=== PATIENT | male | born 1950 | race Caucasian/White ===

== ENCOUNTER → 2017-10-30 | Outpatient (CLI) | payer BC, MEDICARE, SELFPAY | PROVIDERS: Family Provider Family Medicine; Visit Provider Internal Medicine | DX: E83.119 Hemochromatosis, unspecified (principal) | CPT/HCPCS: 76705 ==

== ENCOUNTER → 2018-02-15 12:51 | Outpatient (CLI) | payer BC, MEDICARE, SELFPAY ==
--- NOTE | 2018-02-15 13:01 | CT_ITS ---
EXAM: CT LUNG LOW DOSE WO CONTRAST COMPARISON: None HISTORY: 67-year-old male with 60 pack-year smoking history asymptomatic ORDERING PHYSICIAN: Shirley Almanzar MD PATIENT AGE: 67 years TECHNIQUE: The exam was performed on a GE Light Speed [address] scanner using 2.90 mGy CTDI. A low dose helical CT CHEST was performed on a multi-detector scanner. All CT scans at the facility use one or more dose reduction, viz: automated exposure control; ma/kV adjustment per patient size (including targeted exams where dose is matched to indication; i.e. head); or iterative reconstruction technique. The LDCT was performed in a facility that meets the criteria for the screening program. Data regarding this exam was submitted to ACR which is an approved registry. The order for this exam indicates that it came as a result of a lung cancer screening counseling shard decision-making visit that included all the elements required of such a visit including smoking cessation. The radiologist interpreting this exam meets the [facility] criteria for the LDCT lung cancer screening program. The exam is reported using the Lung-RADS classification scale and reported to the ACR registry. NOTE: This study was performed for the specific purposes of lung cancer screening and is not an alternative to diagnostic chest CT. RADIATION DOSE: CTDI vol(CT dose Index-volume) = 2.90mG DLP (Dose Length Product) = 82.47 mGcm FINDINGS: Centrilobular emphysematous changes. There are scattered calcified and noncalcified pulmonary nodules. Noncalcified nodules include a well-circumscribed 8 mm nodule is present in the right upper lobe medially, 4 mm nodule right middle lobe, 3 mm nodule right middle lobe, 3 mm nodule right lower lobe, 4 mm nodule left upper lobe subpleural region, 5 mm subpleural nodule left upper lobe laterally. There are atelectatic or fibrotic changes in the left lung base with subpleural thickening in the left lower lobe laterally with some coarse calcification. Fibrotic changes are present in the lung bases. Scattered calcified nodes in the mediastinum and mamie. Coronary artery calcifications are noted. IMPRESSION: 1. Lung RADS Category: 3, probably benign right upper lobe nodule and other smaller nodules 2. Other findings: Emphysema, COPD, coronary artery calcifications and old granulomatous disease RECOMMENDATIONS: [address] follow-up
== END ==
PROVIDERS: Family Provider Family Medicine; PCP Physician Assistant; Visit Provider Family Medicine
DX: Z87.891 Personal history of nicotine dependence (principal); Z12.2 Encounter for screening for malignant neoplasm of respiratory organs

== ENCOUNTER → 2018-04-18 13:24 | Outpatient (CLI) | payer BC, MEDICARE, SELFPAY ==
[2018-04-18 14:30] LABS: Ferritin 61 ng/mL (8-388)
== END ==
PROVIDERS: Visit Provider Physician Assistant
DX: E83.110 Hereditary hemochromatosis (principal)
CPT/HCPCS: 36415; 82728

== ENCOUNTER → 2018-06-19 08:26 | Outpatient (CLI) | payer BC, SELFPAY ==
--- NOTE | 2018-06-19 08:30 | CT_ITS ---
CT abdomen w con CLINICAL INDICATION: Pancreatic mass evaluation, abnormal ultrasound ITS.REASON: PACREATIC LESION ORDERING PHYSICIAN: Pito Antonio PATIENT AGE: 68 years COMPARISON: 07/28/2016 TECHNIQUE: Axial images obtained with sagittal and coronal reformats. All CT scans at the facility use one or more dose reduction, viz: automated exposure control, ma/kV adjustment per patient size (including targeted exams where dose is matched to indication, i.e. head), or iterative reconstruction technique. PROCEDURE: Oral Contrast: None IV Contrast: 75 mL of [id number]. FINDINGS: Images are obtained at 30 seconds, 60 seconds, and 5 minute delayed There are mild atelectatic or fibrotic changes in the lung bases.. There is some mild pleural calcification in the left lower lateral hemithorax which was present on the previous exam and not significantly changed. There is slight increased pleural thickening in this area with some pleural calcification present somewhat more inferior and medial to this region. There are coronary artery calcifications There is a stable 5 mm isodensity in the hepatic dome anteriorly. The spleen and adrenal glands are unremarkable. There is a small hiatal hernia. There remains a mild fullness in the pancreatic tail. This however is felt to represent a normal variant not significant change from 07/28/2016. No pancreatic masses, ductal dilatation, or peripancreatic fluid collections evident. There are gallstones noted. No renal mass or hydronephrosis evident. There is a 1 cm cyst in the left kidney anteriorly. There is mild dilatation of the in the renal abdominal aorta and up to 2.5 cm. Previously measured 2.3 cm. IMPRESSION: 1. No change mild fullness in the pancreatic tail. No pancreatic mass or ductal dilatation evident. 2. Cholelithiasis. 3. Mild pleural thickening of the left lower hemithorax posterolaterally with some calcification. Thickening slightly greater when compared to the previous exam. This may be of inflammatory in nature. Short-term CT follow-up in 3 months suggested as neoplasm/mesothelioma be included in the differential diagnosis.. Standard chest CT is suggested without and with contrast in August 2018 which would conform to the LDCT CT exam of 02/15/2018 which recommended a 6 month follow-up
[2018-06-19 08:59] LABS: Blood Urea Nitrogen 15 mg/dL (7-18); Creatinine,Serum 1.09 mg/dL (0.70-1.30); Estimated Glomerular Filt Rate 67 ml/min (>60); GFR (African American) 82 ML/MIN (>60)
== END ==
PROVIDERS: Family Provider Family Medicine; PCP Physician Assistant; Visit Provider Internal Medicine Gastroenterology
DX: K86.9 Disease of pancreas, unspecified (principal)
CPT/HCPCS: 36415; 74160; 82565; 84520; Q9967

== ENCOUNTER → 2018-06-27 09:48 | Outpatient (CLI) | payer BC, SELFPAY ==
[2018-06-27 10:43] VITALS: PULSE 75
== END ==
PROVIDERS: Family Provider Family Medicine; PCP Family Medicine; Visit Provider Family Medicine
DX: R06.09 Other forms of dyspnea (principal)
CPT/HCPCS: 94060; 94640; 94726; 94729

== ENCOUNTER → 2018-12-11 13:51 | Outpatient (CLI) | payer BC, SELFPAY ==
[2018-12-11 15:07] LABS: Ferritin 42 ng/mL (8-388)
== END ==
PROVIDERS: Visit Provider Physician Assistant
DX: E83.119 Hemochromatosis, unspecified (principal)
CPT/HCPCS: 36415; 82728

== ENCOUNTER → 2018-12-31 15:04 | Outpatient (CLI) | payer BC, SELFPAY ==
--- NOTE | 2018-12-31 15:09 | CT_ITS ---
CT chest wo con HISTORY: Pulmonary nodule follow-up, Follow-up abnormal CT scan. Pulmonary nodule. Emphysema, previous smoker ITS.REASON: ABNORMAL CXR, CHEST PAIN ORDERING PHYSICIAN: Shirley Almanzar MD PATIENT AGE: 68 years COMPARISON: 02/15/2018 Technique: Axial images obtained with sagittal and coronal reformats. All CT scans at the facility use one or more dose reduction, viz: automated exposure control, ma/kV adjustment per patient size (including targeted exams where dose is matched to indication, i.e. head), or iterative reconstruction technique. FINDINGS: There are scattered small axillary and mediastinal lymph nodes many of which contain calcification. Calcified hilar nodes are present. There are coronary artery calcifications. Normal heart size. No evidence of pericardial effusion. Centrilobular emphysema/COPD. Diffuse small reticular nodular opacities noted.. There are numerous bilateral pulmonary nodules some of which are calcified. An 8 mm nodule present in the right upper lobe medially containing a small central focus of calcification. A flat like nodular opacity is present in the right upper lobe laterally at 7 x 3 mm. There is a pleural-based nodular density in the left lower lobe laterally at 2 x 1.1 cm. This is similar to the previous exam. There is a partially calcified area of pleural thickening in the left lower lobe posterior laterally which is not significantly changed. Pleural thickening involves the left lung base posteriorly unchanged. A 4 mm noncalcified nodule present left lung base posteriorly medially. There are mild atelectatic changes in the left lower lobe Upper abdominal images shows cholelithiasis and nonobstructing bilateral renal calculi. IMPRESSION: 1. There are multiple bilateral pulmonary nodular opacities noted. These are nonspecific. Some are calcified. Pleural thickening is noted in the left lower chest posteriorly and posterior laterally which appears similar when compared to the previous exam. Continued follow-up is recommended to confirm stability. Continued six-month follow-up suggested. 2. Cholelithiasis. 3. Nonobstructing bilateral renal calculi
== END ==
PROVIDERS: PCP Family Medicine; Visit Provider Family Medicine
DX: R07.9 Chest pain, unspecified (principal); R93.89 Abnormal findings on diagnostic imaging of other specified body structures
CPT/HCPCS: 71250

== ENCOUNTER 2019-01-01 15:19 | Inpatient (IN) ==
--- NOTE | 2019-01-01 15:45 | Emergency Department Note ---
ED Disposition Clinical Impression: Afib, Atrial fibrillation with rapid ventricular response Disposition: Admitted as Observation Condition on Discharge: Good Referrals: Shirley Almanzar MD [Primary Care Provider] - Time of Disposition: 18:22 - Critical Care Critical Care Time: No Attestation: On 01/01/19, the high probability of a clinically significant, sudden or life t hreatening deterioration of the following system(s) required my full and direct attention, intervention and personal management. The time I documented below is in addition to time spent performing reported procedures but includes the following listed in this critical care notation. Medical Decision Making - Medical Records Medical records reviewed: Yes: I reviewed the patient's medical records. - Woodrow Inquiry Pt receiving controlled substance: No Woodrow was queried for this patient: No Vital Signs: 01/01/19 15:21 01/01/19 16:10 01/01/19 16:36 Temperature 98.4 F Temperature Source Oral Pulse Rate [Right] 140 H 110 H 149 H Respiratory Rate 20 20 18 Blood Pressure [Left Arm] 121/73 118/70 95/65 L Blood Pressure Mean [Left Arm] 89 86 75 Blood Pressure Source [Left Arm] Automatic Cuff Automatic Cuff Automatic Cuff Blood Pressure Position [Left Arm] Supine Sitting Sitting 02 Sat by Pulse Oximetry 96 92 L Oxygen Delivery Method Room Air Room Air 01/01/19 17:34 Temperature Temperature Source Pulse Rate [Right] 149 H Respiratory Rate Blood Pressure [Left Arm] 105/67 L Blood Pressure Mean [Left Arm] 79 Blood Pressure Source [Left Arm] Automatic Cuff Blood Pressure Position [Left Arm] Sitting 02 Sat by Pulse Oximetry 93 L Oxygen Delivery Method Room Air - Lab Data Lab results reviewed: Yes: I reviewed the patient's lab results. Lab Results 01/01/19 15:30: WBC 2.5 L, RBC 5.09, Hgb 16.7, Hct 48.9, MCV 96.2 H, MCH 32.9 H, MCHC 34.2, RDW 13.8, Plt Count 285, MPV 6.9 L, Neut % (Auto) 60.5, Lymph % (Auto) 24.4, [place] % (Auto) 2.5, Eos % (Auto) 11.0, Baso % (Auto) 1.6, Neut # (Auto) 1.5 L, Lymph # (Auto) 0.6 L, [place] # (Auto) 0.1, Eos # (Auto) 0.3, Baso # (Auto) 0.0 01/01/19 15:30: Sodium 135 L, Potassium 3.7, Chloride 100, Carbon Dioxide 26, Anion Gap 12.7, BUN 18, Creatinine 1.19, Estimated Creat Clear 66, Estimated GFR 61, Est GFR ( Amer) 74, Glucose 299 H, Calcium 9.4, Magnesium 2.2, Total Bilirubin 1.0, AST 27, ALT 28, Alkaline Phosphatase 190 H, Troponin I < 0.02, Total Protein 8.5 H, Albumin 3.7, Globulin 4.8 H, Albumin/Globulin Ratio 0.8 L, TSH 3.06 Result diagrams: 01/01/19 15:30 01/01/19 15:30 Orders (Tests/Meds): ED MEDICATIONS Generic Name Dose Route Start Last Admin Trade Name Freq PRN Reason Stop Dose Admin Enoxaparin Sodium 80 mg 01/01/19 17:45 01/01/19 18:03 Lovenox 80mg/0.8ml Syringe SQ 01/31/19 17:44 80 mg Q12H MARLEN Administration Diltiazem HCl 125 mg/ Sodium 125 mls @ 5 mls/hr 01/01/19 15:30 01/01/19 15:36 Chloride IV 01/31/19 15:29 5 mls/hr .Q25H MARLEN Administration Protocol 5 MG/HR Sodium Chloride 500 mls @ 999 mls/hr 01/01/19 16:45 01/01/19 16:39 Sod Chlor 0.9% 1000ml Bag IV 01/01/19 17:15 999 mls/hr .Q31M MARLEN Administration Discontinued Medications Generic Name Dose Route Start Last Admin Trade Name Freq PRN Reason Stop Dose Admin Digoxin 250 mcg 01/01/19 16:09 01/01/19 18:03 Digoxin Injection 0.25mg/Ml IV 01/01/19 16:10 250 mcg ONCE ONE Administration Diltiazem HCl 10 mg 01/01/19 15:37 01/01/19 15:41 Cardizem 125mg/25ml Vial IV 01/01/19 15:38 10 mg ONCE ONE Administration ORDERS Category Date Time Status CA echo doppler complete Routine Y 01/02/19 08:00 Ordered EKG Request [ECG Request by /Nse] Stat Y 01/01/19 15:39 Ordered Chest Pain HPI - General Chief Complaint: Chest Pain Stated Complaint: "heart doesnt feel right" Time Seen by Provider: 01/01/19 15:42 Mode of Arrival: Ambulatory Limitations: No Limitations Description of Symptoms (Recalled from ER Triage Doc. by RN): patient presents to er with "heart feeling strange and not jsut right." pt denies that his chest is hurting but states that he is having a numb type of feeling. - Related Data Home Medications Medication Instructions Recorded Confirmed Atenolol [Atenolol 25mg Tab] 1 tab PO BID 01/01/19 01/01/19 Ezetimibe 1 tab PO DAILY 01/01/19 01/01/19 Insulin Lispro Protamin/Lispro 12 unit SQ BID 01/01/19 01/01/19 [HumaLOG Mix 75/25 3mL flexpen] Levothyroxine Sodium [Synthroid 25 mcg PO DAILY 01/01/19 01/01/19 25mcg (0.025mg) tablet] Metformin HCl 1 tab PO BID 01/01/19 01/01/19 Allergies Allergy/AdvReac Type Severity Reaction Status Date / Time cephalexin [From Keflex] Allergy Unknown Verified 01/01/19 15:39 allergy reaction [facility] History - Hepatitis A Screen Drug use history?: No High risk sexual behaviors?: No History of sexually transmitted infection?: No Currently employed?: No Childcare worker?: No Do you have indoor plumbing?: Yes Do you have electricity?: Yes Attestation statement:: This patient has been screened for Hepatitis A risk factors. I have reviewed the patient's past medical history: Yes Medical History: Reports:: Diabetes Mellitus Type 2 Denies:: Diabetes Mellitus Type 1, Internal Pacemaker Other Surgeries: No: Pacemaker Amputation: No Fractures: No - Social History Educational Level: Completed High School Smoking Status: Former smoker Tobacco Type: cigarettes # Packs/Day (cigarettes): 1 Smoking End Date: 2004 Alcohol Intake: never Occupational Status: other Household Members: spouse - Psychiatric History Expresses thoughts of harming self/others: None Suicide Plan Description: No Plan ROS Obtained: Yes All systems reviewed & no additional complaints - Constitutional Constitutional: Reports system reviewed and no additional complaints, except as docu, Denies chills, Denies fever(s) - Eyes Eyes: Reports system reviewed and no additional complaints, except as docu, Denies change in vision - ENT Ears, Nose, Mouth, and Throat: Denies sore throat, Denies throat swelling - Cardiovascular Cardiovascular: Reports system reviewed and no additional complaints, except as docu, Denies chest pain, Denies chest pain at rest, Reports irregular heart rhythm, Denies leg edema, Reports lightheadedness, Reports rapid heart rate - Gastrointestinal Gastrointestingal: Reports: system reviewed and no additional complaints, except as docu. Denies: abdominal pain, diarrhea, nausea - Genitourinary Male Genitourinary: Reports system reviewed and no additional complaints, except as docu, Denies difficulty urinating, Denies flank pain - Musculoskeletal Musculoskeletal: Denies joint pain, Denies joint stiffness, Denies joint swelling, Denies numbness, Denies stiffness, Denies tingling - Integumentary/Breasts Skin/Breast: Denies rash, Denies skin pain - Neurologic Neurologic: Denies unsteadiness, Denies dizziness, Denies focal weakness, Denies syncope, Denies tingling, Denies tremor(s), Denies vertigo, Denies weakness Physical Exam - General General appearance: alert, in no apparent distress - Head Head exam: atraumatic, normocephalic - Eye Eye exam: Present: normal appearance, PERRL, EOMI - ENT ENT exam: Present: normal exam, normal oropharynx, mucous membranes moist, TM's normal bilaterally, normal external ear exam - Neck Neck exam: Present: normal inspection, full ROM, trachea midline. Absent: meningismus, lymphadenopathy - Chest Chest inspection: Present: normal inspection, symmetric chest wall rise. Absent: tenderness - Respiratory Respiratory exam: Present: normal lung sounds bilaterally. Absent: respiratory distress - Cardiovascular Cardiovascular exam: Present: tachycardia. Absent: regular rate, normal rhythm, JVD - Abdominal Exam Abdominal exam: Present: soft, normal bowel sounds. Absent: distention, tenderness, guarding - exam: Present: normal inspection - Extremities Exam Extremities exam: Present: normal inspection, full ROM, normal capillary refill. Absent: calf tenderness - Back Exam Back exam: Present: normal inspection. Absent: tenderness - Neurological Exam Neurological exam: Present: alert, oriented X3 - Psychiatric Psychiatric exam: Present: normal affect, normal mood - Skin Skin exam: Present: warm, dry, intact, normal color - Lymphatic Lymphatic Findings: no adenopathy
[2019-01-01 15:51] LABS: Basophils % 1.6 % (0.1-2.0); Eosinophils # 0.3 K/mm3 (0.0-0.4); Hematocrit 48.9 % (42.0-52.0); Hemoglobin 16.7 g/dL (14.1-18.0); Lymphocytes # 0.6 K/mm3 (0.7-4.5); Lymphocytes % 24.4 % (10-50); Mean Corpuscular HGB Conc 34.2 g/dL (31.8-35.4); Mean Corpuscular Hemoglobin 32.9 pg (27.0-31.2); Mean Corpuscular Volume 96.2 fl (80-94); Mean Platelet Volume 6.9 fl (7.4-10.4); Monocytes # 0.1 K/mm3 (0.1-1.0); Monocytes % 2.5 % (1.7-9.3); Neutrophils # 1.5 K/mm3 (1.8-7.8); Neutrophils % 60.5 % (37.0-80.0); Platelet Count 285 K/mm3 (142-424); Red Blood Count 5.09 M/mm3 (4.60-6.20); Red Cell Distribution Width 13.8 % (11.5-17.5); White Blood Count 2.5 K/mm3 (4.8-10.8)
[2019-01-01 16:07] LABS: Alanine Aminotransferase 28 U/L (12-78); Albumin Level 3.7 gm/dL (3.4-5.0); Albumin/Globulin Ratio 0.8 (1.1-1.8); Alkaline Phosphatase 190 U/L (46-116); Anion Gap 12.7 mEq/L (5-15); Blood Urea Nitrogen 18 mg/dL (7-18); Calcium 9.4 mg/dL (8.5-10.1); Carbon Dioxide 26 mmol/L (21.0-32.0); Chloride 100 mmol/L (98-107); Globulin 4.8 gm/dl (1.3-3.2); Glucose 299 mg/dL (74-106); Sodium 135 mmol/L (136-145); Thyroid Stimulating Hormone 3.06 uIU/ml (0.358-3.740); Total Protein,Serum 8.5 gm/dL (6.4-8.2)
[2019-01-01 16:11] LABS: Potassium 3.7 mmoL/L (3.5-5.1)
[2019-01-01 16:12] LABS: Aspartate Amino Transferase 27 U/L (15-37)
--- NOTE | 2019-01-01 16:16 | Consult Report ---
History of Present Illness Consult date: 01/01/19 Requesting physician: Shirley Almanzar Consult reason: atrial fibrillation Chief complaint: Palpitations Additional Medical History:: 1. Hypertension, controlled on meds. 2. Diabetes mellitus, treated for 5 years, the last 2 with insulin 3. Hypothyroidism, on replacement. 4. History of atrial flutter and atrial fibrillation starting in 2011, controlled on atenolol therapy 5. History of abnormal stress test 2011 A. Cardiac cath reportedly without significant disease or need for intervention, 2011 6. Hemochromatosis, controlled with regular phlebotomy 7. History of nephrolithiasis 8. 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 Degenerative arthritis of the knees 10. History of tobacco use discontinued approximately 1999, approximately 07-26-mtnp-year history A. Presumed COPD History of present illness: 68-year-old white male with history of hypertension, diabetes and atrial fibrillation presented to the emergency department with 1-2-week history of intermittent palpitations. Patient describes the symptoms as a fluttering in the chest with some shortness of breath. He relates most of the episodes occur around significant stress in his life. Today while trying to get a bull into a trailer he developed the sensation in the chest with some lightheadedness but no dizziness. Patient came to the emergency department for further evaluation where heart rate was noted to be approximately 190 bpm. He has been started on IV Cardizem with improvement in heart rate into the 150s. EKG shows atrial fibrillation with a rapid ventricular response. Patient denies missing any dose of his medications. He does relate over the last week he has had one episode each day of the fast heart rate but it has not been sustained. Cardiology consulted for evaluation recommendations. Patient does relate occasional left arm discomfort with some left-sided jaw discomfort with the palpitations. Again he states this does not seem to be exertion related only related to the episodes of palpitations. [facility] History Medical History: Reports:: Diabetes Mellitus Type 2 Denies:: Diabetes Mellitus Type 1, Internal Pacemaker *Have you ever received a pneumonia vaccine?: Yes *Have you received a flu vaccine this season?: Yes Other Surgeries: No: Pacemaker Amputation: No Fractures: No - *Social History Educational Level: Completed High School Smoking Status: Former smoker Tobacco Type: cigarettes # Packs/Day (cigarettes): 1 Smoking End Date: 2004 Alcohol Intake: never *Occupational Status:: other Household Members: spouse *Travel in the last 8 weeks: None - Psychiatric History Expresses thoughts of harming self/others: None Suicide Plan Description: No Plan Family Hx:: Non-contributory Meds Home Medications Medication Instructions Recorded Confirmed Type Atenolol [Atenolol 25mg Tab] 1 tab PO BID 01/01/19 01/01/19 History Ezetimibe 1 tab PO DAILY 01/01/19 01/01/19 History Insulin Lispro Protamin/Lispro 12 unit SQ BID 01/01/19 01/01/19 History [HumaLOG Mix 75/25 3mL flexpen] Levothyroxine Sodium [Synthroid 25 mcg PO DAILY 01/01/19 01/01/19 History 25mcg (0.025mg) tablet] Metformin HCl 1 tab PO BID 01/01/19 01/01/19 History Allergies Allergy/AdvReac Type Severity Reaction Status Date / Time cephalexin [From Keflex] Allergy Unknown Verified 01/01/19 15:39 allergy reaction Review of Systems - *Cardiovascular Reports rapid, pounding, or irregular heartbeat, Reports fast heart rate - *Respiratory Reports shortness of breath with activity - *Gastrointestinal Denies abdominal pain, Denies loose stools - *Genitourinary Denies blood in urine - *Musculoskeletal Reports joint pain - *Neurologic Denies unsteadiness, Denies dizziness, Denies localized weakness, Denies numbness, Denies fainting, Denies tingling, Denies tremor(s), Denies dizziness, Denies weakness Exam Vital signs and Labs for Last 24 Hours: Temp Pulse Resp BP Pulse Ox 98.4 F 140 H 20 121/73 96 01/01/19 15:21 01/01/19 15:21 01/01/19 15:21 01/01/19 15:21 01/01/19 15:21 Laboratory Results - last 24 hr 01/01/19 15:30: WBC 2.5 L, RBC 5.09, Hgb 16.7, Hct 48.9, MCV 96.2 H, MCH 32.9 H, MCHC 34.2, RDW 13.8, Plt Count 285, MPV 6.9 L, Neut % (Auto) 60.5, Lymph % (Auto) 24.4, [place] % (Auto) 2.5, Eos % (Auto) 11.0, Baso % (Auto) 1.6, Neut # (Auto) 1.5 L, Lymph # (Auto) 0.6 L, [place] # (Auto) 0.1, Eos # (Auto) 0.3, Baso # (Auto) 0.0 I & O for Last 24 hours: Intake & Output 12/30/18 12/31/18 01/01/19 01/02/19 11:59 11:59 11:59 11:59 Weight 170 lb - *Routine HEENT Exam Head: Present: normocephalic Eye: Present: EOMI, PERRL ENT: Present: mucous membranes moist - *Routine Neck Exam Present: supple. Absent: JVD, carotid bruit - *Routine Respiratory Exam Present: decreased breath sounds, rhonchi. Absent: accessory muscle use, rales, wheezes - *Routine Cardiovascular Exam Present: tachycardia, irregularly irregular. Absent: murmur, gallop, rubs - *Routine Abdominal Exam Present: soft. Absent: tenderness, distended, guarding - *Routine Extremities Exam Absent: edema, calf tenderness - *Routine Neurological Exam Present: alert, oriented X3, moving all extremities Assessment and Plan (1) Atrial fibrillation with rapid ventricular response Current visit: Yes Status: Acute Category: Medical Code(s): I48.91 - Unspecified atrial fibrillation (2) Hypertension Current visit: Yes Status: Acute Category: Medical Code(s): I10 - Essential (primary) hypertension (3) Hyperlipidemia associated with type 2 diabetes mellitus Current visit: Yes Status: Acute Category: Medical Code(s): E11.69 - Type 2 diabetes mellitus with other specified complication; E78.5 - Hyperlipidemia, u nspecified (4) Ex-smoker for more than 1 year Current visit: Yes Status: Acute Category: Social Hx Code(s): Z87.891 - Personal history of nicotine dependence (5) Diabetes Current visit: Yes Status: Acute Category: Medical Code(s): E11.9 - Type 2 diabetes mellitus without complications - Assessment and plan all Dx Assessment and Plan for all problems:: 1. Continue IV Cardizem, titrated according to blood pressure and heart rate. 2. IV digoxin 0.25 mg 1 dose now 3. Subcu Lovenox 1 mg/kg every 12 hours starting now for thrombus prophylaxis until echo obtained and decision on further evaluaiton. CHADS-VASc score of 3 places him at increased risk of TIA/CVA so he will need fci anticoagulation. 4. Echocardiogram when heart rate improved to assess need for any further cardiac workup or consideration of ablation therapy. 5. Serial troponins to evaluate for ND/CAD/cardiac strain. 6. Thyroid panel to assess for hyperthyroidism since patient is on levothyroxine
--- NOTE | 2019-01-01 21:09 | Progress Note ---
Internal Medicine - PN: Subj *Date: 01/01/19 *Time: 21:05 Interval history: This 68-year-old white male with diabetes and an underlying autoimmune disorder is admitted with atrial fibrillation with rapid ventricular response. He felt odd starting about 2 PM. He was not having chest pain per se but he felt some chest discomfort and awareness of something inappropriate. He had some left arm discomfort. He has had similar episodes in the past off and on. He was scheduled for Cardiolite treadmill for in the morning. But he presented to the emergency room this evening. On presentation his heart rate was in the 150 range. He received diltiazem IV and a drip. He also received IV digoxin. He was seen in consultation by cardiology (Damion Jorge PA-C for Dr. Regalado). With treatment in the emergency room the patient's heart rate gradually slowed. He did register some low blood pressures. I believe he did receive 50 mg of additional atenolol p.o. He normally takes 50 mg daily. Just prior to transfer to the medical floor he converted to normal sinus rhythm. At this point he is in normal sinus rhythm with a rate of 64. He is comfortable at this time. His cardiac enzymes have been negative. Exam Vital signs and Labs for Last 24 Hours: Temp Pulse Resp BP Pulse Ox 98.6 F 62 16 106/62 L 98 01/01/19 20:16 01/01/19 20:16 01/01/19 20:16 01/01/19 20:16 01/01/19 20:16 Laboratory Results - last 24 hr 01/01/19 15:30: WBC 2.5 L, RBC 5.09, Hgb 16.7, Hct 48.9, MCV 96.2 H, MCH 32.9 H, MCHC 34.2, RDW 13.8, Plt Count 285, MPV 6.9 L, Neut % (Auto) 60.5, Lymph % (Auto) 24.4, Tillman % (Auto) 2.5, Eos % (Auto) 11.0, Baso % (Auto) 1.6, Neut # (Auto) 1.5 L, Lymph # (Auto) 0.6 L, Tillman # (Auto) 0.1, Eos # (Auto) 0.3, Baso # (Auto) 0.0 01/01/19 15:30: Sodium 135 L, Potassium 3.7, Chloride 100, Carbon Dioxide 26, Anion Gap 12.7, BUN 18, Creatinine 1.19, Estimated Creat Clear 66, Estimated GFR 61, Est GFR ( Amer) 74, Glucose 299 H, Calcium 9.4, Magnesium 2.2, Total Bilirubin 1.0, AST 27, ALT 28, Alkaline Phosphatase 190 H, Troponin I < 0.02, Total Protein 8.5 H, Albumin 3.7, Globulin 4.8 H, Albumin/Globulin Ratio 0.8 L, TSH 3.06 I & O for Last 24 hours: Intake & Output 12/30/18 12/31/18 01/01/19 01/02/19 11:59 11:59 11:59 11:59 Intake Total 1000 / 1000 Balance 1000 / 1000 Weight 171 lb 7 oz - Constitutional no acute distress - *Routine HEENT Exam Eye: Present: PERRL ENT: Present: mucous membranes moist Comments: He is normocephalic except for a cochlear implant device at the right mastoid area. - *Routine Neck Exam Present: supple, full ROM - Routine Chest/Breast/Axilla Exam Chest wall: Absent: tenderness - *Routine Respiratory Exam Present: CTA bilaterally - *Routine Cardiovascular Exam Present: RRR (Rate of 64. No murmurs. No ectopics.) - *Routine Abdominal Exam Present: soft. Absent: tenderness Comments: There are some nummular scars of the abdomen. - *Routine Extremities Exam Absent: edema, calf tenderness - *Routine Neurological Exam Present: alert, oriented X3 Assessment and Plan (1) Atrial fibrillation with rapid ventricular response Current visit: Yes Status: Acute Category: Medical Code(s): I48.91 - Unspecified atrial fibrillation (2) Hypertension Current visit: Yes Status: Acute Category: Medical Code(s): I10 - Essential (primary) hypertension (3) Hyperlipidemia associated with type 2 diabetes mellitus Current visit: Yes Status: Acute Category: Medical Code(s): E11.69 - Type 2 diabetes mellitus with other specified complication; E78.5 - Hyperlipidemia, unspecified (4) Ex-smoker for more than 1 year Current visit: Yes Status: Acute Category: Social Hx Code(s): Z87.891 - Personal history of nicotine dependence (5) Diabetes Current visit: Yes Status: Acute Category: Medical Code(s): E11.9 - Type 2 diabetes mellitus without complications (6) Hemochromatosis Current visit: Yes Status: Acute Category: Medical Code(s): E83.119 - Hemochromatosis, unspecified (7) Cochlear implant in place Current visit: Yes Status: Acute Category: Medical Code(s): Z96.21 - Cochlear implant status - Assessment and plan all Dx Assessment and Plan for all problems:: He remains on Cardizem drip at this point. Cardiology is aware of admission. They plan further evaluation in the morning. He is receiving Lovenox injections.
[2019-01-02 07:12] LABS: Basophils % 1.6 % (0.1-2.0); Eosinophils # 0.4 K/mm3 (0.0-0.4); Eosinophils % 16.6 % (0.1-12.0); Hematocrit 42.1 % (42.0-52.0); Lymphocytes # 0.8 K/mm3 (0.7-4.5); Lymphocytes % 33.7 % (10-50); Mean Corpuscular HGB Conc 32.7 g/dL (31.8-35.4); Mean Corpuscular Hemoglobin 32.4 pg (27.0-31.2); Mean Corpuscular Volume 99.3 fl (80-94); Mean Platelet Volume 7.7 fl (7.4-10.4); Monocytes # 0.1 K/mm3 (0.1-1.0); Monocytes % 3.2 % (1.7-9.3); Neutrophils % 44.9 % (37.0-80.0); Platelet Count 242 K/mm3 (142-424); Red Blood Count 4.24 M/mm3 (4.60-6.20); Red Cell Distribution Width 13.8 % (11.5-17.5); White Blood Count 2.2 K/mm3 (4.8-10.8)
[2019-01-02 07:22] LABS: Hemoglobin 13.8 g/dL (14.1-18.0)
[2019-01-02 07:34] LABS: Anion Gap 14.4 mEq/L (5-15); Potassium 4.4 mmoL/L (3.5-5.1)
--- NOTE | 2019-01-02 07:39 | Pharmacy Consult Notes ---
[facility] Pharmacy VTE Monitoring - Patient Demographics Admission date: 01/01/19 Report Date: 01/02/19 Time: 07:39 Allergies/Adverse Reactions: Patient Allergies cephalexin [From Keflex] Allergy (Verified 01/01/19 15:39) Unknown allergy reaction Height: 1.65 m Weight: 77.763 kg Patient Problems: Current Active Problems Atrial fibrillation with rapid ventricular response (Acute) Hypertension (Acute) Hyperlipidemia associated with type 2 diabetes mellitus (Acute) Ex-smoker for more than 1 year (Acute) Diabetes (Acute) Afib (Acute) Hemochromatosis (Acute) Cochlear implant in place (Acute) - VTE Risk Labs: VTE Related Lab Results Hgb 13.8 g/dL (14.1-18.0) L D 01/02/19 05:43 Hct 42.1 % (42.0-52.0) 01/02/19 05:43 Plt Count 242 K/mm3 (142-424) 01/02/19 05:43 BUN 18 mg/dL (7-18) 01/01/19 15:30 Creatinine 1.19 mg/dL (0.70-1.30) 01/01/19 15:30 Estimated Creat Clear 66 mL/min (50-200) 01/01/19 15:30 Was VTE Risk Assessment Performed: Yes VTE Risk Level: Moderate Risk - Prophylaxis VTE Prophylaxis Ordered?: Yes Types of VTE Prophylaxis: Pharmacological Pharmacologic Type: Enoxaparin - VTE Diagnosis Confirmed Treatment or plan recommended: Continue Current Treatment
[2019-01-02 07:40] LABS: Calcium 8.4 mg/dL (8.5-10.1)
--- NOTE | 2019-01-02 08:14 | Progress Note ---
Subjective Date: 01/02/19 Time: 08:09 Principal diagnosis: A. fib with RVR, chest pain Interval history: 68 yo WM in bed in NAD. Telemetry shows NSR with CVR. Troponins normal. No further chest pain overnight. Pt was scheduled for stress test as outpatient today so will continue as planned. Exam Vital signs and Labs for Last 24 Hours: Temp Pulse Resp BP Pulse Ox 97.8 F 71 16 102/58 L 95 01/02/19 07:20 01/02/19 06:36 01/02/19 06:36 01/02/19 06:36 01/02/19 06:36 Laboratory Results - last 24 hr 01/01/19 15:30: WBC 2.5 L, RBC 5.09, Hgb 16.7, Hct 48.9, MCV 96.2 H, MCH 32.9 H, MCHC 34.2, RDW 13.8, Plt Count 285, MPV 6.9 L, Neut % (Auto) 60.5, Lymph % (Auto) 24.4, Martin % (Auto) 2.5, Eos % (Auto) 11.0, Baso % (Auto) 1.6, Neut # (Auto) 1.5 L, Lymph # (Auto) 0.6 L, Martin # (Auto) 0.1, Eos # (Auto) 0.3, Baso # (Auto) 0.0 01/01/19 15:30: Sodium 135 L, Potassium 3.7, Chloride 100, Carbon Dioxide 26, Anion Gap 12.7, BUN 18, Creatinine 1.19, Estimated Creat Clear 66, Estimated GFR 61, Est GFR ( Amer) 74, Glucose 299 H, Calcium 9.4, Magnesium 2.2, Total Bilirubin 1.0, AST 27, ALT 28, Alkaline Phosphatase 190 H, Troponin I < 0.02, Total Protein 8.5 H, Albumin 3.7, Globulin 4.8 H, Albumin/Globulin Ratio 0.8 L, TSH 3.06 01/01/19 21:34: POC Glucose 199 H 01/01/19 21:43: Troponin I < 0.02 01/01/19 21:43: TSH 3.24 01/02/19 00:35: Troponin I < 0.02 01/02/19 05:42: POC Glucose 106 01/02/19 05:43: WBC 2.2 L, RBC 4.24 L, Hgb 13.8 L D, Hct 42.1, MCV 99.3 H, MCH 32.4 H, MCHC 32.7, RDW 13.8, Plt Count 242, MPV 7.7, Neut % (Auto) 44.9, Lymph % (Auto) 33.7, Martin % (Auto) 3.2, Eos % (Auto) 16.6 H, Baso % (Auto) 1.6, Neut # (Auto) 1.0 L, Lymph # (Auto) 0.8, Martin # (Auto) 0.1, Eos # (Auto) 0.4, Baso # (Auto) 0.0 01/02/19 05:43: Sodium 144, Potassium 4.4, Chloride 109 H, Carbon Dioxide 25, Anion Gap 14.4, BUN 11 D, Creatinine 0.87 D, Estimated Creat Clear 79, Estimated GFR 88, Est GFR ( Amer) 106 D, Glucose 107 H D, Calcium 8.4 L D I & O for Last 24 hours: Intake & Output 12/30/18 12/31/18 01/01/19 01/02/19 11:59 11:59 11:59 11:59 Intake Total 1000 / 1000 Output Total 850 / 850 Balance 150 / 150 Weight 171 lb 7.009 oz - *Routine HEENT Exam Head: Present: normocephalic Eye: Present: EOMI, PERRL ENT: Present: mucous membranes moist - *Routine Respiratory Exam Present: CTA bilaterally. Absent: accessory muscle use, rales, rhonchi, wheezes - *Routine Cardiovascular Exam Present: RRR. Absent: murmur, gallop, rubs - *Routine Abdominal Exam Present: soft. Absent: tenderness, distended, guarding - *Routine Extremities Exam Absent: edema, calf tenderness - *Routine Neurological Exam Present: alert, oriented X3, moving all extremities Progress Note: A&P (1) Atrial fibrillation with rapid ventricular response Status: Acute Current Visit: Yes (2) Hypertension Status: Acute Current Visit: Yes (3) Hyperlipidemia associated with type 2 diabetes mellitus Status: Acute Current Visit: Yes (4) Ex-smoker for more than 1 year Status: Acute Current Visit: Yes (5) Diabetes Status: Acute Current Visit: Yes (6) Hemochromatosis Status: Acute Current Visit: Yes (7) Cochlear implant in place Status: Acute Current Visit: Yes Assessment and Plan for All Diagnoses:: Exercise myoview today. Home if normal. Continue home beta andrew (atenolol) Add low dose cardizem CD 120 mg daily. Add Xarelto 20 mg daily with biggest meal of the day (start tonight if discharged home). Will refer for consultation with Cut To Length Operator as outpatient. Recommend 48 hr holter upon discharge to assess for tachy-ana luisa syndrome.
--- NOTE | 2019-01-02 08:17 | History & Physical Report ---
*Admission Date: 01/01/19 *Chief complaint: chest pressure, jaw pain, odd feeling *History of present illness: Mr. Trevino is a 68-year-old white male with diabetes and an underlying autoimmune disorder who was admitted with atrial fibrillation with rapid ventricular response. He felt odd starting about 2 PM yesterday. He was not having chest pain but he felt some chest discomfort and awareness of something inappropriate. He had some left arm discomfort and has had pain in his left jaw. He has had similar episodes in the past off and on. He was scheduled for Cardiolite treadmill today but he presented to the emergency room last night. On presentation, his heart rate was in the 150 range. He received diltiazem IV and a drip. He also received IV digoxin. He was seen in consultation by cardiology (Damion Jorge PA-C for Dr. Regalado). With treatment in the emergency room the patient's heart rate gradually slowed. He did register some low blood pressures. Just prior to transfer to the medical floor he converted to normal sinus rhythm and has remain in NSR throughout the night. He is comfortable at this time. His cardiac enzymes have been negative. Cardiology felt he could be discharged today but wanted to go ahead and do his cardiolite treadmill test today before discharge. [facility] History Medical History: Reports:: Arrhythmia, Atrial Fibrillation, Diabetes Mellitus Type 2, Kidney Stones Denies:: Cancer, Diabetes Mellitus Type 1, Internal Pacemaker, MRSA *Have you ever received a pneumonia vaccine?: Yes *Have you received a flu vaccine this season?: Yes Comment:: steatohepatitis, hemachromatosis, hearing loss with cochlear implants, questionable dx of lupus in 2016, Laterality Cases: Bilateral: Tonsillectomy Other Surgeries: Yes: Cardiac Catheterization, Colonoscopy, Other (left knee, cochlear implant). No: Pacemaker Amputation: No Fractures: No - *Social History Educational Level: Completed College Smoking Status: Former smoker Tobacco Type: cigarettes # Packs/Day (cigarettes): 1 Smoking End Date: 2004 Alcohol Intake: current Alcohol Intake Frequency:: other *Occupational Status:: other Housing: house Household Members: spouse *Travel in the last 8 weeks: None - Psychiatric History Expresses thoughts of harming self/others: None Suicide Plan Description: No Plan Family Hx:: Cancer, Coronary Artery Disease, Diabetes, Hypertension, Stroke Review of Systems - Constitutional Denies headache(s), Denies weakness - Eyes Denies blurry vision, Denies double vision - ENT Denies nasal congestion, Denies sore throat - *Cardiovascular Reports chest pain (more of a pressure - resolved now), Reports shortness of breath, Reports rapid, pounding, or irregular heartbeat, Reports radiating jaw, neck or arm pain, Denies leg swelling - *Respiratory Denies cough - *Gastrointestinal Denies abdominal pain, Denies loose stools, Denies nausea, Denies vomiting - *Genitourinary Denies difficulty urinating, Denies painful urination - *Musculoskeletal Denies joint pain, Denies body aches - *Neurologic Denies unsteadiness, Denies dizziness, Denies localized weakness, Denies numbness, Denies fainting, Denies tingling, Denies tremor(s) Meds Home Medications Medication Instructions Recorded Confirmed Type Atenolol [Atenolol 25mg Tab] 1 tab PO BID 01/01/19 01/01/19 History Ezetimibe 1 tab PO DAILY 01/01/19 01/01/19 History Insulin Lispro Protamin/Lispro 12 unit SQ BID 01/01/19 01/01/19 History [HumaLOG Mix 75/25 3mL flexpen] Levothyroxine Sodium [Synthroid 25 mcg PO DAILY 01/01/19 01/01/19 History 25mcg (0.025mg) tablet] Metformin HCl 500 mg PO BID 01/02/19 01/02/19 History Allergies Allergy/AdvReac Type Severity Reaction Status Date / Time cephalexin [From Keflex] Allergy Unknown Verified 01/01/19 15:39 allergy reaction Exam Vital signs and Labs for Last 24 Hours: Temp Pulse Resp BP Pulse Ox 97.8 F 71 16 102/58 L 95 01/02/19 07:20 01/02/19 06:36 01/02/19 06:36 01/02/19 06:36 01/02/19 06:36 Laboratory Results - last 24 hr 01/01/19 15:30: WBC 2.5 L, RBC 5.09, Hgb 16.7, Hct 48.9, MCV 96.2 H, MCH 32.9 H, MCHC 34.2, RDW 13.8, Plt Count 285, MPV 6.9 L, Neut % (Auto) 60.5, Lymph % (Auto) 24.4, Sierra % (Auto) 2.5, Eos % (Auto) 11.0, Baso % (Auto) 1.6, Neut # (Auto) 1.5 L, Lymph # (Auto) 0.6 L, Sierra # (Auto) 0.1, Eos # (Auto) 0.3, Baso # (Auto) 0.0 01/01/19 15:30: Sodium 135 L, Potassium 3.7, Chloride 100, Carbon Dioxide 26, Anion Gap 12.7, BUN 18, Creatinine 1.19, Estimated Creat Clear 66, Estimated GFR 61, Est GFR ( Amer) 74, Glucose 299 H, Calcium 9.4, Magnesium 2.2, Total Bilirubin 1.0, AST 27, ALT 28, Alkaline Phosphatase 190 H, Troponin I < 0.02, Total Protein 8.5 H, Albumin 3.7, Globulin 4.8 H, Albumin/Globulin Ratio 0.8 L, TSH 3.06 01/01/19 21:34: POC Glucose 199 H 01/01/19 21:43: Troponin I < 0.02 01/01/19 21:43: TSH 3.24 01/02/19 00:35: Troponin I < 0.02 01/02/19 05:42: POC Glucose 106 01/02/19 05:43: WBC 2.2 L, RBC 4.24 L, Hgb 13.8 L D, Hct 42.1, MCV 99.3 H, MCH 32.4 H, MCHC 32.7, RDW 13.8, Plt Count 242, MPV 7.7, Neut % (Auto) 44.9, Lymph % (Auto) 33.7, Sierra % (Auto) 3.2, Eos % (Auto) 16.6 H, Baso % (Auto) 1.6, Neut # (Auto) 1.0 L, Lymph # (Auto) 0.8, Sierra # (Auto) 0.1, Eos # (Auto) 0.4, Baso # (Auto) 0.0 01/02/19 05:43: Sodium 144, Potassium 4.4, Chloride 109 H, Carbon Dioxide 25, Anion Gap 14.4, BUN 11 D, Creatinine 0.87 D, Estimated Creat Clear 79, Estimated GFR 88, Est GFR ( Amer) 106 D, Glucose 107 H D, Calcium 8.4 L D I & O for Last 24 hours: Intake & Output 12/30/18 12/31/18 01/01/19 01/02/19 11:59 11:59 11:59 11:59 Intake Total 1000 / 1000 Output Total 850 / 850 Balance 150 / 150 Weight 171 lb 7.009 oz - Constitutional no acute distress - *Routine HEENT Exam Head: Present: normocephalic Eye: Present: EOMI, PERRL ENT: Present: mucous membranes moist - *Routine Neck Exam Present: supple. Absent: lymphadenopathy - *Routine Respiratory Exam Present: CTA bilaterally - *Routine Cardiovascular Exam Present: RRR - *Routine Abdominal Exam Present: soft, normoactive bowel sounds. Absent: tenderness - *Routine Extremities Exam Absent: cyanosis, clubbing, edema - *Routine Skin Exam Present: warm. Absent: rash - *Routine Neurological Exam Present: alert, oriented X3 H&P: Result - Impressions CXR - Small bilateral pleural effusions versus pleural thickening Assessment and Plan (1) Atrial fibrillation with rapid ventricular response Current visit: Yes Status: Acute Category: Medical Code(s): I48.91 - Unspecified atrial fibrillation (2) Hypertension Current visit: Yes Status: Acute Category: Medical Code(s): I10 - Essential (primary) hypertension (3) Hyperlipidemia associated with type 2 diabetes mellitus Current visit: Yes Status: Acute Category: Medical Code(s): E11.69 - Type 2 diabetes mellitus with other specified complication; E78.5 - Hyperlipidemia, unspecified (4) Ex-smoker for more than 1 year Current visit: Yes Status: Acute Category: Social Hx Code(s): Z87.891 - Personal history of nicotine dependence (5) Diabetes Current visit: Yes Status: Acute Category: Medical Code(s): E11.9 - Type 2 diabetes mellitus without complications (6) Hemochromatosis Current visit: Yes Status: Acute Category: Medical Code(s): E83.119 - Hemochromatosis, unspecified (7) Cochlear implant in place Current visit: Yes Status: Acute Category: Medical Code(s): Z96.21 - Cochlear implant status - Assessment and plan all Dx Assessment and Plan for all problems:: Patient will undergo a stress test today. If normal, cardiology feels he can be discharged. If abnormal, he will need a heart cath.
--- NOTE | 2019-01-02 10:20 | Cardiology Report ---
PROCEDURE: 2-D M-mode and color Doppler study INDICATIONS FOR THE TEST: Chest pain COPD Heart Murmur Tobacco SmokingEX PalpitationsX Fatigue Syncope Edema HypertensionXDiabetes MellitusX Rheumatic Fever SOBXDOE Obesity Hyperlipidemia Family History HD Additional History PAF PATIENT INFORMATION HEIGHT: 68 WEIGHT:170 GENDER: Male B/P:121/73 2-D/M-MODE INTERPRETATION: 2-D MEASUREMENTS OBSERVED VALUES IN CMS Right Ventricular Dimension (RVDd) 2.2 Interventricular Septum (Thickness)(IVsd) .9 Left Ventricular Internal Dimensions(LVIDd) 5.2 Left Ventricular Posterior Wall (Thickness)(LVPWd) 1.1 Aortic Root 3.6 Aortic Cusp Separation 2.1 Left Atrial Dimensions (LAD) 3.5 2D 1. Left atrium is qualitatively mildly enlarged, left ventricle is normal size, there is mild concentric left ventricular hypertrophy, visually estimated ejection fraction of 55% with no regional wall motion abnormality. 2. The right atrium and right ventricle are normal size and contractility. 3. The aortic valve is minimally thickened and fibrosed. 4. The mitral and tricuspid valvular grossly normal. 5. The pulmonic valve is poorly visualized. 6. No significant pericardial effusion noted. DOPPLER INTERROGATION: Doppler interrogation of the aortic, mitral and tricuspid valvular presence of mild mitral and tricuspid regurgitation, tricuspid regurgitation jet velocity is inadequate for calculation of the right ventricular systolic pressure, grade 1 diastolic dysfunction seen without tissue Doppler evidence of raised left atrial pressure. CONCLUSION: 1. Normal left ventricular size, preserved left ventricular systolic function, visually estimated ejection fraction 55% with no regional wall motion abnormality, grade 1 diastolic dysfunction seen without tissue Doppler evidence of raised left atrial pressure. 2. Mild mitral and tricuspid regurgitation 3. No significant pericardial effusion noted.
--- NOTE | 2019-01-03 16:22 | Discharge Summary ---
General - General Admission date:: 01/01/19 Discharge date: 01/30/19 HPI HPI: Mr. Trevino is a 68-year-old white male with diabetes and an underlying autoimmune disorder who was admitted with atrial fibrillation with rapid ventricular response. He felt odd starting about 2 PM yesterday. He was not having chest pain but he felt some chest discomfort and awareness of something inappropriate. He had some left arm discomfort and has had pain in his left jaw. He has had similar episodes in the past off and on. He was scheduled for Cardiolite treadmill today but he presented to the emergency room last night. On presentation, his heart rate was in the 150 range. He received diltiazem IV and a drip. He also received IV digoxin. He was seen in consultation by cardiology (Damion Jorge PA-C for Dr. Regalado). With treatment in the emergency room the patient's heart rate gradually slowed. He did register some low blood pressures. Just prior to transfer to the medical floor he converted to normal sinus rhythm and has remain in NSR throughout the night. He is comfortable at this time. His cardiac enzymes have been negative. Cardiology felt he could be discharged today but wanted to go ahead and do his cardiolite treadmill test today before discharge. Hospital Course Hospital Course: The patient's echo showed an EF of 55% with grade 1 diastolic dysfunction. The patient's stress test showed no evidence of ischemia. Cardiology felt the patient could be discharged home on his atenolol with the addition of a low-dose Cardizem at 120 mg daily and Xarelto 20 mg daily. He will follow-up with them on an outpatient basis and they will refer for consultation with an granulator operator for his A. fib. They did recommend a 48-hour Holter upon discharge to assess for tachybradycardia syndrome. Objective Vital signs: Temp Pulse Resp BP Pulse Ox 98.1 F 75 16 109/59 L 93 L 01/02/19 13:30 01/02/19 13:30 01/02/19 13:30 01/02/19 13:30 01/02/19 13:30 Narrative: - Constitutional no acute distress - *Routine HEENT Exam Head: Present: normocephalic Eye: Present: EOMI, PERRL ENT: Present: mucous membranes moist - *Routine Neck Exam Present: supple. Absent: lymphadenopathy - *Routine Respiratory Exam Present: CTA bilaterally - *Routine Cardiovascular Exam Present: RRR - *Routine Abdominal Exam Present: soft, normoactive bowel sounds. Absent: tenderness - *Routine Extremities Exam Absent: cyanosis, clubbing, edema - *Routine Skin Exam Present: warm. Absent: rash - *Routine Neurological Exam Present: alert, oriented X3 DS: Diagnosis - Discharge Diagnosis (1) Atrial fibrillation with rapid ventricular response Status: Acute (2) Hypertension Status: Acute (3) Hyperlipidemia associated with type 2 diabetes mellitus Status: Acute (4) Ex-smoker for more than 1 year Status: Acute (5) Diabetes Status: Acute (6) Hemochromatosis Status: Acute (7) Cochlear implant in place Status: Acute Discharge Plan - Patient Discharge Instructions ACTIVITY: Continue current activity DIET: low fat, low cholesterol Patient Instructions: High Triglycerides, Atrial Fibrillation, High Blood Pressure, Malignant Hypertension, DI for Atrial Fibrillation, DI for Malignant Hypertension - Follow up Plan Follow up with: Shirley Almanzar MD [Primary Care Provider] - 01/08/19 Unknown provider or service follow up:: 01/02/19 13:[address] Regalado 2 weeks Disposition: Home, Self-Long-Term Medications: Home Medications Medication Instructions Recorded Confirmed Type Ezetimibe 10 mg PO DAILY 01/01/19 01/02/19 History Insulin Lispro Protamin/Lispro 12 unit SQ BID 01/01/19 01/01/19 History [HumaLOG Mix 75/25 3mL flexpen] Levothyroxine Sodium [Synthroid 25 mcg PO DAILY 01/01/19 01/01/19 History 25mcg (0.025mg) tablet] Atenolol [Atenolol 25mg Tab] 25 mg PO BID #60 tablet 01/02/19 Rx Metformin HCl 500 mg PO BID 01/02/19 01/02/19 History Rivaroxaban [Xarelto 20mg Tablet] 20 mg PO DAILY #30 tab 01/02/19 Rx dilTIAZem HCl [Cardizem CD 120mg 120 mg PO DAILY #30 cap 01/02/19 Rx Cap] Prescriptions/Medication Reconciliation: New dilTIAZem HCl [Cardizem CD 120mg Cap] 120 mg PO DAILY #30 cap Rivaroxaban [Xarelto 20mg Tablet] 20 mg PO DAILY #30 tab Continue Levothyroxine Sodium [Synthroid 25mcg (0.025mg) tablet] 25 mcg PO DAILY Insulin Lispro Protamin/Lispro [HumaLOG Mix 75/25 3mL flexpen] 12 unit SQ BID Ezetimibe 10 mg PO DAILY Metformin HCl 500 mg PO BID Changed Atenolol [Atenolol 25mg Tab] 25 mg PO BID #60 tablet
== END 2019-01-02 14:41 | disposition home or self-care (01) | DRG 310 ==
LOC: ER 15:19 → 2ND 19:02
PROVIDERS: ADMIT Family Medicine; ATTEND Family Medicine
CPT/HCPCS: 36415; 71010; 71045; 78452; 80048; 80053; 82962; 83735; 84443; 84484; 85025; 93005; 93017; 93225; 93226; 93306; 96365; 96367; 96372; 96375; 96376; 99284; A9502

== ENCOUNTER → 2019-03-06 10:49 | Outpatient (CLI) | payer BC, SELFPAY ==
[2019-03-06 13:12] LABS: Ferritin 42 ng/mL (8-388)
== END ==
PROVIDERS: Visit Provider Physician Assistant
DX: E83.119 Hemochromatosis, unspecified (principal)
CPT/HCPCS: 36415; 82728

== ENCOUNTER → 2019-04-15 08:23 | Outpatient (CLI) | payer BC, SELFPAY ==
[2019-04-15 12:41] LABS: Ferritin 50 ng/mL (8-388)
== END ==
PROVIDERS: Visit Provider Physician Assistant
DX: E83.119 Hemochromatosis, unspecified (principal)
CPT/HCPCS: 36415; 82728

== ENCOUNTER 2019-06-05 22:09 | Inpatient (IN) ==
--- NOTE | 2019-06-05 22:21 | Emergency Department Note ---
ED Disposition Clinical Impression: Community acquired pneumonia Qualifiers: Laterality: right Lung location: unspecified part of lung Qualified Code(s): J18.9 - Pneumonia, unspecified organism Disposition: Admitted As Inpatient Condition on Discharge: Fair Referrals: Shirley Almanzar MD [Primary Care Provider] - - Critical Care Critical Care Time: No Attestation: On , the high probability of a clinically significant, sudden or life threatening deterioration of the following system(s) required my full and direct attention, intervention and personal management. The time I documented below is in addition to time spent performing reported procedures but includes the following listed in this critical care notation. Medical Decision Making - [place] Inquiry Pt receiving controlled substance: No Vital Signs: 06/05/19 22:18 06/05/19 23:04 06/05/19 23:09 Temperature 97.9 F Temperature Source Oral Pulse Rate 98 H Pulse Rate [Right Radial] 103 H 100 H Respiratory Rate 25 H 22 Blood Pressure [Right Arm] 127/75 119/65 Blood Pressure Mean [Right Arm] 92 83 Blood Pressure Source [Right Arm] Automatic Cuff Blood Pressure Position [Right Arm] Supine 02 Sat by Pulse Oximetry 87 L 91 L Oxygen Delivery Method Nasal Cannula Oxygen Flow Rate (LPM) 06/05/19 23:30 Temperature Temperature Source Pulse Rate Pulse Rate [Right Radial] 102 H Respiratory Rate 22 Blood Pressure [Right Arm] 121/66 Blood Pressure Mean [Right Arm] 84 Blood Pressure Source [Right Arm] Automatic Cuff Blood Pressure Position [Right Arm] Supine 02 Sat by Pulse Oximetry 92 L Oxygen Delivery Method Nasal Cannula Oxygen Flow Rate (LPM) 2 - Lab Data Lab Results 06/05/19 22:20: WBC 5.8, RBC 4.10 L, Hgb 13.2 L, Hct 41.8 L, MCV 101.9 H, MCH 32.1 H, MCHC 31.5 L, RDW 13.6, Plt Count 253, MPV 8.1, Neut % (Auto) 88.8 H, Lymph % (Auto) 6.5 L, [place] % (Auto) 3.9, Eos % (Auto) 0.5, Baso % (Auto) 0.3, Neut # (Auto) 5.2, Lymph # (Auto) 0.4 L, [place] # (Auto) 0.2, Eos # (Auto) 0.0, Baso # (Auto) 0.0, Total Counted 100, Neutrophils % (Manual) 89 H, Lymphocytes % (Manual) 8 L, Monocytes % (Manual) 3, Platelet Estimate Normal, RBC Morphology Not Reportable, Macrocytosis 1+ 06/05/19 22:20: Sodium 133 L, Potassium 3.6, Chloride 97 L, Carbon Dioxide 23, Anion Gap 16.6 H, BUN 20 H, Creatinine 1.30, Estimated Creat Clear 62, Estimated GFR 55 L, Est GFR ( Amer) 66, Glucose 303 H, Calcium 8.5, Total Bilirubin 2.1 H, AST 47 H, ALT 44, Alkaline Phosphatase 175 H, Troponin I 2.20 H, Total Protein 7.0, Albumin 2.2 L, Globulin 4.8 H, Albumin/Globulin Ratio 0.5 L 06/05/19 22:20: Lactate 2.4 H Result diagrams: 06/05/19 22:20 06/05/19 22:20 Orders (Tests/Meds): ED MEDICATIONS Generic Name Dose Route Start Last Admin Trade Name Freq PRN Reason Stop Dose Admin Acetaminophen 650 mg 06/05/19 23:46 Acetaminophen 325mg Tab PO 07/05/19 23:45 Q4HP PRN As Needed for Fever or Pain Albuterol/Ipratropium 3 ml 06/06/19 06:00 Duoneb 3ml Neb IH 07/06/19 05:59 QIDRT MARLEN Aspirin 81 mg 06/06/19 09:00 Aspirin 81mg Enteric Coated Tablet PO 07/06/19 08:59 DAILY [facility] Azithromycin 500 mg/ Sodium 250 mls @ 250 mls/hr 06/05/19 23:45 06/06/19 00:08 Chloride IV 06/19/19 23:44 250 mls/hr Q24H MARLEN Administration Protocol Piperacillin Sod/Tazobactam 50 mls @ 100 mls/hr 06/05/19 23:45 06/05/19 23:58 Sod 3.375 gm/ Sodium Chloride IV 06/19/19 23:44 100 mls/hr Q6H MARLEN Administration Protocol Sodium Chloride 1,000 mls @ 50 mls/hr 06/05/19 23:45 Sod Chlor 0.9% 1000ml Bag IV 07/05/19 23:44 .Q20H [facility] Insulin Human Lispro 0 unit 06/06/19 06:00 Humalog 100 Units/Ml 3ml Vial (Ssi) SQ 07/06/19 05:59 ACHS MARLEN Protocol Levothyroxine Sodium 25 mcg 06/06/19 09:00 Synthroid 25mcg (0.025mg) Tablet PO 07/06/19 08:59 DAILY [facility]LEN Non-Formulary Medication 20 mg 06/06/19 09:00 Rivaroxaban [Xarelto 20mg Tablet] PO 07/06/19 08:59 DAILY [facility] Non-Formulary Medication 120 mg 06/06/19 09:00 Verapamil Hcl [Verapamil Er] PO 07/06/19 08:59 DAILY [facility] Sucralfate 1 gm 06/06/19 06:00 Carafate 1gm Tablet PO 07/06/19 05:59 ACHS MARLEN Discontinued Medications Generic Name Dose Route Start Last Admin Trade Name Freq PRN Reason Stop Dose Admin Albuterol/Ipratropium 3 ml 06/05/19 22:35 06/05/19 23:03 Duoneb 3ml Neb IH 06/05/19 22:36 3 ml ONCE ONE Administration ORDERS Category Date Time Status XR chest 2V Stat Exams 06/05/19 22:27 Taken Blood Culture Stat Micro 06/05/19 22:20 Received - Radiology Data #1 Image(s): Chest Image Reviewed: Yes I reviewed the patient's radiology image Right upper lobe airspace disease, pneumonia plus/minus mass. Right lower lobe airspace disease with small pleural effusion. - ECG Data Tracing #1 EKG interpreted by Pito Bear MD: Rhythm: sinus Rate: 98 [place]: Left Ectopy: none Conduction: normal ST Segment Changes: none T Wave Changes: none Q Waves: none No evidence of acute ischemia or injury Baseline wander present, but I consider the EKG adequate for accurate interpretation. - Physician Consults Physician Consulted: Ab Almanzar Time: 23:30 Reason -: Admission Comment/Response: Agrees to admit the patient to the hospital. We discussed the patient's clinical information, including history, exam, laboratory and radiology results and ED course. Per hospital procedure, I will write temporary bridge inpatient orders on the patient. Specific orders requested by the admitting physician: Consult pharmacy regarding antibiotics, continue oxygen, nebulizer treatments Medical Decision Narrative: 11:40 PM: Consulted with pharmacist. Recommends Zosyn and Zithromax due to allergy to cephalexin, recent use of flecainide, which was just stopped on Sunday 4 days ago. Reviewed records on [facility]. CTA yesterday, CT with contrast today, CXR today. Inconsistent readings. CTA notes consolidation RUL and RLL, probable post-obstructive pneumonia, but does not mention R lung mass. CXR notes consolidation, but no mention on lung mass. CT with contrast does not describe a mass in narrative, but in impression notes a large R lung mass. CT at chest at [facility] in Dec showed no R lung mass. CXR at [facility] 01/24/19 showed not lung mass. Discussed with Dr. Berger. He says Dr. Almanzar will investigate further in the A.M. General Adult HPI - General Stated complaint: SOA Time Seen by Provider: 06/05/19 22:20 - History of Present Illness HPI narrative: Patient is hard of hearing. History mostly obtained from his , but patient gave history as well. Complains of shortness of breath and pneumonia. The patient started feeling sick over the weekend, Sunday and Sunday, 4 to 5 days ago. Got better by Sun was admitted to the hospital for a scheduled cardiac ablation at [facility] yesterday. He had a routine CT scan before the procedure to look at his pulmonary veins, but was discovered to have a pneumonia in the right lung and a possible mass. states also had a CT scan this morning. states that when his endotracheal tube was removed after his ablation the anesthesiologist said that "a lot of gunk came out". He started running a fever this morning. He was started on oral Augmentin and Zithromax. He was started on an inhaler. Also discharged on sucralfate and Protonix. This evening has increased shortness of breath, therefore came to the emergency room. He is a former smoker. He is not on any pulmonary medications normally. No rhinorrhea or sore throat. Poor appetite, but no vomiting or diarrhea. BS has been running high, 200s. No chest pain. Cough is shallow and usually not productive. - Related Data Home Medications Medication Instructions Recorded Confirmed Ezetimibe 10 mg PO DAILY 01/01/19 06/05/19 Insulin Lispro Protamin/Lispro 12 unit SQ BID 01/01/19 06/05/19 [HumaLOG Mix 75/25 3mL flexpen] Levothyroxine Sodium [Synthroid 25 mcg PO DAILY 01/01/19 06/05/19 25mcg (0.025mg) tablet] Metformin HCl 500 mg PO BID 01/02/19 06/05/19 Rivaroxaban [Xarelto 20mg Tablet] 20 mg PO DAILY 01/10/19 06/05/19 aspirin 81 mg tablet,delayed 81 mg PO DAILY 01/23/19 06/05/19 release cholecalciferol (vitamin D3) 1,000 1,000 unit PO DAILY 01/23/19 06/05/19 unit capsule alirocumab 75 mg/mL subcutaneous 75 mg SQ Q2W 03/06/19 06/05/19 pen injector Albuterol Sulfate [Proair 90 mcg IH DIRECTED 06/05/19 06/05/19 Respiclick] Amoxicillin/Potassium Clav 1 tab PO Q12H 06/05/19 06/05/19 [Augmentin 875-125 Tablet] Azithromycin [Zithromax 250mg 250 mg PO DAILY 06/05/19 06/05/19 tab] Pantoprazole Sodium [Protonix 40mg 40 mg PO DAILY 06/05/19 06/05/19 Vial] Sucralfate [Sucralfate 1gm 1 gm PO ACHS 06/05/19 06/05/19 Tab] Previous Rx's Medication Instructions Recorded verapamil ER 120 mg 24 hr 120 mg PO DAILY #30 cap 04/17/19 capsule,extended release Allergies Allergy/AdvReac Type Severity Reaction Status Date / Time cephalexin [From Keflex] Allergy Unknown Verified 06/05/19 22:29 allergy reaction [facility] History - Hepatitis A Screen Attestation statement:: This patient has been screened for Hepatitis A risk factors. I have reviewed the patient's past medical history: Yes Medical History: Reports:: Arrhythmia, Atrial Fibrillation, Diabetes Mellitus Type 2, Kidney Stones Denies:: Cancer, Diabetes Mellitus Type 1, Internal Pacemaker, MRSA Comment: steatohepatitis, hemachromatosis, hearing loss with cochlear implants, questionable dx of lupus in 2016, Laterality Cases: Bilateral: Tonsillectomy Other Surgeries: Yes: Appendectomy, Cardiac Catheterization, Colonoscopy, Other (left knee, cochlear implant). No: Pacemaker Amputation: No Fractures: No - Social History Smoking Status: Former smoker Tobacco Type: cigarettes # Packs/Day (cigarettes): 1 #Yrs smoked (if former smoker): 30 Alcohol Intake: never Alcohol Intake Frequency:: other Substance Use Type: denies use Occupational Status: employed, other Housing: house Household Members: spouse Family Hx:: Cancer, Coronary Artery Disease, Diabetes, Hypertension, Stroke Comment: Maternal Grandfather-HI ROS Obtained: Yes All systems reviewed & no additional complaints - Constitutional Constitutional: Reports chills, Reports fever(s), Reports poor appetite, Reports lethargy, Reports weakness - Cardiovascular Cardiovascular: Denies chest pain - Respiratory Respiratory: Yes cough, Yes dyspnea, No excessive phlegm production, No coughing up blood - Gastrointestinal Gastrointestingal: Denies: abdominal pain, diarrhea, vomiting Physical Exam - General General appearance: alert, in no apparent distress Comment: Oxygen saturation 88% on room air - Head Head exam: atraumatic, normocephalic - Eye Eye exam: Present: normal appearance, PERRL, EOMI - ENT ENT exam: Present: mucous membranes moist - Neck Neck exam: Present: normal inspection, trachea midline - Chest Chest inspection: Present: normal inspection, symmetric chest wall rise - Respiratory Respiratory exam: Present: normal lung sounds bilaterally. Absent: respiratory distress - Cardiovascular Cardiovascular exam: Present: regular rate, normal rhythm, normal heart sounds - Abdominal Exam Abdominal exam: Present: soft. Absent: distention - Extremities Exam Extremities exam: Present: normal inspection, full ROM. Absent: tenderness, calf tenderness - Neurological Exam Neurological exam: Present: alert, oriented X3, other (decreased hearing) - Psychiatric Psychiatric exam: Present: normal affect, normal mood - Skin Skin exam: Present: warm, dry
[2019-06-05 23:03] LABS: Albumin Level 2.2 gm/dL (3.4-5.0); Albumin/Globulin Ratio 0.5 (1.1-1.8); Anion Gap 16.6 mEq/L (5-15); Bilirubin,Total 2.1 mg/dL (0.2-1.0); Calcium 8.5 mg/dL (8.5-10.1); Globulin 4.8 gm/dl (1.3-3.2)
[2019-06-05 23:11] LABS: Basophils % 0.3 % (0.1-2.0); Eosinophils % 0.5 % (0.1-12.0); Hematocrit 41.8 % (42.0-52.0); Hemoglobin 13.2 g/dL (14.1-18.0); Lymphocytes # 0.4 K/mm3 (0.7-4.5); Lymphocytes % 6.5 % (10-50); Mean Corpuscular HGB Conc 31.5 g/dL (31.8-35.4); Mean Corpuscular Volume 101.9 fl (80-94); Mean Platelet Volume 8.1 fl (7.4-10.4); Monocytes # 0.2 K/mm3 (0.1-1.0); Monocytes % 3.9 % (1.7-9.3); Neutrophils # 5.2 K/mm3 (1.8-7.8); Neutrophils % 88.8 % (37.0-80.0); Platelet Count 253 K/mm3 (142-424); Red Cell Distribution Width 13.6 % (11.5-17.5); White Blood Count 5.8 K/mm3 (4.8-10.8)
[2019-06-05 23:46] LABS: Lymphocytes % 8 % (10-50); Macrocytosis 1+; Monocytes % 3 % (2-9); Neutrophils % 89 % (42-76); Total Cells Counted 100
--- NOTE | 2019-06-06 08:47 | Pharmacy Consult Notes ---
[facility] Pharmacy VTE Monitoring - Patient Demographics Admission date: 06/05/19 Report Date: 06/06/19 Time: 08:46 Allergies/Adverse Reactions: Patient Allergies cephalexin [From Keflex] Allergy (Verified 06/06/19 02:02) Unknown allergy reaction Height: 1.65 m Weight: 71.838 kg Patient Problems: Current Active Problems Community acquired pneumonia (Acute) - VTE Risk Labs: VTE Related Lab Results Hgb 13.2 g/dL (14.1-18.0) L 06/05/19 22:20 Hct 41.8 % (42.0-52.0) L 06/05/19 22:20 Plt Count 253 K/mm3 (142-424) 06/05/19 22:20 BUN 20 mg/dL (7-18) H 06/05/19 22:20 Creatinine 1.30 mg/dL (0.70-1.30) 06/05/19 22:20 Estimated Creat Clear 62 mL/min (50-200) 06/05/19 22:20 Was VTE Risk Assessment Performed: Yes VTE Score: 6 VTE Risk Level: Moderate Risk - Prophylaxis VTE Prophylaxis Ordered?: Yes Types of VTE Prophylaxis: Pharmacological Pharmacologic Type: Other (XARELTO) - VTE Diagnosis Confirmed Treatment or plan recommended: Continue Current Treatment
--- NOTE | 2019-06-06 08:48 | History & Physical Report ---
*Admission Date: 06/06/19 *Chief complaint: shortness of breath *History of present illness: Mr. Trevino is a 69-year-old male who started feeling sick over the weekend with pinkeye and a headache. He was scheduled for an ablation on Sunday at and therefore went to on Sunday to see if they would still do the ablation since he was sick. He states he was given an ointment for his eye, some Mucinex, and some ibuprofen. He rested all day on Sunday and felt better on Sunday. He therefore presented to for the ablation on Sun. Apparently he had a CT scan before the procedure to look at his pulmonary veins and it was discovered that he had a pneumonia in the right lung and a possible mass. He also had a repeat CT scan after the procedure yesterday morning. According to his , when his endotracheal tube was removed after his ablation, the anesthesiologist said that "a lot of gunk came out". He was kept overnight after the procedure. He began running a fever yesterday. He was started on oral Augmentin and Zithromax. He was also started on an inhaler and was discharged home from on sucralfate and Protonix. He continued to feel worse and became very short of breath, therefore he presented to the emergency room at [facility]. His blood pressure was running high and he was felt to have a pneumonia and was admitted for further evaluation and treatment. [facility] History I have reviewed the patient's past medical history: Yes Medical History: Reports:: Arrhythmia, Atrial Fibrillation, Diabetes Mellitus Type 2, Hyperlipidemia, Hypertension, Kidney Stones Denies:: Cancer, Diabetes Mellitus Type 1, Internal Pacemaker, MRSA *Have you ever received a pneumonia vaccine?: Yes *Have you received a flu vaccine this season?: Yes Laterality Cases: Bilateral: Tonsillectomy Other Surgeries: Yes: Appendectomy, Cardiac Catheterization, Colonoscopy, Other (left knee, cochlear implant). No: Pacemaker Amputation: No Fractures: No - *Social History Smoking Status: Former smoker Tobacco Type: cigarettes # Packs/Day (cigarettes): 1 #Yrs smoked (if former smoker): 30 Alcohol Intake: current Alcohol Intake Frequency:: holidays/special occasions only Substance Use Type: denies use *Occupational Status:: employed, other Housing: house Household Members: spouse *Travel in the last 8 weeks: None Family Hx:: Cancer, Coronary Artery Disease, Diabetes, Hypertension, Stroke Review of Systems - Constitutional Reports fever(s), Reports malaise, Reports weakness - Eyes Denies blurry vision, Denies double vision - ENT Reports nasal congestion, Reports sore throat - *Cardiovascular Denies chest pain, Denies rapid, pounding, or irregular heartbeat - *Respiratory Reports cough, Reports shortness of breath - *Gastrointestinal Denies abdominal pain, Denies loose stools, Denies nausea, Denies vomiting - *Genitourinary Denies difficulty urinating, Denies painful urination - *Musculoskeletal Denies joint pain - *Neurologic Reports weakness, Denies headache(s), Denies dizziness Meds Home Medications Medication Instructions Recorded Confirmed Type Ezetimibe 10 mg PO DAILY 01/01/19 06/06/19 History Insulin Lispro Protamin/Lispro 12 unit SQ BID 01/01/19 06/06/19 History [HumaLOG Mix 75/25 3mL flexpen] Levothyroxine Sodium [Synthroid 25 mcg PO DAILY 01/01/19 06/06/19 History 25mcg (0.025mg) tablet] Metformin HCl 500 mg PO BID 01/02/19 06/06/19 History Rivaroxaban [Xarelto 20mg Tablet] 20 mg PO DAILY 01/10/19 06/06/19 History aspirin 81 mg tablet,delayed 81 mg PO DAILY 01/23/19 06/06/19 History release cholecalciferol (vitamin D3) 1,000 1,000 unit PO DAILY 01/23/19 06/06/19 History unit capsule alirocumab 75 mg/mL subcutaneous 75 mg SQ Q2W 03/06/19 06/05/19 History pen injector Albuterol Sulfate [Proair 90 mcg IH DIRECTED 06/05/19 06/06/19 History Respiclick] Amoxicillin/Potassium Clav 1 tab PO Q12H 06/05/19 06/06/19 History [Augmentin 875-125 Tablet] Azithromycin [Zithromax 250mg 250 mg PO DAILY 06/05/19 06/06/19 History tab] Pantoprazole Sodium [Protonix 40mg 40 mg PO DAILY 06/05/19 06/06/19 History Vial] Sucralfate [Sucralfate 1gm 1 gm PO ACHS 06/05/19 06/05/19 History Tab] Amoxicillin/Potassium Clav 1 tab PO Q12H 06/06/19 06/06/19 History [Augmentin 875-125 Tablet] Allergies Allergy/AdvReac Type Severity Reaction Status Date / Time cephalexin [From Keflex] Allergy Unknown Verified 06/06/19 02:02 allergy reaction Exam Vital signs and Labs for Last 24 Hours: Temp Pulse Resp BP Pulse Ox 98.4 F 97 H 20 115/70 91 L 06/06/19 08:00 06/06/19 08:00 06/06/19 08:00 06/06/19 08:00 06/06/19 08:00 Laboratory Results - last 24 hr 06/05/19 22:20: WBC 5.8, RBC 4.10 L, Hgb 13.2 L, Hct 41.8 L, MCV 101.9 H, MCH 32.1 H, MCHC 31.5 L, RDW 13.6, Plt Count 253, MPV 8.1, Neut % (Auto) 88.8 H, Lymph % (Auto) 6.5 L, [place] % (Auto) 3.9, Eos % (Auto) 0.5, Baso % (Auto) 0.3, Neut # (Auto) 5.2, Lymph # (Auto) 0.4 L, [place] # (Auto) 0.2, Eos # (Auto) 0.0, Baso # (Auto) 0.0, Total Counted 100, Neutrophils % (Manual) 89 H, Lymphocytes % (Manual) 8 L, Monocytes % (Manual) 3, Platelet Estimate Normal, RBC Morphology Not Reportable, Macrocytosis 1+ 06/05/19 22:20: Sodium 133 L, Potassium 3.6, Chloride 97 L, Carbon Dioxide 23, Anion Gap 16.6 H, BUN 20 H, Creatinine 1.30, Estimated Creat Clear 62, Estimated GFR 55 L, Est GFR ( Amer) 66, Glucose 303 H, Calcium 8.5, Total Bilirubin 2.1 H, AST 47 H, ALT 44, Alkaline Phosphatase 175 H, Troponin I 2.20 H, Total Protein 7.0, Albumin 2.2 L, Globulin 4.8 H, Albumin/Globulin Ratio 0.5 L 06/05/19 22:20: Lactate 2.4 H 06/06/19 02:40: Lactate 2.4 H 06/06/19 05:38: Lactate 2.0 06/06/19 05:44: POC Glucose 240 H I & O for Last 24 hours: Intake & Output 06/03/19 06/04/19 06/05/19 06/06/19 11:59 11:59 11:59 11:59 Intake Total 300 / 300 Balance 300 / 300 Weight 158 lb 6 oz - Constitutional no acute distress - *Routine HEENT Exam Head: Present: normocephalic Eye: Present: EOMI, PERRL ENT: Present: mucous membranes dry - *Routine Neck Exam Present: supple. Absent: lymphadenopathy - *Routine Respiratory Exam Present: decreased breath sounds (right posterior chest), rales (right base) - *Routine Cardiovascular Exam Present: RRR - *Routine Abdominal Exam Present: soft, normoactive bowel sounds. Absent: tenderness - *Routine Extremities Exam Absent: cyanosis, clubbing, edema - *Routine Skin Exam Present: warm. Absent: rash - *Routine Neurological Exam Present: alert, oriented X3 H&P: Result - Impressions Call report from radiology -radiologist states that the right lung appears to have pneumonia rather than a mass, still awaiting official report Assessment and Plan (1) Community acquired pneumonia Current visit: Yes Status: Acute Qualifiers: Laterality: right Lung location: unspecified part of lung Qualified Code(s): J18.9 - Pneumonia, unspecified organism Category: Medical Code(s): J18.9 - Pneumonia, unspecified organism (2) Cochlear implant in place Current visit: No Status: Chronic Category: Medical Code(s): Z96.21 - Cochlear implant status (3) Ex-smoker for more than 1 year Current visit: No Status: Chronic Category: Social Hx Code(s): Z87.891 - Personal history of nicotine dependence (4) Hemochromatosis Current visit: No Status: Chronic Qualifiers: Hemochromatosis type: unspecified Qualified Code(s): E83.119 - Hemochromatosis, unspecified Category: Medical Code(s): E83.119 - Hemochromatosis, unspecified (5) History of atrial flutter Current visit: No Status: Chronic Category: Medical Code(s): Z86.79 - P ersonal history of other diseases of the circulatory system (6) History of autoimmune disorder Current visit: No Status: Chronic Category: Medical Code(s): Z86.2 - Personal history of diseases of the blood and blood-forming organs and certain disorders involving the immune mechanism (7) Hyperlipidemia associated with type 2 diabetes mellitus Current visit: No Status: Chronic Category: Medical Code(s): E11.69 - Type 2 diabetes mellitus with other specified complication; E78.5 - Hyperlipidemia, unspecified (8) Diabetes Current visit: No Status: Chronic Qualifiers: Diabetes mellitus type: type 2 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 We will try to obtain records from . Will await sputum culture results.
--- NOTE | 2019-06-07 14:29 | Progress Note ---
Internal Medicine - PN: Subj *Date: 06/07/19 *Time: 14:26 Interval history: He feels somewhat better. His saturations seem to have improved a bit. With the oxygen turned down to 2 L he is achieving 94 to 95% on auscultation the right lung still sounds very different from the left. He has basilar rales on the right and very bronchial breath sounds at the apex on the right. His weight has gone up significantly from 1 58-1 65 and he has 2+ leg edema. Lasix IV will be ordered. Exam Vital signs and Labs for Last 24 Hours: Temp Pulse Resp BP Pulse Ox 97.9 F 99 H 16 126/72 95 06/07/19 12:00 06/07/19 12:00 06/07/19 12:00 06/07/19 12:00 06/07/19 12:00 Laboratory Results - last 24 hr 06/06/19 17:40: POC Glucose 328 H* 06/06/19 21:02: POC Glucose 274 H 06/07/19 06:04: POC Glucose 201 H 06/07/19 11:31: POC Glucose 291 H I & O for Last 24 hours: Intake & Output 06/05/19 06/06/19 06/07/19 06/08/19 11:59 11:59 11:59 11:59 Intake Total 300 / 300 2706 / 2706 Output Total 300 / 300 Balance 300 / 300 2406 / 2406 Weight 158 lb 6 oz 165 lb 1 oz Microbiology Reports for the Last 24 Hours: Microbiology 06/07/19 02:00 Sputum - Expectorated Sputum Gram Stain - Final - Constitutional no acute distress (But short of air) - *Routine HEENT Exam Head: Present: normocephalic Eye: Present: PERRL ENT: Present: mucous membranes moist - *Routine Respiratory Exam Comments: The left lung is clear. The right has basilar rales and very hollow, bronchial breath sounds at the apex. - *Routine Cardiovascular Exam Present: RRR - *Routine Extremities Exam Present: edema (2+ bilaterally) - *Routine Neurological Exam Present: alert, oriented X3 Assessment and Plan (1) Community acquired pneumonia Current visit: Yes Status: Acute Qualifiers: Laterality: right Lung location: unspecified part of lung Qualified Code(s): J18.9 - Pneumonia, unspecified organism Category: Medical Code(s): J18.9 - Pneumonia, unspecified organism (2) History of autoimmune disorder Current visit: No Status: Chronic Category: Medical Code(s): Z86.2 - Personal history of diseases of the blood and blood-forming organs and certain disorders involving the immune mechanism (3) Diabetes Current visit: No Status: Chronic Qualifiers: Diabetes mellitus type: type 2 Diabetes mellitus material damage appraiser insulin use: with material damage appraiser use Diabetes mellitus complication status: without complication Qualified Code(s): E11.9 - Type 2 diabetes mellitus without complications Category: Medical Code(s): E11.9 - Type 2 diabetes mellitus without complications (4) Ex-smoker for more than 1 year Current visit: No Status: Chronic Category: Social Hx Code(s): Z87.891 - Personal history of nicotine dependence (5) Hyperlipidemia associated with type 2 diabetes mellitus Current visit: No Status: Chronic Category: Medical Code(s): E11.69 - Type 2 diabetes mellitus with other specified complication; E78.5 - Hyperlipidemia, unspecified (6) Cochlear implant in place Current visit: No Status: Chronic Category: Medical Code(s): Z96.21 - Cochlear implant status (7) Hemochromatosis Current visit: No Status: Chronic Qualifiers: Hemochromatosis type: unspecified Qualified Code(s): E83.119 - Hemochromatosis, unspecified Category: Medical Code(s): E83.119 - Hemochromatosis, unspecified (8) History of atrial flutter Current visit: No Status: Chronic Category: Medical Code(s): Z86.79 - Personal history of other diseases of the circulatory system
[2019-06-07 14:31] LABS: Anion Gap 12.6 mEq/L (5-15); Calcium 8.5 mg/dL (8.5-10.1)
[2019-06-07 14:44] LABS: Basophils % 0.3 % (0.1-2.0); Eosinophils # 0.1 K/mm3 (0.0-0.4); Eosinophils % 0.8 % (0.1-12.0); Hematocrit 36.6 % (42.0-52.0); Hemoglobin 12.2 g/dL (14.1-18.0); Lymphocytes # 0.4 K/mm3 (0.7-4.5); Lymphocytes % 5.5 % (10-50); Mean Corpuscular HGB Conc 33.2 g/dL (31.8-35.4); Mean Corpuscular Volume 96.5 fl (80-94); Mean Platelet Volume 7.5 fl (7.4-10.4); Monocytes # 0.4 K/mm3 (0.1-1.0); Monocytes % 5.7 % (1.7-9.3); Neutrophils # 6.4 K/mm3 (1.8-7.8); Neutrophils % 87.7 % (37.0-80.0); Platelet Count 322 K/mm3 (142-424); Red Blood Count 3.79 M/mm3 (4.60-6.20); Red Cell Distribution Width 13.6 % (11.5-17.5); White Blood Count 7.3 K/mm3 (4.8-10.8)
[2019-06-07 15:17] LABS: Eosinophils % 1 % (0-3); Lymphocytes % 3 % (10-50); Monocytes % 4 % (2-9); Neutrophils % 84 % (42-76); RBC Morphology Normal; Total Cells Counted 100
[2019-06-08 07:10] LABS: Basophils % 0.5 % (0.1-2.0); Eosinophils # 0.1 K/mm3 (0.0-0.4); Eosinophils % 1.8 % (0.1-12.0); Hematocrit 36.3 % (42.0-52.0); Hemoglobin 11.8 g/dL (14.1-18.0); Lymphocytes # 0.6 K/mm3 (0.7-4.5); Lymphocytes % 9.2 % (10-50); Mean Corpuscular HGB Conc 32.6 g/dL (31.8-35.4); Mean Corpuscular Volume 96.4 fl (80-94); Mean Platelet Volume 7.3 fl (7.4-10.4); Monocytes # 0.4 K/mm3 (0.1-1.0); Monocytes % 5.9 % (1.7-9.3); Neutrophils # 5.1 K/mm3 (1.8-7.8); Neutrophils % 82.7 % (37.0-80.0); Platelet Count 418 K/mm3 (142-424); Red Blood Count 3.76 M/mm3 (4.60-6.20); Red Cell Distribution Width 13.6 % (11.5-17.5); White Blood Count 6.2 K/mm3 (4.8-10.8)
[2019-06-08 07:16] LABS: Anion Gap 12.4 mEq/L (5-15); Calcium 8.4 mg/dL (8.5-10.1)
--- NOTE | 2019-06-08 12:01 | Pharmacy Consult Notes ---
- Pharmacy Consult Date: 06/08/19 Time: 12:00 Referring provider: DR. HERNANDEZ Reason for Consult:: VANCOMYCIN DOSING Allergies and ADEs:: Allergies Allergy/AdvReac Type Severity Reaction Status Date / Time cephalexin [From Keflex] Allergy Unknown Verified 06/06/19 02:02 allergy reaction Home Medications:: Home Medications Medication Instructions Recorded Confirmed Type Ezetimibe 10 mg PO DAILY 01/01/19 06/06/19 History Insulin Lispro Protamin/Lispro 8 unit SQ BID 01/01/19 06/06/19 History [HumaLOG Mix 75/25 3mL flexpen] Levothyroxine Sodium [Synthroid 25 mcg PO DAILY 01/01/19 06/06/19 History 25mcg (0.025mg) tablet] Metformin HCl 500 mg PO BID 01/02/19 06/06/19 History Rivaroxaban [Xarelto 20mg Tablet] 20 mg PO DAILY 01/10/19 06/06/19 History aspirin 81 mg tablet,delayed 81 mg PO DAILY 01/23/19 06/06/19 History release cholecalciferol (vitamin D3) 1,000 1,000 unit PO DAILY 01/23/19 06/06/19 History unit capsule alirocumab 75 mg/mL subcutaneous 75 mg SQ Q2W 03/06/19 06/05/19 History pen injector Azithromycin [Zithromax 250mg 250 mg PO DAILY 06/05/19 06/06/19 History tab] Sucralfate [Sucralfate 1gm 1 gm PO ACHS 06/05/19 06/05/19 History Tab] Amoxicillin/Potassium Clav 1 tab PO Q12H 06/06/19 06/06/19 History [Augmentin 875-125 Tablet] Flecainide Acetate 100 mg PO BID 06/06/19 06/06/19 History Pantoprazole Sodium [Protonix 40mg 40 mg PO HS 06/06/19 06/06/19 History tablet] Height: 1.65 m Weight: 74.871 kg Laboratory Results:: Laboratory Results - last 24 hr 06/07/19 14:15: WBC 7.3 D, RBC 3.79 L, Hgb 12.2 L, Hct 36.6 L, MCV 96.5 H, MCH 32.1 H, MCHC 33.2, RDW 13.6, Plt Count 322 D, MPV 7.5, Neut % (Auto) 87.7 H, Lymph % (Auto) 5.5 L, [place] % (Auto) 5.7, Eos % (Auto) 0.8, Baso % (Auto) 0.3, Neut # (Auto) 6.4, Lymph # (Auto) 0.4 L, [place] # (Auto) 0.4, Eos # (Auto) 0.1, Baso # (Auto) 0.0, Total Counted 100, Neutrophils % (Manual) 84 H, Band Neutrophils % 8.0, Lymphocytes % (Manual) 3 L, Monocytes % (Manual) 4, Eosinophils % (Manual) 1, Platelet Estimate Normal, RBC Morphology Normal 06/07/19 14:15: Sodium 134 L, Potassium 3.6, Chloride 102, Carbon Dioxide 23, Anion Gap 12.6, BUN 11 D, Creatinine 0.99 D, Estimated Creat Clear 75, Estimated GFR 75, Est GFR ( Amer) 91 D, Glucose 273 H, Calcium 8.5 06/07/19 16:55: POC Glucose 279 H 06/07/19 20:47: POC Glucose 297 H 06/08/19 04:24: Stl Aeromonas (PCR) Not detected, Stl C. cayetanensis PCR Not detected, Stool Rotavirus (PCR) Not detected, Stl Adenov F 40/41 PCR Not detected, Stool Astrovirus (PCR) Not detected, Stool Campylobacter PCR Not detected, Stl C.difficile Tox PCR Not detected, Stool Cryptosporidium PCR Not detected, Stl E.coli Shiga Tox PCR Not detected, Stool E coli O157 PCR Not detected, Stl Enterotoxigenic E PCR Not detected, Stool EPEC (PCR) Not detected, Stool EAEC (PCR) Not detected, Stl E. histolytica PCR Not detected, Stool Giardia Lamblia PCR Not detected, Stool Salmonella PCR Not detected, Stool Sapovirus (PCR) Not detected, Stl P. shigelloides PCR Not detected, Stl Shigella/EIEC PCR Not detected, St Y.enterocolitica PCR Not detected, Stool Vibrio (PCR) Not detected, Stl Vibrio cholerae PCR Not detected, Stl Norovirus GI/GII PCR Not detected 06/08/19 06:18: POC Glucose 238 H 06/08/19 06:38: WBC 6.2, RBC 3.76 L, Hgb 11.8 L, Hct 36.3 L, MCV 96.4 H, MCH 31.4 H, MCHC 32.6, RDW 13.6, Plt Count 418 D, MPV 7.3 L, Neut % (Auto) 82.7 H, Lymph % (Auto) 9.2 L, [place] % (Auto) 5.9, Eos % (Auto) 1.8, Baso % (Auto) 0.5, Neut # (Auto) 5.1, Lymph # (Auto) 0.6 L, [place] # (Auto) 0.4, Eos # (Auto) 0.1, Baso # (Auto) 0.0 06/08/19 06:38: Sodium 136, Potassium 3.4 L, Chloride 102, Carbon Dioxide 25, Anion Gap 12.4, BUN 12, Creatinine 0.90, Estimated Creat Clear 75, Estimated GFR 84, Est GFR ( Amer) 102, Glucose 232 H, Calcium 8.4 L 06/08/19 10:39: POC Glucose 340 H* Medical History: Reports:: Arrhythmia, Atrial Fibrillation, Diabetes Mellitus Type 2, Hyperlipidemia, Hypertension, Kidney Stones Denies:: Cancer, Diabetes Mellitus Type 1, Internal Pacemaker, MRSA Assessment and Plan (1) Community acquired pneumonia Current visit: Yes Status: Acute Qualifiers: Laterality: right Lung location: unspecified part of lung Qualified Code(s): J18.9 - Pneumonia, unspecified organism Category: Medical Code(s): J18.9 - Pneumonia, unspecified organism (2) History of autoimmune disorder Current visit: No Status: Chronic Category: Medical Code(s): Z86.2 - Personal history of diseases of the blood and blood-forming organs and certain disorders involving the immune mechanism (3) Diabetes Current visit: No Status: Chronic Qualifiers: Diabetes mellitus type: type 2 Diabetes mellitus 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 insulin use: with alf use Diabetes mellitus complication status: without complication Qualified Code(s): E11.9 - Type 2 diabetes mellitus without complications Category: Medical Code(s): E11.9 - Type 2 diabetes mellitus without complications (4) Ex-smoker for more than 1 year Current visit: No Status: Chronic Category: Social Hx Code(s): Z87.891 - Personal history of nicotine dependence (5) Hyperlipidemia associated with type 2 diabetes mellitus Current visit: No Status: Chronic Category: Medical Code(s): E11.69 - Type 2 diabetes mellitus with other specified complication; E78.5 - Hyperlipidemia, unspecified (6) Cochlear implant in place Current visit: No Status: Chronic Category: Medical Code(s): Z96.21 - Cochlear implant status (7) Hemochromatosis Current visit: No Status: Chronic Qualifiers: Hemochromatosis type: unspecified Qualified Code(s): E83.119 - Hemochromatosis, unspecified Category: Medical Code(s): E83.119 - Hemochromatosis, unspecified (8) History of atrial flutter Current visit: No Status: Chronic Category: Medical Code(s): Z86.79 - Personal history of other diseases of the circulatory system - Assessment and plan all Dx Assessment and Plan for all problems:: BASED ON PATIENT FACTORS, RECOMMEND VANCOMYCIN 1500 MG IV Q18H. WILL OBTAIN VANCOMYCIN TROUGH LEVEL PRIOR TO 4TH DOSE. PHARMACY WILL FOLLOW DAILY AND ADJUST APPROPRIATE.
--- NOTE | 2019-06-08 12:19 | Progress Note ---
Internal Medicine - PN: Subj *Date: 06/08/19 *Time: 12:16 Interval history: He states that he may feel little bit better today. He is still quite short of breath. The chest x-ray did not show improvement. He did not have much diuresis with 20 mg of Lasix IV yesterday. The sputum culture shows gram positive cocci some in clusters as well as some diplococci. Vancomycin will be added to the regimen. Exam Vital signs and Labs for Last 24 Hours: Temp Pulse Resp BP Pulse Ox 98.2 F 101 H 16 113/65 94 L 06/08/19 08:00 06/08/19 10:06 06/08/19 08:00 06/08/19 08:00 06/08/19 08:00 Laboratory Results - last 24 hr 06/07/19 14:15: WBC 7.3 D, RBC 3.79 L, Hgb 12.2 L, Hct 36.6 L, MCV 96.5 H, MCH 32.1 H, MCHC 33.2, RDW 13.6, Plt Count 322 D, MPV 7.5, Neut % (Auto) 87.7 H, Lymph % (Auto) 5.5 L, [place] % (Auto) 5.7, Eos % (Auto) 0.8, Baso % (Auto) 0.3, Neut # (Auto) 6.4, Lymph # (Auto) 0.4 L, [place] # (Auto) 0.4, Eos # (Auto) 0.1, Baso # (Auto) 0.0, Total Counted 100, Neutrophils % (Manual) 84 H, Band Neutrophils % 8.0, Lymphocytes % (Manual) 3 L, Monocytes % (Manual) 4, Eosinophils % (Manual) 1, Platelet Estimate Normal, RBC Morphology Normal 06/07/19 14:15: Sodium 134 L, Potassium 3.6, Chloride 102, Carbon Dioxide 23, Anion Gap 12.6, BUN 11 D, Creatinine 0.99 D, Estimated Creat Clear 75, Estimated GFR 75, Est GFR ( Amer) 91 D, Glucose 273 H, Calcium 8.5 06/07/19 16:55: POC Glucose 279 H 06/07/19 20:47: POC Glucose 297 H 06/08/19 04:24: Stl Aeromonas (PCR) Not detected, Stl C. cayetanensis PCR Not detected, Stool Rotavirus (PCR) Not detected, Stl Adenov F 40/41 PCR Not detected, Stool Astrovirus (PCR) Not detected, Stool Campylobacter PCR Not detected, Stl C.difficile Tox PCR Not detected, Stool Cryptosporidium PCR Not detected, Stl E.coli Shiga Tox PCR Not detected, Stool E coli O157 PCR Not detected, Stl Enterotoxigenic E PCR Not detected, Stool EPEC (PCR) Not detected, Stool EAEC (PCR) Not detected, Stl E. histolytica PCR Not detected, Stool Giard ia Lamblia PCR Not detected, Stool Salmonella PCR Not detected, Stool Sapovirus (PCR) Not detected, Stl P. shigelloides PCR Not detected, Stl Shigella/EIEC PCR Not detected, St Y.enterocolitica PCR Not detected, Stool Vibrio (PCR) Not detected, Stl Vibrio cholerae PCR Not detected, Stl Norovirus GI/GII PCR Not detected 06/08/19 06:18: POC Glucose 238 H 06/08/19 06:38: WBC 6.2, RBC 3.76 L, Hgb 11.8 L, Hct 36.3 L, MCV 96.4 H, MCH 31.4 H, MCHC 32.6, RDW 13.6, Plt Count 418 D, MPV 7.3 L, Neut % (Auto) 82.7 H, Lymph % (Auto) 9.2 L, [place] % (Auto) 5.9, Eos % (Auto) 1.8, Baso % (Auto) 0.5, Neut # (Auto) 5.1, Lymph # (Auto) 0.6 L, [place] # (Auto) 0.4, Eos # (Auto) 0.1, Baso # (Auto) 0.0 06/08/19 06:38: Sodium 136, Potassium 3.4 L, Chloride 102, Carbon Dioxide 25, Anion Gap 12.4, BUN 12, Creatinine 0.90, Estimated Creat Clear 75, Estimated GFR 84, Est GFR ( Amer) 102, Glucose 232 H, Calcium 8.4 L 06/08/19 10:39: POC Glucose 340 H* I & O for Last 24 hours: Intake & Output 06/06/19 06/07/19 06/08/19 06/09/19 11:59 11:59 11:59 11:59 Intake Total 300 / 300 2706 / 2706 2292 / 2292 Output Total 300 / 300 600 / 600 Balance 300 / 300 2406 / 2406 1692 / 1692 Weight 158 lb 6 oz 165 lb 1 oz 165 lb 1 oz Microbiology Reports for the Last 24 Hours: Microbiology 06/07/19 02:00 Sputum - Expectorated Sputum Gram Stain - Final 06/07/19 02:00 Sputum - Expectorated Sputum Sputum Culture - Preliminary Gram Positive Cocci 06/05/19 22:20 Blood Blood Culture - Preliminary NO GROWTH AFTER 48 HOURS 06/05/19 22:20 Blood Blood Culture - Preliminary NO GROWTH AFTER 48 HOURS - Constitutional no acute distress (Eating lunch) - *Routine HEENT Exam Head: Present: normocephalic (Cochlear implant on right) ENT: Present: mucous membranes moist - *Routine Respiratory Exam Present: decreased breath sounds (On right) - *Routine Cardiovascular Exam Present: RRR (106) - *Routine Extremities Exam Present: edema (At least 2+ perhaps more than yesterday. Weight unchanged) Assessment and Plan (1) Community acquired pneumonia Current visit: Yes Status: Acute Qualifiers: Laterality: right Lung location: unspecified part of lung Qualified Code(s): J18.9 - Pneumonia, unspecified organism Category: Medical Code(s): J18.9 - Pneumonia, unspecified organism (2) History of autoimmune disorder Current visit: No Status: Chronic Category: Medical Code(s): Z86.2 - Personal history of diseases of the blood and blood-forming organs and certain disorders involving the immune mechanism (3) Diabetes Current visit: No Status: Chronic Qualifiers: Diabetes mellitus type: type 2 Diabetes mellitus 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 control 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 insulin use: with assisted use Diabetes mellitus complication status: without complication Qualified Code(s): E11.9 - Type 2 diabetes mellitus without complications Category: Medical Code(s): E11.9 - Type 2 diabetes mellitus without complications (4) Ex-smoker for more than 1 year Current visit: No Status: Chronic Category: Social Hx Code(s): Z87.891 - Personal history of nicotine dependence (5) Hyperlipidemia associated with type 2 diabetes mellitus Current visit: No Status: Chronic Category: Medical Code(s): E11.69 - Type 2 diabetes mellitus with other specified complication; E78.5 - Hyperlipidemia, unspecified (6) Cochlear implant in place Current visit: No Status: Chronic Category: Medical Code(s): Z96.21 - Cochlear implant status (7) Hemochromatosis Current visit: No Status: Chronic Qualifiers: Hemochromatosis type: unspecified Qualified Code(s): E83.119 - Hemochromatosis, unspecified Category: Medical Code(s): E83.119 - Hemochromatosis, unspecified (8) History of atrial flutter Current visit: No Status: Chronic Category: Medical Code(s): Z86.79 - Personal history of other diseases of the circulatory system - Assessment and plan all Dx Assessment and Plan for all problems:: 40 mg of Lasix twice daily, first dose now. Add vancomycin.
--- NOTE | 2019-06-09 08:39 | Progress Note ---
Internal Medicine - PN: Subj *Date: 06/09/19 *Time: 08:36 Interval history: Patient states he did get some sleep last night. He did have an abnormal high blood sugar. He remains on sliding scale. He is eating less than usual. He continues to be short of breath with exertion but feels breathing is better. He denies chest pain. Bowels have moved. He is voiding QS. Exam Vital signs and Labs for Last 24 Hours: Temp Pulse Resp BP Pulse Ox 97.9 F 102 H 16 133/68 90 L 06/09/19 08:00 06/09/19 08:00 06/09/19 08:00 06/09/19 08:00 06/09/19 08:00 Laboratory Results - last 24 hr 06/08/19 10:39: POC Glucose 340 H* 06/08/19 16:17: POC Glucose 283 H 06/08/19 20:47: POC Glucose 416 H* 06/09/19 06:26: POC Glucose 214 H I & O for Last 24 hours: Intake & Output 06/06/19 06/07/19 06/08/19 06/09/19 11:59 11:59 11:59 11:59 Intake Total 300 / 300 2706 / 2706 2292 / 2292 2049 / 2049 Output Total 300 / 300 600 / 600 1325 / 1325 Balance 300 / 300 2406 / 2406 1692 / 1692 725 / 725 Weight 158 lb 6 oz 165 lb 1 oz 165 lb 1 oz 162 lb 0.997 oz Microbiology Reports for the Last 24 Hours: Microbiology 06/07/19 02:00 Sputum - Expectorated Sputum Gram Stain - Final 06/07/19 02:00 Sputum - Expectorated Sputum Sputum Culture - Preliminary Gram Positive Cocci - Constitutional no acute distress Comments: Sitting in comfort chair. Dyspneic with exertion. - *Routine Respiratory Exam Present: diminished air movement (Throughout.) - *Routine Cardiovascular Exam Present: RRR - *Routine Abdominal Exam Present: soft, normoactive bowel sounds. Absent: tenderness, distended - *Routine Extremities Exam Present: edema (Trace bilaterally) - *Routine Neurological Exam Present: alert, oriented X3 Assessment and Plan (1) Community acquired pneumonia Current visit: Yes Status: Acute Qualifiers: Laterality: right Lung location: unspecified part of lung Qualified Code(s): J18.9 - Pneumonia, unspecified organism Category: Medical Code(s): J18.9 - Pneumonia, unspecified organism (2) History of autoimmune disorder Current visit: No Status: Chronic Category: Medical Code(s): Z86.2 - Personal history of diseases of the blood and blood-forming organs and certain disorders involving the immune mechanism (3) Diabetes Current visit: No Status: Chronic Qualifiers: Diabetes mellitus type: type 2 Diabetes mellitus longterm insulin use: with longterm use Diabetes mellitus complication status: without complication Qualified Code(s): E11.9 - Type 2 diabetes mellitus without complications Category: Medical Code(s): E11.9 - Type 2 diabetes mellitus without complications (4) Ex-smoker for more than 1 year Current visit: No Status: Chronic Category: Social Hx Code(s): Z87.891 - Personal history of nicotine dependence (5) Hyperlipidemia associated with type 2 diabetes mellitus Current visit: No Status: Chronic Category: Medical Code(s): E11.69 - Type 2 diabetes mellitus with other specified complication; E78.5 - Hyperlipidemia, unspecified (6) Cochlear implant in place Current visit: No Status: Chronic Category: Medical Code(s): Z96.21 - Cochlear implant status (7) Hemochromatosis Current visit: No Status: Chronic Qualifiers: Hemochromatosis type: unspecified Qualified Code(s): E83.119 - Hemochromatosis, unspecified Category: Medical Code(s): E83.119 - Hemochromatosis, unspecified (8) History of atrial flutter Current visit: No Status: Chronic Category: Medical Code(s): Z86.79 - Personal history of other diseases of the circulatory system - Assessment and plan all Dx Assessment and Plan for all problems:: Continue with antibiotics and duo nebs. Cultures are pending. Will restart metformin and continue sliding scale.
--- NOTE | 2019-06-09 08:58 | Progress Note ---
Internal Medicine - PN: Subj *Date: 06/09/19 *Time: 08:58 Exam Vital signs and Labs for Last 24 Hours: Temp Pulse Resp BP Pulse Ox 97.9 F 102 H 16 133/68 90 L 06/09/19 08:00 06/09/19 08:00 06/09/19 08:00 06/09/19 08:00 06/09/19 08:00 Laboratory Results - last 24 hr 06/08/19 10:39: POC Glucose 340 H* 06/08/19 16:17: POC Glucose 283 H 06/08/19 20:47: POC Glucose 416 H* 06/09/19 06:26: POC Glucose 214 H I & O for Last 24 hours: Intake & Output 06/06/19 06/07/19 06/08/19 06/09/19 23:59 23:59 23:59 23:59 Intake Total 1946 / 1946 1884 / 1884 2819 / 2819 698 / 698 Output Total 900 / 900 1125 / 1125 200 / 200 Balance 1946 984 / 984 1694 / 1694 498 / 498 Weight 71.838 kg 74.871 kg 74.871 kg 73.51 kg Microbiology Reports for the Last 24 Hours: Microbiology 06/07/19 02:00 Sputum - Expectorated Sputum Gram Stain - Final 06/07/19 02:00 Sputum - Expectorated Sputum Sputum Culture - Preliminary Gram Positive Cocci Assessment and Plan (1) Community acquired pneumonia Current visit: Yes Status: Acute Qualifiers: Laterality: right Lung location: unspecified part of lung Qualified Code(s): J18.9 - Pneumonia, unspecified organism Category: Medical Code(s): J18.9 - Pneumonia, unspecified organism (2) History of autoimmune disorder Current visit: No Status: Chronic Category: Medical Code(s): Z86.2 - Personal history of diseases of the blood and blood-forming organs and certain disorders involving the immune mechanism (3) Diabetes Current visit: No Status: Chronic Qualifiers: Diabetes mellitus type: type 2 Diabetes mellitus 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 inspector insulin use: with senior care use Diabetes mellitus complication status: without complication Qualified Code(s): E11.9 - Type 2 diabetes mellitus without complications Category: Medical Code(s): E11.9 - Type 2 diabetes mellitus without complications (4) Ex-smoker for more than 1 year Current visit: No Status: Chronic Category: Social Hx Code(s): Z87.891 - Personal history of nicotine dependence (5) Hyperlipidemia associated with type 2 diabetes mellitus Current visit: No Status: Chronic Category: Medical Code(s): E11.69 - Type 2 diabetes mellitus with other specified complication; E78.5 - Hyperlipidemia, unspecified (6) Cochlear implant in place Current visit: No Status: Chronic Category: Medical Code(s): Z96.21 - Cochlear implant status (7) Hemochromatosis Current visit: No Status: Chronic Qualifiers: Hemochromatosis type: unspecified Qualified Code(s): E83.119 - Hemochromatosis, unspecified Category: Medical Code(s): E83.119 - Hemochromatosis, unspecified (8) History of atrial flutter Current visit: No Status: Chronic Category: Medical Code(s): Z86.79 - Personal history of other diseases of the circulatory system The patient's infection will respond to the chosen ABx?: Yes Is the patient receiving the right drug, dose, and route?: Yes Could a more targeted ABx be ordered?: No (CULTURES CURRENTLY PENDING)
--- NOTE | 2019-06-09 19:08 | Progress Note ---
Internal Medicine - PN: Subj *Date: 06/09/19 *Time: 19:05 Interval history: He seems to be a little better this evening. He is breathing easier and his voice seems stronger. On auscultation he does seem to be moving air better. He still has significant leg edema, but it also seems less and it was this morning. He will get another evening dose of Lasix. Exam Vital signs and Labs for Last 24 Hours: Temp Pulse Resp BP Pulse Ox 97.6 F 99 H 28 H 127/74 91 L 06/09/19 11:46 06/09/19 13:51 06/09/19 11:46 06/09/19 11:46 06/09/19 17:03 Laboratory Results - last 24 hr 06/08/19 20:47: POC Glucose 416 H* 06/09/19 06:26: POC Glucose 214 H 06/09/19 11:31: POC Glucose 341 H* 06/09/19 16:21: POC Glucose 258 H I & O for Last 24 hours: Intake & Output 06/07/19 06/08/19 06/09/19 06/10/19 11:59 11:59 11:59 11:59 Intake Total 2706 / 2706 2292 / 2292 2650 / 2650 844 / 844 Output Total 300 / 300 600 / 600 1325 / 1325 625 / 625 Balance 2406 / 2406 1692 / 1692 1325 / 1325 219 / 219 Weight 165 lb 1 oz 165 lb 1 oz 162 lb 0.997 oz Microbiology Reports for the Last 24 Hours: Microbiology 06/07/19 02:00 Sputum - Expectorated Sputum Gram Stain - Final 06/07/19 02:00 Sputum - Expectorated Sputum Sputum Culture - Final Staphylococcus aureus - Constitutional no acute distress - *Routine Respiratory Exam Present: decreased breath sounds (But air movement has improved) - *Routine Cardiovascular Exam Present: RRR (Remains regular) - *Routine Extremities Exam Present: edema (2+ but perhaps better than this morning.) Assessment and Plan (1) Community acquired pneumonia Current visit: Yes Status: Acute Qualifiers: Laterality: right Lung location: unspecified part of lung Qualified Code(s): J18.9 - Pneumonia, unspecified organism Category: Medical Code(s): J18.9 - Pneumonia, unspecified organism (2) History of autoimmune disorder Current visit: No Status: Chronic Category: Medical Code(s): Z86.2 - Personal history of diseases of the blood and blood-forming organs and certain disorders involving the immune mechanism (3) Diabetes Current visit: No Status: Chronic Qualifiers: Diabetes mellitus type: type 2 Diabetes mellitus longterm insulin use: with 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 Diabetes mellitus complication status: without complication Qualified Code(s): E11.9 - Type 2 diabetes mellitus without complications Category: Medical Code(s): E11.9 - Type 2 diabetes mellitus without complications (4) History of cardiac radiofrequency ablation Current visit: Yes Status: Acute Category: Surgical Code(s): Z98.890 - Other specified postprocedural states (5) Ex-smoker for more than 1 year Current visit: No Status: Chronic Category: Social Hx Code(s): Z87.891 - Personal history of nicotine dependence (6) Hyperlipidemia associated with type 2 diabetes mellitus Current visit: No Status: Chronic Category: Medical Code(s): E11.69 - Type 2 diabetes mellitus with other specified complication; E78.5 - Hyperlipidemia, unspecified (7) Cochlear implant in place Current visit: No Status: Chronic Category: Medical Code(s): Z96.21 - Cochlear implant status (8) Hemochromatosis Current visit: No Status: Chronic Qualifiers: Hemochromatosis type: unspecified Qualified Code(s): E83.119 - Hemochromatosis, unspecified Category: Medical Code(s): E83.119 - Hemochromatosis, unspecified (9) History of atrial flutter Current visit: No Status: Chronic Category: Medical Code(s): Z86.79 - Personal history of other diseases of the circulatory system
[2019-06-10 07:23] LABS: Hemoglobin 12.4 g/dL (14.1-18.0); Red Blood Count 3.88 M/mm3 (4.60-6.20); White Blood Count 5.4 K/mm3 (4.8-10.8)
[2019-06-10 07:24] LABS: Basophils % 0.8 % (0.1-2.0); Eosinophils # 0.2 K/mm3 (0.0-0.4); Hematocrit 37.7 % (42.0-52.0); Lymphocytes # 0.6 K/mm3 (0.7-4.5); Lymphocytes % 11.2 % (10-50); Mean Corpuscular HGB Conc 32.8 g/dL (31.8-35.4); Mean Corpuscular Volume 97.2 fl (80-94); Mean Platelet Volume 7.3 fl (7.4-10.4); Monocytes # 0.2 K/mm3 (0.1-1.0); Monocytes % 4.3 % (1.7-9.3); Neutrophils # 4.3 K/mm3 (1.8-7.8); Neutrophils % 79.7 % (37.0-80.0); Platelet Count 588 K/mm3 (142-424); Red Cell Distribution Width 13.4 % (11.5-17.5)
[2019-06-10 07:44] LABS: Anion Gap 10.5 mEq/L (5-15); Calcium 8.5 mg/dL (8.5-10.1)
--- NOTE | 2019-06-10 08:54 | Progress Note ---
Internal Medicine - PN: Subj *Date: 06/10/19 *Time: 07:45 Interval history: Pt is sitting up in his chair browsing Facebook on his phone, notes he had a good breakfast and is feeling well. He has been voiding normally and notes BM x 1. He denies any pain. He continues to experience SOBOE and BLE edema. He notes NPC. Exam Vital signs and Labs for Last 24 Hours: Temp Pulse Resp BP Pulse Ox 97.6 F 96 H 22 128/70 92 L 06/10/19 08:00 06/10/19 08:00 06/10/19 08:00 06/10/19 08:00 06/10/19 08:00 Laboratory Results - last 24 hr 06/09/19 11:31: POC Glucose 341 H* 06/09/19 16:21: POC Glucose 258 H 06/09/19 20:05: POC Glucose 284 H 06/10/19 06:06: POC Glucose 280 H 06/10/19 07:18: Sodium 136, Potassium 3.5, Chloride 100, Carbon Dioxide 29, Anion Gap 10.5, BUN 13, Creatinine 0.94, Estimated Creat Clear 74, Estimated GFR 80, Est GFR ( Amer) 97, Glucose 249 H, Calcium 8.5 I & O for Last 24 hours: Intake & Output 06/07/19 06/08/19 06/09/19 06/10/19 11:59 11:59 11:59 11:59 Intake Total 2706 / 2706 2292 / 2292 2650 / 2650 2155 / 2155 Output Total 300 / 300 600 / 600 1325 / 1325 1375 / 1375 Balance 2406 / 2406 1692 / 1692 1325 / 1325 780 / 780 Weight 165 lb 1 oz 165 lb 1 oz 162 lb 0.997 oz 163 lb 1 oz Microbiology Reports for the Last 24 Hours: Microbiology 06/07/19 02:00 Sputum - Expectorated Sputum Gram Stain - Final 06/07/19 02:00 Sputum - Expectorated Sputum Sputum Culture - Final Staphylococcus aureus - Constitutional no acute distress - *Routine Respiratory Exam Comments: diminished breath sounds throughout with bibasilar fine rales and few scattered wheezes - *Routine Cardiovascular Exam Present: RRR - *Routine Abdominal Exam Present: soft, normoactive bowel sounds. Absent: tenderness, distended, rebound, guarding, firm, rigid - *Routine Extremities Exam Present: full ROM, pulses intact. Absent: calf tenderness Comments: 2+ bilateral pedal/ankle edema - *Routine Neurological Exam Present: alert, oriented X3, moving all extremities Assessment and Plan (1) Community acquired pneumonia Current visit: Yes Status: Acute Qualifiers: Laterality: right Lung location: unspecified part of lung Qualified Code(s): J18.9 - Pneumonia, unspecified organism Category: Medical Code(s): J18.9 - Pneumonia, unspecified organism (2) History of autoimmune disorder Current visit: No Status: Chronic Category: Medical Code(s): Z86.2 - Personal history of diseases of the blood and blood-forming organs and certain disorders involving the immune mechanism (3) Diabetes Current visit: No Status: Chronic Qualifiers: Diabetes mellitus type: type 2 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 Diabetes mellitus complication status: without complication Qualified Code(s): E11.9 - Type 2 diabetes mellitus without complications Category: Medical Code(s): E11.9 - Type 2 diabetes mellitus without complications (4) History of cardiac radiofrequency ablation Current visit: Yes Status: Acute Category: Surgical Code(s): Z98.890 - Other specified postprocedural states (5) Ex-smoker for more than 1 year Current visit: No Status: Chronic Category: Social Hx Code(s): Z87.891 - Personal history of nicotine dependence (6) Hyperlipidemia associated with type 2 diabetes mellitus Current visit: No Status: Chronic Category: Medical Code(s): E11.69 - Type 2 diabetes mellitus with other specified complication; E78.5 - Hyperlipidemia, unspecified (7) Cochlear implant in place Current visit: No Status: Chronic Category: Medical Code(s): Z96.21 - Cochlear implant status (8) Hemochromatosis Current visit: No Status: Chronic Qualifiers: Hemochromatosis type: unspecified Qualified Code(s): E83.119 - Hemochromatosis, unspecified Category: Medical Code(s): E83.119 - Hemochromatosis, unspecified (9) History of atrial flutter Current visit: No Status: Chronic Category: Medical Code(s): Z86.79 - Personal history of other diseases of the circulatory system - Assessment and plan all Dx Assessment and Plan for all problems:: Further per Dr. Almanzar.
--- NOTE | 2019-06-10 09:03 | Progress Note ---
Internal Medicine - PN: Subj *Date: 06/10/19 *Time: 09:00 Interval history: He acts like he feels a little better this morning. His breath sounds are still markedly decreased bilaterally. He is using his incentive spirometer. He is only getting 1 L of nasal O2. I have suggested he remain at 2 at this point. His saturations are in the range of 92%. He is getting nebulizer treatments. His heart rate remains regular. His weight is up 1 pound Exam Vital signs and Labs for Last 24 Hours: Temp Pulse Resp BP Pulse Ox 97.6 F 96 H 22 128/70 92 L 06/10/19 08:00 06/10/19 08:00 06/10/19 08:00 06/10/19 08:00 06/10/19 08:00 Laboratory Results - last 24 hr 06/09/19 11:31: POC Glucose 341 H* 06/09/19 16:21: POC Glucose 258 H 06/09/19 20:05: POC Glucose 284 H 06/10/19 06:06: POC Glucose 280 H 06/10/19 07:18: Sodium 136, Potassium 3.5, Chloride 100, Carbon Dioxide 29, Anion Gap 10.5, BUN 13, Creatinine 0.94, Estimated Creat Clear 74, Estimated GFR 80, Est GFR ( Amer) 97, Glucose 249 H, Calcium 8.5 Laboratory Tests 06/10/19 07:18 Sodium 136 Potassium 3.5 Chloride 100 Carbon Dioxide 29 Anion Gap 10.5 BUN 13 Creatinine 0.94 Glucose 249 H I & O for Last 24 hours: Intake & Output 06/07/19 06/08/19 06/09/19 06/10/19 11:59 11:59 11:59 11:59 Intake Total 2706 / 2706 2292 / 2292 2650 / 2650 2155 / 2155 Output Total 300 / 300 600 / 600 1325 / 1325 1375 / 1375 Balance 2406 / 2406 1692 / 1692 1325 / 1325 780 / 780 Weight 165 lb 1 oz 165 lb 1 oz 162 lb 0.997 oz 163 lb 1 oz Microbiology Reports for the Last 24 Hours: Microbiology 06/07/19 02:00 Sputum - Expectorated Sputum Gram Stain - Final 06/07/19 02:00 Sputum - Expectorated Sputum Sputum Culture - Final Staphylococcus aureus - Constitutional no acute distress - *Routine Respiratory Exam Present: decreased breath sounds Comments: Hollow bronchial breath sounds in the right upper lobe. - *Routine Cardiovascular Exam Present: RRR - *Routine Extremities Exam Present: edema (He still has at least 2+ leg edema.) Assessment and Plan (1) Community acquired pneumonia Current visit: Yes Status: Acute Qualifiers: Laterality: right Lung location: unspecified part of lung Qualified Code(s): J18.9 - Pneumonia, unspecified organism Category: Medical Code(s): J18.9 - Pneumonia, unspecified organism (2) History of autoimmune disorder Current visit: No Status: Chronic Category: Medical Code(s): Z86.2 - Personal history of diseases of the blood and blood-forming organs and certain disorders involving the immune mechanism (3) Diabetes Current visit: No Status: Chronic Qualifiers: Diabetes mellitus type: type 2 Diabetes mellitus retirement insulin use: with intermediate project manager use Diabetes mellitus complication status: without complication Qualified Code(s): E11.9 - Type 2 diabetes mellitus without complications Category: Medical Code(s): E11.9 - Type 2 diabetes mellitus without compli cations (4) History of cardiac radiofrequency ablation Current visit: Yes Status: Acute Category: Surgical Code(s): Z98.890 - Other specified postprocedural states (5) Ex-smoker for more than 1 year Current visit: No Status: Chronic Category: Social Hx Code(s): Z87.891 - Personal history of nicotine dependence (6) Hyperlipidemia associated with type 2 diabetes mellitus Current visit: No Status: Chronic Category: Medical Code(s): E11.69 - Type 2 diabetes mellitus with other specified complication; E78.5 - Hyperlipidemia, unspecified (7) Cochlear implant in place Current visit: No Status: Chronic Category: Medical Code(s): Z96.21 - Cochlear implant status (8) Hemochromatosis Current visit: No Status: Chronic Qualifiers: Hemochromatosis type: unspecified Qualified Code(s): E83.119 - Hemochromatosis, unspecified Category: Medical Code(s): E83.119 - Hemochromatosis, unspecified (9) History of atrial flutter Current visit: No Status: Chronic Category: Medical Code(s): Z86.79 - Personal history of other diseases of the circulatory system - Assessment and plan all Dx Assessment and Plan for all problems:: Increase Lasix to [address] Howard will be seeing the patient today in consultation.
--- NOTE | 2019-06-10 18:52 | Consult Report ---
*Admission Date: 06/06/19 *Reason for consult:: Pneumonia *History of present illness: Mr. Trevino is a 69-year-old man who has been in relatively good health all of his life. About 7 years ago, when his father was dying, he had a single episode of atrial fibrillation with rapid ventricular response. This did not recur until a few months ago, perhaps in December of this year when he had 3 serious episodes one after another. He was tried on a variety of medications and, ultimately, was placed on flecainide which seemed to work. He was scheduled for an ablation on June 05 and was looking forward to it. A few days before that, however, he began to feel ill; he experienced malaise, chilling and a very persistent, unproductive cough. He also felt somewhat short of breath. He went to the Cardiology clinic at the [facility] a couple of days before he was due to have the ablation and told them he was ill and wondered whether or not it should be postponed. They did not give him any answer and proceeded a couple of days later. They had stopped the flecainide a day or 2 before and he immediately went back into atrial fibrillation. The procedure was successful and he went home but he was already feeling much worse. At , they did a chest x-ray which was very abnormal and then a CT scan of the chest which suggested a right hilar mass with lymphadenopathy and probably postobstructive pneumonia. They gave him oral antibiotics. He had a fever to 102 with one-point and he decided to come into the hospital here. Mr. Trevino is still coughing although not expectorating too much but he feels much better. He was still weak and still requiring oxygen. He has had no chest pain. Over the weeks and months and years before this illness, he has not had respiratory complaints. 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 In early May, he and his family went to [facility] and he walked everywhere without any difficulty. He normally does not have a cough and he has no significant GI complaints, even now. He began smoking when he was in his early 20s and worked up to about 2 packages of cigarettes daily by the time he quit in 2004. There is no family history of lung cancer although his mother did have ovarian cancer. [facility] History Medical History: Reports:: Arrhythmia, Atrial Fibrillation, Diabetes Mellitus Type 2, Hyperlipidemia, Hypertension, Kidney Stones Denies:: Cancer, Diabetes Mellitus Type 1, Internal Pacemaker, MRSA *Have you ever received a pneumonia vaccine?: Yes *Have you received a flu vaccine this season?: Yes Laterality Cases: Bilateral: Tonsillectomy Other Surgeries: Yes: Appendectomy, Cardiac Catheterization, Colonoscopy, Other (left knee, cochlear implant). No: Pacemaker Amputation: No Fractures: No - *Social History Smoking Status: Former smoker Tobacco Type: cigarettes # Packs/Day (cigarettes): 1 #Yrs smoked (if former smoker): 30 Alcohol Intake: current Alcohol Intake Frequency:: holidays/special occasions only Substance Use Type: denies use *Occupational Status:: employed, other Housing: house Household Members: spouse *Travel in the last 8 weeks: None Family Hx:: Cancer, Coronary Artery Disease, Diabetes, Hypertension, Stroke Review of Systems - Review of Systems Review of systems:: pertinent systems reviewed and negative unless documented below A 14 point ROS was reviewed and is negative except for what's in the present illness. - *Neurologic Reports weakness, Denies headache(s), Denies dizziness Meds Home Medications Medication Instructions Recorded Confirmed Type Ezetimibe 10 mg PO DAILY 01/01/19 06/06/19 History Insulin Lispro Protamin/Lispro 8 unit SQ BID 01/01/19 06/06/19 History [HumaLOG Mix 75/25 3mL flexpen] Levothyroxine Sodium [Synthroid 25 mcg PO DAILY 01/01/19 06/06/19 History 25mcg (0.025mg) tablet] Metformin HCl 500 mg PO BID 01/02/19 06/06/19 History Rivaroxaban [Xarelto 20mg Tablet] 20 mg PO DAILY 01/10/19 06/06/19 History aspirin 81 mg tablet,delayed 81 mg PO DAILY 01/23/19 06/06/19 History release cholecalciferol (vitamin D3) 1,000 1,000 unit PO DAILY 01/23/19 06/06/19 History unit capsule alirocumab 75 mg/mL subcutaneous 75 mg SQ Q2W 03/06/19 06/05/19 History pen injector Azithromycin [Zithromax 250mg 250 mg PO DAILY 06/05/19 06/06/19 History tab] Sucralfate [Sucralfate 1gm 1 gm PO ACHS 06/05/19 06/05/19 History Tab] Amoxicillin/Potassium Clav 1 tab PO Q12H 06/06/19 06/06/19 History [Augmentin 875-125 Tablet] Flecainide Acetate 100 mg PO BID 06/06/19 06/06/19 History Pantoprazole Sodium [Protonix 40mg 40 mg PO HS 06/06/19 06/06/19 History tablet] Allergies Allergy/AdvReac Type Severity Reaction Status Date / Time cephalexin [From Keflex] Allergy Unknown Verified 06/06/19 02:02 allergy reaction Exam Vital signs and Labs for Last 24 Hours: Temp Pulse Resp BP Pulse Ox 99.2 F 92 H 22 123/66 96 06/10/19 16:00 06/10/19 16:00 06/10/19 16:00 06/10/19 16:00 06/10/19 16:00 Laboratory Results - last 24 hr 06/09/19 20:05: POC Glucose 284 H 06/10/19 06:06: POC Glucose 280 H 06/10/19 07:18: WBC 5.4, RBC 3.88 L, Hgb 12.4 L, Hct 37.7 L, MCV 97.2 H, MCH 31. 9 H, MCHC 32.8, RDW 13.4, Plt Count 588 H D, MPV 7.3 L, Neut % (Auto) 79.7, Lymph % (Auto) 11.2, Villalba % (Auto) 4.3, Eos % (Auto) 4.0, Baso % (Auto) 0.8, Neut # (Auto) 4.3, Lymph # (Auto) 0.6 L, Villalba # (Auto) 0.2, Eos # (Auto) 0.2, Baso # (Auto) 0.0 06/10/19 07:18: Sodium 136, Potassium 3.5, Chloride 100, Carbon Dioxide 29, Anion Gap 10.5, BUN 13, Creatinine 0.94, Estimated Creat Clear 74, Estimated GFR 80, Est GFR ( Amer) 97, Glucose 249 H, Calcium 8.5 06/10/19 11:30: POC Glucose 376 H* 06/10/19 16:36: POC Glucose 226 H Mr. Trevino is a very pleasant and articulate man who is obviously acutely ill, sitting in a chair wearing oxygen at 2 L/min by nasal cannula. He got up on his own to greet me but clearly was fairly weak. Neck: No JVD or adenopathy Chest: Symmetrical expansion; normal percussion note on the left with good breath sounds. On the right, there is a dullness up and down the chest with bronchophony and egophony over the right upper posterior chest. No adventitious sounds were heard. Heart: Regular rhythm; no murmur. Abdomen: Bowel sounds diminished; soft, nontender, no masses or organomegaly. Extremities: No clubbing; 1+ edema of the ankles and legs I & O for Last 24 hours: Intake & Output 06/07/19 06/08/19 06/09/19 06/10/19 23:59 23:59 23:59 23:59 Intake Total 1884 / 1884 2819 / 2819 2142 / 2142 1311 / 1311 Output Total 900 / 900 1125 / 1125 825 / 825 5050 / 5050 Balance 984 / 984 1694 / 1694 1317 / 1317 -3739 / -3739 Weight 74.871 kg 74.871 kg 73.51 kg 73.964 kg Internal Medicine - CN: Reslt - Labs CBC & Chem 7: 06/10/19 07:18 06/10/19 07:18 Labs: Short CBC 06/10/19 Range/Units 07:18 WBC 5.4 (4.8-10.8) K/mm3 Hgb 12.4 L (14.1-18.0) g/dL Hct 37.7 L (42.0-52.0) % Plt Count 588 H D (142-424) K/mm3 BMP 06/10/19 07:18 Sodium 136 Potassium 3.5 Chloride 100 Carbon Dioxide 29 BUN 13 Creatinine 0.94 Glucose 249 H Calcium 8.5 - Impressions I reviewed the CT scan performed at the other day as best I could from here. It demonstrates a dense infiltrate in the right upper and lower lobe and evidence of adenopathy especially in the subcarinal area. The radiologist has pointed out a left upper lobe pleural-based nodule which is 18 x 20 mm. I reviewed all of his CTs and recent chest x-rays performed at [facility] personally. He has been followed for pulmonary nodules before, some of which are calcified and others not. He had an infrahilar nodule on the right earlier this year but I gather the radiologist did not feel there was much change from prior CTs. He has extensive calcification in the lung and mediastinum consistent with remote granulomatous disease. Assessment and Plan (1) Community acquired pneumonia Current visit: Yes Status: Acute Qualifiers: Laterality: right Lung location: unspecified part of lung Qualified Code( s): J18.9 - Pneumonia, unspecified organism Category: Medical Code(s): J18.9 - Pneumonia, unspecified organism (2) History of autoimmune disorder Current visit: No Status: Chronic Category: Medical Code(s): Z86.2 - Personal history of diseases of the blood and blood-forming organs and certain disorders involving the immune mechanism (3) Diabetes Current visit: No Status: Chronic Qualifiers: Diabetes mellitus type: type 2 Diabetes mellitus mcc insulin use: with mcc use Diabetes mellitus complication status: without complication Qualified Code(s): E11.9 - Type 2 diabetes mellitus without complications; 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 Category: Medical Code(s): E11.9 - Type 2 diabetes mellitus without complications (4) History of cardiac radiofrequency ablation Current visit: Yes Status: Acute Category: Surgical Code(s): Z98.890 - Other specified postprocedural states (5) Ex-smoker for more than 1 year Current visit: No Status: Chronic Category: Social Hx Code(s): Z87.891 - Personal history of nicotine dependence (6) Hyperlipidemia associated with type 2 diabetes mellitus Current visit: No Status: Chronic Category: Medical Code(s): E11.69 - Type 2 diabetes mellitus with other specified complication; E78.5 - Hyperlipidemia, unspecified (7) Cochlear implant in place Current visit: No Status: Chronic Category: Medical Code(s): Z96.21 - Cochlear implant status (8) Hemochromatosis Current visit: No Status: Chronic Qualifiers: Hemochromatosis type: unspecified Qualified Code(s): E83.119 - Hemochromatosis, unspecified Category: Medical Code(s): E83.119 - Hemochromatosis, unspecified (9) History of atrial flutter Current visit: No Status: Chronic Category: Medical Code(s): Z86.79 - Personal history of other diseases of the circulatory system - Assessment and plan all Dx Assessment and Plan for all problems:: Mr. Trevino was admitted with acute respiratory failure associated with extensive right-sided pulmonary infiltrates and the acute onset of respiratory and constitutional symptoms. The major concern is malignancy but, if this is the case, it has really moved very quickly. I cannot see anything endobronchially on the CT from but I do not have the ability to view it the way a radiologist can. I do see extensive lymph node calcification which must be abutting a major airway at least. He probably has postobstructive pneumonia but I hope that it is due to some benign process like a broncholith rather than a cancer. The enlarged nodule on the left side, which was not present on the prior CT, is worrisome, however. He has improved but is still weak. Since he is afebrile and his white count is normal, I believe he could be switched to oral antibiotics. I have spoken with him and his , who works at in the Dietary department, about bronchoscopy which I recommend. He would like to do this as an outpatient and, if he improves, I think that would be all right. For now, I suggest obtaining fungal serologies including a histoplasma urinary antigen in case he has a fungal pneumonia. 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 I will contact our person who schedules bronchoscopies. If he does not improve and you decide to transfer him to , that can be arranged at that time. Thank you for the opportunity to participate in Mr. Trevino's care.
[2019-06-11 07:44] LABS: Basophils % 0.6 % (0.1-2.0); Eosinophils # 0.2 K/mm3 (0.0-0.4); Eosinophils % 3.9 % (0.1-12.0); Hematocrit 36.7 % (42.0-52.0); Hemoglobin 11.8 g/dL (14.1-18.0); Lymphocytes # 0.6 K/mm3 (0.7-4.5); Lymphocytes % 10.8 % (10-50); Mean Corpuscular Volume 99.1 fl (80-94); Mean Platelet Volume 7.1 fl (7.4-10.4); Monocytes # 0.3 K/mm3 (0.1-1.0); Monocytes % 5.8 % (1.7-9.3); Neutrophils % 78.9 % (37.0-80.0); Platelet Count 585 K/mm3 (142-424); Red Cell Distribution Width 13.5 % (11.5-17.5); White Blood Count 5.1 K/mm3 (4.8-10.8)
[2019-06-11 07:53] LABS: Anion Gap 8.6 mEq/L (5-15); Calcium 8.4 mg/dL (8.5-10.1)
--- NOTE | 2019-06-11 08:25 | Progress Note ---
Internal Medicine - PN: Subj *Date: 06/11/19 *Time: 08:23 Interval history: Patient states he does feel better this morning. His shortness of breath has improved but he still requires oxygen. He has been up and moving about his room. He has been sitting up and eating breakfast this morning and did rest well last night. Exam Vital signs and Labs for Last 24 Hours: Temp Pulse Resp BP Pulse Ox 98.6 F 97 H 16 129/70 92 L 06/11/19 08:00 06/11/19 08:00 06/11/19 08:00 06/11/19 08:00 06/11/19 08:00 Laboratory Results - last 24 hr 06/10/19 07:18: WBC 5.4, RBC 3.88 L, Hgb 12.4 L, Hct 37.7 L, MCV 97.2 H, MCH 31.9 H, MCHC 32.8, RDW 13.4, Plt Count 588 H D, MPV 7.3 L, Neut % (Auto) 79.7, Lymph % (Auto) 11.2, [facility] % (Auto) 4.3, Eos % (Auto) 4.0, Baso % (Auto) 0.8, Neut # (Auto) 4.3, Lymph # (Auto) 0.6 L, [facility] # (Auto) 0.2, Eos # (Auto) 0.2, Baso # (Auto) 0.0 06/10/19 11:30: POC Glucose 376 H* 06/10/19 16:36: POC Glucose 226 H 06/10/19 18:33: Vancomycin Trough 7.5 L 06/10/19 20:29: POC Glucose 281 H 06/11/19 05:44: POC Glucose 287 H 06/11/19 07:26: WBC 5.1, RBC 3.70 L, Hgb 11.8 L, Hct 36.7 L, MCV 99.1 H, MCH 31.8 H, MCHC 32.0, RDW 13.5, Plt Count 585 H, MPV 7.1 L, Neut % (Auto) 78.9, Lymph % (Auto) 10.8, [facility] % (Auto) 5.8, Eos % (Auto) 3.9, Baso % (Auto) 0.6, Neut # (Auto) 4.0, Lymph # (Auto) 0.6 L, [facility] # (Auto) 0.3, Eos # (Auto) 0.2, Baso # (Auto) 0.0 06/11/19 07:26: Sodium 136, Potassium 3.6, Chloride 100, Carbon Dioxide 31, Anion Gap 8.6, BUN 12, Creatinine 1.00, Estimated Creat Clear 72, Estimated GFR 74, Est GFR ( Amer) 90, Glucose 310 H, Calcium 8.4 L I & O for Last 24 hours: Intake & Output 06/08/19 06/09/19 06/10/19 06/11/19 11:59 11:59 11:59 11:59 Intake Total 2292 / 2292 2650 / 2650 2155 / 2155 1809 / 1809 Output Total 600 / 600 1325 / 1325 2675 / 2675 3875 / 3875 Balance 1692 / 1692 1325 / 1325 -520 / -520 -2066 / -2066 Weight 165 lb 1 oz 162 lb 0.997 oz 163 lb 1 oz 158 lb 2 oz Microbiology Reports for the Last 24 Hours: Microbiology 06/05/19 22:20 Blood Blood Culture - Final NO GROWTH AFTER 5 DAYS 06/05/19 22:20 Blood Blood Culture - Final NO GROWTH AFTER 5 DAYS - Constitutional no acute distress - *Routine Respiratory Exam Present: decreased breath sounds. Absent: rales, wheezes - *Routine Cardiovascular Exam Present: RRR - *Routine Abdominal Exam Present: soft, normoactive bowel sounds. Absent: tenderness - *Routine Extremities Exam Absent: cyanosis, clubbing, edema - *Routine Skin Exam Present: warm. Absent: rash - *Routine Neurological Exam Present: alert, oriented X3 Assessment and Plan (1) Community acquired pneumonia Current visit: Yes Status: Acute Qualifiers: Laterality: right Lung location: unspecified part of lung Qualified Code(s): J18.9 - Pneumonia, unspecified organism Category: Medical Code(s): J18.9 - Pneumonia, unspecified organism (2) History of autoimmune disorder Current visit: No Status: Chronic Category: Medical Code(s): Z86.2 - Personal history of diseases of the blood and blood-forming organs and certain disorders involving the immune mechanism (3) Diabetes Current visit: No Status: Chronic Qualifiers: Diabetes mellitus type: type 2 Diabetes mellitus detention insulin use: with detention use Diabetes mellitus complication status: without complication Qualified Code(s): E11.9 - Type 2 diabetes mellitus without complications; Z79.4 - halfway (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 Category: Medical Code(s): E11.9 - Type 2 diabetes mellitus without complications (4) History of cardiac radiofrequency ablation Current visit: Yes Status: Acute Category: Surgical Code(s): Z98.890 - Other specified postprocedural states (5) Ex-smoker for more than 1 year Current visit: No Status: Chronic Category: Social Hx Code(s): Z87.891 - Personal history of nicotine dependence (6) Hyperlipidemia associated with type 2 diabetes mellitus Current visit: No Status: Chronic Category: Medical Code(s): E11.69 - Type 2 diabetes mellitus with other specified complication; E78.5 - Hyperlipidemia, unspecified (7) Cochlear implant in place Current visit: No Status: Chronic Category: Medical Code(s): Z96.21 - Cochlear implant status (8) Hemochromatosis Current visit: No Status: Chronic Qualifiers: Hemochromatosis type: unspecified Qualified Code(s): E83.119 - Hemochromatosis, unspecified Category: Medical Code(s): E83.119 - Hemochromatosis, unspecified (9) History of atrial flutter Current visit: No Status: Chronic Category: Medical Code(s): Z86.79 - Personal history of other diseases of the circulatory system - Assessment and plan all Dx Assessment and Plan for all problems:: Dr. Howard's note reviewed. Will discuss further care with Dr. Almanzar. Patient is improving.
--- NOTE | 2019-06-11 08:32 | Pharmacy Consult Notes ---
- Pharmacy Consult Date: 06/11/19 Time: 08:30 Referring provider: DR. HERNANDEZ Reason for Consult:: VANCOMYCIN TROUGH LEVEL AND DOSE CHANGE Allergies and ADEs:: Allergies Allergy/AdvReac Type Severity Reaction Status Date / Time cephalexin [From Keflex] Allergy Unknown Verified 06/06/19 02:02 allergy reaction Home Medications:: Home Medications Medication Instructions Recorded Confirmed Type Ezetimibe 10 mg PO DAILY 01/01/19 06/06/19 History Insulin Lispro Protamin/Lispro 8 unit SQ BID 01/01/19 06/06/19 History [HumaLOG Mix 75/25 3mL flexpen] Levothyroxine Sodium [Synthroid 25 mcg PO DAILY 01/01/19 06/06/19 History 25mcg (0.025mg) tablet] Metformin HCl 500 mg PO BID 01/02/19 06/06/19 History Rivaroxaban [Xarelto 20mg Tablet] 20 mg PO DAILY 01/10/19 06/06/19 History aspirin 81 mg tablet,delayed 81 mg PO DAILY 01/23/19 06/06/19 History release cholecalciferol (vitamin D3) 1,000 1,000 unit PO DAILY 01/23/19 06/06/19 History unit capsule alirocumab 75 mg/mL subcutaneous 75 mg SQ Q2W 03/06/19 06/05/19 History pen injector Azithromycin [Zithromax 250mg 250 mg PO DAILY 06/05/19 06/06/19 History tab] Sucralfate [Sucralfate 1gm 1 gm PO ACHS 06/05/19 06/05/19 History Tab] Amoxicillin/Potassium Clav 1 tab PO Q12H 06/06/19 06/06/19 History [Augmentin 875-125 Tablet] Flecainide Acetate 100 mg PO BID 06/06/19 06/06/19 History Pantoprazole Sodium [Protonix 40mg 40 mg PO HS 06/06/19 06/06/19 History tablet] Height: 1.65 m Weight: 71.724 kg Laboratory Results:: Laboratory Results - last 24 hr 06/10/19 07:18: WBC 5.4, RBC 3.88 L, Hgb 12.4 L, Hct 37.7 L, MCV 97.2 H, MCH 31.9 H, MCHC 32.8, RDW 13.4, Plt Count 588 H D, MPV 7.3 L, Neut % (Auto) 79.7, Lymph % (Auto) 11.2, [place] % (Auto) 4.3, Eos % (Auto) 4.0, Baso % (Auto) 0.8, Neut # (Auto) 4.3, Lymph # (Auto) 0.6 L, [place] # (Auto) 0.2, Eos # (Auto) 0.2, Baso # (Auto) 0.0 06/10/19 11:30: POC Glucose 376 H* 06/10/19 16:36: POC Glucose 226 H 06/10/19 18:33: Vancomycin Trough 7.5 L 06/10/19 20:29: POC Glucose 281 H 06/11/19 05:44: POC Glucose 287 H 06/11/19 07:26: WBC 5.1, RBC 3.70 L, Hgb 11.8 L, Hct 36.7 L, MCV 99.1 H, MCH 31.8 H, MCHC 32.0, RDW 13.5, Plt Count 585 H, MPV 7.1 L, Neut % (Auto) 78.9, Lymph % (Auto) 10.8, [place] % (Auto) 5.8, Eos % (Auto) 3.9, Baso % (Auto) 0.6, Neut # (Auto) 4.0, Lymph # (Auto) 0.6 L, [place] # (Auto) 0.3, Eos # (Auto) 0.2, Baso # (Auto) 0.0 06/11/19 07:26: Sodium 136, Potassium 3.6, Chloride 100, Carbon Dioxide 31, Anion Gap 8.6, BUN 12, Creatinine 1.00, Estimated Creat Clear 72, Estimated GFR 74, Est GFR ( Amer) 90, Glucose 310 H, Calcium 8.4 L Medical History: Reports:: Arrhythmia, Atrial Fibrillation, Diabetes Mellitus Type 2, Hyperlipidemia, Hypertension, Kidney Stones Denies:: Cancer, Diabetes Mellitus Type 1, Internal Pacemaker, MRSA Assessment and Plan (1) Community acquired pneumonia Current visit: Yes Status: Acute Qualifiers: Laterality: right Lung location: unspecified part of lung Qualified Code(s): J18.9 - Pneumonia, unspecified organism Category: Medical Code(s): J18.9 - Pneumonia, unspecified organism (2) History of autoimmune disorder Current visit: No Status: Chronic Category: Medical Code(s): Z86.2 - Personal history of diseases of the blood and blood-forming organs and certain disorders involving the immune mechanism (3) Diabetes Current visit: No Status: Chronic Qualifiers: Diabetes mellitus type: type 2 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 Diabetes mellitus complication status: without complication Qualified Code(s): E11.9 - Type 2 diabetes mellitus without complications; Z79.4 - alf (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 Category: Medical Code(s): E11.9 - Type 2 diabetes mellitus without complications (4) History of cardiac radiofrequency ablation Current visit: Yes Status: Acute Category: Surgical Code(s): Z98.890 - Other specified postprocedural states (5) Ex-smoker for more than 1 year Current visit: No Status: Chronic Category: Social Hx Code(s): Z87.891 - Personal history of nicotine dependence (6) Hyperlipidemia associated with type 2 diabetes mellitus Current visit: No Status: Chronic Category: Medical Code(s): E11.69 - Type 2 diabetes mellitus with other specified complication; E78.5 - Hyperlipidemia, unspecified (7) Cochlear implant in place Current visit: No Status: Chronic Category: Medical Code(s): Z96.21 - Cochlear implant status (8) Hemochromatosis Current visit: No Status: Chronic Qualifiers: Hemochromatosis type: unspecified Qualified Code(s): E83.119 - Hemochromatosis, unspecified Category: Medical Code(s): E83.119 - Hemochromatosis, unspecified (9) History of atrial flutter Current visit: No Status: Chronic Category: Medical Code(s): Z86.79 - Personal history of other diseases of the circulatory system - Assessment and plan all Dx Assessment and Plan for all problems:: BASED ON PATIENT FACTORS AND TROUGH LEVEL OF 7.5, RECOMMEND CHANGE DOSING INTERVAL OF VANCOMYCIN TO EVERY 12 HOURS. PHARMACY WILL CONTINUE TO MONITOR AND WILL ADJUST DOSE APPROPRIATE. -СВЕТЛАНА GILLIS PHARMD
--- NOTE | 2019-06-12 08:33 | Progress Note ---
Internal Medicine - PN: Subj *Date: 06/12/19 *Time: 08:31 Interval history: Patient states he feels a little weaker than he did yesterday. He is now able to cough up a small amount of sputum. He denies any pain. He states he slept well last night and did eat this morning. He denies any shortness of breath. He remains on oxygen. Exam Vital signs and Labs for Last 24 Hours: Temp Pulse Resp BP Pulse Ox 98.4 F 65 16 132/70 95 06/12/19 07:50 06/12/19 07:50 06/12/19 07:50 06/12/19 07:50 06/12/19 07:50 Laboratory Results - last 24 hr 06/11/19 11:30: POC Glucose 362 H* 06/11/19 16:31: POC Glucose 248 H 06/11/19 20:10: POC Glucose 308 H* 06/12/19 06:35: POC Glucose 212 H I & O for Last 24 hours: Intake & Output 06/09/19 06/10/19 06/11/19 06/12/19 11:59 11:59 11:59 11:59 Intake Total 2650 / 2650 2155 / 2155 1809 / 1809 2461 / 2461 Output Total 1325 / 1325 2675 / 2675 3875 / 3875 4480 / 4480 Balance 1325 / 1325 -520 / -520 -2065 / -2065 -2018 / Weight 162 lb 0.997 oz 163 lb 1 oz 158 lb 2 oz 154 lb 9 oz - Constitutional no acute distress - *Routine Respiratory Exam Present: decreased breath sounds. Absent: rales, wheezes - *Routine Cardiovascular Exam Present: RRR - *Routine Abdominal Exam Present: soft, normoactive bowel sounds. Absent: tenderness - *Routine Extremities Exam Absent: cyanosis, clubbing, edema - *Routine Skin Exam Present: warm. Absent: rash - *Routine Neurological Exam Present: alert, oriented X3 Assessment and Plan (1) Pneumonia due to Staphylococcus aureus Current visit: Yes Status: Acute Category: Medical Code(s): J15.211 - Pneumonia due to Methicillin susceptible Staphylococcus aureus (2) Community acquired pneumonia Current visit: Yes Status: Acute Qualifiers: Laterality: right Lung location: unspecified part of lung Qualified Code(s): J18.9 - Pneumonia, unspecified organism Category: Medical Code(s): J18.9 - Pneumonia, unspecified organism (3) History of autoimmune disorder Current visit: No Status: Chronic Category: Medical Code(s): Z86.2 - Personal history of diseases of the blood and blood-forming organs and certain disorders involving the immune mechanism (4) Diabetes Current visit: No Status: Chronic Qualifiers: Diabetes mellitus type: type 2 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 Diabetes mellitus complication status: without complication Qualified Code(s): E11.9 - Type 2 diabetes mellitus without complications; 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 Category: Medical Code(s): E11.9 - Type 2 diabetes mellitus without complications (5) History of cardiac radiofrequency ablation Current visit: Yes Status: Acute Category: Surgical Code(s): Z98.890 - Other specified postprocedural states (6) Ex-smoker for more than 1 year Current visit: No Status: Chronic Category: Social Hx Code(s): Z87.891 - P ersonal history of nicotine dependence (7) Hyperlipidemia associated with type 2 diabetes mellitus Current visit: No Status: Chronic Category: Medical Code(s): E11.69 - Type 2 diabetes mellitus with other specified complication; E78.5 - Hyperlipidemia, unspecified (8) Cochlear implant in place Current visit: No Status: Chronic Category: Medical Code(s): Z96.21 - Cochlear implant status (9) Hemochromatosis Current visit: No Status: Chronic Qualifiers: Hemochromatosis type: unspecified Qualified Code(s): E83.119 - Hemochromatosis, unspecified Category: Medical Code(s): E83.119 - Hemochromatosis, unspecified (10) History of atrial flutter Current visit: No Status: Chronic Category: Medical Code(s): Z86.79 - Personal history of other diseases of the circulatory system - Assessment and plan all Dx Assessment and Plan for all problems:: We will continue IV antibiotics. Dr. Almanzar did contact yesterday to try to transfer patient for bronchoscopy. Still awaiting a bed.
--- NOTE | 2019-06-13 08:27 | Progress Note ---
Internal Medicine - PN: Subj *Date: 06/13/19 *Time: 08:25 Interval history: Patient states he feels "pretty darn good" today. He denies any pain and states his shortness of breath is better as long as he remains on oxygen. He slept well last night and ate a good breakfast this morning. Exam Vital signs and Labs for Last 24 Hours: Temp Pulse Resp BP Pulse Ox 98.8 F 94 H 17 136/78 90 L 06/13/19 03:27 06/13/19 06:30 06/13/19 03:27 06/13/19 03:27 06/13/19 06:30 Laboratory Results - last 24 hr 06/12/19 11:16: POC Glucose 362 H* 06/12/19 16:38: POC Glucose 255 H 06/12/19 20:20: POC Glucose 281 H I & O for Last 24 hours: Intake & Output 06/10/19 06/11/19 06/12/19 06/13/19 11:59 11:59 11:59 11:59 Intake Total 2155 / 2155 1809 / 1809 2461 / 2461 2348 / 2348 Output Total 2675 / 2675 3875 / 3875 4480 / 4480 2125 / 2125 Balance -520 / - -2065 / -2065 -2018 / 223 / 223 Weight 163 lb 1 oz 158 lb 2 oz 154 lb 9 oz 153 lb 0.013 oz - Constitutional no acute distress - *Routine Respiratory Exam Present: decreased breath sounds. Absent: rales, wheezes - *Routine Cardiovascular Exam Present: RRR - *Routine Abdominal Exam Present: soft, normoactive bowel sounds. Absent: tenderness - *Routine Extremities Exam Absent: cyanosis, clubbing, edema - *Routine Skin Exam Present: warm. Absent: rash - *Routine Neurological Exam Present: alert, oriented X3 Assessment and Plan (1) Pneumonia due to Staphylococcus aureus Current visit: Yes Status: Acute Category: Medical Code(s): J15.211 - Pneumonia due to Methicillin susceptible Staphylococcus aureus (2) Community acquired pneumonia Current visit: Yes Status: Acute Qualifiers: Laterality: right Lung location: unspecified part of lung Qualified Code(s): J18.9 - Pneumonia, unspecified organism Category: Medical Code(s): J18.9 - Pneumonia, unspecified organism (3) History of autoimmune disorder Current visit: No Status: Chronic Category: Medical Code(s): Z86.2 - Personal history of diseases of the blood and blood-forming organs and certain disorders involving the immune mechanism (4) Diabetes Current visit: No Status: Chronic Qualifiers: Diabetes mellitus type: type 2 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 Diabetes mellitus complication status: without complication Qualified Code(s): E11.9 - Type 2 diabetes mellitus without complications; Z79.4 - assisted (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 Category: Medical Code(s): E11.9 - Type 2 diabetes mellitus without compli cations (5) History of cardiac radiofrequency ablation Current visit: Yes Status: Acute Category: Surgical Code(s): Z98.890 - Other specified postprocedural states (6) Ex-smoker for more than 1 year Current visit: No Status: Chronic Category: Social Hx Code(s): Z87.891 - Personal history of nicotine dependence (7) Hyperlipidemia associated with type 2 diabetes mellitus Current visit: No Status: Chronic Category: Medical Code(s): E11.69 - Type 2 diabetes mellitus with other specified complication; E78.5 - Hyperlipidemia, unspecified (8) Cochlear implant in place Current visit: No Status: Chronic Category: Medical Code(s): Z96.21 - Cochlear implant status (9) Hemochromatosis Current visit: No Status: Chronic Qualifiers: Hemochromatosis type: unspecified Qualified Code(s): E83.119 - Hemochromatosis, unspecified Category: Medical Code(s): E83.119 - Hemochromatosis, unspecified (10) History of atrial flutter Current visit: No Status: Chronic Category: Medical Code(s): Z86.79 - Personal history of other diseases of the circulatory system - Assessment and plan all Dx Assessment and Plan for all problems:: Still awaiting a bed at . Patient states if the bed does not become available this morning, he would prefer to be discharged home with oxygen for the weekend and go to on an outpatient basis.
[2019-06-13 08:34] LABS: Albumin Level 1.8 gm/dL (3.4-5.0); Albumin/Globulin Ratio 0.3 (1.1-1.8); Anion Gap 8.2 mEq/L (5-15); Bilirubin,Total 0.5 mg/dL (0.2-1.0); Calcium 8.7 mg/dL (8.5-10.1); Globulin 5.2 gm/dl (1.3-3.2)
--- NOTE | 2019-06-13 09:23 | Pharmacy Consult Notes ---
- Pharmacy Consult Date: 06/13/19 Time: 09:22 Referring provider: DR. HERNANDEZ Reason for Consult:: VANCOMYCIN TROUGH LEVEL Allergies and ADEs:: Allergies Allergy/AdvReac Type Severity Reaction Status Date / Time cephalexin [From Keflex] Allergy Unknown Verified 06/06/19 02:02 allergy reaction Home Medications:: Home Medications Medication Instructions Recorded Confirmed Type Ezetimibe 10 mg PO DAILY 01/01/19 06/06/19 History Insulin Lispro Protamin/Lispro 8 unit SQ BID 01/01/19 06/06/19 History [HumaLOG Mix 75/25 3mL flexpen] Levothyroxine Sodium [Synthroid 25 mcg PO DAILY 01/01/19 06/06/19 History 25mcg (0.025mg) tablet] Metformin HCl 500 mg PO BID 01/02/19 06/06/19 History Rivaroxaban [Xarelto 20mg Tablet] 20 mg PO DAILY 01/10/19 06/06/19 History aspirin 81 mg tablet,delayed 81 mg PO DAILY 01/23/19 06/06/19 History release cholecalciferol (vitamin D3) 1,000 1,000 unit PO DAILY 01/23/19 06/06/19 History unit capsule alirocumab 75 mg/mL subcutaneous 75 mg SQ Q2W 03/06/19 06/05/19 History pen injector Azithromycin [Zithromax 250mg 250 mg PO DAILY 06/05/19 06/06/19 History tab] Sucralfate [Sucralfate 1gm 1 gm PO ACHS 06/05/19 06/05/19 History Tab] Amoxicillin/Potassium Clav 1 tab PO Q12H 06/06/19 06/06/19 History [Augmentin 875-125 Tablet] Flecainide Acetate 100 mg PO BID 06/06/19 06/06/19 History Pantoprazole Sodium [Protonix 40mg 40 mg PO HS 06/06/19 06/06/19 History tablet] Height: 1.65 m Weight: 69.4 kg Laboratory Results:: Laboratory Results - last 24 hr 06/12/19 11:16: POC Glucose 362 H* 06/12/19 16:38: POC Glucose 255 H 06/12/19 20:20: POC Glucose 281 H 06/13/19 08:10: Vancomycin Trough 16.8 06/13/19 08:10: Sodium 136, Potassium 4.2, Chloride 101, Carbon Dioxide 31, Anion Gap 8.2, BUN 12, Creatinine 0.98, Estimated Creat Clear 69, Estimated GFR 76, Est GFR ( Amer) 92, Glucose 256 H, Calcium 8.7, Total Bilirubin 0.5, AST 19, ALT 35, Alkaline Phosphatase 150 H, Total Protein 7.0, Albumin 1.8 L, Globulin 5.2 H, Albumin/Globulin Ratio 0.3 L Medical History: Reports:: Arrhythmia, Atrial Fibrillation, Diabetes Mellitus Type 2, Hyperlipidemia, Hypertension, Kidney Stones Denies:: Cancer, Diabetes Mellitus Type 1, Internal Pacemaker, MRSA Assessment and Plan (1) Pneumonia due to Staphylococcus aureus Current visit: Yes Status: Acute Category: Medical Code(s): J15.211 - Pneumonia due to Methicillin susceptible Staphylococcus aureus (2) Community acquired pneumonia Current visit: Yes Status: Acute Qualifiers: Laterality: right Lung location: unspecified part of lung Qualified Code(s): J18.9 - Pneumonia, unspecified organism Category: Medical Code(s): J18.9 - Pneumonia, unspecified organism (3) History of autoimmune disorder Current visit: No Status: Chronic Category: Medical Code(s): Z86.2 - Personal history of diseases of the blood and blood-forming organs and certain disorders involving the immune mechanism (4) Diabetes Current visit: No Status: Chronic Qualifiers: Diabetes mellitus type: type 2 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 Diabetes mellitus complication status: without complication Qualified Code(s): E11.9 - Type 2 diabetes mellitus without complications; Z79.4 - [facility]DC (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 Category: Medical Code(s): E11.9 - Type 2 diabetes mellitus without complications (5) History of cardiac radiofrequency ablation Current visit: Yes Status: Acute Category: Surgical Code(s): Z98.890 - Other specified postprocedural states (6) Ex-smoker for more than 1 year Current visit: No Status: Chronic Category: Social Hx Code(s): Z87.891 - Personal history of nicotine dependence (7) Hyperlipidemia associated with type 2 diabetes mellitus Current visit: No Status: Chronic Category: Medical Code(s): E11.69 - Type 2 diabetes mellitus with other specified complication; E78.5 - Hyperlipidemia, unspecified (8) Cochlear implant in place Current visit: No Status: Chronic Category: Medical Code(s): Z96.21 - Cochlear implant status (9) Hemochromatosis Current visit: No Status: Chronic Qualifiers: Hemochromatosis type: unspecified Qualified Code(s): E83.119 - Hemochromatosis, unspecified Category: Medical Code(s): E83.119 - Hemochromatosis, unspecified (10) History of atrial flutter Current visit: No Status: Chronic Category: Medical Code(s): Z86.79 - Personal history of other diseases of the circulatory system - Assessment and plan all Dx Assessment and Plan for all problems:: BASED ON VANCOMYCIN TROUGH LEVEL AND PATIENT FACTORS, RECOMMEND CONTINUING VANCOMYCIN 1500 MG IV Q12H. PHARMACY WILL CONTINUE TO MONITOR DAILY AND ADJUST APPROPRIATE.
--- NOTE | 2019-06-13 10:42 | Progress Note ---
Internal Medicine - PN: Subj *Date: 06/13/19 *Time: 10:41 Exam Vital signs and Labs for Last 24 Hours: Temp Pulse Resp BP Pulse Ox 98.0 F 96 H 21 117/70 94 L 06/13/19 08:00 06/13/19 10:00 06/13/19 08:00 06/13/19 08:00 06/13/19 08:00 Laboratory Results - last 24 hr 06/12/19 11:16: POC Glucose 362 H* 06/12/19 16:38: POC Glucose 255 H 06/12/19 20:20: POC Glucose 281 H 06/13/19 08:10: Vancomycin Trough 16.8 06/13/19 08:10: Sodium 136, Potassium 4.2, Chloride 101, Carbon Dioxide 31, Anion Gap 8.2, BUN 12, Creatinine 0.98, Estimated Creat Clear 69, Estimated GFR 76, Est GFR ( Amer) 92, Glucose 256 H, Calcium 8.7, Total Bilirubin 0.5, AST 19, ALT 35, Alkaline Phosphatase 150 H, Total Protein 7.0, Albumin 1.8 L, Globulin 5.2 H, Albumin/Globulin Ratio 0.3 L I & O for Last 24 hours: Intake & Output 06/10/19 06/11/19 06/12/19 06/13/19 23:59 23:59 23:59 23:59 Intake Total 1956 / 1956 3053 / 3053 1396 / 1396 Output Total 5400 / 5400 3325 / 3675 3430 / 3430 1875 / 1875 Balance -3443 / -3443 -1322 / -1672 -377 / -377 -479 / -479 Weight 73.964 kg 71.724 kg 70.108 kg 69.4 kg Assessment and Plan (1) Pneumonia due to Staphylococcus aureus Current visit: Yes Status: Acute Category: Medical Code(s): J15.211 - Pneumonia due to Methicillin susceptible Staphylococcus aureus (2) Community acquired pneumonia Current visit: Yes Status: Acute Qualifiers: Laterality: right Lung location: unspecified part of lung Qualified Code(s): J18.9 - Pneumonia, unspecified organism Category: Medical Code(s): J18.9 - Pneumonia, unspecified organism (3) History of autoimmune disorder Current visit: No Status: Chronic Category: Medical Code(s): Z86.2 - Personal history of diseases of the blood and blood-forming organs and certain disorders involving the immune mechanism (4) Diabetes Current visit: No Status: Chronic Qualifiers: Diabetes mellitus type: type 2 Diabetes mellitus 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 filler cigar roller 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 insulin use: with fci use Diabetes mellitus complication status: without complication Qualified Code(s): E11.9 - Type 2 diabetes mellitus without complications; Z79.4 - group home (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 Category: Medical Code(s): E11.9 - Type 2 diabetes mellitus without complications (5) History of cardiac radiofrequency ablation Current visit: Yes Status: Acute Category: Surgical Code(s): Z98.890 - Other specified postprocedural states (6) Ex-smoker for more than 1 year Current visit: No Status: Chronic Category: Social Hx Code(s): Z87.891 - Personal history of nicotine dependence (7) Hyperlipidemia associated with type 2 diabetes mellitus Current visit: No Status: Chronic Category: Medical Code(s): E11.69 - Type 2 diabetes mellitus with other specified complication; E78.5 - Hyperlipidemia, unspecified (8) Cochlear implant in place Current visit: No Status: Chronic Category: Medical Code(s): Z96.21 - Cochlear implant status (9) Hemochromatosis Current visit: No Status: Chronic Qualifiers: Hemochromatosis type: unspecified Qualified Code(s): E83.119 - Hemochromatosis, unspecified Category: Medical Code(s): E83.119 - Hemochromatosis, unspecified (10) History of atrial flutter Current visit: No Status: Chronic Category: Medical Code(s): Z86.79 - Personal history of other diseases of the circulatory system The patient's infection will respond to the chosen ABx?: Yes Is the patient receiving the right drug, dose, and route?: Yes Could a more targeted ABx be ordered?: No (SPUTUM CULTURE WITH S. AUREUS SENS ITIVE TO VANC. AFEBRILE AND WBC WNL)
--- NOTE | 2019-06-14 10:04 | Progress Note ---
Internal Medicine - PN: Subj *Date: 06/14/19 *Time: 10:01 Interval history: Transfer to [facility] was arranged for 11 June but the [place] was not able to comply with a bed being available. The patient is stable at this point and ready for discharge to see how well he does at home. He is definitely improved but still quite short of breath. Interestingly his oxygen saturations remain above 90 for the most part. This raises the question of whether he can qualify with insurance for oxygen. He definitely needs to continue with nasal O2. He remains quite weak. He is moving air better bilaterally though he is still quite decreased bilaterally. He is not edematous at this point. He remains in normal sinus rhythm. His white count is not elevated and his blood chemistries are stable. Exam Vital signs and Labs for Last 24 Hours: Temp Pulse Resp BP Pulse Ox 98.5 F 64 16 121/65 95 06/14/19 09:03 06/14/19 09:03 06/14/19 09:03 06/14/19 09:03 06/14/19 09:03 Laboratory Results - last 24 hr 06/13/19 05:31: POC Glucose 245 H 06/13/19 10:57: POC Glucose 311 H* 06/13/19 16:18: POC Glucose 250 H 06/13/19 20:59: POC Glucose 324 H* 06/14/19 06:13: POC Glucose 254 H I & O for Last 24 hours: Intake & Output 06/11/19 06/12/19 06/13/19 06/14/19 11:59 11:59 11:59 11:59 Intake Total 1809 / 1809 2461 / 2461 2828 / 2828 1906 / 1906 Output Total 3875 / 3875 4480 / 4480 3625 / 4225 2640 / 2640 Balance -2066 / -2066 -2019 / -2019 -797 / -1397 -734 / -734 Weight 158 lb 2 oz 154 lb 9 oz 153 lb 0.013 oz 152 lb 8 oz - Constitutional no acute distress (He is weak) - *Routine HEENT Exam Head: Present: normocephalic (But with cochlear implant in place.) ENT: Present: mucous membranes moist - *Routine Respiratory Exam Present: decreased breath sounds Comments: Bronchophony in the right upper chest - *Routine Cardiovascular Exam Present: RRR - *Routine Abdominal Exam Present: soft. Absent: tenderness - *Routine Extremities Exam Present: edema (Only some pedal edema) - *Routine Neurological Exam Present: alert, oriented X3. Absent: motor deficit Assessment and Plan (1) Pneumonia due to Staphylococcus aureus Current visit: Yes Status: Acute Category: Medical Code(s): J15.211 - Pneumonia due to Methicillin susceptible Staphylococcus aureus (2) Community acquired pneumonia Current visit: Yes Status: Acute Qualifiers: Laterality: right Lung location: unspecified part of lung Qualified Code(s): J18.9 - Pneumonia, unspecified organism Category: Medical Code(s): J18.9 - Pneumonia, unspecified organism (3) History of autoimmune disorder Current visit: No Status: Chronic Category: Medical Code(s): Z86.2 - Personal history of diseases of the blood and blood-forming organs and certain disorders involving the immune mechanism (4) Diabetes Current visit: No Status: Chronic Qualifiers: Diabetes mellitus type: type 2 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 insulin use: with care home use Diabetes mellitus complication status: without complication Qualified Code(s): E11.9 - Type 2 diabetes mellitus without complications; Z79.4 - long-term (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 Category: Medical Code(s): E11.9 - Type 2 diabetes mellitus without complications (5) History of cardiac radiofrequency ablation Current visit: Yes Status: Acute Category: Surgical Code(s): Z98.890 - Other specified postprocedural states (6) Ex-smoker for more than 1 year Current visit: No Status: Chronic Category: Social Hx Code(s): Z87.891 - Personal history of nicotine dependence (7) Hyperlipidemia associated with type 2 diabetes mellitus Current visit: No Status: Chronic Category: Medical Code(s): E11.69 - Type 2 diabetes mellitus with other specified complication; E78.5 - Hyperlipidemia, unspecified (8) Cochlear implant in place Current visit: No Status: Chronic Category: Medical Code(s): Z96.21 - Cochlear implant status (9) Hemochromatosis Current visit: No Status: Chronic Qualifiers: Hemochromatosis type: unspecified Qualified Code(s): E83.119 - Hemochromatosis, unspecified Category: Medical Code(s): E83.119 - Hemochromatosis, unspecified (10) History of atrial flutter Current visit: No Status: Chronic Category: Medical Code(s): Z86.79 - Personal history of other diseases of the circulatory system - Assessment and plan all Dx Assessment and Plan for all problems:: I will discharge the patient today. He needs to be on nasal O2. We will continue him on clindamycin p.o. Dr. Almanzar we will see the patient June 16 Dr. Howard is to see the patient in clinic June 17. He will need bronchoscopy.
--- NOTE | 2019-06-16 16:29 | Discharge Summary ---
General - General Admission date:: 06/06/19 Discharge date: 06/14/19 HPI HPI: Mr. Trevino is a 69-year-old male who started feeling sick over the weekend with pinkeye and a headache. He was scheduled for an ablation on Sunday at and therefore went to on Sunday to see if they would still do the ablation since he was sick. He stated he was given an ointment for his eye, some Mucinex, and ibuprofen. He rested all day on Sunday and felt better on Sunday. He therefore presented to for the ablation on Sun. Apparently he had a CT scan before the procedure to look at his pulmonary veins and it was discovered that he had a pneumonia in the right lung and a possible mass. He also had a repeat CT scan after the procedure yesterday morning. According to his , when his endotracheal tube was removed after his ablation, the anesthesiologist said that "a lot of gunk came out". He was kept overnight after the procedure. He began running a fever yesterday. He was started on oral Augmentin and Zithromax. He was also started on an inhaler and was discharged home from on sucralfate and Protonix. He continued to feel worse and became very short of breath and therefore presented to the emergency room at [facility]. His blood pressure was running high and he was felt to have a pneumonia. He was admitted for further evaluation and treatment. Hospital Course Hospital Course: On admission pneumonia protocol was initiated. He did initially feel better. He had an increase in his weight with leg edema and Lasix was initiated. This was gradually increased to where he was receiving 60 mg twice daily. Chest x- ray did not improve and he continued to be short of breath. Vancomycin was added when cultures revealed staph aureus. He very slowly improved with continuing shortness of breath and did develop a nonproductive cough. Blood sugars were elevated and he was restarted back on his metformin and continued on the sliding scale. He was seen by Dr. Howard who recommended bronchoscopy at [facility]. On 06/11 Dr. Almanzar arrange for transfer to but bed was not available. He continued to feel weak but on 06/13 he actually stated he felt good. Shortness of breath had improved. Patient remained in sinus rhythm throughout his stay. On 06/14/2019 patient remained stable and he was ready for discharge. [facility] reported no available beds. Patient was discharged to home in stable and satisfactory condition. He was to be scheduled for bronchoscopy on an outpatient basis. Patient was discharged with home oxygen, clindamycin, and follow-up with Dr. Almanzar on 06/16/[address] Howard on 06/17/2019. See medication list. Objective Vital signs: Temp Pulse Resp BP Pulse Ox 98.5 F 106 H 16 121/65 87 L 06/14/19 09:03 06/14/19 13:25 06/14/19 09:03 06/14/19 09:03 06/14/19 10:51 Narrative: Exam Vital signs and Labs for Last 24 Hours: Temp Pulse Resp BP Pulse Ox 98.5 F 64 16 121/65 95 06/14/19 09:03 06/14/19 09:03 06/14/19 09:03 06/14/19 09:03 06/14/19 09:03 Laboratory Results - last 24 hr 06/13/19 05:31: POC Glucose 245 H 06/13/19 10:57: POC Glucose 311 H* 06/13/19 16:18: POC Glucose 250 H 06/13/19 20:59: POC Glucose 324 H* 06/14/19 06:13: POC Glucose 254 H I & O for Last 24 hours: Intake & Output 06/11/19 06/12/19 06/13/19 06/14/19 11:59 11:59 11:59 11:59 Intake Total 1809 / 1809 2461 / 2461 2828 / 2828 1906 / 1906 Output Total 3875 / 3875 4480 / 4480 3625 / 4225 2640 / 2640 Balance -2066 / -206 -2018 / -2019 -797 / -1397 -734 / -734 Weight 158 lb 2 oz 154 lb 9 oz 153 lb 0.013 oz 152 lb 8 oz - Constitutional no acute distress (He is weak) - *Routine HEENT Exam Head: Present: normocephalic (But with cochlear implant in place.) ENT: Present: mucous membranes moist - *Routine Respiratory Exam Present: decreased breath sounds Comments: Bronchophony in the right upper chest - *Routine Cardiovascular Exam Present: RRR - *Routine Abdominal Exam Present: soft. Absent: tenderness - *Routine Extremities Exam Present: edema (Only some pedal edema) - *Routine Neurological Exam Present: alert, oriented X3. Absent: motor deficit Results Completed studies during hospitalization [Text1]: Chest x-ray 06/05/2019 IMPRESSION: Right upper lobe pneumonia with elevated right hemidiaphragm and small bilateral pleural effusion Chest x-ray 06/08/2019 IMPRESSION: Worsening right upper and right lower lobe pneumonia with enlarging right effusion. Possible hilar mass. Consider chest CT with contrast for further evaluation to exclude a postobstructive lesion Mild left basilar atelectasis with small left effusion Chest x-ray 06/09/2019 IMPRESSION: 1. Overall no change in the right upper lobe pneumonia and left basilar atelectasis or infiltrate with small left effusion. 2. Slight increase in size of right pleural effusion. Chest x-ray 06/13/2019 IMPRESSION: Persistent but improving right upper lobe pneumonia with persistent moderate-sized right effusion, elevated right hemidiaphragm, small left effusion with mild left basilar atelectasis Laboratory Tests 06/11/19 06/13/19 07:26 08:10 WBC 5.1 RBC 3.70 L Hgb 11.8 L Hct 36.7 L MCV 99.1 H MCH 31.8 H Sodium 136 Potassium 4.2 Chloride 101 Carbon Dioxide 31 Anion Gap 8.2 BUN 12 Creatinine 0.98 Estimated Creat Clear 69 Estimated GFR 76 Est GFR ( Amer) 92 Glucose 256 H Calcium 8.7 Total Bilirubin 0.5 AST 19 ALT 35 Alkaline Phosphatase 150 H Total Protein 7.0 Albumin 1.8 L Globulin 5.2 H Albumin/Globulin Ratio 0.3 L Labs on day of discharge: Labs from last 24 hours 06/11/19 06/11/19 16:00 07:26 Blastomyces Antibody Negative Histoplasma Antibody Negative U Histopl Galactoman Ag <0.5 Aspergillus flavus Ab Negative Aspergill fumigatus Ab Negative Aspergillus niger Ab Negative Ref Test Comments Comment DS: Diagnosis - Discharge Diagnosis (1) Pneumonia due to Staphylococcus aureus Status: Acute (2) Community acquired pneumonia Status: Acute (3) History of autoimmune disorder Status: Chronic (4) Diabetes Status: Chronic (5) History of cardiac radiofrequency ablation Status: Acute (6) Ex-smoker for more than 1 year Status: Chronic (7) Hyperlipidemia associated with type 2 diabetes mellitus Status: Chronic (8) Cochlear implant in place Status: Chronic (9) Hemochromatosis Status: Chronic (10) History of atrial flutter Status: Chronic Discharge Plan - Patient Discharge Instructions ACTIVITY: Limited activity Patient Instructions: Pneumonia-Adult, Methicillin-Resistant Staph Infection, Pneumococcal Vaccine, DI for Pneumonia -- Adult, DI for Multiple Drug-resistant Organism (MDRO) Infection - Follow up Plan Follow up with: Shirley Almanzar MD [Primary Care Provider] - 06/16/19 Francesco Howard MD [Consulting Physician] - 06/17/19 2:40 pm Disposition: Home, Self-Group Home Medications: Home Medications Medication Instructions Recorded Confirmed Type Ezetimibe 10 mg PO DAILY 01/01/19 06/06/19 History Insulin Lispro Protamin/Lispro 8 unit SQ BID 01/01/19 06/06/19 History [HumaLOG Mix 75/25 3mL flexpen] Levothyroxine Sodium [Synthroid 25 mcg PO DAILY 01/01/19 06/06/19 History 25mcg (0.025mg) tablet] Metformin HCl 500 mg PO BID 01/02/19 06/06/19 History Rivaroxaban [Xarelto 20mg Tablet] 20 mg PO DAILY 01/10/19 06/06/19 History aspirin 81 mg tablet,delayed 81 mg PO DAILY 01/23/19 06/06/19 History release cholecalciferol (vitamin D3) 1,000 1,000 unit PO DAILY 01/23/19 06/06/19 History unit capsule alirocumab 75 mg/mL subcutaneous 75 mg SQ Q2W 03/06/19 06/05/19 History pen injector Sucralfate [Sucralfate 1gm 1 gm PO ACHS 06/05/19 06/05/19 History Tab] Flecainide Acetate 100 mg PO BID 06/06/19 06/06/19 History Pantoprazole Sodium [Protonix 40mg 40 mg PO HS 06/06/19 06/06/19 History tablet] Clindamycin HCl [Clindamycin HCl 300 mg PO TID #20 cap 06/14/19 Rx 300mg Cap] Furosemide [Furosemide 40MG tAB] 40 mg PO BID #60 tab 06/14/19 Rx Ipratropium/Albuterol Sulfate 3 ml IH QIDRT #90 ampul.neb 06/14/19 Rx [Duoneb 3mL neb] Potassium Chloride [Klor-con 20 20 meq PO DAILY #30 tab 06/14/19 Rx mEq tablet] Prescriptions/Medication Reconciliation: New Ipratropium/Albuterol Sulfate [Duoneb 3mL neb] 3 ml QIDRT #90 ampul.neb Potassium Chloride [Klor-con 20 mEq tablet] 20 meq PO DAILY #30 tab Furosemide [Furosemide 40MG tAB] 40 mg PO BID #60 tab Clindamycin HCl [Clindamycin HCl 300mg Cap] 300 mg PO TID #20 cap Continued alirocumab 75 mg/mL subcutaneous pen injector 75 mg SQ Q2W aspirin 81 mg tablet,delayed release 81 mg PO DAILY cholecalciferol (vitamin D3) 1,000 unit capsule 1,000 unit PO DAILY Levothyroxine Sodium [Synthroid 25mcg (0.025mg) tablet] 25 mcg PO DAILY Insulin Lispro Protamin/Lispro [HumaLOG Mix 75/25 3mL flexpen] 8 unit SQ BID Ezetimibe 10 mg PO DAILY Metformin HCl 500 mg PO BID Rivaroxaban [Xarelto 20mg Tablet] 20 mg PO DAILY Sucralfate [Sucralfate 1gm Tab] 1 gm PO ACHS Flecainide Acetate 100 mg PO BID Pantoprazole Sodium [Protonix 40mg tablet] 40 mg PO HS Discontinued Azithromycin [Zithromax 250mg tab] 250 mg PO DAILY Amoxicillin/Potassium Clav [Augmentin 875-125 Tablet] 1 tab PO Q12H - Problem Reconciliation Problems Reviewed?: Yes
== END 2019-06-14 13:53 | disposition home or self-care (01) | DRG 177 ==
LOC: 2ND 22:09 → ER 22:09 → OBSVTOIN 06-06 01:39 → 2ND 06-06 01:40
PROVIDERS: ADMIT Family Medicine; ATTEND Family Medicine
CPT/HCPCS: 36415; 71020; 71046; 80048; 80053; 80202; 82962; 83605; 84484; 85007; 85025; 86606; 86612; 86698; 87040; 87070; 87077; 87186; 87205; 87385; 87507; 93005; 94640; 94761; 96365; 96367; 97110; 97161; 97530; 99285; J0456; J2543; J3370

== ENCOUNTER → 2019-07-09 12:16 | Outpatient (CLI) | payer BC, SELFPAY ==
--- NOTE | 2019-07-09 12:27 | XR_ITS ---
PROCEDURE: XR CHEST 2V CLINICAL HISTORY: PNEUMONIA COMPARISON: CHESTWO CT chest wo con from 12/31/2018 Chest from 06/05/2019 Chest from 06/08/2019 Chest from 06/13/2019 FINDINGS: Normal heart size. Blunting of both CP angles right more so than left consistent with bilateral pleural effusions. This is slightly improved on the right. Right upper lobe pneumonia once again noted but has shown some improvement. Degenerative change thoracic spine IMPRESSION: Persistent but improving right upper lobe pneumonia and right-sided pleural effusion. No change small left pleural effusion Dictated by: Mahad Brown MD 07/09/2019 17:20 <Electronically signed by Mahad Brown MD in [place]> 07/09/2019 17:20
== END ==
PROVIDERS: PCP Family Medicine; Visit Provider Family Medicine
DX: J15.212 Pneumonia due to Methicillin resistant Staphylococcus aureus (principal)
CPT/HCPCS: 71046

== ENCOUNTER 2019-08-07 09:02 | Outpatient (RCR) | payer BC, MEDICARE, SELFPAY | END 2019-09-29 13:22 | disposition home or self-care (01) | LOC: PT 09:02 | PROVIDERS: Visit Provider Family Medicine | DX: J15.212 Pneumonia due to Methicillin resistant Staphylococcus aureus (principal) | CPT/HCPCS: G0237; G0238; G0239 ==

== ENCOUNTER → 2020-01-19 08:48 | Outpatient (CLI) | payer BC, MEDICARE, SELFPAY ==
--- NOTE | 2020-01-19 09:40 | US_ITS ---
PROCEDURE: US ABDOMEN COMPLETE CLINICAL INDICATION: FU HEP, IMFLAMMATION OF LIVER, FIBROSIS STAGE 2,HEMOCROMATOS Hemochromatosis COMPARISON: ABDW CT ABD W/ CONTRAST from 07/28/2016 RUQ US RUQ-(ABD LTD)1ORGAN/QUAD/FU from 10/30/[address] abdomen w con from 06/19/[address] chest wo con from 12/31/2018 FINDINGS: PANCREAS: Unremarkable. No obvious mass or abnormal fluid collection. No ductal dilatation LIVER: No focal liver lesion evident. There is appropriate direction of blood flow within non dilated portal vein measuring approximately 10 mm. No biliary dilatation. The liver somewhat hypoechoic RIGHT KIDNEY: Unremarkable. Normal size and echogenicity. No hydronephrosis LEFT KIDNEY: Unremarkable. Normal size and echogenicity. No hydronephrosis GALLBLADDER: There are multiple gallstones present. Common bile duct is normal at 4 mm. AORTA: Minimal dilatation of the mid abdominal aorta at 2.8 cm SPLEEN: Unremarkable. Normal size and echogenicity ASCITES: None demonstrated. IMPRESSION: 1. Cholelithiasis. 2. Nonspecific decreased echogenicity of the liver with appropriate direction of blood flow within non dilated portal vein Dictated by: Mahad Brown MD 01/19/2020 16:18 Electronically signed by Mahad Brown MD in [place] 01/19/2020 16:18
== END ==
PROVIDERS: PCP Family Medicine; Visit Provider Internal Medicine
DX: R93.5 Abnormal findings on diagnostic imaging of other abdominal regions, including retroperitoneum (principal)
CPT/HCPCS: 76700

== ENCOUNTER → 2020-12-28 12:43 | Outpatient (CLI) | payer BC, SELFPAY ==
[2020-12-28 13:05] LABS: Blood Urea Nitrogen 17 mg/dl (9-20); Estimated Glomerular Filt Rate 96 ml/min (>60); GFR (African American) 116 ML/MIN (>60)
--- NOTE | 2020-12-28 13:06 | CT_ITS ---
PROCEDURE: CT CHEST W CON CLINCAL INDICATION: ABN FINDING ON DX IMAGING OF LUNG Follow-up pulmonary nodules Multiple nodules Pneumonia x2yrs ago COMPARISON: CT CHESTWO CT chest wo con from 12/31/2018 TECHNIQUE: IV Contrast: 75ml Isovue 370 Axial images obtained with sagittal and coronal reformats. All CT scans at the facility use one or more dose reduction, viz: automated exposure control, ma/kV adjustment per patient size (including targeted exams where dose is matched to indication, i.e. head), or iterative reconstruction technique. FINDINGS: Coronary artery calcifications are present. No mediastinal or hilar mass or adenopathy. There are few scattered small mediastinal and hilar lymph nodes which are not significantly changed some which are calcified. There is a small hiatal hernia. Stable 8 mm nodule within the right upper lobe medially. There is mild nodularity in the right minor fissure. There is pleural thickening in the right middle lobe laterally. There is a stable 5 mm nodule in the right lower lobe laterally. Atelectatic changes are present in the right lung base posteriorly. There is trace right-sided effusion. Pleural thickening is also present in the left lower lobe posterior laterally with some calcification. This area does not appear significantly changed. Pleural thickening present in the left lung base posteriorly. Subpleural nodularity noted in the left lower lobe is not significantly changed. There is a stable 6 mm nodule in the subpleural region of the left upper lobe. There are degenerative changes in the thoracic spine. Upper abdominal images show cholelithiasis. IMPRESSION: 1. Stable right upper, right lower, and left lower lobe nodules 2. There is several nodular areas of thickening within the right minor fissure and major fissure nonspecific and may be due to small nodes within the fissures. These areas are slightly more prominent compared to the previous exam. 3. Increasing pleural thickening in the right lower lobe laterally with persistent pleural thickening with some nodularity in the left lower lobe 4. Cholelithiasis Dictated by: Mahad Brown MD 12/29/2020 15:26 Mahad Brown MD in [place] 12/29/2020 15:26
== END ==
PROVIDERS: PCP Family Medicine; Visit Provider Internal Medicine
DX: R91.8 Other nonspecific abnormal finding of lung field (principal)
CPT/HCPCS: 36415; 71260; 82565; 84520; Q9967

== ENCOUNTER → 2021-12-16 10:41 | Outpatient (CLI) | payer MEDICARE, SELFPAY ==
--- NOTE | 2021-12-16 | CA_ITS ---
APPROVED REPORT Exam: Exercise Treadmill Technologist: Caitlyn Plaza, Ht: 5 ft 5 in Wt: 171 lbs BSA: 1.85 m2 HR: 77 bpm BP: 133/77 mmHg Medical History Medications: Levothyroxine,,,,, Aspirin,,,,, Metformin,,,,, Vitamin D3,,,,, XaRELTO,,,,, INSULIN,,,,, Albuterol,,,,, Sucralfate,,,,, Protonix,,,,, Ezetimibe,,,,, ALIrocumab,,,,, Stress Test Details Test: Wayne HR Resting HR: 88 bpm Max Heart Rate (APMHR): 150 bpm Max HR Achieved: 126 bpm Target HR (85% APMHR): 128 bpm % of APMHR: 84 Recovery HR: 85 bpm BP Resting BP: 131/77 mmHg Max BP: 185/78 mmHg Recovery BP: 134.0/73.0 mmHg ECG Clinical Exercise duration: 05:52 min Highest Stage Achieved: Exercise capacity: 7.0 METs Stress ECG Conclusion Test stopped due to: SOA Symptoms: SOA with exercise. No Chest pain. Arrhythmias/Ectopy: ST-T Changes: Conclusion: The EKG portion of the [employer] My[employer] is nondiagnostic. Test Summary REST . . . . . . . Sitting REST 20:37 0.0 0.0 88 . 131/ 77 . . Stage 1 01:00 10.0 1.7 97 . . . . Stage 1 02:00 10.0 1.7 106 . . . . Stage 1 03:00 10.0 1.7 111 . 140/ 90 . . Stage 2 01:00 12.0 2.5 118 . . . . Stage 2 02:00 12.0 2.5 124 . . . . Stage 2 . . . . . . . Cardiolite injected Stage 2 02:52 12.0 2.5 126 . . . Stop exercise at 05:52 RECOVERY 01:00 0.0 0.0 112 . 168/ 89 . . RECOVERY 02:00 0.0 0.0 96 . 168/ 89 . . RECOVERY 03:00 0.0 0.0 90 . 185/ 78 . . RECOVERY 04:00 0.0 0.0 90 . 185/ 78 . . RECOVERY 05:00 0.0 0.0 86 . 146/ 80 . . RECOVERY 05:43 0.0 0.0 85 . 134/ 73 . . Electronically signed by : Danish Nash MD 12/16/2021 15:23:20
--- NOTE | 2021-12-16 12:54 | NM_ITS ---
APPROVED REPORT Exam: Nuclear Stress Test Indication: HTN, D.M., HYPERLIPIDEMIA, SOB, FATIGUE, H/O ABLATION Patient Location: Outpatient Stress Tech: Caitlyn Mak [place] Tech:HUGO Flores RT (R)(N)(M) Ht: 5 ft 5 in Wt: 171 lbs HR: 77 bpm BP: 133/77 mmHg BSA: 1.85 m2 BMI: 28.4 History: HTN, D.M., HYPERLIPIDEMIA, SOB, FATIGUE, H/O ABLATION Procedure: Patient exercised on Wayne protocol 5:52 minutes and sec, resting heart rate 77 bpm, resting blood pressure 133/77 mmHg, with exercise maximum heart rate achived was 126 bpm which is 84 % of the maximum predicted heart rate and blood pressure was 168/89 mmHg. Test was stopped due to sob, fatigue. Patient denied any complaint of chest pain. Patient has adequate exercise capacity, achieved 7.0 METs of workload on treadmill, the blood pressure response to exercise was Adequate. Electrocardiogram Resting electrocardiogram shows sinus rhythm, with exercise there is less than 1.[address] segment depression noted from the baseline EKG. The EKG portion of the exercise Myoview was nondiagnostic as patient did not achieve the target heart rate. Cardiac Stress and Resting SPECT Images: Cardiac Stress and Resting SPECT images were obtained using technetium 99m Myoview 31.7 mCi stress and 9.98 mCi at rest. Gated SPECT for analysis of segmental wall motion and calculation of the ejection fraction also done. Prone images were also obtained. Cardiac stress and resting SPECT may show uniform myocardial activity without segmental perfusion abnormality, computer derived ejection fraction is 58% with no regional wall motion abnormality, right ventricle is normal size and contractility. Conclusion: 1. The EKG portion of the exercise Myoview is nondiagnostic as patient did not achieve the target heart rate, patient has adequate exercise capacity achieved 7 METS of workload on treadmill, the blood pressure response to exercise was adequate, there was no exercise-induced chest discomfort. 2. No scintigraphic evidence of reversible ischemia seen, computer derived ejection fraction 58% with no regional wall motion abnormality, right ventricle is normal size and contractility. Electronically signed by : Danish Nash MD 12/16/2021 15:25:52
== END ==
PROVIDERS: PCP Family Medicine; Visit Provider Family Medicine
DX: R06.09 Other forms of dyspnea (principal)
CPT/HCPCS: 78452; 93017; A9502

== ENCOUNTER 2022-12-30 04:26 | Emergency (ER) | payer MEDICARE, SELFPAY ==
[2022-12-30 04:38] VITALS: BP 113/57; PULSE 133; RESP 25; TEMP 37.2; O2SAT 95; BMI 25.0
--- NOTE | 2022-12-30 04:40 | PC.NURSE ---
Dr. Puentes at BS to speak with pt
--- NOTE | 2022-12-30 04:45 | XR_ITS ---
PROCEDURE INFORMATION: Exam: XR Chest Exam date and time: 12/30/2022 5:05 AM Age: 72 years old Clinical indication: Shortness of breath; Additional info: SOA, tachycardia TECHNIQUE: Imaging protocol: Radiologic exam of the chest. Views: 1 view. COMPARISON: CT CHEST W CON 12/28/2020 1:30 PM FINDINGS: Lungs: Mild underinflation. Mild patchy peripheral opacities within lung bases, LEFT greater than RIGHT. Pleural spaces: Small bilateral pleural effusions. No pneumothorax. Heart/Mediastinum: No cardiomegaly. Atherosclerosis of thoracic aorta. Bones/joints: No displaced fracture. Degenerative changes of spine. Soft tissues: Unremarkable. IMPRESSION: 1. Small pleural effusions. 2. Bibasilar peripheral opacities, possibly representing pneumonia and/or fibrosis. Radiographic follow-up is recommended to exclude underlying pathology.
--- NOTE | 2022-12-30 04:49 | ECG_ITS ---
APPROVED REPORT Exam: Resting ECG HR:126 bpm ECG Measurements Heart Rate 126 AXES ME 154 P 51 QRSd 95 QRS -64 QT 342 T 38 QTc 417 Conclusion SINUS TACHYCARDIA LEFT AXIS DEVIATION [QRS AXIS < -30] PATTERN CONSISTENT WITH PULMONARY DISEASE MINIMAL ST DEPRESSION [0.025+ mV ST DEPRESSION] ABNORMAL ECG UNCONFIRMED REPORT Electronically signed by : Keo Amezquita MD 01/01/2023 19:27:25
--- NOTE | 2022-12-30 04:53 | HMH.EDGENADL ---
Discharge Plan Disposition Chief Complaint: Fever Prescriptions Prescriptions: New azithromycin [Zithromax Z-Archie] 250 mg tablet See Rx Instructions .ROUTE .COMPLEX Qty: 6 0RF Rx Instructions: For 250 mg dose pack: take 500 mg today (day 1), then 250 mg for 4 days (days 2-5) amoxicillin-pot clavulanate [Augmentin] 500-125 mg tablet 1 tab PO TID 5 Days Qty: 15 0RF No Action aspirin [Adult Low Dose Aspirin] 81 mg tablet,delayed release (DR/EC) 81 mg PO DAILY cholecalciferol (vitamin D3) 1,000 unit capsule 1,000 unit PO DAILY Praluent Pen 75 mg/mL pen injector 75 mg SQ Q2W rivaroxaban 20 MG tablet 20 mg PO DAILY levothyroxine 25 MCG tablet 25 mcg PO DAILY insulin lispro protamin-lispro 75-25/M insulin pen 8 unit SQ BID ezetimibe 10 MG tablet 10 mg PO DAILY metformin 500 MG tablet 500 mg PO BID sucralfate 1 GM tablet 1 gm PO ACHS flecainide 100 MG tablet 100 mg PO BID pantoprazole 40 MG tablet,delayed release (DR/EC) 40 mg PO HS ipratropium-albuterol 3 ML solution for nebulization 3 ml IH QIDRT Qty: 90 2RF potassium chloride 20 MEQ tablet 20 meq PO DAILY Qty: 30 2RF clindamycin HCl 300 MG capsule 300 mg PO TID Qty: 20 0RF furosemide 40 MG tablet 40 mg PO BID Qty: 60 2RF Referrals Follow up/Referrals: Shirley Almanzar MD [Primary Care Provider] - See instructions Discharge ED Provider: Bart Puentes Adult HPI General Chief complaint: Fever Stated complaint: Fever,Chills Time Seen by Provider: 12/30/22 04:57 Mode of Arrival: Ambulatory Source of Information: Patient Limitations: No Limitations Description of Symptoms (Recalled from ER Triage Doc. by RN): Pt states that he began having chills and fever last night at roughly 1900. Tmax of 103 per pt, successfully treated fever with ibuprofen. Pt denies any headache, nausea, vomiting or diarrhea. History of Present Illness HPI narrative: Patient presents for evaluation of fever, chills, tachycardia, shortness of breath. Patient has a past medical history significant for hemochromatosis, atrial fibrillation status post ablation procedure, diabetes. Patient states last night he began noticing the symptoms and took his temperature at home which was noticed to be 103. Since that time he is taken ibuprofen multiple times, but continued to feel feverish, have chills, and shortness of breath. He has not had nausea, vomiting, diarrhea. Patient does report having body aches since yesterday. Related Data Home Medications Medication Instructions Recorded Confirmed ezetimibe 10 mg tablet 10 mg PO DAILY Cholesterol 01/01/19 06/06/19 insulin lispro protamine-lispro 8 unit SQ BID Diabetes 01/01/19 06/06/19 100 unit/mL (75-25) subcutaneous pen levothyroxine 25 mcg tablet 25 mcg PO DAILY thyroid 01/01/19 06/06/19 metformin 500 mg tablet 500 mg PO BID Diabetes 01/02/19 06/06/19 rivaroxaban 20 mg tablet 20 mg PO DAILY Blood thinner 01/10/19 06/06/19 aspirin 81 mg tablet,delayed 81 mg PO DAILY HEART HEALTH 01/23/19 06/06/19 release (Adult Low Dose Aspirin) cholecalciferol (vitamin D3) 25 1,000 unit PO DAILY Supplement 01/23/19 06/06/19 mcg (1,000 unit) capsule alirocumab 75 mg/mL subcutaneous 75 mg SQ Q2W HYPERLIPIDEMIA 03/06/19 06/05/19 pen injector (Praluent Pen) sucralfate 1 gram tablet 1 gm PO ACHS GERD 06/05/19 06/05/19 flecainide 100 mg tablet 100 mg PO BID ARRHYTHMIA 06/06/19 06/06/19 pantoprazole 40 mg tablet,delayed 40 mg PO HS GERD 06/06/19 06/06/19 release Previous Rx's Medication Instructions Recorded clindamycin HCl 300 mg capsule 300 mg PO TID #20 caps 06/14/19 furosemide 40 mg tablet 40 mg PO BID #60 tabs 06/14/19 ipratropium 0.5 mg-albuterol 3 mg 3 ml IH QIDRT ##90 06/14/19 (2.5 mg base)/3 mL nebulization soln potassium chloride 20 mEq 20 meq PO DAILY #30 tabs 06/14/19 tablet,extended release(part/cryst) am
--- NOTE | 2022-12-30 04:55 | PC.NURSE ---
RAD at for CXR
[2022-12-30 05:00] VITALS: BP 100/51; PULSE 115; RESP 24; TEMP 37.7
[2022-12-30 05:01] LABS: Coronavirus 19, PCR Not Detected (NotDetected); Influenza A, PCR Not Detected (NotDetected); Influenza B, PCR Not Detected (NotDetected)
[2022-12-30 05:04] LABS: Basophils # 0.1 K/mm3 (0-0.2); Basophils % 1.3 % (0.1-2.0); Eosinophils # 0.1 K/mm3 (0.0-0.4); Eosinophils % 2.8 % (0.1-12.0); Hematocrit 46.8 % (42.0-52.0); Hemoglobin 16.1 g/dL (14.1-18.0); Lymphocytes # 0.4 K/mm3 (0.7-4.5); Lymphocytes % 8.8 % (10-50); Mean Corpuscular HGB Conc 34.4 g/dL (31.8-35.4); Mean Corpuscular Hemoglobin 31.5 pg (27.0-31.2); Mean Corpuscular Volume 91.5 fl (80-94); Mean Platelet Volume 7.6 fl (7.4-10.4); Monocytes # 0.1 K/mm3 (0.1-1.0); Monocytes % 2.1 % (1.7-9.3); Neutrophils # 3.4 K/mm3 (1.8-7.8); Neutrophils % 84.9 % (37.0-80.0); Platelet Count 209 K/mm3 (142-424); Red Blood Count 5.11 M/mm3 (4.60-6.20); Red Cell Distribution Width 14.3 % (11.5-17.5)
[2022-12-30 05:10] LABS: Chloride 109 mmol/L (98-107); Sodium 137 mmol/L (136-145)
[2022-12-30 05:11] LABS: Potassium 3.8 mmoL/L (3.5-5.1)
[2022-12-30 05:13] LABS: Anion Gap 8.8 mEq/L (5-15); Blood Urea Nitrogen 17 mg/dl (9-20); Carbon Dioxide 23 mmol/L (22.0-30.0); Creatinine Clearance Estimated 65 mL/min (50-200); Estimated Glomerular Filt Rate 74 ml/min (>60); GFR (African American) 89 ML/MIN (>60)
[2022-12-30 05:14] LABS: Calcium 8.4 mg/dl (8.4-10.2); Glucose 187 mg/dl (74-100)
[2022-12-30 05:30] VITALS: BP 92/46; PULSE 110
--- NOTE | 2022-12-30 05:41 | PC.NURSE ---
Rechecked pt condition. No needs voiced at this time.
--- NOTE | 2022-12-30 05:54 | PC.NURSE ---
Dr. Puentes at BS
--- NOTE | 2022-12-30 06:01 | PC.NURSE ---
Called radiology to inquire on time remaining for CXR reading, per energy trader, the [employer] banner states 60-80 min for reading. He will chat with vrad
[2022-12-30 06:30] VITALS: BP 105/62; PULSE 108; RESP 23; TEMP 37.3; O2SAT 94
== END 2022-12-30 06:49 | disposition home or self-care (01) ==
PROVIDERS: Emergency Provider Emergency Medicine; PCP Family Medicine
DX: R50.9 Fever, unspecified (principal); I50.9 Heart failure, unspecified; I48.0 Paroxysmal atrial fibrillation; Z20.822 Contact with and (suspected) exposure to COVID-19
CPT/HCPCS: 71045; 80048; 85025; 93005; 96361; 96365; 99285; C9803; J0696; U0003; U0005

== ENCOUNTER → 2023-01-01 14:33 | Outpatient (CLI) | payer MEDICARE, SELFPAY ==
--- NOTE | 2023-01-01 | CA_ITS ---
APPROVED REPORT EXAM: Comprehensive 2D, Doppler, and color-flow Echocardiogram Silica Spray Mixer: Shawna Matias CRT Ht: 5 ft 5 in Wt: 155lbs BSA: 1.77 BP: 113/57 mmHg Indications: Atrial Fibrillation, SOB, EX SMOKER, ABLATION 2D Dimensions LVOT 1.87 cm (M/F) 1.5-2.5 LA Volume 38.00 mL LA Volume Index 20.90 mL/m2 (M/F) 16-34 M-Mode Dimensions RVDd 3.19 cm (0.9-2.6) LA Diam 3.31 cm (1.9-4.0) LVDd 4.39 cm (3.5-5.7) Ao Diam 3.93 cm (2.0-3.7) LVDs 3.00 cm (3.5-5.7) IVSd 1.30 cm (0.6-1.1) PWd 0.80 cm (0.6-1.1) EF (Teich) 59.90% FS 31.70% EDV (Teich) 87.20 mL TAPSE 2.74 (<1.7) ESV (Teich) 35.00 mL LV Diastology E Decel Time 190.00 (160-240 msec) E/A Ratio 1.51 MED E' 4.80 (< 7 cm/sec) MED A' 8.90 cm/s E'/MED E' Ratio 16.19 (>14) LAT E' 8.50 (<10 cm/sec) LAT A' 7.60 cm/s E/LAT E' Ratio 9.14 (>14) Aortic Valve AO Peak GR. 5.00 mmHg Mitral Valve MV E Max Jerald. 78.00 (40-130 cm/s) MV A Velocity 51.00 (40-130 cm/s) E/A Ratio 1.51 MV Decel. Time 190.00 (160-240 ms) MV PHT 56.00 ms Pulmonary Valve PV Peak Velocity 159.00 (50-150 cm/s) Tricuspid Valve TR P. Velocity 336.00 cm/s RAP Estimate 10.00 mmHg RVSP 55.10 mmHg Left Ventricle Left atrium is mildly enlarged, left ventricle is normal size, estimated ejection fraction 55% with no regional wall motion abnormality, diastolic parameters are inconclusive. Right Ventricle Right atrium and right ventricle are mildly enlarged with normal contractility. Aortic Valve Aortic valve is minimally thickened and calcified without aortic stenosis or aortic insufficiency. Mitral Valve Mitral valve is grossly normal, there is trace mitral regurgitation. Tricuspid Valve Tricuspid valve grossly normal, there is trace tricuspid regurgitation, tricuspid regurgitation jet velocity is inadequate for calculation of the right ventricular systolic pressure. Pulmonic Valve Pulmonic valve is poorly visualized. Great Vessels Aortic root is normal size. Inferior vena cava is poorly visualized. Pericardium No significant pericardial effusion noted. Conclusion 1. Mild biatrial enlargement, normal left ventricular size, estimated ejection fraction 55% with no regional wall motion abnormality, diastolic parameters are inconclusive. 2. Trace mitral and tricuspid regurgitation. 3. No significant pericardial effusion noted. 4. Inferior vena cava is poorly visualized. Electronically signed by : Danish Nash MD 01/02/2023 06:24:33
--- NOTE | 2023-01-01 14:51 | CT_ITS ---
FINAL REPORT TECHNIQUE: Axial imaging of the chest is obtained after the administration of contrast. 3-D MIP reformatted images were also obtained and reviewed per PE protocol. This study was performed with techniques to keep radiation doses as low as reasonably achievable (ALARA). Individualized dose reduction techniques using automated exposure control or adjustment of mA and/or kV according to the patient's size were employed. CLINICAL HISTORY: SOA COMPARISON: 12/28/2020 FINDINGS: The pulmonary arteries are well filled. There is no evidence of pulmonary embolus. There is no aortic dissection or intimal flap. There is no axillary lymphadenopathy. There is a high right paratracheal lymph node measuring 18 mm, unchanged from prior exam. Additional, small mediastinal lymph nodes are stable. There is no hilar lymphadenopathy. A subcarinal lymph node measuring 2.6 cm has increased from prior exam. This previously measured 2.2 cm. Right upper lobe nodule on image number 26 is unchanged. There are stable, trace bilateral pleural effusions. There is increased right lower lobe airspace disease concerning for pneumonia. Otherwise, bilateral lower lobe atelectasis similar to prior exam. Subtle thickening is again seen along the right minor and major fissures, unchanged. Limited imaging of the upper abdomen demonstrates cholelithiasis and a stable left adrenal nodule. There is no acute osseous abnormality. IMPRESSION: No evidence of pulmonary embolism or aortic dissection. Right lower lobe pneumonia. Additional chronic findings as above. Reviewed, Interpreted and Dictated by Verna Conner MD Transcribed by Janet Brian Authenticated and [facility]
== END ==
PROVIDERS: PCP Family Medicine; Visit Provider Family Medicine
DX: R06.02 Shortness of breath (principal)
CPT/HCPCS: 71275; 93306; Q9967

== ENCOUNTER → 2023-01-12 10:51 | Outpatient (CLI) | payer MEDICARE, SELFPAY ==
--- NOTE | 2023-01-12 10:55 | XR_ITS ---
FINAL REPORT CLINICAL HISTORY: PNEUMONIA COMPARISON: 12/30/2022 FINDINGS: 2 views of the chest were obtained . The heart is normal in size. The mediastinum is within normal limits. There are mild left base opacities which have partially improved, favor atelectasis. There are small pleural effusions. There is no pneumothorax. Osseous structures are unremarkable. IMPRESSION: Partially improved left base opacities, favor atelectasis. Small pleural effusions. Reviewed, Interpreted and Dictated by Richard Emery III, MD Transcribed by Janet Brian Authenticated and [facility]
== END ==
PROVIDERS: PCP Family Medicine; Visit Provider Physician Assistant
DX: J18.9 Pneumonia, unspecified organism (principal)
CPT/HCPCS: 71046

== ENCOUNTER → 2023-07-16 07:25 | Outpatient (CLI) | payer MEDICARE, SELFPAY ==
--- NOTE | 2023-07-16 07:35 | US_ITS ---
FINAL REPORT CLINICAL HISTORY: DIALTION OF AORTA COMPARISON: None FINDINGS: Sonographic images were obtained of the abdominal aorta. The abdominal aorta measures up to 2.6 in greatest dimensions and aortic ectasia is present. The common iliac arteries are within normal limits. IMPRESSION: No evidence of aortic aneurysm. Reviewed, Interpreted and Dictated by Richard Emery III, MD Transcribed by Sujatha Cook Authenticated and [facility]
== END ==
PROVIDERS: PCP Family Medicine; Visit Provider Family Medicine
DX: E83.119 Hemochromatosis, unspecified (principal); Q25.44 Congenital dilation of aorta
CPT/HCPCS: 76705

== ENCOUNTER → 2023-09-20 14:37 | Outpatient (CLI) | payer MEDICARE, SELFPAY ==
[2023-09-20 14:58] VITALS: BMI 26.2
[2023-09-20 15:29] LABS: Basophils % 1.2 % (0.1-2.0); Eosinophils # 0.1 K/mm3 (0.0-0.4); Eosinophils % 6.8 % (0.1-12.0); Hematocrit 44.4 % (42.0-52.0); Hemoglobin 15.6 g/dL (14.1-18.0); Lymphocytes # 0.5 K/mm3 (0.7-4.5); Lymphocytes % 26.9 % (10-50); Mean Corpuscular HGB Conc 35.1 g/dL (31.8-35.4); Mean Corpuscular Hemoglobin 31.6 pg (27.0-31.2); Mean Corpuscular Volume 90.1 fl (80-94); Mean Platelet Volume 7.7 fl (7.4-10.4); Monocytes # 0.1 K/mm3 (0.1-1.0); Neutrophils # 1.1 K/mm3 (1.8-7.8); Neutrophils % 59.1 % (37.0-80.0); Platelet Count 207 K/mm3 (142-424); Red Blood Count 4.93 M/mm3 (4.60-6.20); Red Cell Distribution Width 15.3 % (11.5-17.5)
[2023-09-20 15:33] LABS: White Blood Count 1.8 K/mm3 (4.8-10.8)
[2023-09-20 16:37] LABS: Alanine Aminotransferase 34 U/L (12-78); Albumin Level 3.4 g/dl (3.5-5.0); Albumin/Globulin Ratio 0.9 (1.1-1.8); Alkaline Phosphatase 315 U/L (38-126); Anion Gap 14.2 mEq/L (5-15); Aspartate Amino Transferase 49 U/L (17-59); Bilirubin,Total 0.9 mg/dl (0.2-1.3); Blood Urea Nitrogen 19 mg/dl (9-20); Calcium 9.3 mg/dl (8.4-10.2); Carbon Dioxide 28 mmol/L (22.0-30.0); Chloride 99 mmol/L (98-107); Creatinine Clearance Estimated 61 mL/min (50-200); Estimated Glomerular Filt Rate 95 ml/min (>60); GFR (African American) 115 ML/MIN (>60); Globulin 3.6 g/dL (1.3-3.2); Glucose 230 mg/dl (74-100); Potassium 4.2 mmoL/L (3.5-5.1); Sodium 137 mmol/L (136-145)
[2023-09-20 17:41] LABS: Vitamin B12 881 pg/mL (239-931)
[2023-09-22 15:01] LABS: Peripheral Smear Review Scanned Result
== END ==
PROVIDERS: PCP Family Medicine; Visit Provider Internal Medicine Medical Oncology
DX: D50.9 Iron deficiency anemia, unspecified (principal); D72.819 Decreased white blood cell count, unspecified
CPT/HCPCS: 36415; 80053; 82607; 82728; 82746; 85025

== ENCOUNTER 2024-01-03 16:03 | Outpatient (CLI) | payer MEDICARE, SELFPAY ==
[2024-01-03 17:12] LABS: Uric Acid 5.1 mg/dl (3.5-8.5)
[2024-01-03 17:19] LABS: C-Reactive Protein 10.6 mg/L (0-4)
[2024-01-03 17:45] LABS: Erythrocyte Sedimentation Rate 42 mm/hr (0-20)
[2024-01-04 07:49] LABS: RA Latex Turbid. <10.0 IU/mL (<14.0)
[2024-01-04 15:30] LABS: Cytoplasmic (C-ANCA) <1:20 titer (Neg:<1:20); Perinuclear (P-ANCA) <1:20 titer (Neg:<1:20)
[2024-01-06 13:20] LABS: Antinuclear Antibodies, IFA Negative (.)
[2024-01-08 10:16] LABS: Antinuclear Antibodies (ANA) Negative
== END 2024-01-03 23:59 ==
LOC: LAB 16:05
PROVIDERS: PCP Family Medicine; Visit Provider Internal Medicine Pulmonary Disease
DX: R06.09 Other forms of dyspnea (principal); J84.9 Interstitial pulmonary disease, unspecified
CPT/HCPCS: 36415; 84550; 85651; 86038; 86140; 86225; 86235; 86256; 86431

== ENCOUNTER 2024-01-23 10:28 | Outpatient (CLI) | payer MEDICARE, SELFPAY ==
--- NOTE | 2024-01-23 | CA_ITS ---
APPROVED REPORT EXAM: Comprehensive 2D, Doppler, and color-flow Echocardiogram Editor Sound: Anel Romeo RT(R) Ht: 5 ft 2 in Wt: 134lbs BSA: 1.61 BP: 123/61 mmHg Indications: COPD, DD, PAF, hx ablation, ex smoker, fatigue, SOB, PALOMO. 2D Dimensions LVEF (Loaiza's) 54.20 % M: 52 - 72 LV Volume 95.70 mL M: 62 - 150 LV Volume Index 59.4 mL/m2 M: 34 - 74 LA Volume 44.90 mL LA Volume Index 27.89 mL/m2 (M/F) 16-34 EF AP4 64.10 % EF AP2 41.5 % EF BP 54.2 % GL Strain -17.8 % M-Mode Dimensions RVDd 2.46 cm (0.9-2.6) LA Diam 4.35 cm (1.9-4.0) LVDd 4.84 cm (3.5-5.7) LVDs 3.56 cm (3.5-5.7) IVSd 0.72 cm (0.6-1.1) PWd 0.72 cm (0.6-1.1) EF (Teich) 51.60% FS 26.40% EDV (Teich) 109.60 mL ESV (Teich) 53.00 mL LV Diastology E Decel Time 210 (160-240 msec) E/A Ratio 2.15 Mitral Valve MV A Velocity 41.0 (40-130 cm/s) E/A Ratio 2.15 Left Ventricle The left ventricle is normal size. The left ventricular systolic function is normal. The left ventricular ejection fraction is within the normal range. There is normal left ventricular wall thickness. There is normal LV segmental wall motion. The left ventricular diastolic function is normal. LVEF is 55%. Right Ventricle The right ventricle is normal size. The right ventricular systolic function is normal. Atria The left atrium is mildly dilated. The right atrium size is normal. There is no Doppler evidence of interatrial shunt. Aortic Valve The aortic valve opens well. There is no aortic valvular stenosis. No aortic regurgitation is present. Mitral Valve The mitral valve is normal in structure. No evidence of mitral valve stenosis. Mild mitral regurgitation. Tricuspid Valve The tricuspid valve leaflets are thin and pliable. Trace tricuspid regurgitation. There is insufficient TR jet to estimate RVSP. Pulmonic Valve The pulmonary valve is normal in structure. Mild pulmonic regurgitation. Great Vessels The aortic root is normal in size. The ascending aorta is normal in size. IVC is normal in size and collapses >50% with inspiration. Pericardium There is no pericardial effusion. Other Information Study Quality: Fair Conclusion Normal biventricular systolic function. Mild LA dilation. Mild MR, mild NE. Electronically signed by : Krystle Coates MD 01/27/2024 18:48:36
[2024-01-23 11:33] LABS: Basophils % 1.6 % (0.1-2.0); Eosinophils # 0.1 K/mm3 (0.0-0.4); Eosinophils % 5.3 % (0.1-12.0); Hematocrit 42.1 % (42.0-52.0); Hemoglobin 14.7 g/dL (14.1-18.0); Lymphocytes # 0.5 K/mm3 (0.7-4.5); Lymphocytes % 35.2 % (10-50); Mean Corpuscular HGB Conc 34.9 g/dL (31.8-35.4); Mean Corpuscular Hemoglobin 32.8 pg (27.0-31.2); Mean Platelet Volume 8.8 fl (7.4-10.4); Monocytes # 0.1 K/mm3 (0.1-1.0); Monocytes % 7.8 % (1.7-9.3); Neutrophils # 0.8 K/mm3 (1.8-7.8); Platelet Count 166 K/mm3 (142-424); Red Blood Count 4.48 M/mm3 (4.60-6.20); Red Cell Distribution Width 15.8 % (11.5-17.5); White Blood Count 1.5 K/mm3 (4.8-10.8)
== END 2024-01-23 23:59 ==
LOC: RT 10:30
PROVIDERS: Internal Medicine Medical Oncology; PCP Family Medicine; Visit Provider Family Medicine
DX: D64.89 Other specified anemias (principal); J44.9 Chronic obstructive pulmonary disease, unspecified; R53.82 Chronic fatigue, unspecified; R06.09 Other forms of dyspnea; E83.119 Hemochromatosis, unspecified
CPT/HCPCS: 36415; 85025; 93306

== ENCOUNTER 2024-02-25 12:27 | Outpatient (CLI) | payer MEDICARE, SELFPAY ==
--- NOTE | 2024-02-25 12:29 | NM_ITS ---
APPROVED REPORT Exam: Nuclear Stress Test Indication: soa..fatigue Patient Location: Outpatient Stress Tech: Emily Rojo [place] Tech:Araceli Shirley, FABIENNET, RT (R)(N) Ht: 5 ft 5 in Wt: 122 lbs HR: 89 bpm BP: 110/55 mmHg BSA: 1.60 m2 Rhythm: NSR TID: 0.94 BMI: 20.2 History: soa..fatigue Procedure: Patient received 0.4 mg of intravenous Lexiscan, resting heart rate 89 bpm, resting blood pressure 110/55 mmHg, with Lexiscan maximum heart rate achieved was 108 bpm which is 85 % of the maximum predicted heart rate and blood pressure was 112/48 mmHg. With Lexiscan, patient denied any complaint of chest pain. Cardiac Stress and Resting SPECT Images: Cardiac Stress and Resting SPECT images were obtained using technetium 99m Myoview 32.3 mCi stress and 10.24 mCi at rest. Resting and stress imaging in supine and prone positions demonstrate no evidence of fixed or reversible perfusion defects. Gated imaging demonstrates normal global and regional LV systolic function. LVEF is calculated at 70%. Conclusion: No evidence of fixed or reversible perfusion defects. Gated imaging demonstrates normal global and regional LV systolic function. LVEF is calculated at 70%. Electronically signed by : Krystle Coates MD 02/27/2024 13:05:33
--- NOTE | 2024-02-25 15:14 | CA_ITS ---
APPROVED REPORT Exam: Pharmacologic Technologist: Emily Rojo Ht: 5 ft 5 in Wt: 129 lbs BSA: 1.64 m2 HR: 89 bpm BP: 110/55 mmHg Indications: Shortness of Air Medical History Medications: Levothyroxine,,,,, Aspirin,,,,, Lispro,,,,, Pravastatin,,,,, Metformin,,,,, Vitamin D3,,,,, JaRDiance,,,,, Ezetimibe,,,,, Stress Test Details Test: LEXISCAN HR Resting HR: 93 bpm Max Heart Rate (APMHR): 148 bpm Max HR Achieved: 108 bpm Target HR (85% APMHR): 126 bpm % of APMHR: 73 Recovery HR: 105 bpm BP Resting BP: 110.0/55.0 mmHg Max BP: 112.0/48.0 mmHg Recovery BP: 109.0/51.0 mmHg ECG Resting ECG: Normal sinus rhythm, low voltage, PRWP Anteriorly Clinical Exercise duration: 04:13 min Highest Stage Achieved: Stress ECG Conclusion Symptoms: None Arrhythmias/Ectopy: None ST-T Changes: No significant ST changes Conclusion: Unremarkable Lexiscan ECG stress test. Myoview images are reported separately. Test Summary REST . . . . . . . Resting REST 11:13 . . 93 . 110/ 55 . . Stage 1 . . . . . . . Myoview Injected Stage 1 01:00 . . 105 . . . . Stage 2 01:00 . . 107 . 112/ 48 . . Stage 3 01:00 . . 107 . 111/ 48 . . Stage 4 01:00 . . 105 . . . . Stage 4 01:13 . . 104 . 108/ 47 . Stop exercise at 04:13 RECOVERY 01:00 . . 106 . . . . RECOVERY 02:00 . . 105 . 104/ 46 . . RECOVERY 03:00 . . 105 . 109/ 51 . . RECOVERY 03:38 . . 105 . 109/ 51 . . Electronically signed by : Krystle Coates MD 02/27/2024 13:03:55
[2024-02-25] MEDS: REGADENOSON 0.4MG/5ML SYRINGE 0.400000000000000022 MG IV (15:32)
[2024-02-25] MEDS: SODIUM CHLORIDE 0.9% 10ML SYR (RAD ONLY) 10 ML IV ×2 (15:32)
[2024-02-25] MEDS: ISOTOPE MYOVIEW (PER STUDY) 1 DOSE IV (15:32)
== END 2024-02-25 23:59 | disposition home or self-care (01) ==
LOC: RAD 12:29
PROVIDERS: PCP Family Medicine; Visit Provider Internal Medicine
DX: R06.00 Dyspnea, unspecified (principal); Z87.891 Personal history of nicotine dependence; R06.09 Other forms of dyspnea; E11.69 Type 2 diabetes mellitus with other specified complication; E78.5 Hyperlipidemia, unspecified; Z98.890 Other specified postprocedural states; Z79.4 Long term (current) use of insulin; Z79.01 Long term (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 of anticoagulants; I10 Essential (primary) hypertension; I48.0 Paroxysmal atrial fibrillation; I27.20 Pulmonary hypertension, unspecified
CPT/HCPCS: 78452; 93017; 93018; A9502; J2785

== ENCOUNTER 2024-02-28 07:50 | Day surgery (SDC) | payer MEDICARE, SELFPAY ==
[2024-02-28] VITALS (10 sets, daily range): BP systolic 94–145; BP diastolic 51–77; PULSE 78–97; RESP 16–18; TEMP 36.6; O2SAT 92–98; BMI 21.4
--- NOTE | 2024-02-28 07:03 | IR_ITS ---
APPROVED REPORT Patient Location: Outpatient [facility]ing [facility] Supervisor: HUGO Rob RT (R) PROCEDURES Right heart catheterization INDICATION Suspected pulmonary hypertension Informed consent was obtained prior to the procedure. COMPLICATIONS None Estimated Blood Loss: Less than 10 mls TECHNIQUE One percent lidocaine was used to anesthetize the right anterior aspect of the neck. A slater apprentice needle was used to identify the right internal jugular vein. Following this a larger cannulation needle was used to cannulate the right internal jugular vein and a wire was passed into the vein. Prior to the 7 Turkmen sheath being inserted the wire was confirmed under fluoroscopic guidance to be in the inferior vena cava. A 7 Turkmen sheath was introduced and a [place]-Justus catheter was floated using hemodynamic waveforms in the pulmonary artery, right ventricle , and right atrium. Saturations were obtained in the pulmonary artery and the right atrium. At the end of the procedure the patient was transferred to the postop holding area in stable condition for sheath removal. ANGIOGRAPHIC RESULTS Right atrial pressure 3 mmHg Pulmonary artery pressure 30/12 mmHg Pulmonary artery occlusion pressure 8 mmHg Pulmonary artery saturation 77% Right atrial saturation 79% IMPRESSION Borderline elevated pulmonary artery systolic pressure PLAN 1. Continue medical management Electronically signed by : César Regalado MD 02/28/2024 10:43:21
[2024-02-28 08:25] LABS: Basophils % 2.3 % (0.1-2.0); Eosinophils # 0.1 K/mm3 (0.0-0.4); Eosinophils % 4.6 % (0.1-12.0); Hematocrit 46.1 % (42.0-52.0); Hemoglobin 15.3 g/dL (14.1-18.0); Lymphocytes # 0.5 K/mm3 (0.7-4.5); Lymphocytes % 33.8 % (10-50); Mean Corpuscular HGB Conc 33.2 g/dL (31.8-35.4); Mean Corpuscular Hemoglobin 31.5 pg (27.0-31.2); Mean Corpuscular Volume 94.9 fl (80-94); Mean Platelet Volume 8.5 fl (7.4-10.4); Monocytes # 0.1 K/mm3 (0.1-1.0); Monocytes % 5.6 % (1.7-9.3); Neutrophils # 0.8 K/mm3 (1.8-7.8); Neutrophils % 53.6 % (37.0-80.0); Platelet Count 196 K/mm3 (142-424); Red Blood Count 4.86 M/mm3 (4.60-6.20); Red Cell Distribution Width 16.3 % (11.5-17.5); White Blood Count 1.5 K/mm3 (4.8-10.8)
[2024-02-28 08:31] LABS: Anion Gap 6.6 mEq/L (5-15); Blood Urea Nitrogen 18 mg/dl (9-20); Calcium 10.4 mg/dl (8.4-10.2); Carbon Dioxide 30 mmol/L (22.0-30.0); Chloride 104 mmol/L (98-107); Creatinine Clearance Estimated 55 mL/min (50-200); Estimated Glomerular Filt Rate 73 ml/min (>60); GFR (African American) 89 ML/MIN (>60); Glucose 209 mg/dl (74-100); Potassium 3.6 mmoL/L (3.5-5.1); Sodium 137 mmol/L (136-145)
[2024-02-28] MEDS: 0.9 % SODIUM CHLORIDE 500 ML 25 ML IV (09:55)
[2024-02-28] MEDS: LIDOCAINE 1% 10ML MDV 20 ML IJ (09:55)
[2024-02-28] MEDS: HEPARIN 1,000 UNITS/500ML NS (CATH LAB) 3000 UNIT IV (09:55)
[2024-02-28] MEDS: diphenhydrAMINE 50MG/ML VIAL 50 MG IV (09:55)
[2024-02-28] MEDS: MIDAZOLAM HCL 1MG/1ML 5ML VIAL 1 MG IV (10:43)
[2024-02-28] MEDS: FENTANYL 100MCG/2ML VIAL 50 MCG IV (10:44)
[2024-02-28 11:00] LABS: CATHL Arterial O2 SAT 77 % (90-100); CATHL Venous O2 SAT 79 % (75-80)
== END 2024-02-28 12:01 | disposition home or self-care (01) ==
PROVIDERS: PCP Family Medicine; Visit Provider Internal Medicine
DX: I27.20 Pulmonary hypertension, unspecified (principal); I48.0 Paroxysmal atrial fibrillation; R06.09 Other forms of dyspnea; E78.5 Hyperlipidemia, unspecified; I10 Essential (primary) hypertension; Z87.891 Personal history of nicotine dependence; Z98.890 Other specified postprocedural states; E11.9 Type 2 diabetes mellitus without complications; Z79.4 Long term (current) use of insulin; Z79.01 Long term (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 of anticoagulants
CPT/HCPCS: 80048; 82810; 85025; 93451; 99152; C1894; J1644

== ENCOUNTER 2024-02-29 07:21 | Outpatient (CLI) | payer MEDICARE, SELFPAY ==
--- NOTE | 2024-02-29 07:23 | CT_ITS ---
FINAL REPORT TECHNIQUE: Axial images through the abdomen and pelvis were performed without contrast. This study was performed with techniques to keep radiation doses as low as reasonably achievable, (ALARA). Individualized dose reduction techniques using automated exposure control or adjustment of mA and/or kV according to the patient's size were employed. CLINICAL HISTORY: HEREDITARY HEMOCHROMATOSIS,WEIGHT LOSS COMPARISON: None FINDINGS: Abdomen: Scarring and fibrosis is present in the lung bases bilaterally. Hepatomegaly is present, with the liver measuring 22 cm in craniocaudal dimension. Multiple gallstones are present in the gallbladder. Splenomegaly is also present, with the spleen measuring 18 cm in the craniocaudal dimension. Numerous varices are present in the upper abdomen consistent with portal hypertension. The pancreas and adrenals are unremarkable. There are bilateral nonobstructing renal stones, multiple, measuring up to 5 mm in size. There is mild ectasia of the abdominal aorta, measuring 3.4 cm in its greatest diameter. A moderate amount of stool is present in the colon. Pelvis: The urinary bladder is unremarkable. The appendix is not visualized. There is no pelvic mass or inflammation. IMPRESSION: Marked hepatosplenomegaly as described above, with numerous varices in the upper abdomen. The overall appearance is consistent with the patient's clinical diagnosis of hereditary hemochromatosis. Multiple gallstones are present in the gallbladder. Multiple bilateral nonobstructing renal stones are present, measuring up to 5 mm in largest size. Ectasia of the thoracic aorta is present with a greatest diameter of 3.4 cm. Diffuse vascular calcifications are noted. Reviewed, Interpreted and Dictated by Issac Hung MD Transcribed by Sujatha Cook Authenticated and [facility]
== END 2024-02-29 23:59 | disposition home or self-care (01) ==
LOC: RAD 07:21
PROVIDERS: PCP Family Medicine; Visit Provider Family Medicine
DX: E83.110 Hereditary hemochromatosis (principal); R63.4 Abnormal weight loss; Z68.20 Body mass index [BMI] 20.0-20.9, adult
CPT/HCPCS: 74176

== ENCOUNTER 2024-03-27 13:04 | Outpatient (CLI) | payer MEDICARE, SELFPAY ==
--- NOTE | 2024-03-27 14:27 | CT_ITS ---
FINAL REPORT TECHNIQUE: Axial imaging of the chest was obtained without contrast. High-resolution inspiration and expiration sequences were also obtained. Reformatted images were also obtained and reviewed.This study was performed with techniques to keep radiation doses as low as reasonably achievable, (ALARA). Individualized dose reduction technique using automated exposure control or adjustment of mA and/or kV according to the patient's size were employed. CLINICAL HISTORY: .HIGH RESOLUTION CHEST X 3 (SUPINE INSPIRATION, EXPIRATION AND PRONE INSPIRATION) LUNG NODULE COMPARISON: 01/01/2023 FINDINGS: There is moderate mediastinal adenopathy, unchanged from prior exam. On supine high-resolution imaging dense linear opacities are seen in the lung bases consistent with scarring or fibrosis. On prone inspiration images there is a linear pleural) couple scarring at the bases. No significant air trapping is seen. There is no pleural or pericardial effusion. Limited imaging of the upper abdomen demonstrates calcified gallstones. Liver and spleen appear to be enlarged. IMPRESSION: Pleural and parenchymal scarring at the lung bases. Calcified mediastinal adenopathy, stable from prior exam. Reviewed, Interpreted and Dictated by Issac Hung MD Transcribed by Janet Brian Authenticated and [facility]
== END 2024-03-27 23:59 | disposition home or self-care (01) ==
LOC: RT 13:04
PROVIDERS: PCP Family Medicine; Visit Provider Internal Medicine Pulmonary Disease
DX: J84.89 Other specified interstitial pulmonary diseases (principal); R06.09 Other forms of dyspnea
CPT/HCPCS: 71250; 94060; 94618; 94726; 94729

== ENCOUNTER 2024-04-14 14:54 | Outpatient (CLI) | payer MEDICARE, SELFPAY ==
[2024-04-14 16:12] LABS: Lactate Dehydrogenase 127 U/L (313-618)
[2024-04-16 12:37] LABS: Anti-Centromere B Antibodies <0.2 AI (0.0-0.9); Anti-DNA (DS) Ab Qn 1 IU/mL (0-9); Anti-Jo-1 <0.2 AI (0.0-0.9); Antiribosomal P Antibodies <0.2 AI (0.0-0.9); Antiscleroderma-70 Antibodies 0.4 AI (0.0-0.9); Sjogren's Anti-SS-A 0.2 AI (0.0-0.9); Sjogren's Anti-SS-B <0.2 AI (0.0-0.9); Smith/RNP Antibodies <0.2 AI (0.0-0.9)
[2024-04-21 17:11] LABS: Strongyloides IgG Antibody Negative (Negative)
[2024-04-25 11:06] LABS: Aspergillus fumigatus IgG Negative
[2024-04-25 11:07] LABS: Pigeon Serum Abs Negative
== END 2024-04-14 23:59 | disposition home or self-care (01) ==
LOC: LAB 14:56
PROVIDERS: PCP Family Medicine; Visit Provider Internal Medicine Pulmonary Disease
DX: J84.9 Interstitial pulmonary disease, unspecified (principal); J84.10 Pulmonary fibrosis, unspecified; J90 Pleural effusion, not elsewhere classified; D72.10 Eosinophilia, unspecified; Z87.891 Personal history of nicotine dependence
CPT/HCPCS: 36415; 83516; 83615; 86225; 86235; 86331; 86602; 86606; 86609; 86682

== ENCOUNTER 2024-04-21 09:07 | Outpatient (CLI) | payer MEDICARE, SELFPAY ==
[2024-04-21 09:23] LABS: Basophils % 0.4 % (0.1-2.0); Eosinophils % 1.6 % (0.1-12.0); Hematocrit 42.4 % (42.0-52.0); Lymphocytes # 0.4 K/mm3 (0.7-4.5); Mean Corpuscular HGB Conc 32.9 g/dL (31.8-35.4); Mean Corpuscular Volume 97.1 fl (80-94); Monocytes # 0.2 K/mm3 (0.1-1.0); Monocytes % 6.7 % (1.7-9.3); Neutrophils # 1.8 K/mm3 (1.8-7.8); Neutrophils % 75.3 % (37.0-80.0); Platelet Count 227 K/mm3 (142-424); Red Blood Count 4.37 M/mm3 (4.60-6.20); Red Cell Distribution Width 15.9 % (11.5-17.5); White Blood Count 2.4 K/mm3 (4.8-10.8)
== END 2024-04-21 23:59 | disposition home or self-care (01) ==
LOC: LAB 09:08
PROVIDERS: PCP Family Medicine; Visit Provider Internal Medicine Medical Oncology
DX: D70.8 Other neutropenia (principal)
CPT/HCPCS: 36415; 85025

== ENCOUNTER 2024-07-04 09:34 | Outpatient (CLI) | payer MEDICARE, SELFPAY ==
[2024-07-04 10:16] LABS: Basophils # 0.1 K/mm3 (0-0.2); Basophils % 2.5 % (0.1-2.0); Eosinophils # 0.1 K/mm3 (0.0-0.4); Eosinophils % 4.8 % (0.1-12.0); Hematocrit 44.2 % (42.0-52.0); Hemoglobin 14.6 g/dL (14.1-18.0); Lymphocytes # 0.7 K/mm3 (0.7-4.5); Lymphocytes % 33.8 % (10-50); Mean Corpuscular HGB Conc 32.9 g/dL (31.8-35.4); Mean Corpuscular Hemoglobin 32.4 pg (27.0-31.2); Mean Corpuscular Volume 98.6 fl (80-94); Mean Platelet Volume 8.1 fl (7.4-10.4); Monocytes # 0.1 K/mm3 (0.1-1.0); Platelet Count 228 K/mm3 (142-424); Red Blood Count 4.49 M/mm3 (4.60-6.20); Red Cell Distribution Width 16.4 % (11.5-17.5); White Blood Count 1.9 K/mm3 (4.8-10.8)
[2024-07-04 10:27] LABS: INR 0.94 (0.9-1.1); Prothrombin Time 10.6 seconds (10.1-12.5)
[2024-07-04 12:21] LABS: Albumin Level 3.3 g/dl (3.5-5.0); Chloride 104 mmol/L (98-107)
[2024-07-04 12:22] LABS: Potassium 3.9 mmoL/L (3.5-5.1); Sodium 135 mmol/L (136-145)
[2024-07-04 12:24] LABS: Alanine Aminotransferase 33 U/L (12-78); Alkaline Phosphatase 326 U/L (38-126); Anion Gap 8.9 mEq/L (5-15); Aspartate Amino Transferase 48 U/L (17-59); Bilirubin,Total 1.1 mg/dl (0.2-1.3); Blood Urea Nitrogen 31 mg/dl (9-20); Carbon Dioxide 26 mmol/L (22.0-30.0); Estimated Glomerular Filt Rate 54 ml/min (>60); GFR (African American) 65 ML/MIN (>60)
[2024-07-04 12:25] LABS: Albumin/Globulin Ratio 0.9 (1.1-1.8); Calcium 9.5 mg/dl (8.4-10.2); Globulin 3.5 g/dL (1.3-3.2); Glucose 167 mg/dl (74-100); Total Protein,Serum 6.8 g/dl (6.3-8.2)
[2024-07-04 12:42] LABS: 25-OH Vitamin D, Total 71.4 ng/mL (30-100)
[2024-07-04 12:57] LABS: Thyroid Stimulating Hormone 5.23 uIU/mL (0.465-4.68)
[2024-07-04 12:59] LABS: Ferritin 91.2 ng/ml (17.9-464)
[2024-07-05 08:18] LABS: AFP, Tumor Marker 1.9 ng/mL (0.0-8.4); HBsAg Screen Negative (Negative); HCV Ab Non Reactive (Non Reactive); Hep A Ab, IGM Negative (Negative); Hep B Core Ab, IgM Negative (Negative)
[2024-07-09 01:08] LABS: ALT (SGPT) P5P 30 IU/L (0-55); AST (SGOT) P5P 43 IU/L (0-40); Alpha 2-Macroglobulins, Qn 398 mg/dL (110-276); Apolipoprotein A-1 84 mg/dL (101-178); Bilirubin, Total 0.5 mg/dL (0.0-1.2); Cholesterol, Total 152 mg/dL (100-199); Fibrosis Score 0.94 (0.00-0.21); GGT 61 IU/L (0-65); Glucose 182 mg/dL (70-99); Haptoglobin 26 mg/dL (34-355); NASH Score 0.86 (0.00-0.25); Steatosis Score 0.81 (0.00-0.40); Triglycerides 330 mg/dL (0-149)
== END 2024-07-04 23:59 | disposition home or self-care (01) ==
LOC: LAB 09:35
PROVIDERS: Internal Medicine Pulmonary Disease; PCP Family Medicine; Visit Provider Nurse Practitioner
DX: R16.2 Hepatomegaly with splenomegaly, not elsewhere classified (principal); R63.4 Abnormal weight loss; E83.119 Hemochromatosis, unspecified; R53.83 Other fatigue; D72.819 Decreased white blood cell count, unspecified; F19.20 Other psychoactive substance dependence, uncomplicated; M85.80 Other specified disorders of bone density and structure, unspecified site
CPT/HCPCS: 80050; 80053; 80074; 82105; 82306; 82533; 82728; 84443; 85025; 85610

== ENCOUNTER 2024-07-14 16:41 | Outpatient (CLI) | payer MEDICARE, SELFPAY ==
[2024-07-14 17:54] LABS: C-Reactive Protein 10.1 mg/L (0-4)
[2024-07-14 18:14] LABS: Erythrocyte Sedimentation Rate 21 mm/hr (0-20)
== END 2024-07-14 23:59 | disposition home or self-care (01) ==
LOC: LAB 16:42
PROVIDERS: PCP Family Medicine; Visit Provider Internal Medicine Pulmonary Disease
DX: R06.09 Other forms of dyspnea (principal); J84.9 Interstitial pulmonary disease, unspecified
CPT/HCPCS: 36415; 85651; 86140

== ENCOUNTER 2024-07-31 11:39 | Outpatient (CLI) | payer MEDICARE, SELFPAY ==
[2024-07-31 11:54] LABS: Basophils % 0.8 % (0.1-2.0); Eosinophils # 0.1 K/mm3 (0.0-0.4); Eosinophils % 4.1 % (0.1-12.0); Hematocrit 47.2 % (42.0-52.0); Lymphocytes # 0.4 K/mm3 (0.7-4.5); Mean Corpuscular HGB Conc 31.9 g/dL (31.8-35.4); Mean Corpuscular Hemoglobin 32.4 pg (27.0-31.2); Mean Corpuscular Volume 101.7 fl (80-94); Mean Platelet Volume 8.7 fl (7.4-10.4); Monocytes # 0.1 K/mm3 (0.1-1.0); Monocytes % 4.8 % (1.7-9.3); Neutrophils # 1.1 K/mm3 (1.8-7.8); Neutrophils % 65.3 % (37.0-80.0); Platelet Count 219 K/mm3 (142-424); Red Blood Count 4.64 M/mm3 (4.60-6.20); Red Cell Distribution Width 15.4 % (11.5-17.5); White Blood Count 1.6 K/mm3 (4.8-10.8)
[2024-07-31 13:13] LABS: Alanine Aminotransferase 54 U/L (12-78); Albumin Level 3.7 g/dl (3.5-5.0); Albumin/Globulin Ratio 1.1 (1.1-1.8); Alkaline Phosphatase 255 U/L (38-126); Aspartate Amino Transferase 70 U/L (17-59); Bilirubin,Total 0.9 mg/dl (0.2-1.3); Blood Urea Nitrogen 35 mg/dl (9-20); Calcium 9.4 mg/dl (8.4-10.2); Carbon Dioxide 26 mmol/L (22.0-30.0); Chloride 106 mmol/L (98-107); Estimated Glomerular Filt Rate 59 ml/min (>60); GFR (African American) 72 ML/MIN (>60); Globulin 3.5 g/dL (1.3-3.2); Glucose 137 mg/dl (74-100); Sodium 137 mmol/L (136-145); Total Protein,Serum 7.2 g/dl (6.3-8.2)
[2024-07-31 13:26] LABS: Iron 93 ug/dL (49-181)
[2024-07-31 13:36] LABS: Total Iron Binding Capacity 305 ug/dL (261-462)
== END 2024-07-31 23:59 | disposition home or self-care (01) ==
LOC: LAB 11:40
PROVIDERS: PCP Family Medicine; Visit Provider Internal Medicine Medical Oncology
DX: D72.819 Decreased white blood cell count, unspecified (principal); D64.9 Anemia, unspecified
CPT/HCPCS: 36415; 80053; 83540; 83550; 85025

== ENCOUNTER 2024-08-05 09:58 | Outpatient (CLI) | payer MEDICARE, SELFPAY ==
[2024-08-06 11:15] LABS: Immunoglobulin G, Qn 2078 mg/dL (603-1613)
[2024-08-06 12:25] LABS: AFP, Tumor Marker 2.2 ng/mL (0.0-8.4)
[2024-08-06 15:26] LABS: Actin (Smooth Muscle) Antibody 28 Units (0-19); Angiotensin Converting Enzyme 115 U/L (14-82); Mitochondrial (M2) Antibody <20.0 Units (0.0-20.0)
[2024-08-06 17:11] LABS: Liver-Kidney Microsomal Ab 1.6 Units (0.0-20.0)
[2024-08-07 08:54] LABS: Immunoglobulin M, Qn 34 mg/dL (15-143)
== END 2024-08-05 23:59 | disposition home or self-care (01) ==
LOC: LAB 10:02
PROVIDERS: Internal Medicine Gastroenterology; PCP Psychiatry & Neurology Sleep Medicine; Visit Provider Internal Medicine Pulmonary Disease
DX: K76.6 Portal hypertension (principal); E83.110 Hereditary hemochromatosis; R74.8 Abnormal levels of other serum enzymes; K75.89 Other specified inflammatory liver diseases; K74.3 Primary biliary cirrhosis
CPT/HCPCS: 36415; 82105; 82164; 82784; 86255; 86256; 86376

== ENCOUNTER 2024-08-25 22:45 | Inpatient (IN) | payer MEDICARE, SELFPAY ==
[2024-08-25 22:50] VITALS: BMI 17.4
--- NOTE | 2024-08-25 22:50 | PC.NURSE ---
Dr Carreno at bedside. He was notified pt meets criteria for CODE SEPSIS. He is placing orders
[2024-08-25 22:56] VITALS: BP 94/51; PULSE 129; RESP 16; TEMP 37.8; O2SAT 95; BMI 17.4
--- NOTE | 2024-08-25 22:56 | XR_ITS ---
PROCEDURE INFORMATION: Exam: XR Chest Exam date and time: 08/25/2024 11:03 PM Age: 74 years old Clinical indication: Cough and fever; Additional info: Cough, hypotension, tachycarida TECHNIQUE: Imaging protocol: Radiologic exam of the chest. Views: 1 view. COMPARISON: CT HR CHEST X3 03/27/2024 2:36 PM FINDINGS: Lungs: No defined airspace disease. Pleural spaces: Pleural-parenchymal scarring bilaterally. No definite pleural effusions. Heart/Mediastinum: Unremarkable. No cardiomegaly. Bones/joints: Unremarkable. IMPRESSION: Pleural-parenchymal scarring. No definite acute airspace disease. Also refer to CT thorax from April 27
[2024-08-25] MEDS: CEFTRIAXONE SODIUM 2 GM in 0.9 % SODIUM CHLORIDE 100 ML IV (22:59)
[2024-08-25] MEDS: LACTATED RINGERS 1000ML 1,430 ML 715 ML IV (22:59)
[2024-08-25 23:00] VITALS: BP 97/55; PULSE 124; RESP 34; O2SAT 93
[2024-08-25 23:07] LABS: Basophils % 0.6 % (0.1-2.0); Eosinophils % 0.9 % (0.1-12.0); Hematocrit 40.2 % (42.0-52.0); Hemoglobin 13.7 g/dL (14.1-18.0); Lymphocytes # 0.5 K/mm3 (0.7-4.5); Lymphocytes % 10.2 % (10-50); Mean Corpuscular HGB Conc 34.1 g/dL (31.8-35.4); Mean Corpuscular Hemoglobin 30.9 pg (27.0-31.2); Mean Corpuscular Volume 90.5 fl (80-94); Mean Platelet Volume 7.6 fl (7.4-10.4); Monocytes # 0.2 K/mm3 (0.1-1.0); Monocytes % 3.9 % (1.7-9.3); Neutrophils # 3.7 K/mm3 (1.8-7.8); Neutrophils % 84.5 % (37.0-80.0); Platelet Count 329 K/mm3 (142-424); Red Blood Count 4.44 M/mm3 (4.60-6.20); Red Cell Distribution Width 14.6 % (11.5-17.5); White Blood Count 4.4 K/mm3 (4.8-10.8)
[2024-08-25 23:07] LABS: Coronavirus 19, PCR Not Detected (NotDetected); Influenza A, PCR Not Detected (NotDetected); Influenza B, PCR Not Detected (NotDetected)
[2024-08-25 23:08] LABS: VBG HCO3 19.4 mmol/L (23-30); VBG Oxygen Saturation 76.8 % (50-70); VBG PCO2 30.3 mmol/L (35-51); VBG PH 7.43 mmol/L (7.31-7.41); VBG PO2 37.8 mmol/L (28-40); VBG Total CO2 20.4 mmol/L (23-27)
--- NOTE | 2024-08-25 23:09 | CT_ITS ---
PROCEDURE INFORMATION: Exam: CT Abdomen And Pelvis With Contrast Exam date and time: 08/25/2024 11:50 PM Age: 74 years old Clinical indication: Fever; Additional info: Fever, llq pain TECHNIQUE: Imaging protocol: Computed tomography of the abdomen and pelvis with contrast. 3D rendering (Not supervised by radiologist): MIP and/or 3D reconstructed images were created by the technologist. Radiation optimization: All CT scans at this facility use at least one of these dose optimization techniques: automated exposure control; mA and/or kV adjustment per patient size (includes targeted exams where dose is matched to clinical indication); or iterative reconstruction. Contrast material: ISOVUE; Contrast volume: 70 ml; Contrast route: IV; COMPARISON: CT ABDOMEN PELVIS WO CON 02/29/2024 7:24 AM FINDINGS: Liver: Hepatomegaly, splenomegaly. Gallbladder and biliary ducts: Normal. No calcified stones. No ductal dilation. Pancreas: Normal. No ductal dilation. Spleen: See Liver finding. Adrenal glands: Numerous adrenal lesions are identified. In aggregate, the left adrenal measures 2.8 x 3 cm, and previously measured 1.9 x 1.8 cm Kidneys and ureters: Diffuse urothelial enhancement is demonstrated from the urinary bladder through the left ureter. There is no defined radiodense calculus. New finding since previous examination. Numerous calyceal calculi are present bilaterally. No right hydronephrosis. The distal left ureteral papilla appears very prominent. Stomach and bowel: Unremarkable. No obstruction. No mucosal thickening. Appendix: No evidence of appendicitis. Intraperitoneal space: Unremarkable. No free air. No significant fluid collection. Vasculature: Diffuse mild ectasia of the abdominal aorta maximum diameter 3 cm. Lymph nodes: Calcified gallstones periaortic lymph nodes are also increased since the previous examination. Urinary bladder: Unremarkable as visualized. Reproductive: Unremarkable as visualized. Bones/joints: No destructive bone lesions. Soft tissues: Unremarkable. Other findings: Most of these are intermediate density and are apparently new since the previous examination. IMPRESSION: 1. Acute urinary tract infection. Left pyelonephritis. Severe left hydronephrosis. No obstructing calculus identified. 2. Additionally, there is been interval development of adrenal metastasis not seen on the February examination from earlier this year. Increasing retroperitoneal adenopathy. Correlate with history of malignancy.
--- NOTE | 2024-08-25 23:09 | CT_ITS ---
PROCEDURE INFORMATION: Exam: CTA Chest With Contrast Exam date and time: 08/25/2024 11:50 PM Age: 74 years old Clinical indication: Fever; Additional info: Fever, tachy, SOA TECHNIQUE: Imaging protocol: Computed tomographic angiography of the chest with contrast. Exam focused on the arteries. 3D rendering (Not supervised by radiologist): MIP and/or 3D reconstructed images were created by the technologist. Radiation optimization: All CT scans at this facility use at least one of these dose optimization techniques: automated exposure control; mA and/or kV adjustment per patient size (includes targeted exams where dose is matched to clinical indication); or iterative reconstruction. Contrast material: ISOVUE; Contrast volume: 70 ml; Contrast route: INTRAVENOUS (IV); COMPARISON: CT ANGIO CHEST PE PROTOCOL 08/25/2024 11:50 PM FINDINGS: Pulmonary arteries: Right pulmonary artery measures 34 mm diameter. Main pulmonary artery [address] evidence of acute pulmonary embolus Aorta: Thoracic aorta is normal in caliber. Lungs: Scattered emphysema is demonstrated in the left anterior lung. Pleural spaces: Extensive pleural-parenchymal scarring with pleural calcification is again demonstrated largely unchanged compared to the 2022 examination. No pleural effusion is identified. Heart: Unremarkable. No cardiomegaly. No pericardial effusion. Lymph nodes: Multiple calcified lymph nodes seen throughout the bilateral hilar regions. Bones/joints: Unremarkable. No acute fracture. Soft tissues: Unremarkable. IMPRESSION: 1. No CT evidence of acute pulmonary Embolus. 2. No visible acute intrathoracic abnormality. 3. Chronic pleural-parenchymal scarring and/or infection. 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 The likely source of the patient's febrile illness is discussed in the CT abdomen and pelvis COMMENTS: The presence of pulmonary emphysema on CT is an independent risk factor for lung cancer. In the absence of a history or active diagnosis of lung cancer, it is recommended that this patient with emphysema be evaluated for enrollment in a low dose CT lung cancer screening program.
--- NOTE | 2024-08-25 23:11 | ED_ITS ---
Discharge Plan Disposition Patient Disposition: Admitted Clinical Impressions Clinical Impression: Septic shock, Acute pyelonephritis, Adrenal abnormality, Acute non-ST elevation myocardial infarction (NSTEMI), Respiratory failure Discharge ED Provider: Rip Gould Adult HPI General Chief complaint: Fever Stated complaint: pneumonia Time Seen by Provider: 08/25/24 22:59 Mode of Arrival: EMS Source of Information: Patient Limitations: No Limitations Description of Symptoms (Recalled from ER Triage Doc. by RN): Patient states he doesn't feel good. Has started running a fever today 100.1. Patient states he has had multiple bouts with pneumonia. History of Present Illness HPI narrative: 74-year-old male with history of hemochromatosis, cirrhosis, liver fibrosis, atrial fibrillation, insulin-dependent diabetes presents for feeling bad . His checked him and he was ill-appearing and had a fever over 102. On arrival to the ER patient is tachycardic and hypotensive. He reports he has been having intermittent burning with urination over the last few weeks and left-sided abdominal pain over the last couple of days. He reports that he has had bad pneumonia in the past. Related Data Home Medications ?Medication ?Instructions ?Recorded ?Confirmed ezetimibe 10 mg tablet 10 mg PO DAILY Cholesterol 01/01/19 07/31/24 metformin 500 mg tablet 500 mg PO BID Diabetes 01/02/19 07/31/24 aspirin 81 mg tablet,delayed 81 mg PO DAILY HEART HEALTH 01/23/19 07/31/24 release (Adult Low Dose Aspirin) cholecalciferol (vitamin D3) 25 1,000 unit PO DAILY Supplement 01/23/19 07/31/24 mcg (1,000 unit) capsule pravastatin 20 mg tablet 20 mg PO DAILY 01/03/24 07/31/24 insulin lispro protamine-lispro 26 unit SQ BID Diabetes 01/23/24 07/31/24 100 unit/mL (75-25) subcutaneous pen empagliflozin 10 mg tablet 10 mg PO DAILY 02/21/24 07/31/24 (Jardiance) levothyroxine 50 mcg tablet 50 mcg PO DAILY 07/02/24 07/31/24 Previous Rx's ?Medication ?Instructions ?Recorded ipratropium 0.5 mg-albuterol 3 mg 3 ml inhalation Q8H 3 months #540 04/15/24 (2.5 mg base)/3 mL nebulization mL soln mycophenolate mofetil 250 mg 250 mg PO BID #120 caps 07/28/24 capsule budesonide 3 mg 9 mg (3 x 3 mg) PO DAILY 90 days 08/14/24 capsule,delayed,extended release #270 ea Allergies Allergy/AdvReac Type Severity Reaction Status Date / Time cephalexin [From Keflex] Allergy Unknown Verified 08/05/24 08:58 allergy reaction [facility] Disclaimer: The information contained in this section may have been updated after the patient was seen, as this information can be updated by other users. Medical History Fibrosis of lung Fatigue Steroid dependence Hemochromatosis Hemochromatosis Chronic respiratory failure with hypoxia History of smoking 30 or more pack years ILD (interstitial lung disease) Dyspnea on exertion Cataract Granuloma annulare Diastolic dysfunction Encounter for monitoring flecainide therapy PAF (paroxysmal atrial fibrillation) Surgical History Uses cochlear implant Hx of tonsillectomy H/O left knee surgery Family History Other Cancer Heart disease Stroke Social History Smoking Status: Never smoker smoking status stop date: 2004 alcohol intake: current alcohol intake frequency: holidays/special occasions only substance use type: denies use current occupational status: employed and other Travel in the last 8 weeks: None household members: spouse housing: house 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 [employer] current occupational exposures/hazards: Yes ([employer]) caffeine: Yes Other Medical History Have you received the Flu Vaccine for this season: No Have you received the Pneumonia Vaccine: Yes ROS Obtained: Yes All systems reviewed & no additional complaints except as documented Physical Exam General General appearance: alert Head Head exam: atraumatic and normocephalic Eye Eye exam: Present normal appearance, PERRL and EOMI ENT ENT exam: Present normal oropharynx and normal external ear exam Neck Neck exam: Present normal inspection and full ROM Chest Chest inspection: Present normal inspection and symmetric chest wall rise; Absent tenderness Respiratory Respiratory exam: Present normal lung sounds bilaterally; Absent respiratory distress Cardiovascular Cardiovascular exam: Present tachycardia and irregular rhythm Abdominal Exam Abdominal exam: Present soft; Absent distention, tenderness or guarding Extremities Exam Extremities exam: Present normal inspection; Absent edema or joint swelling Back Exam Back exam: Present normal inspection; Absent tenderness Neurological Exam Neurological exam: Present alert and oriented X3; Absent motor sensory deficit Psychiatric Psychiatric exam: Present normal affect and normal mood Skin Skin exam: Present warm, dry and normal color Lymphatic Lymphatic Findings: no adenopathy Medical Decision Making Medical Records Medical records reviewed: Yes I reviewed the patient's medical records. Screening: Per USPSTF and CDC recommendations, given the prevalence of disease in our region, it is our hospital?s policy to screen for HIV and viral Hepatitis for all patients aged 18 and over and those with ongoing risk factors. Woodrow Inquiry Pt receiving controlled substance: No Woodrow was queried for this patient: No Vital Signs: 08/25/24 22:56 08/25/24 23:00 08/25/24 23:04 Temperature 100.1 F H Temperature Source Oral Oral Pulse Rate 124 H Pulse Rate [Left Radial] 129 H Respiratory Rate 16 34 H Blood Pressure 97/55 L Blood Pressure [Right Arm] 94/51 L Blood Pressure Mean Blood Pressure Mean [Right Arm] 65 Blood Pressure Source Blood Pressure Source [Right Arm] Automatic Cuff Blood Pressure Position Blood Pressure Position [Right Arm] Supine 02 Sat by Pulse Oximetry 95 93 L Oxygen Delivery Method Room Air Oxygen Flow Rate (LPM) 08/25/24 23:37 08/26/24 00:00 08/26/24 00:30 Temperature Temperature Source Pulse Rate 126 H 122 H Pulse Rate [Left Radial] Respiratory Rate 20 20 Blood Pressure 97/56 L 114/64 109/54 L Blood Pressure [Right Arm] Blood Pressure Mean 65 Blood Pressure Mean [Right Arm] Blood Pressure Source Blood Pressure Source [Right Arm] Blood Pressure Position Blood Pressure Position [Right Arm] 02 Sat by Pulse Oximetry 90 L 95 Oxygen Delivery Method Oxygen Flow Rate (LPM) 08/26/24 01:00 08/26/24 01:15 08/26/24 01:29 Temperature Temperature Source Pulse Rate 121 H 122 H 123 H Pulse Rate [Left Radial] Respiratory Rate 20 20 20 Blood Pressure 96/48 L 104/52 L 105/51 L Blood Pressure [Right Arm] Blood Pressure Mean Blood Pressure Mean [Right Arm] Blood Pressure Source Blood Pressure Source [Right Arm] Blood Pressure Position Blood Pressure Position [Right Arm] 02 Sat by Pulse Oximetry 96 96 96 Oxygen Delivery Method Oxygen Flow Rate (LPM) 4 4 08/26/24 01:56 08/26/24 02:09 08/26/24 02:55 Temperature 103.1 F H Temperature Source Rectal Pulse Rate 138 H 130 H 118 H Pulse Rate [Left Radial] Respiratory Rate 26 H 20 16 Blood Pressure 121/85 118/62 100/48 L Blood Pressure [Right Arm] Blood Pressure Mean Blood Pressure Mean [Right Arm] Blood Pressure Source Automatic Cuff Blood Pressure Source [Right Arm] Blood Pressure Position Supine Blood Pressure Position [Right Arm] 02 Sat by Pulse Oximetry 95 94 L Oxygen Delivery Method Room Air Oxygen Flow Rate (LPM) Lab Data Lab results reviewed: Yes I reviewed the patient's lab results. Lab Results 08/25/24 22:52: WBC 4.4 L, RBC 4.44 L, Hgb 13.7 L, Hct 40.2 L, MCV 90.5, MCH 30.9, MCHC 34.1, RDW 14.6, Plt Count 329, MPV 7.6, Neut % (Auto) 84.5 H, Lymph % (Auto) 10.2, Boyd % (Auto) 3.9, Eos % (Auto) 0.9, Baso % (Auto) 0.6, Neut # (Auto) 3.7, Lymph # (Auto) 0.5 L, Boyd # (Auto) 0.2, Eos # (Auto) 0.0, Baso # (Auto) 0.0, PT 11.3, INR 1.01, APTT 22.9, Sodium 138, Potassium 2.8 L*, Chloride 111 H, Carbon Dioxide 21 L, Anion Gap 8.8, BUN 31 H, Creatinine 1.40 H, Estimated Creat Clear 32, Estimated GFR 50 L, Est GFR ( Amer) 60, Glucose 121 H, Lactate < 0.5 L, Calcium 8.3 L, Magnesium 1.7, Total Bilirubin 1.0, AST 39, ALT 31, Alkaline Phosphatase 268 H, Total Protein 6.2 L, Albumin 2.8 L, G lobulin 3.4 H, Albumin/Globulin Ratio 0.8 L, HIV 1&2 Antibody Rapid Nonreactive 08/25/24 22:57: VBG pH 7.43 H, VBG pCO2 30.3 L, VBG pO2 37.8, VBG HCO3 19.4 L, V BG Total CO2 20.4 L, VBG O2 Saturation 76.8 H, VBG Base Excess -5.0 L, VBG Lactic Acid 2.0 08/25/24 23:00: SARS-CoV-2 (PCR) Not detected, Influenza A Untype (PCR) Not detected, Influenza Type B (PCR) Not detected 08/25/24 23:41: Urine Color Yellow, Urine Appearance Sl cloudy, Urine pH 6.0, Ur Specific [place] 1.015, Urine Protein 2+ A, Urine Glucose (UA) 3+, Urine Ketones Negative, Urine Blood 3+ A, Urine Nitrate Positive, Urine Bilirubin Negative, Urine Urobilinogen 0.2, Ur Leukocyte Esterase 2+ A, Urine RBC 5-10, Urine WBC Tntc, Ur Squamous Epith Cells 3-5, Urine Bacteria 2+, Fine Granular Casts Occasional 08/26/24 01:29: Troponin I 2.95 H 08/25/24 22:52 08/25/24 22:52 Orders (Tests/Meds): ED MEDICATIONS Generic Name Dose Route Start Last Admin Trade Name Freq PRN Reason Stop Dose Admin Acetaminophen 1,000 mg 08/26/24 02:04 Acetaminophen 500mg Tab PO 08/26/24 02:05 ONCE ONE Norepinephrine/Dextrose 8 mg in 250 mls @ 3.75 mls/hr 08/26/24 01:43 08/26/24 02:00 Norepinephrine 8mg/250ml-D5w Premix IV 09/25/24 01:42 Not Given .Q24H MARLEN Protocol 2 MCG/MIN Norepinephrine Bitartrate 8 mg 08/26/24 02:00 08/26/24 02:01 Norepinephrine Bit 4mg/4ml Vial IV 09/25/24 01:59 8 mg TITR MARLEN Administration Sodium Chloride 10 ml 08/25/24 23:49 08/25/24 23:50 Sodium Chloride 0.9% 10ml Syr (Rad Only) IV 09/24/24 23:48 10 ml NEEDED PRN Administration Maintain IV Site Discontinued Medications Generic Name Dose Route Start Last Admin Trade Name Freq PRN Reason Stop Dose Admin Lactated Ringer's 1,430 mls @ 715 mls/hr 08/25/24 22:54 08/25/24 22:59 Lactated Ringer's 1000 Ml Bag 30 ml/kg infuse over 2 hr (1430 ml) 08/26/24 00:53 715 mls/hr IV Administration .Q2H ONE Protocol Ceftriaxone Sodium 2 gm/ 100 mls @ 200 mls/hr 08/25/24 22:56 08/25/24 22:59 Sodium Chloride IV 08/25/24 23:25 200 mls/hr ONCE ONE Administration Potassium Chloride/Water 100 mls @ 100 mls/hr 08/25/24 23:45 08/26/24 02:20 Potassium Chloride 10meq/100ml Ivpb IV 08/26/24 02:44 100 mls/hr Q1H MARLEN Administration Iopamidol 70 ml 08/25/24 23:49 08/25/24 23:51 Iopamidol-370 (76%);100ml Bottle IV 08/25/24 23:50 70 ml ONCE ONE Administration Potassium Chloride 40 meq 08/25/24 23:38 08/26/24 00:07 Potassium Chloride 20meq Tab PO 08/25/24 23:39 40 meq ONCE ONE Administration Sodium Chloride 50 ml 08/25/24 23:49 08/25/24 23:51 0.9 % Sodium Chloride 50 Ml Vial IV 08/25/24 23:50 50 ml ONCE ONE Administration ORDERS Category Date Time Status CT abdomen pelvis w con Stat Cat Scan 08/25/24 23:[address] angio chest PE protocol Stat Cat Scan 08/25/24 23:09 Completed CXR --portable [XR chest portable] Stat Exams 08/25/24 22:56 Completed Activated Partial Thrombo Time Stat Lab 08/25/24 22:52 Completed Complete Blood Count Auto Diff Stat Lab 08/25/24 22:52 Completed Comprehensive Metabolic Panel Stat Lab 08/25/24 22:52 Completed HIV (1&2) Antibody Rapid Stat Lab 08/25/24 22:52 Completed Hep C Ab with Reflex to RNA Stat Lab 08/25/24 22:52 Received Lactic Acid Stat Lab 08/25/24 22:52 Completed Magnesium Stat Lab 08/25/24 22:52 Completed Prothrombin Time INR Stat Lab 08/25/24 22:52 Completed Rapid PCR Covid and Flu A/B Stat Lab 08/25/24 23:00 Completed Trop I [Troponin I] Stat Lab 08/26/24 01:29 Completed Troponin I Q3H Lab 08/26/24 04:00 Ordered Troponin I Q3H Lab 08/26/24 07:00 Ordered Urinalysis and Microscopic Stat Lab 08/25/24 23:41 Completed Blood Culture Stat Micro 08/25/24 22:52 Received Urine Culture Stat Micro 08/25/24 23:41 Received VBG [Venous Blood Gas] Stat RT 08/25/24 22:57 Completed ECG Data Tracing #1: I reviewed this ECG and interpreted as documented below: Sinus tachycardia with rate of 134, ST depressions in the precordial leads, interpretation of EKG is significant limited secondary to baseline artifact ECG initial impression date: 08/26/24 ECG initial impression time: 00:12 Tissue Perfus/Sepsis Re-Eval Sepsis Re-Evaluation Performed: Yes Date Performed: 08/26/24 Time Performed: 02:48 HEART Score History (anamnesis): Slightly suspicious ECG: Significant ST-deviation Age: >65 years Risk factors: 1-2 risk factors Troponin: > 3x normal limit HEART Score: 7 Medical Decision Narrative: 74-year-old male with history of hemochromatosis, cirrhosis, concern for pulmonary fibrosis presents with fever tachycardia and hypotension reports left flank pain and burning with urination.. History was obtained via interactive discussion with EMS, patient, family, chart review. On arrival, patient is febrile, tachycardic to the 130s, hypotensive with maps in the 50s, satting appropriately on room air. Patient is alert and oriented. Full physical exam performed and significant for no significant abnormalities. Differential includes but is not limited to sepsis, septic shock, UTI, pneumonia, septic stone, bacteremia. Patient was given 500 mL of fluid with EMS and total of 2 L fluid bolus in the ER. He is initiated on 2 g of ceftriaxone empirically for coverage of presumed sepsis related to urinary tract infection. after 2 L fluid patient became hypoxic but responded to nasal cannula oxygenation. His blood pressure initially improved after this 2.5 L, but he then again became hypotensive. Given this, he was initiated on Levophed for blood pressure support. We did not give additional fluid resuscitation given patient has received 2 and half liters and we are concerned for acute pulmonary edema. Workup initiated including CBC CMP mag troponin urinalysis blood cultures CT PE, CT abdomen and pelvis. On re-evaluation, patient continues to require Levophed for blood pressure support. Laboratory workup independently interpreted by me and significant for markedly elevated initial troponin of 2.9. His initial EKG showed some ST depressions in the precordial leads associated with marked tachycardia. His repeat EKG after the initial troponin shows resolution/improvement in the ST changes with some improvement of tachycardia as well. No acute ST elevation to activate [employer]. Laboratory results also show significant hypokalemia at 2.8, this was repleted orally and IV. Also significant for mild ONEIL with creatinine 1.4, up from baseline of around 1.0. Imaging independently interpreted by me and significant for findings consistent with left pyelonephritis. Patient does have hydronephrosis and ureteral enhancement on that side but there is no evidence of obstructing pathology given this, I do not think you need to be transferred for emergent urologic intervention. There is also evidence of a new/enlarged adrenal lesion. see radiology read for full review of final results. Given patient history, exam and workup, patient's presentation most likely represents septic shock related to left-sided pyelonephritis these findings were communicated with family. Patient's troponin elevation seems most likely rate related ischemia. I discussed the case with Dr. Berger who accepted the patient on behalf of Dr. Almanzar. Procedures Risk/Benefits of Procedure(s) Were Explained: Yes Critical Care Critical Care Time Critical Care Time: Yes Attestation: On 08/25/24, the high probability of a clinically significant, sudden or life threatening deterioration of the following system(s) cardiac, pulmonary required my full and direct attention, intervention and personal management. The time I documented below is in addition to time spent performing reported procedures but includes the following listed in this critical care notation. Total Time Total Critical Care Time: 70
[2024-08-25 23:15] LABS: Alanine Aminotransferase 31 U/L (12-78); Albumin Level 2.8 g/dl (3.5-5.0); Albumin/Globulin Ratio 0.8 (1.1-1.8); Alkaline Phosphatase 268 U/L (38-126); Anion Gap 8.8 mEq/L (5-15); Aspartate Amino Transferase 39 U/L (17-59); Blood Urea Nitrogen 31 mg/dl (9-20); Calcium 8.3 mg/dl (8.4-10.2); Carbon Dioxide 21 mmol/L (22.0-30.0); Chloride 111 mmol/L (98-107); Creatinine Clearance Estimated 32 mL/min (50-200); Estimated Glomerular Filt Rate 50 ml/min (>60); GFR (African American) 60 ML/MIN (>60); Globulin 3.4 g/dL (1.3-3.2); Glucose 121 mg/dl (74-100); Sodium 138 mmol/L (136-145); Total Protein,Serum 6.2 g/dl (6.3-8.2)
[2024-08-25 23:33] LABS: Activated Partial Thrombo Time 22.9 seconds (22.8-30.6); INR 1.01 (0.9-1.1); Prothrombin Time 11.3 seconds (10.1-12.5)
[2024-08-25 23:36] LABS: Lactic Acid < 0.5 mmol/L (0.7-2.1)
[2024-08-25 23:37] VITALS: BP 97/56
[2024-08-25 23:37] LABS: Potassium 2.8 mmoL/L (3.5-5.1)
--- NOTE | 2024-08-25 23:37 | PC.NURSE ---
critical reported from lab, potassium 2.8
[2024-08-25 23:47] LABS: Microscopic, Urine URINE MICROSCOPIC (MICROSCOPIC)
[2024-08-25 23:48] LABS: Appearance,Urine SL CLOUDY (Clear); Bilirubin,Urine Negative (Negative); Blood, Urine 3+ (Negative); Color,Urine YELLOW (Yellow); Glucose,Urine (UA) 3+ (Negative); Ketones,Urine Negative (Negative); Leukocyte Esterase,Urine 2+ (Negative); Nitrate,Urine POSITIVE (Negative); Protein,Urine 2+ (Negative); Specific Gravity, Urine 1.015 (1.005-1.030); Urobilinogen,Urine 0.2 EU/dl (0.2)
[2024-08-25] MEDS: SODIUM CHLORIDE 0.9% 10ML SYR (RAD ONLY) 10 ML IV (23:50)
[2024-08-25 23:51] LABS: Magnesium 1.7 mg/dl (1.6-2.3)
[2024-08-25] MEDS: IOPAMIDOL-370 (76%);100ML BOTTLE 70 ML IV (23:51)
[2024-08-25] MEDS: 0.9 % SODIUM CHLORIDE 50 ML VIAL IV (23:51)
[2024-08-25 23:52] LABS: HIV (1&2) Antibody Rapid NONREACTIVE (NONREACTIVE)
[2024-08-25 23:58] LABS: Bacteria,Urine 2+ /lpf; WBC,Urine TNTC #/hpf (0-3)
[2024-08-25 23:59] LABS: Fine Granular Casts,Urine Occasional #/lpf (0)
[2024-08-26] VITALS (43 sets, daily range): BP systolic 76–134; BP diastolic 39–85; PULSE 81–138; RESP 16–38; TEMP 36.9–39.5; O2SAT 87–98; BMI 18.1
[2024-08-26] MEDS: KCl 10mEq/100ml 100 ML 100 MEQ IV ×3 (00:07→02:20)
[2024-08-26] MEDS: POTASSIUM CHLORIDE 20MEQ TAB 40 MEQ PO (00:07)
--- NOTE | 2024-08-26 00:12 | ECG_ITS ---
APPROVED REPORT Exam: Resting ECG HR:134 bpm ECG Measurements Heart Rate 134 AXES AK 184 P 49 QRSd 84 QRS -44 QT 390 T 25 QTc 469 Conclusion SINUS TACHYCARDIA LEFT AXIS DEVIATION [QRS AXIS < -30] LOW QRS VOLTAGE IN EXTREMITY LEADS [QRS DEFLECTION < 0.5 mV IN LIMB LEADS] ST DEPRESSION, CONSIDER SUBENDOCARDIAL INJURY [0.1+ mV ST DEPRESSION] ABNORMAL ECG UNCONFIRMED REPORT Electronically signed by : SILVINO RYAN, 08/26/2024 06:26:19
[2024-08-26 01:56] LABS: Troponin I 2.95 ng/ml (0.00-0.034)
[2024-08-26] MEDS: NOREPINEPHRINE 8 MG IV (02:01)
--- NOTE | 2024-08-26 02:12 | ECG_ITS ---
APPROVED REPORT Exam: Resting ECG HR:126 bpm ECG Measurements Heart Rate 126 AXES NH 192 P 60 QRSd 82 QRS -56 QT 407 T 33 QTc 482 Conclusion SINUS TACHYCARDIA LOW QRS VOLTAGE IN EXTREMITY LEADS [QRS DEFLECTION < 0.5 mV IN LIMB LEADS] LEFT ANTERIOR FASCICULAR BLOCK [QRS AXIS <= -45, QR IN I, RS IN II] NONSPECIFIC ST & T-WAVE ABNORMALITY ABNORMAL ECG UNCONFIRMED REPORT Electronically signed by : SILVINO RYAN, 08/26/2024 06:25:57
--- NOTE | 2024-08-26 02:21 | PC.NURSE ---
Levophed started at 8 and has been weaned to 4.
--- NOTE | 2024-08-26 03:10 | PC.NURSE ---
Norepi gtt titrated up to 6mcg/min by Shama STRONG RN, verified by this RN at bedside.
--- NOTE | 2024-08-26 03:19 | PC.NURSE ---
Patient arrived to floor via stretcher from ED at 03:17.
--- NOTE | 2024-08-26 03:20 | PC.NURSE ---
Norepi drip entered and documented as Norepi 8mg with no IV fluids in ER. Correct order entered for drip but unable to document due to previous order. Unable to correctly document titration at this time.
--- NOTE | 2024-08-26 04:15 | PC.NURSE ---
Attempted to give pt tylenol for fever. Pt stated he cannot take tylenol due to hx of liver cirrhosis and gave him ibuprofen around 11pm last night. Room temperature decreased. Extra blankets removed.
--- NOTE | 2024-08-26 04:30 | PC.NURSE ---
Norepi gtt titrated down to 4mcg/min. BP 134/59.
[2024-08-26 04:34] LABS: POC Glucose,Bedside 149 (70-110)
[2024-08-26 04:57] LABS: Troponin I 4.08 ng/ml (0.00-0.034)
--- NOTE | 2024-08-26 05:34 | PC.NURSE ---
Norepi titrated from 4mcg to 5mcg per protocol for hypotension. See vitals record
--- NOTE | 2024-08-26 05:36 | PC.NURSE ---
Norepi titrated from 5mcg to 6mcg per protocol for hypotension. See vital record
--- NOTE | 2024-08-26 05:39 | PC.NURSE ---
Norepi titrared from 6mcg to 7mcg per protocol for hypotension. See vital record
--- NOTE | 2024-08-26 05:42 | PC.NURSE ---
Norepi titrated from 7mcg to 8mcg per protocol r/t hypotension. See vital record
--- NOTE | 2024-08-26 06:01 | PC.NURSE ---
Norepi gtt titrated up to 10mcg/min, BP 81/45
--- NOTE | 2024-08-26 06:08 | PC.NURSE ---
Norepi gtt titrated up to 12mcg/min at this time.
--- NOTE | 2024-08-26 07:41 | PC.NURSE ---
norepi gtt titrated to 10mcg/min at this time. bp 108/58 (72)
--- NOTE | 2024-08-26 08:12 | HMH.PHAINT1 ---
Pharmacy Intervention Comments: Home medications verified using list from pharmacy and interview with patient's at bedside.
[2024-08-26 08:23] LABS: POC Glucose,Bedside 184 (70-110)
[2024-08-26] MEDS: humaLOG 100 UNITS/ML 10ML VIAL (SSI) SUBCUT ×4 (08:37→19:58)
--- NOTE | 2024-08-26 08:54 | P.HP_ITS ---
History of Present Illness *Admission Date: 08/25/24 *Reason for visit:: Fever *History of present illness: Mr. Trevino is a 74-year-old male with a complicated history to include kidney stones, stable steatohepatitis, diagnosis of hematochromatosis, hearing loss with cochlear implants, atrial dysrhythmia, type 2 diabetes mellitus, lung with residual fibrosis, cholelithiasis He was brought to [facility] emergency room for evaluation after experiencing a fever of 103+ at home. 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 While she napped he developed a fever and she noted it to be greater than 103. She did give him some ibuprofen and it remained at 103+. Initially he refused to come to the hospital but then son called an ambulance and was brought to [facility] for ev aluation. On arrival to the emergency room he was found to be tachycardic and hypotensive. He reported having intermittent burning with urination over the past few weeks and left-sided abdominal pain over the last couple of days. With evaluation in the emergency room white count was found to be 4.4 with a hemoglobin of 13.7 hematocrit of 40.2. Potassium was low at 2.8. Liver function studies with elevated alkaline phosphatase at 268. Albumin was low at 2.8. COVID and flu test were negative. Urine was positive for UTI. He was started on norepinephrine drip and given 2000+ of IV fluids. He was also started on Rocephin IV. He was given several rounds of potassium chloride IV; troponin I was noted to be elevated at 2.9. Initial EKG shows some ST depression in the precordial leads with marked tachycardia. Repeat EKG showed resolution and improvement of the ST changes with decrease in heart rate as well. Chest CTA showed the following: IMPRESSION: 1. No CT evidence of acute pulmonary Embolus. 2. No visible acute intrathoracic abnormality. 3. Chronic pleural-parenchymal scarring and/or infection. 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 The likely source of the patient's febrile illness is discussed in the CT abdomen and pelvis Abdominal pelvic CT showed the following: FINDINGS: Liver: Hepatomegaly, splenomegaly. Gallbladder and biliary ducts: Normal. No calcified stones. No ductal dilation. Pancreas: Normal. No ductal dilation. Spleen: See Liver finding. Adrenal glands: Numerous adrenal lesions are identified. In aggregate, the left adrenal measures 2.8 x 3 cm, and previously measured 1.9 x 1.8 cm Kidneys and ureters: Diffuse urothelial enhancement is demonstrated from the urinary bladder through the left ureter. There is no defined radiodense calculus. New finding since previous examination. Numerous calyceal calculi are present bilaterally. No right hydronephrosis. The distal left ureteral papilla appears very prominent. Stomach and bowel: Unremarkable. No obstruction. No mucosal thickening. Appendix: No evidence of appendicitis. Intraperitoneal space: Unremarkable. No free air. No significant fluid collection. Vasculature: Diffuse mild ectasia of the abdominal aorta maximum diameter 3 cm. Lymph nodes: Calcified gallstones periaortic lymph nodes are also increased since the previous examination. Urinary bladder: Unremarkable as visualized. Reproductive: Unremarkable as visualized. Bones/joints: No destructive bone lesions. Soft tissues: Unremarkable. Other findings: Most of these are intermediate density and are apparently new since the previous examination. IMPRESSION: 1. Acute urinary tract infection. Left pyelonephritis. Severe left hydronephrosis. No obstructing calculus identified. 2. Additionally, there is been interval development of adrenal metastasis not seen on the February examination from earlier this year. Increasing retroperitoneal adenopathy. Correlate with history of malignancy. This a.m. patient remains on norepinephrine drip. He continues with a low-grade fever. He is voiding without difficulty. He denies any chest or abdominal pain. He denies shortness of breath although he remains on oxygen. [facility] Disclaimer: The information contained in this section may have been updated after the patient was seen, as this information can be updated by other users. Medical History Fibrosis of lung Fatigue Steroid dependence Hemochromatosis Hemochromatosis Chronic respiratory failure with hypoxia History of smoking 30 or more pack years ILD (interstitial lung disease) Dyspnea on exertion Cataract Granuloma annulare Diastolic dysfunction Encounter for monitoring flecainide therapy PAF (paroxysmal atrial fibrillation) Surgical History Uses cochlear implant Hx of tonsillectomy H/O left knee surgery Family History Other Cancer Heart disease Stroke Social History (Updated 08/26/24 @ 04:43 by Brie Alejo RN) Smoking Status: Former smoker tobacco type: cigarettes packs per day: 1 smoking status stop date: 2004 how long ago did patient quit smokin alcohol intake: never substance use type: denies use current occupational status: employed and other Travel in the last 8 weeks: None household members: spouse housing: house 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 [employer] current occupational exposures/hazards: Yes ([employer]) caffeine: Yes Other Medical History Have you received the Flu Vaccine for this season: No Have you received the Pneumonia Vaccine: Yes Review of Systems Constitutional Constitutional: Denies frequent falls, Denies headache(s), Reports lethargy and Reports weakness Eyes Eyes: Denies change in vision ENT Ears, Nose, Mouth, and Throat: Denies otalgia, Denies headache(s), Denies nasal congestion, Denies sore throat and Denies vertigo *Cardiovascular Cardiovascular: Denies chest pain, Reports dyspnea, Denies leg edema and Reports rapid heart rate *Respiratory Respiratory: Denies chest congestion, Denies cough and Reports dyspnea *Gastrointestinal Gastrointestinal: Denies loose stools, Denies nausea and Denies vomiting *Musculoskeletal Musculoskeletal: Denies abnormal gait and Reports muscle weakness *Neurologic Neurologic: Denies abnormal gait, Denies confusion, Denies frequent falls, Denies headache(s), Denies vertigo and Reports weakness Psychiatric Psychiatric: Denies confusion Meds Home Medications and Allergies Home Medications ?Medication ?Instructions ?Recorded ?Confirmed ?Type ezetimibe 10 mg tablet 10 mg PO DAILY 01/01/19 08/26/24 History metformin 500 mg tablet 500 mg PO BID 01/02/19 08/26/24 History cholecalciferol (vitamin D3) 25 1,000 unit PO DAILY 01/23/19 08/26/24 History mcg (1,000 unit) capsule pravastatin 20 mg tablet 20 mg PO DAILY 01/03/24 08/26/24 History insulin lispro protamine-lispro 0 unit SQ DIRECTED Diabetes 01/23/24 08/26/24 History 100 unit/mL (75-25) subcutaneous pen empagliflozin 10 mg tablet 10 mg PO DAILY 02/21/24 08/26/24 History (Jardiance) ipratropium 0.5 mg-albuterol 3 mg 3 ml inhalation Q8H 3 months #540 04/15/24 08/26/24 Rx (2.5 mg base)/3 mL nebulization mL soln levothyroxine 50 mcg tablet 50 mcg PO DAILY 07/02/24 08/26/24 History mycophenolate mofetil 250 mg 250 mg PO BID #120 caps 07/28/24 08/26/24 Rx capsule budesonide 3 mg 9 mg PO HS 08/26/24 08/26/24 History capsule,delayed,extended release New Prescriptions to Start Prescriptions: Allergies Allergy/AdvReac Type Severity Reaction Status Date / Time cephalexin [From Keflex] Allergy Unknown Verified 08/05/24 08:58 allergy reaction Exam Data for Last 24 hours Vital signs and Labs for Last 24 Hours: Temp Pulse Resp BP Pulse Ox O2 Del Method O2 Flow Rate 99.7 F H 104 H 26 H 97/55 L 95 Nasal Cannula 4 08/26/24 07:58 08/26/24 07:57 08/26/24 07:00 08/26/24 07:00 08/26/24 07:57 08/26/24 07:57 08/26/24 07:57 Laboratory Results - last 24 hr 08/25/24 22:52: WBC 4.4 L, RBC 4.44 L, Hgb 13.7 L, Hct 40.2 L, MCV 90.5, MCH 30.9, MCHC 34.1, RDW 14.6, Plt Count 329, MPV 7.6, Neut % (Auto) 84.5 H, Lymph % (Auto) 10.2, [place] % (Auto) 3.9, Eos % (Auto) 0.9, Baso % (Auto) 0.6, Neut # (Auto) 3.7, Lymph # (Auto) 0.5 L, [place] # (Auto) 0.2, Eos # (Auto) 0.0, Baso # (Auto) 0.0, PT 11.3, INR 1.01, APTT 22.9, Sodium 138, Potassium 2.8 L*, Chloride 111 H, Carbon Dioxide 21 L, Anion Gap 8.8, BUN 31 H, Creatinine 1.40 H, Estimated Creat Clear 32, Estimated GFR 50 L, Est GFR ( Amer) 60, Glucose 121 H, Lactate < 0.5 L, Calcium 8.3 L, Magnesium 1.7, Total Bilirubin 1.0, AST 39, ALT 31, Alkaline Phosphatase 268 H, Total Protein 6.2 L, Albumin 2.8 L, Globulin 3.4 H, Albumin/Globulin Ratio 0.8 L, HIV 1&2 Antibody Rapid Nonreactive 08/25/24 22:57: VBG pH 7.43 H, VBG pCO2 30.3 L, VBG pO2 37.8, VBG HCO3 19.4 L, VBG Total CO2 20.4 L, VBG O2 Saturation 76.8 H, VBG Base Excess -5.0 L, VBG Lactic Acid 2.0 08/25/24 23:00: SARS-CoV-2 (PCR) Not detected, Influenza A Untype (PCR) Not d etected, Influenza Type B (PCR) Not detected 08/25/24 23:41: Urine Color Yellow, Urine Appearance Sl cloudy, Urine pH 6.0, Ur Specific [place] 1.015, Urine Protein 2+ A, Urine Glucose (UA) 3+, Urine Ketones Negative, Urine Blood 3+ A, Urine Nitrate Positive, Urine Bilirubin Negative, Urine Urobilinogen 0.2, Ur Leukocyte Esterase 2+ A, Urine RBC 5-10, Urine WBC Tntc, Ur Squamous Epith Cells 3-5, Urine Bacteria 2+, Fine Granular Casts Occasional 08/26/24 01:29: Troponin I 2.95 H 08/26/24 04:20: Troponin I 4.08 H 08/26/24 04:26: POC Glucose 149 H 08/26/24 08:16: POC Glucose 184 H I & O for Last 24 hours: Intake & Output 08/23/24 08/24/24 08/25/24 08/26/24 11:59 11:59 11:59 11:59 Intake Total 1630 / 1630 Output Total 795 / 795 Balance 835 / 835 Weight 109 lb 2.061 oz Constitutional Constitutional: no acute distress and thin Comments: Pending cannotAwakens easily. Answers all questions although he is extremely get his hearing aids to work. is at bedside and helps with history. *Routine HEENT Exam Head: Present normocephalic and atraumatic Eye: Present PERRL; Absent conjunctival icterus, scleral injection or conjunctivae pink ENT: Present mucous membranes moist and oropharynx clear *Routine Neck Exam Neck: Present supple; Absent carotid bruit, lymphadenopathy or thyromegaly *Routine Respiratory Exam Respiratory: Present crackles; Absent wheezes Comments: Few fibrotic crackles in the bases *Routine Cardiovascular Exam Cardiovascular: Present RRR *Routine Abdominal Exam Abdominal: Present soft and normoactive bowel sounds; Absent tenderness, distended or guarding *Routine Rectal Exam Rectal:: deferred *Routine Genitalia Exam Genitalia:: deferred *Routine Extremities Exam Extremities: Present pulses intact; Absent edema or calf tenderness *Routine Neurological Exam Neurological: Present alert and moving all extremities; Absent sensory deficit Assessment and Plan *Assessment and plan (1) Acute pyelonephritis: Status: Acute Category: Medical Code(s): N10 - Acute pyelonephritis (2) Septic shock: Status: Acute Category: Medical Code(s): A41.9 - Sepsis, unspecified organism; R65.21 - Severe sepsis with septic shock (3) Sepsis: Status: Acute Qualifiers: Sepsis type: sepsis due to unspecified organism Sepsis acute organ dysfunction status: with acute organ dysfunction Severe sepsis acute organ dysfunction type: unspecified Severe sepsis shock status: with septic shock Qualified Code(s): A41.9 - Sepsis, unspecified organism; R65.21 - Severe sepsis with septic shock Category: Medical Code(s): A41.9 - Sepsis, unspecified organism (4) Respiratory failure: Status: Acute Qualifiers: Chronicity: unspecified Respiratory failure complication: hypoxia Qualified Code(s): J96.91 - Respiratory failure, unspecified with hypoxia Category: Medical Code(s): J96.90 - Respiratory failure, unspecified, unspecified whether with hypoxia or hypercapnia (5) Acute non-ST elevation myocardial infarction (NSTEMI): Status: Acute Category: Medical Code(s): I21.4 - Non-ST elevation (NSTEMI) myocardial infarction (6) Adrenal abnormality: Status: Acute Category: Medical Code(s): E27.9 - Disorder of adrenal gland, unspecified (7) Portal hypertension: Status: Acute Category: Medical Code(s): K76.6 - Portal hypertension (8) Autoimmune hepatitis: Status: Acute Category: Medical Code(s): K75.4 - Autoimmune hepatitis (9) Compound heterozygous hemochromatosis type 1: Status: Acute Category: Medical Code(s): E83.110 - Hereditary hemochromatosis (10) Elevated alkaline phosphatase level: Status: Acute Category: Medical Code(s): R74.8 - Abnormal levels of other serum enzymes (11) Cholestatic hepatitis: Status: Acute Category: Medical Code(s): K75.89 - Other specified inflammatory liver diseases (12) Cholestatic cirrhosis: Status: Acute Category: Medical Code(s): K74.3 - Primary biliary cirrhosis (13) Fibrosis of lung: Status: Acute Category: Medical Code(s): J84.10 - Pulmonary fibrosis, unspecified (14) Weight loss, abnormal: Status: Acute Category: Medical Code(s): R63.4 - Abnormal weight loss (15) Hepatosplenomegaly: Status: Acute Category: Medical Code(s): R16.2 - Hepatomegaly with splenomegaly, not elsewhere classified (16) Fatigue: Status: Acute Category: Medical Code(s): R53.83 - Other fatigue (17) Steroid dependence: Status: Acute Category: Medical Code(s): F19.20 - Other psychoactive substance dependence, uncomplicated (18) Chronic respiratory failure with hypoxia: Status: Acute Category: Medical Code(s): J96.11 - Chronic respiratory failure with hypoxia (19) History of smoking 30 or more pack years: Status: Acute Category: Social Hx Code(s): Z87.891 - Personal history of nicotine dependence (20) ILD (interstitial lung disease): Status: Acute Category: Medical Code(s): J84.9 - Interstitial pulmonary disease, unspecified (21) Leukopenia: Status: Acute Qualifiers: Leukopenia type: unspecified Qualified Code(s): D72.819 - Decreased white blood cell count, unspecified Category: Medical Code(s): D72.819 - Decreased white blood cell count, unspecified (22) Retroperitoneal lymphadenopathy: Status: Acute Category: Medical Code(s): R59.0 - Localized enlarged lymph nodes (23) 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 Currently being weaned from norepinephrine drip. Cardiology has been consulted. Will continue to monitor labs. Dr. Berger discussed the case with oncology, Dr. Kramer. Dr. Begrer entry - Saw patient, plan to give a 500 mL NS bolus now and wean off of pressors. Await cultures
[2024-08-26] MEDS: NOREPINEPHRINE BITARTRATE 8 MG in 0.9 % SODIUM CHLORIDE 250 ML 15.48 MG IV (09:04)
--- NOTE | 2024-08-26 09:06 | CA_ITS ---
APPROVED REPORT EXAM: Comprehensive 2D, Doppler, and color-flow Echocardiogram Concrete Floater: Shawna Matias CRT Ht: 5 ft 4 in Wt: 109lbs BSA: 1.51 BP: 100/48 mmHg Indications: COPD, Shortness of Breath, Non STEMI, Atrial Fibrillation, Diabetes, Fatigue, pulmonary fibrosis, UTI, Ablation, septic shock, UTI 2D Dimensions LA Volume 46.80 mL LA Volume Index 30.20 mL/m2 (M/F) 16-34 M-Mode Dimensions RVDd 3.81 cm (0.9-2.6) LA Diam 3.35 cm (1.9-4.0) LVDd 2.88 cm (3.5-5.7) LVDs 1.98 cm (3.5-5.7) IVSd 1.57 cm (0.6-1.1) PWd 1.08 cm (0.6-1.1) EF (Teich) 60.90% FS 31.30% EDV (Teich) 31.70 mL TAPSE 1.98 (<1.7) ESV (Teich) 12.40 mL LV Diastology E Decel Time 150 (160-240 msec) E/A Ratio 1.93 MED A' 14.50 cm/s LAT A' 10.10 cm/s Aortic Valve AO Peak GR. 5.90 mmHg Mitral Valve MV E Max Jerald. 84.0 (40-130 cm/s) MV A Velocity 44.0 (40-130 cm/s) E/A Ratio 1.93 MV PHT 44.0 ms Pulmonary Valve PV Peak Velocity 173.0 (50-150 cm/s) Tricuspid Valve TR P. Velocity 259.00 cm/s RAP Estimate 10.00 mmHg RVSP 36.80 mmHg Left Ventricle The left ventricle is normal size. The left ventricular systolic function is low normal. There is increased LV wall thickness. The septum is asynchronous. The left ventricular diastolic function is normal. LVEF is 50%. Right Ventricle The right ventricle is mildly dilated. The right ventricular systolic function is normal. Atria Left atrium is mildly dilated. The right atrium is mildly dilated. There is no Doppler evidence of interatrial shunt. Aortic Valve Aortic valve is mildly thickened. There is no aortic valvular stenosis. Trace aortic regurgitation. Mitral Valve The mitral valve leaflets are mildly thickened. No evidence of mitral valve stenosis. Trace mitral regurgitation. Tricuspid Valve The tricuspid valve leaflets are thin and pliable. Mild to moderate tricuspid regurgitation. RVSP is 30-35 mmHg. Pulmonic Valve The pulmonary valve is normal in structure. Mild pulmonic regurgitation. Great Vessels The aortic root is normal in size. The ascending aorta is normal in size. IVC is normal in size and collapses >50% with inspiration. Pericardium There is no pericardial effusion. Other Information Study Quality: Fair Conclusion Low normal LV systolic function (LVEF 50%). Asynchronous septum. Mild RV dilation with normal RV function. Mild biatrial dilation. Mild to moderate TR. Mild PI. RVSP 30-35 mmHg. Compared to prior study from 01/2024, there are overall no significant changes. Electronically signed by : Krystle Coates MD 08/27/2024 11:44:10
[2024-08-26] MEDS: 0.9 % SODIUM CHLORIDE 1000ML 1,000 ML 999 ML IV (09:10)
--- NOTE | 2024-08-26 10:04 | EXP.CARD.CON ---
History of Present Illness History of Present Illness Consult date: 08/26/24 Requesting physician: Shirley Almanzar Chief complaint: fever, chills, left flank pain and dysuria History of present illness: This is a 74-year-old white male with past medical history of hemochromatosis, cirrhosis, pulmonary fibrosis, paroxysmal atrial fibrillation not on anticoagulation, history of ablation 5 years ago and diabetes mellitus who presented to emergency department last night with complaints of left flank pain with dysuria as well as fever and chills. On arrival to emergency department patient was febrile and tachycardic with a heart rate in the 130s. He was also noted to be hypotensive with a MAP in the 50s. His oxygen saturation was normal on room air. Sepsis boluses were initiated however not completed due to patient becoming hypoxic and concern for volume overload. Patient was started on Levophed for pressure support. Initial EKG showed sinus tachycardia at a rate of [address] depression noted with improvement of both heart rate and ST depression on repeat EKG after fluids. Labs as follow: WBC 4.4, hemoglobin 13.7, sodium 138, potassium 2.8, BUN 31, creatinine 1.4, troponin 2.95 trending up to 4.08. A CT abdomen pelvis was obtained which shows an acute UTI and left pyelonephritis with severe left hydronephrosis. Also noted on ct is interval development of an adrenal metastasis which was not seen on a previous exam in February with increased retroperitoneal adenopathy present. CTA chest was obtained which is negative for PE. This morning patient is resting comfortably in bed, denies chest pain or shortness of breath. Levophed is being weaned down and primary service has resumed sepsis boluses for ONEIL and hypotension. Repeat echocardiogram is pending. [facility] Disclaimer: The information contained in this section may have been updated after the patient was seen, as this information can be updated by other users. Medical History Fibrosis of lung Fatigue Steroid dependence Hemochromatosis Hemochromatosis Chronic respiratory failure with hypoxia History of smoking 30 or more pack years ILD (interstitial lung disease) Dyspnea on exertion Cataract Granuloma annulare Diastolic dysfunction Encounter for monitoring flecainide therapy PAF (paroxysmal atrial fibrillation) Surgical History Uses cochlear implant Hx of tonsillectomy H/O left knee surgery Family History Other Cancer Heart disease Stroke Social History (Updated 08/26/24 @ 04:43 by Brie Alejo RN) Smoking Status: Former smoker tobacco type: cigarettes packs per day: 1 smoking status stop date: 2004 how long ago did patient quit smokin alcohol intake: never substance use type: denies use current occupational status: employed and other Travel in the last 8 weeks: None household members: spouse housing: house 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 [employer] current occupational exposures/hazards: Yes ([employer]) caffeine: Yes Review of Systems Constitutional Constitutional: Denies frequent falls, Denies headache(s) and Reports weakness ENT Ears, Nose, Mouth, and Throat: Denies headache(s) and Denies vertigo *Cardiovascular Cardiovascular: Denies chest pain and Reports dyspnea *Respiratory Respiratory: Reports dyspnea *Gastrointestinal Comments: left flank pain *Musculoskeletal Musculoskeletal: Denies abnormal gait *Neurologic Neurologic: Denies abnormal gait, Denies confusion, Denies frequent falls, Denies headache(s), Denies vertigo and Reports weakness Psychiatric Psychiatric: Denies confusion Exam Data for Last 24 hours Vital signs and Labs for Last 24 Hours: Temp Pulse Resp BP Pulse Ox O2 Del Method O2 Flow Rate 99.7 F H 105 H 24 85/56 L 96 Nasal Cannula 4 08/26/24 07:58 08/26/24 09:00 08/26/24 09:00 08/26/24 09:00 08/26/24 09:00 08/26/24 09:00 08/26/24 09:00 Laboratory Results - last 24 hr 08/25/24 22:52: WBC 4.4 L, RBC 4.44 L, Hgb 13.7 L, Hct 40.2 L, MCV 90.5, MCH 30.9, MCHC 34.1, RDW 14.6, Plt Count 329, MPV 7.6, Neut % (Auto) 84.5 H, Lymph % (Auto) 10.2, Powell % (Auto) 3.9, Eos % (Auto) 0.9, Baso % (Auto) 0.6, Neut # (Auto) 3.7, Lymph # (Auto) 0.5 L, Powell # (Auto) 0.2, Eos # (Auto) 0.0, Baso # (Auto) 0.0, PT 11.3, INR 1.01, APTT 22.9, Sodium 138, Potassium 2.8 L*, Chloride 111 H, Carbon Dioxide 21 L, Anion Gap 8.8, BUN 31 H, Creatinine 1.40 H, Estimated Creat Clear 32, Estimated GFR 50 L, Est GFR ( Amer) 60, Glucose 121 H, Lactate < 0.5 L, Calcium 8.3 L, Magnesium 1.7, Total Bilirubin 1.0, AST 39, ALT 31, Alkaline Phosphatase 268 H, Total Protein 6.2 L, Albumin 2.8 L, Globulin 3.4 H, Albumin/Globulin Ratio 0.8 L, HIV 1&2 Antibody Rapid Nonreactive 08/25/24 22:57: VBG pH 7.43 H, VBG pCO2 30.3 L, VBG pO2 37.8, VBG HCO3 19.4 L, VBG Total CO2 20.4 L, VBG O2 Saturation 76.8 H, VBG Base Excess -5.0 L, VBG Lactic Acid 2.0 08/25/24 23:00: SARS-CoV-2 (PCR) Not detected, Influenza A Untype (PCR) Not detected, Influenza Type B (PCR) Not detected 08/25/24 23:41: Urine Color Yellow, Urine Appearance Sl cloudy, Urine pH 6.0, Ur Specific Doole 1.015, Urine Protein 2+ A, Urine Glucose (UA) 3+, Urine Ketones Negative, Urine Blood 3+ A, Urine Nitrate Positive, Urine Bilirubin Negative, Urine Urobilinogen 0.2, Ur Leukocyte Esterase 2+ A, Urine RBC 5-10, Urine WBC Tntc, Ur Squamous Epith Cells 3-5, Urine Bacteria 2+, Fine Granular Casts Occasional 08/26/24 01:29: Troponin I 2.95 H 08/26/24 04:20: Troponin I 4.08 H 08/26/24 04:26: POC Glucose 149 H 08/26/24 08:16: POC Glucose 184 H I & O for Last 24 hours: Intake & Output 08/23/24 08/24/24 08/25/24 08/26/24 23:59 23:59 23:59 23:59 Intake Total 2540.32 / 2540.32 Output Total 795 / 795 Balance 1745.32 / 1745.32 Weight 105 lb 109 lb 2.061 oz Constitutional Constitutional: no acute distress *Routine Respiratory Exam Respiratory: Present CTA bilaterally and symmetric chest movement *Routine Cardiovascular Exam Cardiovascular: Present RRR, Normal S1 and Normal S2 *Routine Abdominal Exam Abdominal: Present soft and normoactive bowel sounds; Absent tenderness *Routine Extremities Exam Extremities: Present full ROM and normal capillary refill; Absent edema *Routine Skin Exam Skin: Present intact, dry and warm Detailed Neck Exam: Thyroids Thyroid: Absent bruit Meds Home Medications and Allergies Home Medications ?Medication ?Instructions ?Recorded ?Confirmed ?Type ezetimibe 10 mg tablet 10 mg PO DAILY 01/01/19 08/26/24 History metformin 500 mg tablet 500 mg PO BID 01/02/19 08/26/24 History cholecalciferol (vitamin D3) 25 1,000 unit PO DAILY 01/23/19 08/26/24 History mcg (1,000 unit) capsule pravastatin 20 mg tablet 20 mg PO DAILY 01/03/24 08/26/24 History insulin lispro protamine-lispro 0 unit SQ DIRECTED Diabetes 01/23/24 08/26/24 History 100 unit/mL (75-25) subcutaneous pen empagliflozin 10 mg tablet 10 mg PO DAILY 02/21/24 08/26/24 History (Jardiance) ipratropium 0.5 mg-albuterol 3 mg 3 ml inhalation Q8H 3 months #540 04/15/24 08/26/24 Rx (2.5 mg base)/3 mL nebulization mL soln levothyroxine 50 mcg tablet 50 mcg PO DAILY 07/02/24 08/26/24 History mycophenolate mofetil 250 mg 250 mg PO BID #120 caps 07/28/24 08/26/24 Rx capsule budesonide 3 mg 9 mg PO HS 08/26/24 08/26/24 History capsule,delayed,extended release New Prescriptions to Start Prescriptions: Allergies Allergy/AdvReac Type Severity Reaction Status Date / Time cephalexin [From Keflex] Allergy Unknown Verified 08/05/24 08:58 allergy reaction Assessment and Plan *Assessment and plan (1) Myocardial injury: Status: Acute Category: Medical Code(s): I5A - Non-ischemic myocardial injury (non-traumatic) (2) Elevated troponin: Status: Acute Category: Medical Code(s): R79.89 - Other specified abnormal findings of blood chemistry (3) Acute pyelonephritis: Status: Acute Category: Medical Code(s): N10 - Acute pyelonephritis (4) Adrenal abnormality: Status: Acute Category: Medical Code(s): E27.9 - Disorder of adrenal gland, unspecified (5) Septic shock: Status: Acute Category: Medical Code(s): A41.9 - Sepsis, unspecified organism; R65.21 - Severe sepsis with septic shock (6) Hypokalemia: Status: Acute Category: Medical Code(s): E87.6 - Hypokalemia Plan Acute myocardial injury Elevated troponin Troponin 2.95 trending up to 4.08 in the setting of acute septic shock, fever and tachycardia Initial EKG had diffuse ST depression noted which improved after fluids Patient denies chest pain or shortness of breath Patient had a normal stress Myoview February 2024 and a normal ejection fraction noted on echo January 2024 Elevated troponin likely secondary to demand ischemia from acute illness Will repeat echo No plan for intervention at this time Acute left pyelonephritis Urinary tract infection Sepsis Septic shock Currently on Levophed drip which is being weaned down Primary service has resumed fluid bolus for sepsis Will defer IV antibiotic management to primary service Hypokalemia Acute kidney injury Initial creatinine 1.4 Initial potassium 2.8-primary service is replacing History of hemochromatosis Adrenal mass Interval development of adrenal metastasis noted on CT abdomen pelvis with increased retroperitoneal adenopathy noted. Will defer to primary service and Dr. Villarreal Patient had a cardiac MRI with and without iron overload protocol for history of hemochromatosis scheduled July 2024 at will try to obtain medical records. CV summary 08/26/2024: Patient stable and being weaned from Levophed drip. Off of oxygen and maintaining oxygen saturation. Fluid bolus resumed. No plan for intervention at this time-elevated troponin likely secondary from demand ischemia. Will repeat echocardiogram. Cardiology will continue to follow along.
[2024-08-26 11:07] LABS: POC Glucose,Bedside 293 (70-110)
[2024-08-26 13:08] LABS: Basophils % 0.6 % (0.1-2.0); Eosinophils % 0.3 % (0.1-12.0); Hematocrit 37.1 % (42.0-52.0); Hemoglobin 12.7 g/dL (14.1-18.0); Lymphocytes # 0.6 K/mm3 (0.7-4.5); Lymphocytes % 10.3 % (10-50); Mean Corpuscular HGB Conc 34.3 g/dL (31.8-35.4); Mean Corpuscular Hemoglobin 31.2 pg (27.0-31.2); Mean Corpuscular Volume 91.1 fl (80-94); Mean Platelet Volume 7.9 fl (7.4-10.4); Monocytes # 0.2 K/mm3 (0.1-1.0); Monocytes % 2.7 % (1.7-9.3); Neutrophils # 5.1 K/mm3 (1.8-7.8); Neutrophils % 86.2 % (37.0-80.0); Platelet Count 332 K/mm3 (142-424); Red Blood Count 4.07 M/mm3 (4.60-6.20); Red Cell Distribution Width 14.8 % (11.5-17.5); White Blood Count 5.9 K/mm3 (4.8-10.8)
[2024-08-26 13:14] LABS: MANUAL DIFFERENTIAL MANUAL DIFFERENTIAL (MANUAL DIFF)
[2024-08-26 13:19] LABS: Anion Gap 9.7 mEq/L (5-15); Blood Urea Nitrogen 27 mg/dl (9-20); Calcium 8.3 mg/dl (8.4-10.2); Carbon Dioxide 20 mmol/L (22.0-30.0); Chloride 111 mmol/L (98-107); Creatinine Clearance Estimated 33 mL/min (50-200); Estimated Glomerular Filt Rate 50 ml/min (>60); GFR (African American) 60 ML/MIN (>60); Glucose 148 mg/dl (74-100); Potassium 3.7 mmoL/L (3.5-5.1); Sodium 137 mmol/L (136-145)
[2024-08-26] MEDS: D5W/0.45% NaCl w/40mEq KCl 1,000 ML 75 ML IV (13:41)
[2024-08-26 14:08] LABS: Lymphocytes % 13 % (10-50); Monocytes % 1 % (2-9); Neutrophils % 86 % (42-76); Platelet Estimate Normal; RBC Morphology Normal; Total Cells Counted 100
[2024-08-26 16:07] LABS: POC Glucose,Bedside 240 (70-110)
[2024-08-26] MEDS: IBUPROFEN 600 MG TABLET PO (16:40)
--- NOTE | 2024-08-26 16:55 | PC.NURSE ---
pt is currently resting supine in bed. pt was weaned to RA from 2L NC this shift and has tolerated well with sats >90%. lung sounds are clear with scattered expiratory wheezing. pt has not complained of SOA this shift. pt has ambulated to the bathroom numerous times to have bms that are liquid in consistency. pt tolerates ambulation well with standby assistance. pt received 1000ml bolus of NS per MD order due to hypotension. pt also has been placed on D5 1/2 NS W/ 40meq KCL @75 for maintenance. pt has gotten as low as 4mcg/min, but has since been increased. levophed currently running at 8mcg/min with maps remaining above 60 and systolic >90. current bp is 95/55 (68), but was previously 86/47 (60) on 6mcg/min levo. potassium level increased to 3.7 from 2.8 overnight with replacement. echo completed this morning pending results. consult placed to cardiology, as well as oncology regarding new found adrenal masses. fsbs was 293 @1100 and 240@1640. hyperglycemia treated w/ss per jan. pt had temperature of 100.4- MD notified and order of ibuprofen 600mg q6 prn placed. abx given per jan. pt has had adequate output using urinal- see i&o. tolerating cardiac diet well and eating majority of tray. no complaints or further needs at this time. bed in low and locked position, call light within reach and bed alarm on for safety.
[2024-08-26] MEDS: ERTAPENEM SODIUM 1 GM in 0.9 % SODIUM CHLORIDE 50 ML IV (17:24)
[2024-08-26] MEDS: NOREPINEPHRINE BITARTRATE 8 MG in 0.9 % SODIUM CHLORIDE 250 ML 19.35 MG IV (18:52)
[2024-08-26] MEDS: PRAVASTATIN 20MG TAB 20 MG PO (19:59)
[2024-08-26 20:00] LABS: POC Glucose,Bedside 200 (70-110)
[2024-08-27] VITALS (26 sets, daily range): BP systolic 88–133; BP diastolic 43–75; PULSE 74–99; RESP 18–30; TEMP 36.6–37.3; O2SAT 90–99; BMI 19.3
[2024-08-27] MEDS: D5W/0.45% NaCl w/40mEq KCl 1,000 ML 75 ML IV (01:37)
--- NOTE | 2024-08-27 04:18 | PC.NURSE ---
Patient remains stable in step down status. He still have D5 0.45% NS with K+ infusing and Norepi gtt per MAR. Patient remains a/o x3 and has appeared to have rested well throughout the shift. Adequate urinary output with 2 formed BM's noted. Attemping to wean off Norepi, but pressures remain soft. NAD, VSS otherwise. Step down care continued.
[2024-08-27 05:41] LABS: POC Glucose,Bedside 192 (70-110)
[2024-08-27] MEDS: humaLOG 100 UNITS/ML 10ML VIAL (SSI) SUBCUT ×4 (05:44→20:27)
[2024-08-27] MEDS: NOREPINEPHRINE BITARTRATE 8 MG in 0.9 % SODIUM CHLORIDE 250 ML 11.61 MG IV (06:25)
[2024-08-27] MEDS: LEVOTHYROXINE 50MCG (0.05MG) TAB 50 MCG PO (06:25)
--- NOTE | 2024-08-27 08:12 | PC.NURSE ---
Notified Doretha JORGENSEN that pt's home meds have not been ordered. No VTE at this time.
--- NOTE | 2024-08-27 08:38 | EXP.ACUTE.PN ---
Subjective *Date: 08/27/24 *Time: 09:09 Interval history: Patient is feeling a little better this am. He has some mild SOA but denies any pain. He still does not have an appetite. He slept off and on. Medical Exam Vital signs and Labs for Last 24 Hours: Vital Signs Temp Pulse Pulse Resp BP Pulse Ox O2 Del Method 08/27/24 08:00 99.1 F 08/27/24 08:00 88 26 H 97/52 L 92 L Nasal Cannula 08/27/24 07:34 Nasal Cannula 08/27/24 07:00 86 26 H 96/53 L 98 Nasal Cannula 08/27/24 06:55 81 21 92/55 L 96 Nasal Cannula 08/27/24 06:50 80 22 98/59 L 97 Nasal Cannula 08/27/24 06:45 80 23 104/56 L 97 Nasal Cannula 08/27/24 06:40 89 26 H 99/57 L 97 Nasal Cannula 08/27/24 06:35 82 25 H 112/69 99 Nasal Cannula 08/27/24 06:30 82 20 133/73 97 Nasal Cannula 08/27/24 06:00 81 30 H 102/62 L 97 Nasal Cannula 08/27/24 05:30 85 28 H 96/58 L 95 Nasal Cannula 08/27/24 05:00 98.9 F 82 26 H 111/68 92 L Room Air 08/27/24 04:00 79 08/27/24 04:00 98.8 F 78 24 91/57 L 96 Nasal Cannula 08/27/24 03:30 79 23 118/75 95 Nasal Cannula 08/27/24 03:00 74 21 92/55 L 94 L Nasal Cannula 08/27/24 02:00 80 23 108/66 L 92 L Nasal Cannula 08/27/24 01:33 81 30 H 112/71 93 L Nasal Cannula 08/27/24 01:30 82 30 H 112/72 94 L Nasal Cannula 08/27/24 01:00 83 21 112/66 92 L Nasal Cannula 08/27/24 00:00 82 08/27/24 00:00 98.9 F 80 26 H 101/66 L 93 L Nasal Cannula 08/26/24 22:00 82 26 H 101/62 L 96 Nasal Cannula 08/26/24 21:05 83 26 H 93 L Nasal Cannula 08/26/24 21:00 84 26 H 93/52 L 87 L Room Air 08/26/24 20:00 82 08/26/24 20:00 27 H 91 L Room Air 08/26/24 20:00 98.4 F 81 24 93/57 L 90 L Room Air 08/26/24 19:35 82 20 95/52 L 90 L Room Air 08/26/24 19:30 83 20 89/50 L 90 L Room Air 08/26/24 19:00 99 F 84 18 90/50 L 91 L Room Air 08/26/24 18:44 Room Air 08/26/24 17:11 99.2 F 92 H 20 87/51 L 93 L Room Air 08/26/24 17:00 Room Air 08/26/24 16:38 107 H 20 100/55 L 93 L Room Air 08/26/24 16:00 100 H 08/26/24 16:00 100 H 93 L Room Air 08/26/24 16:00 100.4 F H 102 H 22 92/51 L 92 L Room Air 08/26/24 15:00 Room Air 08/26/24 13:45 108 H 22 101/50 L 90 L Room Air 08/26/24 13:00 Room Air 08/26/24 12:00 100 H 08/26/24 12:00 95 H 22 95/55 L 90 L Room Air 08/26/24 11:00 92 H 20 95/52 L 93 L Room Air 08/26/24 11:00 Room Air 08/26/24 10:34 103 H 20 82/43 L 93 L Room Air 08/26/24 10:00 107 H 22 76/39 L 94 L Room Air 08/26/24 09:00 105 H 24 85/56 L 96 Nasal Cannula 08/26/24 09:00 Nasal Cannula O2 Flow Rate 08/27/24 08:00 08/27/24 08:00 2 08/27/24 07:34 2 08/27/24 07:00 2 08/27/24 06:55 2 08/27/24 06:50 2 08/27/24 06:45 3 08/27/24 06:40 3 08/27/24 06:35 3 08/27/24 06:30 3 08/27/24 06:00 3 08/27/24 05:30 3 08/27/24 05:00 08/27/24 04:00 08/27/24 04:00 2 08/27/24 03:30 2 08/27/24 03:00 2 08/27/24 02:00 2 08/27/24 01:33 2 08/27/24 01:30 2 08/27/24 01:00 2 08/27/24 00:00 08/27/24 00:00 2 08/26/24 22:00 2 08/26/24 21:05 2 08/26/24 21:00 08/26/24 20:00 08/26/24 20:00 08/26/24 20:00 08/26/24 19:35 08/26/24 19:30 08/26/24 19:00 08/26/24 18:44 08/26/24 17:11 08/26/24 17:00 08/26/24 16:38 08/26/24 16:00 08/26/24 16:00 08/26/24 16:00 08/26/24 15:00 08/26/24 13:45 08/26/24 13:00 08/26/24 12:00 08/26/24 12:00 08/26/24 11:00 08/26/24 11:00 08/26/24 10:34 08/26/24 10:00 08/26/24 09:00 4 08/26/24 09:00 4 Intake and Output 08/26/24 08/27/24 08/27/24 19:59 03:59 11:59 Intake Total 1783.265 / 3420.661 803.55 / 3420.661 833.846 / 3420.661 Output Total 275 / 1275 600 / 1275 400 / 1275 Balance 1508.265 / 2145.661 203.55 / 2145.661 433.846 / 2145.661 Intake: Intake, Oral Amount 960 / 1060 100 / 1060 0 / 1060 Intake, Total IV Amount 823.265 / 1460.661 103.55 / 1460.661 533.846 / 1460.661 0.9 % Sodium Chloride 1000ML 1, 500 / 500 000 ml @ 999 mls/hr IV .Q1H1M ONE Rx#:[id number] D5W/0.45% NaCl w/40mEq KCl 1, 222 / 686 464 / 686 000 ml @ 75 mls/hr IV .[id number] [facility] Rx#:[id number] Infusion Intake 600 / 900 300 / 900 D5W/0.45% NaCl w/40mEq KCl 1, 600 / 900 300 / 900 000 ml @ 75 mls/hr IV .[id number] [facility] Rx#:[id number] Output: Output, Urine Amount 275 / 1275 600 / 1275 400 / 1275 Other: Number of Voids 1 1 Number of Unmeasured Voids 1 1 Number of Bowel Movements 1 1 1 Weight 109 lb 2.061 oz 112 lb 9.6 oz Patient Weight 08/27/24 11:59 Weight 112 lb 9.6 oz Laboratory Results - last 24 hr 08/26/24 11:01: POC Glucose 293 H 08/26/24 12:55: WBC 5.9 D, RBC 4.07 L, Hgb 12.7 L, Hct 37.1 L, MCV 91.1, MCH 31.2, MCHC 34.3, RDW 14.8, Plt Count 332, MPV 7.9, Neut % (Auto) 86.2 H, Lymph % (Auto) 10.3, Victoria % (Auto) 2.7, Eos % (Auto) 0.3, Baso % (Auto) 0.6, Neut # (Auto) 5.1, Lymph # (Auto) 0.6 L, Victoria # (Auto) 0.2, Eos # (Auto) 0.0, Baso # (Auto) 0.0, Total Counted 100, Neutrophils % (Manual) 86 H, Lymphocytes % (Manual) 13, Monocytes % (Manual) 1 L, Platelet Estimate Normal, RBC Morphology Normal, Sodium 137, Potassium 3.7 D, Chloride 111 H, Carbon Dioxide 20 L, Anion Gap 9.7, BUN 27 H, Creatinine 1.40 H, Estimated Creat Clear 33, Estimated GFR 50 L, Est GFR ( Amer) 60, Glucose 148 H D, Calcium 8.3 L 08/26/24 15:59: POC Glucose 240 H 08/26/24 19:52: POC Glucose 200 H 08/27/24 05:34: POC Glucose 192 H I & O for Labs for Last 24 Hours: Intake & Output 08/24/24 08/25/24 08/26/24 08/27/24 11:59 11:59 11:59 11:59 Intake Total 2570.184 / 2870.184 3420.661 / 3420.661 Output Total 1045 / 1045 1275 / 1275 Balance 1525.184 / 9910.700 1584.661 / 2145.661 Weight 109 lb 2.061 oz 112 lb 9.6 oz Microbiology Reports for the Last 24 Hours: Microbiology 08/25/24 22:52 Blood Blood Culture - Preliminary NO GROWTH AFTER 24 HOURS 08/25/24 22:52 Blood Blood Culture - Preliminary NO GROWTH AFTER 24 HOURS Constitutional: Present no acute distress Respiratory: Present CTA bilaterally Cardiac: Present Reg Rate and Rhythm GI: Present soft; Absent distention, tenderness or guarding Extremities: Absent edema Skin: Present intact Neuro: Present alert, awake and oriented x 3 Assessment and Plan *Assessment and plan (1) Acute pyelonephritis: Status: Acute Category: Medical Code(s): N10 - Acute pyelonephritis (2) Septic shock: Status: Acute Category: Medical Code(s): A41.9 - Sepsis, unspecified organism; R65.21 - Severe sepsis with septic shock (3) Sepsis: Status: Acute Qualifiers: Sepsis acute organ dysfunction status: with acute organ dysfunction Sepsis type: sepsis due to unspecified organism Severe sepsis acute organ dysfunction type: unspecified Severe sepsis shock status: with septic shock Qualified Code(s): A41.9 - Sepsis, unspecified organism; R65.21 - Severe sepsis with septic shock Category: Medical Code(s): A41.9 - Sepsis, unspecified organism (4) Respiratory failure: Status: Acute Qualifiers: Chronicity: unspecified Respiratory failure complication: hypoxia Qualified Code(s): J96.91 - Respiratory failure, unspecified with hypoxia Category: Medical Code(s): J96.90 - Respiratory failure, unspecified, unspecified whether with hypoxia or hypercapnia (5) Acute non-ST elevation myocardial infarction (NSTEMI): Status: Acute Category: Medical Code(s): I21.4 - Non-ST elevation (NSTEMI) myocardial infarction (6) Adrenal abnormality: Status: Acute Category: Medical Code(s): E27.9 - Disorder of adrenal gland, unspecified (7) Portal hypertension: Status: Acute Category: Medical Code(s): K76.6 - Portal hypertension (8) Autoimmune hepatitis: Status: Acute Category: Medical Code(s): K75.4 - Autoimmune hepatitis (9) Compound heterozygous hemochromatosis type 1: Status: Acute Category: Medical Code(s): E83.110 - Hereditary hemochromatosis (10) Elevated alkaline phosphatase level: Status: Acute Category: Medical Code(s): R74.8 - Abnormal levels of other serum enzymes (11) Cholestatic hepatitis: Status: Acute Category: Medical Code(s): K75.89 - Other specified inflammatory liver diseases (12) Cholestatic cirrhosis: Status: Acute Category: Medical Code(s): K74.3 - Primary biliary cirrhosis (13) Fibrosis of lung: Status: Acute Category: Medical Code(s): J84.10 - Pulmonary fibrosis, unspecified (14) Weight loss, abnormal: Status: Acute Category: Medical Code(s): R63.4 - Abnormal weight loss (15) Hepatosplenomegaly: Status: Acute Category: Medical Code(s): R16.2 - Hepatomegaly with splenomegaly, not elsewhere classified (16) Fatigue: Status: Acute Category: Medical Code(s): R53.83 - Other fatigue (17) Steroid dependence: Status: Acute Category: Medical Code(s): F19.20 - Other psychoactive substance dependence, uncomplicated (18) Chronic respiratory failure with hypoxia: Status: Acute Category: Medical Code(s): J96.11 - Chronic respiratory failure with hypoxia (19) History of smoking 30 or more pack years: Status: Acute Category: Social Hx Code(s): Z87.891 - Personal history of nicotine dependence (20) ILD (interstitial lung disease): Status: Acute Category: Medical Code(s): J84.9 - Interstitial pulmonary disease, unspecified (21) Leukopenia: Status: Acute Qualifiers: Leukopenia type: unspecified Qualified Code(s): D72.819 - Decreased white blood cell count, unspecified Category: Medical Code(s): D72.819 - Decreased white blood cell count, unspecified (22) Retroperitoneal lymphadenopathy: Status: Acute Category: Medical Code(s): R59.0 - Localized enlarged lymph nodes (23) 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: Status: Acute Category: Medical Code(s): D44.10 - 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 (24) Elevated troponin: Status: Acute Category: Medical Code(s): R79.89 - Other specified abnormal findings of blood chemistry (25) Myocardial injury: Status: Acute Category: Medical Code(s): I5A - Non-ischemic myocardial injury (non-traumatic) (26) Severe protein-calorie malnutrition: Status: Acute Category: Medical Code(s): E43 - Unspecified severe protein-calorie malnutrition (27) Insomnia: Status: Acute Category: Medical Code(s): G47.00 - Insomnia, unspecified Plan Still on the norepinephrine drip, but it has been weaned down. Cardiology feels his troponin is elevated in the setting of acute septic shock and they plan no intervention, but did order an echo. Will continue to try to wean off of pressors. Still awaiting cultures. Dr. Villarreal will need to be involved on an outpatient basis due to possible adrenal cancer. Will discuss further care with Dr. Berger. Dr. Berger entry - Saw patient, agree with above note. Plan to continue Invanz and start Remeron, wean off of pressors.
--- NOTE | 2024-08-27 09:11 | XR_ITS ---
PROCEDURE INFORMATION: Exam: XR Chest Exam date and time: 08/27/2024 9:16 AM Age: 74 years old Clinical indication: Shortness of breath; Additional info: SOA TECHNIQUE: Imaging protocol: Radiologic exam of the chest. Views: 1 view. COMPARISON: CT ANGIO CHEST PE PROTOCOL 08/25/2024 11:50 PM FINDINGS: Lungs: Airspace opacity right lower lobe. Pleural spaces: Left pleural effusion. Heart/Mediastinum: Unremarkable. No cardiomegaly. Bones/joints: Unremarkable. Soft tissues: There is likely skin fold present. IMPRESSION: 1. Left lower lobe infiltrate/effusion. 2. Airspace opacity right lower lobe. This is likely a skin fold present.
[2024-08-27 09:20] LABS: HCV Ab Non Reactive (Non Reactive)
[2024-08-27] MEDS: 0.9 % SODIUM CHLORIDE 1000ML 500 ML 999 ML IV (10:52)
--- NOTE | 2024-08-27 11:08 | EXP.CARD.PN ---
Subjective Subjective Date: 08/27/24 Time: 08:30 Principal diagnosis: Sepsis, UTI, pyelonephritis Interval history: Patient reports he is doing well this morning. Denies chest pain. Reports mild shortness of breath. Levo drip turned off this morning blood pressure systolic above 97. Morning labs pending. Exam Data for Last 24 hours Vital signs and Labs for Last 24 Hours: Temp Pulse Resp BP Pulse Ox O2 Del Method O2 Flow Rate 99.1 F 88 26 H 97/52 L 92 L Nasal Cannula 2 08/27/24 08:00 08/27/24 08:00 08/27/24 08:00 08/27/24 08:00 08/27/24 08:00 08/27/24 08:00 08/27/24 08:00 Laboratory Results - last 24 hr 08/25/24 22:52: Hepatitis C Antibody Non reactive 08/25/24 23:41: Urine Color Yellow, Urine Appearance Sl cloudy, Urine pH 6.0, Ur Specific [place] 1.015, Urine Protein 2+ A, Urine Glucose (UA) 3+, Urine Ketones Negative, Urine Blood 3+ A, Urine Nitrate Positive, Urine Bilirubin Negative, Urine Urobilinogen 0.2, Ur Leukocyte Esterase 2+ A, Urine RBC 5-10, Urine WBC Tntc, Ur Squamous Epith Cells 3-5, Urine Bacteria 2+, Fine Granular Casts Occasional 08/26/24 12:55: WBC 5.9 D, RBC 4.07 L, Hgb 12.7 L, Hct 37.1 L, MCV 91.1, MCH 31.2, MCHC 34.3, RDW 14.8, Plt Count 332, MPV 7.9, Neut % (Auto) 86.2 H, Lymph % (Auto) 10.3, [place] % (Auto) 2.7, Eos % (Auto) 0.3, Baso % (Auto) 0.6, Neut # (Auto) 5.1, Lymph # (Auto) 0.6 L, [place] # (Auto) 0.2, Eos # (Auto) 0.0, Baso # (Auto) 0.0, Total Counted 100, Neutrophils % (Manual) 86 H, Lymphocytes % (Manual) 13, Monocytes % (Manual) 1 L, Platelet Estimate Normal, RBC Morphology Normal, Sodium 137, Potassium 3.7 D, Chloride 111 H, Carbon Dioxide 20 L, Anion Gap 9.7, BUN 27 H, Creatinine 1.40 H, Estimated Creat Clear 33, Estimated GFR 50 L, Est GFR ( Amer) 60, Glucose 148 H D, Calcium 8.3 L 08/26/24 15:59: POC Glucose 240 H 08/26/24 19:52: POC Glucose 200 H 08/27/24 05:34: POC Glucose 192 H I & O for Last 24 hours: Intake & Output 08/24/24 08/25/24 08/26/24 08/27/24 23:59 23:59 23:59 23:59 Intake Total 4653.449 / 4953.449 1817.396 / 1817.396 Output Total 1520 / 1720 950 / 950 Balance 3133.449 / 3233.449 867.396 / 867.396 Weight 105 lb 109 lb 2.061 oz 112 lb 9.6 oz Microbiology Reports for the Last 24 Hours: Microbiology 08/25/24 23:41 Urine,Clean Catch Urine Culture - Preliminary Gram Positive Cocci 08/25/24 22:52 Blood Blood Culture - Preliminary NO GROWTH AFTER 24 HOURS 08/25/24 22:52 Blood Blood Culture - Preliminary NO GROWTH AFTER 24 HOURS Constitutional Constitutional: no acute distress *Routine Respiratory Exam Respiratory: Present CTA bilaterally and symmetric chest movement *Routine Cardiovascular Exam Cardiovascular: Present RRR, Normal S1 and Normal S2 *Routine Abdominal Exam Abdominal: Present soft and normoactive bowel sounds; Absent tenderness *Routine Extremities Exam Extremities: Present full ROM and normal capillary refill; Absent edema *Routine Skin Exam Skin: Present intact, dry and warm Detailed Neck Exam: Thyroids Thyroid: Absent bruit Progress Note: A&P Assessment and plan (1) Acute pyelonephritis: Status: Acute (2) Septic shock: Status: Acute (3) Sepsis: Status: Acute (4) Respiratory failure: Status: Acute (5) Acute non-ST elevation myocardial infarction (NSTEMI): Status: Acute (6) Adrenal abnormality: Status: Acute (7) Portal hypertension: Status: Acute (8) Autoimmune hepatitis: Status: Acute (9) Compound heterozygous hemochromatosis type 1: Status: Acute (10) Elevated alkaline phosphatase level: Status: Acute (11) Cholestatic hepatitis: Status: Acute (12) Cholestatic cirrhosis: Status: Acute (13) Fibrosis of lung: Status: Acute (14) Weight loss, abnormal: Status: Acute (15) Hepatosplenomegaly: Status: Acute (16) Fatigue: Status: Acute (17) Steroid dependence: Status: Acute (18) Chronic respiratory failure with hypoxia: Status: Acute (19) History of smoking 30 or more pack years: Status: Acute (20) ILD (interstitial lung disease): Status: Acute (21) Leukopenia: Status: Acute (22) Retroperitoneal lymphadenopathy: Status: Acute (23) 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: Status: Acute (24) Elevated troponin: Status: Acute (25) Myocardial injury: Status: Acute (26) Severe protein-calorie malnutrition: Status: Acute (27) Insomnia: Status: Acute Assessment and Plan Assessment and Plan for All Diagnoses:: Acute myocardial injury Elevated troponin Troponin 2.95 trending up to 4.08 in the setting of acute septic shock, fever and tachycardia Initial EKG had diffuse ST depression noted which improved after fluids Patient denies chest pain Patient had a normal stress Myoview February 2024 and a normal ejection fraction noted on echo January 2024 Elevated troponin likely secondary to demand ischemia from acute illness Repeat Echo: EF 50%, asynchronous septum, mild RV dilation with normal RV function, mild biatrial dilation, mild to moderate TR, mild PI, RVSP 30-35. Compared to prior study from January 2024 there are overall no significant changes No plan for intervention at this time Acute left pyelonephritis Urinary tract infection Sepsis Septic shock Levophed drip currently off. Systolic blood pressure high 90s. Of note blood pressures reviewed and appear to always run low. Blood pressure was only 105 systolic at last office visit. Maintain blood pressure systolic greater than 95. Will defer IV antibiotic management to primary service Hypokalemia Acute kidney injury Initial creatinine 1.4-improving creatinine 1.2 Initial potassium 2.8-primary service is replacing, today 4.3 History of hemochromatosis Adrenal mass Interval development of adrenal metastasis noted on CT abdomen pelvis with increased retroperitoneal adenopathy noted. Will defer to primary service and Dr. Villarreal Patient had a cardiac MRI with and without iron overload protocol for history of hemochromatosis scheduled July 2024 at will try to obtain medical records. CV summary 08/27/2024: Echo reveals an EF of 50% with no significant change from previous echo January 2024. Patient is off of levo drip. Historically has low blood pressures ranging from 95-105 systolic. Recommend keeping systolic blood pressure greater than 95. Replace volume as needed with gentle hydration while watching for volume overload. Cardiology will sign off. Please contact service as needed for additional concerns.
[2024-08-27 11:42] LABS: Chloride 111 mmol/L (98-107); Potassium 4.3 mmoL/L (3.5-5.1); Sodium 135 mmol/L (136-145)
[2024-08-27 11:45] LABS: Anion Gap 9.3 mEq/L (5-15); Blood Urea Nitrogen 23 mg/dl (9-20); Calcium 8.3 mg/dl (8.4-10.2); Carbon Dioxide 19 mmol/L (22.0-30.0); Creatinine Clearance Estimated 40 mL/min (50-200); Estimated Glomerular Filt Rate 59 ml/min (>60); GFR (African American) 72 ML/MIN (>60); Glucose 244 mg/dl (74-100)
[2024-08-27] MEDS: ENOXAPARIN 40MG/0.4ML SYRINGE 40 MG SUBCUT (11:53)
[2024-08-27 11:54] LABS: POC Glucose,Bedside 216 (70-110)
[2024-08-27] MEDS: ERTAPENEM SODIUM 1 GM in 0.9 % SODIUM CHLORIDE 50 ML IV (16:58)
[2024-08-27 17:02] LABS: POC Glucose,Bedside 173 (70-110)
--- NOTE | 2024-08-27 18:11 | PC.NURSE ---
Pt is currently sitting up in his chair eating dinner. He has remained off levophed gtt since this AM. BP soft but stable. He has also remained on RA since this AM with O2 sats low 90s to upper 90s. He has ambulated to BR with standby assist. Voided per urinal and BR. Pt states he has had some loose stools this shift. Call light within reach.
[2024-08-27 20:14] LABS: POC Glucose,Bedside 198 (70-110)
[2024-08-27] MEDS: PRAVASTATIN 20MG TAB 20 MG PO (20:26)
[2024-08-27] MEDS: MIRTAZAPINE 15 MG TABLET PO (20:26)
[2024-08-28] VITALS (7 sets, daily range): BP systolic 94–114; BP diastolic 52–63; PULSE 85–101; RESP 18–24; TEMP 36.4–37.1; O2SAT 90–94; BMI 19.9
[2024-08-28 06:15] LABS: POC Glucose,Bedside 169 (70-110)
[2024-08-28] MEDS: humaLOG 100 UNITS/ML 10ML VIAL (SSI) SUBCUT ×2 (06:16→11:43)
[2024-08-28] MEDS: LEVOTHYROXINE 50MCG (0.05MG) TAB 50 MCG PO (06:16)
--- NOTE | 2024-08-28 08:24 | EXP.ACUTE.PN ---
Subjective *Date: 08/28/24 *Time: 08:49 Interval history: Patient is off the norepinephrine drip and blood pressure has been stable. He has been on and off oxygen over the last 24 hours. He usually has to have it placed if he exerts himself. He has been up in the chair. He has been able to eat. Medical Exam Vital signs and Labs for Last 24 Hours: Vital Signs Temp Pulse Pulse Resp BP Pulse Ox O2 Del Method 08/28/24 08:00 97.6 F 101 H 19 114/63 94 L Room Air 08/28/24 07:55 Room Air 08/28/24 06:40 Nasal Cannula 08/28/24 06:00 92 H 18 107/62 L 91 L Nasal Cannula 08/28/24 05:00 Nasal Cannula 08/28/24 04:00 90 08/28/24 04:00 98.3 F 08/28/24 04:00 Nasal Cannula 08/28/24 04:00 87 20 109/59 L 90 L Nasal Cannula 08/28/24 03:00 Nasal Cannula 08/28/24 02:00 88 21 105/61 L 92 L Nasal Cannula 08/28/24 01:00 Nasal Cannula 08/28/24 00:00 90 08/28/24 00:00 98.8 F 08/28/24 00:00 85 19 95/52 L 90 L Nasal Cannula 08/27/24 23:00 Nasal Cannula 08/27/24 22:00 90 20 96/48 L 94 L Nasal Cannula 08/27/24 21:18 Nasal Cannula 08/27/24 21:00 Nasal Cannula 08/27/24 20:00 90 08/27/24 20:00 97 H 18 88/54 L 92 L Nasal Cannula 08/27/24 20:00 Nasal Cannula 08/27/24 20:00 98.4 F 08/27/24 18:35 Room Air 08/27/24 18:00 97.8 F 87 24 99/55 L 93 L Room Air 08/27/24 17:00 Room Air 08/27/24 16:00 80 08/27/24 16:00 89 24 95/55 L 90 L Room Air 08/27/24 16:00 Room Air 08/27/24 15:00 Room Air 08/27/24 14:00 96 H 21 92/43 L 92 L Room Air 08/27/24 13:00 Room Air 08/27/24 12:00 90 08/27/24 12:00 99 H 21 114/71 91 L Room Air 08/27/24 12:00 98.7 F 08/27/24 11:00 Room Air 08/27/24 10:00 83 24 97/56 L 91 L Nasal Cannula 08/27/24 09:00 Nasal Cannula O2 Flow Rate 08/28/24 08:00 08/28/24 07:55 08/28/24 06:40 2 08/28/24 06:00 2 08/28/24 05:00 2 08/28/24 04:00 08/28/24 04:00 08/28/24 04:00 2 08/28/24 04:00 2 08/28/24 03:00 2 08/28/24 02:00 2 08/28/24 01:00 2 08/28/24 00:00 08/28/24 00:00 08/28/24 00:00 2 08/27/24 23:00 2 08/27/24 22:00 2 08/27/24 21:18 2 08/27/24 21:00 2 08/27/24 20:00 08/27/24 20:00 2 08/27/24 20:00 2 08/27/24 20:00 08/27/24 18:35 08/27/24 18:00 08/27/24 17:00 08/27/24 16:00 08/27/24 16:00 08/27/24 16:00 08/27/24 15:00 08/27/24 14:00 08/27/24 13:00 08/27/24 12:00 08/27/24 12:00 08/27/24 12:00 08/27/24 11:00 08/27/24 10:00 2 08/27/24 09:00 2 Intake and Output 08/27/24 08/28/24 08/28/24 19:59 03:59 11:59 Intake Total 500 / 1175 240 / 1175 435 / 1175 Output Total 150 / 1500 850 / 1500 500 / 1500 Balance 350 / -325 -610 / -325 -65 / -325 Intake: Intake, Oral Amount 500 / 1175 240 / 1175 435 / 1175 Output: Output, Urine Amount 150 / 1500 850 / 1500 500 / 1500 Other: Number of Unmeasured Voids 1 Number of Bowel Movements 3 1 Weight 116 lb 14.4 oz Patient Weight 08/28/24 11:59 Weight 116 lb 14.4 oz Laboratory Results - last 24 hr 08/25/24 22:52: Hepatitis C Antibody Non reactive 08/25/24 23:41: Urine Color Yellow, Urine Appearance Sl cloudy, Urine pH 6.0, Ur Specific [place] 1.015, Urine Protein 2+ A, Urine Glucose (UA) 3+, Urine Ketones Negative, Urine Blood 3+ A, Urine Nitrate Positive, Urine Bilirubin Negative, Urine Urobilinogen 0.2, Ur Leukocyte Esterase 2+ A, Urine RBC 5-10, Urine WBC Tntc, Ur Squamous Epith Cells 3-5, Urine Bacteria 2+, Fine Granular Casts Occasional 08/27/24 11:24: Sodium 135 L, Potassium 4.3, Chloride 111 H, Carbon Dioxide 19 L, Anion Gap 9.3, BUN 23 H, Creatinine 1.20, Estimated Creat Clear 40, Estimated GFR 59, Est GFR ( Amer) 72, Glucose 244 H D, Calcium 8.3 L 08/27/24 11:47: POC Glucose 216 H 08/27/24 16:45: POC Glucose 173 H 08/27/24 20:04: POC Glucose 198 H 08/28/24 06:08: POC Glucose 169 H I & O for Labs for Last 24 Hours: Intake & Output 08/25/24 08/26/24 08/27/24 08/28/24 11:59 11:59 11:59 11:59 Intake Total 2570.184 / 2870.184 3900.661 / 3900.661 1175 / 1175 Output Total 1045 / 1045 1425 / 1425 1500 / 1500 Balance 1525.184 / 3350.091 8449.661 / 2475.661 -325 / -325 Weight 109 lb 2.061 oz 112 lb 9.6 oz 116 lb 14.4 oz Microbiology Reports for the Last 24 Hours: Microbiology 08/25/24 22:52 Blood Blood Culture - Preliminary 08/25/24 22:52 Blood Blood Culture - Preliminary NO GROWTH AFTER 48 HOURS 08/25/24 23:41 Urine,Clean Catch Urine Culture - Preliminary Gram Positive Cocci Constitutional: Present no acute distress Respiratory: Present CTA bilaterally Cardiac: Present Reg Rate and Rhythm GI: Present soft; Absent distention, tenderness or guarding Extremities: Absent edema Skin: Present intact Neuro: Present alert, awake and oriented x 3 Assessment and Plan *Assessment and plan (1) Acute pyelonephritis: Status: Acute Category: Medical Code(s): N10 - Acute pyelonephritis (2) Septic shock: Status: Acute Category: Medical Code(s): A41.9 - Sepsis, unspecified organism; R65.21 - Severe sepsis with septic shock (3) Sepsis: Status: Acute Qualifiers: Sepsis acute organ dysfunction status: with acute organ dysfunction Sepsis type: sepsis due to unspecified organism Severe sepsis acute organ dysfunction type: unspecified Severe sepsis shock status: with septic shock Qualified Code(s): A41.9 - Sepsis, unspecified organism; R65.21 - Severe sepsis with septic shock Category: Medical Code(s): A41.9 - Sepsis, unspecified organism (4) Bacteremia: Status: Acute Category: Medical Code(s): R78.81 - Bacteremia (5) Respiratory failure: Status: Acute Qualifiers: Chronicity: unspecified Respiratory failure complication: hypoxia Qualified Code(s): J96.91 - Respiratory failure, unspecified with hypoxia Category: Medical Code(s): J96.90 - Respiratory failure, unspecified, unspecified whether with hypoxia or hypercapnia (6) Adrenal abnormality: Status: Acute Category: Medical Code(s): E27.9 - Disorder of adrenal gland, unspecified (7) Portal hypertension: Status: Acute Category: Medical Code(s): K76.6 - Portal hypertension (8) Autoimmune hepatitis: Status: Acute Category: Medical Code(s): K75.4 - Autoimmune hepatitis (9) Compound heterozygous hemochromatosis type 1: Status: Acute Category: Medical Code(s): E83.110 - Hereditary hemochromatosis (10) Elevated alkaline phosphatase level: Status: Acute Category: Medical Code(s): R74.8 - Abnormal levels of other serum enzymes (11) Cholestatic hepatitis: Status: Acute Category: Medical Code(s): K75.89 - Other specified inflammatory liver diseases (12) Cholestatic cirrhosis: Status: Acute Category: Medical Code(s): K74.3 - Primary biliary cirrhosis (13) Fibrosis of lung: Status: Acute Category: Medical Code(s): J84.10 - Pulmonary fibrosis, unspecified (14) Weight loss, abnormal: Status: Acute Category: Medical Code(s): R63.4 - Abnormal weight loss (15) Hepatosplenomegaly: Status: Acute Category: Medical Code(s): R16.2 - Hepatomegaly with splenomegaly, not elsewhere classified (16) Fatigue: Status: Acute Category: Medical Code(s): R53.83 - Other fatigue (17) Steroid dependence: Status: Acute Category: Medical Code(s): F19.20 - Other psychoactive substance dependence, uncomplicated (18) Chronic respiratory failure with hypoxia: Status: Acute Category: Medical Code(s): J96.11 - Chronic respiratory failure with hypoxia (19) History of smoking 30 or more pack years: Status: Acute Category: Social Hx Code(s): Z87.891 - Personal history of nicotine dependence (20) ILD (interstitial lung disease): Status: Acute Category: Medical Code(s): J84.9 - Interstitial pulmonary disease, unspecified (21) Leukopenia: Status: Acute Qualifiers: Leukopenia type: unspecified Qualified Code(s): D72.819 - Decreased white blood cell count, unspecified Category: Medical Code(s): D72.819 - Decreased white blood cell count, unspecified (22) Retroperitoneal lymphadenopathy: Status: Acute Category: Medical Code(s): R59.0 - Localized enlarged lymph nodes (23) 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: Status: Acute Category: Medical Code(s): D44.10 - 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 Still awaiting final urine culture. He will likely need a PICC and continued IV antibiotics. Will discuss with Dr. Berger. Dr. Berger entry - Saw patient, agree with above note.
--- NOTE | 2024-08-28 08:46 | XR_ITS ---
PROCEDURE INFORMATION: Exam: XR Chest Exam date and time: 08/28/2024 11:15 AM Age: 74 years old Clinical indication: Device placement; Picc; Additional info: Confirm picc line placement TECHNIQUE: Imaging protocol: Radiologic exam of the chest. Views: 1 view. COMPARISON: CR XR CHEST PORTABLE 08/27/2024 9:16 AM FINDINGS: Tubes, catheters and devices: A left peripherally inserted central venous catheter lies with its tip in the region of the cavoatrial junction. Lungs: There is nonspecific streaking in the left lung base, consistent with atelectasis or pneumonia. Pleural spaces: Small bilateral pleural effusions appear to be present. Heart/Mediastinum: Unremarkable. No cardiomegaly. Bones/joints: Moderate degenerative changes are seen in both shoulders. There is superior subluxation more obvious on the right with marked narrowing of the subacromial space. IMPRESSION: 1. Small bilateral pleural effusions appear to be present. 2. A left peripherally inserted central venous catheter lies with its tip in the region of the cavoatrial junction. 3. There is nonspecific streaking in the left lung base, consistent with atelectasis or pneumonia.
[2024-08-28] MEDS: ENOXAPARIN 40MG/0.4ML SYRINGE 40 MG SUBCUT (09:15)
--- NOTE | 2024-08-28 10:11 | SW/DCPLANNER ---
Addendum entered by Joan Moeller 08/28/24 12:59: Trish w/ [facility] stated that services will start Sunday for this patient. Addendum entered by Joan Moeller 08/28/24 11:13: Per Paulette a home nurse can be provided for teachings and cost for Ertapenem will be $200/week. I will wait for final antibiotic determination then speak w/ patient and family. Original Note: This patient will need home IV antibiotics at time of discharge. Final pending results are still pending at this time. Patient/ stated they have completed IV antibiotics at home in the past and are comfortable w/ doing this at discharge. I will fax patient information to [facility] for IV medication once determined by MD (current IV medication has been faxed pending cultures). I will follow up w/ Carli at [facility] once information is reviewed. At this time [facility] is the only agency able to accept patient's insurance but services can not start till Saturday 09/01. I have explained to patient/ that I will speak w/ Paulette about providing home teachings till home health services can start. Patient and are agreeable w/ this plan. I will continue to follow up w/ regarding final antibiotic determination at discharge, [facility] and [facility]. Patient could possibly discharge this afternoon.
[2024-08-28 12:03] LABS: POC Glucose,Bedside 255 (70-110)
[2024-08-28] MEDS: ERTAPENEM SODIUM 1 GM in 0.9 % SODIUM CHLORIDE 50 ML IV (12:54)
--- NOTE | 2024-08-28 23:04 | P.DS_ITS ---
General Admission date:: 08/26/24 Discharge date: 08/28/24 HPI HPI HPI: Mr. Trevino is a 74-year-old male with a complicated history to include kidney stones, stable steatohepatitis, diagnosis of hematochromatosis, hearing loss with cochlear implants, atrial dysrhythmia, type 2 diabetes mellitus, lung with residual fibrosis, cholelithiasis He was brought to [facility] emergency room for evaluation after experiencing a fever of 103+ at home. 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 While she napped he developed a fever and she noted it to be greater than 103. She did give him some ibuprofen and it remained at 103+. Initially he refused to come to the hospital but then son called an ambulance and was brought to [facility] for evaluation. On arrival to the emergency room he was found to be tachycardic and hypotensive. He reported having intermittent burning with urination over the p ast few weeks and left-sided abdominal pain over the last couple of days. With evaluation in the emergency room white count was found to be 4.4 with a hemoglobin of 13.7 hematocrit of 40.2. Potassium was low at 2.8. Liver function studies with elevated alkaline phosphatase at 268. Albumin was low at 2.8. COVID and flu test were negative. Urine was positive for UTI. He was started on norepinephrine drip and given 2000+ of IV fluids. He was also started on Rocephin IV. He was given several rounds of potassium chloride IV; troponin I was noted to be elevated at 2.9. Initial EKG shows some ST depression in the precordial leads with marked tachycardia. Repeat EKG showed resolution and improvement of the ST changes with decrease in heart rate as well. Chest CTA showed the following: IMPRESSION: 1. No CT evidence of acute pulmonary Embolus. 2. No visible acute intrathoracic abnormality. 3. Chronic pleural-parenchymal scarring and/or infection. 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 The likely source of the patient's febrile illness is discussed in the CT abdomen and pelvis Abdominal pelvic CT showed the following: FINDINGS: Liver: Hepatomegaly, splenomegaly. Gallbladder and biliary ducts: Normal. No calcified stones. No ductal dilation. Pancreas: Normal. No ductal dilation. Spleen: See Liver finding. Adrenal glands: Numerous adrenal lesions are identified. In aggregate, the left adrenal measures 2.8 x 3 cm, and previously measured 1.9 x 1.8 cm Kidneys and ureters: Diffuse urothelial enhancement is demonstrated from the urinary bladder through the left ureter. There is no defined radiodense calculus. New finding since previous examination. Numerous calyceal calculi are present bilaterally. No right hydronephrosis. The distal left ureteral papilla appears very prominent. Stomach and bowel: Unremarkable. No obstruction. No mucosal thickening. Appendix: No evidence of appendicitis. Intraperitoneal space: Unremarkable. No free air. No significant fluid collection. Vasculature: Diffuse mild ectasia of the abdominal aorta maximum diameter 3 cm. Lymph nodes: Calcified gallstones periaortic lymph nodes are also increased since the previous examination. Urinary bladder: Unremarkable as visualized. Reproductive: Unremarkable as visualized. Bones/joints: No destructive bone lesions. Soft tissues: Unremarkable. Other findings: Most of these are intermediate density and are apparently new since the previous examination. IMPRESSION: 1. Acute urinary tract infection. Left pyelonephritis. Severe left hydronephrosis. No obstructing calculus identified. 2. Additionally, there is been interval development of adrenal metastasis not seen on the February examination from earlier this year. Increasing retroperitoneal adenopathy. Correlate with history of malignancy. This a.m. patient remains on norepinephrine drip. He continues with a low-grade fever. He is voiding without difficulty. He denies any chest or abdominal pain. He denies shortness of breath although he remains on oxygen. Hospital Course Hospital Course Hospital Course: The patient was admitted and started on IV antibiotics and a norepinephrine drip. His blood pressure and heart rate did improve. Cardiology was consulted. Dr. Berger also discussed the patient's case with Dr. Kramer of oncology. He was given a 500 mL normal saline bolus. Cardiology did see the patient and felt his elevated troponin was likely secondary to demand ischemia. They did not plan any intervention but did repeat an echocardiogram. By 08/27/2024, he was feeling better, but was still weak and had no appetite. He also had some mild shortness of air. His norepinephrine drip was being weaned. He was started on Remeron for appetite stimulation. The patient's echo revealed an EF of 50% with no significant change from his previous 1 in January 2024. He was able to be weaned off of the norepinephrine drip and his blood pressure remained stable. He had to have oxygen placed placed occasionally due to exertion. He was able to sit in a chair and eat. His blood and urine culture showed growth. His urine culture showed pansensitive Staph aureus and his preliminary blood culture showed Staph aureus as well. A PICC line was placed and he was stable to be discharged home with daily IV Invanz. Dr. Kramer will see the patient in 1 week and he will also follow-up in the office [facility] Exam Data for Last 24 hours Vital signs and Labs for Last 24 Hours: Temp Pulse Resp BP Pulse Ox O2 Del Method O2 Flow Rate 98.1 F 95 H 24 94/53 L 90 L Nasal Cannula 2 08/28/24 12:00 08/28/24 10:00 08/28/24 10:00 08/28/24 10:00 08/28/24 10:00 08/28/24 13:00 08/28/24 13:00 Laboratory Results - last 24 hr 08/28/24 06:08: POC Glucose 169 H 08/28/24 11:33: POC Glucose 255 H I & O for Last 24 hours: Intake & Output 08/26/24 08/27/24 08/28/24 08/29/24 11:59 11:59 11:59 11:59 Intake Total 2570.184 / 2870.184 3900.661 / 3900.661 1175 / 1175 270 / 270 Output Total 1045 / 1045 1425 / 1425 1700 / 1700 Balance 1525.184 / 5339.199 5178.661 / 2475.661 -525 / -525 270 / 270 Weight 109 lb 2.061 oz 112 lb 9.6 oz 116 lb 14.4 oz Microbiology Reports for the Last 24 Hours: Microbiology 08/25/24 22:52 Blood Blood Culture - Preliminary 08/25/24 23:41 Urine,Clean Catch Urine Culture - Final Staphylococcus aureus 08/25/24 22:52 Blood Blood Culture - Preliminary NO GROWTH AFTER 48 HOURS Narrative: Constitutional Constitutional: no acute distress and thin Comments: Pending cannotAwakens easily. Answers all questions although he is extremely get his hearing aids to work. is at bedside and helps with history. *Routine HEENT Exam Head: Present normocephalic and atraumatic Eye: Present PERRL; Absent conjunctival icterus, scleral injection or conjunctivae pink ENT: Present mucous membranes moist and oropharynx clear *Routine Neck Exam Neck: Present supple; Absent carotid bruit, lymphadenopathy or thyromegaly *Routine Respiratory Exam Respiratory: Present crackles; Absent wheezes Comments: Few fibrotic crackles in the bases *Routine Cardiovascular Exam Cardiovascular: Present RRR *Routine Abdominal Exam Abdominal: Present soft and normoactive bowel sounds; Absent tenderness, distended or guarding *Routine Rectal Exam Rectal:: deferred *Routine Genitalia Exam Genitalia:: deferred *Routine Extremities Exam Extremities: Present pulses intact; Absent edema or calf tenderness *Routine Neurological Exam Neurological: Present alert and moving all extremities; Absent sensory deficit Results Data Completed and Pending Labs on day of discharge: Labs from last 24 hours 08/28/24 08/28/24 11:33 06:08 POC Glucose 255 H 169 H Preliminary micro results at discharge 08/25/24 22:52 Blood Culture - Preliminary Blood 08/25/24 22:52 Blood Culture - Preliminary Blood NO GROWTH AFTER 48 HOURS DS: Diagnosis Discharge Diagnosis (1) Acute pyelonephritis: Status: Acute Code(s): N10 - Acute pyelonephritis (2) Septic shock: Status: Acute Code(s): A41.9 - Sepsis, unspecified organism; R65.21 - Severe sepsis with septic shock (3) Sepsis: Status: Acute Code(s): A41.9 - Sepsis, unspecified organism Qualifiers: Sepsis acute organ dysfunction status: with acute organ dysfunction Sepsis type: sepsis due to unspecified organism Severe sepsis acute organ dysfunction type: unspecified Severe sepsis shock status: with septic shock Qualified Code(s): A41.9 - Sepsis, unspecified organism; R65.21 - Severe sepsis with septic shock (4) Bacteremia: Status: Acute Code(s): R78.81 - Bacteremia (5) Respiratory failure: Status: Acute Code(s): J96.90 - Respiratory failure, unspecified, unspecified whether with hypoxia or hypercapnia Qualifiers: Chronicity: unspecified Respiratory failure complication: hypoxia Qualified Code(s): J96.91 - Respiratory failure, unspecified with hypoxia (6) Adrenal abnormality: Status: Acute Code(s): E27.9 - Disorder of adrenal gland, unspecified (7) Portal hypertension: Status: Acute Code(s): K76.6 - Portal hypertension (8) Autoimmune hepatitis: Status: Acute Code(s): K75.4 - Autoimmune hepatitis (9) Compound heterozygous hemochromatosis type 1: Status: Acute Code(s): E83.110 - Hereditary hemochromatosis (10) Elevated alkaline phosphatase level: Status: Acute Code(s): R74.8 - Abnormal levels of other serum enzymes (11) Cholestatic hepatitis: Status: Acute Code(s): K75.89 - Other specified inflammatory liver diseases (12) Cholestatic cirrhosis: Status: Acute Code(s): K74.3 - Primary biliary cirrhosis (13) Fibrosis of lung: Status: Acute Code(s): J84.10 - Pulmonary fibrosis, unspecified (14) Weight loss, abnormal: Status: Acute Code(s): R63.4 - Abnormal weight loss (15) Hepatosplenomegaly: Status: Acute Code(s): R16.2 - Hepatomegaly with splenomegaly, not elsewhere classified (16) Fatigue: Status: Acute Code(s): R53.83 - Other fatigue (17) Steroid dependence: Status: Acute Code(s): F19.20 - Other psychoactive substance dependence, uncomplicated (18) Chronic respiratory failure with hypoxia: Status: Acute Code(s): J96.11 - Chronic respiratory failure with hypoxia (19) History of smoking 30 or more pack years: Status: Acute Code(s): Z87.891 - Personal history of nicotine dependence (20) ILD (interstitial lung disease): Status: Acute Code(s): J84.9 - Interstitial pulmonary disease, unspecified (21) Leukopenia: Status: Acute Code(s): D72.819 - Decreased white blood cell count, unspecified Qualifiers: Leukopenia type: unspecified Qualified Code(s): D72.819 - Decreased white blood cell count, unspecified (22) Retroperitoneal lymphadenopathy: Status: Acute Code(s): R59.0 - Localized enlarged lymph nodes (23) 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: Status: Acute Code(s): D44.10 - 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 (24) Elevated troponin: Status: Acute Code(s): R79.89 - Other specified abnormal findings of blood chemistry (25) Myocardial injury: Status: Acute Code(s): I5A - Non-ischemic myocardial injury (non-traumatic) (26) Severe protein-calorie malnutrition: Status: Acute Code(s): E43 - Unspecified severe protein-calorie malnutrition (27) Insomnia: Status: Acute Code(s): G47.00 - Insomnia, unspecified Meds Home Medications and Allergies Home Medications ?Medication ?Instructions ?Recorded ?Confirmed ?Type ezetimibe 10 mg tablet 10 mg PO DAILY 01/01/19 08/26/24 History metformin 500 mg tablet 500 mg PO BID 01/02/19 08/26/24 History cholecalciferol (vitamin D3) 25 1,000 unit PO DAILY 01/23/19 08/26/24 History mcg (1,000 unit) capsule pravastatin 20 mg tablet 20 mg PO DAILY 01/03/24 08/26/24 History insulin lispro protamine-lispro 0 unit SQ DIRECTED Diabetes 01/23/24 08/26/24 History 100 unit/mL (75-25) subcutaneous pen empagliflozin 10 mg tablet 10 mg PO DAILY 02/21/24 08/26/24 History (Jardiance) ipratropium 0.5 mg-albuterol 3 mg 3 ml inhalation Q8H 3 months #540 04/15/24 08/26/24 Rx (2.5 mg base)/3 mL nebulization mL soln levothyroxine 50 mcg tablet 50 mcg PO DAILY 07/02/24 08/26/24 History mycophenolate mofetil 250 mg 250 mg PO BID #120 caps 07/28/24 08/26/24 Rx capsule budesonide 3 mg 9 mg PO HS 08/26/24 08/26/24 History capsule,delayed,extended release Ertapenem Sodium [Invanz 1gm Vial] 100 mls/hr IV Q24H 08/28/24 Rx 1 gm New Prescriptions to Start Prescriptions: Ertapenem Sodium [Invanz 1gm Vial] 1 gm 0.9 % Sodium Chloride [Sod Chlor 0.9% 50mL bag] 50 ml 100 mls/hr IV Q24H Allergies Allergy/AdvReac Type Severity Reaction Status Date / Time cephalexin [From Keflex] Allergy Unknown Verified 08/05/24 08:58 allergy reaction Discharge Plan Disposition Patient Disposition: Home, Self-Care Condition: Fair Discharge Order Discharge Orders: Discharge Order (Routine); Ordered 08/28/24 Ordered By: Emir Berger Follow up Plan Follow up with: Shirley Almanzar MD [Primary Care Provider] - 09/05/24 9:15 am Pavan Villarreal MD [Staff Physician] - 09/03/24 11:00 am Prescriptions/Medication Reconciliation: New Ertapenem Sodium [Invanz 1gm Vial] 1 GM 0.9 % Sodium Chloride [Sod Chlor 0.9% 50mL bag] 50 ML 100 mls/hr IV Q24H Ordered By: Emir Berger MD Last Taken: 08/27/24 16:58 100 mls/hr Continued cholecalciferol (vitamin D3) 1,000 unit capsule 1,000 unit PO DAILY pravastatin 20 mg tablet 20 mg PO DAILY ipratropium-albuterol 0.5 mg-3 mg(2.5 mg base)/3 mL solution for nebulization 3 ml inhalation Q8H 90 Days Qty: 540 3RF Jardiance 10 mg tablet 10 mg PO DAILY levothyroxine 50 mcg tablet 50 mcg PO DAILY Patient Comments: TAKE ONE TABLET BY MOUTH EVERY MORNING ON an EMPTY stomach mycophenolate mofetil 250 mg capsule 250 mg PO BID Qty: 120 2RF ezetimibe 10 MG tablet 10 mg PO DAILY metformin 500 MG tablet 500 mg PO BID insulin lispro protamin-lispro 100 unit/mL (75-25) insulin pen 0 unit SQ DIRECTED Rx Instructions: Per sliding scale budesonide 3 mg capsule,delayed,extend.release 9 mg PO HS Problem Reconciliation Problems Reviewed?: Yes Patient Discharge Instructions ACTIVITY: Continue current activity DIET: continue same diet Additional Instructions: PICC line care Patient Instructions: Septic Shock, DI for Kidney Infection, Peripherally Inserted Central Catheter, DI for Bacteremia-Adult Print Language: [place] Citizen Providers Primary Care Provider: Shirley Almanzar Admit Provider: Emir Berger Attending Provider: Shirley Almanzar
--- NOTE | 2024-09-01 16:17 | SW/DCPLANNER ---
Hospital follow up phone call x 2 no answer VM left.
== END 2024-08-28 14:40 | disposition home health service (06) | DRG 871 ==
LOC: ER 22:57 → 2ND 08-26 03:03
PROVIDERS: Emergency Medicine; Nurse Practitioner; Admitting Provider Family Medicine; Emergency Provider Emergency Medicine; PCP Family Medicine; Visit Provider Family Medicine
DX: A41.9 Sepsis, unspecified organism (principal); E43 Unspecified severe protein-calorie malnutrition; J96.01 Acute respiratory failure with hypoxia; R65.21 Severe sepsis with septic shock; N10 Acute pyelonephritis; K76.6 Portal hypertension; I24.89 Other forms of acute ischemic heart disease; J84.9 Interstitial pulmonary disease, unspecified; N17.9 Acute kidney failure, unspecified; E27.9 Disorder of adrenal gland, unspecified; K75.4 Autoimmune hepatitis; E83.110 Hereditary hemochromatosis; Z79.4 Long term (current) use of insulin; Z79.899 Other long term (current) drug therapy; I48.0 Paroxysmal atrial fibrillation; E11.9 Type 2 diabetes mellitus without complications; Z68.20 Body mass index [BMI] 20.0-20.9, adult; E87.6 Hypokalemia; Z87.891 Personal history of nicotine dependence; K75.89 Other specified inflammatory liver diseases; B95.61 Methicillin susceptible Staphylococcus aureus infection as the cause of diseases classified elsewhere
CPT/HCPCS: 36410; 36415; 36569; 71045; 71275; 74177; 80048; 80053; 81001; 82803; 82962; 83605; 83735; 84484; 85007; 85025; 85610; 85730; 86803; 87040; 87086; 87088; 87186; 87389; 87636; 93005; 93306; 94761; 99291; C1751; J0696; J1335; J1650; J3480; J7030; J7120; Q9967

== ENCOUNTER 2024-09-02 10:05 | Outpatient (CLI) | payer MEDICARE, SELFPAY ==
[2024-09-02 10:45] VITALS: PULSE 89; PULSE 92
[2024-09-02] MEDS: ALBUTEROL 0.083% 2.5 MG/3 ML NEB IH (10:45)
== END 2024-09-02 23:59 | disposition home or self-care (01) ==
LOC: RT 10:06
PROVIDERS: PCP Family Medicine; Visit Provider Internal Medicine Pulmonary Disease
DX: R06.09 Other forms of dyspnea (principal)
CPT/HCPCS: 94060; 94618; 94640; J7613

== ENCOUNTER 2024-09-04 14:03 | Outpatient (CLI) | payer MEDICARE, SELFPAY ==
[2024-09-04 14:31] LABS: Chloride 109 mmol/L (98-107); Potassium 3.8 mmoL/L (3.5-5.1); Sodium 137 mmol/L (136-145)
[2024-09-04 14:34] LABS: Blood Urea Nitrogen 25 mg/dl (9-20); Estimated Glomerular Filt Rate 59 ml/min (>60); GFR (African American) 72 ML/MIN (>60)
[2024-09-04 14:35] LABS: Anion Gap 10.8 mEq/L (5-15); Carbon Dioxide 21 mmol/L (22.0-30.0); Glucose 380 mg/dl (74-100)
== END 2024-09-04 23:59 | disposition home or self-care (01) ==
LOC: LAB.DROPOF 12-08 09:33
PROVIDERS: Visit Provider Family Medicine
DX: N10 Acute pyelonephritis (principal); R78.81 Bacteremia
CPT/HCPCS: 80048

== ENCOUNTER 2024-09-11 11:52 | Outpatient (CLI) | payer MEDICARE, SELFPAY ==
[2024-09-11 12:40] LABS: Chloride 106 mmol/L (98-107); Potassium 4.3 mmoL/L (3.5-5.1); Sodium 138 mmol/L (136-145)
[2024-09-11 12:42] LABS: Blood Urea Nitrogen 25 mg/dl (9-20); Estimated Glomerular Filt Rate 54 ml/min (>60); GFR (African American) 65 ML/MIN (>60)
[2024-09-11 12:43] LABS: Anion Gap 10.3 mEq/L (5-15); Carbon Dioxide 26 mmol/L (22.0-30.0); Glucose 370 mg/dl (74-100)
== END 2024-09-11 23:59 | disposition home or self-care (01) ==
LOC: LAB 11:53
PROVIDERS: PCP Family Medicine; Visit Provider Family Medicine
DX: N10 Acute pyelonephritis (principal); R78.81 Bacteremia
CPT/HCPCS: 80048

== ENCOUNTER 2024-09-16 12:42 | Outpatient (CLI) | payer MEDICARE, SELFPAY ==
[2024-09-16 12:58] LABS: Basophils % 1.9 % (0.1-2.0); Eosinophils # 0.1 K/mm3 (0.0-0.4); Eosinophils % 5.6 % (0.1-12.0); Hematocrit 46.5 % (42.0-52.0); Hemoglobin 15.7 g/dL (14.1-18.0); Lymphocytes # 0.6 K/mm3 (0.7-4.5); Lymphocytes % 27.4 % (10-50); Mean Corpuscular HGB Conc 33.7 g/dL (31.8-35.4); Mean Corpuscular Hemoglobin 31.6 pg (27.0-31.2); Mean Corpuscular Volume 93.5 fl (80-94); Mean Platelet Volume 7.6 fl (7.4-10.4); Monocytes # 0.1 K/mm3 (0.1-1.0); Monocytes % 5.7 % (1.7-9.3); Neutrophils # 1.4 K/mm3 (1.8-7.8); Neutrophils % 59.4 % (37.0-80.0); Platelet Count 247 K/mm3 (142-424); Red Blood Count 4.97 M/mm3 (4.60-6.20); Red Cell Distribution Width 15.8 % (11.5-17.5); White Blood Count 2.3 K/mm3 (4.8-10.8)
[2024-09-18 19:09] LABS: QuantiFERON-TB Gold Plus Negative (Negative)
== END 2024-09-16 23:59 | disposition home or self-care (01) ==
LOC: LAB 12:42
PROVIDERS: PCP Family Medicine; Visit Provider Internal Medicine Pulmonary Disease
DX: D84.9 Immunodeficiency, unspecified (principal); J45.909 Unspecified asthma, uncomplicated
CPT/HCPCS: 36415; 85025; 86480

== ENCOUNTER 2024-09-18 10:15 | Outpatient (CLI) | payer MEDICARE, SELFPAY ==
--- OUTSIDE RECORDS SUMMARY | 2024-09-18 10:19 | XMS_ITS | Encounter Summary ---
Author Organization [facility] Address [address] [place] [address] Care Team Providers Care Termite Exterminator Name Role Phone Rocky Almanzar MD Primary Care Provider [phone] Encounter Details Date Type Department Care Team (Latest Contact Info) Description 07/01/2024 Travel Social History Tobacco Use Types Packs/Day Years Used Date Smoking Tobacco: Former Cigarettes 1.5 15 0 11/05/1989 - 11/05/2004 Smokeless Tobacco: Never Alcohol Use Standard Drinks/Week Comments Yes 1 (1 standard drink = 0.6 oz pure alcohol) Alcoholic Drinks/day: Consumes alcohol occasionally Sex and Gender Information Value Date Recorded Sex Assigned at Not on file Legal Sex Male 7:34 PM EDT Gender Identity Not on file Sexual Orientation Not on file documented as of this encounter Plan of Treatment Upcoming Encounters Date Type Department Care Team (Late st Contact Info) Description 12/16/2024 12:00 PM EST Office Visit [facility] Endocrinology [address], [address] [place] [address] Jason Romero MD [address] [place] [address] 12/30/2024 1:30 PM EST Office Visit [facility] [address], [address] [place] [phone] Vivian Macias S, OD [address] [place] [id number] documented as of this encounter Visit Diagnoses Not on filedocumented in this encounter Additional Health Concerns Infection Onset Date Last Indicated Resolved Time MRSA 03/30/2021 03/30/2021 Assessment Noted Time A fall risk assessment has been complete d for the patient 07/01/2024 9:34 AM EDT A Body Mass Index follow-up plan has been documented for the patient 07/02/2024 1:09 PM EDT documented as of this encounter Care Teams Termite Exterminator Relationship Specialty Start Date End Date Rocky Almanzar MD [address] [place] [address] PCP - General 03/18/21 documented as of this encounter
--- OUTSIDE RECORDS SUMMARY | 2024-09-18 10:19 | XMS_ITS | Encounter Summary ---
Author Organization [facility] Address [address] [place] [address] Care Team Providers Care Canal Tender Name Role Phone Rocky Almanzar MD Primary Care Provider [phone] Encounter Details Date Type Department Care Team (Late st Contact Info) Description 07/01/2024 10:30 AM EDT Ancillary Procedure [facility] [address], [address] [place] [phone] Social History Tobacco Use Types Packs/Day Years [...] Description 12/16/2024 12:00 PM EST Office Visit [facility] Endocrinology [address], [address] [place] [address] Jason Romero MD [address] [place] [phone] 12/30/2024 1:30 PM EST Office Visit [facility] [address], [address] [place] [address] Vivian Macias S, OD [address] [place] [address] documented as of this encounter Procedures Procedure Name Priority Date/Time Associated Diagnosis Comments OCT, RETINA - OU - BOTH EYES Routine 07/01/2024 10:28 AM EDT Epiretinal membrane (ERM) of both eyes documented in this encounter Results * OCT, Retina - OU - Both Eyes (07/01/2024 10:28 AM EDT) Anatomical Region Laterality Modality Head Optical Coherenc e Tomography Narrative 07/02/2024 1:05 PM EDT Right Eye Quality was good. Scan locations included subfoveal. Findings include abnormal foveal contour, epiretinal membrane. Left Eye Quality was good. Findings include abnormal foveal contour, epiretinal membrane. Notes right eye (OD): ??epiretinal membrane (ERM) with mild foveal contour change, loss of some outer retinal layers centrally left eye (OS): ??epiretinal membrane (ERM), foveal contour change, overall normal foveal depression Vivian Quinteros Colleen OD OPHTH TOMOGRAPHY Final Result documented in this encounter Visit Diagnoses Not on filedocumented [...] documented as of this encounter Care Teams Canal Tender Relationship Specialty Start Date End Date Rocky Almanzar MD [address] [place] [address] PCP - General 03/18/21 documented as of this encounter
--- OUTSIDE RECORDS SUMMARY | 2024-09-18 10:19 | XMS_ITS | Encounter Summary ---
Author Organization [facility] Address [address] [place] [address] Care Team Providers Care Corporate Administrator Name Role Phone Rocky Almanzar MD Primary Care Provider [phone] Reason for Visit * Reason Comments Hearing Loss Encounter Details Date Type Department Care Team (Late st Contact Info) Description 12/27/2023 12:30 PM EST Office Visit [facility] [address] [place] [phone] Lottie Lund, AuD [address] [place] [address] Sirisha Cooley, AuD [address] [place] [address] Sensorineural hearing loss (SNHL) of both ears (Primary Dx) Social History Tobacco Use Types Packs/Day Years [...] on file documented as of this encounter Miscellaneous Notes * Progress Notes - Lottie Lund, AuD - 12/27/2023 12:30 PM EST Referring Provider: César Griffin MD COCHLEAR IMPLANT MAPPING Patient Status: Mr. Trevino was seen for his annual cochlear implant activation mapping appointment.I was accompanied by my colleague Dr. Sirisha Cooley. Upon entering the clinic, I noticed Jose Luis has continued to lose weight. He said that he is working with multiple physicians to try to figure out the source of his weight loss and fatigue. He reports that he has recently noticed a significant lack of clarity. He is also experiencing significant intermittency. The right ear processor will kick off and he will lose sound in that ear. Sometimes it lasts 10 seconds sometimes it lasts for over 30 seconds in which case he has to take it off his head remove the battery put the battery back on and then it may or may not restart. He continues to try to participate in meetings but sometimes struggles depending on who is talking. Condition of Implant sight: Mr. Trevino's cochlear implant incisions and magnet sites are within normal limits with no redness or edema. Saddle Maker: Data Impact Ear: RE: Surgery Date: 06/14/2017-Revision 08/11/2015-Original Internal Device: [id number] Advantage/HiFocus 1J - [id number] Primary External Device: Lizabeth Q90 Fit Date: 07/11/2017 Magnet strength: 3 Cord length: 3.5 Battery: Rechargeable Tyesha Exp: 07/10/2022 LE: Surgery Date: 04/07/2020 Internal Device: HiRes [id number]/HiFocus SlimJ - [id number] Primary External Device: Lizabeth Q90 Fit Date: 04/28/2020 Magnet strength: 3 Cord length: 3.5 Battery: Rechargeable Tyesha Exp:04/27/2025 Equipment Check: Within normal limits Mapping Results: I connected his bilateral cochlear implant processor to the computer and ran impedances with good result. We measured his C levels across the frequency range using loudness scaling. Significant changes were made to his right side cochlear implant processor but his left ear CI remained fairly stable. We saved his new programs in to his processors. Program 1 is his all around program and program 2 is stereo zoom. ASSESSMENT/PLAN I will submit for an upgrade for his right side processor. Jose Luis will return when he receives his new upgraded processor or in 12 months or prn. documented in this encounter Plan of Treatment Upcoming Encounters Date Type Department Care Team (Late st Contact Info) Description 12/16/2024 12:00 PM EST Office Visit [facility] Endocrinology [address], [address] [place] [phone] Jason Romero MD [address] [place] [phone] 12/30/2024 1:30 PM EST Office Visit [facility] [address], [address] [place] [address] Vivian Macias S, OD [address] [place] [address] Scheduled Orders Name Type Priority Associated Diagnoses Orde r Schedule Cochlear Implant Mapping 60 Audiology Routine Sensorineural hearing loss (SNHL) of both ears Expected: 12/31/2024, Expires: 12/31/2024 documented as of this encounter Visit Diagnoses Diagnosis Sensorineural hearing loss (SNHL) of both ears- Primary documented in this encounter Additional Health Concerns Infection Onset Date Last Indicated Resolved Time MRSA 03/30/2021 03/30/2021 Assessment Noted Time A fall risk assessment has been complete d for the patient 01/24/2023 9:21 AM EDT A Body Mass Index follow-up plan has been documented for the patient 12/31/2023 9:51 AM EST documented as of this encounter Care Teams Corporate Administrator Relationship Specialty Start Date End Date Rocky Almanzar MD [address] [place] [address] PCP - General 03/18/21 documented as of this encounter
--- OUTSIDE RECORDS SUMMARY | 2024-09-18 10:19 | XMS_ITS | Encounter Summary ---
Author Organization [facility] Address [address] [place] [address] Care Team Providers Care Handstitching Machine Collar Feller Name Role Phone Rocky Almanzar MD Primary Care Provider [phone] Reason for Visit * Reason Comments Med Refill Encounter Details Date Type Department Care Team (Late st Contact Info) Description 12/25/2023 Refill [facility] Endocrinology [address] [place] [address] Jason Romero MD [address] [place] [address] Type 2 diabetes mellitus with other specified complication, with long-term current use of insulin ([facility]) Social History Tobacco Use Types Packs/Day Years [...] as of this encounter Miscellaneous Notes * Telephone Encounter - Jac Ch, PharmD - 12/25/2023 10:46 AM EST Per protocol, 1 medication(s), metformin, has been approved for 60 day supply with 5 refill(s) to Clinic pharmacy. documented in this encounter Plan of Treatment Upcoming Encounters Date Type Department Care Team (Late st Contact Info) Description 12/16/2024 12:00 PM EST Office Visit [facility] Endocrinology [address], [address] [place] [address] Jason Romero MD [address] [place] [address] 12/30/2024 1:30 PM EST Office Visit [facility] [address], [address] [place] [address] Vivian Macias S, OD [address] [place] [address] documented as of this encounter Visit Diagnoses Diagnosis Type 2 diabetes mellitus with other specified complication, with long-term current use of insulin (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
--- OUTSIDE RECORDS SUMMARY | 2024-09-18 10:19 | XMS_ITS | Encounter Summary ---
Author Organization [facility] Address [address] [place] [address] Care Team Providers Care Pet Technologist Name Role Phone Rocky Almanzar MD Primary Care Provider [phone] Encounter Details Date Type Department Care Team (Latest Contact Info) Description 07/07/2024 Travel Social History Tobacco Use Types Packs/Day [...] Description 12/16/2024 12:00 PM EST Office Visit [facility] Endocrinology [address], [address] [place] [address] Jason Romero MD [address] [place] [address] 12/30/2024 1:30 PM EST Office Visit [facility] [address], [address] [place] [address] Vivian Macias S, OD [address] [place] [address] documented as of this encounter Visit Diagnoses [...] documented as of this encounter Care Teams Pet Technologist Relationship Specialty Start Date End Date Rocky Almanzar MD [address] [place] [address] PCP - General 03/18/21 documented as of this encounter
--- OUTSIDE RECORDS SUMMARY | 2024-09-18 10:19 | XMS_ITS | Encounter Summary ---
Author Organization [facility] Address [address] [place] [address] Care Team Providers Care Ultrasound Manager Name Role Phone Rocky Almanzar MD Primary Care Provider [phone] Encounter Details Date Type Department Care Team (Latest Contact Info) Description 07/14/2024 Travel Social History Tobacco Use Types Packs/Day [...] Description 12/16/2024 12:00 PM EST Office Visit [facility] Endocrinology [address], [address] [place] [address] Jason Romero MD [address] [place] [address] 12/30/2024 1:30 PM EST Office Visit [facility] [address], [address] [place] [address] Vivian Macias S, OD [address] [place] [phone] documented as of this encounter Visit Diagnoses [...] documented as of this encounter Care Teams Ultrasound Manager Relationship Specialty Start Date End Date Rocky Almanzar MD [address] [place] [address] PCP - General 03/18/21 documented as of this encounter
--- OUTSIDE RECORDS SUMMARY | 2024-09-18 10:19 | XMS_ITS | Encounter Summary ---
Author Organization [facility] Address [address] [place] [address] Care Team Providers Care Collection Technician Name Role Phone Rocky Almanzar MD Primary Care Provider [phone] Encounter Details Date Type Department Care Team (Latest Contact Info) Description 05/23/2024 Travel Social History Tobacco Use Types Packs/Day [...] 12/16/2024 12:00 PM EST Office Visit [facility] Endocrinology [address], [address] [place] [address] Jason Romero MD [address] [place] [address] 12/30/2024 1:30 PM EST Office Visit [facility] [address], [address] [place] [address] Vivian Macias S, OD [address] [place] [address] documented as of this encounter Visit Diagnoses Not on filedocumented in this encounter Additional Health Concerns Infection Onset Date Last Indicated Resolved Time 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
--- OUTSIDE RECORDS SUMMARY | 2024-09-18 10:19 | XMS_ITS | Clinical Summary ---
Author Organization [facility] Address [address] [place] [address] Care Team Providers Care Planting Machine Operator Name Role Phone Rocky Almanzar MD Primary Care Provider [phone] Allergies Active Allergy Reactions Criticality Noted Date Comments Cephalexin Itching Medium 10/17/2016 Possible allergy, patient unsure Mixed Ragweed Unknown - Patient st ates they do not know rxn details Low 07/01/2024 Medications Aspirin Buf,CaCarb-MgCa rb-MgO, 81 MG tablet 1 tab(s) orally once a day Active cholecalciferol (Vitamin D-3) 25 MCG (1000 UT) tablet 1 tab(s) orally once a day Active ezetimibe (Zetia) 10 MG tablet Active pravastatin (Pravachol) 20 MG tablet Take 1 tablet (20 mg) by mouth 1 (one) time each day. 2 Active insulin lispro protamine-insul in lispro (HumaLOG MIX 75/25 KWIKPEN) (75-25) 100 UNIT/ML injection pen INJECT 26 UNITS THREE TIMES A DAY. TITRATE DIRECTED TO MAXIMUM DAILY DOSE OF 100 UNITS. 90 mL 3 3 Active ipratropium-alb uterol (Duo-Neb) 0.5-2.5 mg/3 mL nebulizer solution Take 3 mL by nebulization 3 (three) times a day. Active Jardiance 10 MGIndications:T ype 2 diabetes mellitus with hyperglycemia, with long-term current use of insulin ([facility]) Take 1 tablet (10 mg) by mouth 1 (one) time each day. 90 tablet 3 4 05/23/20 25 Active levothyroxine (Synthroid, Levoxyl) 50 MCG tablet Take 1 tablet (50 mcg) by mouth 1 (one) time each day before breakfast. 4 Active metFORMIN (Glucophage) 500 MG tabletIndicatio ns:Type 2 diabetes mellitus with other specified complication, with long-term current use of insulin (CMS/HCC) TAKE ONE TABLET BY MOUTH TWICE DAILY --TAKE WITH FOOD-- 60 tablet 5 4 Active Active Problems Problem Noted Date Diagnosed Date Atrial flutter 07/01/[address] 07/01/2024 Diastolic dysfunction 07/01/2024 Dyspnea on exertion 07/01/2024 Hemochromatosis 07/01/2024 Hypertension 07/01/2024 ILD (interstitial lung disease) 07/01/2024 Hypertriglyceridemia 08/23/2021 Exercise hypoxemia 11/12/2019 Restrictive pattern present on pulmonary functio n testing 11/12/2019 Pleural thickening 08/28/2019 Bacterial pneumonia 06/17/2019 Conjunctivitis, acute 06/02/2019 Astigmatism of both eyes 04/30/2019 Bilateral myopia 04/30/2019 Bilateral presbyopia 04/30/2019 Diabetes mellitus type 2 without retinopathy Epiretinal membrane (ERM) of both eyes 9 Nuclear sclerosis of both eyes 04/30/2019 Afib 03/06/2019 Palpitations 03/06/2019 Liver lesion 12/05/2018 Abnormal US (ultrasound) of abdomen 06/06/2018 Pancreatic lesion 06/05/2018 Adenomatous colon polyp 09/12/2017 Iron deficiency 01/30/2017 Leukopenia 10/17/2016 DYESI positive 09/12/2016 Chronic fatigue 09/12/2016 Hypothyroidism 09/12/2016 Infection or inflammatory re action due to other internal prosthetic device, implant, or graft 08/15/2016 Wound infection after surgery 02/22/2016 Bilateral sensorineural hearing loss 02/05/2015 Encounters Date Type Department Care Team Description 07/14/2024 7:52 AM EDT - 07/14/2024 11:59 PM EDT Hospital Encounter [facility] [address] [place] [address] Hemochromatosis, unspecified Discharge Disposition: Home or Self Care 07/14/2024 Travel 07/07/2024 Travel 07/02/2024 Refill [facility] Endocrinology [address], [address] [place] [address] Jason Romero MD Type 2 diabetes mellitus with other specified complication, with long-term current use of insulin (CMS/HCC) 07/01/2024 10:30 AM EDT Ancillary Procedure [facility] [address], [address] [place] [address] 07/01/2024 9:00 AM EDT Office Visit [facility] [address], [address] [place] [address] Vivian Macias, OD Diabetes mellitus type 2 without retinopathy (CMS/HCC) (Primary Dx); Epiretinal membrane (ERM) of both eyes; Pseudophakia, both eyes; Presbyopia of both eyes 07/01/2024 Travel 06/24/2024 1:00 PM EDT Education [facility] [address], [address] [place] [address] Vivian Nielsen, RD Type 2 diabetes mellitus with hyperglycemia, with long-term current use of insulin (CMS/HCC) 06/24/2024 Travel from Last 3 Months Immunizations Name Administration Dates Next Due Hep A, Adult 03/03/2013,07/31/2012 Influenza Vaccine, Quadrivalent, Adjuvanted 10/05,09/22/2021 Influenza, Unspecified 09/22/2021 Influenza, high-dose, quadrivalent 08/16/2020 Pneumococcal Polysaccharide PPV23 08/13/2018 Rsvpref, Recombinant, Protein Subunit, Adjuvent 11/02/2023 Family History Medical History Relation Name Comments COPD Father Diabetes Father Cancer Mother Aretha Ovarian cancer Mother Aretha Relation Name Status Comments Father Mother Aretha Social History Tobacco Use Types Packs/Day Years Used Date Smoking Tobacco: Former Cigarettes 1.5 15 0 11/05/1989 - 11/05/2004 Smokeless Tobacco: Never Tobacco Cessation:Counseling Given: Not Answered Alcohol Use Standard Drinks/Week Comments Yes 1 (1 standard drink = 0.6 oz pure alcohol) Alcoholic Drinks/day: Consumes alcohol occasionally Sex and Gender Information Value Date Recorded Sex Assigned at Not on file Legal Sex Male 7:34 PM EDT Gender Identity Not on file Sexual Orientation Not on file Last Filed Vital Signs Vital Sign Reading Time Taken Comments Blood Pressure 97/62 05/23/2024 10:39 AM EDT Pulse 105 05/23/2024 10:39 AM EDT Temperature 36.9 ??C (98.4 ??F) 01/13/2021 1:35 PM ES T Respiratory Rate 16 06/17/2019 3:53 PM EDT Oxygen Saturation 94% 11/22/2023 11:20 AM EST Inhaled Oxygen Concentration - - Weight 52.3 kg (115 lb 4.8 oz) 05/23/2024 10:39 AM EDT Height 165.1 cm (5' 5 ) 05/23/2024 10:39 AM EDT Body Mass Index 19.19 05/23/2024 10:39 AM EDT Plan of Treatment Upcoming Encounters Date Type Department Care Team (Late st Contact Info) Description 12/16/2024 12:00 PM EST Office Visit [facility] Endocrinology [address], [address] [place] [address] Jason Romero MD [address] [place] [address] 12/30/2024 1:30 PM EST Office Visit [facility] [address], [address] [place] [address] Vivian Macias S, OD [address] [place] [address] Health Maintenance Due Date Last Done Comments [facility]-Depression Screening 1950 [facility]-Medicare Annual Wellness (AWV) 1950 [facility]-/Child/Adol SDOH Screenings 1950 Diabetes: Dental Exam 1961 [facility]- SDOH Screenings 1969 [facility]-Adult SDOH Screenings 1969 [facility]-DTaP,Tdap,and Td Vaccines (1 - Tdap) 1970 [facility]-Zoster Vaccines (1 of 2) 1970 CT Colonography 1996 FIT-DNA 1996 FIT 1996 FOBT 1996 Sigmoidoscopy 1996 [facility]-Abdominal Aortic Aneurysm (AAA) Screening 2016 [facility]-Pneumococcal Vaccine: 65+ Years (2 of 2 - PCV) 08/13/2019 08/13/2018 [id number] Vaccine ( season) 2024 10/01/2023, 09/20/2022, 09/28/2021, Additional history exists [facility]-Influenza Vaccine (#1) 07/06/202410/16, 09/22/2021, 09/22/2021, Additional history exists [facility]-Diabetes: Hemoglobin A1C 11/20/2024, 11/22/2023, 05/18/2023, Additional history exists Colonoscopy 08/03/2027 08/03/2017 [facility]-Colorectal Cancer Screening 08/03/2027 [facility]-Hepatitis A Vaccines Completed 03/03/2013, 07/07 [facility]-Hepatitis C Screening Completed 08/15/2016 [facility]-RSV Vaccine: 60+ Years or Completed 11/02/2023 [facility]-HIB Vaccines Aged Out No longer e ligible based on patient's age to complete this topic [facility]-HPV Vaccines Aged Out No longer e ligible based on patient's age to complete this topic [facility]-IPV Vaccines Aged Out No longer e ligible based on patient's age to complete this topic [facility]-Rotavirus Vaccines Aged Out No lo nger eligible based on patient's age to complete this topic Medical Devices Implanted Type Area Household Chores Device Identifier Shelf Expiration Date Model / Serial / Lot Roseline 90k Advantage Ci Hifocus 1j Electrode--06/05 Implanted:06/05 by Ky Del Rio MD (Quantity not on file) Cochlear Left: Ear BlockAvenue [id number] / [id number] / Description:Roseline 90K Advant age CI HiFocus 1J electrode--cochlear implant by Dr. Del Rio at [facility] on 06/21/2017, operative note in Epic. LEFT EAR. Roseline ULTRA 3D Cochlear implant REF: [id number] Serial number: [id number] Procedures Procedure Name Priority Date/Time Associated Diagnosis Comments IMAGING MRI PROCEDURE NOT PERFORMED Routine 07/14/2024 9:34 AM EDT Hemochromatosis, unspecified OCT, RETINA - OU - BOTH EYES Routine 07/01/2024 10:28 AM EDT Epiretinal membrane (ERM) of both eyes POCT GLYCOSYLATED HEMOGLOBIN (HGB A1C) Routine 05/23/2024 10:49 AM EDT Type 2 diabetes mellitus with hyperglycemia, with long-term current use of insulin (CMS/HCC) COLONOSCOPY 08/03/2017 HEPATITIS C ANTIBODY W/REFLEX TO HCV QUANT PCR Routine 08/15/2016 10:05 AM EDT from Last 3 Months or Most Recently Relevant to Health Maintenance Results * Imaging MRI Procedure Not Performed (07/14/2024 9:34 AM EDT) Narrative IMAGING - 07/14/2024 9:34 AM EDT This procedure was not performed. Procedure: MR CardiacMorphology Reason: Non-Compatible Device Eusebio Coates MD IM MRI PROCEDURES Final Result IMAGING * OCT, Retina - OU - Both [...] contour change, overall normal foveal depression Vivian Macias OD OPHTH TOMOGRAPHY Final Result * POCT glycosylated hemoglobin (Hb A1C) (05/23/2024 10:49 AM EDT) POCT Hemoglobin A1C 9.5 <5.7% Non-Diabe tic [facility] Kit Lot Number [id number] [facility] Kit Expiration Date 03/04/2026 HEALTH[facility] Blood Venous blood specimen / Unknown 05/23/2024 10:49 AM EDT Jason Romero MD POINT OF CARE TEST ENTER/ED IT ORDERABLES Final Result [facility] [address] [place] [address] * COLONOSCOPY (08/03/2017) Anatomical Region Laterality Modality Endoscopy Narrative 08/03/2017 Ordered by an unspecified provider. Elvis Groves MD GI PROCEDURE ORDERABLES F inal Result * Hepatitis C Antibody (08/15/2016 10:05 AM EDT) Hepatitis C Antibody NEGATIVE Reference Range: Negative [facility] 08/15/2016 10:0 5 AM EDT 08/15/2016 11:43 AM EDT Pavan Joseph MD LAB BLOOD ORDERABLES Final Re sult [facility] from Last 3 Months or Most Recently Relevant to Health Maintenance Additional Health Concerns Infection Onset Date Last Indicated MRSA 03/30/2021 03/30/2021 Insurance [facility] [place] [address] EYEMED Care Teams Planting Machine Operator Relationship Specialty Start Date End Date Rocky Almanzar MD [address] [place] [address] PCP - General 03/18/21
--- OUTSIDE RECORDS SUMMARY | 2024-09-18 10:19 | XMS_ITS | Encounter Summary ---
Author Organization [facility] Address [address] [place] [address] Care Team Providers Care Pipe Fitter Name Role Phone Rocky Almanzar MD Primary Care Provider [phone] Encounter Details Date Type Department Care Team (Latest Contact Info) Description 11/22/2023 Travel Social History Tobacco Use Types Packs/Day [...] Description 12/16/2024 12:00 PM EST Office Visit [facility] Endocrinology [address], [address] [place] [address] Jason Romero MD [address] [place] [address] 12/30/2024 1:30 PM EST Office Visit [facility] Center [address], [address] [place] [address] Vivian Macias S, OD [address] [place] [address] documented as of this encounter Visit Diagnoses [...] documented as of this encounter Care Teams Pipe Fitter Relationship Specialty Start Date End Date Rocky Almanzar MD [address] [place] [address] PCP - General 03/18/21 documented as of this encounter
--- OUTSIDE RECORDS SUMMARY | 2024-09-18 10:19 | XMS_ITS | Encounter Summary ---
Author Organization [facility] Address [address] [place] [address] Care Team Providers Care Medical Bill Processor Name Role Phone Rocky Almanzar MD Primary Care Provider Encounter Details Date Type Department Care Team (Late st Contact Info) Description 06/02/2024 Telephone [facility] Endocrinology [address] [place] [address] Jason Romero MD [address] [place] [address] Social History Tobacco Use Types Packs/Day Years [...] encounter Miscellaneous Notes * Telephone Encounter - MARYLIN DALAL - 06/02/2024 3:50 PM EDT Pt would like to get scheduled for [facility] training [phone] documented in this encounter Plan of Treatment Upcoming Encounters Date Type Department Care Team (Late st Contact Info) Description 12/16/2024 12:00 PM EST Office Visit [facility] Endocrinology [address], [address] [place] [address] Jason Romero MD [address] [place] [address] 12/30/2024 1:30 PM EST Office Visit [facility] [address], [address] [place] [address] Vivian Macias S, OD [address] [place] [address] documented as of this encounter [...] documented as of this encounter Care Teams Medical Bill Processor Relationship Specialty Start Date End Date Rocky Almanzar MD [address] [place] [address] PCP - General 03/18/21 documented as of this encounter
--- OUTSIDE RECORDS SUMMARY | 2024-09-18 10:19 | XMS_ITS | Encounter Summary ---
Author Organization [facility] Address [address] [place] [address] Care Team Providers Care Bean Picker Machine Operator Name Role Phone Rocky Almanzar MD Primary Care Provider [phone] Encounter Details Date Type Department Care Team (Latest Contact Info) Description 05/23/2024 12:20 PM EDT Clinical Support [address] [phone] Type 2 diabetes mellitus with hyperglycemia, with long-term current use of insulin ([facility]); Weight loss Social History Tobacco Use Types Packs/Day Years [...] as of this encounter Miscellaneous Notes * Result Encounter Note - Jason Romero MD - 05/23/2024 12:20 PM EDT I sent him a letter to discuss elevated alkaline phosphatase with GI. I called him but could not reach to him. Thanks * Result Encounter Note - Jason Romero MD - 05/23/2024 12:20 PM EDT I signed and sent a letter on 05/30/2024. Thanks documented in this encounter Plan of Treatment Upcoming Encounters Date Type Department Care Team (Late st Contact Info) Description 12/16/2024 12:00 PM EST Office Visit [facility] [address], [address] [place] [phone] Jason Romero MD [address] [facility] [address] [place] [address] 12/30/2024 1:30 PM EST Office Visit [facility] [address], [address] [place] [phone] Vivian Macias S, OD [address] [place] [address] documented as of this encounter Procedures Procedure Name Priority Date/Time Associated Diagnosis Comments ALBUMIN, SERUM Routine 05/23/2024 12:16 PM EDT Type 2 diabetes mellitus with hyperglycemia, with long-term current use of insulin ([facility]) Weight loss TESTOSTERONE, FREE AND TOTAL (ORDERABLE) Routine 05/23/2024 12:16 PM EDT Type 2 diabetes mellitus with hyperglycemia, with long-term current use of insulin ([facility]) Weight loss INSULIN-LIKE GROWTH FACTOR 1 (IGF-1) WITH CALCULATED Z-SCORE (SO) Routine 05/23/2024 12:16 PM EDT Type 2 diabetes mellitus with hyperglycemia, with long-term current use of insulin ([facility]) Weight loss FOLLICLE-STIMULATING HORMONE (FSH), PEDIATRIC (ENDOCRINE SCIENCES) Routine 05/23/2024 12:16 PM EDT Type 2 diabetes mellitus with hyperglycemia, with long-term current use of insulin ([facility]) Weight loss TESTOSTERONE, FREE AND TOTAL Routine 05/23/2024 12:16 PM EDT Type 2 diabetes mellitus with hyperglycemia, with long-term current use of insulin ([facility]) Weight loss PROLACTIN, SERUM Routine 05/23/2024 12:1 6 PM EDT Type 2 diabetes mellitus with hyperglycemia, with long-term current use of insulin ([facility]) Weight loss HUMAN GROWTH HORMONE 0 MINUTES Routine 05/23/2024 12:16 PM EDT Type 2 diabetes mellitus with hyperglycemia, with long-term current use of insulin ([facility]) Weight loss ADRENOCORTICOTROPIC HORMONE (ACTH) Routine 05/23/2024 12:16 PM EDT Type 2 diabetes mellitus with hyperglycemia, with long-term current use of insulin ([facility]) Weight loss TSH Routine 05/23/2024 12:16 PM EDT Type 2 diabetes mellitus with hyperglycemia, with long-term current use of insulin ([facility]) Weight loss LUTEINIZING HORMONE, SERUM Routine 05/23 12:16 PM EDT Type 2 diabetes mellitus with hyperglycemia, with long-term current use of insulin ([facility]) Weight loss CORTISOL Routine 05/23/2024 12:16 PM EDT Type 2 diabetes mellitus with hyperglycemia, with long-term current use of insulin ([facility]) Weight loss COMPREHENSIVE METABOLIC PANEL, PLASMA Routine 05/23/2024 12:16 PM EDT Type 2 diabetes mellitus with hyperglycemia, with long-term current use of insulin ([facility]) Weight loss documented in this encounter Results * Albumin, Serum (05/23/2024 12:16 PM EDT) Blood Venous blood specimen / Unknown Venipuncture / Unknown 05/23/2024 12:16 PM EDT 05/23/2024 12:17 PM EDT Jason Romero MD LAB BLOOD ORDERABLES Final Result Performing Organization Address City/[facility]/ZIP Co de Phone Number [facility] [address] [place] [address] * (ABNORMAL) Testosterone, Free and Total (05/23/2024 12:16 PM EDT) Testosterone Total 264.6 264.0 - 916.0 ng/dL 05/27/2024 1:40 PM EDT [facility] Sex Hormone Binding Globulin 66.0 11.2 - 78.1 nmol/L 05/27/2024 1:40 PM EDT [facility] Free Testosterone - Calculated (pg/mL) 33.3(L) 52.0 - 280.0 pg/mL 05/27/2024 1:40 PM EDT [facility] Free Testosterone (%) 1.3 % 05/27/2024 1:40 PM EDT [facility] Albumin 3.7 3.5 - 5.0 g/dL 05/27/2024 1:40 PM EDT [facility] Blood Venous blood specimen / Unknown Venipuncture / Unknown 05/23/2024 12:16 PM EDT 05/23/2024 12:17 PM EDT Narrative [facility] - 05/27/2024 1:40 PM EDT Method: o SHBG: Electrochemiluminescence immunoassay o Total Testosterone: LC-MS/MS o Free T: Calculation Free testosterone concentration is calculated using total testosterone (measured by mass spectrometry) and the binding constants between testosterone, sex hormone-binding globulin (SHBG) and albumin. This test was developed and its performance characteristics determined by [facility]. It has not been cleared or approved by the FDA. The laboratory is regulated under CLIA as qualified to perform high-complexity testing. This test is used for clinical purposes. Jason Romero MD LAB BLOOD ORDERABLES Final Result Performing Organization Address City/[facility]/ZIP Co de Phone Number [facility] [address] [place] [address] * (ABNORMAL) Comprehensive metabolic panel (05/23/2024 12:16 PM EDT) Glucose, Plasma 206(H) 74 - 99 mg/dL 05/23/2024 2:31 PM EDT [facility] BUN, Plasma 27(H) 8 - 23 mg/dL 05/23/2024 2:31 PM EDT [facility] Creatinine, Plasma 1.16 0.80 - 1.30 mg/dL 05/23/2024 2:31 PM EDT [facility] BUN/Creatinine Ratio 23 05/23/2024 2:31 PM EDT [facility] Sodium, Plasma 138 136 - 145 mmol/L 05/23/2024 2:31 PM EDT [facility] Potassium, Plasma 4.5 3.7 - 4.8 mmol/L 05/23/2024 2:31 PM EDT [facility] Chloride, Plasma 102 97 - 107 mmol/L 05/23/2024 2:31 PM EDT [facility] CO2, Plasma 23 22 - 29 mmol/L 05/23/2024 2:31 PM EDT [facility] Anion Gap 13 6 - 16 mmol/L 05/23/2024 2:31 PM EDT [facility] Total Calcium, Plasma 9.5 8.9 - 10.2 mg/dL 05/23/2024 2:31 PM EDT [facility] Total Protein 7.2 6.3 - 7.9 g/dL 05/23/2024 2:31 PM EDT [facility] Albumin, Plasma 3.6 3.5 - 5.2 g/dL 05/23/2024 2:31 PM EDT [facility] AST, Plasma 30 10 - 50 U/L 05/23/2024 2:31 PM EDT [facility] Comment:Hemolyzed, result ma y be falsely increased. ALT, Plasma 37 10 - 50 U/L 05/23/2024 2:31 PM EDT [facility] Alkaline Phosphatase, Plasma 196(H) 40 - 115 U/L 05/23/2024 2:31 PM EDT [facility] Total Bilirubin, Plasma 0.8 0.2 - 1.1 mg/dL 05/23/2024 2:31 PM EDT [facility] eGFRcr 66.5 mL/min/1.7 3m*2 05/23/2024 2:31 PM EDT [facility] Comment:Reported eGFRcr in m L/min/1.73m2 is based the CKD-EPI 2020 equation that does not use a race coefficient. Blood Venous blood specimen / Unknown Venipuncture / Unknown 05/23/2024 12:16 PM EDT 05/23/2024 12:17 PM EDT Jason Romero MD LAB BLOOD ORDERABLES Final Result Performing Organization Address City/[facility]/ZIP Co de Phone Number [facility] [address] [place] [address] * TSH (05/23/2024 12:16 PM EDT) Thyroid Stimulating Hormone, Plasma 3.34 0.40 - 4.20 uIU/mL 05/23/2024 2:31 PM EDT [facility] Blood Venous blood specimen / Unknown Venipuncture / Unknown 05/23/2024 12:16 PM EDT 05/23/2024 12:17 PM EDT Jason Romero MD LAB BLOOD ORDERABLES Final Result Performing Organization Address [facility] Co de Phone Number [facility] [address] [place] [address] * (ABNORMAL) Prolactin (05/23/2024 12:16 PM EDT) Prolactin, Serum 19.0(H) 3.4 - 15.2 ng/mL 05/23/2024 2:55 PM EDT [facility] Blood Venous blood specimen / Unknown Venipuncture / Unknown 05/23/2024 12:16 PM EDT 05/23/2024 12:17 PM EDT Narrative [facility] - 05/23/2024 2:55 PM EDT Performed by [employer]ona electrochemiluminescent immunoassay which is traceable to the Prolactin 3rd IRP (WHO 84/500). Results obtained with different test methods or kits cannot be used interchangeably. Jason Romero MD LAB BLOOD ORDERABLES Final Result Performing Organization Address [facility] Co de Phone Number [facility] [address] [place] [address] * Insulin-Like Growth Factor 1 W (05/23/2024 12:16 PM EDT) IGF 1 (Insulin-Like Growth Factor 1) 90 24 - 236 ng/mL 05/27/2024 4:48 PM EDT [facility] IGF 1 Z Score Calculation -0.3 05/27/2024 4:48 PM EDT [facility] ([facility]) Blood Venous blood specimen / Unknown Venipuncture / Unknown 05/23/2024 12:16 PM EDT 05/23/2024 12:17 PM EDT Narrative [facility] ([facility]) - 05/27/2024 4:48 PM EDT INTERPRETIVE INFORMATION: IGF 1 Z-SCORE CALCULATION A Z score is the number of standard deviations a given result is above (positive score) or below (negative score) the age- and sex-adjusted population mean. ??Results that are within the IGF-1 reference interval will have a Z score between -2.0 and +2.0. Performed By: [facility] [address] [place] [address] Occupational Health Technician: Murray Johns MD, PhD CLIA Number: [id number] Jason Romero MD LAB BLOOD ORDERABLES Final Result [facility] [address] [place] [address] * (ABNORMAL) Growth hormone (05/23/2024 12:16 PM EDT) Pathologist [facility] Human Growth Hormone 2.95(H) 0.03 - 2.5 ng/mL 05/23/2024 2:31 PM EDT [facility] Blood Venous blood specimen / Unknown Venipuncture / Unknown 05/23/2024 12:16 PM EDT 05/23/2024 12:17 PM EDT Narrative [facility] - 05/23/2024 2:31 PM EDT Performed by Jona electrochemiluminescent immunoassay which is traceable to the [facility] IRP ([facility] 98/574). Results obtained with different test methods or kits cannot be used interchangeably. Because of the pulsatility of growth hormone (GH) secretion, measurement of random GH concentration are unreliable in diagnosing GH deficiency. For pediatric patients, very low peak growth hormone (GH) concentrations after stimulation are consistent with severe GH deficiency (GHD). No threshold is established to differentiate normal from partial GHD. Inadequate response to two different provocative tests is required for diagnosis of GHD. Reference: Piter et al. Horm Res Paediatr 2016,86:361- 397). The typical response to provocative GH stimulation testing in healthy patients at any time point in the sequence: Adults > or = 20 years: ?? Insulin Tolerance Test > or = 5.1 ng/mL ?? Arginine/GHRH ?> or = 4.1 ng/mL ?? Glucagon ? > or = 3.0 ng/mL (BMI up to 30) and >or= 1.0 ng/mL (BMI>30) ?? Macrelin ? > ?2.8 ng/mL (only for 30, 45, 60, and 90 min) Reference: ??Cuong CHANDRA et al. Endocr Pract. 2019;25(11):3260-1485 Children < 20 years: All Stimulation Tests > or = 10 ng/mL Concentrations above these thresholds usually exclude the diagnosis of growth hormone deficiency. The typical response to GH Suppression (Glucose Tolerance) Testing in healthy patients within two hours after a 75g oral glucose load: GH < 1.0 ng/mL usually excludes the diagnosis of acromegaly. Reference: ??Deb De La Paz, et al. ??JCEM 2014, ?? 99: ??7333 - [phone] us Jason Romero MD LAB BLOOD ORDERABLES Final Result [facility] [address] [place] [address] * Cortisol (05/23/2024 12:16 PM EDT) [facility] Signature Cortisol 8.80 Before 10am: 3.7 - 19.4. After 5pm: 2.9 - 17.3 ug/dL 05/23/2024 2:43 PM EDT [facility] Comment:Testing performed on Robert Certified Financial Planner, standardized against MCFP Reference Standard concentration values assigned by LC-MS/MS and verified by BCR 192 and BCR 193 certified reference materials. Blood Venous blood specimen / Unknown Venipuncture / Unknown 05/23/2024 12:16 PM EDT 05/23/2024 12:17 PM EDT Jason Romero MD LAB REF LAB BLOOD AND FLUID ORD Final Result Performing Organization Address City/[facility] Co de Phone Number [facility] [address] [place] [address] * (ABNORMAL) ACTH (05/23/2024 12:16 PM EDT) ACTH 4.07(L) 7.2 - 63 pg/mL 05/23/2024 2:17 PM EDT [facility] Blood Venous blood specimen / Unknown Venipuncture / Unknown 05/23/2024 12:16 PM EDT 05/23/2024 12:17 PM EDT Jason Romero MD LAB BLOOD ORDERABLES Final Result Performing Organization Address City/[facility] de Phone Number [facility] [address] [place] [address] * (ABNORMAL) FSH, Sensitive (05/23/2024 12:16 PM EDT) FSH, PEDIATRIC 9.5(H) mIU/mL 06/01/2024 7:07 PM EDT [facility] ([facility]) Comment: This test was developed and its performance characteristics determined by [facility]. It has not been cleared or approved by the Food and Drug Administration. Reference Range: Adult Males (20 - 50y): 2.0 - 9.2 Blood Venous blood specimen / Unknown Venipuncture / Unknown 05/23/2024 12:16 PM EDT 05/23/2024 12:17 PM EDT Narrative [facility] ([facility]) - 06/01/2024 7:07 PM EDT Performed at: ??01 - [employer] [address] [place] [address] ??[id number] Retail Presentation Specialist: Emir Bran MD, Phone: ??[phone] Jason Romero MD LAB BLOOD ORDERABLES Final Result [facility]) * (ABNORMAL) Luteinizing hormone (05/23/2024 12:16 PM EDT) Luteinizing Hormone 12(H) 1.7 - 8.6 mIU/mL 05/23/2024 2:20 PM EDT [facility] Blood Venous blood specimen / Unknown Venipuncture / Unknown 05/23/2024 12:16 PM EDT 05/23/2024 12:17 PM EDT Narrative [facility] - 05/23/2024 2:20 PM EDT ??LH Male Reference Ranges: ? Dar Stage 1: ?< 1.1 mIU/mL ? Dar Stage 2: ?< 3.7 mIU/mL ? Dar Stage 3: ?< 6.5 mIU/mL ? Dar Stage 4-5: ?0.9 - 8.3 mIU/mL ?? 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
--- OUTSIDE RECORDS SUMMARY | 2024-09-18 10:19 | XMS_ITS | Encounter Summary ---
Author Organization [facility] Address [address] [place] [address] Care Team Providers Care Forestry Patrolman Name Role Phone Rocky Almanzar MD Primary Care Provider [phone] Encounter Details Date Type Department Care Team (Latest Contact Info) Description 06/24/2024 Travel Social History Tobacco Use Types Packs/Day [...] Description 12/16/2024 12:00 PM EST Office Visit [facility] [address], [address] [place] [address] Jason Romero MD [address] [place] [address] 12/30/2024 1:30 PM EST Office Visit [facility] [address], [address] [place] [address] Vivian Macias S, OD [address] [place] [phone] documented as of this encounter Visit Diagnoses [...] documented as of this encounter Care Teams Forestry Patrolman Relationship Specialty Start Date End Date Rocky Almanzar MD [address] [place] [address] PCP - General 03/18/21 documented as of this encounter
--- OUTSIDE RECORDS SUMMARY | 2024-09-18 10:19 | XMS_ITS | Encounter Summary ---
Author Organization [facility] Address [address] [place] [address] Care Team Providers Care Integration Specialist Name Role Phone Rocky Almanzar MD Primary Care Provider [phone] Reason for Visit * Reason Comments Med Refill Encounter Details Date Type Department Care Team (Late st Contact Info) Description 07/02/[address] [facility] [address] [place] [address] Jason Romero MD [address] [place] [address] Type 2 diabetes mellitus with other specified complication, with long-term current use of insulin ([facility]) Social History Tobacco Use Types Packs/Day Years [...] encounter Miscellaneous Notes * Telephone Encounter - Amrita Andersen, PharmD - 07/02/2024 12:43 PM EDT 1 medication(s) has been approved per protocol. documented in this encounter Plan of Treatment Upcoming Encounters Date Type Department Care Team (Late st Contact Info) Description 12/16/2024 12:00 PM EST Office Visit [facility] [address], [address] [place] [address] Jason Romero MD [address] [facility] [address] [place] [address] 12/30/2024 1:30 PM EST Office Visit [facility] [address], [address] [place] [address] Vivian Macias, OD [address] [place] [address] documented as of this encounter Visit Diagnoses Diagnosis Type 2 diabetes mellitus with other specified complication, with long-term current use of insulin ([facility]) documented in this encounter Additional Health Concerns Infection Onset Date Last Indicated Resolved Time 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
--- OUTSIDE RECORDS SUMMARY | 2024-09-18 10:19 | XMS_ITS | Encounter Summary ---
Author Organization [facility] Address [address] [place] [address] Care Team Providers Care Maintenance Painter Name Role Phone Rocky Almanzar MD Primary Care Provider [phone] Reason for Visit * Imaging (Routine) - Closed Specialty Diagnoses / Procedures Referred By Contac t Referred To Contact Radiology Diagnoses Hemochromatosis, unspecified Procedures Imaging MRI Procedure Not Performed MR Cardiac Morphology and Function W Velocity Flow Mapping W and WO Contrast Eusebio Coates MD [address] [facility] [address] [place] [address] Phone: tel: fax: Referral ID Status Reason Start Date Expiration Date Visits Re quested Visits Authorized [id number] Closed 04/22/2024 10/22/2025 1 1 Encounter Details Date Type Department Care Team (Latest Contact Info) Description 07/14/2024 7:52 AM EDT - 07/14/2024 11:59 PM EDT Hospital Encounter [facility] [address] [place] [address] Hemochromatosis, unspecified Discharge Disposition: Home or Self Care Social History Tobacco Use Types Packs/Day Years [...] on file documented as of this encounter Medications at Time of Discharge Aspirin Buf,CaCarb-MgCar b-MgO, 81 MG tablet 1 tab(s) orally once a day cholecalciferol (Vitamin D-3) 25 MCG (1000 UT) tablet 1 tab(s) orally once a day ezetimibe (Zetia) 10 MG tablet insulin lispro protamine-insuli n lispro (HumaLOG MIX 75/25 KWIKPEN) (75-25) 100 UNIT/ML injection pen INJECT 26 UNITS THREE TIMES A DAY. TITRATE DIRECTED TO MAXIMUM DAILY DOSE OF 100 UNITS. 90 mL 3 03/26/2023 ipratropium-albu terol (Duo-Neb) 0.5-2.5 mg/3 mL nebulizer solution Take 3 mL by nebulization 3 (three) times a day. Jardiance 10 MGIndications:Ty pe 2 diabetes mellitus with hyperglycemia, with long-term current use of insulin (CMS/HCC) Take 1 tablet (10 mg) by mouth 1 (one) time each day. 90 tablet 3 05/23/2024 levothyroxine (Synthroid, Levoxyl) 50 MCG tablet Take 1 tablet (50 mcg) by mouth 1 (one) time each day before breakfast. 06/23/2024 metFORMIN (Glucophage) 500 MG tabletIndication s:Type 2 diabetes mellitus with other specified complication, with long-term current use of insulin (CMS/HCC) TAKE ONE TABLET BY MOUTH TWICE DAILY --TAKE WITH FOOD-- 60 tablet 5 07/02/2024 pravastatin (Pravachol) 20 MG tablet Take 1 tablet (20 mg) by mouth 1 (one) time each day. 01/05/2022 documented as of this encounter Plan of Treatment Upcoming Encounters Date Type Department Care Team (Late st Contact Info) Description 12/16/2024 12:00 PM EST Office Visit [facility] [address], [address] [place] [address] Jason Romero MD [address] [place] [address] 12/30/2024 1:30 PM EST Office Visit [facility] [address], [address] [place] [address] Vivian Macias S, OD [address] [place] [address] documented as of this encounter Procedures Procedure Name Priority Date/Time Associated Diagnosis Comments IMAGING MRI PROCEDURE NOT PERFORMED Routine 07/14/2024 9:34 AM EDT Hemochromatosis, unspecified documented in this encounter Results * Imaging MRI Procedure Not Performed (07/14/2024 9:34 AM EDT) Narrative IMAGING - 07/14/2024 9:34 AM EDT This procedure was not performed. Procedure: MR CardiacMorphology Reason: Non-Compatible Device Eusebio Coates MD IMG MRI PROCEDURES Final Result IMAGING documented in this encounter Visit Diagnoses Diagnosis Hemochromatosis, unspecified documented in this encounter Additional Health Concerns Infection Onset Date Last Indicated Resolved Time MRSA 03/30/2021 03/30/2021 Assessment Noted Time A fall risk assessment has been complete d for the patient 07/01/2024 9:34 AM EDT A Body Mass Index follow-up plan has been documented for the patient 07/02/2024 1:09 PM EDT documented as of this encounter Care Teams Maintenance Painter Relationship Specialty Start Date End Date Rocky Almanzar MD [address] [place] [address] PCP - General 03/18/21 documented as of this encounter
--- OUTSIDE RECORDS SUMMARY | 2024-09-18 10:19 | XMS_ITS | Encounter Summary ---
Author Organization [facility] Address [address] [place] [address] Care Team Providers Care Funeral Attendant Name Role Phone Rocky Almanzar MD Primary Care Provider [phone] Encounter Details Date Type Department Care Team (Latest Contact Info) Description 12/27/2023 Travel Social History Tobacco Use Types Packs/Day [...] Description 12/16/2024 12:00 PM EST Office Visit [facility] End[facility]ology [address], [address] [place] [address] Jason Romero MD [address] [place] [address] 12/30/2024 1:30 PM EST Office Visit [facility] [address], [address] [place] [address] Vivian Macias S, OD [address] [place] [phone] documented as of this encounter Visit Diagnoses [...] documented as of this encounter Care Teams Funeral Attendant Relationship Specialty Start Date End Date Rocky Almanzar MD [address] [place] [address] PCP - General 03/18/21 documented as of this encounter
--- OUTSIDE RECORDS SUMMARY | 2024-09-18 10:19 | XMS_ITS | Encounter Summary ---
Author Organization [facility] Address [address] [place] [address] Care Team Providers Care Porter Sample Case Name Role Phone Rocky Almanzar MD Primary Care Provider [phone] Reason for Visit * Reason Comments Diabetes Mellitus * Consultation (Routine) - Closed Specialty Diagnoses / Procedures Referred By Contac t Referred To Contact Endocrinology Diagnoses Type 2 diabetes mellitus with hyperglycemia, with long-term current use of insulin ([facility]) Jsaon Romero MD [address] [address] Phone: tel: fax: [facility] [address], [address] [place] [address] Phone: tel: fax: Referral ID Status Reason Start Date Expiration Date Visits Re quested Visits Authorized [id number] Closed 05/23/2024 11/22/2025 1 1 Encounter Details Date Type Department Care Team (Late st Contact Info) Description 06/24/2024 1:00 PM EDT Education [facility] [address], [address] [place] [phone] [address] Type 2 diabetes mellitus with hyperglycemia, with long-term current use of insulin ([facility]) Social History Tobacco Use Types [...] encounter Miscellaneous Notes * Progress Notes - Vivian Nielsen RD - 06/24/2024 1:00 PM EDT Pt seen along with his for CGM start. Patient to start using a personal continuous glucose monitor based on prescription. Reviewed [facility] 3 monitor and appropriate use with the current diabetes therapy plan. Patient was provided education for the CGM, including: mobile ahmet and reader options prefers to usehis phone ahmet, infection prevention/proper hygiene, inserting a sensor, appropriate sensor placement and site rotation, how often a sensor and transmitter must be changed, starting/ending a sensor session, and hazardous waste disposal. Assisted pt with setting low and high alert (pt wants low alert set at 90mg/dL and high alert set at 300mg/dL as he reports has been on prednisone, pt reports has scale provided by provider for treating high blood glucose). Discussed differences between CGM and fingerstick readings. Advised patient when symptoms do not match CGM reading, or no CGM readings available, a fingerstick blood glucose test should be performed. Discussed impact of diet and nutrition on readings. Pt was encouraged to call [employer] customer support for any technical concerns. Patient will follow up with Adult [facility] for any other questions or concerns related to their diabetes therapy plan. The patient expressed understanding of the CGM, and all questions were answered. documented in this encounter Plan of Treatment Upcoming Encounters Date Type Department Care Team (Late st Contact Info) Description 12/16/2024 12:00 PM EST Office Visit [facility] Endocrinology [address], [address] [place] [phone] Jason Romero MD [address] [place] [address] 12/30/2024 1:30 PM EST Office Visit [facility] [place] [address], [address] [place] [address] Vivian Macias S, OD [address] [place] [address] documented as of this encounter Visit Diagnoses Diagnosis Type 2 diabetes mellitus with hyperglycemia, with long-term current use of insulin ([facility]) documented in this encounter Additional Health Concerns Infection Onset Date Last Indicated Resolved Time MRSA 03/30/2021 03/30/2021 Assessment Noted Time A fall risk assessment has been complete d for the patient 01/24/2023 9:21 AM EDT A Body Mass Index follow-up plan has been documented for the patient 05/31/2024 1:06 AM EDT documented as of this encounter Care Teams Porter Sample Case Relationship Specialty Start Date End Date Rocky Almanzar MD [address] [place] [address] PCP - General 03/18/21 documented as of this encounter
--- OUTSIDE RECORDS SUMMARY | 2024-09-18 10:19 | XMS_ITS | Encounter Summary ---
Author Organization [facility] Address [address] [place] [address] Care Team Providers Care Welfare Service Aide Name Role Phone Rocky Almanzar MD Primary Care Provider [phone] Encounter Details Date Type Department Care Team (Latest Contact Info) Description 05/22/2024 Travel Social History Tobacco Use Types Packs/Day [...] Description 12/16/2024 12:00 PM EST Office Visit [facility] Endocrinology [address], [address] [place] [address] Jason Romero MD [address] [place] [address] 12/30/2024 1:30 PM EST Office Visit [facility] [address], [address] [place] [phone] Vivian Macias S, OD [address] [place] [phone] documented as of this encounter Visit Diagnoses [...] documented as of this encounter Care Teams Welfare Service Aide Relationship Specialty Start Date End Date Rocky Almanzar MD [address] [place] [address] PCP - General 03/18/21 documented as of this encounter
--- OUTSIDE RECORDS SUMMARY | 2024-09-18 10:19 | XMS_ITS | Encounter Summary ---
Author Organization [facility] Address [address] [place] [address] Care Team Providers Care Business Services Officer Name Role Phone Rocky Almanzar MD Primary Care Provider [phone] Reason for Visit * Reason Onset Date Comments [employer] 3 Sensors and [place] Device to DME 05/23/2024 Encounter Details Date Type Department Care Team (Late st Contact Info) Description 05/23/2024 Telephone [facility] Endocrinology [address] [facility], [address] [place] [phone] Dana Ferguson RN [facility]PER[facility] [employer] 3 Sensors and [place] Device to [facility] Social History Tobacco Use Types Packs/Day Years [...] encounter Miscellaneous Notes * Telephone Encounter - Dana Ferguson RN - 05/23/2024 12:06 PM EDT Alexandra can you please send [employer] 3 Sensors and [place] Device to DME please. Can you please have them call the 's number at Thank You. documented in this encounter Plan of Treatment Upcoming Encounters Date Type Department Care Team (Late st Contact Info) Description 12/16/2024 12:00 PM EST Office Visit [facility] Endocrinology [address] [place] [address] Jason Romero MD [address] [facility] [address] [place] [address] 12/30/2024 1:30 PM EST Office Visit [facility] [address] [place] [address] Vivian Macias, OD [address] [place] [address] documented as of this encounter [...] documented as of this encounter Care Teams Business Services Officer Relationship Specialty Start Date End Date Rocky Almanzar MD [address] [place] [address] PCP - General 03/18/21 documented as of this encounter
--- OUTSIDE RECORDS SUMMARY | 2024-09-18 10:19 | XMS_ITS | Encounter Summary ---
Author Organization [facility] Address [address] [place] [address] Care Team Providers Care Industrial Education Teacher Name Role Phone Rocky Almanzar MD Primary Care Provider [phone] Reason for Visit * Reason Comments Diabetic Eye Exam Encounter Details Date Type Department Care Team (Latest Contact Info) Description 07/01/2024 9:00 AM EDT Office Visit [facility] [place] [address], [address] [place] [address] Vivian Macias S, OD [address] [place] [address] Diabetes mellitus type 2 without retinopathy (CMS/HCC) (Primary Dx); Epiretinal membrane (ERM) of both eyes; Pseudophakia, both eyes; Presbyopia of both eyes Social History Tobacco Use Types Packs/Day Years [...] Miscellaneous Notes * Progress Notes - Vivian Macias, OD - 07/01/2024 9:00 AM EDT General Clinic Note 07/02/24 CHIEF COMPLAINT Patient presents for Diabetic Eye Exam HISTORY OF PRESENT ILLNESS: Jose Luis Trevino is a 74 y.o. male who presents to the clinic today for: HPI Diabetic Eye Exam Associated symptoms include blurred vision. Diabetes characteristics include Type 2. Duration of 10years. Blood sugar level fluctuates. Comments 74 year old male presents today for yearly diabetic eye exam. History of PanOptix IOLs both eyes, epiretinal membrane both eyes. Last eye exam 01/[address] Null. Patient reports vision is blurry up close when reading or using his phone. Patient has tried using eye drops made for using the computer and states they don't work. Does not wear glasses. Last A1C was 9.5 05/2024; patient had 2 separate rounds of prednisone for recent lung problems, which has increased A1C Fasting BSL was around 150 Last edited by Cara Caballero on 07/01/2024 9:46 AM. Lab Results Component Value Date HGBA1C 9.5 05/23/2024 HGBA1C 8.0 (A) 08/22/2021 REVIEW OF SYSTEMS: ROS Negative for: Constitutional, Gastrointestinal, Neurological, Skin, Genitourinary, Musculoskeletal,HENT, Endocrine, Cardiovascular, Eyes, Respiratory, Psychiatric, Allergic/Imm, Heme/Lymph Last edited by Cara Caballero on 07/01/2024 9:28 AM. Negative except for ROS Negative for: Constitutional, Gastrointestinal, Neurological, Skin, Genitourinary, Musculoskeletal,HENT, Endocrine, Cardiovascular, Eyes, Respiratory, Psychiatric, Allergic/Imm, Heme/Lymph Last edited by Cara Caballero on 07/01/2024 9:28 AM. Referring physician: No ref. provider found HISTORICAL INFORMATION: Selected notes from the medical record: CURRENT MEDICATIONS: No current outpatient medications on file. (Ophthalmic Drugs) No current facility-administered medications for this visit. (Ophthalmic Drugs) Current Outpatient Medications (Other) Medication Sig Aspirin Buf,JgQmcg-AvQayb-QxN, 81 MG tablet 1 tab(s) orally once a day cholecalciferol (Vitamin D-3) 25 MCG (1000 UT) tablet 1 tab(s) orally once a day ezetimibe (Zetia) 10 MG tablet insulin lispro protamine-insulin lispro (HumaLOG MIX 75/25 KWIKPEN) (75-25) 100 UNIT/ML injection pen INJECT 26 UNITS THREE TIMES A DAY. TITRATE DIRECTED TO MAXIMUM DAILY DOSE OF 100 UNITS. ipratropium-albuterol (Duo-Neb) 0.5-2.5 mg/3 mL nebulizer solution Take 3 mL by nebulization 3 (three) times a day. Jardiance 10 MG Take 1 tablet (10 mg) by mouth 1 (one) time each day. levothyroxine (Synthroid, Levoxyl) 50 MCG tablet Take 1 tablet (50 mcg) by mouth 1 (one) time each day before breakfast. pravastatin (Pravachol) 20 MG tablet Take 1 tablet (20 mg) by mouth 1 (one) time each day. metFORMIN (Glucophage) 500 MG tablet TAKE ONE TABLET BY MOUTH TWICE DAILY --TAKE WITH FOOD-- No current facility-administered medications for this visit. (Other) ALLERGIES Allergies Allergen Reactions Cephalexin Itching Possible allergy, patient unsure Mixed Ragweed Unknown - Patient states they do not know rxn details PAST MEDICAL HISTORY Past Medical History: Diagnosis Date Allergy status to unspecified drugs, medicaments and biological substances History of seasonal allergies Cataract Diabetes mellitus (CMS/HCC) 2013 Fatty (change of) liver, not elsewhere classified Hepatic steatosis Hypothyroidism Methicillin resistant Staphylococcus aureus infection, unspecified site MRSA (methicillin resistant Staphylococcus aureus) Other specified cardiac arrhythmias Atrial dysrhythmia Personal history of other diseases of the nervous system and sense organs History of hearing loss Personal history of other endocrine, nutritional and metabolic disease History of hyperlipidemia Personal history of urinary calculi History of renal calculi Pneumonia Type 2 diabetes mellitus (CMS/HCC) Past Surgical History: Procedure Laterality Date APPENDECTOMY N/A Appendectomy from [facility] CATARACT EXTRACTION Left 09/05/2021 Dr. Null, [id number] CATARACT EXTRACTION Right 10/03/2021 [place] [employer] CATH ABLATION N/A Catheter ablation from [facility] ENDOMETRIAL ABLATION N/A Endometrial ablation from [facility] KNEE SURGERY N/A Knee Surgery from [facility] LITHOTRIPSY N/A Lithotripsy from [facility] OTHER SURGICAL HISTORY N/A Skull Excision from [facility] OTHER SURGICAL HISTORY N/A Prostate ablation cryosurgery from [facility] TONSILLECTOMY N/A Tonsillectomy from [facility] FAMILY HISTORY Family History Problem Relation Name Age of Onset COPD Father Diabetes Father Ovarian cancer Mother Aretha Cancer Mother Aretha SOCIAL HISTORY Social History Tobacco Use Smoking status: Former Current packs/day: 0.00 Average packs/day: 1.5 packs/day for 15.0 years (22.5 ttl pk-yrs) Types: Cigarettes Start date: 11/05/1989 Quit date: 11/05/2004 Years since quittin.6 Smokeless tobacco: Never Vaping Use Vaping status: Never Used Substance Use Topics Alcohol use: Yes Alcohol/week: 1.0 - 2.0 standard drink of alcohol Types: 1 - 2 Cans of beer per week Comment: Alcoholic Drinks/day: Consumes alcohol occasionally Drug use: Never Comment: Drug use: No drug use GENERAL EXAM: General Exam: Neuro: Alert and Oriented x 3, normal mood and affect OPHTHALMIC EXAM: Base Eye Exam Visual Acuity (Snellen-Linear) Right Left Dist sc 20/25 -2 20/30 -2 +1 Dist ph sc NI Near sc J1+ J3 Tonometry (Tonopen, 9:45 AM) Right Left Pressure 12 12 Pupils Pupils Dark Light Shape React APD Right PERRL 4 3 Round Minimal None Left PERRL 4 3 Round Minimal None Visual Moore Right Left Full Full Extraocular Movement Right Left Full, Ortho Full, Ortho Neuro/Psych Oriented x3: Yes Mood/Affect: Normal Dilation Both eyes: 1% Tropicamide @ 9:54 AM Slit Lamp and Fundus Exam External Exam Right Left External Normal Normal Slit Lamp Exam Right Left Lids/Lashes Normal for age Normal for age Conjunctiva/Sclera Normal Normal Cornea Clear and compact Clear and compact Anterior Chamber Deep and quiet Deep and quiet Iris Normal pupil size and shape;no nvi Normal pupil size and shape;no nvi Lens panoptix stable, trace PCO panoptix stable;1+ pco Anterior Vitreous PVD floaters Fundus Exam Right Left Disc No edema; no vascularization; good color (Otto 78 d Lens) No edema; no vascularization; good color (Otto 78 d Lens) C/D Ratio 0.2 0.2 Macula ERM with RPE changes trace ERM Vessels Perfused; no tortuosity or abnormality Perfused; no tortuosity or abnormality Periphery Attached; no retinal or choroidal lesions Attached; no retinal or choroidal lesions Refraction Cycloplegic Refraction Sphere Cylinder [place] Dist VA Add Right -0.25 20/40+ +2.00 Left +0.25 +0.50 006 20/25-2 +2.00 Final Rx Sphere Cylinder [place] Right +1.75 Left +2.25 +0.50 006 Type: SV readers Expiration Date: 07/01/2025 A complete eye exam including examination of periorbital structures, anterior segment, and posterior segment was ordered, reviewed, and interpreted by Vivian Macias, TRU. All results reviewed as within normal limits except those discussed below: Assessment/Plan Diagnoses and all orders for this visit: Diabetes mellitus type 2 without retinopathy (CMS/HCC) Epiretinal membrane (ERM) of both eyes - OCT, Retina - OU - Both Eyes Pseudophakia, both eyes Presbyopia of both eyes Diabetes mellitus type 2 without retinopathy (CMS/HCC) No retinopathy noted at this time with poor control of blood glucose. Recent use of steroids to help with respiratory issues impacting ability to control A1c. Complications associated with diabetes including Retinopathy, cataracts, and blindness were discussed. -follow up n 6 months - Report of today's findings sent to PCP. Epiretinal membrane (ERM) of both eyes -OCT of macula performed today showing some changes in epiretinal membrane (ERM) since last OCT. -Follow up in 6 months with dilation and repeat OCT. Pseudophakia, both eyes -stable and well centered posterior chamber intraocular lens (PCIOL) right eye (OD) and left eye (OS), mild PCO in both eyes -follow up annually with dilation to monitor for continued centration/stability Presbyopia of both eyes -Refraction performed. single vision reading prescription released to patient. Follow up in about 6 months (around 01/01/2025) for Dilated Exam, OCT. A review of both external and internal historical documentation was completed by provider. Patient history, provider findings, and provider assessment and plan discussed with patient. Monitoring of conditions discussed above is necessary to prevent lifelong disability Explained the diagnoses, plan, and follow up with the patient and they expressed understanding. Patient expressed understanding of the importance of proper follow up care. Tobacco Use: Medium Risk (07/01/2024) Patient History Smoking Tobacco Use: Former Smokeless Tobacco Use: Never Passive Exposure: Not on file The patient has been counseled on tobacco cessation: Not Applicable Electronically signed by: Vivian Macias OD 07/02/2024 1:08 PM documented in this encounter Plan of Treatment Upcoming Encounters Date Type Department Care Team (Late st Contact Info) Description 12/16/2024 12:00 PM EST [facility] [address] [place] [phone] Jason Romero MD [address] [place] [address] 12/30/2024 1:30 PM EST Office Visit [facility] [place] [address], [address] [place] [address] Vivian Macias, OD [address] [place] [address] documented as of this encounter [...] foveal contour change, overall normal foveal depression us Vivian Macias OD OPHTH TOMOGRAPHY Final Result documented in this encounter Visit Diagnoses Diagnosis Diabetes mellitus type 2 without retinopathy (CMS/HCC)- Primary Epiretinal membrane (ERM) of both eyes Pseudophakia, both eyes Lens replaced by other means Presbyopia of both eyes documented in this encounter Additional Health Concerns Infection Onset Date Last Indicated Resolved Time 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
--- OUTSIDE RECORDS SUMMARY | 2024-09-18 10:19 | XMS_ITS | Encounter Summary ---
Author Organization [facility] Address [address] [place] [address] Care Team Providers Care Circular Knife Cutter Machine Name Role Phone Rocky Almanzar MD Primary Care Provider [phone] Reason for Visit * Reason Comments Type 2 DM w hyperglycemia Encounter Details Date Type Department Care Team (Late st Contact Info) Description 11/22/2023 11:20 AM EST Office Visit [facility] Endocrinology [address] , [address] [place] [address] Jason Romero MD [address] [place] [address] Type 2 diabetes mellitus with hyperglycemia, with long-term current use of insulin ([facility]) (Primary Dx) Social History Tobacco Use Types [...] on file documented as of this encounter Last Filed Vital Signs Vital Sign Reading Time Taken Comments Blood Pressure 114/63 11/22/2023 11:20 AM EST Pulse 83 11/22/2023 11:20 AM EST Temperature - - Respiratory Rate - - Oxygen Saturation 94% 11/22/2023 11: 20 AM EST Inhaled Oxygen Concentration - - Weight 61.6 kg (135 lb 12.9 oz) 024 11:20 AM EST Height 165.1 cm (5' 5 ) 11/22/2023 11:2 0 AM EST Body Mass Index 22.6 11/22/2023 11:20 AM EST documented in this encounter Miscellaneous Notes * Progress Notes - Lázaro Tiwari, DO - 11/22/2023 11:20 AM EST Chief Complaint Uncontrolled T2DM History of Present Illness Mr. Trevino is a 73 yo male with Hemochromatosis, T2DM, HLD History of MSSA infection of his right ear cochlear implant (2014 - 2015), having leukopenia Ferritin 121 (08/21), 80 (04/22), 42 (03/23), 62 (02/23) phlebotomy every 2 - 3 months if ferritin levels >100 History of A fib, was taking verapamil, flecainide and Xarelto, had ablation in 05/23. DM regimen Humalog 75/25: 26 - 30 (usually 28) units BID with each meal + adjustment Metformin 500 mg BID Jardiance 10 mg daily since 02/15/2022 A1C 8.2 FS 2 times a day, 111-227, No Hypoglycemia Diet the same, occasionally juice; alcohol occasionally Eats 3 meals a day 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, 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 Weight - lost 18lbs since May 2024 He is now a non-smoker (smoked from age 22 - 61, up to 1.5ppd) EYE - 01/2023, no retinopathy (cataract removal in 09/2021) HTN - acceptable BP, taking Atenolol HDL - LDL 62 TG 572 (08/2021), takes Zetia, pravastatin since 12/2021 He had been taking Praluent 75 mg/ml every 2 weeks 02/21 - 2020, but insurance didn't approve, had elevated TG and normal LFT, then added pravastatin 20 mg daily 12/2021 Kidney - Cr normal (GFR > 60) Neuropathy - + tingling, on the soles of his feet only, minimal Subclinical Hypothyroidism Levothyroxine 25 mcg daily, taking everyday, TSH 3.5 (09/20), 2.56 (04/22), 3.4 (07/24), 2.97 (08/22/2021) 3.42 (05/18/23) He denies symptoms of hyper/hypothyroidism Takes zetia, statin, vitamin D and levothyroxine History of fatigue, recommended ruling out sleep apnea Review of System History of SOB, 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 PCP, ETT was unremarkable 12/2021 His liver is stable and can use statin, should watch LFT (history of hemochromatosis) History of COVID-19 in 09/2020 History of mild local reaction to Prulent (redness and itching) was told that can use anti histamine Denies nausea, vomiting, chest pain, abdominal pain, headache, vision problem, hearing problem, dizziness, diarrhea or constipation Hemochromatosis: 2010 liver biopsy from [facility] in [place] showed active chronic hepatitis withmoderate stainable iron (2+), steatosis grade 1, inflammation grade 3 and stage 2 fibrosis (consistent with hemochromatosis) DNA mutation analysis the same year 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 No evidence of cirrhosis per GI note Blood tests 10/31/2017, CMP (AST 50 ALT 67), CBC (Hb 15.1 WBC 1900 Plt [id number]) PAF/atrial flutter, HTN, DM, and HLP. He had been tried on Flecainide but had atrial fibrillation refractory to this. He underwent atrial fibrillation ablation 06/04/19 and Pneumonia in 10/23 T2DM (no response to BYDUREON - (exenatide extended-release) and Janumet Soliqua 100/33 (insulin glargine & Lixisenatide injection: 100 Units/mL & 33 mcg/mL) - not accepted by insurance Visit Vitals BP 114/63 (BP Location: Right arm, Patient Position: Sitting, BP Cuff Size: Large adult) Pulse 83 Ht 1.651 m (5' 5 ) Wt 61.6 kg (135 lb 12.9 oz) SpO2 94% BMI 22.60 kg/m?? Smoking Status Former BSA 1.68 m?? Physical exam General appearance well developed well-nourished with no respiratory distress, cyanosis HEENT EOMI, PERRLA normal appearance of nose, ears, mouth and face Neck no Thyromegaly, mass or lymphadenopathy Heart RRR, normal S1S2, no M/R/G Abdomen soft, no distension, tenderness or mass Extremities no edema Musculoskeletal No deformity Psychiatric Mood and Affect normal, Behavior normal. Neurologic exam orient to TPP, no sensory or motor deficit Component Latest Ref Rng & Units 05/18/2023 Testosterone Total 264.0 - 916.0 ng/dL 420.2 Sex Hormone Binding Globulin 11.2 - 78.1 nmol/L 72.7 Free Testosterone (pg/mL) 52.0 - 280.0 pg/mL 50.5 (L) Free Testosterone (%) 1.2 Free T4 0.8 - 1.7 ng/dL 1.2 TSH 0.40 - 4.20 uIU/mL 3.42 LH 1.7 - 8.6 mIU/mL 7.82 FSH Prolactin 3.4 - 15.2 ng/mL 10.2 Albumin 3.5 - 5.0 g/dL 3.9 Component Latest Ref Rng & Units 05/18/2023 05/18/2023 11:18 AM 11:18 AM Glucose 74 - 99 mg/dL 227 (H) BUN 8 - 23 mg/dL 22 Creatinine 0.80 - 1.30 mg/dL 0.97 BUN/Creatinine Ratio 23 Sodium 136 - 145 mmol/L 138 Potassium 3.7 - 4.8 mmol/L 4.4 Chloride 97 - 107 mmol/L 103 CO2 22 - 29 mmol/L 24 Anion Gap 6 - 16 mmol/L 11 Calcium 8.9 - 10.2 mg/dL 9.3 Total Protein 6.3 - 7.9 g/dL 7.2 Albumin 3.5 - 5.0 g/dL 3.9 3.9 AST, Plasma 19 - 48 U/L 45 ALT, Plasma 11 - 41 U/L 38 Alkaline Phosphatase 40 - 115 U/L 245 (H) Total Bilirubin, Plasma 0.2 - 1.1 mg/dL 0.8 EGFR mL/min/1.73m*2 82.9 WBC 3.70 - 10.30 10*3/uL 1.58 (L) RBC 4.60 - 6.10 10*6/uL 5.32 Hemoglobin 13.7 - 17.5 g/dL 16.7 Hematocrit 40.0 - 51.0 % 48.6 Platelet Count 155 - 369 10*3/uL 178 MCV 79 - 98 fL 91 MCH 26.0 - 32.0 pg 31.4 MCHC 30.7 - 35.5 g/dL 34.4 RDW 11.5 - 14.5 % 13.6 MPV 8.8 - 12.5 fL 9.9 Cholesterol <200 mg/dL 167 HDL >=40 mg/dL 29 (L) Triglycerides <150 mg/dL 345 (H) Cholesterol/HDL Ratio 6 LDL Calculated <100 mg/dL 82 Discussion/Summary 1) T2DM - high A1C/FS, no hypoglycemia, continue metformin 500 mg BID and Jardiance 10 mg daily Encourage more activity, diabetic diet, lose weight Patient is considering reducing Jardiance in setting of weight loss. If patient starts to take Jardiance every other day, patient will increase Humalog 75/25 to 30u BID. Humalog 75/25 26 units with breakfast and 26 units with supper If you don't eat then should not take insulin If you eat half meal then take half dose insulin If you eat less meal, then should take less insulin Check finger stick (FS) three times a day (before each meal) If Finger Stick < 100 then reduce insulin by 4 units If Finger Stick 160 - 230 then increase insulin by 2 units If Finger Stick 231 - 300 then increase insulin by 4 units If Finger Stick > 300 then increase insulin by 6 units Finger stick per meal should be 100 - 160 Finger stick 2 hours after meal should be 120 - 180 If finger stick 2 hours after meal > 180, then increase insulin on each scale by 2 units If finger stick 2 hours after meal < 120, then decrease insulin on each scale by 2 units 2) EYE - follow wrapper selector 3) HTN - continue current regimen 4) Kidney - no CKD 5) HDL - he was taking Zetia and Praluent, insurance did not approve Praluent, had normal LFT but elevated TG, then added pravastatin 20 mg daily 12/2021 SGLT2 inhibitors can increase LDL cholesterol because of reduced clearance of LDL from the circulation and greater lipolysis of triglyceride-rich lipoproteins. 6) Subclinical Hypothyroidism - continue levothyroxine 25 mcg daily 7) Hemochromatosis - GI discharged him 8) Vitamin D deficiency - takes vitamin D 9) Fatigue - encourage having sleep studies, ruling out sleep apnea. Follow up with PCP. Plan Continue metformin, Jardiance and insulin regimen as documented above RTC 6 months Lázaro Tiwari DO PGY-3, Internal Medicine Ferritin 42 (11/03/2023) documented in this encounter Plan of Treatment Upcoming Encounters Date Type Department Care Team (Late st Contact Info) Description 12/16/2024 12:00 PM EST Office Visit [facility] Endocrinology [address], [address] [place] [address] Jason Romero MD [address] [facility] [address] [place] [address] 12/30/2024 1:30 PM EST Office Visit [facility] [address], [address] [place] [address] Vivian Macias S, OD [address] [place] [address] documented as of this encounter Procedures Procedure Name Priority Date/Time Associated Diagnosis Comments POCT GLYCOSYLATED HEMOGLOBIN (HGB A1C) Routine 11/22/2023 11:28 AM EST Type 2 diabetes mellitus with hyperglycemia, with long-term current use of insulin ([facility]) documented in this encounter Results * (ABNORMAL) POCT glycosylated hemoglobin (Hb A1C) docked device (11/22/2023 11:28 AM EST) POCT Hemoglobin A1C 8.2 <5.7% Non-Diabe tic [place] [employer] [facility] Kit Lot Number [id number] [facility] Kit Expiration Date 11/04/2025 [employer] Blood Venous blood specimen / Unknown 11/22/2023 11:28 AM EST Jason Romero MD POINT OF CARE TEST ENTER/ED IT ORDERABLES Final Result Performing Organization Address City/State/[facility] Co de Phone Number [facility]ALTHCARE [facility] [address] [place] [address] documented in this encounter Visit Diagnoses Diagnosis Type 2 diabetes mellitus with hyperglycemia, with long-term current use of insulin ([facility])- Primary documented in this encounter Additional Health Concerns Infection Onset Date Last Indicated Resolved Time MRSA 03/30/2021 03/30/2021 Assessment Noted Time A fall risk assessment has been complete d for the patient 01/24/2023 9:21 AM EDT A Body Mass Index follow-up plan has been documented for the patient 11/22/2023 12:22 PM EST documented as of this encounter Care Teams Circular Knife Cutter Machine Relationship Specialty Start Date End Date Rocky Almanzar MD [address] [place] [address] PCP - General 03/18/21 documented as of this encounter
--- OUTSIDE RECORDS SUMMARY | 2024-09-18 10:19 | XMS_ITS | Encounter Summary ---
Author Organization Healthcare Address [address] [place] [address] Care Team Providers Care Train Control Electronic Technician Name Role Phone Rocky Almanzar MD Primary Care Provider [phone] Encounter Details Date Type Department Care Team (Late st Contact Info) Description 12/07/2023 Telephone [facility]UDIOLOG[facility] [address], [address] [place] [address] Lottie Lund, AuD [address] [place] [address] Social History Tobacco Use Types Packs/Day Years [...] encounter Miscellaneous Notes * Telephone Encounter - Madelnie Ann Melvi - 12/07/2023 1:25 PM EST Talked with Jose Luis on 02/02/24 and let him know I was working on finding him an appointment with Dr. Lund. I was able to talk to him on Sunday12/07/23 and he is scheduled for 12/27/23 2 12:30. Patient is aware of the appointment. documented in this encounter Plan of Treatment Upcoming Encounters Date Type Department Care Team (Late st Contact Info) Description 12/16/2024 12:00 PM EST Office Visit [facility] Endocrinology [address] [facility], [address] [place] [id number] Jason Romero MD [address] [place] [id number] 12/30/2024 1:30 PM EST Office Visit [facility] [address], [address] [place] [address] Vivian Macias S, OD [address] [place] [address] documented as of this encounter [...] documented as of this encounter Care Teams Train Control Electronic Technician Relationship Specialty Start Date End Date Rocky Almanzar MD [address] [place] [address] PCP - General 03/18/21 documented as of this encounter
--- OUTSIDE RECORDS SUMMARY | 2024-09-18 10:19 | XMS_ITS | Encounter Summary ---
Author Organization [facility] Address [address] [place] [address] Care Team Providers Care Tool Design Engineer Name Role Phone Rocky Almanzar MD Primary Care Provider [phone] Reason for Referral * Consultation (Routine) - Closed Specialty Diagnoses / Procedures Referred By Contac t Referred To Contact Endocrinology Diagnoses Type 2 diabetes mellitus with hyperglycemia, with long-term current use of insulin ([facility]) Jason Romero MD [address] [place] [address] Phone: tel: fax: [facility] [address] [place] [address] Phone: tel: fax: Referral ID Status Reason Start Date Expiration Date Visits Re quested Visits Authorized [id number] Closed 05/23/2024 11/22/2025 1 1 Scheduling Instructions The pt's will call us after they receive their Leroy 3 from DME. Encounter Details Date Type Department Care Team (Late st Contact Info) Description 05/23/2024 11:00 AM EDT Office Visit [facility] Endocrinology [address], [address] [place] [address] Jason Romero MD [address] [facility] [address] [place] [id number] Type 2 diabetes mellitus with hyperglycemia, with long-term current use of insulin ([facility]) (Primary Dx); Weight loss Social History Tobacco Use Types [...] Pulse 105 05/23/2024 10:39 AM EDT Temperature - - Respiratory Rate - - Oxygen Saturation - - Inhaled Oxygen Concentration - - Weight 52.3 kg (115 lb 4.8 oz) 05/23/2024 10:39 AM EDT Height 165.1 cm (5' 5 ) 05/23/2024 10:39 AM EDT Body Mass Index 19.19 05/23/2024 10:39 AM EDT documented in this encounter Miscellaneous Notes * Clinician Note - Dana Ferguson RN - 05/23/2024 11:00 AM EDT Jose Luis Trevino, 74 year old male Type 2 diabetic here for a appointment. Patient's HBA1C is 9.5%. Current treatment includes Humalog 75/25 Insulin 26-30 units BID, Metformin 500 mg BID, and Jardiance 10 mg daily. Referred to Cloud Administrator for the following; Patient to start using a personal continuous glucose monitor. Reviewed Free Style Leroy 3 monitor and appropriate use with the current diabetes therapy plan. Patient was provided education for the CGM, including: mobile ahmet and reader options, infection prevention/proper hygiene, inserting a sensor, appropriate sensor placement and site rotation, how often a sensor/transmitter must be changed, starting/ending a sensor session, and hazardous waste disposal. Advised patient when symptoms do not match CGM reading, or no CGM readings available, a fingerstick blood glucose test should be performed. Discussed differences between CGM and fingerstick readings. Discussed impact of diet and nutritionon readings. Pt was encouraged to call [employer] customer support for any technical concerns. Patient and expressed interest in coming in to [facility] for Sensor Education. Referral placed. Contact information for [facility] Adult Diabetes Educators given to pt for any questions or concerns regarding their diabetes management therapy plan. All questions were answered and pt verbalized understanding. * Progress Notes - Jason Romero MD - 05/23/2024 11:00 AM EDT Chief Complaint Uncontrolled T2DM History of Present Illness Mr. 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 Weight - lost > 50 lbs since 2022 He is now a non-smoker (smoked from age 22 - 61, up to 1.5ppd) EYE - 01/2024, no retinopathy (cataract removal in 09/2021) HTN - acceptable BP HDL - LDL 82 TG 345 (05/2023), takes Zetia, pravastatin since 12/2021 He had been taking Praluent 75 mg/ml every 2 weeks 02/21 - 2020, but insurance didn't approve, had elevated TG and normal LFT, then added pravastatin 20 mg daily 12/2021 Kidney - Cr normal (GFR > 60) Neuropathy - + tingling, on the soles of his feet only, minimal Subclinical Hypothyroidism Levothyroxine 25 mcg daily, taking everyday, 3.42 (05/18/23) He denies symptoms of hyper/hypothyroidism Takes zetia, statin, vitamin D and levothyroxine History of fatigue and weight loss, had unremarkable investigation with hospital aide, oncologist, manager semiconductor Review of System History of SOB, sees hospital aide and PCP, ETT was unremarkable 12/2021 His liver is stable and can use statin, should watch LFT (history of hemochromatosis) History of COVID-19 in 09/2020 History of mild local reaction to Prulent (redness and itching) was told that can use anti histamine Denies nausea, vomiting, chest pain, abdominal pain, headache, vision problem, hearing problem, dizziness, diarrhea or constipation Hemochromatosis: 2010 liver biopsy from [facility] in [place] showed active chronic hepatitis withmoderate stainable iron [...] 67), CBC (Hb 15.1 WBC 1900 Plt [id number]) PAF/atrial flutter, HTN, DM, and HLP. He had been tried on Flecainide but had atrial fibrillation refractory to this. He underwent atrial fibrillation ablation 06/04/19 and Pneumonia in 10/23 T2DM (no response to BYDUREON - (exenatide extended-release) and Janumet Soliqua 100/33 (insulin glargine & Lixisenatide injection: 100 Units/mL & 33 mcg/mL) - not accepted by insurance Visit Vitals BP 97/62 Pulse 105 Ht 1.651 m (5' 5 ) Wt 52.3 kg (115 lb 4.8 oz) BMI 19.19 kg/m?? Smoking Status Former BSA 1.55 m?? Physical exam General appearance well developed [...] or motor deficit Component Latest Ref Rng 05/18/2023 05/23/2024 Testosterone Total 264.0 - 916.0 ng/dL 420.2 264.6 SHBG 11.2 - 78.1 nmol/L 72.7 66.0 Free Testosterone (pg/mL) 52.0 - 280.0 pg/mL 50.5 (L) 33.3 (L) Free Testosterone (%) 1.2 1.3 Albumin 3.5 - 5.0 g/dL 3.9 3.7 IGF 1 24 - 236 ng/mL 90 IGF 1 Z Score Calculation -0.3 Free T4 0.8 - 1.7 ng/dL 1.2 1.5 TSH 0.40 - 4.20 uIU/mL 3.42 3.34 FSH, PEDIATRIC mIU/mL 9.9 (H) LH 1.7 - 8.6 mIU/mL 7.82 12 (H) Prolactin 3.4 - 15.2 ng/mL 10.2 19.0 (H) ACTH 7.2 - 63 pg/mL 4.07 (L) Cortisol 8.80 Human GH 0.03 - 2.5 ng/mL 2.95 (H) Component Latest Ref Rng 05/18/2023 05/23/2024 Glucose 74 - 99 mg/dL 227 (H) 206 (H) BUN 8 - 23 mg/dL 22 27 (H) Creatinine 0.80 - 1.30 mg/dL 0.97 1.16 BUN/Creatinine Ratio 23 23 Sodium 136 - 145 mmol/L 138 138 Potassium 3.7 - 4.8 mmol/L 4.4 4.5 Chloride 97 - 107 mmol/L 103 102 CO2 22 - 29 mmol/L 24 23 Anion Gap 6 - 16 mmol/L 11 13 Calcium 8.9 - 10.2 mg/dL 9.3 9.5 Total Protein 6.3 - 7.9 g/dL 7.2 7.2 Albumin 3.5 - 5.2 g/dL 3.9 3.6 AST, Plasma 10 - 50 U/L 45 30 ALT, Plasma 10 - 50 U/L 38 37 Alkaline Phosphatase 40 - 115 U/L 245 (H) 196 (H) Total Bilirubin, 0.2 - 1.1 mg/dL 0.8 0.8 EGFR mL/min/1.73m*2 82.9 66.5 WBC 3.70 - 10.30 10*3/uL 1.58 (L) [...] Ratio 6 LDL Calculated <100 mg/dL 82 Hemoglobin A1C <5.7% Non-Diabetic 7.4 9.5 Discussion/Summary 1) T2DM - high A1C/FS, no hypoglycemia, continue Jardiance 10 mg daily Encourage more activity Encouraged stopping metformin for 4 weeks to see if it helps with the weight gain or not History of stopping Jardiance for few weeks with no help with weight gain in 02/2024 Humalog 75/25 26 units with breakfast and 26 units with supper If you don't eat then should not take insulin If you eat half meal then take half dose insulin If you eat less meal, then should take less insulin Check finger stick (FS) three times a day (before each meal) and 2-3 hours after meal If Finger Stick < 100 then reduce insulin by 5 units If Finger Stick 150 - 200 then increase insulin by 2 units If Finger Stick 201 - 250 then increase insulin by 4 units If Finger Stick 251 - 300 then increase insulin by 6 units If Finger Stick 301 - 350 then increase insulin by 8 units If Finger Stick > 350 then increase insulin by 10 units Finger stick per meal should be 100 - 160 Finger stick 2 - 3 hours after meal should be 120 - 180 If finger stick 2 hours after meal < 120, then you must snack (peanut butter and cracker or protein bar) If finger stick 2 hours after meal 180 - 250, then you can take insulin by 2 units If finger stick 2 hours after meal 251 - 300, then you can take insulin by 4 units If finger stick 2 hours after meal 301 - 350, then you can take insulin by 6 units If finger stick 2 hours after meal > 350, then you can take insulin by 8-10 units 2) 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 Follow up with PCP. Plan Continue metformin, Jardiance and insulin regimen as documented above Should stop metformin for 4 weeks to see if it helps for the weight gain or not Lab for weight loss and diabetes RTC 6 months I called him, but could not reach to him. He must discuss elevated alk phos with GI. 05/30/2024 documented in this encounter Plan of Treatment Upcoming Encounters Date Type Department Care Team (Late st Contact Info) Description 12/16/2024 12:00 PM EST Office Visit [facility] Endocrinology [address], [address] [place] [address] Jason Romero MD [address] [place] [address] 12/30/2024 1:30 PM EST Office Visit [facility] [address], [address] [place] [address] Vivian Macias S, OD [address] [facility] [address] [place] [address] Scheduled Referrals Name Type Priority Associated Diagnoses Order Schedule Ambulatory Referral to [facility] Sensor Education Outpatient Referral Routine Type 2 diabetes mellitus with hyperglycemia, with long-term current use of insulin ([facility]) Expected: 06/06/2024, Expires: 11/23/2025 documented as of this encounter Procedures Procedure Name Priority Date/Time Associated Diagnosis Comments FREE T4, PLASMA Routine 05/23/2024 12:16 PM EDT Type 2 diabetes mellitus with hyperglycemia, with long-term current use of insulin ([facility]) Weight loss POCT GLYCOSYLATED HEMOGLOBIN (HGB A1C) Routine 05/23/2024 10:49 AM EDT Type 2 diabetes mellitus with hyperglycemia, with long-term current use of insulin ([facility]) documented in this encounter Results * (ABNORMAL) Luteinizing hormone (05/23/2024 12:16 PM EDT) Luteinizing Hormone 12(H) 1.7 - 8.6 mIU/mL 05/23/2024 2:20 PM EDT [facility] Blood Venous blood specimen / Unknown [...] BLOOD ORDERABLES Final Result Performing Organization Address City/[facility]/ZIP Co de Phone Number [facility] [address] [place] [address] * (ABNORMAL) FSH, Sensitive (05/23/2024 12:16 PM EDT) FSH, PEDIATRIC 9.5(H) mIU/mL 06/01/2024 7:07 PM EDT [facility]) Comment: This test was developed and its performance characteristics determined by [facility]. It has not been cleared or approved by the Food and Drug Administration. Reference Range: Adult Males (20 - 50y): 2.0 - 9.2 Blood Venous blood specimen / Unknown Venipuncture / Unknown 05/23/2024 12:16 PM EDT 05/23/2024 12:17 PM EDT Narrative [facility]) - 06/01/2024 7:07 PM EDT Performed at: ??01 - [employer] [address] [place] [address] ??[id number] Dairy Associate: Emir Bran MD, Phone: ??[phone] Jason Romero MD LAB BLOOD ORDERABLES Final Result Performing Organization Address City/[facility]/ZIP Co de Phone Number [facility] ([facility]) * (ABNORMAL) ACTH (05/23/2024 12:16 PM EDT) ACTH 4.07(L) 7.2 - 63 pg/mL 05/23/2024 2:17 PM EDT [facility] Blood Venous blood specimen / Unknown Venipuncture / Unknown 05/23/2024 12:16 PM EDT 05/23/2024 12:17 PM EDT Jason Romero MD LAB BLOOD ORDERABLES Final Result Performing Organization Address [facility] Co de Phone Number [facility] [address] [place] [address] * Cortisol (05/23/2024 12:16 PM EDT) Cortisol 8.80 Before 10am: 3.7 - 19.4. After 5pm: 2.9 - 17.3 ug/dL 05/23/2024 2:43 PM EDT [facility] Comment:Testing performed on Robert Contact Lens Blocker, standardized against FPC Reference Standard concentration values assigned by LC-MS/MS and verified by BCR 192 and BCR 193 certified reference materials. Blood Venous blood specimen / Unknown Venipuncture / Unknown 05/23/2024 12:16 PM EDT 05/23/2024 12:17 PM EDT Jason Romero MD LAB REF LAB BLOOD AND FLUID ORD Final Result Performing Organization Address [facility] de Phone Number [facility] [address] [place] [address] * (ABNORMAL) Growth hormone (05/23/2024 12:16 PM EDT) Human Growth Hormone 2.95(H) 0.03 - 2.5 ng/mL 05/23/2024 2:31 PM EDT [facility] Blood Venous blood specimen / Unknown Venipuncture / Unknown 05/23/2024 12:16 PM EDT 05/23/2024 12:17 PM EDT Narrative [facility] - 05/23/2024 2:31 PM EDT Performed by [employer]ona electrochemiluminescent immunoassay which is traceable to the [facility] IRP ([facility] 98/574). Results obtained with different test [...] Reference: ??Cuong CHANDRA et al. Endocr Pract. 2019;25(11):0810-6479 Children < 20 years: All Stimulation Tests > or = 10 ng/mL Concentrations above these thresholds usually exclude the diagnosis of growth hormone deficiency. The typical response to GH Suppression (Glucose Tolerance) Testing in healthy patients within two hours after a 75g oral glucose load: GH < 1.0 ng/mL usually excludes the diagnosis of acromegaly. Reference: ??Deb De La Paz, et al. ??JCEM 2013, ?? 99: ??7312 - [phone] Jason Romero MD LAB BLOOD ORDERABLES Final Result Performing Organization Address City/State/[facility] Co de Phone Number [facility] [address] [place] [address] * Insulin-Like Growth Factor 1 W (05/23/2024 12:16 PM EDT) IGF 1 (Insulin-Like Growth Factor 1) 90 24 - 236 ng/mL 05/27/2024 4:48 PM EDT [facility] ([place]) IGF 1 Z Score Calculation -0.3 05/27/2024 4:48 PM EDT [facility] ([facility]) Blood Venous blood specimen / Unknown Venipuncture / Unknown 05/23/2024 12:16 PM EDT 05/23/2024 12:17 PM EDT Narrative [facility] ([place]) - 05/27/2024 4:48 PM EDT INTERPRETIVE INFORMATION: IGF 1 Z-SCORE CALCULATION A Z score is the number of standard deviations a given result is above (positive score) or below (negative score) the age- and sex-adjusted population mean. ??Results that are within the IGF-1 reference interval will have a Z score between -2.0 and +2.0. Performed By: [facility] [address] [place] [id number] [employer] Research Engineer: Murray Johns MD, PhD CLIA Number: [id number] Jason Romero MD LAB BLOOD ORDERABLES Final Result Performing Organization Address City/[facility] Co de Phone Number [facility] ([place]) [address] [place] [address] * (ABNORMAL) Prolactin (05/23/2024 12:16 PM EDT) Pathologist [facility] Prolactin, Serum 19.0(H) 3.4 - 15.2 ng/mL 05/23/2024 2:55 PM EDT [facility] Blood Venous blood specimen / Unknown Venipuncture / Unknown 05/23/2024 12:16 PM EDT 05/23/2024 12:17 PM EDT Narrative [facility] - 05/23/2024 2:55 PM EDT Performed by [employer] electrochemiluminescent immunoassay which is traceable to the Prolactin 3rd IRP (WHO 84/500). Results obtained with different test methods or kits cannot be used interchangeably. Jason Romero MD LAB BLOOD ORDERABLES Final Result [facility] [address] [place] [address] * Free T4, Plasma (05/23/2024 12:16 PM EDT) Free T4, Plasma 1.5 0.8 - 1.7 ng/dL 05/23/2024 2:31 PM EDT [facility] Blood Venous blood specimen / Unknown Venipuncture / Unknown 05/23/2024 12:16 PM EDT 05/23/2024 12:17 PM EDT us Jason Romero MD LAB BLOOD ORDERABLES Final Result Performing Organization Address City/[facility]/ZIP Co de Phone Number [facility] [address] [place] [address] * TSH (05/23/2024 12:16 PM EDT) Thyroid Stimulating Hormone, Plasma 3.34 0.40 - 4.20 uIU/mL 05/23/2024 2:31 PM EDT [facility] Blood Venous blood specimen / Unknown Venipuncture / Unknown 05/23/2024 12:16 PM EDT 05/23/2024 12:17 PM EDT Jason Romero MD LAB BLOOD ORDERABLES Final Result Performing Organization Address [facility] Co de Phone Number [facility] [address] [place] [address] * (ABNORMAL) Comprehensive metabolic panel (05/23/2024 12:16 PM EDT) Glucose, Plasma 206(H) 74 - 99 mg/dL 05/23/2024 2:31 PM EDT [facility] BUN, Plasma 27(H) 8 - 23 mg/dL 05/23/2024 2:31 PM EDT [facility] Creatinine, Plasma 1.16 0.80 - 1.30 mg/dL 05/23/2024 2:31 PM EDT [facility] BUN/Creatinine Ratio 23 05/23/2024 2:31 PM EDT [facility] Sodium, Plasma 138 136 - 145 mmol/L 05/23/2024 2:31 PM EDT [facility] Potassium, Plasma 4.5 3.7 - 4.8 mmol/L 05/23/2024 2:31 PM EDT [facility] Chloride, Plasma 102 97 - 107 mmol/L 05/23/2024 2:31 PM EDT [facility] CO2, Plasma 23 22 - 29 mmol/L 05/23/2024 2:31 PM EDT [facility] Anion Gap 13 6 - 16 mmol/L 05/23/2024 2:31 PM EDT [facility] Total Calcium, Plasma 9.5 8.9 - 10.2 mg/dL 05/23/2024 2:31 PM EDT [facility] Total Protein 7.2 6.3 - 7.9 g/dL 05/23/2024 2:31 PM EDT [facility] Albumin, Plasma 3.6 3.5 - 5.2 g/dL 05/23/2024 2:31 PM EDT [facility] AST, Plasma 30 10 - 50 U/L 05/23/2024 2:31 PM EDT [facility] Comment:Hemolyzed, result ma y be falsely increased. ALT, Plasma 37 10 - 50 U/L 05/23/2024 2:31 PM EDT [facility] Alkaline Phosphatase, Plasma 196(H) 40 - 115 U/L 05/23/2024 2:31 PM EDT [facility] Total Bilirubin, Plasma 0.8 0.2 - 1.1 mg/dL 05/23/2024 2:31 PM EDT [facility] eGFRcr 66.5 mL/min/1.7 3m*2 05/23/2024 2:31 PM EDT [facility] Comment:Reported eGFRcr in m L/min/1.73m2 is based the CKD-EPI 2020 equation that does not use a race coefficient. Blood Venous blood specimen / Unknown Venipuncture / Unknown 05/23/2024 12:16 PM EDT 05/23/2024 12:17 PM EDT Jason Romero MD LAB BLOOD ORDERABLES Final Result [facility] [address] [place] [address] * POCT glycosylated hemoglobin (Hb A1C) (05/23/2024 10:49 AM EDT) POCT Hemoglobin A1C 9.5 <5.7% Non-Diabe tic [facility] Kit Lot Number [id number] [facility] Kit Expiration Date 03/04/2026 [facility] Blood Venous blood specimen / Unknown 05/23/2024 10:49 AM EDT Jason Romero MD POINT OF CARE TEST ENTER/ED IT ORDERABLES Final Result [facility] [address] [place] [address] documented in this encounter Visit Diagnoses Diagnosis Type 2 diabetes mellitus with hyperglycemia, with long-term current use of insulin ([facility])- Primary Weight loss Loss of weight documented in this encounter Additional Health Concerns Infection Onset Date Last Indicated Resolved Time 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
--- OUTSIDE RECORDS SUMMARY | 2024-09-18 10:20 | XMS_ITS | Encounter Summary ---
Author Organization [facility] Address [address] [place] [address] Care Team Providers Care Field Cane Scale Clerk Name Role Phone Rocky Almanzar MD Primary Care Provider [phone] Encounter Details Date Type Department Care Team (Latest Contact Info) Description 02/20/2022 Travel Social History Tobacco Use Types Packs/Day Years Used Date Smoking Tobacco: Former Cigarettes Q uit: 2004 Smokeless Tobacco: Never Alcohol Use Standard Drinks/Week Comments Yes 1 (1 standard drink = 0.6 oz pure alcohol) Alcoholic Drinks/day: Consumes alcohol occasionally Sex and Gender Information Value Date Recorded Sex Assigned at Not on file Legal Sex Male 7:34 PM EDT Gender Identity Not on file Sexual Orientation Not on file COVID-19 Exposure Response Date Recorded In the last 10 days, have yo u been in contact with someone who was confirmed or suspected to have Coronavirus/COVID-19? No / Unsure 02/20/2022 10:01 AM EDT documented as of this encounter Plan of Treatment Upcoming Encounters Date Type Department Care Team (Late st Contact Info) Description 12/16/2024 12:00 PM EST Office Visit [facility] Endocrinology [address], [address] [place] [address] Jason Romero MD [address] [place] [address] 12/30/2024 1:30 PM EST Office Visit [facility] [address], [address] [place] [address] Vivian Macias S, OD [address] [place] [address] documented as of this encounter Visit Diagnoses Not on filedocumented in this encounter Additional Health Concerns Infection Onset Date Last Indicated Resolved Time MRSA 03/30/2021 03/30/2021 Assessment Noted Time A fall risk assessment has been complete d for the patient 02/20/2022 10:17 AM EDT documented as of this encounter Care Teams Field Cane Scale Clerk Relationship Specialty Start Date End Date Rocky Almanzar MD [address] [place] [address] PCP - General 03/18/21 documented as of this encounter
--- OUTSIDE RECORDS SUMMARY | 2024-09-18 10:20 | XMS_ITS | Encounter Summary ---
Author Organization [facility] Address [address] [place] [address] Care Team Providers Care Corporate Learning Consultant Name Role Phone Rocky Almanzar MD Primary Care Provider [phone] Reason for Visit * Reason Onset Date Comments HCN - Rx Refill Request 11/10/2021 Encounter Details Date Type Department Care Team (Late st Contact Info) Description 11/10/2021 Telephone [facility] Endocrinology [address], [address] [place] [address] Jason Romero MD [address] [facility] [address] [place] [address] HCN - Rx Refill Request Social History Tobacco Use Types Packs/Day Years Used Date Smoking Tobacco: Former Smokeless Tobacco: Never Alcohol Use Standard Drinks/Week Comments Yes 1 (1 standard drink = 0.6 oz pure alcohol) Alcoholic Drinks/day: Consumes alcohol occasionally Sex and Gender Information Value Date Recorded Sex Assigned at Not on file Legal Sex Male 7:34 PM EDT Gender Identity Not on file Sexual Orientation Not on file COVID-19 Exposure Response Date Recorded In the last month, have you been in contact with someone who was confirmed or suspected to have Coronavirus / COVID-19? No / Unsure 10/11/2021 3:05 PM EST documented as of this encounter Miscellaneous Notes * Telephone Encounter - Karoline Levine - 11/10/2021 11:15 AM EST Medication Refill Request Medication Name & Dosage: Metformin 500 mg Preferred Pharmacy & Location: Clinic Pharmacy Days of medication remaining (if under 3 days please chichi as urgent): Best contact number and optimal time of day to reach caller: Additional comments/information from caller: Note: Please do not reply to this message. Follow-up communication and further actions as a result of this message need to be communicated with the patient directly, if the patient is not active onMyChart. If the patient is active on MyChart, they will receive notification of the communication/outcome via MyChart. documented in this encounter Plan of Treatment Upcoming Encounters Date Type Department Care Team (Late st Contact Info) Description 12/16/2024 12:00 PM EST Office Visit [facility] Endocrinology [address] [facility], [address] [place] [phone] Jason Romero MD [address] [facility] [address] [place] [address] 12/30/2024 1:30 PM EST Office Visit [facility] [address] , [address] [place] [address] Vivian Macias S, OD [address] [place] [address] documented as of this encounter Visit Diagnoses Diagnosis Type 2 diabetes mellitus with other specified complication, with long-term current use of insulin ([facility]) documented in this encounter Additional Health Concerns Infection Onset Date Last Indicated Resolved Time MRSA 03/30/2021 03/30/2021 Assessment Noted Time A fall risk assessment has been complete d for the patient 10/11/2021 3:35 PM EST documented as of this encounter Care Teams Corporate Learning Consultant Relationship Specialty Start Date End Date Rocky Almanzar MD [address] [place] [address] PCP - General 03/18/21 documented as of this encounter
--- OUTSIDE RECORDS SUMMARY | 2024-09-18 10:20 | XMS_ITS | Encounter Summary ---
Author Organization [facility] Address [address] [place] [address] Care Team Providers Care Oil Furnace Installer Name Role Phone Rocky Almanzar MD Primary Care Provider [phone] Reason for Visit * Reason Comments Follow-up Type 2 DM Encounter Details Date Type Department Care Team (Late st Contact Info) Description 11/16/2022 1:20 PM EST Office Visit [facility] Endocrinology [address] [place] [address] Jason Romero MD [address] [place] [address] Type 2 diabetes mellitus without complication, with long-term current use of insulin ([facility]) (Primary Dx) Social History Tobacco Use Types Packs/Day Years Used Date Smoking Tobacco: Former Cigarettes Q uit: 2005 Smokeless Tobacco: Never Alcohol Use Standard Drinks/Week [...] suspected to have Coronavirus/COVID-19? No / Unsure 11/16/2022 1:05 PM EST documented as of this encounter Last Filed Vital Signs Vital Sign Reading Time Taken Comments Blood Pressure 124/76 11/16/2022 1:10 PM EST Pulse 85 11/16/2022 1:10 PM EST Temperature - - Respiratory Rate - - Oxygen Saturation - - Inhaled Oxygen Concentration - - Weight 73.4 kg (161 lb 13.1 oz) 11/16/2022 1:10 PM EST Height 165.1 cm (5' 5 ) 11/16/2022 1:10 PM EST Body Mass Index 26.93 11/16/2022 1:10 PM EST documented in this encounter Miscellaneous Notes * Progress Notes - Amrita Miles MD - 11/16/2022 1:20 PM EST Chief complaint: T2DM HPI Jose Luis Trevino is a 72 y.o. male who presents for follow up. No illness or hospitalizations since previous visit. PMHx significant for Hemochromatosis, T2DM, HLD and AF #Diabetes Mellitus 2: - Last visit 02/2022 - Complications include: none - HA1C today is 7.4 (from 8.4 on 02/2022) FS 2-3 times a day 110 - 190 - Current treatment includes Humalog 75/25 26 units BID, Metformin 500 mg BID and Jardiance 10 mg daily - Failed/Discontinued meds: bydoreon and janumet - does check blood glucose at home, ranging from 110-190 - Hypoglycemia awareness: intact - denies recent hypoglycemic events - Compliance at present is estimated to be good. - Retinopathy Evaluation: UTD with eye exam, no reported retinopathy - Neuropathy Evaluation: Denies Neuropathy - Nephropathy: no evidence of microalbuminuria on previous labs - ASCVD: no stroke or heart attack. Review of Systems Constitutional: Negative. HENT: Negative. Respiratory: Negative. Cardiovascular: Negative. Genitourinary: Negative. Musculoskeletal: Negative. Neurological: Negative. Hematological: Negative. Psychiatric/Behavioral: Negative. The following portions of the chart were reviewed this encounter and updated as appropriate: Past Medical History: Diagnosis Date Allergy status to unspecified drugs, medicaments and biological substances History of seasonal allergies Cataract Diabetes mellitus (CMS/HCC) Fatty (change of) liver, not elsewhere classified [...] of urinary calculi History of renal calculi Type 2 diabetes mellitus (CMS/HCC) Past Surgical History: Procedure Laterality Date APPENDECTOMY N/A Appendectomy from [facility] CATARACT EXTRACTION Left 09/05/2021 Dr. Null, [id number] CATARACT EXTRACTION Right 10/03/2021 [facility] [employer] CATARACT EXTRACTION, BILATERAL CATH ABLATION N/A Catheter ablation from [facility] ENDOMETRIAL ABLATION N/A Endometrial ablation from [facility] KNEE SURGERY N/A Knee Surgery from [facility] LITHOTRIPSY N/A Lithotripsy from [facility] OTHER SURGICAL HISTORY N/A Skull Excision from [facility] OTHER SURGICAL HISTORY N/A Prostate ablation cryosurgery from [facility] TONSILLECTOMY N/A Tonsillectomy from [facility] Social History Tobacco Use Smoking status: Former Types: Cigarettes Quit date: 2004 Years since quittin.0 Smokeless tobacco: Never Vaping Use Vaping Use: Never used Substance Use Topics Alcohol use: Yes Alcohol/week: 1.0 - 2.0 standard drink Types: 1 - 2 Cans of beer per week Comment: Alcoholic Drinks/day: Consumes alcohol occasionally Drug use: Never Comment: Drug use: No drug use Family History Problem Relation Name Age of Onset COPD Father Diabetes Father Ovarian cancer Mother Allergies Allergen Reactions Cephalexin Itching and Unknown Immunization History Administered Date(s) Administered Hep A, Adult 07/31/2012, 03/03/2013 Influenza, Unspecified 09/22/2021 Influenza, high-dose, quadrivalent 08/16/2020 Moderna COVID-19 Vaccine (Line Director) 12+ years 11/15/2020, 12/14/2020, 09/28/2021 Moderna COVID-19 Vaccine Bivalent Booster 6+ years 09/20/2022 Pneumococcal Polysaccharide PPV23 08/13/2018 Current Outpatient Medications Medication Instructions Aspirin Buf,MqUasf-PzHrtn-ToV, 81 MG tablet 1 tab(s) orally once a day atenolol (Tenormin) 25 MG tablet Take 1 tablet daily cholecalciferol (Vitamin D-3) 25 MCG (1000 UT) tablet 1 tab(s) orally once a day ezetimibe (Zetia) 10 MG tablet fluticasone (Flonase) 50 MCG/ACT nasal spray As needed insulin lispro protamine-insulin lispro (HumaLOG MIX 75/25 KWIKPEN) (75-25) 100 UNIT/ML inj pen Inject 26 units tid, titrate as directed to MDD of 100 units Jardiance 10 mg, Oral, Every morning levothyroxine (Synthroid, Levoxyl) 25 MCG tablet 1 tab(s) orally once a day metFORMIN (Glucophage) 500 MG tablet TAKE ONE TABLET BY MOUTH TWICE DAILY --TAKE WITH FOOD-- ofloxacin (Ocuflox) 0.3 % ophthalmic solution 1 drop, Left Eye, 3 times daily (0600, 1200 & 1800) pen needle, diabetic (B-D UF III MINI PEN NEEDLES) 31G X 5 MM misc use two per day to inject insulin pravastatin (PRAVACHOL) 20 mg, Oral, Daily prednisoLONE acetate (Pred-Forte) 1 % ophthalmic suspension instill 1 drop into surgery eye THREE TIMES DAILY AFTER surgery. USE DIRECTED AFTER visit. --SHAKE WELL BEFORE USE-- sildenafil (VIAGRA) 100 mg, Oral, Daily, as directed Visit Vitals BP 124/76 (BP Location: Right arm, Patient Position: Sitting, BP Cuff Size: Large adult) Pulse 85 Ht 1.651 m (5' 5 ) Wt 73.4 kg (161 lb 13.1 oz) BMI 26.93 kg/m?? Smoking Status Former BSA 1.83 m?? Physical Exam Constitutional: Appearance: Normal appearance. Eyes: Pupils: Pupils are equal, round, and reactive to light. Cardiovascular: Rate and Rhythm: Normal rate and regular rhythm. Pulses: Normal pulses. Heart sounds: Normal heart sounds. Pulmonary: Effort: Pulmonary effort is normal. Breath sounds: Normal breath sounds. Abdominal: General: Abdomen is flat. Bowel sounds are normal. Palpations: Abdomen is soft. Musculoskeletal: General: Normal range of motion. Cervical back: Normal range of motion. Skin: General: Skin is warm and dry. Capillary Refill: Capillary refill takes less than 2 seconds. Neurological: General: No focal deficit present. Mental Status: He is alert and oriented to person, place, and time. Psychiatric: Mood and Affect: Mood normal. Assessment and Plan: Diabetes Mellitis Type 2, is uncontrolled (improved) - A1C today is 7.4 (from 8.4 on 02/2022). - Current treatment includes Humalog 75/25 26 units BID, Metformin 500 mg BID and Jardiance 10 mg daily - Failed/Discontinued meds: kris - Patient isn't interested in CGM at this time PLAN: A1c is acceptable for his age. No Rx changes. Humalog 75/25 26 units with breakfast and [...] Finger stick per meal should be 100 * 160 Finger stick 2 hours after meal should be 120 * 180 If finger stick 2 hours after meal > 180, then increase insulin on each scale by 2 units If finger stick 2 hours after meal < 120, then decrease insulin on each scale by 2 units If you want to get exercise (gym) or having more than usual activities, then reduce insulin by 20 -30 % (14 units) or snack (peanut butter + cracker, protein bar) before exercise Other co-morbidities Hemochromatosis- Dx 2010 by liver biopsy. He used to get phlebotomy every 2 - 3 months if ferritin levels >100. Ferritin 02/2022 is 62. Discharged from GI clinic AF- was taking verapamil, flecainide and Xarelto, had ablation in 05/23 RTC in 6 months. Amrita Miles MD PGY4 Endocrinology Fellow A total time of 30 minutes was spent by addressing the current illness, reviewing records (prior imaging, lab work, etc), and formulating a plan. The patient is agreeable to the plan and all pertinent questions were answered. documented in this encounter Plan of Treatment Upcoming Encounters Date Type Department Care Team (Late st Contact Info) Description 12/16/2024 12:00 PM EST Office Visit [facility] Endocrinology [address], [address] [place] [address] Jason Romero MD [address] [place] [address] 12/30/2024 1:30 PM EST Office Visit [facility] [address], [address] [place] [address] Vivian Macias S, OD [address] [place] [address] documented as of this encounter Procedures Procedure Name Priority Date/Time Associated Diagnosis Comments POCT GLYCOSYLATED HEMOGLOBIN (HGB A1C) Routine 11/16/2022 1:17 PM EST Type 2 diabetes mellitus without complication, with long-term current use of insulin ([facility]) documented in this encounter Results * (ABNORMAL) Lipid panel (05/18/2023 11:18 AM EDT) Cholesterol, Plasma 167 <200 mg/dL 05/18/2023 2:30 PM EDT [facility] Comment: Cholesterol Reference Range (age >17 years): Desirable? <200 mg/dL Borderline? 200 to 239 mg/dL Undesirable? >239 mg/dL HDL 29(L) >=40 mg/dL 05/18/2023 2:30 PM EDT [facility] Comment: HDL Cholesterol Reference Ranges (age >17 years): Female, acceptable? > or = 50 mg/dL Male, acceptable? > or = 40 mg/dL Triglycerides, Plasma 345(H) <150 mg/dL 05/18/2023 2:30 PM [facility] Comment: Triglyceride Reference Range (age >17 years): Desirable:?? <150 mg/dL Borderline high:?? 150 to 199 mg/dL High:?? 200 to 499 mg/dL Very high:?? >499 mg/dL Increased risk of pancreatitis:?? >1000 mg/dL Cholesterol/HDL Ratio 6 05/18/2023 2:30 PM EDT [facility] LDL, Calculated 82 <100 mg/dL 2:30 PM EDT [facility] Comment: LDL Cholesterol Reference Range (age >17 years): Optimal: ??<100 mg/dL Near or above optimal: 100 - 129 mg/dL Borderline high: 130 - 159 mg/dL High: 160 - 189 mg/dL Very high: >189 mg/dL LDL Cholesterol Reference Range (age <18 years): Desirable: ? <110 mg/dL Borderline: ?110 - 129 mg/dL Undesirable: ?? >130 mg/dL LDL Cholesterol is calculated using the Benítez/NIH equation. Fasting greater than or equal to 12 hours? No 05/18/2023 2:30 PM EDT [facility] Blood Venous blood specimen / Unknown Venipuncture / Unknown 05/18/2023 11:18 AM EDT 05/18/2023 11:19 AM EDT us Jason Romero MD LAB BLOOD ORDERABLES Final Result [facility] [address] [place] [address] * (ABNORMAL) Comprehensive metabolic panel (05/18/2023 11:18 AM EDT) [facility] Glucose, Plasma 227(H) 74 - 99 mg/dL 05/18/2023 2:30 PM EDT [facility] BUN, Plasma 22 8 - 23 mg/dL 05/18/2023 2:30 PM EDT [facility] Creatinine, Plasma 0.97 0.80 - 1.30 mg/dL 05/18/2023 2:30 PM EDT [facility] BUN/Creatinine Ratio 23 05/18/2023 2:30 PM EDT [facility] Sodium, Plasma 138 136 - 145 mmol/L 05/18/2023 2:30 PM EDT [facility] Potassium, Plasma 4.4 3.7 - 4.8 mmol/L 05/18/2023 2:30 PM EDT [facility] Chloride, Plasma 103 97 - 107 mmol/L 05/18/2023 2:30 PM EDT [facility] CO2, Plasma 24 22 - 29 mmol/L 05/18/2023 2:30 PM EDT [facility] Anion Gap 11 6 - 16 mmol/L 05/18/2023 2:30 PM EDT [facility] Total Calcium, Plasma 9.3 8.9 - 10.2 mg/dL 05/18/2023 2:30 PM EDT [facility] Total Protein 7.2 6.3 - 7.9 g/dL 05/18/2023 2:30 PM EDT [facility] Albumin, Plasma 3.9 3.5 - 5.2 g/dL 05/18/2023 2:30 PM EDT [facility] AST, Plasma 45 19 - 48 U/L 05/18/2023 2:30 PM EDT [facility] ALT, Plasma 38 11 - 41 U/L 05/18/2023 2:30 PM EDT [facility] Alkaline Phosphatase, Plasma 245(H) 40 - 115 U/L 05/18/2023 2:30 PM EDT [facility] Total Bilirubin, Plasma 0.8 0.2 - 1.1 mg/dL 05/18/2023 2:30 PM EDT [facility] eGFRcr 82.9 mL/min/1.7 3m*2 05/18/2023 2:30 PM EDT [facility] Comment: Reported eGFRcr in mL/min/1.73m2 is based the CKD-EPI 2021 equation that does not use a race coefficient. Effective 05/31/22 our laboratory changed the eGFR calculation to the CKD-EPI 2021 equation from the previously reported eGFR, based on the MDRD equation. ??For comparisons between the two equations, please see laboratory website: ??[email or web address].itembase/[facility] Blood Venous blood specimen / Unknown Venipuncture / Unknown 05/18/2023 11:18 AM EDT 05/18/2023 11:19 AM EDT Jason Romero MD LAB BLOOD ORDERABLES Final Result Performing Organization Address [facility] Co de Phone Number [facility] [address] [place] [address] * POCT glycosylated hemoglobin (Hb A1C) docked device (11/16/2022 1:17 PM EST) POCT Hemoglobin A1C 7.4 4.4-6.6 % % [facility] Kit Lot Number n/a [facility] Kit Expiration Date n/a [facility] Blood Venous blood specimen / Unknown 11/16/2022 1:17 PM EST Jason Romero MD POINT OF CARE TEST ENTER/ED IT ORDERABLES Final Result Performing Organization Address 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
--- OUTSIDE RECORDS SUMMARY | 2024-09-18 10:20 | XMS_ITS | Encounter Summary ---
Author Organization [facility] Address [address] [place] [address] Care Team Providers Care Magistrate Assistant Name Role Phone Rocky Almanzar MD Primary Care Provider [phone] Reason for Visit * Reason Comments Med Refill Encounter Details Date Type Department Care Team (Late st Contact Info) Description 07/16/2023 Refill [facility] Endocrinology [address] [place] [address] Jason Romero MD [address] [place] [address] Type 2 diabetes mellitus with other specified complication, with long-term current use of insulin ([facility]) Social History Tobacco Use Types Packs/Day Years [...] Telephone Encounter - Jac Ch, PharmD - 07/16/2023 12:17 PM EDT Per protocol, 1 medication(s), ,metformin, has been approved for 30 day supply with 4 refill(s) to Clinic pharmacy. documented in this encounter Plan of Treatment Upcoming Encounters Date Type Department Care Team (Late st Contact Info) Description 12/16/2024 12:00 PM EST Office Visit [facility] Endocrinology [address], [address] [place] [address] Jason Romero MD [address] [place] [address] 12/30/2024 1:30 PM EST Office Visit [facility] [address], [address] [place] [address] Vivian Macias S, OD [address] [place] [address] documented as of this encounter Visit Diagnoses Diagnosis Type 2 diabetes mellitus with other specified complication, with long-term current use of insulin ([facility]) documented in this encounter Additional Health Concerns Infection Onset Date Last Indicated Resolved Time 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
--- OUTSIDE RECORDS SUMMARY | 2024-09-18 10:20 | XMS_ITS | Encounter Summary ---
Author Organization [facility] Address [address] [place] [address] Care Team Providers Care Crop And Soil Technician Name Role Phone Rocky Almanzar MD Primary Care Provider [phone] Encounter Details Date Type Department Care Team (Latest Contact Info) Description 05/18/2023 Travel Social History Tobacco Use Types Packs/Day [...] Description 12/16/2024 12:00 PM EST Office Visit [facility] Endocrinology [address], [address] [place] [phone] Jason Romero MD [address] [place] [address] 12/30/2024 1:30 PM EST Office Visit [facility] [place] [address], [address] [place] [phone] Vivian Macias S, OD [address] [place] [address] documented as of this encounter [...] documented as of this encounter Care Teams Crop And Soil Technician Relationship Specialty Start Date End Date Rocky Almanzar MD [address] [place] [address] PCP - General 03/18/21 documented as of this encounter
--- OUTSIDE RECORDS SUMMARY | 2024-09-18 10:20 | XMS_ITS | Encounter Summary ---
Author Organization [facility] Address [address] [place] [address] Care Team Providers Care Cash Control Specialist Name Role Phone Rocky Almanzar MD Primary Care Provider [phone] Reason for Visit * Reason Comments Med Refill Encounter Details Date Type Department Care Team (Late st Contact Info) Description 03/24/2023 Refill [facility] [address] [place] [address] Jason Romero MD [address] [place] [address] Social History Tobacco Use Types [...] encounter Miscellaneous Notes * Telephone Encounter - Yamini Tabor - 03/26/2023 9:13 AM EDT Refill request does not meet protocol. Sending to clinic for review. Additional info: No BMP/CMP in last 12 months. Protocol not met- triaging to clinic. documented in this encounter Plan of Treatment Upcoming Encounters Date Type Department Care Team (Late st Contact Info) Description 12/16/2024 12:00 PM EST Office Visit [facility] Endocrinology [address], [address] [place] [address] Jason Romero MD [address] [place] [address] 12/30/2024 1:30 PM EST Office Visit [facility] [place] [address], [address] [place] [address] Vivian Macias S, OD [address] [place] [address] documented as of this encounter Visit Diagnoses Not on filedocumented in this encounter Additional Health Concerns Infection Onset Date Last Indicated Resolved Time MRSA 03/30/2021 03/30/2021 Assessment Noted Time A fall risk assessment has been complete d for the patient 01/24/2023 9:21 AM EDT A Body Mass Index follow-up plan has been documented for the patient 01/24/2023 10:31 AM EDT documented as of this encounter Care Teams Cash Control Specialist Relationship Specialty Start Date End Date Rocky Almanzar MD [address] [place] [address] PCP - General 03/18/21 documented as of this encounter
--- OUTSIDE RECORDS SUMMARY | 2024-09-18 10:20 | XMS_ITS | Encounter Summary ---
Author Organization [facility] Address [address] [place] [address] Care Team Providers Care Certified Alcohol Counselor Name Role Phone Rocky Almanzar MD Primary Care Provider [phone] Reason for Visit * Reason Onset Date Comments Med Refill 08/22/2021 Encounter Details Date Type Department Care Team (Late Contact Info) Description 08/22/2021 Refill [facility] [address] [place] [phone] Vivian Donaldson, GREGGE, RD [address] [facility] [address] [place] [address] Social History Tobacco Use Types [...] have Coronavirus / COVID-19? No / Unsure 08/22/2021 2:53 PM EDT documented as of this encounter Plan of Treatment Upcoming Encounters Date Type Department Care Team (Late st Contact Info) Description 12/16/2024 12:00 PM EST Office Visit [facility] [address], [address] [place] [phone] Jason Romero MD [address] [place] [address] 12/30/2024 1:30 PM EST Office Visit [facility] [address], [address] [place] [address] Vivian Macias S, OD [address] [place] [address] documented as of this encounter Visit Diagnoses Not on filedocumented in this encounter Additional Health Concerns Infection Onset Date Last Indicated Resolved Time MRSA 03/30/2021 03/30/2021 Assessment Noted Time A fall risk assessment has been complete d for the patient 08/22/2021 3:05 PM EDT documented as of this encounter Care Teams Certified Alcohol Counselor Relationship Specialty Start Date End Date Rocky Almanzar MD [address] [place] [address] PCP - General 03/18/21 documented as of this encounter
--- OUTSIDE RECORDS SUMMARY | 2024-09-18 10:20 | XMS_ITS | Encounter Summary ---
Author Organization [facility] Address [address] [place] [address] Care Team Providers Care Pet Resort Concierge Name Role Phone Rocky Almanzar MD Primary Care Provider Encounter Details Date Type Department Care Team (Latest Contact Info) Description 10/04/2021 Travel Social History Tobacco Use Types Packs/Day [...] have Coronavirus / COVID-19? No / Unsure 10/04/2021 9:41 AM EST documented as of this encounter Plan of Treatment Upcoming Encounters Date Type Department Care Team (Late st Contact Info) Description 12/16/2024 12:00 PM EST Office Visit [facility] [address], [address] [place] [address] Jason Romero MD [address] [place] [address] 12/30/2024 1:30 PM EST Office Visit [facility] [address], [address] [place] [address] Vivian Macias S, OD [address] [place] [address] documented as of this encounter Visit Diagnoses Not on filedocumented in this encounter Additional Health Concerns Infection Onset Date Last Indicated Resolved Time MRSA 03/30/2021 03/30/2021 Assessment Noted Time A fall risk assessment has been complete d for the patient 10/04/2021 10:40 AM EST documented as of this encounter Care Teams Pet Resort Concierge Relationship Specialty Start Date End Date Rocky Almanzar MD [address] [place] [address] PCP - General 03/18/21 documented as of this encounter
--- OUTSIDE RECORDS SUMMARY | 2024-09-18 10:20 | XMS_ITS | Encounter Summary ---
Author Organization Healthcare Address [address] [place] [address] Care Team Providers Care Legal Project Manager Name Role Phone Rocky Almanzar MD Primary Care Provider [phone] Reason for Visit * Reason Comments Post-op Encounter Details Date Type Department Care Team (Late st Contact Info) Description 09/06/2021 9:30 AM EDT Office Visit [facility] [address] [place] [phone] Rocky Null MD [address] [address] Pseudophakia, left eye (Primary Dx); Cataract, nuclear sclerotic senile, right Social History Tobacco Use Types Packs/Day Years [...] have Coronavirus / COVID-19? No / Unsure 09/06/2021 9:14 AM EDT documented as of this encounter Miscellaneous Notes * Progress Notes - Rocky Null MD - 09/06/2021 9:30 AM EDT Dz/Pf qid; Ofx tid os rtc next wk preop od documented in this encounter Plan of Treatment Upcoming Encounters Date Type Department Care Team (Late st Contact Info) Description 12/16/2024 12:00 PM EST Office Visit [facility] [address], [address] [place] [phone] Jason Romero MD [address] [place] [address] 12/30/2024 1:30 PM EST Office Visit [facility] [address], [address] [place] [address] Vivian Macias S, OD [address] [place] [address] documented as of this encounter Visit Diagnoses Diagnosis Pseudophakia, left eye- Primary Lens replaced by other means Cataract, nuclear sclerotic senile, right documented in this encounter Additional Health Concerns Infection Onset Date Last Indicated Resolved Time MRSA 03/30/2021 03/30/2021 Assessment Noted Time A fall risk assessment has been complete d for the patient 09/06/2021 9:28 AM EDT documented as of this encounter Care Teams Legal Project Manager Relationship Specialty Start Date End Date Rocky Almanzar MD [address] [place] [address] PCP - General 03/18/21 documented as of this encounter
--- OUTSIDE RECORDS SUMMARY | 2024-09-18 10:20 | XMS_ITS | Encounter Summary ---
Author Organization Healthcare Address [address] [place] [address] Care Team Providers Care Computator Name Role Phone Rocky Almanzar MD Primary Care Provider [phone] Reason for Visit * Reason Comments Diabetes Hypothyroidism Encounter Details Date Type Department Care Team (Late st Contact Info) Description 02/20/2022 10:20 AM EDT [facility] [address] [place] [address] Jason Romero MD [address] [place] [address] Hyperglycemia (Primary Dx); Type 2 diabetes mellitus without complication, with long-term current use of insulin ([facility]); Hyperlipidemia, unspecified hyperlipidemia type Social History Tobacco Use Types Packs/Day Years [...] AM EDT documented as of this encounter Last Filed Vital Signs Vital Sign Reading Time Taken Comments Blood Pressure 116/83 02/20/2022 10:09 AM EDT Pulse 76 02/20/2022 10:09 AM EDT Temperature - - Respiratory Rate - - Oxygen Saturation - - Inhaled Oxygen Concentration - - Weight 76.7 kg (169 lb 1.5 oz) 02/20/2022 10:09 AM EDT Height 165.1 cm (5' 5 ) 02/20/2022 10:09 AM EDT Body Mass Index 28.14 02/20/2022 10:09 AM EDT documented in this encounter Miscellaneous Notes * Progress Notes - Jason Romero MD - 02/20/2022 10:20 AM EDT Chief Complaint Patient presents today for Uncontrolled T2DM ?? History of Present Illness Mr. Trevino is a 71 yo male with Hemochromatosis, T2DM, HLD History of MSSA infection of his right ear cochlear implant (2014 - 2015), having leukopenia Ferritin 121 (08/21), 80 (04/22), 42 (03/23), phlebotomy every 2 - 3 months if ferritin levels >100 History of A fib, was taking verapamil, flecainide and Xarelto, had ablation in 05/23. ?? T2DM (no response to BYDUREON - (exenatide extended-release) and Janumet Soliqua 100/33 (insulin glargine & Lixisenatide injection: 100 Units/mL & 33 mcg/mL) - not accepted by insurance He is maradiaga and hasn't changed his activity level ?? DM regimen Humalog 75/25: 26 - 32 (usually 28) units BID or TID with each meal + adjustment Metformin 500 mg BID Jardiance 10 mg daily since 02/15/2022 ?? A1C 8.4 FS 3 times a day, 108 - 344 (average 190), No Hypoglycemia ?? Diet the same, occasionally juice; alcohol occasionally, 3-4 beers/week Eats 3 meals a day 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, 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 Weight -stable since 2018 (165 - 175) He is now a non-smoker ?? EYE - 02/2022, no retinopathy (cataract removal in 09/2021) HTN - acceptable BP, taking Atenolol HDL - LDL 62 TG 572 (08/2021), takes Zetia, pravastatin since 12/2021 He had been taking Praluent 75 mg/ml every 2 weeks 02/21 - 2020, but insurance didn't approve, had elevated TG and normal LFT, then added pravastatin 20 mg daily 12/2021 Kidney - Cr normal (GFR >??60) Neuropathy - + tingling, on the soles of his feet only, minimal ?? Subclinical Hypothyroidism Levothyroxine 25 mcg daily, taking everyday, TSH 3.5 (09/20), 2.56 (04/22), 3.4 (07/24), 2.97 (08/22/2021) He denies symptoms of hyper/hypothyroidism ?? Takes zetia, vitamin D and levothyroxine ?? Review of System History of SOB, sees director of regulatory affairs and PCP, ETT was unremarkable 12/2021 His liver is stable and can use statin, should watch LFT (history of hemochromatosis) History of COVID-19 in 09/2020 History of mild local reaction to Prulent (redness and itching) was told that can use anti histamine Denies nausea, vomiting, chest pain, abdominal pain, headache, vision problem, hearing problem, dizziness, diarrhea or constipation ?? Hemochromatosis: 2010 liver biopsy from [facility] [place] showed active chronic hepatitis withmoderate stainable iron [...] 67), CBC (Hb 15.1 WBC 1900 Plt [id number]) BMP normal; A1C 8.4% He has hemochromatosis, LDL 120, and goal LDL <??70, We added Praluent 140 mg every 2 weeks, because of hemochromatosis we can not start statin, but GI says no contraindication ?? PAF/atrial flutter, HTN, DM, and HLP. He had been tried on Flecainide but had atrial fibrillation refractory to this. He underwent atrial fibrillation ablation 06/04/19 and Pneumonia in 10/23 Visit Vitals BP 116/83 Pulse 76 Ht 1.651 m (5' 5 ) Wt 76.7 kg (169 lb 1.5 oz) BMI 28.14 kg/m?? Smoking Status Former Smoker BSA 1.88 m?? Physical exam General appearance well developed [...] deficit Component Latest Ref Rng & Units 08/22/2021 Cholesterol <200 mg/dL 177 HDL >=40 mg/dL 33 (L) Triglycerides <150 mg/dL 572 (H) Cholesterol/HDL Ratio 5 TSH 0.40 - 4.20 uIU/mL 2.97 Free T4 0.8 - 1.7 ng/dL 1.0 Vit D, 25-Hydroxy 20.0 - 80.0 ng/mL 47.3 Direct LDL Cholesterol <100 mg/dL 62 Discussion/Summary 71 yo man with Hemochromatosis, T2DM and subclinical hypothyroidism. ?? 1) T2DM - high A1C/FS, no hypoglycemia, should increase the insulin based on sliding scale, continue metformin 500 mg BID He has started Jardiance 10 mg daily in 02/2022, which helps reducing BGs Encourage more activity, diabetic diet, lose weight ?? Humalog 75/25 26 units with breakfast and 26 units with lunch and 26 units with supper If you don't eat then should not take insulin If you eat half meal then take half dose insulin If you eat less meal, then should take less insulin ?? Check finger stick (FS) three times a day (before each meal) If Finger Stick <??100 then reduce insulin by 4 units If Finger Stick 160 - 230 then increase insulin by 2 units If Finger Stick 231 - 300 then increase insulin by 4 units If Finger Stick > 300 then increase insulin by 6 units ?? Finger stick per meal should be 100 ??* 160 Finger stick 2 hours after meal should be 120 ??* 180 If finger stick 2 hours after meal >??180, then increase insulin on each scale by 2 units If finger stick 2 hours after meal <??120, then decrease insulin on each scale by 2 units ?? If you want to get exercise (gym) or having more than usual activities, then reduce insulin by 20 -30 % (14 units) or snack (peanut butter + cracker, protein bar) before exercise Jardiance (SGLT2 inhibition) leads to greater urinary excretion of sugar Jardiance 10 mg daily Benefits: - Decreases in body weight - Decrease in systolic blood pressure (SBP) - Reduces cardiovascular risk - Reduces risk of kidney damage due to diabetes Disadvantages: - Signs of hypotension should be monitored - Monitoring of volume status (renal impairment, with low SBP, on diuretics, or elderly) - Mycotic infections (>= 6.4% in women, ~3% to 4% in men) - Nasopharyngitis Stop and Call us with Urinary tract infection (UTI) symptoms (dysuria, frequency and fever), orthostatic dizziness or foot ulcer You can call PCP to get treatment for UTI Check Blood pressure (BP) at home daily If BP < 110 or had orthostatic dizziness, then stop Jardiance ?? 2) Eye - follow ticketer ?? 3) HTN - continue atenolol ?? 4) Kidney - no CKD ?? 5) HDL - he was taking Zetia and Praluent, insurance did not approve Praluent, had normal LFT but elevated TG, then added pravastatin 20 mg daily 12/2021, will check CMP to rule out statin induced hepatitis with underlying hemochromatosis SGLT2 inhibitors can increase LDL cholesterol because of reduced clearance of LDL from the circulation and greater lipolysis of triglyceride-rich lipoproteins. ?? 6) Subclinical Hypothyroidism - continue levothyroxine 25 mcg daily ?? 7) Hemochromatosis: GI discharged him ?? 8) Vitamin D deficiency - takes vitamin D Plan Jardiance 10 mg daily Check CMP ?? RTC 6 months A total time of 32 minutes was spent by addressing the current illness, reviewing records (prior imaging, lab work, etc), and formulating a plan. The patient is agreeable to the plan and all pertinent questions were answered. I called him but could not reach to him. I sent a letter telling that he LFT is unremarkable 02/21/2022. Component Latest Ref Rng & Units 02/20/2022 Glucose 74 - 99 mg/dL 146 (H) BUN 8 - 23 mg/dL 14 Creatinine 0.80 - 1.30 mg/dL 1.04 BUN/Creatinine Ratio 13 Sodium 136 - 145 mmol/L 142 Potassium 3.7 - 4.8 mmol/L 5.0 (H) Chloride 97 - 107 mmol/L 105 CO2 22 - 29 mmol/L 26 Anion Gap 6 - 16 mmol/L 11 Calcium 8.9 - 10.2 mg/dL 10.0 Total Protein 6.3 - 7.9 g/dL 7.8 Albumin 3.5 - 5.2 g/dL 4.3 AST, Plasma 19 - 48 U/L 37 ALT, Plasma 11 - 41 U/L 35 Alkaline Phosphatase 40 - 115 U/L 203 (H) Total Bilirubin, Plasma 0.2 - 1.1 mg/dL 0.8 EGFR >60 mL/min/1.73m*2 >60 eGFR, if AFR/AM >60 mL/min/1.73m*2 >60 POCT Hemoglobin A1C 4.4-6.6 % % 8.4 documented in this encounter Plan of Treatment Upcoming Encounters Date Type Department Care Team (Late st Contact Info) Description 12/16/2024 12:00 PM EST [facility] [address], [address] [place] [address] Jason Romero MD [address] [facility] [address] [place] [phone] 12/30/2024 1:30 PM EST Office Visit [facility] [address], [address] [place] [address] Vivian Macias S, OD [address] [place] [address] documented as of this encounter Procedures Procedure Name Priority Date/Time Associated Diagnosis Comments POCT GLYCOSYLATED HEMOGLOBIN (HGB A1C) Routine 02/20/2022 10:21 AM EDT Hyperglycemia documented in this encounter Results * (ABNORMAL) Comprehensive metabolic panel (02/20/2022 10:54 AM EDT) Glucose, Plasma 146(H) 74 - 99 mg/dL 02/20/2022 3:02 PM EDT [facility] BUN, Plasma 14 8 - 23 mg/dL 02/20/2022 3:02 PM EDT [facility] Creatinine, Plasma 1.04 0.80 - 1.30 mg/dL 02/20/2022 3:02 PM EDT [facility] BUN/Creatinine Ratio 13 02/20/2022 3:02 PM EDT [facility] Sodium, Plasma 142 136 - 145 mmol/L 02/20/2022 3:02 PM EDT [facility] Potassium, Plasma 5.0(H) 3.7 - 4.8 mmol/L 02/20/2022 3:02 PM EDT [facility] Comment:Reference range for Serum potassium is 0.2 to 0.5 mmol/L higher than Plasma range. Chloride, Plasma 105 97 - 107 mmol/L 02/20/2022 3:02 PM EDT [facility] CO2, Plasma 26 22 - 29 mmol/L 02/20/2022 3:02 PM EDT [facility] Anion Gap 11 6 - 16 mmol/L 02/20/2022 3:02 PM EDT [facility] Total Calcium, Plasma 10.0 8.9 - 10.2 mg/dL 02/20/2022 3:02 PM EDT [facility] Total Protein 7.8 6.3 - 7.9 g/dL 02/20/2022 3:02 PM EDT [facility] Albumin, Plasma 4.3 3.5 - 5.2 g/dL 02/20/2022 3:02 PM EDT [facility] AST, Plasma 37 19 - 48 U/L 02/20/2022 3:02 PM EDT [facility] ALT, Plasma 35 11 - 41 U/L 02/20/2022 3:02 PM EDT [facility] Alkaline Phosphatase, Plasma 203(H) 40 - 115 U/L 02/20/2022 3:02 PM EDT [facility] Total Bilirubin, Plasma 0.8 0.2 - 1.1 mg/dL 02/20/2022 3:02 PM EDT [facility] eGFR >60 >60 mL/min/1.7 3m*2 02/20/2022 3:02 PM EDT [facility] Comment:eGFR = estimated GFR ; eGFR units = mL/min/1.73 sq meters Chronic Kidney Disease is considered if eGFR <60 mL/min/1.73 sq meters Kidney failure is considered if eGFR is <15 mL/min/1.73 sq meters. eGFR assumes steady state plasma creatinine concentration; not applicable if renal function is rapidly changing or patient is on dialysis. eGFR, if AFR/AM >60 >60 mL/min/1.7 3m*2 02/20/2022 3:02 PM EDT [facility] Comment:eGFR = estimated GFR ; eGFR units = mL/min/1.73 sq meters Chronic Kidney Disease is considered if eGFR <60 mL/min/1.73 sq meters Kidney failure is considered if eGFR is <15 mL/min/1.73 sq meters. eGFR assumes steady state plasma creatinine concentration; not applicable if renal function is rapidly changing or patient is on dialysis. Blood Venous blood specimen / Unknown Venipuncture / Unknown 02/20/2022 10:54 AM EDT 02/20/2022 11:31 AM EDT Jason Romero MD LAB BLOOD ORDERABLES Final Result Performing Organization Address City/[facility] Co de Phone Number [facility] [address] [place] [address] * POCT glycosylated hemoglobin (Hb A1C) docked device (02/20/2022 10:21 AM EDT) POCT Hemoglobin A1C 8.4 4.4-6.6 % % [facility] Kit Lot Number n/a [facility] Kit Expiration Date n/a [facility] Blood Venous blood specimen / Unknown 02/20/2022 10:21 AM EDT Jason Romero MD POINT OF CARE TEST ENTER/ED IT ORDERABLES Final Result [facility] [address] [place] [address] documented in this encounter Visit Diagnoses Diagnosis Hyperglycemia- Primary Other abnormal glucose Type 2 diabetes mellitus without complication, with long-term current use of insulin ([facility]) Hyperlipidemia, unspecified hyperlipidemia type documented in this encounter Additional Health Concerns Infection Onset Date Last Indicated Resolved Time 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
--- OUTSIDE RECORDS SUMMARY | 2024-09-18 10:20 | XMS_ITS | Encounter Summary ---
Author Organization Healthcare Address [address] [place] [address] Care Team Providers Care Senior Qa Engineer Name Role Phone Rocky Almanzar MD Primary Care Provider [phone] Reason for Visit * Reason Onset Date Comments Med Refill 03/15/2022 Encounter Details Date Type Department Care Team (Late st Contact Info) Description 03/15[facility]2022 [facility] [address] [facility], [address] [place] [phone] Vivian Donaldson, GREGGE, RD [address] [facility] [address] [place] [address] Social History Tobacco Use Types [...] Visit [facility] [address], [address] [place] [address] Jason Romero MD [address] [place] [phone] 12/30/2024 1:30 PM EST Office Visit [facility] [address], [address] [place] [address] Vivian Macias, OD [address] [place] [address] documented as of this encounter Visit Diagnoses Not on filedocumented in this encounter Additional Health Concerns Infection Onset Date Last Indicated Resolved Time 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
--- OUTSIDE RECORDS SUMMARY | 2024-09-18 10:20 | XMS_ITS | Encounter Summary ---
Author Organization [facility] Address [address] [place] [address] Care Team Providers Care Ballpoint Pen Cartridge Tester Name Role Phone Rocky Almanzar MD Primary Care Provider [phone] Encounter Details Date Type Department Care Team (Latest Contact Info) Description 11/16/2022 Travel Social History Tobacco Use Types Packs/Day [...] PM EST documented as of this encounter Plan of Treatment Upcoming Encounters Date Type Department Care Team (Late st Contact Info) Description 12/16/2024 12:00 PM EST [facility] [address], [address] [place] [address] Jason Romero MD [address] [place] [address] 12/30/2024 1:30 PM EST Office Visit [facility] [address], [address] [place] [address] Vivian Macias S, OD [address] [place] [address] documented as of this encounter Visit Diagnoses Not on filedocumented in this encounter Additional Health Concerns Infection Onset Date Last Indicated Resolved Time 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
--- OUTSIDE RECORDS SUMMARY | 2024-09-18 10:20 | XMS_ITS | Encounter Summary ---
Author Organization [facility] Address [address] [place] [address] Care Team Providers Care Sheet Combining Operator Name Role Phone Rocky Almanzar MD Primary Care Provider [phone] Reason for Visit * Reason Comments Med Refill Encounter Details Date Type Department Care Team (Late Contact Info) Description 03/13/2022 Refill [facility] Endocr[facility]ology [address], [address] [place] [address] Jason Romero MD [address] [place] [address] Type 2 diabetes mellitus with other specified complication, with long-term current use of insulin ([facility]) Social History Tobacco Use Types Packs/Day Years [...] 12:00 PM EST Office Visit [facility] Endocrinology [address], [address] [place] [phone] Jason Romero MD [address] [place] [phone] 12/30/2024 1:30 PM EST Office Visit [facility] [place] [address], [address] [place] [phone] Vivian Macias S, OD [address] [place] [address] documented as of this encounter Visit Diagnoses Diagnosis Type 2 diabetes mellitus with other specified complication, with long-term current use of insulin ([facility]) documented in this encounter Additional Health Concerns Infection Onset Date Last Indicated Resolved Time MRSA 03/30/2021 03/30/2021 Assessment Noted Time A fall risk assessment has been complete d for the patient 02/20/2022 10:17 AM EDT documented as of this encounter Care Teams Sheet Combining Operator Relationship Specialty Start Date End Date Rocky Almanzar MD [address] [place] [address] PCP - General 03/18/21 documented as of this encounter
--- OUTSIDE RECORDS SUMMARY | 2024-09-18 10:20 | XMS_ITS | Encounter Summary ---
Author Organization [facility] Address [address] [place] [address] Care Team Providers Care Garage Door Installer Name Role Phone Rocky Almanzar MD Primary Care Provider Reason for Visit * Reason Comments Diabetes Encounter Details Date Type Department Care Team (Late st Contact Info) Description 05/18/2023 10:20 AM EDT [facility] [address] [place] [address] Jason Romero MD [address] [place] [address] Type 2 diabetes mellitus without complication, with long-term current use of insulin (CMS/HCC) (Primary Dx); Subclinical hypothyroidism; Hereditary hemochromatosis (CMS/HCC) Social History Tobacco Use Types Packs/Day Years [...] Sign Reading Time Taken Comments Blood Pressure 103/66 05/18/2023 10:06 AM EDT Pulse 76 05/18/2023 10:06 AM EDT Temperature - - Respiratory Rate - - Oxygen Saturation - - Inhaled Oxygen Concentration - - Weight 69.8 kg (153 lb 14.1 oz) 023 10:06 AM EDT Height 165.1 cm (5' 5 ) 05/18/2023 10:0 6 AM EDT Body Mass Index 25.61 05/18/2023 10:06 AM EDT documented in this encounter Miscellaneous Notes * Progress Notes - Jason Romero MD - 05/18/2023 10:20 AM EDT Chief Complaint Uncontrolled T2DM History [...] Jardiance 10 mg daily since 02/15/2022 A1C 7.4 FS 2 times a day, 130 - 268 (average 170), No Hypoglycemia Diet the same, occasionally juice; alcohol occasionally, 3-4 beers/week Eats 3 meals a day 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, 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[employer] Weight - lost 177 to 153 He is now a non-smoker EYE - 02/2023, no retinopathy (cataract removal in 09/2021) HTN [...] 2.97 (08/22/2021) He denies symptoms of hyper/hypothyroidism Takes zetia, statin, vitamin D and levothyroxine History of fatigue, recommended ruling out sleep apnea Review of System History of SOB, sees application security engineer and PCP, ETT was unremarkable 12/2021 His liver is stable and can use statin, should watch LFT (history of hemochromatosis) History of COVID-19 in 09/2020 History of mild local reaction to Prulent (redness and itching) was told that can use anti histamine Denies nausea, vomiting, chest pain, abdominal pain, headache, vision problem, hearing problem, dizziness, diarrhea or constipation Hemochromatosis: 2010 liver biopsy from [facility] in [place] showed active chronic hepatitis withmoderate stainable iron [...] 67), CBC (Hb 15.1 WBC 1900 Plt 164152) BMP normal; A1C 8.4% He has hemochromatosis, LDL 120, and goal LDL < 70, We added Praluent 140 mg every 2 weeks, because of hemochromatosis we can not start statin, but GI says no contraindication PAF/atrial flutter, HTN, DM, and HLP. He had been tried on Flecainide but had atrial fibrillation refractory to this. He underwent atrial fibrillation ablation 06/04/19 and Pneumonia in 10/23 T2DM (no response to BYDUREON - (exenatide extended-release) and Janumet Soliqua 100/33 (insulin glargine & Lixisenatide injection: 100 Units/mL & 33 mcg/mL) - not accepted by insurance Visit Vitals BP 103/66 Pulse 76 Ht 1.651 m (5' 5 ) Wt 69.8 kg (153 lb 14.1 oz) BMI 25.61 kg/m?? Smoking Status Former BSA 1.79 m?? Physical exam General appearance well developed [...] Component Latest Ref Rng & Units 08/22/2021 02/20/2022 Glucose 74 - 99 mg/dL 146 [...] >60 eGFR, if AFR/AM >60 mL/min/1.73m*2 >60 Cholesterol <200 mg/dL 177 HDL >=40 mg/dL 33 (L) Triglycerides <150 mg/dL 572 (H) Cholesterol/HDL Ratio 5 POCT Hemoglobin A1C 4.4-6.6 % % 8.0 (A) 8.4 TSH 0.40 - 4.20 uIU/mL 2.97 Free T4 0.8 - 1.7 ng/dL 1.0 Vit D, 25-Hydroxy 20.0 - 80.0 ng/mL 47.3 Direct LDL Cholesterol <100 mg/dL 62 Discussion/Summary 1) T2DM - high A1C/FS, no hypoglycemia, continue metformin 500 mg BID and Jardiance 10 mg daily Encourage more activity, diabetic diet, lose weight Humalog 75/25 26 units with breakfast and [...] by 2 units 2) EYE - follow tram inspector 3) HTN - continue atenolol 4) Kidney - no CKD 5) HDL [...] encourage having sleep studies, ruling out sleep apnea Will rule out hypogonadism with history of DM and hemochromatosis Plan Continue metformin, Jardiance and insulin adjustment Lab today for thyroid, DM and fatigue (ruling out hypogonadism with fatigue and hemochromatosis) RTC 6 months A total time of 40 minutes was spent by addressing the current illness, reviewing records (prior imaging, lab work, etc), and formulating a plan. The patient is agreeable to the plan and all pertinent questions were answered. I called him 05/18/2023, should contact monorail car operator or GI for abnormal LFT/WBC (has local doctor) Component Latest Ref Rng & Units 05/18/2023 [...] Ratio 6 LDL Calculated <100 mg/dL 82 documented in this encounter Plan of Treatment Upcoming Encounters Date Type Department Care Team (Late st Contact Info) Description 12/16/2024 12:00 PM EST Office Visit [facility]ie [facility] Endocrinology [address], [address] [place] [address] Jason Romero MD [address] [place] [address] 12/30/2024 1:30 PM EST Office Visit [facility] [place] [address], [address] [place] [address] Vivian Macias S, OD [address] [place] [address] documented as of this encounter Procedures Procedure Name Priority Date/Time Associated Diagnosis Comments FREE T4, PLASMA Routine 05/18/2023 11:18 AM EDT Subclinical hypothyroidism POCT GLYCOSYLATED HEMOGLOBIN (HGB A1C) Routine 05/18/2023 10:20 AM EDT Type 2 diabetes mellitus without complication, with long-term current use of insulin ([facility]) documented in this encounter Results * Prolactin (05/18/2023 11:18 AM EDT) Prolactin, Serum 10.2 3.4 - 15.2 ng/mL 05/18/2023 2:30 PM EDT [facility] Blood Venous blood specimen / Unknown Venipuncture / Unknown 05/18/2023 11:18 AM EDT 05/18/2023 11:19 AM EDT Narrative [facility] - 05/18/2023 2:30 PM EDT Performed by Jona electrochemiluminescent immunoassay which is traceable to the Prolactin 3rd IRP (WHO 84/500). Results obtained with different test methods or kits cannot be used interchangeably. Jason Romero MD LAB BLOOD ORDERABLES Final Result [facility] [address] [place] [address] * Luteinizing hormone (05/18/2023 11:18 AM EDT) Luteinizing Hormone 7.82 1.7 - 8.6 mIU/mL 05/18/2023 2:20 PM EDT [facility] Blood Venous blood specimen / Unknown Venipuncture / Unknown 05/18/2023 11:18 AM EDT 05/18/2023 11:19 AM EDT Narrative [facility] - 05/18/2023 2:20 PM EDT ??LH Male Reference Ranges: ? Dar Stage 1: ?< 1.1 mIU/mL ? Dar Stage 2: ?< 3.7 mIU/mL ? Dar Stage 3: ?< 6.5 mIU/mL ? Dar Stage 4-5: ?0.9 - 8.3 mIU/mL ?? Jason Romero MD LAB BLOOD ORDERABLES Final Result [facility] [address] [place] [address] * (ABNORMAL) FSH, Sensitive (05/18/2023 11:18 AM EDT) FSH, PEDIATRIC 9.9(H) mIU/mL 05/24/2023 6:08 PM EDT [facility] ([facility]) Comment: This test was developed and its performance characteristics determined by [facility]. It has not been cleared or approved by the Food and Drug Administration. Reference Range: Adult Males (20 - 50y): 2.0 - 9.2 Blood Venous blood specimen / Unknown Venipuncture / Unknown 05/18/2023 11:18 AM EDT 05/18/2023 11:19 AM EDT Narrative [facility]) - 05/24/2023 6:08 PM EDT Performed at: ??01 - [facility] [address] [place] [address] ??[id number] Otolaryngology Nurse: Emir Bran MD, Phone: ??[phone] Jason Romero MD LAB BLOOD ORDERABLES Final Result [facility]) * (ABNORMAL) CBC W/O Differential (05/18/2023 11:18 AM EDT) WBC Count 1.58(L) 3.70 - 10.30 10*3/uL LAB HEMATOLOGY METHOD 05/18/2023 2:14 PM EDT [facility] RBC Count 5.32 4.60 - 6.10 10*6/uL LAB HEMATOLOGY METHOD 05/18/2023 2:14 PM EDT [facility] HGB 16.7 13.7 - 17.5 g/dL LAB HEMATOLOGY METHOD 05/18/2023 2:14 PM EDT [facility] HCT 48.6 40.0 - 51.0 % LAB HEMATOLOGY METHOD 05/18/2023 2:14 PM EDT [facility] Platelet Count 178 155 - 369 10*3/uL LAB HEMATOLOGY METHOD 05/18/2023 2:14 PM EDT [facility] MCV 91 79 - 98 fL LAB HEMATOLOGY METHOD 05/18/2023 2:14 PM EDT [facility] MCH 31.4 26.0 - 32.0 pg LAB HEMATOLOGY METHOD 05/18/2023 2:14 PM EDT [facility] MCHC 34.4 30.7 - 35.5 g/dL LAB HEMATOLOGY METHOD 05/18/2023 2:14 PM EDT [facility] RDW 13.6 11.5 - 14.5 % LAB HEMATOLOGY METHOD 05/18/2023 2:14 PM EDT [facility] MPV 9.9 8.8 - 12.5 fL LAB HEMATOLOGY METHOD 05/18/2023 2:14 PM EDT [facility] nRBC 0.0 <=0.0 per 100 WBCs LAB HEMATOLOGY METHOD 05/18/2023 2:14 PM EDT [facility] Blood Venous blood specimen / Unknown Venipuncture / Unknown 05/18/2023 11:18 AM EDT 05/18/2023 11:19 AM EDT us Jason Romero MD LAB BLOOD ORDERABLES Final Result Performing Organization Address City/[facility]/ZIP Co de Phone Number [facility] [address] [place] [address] * Free T4, Plasma (05/18/2023 11:18 AM EDT) Free T4, Plasma 1.2 0.8 - 1.7 ng/dL 05/18/2023 2:30 PM EDT [facility] Blood Venous blood specimen / Unknown Venipuncture / Unknown 05/18/2023 11:18 AM EDT 05/18/2023 11:19 AM EDT us Jason Romero MD LAB BLOOD ORDERABLES Final Result Performing Organization Address City/[facility] Co de Phone Number [facility] [address] [place] [address] * TSH (05/18/2023 11:18 AM EDT) Thyroid Stimulating Hormone, Plasma 3.42 0.40 - 4.20 uIU/mL 05/18/2023 2:30 PM EDT [facility] Blood Venous blood specimen / Unknown Venipuncture / Unknown 05/18/2023 11:18 AM EDT 05/18/2023 11:19 AM EDT us Jason Romero MD LAB BLOOD ORDERABLES Final Result Performing Organization Address City/[facility]/ZIP Co de Phone Number [facility] [address] [place] [address] * POCT glycosylated hemoglobin (Hb A1C) docked device (05/18/2023 10:20 AM EDT) POCT Hemoglobin A1C 7.4 4.4-6.6 % % [facility] Kit Lot Number [id number] [facility] Kit Expiration Date 03/2025 [facility] Blood Venous blood specimen / Unknown 05/18/2023 10:20 AM EDT Jason Romero MD POINT OF CARE TEST ENTER/ED IT ORDERABLES Final Result [facility] [address] [place] [address] documented in this encounter Visit Diagnoses Diagnosis Type 2 diabetes mellitus without complication, with long-term current use of insulin (CMS/HCC)- Primary Subclinical hypothyroidism Other specified acquired hypothyroidism Hereditary hemochromatosis (CMS/HCC) Hereditary hemochromatosis documented in this encounter Additional Health Concerns Infection Onset Date Last Indicated Resolved Time MRSA 03/30/2021 03/30/2021 Assessment Noted Time A fall risk assessment has been complete d for the patient 01/24/2023 9:21 AM EDT A Body Mass Index follow-up plan has been documented for the patient 05/18/2023 10:43 AM EDT documented as of this encounter Care Teams Garage Door Installer Relationship Specialty Start Date End Date Rocky Almanzar MD [address] [place] [address] PCP - General 03/18/21 documented as of this encounter
--- OUTSIDE RECORDS SUMMARY | 2024-09-18 10:20 | XMS_ITS | Encounter Summary ---
Author Organization [facility] Address [address] [place] [address] Care Team Providers Care Cereal Popper Name Role Phone Rocky Almanzar MD Primary Care Provider [phone] Encounter Details Date Type Department Care Team (Latest Contact Info) Description 11/29/2022 Travel Social History Tobacco Use Types Packs/Day [...] suspected to have Coronavirus/COVID-19? No / Unsure 11/29/2022 9:55 AM EST documented as of this encounter Plan of Treatment Upcoming Encounters Date Type Department Care Team (Late st Contact Info) Description 12/16/2024 12:00 PM EST Office Visit [facility] Endocrinology [address], [address] [place] [address] Jason Romero MD [address] [place] [address] 12/30/2024 1:30 PM EST Office Visit [facility] [place] [address], [address] [place] [address] Vivian Macias S, OD [address] [place] [address] documented as of this encounter Visit Diagnoses Not on filedocumented in this encounter Additional Health Concerns Infection Onset Date Last Indicated Resolved Time MRSA 03/30/2021 03/30/2021 Assessment Noted Time A fall risk assessment has been complete d for the patient 11/16/2022 1:15 PM EST A Body Mass Index follow-up plan has been documented for the patient 12/05/2022 4:27 AM EST documented as of this encounter Care Teams Cereal Popper Relationship Specialty Start Date End Date Rocky Almanzar MD [address] [place] [address] PCP - General 03/18/21 documented as of this encounter
--- OUTSIDE RECORDS SUMMARY | 2024-09-18 10:20 | XMS_ITS | Encounter Summary ---
Author Organization [facility] Address [address] [place] [address] Care Team Providers Care Bench Press Operator Name Role Phone Rocky Almanzar MD Primary Care Provider [phone] Encounter Details Date Type Department Care Team (Latest Contact Info) Description 05/17/2023 Travel Social History Tobacco Use Types Packs/Day [...] Visit [facility] Endocrinology [address], [address] [place] [phone] Jason Romero MD [address] [place] [address] 12/30/2024 1:30 PM EST Office Visit [facility] [place] [address], [address] [place] [address] Vivian Macias S, OD [address] [place] [address] documented as of this encounter [...] documented as of this encounter Care Teams Bench Press Operator Relationship Specialty Start Date End Date Rocky Almanzar MD [address] [place] [address] PCP - General 03/18/21 documented as of this encounter
--- OUTSIDE RECORDS SUMMARY | 2024-09-18 10:20 | XMS_ITS | Encounter Summary ---
Author Organization [facility] Address [address] [place] [address] Care Team Providers Care Float Builder Name Role Phone Rocky Almanzar MD Primary Care Provider [phone] Encounter Details Date Type Department Care Team (Latest Contact Info) Description 01/24/2023 Travel Social History Tobacco Use Types Packs/Day [...] suspected to have Coronavirus/COVID-19? No / Unsure 01/24/2023 9:12 AM EDT documented as of this encounter Plan of Treatment Upcoming Encounters Date Type Department Care Team (Late st Contact Info) Description 12/16/2024 12:00 PM EST Office Visit [facility] Endocrinology [address], [address] [place] [address] Jason Romero MD [address] [place] [address] 12/30/2024 1:30 PM EST Office Visit [facility] [address], [address] [place] [address] Vivian Macias S, OD [address] [place] [address] documented as of this encounter [...] documented as of this encounter Care Teams Float Builder Relationship Specialty Start Date End Date Rocky Almanzar MD [address] [place] [address] PCP - General 03/18/21 documented as of this encounter
--- OUTSIDE RECORDS SUMMARY | 2024-09-18 10:20 | XMS_ITS | Encounter Summary ---
Author Organization [facility] Address [address] [place] [address] Care Team Providers Care Medical Coding Auditor Name Role Phone Rocky Almanzar MD Primary Care Provider Encounter Details Date Type Department Care Team (Latest Contact Info) Description 02/13/2022 Travel Social History Tobacco Use Types Packs/Day [...] suspected to have Coronavirus/COVID-19? No / Unsure 02/13/2022 9:39 AM EDT documented as of this encounter Plan of Treatment Upcoming Encounters Date Type Department Care Team (Late st Contact Info) Description 12/16/2024 12:00 PM EST Office Visit [facility]ie Cho [facility] Endocrinology [address], [address] [place] [address] Jason Romero MD [address] [place] [address] 12/30/2024 1:30 PM EST Office Visit [facility] [place] [address], [address] [place] [address] Vivian Macias S, OD [address] [place] [address] documented as of this encounter Visit Diagnoses Not on filedocumented in this encounter Additional Health Concerns Infection Onset Date Last Indicated Resolved Time MRSA 03/30/2021 03/30/2021 Assessment Noted Time A fall risk assessment has been complete d for the patient 02/13/2022 10:02 AM EDT documented as of this encounter Care Teams Medical Coding Auditor Relationship Specialty Start Date End Date Rocky Almanzar MD [address] [place] [address] PCP - General 03/18/21 documented as of this encounter
--- OUTSIDE RECORDS SUMMARY | 2024-09-18 10:20 | XMS_ITS | Encounter Summary ---
Author Organization [facility] Address [address] [place] [address] Care Team Providers Care Lead Software Qa Engineer Name Role Phone Rocky Almanzar MD Primary Care Provider [phone] Reason for Visit * Reason Onset Date Comments HCN - Patient Message 08/22/2021 Encounter Details Date Type Department Care Team (Late st Contact Info) Description 08/22/2021 Telephone PFE SCHEDULING [address] [place] [address] Rocky Null MD [address] [address] HCN - Patient Message Social History Tobacco Use Types Packs/Day Years [...] encounter Miscellaneous Notes * Telephone Encounter - Luis Jacksontejinder Burris - 08/22/2021 9:25 AM EDT Patient Phone Message Reason for Call: [facility] calling in Doucette. Durosol eye drop. Generic brand called in with directions do not substitute. Needs clarification Best contact number and optimal time of day to reach caller: DEVIKA [phone] Note: Please do not reply to this [...] 12/16/2024 12:00 PM EST [facility] [address] [facility], [address] [place] [address] Jason Romero MD [address] [facility] [address] [place] [address] 12/30/2024 1:30 PM EST Office Visit [facility] [address] [place] [address] Vivian Macias S, OD [address] [place] [address] documented as of this encounter Visit Diagnoses Not on filedocumented in this encounter Additional Health Concerns Infection Onset Date Last Indicated Resolved Time MRSA 03/30/2021 03/30/2021 Assessment Noted Time A fall risk assessment has been complete d for the patient 08/22/2021 3:05 PM EDT documented as of this encounter Care Teams Lead Software Qa Engineer Relationship Specialty Start Date End Date Rocky Almanzar MD [address] [place] [address] PCP - General 03/18/21 documented as of this encounter
--- OUTSIDE RECORDS SUMMARY | 2024-09-18 10:20 | XMS_ITS | Encounter Summary ---
Author Organization [facility] Address [address] [place] [address] Care Team Providers Care Manager Reliability Name Role Phone Rocky Almanzar MD Primary Care Provider [phone] Reason for Visit * Reason Comments Diabetic Eye Exam Encounter Details Date Type Department Care Team (Late st Contact Info) Description 01/24/2023 9:15 AM EDT Office Visit [facility] [address] [place] [address] Rocky Null MD [address] [address] Diabetes mellitus type 2 without retinopathy (CMS/HCC) (Primary Dx); Pseudophakia, both eyes Social History Tobacco Use Types Packs/Day Years Used Date Smoking Tobacco: Former Cigarettes Q uit: 2004 Smokeless Tobacco: Never Tobacco Cessation:Counseling Given: Not [...] Progress Notes - Rocky Null MD - 01/24/2023 9:15 AM EDT Subjective Chief Complaint Diabetic Eye Exam HPI Diabetic Eye Exam Vision: is blurred for near Diabetes Type: Type 2 and on insulin Comments 72 y o m presents to the clinic today for a yearly Diabetes Mellitus eye exam with a history of epiretinal membrane (ERM) both eyes , pseudophakia both eyes and myopia /astigmatism /presbyopia . A1c>8 and FBS: 180 . Patient states that his vision gets blurry sometimes for near. Denies any flashes/floaters. Defers mrx/glasses. A1c >8; happy w/ vision Last edited by Rocky Null MD on 01/24/2023 10:26 AM. ROS Positive for: Eyes (see hpi) Negative for: Constitutional (fatigue), Gastrointestinal, Neurological, Skin, Genitourinary, Musculoskeletal, HENT, Endocrine, Cardiovascular, Respiratory, Psychiatric, Allergic/Imm, Heme/Lymph Last edited by Tereza Toth on 01/24/2023 9:26 AM. Objective Base Eye Exam Visual Acuity (Snellen - Linear) Right Left Dist sc 20/25-2+2 20/30-2 Dist ph sc NI Near sc J1+ -3 J1+ -3 Tonometry (Tonopen, 9:33 AM) Right Left Pressure 12 11 Pupils Pupils Right PERRL Left PERRL Visual Moore Right Left Full Full Neuro/Psych Oriented x3: Yes Dilation Both eyes: 1% Tropicamide, 2.5% Phenylephrine @ 9:33 AM Slit Lamp and Fundus Exam External Exam Right Left External Normal Normal Slit Lamp Exam Right Left Lids/Lashes Normal for age Normal for age Conjunctiva/Sclera Normal Normal Cornea Clear and compact Clear and compact Anterior Chamber Deep and quiet Deep and quiet Iris Normal pupil size and shape;no nvi Normal pupil size and shape;no nvi Lens panoptix stable panoptix stable Vitreous floaters floaters Fundus Exam Right Left Disc No edema; no vascularization; good color (Otto 78 d Lens) No edema; no vascularization; good color (Otto 78 d Lens) C/D Ratio 0.2 0.2 Macula Normal reflex; without edema Normal reflex; without edema Vessels Perfused; no tortuosity or abnormality Perfused; no tortuosity or abnormality Periphery Attached; no retinal or choroidal lesions Attached; no retinal or choroidal lesions Refraction Manifest Refraction (Auto) Sphere Cylinder [place] Dist VA Right +0.25 +0.75 017 20/20 Left +0.75 +0.75 20/20-2 Assessment/Plan Diagnoses and all orders for this visit: Diabetes mellitus type 2 without retinopathy (CMS/HCC) Pseudophakia, both eyes DM info given; discussed value of regulating blood glucose levels and lifestyle influences Rtc 1 yr ar/mr/dfe ou documented in this encounter Plan of Treatment Upcoming Encounters Date Type Department Care Team (Late st Contact Info) Description 12/16/2024 12:00 PM EST Office Visit [facility] Endocrinology [address], [address] [place] [address] Jason Romero MD [address] [place] [address] 12/30/2024 1:30 PM EST Office Visit [facility] [address], [address] [place] [address] Vivian Macias S, OD [address] [place] [address] documented as of this encounter Visit Diagnoses Diagnosis Diabetes mellitus type 2 without retinopathy (CMS/HCC)- Primary Pseudophakia, both eyes Lens replaced by other means documented in this encounter Additional Health Concerns Infection Onset Date Last Indicated Resolved Time MRSA 03/30/2021 03/30/2021 Assessment Noted Time A fall risk assessment has been complete d for the patient 01/24/2023 9:21 AM EDT A Body Mass Index follow-up plan has been documented for the patient 01/24/2023 10:31 AM EDT documented as of this encounter Care Teams Manager Reliability Relationship Specialty Start Date End Date Rocky Almanzar MD [address] [place] [address] PCP - General 03/18/21 documented as of this encounter
--- OUTSIDE RECORDS SUMMARY | 2024-09-18 10:20 | XMS_ITS | Encounter Summary ---
Author Organization Healthcare Address [address] [place] [address] Care Team Providers Care Geological Engineer Name Role Phone Rocky Almanzar MD Primary Care Provider [phone] Encounter Details Date Type Department Care Team (Late st Contact Info) Description 08/22/2021 Telephone [facility] Diabetes Education [address] [facility], [address] [place] [address] Vivian Donaldson, GREGGE, RD [address] [facility] [address] [place] [address] Social History Tobacco Use Types [...] PM EDT documented as of this encounter Miscellaneous Notes * Telephone Encounter - Vivian Donaldson RD - 08/23/2021 3:33 PM EDT PA has been submitted, awaiting response * Telephone Encounter - Vivian Donaldson RD - 08/23/2021 2:14 PM EDT Alexandra, note this would be a continuation of therapy * Telephone Encounter - Vviian Donaldsno RD - 08/23/2021 2:00 PM EDT [facility] office indicates that Praluent prescription needs ot be sent to [facility] and PA will need to go through [facility], not through [facility]. I have sent the prescription and will await the response before proceeding. Not as I was working through this I see that Repatha is the pre ferred agent in this class for [facility]. * Telephone Encounter - Vivian Donaldson RD - 08/22/2021 4:[address] Romero requested our help in getting Praluent PA renewed for Mr. Trevino. He had abn LFTs, but his hemochromatosis was treated and LFT returned to normal, now pt is concerned that the Praluentwill no longer be covered. I have talked with Kelin at [facility] and she is reviewing the non-coverage letters and will assist. Please direct calls to Vivian for coordination. documented in this encounter Plan of Treatment Upcoming Encounters Date Type Department Care Team (Late st Contact Info) Description 12/16/2024 12:00 PM EST Office Visit [facility] [address], [address] [place] [address] Jason Romero MD [address] [place] [address] 12/30/2024 1:30 PM EST Office Visit [facility] [place] [address], [address] [place] [address] Vivian Macias S, OD [address] [place] [address] documented as of this encounter Visit Diagnoses Not on filedocumented in this encounter Additional Health Concerns Infection Onset Date Last Indicated Resolved Time 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
--- OUTSIDE RECORDS SUMMARY | 2024-09-18 10:20 | XMS_ITS | Encounter Summary ---
Author Organization Healthcare Address [address] [place] [address] Care Team Providers Care Customer Counter Associate Name Role Phone Rocky Almanzar MD Primary Care Provider [phone] Encounter Details Date Type Department Care Team (Hamzah Contact Info) Description 09/01/2021 Abstract [facility] [address] [place] [address] Rocky Null MD [address] [address] Social History Tobacco Use Types Packs/Day Years [...] PM EDT documented as of this encounter Last Filed Vital Signs Vital Sign Reading Time Taken Comments Blood Pressure 117/72 01/13/2021 1:35 PM EST Pulse - - Temperature - - Respiratory Rate - - Oxygen Saturation - - Inhaled Oxygen Concentration - - Weight - - Height - - Body Mass Index - - documented in this encounter Plan of Treatment Upcoming Encounters Date Type Department Care Team (Hamzah Contact Info) Description 12/16/2024 12:00 PM EST [facility] [address], [address] [place] [address] Jason Romero MD [address] [place] [address] 12/30/2024 1:30 PM EST [facility] [place] [address], [address] [place] [address] Vivian Macias S, OD [address] [place] [address] documented as of this encounter Visit Diagnoses Not on filedocumented in this encounter Additional Health Concerns Infection Onset Date Last Indicated Resolved Time MRSA 03/30/2021 03/30/2021 Assessment Noted Time A fall risk assessment has been complete d for the patient 08/22/2021 3:05 PM EDT documented as of this encounter Care Teams Customer Counter Associate Relationship Specialty Start Date End Date Rocky Almanzar MD [address] [place] [address] PCP - General 03/18/21 documented as of this encounter
--- OUTSIDE RECORDS SUMMARY | 2024-09-18 10:20 | XMS_ITS | Encounter Summary ---
Author Organization [facility] Address [address] [place] [address] Care Team Providers Care Deckhand Oyster Dredge Name Role Phone Rocky Almanzar MD Primary Care Provider [phone] Reason for Visit * Reason Comments Med Refill Encounter Details Date Type Department Care Team (Late Contact Info) Description 06/12/2022 Refill [facility] Endocrinology [address] , [address] [place] [address] Jason Romero MD [address] [place] [address] Type 2 diabetes mellitus with other specified complication, with long-term current use of insulin ([facility]) Social History Tobacco Use Types Packs/Day [...] Encounters Date Type Department Care Team (Late Contact Info) Description 12/16/2024 12:00 PM EST Office Visit [facility] Endocrinology [address] , [address] [place] [address] Jason Romero MD [address] [place] [address] 12/30/2024 1:30 PM EST Office Visit [facility] [place] [address], [address] [place] [address] Vivian Macias S, OD [address] [place] [address] documented as of this encounter Visit Diagnoses Diagnosis Type 2 diabetes mellitus with other specified complication, with long-term current use of insulin ([facility]) documented in this encounter Additional Health Concerns Infection Onset Date Last Indicated Resolved Time MRSA 03/30/2021 03/30/2021 Assessment Noted Time A fall risk assessment has been complete d for the patient 02/20/2022 10:17 AM EDT documented as of this encounter Care Teams Deckhand Oyster Dredge Relationship Specialty Start Date End Date Rocky Almanzar MD [address] [place] [address] PCP - General 03/18/21 documented as of this encounter
--- OUTSIDE RECORDS SUMMARY | 2024-09-18 10:20 | XMS_ITS | Encounter Summary ---
Author Organization Healthcare Address [address] [place] [address] Care Team Providers Care Senior Project Coordinator Name Role Phone Rocky Almanzar MD Primary Care Provider [phone] Encounter Details Date Type Department Care Team (Late st Contact Info) Description 09/14/2021 9:30 AM EST Office Visit [facility] [address] [place] [address] Rocky Null MD [address] [address] Cataract, nuclear sclerotic senile, right (Primary Dx); Pseudophakia, left eye Social History Tobacco Use Types Packs/Day Years [...] have Coronavirus / COVID-19? No / Unsure 09/14/2021 9:19 AM EST documented as of this encounter Miscellaneous Notes * Progress Notes - Rocky Null MD - 09/14/2021 9:30 AM EST Patient desires cataract surgery right eye due to painless/progressive loss of vision at distance/near with correction and intolerable glare. Severity: sufficient to interfere with activities of daily living, and/or preventing night driving. Assessment/Plan Pt cleared for cataract surgery right eye. Risks/benefits/alternatives discussed. Other contributory eye diseases ruled out. Visual gain anticipated. Select 18.0/18.5 D TFAT00 ORA: [phone] Taper Dz; stop Bv os documented in this encounter Plan of Treatment Upcoming Encounters Date Type Department Care Team (Late st Contact Info) Description 12/16/2024 12:00 PM EST Office Visit [facility] Endocrinology [address], [address] [place] [address] Jason Romero MD [address] [facility] [address] [place] [address] 12/30/2024 1:30 PM EST Office Visit [facility] [address], [address] [place] [address] Vivian Macias, OD [address] [place] [address] documented as of this encounter Procedures Procedure Name Priority Date/Time Associated Diagnosis Comments OCT, RETINA - OU - BOTH EYES Routine 09/14/2021 10:38 AM EST Cataract, nuclear sclerotic senile, right Pseudophakia, left eye documented in this encounter Results * OCT, Retina - OU - Both Eyes (09/14/2021 10:38 AM EST) Anatomical Region Laterality Modality Head Optical Coherenc e Tomography Narrative 09/14/2021 10:38 AM EST Right Eye Findings include normal observations, normal foveal contour. Left Eye Quality was good. Findings include abnormal foveal contour. Notes right eye (OD): ??Normal left eye (OS): ??Early erm Rocky Null MD OPHTH TOMOGRAPHY Final Result documented in this encounter Visit Diagnoses Diagnosis Cataract, nuclear sclerotic senile, right- Primary Pseudophakia, left eye Lens replaced by other means documented in this encounter Additional Health Concerns Infection Onset Date Last Indicated Resolved Time MRSA 03/30/2021 03/30/2021 Assessment Noted Time A fall risk assessment has been complete d for the patient 09/14/2021 9:41 AM EST documented as of this encounter Care Teams Senior Project Coordinator Relationship Specialty Start Date End Date Rocky Almanzar MD [address] [place] [address] PCP - General 03/18/21 documented as of this encounter
--- OUTSIDE RECORDS SUMMARY | 2024-09-18 10:20 | XMS_ITS | Encounter Summary ---
Author Organization [facility] Address [address] [place] [address] Care Team Providers Care Tie In Machine Operator Name Role Phone Rocky Almanzar MD Primary Care Provider Encounter Details Date Type Department Care Team (Latest Contact Info) Description 09/14/2021 Travel Social History Tobacco Use Types Packs/Day [...] Description 12/16/2024 12:00 PM EST Office Visit [facility] End[facility]ology [address], [address] [place] [address] Jason Romero MD [address] [place] [address] 12/30/2024 1:30 PM EST Office Visit [facility] [place] [address], [address] [place] [address] Vivian Macias S, OD [address] [place] [address] documented as of this encounter Visit Diagnoses Not on filedocumented in this encounter Additional Health Concerns Infection Onset Date Last Indicated Resolved Time MRSA 03/30/2021 03/30/2021 Assessment Noted Time A fall risk assessment has been complete d for the patient 09/14/2021 9:41 AM EST documented as of this encounter Care Teams Tie In Machine Operator Relationship Specialty Start Date End Date Rocky Almanzar MD [address] [place] [address] PCP - General 03/18/21 documented as of this encounter
--- OUTSIDE RECORDS SUMMARY | 2024-09-18 10:20 | XMS_ITS | Encounter Summary ---
Author Organization [facility] Address [address] [place] [address] Care Team Providers Care Cistern Room Working Supervisor Name Role Phone Rocky Almanzar MD Primary Care Provider [phone] Encounter Details Date Type Department Care Team (Latest Contact Info) Description 08/22/2021 Travel Social History Tobacco Use Types Packs/Day [...] Description 12/16/2024 12:00 PM EST Office Visit [facility] Endocrinology [address], [address] [place] [address] Jason Romero MD [address] [place] [address] 12/30/2024 1:30 PM EST Office Visit [facility] [place] [address], [address] [place] [address] Vivian Macias S, OD [address] [place] [address] documented as of this encounter Visit Diagnoses Not on filedocumented in this encounter Additional Health Concerns Infection Onset Date Last Indicated Resolved Time MRSA 03/30/2021 03/30/2021 Assessment Noted Time A fall risk assessment has been complete d for the patient 08/22/2021 3:05 PM EDT documented as of this encounter Care Teams Cistern Room Working Supervisor Relationship Specialty Start Date End Date Rocky Almanzar MD [address] [place] [address] PCP - General 03/18/21 documented as of this encounter
--- OUTSIDE RECORDS SUMMARY | 2024-09-18 10:20 | XMS_ITS | Encounter Summary ---
Author Organization [facility] Address [address] [place] [address] Care Team Providers Care Plywood Scarfer Tender Name Role Phone Rocky Almanzar MD Primary Care Provider [phone] Reason for Visit * Reason Comments Med Refill Encounter Details Date Type Department Care Team (Late Contact Info) Description 01/16/2023 Refill [facility] Endocrinology [address] [place] [address] Jason Romero MD [address] [place] [address] Type 2 diabetes mellitus with other specified complication, with long-term current use of insulin ([facility]) (Primary Dx) Social History Tobacco [...] 12/16/2024 12:00 PM EST Office Visit [facility] End[facility]inology [address] [place] [address] Jason Romero MD [address] [place] [address] 12/30/2024 1:30 PM EST Office Visit [facility] [place] [address], [address] [place] [address] Vivian Macias S, OD [address] [place] [address] documented as of this encounter Visit Diagnoses Diagnosis Type 2 diabetes mellitus with other specified complication, with long-term current use of insulin ([facility])- Primary documented in this encounter Additional Health Concerns Infection Onset Date Last Indicated Resolved Time MRSA 03/30/2021 03/30/2021 Assessment Noted Time A fall risk assessment has been complete d for the patient 11/16/2022 1:15 PM EST A Body Mass Index follow-up plan has been documented for the patient 12/05/2022 4:27 AM EST documented as of this encounter Care Teams Plywood Scarfer Tender Relationship Specialty Start Date End Date Rocky Almanzar MD [address] [place] [address] PCP - General 03/18/21 documented as of this encounter
--- OUTSIDE RECORDS SUMMARY | 2024-09-18 10:20 | XMS_ITS | Encounter Summary ---
Author Organization [facility] Address [address] [place] [address] Care Team Providers Care Farm Reporter Name Role Phone Rocky Almanzar MD Primary Care Provider [phone] Encounter Details Date Type Department Care Team (Late Contact Info) Description 09/14/2021 10:30 AM EST Ancillary Procedure [facility] [address] [place] [phone] Social History Tobacco Use Types Packs/Day Years [...] Description 12/16/2024 12:00 PM EST Office Visit [facility] Endocrinology [address], [address] [place] [address] Jason Romero MD [address] [place] [address] 12/30/2024 1:30 PM EST Office Visit [facility] [address], [address] [place] [address] Vivian Macias S, OD [address] [place] [address] documented as of this encounter [...] documented as of this encounter Care Teams Farm Reporter Relationship Specialty Start Date End Date Rocky Almanzar MD [address] [place] [address] PCP - General 03/18/21 documented as of this encounter
--- OUTSIDE RECORDS SUMMARY | 2024-09-18 10:20 | XMS_ITS | Encounter Summary ---
Author Organization [facility] Address [address] [place] [address] Care Team Providers Care Orientor Name Role Phone Rocky Almanzar MD Primary Care Provider [phone] Reason for Visit * Reason Comments Med Refill Encounter Details Date Type Department Care Team (Late Contact Info) Description 11/10/2021 Refill [facility] [address], [address] [place] [address] Jason Romero MD [address] [place] [address] Type 2 diabetes mellitus with other specified complication, with long-term current use of insulin ([facility]) Social History Tobacco Use Types [...] Description 12/16/2024 12:00 PM EST Office Visit [facility] [address], [address] [place] [address] Jason Romero MD [address] [place] [phone] 12/30/2024 1:30 PM EST Office Visit [facility] [place] [address], [address] [place] [address] Vivian Macias S, OD [address] [place] [address] documented as of this encounter Visit Diagnoses Diagnosis Type 2 diabetes mellitus with other specified complication, with long-term current use of insulin ([facility]) documented in this encounter Additional Health Concerns Infection Onset Date Last Indicated Resolved Time MRSA 03/30/2021 03/30/2021 Assessment Noted Time A fall risk assessment has been complete d for the patient 10/11/2021 3:35 PM EST documented as of this encounter Care Teams Orientor Relationship Specialty Start Date End Date Rocky Almanzar MD [address] [facility] [address] [place] [address] PCP - General 03/18/21 documented as of this encounter
--- OUTSIDE RECORDS SUMMARY | 2024-09-18 10:20 | XMS_ITS | Encounter Summary ---
Author Organization Healthcare Address [address] [place] [address] Care Team Providers Care Refrigeration Engine Operator Name Role Phone Rocky Almanzar MD Primary Care Provider [phone] Reason for Visit * Reason Comments Post-op Encounter Details Date Type Department Care Team (Late st Contact Info) Description 10/04/2021 10:15 AM EST Office Visit [facility] [address] [place] [phone] Rocky Null MD [address] [address] Pseudophakia, both eyes (Primary Dx) Social History Tobacco Use Types [...] Progress Notes - Rocky Null MD - 10/04/2021 10:15 AM EST Pf/Ofx tid od rtc next wk documented in this encounter Plan of Treatment Upcoming Encounters Date Type Department Care Team (Late st Contact Info) Description 12/16/2024 12:00 PM EST Office Visit [facility] Endocrinology [address] [place] [address] Jason Romero MD [address] [place] [address] 12/30/2024 1:30 PM EST Office Visit [facility] [address], [address] [place] [address] Vivian Macias S, OD [address] [place] [address] documented as of this encounter Visit Diagnoses Diagnosis Pseudophakia, both eyes- Primary Lens replaced by other means documented in this encounter Additional Health Concerns Infection Onset Date Last Indicated Resolved Time MRSA 03/30/2021 03/30/2021 Assessment Noted Time A fall risk assessment has been complete d for the patient 10/04/2021 10:40 AM EST documented as of this encounter Care Teams Refrigeration Engine Operator Relationship Specialty Start Date End Date Rocky Almanzar MD [address] [place] [address] PCP - General 03/18/21 documented as of this encounter
--- OUTSIDE RECORDS SUMMARY | 2024-09-18 10:20 | XMS_ITS | Encounter Summary ---
Author Organization Healthcare Address [address] [place] [address] Care Team Providers Care Feed Elevator Worker Name Role Phone Rocky Almanzar MD Primary Care Provider [phone] Reason for Visit * Reason Comments Hearing Loss Encounter Details Date Type Department Care Team (Late st Contact Info) Description 11/29/2022 10:00 AM EST Office Visit [facility] [address] [place] [address] Lottie Lund, AuD [address] [place] [address] Sensorineural hearing loss (SNHL) of both ears [...] Notes * Progress Notes - Lottie Lund, Julius - 11/29/2022 10:00 AM EST Referring Provider: César Griffin MD COCHLEAR IMPLANT MAPPING Patient Status: Mr. Trevino was seen for his annual cochlear implant activation mapping appointment.He reports that he is doing well in general. He reports that he still hears best when he can see someone's face as they are talking. He reports having really struggled during COVID when everyone was wearing masks but knows he did better even in that situation then he would have without is implants.His right side cochlear implant has not seemed to be working as well for him recently. Indeed when we assessed his aided hearing ability approximately a year and half ago, his best hearing in his bilateral aided condition equal old that of his left ear performance. His right ear cochlear implant performance did not seem to significantly add to his binaural score. Condition of Implant sight: Mr. Harris cochlear implant incisions and magnet sites are within normal limits with no redness or edema. Aged Or Disabled Care Worker: PPI Ear: RE: Surgery Date: 07/11/2017 Internal Device: [id number] Advantage/HiFocus 1J Primary External Device: Lizabeth Q90 Magnet strength: 3 Cord length: 3.5 Battery: Rechargeable LE: Internal Device: HiRes [id number]/HiFocus SlimJ Primary External Device: Lizabeth Q90 Magnet strength: 3 Cord length: 3.5 Battery: Rechargeable Equipment Check: Within normal limits Mapping Results: I connected Mr. Harris bilateral cochlear implants to the computer and ran impedances with good result. We measured his C levels across the frequency range bilaterally and established new primary maps for him to use. His right side cochlear implant settings changed significantly which makes me somewhat suspect of his processor is performance. He is eligible for upgrade on his right ear as his cochlear implant processor is over 5 years of age and seems to not be working as well as his left earprocessor. I will submit for a cochlear implant processor upgrade for his right ear. ASSESSMENT/PLAN Return when he receives his new upgraded processor or in 12 months or prn. documented in this encounter Plan of Treatment Upcoming Encounters Date Type Department Care Team (Late st Contact Info) Description 12/16/2024 12:00 PM EST Office Visit [facility] Endocrinology [address], [address] [place] [address] Jason Romero MD [address] [place] [address] 12/30/2024 1:30 PM EST Office Visit [facility] [place] [address], [address] [place] [address] Vivian Macias, OD [address] [place] [address] documented as of this encounter [...] documented as of this encounter Care Teams Feed Elevator Worker Relationship Specialty Start Date End Date Rocky Almanzar MD [address] [place] [address] PCP - General 03/18/21 documented as of this encounter
--- OUTSIDE RECORDS SUMMARY | 2024-09-18 10:20 | XMS_ITS | Encounter Summary ---
Author Organization [facility] Address [address] [place] [address] Care Team Providers Care Case Monitor Name Role Phone Rocky Almanzar MD Primary Care Provider [phone] Encounter Details Date Type Department Care Team (Latest Contact Info) Description 09/06/2021 Travel Social History Tobacco Use Types Packs/Day [...] Description 12/16/2024 12:00 PM EST Office Visit [facility] Endocrinology [address], [address] [place] [address] Jason Romero MD [address] [place] [address] 12/30/2024 1:30 PM EST Office Visit [facility] [place] [address], [address] [place] [address] Vivian Macias S, OD [address] [place] [address] documented as of this encounter Visit Diagnoses Not on filedocumented in this encounter Additional Health Concerns Infection Onset Date Last Indicated Resolved Time MRSA 03/30/2021 03/30/2021 Assessment Noted Time A fall risk assessment has been complete d for the patient 09/06/2021 9:28 AM EDT documented as of this encounter Care Teams Case Monitor Relationship Specialty Start Date End Date Rocky Almanzar MD [address] [place] [address] PCP - General 03/18/21 documented as of this encounter
--- OUTSIDE RECORDS SUMMARY | 2024-09-18 10:20 | XMS_ITS | Encounter Summary ---
Author Organization [facility] Address [address] [place] [address] Care Team Providers Care Fuel Oil Clerk Name Role Phone Rocky Almanzar MD Primary Care Provider [phone] Encounter Details Date Type Department Care Team (Latest Contact Info) Description 11/22/2022 Travel Social History Tobacco Use Types Packs/Day [...] suspected to have Coronavirus/COVID-19? No / Unsure 11/22/2022 12:54 PM EST documented as of this encounter Plan of Treatment Upcoming Encounters Date Type Department Care Team (Late st Contact Info) Description 12/16/2024 12:00 PM EST Office Visit [facility] Endocrinology [address], [address] [place] [address] Jason Romero MD [address] [place] [address] 12/30/2024 1:30 PM EST Office Visit [facility] [address], [address] [place] [address] Vivian Macias S, OD [address] [place] [address] documented as of this encounter Visit Diagnoses Not on filedocumented in this encounter Additional Health Concerns Infection Onset Date Last Indicated Resolved Time MRSA 03/30/2021 03/30/2021 Assessment Noted Time A fall risk assessment has been complete d for the patient 11/16/2022 1:15 PM EST documented as of this encounter Care Teams Fuel Oil Clerk Relationship Specialty Start Date End Date Rocky Almanzar MD [address] [place] [address] PCP - General 03/18/21 documented as of this encounter
--- OUTSIDE RECORDS SUMMARY | 2024-09-18 10:20 | XMS_ITS | Encounter Summary ---
Author Organization [facility] Address [address] [place] [address] Care Team Providers Care Beam Builder Name Role Phone Rocky Almanzar MD Primary Care Provider [phone] Encounter Details Date Type Department Care Team (Late st Contact Info) Description 02/13/2022 9:45 AM EDT Office Visit [facility] [address] [place] [address] Rocky Null MD [address] [address] Diabetes mellitus type 2 without [...] Progress Notes - Rocky Null MD - 02/13/2022 9:45 AM EDT Subjective HPI 71 year old male presents 4 month follow up post op intraocular lens implant both eyes. Patient reports he has dry eyes and sometimes effects vision. Patient says that vision has improved since surgery. Patient is a diabetic and HgA1c is unknown. Avg BG 145 mg%; happy w/ vision ou Last edited by Rocky Null MD on 02/13/2022 10:30 AM. (History) ROS Negative for: Constitutional, Gastrointestinal, Neurological, Skin, Genitourinary, Musculoskeletal,HENT, Endocrine, Cardiovascular, Eyes, Respiratory, Psychiatric, Allergic/Imm, Heme/Lymph Last edited by Saud Joseph on 02/13/2022 10:01 AM. (History) Objective Base Eye Exam Visual Acuity (Snellen - Linear) Right Left Dist sc 20/20 20/20 -2 Tonometry (Tonopen, 10:21 AM) Right Left Pressure 15 14 Pupils Pupils APD Right PERRL None Left PERRL None Visual Moore Right Left Full Full Extraocular Movement Right Left Full, Ortho Full, Ortho Neuro/Psych Oriented x3: Yes Mood/Affect: Normal Dilation Both eyes: 1% Tropicamide, 2.5% Phenylephrine @ 10:22 AM Slit Lamp and Fundus Exam External Exam Right Left External Normal Normal Slit Lamp Exam Right Left Lids/Lashes Normal for age Normal for age Conjunctiva/Sclera Normal Normal Cornea Clear and compact Clear and compact Anterior Chamber Deep and quiet Deep and quiet Iris normal;no nvi normal; no nvi Lens panoptix stable panoptix stable Vitreous Normal Normal Fundus Exam Right Left Disc No edema, no vascularization, good color (Otto 78 d Lens) No edema, no vascularization, good color (Otto 78 d Lens) C/D Ratio 0.3 0.3 Macula Normal reflex, without edema Normal reflex, without edema Vessels Perfused, no tortuosity or abnormality Perfused, no tortuosity or abnormality Periphery Attached, no retinal or choroidal lesions Attached, no retinal or choroidal lesions Refraction Manifest Refraction (Auto) Sphere Cylinder Lucas Dist VA Right -0.25 +0.50 023 20/30 Left +0.25 +0.50 102 20/30 Assessment/Plan Diagnoses and all orders for this visit: Diabetes mellitus type 2 without retinopathy (CMS/HCC) Pseudophakia, both eyes DM info given; discussed value of regulating blood glucose levels and lifestyle influences Happy w/ intraocular lens (IOL) selection rtc 1 yr ar/mr/dfe ou documented in this encounter Plan of Treatment Upcoming Encounters Date Type Department Care Team (Late st Contact Info) Description 12/16/2024 12:00 PM EST Office Visit [facility] Endocrinology [address], [address] [place] [address] Jason Romero MD [address] [place] [address] 12/30/2024 1:30 PM EST Office Visit [facility] [address] [place] [address] Vivian Macias S, OD [address] [place] [address] documented as of this encounter [...] documented as of this encounter Care Teams Beam Builder Relationship Specialty Start Date End Date Rocky Almanzar MD [address] [place] [address] PCP - General 03/18/21 documented as of this encounter
--- OUTSIDE RECORDS SUMMARY | 2024-09-18 10:20 | XMS_ITS | Encounter Summary ---
Author Organization [facility] Address [address] [place] [address] Care Team Providers Care Extended Insurance Clerk Name Role Phone Rocky Almanzar MD Primary Care Provider [phone] Encounter Details Date Type Department Care Team (Latest Contact Info) Description 11/19/2023 Travel Social History Tobacco Use Types Packs/Day [...] Description 12/16/2024 12:00 PM EST Office Visit [facility] Endocrinology [address], [address] [place] [address] Jason Romero MD [address] [place] [address] 12/30/2024 1:30 PM EST Office Visit [facility] [place] [address], [address] [place] [address] Vivian Macias S, OD [address] [place] [address] documented as of this encounter [...] documented as of this encounter Care Teams Extended Insurance Clerk Relationship Specialty Start Date End Date Rocky Almanzar MD [address] [place] [address] PCP - General 03/18/21 documented as of this encounter
--- OUTSIDE RECORDS SUMMARY | 2024-09-18 10:20 | XMS_ITS | Encounter Summary ---
Author Organization [facility] Address [address] [place] [address] Care Team Providers Care Windows Server Engineer Name Role Phone Rocky Almanzar MD Primary Care Provider Encounter Details Date Type Department Care Team (Late st Contact Info) Description 10/11/2021 3:15 PM EST Office Visit [facility] [address] [place] [address] Rocky Null MD [address] [address] Pseudophakia, both eyes (Primary Dx) [...] Progress Notes - Rocky Null MD - 10/11/2021 3:15 PM EST Stop Ofx; taper Pf od rtc 4 mos ar/mr/dfe ou documented in this encounter Plan of Treatment Upcoming Encounters Date Type Department Care Team (Late st Contact Info) Description 12/16/2024 12:00 PM EST Office Visit [facility] Endocrinology [address], [address] [place] [address] Jason Romero MD [address] [place] [address] 12/30/2024 1:30 PM EST Office Visit [facility] [address], [address] [place] [address] Vivian Macias S, OD [address] [place] [address] documented as of this encounter Visit Diagnoses Diagnosis Pseudophakia, both eyes- Primary Lens replaced by other means documented in this encounter Additional Health Concerns Infection Onset Date Last Indicated Resolved Time 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
--- OUTSIDE RECORDS SUMMARY | 2024-09-18 10:20 | XMS_ITS | Encounter Summary ---
Author Organization [facility] Address [address] [place] [address] Care Team Providers Care Slitter Creaser Slotter Operator Name Role Phone Rocky Almanzar MD Primary Care Provider [phone] Encounter Details Date Type Department Care Team (Latest Contact Info) Description 10/11/2021 Travel Social History Tobacco Use Types Packs/Day [...] Description 12/16/2024 12:00 PM EST Office Visit [facility] Endocrinology [address], [address] [place] [address] Jason Romero MD [address] [place] [address] 12/30/2024 1:30 PM EST Office Visit [facility] [place] [address], [address] [place] [address] Vivian Macias S, OD [address] [place] [address] documented as of this encounter Visit Diagnoses Not on filedocumented in this encounter Additional Health Concerns Infection Onset Date Last Indicated Resolved Time 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
--- OUTSIDE RECORDS SUMMARY | 2024-09-18 10:21 | XMS_ITS | Encounter Summary ---
Author Organization [facility] Address [address] [place] [address] Care Team Providers Care Nut Packer Name Role Phone Unavailable Primary Care Provider Unavailabl e Encounter Details Date Type Department Care Team (Late st Contact Info) Description 04/30/2019 [facility] [employer] Encounter HISTORICAL OPHTHALMOLOGY [address] [place] [address] Rocky Null MD [address] [place] [address] Social History Tobacco Use Types Packs/Day Years Used Date Smoking Tobacco: Never Assessed Sex and Gender Information Value Date Recorded Sex Assigned at Not on file Legal Sex Male 7:34 PM EDT Gender Identity Not on file Sexual Orientation Not on file documented as of this encounter Plan of Treatment Upcoming Encounters Date Type Department Care Team (Late st Contact Info) Description 12/16/2024 12:00 PM EST Office Visit [facility] Endocrinology [address] [place] [address] Jason Romero MD [address] [place] [address] 12/30/2024 1:30 PM EST Office Visit [facility] [address], [address] [place] [address] Vivian Macias, OD [address] [place] [address] documented as of this encounter Visit Diagnoses Not on filedocumented in this encounter
--- OUTSIDE RECORDS SUMMARY | 2024-09-18 10:21 | XMS_ITS | Encounter Summary ---
Author Organization [facility] Address [address] [place] [address] Care Team Providers Care Honey Producer Name Role Phone Unavailable Primary Care Provider Unavailabl e Encounter Details Date Type Department Care Team (Late st Contact Info) Description 03/14/2016 [facility] En[facility] [address] [place] [address] ProviderElvis MD [address] [place] [address] Social History Tobacco Use Types Packs/Day Years Used Date Smoking Tobacco: Never Assessed Sex and Gender Information Value Date Recorded Sex Assigned at Not on file Legal Sex Male 7:34 PM EDT Gender Identity Not on file Sexual Orientation Not on file documented as of this encounter Last Filed Vital Signs Vital Sign Reading Time Taken Comments Blood Pressure - - Pulse - - Temperature - - Respiratory Rate - - Oxygen Saturation - - Inhaled Oxygen Concentration - - Weight 77.1 kg (170 lb) 03/14/2016 3:14 PM EDT Height 165.1 cm (5' 5 ) 03/14/2016 3:14 PM EDT Body Mass Index 28.29 03/14/2016 3:14 PM EDT documented in this encounter Plan of Treatment Upcoming Encounters Date Type Department Care Team (Late Contact Info) Description 12/16/2024 12:00 PM EST Office Visit [facility] [address] [place] [address] Jason Romero MD [address] [place] [address] 12/30/2024 1:30 PM EST Office Visit [facility] Eye [place] [address] [place] [address] Vivian Macias, OD [address] [place] [address] documented as of this encounter Visit Diagnoses Not on filedocumented in this encounter
--- OUTSIDE RECORDS SUMMARY | 2024-09-18 10:21 | XMS_ITS | Encounter Summary ---
Author Organization [facility] Address [address] [place] [address] Care Team Providers Care Qualitative Researcher Name Role Phone Unavailable Primary Care Provider Unavailabl e Encounter Details Date Type Department Care Team (Late Contact Info) Description 11/07/2016 [facility] Vit[facility] Encounter [facility] OUTPATIENT CONVERSIONS [address] [place] [address] ProviderElvis MD [address] [place] [address] Social History Tobacco Use Types Packs/Day [...] - Inhaled Oxygen Concentration - - Weight 70.3 kg (155 lb 0.1 oz) 11/07/2016 10:00 AM EST Height 165.1 cm (5' 5 ) 11/07/2016 10:00 AM EST Body Mass Index 25.79 11/07/2016 10:00 AM EST documented in this encounter Plan of Treatment Upcoming Encounters Date Type Department Care Team (Late Contact Info) Description 12/16/2024 12:00 PM EST Office Visit [facility] [address] [place] [address] Jason Romero MD [address] [place] [address] 12/30/2024 1:30 PM EST Office Visit [facility] [place] [address] [place] [address] Vivian Macias, OD [address] [place] [address] documented as of this encounter Visit Diagnoses Not on filedocumented in this encounter
--- OUTSIDE RECORDS SUMMARY | 2024-09-18 10:21 | XMS_ITS | Encounter Summary ---
Author Organization [facility] Address [address] [place] [address] Care Team Providers Care Insurance Risk Surveyor Name Role Phone Unavailable Primary Care Provider Unavailabl e Encounter Details Date Type Department Care Team (Late st Contact Info) Description 09/21/2017 [facility] Vit[facility] Encounter [facility] OUTPATIENT CONVERSIONS [address] [place] [address] ProviderElvis MD [address] [place] [address] Social History Tobacco Use Types Packs/Day [...] - Inhaled Oxygen Concentration - - Weight 76.1 kg (167 lb 12 oz) 09/21/2017 12:58 P M EST Height 165.1 cm (5' 5 ) 09/21/2017 12:58 PM EST Body Mass Index 27.91 09/21/2017 12:58 PM EST documented in this encounter Plan of Treatment Upcoming Encounters Date Type Department Care Team (Late Contact Info) Description 12/16/2024 12:00 PM EST Office Visit [facility] [address] [place] [address] Jason Romero MD [address] [place] [address] 12/30/2024 1:30 PM EST Office Visit [facility] [place] [address] [place] [address] Vivian Macias, OD [address] [place] [address] documented as of this encounter Visit Diagnoses Not on filedocumented in this encounter
--- OUTSIDE RECORDS SUMMARY | 2024-09-18 10:21 | XMS_ITS | Encounter Summary ---
Author Organization [facility] Address [address] [place] [address] Care Team Providers Care Secondary Connector Armature Name Role Phone Unavailable Primary Care Provider Unavailabl e Encounter Details Date Type Department Care Team (Late Contact Info) Description 10/17/2016 [facility] Vit[facility] En[facility] [address] [place] [address] ProviderElvis MD [address] [place] [address] Social History Tobacco Use Types Packs/Day [...] - Inhaled Oxygen Concentration - - Weight 72.1 kg (158 lb 15.9 oz) 10/17/2016 9:14 AM EST Height 165.1 cm (5' 5 ) 10/17/2016 9:14 AM EST Body Mass Index 26.46 10/17/2016 9:14 AM EST documented in this encounter Plan of Treatment Upcoming Encounters Date Type Department Care Team (Late Contact Info) Description 12/16/2024 12:00 PM EST Office Visit [facility] [address] [place] [address] Jason Romero MD [address] [place] [address] 12/30/2024 1:30 PM EST Office Visit [facility] [place] [address], [address] [place] [address] Vivian Macias, OD [address] [place] [address] documented as of this encounter Visit Diagnoses Not on filedocumented in this encounter
--- OUTSIDE RECORDS SUMMARY | 2024-09-18 10:21 | XMS_ITS | Encounter Summary ---
Author Organization [facility] Address [address] [place] [address] Care Team Providers Care Lithostripper Name Role Phone Unavailable Primary Care Provider Unavailabl e Encounter Details Date Type Department Care Team (Late st Contact Info) Description 11/15/2016 [facility] Vit[facility] Encounter [facility] OUTPATIENT CONVERSIONS [address] [place] [address] ProviderElvis MD [address] [place] [address] Social History Tobacco Use Types Packs/Day [...] Weight 70.3 kg (155 lb 0.1 oz) 11/15/2016 8:47 A M EST Height 165.1 cm (5' 5 ) 11/15/2016 8:47 AM EST Body Mass Index 25.79 11/15/2016 8:47 AM EST documented in this encounter Plan of Treatment Upcoming Encounters Date Type Department Care Team (Late Contact Info) Description 12/16/2024 12:00 PM EST Office Visit [facility] Endocrinology [address] [place] [address] Jason Romero MD [address] [place] [address] 12/30/2024 1:30 PM EST Office Visit [facility] [place] [address], [address] [place] [address] Vivian Macias, OD [address] [place] [address] documented as of this encounter Visit Diagnoses Not on filedocumented in this encounter
--- OUTSIDE RECORDS SUMMARY | 2024-09-18 10:21 | XMS_ITS | Encounter Summary ---
Author Organization [facility] Address [address] [place] [address] Care Team Providers Care Visitor Use Assistant Name Role Phone Rocky Almanzar MD Primary Care Provider [phone] Reason for Visit * Reason Comments Hearing Loss Encounter Details Date Type Department Care Team (Late st Contact Info) Description 05/10/2021 10:00 AM EDT Office Visit [facility]UD[facility] [address] [place] [address] Lottie Lund, AuD [address] [place] [address] Sensorineural hearing loss (SNHL) of both ears (Primary Dx) Social History Tobacco Use Types Packs/Day Years Used Date Smoking Tobacco: Former Alcohol Use Standard Drinks/Week Comments Yes 0 (1 standard drink = 0.6 oz pure [...] have Coronavirus / COVID-19? No / Unsure 05/10/2021 10:11 AM EDT documented as of this encounter Miscellaneous Notes * Progress Notes - Lottie Lund, [facility] - 05/10/2021 10:00 AM EDT Referring Provider: Rocky Almanzar MD COCHLEAR IMPLANT MAPPING Patient Status: Mr. Trevino was seen for his 1 year post initial left ear cochlear implant activation mapping appointment. He reports that he is doing quite well in general. He said he understands that it is not perfect and never will be the compared to his situation as recently as a year ago, he isgrateful for this current progress. He reports that he hears best when he can see someone space. Heused his Abdoul Select quite successfully for some Zoom meetings. The only sounds that really botherhim are when his and leads a high school coach but he said it is brief and therefore isn't too bothered by it. Condition of Implant sight: Mr. Harris cochlear implant incisions and magnet sites are within normal limits with no redness or edema. Gig Tender: Heap Ear: RE: Internal Device: [id number] Advantage/HiFocus 1J Primary External Device: Lizabeth Q90 Magnet strength: 3 Cord length: 3.5 Battery: Rechargeable LE: Internal Device: HiRes [id number]/HiFocus SlimJ Primary External Device: Lizabeth Q90 Magnet strength: 3 Cord length: 3.5 Battery: Rechargeable Preferred Program: 1 Equipment Check: Within normal limits Mapping Results: We began today's appointment in the sound moise for progress assessment. Approximately 45 minutes was spent in the sound moise obtaining the following results: Right ear cochlear implant sound field thresholds indicate borderline normal hearing to mild hearing loss across the frequency range. Right ear cochlear implant CNC word score = 44% Right ear cochlear implant CNC phonemic score = 64% Right ear cochlear implant [place] bio sentence score at +10 signal to noise ratio = 25% Left ear cochlear implant sound field thresholds indicate a mild hearing loss across the frequency range. Left ear cochlear implant CNC word score = 56% Left ear cochlear implant CNC phonemic score = 79% Left ear cochlear implant [place] bio sentence score at +10 signal to noise ratio = 54% Binauarl cochlear implant CNC word score = 80% Binauarl cochlear implant CNC phonemic score = 93% Binauarl cochlear implant [place] bio sentence score at +10 signal to noise ratio = 54% I connected Mr. Harris bilateral cochlear implants to the computer and ran impedances with good result. We measured his C levels across the frequency range bilaterally and established new primary maps for him to use. We made the most significant change to his left ear cochlear implant processor to bring it closer to near-normal hearing levels. Mr. Trevino was happy with the overall sound quality prior to leaving the clinic. He will return to this clinic in approximately 1 year or p.r.n.. ASSESSMENT/PLAN Return in: 12 months or prn. documented in this encounter Plan of Treatment Upcoming Encounters Date Type Department Care Team (Late st Contact Info) Description 12/16/2024 12:00 PM EST Office Visit [facility] Endocrinology [address] [facility] [facility], [address] [place] [address] Jason Romero MD [address] 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
--- OUTSIDE RECORDS SUMMARY | 2024-09-18 10:21 | XMS_ITS | Encounter Summary ---
Author Organization Healthcare Address [address] [place] [address] Care Team Providers Care Outdoor Adventure Instructor Name Role Phone Unavailable Primary Care Provider Unavailabl e Encounter Details Date Type Department Care Team (Late st Contact Info) Description 03/07/2016 [facility] Vitals Encounter [facility] [address] [place] [address] ProviderElvis MD [address] [place] [address] Social History Tobacco Use Types Packs/Day [...] - - Weight 77.1 kg (170 lb) 03/07/2016 2:14 PM EDT Height 165.1 cm (5' 5 ) 03/07/2016 2:14 PM EDT Body Mass Index 28.29 03/07/2016 2:14 PM EDT documented in this encounter Plan of Treatment Upcoming Encounters Date Type Department Care Team (Late Contact Info) Description 12/16/2024 12:00 PM EST Office Visit [facility] [address] [place] [address] Jason Romero MD [address] [place] [address] 12/30/2024 1:30 PM EST Office Visit [facility] [place] [address], [address] [place] [address] Vivian Macias, OD [address] [place] [address] documented as of this encounter Visit Diagnoses Not on filedocumented in this encounter
--- OUTSIDE RECORDS SUMMARY | 2024-09-18 10:21 | XMS_ITS | Encounter Summary ---
Author Organization Healthcare Address [address] [place] [address] Care Team Providers Care Slitting Machine Operator Helper Name Role Phone Unavailable Primary Care Provider Unavailabl e Encounter Details Date Type Department Care Team (Late st Contact Info) Description 07/10/2017 [facility] AEHR Vitals Encounter [facility] [address] [place] [address] ProviderElvis MD [address] [place] [address] Social History Tobacco Use Types Packs/Day [...] - Inhaled Oxygen Concentration - - Weight 76.4 kg (168 lb 6.9 oz) 07/10/2017 8:53 A M EDT Height 165.1 cm (5' 5 ) 07/10/2017 8:53 AM EDT Body Mass Index 28.03 07/10/2017 8:53 AM EDT documented in this encounter Plan of Treatment Upcoming Encounters Date Type Department Care Team (Late Contact Info) Description 12/16/2024 12:00 PM EST [facility] [address] , [address] [place] [address] Jason Romero MD [address] [place] [address] 12/30/2024 1:30 PM EST Office Visit [facility] [place] [address], [address] [place] [address] Vivian Macias, OD [address] [place] [address] documented as of this encounter Visit Diagnoses Not on filedocumented in this encounter
--- OUTSIDE RECORDS SUMMARY | 2024-09-18 10:21 | XMS_ITS | Encounter Summary ---
Author Organization Healthcare Address [address] [place] [address] Care Team Providers Care Proof Carrier Name Role Phone Unavailable Primary Care Provider Unavailabl e Encounter Details Date Type Department Care Team (Late st Contact Info) Description 07/21/2016 [facility] AEHR Vitals Encounter [facility] [address] [place] [address] ProviderElvis MD [address] [place] [address] Social History Tobacco Use Types Packs/Day [...] - - Weight 77.1 kg (170 lb) 07/21/2016 11:10 AM EDT Height 165.1 cm (5' 5 ) 07/21/2016 11:10 AM EDT Body Mass Index 28.29 07/21/2016 11:10 AM EDT documented in this encounter Plan of Treatment Upcoming Encounters Date Type Department Care Team (Late Contact Info) Description 12/16/2024 12:00 PM EST Office Visit [facility] [address] , [address] [place] [address] Jason Romero MD [address] [place] [address] 12/30/2024 1:30 PM EST Office Visit [facility] [place] [address], [address] [place] [address] Vivian Macias, OD [address] [place] [address] documented as of this encounter Visit Diagnoses Not on filedocumented in this encounter
--- OUTSIDE RECORDS SUMMARY | 2024-09-18 10:21 | XMS_ITS | Encounter Summary ---
Author Organization Healthcare Address [address] [place] [address] Care Team Providers Care Face Burler Name Role Phone Rocky Almanzar MD Primary Care Provider Encounter Details Date Type Department Care Team (Late st Contact Info) Description 07/14/2021 [facility] [address], [address] [place] [address] Vivian Donaldson, CDE, RD [address] [facility] [address] [place] [address] Social History Tobacco Use Types [...] have Coronavirus / COVID-19? No / Unsure 06/29/2021 9:26 AM EDT documented as of this encounter Miscellaneous Notes * Telephone Encounter - Vivian Donaldson RD - 07/14/2021 2:19 PM EDT [facility] requesting PA on Praluent. Pt is already on Zetia, This is a continuation of Therapy,, Labs: HDL 41, LDL 70, TG 257 documented in this encounter Plan of Treatment Upcoming Encounters Date Type Department Care Team (Late st Contact Info) Description 12/16/2024 12:00 PM EST Office Visit [facility] [address], [address] [place] [address] Jason Romero MD [address] [place] [address] 12/30/2024 1:30 PM EST [facility] [place] [address], [address] [place] [address] Vivian Macisa S, OD [address] [place] [address] documented as of this encounter Visit Diagnoses Not on filedocumented in this encounter Additional Health Concerns Infection Onset Date Last Indicated Resolved Time 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
--- OUTSIDE RECORDS SUMMARY | 2024-09-18 10:21 | XMS_ITS | Encounter Summary ---
Author Organization Healthcare Address [address] [place] [address] Care Team Providers Care Computer Security Manager Name Role Phone Unavailable Primary Care Provider Unavailabl e Encounter Details Date Type Department Care Team (Late st Contact Info) Description 01/24/2017 [facility] AEHR Vitals Encounter [facility] [address] [place] [address] ProviderElvis MD [address] [place] [address] Social History Tobacco Use Types Packs/Day [...] - Inhaled Oxygen Concentration - - Weight 75.8 kg (167 lb 3.2 oz) 01/24/2017 8:22 A M EDT Height 165.1 cm (5' 5 ) 01/24/2017 8:22 AM EDT Body Mass Index 27.82 01/24/2017 8:22 AM EDT documented in this encounter Plan of Treatment Upcoming Encounters Date Type Department Care Team (Late st Contact Info) Description 12/16/2024 12:00 PM EST [facility] [address] [place] [address] Jason Romero MD [address] [place] [address] 12/30/2024 1:30 PM EST Office Visit [facility] [place] [address], [address] [place] [address] Vivian Macias, OD [address] [place] [address] documented as of this encounter Visit Diagnoses Not on filedocumented in this encounter
--- OUTSIDE RECORDS SUMMARY | 2024-09-18 10:21 | XMS_ITS | Encounter Summary ---
Author Organization [facility] Address [address] [place] [id number] Care Team Providers Care Etcher Machine Name Role Phone Rocky Almanzar MD Primary Care Provider [phone] Reason for Visit * Reason Comments Med Refill Encounter Details Date Type Department Care Team (Late Contact Info) Description 07/08/2021 Refill [facility] [address] [place] [address] Jason Romero MD [address] [place] [address] Social History Tobacco Use Types [...] Description 12/16/2024 12:00 PM EST [facility] [address] [place] [address] Jason Romero MD [address] [place] [address] 12/30/2024 1:30 PM EST Office Visit [facility] [place] [address], [address] [place] [address] Vivian Macias S, OD [address] [place] [address] documented as of this encounter Visit Diagnoses Not on filedocumented in this encounter Additional Health Concerns Infection Onset Date Last Indicated Resolved Time MRSA 03/30/2021 03/30/2021 Assessment Noted Time A fall risk assessment has been complete d for the patient 06/07/2021 9:54 AM EDT documented as of this encounter Care Teams Etcher Machine Relationship Specialty Start Date End Date Rocky Almanzar MD [address] [place] [id number] PCP - General 03/18/21 documented as of this encounter
--- OUTSIDE RECORDS SUMMARY | 2024-09-18 10:21 | XMS_ITS | Encounter Summary ---
Author Organization Healthcare Address [address] [place] [address] Care Team Providers Care Dye House Supervisor Name Role Phone Unavailable Primary Care Provider Unavailabl e Encounter Details Date Type Department Care Team (Late st Contact Info) Description 12/20/2016 Legacy AEHR Vitals Encounter [facility] CONVERSION[facility] [address] [place] [address] ProviderElvis MD [address] [place] [address] Social History Tobacco Use Types Packs/Day [...] - Inhaled Oxygen Concentration - - Weight 74.8 kg (164 lb 15.9 oz) 017 11:25 AM EST Height 165.1 cm (5' 5 ) 12/20/2016 11:2 5 AM EST Body Mass Index 27.46 12/20/2016 11:25 AM EST documented in this encounter Plan of Treatment Upcoming Encounters Date Type Department Care Team (Late Contact Info) Description 12/16/2024 12:00 PM EST Office Visit [facility] [address] , [address] [place] [address] Jason Romero MD [address] [place] [address] 12/30/2024 1:30 PM EST Office Visit [facility] [place] [address] [place] [address] Vivian Macias, OD [address] [place] [address] documented as of this encounter Visit Diagnoses Not on filedocumented in this encounter
--- OUTSIDE RECORDS SUMMARY | 2024-09-18 10:21 | XMS_ITS | Encounter Summary ---
Author Organization Healthcare Address [address] [place] [address] Care Team Providers Care Associate Professor Of Engineering Name Role Phone Rocky Almanzar MD Primary Care Provider [phone] Encounter Details Date Type Department Care Team (Late st Contact Info) Description 03/30/2021 Abstract [facility] [address], [address] [place] [address] Lottie Lund, AuD [address] [place] [address] Social History Tobacco Use Types [...] Index - - documented in this encounter Miscellaneous Notes * Addendum Note - Marcia Cruz - 03/30/2021 2:49 PM EDTAddended by: MARCIA CRUZ on: 05/02/2021 02:44 PM Modules accepted: Orders documented in this encounter Plan of Treatment Upcoming Encounters Date Type Department Care Team (Late st Contact Info) Description 12/16/2024 12:00 PM EST Office Visit [facility] [address] [place] [address] Jason Romero MD [address] [place] [address] 12/30/2024 1:30 PM EST Office Visit [facility] [address] [place] [address] Vivian Macias S, OD [address] [place] [address] documented as of this encounter Visit Diagnoses Not on filedocumented in this encounter Additional Health Concerns Infection Onset Date Last Indicated Resolved Time MRSA 03/30/2021 03/30/2021 documented as of this encounter Care Teams Associate Professor Of Engineering Relationship Specialty Start Date End Date Rocky Almanzar MD [address] [place] [id number] PCP - General 03/18/21 documented as of this encounter
--- OUTSIDE RECORDS SUMMARY | 2024-09-18 10:21 | XMS_ITS | Encounter Summary ---
Author Organization Healthcare Address [address] [place] [address] Care Team Providers Care Engraver Signature Name Role Phone Unavailable Primary Care Provider Unavailabl e Encounter Details Date Type Department Care Team (Late st Contact Info) Description 06/26/2017 [facility] AEHR Vitals Encounter [facility] [address] [place] [address] ProviderElvis MD [address] [place] [address] Social History Tobacco Use Types Packs/Day [...] - - Weight 77.1 kg (170 lb) 06/26/2017 10:25 AM EDT Height 165.1 cm (5' 5 ) 06/26/2017 10:25 AM EDT Body Mass Index 28.29 06/26/2017 10:25 AM EDT documented in this encounter Plan of Treatment Upcoming Encounters Date Type Department Care Team (Late Contact Info) Description 12/16/2024 12:00 PM EST Office Visit [facility] [address] [place] [address] Jason Romero MD [address] [place] [address] 12/30/2024 1:30 PM EST Office Visit [facility] [place] [address] [place] [address] Vivian Macias, OD [address] [place] [address] documented as of this encounter Visit Diagnoses Not on filedocumented in this encounter
--- OUTSIDE RECORDS SUMMARY | 2024-09-18 10:21 | XMS_ITS | Encounter Summary ---
Author Organization [facility] Address [address] [place] [address] Care Team Providers Care Educational Administration Teacher Name Role Phone Rocky Almanzar MD Primary Care Provider [phone] Encounter Details Date Type Department Care Team (Late st Contact Info) Description 01/13/2021 [facility] [address] [place] [address] ProviderElvis MD [address] [place], [place] [id number] Social History Tobacco Use Types Packs/Day Years [...] Description 12/16/2024 12:00 PM EST [facility] [address] , [address] [place] [address] Jason Romero MD [address] [place] [address] 12/30/2024 1:30 PM EST Office Visit [facility] [place] [address] [place] [address] Vivian Macias, OD [address] [place] [address] documented as of this encounter Procedures Procedure Name Priority Date/Time Associated Diagnosis Comments POCT GLYCOSYLATED HEMOGLOBIN (HGB A1C) Routine 01/13/2021 1:42 PM EST POCT GLYCOSYLATED HEMOGLOBIN (HGB A1C) Routine 10/15/2020 12:00 PM EST POCT GLYCOSYLATED HEMOGLOBIN (HGB A1C) Routine 04/22/2020 8:17 AM EDT documented in this encounter Results * CLAIRE Hemoglobin A1C (01/13/2021 1:42 PM EST) POCT Hemoglobin A1C 8.4 [facility] 01/13/2021 1:42 PM EST Narrative [facility] - 01/13/2021 1:42 PM EST Resulting Agency - AEHR POC [[facility] [place]] us Historical Provider MD POINT OF CARE TEST ENTER/ EDIT ORDERABLES Final Result [address] [place] [address], [place] * CLAIRE Hemoglobin A1C (10/15/2020 12:00 PM EST) POCT Hemoglobin A1C 7.8 [facility] 10/15/2020 12:0 0 PM EST Narrative [facility] - 10/15/2020 12:00 PM EST Resulting Agency - AEHR POC [[facility]] us Historical Provider MD POINT OF CARE TEST ENTER/ EDIT ORDERABLES Final Result [address] [place] [address], [place] * CLAIRE Hemoglobin A1C (04/22/2020 8:17 AM EDT) POCT Hemoglobin A1C 10.0 [facility] 04/22/2020 8:17 AM EDT Narrative [facility] - 04/22/2020 8:17 AM EDT Resulting Agency - AEHR POC [[facility]] us Historical Provider POINT OF CARE TEST ENTER/ EDIT ORDERABLES Final Result [facility] [address] [facility] [address] [place] [address], documented in this encounter Visit Diagnoses Not on filedocumented in this encounter Additional Health Concerns Infection Onset Date Last Indicated Resolved Time MRSA 03/30/2021 03/30/2021 documented as of this encounter Care Teams Educational Administration Teacher Relationship Specialty Start Date End Date Rocky Almanzar MD [address] [place] [id number] PCP - General 03/18/21 documented as of this encounter
--- OUTSIDE RECORDS SUMMARY | 2024-09-18 10:21 | XMS_ITS | Encounter Summary ---
Author Organization [facility] Address [address] [place] [address] Care Team Providers Care Router Machine Operator Name Role Phone Rocky Almanzar MD Primary Care Provider [phone] Reason for Visit * Reason Comments Diabetes type2 Encounter Details Date Type Department Care Team (Late st Contact Info) Description 08/22/2021 3:00 PM EDT [facility] [address] [place] [address] Jason Romero MD [address] [place] [address] Type 2 diabetes mellitus without complication, with long-term current use of insulin (CMS/HCC) (Primary Dx); 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; Vitamin D deficiency Social History Tobacco Use Types Packs/Day Years [...] Sign Reading Time Taken Comments Blood Pressure 114/70 08/22/2021 2:57 PM EDT Pulse 83 08/22/2021 2:57 PM EDT Temperature - - Respiratory Rate - - Oxygen Saturation - - Inhaled Oxygen Concentration - - Weight 77.8 kg (171 lb 8.3 oz) 08/22/2021 2:57 P M EDT Height 165.1 cm (5' 5 ) 08/22/2021 2:57 PM EDT Body Mass Index 28.54 08/22/2021 2:57 PM EDT documented in this encounter Miscellaneous Notes * Progress Notes - Jason Romero MD - 08/22/2021 3:00 PM EDT Chief Complaint Patient presents today for Uncontrolled T2DM History of Present Illness Mr. 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 DM regimen Humalog 75/25: 24 - 30 units BID or TID with each meal + adjustment Metformin 500 mg BID ?? A1C 8 FS 3 times a day, 122- 343 (average 170), No Hypoglycemia ?? Diet the same, occasionally juice; alcohol occasionally, 3-4 beers/week Eats 3 meals a day 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, 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 Weight -stable since 2018 (165 - 175) He is now a non-smoker ?? EYE - 05/2021, no retinopathy HTN - acceptable BP, taking Atenolol LDL - LDL 70 TG 257 (04/2020), takes Zetia He has been taking Praluent 75 mg/ml every 2 weeks since 02/21 but insurance wont approve it anymore, and with normal LFT we can add pravastatin 20 mg daily Kidney - Cr normal (GFR > 60) Neuropathy - on the soles of his feet only, minimal Subclinical Hypothyroidism Levothyroxine 25 mcg daily, taking everyday, TSH 3.5 (09/20), 2.56 (04/22), 3.4 (07/24) He denies symptoms of hyper/hypothyroidism Takes zetia, vitamin D and levothyroxine ?? Review of System Denies recent illness or hospitalization His liver is stable and can use statin, should watch LFT (history of hemochromatosis) History of COVID-19 in 09/2020 History of mild local reaction to Prulent (redness and itching) was told that can use anti histamine Denies nausea, vomiting, chest pain, SOB, abdominal pain, headache, vision problem, hearing problem, dizziness, diarrhea or constipation ?? Hemochromatosis: 2010 liver biopsy from [facility] in [place] showed active chronic hepatitis withmoderate stainable iron [...] 67), CBC (Hb 15.1 WBC 1900 Plt [id number]) BMP normal; A1C 8.4% He has hemochromatosis, [...] and Pneumonia in 10/23 Visit Vitals BP 114/70 Pulse 83 Ht 1.651 m (5' 5 ) Wt 77.8 kg (171 lb 8.3 oz) BMI 28.54 kg/m?? Smoking Status Former Smoker BSA 1.89 m?? Physical exam General appearance well developed well-nourished with no respiratory distress, cyanosis HEENT EOMI, PERRLA normal appearance of nose, ears, mouth and face Neck no Thyromegaly, mass or lymphadenopathy Chest BSE and NBS Heart RRR, normal S1S2, no M/R/G Abdomen soft, no distension, tenderness or mass Extremities no edema Musculoskeletal No deformity Psychiatric Mood and Affect normal, Behavior normal. 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 Discussion/Summary 71 yo man with Hemochromatosis, T2DM and subclinical hypothyroidism. ?? 1) T2DM - high A1C/FS, no hypoglycemia, increase the dose to 26 units TID today and continue metformin 500 mg BID ?? Humalog 75/25 26 units with breakfast [...] butter + cracker, protein bar) before exercise ?? Encourage more activity, diabetic diet, lose weight ?? 2) Eye - follow blade aligner ?? 3) HTN - continue atenolol ?? 4) Kidney - no CKD ?? 5) HDL - continue Zetia and Praluent, if insurance wont approve it, had normal LFT, then we can addpravastatin 20 mg daily 6) Subclinical Hypothyroidism - continue levothyroxine 25 mcg daily ?? 7) Hemochromatosis: GI discharged him 8) Vitamin D deficiency - takes vitamin D ?? RTC 6 months A total time of 25 minutes was spent by addressing the current illness, reviewing records (prior imaging, lab work, etc), and formulating a plan. The patient is agreeable to the plan and all pertinent questions were answered. documented in this encounter Plan of Treatment Upcoming Encounters Date Type Department Care Team (Late st Contact Info) Description 12/16/2024 12:00 PM EST [facility] [address], [address] [place] [address] Jason Romero MD [address] [place] [address] 12/30/2024 1:30 PM EST Office Visit [facility] [place] [address], [address] [place] [address] Vivian Macias S, OD [address] [place] [address] documented as of this encounter Procedures Procedure Name Priority Date/Time Associated Diagnosis Comments POCT GLYCOSYLATED HEMOGLOBIN (HGB A1C) Routine 08/22/2021 3:06 PM EDT Type 2 diabetes mellitus without complication, with long-term current use of insulin ([facility]) documented in this encounter Results * Vitamin D 25 hydroxy (08/22/2021 3:53 PM EDT) Vitamin D 25 Hydroxy 47.3 20.0 - 80.0 ng/mL 08/22/2021 8:43 PM EDT [facility] Comment: Vitamin D, 25-Hydroxy reference range, age 18 years and up: Deficiency: ? <12 ng/mL Insufficiency: ?12 to 19 ng/mL Sufficiency: ?20 to 80 ng/mL Possible toxicity: ??>100 ng/mL Blood Venous blood specimen / Unknown Venipuncture / Unknown 08/22/2021 3:53 PM EDT 08/22/2021 3:53 PM EDT us Jason Romero MD LAB BLOOD ORDERABLES Final Result Performing Organization Address City/[facility]/ZIP Co de Phone Number [facility]ALTH[facility] [address] [place] [address] * (ABNORMAL) Lipid panel (08/22/2021 3:53 PM EDT) Cholesterol, Plasma 177 <200 mg/dL 08/22/2021 6:43 PM EDT [facility] Comment: Cholesterol Reference Range (age >17 years): Desirable? <200 mg/dL Borderline? 200 to 239 mg/dL Undesirable? >239 mg/dL HDL 33(L) >=40 mg/dL 08/22/2021 6:43 PM EDT [facility] Comment: HDL Cholesterol Reference Ranges (age >17 years): Female, acceptable? > or = 50 mg/dL Male, acceptable? > or = 40 mg/dL Triglycerides, Plasma 572(H) <150 mg/dL 08/22/2021 6:43 PM EDT [facility] Comment: Triglyceride Reference Range (age >17 years): Desirable:?? <150 mg/dL Borderline high:?? 150 to 199 mg/dL High:?? 200 to 499 mg/dL Very high:?? >499 mg/dL Increased risk of pancreatitis:?? >1000 mg/dL Cholesterol/HDL Ratio 5 08/22/2021 6:43 PM EDT [facility] Blood Venous blood specimen / Unknown Venipuncture / Unknown 08/22/2021 3:53 PM EDT 08/22/2021 3:53 PM EDT Jason Romero MD LAB BLOOD ORDERABLES Final Result [facility] [address] [place] [address] * T4, free (08/22/2021 3:53 PM EDT) Pathologist [facility] Free T4, Plasma 1.0 0.8 - 1.7 ng/dL 08/22/2021 6:43 PM EDT [facility] Blood Venous blood specimen / Unknown Venipuncture / Unknown 08/22/2021 3:53 PM EDT 08/22/2021 3:53 PM EDT Jason Romero MD LAB BLOOD ORDERABLES Final Result [facility] [address] [place] [address] * TSH (08/22/2021 3:53 PM EDT) Pathologist [facility] Thyroid Stimulating Hormone, Plasma 2.97 0.40 - 4.20 uIU/mL 08/22/2021 6:43 PM EDT [facility] Blood Venous blood specimen / Unknown Venipuncture / Unknown 08/22/2021 3:53 PM EDT 08/22/2021 3:53 PM EDT Jason Romero MD LAB BLOOD ORDERABLES Final Result Performing Organization Address City/[facility]/ZIP Co de Phone Number [facility] [address] [place] [address] * (ABNORMAL) POCT glycosylated hemoglobin (Hb A1C) docked device (08/22/2021 3:06 PM EDT) [facility] POCT Hemoglobin A1C 8.0(A) 4.4 - 6.6 % [facility] Kit Lot Number n/a [facility] Kit Expiration Date n/a [facility] Blood Venous blood specimen / Unknown 08/22/2021 3:06 PM EDT us Jason Romero MD POINT OF CARE TEST ENTER/ED IT ORDERABLES Final Result Performing Organization Address City/[facility]/ZIP Co de Phone Number [facility] [address] [place] [address] documented in this encounter Visit Diagnoses Diagnosis Type 2 diabetes mellitus without complication, with long-term current use of insulin ([facility])- Primary 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
--- OUTSIDE RECORDS SUMMARY | 2024-09-18 10:21 | XMS_ITS | Encounter Summary ---
Author Organization Healthcare Address [address] [place] [address] Care Team Providers Care Metal Riveting Machine Operator Name Role Phone Rocky Almanzar MD Primary Care Provider [phone] Encounter Details Date Type Department Care Team (Late st Contact Info) Description 08/13/2021 Abstract [facility] [address] [place] [address] Rocky Null MD [address] [address] Social History Tobacco Use Types [...] Description 12/16/2024 12:00 PM EST Office Visit [facility] Endocrinology [address] , [address] [place] [address] Jason Romero MD [address] [place] [address] 12/30/2024 1:30 PM EST Office Visit [facility] [place] [address], [address] [place] [address] Vivian Macias S, OD [address] [place] [address] documented as of this encounter Visit Diagnoses Not on filedocumented in this encounter Additional Health Concerns Infection Onset Date Last Indicated Resolved Time MRSA 03/30/2021 03/30/2021 Assessment Noted Time A fall risk assessment has been complete d for the patient 06/07/2021 9:54 AM EDT documented as of this encounter Care Teams Metal Riveting Machine Operator Relationship Specialty Start Date End Date Rocky Almanzar MD [address] [place] [address] PCP - General 03/18/21 documented as of this encounter
--- OUTSIDE RECORDS SUMMARY | 2024-09-18 10:21 | XMS_ITS | Encounter Summary ---
Author Organization Healthcare Address [address] [place] [address] Care Team Providers Care Healthcare Corporate Account Director Name Role Phone Unavailable Primary Care Provider Unavailabl e Encounter Details Date Type Department Care Team (Late st Contact Info) Description 08/29/2016 [facility] Vitals Encounter [facility] [address] [place] [address] ProviderElvis MD [address] [place] [address] Social History Tobacco Use Types Packs/Day [...] Weight 74.8 kg (164 lb 15.9 oz) 016 10:22 AM EDT Height 165.1 cm (5' 5 ) 08/29/2016 10:2 2 AM EDT Body Mass Index 27.46 08/29/2016 10:22 AM EDT documented in this encounter Plan of Treatment Upcoming Encounters Date Type Department Care Team (Late Contact Info) Description 12/16/2024 12:00 PM EST [facility] [address] , [address] [place] [address] Jason Romero MD [address] [place] [address] 12/30/2024 1:30 PM EST Office Visit [facility] [place] [address], [address] [place] [address] Vivian Macias S, OD [address] [place] [address] documented as of this encounter Visit Diagnoses Not on filedocumented in this encounter
--- OUTSIDE RECORDS SUMMARY | 2024-09-18 10:21 | XMS_ITS | Encounter Summary ---
Author Organization Healthcare Address [address] [place] [address] Care Team Providers Care Groundskeeper Supervisor Name Role Phone Rocky Almanzar MD Primary Care Provider [phone] Reason for Visit * Reason Comments Follow-up 1 year, Afib Encounter Details Date Type Department Care Team (Late st Contact Info) Description 06/07/2021 9:45 AM EDT Office Visit [facility] [place] [address] [place] [address] Jeremiah Porras MD [address] [place] [address] Atrial fibrillation, unspecified type (CMS/HCC) (Primary Dx) Social History Tobacco Use Types [...] have Coronavirus / COVID-19? No / Unsure 06/07/2021 9:37 AM EDT documented as of this encounter Last Filed Vital Signs Vital Sign Reading Time Taken Comments Blood Pressure 110/72 06/07/2021 9:50 AM EDT Pulse 72 06/07/2021 9:50 AM EDT Temperature - - Respiratory Rate - - Oxygen Saturation 96% 06/07/2021 9:50 AM EDT Inhaled Oxygen Concentration - - Weight 79.5 kg (175 lb 4.3 oz) 06/07/2021 9:50 A M EDT Height 165.1 cm (5' 5 ) 06/07/2021 9:50 AM EDT Body Mass Index 29.17 06/07/2021 9:50 AM EDT documented in this encounter Miscellaneous Notes * Progress Notes - Fabi Lawton NP - 06/07/2021 9:45 AM EDT Images from the original note were not included. Electrophysiology Follow Up Note Date of Visit 06/07/21 Patient Jose Luis Trevino [address] [address] PCP Rocky Almanzar MD Chief Complaint Chief Complaint Patient presents with ??? Follow-up 1 year, Afib SUBJECTIVE History of Present Illness Jose Luis Trevino is a 71 y.o. male who presents today in the electrophysiology clinic for follow up ofatrial fibrillation. His history is significant for PAF/atrial flutter, HTN, DM, and HLP. He had been tried on Flecainide but had atrial fibrillation refractory to this. He underwent atrial fibrillation ablation 06/04/19. He denies recurrence of atrial fibrillation since ablation. ?? Patient Active Problem List Diagnosis ??? Abnormal US (ultrasound) of abdomen ??? Adenomatous colon polyp ??? Afib (CMS/HCC) ??? DEYSI positive ??? Astigmatism of both eyes ??? Bacterial pneumonia ??? Bilateral myopia ??? Bilateral presbyopia ??? Bilateral sensorineural hearing loss ??? Chronic fatigue ??? Conjunctivitis, acute ??? Pancreatic lesion ??? Diabetes mellitus type 2 without retinopathy (CMS/HCC) ??? Epiretinal membrane (ERM) of both eyes ??? Exercise hypoxemia ??? Hypothyroidism ??? Infection or inflammatory reaction due to other internal prosthetic device, implant, or graft ??? Iron deficiency ??? Leukopenia ??? Liver lesion ??? Nuclear sclerosis of both eyes ??? Palpitations ??? Pleural thickening ??? Restrictive pattern present on pulmonary function testing ??? Wound infection after surgery Current Medications Current Outpatient Medications: ??? Alirocumab (Praluent) 75 MG/ML solution auto-injector, Praluent 75 mg every 2 weeks, Disp: , Rfl: ??? Aspirin Buf,TzLprm-UdDows-ViW, 81 MG tablet, 1 tab(s) orally once a day, Disp: , Rfl: ??? atenolol (Tenormin) 25 MG tablet, Take 1 tablet daily, Disp: , Rfl: ??? cholecalciferol (Vitamin D-3) 25 MCG (1000 UT) tablet, 1 tab(s) orally once a day, Disp: , Rfl: ??? ezetimibe (Zetia) 10 MG tablet, 1 tab(s) orally once a day, Disp: , Rfl: ??? fluticasone (Flonase) 50 MCG/ACT nasal spray, instill 1 SPRAY IN EACH NOSTRIL EVERY DAY, Disp: , Rfl: ??? insulin lispro protamine-insulin lispro (HumaLOG MIX 75/25 KWIKPEN) (75-25) 100 UNIT/ML inj pen, inject 18 units before each meal tid, adjust as directed, Disp: , Rfl: ??? levothyroxine (Synthroid, Levoxyl) 25 MCG tablet, 1 tab(s) orally once a day, Disp: , Rfl: ??? metFORMIN (Glucophage) 500 MG tablet, Take 1 tablet (500 mg total) by mouth 2 (two) times a daywith meals., Disp: 60 tablet, Rfl: 2 ??? methylPREDNISolone (Medrol Dospak) 4 MG tablets, TAKE ACCORDING TO PACKAGE INSTRUCTIONS --TAKE WITH FOOD-- -- FINISH ALL MEDICINE --, Disp: , Rfl: ??? NON FORMULARY, Please draw CBC w/ diff and Ferritin every month. Fax results to: [phone] Attn: Mai., Disp: , Rfl: ??? NON FORMULARY, Patient can donate 500 ml of blood every month, if ferritin is greater than 50. Please call [phone] with any concerns., Disp: , Rfl: ??? pen needle, diabetic (B-D UF III MINI PEN NEEDLES) 31G X 5 MM misc, use two per day to inject insulin, Disp: , Rfl: Allergies Allergies Allergen Reactions ??? Cephalexin Itching and Unknown Review of Systems 14 Point ROS reviewed and is otherwise negative except as per HPI. OBJECTIVE Vitals Visit Vitals BP 110/72 Pulse 72 Ht 1.651 m (5' 5 ) Wt 79.5 kg (175 lb 4.3 oz) SpO2 96% BMI 29.17 kg/m?? Physical Exam Physical Exam Constitutional: Appearance: Normal appearance. He is normal weight. HENT: Head: Normocephalic and atraumatic. Mouth/Throat: Mouth: Mucous membranes are moist. Eyes: Extraocular Movements: Extraocular movements intact. Conjunctiva/sclera: Conjunctivae normal. Cardiovascular: Rate and Rhythm: Normal rate and regular rhythm. Pulses: Normal pulses. Heart sounds: Normal heart sounds. No murmur heard. Pulmonary: Effort: Pulmonary effort is normal. No respiratory distress. Breath sounds: Normal breath sounds. No stridor. No wheezing, rhonchi or rales. Abdominal: General: Abdomen is flat. Bowel sounds are normal. There is no distension. Palpations: There is no mass. Tenderness: There is no abdominal tenderness. There is no rebound. Musculoskeletal: General: No swelling or tenderness. Normal range of motion. Right lower leg: No edema. Left lower leg: No edema. Skin: General: Skin is warm and dry. Neurological: General: No focal deficit present. Mental Status: He is alert and oriented to person, place, and time. Psychiatric: Mood and Affect: Mood normal. Behavior: Behavior normal. Diagnostics Procedures No echocardiogram results found for the past 12 months Lab Review Lab Results Component Value Date/Time WBC 2.30 (L) 02/23/2021 1333 WBC 3.25 (L) 02/23/2020 1427 WBC 4.16 06/05/2019 0331 RBC 4.44 (L) 02/23/2021 1333 RBC 4.77 02/23/2020 1427 RBC 3.86 (L) 06/05/2019 0331 HGB 14.5 02/23/2021 1333 HGB 14.6 02/23/2020 1427 HGB 12.8 (L) 06/05/2019 0331 HCT 40.6 02/23/2021 1333 HCT 42.1 02/23/2020 1427 HCT 37.9 (L) 06/05/2019 0331 Lab Results Component Value Date/Time BUN 14 02/23/2021 1333 BUN 15 02/23/2020 1427 BUN 11 08/01/2019 0903 NA 137 02/23/2021 1333 NA 136 02/23/2020 1427 NA 136 08/01/2019 0903 K 4.2 02/23/2021 1333 K 4.3 02/23/2020 1427 K 4.3 08/01/2019 0903 CL 102 02/23/2021 1333 CL 100 02/23/2020 1427 CL 99 08/01/2019 0903 Lab Results Component Value Date/Time AST 36 02/23/2021 1333 AST 27 02/23/2020 1427 AST 22 08/01/2019 0903 ALT 27 02/23/2021 1333 ALT 22 02/23/2020 1427 ALT 19 08/01/2019 0903 ALKPHOS 199 (H) 02/23/2021 1333 ALKPHOS 178 (H) 02/23/2020 1427 ALKPHOS 169 (H) 08/01/2019 0903 Lab Results Component Value Date/Time CHOL 162 04/22/2020 0924 CHOL 126 08/01/2019 0903 HDL 41 04/22/2020 0924 HDL 41 08/01/2019 0903 Lab Results Component Value Date/Time HGBA1C 8.4 01/13/2021 1342 HGBA1C 7.8 10/15/2020 1200 HGBA1C 10.0 04/22/2020 0817 Lab Results Component Value Date/Time TSH 3.40 08/01/2019 0903 ASSESSMENT AND PLAN Visit Diagnoses and Orders 1. Atrial fibrillation, unspecified type (CMS/HCC) ECG Adult Discussion Summary Mr Trevino is well without recurrence of atrial fibrillation. Follow up in EP clinic as needed. A total time of 25 minutes was spent by addressing the current illness, reviewing records (prior imaging, lab work, etc), and formulating a plan. The patient is agreeable to the plan and all pertinent questions were answered. Echo Lawton APRN documented in this encounter Plan of Treatment Upcoming Encounters Date Type Department Care Team (Late st Contact Info) Description 12/16/2024 12:00 PM EST Office Visit [facility] Endocrinology [address] [place] [address] Jason Romero MD [address] [place] [address] 12/30/2024 1:30 PM EST Office Visit [facility] [address], [address] [place] [address] Vivian Macias S, OD [address] [place] [address] documented as of this encounter Procedures Procedure Name Priority Date/Time Associated Diagnosis Comments ECG ADULT Routine 06/07/2021 9:46 AM EDT Atrial fibrillation, unspecified type (CMS/HCC) documented in this encounter Results * ECG Adult (06/07/2021 9:46 AM EDT) EKG DIAGNOSIS CLASS Abnormal MUSE ECG Ventricular Rate 71 BPM MUSE ECG Atrial Rate 71 BPM MUSE ECG HI Interval 148 ms MUSE ECG QRSD Interval 86 ms MUSE ECG QT Interval 418 ms MUSE ECG QTC Interval 454 ms MUSE ECG P [place] 11 degrees MUSE ECG R [place] -31 degrees MUSE ECG T Wave [place] -7 degrees MUSE ECG Diagnosis Normal sinus rhythm MUSE ECG Diagnosis Left axis deviation MUSE ECG Diagnosis Nonspecific T wave abnormality MUSE ECG Diagnosis Abnormal ECG MUSE ECG Diagnosis Confirmed by Grzegorz Rod ([id number]) on 06/08/2021 12:06:09 PM MUSE ECG 06/07/2021 9:46 AM EDT 06/08/2021 12:06 PM EDT us Jeremiah Porras MD ECG ORDERABLES Final Resul t MUSE ECG documented in this encounter Visit Diagnoses Diagnosis Atrial fibrillation, unspecified type (CMS/HCC)- Primary documented in this encounter Additional Health Concerns Infection Onset Date Last Indicated Resolved Time MRSA 03/30/2021 03/30/2021 Assessment Noted Time A fall risk assessment has been complete d for the patient 06/07/2021 9:54 AM EDT documented as of this encounter Care Teams Groundskeeper Supervisor Relationship Specialty Start Date End Date Rocky Almanzar MD [address] [place] [address] PCP - General 03/18/21 documented as of this encounter
--- OUTSIDE RECORDS SUMMARY | 2024-09-18 10:21 | XMS_ITS | Encounter Summary ---
Author Organization Healthcare Address [address] [place] [address] Care Team Providers Care Child Psychology Teacher Name Role Phone Unavailable Primary Care Provider Unavailabl e Encounter Details Date Type Department Care Team (Late st Contact Info) Description 03/14/2017 [facility] Vitals Encounter [facility] [address] [place] [address] ProviderElvis MD [address] [place] [address] Social History Tobacco Use Types Packs/Day [...] - Inhaled Oxygen Concentration - - Weight 76.2 kg (167 lb 15.9 oz) 03/14/2017 2:45 PM EDT Height 165.1 cm (5' 5 ) 03/14/2017 2:45 PM EDT Body Mass Index 27.96 03/14/2017 2:45 PM EDT documented in this encounter Plan of Treatment Upcoming Encounters Date Type Department Care Team (Late Contact Info) Description 12/16/2024 12:00 PM EST [facility] [address], [address] [place] [address] Jason Romero MD [address] [place] [address] 12/30/2024 1:30 PM EST Office Visit [facility] [place] [address], [address] [place] [address] Vivian Macias, OD [address] [place] [address] documented as of this encounter Visit Diagnoses Not on filedocumented in this encounter
--- OUTSIDE RECORDS SUMMARY | 2024-09-18 10:21 | XMS_ITS | Encounter Summary ---
Author Organization Healthcare Address [address] [place] [address] Care Team Providers Care Type Casting Machine Operator Name Role Phone Unavailable Primary Care Provider Unavailabl e Encounter Details Date Type Department Care Team (Late st Contact Info) Description 08/03/2016 [facility] Vitals Encounter [facility] [address] [place] [address] ProviderElvis MD [address] [place] [address] Social History Tobacco Use Types Packs/Day [...] - - Weight 77.1 kg (170 lb) 08/03/2016 11:17 AM EDT Height 165.1 cm (5' 5 ) 08/03/2016 11:17 AM EDT Body Mass Index 28.29 08/03/2016 11:17 AM EDT documented in this encounter Plan of Treatment Upcoming Encounters Date Type Department Care Team (Late Contact Info) Description 12/16/2024 12:00 PM EST Office Visit [facility] [address] , [address] [place] [address] Jason Romero MD [address] [place] [address] 12/30/2024 1:30 PM EST Office Visit [facility] [place] [address], [address] [place] [address] Vivian Macias, OD [address] [place] [address] documented as of this encounter Visit Diagnoses Not on filedocumented in this encounter
--- OUTSIDE RECORDS SUMMARY | 2024-09-18 10:21 | XMS_ITS | Encounter Summary ---
Author Organization [facility] Address [address] [place] [address] Care Team Providers Care Solar Electric Installer Name Role Phone Rocky Almanzar MD Primary Care Provider [phone] Encounter Details Date Type Department Care Team (Late Contact Info) Description 08/03/2021 Orders Only [facility] Endocrinology [address] , [address] [place] [address] Azucena Borges RN [address] [address] Social History Tobacco Use Types Packs/Day [...] Description 12/16/2024 12:00 PM EST Office Visit [facility] Endocrinology [address] , [address] [place] [address] Jason Romero MD [address] [address] 12/30/2024 1:30 PM EST Office Visit [facility] [place] [address], [address] [place] [address] Vivian Macias S, OD [address] [place] [address] documented as of this encounter Visit Diagnoses Not on filedocumented in this encounter Additional Health Concerns Infection Onset Date Last Indicated Resolved Time MRSA 03/30/2021 03/30/2021 Assessment Noted Time A fall risk assessment has been complete d for the patient 06/07/2021 9:54 AM EDT documented as of this encounter Care Teams Solar Electric Installer Relationship Specialty Start Date End Date Rocky Almanzar MD [address] [place] [address] PCP - General 03/18/21 documented as of this encounter
--- OUTSIDE RECORDS SUMMARY | 2024-09-18 10:21 | XMS_ITS | Encounter Summary ---
Author Organization [facility] Address [address] [place] [address] Care Team Providers Care Oil Separator Name Role Phone Unavailable Primary Care Provider Unavailabl e Encounter Details Date Type Department Care Team (Late st Contact Info) Description 05/05/2020 [facility]ante[facility]et Encounter HISTORICAL OPHTHALMOLOGY [address] [place] [address] Rocky Null MD [address] [place] [address] Social History Tobacco Use Types [...] Description 12/16/2024 12:00 PM EST Office Visit [facility] Endocrinology [address] [place] [address] Jason Romero MD [address] [place] [address] 12/30/2024 1:30 PM EST Office Visit [facility] [address], [address] [place] [address] Vivian Macias, OD [address] [place] [address] documented as of this encounter Visit Diagnoses Not on filedocumented in this encounter
--- OUTSIDE RECORDS SUMMARY | 2024-09-18 10:21 | XMS_ITS | Encounter Summary ---
Author Organization Healthcare Address [address] [place] [address] Care Team Providers Care Producer Director Name Role Phone Unavailable Primary Care Provider Unavailabl e Encounter Details Date Type Department Care Team (Late st Contact Info) Description 05/18/2016 [facility] Vitals En[facility] [address] [place] [address] ProviderElvis MD [address] [place] [address] Social History Tobacco Use Types Packs/Day [...] - - Weight 77.1 kg (170 lb) 05/18/2016 4:39 PM EDT Height 165.1 cm (5' 5 ) 05/18/2016 4:39 PM EDT Body Mass Index 28.29 05/18/2016 4:39 PM EDT documented in this encounter Plan of Treatment Upcoming Encounters Date Type Department Care Team (Late Contact Info) Description 12/16/2024 12:00 PM EST Office Visit [facility] [address] , [address] [place] [address] Jason Romero MD [address] [place] [address] 12/30/2024 1:30 PM EST Office Visit [facility] [place] [address], [address] [place] [address] Vivian Macias, OD [address] [place] [address] documented as of this encounter Visit Diagnoses Not on filedocumented in this encounter
--- OUTSIDE RECORDS SUMMARY | 2024-09-18 10:21 | XMS_ITS | Encounter Summary ---
Author Organization Healthcare Address [address] [place] [address] Care Team Providers Care Spool Tender Name Role Phone Unavailable Primary Care Provider Unavailabl e Encounter Details Date Type Department Care Team (Late st Contact Info) Description 08/15/2016 [facility] Vitals Encounter [facility] [address] [place] [address] ProviderElvis MD [address] [place] [address] Social History Tobacco Use Types Packs/Day [...] Weight 74.8 kg (164 lb 15.9 oz) 08/15/2016 8:34 AM EDT Height 165.1 cm (5' 5 ) 08/15/2016 8:34 AM EDT Body Mass Index 27.46 08/15/2016 8:34 AM EDT documented in this encounter Plan of Treatment Upcoming Encounters Date Type Department Care Team (Late Contact Info) Description 12/16/2024 12:00 PM EST [facility] [address] [place] [address] Jason Romero MD [address] [place] [address] 12/30/2024 1:30 PM EST Office Visit [facility] [place] [address] [place] [address] Vivian Macias, OD [address] [place] [address] documented as of this encounter Visit Diagnoses Not on filedocumented in this encounter
--- OUTSIDE RECORDS SUMMARY | 2024-09-18 10:21 | XMS_ITS | Encounter Summary ---
Author Organization Healthcare Address [address] [place] [address] Care Team Providers Care Nursing Scheduler Name Role Phone Unavailable Primary Care Provider Unavailabl e Encounter Details Date Type Department Care Team (Late Contact Info) Description 09/12/2016 [facility] Vitals Encounter [facility] [address] [place] [address] ProviderElvis MD [address] [place] [address] Social History Tobacco Use Types Packs/Day [...] - Inhaled Oxygen Concentration - - Weight 71.7 kg (158 lb 0.1 oz) 09/12/2016 12:14 PM EST Height 165.1 cm (5' 5 ) 09/12/2016 12:14 PM EST Body Mass Index 26.29 09/12/2016 12:14 PM EST documented in this encounter Plan of Treatment Upcoming Encounters Date Type Department Care Team (Late Contact Info) Description 12/16/2024 12:00 PM EST Office Visit [facility] [address] [place] [address] Jason Romero MD [address] [place] [address] 12/30/2024 1:30 PM EST Office Visit [facility] [place] [address] [place] [address] Vivian Macias, OD [address] [place] [address] documented as of this encounter Visit Diagnoses Not on filedocumented in this encounter
--- OUTSIDE RECORDS SUMMARY | 2024-09-18 10:21 | XMS_ITS | Encounter Summary ---
Author Organization [facility] Address [address] [place] [address] Care Team Providers Care Programming Instructor Name Role Phone Rocky Almanzar MD Primary Care Provider [phone] Reason for Visit * Reason Comments Med Refill Encounter Details Date Type Department Care Team (Late Contact Info) Description 05/20/2021 Refill [facility] [address], [address] [place] [address] Jason Romero MD [address] [place] [address] Social History Tobacco Use Types [...] Description 12/16/2024 12:00 PM EST Office Visit [facility] [address], [address] [place] [address] Jason Romero MD [address] [place] [address] 12/30/2024 1:30 PM EST Office Visit [facility] [address], [address] [place] [address] Vivian Macias S, OD [address] [place] [address] documented as of this encounter Visit Diagnoses Not on filedocumented in this encounter Additional Health Concerns Infection Onset Date Last Indicated Resolved Time MRSA 03/30/2021 03/30/2021 documented as of this encounter Care Teams Programming Instructor Relationship Specialty Start Date End Date Rocky Almanzar MD [address] [place] [id number] PCP - General 03/18/21 documented as of this encounter
--- OUTSIDE RECORDS SUMMARY | 2024-09-18 10:21 | XMS_ITS | Encounter Summary ---
Author Organization [facility] Address [address] [place] [address] Care Team Providers Care General Farmworker Name Role Phone Rocky Almanzar MD Primary Care Provider Encounter Details Date Type Department Care Team (Latest Contact Info) Description 06/29/2021 Travel Social History Tobacco Use Types Packs/Day [...] Description 12/16/2024 12:00 PM EST Office Visit [facility] End[facility] [address], [address] [place] [address] Jason Romero MD [address] [place] [address] 12/30/2024 1:30 PM EST Office Visit [facility] [place] [address], [address] [place] [address] Vivian Macias S, OD [address] [place] [address] documented as of this encounter Visit Diagnoses Not on filedocumented in this encounter Additional Health Concerns Infection Onset Date Last Indicated Resolved Time MRSA 03/30/2021 03/30/2021 Assessment Noted Time A fall risk assessment has been complete d for the patient 06/07/2021 9:54 AM EDT documented as of this encounter Care Teams General Farmworker Relationship Specialty Start Date End Date Rocky Almanzar MD [address] [place] [address] PCP - General 03/18/21 documented as of this encounter
--- OUTSIDE RECORDS SUMMARY | 2024-09-18 10:21 | XMS_ITS | Encounter Summary ---
Author Organization [facility] Address [address] [place] [address] Care Team Providers Care Wrapper Stripper Name Role Phone Rocky Almanzar MD Primary Care Provider [phone] Reason for Visit * Reason Comments Med Refill Encounter Details Date Type Department Care Team (Late Contact Info) Description 08/13/2021 [facility] [address], [address] [place] [address] Jason Romero MD [address] [place] [address] Type 2 diabetes mellitus with other specified complication, with long-term current use of insulin ([facility]) (Primary Dx) Social History [...] Description 12/16/2024 12:00 PM EST [facility] [address], [address] [place] [address] Jason Romero MD [address] [place] [address] 12/30/2024 1:30 PM EST Office Visit [facility] [place] [address], [address] [place] [address] Vivian Macias S, OD [address] [place] [address] documented as of this encounter Visit Diagnoses Diagnosis Type 2 diabetes mellitus with other specified complication, with long-term current use of insulin ([facility])- Primary documented in this encounter Additional Health Concerns Infection Onset Date Last Indicated Resolved Time MRSA 03/30/2021 03/30/2021 Assessment Noted Time A fall risk assessment has been complete d for the patient 06/07/2021 9:54 AM EDT documented as of this encounter Care Teams Wrapper Stripper Relationship Specialty Start Date End Date Rocky Almanzar MD [address] [place] [address] PCP - General 03/18/21 documented as of this encounter
--- OUTSIDE RECORDS SUMMARY | 2024-09-18 10:21 | XMS_ITS | Encounter Summary ---
Author Organization Healthcare Address [address] [place] [address] Care Team Providers Care Agile Business Analyst Name Role Phone Unavailable Primary Care Provider Unavailabl e Encounter Details Date Type Department Care Team (Late Contact Info) Description 09/25/2017 [facility] AEHR Vitals Encounter [facility] OUTPATIENT CONVERSIONS [address] [place] [address] ProviderElvis MD [address] [place] [address] Social History Tobacco Use Types Packs/Day [...] Weight 74.8 kg (164 lb 15.9 oz) 09/25/2017 6:44 PM EST Height 165.1 cm (5' 5 ) 09/25/2017 6:44 PM EST Body Mass Index 27.46 09/25/2017 6:44 PM EST documented in this encounter Plan of Treatment Upcoming Encounters Date Type Department Care Team (Late Contact Info) Description 12/16/2024 12:00 PM EST Office Visit [facility] [address] , [address] [place] [address] Jason Romero MD [address] [place] [address] 12/30/2024 1:30 PM EST Office Visit [facility] [place] [address], [address] [place] [address] Vivian Macias, OD [address] [place] [address] documented as of this encounter Visit Diagnoses Not on filedocumented in this encounter
--- OUTSIDE RECORDS SUMMARY | 2024-09-18 10:21 | XMS_ITS | Encounter Summary ---
Author Organization Healthcare Address [address] [place] [address] Care Team Providers Care Bedspread Inspector Name Role Phone Rocky Almanzar MD Primary Care Provider [phone] Encounter Details Date Type Department Care Team (Late st Contact Info) Description 08/15/2021 Abstract [facility] [address] [place] [address] Rocky Null MD [address] [address] Social History Tobacco Use Types [...] Description 12/16/2024 12:00 PM EST Office Visit [facility] Endocrinology [address] , [address] [place] [address] Jason Romero MD [address] [place] [address] 12/30/2024 1:30 PM EST Office Visit [facility] [place] [address], [address] [place] [address] Vivian Macias S, OD [address] [place] [address] documented as of this encounter Visit Diagnoses Not on filedocumented in this encounter Additional Health Concerns Infection Onset Date Last Indicated Resolved Time MRSA 03/30/2021 03/30/2021 Assessment Noted Time A fall risk assessment has been complete d for the patient 06/07/2021 9:54 AM EDT documented as of this encounter Care Teams Bedspread Inspector Relationship Specialty Start Date End Date Rocky Almanzar MD [address] [place] [address] PCP - General 03/18/21 documented as of this encounter
--- OUTSIDE RECORDS SUMMARY | 2024-09-18 10:21 | XMS_ITS | Encounter Summary ---
Author Organization [facility] Address [address] [place] [address] Care Team Providers Care Child Neurologist Name Role Phone Rocky Almanzar MD Primary Care Provider [phone] Encounter Details Date Type Department Care Team (Late Contact Info) Description 08/03/2021 Telephone [facility] Endocrinology [address], [address] [place] [address] Jason Romero MD [address] [place] [address] Social History Tobacco Use Types [...] Office Visit [facility] Endocrinology [address], [address] [place] [address] Jason Romero MD [address] [place] [address] 12/30/2024 1:30 PM EST Office Visit [facility] [place] [address] [place] [address] Vivian Macias S, OD [address] [place] [address] documented as of this encounter Visit Diagnoses Not on filedocumented in this encounter Additional Health Concerns Infection Onset Date Last Indicated Resolved Time 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
--- OUTSIDE RECORDS SUMMARY | 2024-09-18 10:21 | XMS_ITS | Encounter Summary ---
Author Organization Healthcare Address [address] [place] [address] Care Team Providers Care Costume Shop Manager Name Role Phone Unavailable Primary Care Provider Unavailabl e Encounter Details Date Type Department Care Team (Late st Contact Info) Description 02/20/2017 [facility]HR Vitals En[facility] [address] [place] [address] ProviderElvis MD [address] [place] [address] Social History Tobacco Use Types Packs/Day [...] - Inhaled Oxygen Concentration - - Weight 75.1 kg (165 lb 8 oz) 02/20/2017 8:45 AM EDT Height 165.1 cm (5' 5 ) 02/20/2017 8:45 AM EDT Body Mass Index 27.54 02/20/2017 8:45 AM EDT documented in this encounter Plan of Treatment Upcoming Encounters Date Type Department Care Team (Late Contact Info) Description 12/16/2024 12:00 PM EST Office Visit [facility] [address] [place] [address] Jason Romero MD [address] [place] [address] 12/30/2024 1:30 PM EST Office Visit [facility] [place] [address], [address] [place] [address] Vivian Macias, OD [address] [place] [address] documented as of this encounter Visit Diagnoses Not on filedocumented in this encounter
--- OUTSIDE RECORDS SUMMARY | 2024-09-18 10:21 | XMS_ITS | Encounter Summary ---
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); Cataract, nuclear sclerotic senile, left; Cataract, nuclear sclerotic senile, right; Vitreous floaters of both eyes; Insufficiency of tear film of both eyes Social History Tobacco Use [...] Progress Notes - Rocky Null MD - 06/29/2021 9:30 AM EDT DM info given; discussed value of regulating blood glucose levels and lifestyle influences Signs/symptoms of retinal detachment discussed--need to contact us BRANNON if these arise ATs qid/prn ou Discussed cataracts; schedule right eye (OD) 09/05 & 09/19 OS; preop 08/19 @ 10a documented in this encounter Plan of Treatment Upcoming Encounters Date Type Department Care Team (Late st Contact Info) Description 12/16/2024 12:00 PM EST Office Visit [facility] [address] [facility], [address] [place] [address] Jason Romero MD [address] [place] [address] 12/30/2024 1:30 PM EST Office Visit [facility] [address], [address] [place] [address] Vivian Macias S, OD [address] [place] [address] documented as of this encounter Visit Diagnoses Diagnosis Diabetes mellitus type 2 without retinopathy (CMS/HCC)- Primary Cataract, nuclear sclerotic senile, left Cataract, nuclear sclerotic senile, right Vitreous floaters of both eyes Insufficiency of tear film of both eyes documented in this encounter Additional Health Concerns Infection Onset Date Last Indicated Resolved Time 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
--- OUTSIDE RECORDS SUMMARY | 2024-09-18 10:21 | XMS_ITS | Encounter Summary ---
Author Organization Healthcare Address [address] [place] [address] Care Team Providers Care Company Pilot Name Role Phone Unavailable Primary Care Provider Unavailabl e Encounter Details Date Type Department Care Team (Late st Contact Info) Description 01/30/2017 [facility] Vitals Encounter [facility] [address] [place] [address] ProviderElvis MD [address] [place] [address] Social History Tobacco Use Types Packs/Day [...] - Inhaled Oxygen Concentration - - Weight 74.4 kg (164 lb) 01/30/2017 2:55 PM EDT Height 165.1 cm (5' 5 ) 01/30/2017 2:55 PM EDT Body Mass Index 27.29 01/30/2017 2:55 PM EDT documented in this encounter Plan of Treatment Upcoming Encounters Date Type Department Care Team (Late Contact Info) Description 12/16/2024 12:00 PM EST Office Visit [facility] [address] [place] [address] Jason Romero MD [address] [place] [address] 12/30/2024 1:30 PM EST Office Visit [facility] [place] [address] [place] [address] Vivian Macias, OD [address] [place] [address] documented as of this encounter Visit Diagnoses Not on filedocumented in this encounter
--- OUTSIDE RECORDS SUMMARY | 2024-09-18 10:21 | XMS_ITS | Encounter Summary ---
Author Organization Healthcare Address [address] [place] [address] Care Team Providers Care Behavioral Geneticist Name Role Phone Unavailable Primary Care Provider Unavailabl e Encounter Details Date Type Department Care Team (Late st Contact Info) Description 06/13/2016 [facility] AEHR Vitals Encounter [facility] [address] [place] [address] ProviderElvis MD [address] [place] [address] Social History Tobacco Use Types Packs/Day [...] - - Weight 77.1 kg (170 lb) 06/13/2016 1:36 PM EDT Height 165.1 cm (5' 5 ) 06/13/2016 1:36 PM EDT Body Mass Index 28.29 06/13/2016 1:36 PM EDT documented in this encounter Plan of Treatment Upcoming Encounters Date Type Department Care Team (Late Contact Info) Description 12/16/2024 12:00 PM EST Office Visit [facility] [address] [place] [address] Jason Romero MD [address] [place] [address] 12/30/2024 1:30 PM EST Office Visit [facility] [place] [address] [place] [address] Vivian Macias, OD [address] [place] [address] documented as of this encounter Visit Diagnoses Not on filedocumented in this encounter
--- OUTSIDE RECORDS SUMMARY | 2024-09-18 10:21 | XMS_ITS | Encounter Summary ---
Author Organization Healthcare Address [address] [place] [address] Care Team Providers Care Make Up Arranger Name Role Phone Rocky Almanzar MD Primary Care Provider [phone] Reason for Visit * Reason Comments Cataract Encounter Details Date Type Department Care Team (Late st Contact Info) Description 08/19/2021 10:00 AM EDT Consult [facility] [address] [place] [address] Rocky Null MD [address] [address] Cataract, nuclear sclerotic senile, right (Primary Dx); Cataract, nuclear sclerotic senile, left Social History Tobacco Use Types Packs/Day Years [...] have Coronavirus / COVID-19? No / Unsure 08/19/2021 9:22 AM EDT documented as of this encounter Miscellaneous Notes * Progress Notes - Rocky Null MD - 08/19/2021 10:00 AM EDT Patient desires cataract surgery left eye due to painless/progressive loss of vision at distance/near with correction and intolerable glare. Severity: sufficient to interfere with activities of daily living, and/or preventing night driving. Assessment/Plan Pt cleared for cataract surgery left eye. Risks/benefits/alternatives discussed. Other contributoryeye diseases ruled out. Visual gain anticipated. Select 19.5/19.0 D TFAT00 10a-noon; [phone] ORA documented in this encounter Plan of Treatment Upcoming Encounters Date Type Department Care Team (Late st Contact Info) Description 12/16/2024 12:00 PM EST Office Visit [facility] Endocr[facility]ology [address], [address] [place] [address] Jason Romero MD [address] [place] [address] 12/30/2024 1:30 PM EST Office Visit [facility] [address], [address] [place] [address] Vivian Macias S, OD [address] [place] [address] documented as of this encounter Visit Diagnoses Diagnosis Cataract, nuclear sclerotic senile, right- Primary Cataract, nuclear sclerotic senile, left documented in this encounter Additional Health Concerns Infection Onset Date Last Indicated Resolved Time 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
--- OUTSIDE RECORDS SUMMARY | 2024-09-18 10:21 | XMS_ITS | Encounter Summary ---
Author Organization Healthcare Address [address] [place] [address] Care Team Providers Care Counter Server Name Role Phone Unavailable Primary Care Provider Unavailabl e Encounter Details Date Type Department Care Team (Late st Contact Info) Description 12/19/2016 Legacy AEHR Vitals Encounter [facility] OUTPATIENT CONVERSIONS [address] [place] [address] ProviderElvis MD [address] [place] [address] Social History Tobacco Use Types Packs/Day [...] - Inhaled Oxygen Concentration - - Weight 75 kg (165 lb 4.8 oz) 12/19/2016 9:17 AM EST Height 165.1 cm (5' 5 ) 12/19/2016 9:17 AM EST Body Mass Index 27.51 12/19/2016 9:17 AM EST documented in this encounter Plan of Treatment Upcoming Encounters Date Type Department Care Team (Late st Contact Info) Description 12/16/2024 12:00 PM EST Office Visit [facility] [address], [address] [place] [address] Jason Romero MD [address] [place] [address] 12/30/2024 1:30 PM EST Office Visit [facility] [place] [address], [address] [place] [address] Vivian Macias, OD [address] [place] [address] documented as of this encounter Visit Diagnoses Not on filedocumented in this encounter
--- OUTSIDE RECORDS SUMMARY | 2024-09-18 10:21 | XMS_ITS | Encounter Summary ---
Author Organization [facility] Address [address] [place] [address] Care Team Providers Care Websphere Commerce Developer Name Role Phone Rocky lAmanzar MD Primary Care Provider [phone] Encounter Details Date Type Department Care Team (Latest Contact Info) Description 05/10/2021 Travel Social History Tobacco Use Types Packs/Day [...] Description 12/16/2024 12:00 PM EST Office Visit [facility] Endocrinology [address], [address] [place] [address] Jason Romero MD [address] [place] [address] 12/30/2024 1:30 PM EST Office Visit [facility] [place] [address], [address] [place] [address] Vivian Macias S, OD [address] [place] [address] documented as of this encounter Visit Diagnoses Not on filedocumented in this encounter Additional Health Concerns Infection Onset Date Last Indicated Resolved Time 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
--- OUTSIDE RECORDS SUMMARY | 2024-09-18 10:21 | XMS_ITS | Encounter Summary ---
Author Organization Healthcare Address [address] [place] [address] Care Team Providers Care Bottom Brusher Name Role Phone Rocky Almanzar MD Primary Care Provider [phone] Encounter Details Date Type Department Care Team (Hamzah Contact Info) Description 06/15/2021 Abstract [facility] [address] [place] [address] Rocky Null MD [address] [address] Social History Tobacco Use Types [...] Description 12/16/2024 12:00 PM EST [facility] [address], [address] [place] [address] Jason Romero MD [address] [place] [address] 12/30/2024 1:30 PM EST Office Visit [facility] [place] [address], [address] [place] [address] Vivian Macias S, OD [address] [place] [address] documented as of this encounter Visit Diagnoses Not on filedocumented in this encounter Additional Health Concerns Infection Onset Date Last Indicated Resolved Time 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
--- OUTSIDE RECORDS SUMMARY | 2024-09-18 10:21 | XMS_ITS | Encounter Summary ---
Author Organization Healthcare Address [address] [place] [address] Care Team Providers Care Dipper And Baker Name Role Phone Unavailable Primary Care Provider Unavailabl e Encounter Details Date Type Department Care Team (Late st Contact Info) Description 05/29/2017 Legacy AEHR Vitals Encounter [facility] CONVERSION[facility] [address] [place] [address] ProviderElvis MD [address] [place] [address] Social History Tobacco Use Types Packs/Day [...] - - Weight 76.7 kg (169 lb 0.1 oz) 05/29/2017 10:38 AM EDT Height 165.1 cm (5' 5 ) 05/29/2017 10:38 AM EDT Body Mass Index 28.12 05/29/2017 10:38 AM EDT documented in this encounter Plan of Treatment Upcoming Encounters Date Type Department Care Team (Late Contact Info) Description 12/16/2024 12:00 PM EST Office Visit [facility] [address], [address] [place] [address] Jason Romero MD [address] [place] [address] 12/30/2024 1:30 PM EST Office Visit [facility] [place] [address], [address] [place] [address] Vivian Macias, OD [address] [place] [address] documented as of this encounter Visit Diagnoses Not on filedocumented in this encounter
--- OUTSIDE RECORDS SUMMARY | 2024-09-18 10:21 | XMS_ITS | Encounter Summary ---
Author Organization [facility] Address [address] [place] [address] Care Team Providers Care Four Corner Former Machine Operator Name Role Phone Rocky Almanzar MD Primary Care Provider [phone] Encounter Details Date Type Department Care Team (Latest Contact Info) Description 08/19/2021 Travel Social History Tobacco Use Types Packs/Day [...] Description 12/16/2024 12:00 PM EST Office Visit [facility] Endocrinology [address], [address] [place] [address] Jason Romero MD [address] [place] [address] 12/30/2024 1:30 PM EST Office Visit [facility] [place] [address], [address] [place] [address] Vivian Macias S, OD [address] [place] [address] documented as of this encounter Visit Diagnoses Not on filedocumented in this encounter Additional Health Concerns Infection Onset Date Last Indicated Resolved Time MRSA 03/30/2021 03/30/2021 Assessment Noted Time A fall risk assessment has been complete d for the patient 08/19/2021 9:44 AM EDT documented as of this encounter Care Teams Four Corner Former Machine Operator Relationship Specialty Start Date End Date Rocky Almanzar MD [address] [place] [address] PCP - General 03/18/21 documented as of this encounter
--- OUTSIDE RECORDS SUMMARY | 2024-09-18 10:21 | XMS_ITS | Encounter Summary ---
Author Organization Healthcare Address [address] [place] [address] Care Team Providers Care Immunologist Name Role Phone Unavailable Primary Care Provider Unavailabl e Encounter Details Date Type Department Care Team (Late st Contact Info) Description 05/04/2016 Legacy AEHR Vitals Encounter [facility] CONVERSIONS [address] [place] [address] ProviderElvis MD [address] [place] [address] Social History Tobacco Use Types Packs/Day [...] - - Weight 77.1 kg (170 lb) 05/04/2016 9:23 AM EDT Height 165.1 cm (5' 5 ) 05/04/2016 9:23 AM EDT Body Mass Index 28.29 05/04/2016 9:23 AM EDT documented in this encounter Plan of Treatment Upcoming Encounters Date Type Department Care Team (Late Contact Info) Description 12/16/2024 12:00 PM EST Office Visit [facility] [address] [place] [address] Jason Romero MD [address] [place] [address] 12/30/2024 1:30 PM EST Office Visit [facility] [place] [address], [address] [place] [address] Vivian Macias, OD [address] [place] [address] documented as of this encounter Visit Diagnoses Not on filedocumented in this encounter
--- OUTSIDE RECORDS SUMMARY | 2024-09-18 10:21 | XMS_ITS | Encounter Summary ---
Author Organization Healthcare Address [address] [place] [address] Care Team Providers Care Fur Sewer Name Role Phone Unavailable Primary Care Provider Unavailabl e Encounter Details Date Type Department Care Team (Late st Contact Info) Description 08/29/2017 Legacy AEHR Vitals Encounter [facility] OUTPATIENT CONVERSIONS [address] [place] [address] ProviderElvis MD [address] [place] [address] Social History Tobacco Use Types Packs/Day [...] - - Weight 76.1 kg (167 lb 12.3 oz) 017 10:08 AM EDT Height - - Body Mass Index 27.92 07/10/2017 8:53 AM EDT documented in this encounter Plan of Treatment Upcoming Encounters Date Type Department Care Team (Late st Contact Info) Description 12/16/2024 12:00 PM EST Office Visit [facility] Endocrinology [address], [address] [place] [address] Jason Romero MD [address] [place] [address] 12/30/2024 1:30 PM EST Office Visit [facility] [place] [address], [address] [place] [address] Vivian Macias S, OD [address] [place] [address] documented as of this encounter Visit Diagnoses Not on filedocumented in this encounter
--- OUTSIDE RECORDS SUMMARY | 2024-09-18 10:21 | XMS_ITS | Encounter Summary ---
Author Organization [facility] Address [address] [place] [address] Care Team Providers Care Project Scheduler Name Role Phone Rocky Almanzar MD Primary Care Provider [phone] Encounter Details Date Type Department Care Team (Latest Contact Info) Description 06/07/2021 Travel Social History Tobacco Use Types Packs/Day [...] Description 12/16/2024 12:00 PM EST Office Visit [facility] Endocrinology [address], [address] [place] [address] Jason Romero MD [address] [place] [address] 12/30/2024 1:30 PM EST Office Visit [facility] [place] [address], [address] [place] [address] Vivian Macias S, OD [address] [place] [address] documented as of this encounter Visit Diagnoses Not on filedocumented in this encounter Additional Health Concerns Infection Onset Date Last Indicated Resolved Time MRSA 03/30/2021 03/30/2021 Assessment Noted Time A fall risk assessment has been complete d for the patient 06/07/2021 9:54 AM EDT documented as of this encounter Care Teams Project Scheduler Relationship Specialty Start Date End Date Rocky Almanzar MD [address] [place] [address] PCP - General 03/18/21 documented as of this encounter
--- OUTSIDE RECORDS SUMMARY | 2024-09-18 10:22 | XMS_ITS | Encounter Summary ---
Author Organization Healthcare Address [address] [place] [address] Care Team Providers Care Auto Service Writer Name Role Phone Unavailable Primary Care Provider Unavailabl e Encounter Details Date Type Department Care Team (Late st Contact Info) Description 02/29/2016 Legacy AEHR Vitals Encounter [facility] CON[facility] [address] [place] [address] ProviderElvis MD [address] [place] [address] Social History Tobacco Use Types Packs/Day [...] - - Weight 77.1 kg (170 lb) 02/29/2016 8:20 AM EDT Height 165.1 cm (5' 5 ) 02/29/2016 8:20 AM EDT Body Mass Index 28.29 02/29/2016 8:20 AM EDT documented in this encounter Plan of Treatment Upcoming Encounters Date Type Department Care Team (Late Contact Info) Description 12/16/2024 12:00 PM EST Office Visit [facility] [address] [place] [address] Jason Romero MD [address] [place] [address] 12/30/2024 1:30 PM EST Office Visit [facility] Eye [place] [address], [address] [place] [address] Vivian Macias, OD [address] [place] [address] documented as of this encounter Visit Diagnoses Not on filedocumented in this encounter
--- OUTSIDE RECORDS SUMMARY | 2024-09-18 10:22 | XMS_ITS | Encounter Summary ---
Author Organization Healthcare Address [address] [place] [address] Care Team Providers Care Photogrammetrist Name Role Phone Unavailable Primary Care Provider Unavailabl e Encounter Details Date Type Department Care Team (Late st Contact Info) Description 02/21/2016 Legacy AEHR Vitals Encounter [facility] CON[facility] [address] [place] [address] ProviderElvis MD [address] [place] [address] Social History Tobacco Use Types Packs/Day [...] - - Weight 77.1 kg (170 lb) 02/21/2016 1:17 PM EDT Height 165.1 cm (5' 5 ) 02/21/2016 1:17 PM EDT Body Mass Index 28.29 02/21/2016 1:17 PM EDT documented in this encounter Plan of Treatment Upcoming Encounters Date Type Department Care Team (Late Contact Info) Description 12/16/2024 12:00 PM EST Office Visit [facility] [address] [place] [address] Jason Romero MD [address] [place] [address] 12/30/2024 1:30 PM EST Office Visit [facility] [place] [address] [place] [address] Vivian Macias, OD [address] [place] [address] documented as of this encounter Visit Diagnoses Not on filedocumented in this encounter
--- OUTSIDE RECORDS SUMMARY | 2024-09-18 10:22 | XMS_ITS | Encounter Summary ---
Author Organization Healthcare Address [address] [place] [address] Care Team Providers Care Menhaden Fishing Crew Member Name Role Phone Unavailable Primary Care Provider Unavailabl e Encounter Details Date Type Department Care Team (Late st Contact Info) Description 06/30/2015 Legacy AEHR Vitals Encounter [facility] CONVERSIONS [address] [place] [address] ProviderElvis MD [address] [place] [address] Social History Tobacco Use Types Packs/Day [...] - - Weight 77.1 kg (170 lb) 06/30/2015 11:04 AM EDT Height 165.1 cm (5' 5 ) 06/30/2015 11:04 AM EDT Body Mass Index 28.29 06/30/2015 11:04 AM EDT documented in this encounter Plan of Treatment Upcoming Encounters Date Type Department Care Team (Late Contact Info) Description 12/16/2024 12:00 PM EST Office Visit [facility] [address] [place] [address] Jason Romero MD [address] [place] [address] 12/30/2024 1:30 PM EST Office Visit [facility] [place] [address], [address] [place] [address] Vivian Macias, OD [address] [place] [address] documented as of this encounter Visit Diagnoses Not on filedocumented in this encounter
--- OUTSIDE RECORDS SUMMARY | 2024-09-18 10:22 | XMS_ITS | Encounter Summary ---
Author Organization Healthcare Address [address] [place] [address] Care Team Providers Care Body Mechanic Apprentice Name Role Phone Unavailable Primary Care Provider Unavailabl e Encounter Details Date Type Department Care Team (Late st Contact Info) Description 05/28/2015 Legacy AEHR Vitals Encounter [facility]IENT CONVERSIONS [address] [place] [address] ProviderElvis MD [address] [place] [address] Social History Tobacco Use Types Packs/Day [...] - Inhaled Oxygen Concentration - - Weight 79.4 kg (175 lb) 05/28/2015 10:39 AM EDT Height 165.1 cm (5' 5 ) 05/28/2015 10:39 AM EDT Body Mass Index 29.12 05/28/2015 10:39 AM EDT documented in this encounter Plan of Treatment Upcoming Encounters Date Type Department Care Team (Late Contact Info) Description 12/16/2024 12:00 PM EST Office Visit [facility] [address] [place] [address] Jason Romero MD [address] [place] [address] 12/30/2024 1:30 PM EST Office Visit [facility] Eye [place] [address] [place] [address] Vivian Macias, OD [address] [place] [address] documented as of this encounter Visit Diagnoses Not on filedocumented in this encounter
--- OUTSIDE RECORDS SUMMARY | 2024-09-18 10:22 | XMS_ITS | Encounter Summary ---
Author Organization Healthcare Address [address] [place] [address] Care Team Providers Care Gem Stone Cutter Name Role Phone Unavailable Primary Care Provider Unavailabl e Encounter Details Date Type Department Care Team (Late st Contact Info) Description 06/04/2015 Legacy AEHR Vitals Encounter [facility] CON[facility] [address] [place] [address] ProviderElvis MD [address] [place] [address] Social History Tobacco Use Types Packs/Day [...] - - Weight 79.4 kg (175 lb) 06/04/2015 1:08 PM EDT Height 165.1 cm (5' 5 ) 06/04/2015 1:08 PM EDT Body Mass Index 29.12 06/04/2015 1:08 PM EDT documented in this encounter Plan of Treatment Upcoming Encounters Date Type Department Care Team (Late Contact Info) Description 12/16/2024 12:00 PM EST Office Visit [facility] [address] [place] [address] Jason Romero MD [address] [place] [address] 12/30/2024 1:30 PM EST Office Visit [facility] Eye [place] [address], [address] [place] [address] Vivian Macias, OD [address] [place] [address] documented as of this encounter Visit Diagnoses Not on filedocumented in this encounter
--- OUTSIDE RECORDS SUMMARY | 2024-09-18 10:22 | XMS_ITS | Encounter Summary ---
Author Organization Healthcare Address [address] [place] [address] Care Team Providers Care Statistical Programmer Analyst Name Role Phone Unavailable Primary Care Provider Unavailabl e Encounter Details Date Type Department Care Team (Late st Contact Info) Description 03/03/2016 Legacy AEHR Vitals Encounter [facility] CONVERSIONS [address] [place] [address] ProviderElvis MD [address] [place] [address] Social History Tobacco Use Types Packs/Day [...] - - Weight 77.1 kg (170 lb) 03/03/2016 11:06 AM EDT Height 165.1 cm (5' 5 ) 03/03/2016 11:06 AM EDT Body Mass Index 28.29 03/03/2016 11:06 AM EDT documented in this encounter Plan of Treatment Upcoming Encounters Date Type Department Care Team (Late Contact Info) Description 12/16/2024 12:00 PM EST Office Visit [facility] [address] [place] [address] Jason Romero MD [address] [place] [address] 12/30/2024 1:30 PM EST Office Visit [facility] [place] [address] [place] [address] Vivian Macias, OD [address] [place] [address] documented as of this encounter Visit Diagnoses Not on filedocumented in this encounter
--- OUTSIDE RECORDS SUMMARY | 2024-09-18 10:22 | XMS_ITS | Encounter Summary ---
Author Organization Healthcare Address [address] [place] [address] Care Team Providers Care Angle Shear Operator Name Role Phone Unavailable Primary Care Provider Unavailabl e Encounter Details Date Type Department Care Team (Late st Contact Info) Description 07/22/2015 Legacy AEHR Vitals Encounter [facility] CONVERSION[facility] [address] [place] [address] ProviderElvis MD [address] [place] [address] Social History Tobacco Use Types Packs/Day [...] - - Weight 77.1 kg (170 lb) 07/22/2015 8:34 AM EDT Height 165.1 cm (5' 5 ) 07/22/2015 8:34 AM EDT Body Mass Index 28.29 07/22/2015 8:34 AM EDT documented in this encounter Plan of Treatment Upcoming Encounters Date Type Department Care Team (Late Contact Info) Description 12/16/2024 12:00 PM EST Office Visit [facility] [address] [place] [address] Jason Romero MD [address] [place] [address] 12/30/2024 1:30 PM EST Office Visit [facility] [place] [address] [place] [address] Vivian Macias, OD [address] [place] [address] documented as of this encounter Visit Diagnoses Not on filedocumented in this encounter
[2024-09-18 10:51] LABS: Anion Gap 11.8 mEq/L (5-15); Blood Urea Nitrogen 22 mg/dl (9-20); Calcium 8.4 mg/dl (8.4-10.2); Carbon Dioxide 21 mmol/L (22.0-30.0); Chloride 112 mmol/L (98-107); Estimated Glomerular Filt Rate 59 ml/min (>60); GFR (African American) 72 ML/MIN (>60); Glucose 242 mg/dl (74-100); Potassium 3.8 mmoL/L (3.5-5.1); Sodium 141 mmol/L (136-145)
== END 2024-09-18 23:59 | disposition home or self-care (01) ==
LOC: LAB 10:18
PROVIDERS: PCP Family Medicine; Visit Provider Family Medicine
DX: R78.81 Bacteremia (principal); N10 Acute pyelonephritis
CPT/HCPCS: 80048

== ENCOUNTER 2024-11-03 11:38 | Outpatient (CLI) | payer MEDICARE, SELFPAY ==
--- NOTE | 2024-11-03 11:44 | XR_ITS ---
FINAL REPORT CLINICAL HISTORY: Acute cough, smoker COMPARISON: 01/12/2023 FINDINGS: PA and lateral views of the chest are obtained. The heart size is normal. The mediastinal silhouette is within normal limits. The lung volumes are low. There are bilateral lower lung linear opacities with small bilateral pleural effusions or pleural scar that is unchanged since the prior exam. No new infiltrate is noted. There is no pneumothorax or acute osseous abnormality. IMPRESSION: Chronic findings. No new abnormality. Reviewed, Interpreted and Dictated by Verna Conner MD Transcribed by Jesenia Nesbitt Authenticated and [facility]
[2024-11-03 12:05] LABS: Basophils % 1.4 % (0.1-2.0); Eosinophils # 0.1 K/mm3 (0.0-0.4); Eosinophils % 2.9 % (0.1-12.0); Hematocrit 42.9 % (42.0-52.0); Hemoglobin 14.4 g/dL (14.1-18.0); Lymphocytes # 0.6 K/mm3 (0.7-4.5); Lymphocytes % 29.7 % (10-50); Mean Corpuscular HGB Conc 33.6 g/dL (31.8-35.4); Mean Corpuscular Hemoglobin 31.1 pg (27.0-31.2); Mean Corpuscular Volume 92.7 fl (80-94); Mean Platelet Volume 9.1 fl (7.4-10.4); Monocytes # 0.2 K/mm3 (0.1-1.0); Neutrophils # 1.1 K/mm3 (1.8-7.8); Neutrophils % 54.5 % (37.0-80.0); Platelet Count 227 K/mm3 (142-424); Red Blood Count 4.63 M/mm3 (4.60-6.20); Red Cell Distribution Width 15.4 % (11.5-17.5); White Blood Count 2.1 K/mm3 (4.8-10.8)
== END 2024-11-03 23:59 | disposition home or self-care (01) ==
LOC: LAB 11:40
PROVIDERS: PCP Family Medicine; Visit Provider Family Medicine
DX: R05.1 Acute cough (principal)
CPT/HCPCS: 36415; 71046; 85025

== ENCOUNTER 2024-11-06 15:00 | Outpatient (CLI) | payer MEDICARE, SELFPAY ==
[2024-11-06 15:21] LABS: Basophils % 1.3 % (0.1-2.0); Eosinophils # 0.1 K/mm3 (0.0-0.4); Eosinophils % 3.6 % (0.1-12.0); Hematocrit 46.3 % (42.0-52.0); Hemoglobin 15.3 g/dL (14.1-18.0); Lymphocytes # 0.7 K/mm3 (0.7-4.5); Lymphocytes % 30.2 % (10-50); Mean Corpuscular Hemoglobin 30.5 pg (27.0-31.2); Mean Corpuscular Volume 92.2 fl (80-94); Mean Platelet Volume 9.1 fl (7.4-10.4); Monocytes # 0.2 K/mm3 (0.1-1.0); Monocytes % 7.1 % (1.7-9.3); Neutrophils # 1.3 K/mm3 (1.8-7.8); Neutrophils % 56.9 % (37.0-80.0); Platelet Count 269 K/mm3 (142-424); Red Blood Count 5.02 M/mm3 (4.60-6.20); Red Cell Distribution Width 15.4 % (11.5-17.5); White Blood Count 2.3 K/mm3 (4.8-10.8)
[2024-11-06 15:46] LABS: INR 0.89 (0.9-1.1); Prothrombin Time 10.1 seconds (10.1-12.5)
[2024-11-06 15:52] LABS: Albumin Level 3.8 g/dl (3.5-5.0); Chloride 103 mmol/L (98-107); Sodium 139 mmol/L (136-145)
[2024-11-06 15:53] LABS: Potassium 3.9 mmoL/L (3.5-5.1)
[2024-11-06 15:55] LABS: Alanine Aminotransferase 43 U/L (12-78); Alkaline Phosphatase 368 U/L (38-126); Anion Gap 12.9 mEq/L (5-15); Aspartate Amino Transferase 50 U/L (17-59); Bilirubin,Total 0.9 mg/dl (0.2-1.3); Blood Urea Nitrogen 41 mg/dl (9-20); Carbon Dioxide 27 mmol/L (22.0-30.0); Estimated Glomerular Filt Rate 46 ml/min (>60); GFR (African American) 56 ML/MIN (>60); Globulin 3.7 g/dL (1.3-3.2); Total Protein,Serum 7.5 g/dl (6.3-8.2)
[2024-11-06 15:56] LABS: Calcium 9.8 mg/dl (8.4-10.2); Glucose 95 mg/dl (74-100)
[2024-11-07 05:53] LABS: Hep A Ab, Total Positive (Negative); Hep B Core Ab, Total Negative (Negative); Hep B Surface Ab, Qual Non Reactive (.)
[2024-11-07 14:38] LABS: Thyroid Stimulating Hormone 3.05 uIU/mL (0.465-4.68)
== END 2024-11-06 23:59 | disposition home or self-care (01) ==
LOC: LAB 15:02
PROVIDERS: Internal Medicine Gastroenterology; PCP Family Medicine; Visit Provider Internal Medicine Medical Oncology
DX: K76.6 Portal hypertension (principal); E83.110 Hereditary hemochromatosis; R74.8 Abnormal levels of other serum enzymes; K75.89 Other specified inflammatory liver diseases; B19.20 Unspecified viral hepatitis C without hepatic coma; R06.09 Other forms of dyspnea; Z87.891 Personal history of nicotine dependence; R53.83 Other fatigue
CPT/HCPCS: 80053; 84443; 85025; 85610; 86704; 86706; 86708

== ENCOUNTER 2024-11-11 09:57 | Outpatient (CLI) | payer MEDICARE, SELFPAY ==
--- NOTE | 2024-11-11 09:58 | CT_ITS ---
FINAL REPORT TECHNIQUE: After the administration of oral and intravenous contrast, axial images were obtained through the abdomen and pelvis by computed tomography. The study was performed with techniques to keep radiation dose as low as reasonably achievable, (ALARA). Individual dose reduction techniques using automated exposure control or adjustment of mA and/or kV according to the patient's size were employed. CLINICAL HISTORY: Decreased white blood cell count COMPARISON: 02/29/2024 FINDINGS: Abdomen: The liver parenchyma is homogeneous. There is significant hepatomegaly with the liver measuring up to 22 cm in craniocaudal dimension. The spleen measures 16 cm. The gallbladder is present. Multiple calcified gallstones are noted. The pancreas is unremarkable. There are large low-attenuation lesions in the adrenal glands bilaterally measuring up to 3 cm with mean attenuation value of 42 Hounsfield units. These may be more evident than on the previous study. There are multiple bilateral nonobstructing kidney stones. The left renal collecting system is distended with mild left hydronephrosis and hydroureter to the level of the left UVJ. No definite obstructing stone identified. Reason for obstruction is unclear. There is ectasia of the abdominal aorta measuring 3.0 cm. Pelvis: The appendix is not identified. The urinary bladder is normal in size and configuration. There is no free fluid or adenopathy. There is moderate bilateral neuroforaminal narrowing at L5-S1. IMPRESSION: Hepatosplenomegaly, similar to the prior study. Calcified gallstones. Mild left hydronephrosis and hydroureter to the level of the UVJ with no definite obstructing stone identified. Reason for obstruction is unclear. Ectasia of the abdominal aorta. Enlarged lobular masses of the adrenal glands, larger than prior of uncertain significance. Dedicated adrenal mass protocol CT scan recommended. Reviewed, Interpreted and Dictated by Issac Hung MD Transcribed by Bev Fortune Authenticated and [facility]
--- NOTE | 2024-11-11 09:58 | CT_ITS ---
FINAL REPORT TECHNIQUE: Routine axial images were obtained from the lung apices to below the diaphragm following IV contrast administration. Individualized dose reduction techniques using automated exposure control or adjustment of the mA and/or kV according to the patient size were employed. CLINICAL HISTORY: Decreased White blood cell count COMPARISON: 03/27/2024 FINDINGS: There are calcified right paratracheal and subcarinal lymph nodes consistent with old granulomatous disease, stable. No evidence of dissection. There is moderate mural thrombus throughout the aortic arch and descending thoracic aorta. No pleural or pericardial effusion is seen. Pleural and parenchymal scarring is noted at the lung bases, left greater than right. IMPRESSION: Pleural and parenchymal scarring at the lung bases. Moderate mural thrombus as above. Reviewed, Interpreted and Dictated by Issac Hung MD Transcribed by Bev Fortune Authenticated and [facility]
[2024-11-11] MEDS: SODIUM CHLORIDE 0.9% 10ML SYR (RAD ONLY) 10 ML IV (10:27)
[2024-11-11] MEDS: IOPAMIDOL-370 (76%);100ML BOTTLE 75 ML IV (10:28)
== END 2024-11-11 23:59 | disposition home or self-care (01) ==
LOC: RAD 09:58
PROVIDERS: PCP Family Medicine; Visit Provider Internal Medicine Medical Oncology
DX: D72.819 Decreased white blood cell count, unspecified (principal)
CPT/HCPCS: 71260; 74177; Q9967

== ENCOUNTER 2024-11-20 10:18 | Outpatient (CLI) | payer MEDICARE, SELFPAY ==
--- NOTE | 2024-11-20 10:19 | CT_ITS ---
FINAL REPORT TECHNIQUE: Axial CT images of the abdomen were obtained with IV contrast only. Coronal reformatted images were also obtained. This study was performed with techniques to keep radiation doses as low as reasonably achievable (ALARA). Individualized dose reduction techniques using automated exposure control or adjustment of mA and/or kV according to the patient's size were employed. CLINICAL HISTORY: Bilateral adrenal lesions COMPARISON: CT abdomen/pelvis 02/29/[address] chest 01/01/2023 FINDINGS: Bilateral adrenal masses are noted. The left adrenal measures 35 x 32 mm. The right adrenal measures 50 x 19 mm. The left adrenal density measurements are 23 mm precontrast, 28 mm early postcontrast, and 27 mm delayed postcontrast. The right adrenal density measurements are 23 mm precontrast, 26 mm early postcontrast, and 26 mm delayed postcontrast. The adrenal masses are new since the prior chest CT from 01/01/2023. Mild splenomegaly is noted. There are nonobstructing bilateral renal stones. There is mild right and moderate left hydronephrosis. The remaining solid organs are unremarkable. Cholelithiasis is noted. There is no adenopathy. IMPRESSION: Bilateral adrenal masses not fulfilling imaging criteria of adenomas. Given the fact that the masses are new since 2022, these are suspicious for metastatic lesions. Interval development of bilateral hydronephrosis, greater on the left side, with etiology for obstruction not readily apparent, particularly since images did not include the pelvis. Bilateral nephrolithiasis and cholelithiasis. Reviewed, Interpreted and Dictated by Shirley Rodriguez MD Transcribed by Jesenia Nesbitt Authenticated and [facility]
[2024-11-20] MEDS: SODIUM CHLORIDE 0.9% 10ML SYR (RAD ONLY) 10 ML IV (10:42)
[2024-11-20] MEDS: IOPAMIDOL-370 (76%);100ML BOTTLE 75 ML IV (10:42)
== END 2024-11-20 23:59 | disposition home or self-care (01) ==
LOC: RAD 10:19
PROVIDERS: PCP Family Medicine; Visit Provider Internal Medicine Medical Oncology
DX: E27.9 Disorder of adrenal gland, unspecified (principal); E83.110 Hereditary hemochromatosis
CPT/HCPCS: 74170; Q9967

== ENCOUNTER 2024-12-18 10:12 | Outpatient (CLI) | payer MEDICARE, SELFPAY ==
--- NOTE | 2024-12-18 10:50 | ECG_ITS ---
APPROVED REPORT Exam: Resting ECG HR:84 bpm ECG Measurements Heart Rate 84 AXES LA 141 P 17 QRSd 95 QRS -44 QT 365 T 6 QTc 406 Conclusion SINUS RHYTHM LEFT AXIS DEVIATION [QRS AXIS < -30] LOW QRS VOLTAGE IN PRECORDIAL LEADS [QRS DEFLECTION < 1.0 mV IN CHEST LEADS] PATTERN CONSISTENT WITH PULMONARY DISEASE INCOMPLETE RIGHT BUNDLE BRANCH BLOCK [90+ ms QRS DURATION, TERMINAL R IN V1/V2, 40+ ms S IN I/aVL/V4/V5/V6] ABNORMAL ECG UNCONFIRMED REPORT Electronically signed by : Keo Amezquita MD 12/19/2024 15:50:27
[2024-12-18 10:59] LABS: Basophils % 1.6 % (0.1-2.0); Eosinophils # 0.1 K/mm3 (0.0-0.4); Eosinophils % 6.3 % (0.1-12.0); Hematocrit 41.9 % (42.0-52.0); Hemoglobin 14.3 g/dL (14.1-18.0); Lymphocytes # 0.4 K/mm3 (0.7-4.5); Lymphocytes % 34.6 % (10-50); Mean Corpuscular HGB Conc 34.1 g/dL (31.8-35.4); Mean Corpuscular Volume 90.7 fl (80-94); Mean Platelet Volume 9.3 fl (7.4-10.4); Monocytes # 0.1 K/mm3 (0.1-1.0); Monocytes % 5.5 % (1.7-9.3); Neutrophils # 0.7 K/mm3 (1.8-7.8); Neutrophils % 51.2 % (37.0-80.0); Platelet Count 266 K/mm3 (142-424); Red Blood Count 4.62 M/mm3 (4.60-6.20); Red Cell Distribution Width 14.3 % (11.5-17.5); White Blood Count 1.3 K/mm3 (4.8-10.8)
[2024-12-18 11:41] LABS: Chloride 103 mmol/L (98-107); Potassium 4.3 mmoL/L (3.5-5.1); Sodium 138 mmol/L (136-145)
[2024-12-18 11:44] LABS: Alanine Aminotransferase 21 U/L (12-78); Albumin/Globulin Ratio 1.3 (1.1-1.8); Alkaline Phosphatase 153 U/L (38-126); Anion Gap 12.3 mEq/L (5-15); Aspartate Amino Transferase 31 U/L (17-59); Bilirubin,Total 0.7 mg/dl (0.2-1.3); Blood Urea Nitrogen 32 mg/dl (9-20); Carbon Dioxide 27 mmol/L (22.0-30.0); Estimated Glomerular Filt Rate 54 ml/min (>60); GFR (African American) 65 ML/MIN (>60); Globulin 3.1 g/dL (1.3-3.2); Iron 126 ug/dL (49-181); Total Protein,Serum 7.1 g/dl (6.3-8.2)
[2024-12-18 11:45] LABS: Calcium 9.6 mg/dl (8.4-10.2); Glucose 281 mg/dl (74-100)
[2024-12-18 11:55] LABS: Total Iron Binding Capacity 368 ug/dL (261-462)
[2024-12-18 12:18] LABS: Ferritin 35.2 ng/ml (17.9-464)
[2024-12-23 18:10] LABS: Histoplasma Antibody Quant Negative (Neg:<1:1)
== END 2024-12-18 23:59 | disposition home or self-care (01) ==
LOC: PREOP 10:13
PROVIDERS: Internal Medicine Gastroenterology; PCP Family Medicine; Visit Provider Internal Medicine Pulmonary Disease
DX: E83.110 Hereditary hemochromatosis (principal); B19.20 Unspecified viral hepatitis C without hepatic coma; K75.4 Autoimmune hepatitis; K75.89 Other specified inflammatory liver diseases; R74.8 Abnormal levels of other serum enzymes
CPT/HCPCS: 80053; 82728; 83540; 83550; 85025; 86698; 93005

== ENCOUNTER 2024-12-22 08:18 | Day surgery (SDC) | payer MEDICARE, SELFPAY ==
--- NOTE | 2024-12-18 10:34 | SUR.PREOP ---
Per MD Cantrell, PT NEEDS TO CONTINUE ASA 81MG
[2024-12-18 10:35] VITALS: BMI 18.6
[2024-12-22 08:40] VITALS: BP 132/77; PULSE 54; RESP 18; TEMP 36.2; O2SAT 97
[2024-12-22] MEDS: LACTATED RINGERS 1000ML 1,000 ML 25 ML IV (08:53)
[2024-12-22 08:54] LABS: POC Glucose,Bedside 212 (70-110)
--- NOTE | 2024-12-22 13:19 | SUR.PREOP ---
0945-Leo VILLAR @ bedside talking in depth about risks of the procedure. Pt voiced understanding. 0975-Dr. Cantrell @ bedside speaking to patient. 1005- iv dc'd. catheter intact. Covered with 2x2s and coban. 1015- pt dressed and discharged home. Pt instructed to continue blood thinners.
== END 2024-12-22 10:15 | disposition home or self-care (01) ==
LOC: OR 08:19
PROVIDERS: PCP Family Medicine; Visit Provider Internal Medicine Pulmonary Disease
PROC: BB4BZZZ Ultrasonography of Pleura (ICD-10-PCS; principal; 2024-12-22 10:15)
DX: I48.0 Paroxysmal atrial fibrillation (principal); Z53.09 Procedure and treatment not carried out because of other contraindication; Z79.899 Other long term (current) drug therapy
CPT/HCPCS: 82962; J7120

== ENCOUNTER 2024-12-25 13:41 | Outpatient (CLI) | payer MEDICARE, SELFPAY ==
[2024-12-25 14:27] LABS: Basophils % 1.6 % (0.1-2.0); Eosinophils # 0.1 K/mm3 (0.0-0.4); Eosinophils % 4.4 % (0.1-12.0); Hematocrit 47.1 % (42.0-52.0); Hemoglobin 15.9 g/dL (14.1-18.0); Lymphocytes # 0.5 K/mm3 (0.7-4.5); Lymphocytes % 24.7 % (10-50); Mean Corpuscular HGB Conc 33.8 g/dL (31.8-35.4); Mean Corpuscular Hemoglobin 31.2 pg (27.0-31.2); Mean Corpuscular Volume 92.5 fl (80-94); Mean Platelet Volume 9.4 fl (7.4-10.4); Monocytes # 0.1 K/mm3 (0.1-1.0); Monocytes % 4.9 % (1.7-9.3); Neutrophils # 1.2 K/mm3 (1.8-7.8); Neutrophils % 63.9 % (37.0-80.0); Platelet Count 272 K/mm3 (142-424); Red Blood Count 5.09 M/mm3 (4.60-6.20); Red Cell Distribution Width 14.3 % (11.5-17.5); White Blood Count 1.8 K/mm3 (4.8-10.8)
[2024-12-25 14:40] LABS: INR 0.83 (0.9-1.1); Prothrombin Time 9.3 seconds (9.2-12.1)
[2024-12-25 14:48] LABS: Blood Urea Nitrogen 29 mg/dl (9-20); Estimated Glomerular Filt Rate 50 ml/min (>60); GFR (African American) 60 ML/MIN (>60)
[2024-12-25 14:49] LABS: Activated Partial Thrombo Time 19.9 seconds (22.5-28.5)
== END 2024-12-25 23:59 | disposition home or self-care (01) ==
LOC: LAB 13:43
PROVIDERS: PCP Family Medicine; Visit Provider Internal Medicine Medical Oncology
DX: E83.119 Hemochromatosis, unspecified (principal)
CPT/HCPCS: 36415; 82565; 84520; 85025; 85610; 85730

== ENCOUNTER 2024-12-26 07:46 | Outpatient (CLI) | payer MEDICARE, SELFPAY ==
[2024-12-26] VITALS (18 sets, daily range): BP systolic 101–122; BP diastolic 44–66; PULSE 74–83; RESP 18–20; TEMP 36.3; O2SAT 96–100; BMI 19.1
--- NOTE | 2024-12-26 07:47 | CT_ITS ---
FINAL REPORT CLINICAL HISTORY: ATTN: ADRENAL GLAND LEFT ADRENAL GLAND BIOPSY FINDINGS: CT GUIDED LEFT ADRENAL GLAND CORE BIOPSY. HISTORY: Left adrenal mass. ATTENDING PHYSICIAN: Dr. Conner PHYSICIAN DIRECTOR OF PRODUCT MARKETING: Jem Gabriel PA-C PROCEDURE: After informed consent was obtained and a timeout was performed, the patient was prepped and draped in usual sterile fashion over the left flank. Utilizing local anesthesia and sterile technique with a coaxial system, access to lesion was obtained under direct CT guidance. A total of 5 separate 18-gauge core biopsies were obtained in 2 separate locations of the left adrenal mass. Post biopsy films demonstrate no evidence of acute complication. The patient received no procedural sedation. The patient tolerated the procedure well and left the department in good condition. PROCEDURAL SEDATION: 2 mg of IV Versed and 50 mcg of Fentanyl were administered. Continuous vital sign monitoring was used. An RN was present during the sedation process. Overall sedation time was 30 minutes. IMPRESSION: Status post CT guided core biopsy of a left adrenal mass without immediate complication. Films reviewed , interpreted and dictated by Dr. Verna Conner. Transcribed by Jem Gabriel PA-C. Reviewed, Interpreted and Dictated by Verna Conner MD Transcribed by LUCIA Lawson Authenticated and [facility]
[2024-12-26 08:21] LABS: POC Glucose,Bedside 248 (70-110)
== END 2024-12-26 12:20 | disposition home or self-care (01) ==
PROVIDERS: PCP Family Medicine; Visit Provider Internal Medicine Medical Oncology
DX: E83.119 Hemochromatosis, unspecified (principal); D72.819 Decreased white blood cell count, unspecified
CPT/HCPCS: 77012; 82962; J2250; J3010

== ENCOUNTER 2025-01-26 10:03 | Outpatient (CLI) | payer MEDICARE, SELFPAY ==
[2025-01-26 10:32] LABS: PHA INR Fingerstick 1.2 (0.9-1.1)
== END 2025-01-26 10:34 ==
LOC: ACC 10:03
PROVIDERS: PCP Family Medicine; Visit Provider Nurse Practitioner
DX: Z79.01 Long term (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 of anticoagulants (principal); I48.91 Unspecified atrial fibrillation
CPT/HCPCS: 85610; G0463

== ENCOUNTER 2025-01-28 14:16 | Outpatient (CLI) | payer MEDICARE, SELFPAY ==
[2025-01-28 15:07] LABS: PHA INR Fingerstick 1.1 (0.9-1.1)
== END 2025-01-28 15:08 ==
LOC: ACC 14:17
PROVIDERS: PCP Family Medicine; Visit Provider Nurse Practitioner
DX: I48.0 Paroxysmal atrial fibrillation (principal); Z79.01 Long term (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 of anticoagulants
CPT/HCPCS: 85610; 99211; G0463

== ENCOUNTER 2025-01-30 11:21 | Outpatient (CLI) | payer MEDICARE, SELFPAY ==
[2025-01-30 11:39] LABS: PHA INR Fingerstick 1.4 (0.9-1.1)
[2025-01-30 11:56] LABS: Basophils % 0.5 % (0.1-2.0); Hemoglobin 11.9 g/dL (14.1-18.0); Lymphocytes # 0.3 K/mm3 (0.7-4.5); Lymphocytes % 17.7 % (10-50); Mean Corpuscular HGB Conc 33.1 g/dL (31.8-35.4); Mean Corpuscular Hemoglobin 30.1 pg (27.0-31.2); Mean Corpuscular Volume 91.1 fl (80-94); Mean Platelet Volume 9.4 fl (7.4-10.4); Monocytes # 0.1 K/mm3 (0.1-1.0); Monocytes % 2.6 % (1.7-9.3); Neutrophils # 1.5 K/mm3 (1.8-7.8); Neutrophils % 77.7 % (37.0-80.0); Platelet Count 235 K/mm3 (142-424); Red Blood Count 3.95 M/mm3 (4.60-6.20); Red Cell Distribution Width 13.8 % (11.5-17.5); White Blood Count 1.9 K/mm3 (4.8-10.8)
[2025-01-30 12:11] LABS: Alanine Aminotransferase 22 U/L (12-78); Albumin Level 3.8 g/dl (3.5-5.0); Albumin/Globulin Ratio 1.3 (1.1-1.8); Alkaline Phosphatase 187 U/L (38-126); Anion Gap 17.3 mEq/L (5-15); Aspartate Amino Transferase 29 U/L (17-59); Bilirubin,Total 0.6 mg/dl (0.2-1.3); Blood Urea Nitrogen 31 mg/dl (9-20); Calcium 9.6 mg/dl (8.4-10.2); Carbon Dioxide 21 mmol/L (22.0-30.0); Chloride 101 mmol/L (98-107); Estimated Glomerular Filt Rate 50 ml/min (>60); GFR (African American) 60 ML/MIN (>60); Globulin 2.9 g/dL (1.3-3.2); Glucose 390 mg/dl (74-100); Potassium 4.3 mmoL/L (3.5-5.1); Sodium 135 mmol/L (136-145); Total Protein,Serum 6.7 g/dl (6.3-8.2)
== END 2025-01-30 23:59 | disposition home or self-care (01) ==
LOC: ACC 11:22
PROVIDERS: Nurse Practitioner; PCP Family Medicine; Visit Provider Internal Medicine Gastroenterology
DX: K74.69 Other cirrhosis of liver (principal); B19.20 Unspecified viral hepatitis C without hepatic coma; K75.4 Autoimmune hepatitis; E83.110 Hereditary hemochromatosis; R74.8 Abnormal levels of other serum enzymes; K75.89 Other specified inflammatory liver diseases; K74.3 Primary biliary cirrhosis
CPT/HCPCS: 36415; 80053; 85025; 85610; 99211; G0463

== ENCOUNTER 2025-02-03 11:07 | Outpatient (CLI) | payer MEDICARE, SELFPAY ==
[2025-02-03 13:04] LABS: PHA INR Fingerstick 1.3 (0.9-1.1)
== END 2025-02-03 13:05 ==
LOC: ACC 11:08
PROVIDERS: PCP Family Medicine; Visit Provider Nurse Practitioner
DX: Z79.01 Long term (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 of anticoagulants (principal); I48.91 Unspecified atrial fibrillation
CPT/HCPCS: 85610; 99211; G0463

== ENCOUNTER 2025-02-09 10:54 | Outpatient (CLI) | payer MEDICARE, SELFPAY ==
[2025-02-09 13:15] LABS: PHA INR Fingerstick 1.2 (0.9-1.1)
== END 2025-02-09 13:19 ==
PROVIDERS: PCP Family Medicine; Visit Provider Nurse Practitioner
DX: Z79.01 Long term (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 of anticoagulants (principal); I48.91 Unspecified atrial fibrillation
CPT/HCPCS: 85610; 99211; G0463

== ENCOUNTER 2025-02-11 09:32 | Outpatient (CLI) | payer MEDICARE, SELFPAY ==
[2025-02-11 10:25] VITALS: PULSE 84; PULSE 87
[2025-02-11] MEDS: ALBUTEROL 0.083% 2.5 MG/3 ML NEB IH (10:25)
[2025-02-11 13:38] LABS: PHA INR Fingerstick 1.5 (0.9-1.1)
== END 2025-02-11 13:40 ==
LOC: ACC 09:33
PROVIDERS: Nurse Practitioner; PCP Family Medicine; Visit Provider Internal Medicine Pulmonary Disease
DX: R06.02 Shortness of breath (principal); Z79.01 Long term (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 of anticoagulants; I48.0 Paroxysmal atrial fibrillation
CPT/HCPCS: 85610; 94060; 94618; 94640; 94726; 94729; 99211; G0463; J7613

== ENCOUNTER 2025-02-13 14:35 | Outpatient (CLI) | payer MEDICARE, SELFPAY ==
[2025-02-13 15:30] LABS: PHA INR Fingerstick 2.1 (0.9-1.1)
[2025-02-13 15:48] LABS: Basophils % 0.7 % (0.1-2.0); Eosinophils # 0.1 K/mm3 (0.0-0.4); Eosinophils % 2.3 % (0.1-12.0); Hematocrit 41.2 % (42.0-52.0); Hemoglobin 13.4 g/dL (14.1-18.0); Lymphocytes # 0.6 K/mm3 (0.7-4.5); Lymphocytes % 18.7 % (10-50); Mean Corpuscular HGB Conc 32.5 g/dL (31.8-35.4); Mean Corpuscular Hemoglobin 28.9 pg (27.0-31.2); Mean Platelet Volume 9.5 fl (7.4-10.4); Monocytes # 0.2 K/mm3 (0.1-1.0); Monocytes % 5.2 % (1.7-9.3); Neutrophils # 2.2 K/mm3 (1.8-7.8); Neutrophils % 72.8 % (37.0-80.0); Nucleated Red Blood Cells # 0 10^3/uL; Nucleated Red Blood Cells % 0 %; Platelet Count 292 K/mm3 (142-424); Red Blood Count 4.63 M/mm3 (4.60-6.20); Red Cell Distribution Width 13.5 % (11.5-17.5); White Blood Count 3.1 K/mm3 (4.8-10.8)
[2025-02-13 16:24] LABS: Albumin Level 4.1 g/dl (3.5-5.0); Chloride 103 mmol/L (98-107); Potassium 4.2 mmoL/L (3.5-5.1); Sodium 140 mmol/L (136-145)
[2025-02-13 16:27] LABS: Alanine Aminotransferase 23 U/L (12-78); Albumin/Globulin Ratio 1.1 (1.1-1.8); Alkaline Phosphatase 156 U/L (38-126); Anion Gap 17.2 mEq/L (5-15); Aspartate Amino Transferase 28 U/L (17-59); Bilirubin,Total 0.7 mg/dl (0.2-1.3); Blood Urea Nitrogen 36 mg/dl (9-20); Calcium 9.5 mg/dl (8.4-10.2); Carbon Dioxide 24 mmol/L (22.0-30.0); Estimated Glomerular Filt Rate 54 ml/min (>60); GFR (African American) 65 ML/MIN (>60); Globulin 3.8 g/dL (1.3-3.2); Glucose 111 mg/dl (74-100); Iron 58 ug/dL (49-181); Total Protein,Serum 7.9 g/dl (6.3-8.2)
[2025-02-13 16:39] LABS: Total Iron Binding Capacity 418 ug/dL (261-462)
[2025-02-13 17:04] LABS: Ferritin 39.6 ng/ml (17.9-464)
== END 2025-02-13 15:38 ==
LOC: LAB 14:38
PROVIDERS: Nurse Practitioner; PCP Family Medicine; Visit Provider Internal Medicine Medical Oncology
DX: D72.819 Decreased white blood cell count, unspecified (principal); E83.119 Hemochromatosis, unspecified
CPT/HCPCS: 36415; 80053; 82728; 83540; 83550; 85025; 85610; 99211; G0463

== ENCOUNTER 2025-02-17 11:30 | Outpatient (CLI) | payer MEDICARE, SELFPAY ==
[2025-02-17 12:56] LABS: PHA INR Fingerstick 2.2 (0.9-1.1)
== END 2025-02-17 13:02 ==
LOC: ACC 11:30
PROVIDERS: PCP Family Medicine; Visit Provider Nurse Practitioner
DX: Z79.01 Long term (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 of anticoagulants (principal); I48.91 Unspecified atrial fibrillation
CPT/HCPCS: 85610; 99211; G0463

== ENCOUNTER 2025-02-24 11:57 | Outpatient (CLI) | payer MEDICARE, SELFPAY ==
[2025-02-24 13:49] LABS: PHA INR Fingerstick 1.9 (0.9-1.1)
== END 2025-02-24 13:51 ==
LOC: ACC 11:58
PROVIDERS: PCP Family Medicine; Visit Provider Nurse Practitioner
DX: Z79.01 Long term (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 of anticoagulants (principal); I48.91 Unspecified atrial fibrillation
CPT/HCPCS: 85610; 99211; G0463

== ENCOUNTER 2025-03-13 10:25 | Outpatient (CLI) | payer MEDICARE, SELFPAY ==
[2025-03-13 13:15] LABS: PHA INR Fingerstick 3.3 (0.9-1.1)
== END 2025-03-13 13:11 ==
LOC: ACC 10:26
PROVIDERS: PCP Family Medicine; Visit Provider Nurse Practitioner
DX: Z79.01 Long term (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 of anticoagulants (principal); I48.91 Unspecified atrial fibrillation
CPT/HCPCS: 85610; 99211; G0463

== ENCOUNTER 2025-03-24 11:06 | Outpatient (CLI) | payer MEDICARE, SELFPAY ==
[2025-03-24 12:09] LABS: PHA INR Fingerstick 1.6 (0.9-1.1)
== END 2025-03-24 12:15 ==
LOC: ACC 11:06
PROVIDERS: PCP Family Medicine; Visit Provider Nurse Practitioner
DX: Z79.01 Long term (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 of anticoagulants (principal); I48.91 Unspecified atrial fibrillation
CPT/HCPCS: 85610; 99211; G0463

== ENCOUNTER 2025-03-31 13:14 | Outpatient (CLI) | payer MEDICARE, SELFPAY ==
[2025-03-31 13:54] LABS: INR 2.04 (0.9-1.1); Prothrombin Time 21.5 seconds (10.1-12.5)
[2025-03-31 14:19] LABS: Alanine Aminotransferase 32 U/L (12-78); Albumin Level 3.4 g/dl (3.5-5.0); Albumin/Globulin Ratio 1.5 (1.1-1.8); Alkaline Phosphatase 73 U/L (38-126); Anion Gap 11.1 mEq/L (5-15); Aspartate Amino Transferase 21 U/L (17-59); Bilirubin,Total 0.8 mg/dl (0.2-1.3); Blood Urea Nitrogen 28 mg/dl (9-20); Calcium 8.7 mg/dl (8.4-10.2); Carbon Dioxide 26 mmol/L (22.0-30.0); Chloride 101 mmol/L (98-107); Estimated Glomerular Filt Rate 94 ml/min (>60); GFR (African American) 114 ML/MIN (>60); Globulin 2.2 g/dL (1.3-3.2); Potassium 4.1 mmoL/L (3.5-5.1); Sodium 134 mmol/L (136-145); Total Protein,Serum 5.6 g/dl (6.3-8.2)
[2025-03-31 14:28] LABS: Glucose 474 mg/dl (74-100)
== END 2025-03-31 23:59 | disposition home or self-care (01) ==
PROVIDERS: Nurse Practitioner; PCP Family Medicine; Visit Provider Internal Medicine Gastroenterology
DX: K75.3 Granulomatous hepatitis, not elsewhere classified (principal)
CPT/HCPCS: 36415; 80053; 85610

== ENCOUNTER 2025-04-08 09:33 | Outpatient (CLI) | payer MEDICARE, SELFPAY ==
[2025-04-08 13:59] LABS: PHA INR Fingerstick 1.3 (0.9-1.1)
== END 2025-04-08 14:02 ==
LOC: ACC 09:34
PROVIDERS: PCP Family Medicine; Visit Provider Nurse Practitioner
DX: I48.0 Paroxysmal atrial fibrillation (principal)
CPT/HCPCS: 85610; 99211; G0463

== ENCOUNTER 2025-04-13 12:31 | Outpatient (CLI) | payer MEDICARE, SELFPAY ==
--- OUTSIDE RECORDS SUMMARY | 2025-02-13 10:59 | XMS_ITS ---
Author Organization [facility] Address [address] [place] [address] [place] [address] Phone Care Team Providers Care Distribution Engineering Technologist Name Role Phone Sukumar CUEVAS, Rocky Griggs [ ] Conditions or Problems No information available. Medications No information available. Medications Administered No information available. Allergies, Adverse Reactions, Alerts No information available. Results Date Name Value Unit Range Flag Description Office Visit: Office Visit:r maida 3 MEDS REVIEW Done Documenta tion of current medications (procedure) SMOK STATUS Former smoker Tob acco smoking status Plan of Care Type Date Detail Appointment 10:30 AM Rocky Patino MD, [facility], [address], [place], [address], Pending order Continue oral an tibiotics Pending order CMP Pending order CBC with Differe ntial Pending order Itraconazole Lev el Pending order BNP Procedures Code Procedure Name Date Entry Date G2211 Complex E&M visit add-on (G2211) CPT-Cooral Continue oral antibiotics 20 27/02/11 CPT-29546 CMP [id number] CBC with Differential 2024 CPT-85290 Itraconazole Level 1 CPT-01517 BNP Vital Signs Date Name Value Unit Description BMI (Body Mass Index) 19.37 kg/m2 Bod y Mass Index (Ratio) Body Temperature 97.4 [degF] temperat ure E&M BP Diastolic 60 mm[Hg] blood pressu re, diastolic BP Systolic 100 mm[Hg] blood pressur e, systolic Heart Rate 79 /min pulse rate Height 65 [in_us] height E&M Respiratory Rate 16 /min respirat ory rate E&M Weight Measured 116.4 [lb_av] weight E& M Weight Measured 116.4 [lb_av] weight E& M Immunizations No information available. Advance Directives No information available.
--- OUTSIDE RECORDS SUMMARY | 2025-04-13 12:33 | XMS_ITS | Clinical Summary ---
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 CT) 01/09 Active 01/09 Echo Mccurdy 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/09 Active 01/09 Echo Mccurdy Acute pulmonary histoplasmosis capsulati Medications Medication Instructions Start Date Stop Date Generic Name [facility] Provider IPRATROPIUM-ALBU TEROL 0.5-2.5 (3) MG/3ML SOLN ipratropium-albut [place] 55100281719 Amrita Hope JARDIANCE 10 MG TABS 1 tablet by mouth once a day empagliflozin 26990818634 Amrita Hope ITRACONAZOLE 100 MG CAPS Take 2 capsule by mouth twice a day itraconazole 07120121567 Rocky Patino MD XARELTO 20 MG TABS rivaroxaban 31840533090 Christina Sampson aspirin 81 mg capsule 1 capsule by mouth once a day aspirin Laiba Sonu budesonide 9 mg by mouth as needed as directed budesonide Laiba Sonu VITAMIN D 25 MCG (1000 UT) TABS 1 tablet by mouth once a day cholecalciferol (vitamin d3) 48241492327 Laiba Sonu JARDIANCE 10 MG TABS 1 tablet by mouth once a day empagliflozin 62069398479 Laiba Sonu EZETIMIBE 10 MG TABS 1 tablet by mouth once a day ezetimibe 62893947484 Laiba Sonu insulin lispro protamine-lispro 100 unit/mL (75-25) subcutaneous susp insulin lispro protamin-lispro Laiba Sonu IPRATROPIUM-ALBU TEROL 0.5-2.5 (3) MG/3ML SOLN ipratropium-albut ph[place]enix 29996190108 Laiba Sonu LEVOTHYROXINE SODIUM 50 MCG TABS 1 tablet by mouth once a day levothyroxine 33198423040 Laiba Sonu METFORMIN HCL 500 MG TABS 1 tablet by mouth once a day metformin 67843788847 Laiba Sonu MIRTAZAPINE 15 MG TABS 1 tablet by mouth once a day mirtazapine 97643799869 Laiba Sonu MYCOPHENOLATE MOFETIL 500 MG TABS 1 tablet by mouth twice a day mycophenolate mofetil 89624303390 Laiba Sonu PRAVASTATIN SODIUM 20 MG TABS 1 tablet by mouth once a day pravastatin 33089303462 Laiba Sonu URSODIOL 500 MG TABS 1 tablet by mouth twice a day ursodiol 30851216266 Laiba Sonu Medications Administered No information available. 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, LOADERS FALLRSKASSES yes Fall ris k assessment Lab Report: URINALYSIS, MICR OSCOPIC ONLY HYAL CAST UR 0-6 /[LPF] 0-6 Hyaline casts [#/area] in Urine sediment by Microscopy low power field Lab Report: URINALYSIS WITHO UT MICROSCOPIC (NO CULTURE) UROBILINOGEN 0.2 E.U./dL 0.2 - 1.0 Ur obilinogen [Presence] in Urine by Test strip NITRITE URN Negative Negative Nitrite [Presence] in Urine by Test strip WBC DIPSTK U Small (1+) Negative A Leuk ocyte esterase [Presence] in Urine by Test strip PROTEIN, URN 100 mg/dL (2+) Negative A protein, urine, semiquantitative (dipstick) BILIRUBIN UR Negative Negative Biliru bin.total [Presence] in Urine by Test strip KETONES URN Negative Negative Ketones [Mass/volume] in Urine by Test strip GLUCOSE, URN >=1000 mg/dL (3+) Negative A Glucose [Mass/volume] in Urine by Test strip SPEC GR URIN 1.022 1.001-1.03 Speci fic gravity of Urine by Test strip PH URINE 5.5 5.0-8.0 pH of Urine by Test strip APPEARANCE U Cloudy Clear A Appearan ce of Urine UA COLOR Red Yellow, St A Color of Urine Lab Report: T-HELPER CELLS ( CD4) COUNT LYMPHOCY BF 35 % Not Estab. lympho cytes as percent of body fluid leukocytes RDW_ 13.0 11.6-15.4 RDW, no uni ts CD4 % 52.6 % 30.8-58.5 T-helper ce lls (CD4) as percent of blood lymphocytes T-HELPER CD4 316 /UL 10*3 359-1519 L T-helpe r cell (CD4) count Office Visit: Office Visit:r m 3 MEDS REVIEW Done Documenta tion of current medications (procedure) SMOK STATUS Former smoker Tobacco smoking status Lab Report: CBC WITH AUTO DI FFERENTIAL ZZ-GE-unk 0.0 /100 WBC 0.0-0.2 GE use only - for [employer] import when terms are not otherwise specified IMMATUREGRAN 0.02 10*3/MM3 0.00-0.05 Immature granulocytes [#/volume] in Blood BASO# 0.01 10*3/mm3 0.00-0.20 Basophils [#/volume] in Blood EOS ABSLT 0.00 10*3/uL 0.00-0.40 Eosinophi ls [#/volume] in Blood MONOSCT AUTO 0.18 10*3/uL 0.10-0.90 Monocy lesley [#/volume] in Blood by Automated count LYMPHCT AUTO 0.23 10*3/mm3 0.70-3.10 L Lymph ocytes [#/volume] in Blood by Automated count ABS NEUTROPH 2.12 10*3/uL 1.70-7.00 Neutro phils [#/volume] in Blood IMM GRANU % 0.8 % 0.0-0.5 H Immature granulocytes/100 leukocytes in Blood % EOS AUTO 0.0 % 0.3-6.2 L Eosinophil s/100 leukocytes in Blood by Automated count MONOCYTE BF 7.0 % 5.0-12.0 monocyte s as percent of body fluid leukocytes LYMPHS % 9.0 % 19.6-45.3 L Lymphocyte s/100 leukocytes in Blood by Automated count NEUTROP BF 82.8 % 42.7-76.0 H Neutroph ils/100 leukocytes in Body fluid PLATELETS 172 10*3/mm3 140-450 Platelets [#/volume] in Blood by Automated count RDW 15.5 % 12.3-15.4 H Erythrocyte distribution width [Ratio] by Automated count MCHC 32.8 G/DL 31.5-35.7 MCHC [Mass/ volume] by Automated count MCH 28.6 pg 26.6-33.0 MCH [Entiti c mass] by Automated count MCV 87.2 fL 79.0-97.0 MCV [Entiti c volume] by Automated count HCT 32.6 % 37.5-51.0 L Hematocrit [Volume Fraction] of Blood by Automated count HGB 10.7 g/dL 13.0-17.7 L Hemoglobin [Mass/volume] in Blood RBC 3.74 10*6/mm3 4.14-5.80 L Erythrocyt es [#/volume] in Blood by Automated count WBC 2.56 10*3/mm3 3.40-10.80 L Leukocyte s [#/volume] in Blood by Automated count Lab Report: COMPREHENSIVE ME TABOLIC PANEL ANIONGAP 15.0 mmol/L 5.0-15.0 anion gap, serum BUN/CREAT 33.7 7.0-25.0 H Urea nitrogen/Creatinine [Mass Ratio] in Serum or Plasma BILI TOTAL 0.6 mg/dL 0.0-1.2 Bilirubin. total [Mass/volume] in Serum or Plasma ALK PHOS 73 U/L 39-117 Alkaline phosphatase [Enzymatic activity/volume] in Blood SGOT (AST) 11 U/L 1-40 Aspartate aminotransferase [Enzymatic activity/volume] in Serum or Plasma SGPT (ALT) 25 U/L 1-41 Alanine aminotransferase [Enzymatic activity/volume] in Serum or Plasma ALBUMIN 3.4 g/dL 3.5-5.2 L Albumin [Mass/volume] in Serum or Plasma PROTEIN, TOT 5.5 g/dL 6.0-8.5 L Protein [Mass/volume] in Serum or Plasma CALCIUM 8.7 mg/dL 8.6-10.5 Calcium [Moles/volume] in Serum or Plasma CO2 24.0 mmol/L 22.0-29.0 Carbon diox kalyan, total [Moles/volume] in Venous blood CHLORIDE 101 mmol/L 98-107 Chloride [Moles/volume] in Serum or Plasma POTASSIUM 3.9 mmol/L 3.5-5.2 Potassium [Moles/volume] in Serum or Plasma SODIUM 140 mmol/L 136-145 Sodium [Moles/volume] in Serum or Plasma CREATININE 0.95 mg/dL 0.76-1.27 Creatini ne [Mass/volume] in Serum or Plasma BUN 32 mg/dL 8-23 H Urea nitrogen [Mass/volume] in Serum or Plasma GLUCOSE SER 368 mg/dL 65-99 H Glucose [Mass/volume] in Serum or Plasma Plan of Care Type Date Detail Appointment 10:30 AM Rocky Patino MD, [facility], [address], [place], [address], Pending order Continue oral an tibiotics Pending order CMP Pending order CBC with Differe ntial Pending order Itraconazole Lev el Pending order BNP Pending order New Oral Antibio tic Pending order CMP Pending order CBC with Differe ntial Pending order CD4 Pending order Fungitell, serum (1-3) D-Glucan Assay Pending order Urine Culture & Sensitivity Pending order Urinalysis Pending order Fungal Culture & Sensitivity Pending order BNP Procedures Code Procedure Name Date Entry Date G2211 Complex E&M visit add-on (G2211) CPT-Cooral Continue oral antibiotics 20 27/02/11 CPT-53685 CMP [id number] CBC with Differential 2024 CPT-71494 Itraconazole Level 1 CPT-09000 BNP CPT-elizabeth New Oral Antibiotic CPT-52420 CMP G1811m,[id number] CBC with Differential 2024 CPT-20063 CD4 28023 Fungitell, serum (1-3) D-Glucan Assay 03/07/12 CPT-07305 Urine Culture & Sensitivity [id number], [id number] Urinalysis CPT-cf Fungal Culture & Sensitivity CPT-34384 BNP Vital Signs Date Name Value Unit [...] M Immunizations No information available. Advance Directives Directive Description Start Date NO ADVANCED DIRECTIVES AT THIS TIME 2024
--- OUTSIDE RECORDS SUMMARY | 2025-04-13 12:33 | XMS_ITS | Encounter Summary ---
Author Organization [facility] Address [address] [place] [address] Care Team Providers Care Manager Cardiovascular Name Role Phone Rocky Almanzar MD Primary Care Provider [phone] Reason for Visit * Reason Comments Med Refill Encounter Details Date Type Department Care Team (Late Contact Info) Description 11/10/2021 Refill [facility] [address] [place] [address] Jason Romero MD [address] [address] Type 2 diabetes mellitus with other specified complication, with long-term current use of insulin ([facility]) Social History Tobacco Use Types Packs/Day Years [...] Department Care Team (Late Contact Info) Description 07/07/2025 11:40 AM EDT Office Visit [facility] [address] [place] [phone] Melany Rosales DO [address] [place] [address] 01/05/2026 11:00 AM EST Office Visit [facility] [place] [address], [address] [place] [address] Vivian Macias S, OD [address] [facility] [address] [place] [address] documented as of this encounter Visit Diagnoses Diagnosis Type 2 diabetes mellitus with other specified complication, with long-term current use of insulin ([facility]) documented in this encounter Additional Health Concerns Infection Onset Date Last Indicated Resolved Time MRSA 03/30/2021 03/30/2021 Assessment Noted Time A fall risk assessment has been complete d for the patient 10/11/2021 3:35 PM EST documented as of this encounter Care Teams Manager Cardiovascular Relationship Specialty Start Date End Date Rocky Almanzar MD [address] [place] [address] PCP - General 03/18/21 documented as of this encounter
--- OUTSIDE RECORDS SUMMARY | 2025-04-13 12:33 | XMS_ITS | Encounter Summary ---
Author Organization Healthcare Address [address] [place] [address] Care Team Providers Care Molded Candles Wicker Name Role Phone Rocky Almanzar MD Primary Care Provider [phone] Reason for Visit * Reason Comments Med Refill Encounter Details Date Type Department Care Team (Late Contact Info) Description 05/20/2021 Refill [facility] Endocrinology [address] [place] [address] Jason Romero MD [address] [address] Social History Tobacco Use Types [...] Description 07/07/2025 11:40 AM EDT Office Visit [facility] End[facility] [address] [place] [address] Melany Rosales, DO [address] [place] [address] 01/05/2026 11:00 AM EST Office Visit [facility] [place] [address], [address] [place] [address] Vivian Macias S, OD [address] [place] [address] documented as of this encounter Visit Diagnoses Not on filedocumented in this encounter Additional Health Concerns Infection Onset Date Last Indicated Resolved Time MRSA 03/30/2021 03/30/2021 documented as of this encounter Care Teams Molded Candles Wicker Relationship Specialty Start Date End Date Rocky Almanzar MD [address] [place] [address] PCP - General 03/18/21 documented as of this encounter
--- OUTSIDE RECORDS SUMMARY | 2025-04-13 12:33 | XMS_ITS | Clinical Summary ---
Author Organization [facility] Address [address] [place] [address] Care Team Providers Care Biblical Studies Professor Name Role Phone Rocky Almanzar MD Primary Care Provider [phone] Allergies Active Allergy Reactions Criticality Noted Date [...] Take 1 tablet (20 mg) by mouth daily. 2 Active ipratropium-alb uterol (Duo-Neb) 0.5-2.5 mg/3 mL [...] Take 1 tablet (50 mcg) by mouth daily before breakfast. 4 Active mirtazapine (Remeron) 15 MG tablet Take 1 tablet (15 mg) by mouth nightly. Active budesonide EC (Entocort EC) 3 MG 24 hr capsule Take 3 capsules (9 mg) by mouth every morning. Active ursodiol (Actigall) 500 MG tablet Take 1 tablet (500 mg) by mouth 2 (two) times a day. Active mycophenolate (Cellcept) 500 MG tablet Take by mouth 2 (two) times a day. Active metFORMIN (Glucophage) 500 MG tabletIndicatio ns:Type 2 diabetes mellitus with other specified complication, with long-term current use of insulin (CMS/HCC) TAKE ONE TABLET BY MOUTH TWICE DAILY --TAKE WITH FOOD-- 180 tablet 2 5 Active insulin lispro protamine-insul in lispro (HumaLOG MIX 75/25 KWIKPEN) (75-25) 100 UNIT/ML injection pen INJECT 26 UNITS THREE TIMES A DAY. TITRATE DIRECTED TO MAXIMUM DAILY DOSE OF 100 UNITS. 90 mL 1 5 Active Active Problems Problem Noted Date Diagnosed [...] polyp 09/12/2017 Iron deficiency 01/30/2017 Leukopenia 10/17/2016 DEYSI positive 09/12/2016 Chronic fatigue 09/12/2016 Hypothyroidism 09/12/2016 Infection or inflammatory re action due to other internal prosthetic device, implant, or graft 08/15/2016 Wound infection after surgery 02/22/2016 Bilateral sensorineural hearing loss 02/05/2015 Encounters Date Type Department Care Team Description 02/09/2025 Telephone [facility] Endocrinology [address] [place] [address] Jason Romero MD 01/16/2025 Refill [facility] Endocrinology [address] [place] [address] Jason Romero MD from Last 3 Months Immunizations Immunization Administration Dates Next Due Hep A, Adult [...] Cigarettes 1.5 15 0 11/05/1989 - 11/05/2004 Passive Smoke Exposure: Past Smokeless Tobacco: Never Tobacco Cessation:Counseling Given: Not [...] Sign Reading Time Taken Comments Blood Pressure 114/57 12/16/2024 12:01 PM EST Pulse 99 12/16/2024 12:01 PM EST Temperature 36.9 C (98.4 F) 01/13/2021 1:35 PM EST Respiratory Rate 16 06/17/2019 3:53 PM EDT Oxygen Saturation 94% 11/22/2023 11:20 AM EST Inhaled Oxygen Concentration - - Weight 54.7 kg (120 lb 9.5 oz) 12/16/2024 12:01 PM EST Height 165.1 cm (5' 5 ) 12/16/2024 12:01 PM EST Body Mass Index 20.07 12/16/2024 12:01 PM EST Plan of Treatment Upcoming Encounters Date Type Department Care Team (Late st Contact Info) Description 07/07/2025 11:40 AM EDT Office Visit [facility] [address] [place] [id number] Melany Rosales, DO [address] [place] [address] 01/05/2026 11:00 AM EST Office Visit [facility] [place] [address] [place] [address] Vivian Macias, OD [address] [place] [address] Health Maintenance Due Date Last Done Comments [facility]-Depression Screening 1950 [facility]-Medicare Annual Wellness (AWV) 1950 [facility]-Infant/Child/Adol SDOH Screenings 1950 Diabetes: Dental Exam 1961 [facility]- SDOH Screenings 1969 [facility]-Adult SDOH Screenings 1969 [facility]-DTaP,Tdap,and Td Vaccines (1 - Tdap) 1970 [facility]-Zoster Vaccines (1 of 2) 1970 CT Colonography 1996 FIT-DNA 1996 FIT 1996 FOBT 1996 Sigmoidoscopy 1996 [facility]-Abdominal Aortic Aneurysm (AAA) Screening 2016 [facility]-Pneumococcal Vaccine: 50+ Years (2 of 2 - PCV) 08/13/2019 08/13/2018 [facility]-Diabetes: Hemoglobin A1C 03/17/202509/2025, 05/23/2024, 11/22/2023, Additional history exists DGT-AWVCF-90 Vaccine (7 - Moderna risk 2023- season) 2025 10/13/2024, 10/01/2023, 09/20/2022, Additional history exists [facility]-Influenza Vaccine (Season Ended) 2025 10/16/2023, 09/22/2021, 09/22/2021, Additional history exists Colonoscopy 08/03/2027 08/03/2017 [facility]-Colorectal Cancer Screening 08/03/2027 [facility]-Hepatitis A Vaccines Completed 03/03/2013, 07/07 [facility]-Hepatitis C Screening Completed 08/15/2016 [facility]-RSV Vaccine: 60+ Years or Completed 11/02/2023 HPV Vaccines Aged Out No longer eligi ble based on patient's age to complete this topic [facility]-HIB Vaccines Aged Out No longer e ligible based on patient's age to complete this topic [facility]-IPV Vaccines Aged Out No longer e ligible based on patient's age to complete this topic [facility]-Rotavirus Vaccines Aged Out No lo nger eligible based on patient's age to complete this topic Medical Devices Implanted Type Area Dairy Helper Device Identifier Shelf Expiration Date Model / Serial / Lot Roseline Stanleyk Advantage Ci Hifocus 1j Electrode--06/05 Implanted:06/05 by Ky Del Rio MD (Quantity not on file) Cochlear Left: Ear Advanced Accupass [id number] / [id number] / Description:Roseline 90K Advant age CI HiFocus 1J electrode--cochlear implant by Dr. Del Rio at [facility] on 06/21/2017, operative note in Epic. LEFT EAR. Roseline ULTRA 3D Cochlear implant REF: [id number] Serial number: [id number] Procedures Procedure Name Priority Date/Time Associated Diagnosis Comments POCT GLYCOSYLATED HEMOGLOBIN (HGB A1C) Routine 12/16/2024 12:27 PM EST Type 2 diabetes mellitus with hyperglycemia, with long-term current use of insulin (CMS/HCC) COLONOSCOPY 08/03/2017 HEPATITIS C ANTIBODY W/REFLEX TO HCV QUANT PCR Routine 08/15/2016 10:05 AM EDT from Last 3 Months or Most Recently Relevant to Health Maintenance Results * POCT glycosylated hemoglobin (Hb A1C) (12/16/2024 12:27 PM EST) POCT Hemoglobin A1C 7.6 <5.7% Non-Diabet ic % [facility] Kit Lot Number [id number] [facility] Kit Expiration Date 10/04/26 HEALTHCARE [facility] Blood Venous blood specimen / Unknown 12/16/2024 12:27 PM EST Jason Romero MD POINT OF CARE TEST ENTER/ED IT ORDERABLES Final Result [facility] [address] [place] [address] * COLONOSCOPY (08/03/2017) Anatomical Region Laterality Modality Endoscopy Narrative 08/03/2017 Ordered by an unspecified provider. 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
[2025-04-13 13:27] LABS: Albumin Level 3.3 g/dl (3.5-5.0); Chloride 106 mmol/L (98-107); Sodium 136 mmol/L (136-145)
[2025-04-13 13:28] LABS: Potassium 4.1 mmoL/L (3.5-5.1)
[2025-04-13 13:30] LABS: Alanine Aminotransferase 41 U/L (12-78); Alkaline Phosphatase 91 U/L (38-126); Anion Gap 7.1 mEq/L (5-15); Aspartate Amino Transferase 29 U/L (17-59); Bilirubin,Total 0.7 mg/dl (0.2-1.3); Blood Urea Nitrogen 28 mg/dl (9-20); Carbon Dioxide 27 mmol/L (22.0-30.0); Estimated Glomerular Filt Rate 94 ml/min (>60); GFR (African American) 114 ML/MIN (>60)
[2025-04-13 13:31] LABS: Albumin/Globulin Ratio 1.4 (1.1-1.8); Calcium 8.6 mg/dl (8.4-10.2); Globulin 2.4 g/dL (1.3-3.2); Glucose 173 mg/dl (74-100); Total Protein,Serum 5.7 g/dl (6.3-8.2)
== END 2025-04-13 23:59 | disposition home or self-care (01) ==
LOC: LAB 12:31
PROVIDERS: PCP Family Medicine; Visit Provider Nurse Practitioner Family
DX: K75.3 Granulomatous hepatitis, not elsewhere classified (principal)
CPT/HCPCS: 36415; 80053

== ENCOUNTER 2025-04-21 10:49 | Outpatient (CLI) | payer MEDICARE, SELFPAY ==
--- OUTSIDE RECORDS SUMMARY | 2025-02-11 10:00 | XMS_ITS ---
Author Organization [facility] Address [address] [id number] Care Team Providers Care Base Engineer Name Role Phone Shauna Almanzar Primary Care Provider [phone] Emir Berger Unavailable [phone] Allergies Allergen (clinical drug ingredient) Drug/Non Drug [...] mg 1 tablet Orally ever y other day for 90 days Active Mirtazapine 15 mg TAKE ONE TABLET BY MOUTH EVERY DAY AT BEDTIME for 30 Active Pravastatin Sodium 20 mg TAKE ONE TABLET BY MOUTH EVERY DAY for 30 Active Ezetimibe 10 mg TAKE ONE TABLET BY MOUTH EVERY DAY for 30 Active Levothyroxine Sodium 50 mcg TAKE ONE TABLET BY MOUTH EVERY MORNING ON AN EMPTY STOMACH for 90 Active Mycophenolate Mofetil 500 MG 1 tablet Orally Twice a day for 30 day(s) Active Ursodiol 500 MG 1 tablet Orally twic e a day Active metFORMIN HCl 500 MG 1 tablet with a igor l Orally Twice a day Active Cholecalciferol 25 MCG (1000 UT) 1 capsule Orally Once a day for 30 day(s) Active Budesonide 3 MG 3 capsules Orally at bedtime Active Itraconazole 100 MG 1 capsule after a me al Orally Once a day for 10 day(s) Not-Taking Ipratropium-Albuterol 0.5-2.5 (3) MG/3ML 3 mL as needed Inhalation every 6 hrs Active Warfarin Sodium 6 MG 1 tablet Orally Onc e a day for 30 day(s) Active Problems Problem Type SNOMED Code ICD Code Onset Dates Problem Status W/U Status Risk Notes Problem 684678344105992 Type 2 diabetes mellitus with hyperglycemia (E11.65) Active confirmed Problem 940377599 alf (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 (Z79.4) Active confirmed Vital Signs Blood pressure systolic 110 mm Hg 02/12/20 25 Blood pressure diastolic 62 mm Hg 025 Heart Rate 100 /min 02/11/2025 Height 65 in 02/11/2025 Weight 117.4 lbs 02/11/2025 BMI 19.53 kg/m2 02/11/2025 Encounters Encounter Location Date Provider Diagnosis [facility] [address] [facility] [address] [place] [id number] 02/11/2025 Emir Berger Type 2 diabetes aquilino itus with hyperglycemia E11.65 ; terminal superintendent (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.4 ; Gross hematuria R31.0 and Body mass index (BMI) of 19.0 to 19.9 in adult Z68.1 Assessments Encounter Date Diagnosis (ICD Code) Assessment Notes Treatment Notes Treatment Clinical Notes Section Notes 02/11/2025 Type 2 diabetes mellitus with hyperglycemia (ICD-10 - E11.65) Patient needs to resume use of his CGM 02/11/2025 alf (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 (ICD-10 - Z79.4) [...] Up: as scheduled,and prn, Reason: Provider Name:Shauna Beatty [place] , 04/30/2025 02:00:00 PM, [address], [address], [place], [place], [id number], Provider Name:Shauna Beatty [place] er, 07/06/2025 03:34:00 PM, [address], [address], [place], [place], [id number], Progress Notes * HERMILA GOLDENOB: [birth year] (75 yo M)Acc No.[id number]:02/11/2025 Progress Notes Patient: HERMILA BUCIO Provider: Jaden Berger M.D. 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 * [...] Three times a day , Discontinued Nystatin 487197 UNIT/ML Suspension 5 ml Mouth/Throat Twice a day , Discontinued Aspirin Adult Low Dose 81 MG Tablet Delayed Release 1 tab(s) orally once a day , Medication List reviewed and reconciled with the patient * Allergies: C ephalexin. Objective: * Vitals: W t:117.4, Temp:98.1, BP:110/62, HR:100, O2 Sat:99% on RA, Nurse:nasra, Ht: 65, BMI:19.53. * Examination: G eneral Examination: General Appearance: N AD. Heart: R SR. Lungs: c lear to auscultation, diminished in both bases.? Assessment: * Assessment: 1. T ype 2 diabetes mellitus with hyperglycemia - E11.65 (Primary) 2 . L tonia term (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 - Z79.4 3 . G ross hematuria - R31.0 ?4. B dl mass [...] Follow Up: a s scheduled,and prn * Billing Information: * Visit Code: 36158 Office Visit, Est Pt., Level 4. * Procedure Codes: G2211 Complex e/m visit add on. G8752 MOST RECENT SYSTOLIC BP < 140MM HG. G8754 MOST RECENT DIASTOLIC BP < 90MM HG. * Electronic signature of Elidia Berger MD on 04/21/2025 at 10:56 AM EDT Sign off status: Pending * Provider: Jaden Berger M.D. Date: 0 02/11/2025 Generated for Marissa mendoza/Rei/Khurramitting on: 0 04/21/2025 10:56 AM EDT History and Physical Notes * [...]
--- OUTSIDE RECORDS SUMMARY | 2025-03-13 10:15 | XMS_ITS ---
Author Organization [facility] Address 1210 [facility] [address] [phone] Care Team Providers Care Certified Rehabilitation Counselor Name Role Phone Shauna Almanzar Primary Care Provider [phone] Doretha Bunrs Unavailable [phone] Allergies Allergen (clinical drug ingredient) Drug/Non Drug Allergy documented on EMR Reaction Allergy Type Onset Date Status cephalexin Cephalexin Unknown Drug Allergy Activ e REASON FOR VISIT face is swollen per Alyssa at [facility], possible interaction with budesonide and itraconazole [...] 03/13/2025 Encounters Encounter Location Date Provider Diagnosis [facility] [address] [place], [place] [phone] 03/13/2025 Doretha Burns Drug interaction Z78 .9 [...] 04/30/2025 02:00:00 PM, [address] [facility], [address], [place], [id number], Provider Name:Shauna fofana, 07/06/2025 03:34:00 PM, [address] [facility], [address], [place], [place], [phone], Progress Notes * HERMILA GOLDENOB: [birth year] (75 yo M)Acc No.[id number]:03/13/2025 Progress Notes Patient: HERMILA BUCIO BENJIE Provider: LUCIA Davis:1950 A ge:74 Y S ex:Male Date:03/13/2025 Address:[address] [facility] [address], [place] , [id number] Pcp:Shauna Almanzar Subjective: * Chief Complaints: * 1 . face is swollen per Alyssa at [facility], possible interaction with budesonide and itraconazole. 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 * Procedure Codes: G2211 Complex e/m visit add on. * Electronic signature of LUCIA Dean on 04/21/2025 at 10:55 AM EDT Sign off status: Pending * Provider: LUCIA Davis Date: 0 03/13/2025 Generated for Marissa mendoza/Rei/eTransmitting on: 0 04/21/2025 10:55 AM EDT History and Physical Notes * [...]
--- OUTSIDE RECORDS SUMMARY | 2025-04-02 10:15 | XMS_ITS ---
Author Organization [facility] Address [address] [facility] [address] [id number] Care Team Providers Care Laborer Brush Clearing Name Role Phone Shauna Almanzar Primary Care Provider Allergies Allergen (clinical drug ingredient) Drug/Non Drug Allergy documented on EMR Reaction Allergy Type Onset Date Status cephalexin Cephalexin Unknown Drug Allergy Activ e Results Component Value Reference Range Notes P-Comprehensive Metabolic Pa tarah (CMP) (Not yet reviewed by provider) Interpretation:gluc 347, bun 29, Ca 8.5, prot 5.5 Performing Lab: Notes/Report: Test performed by [employer] [facility]0 [facility] , [address], [place] [address] Kristian Trevino MD, Electric Motor Assembler CLIA: [id number] Sodium 139 135-145 mmol/L Potassium 3.7 3.5-5.3 [...] 695 Performing Lab: Notes/Report: Test performed by [employer] [address] [place] [address] , [address], [place] [address] Kristian Trevino MD, Electric Motor Assembler CLIA: [id number] Albumin/Creatinine Ratio, Urine 695 0-30 ug/m g Microalbumin, Urine, Random 16.4 Creatinine, Urine 23.6 Glycohemoglobin A1c (in hous e) Reviewed date:04/03/2025 09:15:19 AM Interpretation:11 Performing Lab: Notes/Report: 11 glycohemoglobin 11.1% 5 - 6.5 % Reason For Referral Reason weakness, lung disea se, adrenal disease Diagnosis 1 Generalized weakness (R53.1) Referral Organization [facility] Referring Provider First Name Shauna Beatty Referring [...] e a day for 30 day(s) Active Ipratropium-Albuterol 0.5-2.5 (3) MG/3ML 3 mL as needed Inhalation every 6 hrs Active Ursodiol 500 MG 1 tablet Orally twic e a day Active Mycophenolate Mofetil 500 MG 1 tablet Orally Twice a day for 30 day(s) Active metFORMIN HCl 500 MG 1 tablet with a igor l Orally Twice a day Active Lantus SoloStar 100 UNIT/ML 5 units Subcutaneous once daily for 30 days 04/02/2025 Active HumaLOG Mix 75/25 (75-25) 100 UNIT/ML 36 units subcutaneously three times a day ac Active Itraconazole 100 MG 2 capsule after a me al Orally twice a day Active Itraconazole 100 MG 1 capsule after a me al Orally Once a day for 10 day(s) Not-Taking Mirtazapine 15 mg TAKE ONE TABLET BY MOUTH EVERY DAY AT BEDTIME for 30 Active Jardiance 10 mg 1 tablet Orally ever y other day for 90 days Active Levothyroxine Sodium 50 mcg TAKE ONE TABLET BY MOUTH EVERY MORNING ON AN EMPTY STOMACH for 90 Active Budesonide 3 MG 1 Orally at bedtime Active Cholecalciferol 25 MCG (1000 UT) 1 capsule Orally Once a day for 30 day(s) Active Vital Signs Blood pressure systolic 110 mm Hg 04/02/20 25 Blood pressure diastolic 60 mm Hg 025 Heart Rate 92 /min 04/02/2025 Height 65 in 04/02/2025 Weight 123.0 lbs 04/02/2025 BMI 20.47 kg/m2 04/02/2025 Encounters Encounter Location Date Provider Diagnosis [facility] [address] [place], [place] [phone] 04/02/2025 Shauna Almanzar Type 2 diabetes aquilino [...] 100 UNIT/ML 5 units Subc utaneous once daily for 30 days 04/02/2025 Ezetimibe 10 mg TAKE ONE TABLET BY M OUTH EVERY DAY Pending Test Test Name Order Date P-Comprehensive Metabolic Panel (CMP) P-Microalbumin/Creatinine, Random Urine Sample 04/02/2025 Referrals Referral Date Details 04/02/2025 04/02/2025, weakness , lung disease, adrenal disease Next Appt Details Follow Up: 4 Weeks, Reason: Provider Name:Shauna Merida er, 04/30/2025 02:00:00 PM, [address] [facility] 36 [facility], [address], [place], [phone], Provider Name:Shauna Merida er, 07/06/2025 03:34:00 PM, [address] [facility] 36 [facility], [address], [place], [id number], Progress Notes * HERMILA GOLDENOB: [birth year] (75 yo M)Acc No.[id number]:04/02/2025 Progress Notes Patient: HERMILA BUCIO Provider: Shauna Almanzar M.D. 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 He looks much better.. HEENT: u nremarkable. Oral cavity: n o lesions, mucosa moist and WNL, no erythema. Neck: s upple, no lymphadenopathy. Chest: n ormal shape and expansion. Heart: R SR. Lungs: d ecreased breath sounds. Abdomen: soft and nontender, no organomegaly or masses.? Neurologic Exam: I ntact, gait normal. Skin: n ormal, no rash. Peripheral pulses: n ormal. Back: mild dorsal kyphosis. Extremities: n o leg edema. Assessment: * Assessment: [...] G 2211 Complex e/[place], [address] GLYCATED HEMOGLOBIN TEST, Modifiers: QW , G8752 [...] negative. * Follow Up: 4 Weeks * Billing Information: * Visit Code: 58820 Office Visit, Est Pt., Level 4. * Procedure Codes: G2211 Complex e/[place]. [address] GLYCATED HEMOGLOBIN TEST. Modifiers: QW G8752 MOST RECENT SYSTOLIC BP < 140MM HG. G8754 MOST RECENT DIASTOLIC BP < 90MM HG. 3046F HEMOGLOBIN A1C LEVEL > 9.0%. G8420 BMI<30 AND >=22 CALC & DOCU. 1036F TOBACCO NON-USER. 3017F COLORECTAL CA SCREEN DOC REV. * Electronic signature of Shauna Almanzar MD on 04/21/2025 at 10:56 AM EDT Sign off status: Pending * Provider: Shauna Almanzar M.D. Date: 0 04/02/2025 Generated for Marissa mendoza/Rei/Khurramitting on: 0 04/21/2025 [...]
--- OUTSIDE RECORDS SUMMARY | 2025-04-17 10:26 | XMS_ITS ---
Author Organization [facility] Address [address] [place] [address] [place] [address] Phone Care Team Providers Care Airport Maintenance Laborer Name Role Phone Sukumar CUEVAS, Rocky Griggs [ ] Conditions or Problems No information available. Medications Medication Instructions Start Date Stop Date Generic Name [facility] Provider budesonide 3 mg by mouth as needed as directed budesonide [facility] EZETIMIBE 10 MG TABS 1 tablet by mouth once a day ezetimibe [id number] [facility] XARELTO 20 MG TABS rivaroxaban 60628123606 [facility] PRAVASTATIN SODIUM 20 MG TABS 1 tablet by mouth once a day pravastatin [id number] [facility] aspirin 81 mg capsule 1 capsule by mouth once a day aspirin [facility] Medications Administered No information available. Allergies, Adverse Reactions, Alerts No information available. Results Date Name Value Unit Range Flag Description Office Visit: Office Visit: 11 SMOK STATUS Former smoker Tob acco smoking status MEDS REVIEW Done Documenta tion of current medications (procedure) Plan of Care Type Date Detail Appointment 11:00 AM Rocky Patino MD, [address] [facility], [address], [place], [address], Pending order CMP Pending order CBC with [...]
--- OUTSIDE RECORDS SUMMARY | 2025-04-21 10:55 | XMS_ITS | Clinical Summary ---
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 01/09 Echo Mccurdy 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/09 Active 01/09 Echo Mccurdy Acute pulmonary histoplasmosis capsulati Medications Medication Instructions Start Date Stop Date Generic Name [facility] Provider budesonide 3 mg by mouth as needed as directed budesonide [facility] EZETIMIBE 10 MG TABS 1 tablet by mouth once a day ezetimibe 55157330723 [facility] XARELTO 20 MG TABS rivaroxaban 15622396692 [facility] PRAVASTATIN SODIUM 20 MG TABS 1 tablet by mouth once a day pravastatin 41035698483 [facility] aspirin 81 mg capsule 1 capsule by mouth once a day aspirin [facility] ITRACONAZOLE 100 MG CAPS Take 2 capsule by mouth twice a day itraconazole 60168713755 [facility] ITRACONAZOLE 100 MG CAPS TAKE TWO CAPSULES BY MOUTH TWICE DAILY itraconazole 82820001635 Rocky Patino MD IPRATROPIUM-ALBU TEROL 0.5-2.5 (3) MG/3ML SOLN ipratropium-albut ph[place] 76294583212 [facility] JARDIANCE 10 MG TABS 1 tablet by mouth once a day empagliflozin 04553879045 [facility] ITRACONAZOLE 100 MG CAPS Take 2 capsule by mouth twice a day itraconazole 31050010704 Rocky Patino MD XARELTO 20 MG TABS rivaroxaban 36976231044 [facility] aspirin 81 mg capsule 1 capsule by mouth once a day aspirin [facility] budesonide 9 mg by mouth as needed as directed budesonide [facility] VITAMIN D 25 MCG (1000 UT) TABS 1 tablet by mouth once a day cholecalciferol (vitamin d3) 61145293032 [facility] JARDIANCE 10 MG TABS 1 tablet by mouth once a day empagliflozin 81004200271 [facility] EZETIMIBE 10 MG TABS 1 tablet by mouth once a day ezetimibe 67701598495 [facility] insulin lispro protamine-lispro 100 unit/mL (75-25) subcutaneous susp insulin lispro protamin-lispro [facility] IPRATROPIUM-ALBU TEROL 0.5-2.5 (3) MG/3ML SOLN ipratropium-albut phoenix 75491005230 [facility] LEVOTHYROXINE SODIUM 50 MCG TABS 1 tablet by mouth once a day levothyroxine 10596162437 [facility] METFORMIN HCL 500 MG TABS 1 tablet by mouth once a day metformin 96552782614 [facility] MIRTAZAPINE 15 MG TABS 1 tablet by mouth once a day mirtazapine 82060079939 [facility] MYCOPHENOLATE MOFETIL 500 MG TABS 1 tablet by mouth twice a day mycophenolate mofetil 17794275997 [facility] PRAVASTATIN SODIUM 20 MG TABS 1 tablet by mouth once a day pravastatin 56550950961 [facility] URSODIOL 500 MG TABS 1 tablet by mouth twice a day ursodiol 96444396866 [facility] Medications Administered No information available. 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, BLEND TECHNICIAN FALLRSKASSES yes Fall ris k assessment Lab [...] [phone] L T-helpe r cell (CD4) count Lab Report: CBC WITH AUTO DI FFERENTIAL [...] H Glucose [Mass/volume] in Serum or Plasma Office Visit: Office Visit: 11 SMOK STATUS Former smoker Tobacco smoking status MEDS REVIEW Done Documenta tion of current medications (procedure) Plan of Care Type Date Detail Appointment 11:00 AM Rocky Patino MD, [facility], [address], [place], [address], Pending order CMP Pending order CBC with Differe ntial Pending order BNP Pending order Itraconazole Lev el Pending order Continue oral an tibiotics Pending order Continue oral an tibiotics Pending [...] Date G2211 Complex E&M visit add-on (G2211) G221 Complex E&M visit add-on (G221) CPT-Cooral Continue oral antibiotics 20 27/02/11 CPT-12605 CMP [id number] CBC with Differential 2024 CPT-32921 Itraconazole Level 1 CPT-02141 BNP CPT-elizabeth New Oral Antibiotic CPT-23514 CMP [id number] CBC with Differential 2024 CPT-63541 CD4 19317 Fungitell, serum (1-3) D-Glucan Assay 03/07/12 CPT-90191 Urine Culture & Sensitivity [id number], [id number] Urinalysis CPT-cf Fungal Culture & Sensitivity CPT-40208 BNP Vital Signs Date Name Value Unit [...]
--- OUTSIDE RECORDS SUMMARY | 2025-04-21 10:55 | XMS_ITS | Encounter Summary ---
Author Organization [facility] Address [address] [place] [address] Care Team Providers Care Kindergarten Instructional Assistant Name Role Phone Rocky Almanzar MD Primary Care Provider [phone] Reason for Visit * Reason Comments Med Refill Encounter Details Date Type Department Care Team (Late Contact Info) Description 11/10/2021 Refill [facility] [address] [place] [address] Jason Romero MD [address] [address] Type 2 diabetes mellitus with other specified complication, with long-term current use of insulin ([facility]) Social History Tobacco Use Types Packs/Day Years [...] Visit [facility] [address] [place] [phone] Melany Rosales DO [address] [place] [address] 01/05/2026 11:00 AM EST Office Visit [facility] [address], [address] [place] [address] Vivian Macias S, OD [address] [facility] [address] [place] [address] documented as of this encounter Visit Diagnoses Diagnosis Type 2 diabetes mellitus with other specified complication, with long-term current use of insulin ([facility]) documented in this encounter Additional Health Concerns Infection Onset Date Last Indicated Resolved Time MRSA 03/30/2021 03/30/2021 Assessment Noted Time A fall risk assessment has been complete d for the patient 10/11/2021 3:35 PM EST documented as of this encounter Care Teams Kindergarten Instructional Assistant Relationship Specialty Start Date End Date Rocky Almanzar MD [address] [place] [address] PCP - General 03/18/21 documented as of this encounter
--- OUTSIDE RECORDS SUMMARY | 2025-04-21 10:56 | XMS_ITS | Clinical Summary ---
Author Organization [facility] Address [address] 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 Name Role Phone Rocky Almanzar MD Primary Care Provider [phone] Allergies Active Allergy Reactions Criticality Noted Date [...] Type Department Care Team Description 02/09/2025 Telephone [facility] [place] [address] Jason Romero MD from Last [...] 07/07/2025 11:40 AM EDT Office Visit [facility] [address] [place] [address] Melany Rosales DO [address] [place] [address] 01/05/2026 11:00 AM EST Office Visit [facility] [address], [address] [place] [address] Vivian Macias, OD [address] [place] [address] Health Maintenance Due Date Last [...] A1C 03/17/202509/2025, 05/23/2024, 11/22/2023, Additional history exists [id number] Vaccine (7 - Moderna risk season) 2025 10/13/2024, 10/01/2023, 09/20/2022, Additional history [...] this topic Medical Devices Implanted Type Area Wheel Aligner Device Identifier Shelf Expiration Date Model / Serial / Lot Roseline 90k Advantage Ci Hifocus 1j Electrode--06/05 Implanted:06/05 by Ky Del Rio MD (Quantity not on file) Cochlear Left: Ear [employer] [id number] / [id number] / Description:Roseline StanleyK Advant age CI HiFocus 1J electrode--cochlear implant by Dr. Del Rio at [facility] on 06/21/2017, operative note in Epic. LEFT EAR. RAMP HoldingsMICAELA ULTRA 3D Cochlear implant REF: [id number] Serial number: [id number] Procedures Procedure Name Priority Date/Time Associated Diagnosis [...] A1C 7.6 <5.7% Non-Diabet ic % [facility] Kit Lot Number [id number] [facility] Kit Expiration Date 10/04/26 [facility] Blood Venous blood specimen / Unknown 12/16/2024 12:27 PM EST Jason Romero MD POINT OF CARE TEST ENTER/ED IT ORDERABLES Final Result [facility] [address] [place] [address] * COLONOSCOPY (08/03/2017) Anatomical Region Laterality Modality Endoscopy Narrative 08/03/2017 Ordered by an unspecified provider. 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
--- OUTSIDE RECORDS SUMMARY | 2025-04-21 10:56 | XMS_ITS | Encounter Summary ---
Author Organization [facility] Address [address] [place] [address] Care Team Providers Care Fur Cleaner Name Role Phone Rocky Almanzar MD Primary Care Provider [phone] Reason for Visit * Reason Comments Med Refill Encounter Details Date Type Department Care Team (Late Contact Info) Description 05/20/2021 Refill [facility] [address] [place] [address] Jason Romero MD [address] [address] Social History Tobacco Use Types [...] Description 07/07/2025 11:40 AM EDT Office [facility] [address] [place] [address] Melany Rosales, DO [address] [place] [address] 01/05/2026 11:00 AM EST Office Visit [facility] [place] [address] [place] [address] Vivian Macias S, OD [address] [place] [address] documented as of this encounter Visit Diagnoses Not on filedocumented in this encounter Additional Health Concerns Infection Onset Date Last Indicated Resolved Time MRSA 03/30/2021 03/30/2021 documented as of this encounter Care Teams Fur Cleaner Relationship Specialty Start Date End Date Rocky Almanzar MD [address] [place] [address] PCP - General 03/18/21 documented as of this encounter
--- OUTSIDE RECORDS SUMMARY | 2025-04-21 10:57 | XMS_ITS | Patient Health Record ---
Author Organization [facility] Address [address] [facility] [address] [id number] Care Team Providers Care Ict Support Technicians Name Role Phone Shauna Almanzar Primary Care Provider [phone] Emir Berger Unavailable [phone] Trinity Medeiros Unavailable [phone] Doretha Burns Unavailable [phone] Allergies Allergen (clinical drug ingredient) Drug/Non Drug Allergy documented on EMR Reaction Allergy Type Onset Date Status cephalexin Cephalexin Unknown Drug Allergy Activ e Results Component Value Reference Range Notes H-CBC Reviewed date:11/04/2024 10:00:59 AM Interpretation: Performing Lab: Notes/Report: WBC 2.1 4.8-10.8 K/mm3 RBC 4.63 4.60-6.20 M/mm3 HGB 14.4 14.1-18.0 g/dL HCT 42.9 42.0-52.0 % MCV 92.7 80-94 fl MCH 31.1 27.0-31.2 pg MCHC 33.6 31.8-35.4 g/dL RDW 15.4 11.5-17.5 % PLT 227 142-424 K/mm3 MPV 9.1 7.4-10.4 fl NE% 54.5 37.0-80.0 % LY% 29.7 10-50 % MO% 11.0 1.7-9.3 % EO% 2.9 0.1-12.0 % BA% 1.4 0.1-2.0 % NE# 1.1 1.8-7.8 K/mm3 LY# 0.6 0.7-4.5 K/mm3 MO# 0.2 0.1-1.0 K/mm3 EO# 0.1 0.0-0.4 K/mm3 BA# 0.0 0-0.2 K/mm3 CXR Reviewed date:11/04/2024 09:39:36 AM Interpretation:chronic findings, nothing new Performing Lab: Notes/Report: chronic findings, nothing new P-Comprehensive Metabolic Pa tarah (CMP) (Not yet reviewed by provider) Interpretation:gluc 347, bun 29, Ca 8.5, prot 5.5 Performing Lab: Notes/Report: Test performed by [facility] [address] [place] [address] , [address], [place] [address] Kristian Trevino MD, Lockstitch Machine Operator CLIA: [id number] Sodium 139 135-145 mmol/L Potassium 3.7 3.5-5.3 [...] 695 Performing Lab: Notes/Report: Test performed by [facility] [address] [place] [address] , [address], [place] [address] Kristian Trevino MD, Lockstitch Machine Operator CLIA: [id number] Albumin/Creatinine Ratio, Urine 695 0-30 ug/mg Microalbumin, Urine, Random 16.4 Creatinine, Urine 23.6 Glycohemoglobin A1c (in hous e) Reviewed date:04/03/2025 09:15:19 AM Interpretation:11 Performing Lab: Notes/Report: 11 glycohemoglobin 11.1% 5 - 6.5 % Urinalysis - Inhouse Reviewed date:01/18/2025 02:07:53 PM Interpretation: Performing Lab: Notes/Report: Color/Clarity red/cloudy Leuk Neg Nitrite Neg Urobili 3.2 Protein 2+ pH 5.5 Blood 3+ Sp. Gr. 1.015 Ketone Neg Bili 1+ Gluc 2+ Ultrasound : Bladder scan Reviewed date:04/20/2025 10:25:30 AM Interpretation:does not want Performing Lab: Notes/Report: does not want P-Comprehensive Metabolic Pa tarah (CMP) Reviewed date:01/12/2025 11:34:53 AM Interpretation:gluc 144, bun 30, Cr 1.35, gfr 55, alk phos 229 Performing Lab: Notes/Report: Test performed by [facility] [employer] [facility] , [address], [place] [address] Kristian Trevino MD, Lockstitch Machine Operator CLIA: [id number] Sodium 138 135-145 mmol/L Potassium 4.3 3.5-5.3 [...] 0.7 <0.2-1.2 mg/dL A/G Ratio 1.2 1.1-2.5 CBC Venipuncture (in house) Reviewed date:01/09/2025 01:37:42 [...] - 38 platlet 276 100 - 400 Urinalysis - Inhouse Reviewed date:01/09/2025 01:37:28 PM Interpretation: Performing Lab: Notes/Report: Color/Clarity red/cloudy Leuk Neg Nitrite Neg Urobili 3.2 Protein 2+ pH 6.0 Blood 3+ Sp. Gr. 1.015 Ketone Neg Bili Neg Gluc 2+ H-TSH Reviewed date:11/13/2024 01:33:09 PM Interpretation:Normal Performing Lab: Notes/Report: TSH 3.05 0.465-4.68 uIU/mL Rapid Strep- Inhouse Reviewed date:09/16/2024 01:23:25 PM Interpretation:Positive Performing Lab: Notes/Report: Positive strep test Pos H-BMP Reviewed date:09/15/2024 10:12:19 AM Interpretation:bun 25, Cr 1.3, gfr 54, gluc 370 Performing Lab: Notes/Report: NA 138 136-145 mmol/L K 4.3 3.5-5.1 mmoL/L CL 106 98-107 mmol/L CO2 26 22.0-30.0 mmol/L GAP 10.3 5-15 mEq/L BUN 25 9-20 mg/dl CREATT 1.30 0.66-1.25 mg/dl GFRAA 65 >60 ML/MIN EGFR 54 >60 ml/min GLU 370 74-100 mg/dl CA 9.0 8.4-10.2 mg/dl H-BMP Reviewed date:09/19/2024 01:07:51 PM Interpretation:ordered by specialist Performing Lab: Notes/Report: NA 141 136-145 mmol/L K 3.8 3.5-5.1 mmoL/L CL 112 98-107 mmol/L CO2 21 22.0-30.0 mmol/L GAP 11.8 5-15 mEq/L BUN 22 9-20 mg/dl CREATT 1.20 0.66-1.25 mg/dl GFRAA 72 >60 ML/MIN EGFR 59 >60 ml/min GLU 242 74-100 mg/dl CA 8.4 8.4-10.2 mg/dl Glycohemoglobin A1c (in hous e) Reviewed date:10/10/2024 10:20:31 AM Interpretation: Performing Lab: Notes/Report: glycohemoglobin 7.7% 5 - 6.5 % H-CBC Reviewed date:08/26/2024 02:54:53 PM Interpretation: Performing Lab: Notes/Report: WBC 5.9 4.8-10.8 K/mm3 Delta: 4.4 on 08/25/24 RBC 4.07 4.60-6.20 M/mm3 HGB 12.7 14.1-18.0 g/dL HCT 37.1 42.0-52.0 % MCV 91.1 80-94 fl MCH 31.2 27.0-31.2 pg MCHC 34.3 31.8-35.4 g/dL RDW 14.8 11.5-17.5 % PLT 332 142-424 K/mm3 MPV 7.9 7.4-10.4 fl NE% 86.2 37.0-80.0 % LY% 10.3 10-50 % MO% 2.7 1.7-9.3 % EO% 0.3 0.1-12.0 % BA% 0.6 0.1-2.0 % NE# 5.1 1.8-7.8 K/mm3 LY# 0.6 0.7-4.5 K/mm3 MO# 0.2 0.1-1.0 K/mm3 EO# 0.0 0.0-0.4 K/mm3 BA# 0.0 0-0.2 K/mm3 H-DIFF Reviewed date:08/26/2024 02:54:53 PM Interpretation: Performing Lab: Notes/Report: RUSLAN MANUAL DIFFERENTIAL MANUAL DIFF TCC 100 NEUT%M 86 42-76 % LYMPH%M 13 10-50 % MONO%M 1 2-9 % PLTE Normal RM Normal H-BMP Reviewed date:08/26/2024 02:54:53 PM Interpretation: Performing Lab: Notes/Report: NA 137 136-145 mmol/L K 3.7 3.5-5.1 mmoL/L Delta: 2.8 on 08/25/24 CL 111 98-107 mmol/L CO2 20 22.0-30.0 mmol/L GAP 9.7 5-15 mEq/L BUN 27 9-20 mg/dl CREATT 1.40 0.66-1.25 mg/dl CRCLE 33 50-200 mL/min GFRAA 60 >60 ML/MIN EGFR 50 >60 ml/min GLU 148 74-100 mg/dl Delta: 121 on 08/25/24-2251 CA 8.3 8.4-10.2 mg/dl H-BMP Reviewed date:09/08/2024 11:20:09 AM Interpretation:cl 109, co2 21, bun 25, tid944 Performing Lab: Notes/Report: NA 137 136-145 mmol/L K 3.8 3.5-5.1 mmoL/L CL 109 98-107 mmol/L CO2 21 22.0-30.0 mmol/L GAP 10.8 5-15 mEq/L BUN 25 9-20 mg/dl CREATT 1.20 0.66-1.25 mg/dl GFRAA 72 >60 ML/MIN EGFR 59 >60 ml/min GLU 380 74-100 mg/dl CA 9.0 8.4-10.2 mg/dl Medications Medication SIG (Take, Route, Frequency, Duration) Notes Start Date End Date Status Warfarin Sodium 6 MG 1 tablet Orally Onc e a day for 30 day(s) Active Itraconazole 100 MG 1 capsule after a me al Orally Once a day for 10 day(s) Not-Taking Ipratropium-Albuterol 0.5-2.5 (3) MG/3ML 3 mL as needed Inhalation every 6 hrs Active Mirtazapine 15 mg TAKE ONE TABLET BY MOUTH EVERY DAY AT BEDTIME for 30 Active Ursodiol 500 MG 1 tablet Orally twic e a day Active Lantus SoloStar 100 UNIT/ML 5 units Subcutaneous once daily for 30 days 04/02/2025 Active Mycophenolate Mofetil 500 MG 1 tablet Orally Twice a day for 30 day(s) Active Jardiance 10 mg 1 tablet Orally ever y other day for 90 days Active HumaLOG Mix 75/25 (75-25) 100 UNIT/ML 36 units subcutaneously three times a day ac Active Itraconazole 100 MG 2 capsule after a me al Orally twice a day Active Levothyroxine Sodium 50 mcg TAKE ONE TABLET BY MOUTH EVERY MORNING ON AN EMPTY STOMACH for 90 Active metFORMIN HCl 500 MG 1 tablet with a igor l Orally Twice a day Active Budesonide 3 MG 1 Orally at bedtime Active Cholecalciferol 25 MCG (1000 UT) 1 capsule Orally Once a day for 30 day(s) Active Immunizations Vaccine Route Administration Date Status Comme nts Prevnar (PCV13) IM Intramuscular 08/03/2015 Administered PNEUMOVAX 23 VACCINE IM Intramuscular 08/13/2018 Administe red Hepatitis A (adult) Unknown 07/31/2012 Administered Hepatitis A (adult) Unknown 03/03/2013 Administered Fluzone Quad-Medicare (6months&older) Unknown 09/22/2021 Administered Fluzone High Dose (65yr and older) IM Intramuscular 11/17/2016 Administered Fluzone High Dose (65yr and older) IM Intramuscular 08/16/2020 Administered Fluzone High Dose (65yr and older) IM Intramuscular 10/09/2024 Administered COVID 19 Moderna IM Intramuscular 11/15/2020 Administered COVID 19 Moderna IM Intramuscular 12/14/2020 Administered COVID 19 Moderna Unknown 09/28/2021 Administered Problems Problem Type SNOMED Code ICD Code Onset Dates Problem Status W/U Status Risk Notes Problem Essential hypertension (27352009) Essential (primary) hypertension (I10) Active confirmed Problem 51704669 Vitamin D deficiency (E55.9) Active confirmed Problem 51143683 Essential hypertension (I10) Active confirmed Problem 194594905 Prostate cancer screening (Z12.5) Active confirmed Problem 886717076 Paroxysmal atria l fibrillation (I48.0) Active confirmed Problem 484435046919470 Type 2 diabetes mellitus with hyperglycemia (E11.65) Active confirmed Problem 366060472 Mixed hyperlipidemia (E78.2) Active confirmed Problem Hyperlipidemia, unspecified (E78.5) Active confirmed Problem 49247094 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) Active confirmed Problem 325537772 Chronic respiratory failure with hypoxia (J96.11) Active confirmed Problem 663096056 Autoimmune hepatitis (K75.4) Active confirmed Problem 007911120 Calculus of gallbladder without cholecystitis without obstruction (K80.20) Active confirmed Problem 242295553 Cochlear implant status (Z96.21) Active confirmed Problem 353548274 Male erectile disorder (N52.9) Active confirmed Problem 451308166 senior living (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 (Z79.4) Active confirmed Problem 17990745 Type 2 diabetes mellitus without complication (E11.9) Active confirmed Problem 762597719 Acquired hypothyroidism (E03.9) Active confirmed Problem 60983448 Pulmonary fibros is (J84.10) Active confirmed Problem 07101952 Chronic fatigue (R53.82) Active confirmed Problem 29418736 Chronic obstructive pulmonary disease, unspecified COPD type (J44.9) Active confirmed Problem 326410567 Pneumonia of rig ht lower lobe due to infectious organism (J18.9) Active confirmed Problem 83393445 Hearing loss, bilateral (H91.93) Active confirmed Problem 10622866 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) Active confirmed Problem 167929887 Neutropenia, unspecified type (D70.9) Active confirmed Problem 965381556 Interstitial oby g disease (J84.9) Active confirmed Problem 737845475 Seasonal allergi c rhinitis, unspecified allergic rhinitis trigger (J30.2) Active confirmed Problem 749616107 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 confirmed Problem 22914165 Lupus (systemic lupus erythematosus) (M32.9) Active confirmed Problem 841307656 Caloric malnutrition (E46) Active confirmed Problem 705865458 BPH without urinary obstruction (N40.0) Active confirmed Problem 46286358 Acute seasonal allergic rhinitis due to pollen (J30.1) Active confirmed Problem 602665058 Sensorineural hearing loss (SNHL) of both ears (H90.3) Active confirmed Problem 62165168 Cholestatic hepatitis (K75.89) Active confirmed Problem 27916529 Sensitive skin (R20.3) Active confirmed Problem 29364453 Dilatation of aorta (I77.819) Active confirmed Problem 29507516502679185 Abnormal CT sc an, chest (R93.89) Active confirmed Problem Left atrial dilatation (445093775) Left atrial dilatation (I51.7) Active confirmed Problem 480854838 Protein malnutrition (E46) Active confirmed Vital Signs Heart Rate 92 /min 04/02/2025 Blood pressure diastolic 60 mm Hg 04/02/2025 Height 65 in 04/02/2025 Blood pressure systolic 110 mm Hg 04/02/2025 Weight 123.0 lbs 04/02/2025 BMI 20.47 kg/m2 04/02/2025 Encounters Encounter Location Date Provider Diagnosis [facility] [address] [facility] [address] [place], [place] [address], [place] [id number] 05/26/2024 Shauna Almanzar Interstitial lung disease J84.9 ; Chronic fatigue R53.82 ; Chronic respiratory failure with hypoxia J96.11 and Acquired hypothyroidism E03.9 [facility] [address] [facility] [address] [place], [place] [id number] 09/05/2024 Shauna Almanzar Pneumonia of left lo wer lobe due to infectious organism J18.9 ; Interstitial lung disease J84.9 ; Chronic respiratory failure with hypoxia J96.11 ; 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 ; Autoimmune hepatitis K75.4 ; Protein malnutrition E46 and Caloric malnutrition E46 [facility] [address] [facility] [address] [place], [place] [id number] 09/16/2024 Trinity Medeiros Strep pharyngitis J0 2.0 and Oral candidiasis B37.0 [facility] [address], [place] [id number] 10/09/2024 Shauna Almanzar Lesion of adrenal gl and E27.9 ; Essential hypertension I10 ; Type 2 diabetes mellitus without complication E11.9 ; Acquired hypothyroidism E03.9 ; Hearing loss, bilateral H91.93 ; Cochlear implant status Z96.21 ; Protein malnutrition E46 ; Chronic obstructive pulmonary disease, unspecified COPD type J44.9 and [facility]counter for immunization Z23 [facility] [address], [place] [id number] 11/03/2024 Emir [place] Acute cough R05.1 [facility] [address] [id number] 11/07/2024 Shauna Almanzar Type 2 diabetes aquilino itus without complication E11.9 ; Acquired hypothyroidism E03.9 and Hereditary hemochromatosis E83.110 [facility] [address] [facility] [address] [place], [place] [id number] 01/09/2025 Shauna Almanzar Type 2 diabetes aquilino itus without complication E11.9 ; Hereditary hemochromatosis E83.110 ; Cochlear implant status Z96.21 ; Chronic obstructive pulmonary disease, unspecified COPD type J44.9 ; Essential (primary) hypertension I10 ; Protein malnutrition E46 and Gross hematuria R31.0 [facility] [address] [facility] [address] [place], [place] [id number] 01/15/2025 Shauna Almanzar Interstitial lung disease J84.9 ; 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 ; Autoimmune hepatitis K75.4 ; Protein malnutrition E46 ; Cochlear implant status Z96.21 ; Type 2 diabetes mellitus without complication E11.9 and Hematuria R31.9 [facility] [address] [facility] [address] [place], [place] [id number] 02/11/2025 Emir Berger Type 2 diabetes aquilino itus with hyperglycemia E11.65 ; intermission coordinator (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.4 ; Gross hematuria R31.0 and Body mass index (BMI) of 19.0 to 19.9 in adult Z68.1 [facility] [address] [facility] [address] [place], [place] [id number] 03/13/2025 Doretha Katy Drug interaction Z78 .9 [facility] [address] [facility] [address] [place] [id number] 04/02/2025 Shauna Almanzar Type 2 diabetes aquilino itus without complication E11.9 ; 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 ; Cholestatic hepatitis K75.89 ; senior living (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.4 ; 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 ; Generalized weakness R53.1 and BMI 20.0-20.9, adult Z68.20 [facility] [address] [facility] [address] [place], [place] [id number] 05/01/2024 Shauna Almanzar Type 2 diabetes aquilino itus without complication E11.9 [facility] [address] [facility] [address] [place], [place] [id number] 06/04/2024 Shauna Almanzar [facility] [address] [facility] [address] [place] [id number] 09/01/2024 Shauna Almanzar [facility] [address] [place] [id number] 09/04/2024 Shauna Almanzar [facility] [address] [place] [id number] 09/08/2024 Shauna Almanzar [facility] [address] [facility] [address] [place] [id number] 09/10/2024 Shauna Almanzar [facility] [address] [facility] [address] [place] [id number] 09/15/2024 Shauna Almanzar [facility] [address] [place] [id number] 09/16/2024 Shauna Almanzar [facility] [address] [place], [place] [id number] 09/25/2024 Shauna Almanzar [facility] [address] [place], [place] [id number] 11/03/2024 Emir Berger [facility] [address] [place] [id number] 01/12/2025 Shauna Almanzar Assessments Encounter Date Diagnosis (ICD Code) Assessment Notes Treatment Notes Treatment Clinical Notes Section Notes 05/01/2024 Type 2 diabetes mellitus without complication (ICD-10 - E11.9) 05/26/2024 Chronic fatigue (ICD-10 - R53.82) 05/26/2024 Interstitial lung disease (ICD-10 - J84.9) 09/05/2024 Pneumonia of left lower lobe due to infectious organism (ICD-10 - J18.9) 09/05/2024 Interstitial lung disease (ICD-10 - J84.9) 09/16/2024 Strep pharyngitis (ICD-10 - J02.0) finish abx; gargle q2h prn; infectious precautions; change toothbrush in 3-4 days; good water intake with tylenol/motrin prn; brush teeth with water swish and spit x3 tid 09/16/2024 Oral candidiasis (ICD-10 - B37.0) 10/09/2024 Essential hypertension (ICD-10 - I10) 10/09/2024 Lesion of adrenal gland (ICD-10 - E27.9) 10/10/24: Dr. Almanzar spoke with Dr. Villarreal regarding the adrenal lesions. Phil Bae had discussed with Radiology and a follow-up study will be ordered in 3 months from the August study. Dr. Villarreal is sceptical of the reading, and the radiologist also expressed reservations. 11/03/2024 Acute cough (ICD-10 - R05.1) 11/07/2024 Type 2 diabetes mellitus without complication (ICD-10 - E11.9) 11/07/2024 Acquired hypothyroidism (ICD-10 - E03.9) 01/09/2025 Type 2 diabetes mellitus without complication (ICD-10 - E11.9) 01/09/2025 Hereditary hemochromatosis (ICD-10 - E83.110) 01/15/2025 Adrenal abnormality (ICD-10 - E27.9) 01/15/2025 Interstitial lung disease (ICD-10 - J84.9) 02/11/2025 Type 2 diabetes mellitus with hyperglycemia (ICD-10 - E11.65) Patient needs to resume use of his CGM 02/11/2025 senior living (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 (ICD-10 - Z79.4) 03/13/2025 Drug interaction (ICD-10 - Z78.9) Discussed with Dr. Almanzar. Swelling is likely due from the interaction of itraconazole and budesonide. Will decrease budesonide dose to 2 tab daily until he sees GI on Sunday and will discuss dosing with them, as they are the ones managing this medication. 04/02/2025 Type 2 diabetes mellitus without complication (ICD-10 - E11.9) 04/02/2025 Adrenal abnormality (ICD-10 - E27.9) 01/09/2025 Cochlear implant status (ICD-10 - Z96.21) 02/11/2025 Gross hematuria (ICD-10 - R31.0) Plan follow up with Dr. Lund soon, after he sees ID and GI in the next week 01/15/2025 Autoimmune hepatitis (ICD-10 - K75.4) 11/07/2024 Hereditary hemochromatosis (ICD-10 - E83.110) 10/09/2024 Type 2 diabetes mellitus without complication (ICD-10 - E11.9) 09/05/2024 Chronic respiratory failure with hypoxia (ICD-10 - J96.11) 05/26/2024 Chronic respiratory failure with hypoxia (ICD-10 - J96.11) 05/26/2024 Acquired hypothyroidism (ICD-10 - E03.9) 09/05/2024 Adrenal abnormality (ICD-10 - E27.9) 10/09/2024 Acquired hypothyroidism (ICD-10 - E03.9) 01/09/2025 Chronic obstructive pulmonary disease, unspecified COPD type (ICD-10 - J44.9) 01/15/2025 Protein malnutrition (ICD-10 - E46) 02/11/2025 Body mass index (BMI) of 19.0 to 19.9 in adult (ICD-10 - Z68.1) 04/02/2025 Cholestatic hepatitis (ICD-10 - K75.89) 04/02/2025 intermission coordinator (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 (ICD-10 - Z79.4) 01/15/2025 Cochlear implant status (ICD-10 - Z96.21) 01/09/2025 Essential (primary) hypertension (ICD-10 - I10) 10/09/2024 Hearing loss, bilateral (ICD-10 - H91.93) 09/05/2024 Autoimmune hepatitis (ICD-10 - K75.4) 09/05/2024 Protein malnutrition (ICD-10 - E46) 10/09/2024 Cochlear implant status (ICD-10 - Z96.21) 01/15/2025 Type 2 diabetes mellitus without complication (ICD-10 - E11.9) 01/09/2025 Protein malnutrition (ICD-10 - E46) 04/02/2025 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 Villarreal in Heme/Onc today about patient. Patient is seeing ID later this week with the plan to resume Itraconazole Plan Of Treatment Pending Test Test Name Order Date H-TSH 11/07/2024 P-Comprehensive Metabolic Panel (CMP) P-Microalbumin/Creatinine, Random Urine Sample 04/02/2025 Next Appt Details Provider Name:Shauna Merida er, 04/30/2025 02:00:00 PM, [address], [place], [id number], Provider Name:Shauna Merida er, 07/06/2025 03:34:00 PM, [address], [address], [place], [id number], Insurance Providers Payer Name Payer Address Payer Phone Subscriber Number Group Number Insured Name Patient Relationship to Insured Coverage Start Date Coverage End Date [facility] [address] [address] [place] [id number] HERMILA GOLDEN Self - patient is the insured Medical (General) History Medical History History ICD Code Seasonal Allergies Kidney Stones Steatohepatitis hemachromatosis,(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 Smalls and Dr. 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 user name and password for portal: [email or web address]...[email or web address] type 2 diabetes, followed at [facility] 06/05/2019 CT: healing of R shahbaz ng infection w some residual fibrosis, scaring.Sm R pleural eff, L pleural thickening known cholelithiasis, see 01/2020 [place] Covid vaccine x2 Moderna, Nov and Dec 25 My Chart, user name: shazia Passw: #[email or web address] bilateral iridectomies Sep 2021 histoplasmosis Surgical History Surgery Date(Month/Year) LT Knee Surgery 1999 Tonsillectomy Heart Cath 02/2012 Granuloma Annulare 2011,2013 cochlear implant on the right 08/11/2015 Colonoscopy 2007 cochlear implant, reimplant 06/14/2017 ablasion, cardiac 05/2019 cochlear implant, left side 04/07/2020 Cataracts 09/2021 Hospitalization History Reason Date(Month/Year) pneumonia 06/05-06/2010 implant removal 01/17/2017 Scalp Infection 02/23/2016 tachycardia 02/2012 chest pains fall 1984
[2025-04-21 11:42] LABS: PHA INR Fingerstick 1.2 (0.9-1.1)
== END 2025-04-21 11:46 ==
LOC: ACC 10:50
PROVIDERS: PCP Family Medicine; Visit Provider Nurse Practitioner
DX: I48.0 Paroxysmal atrial fibrillation (principal)
CPT/HCPCS: 85610; 99211; G0463

== ENCOUNTER 2025-04-27 11:26 | Outpatient (CLI) | payer MEDICARE, SELFPAY ==
--- OUTSIDE RECORDS SUMMARY | 2025-02-11 10:00 | XMS_ITS ---
Author Organization [facility] Address [address] [id number] Care Team Providers Care Batterboard Setter Name Role Phone Shauna Almanzar Primary Care Provider Emir Berger Unavailable [phone] Allergies Allergen (clinical drug ingredient) Drug/Non Drug [...] Problem Status W/U Status Risk Notes Problem [id number] Type 2 diabetes mellitus with hyperglycemia (E11.65) Active confirmed Problem 012712019 prison (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 (Z79.4) Active confirmed Vital Signs Blood pressure systolic 110 mm Hg 02/12/20 25 Blood pressure diastolic 62 mm Hg 025 Heart Rate 100 /min 02/11/2025 Height 65 in 02/11/2025 Weight 117.4 lbs 02/11/2025 BMI 19.53 kg/m2 02/11/2025 Encounters Encounter Location Date Provider Diagnosis [facility] [address] [facility] [address] [place] [id number] 02/11/2025 Emir Berger Type 2 diabetes aquilino itus with hyperglycemia E11.65 ; roasterman (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.4 ; Gross hematuria R31.0 and Body mass index (BMI) of 19.0 to 19.9 in adult Z68.1 Assessments Encounter Date Diagnosis (ICD Code) Assessment Notes Treatment Notes Treatment Clinical Notes Section Notes 02/11/2025 Type 2 diabetes mellitus with hyperglycemia (ICD-10 - E11.65) Patient needs to resume use of his CGM 02/11/2025 prison (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 (ICD-10 - Z79.4) [...] [address], [address], [place], [place], [phone], Provider Name:Shauna Beatty [place] er, 07/06/2025 03:34:00 PM, [address], [address], [place], [place], [phone], Progress Notes * HERMILA GOLDENOB: [birth year] (75 yo M)Acc No.[id number]:02/11/2025 Progress Notes Patient: HERMILA BUCIO Provider: Jaden Berger M.D. :1950 A ge:74 Y S ex:Male Date:02/11/2025 Address:[address] [place] [address], [facility] Pcp:Shauna Almanzar Subjective: * Chief [...] fasting glucose, Gets yearly eye exams, [facility], Questionable Dx Lupus erythematosus 2015, Granuloma [...] Three times a day , Discontinued Nystatin 642440 UNIT/ML Suspension 5 ml Mouth/Throat Twice a [...] prn * Billing Information: * Visit Code: 72455 Office Visit, Est Pt., Level 4. * Procedure Codes: G2211 Complex e/m visit add on. G8752 MOST RECENT SYSTOLIC BP < 140MM HG. G8754 MOST RECENT DIASTOLIC BP < 90MM HG. * Electronic signature of Elidia Berger MD on 04/27/2025 at 11:36 AM EDT Sign off status: Pending * Provider: Jaden Berger M.D. Date: 0 02/11/2025 Generated for Marissa mendoaz/Rei/Khurramitting on: 0 04/27/2025 11:36 AM EDT History and Physical Notes * [...]
--- OUTSIDE RECORDS SUMMARY | 2025-03-13 10:15 | XMS_ITS ---
Author Organization [facility] Address 1210 [facility] [address] [id number] Care Team Providers Care Hat And Cap Parts Cutter Hand Name Role Phone Shauna Almanzar Primary Care Provider [phone] Doretha Burns Unavailable [phone] Allergies Allergen (clinical drug ingredient) Drug/Non Drug Allergy documented on EMR Reaction Allergy Type Onset Date Status cephalexin Cephalexin Unknown Drug Allergy Activ e REASON FOR VISIT face is swollen per Alyssa at [facility], possible interaction with budesonide and itraconazole Medications Medication SIG (Take, Route, Frequency, Duration) Notes Start Date End Date Status Budesonide 3 MG 3 capsules Orally at bedtime Active metFORMIN HCl 500 MG 1 tablet with a igor l Orally Twice a day Active Cholecalciferol 25 MCG (1000 UT) 1 capsule Orally Once a day for 30 day(s) Active Ursodiol 500 MG 1 tablet Orally twic e a day Active Mycophenolate Mofetil 500 MG 1 tablet Orally Twice a day for 30 day(s) Active HumaLOG Mix 75/25 (75-25) 100 UNIT/ML 26 units subcutaneously three times a day ac Active Ipratropium-Albuterol 0.5-2.5 (3) MG/3ML 3 mL as needed Inhalation every 6 hrs Active Ezetimibe 10 mg TAKE ONE TABLET BY MOUTH EVERY DAY for 30 Active Warfarin Sodium 6 MG 1 tablet Orally Onc e a day for 30 day(s) Active Itraconazole 100 MG 1 capsule after a me al Orally Once a day for 10 day(s) Not-Taking Levothyroxine Sodium 50 mcg TAKE ONE TABLET BY MOUTH EVERY MORNING ON AN EMPTY STOMACH for 90 Active Mirtazapine 15 mg TAKE ONE TABLET BY MOUTH EVERY DAY AT BEDTIME for 30 Active Pravastatin Sodium 20 mg TAKE ONE TABLET BY MOUTH EVERY DAY for 30 Active Jardiance 10 mg 1 tablet Orally ever y other day for 90 days Active Vital Signs Blood pressure systolic 128 mm Hg 03/13/20 25 Blood pressure diastolic 60 mm Hg 025 Heart Rate 87 /min 03/13/2025 Height 65 in 03/13/2025 Weight 127.4 lbs 03/13/2025 BMI 21.2 kg/m2 03/13/2025 Encounters Encounter Location Date Provider Diagnosis [facility] [address] [place], [place] [id number] 03/13/2025 Doretha Burns Drug interaction Z78 .9 [...] with GI, Reason: Provider Name:Shauna Merida er, 04/30/2025 02:00:00 PM, [address] [facility], [address], [place], [phone], Provider Name:Shauna fofana, 07/06/2025 03:34:00 PM, [address] [facility], [address], [place], [place], [phone], Progress Notes * HERMILA GOLDENOB: [birth year] (75 yo M)Acc No.[id number]:03/13/2025 Progress Notes Patient: HERMILA BUCIO BENJIE Provider: LUCIA Davis:1950 A ge:74 Y S ex:Male Date:03/13/2025 Address:[address] [facility] [address], [place] , [id number] Pcp:Shauna Almanzar Subjective: * Chief Complaints: * 1 . face is swollen per Alyssa at [facility], possible interaction with budesonide and [...] fasting glucose, Gets yearly eye exams, 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 Chest: n ormal shape and expansion. Heart: R SR. Lungs: c lear to auscultation. Skin: c heeks are both swollen, no erythema, no tenderness.? Assessment: * Assessment: 1. D rug interaction - Z78.9 (Primary) Plan: * Treatment: * Procedure Codes: G 2211 Complex e/m visit add on * Follow Up: w ith GI * Billing Information: * Visit Code: 39830 Office Visit, Est Pt., Level 3. * Procedure Codes: G2211 Complex e/m visit add on. * Electronic signature of LUCIA Dean on 04/27/2025 at 11:35 AM EDT Sign off status: Pending * Provider: LUCIA Davis Date: 0 03/13/2025 Generated for Marissa mendoza/Rei/eTransmitting on: 0 04/27/2025 11:35 AM EDT History and Physical Notes * [...]
--- OUTSIDE RECORDS SUMMARY | 2025-04-02 10:15 | XMS_ITS ---
Author Organization [facility] Address 1210 [facility] [address] [id number] Care Team Providers Care Onyx Chip Terrazzo Worker Name Role Phone Shauna Almanzar Primary Care Provider Allergies Allergen (clinical drug ingredient) Drug/Non Drug Allergy documented on EMR Reaction Allergy Type Onset Date Status cephalexin Cephalexin Unknown Drug Allergy Activ e Results Component Value Reference Range Notes P-Comprehensive Metabolic Pa tarah (CMP) (Not yet reviewed by provider) Interpretation:gluc 347, bun 29, Ca 8.5, prot 5.5 Performing Lab: Notes/Report: CLIA: [id number] Kristian Trevino MD, Field Kiln Burner [facility]0 [facility] , [address], [place] [address] Test performed by [employer], [facility] Sodium 139 135-145 mmol/L Potassium 3.7 3.5-5.3 [...] 695 Performing Lab: Notes/Report: Test performed by [employer] [address] [place] [address] , [address], [place] [address] Kristian Trevino MD, Field Kiln Burner CLIA: [id number] Albumin/Creatinine Ratio, Urine 695 0-30 ug/m g [...] 04/02/2025 Encounters Encounter Location Date Provider Diagnosis [facility] [address] [place], [place] [id number] 04/02/2025 Shauna Almanzar Type 2 diabetes aquilino itus without complication E11.9 ; 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 ; Cholestatic hepatitis K75.89 ; care home (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.4 ; 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 ; Generalized weakness R53.1 and BMI 20.0-20.9, adult Z68.20 Assessments Encounter Date Diagnosis (ICD Code) Assessment Notes Treatment Notes Treatment Clinical Notes Section Notes 04/02/2025 Type 2 diabetes mellitus without complication (ICD-10 - E11.9) 04/02/2025 Adrenal abnormality (ICD-10 - E27.9) 04/02/2025 Cholestatic hepatitis (ICD-10 - K75.89) 04/02/2025 care home (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 (ICD-10 - [...] Name:Shauna Merida er, 04/30/2025 02:00:00 PM, 12[address] [facility] 36 [address], [address], [place], [id number], Provider Name:Shauna Merida er, 07/06/2025 03:34:00 PM, 12[address] [facility] 36 [address], [address], [place], [id number], Progress Notes * HERMILA GOLDENOB: [birth year] (75 yo M)Acc No.[id number]:04/02/2025 Progress Notes Patient: HERMILA BUCIO Provider: Shauna Almanzar M.D. :1950 A ge:75 Y S ex:Male Date:04/02/2025 Address:[address] [place] [address], [facility] Subjective: * Chief Complaints: * 1 . 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 B SD 20.0-20.9, adult - Z68.20? Plan: * Treatment: [...] G 2211 Complex e/[place], [address] GLYCATED HEMOGLOBIN TEST, Modifiers: QW , G8752 [...] Weeks * Billing Information: * Visit Code: 23290 Office Visit, Est Pt., Level 4. * Procedure Codes: G2211 Complex e/[place]. [address] GLYCATED HEMOGLOBIN TEST. Modifiers: QW G8752 MOST RECENT SYSTOLIC BP < 140MM HG. G8754 MOST RECENT DIASTOLIC BP < 90MM HG. 3046F HEMOGLOBIN A1C LEVEL > 9.0%. G8420 BMI<30 AND >=22 CALC & DOCU. 1036F TOBACCO NON-USER. 3017F COLORECTAL CA SCREEN DOC REV. * Electronic signature of Shauna Almanzar MD on 04/27/2025 at 11:36 AM EDT Sign off status: Pending * Provider: Shauna Almanzar M.D. Date: 0 04/02/2025 Generated for Mairssa mendoza/Rei/Khurramitting on: 0 04/27/2025 11:36 AM EDT History [...]
--- OUTSIDE RECORDS SUMMARY | 2025-04-17 10:26 | XMS_ITS ---
Author Organization [facility] Address [address] [place] [address] [place] [address] Phone Care Team Providers Care Bridge Crane Operator Name Role Phone Sukumar CUEVAS, Rocky Griggs [ ] Conditions or Problems No information available. Medications Medication Instructions Start Date Stop Date Generic Name [facility] Provider budesonide 3 mg by mouth as needed as directed budesonide [facility] EZETIMIBE 10 MG TABS 1 tablet by mouth once a day ezetimibe [id number] [facility] XARELTO 20 MG TABS rivaroxaban 63800631739 [facility] PRAVASTATIN SODIUM 20 MG TABS 1 tablet by mouth once a day pravastatin 30193574967 [facility] aspirin 81 mg capsule 1 capsule by mouth once a day aspirin [facility] Medications Administered No information available. Allergies, Adverse Reactions, Alerts No information available. Results Date Name Value Unit Range Flag Description Office Visit: Office Visit: 11 SMOK STATUS Former smoker Tob acco smoking status MEDS REVIEW Done Documenta tion of current medications (procedure) Plan of Care Type Date Detail Appointment 11:00 AM Rocky Patino MD, [address] [facility], [address], [place], [address], Pending order CMP Pending order CBC with [...]
--- OUTSIDE RECORDS SUMMARY | 2025-04-27 11:35 | XMS_ITS | Clinical Summary ---
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 Active 01/09 Echo Mccurdy 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/09 Active 01/09 Echo Mccurdy Acute pulmonary histoplasmosis capsulati Medications Medication Instructions Start Date Stop Date Generic Name [facility] Provider budesonide 3 mg by mouth as needed as directed budesonide [facility] EZETIMIBE 10 MG TABS 1 tablet by mouth once a day ezetimibe 55395790906 [facility] XARELTO 20 MG TABS rivaroxaban 45080246280 [facility] PRAVASTATIN SODIUM 20 MG TABS 1 tablet by mouth once a day pravastatin 07074844158 [facility] aspirin 81 mg capsule 1 capsule by mouth once a day aspirin [facility] ITRACONAZOLE 100 MG CAPS Take 2 capsule by mouth twice a day itraconazole 18758918533 [facility] ITRACONAZOLE 100 MG CAPS TAKE TWO CAPSULES BY MOUTH TWICE DAILY itraconazole 98382056762 Rocky Patino MD IPRATROPIUM-ALBU TEROL 0.5-2.5 (3) MG/3ML SOLN ipratropium-albut [place] 01516447943 [facility] JARDIANCE 10 MG TABS 1 tablet by mouth once a day empagliflozin 04444828671 [facility] ITRACONAZOLE 100 MG CAPS Take 2 capsule by mouth twice a day itraconazole 90112579834 Rocky Patino MD XARELTO 20 MG TABS rivaroxaban 03435712269 [facility] aspirin 81 mg capsule 1 capsule by mouth once a day aspirin [facility] budesonide 9 mg by mouth as needed as directed budesonide [facility] VITAMIN D 25 MCG (1000 UT) TABS 1 tablet by mouth once a day cholecalciferol (vitamin d3) 35051171874 [facility] JARDIANCE 10 MG TABS 1 tablet by mouth once a day empagliflozin 93636332734 [facility] EZETIMIBE 10 MG TABS 1 tablet by mouth once a day ezetimibe 34559574528 [facility] insulin lispro protamine-lispro 100 unit/mL (75-25) subcutaneous susp insulin lispro protamin-lispro [facility] IPRATROPIUM-ALBU TEROL 0.5-2.5 (3) MG/3ML SOLN ipratropium-albut [place] 63584112602 [facility] LEVOTHYROXINE SODIUM 50 MCG TABS 1 tablet by mouth once a day levothyroxine 57332151645 [facility] METFORMIN HCL 500 MG TABS 1 tablet by mouth once a day metformin 06487647958 [facility] MIRTAZAPINE 15 MG TABS 1 tablet by mouth once a day mirtazapine 92035348083 [facility] MYCOPHENOLATE MOFETIL 500 MG TABS 1 tablet by mouth twice a day mycophenolate mofetil 94296194886 [facility] PRAVASTATIN SODIUM 20 MG TABS 1 tablet by mouth once a day pravastatin 38883620331 [facility] URSODIOL 500 MG TABS 1 tablet by mouth twice a day ursodiol 72721403208 [facility] Medications Administered No information available. 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 yes Fall ris k assessment Lab [...] Detail Appointment 11:00 AM Rocky Patino MD, [facility], [address], [place], [address], Pending order CMP Pending order CBC with [...] (G221) CPT-Cooral Continue oral antibiotics 20 27/02/11 CPT-47465 CMP [id number] CBC with Differential 2024 CPT-67738 Itraconazole Level 1 CPT-74299 BNP CPT-elizabeth New Oral Antibiotic CPT-58370 CMP [id number] CBC with Differential 2024 CPT-10242 CD4 91409 Fungitell, serum (1-3) D-Glucan Assay 03/07/12 CPT-91933 Urine Culture & Sensitivity [id number], [id number] Urinalysis CPT-cf Fungal Culture & Sensitivity CPT-61230 BNP Vital Signs Date Name Value Unit [...]
--- OUTSIDE RECORDS SUMMARY | 2025-04-27 11:37 | XMS_ITS | Clinical Summary ---
Author Organization [facility] Address [address] [place] [address] Care Team Providers Care Manager Transmission Name Role Phone Rocky Almanzar MD Primary Care Provider [phone] Allergies Active Allergy Reactions Criticality Noted Date [...] Encounters Date Type Department Care Team Description 04/24/2025 Telephone [facility] Diabetes Education [address] [place] [address] Rocky Almanzar MD HCN - Patient Message 02/09/2025 Telephone [facility] Endocrinology [address] [place] [address] Jason Romero MD from Last [...] Visit [facility] [address] [place] [address] Melany Rosales, DO [address] [place] [address] 01/05/2026 11:00 AM EST Office Visit [facility] [place] [address], [address] [place] [address] Vivian Macias, OD [address] [place] [address] Health Maintenance Due Date Last [...] A1C 03/17/202509/2025, 05/23/2024, 11/22/2023, Additional history exists [id number] Vaccine (7 - Moderna risk 2023- season) [...] this topic Medical Devices Implanted Type Area Fabrication Inspector Device Identifier Shelf Expiration Date Model / Serial / Lot Roseline Stanleyk Advantage Ci Hifocus 1j Electrode--06/05 Implanted:06/05 by Ky Del Rio MD (Quantity not on file) Cochlear Left: Ear Advanced Natural Convergence [id number] / [id number] / Description:Roseline 90K Advant age CI HiFocus 1J electrode--cochlear implant by Dr. Del Rio at [facility] on 06/21/2017, operative note in Epic. LEFT EAR. Roseline ULTRA 3D Cochlear implant REF: [id number] Serial number: [id number] Procedures Procedure Name Priority Date/Time Associated Diagnosis [...] % [facility] Kit Lot Number [id number] [facility] Kit Expiration Date 10/04/26 HEALTHCARE [facility] Blood Venous blood specimen / Unknown 12/16/2024 12:27 PM EST Jason Romero MD POINT OF CARE TEST ENTER/ED IT ORDERABLES Final Result [facility] [address] [place] [address] * COLONOSCOPY (08/03/2017) Anatomical Region Laterality Modality Endoscopy Narrative 08/03/2017 Ordered by an unspecified provider. Elvis Groves MD GI PROCEDURE ORDERABLES F inal Result * Hepatitis C Antibody (08/15/2016 10:05 AM EDT) Pathologist [facility] Hepatitis C Antibody NEGATIVE Reference Range: Negative SUNQUEST 08/15/2016 10:0 5 AM EDT 08/15/2016 11:43 AM EDT Pavan Joseph MD LAB BLOOD ORDERABLES Final Re sult Performing Organization Address City/State/[facility] Co de Phone Number SUNQUEST from Last 3 Months or Most Recently Relevant to Health Maintenance Additional Health Concerns Infection Onset Date Last Indicated MRSA 03/30/2021 03/30/2021 Insurance [facility] MEDICARE EYEMED Care Teams Manager Transmission Relationship Specialty Start Date End Date Rocky Almanzar MD [address] [place] [address] PCP - General 03/18/21
--- OUTSIDE RECORDS SUMMARY | 2025-04-27 11:37 | XMS_ITS | Encounter Summary ---
Author Organization [facility] Address [address] [place] [address] Care Team Providers Care Tai Chi Instructor Name Role Phone Rocky Almanzar MD Primary Care Provider [phone] Reason for Visit * Reason Comments Med Refill Encounter Details Date Type Department Care Team (Late Contact Info) Description 11/10/2021 Refill [facility] [address] [place] [address] Jason Romero MD [address] [address] Type 2 diabetes mellitus with other specified complication, with long-term current use of insulin ([facility]) Social History Tobacco Use [...] Visit [facility] [address] [place] [phone] Melany Rosales DO [address] [place] [address] 01/05/2026 11:00 AM EST Office Visit [facility] [place] [address], [address] [place] [address] Vivian Macias S, OD [address] [facility] [address] [place] [address] documented as of this encounter Visit Diagnoses Diagnosis Type 2 diabetes mellitus with other specified complication, with long-term current use of insulin ([facility]) documented in this encounter Additional Health Concerns Infection Onset Date Last Indicated Resolved Time MRSA 03/30/2021 03/30/2021 Assessment Noted Time A fall risk assessment has been complete d for the patient 10/11/2021 3:35 PM EST documented as of this encounter Care Teams Tai Chi Instructor Relationship Specialty Start Date End Date Rocky Almanzar MD [address] [place] [address] PCP - General 03/18/21 documented as of this encounter
--- OUTSIDE RECORDS SUMMARY | 2025-04-27 11:37 | XMS_ITS | Encounter Summary ---
Author Organization [facility] Address [address] [place] [address] Care Team Providers Care Administrative Assistant Receptionist Name Role Phone Rocky Almanzar MD Primary Care Provider [phone] Reason for Visit * Reason Comments Med Refill Encounter Details Date Type Department Care Team (Late Contact Info) Description 05/20/2021 Refill [facility] Endocrinology [address] [place] [address] Jason Romero MD [address] [address] Social History Tobacco Use Types [...] Description 07/07/2025 11:40 AM EDT [facility] [address] [place] [address] Melany Rosales, DO [address] [place] [address] 01/05/2026 11:00 AM EST Office Visit [facility] [place] [address] [place] [address] Vivian Macias S, OD [address] [place] [address] documented as of this encounter Visit Diagnoses Not on filedocumented in this encounter Additional Health Concerns Infection Onset Date Last Indicated Resolved Time MRSA 03/30/2021 03/30/2021 documented as of this encounter Care Teams Administrative Assistant Receptionist Relationship Specialty Start Date End Date Rocky Almanzar MD [address] [place] [address] PCP - General 03/18/21 documented as of this encounter
--- OUTSIDE RECORDS SUMMARY | 2025-04-27 11:37 | XMS_ITS | Encounter Summary ---
Author Organization [facility] Address [address] [place] [address] Care Team Providers Care Pot Fluxer Name Role Phone Rocky Almanzar MD Primary Care Provider [phone] Reason for Visit * Reason Onset Date Comments HCN - Patient Message 04/24/2025 Encounter Details Date Type Department Care Team (Late st Contact Info) Description 04/24/2025 Telephone [facility] Diabetes Education [address] [place] [phone] Rocky Almanzar MD [address] [facility] [address] [place] [address] HCN - Patient Message Social History Tobacco Use Types Packs/Day Years Used Date Smoking Tobacco: Former Cigarettes 1.5 15 0 11/05/1989 - 11/05/2004 Passive Smoke Exposure: Past Smokeless Tobacco: Never Alcohol Use Standard Drinks/Week Comments Yes 1 (1 standard drink = 0.6 oz pure alcohol) Alcoholic Drinks/day: Consumes alcohol occasionally Sex and Gender Information Value Date Recorded Sex Assigned at Not on file Legal Sex Male 7:34 PM EDT Gender Identity Not on file Sexual Orientation Not on file documented as of this encounter Miscellaneous Notes * Telephone Encounter - China Seaman - 04/24/2025 9:51 AM EDT Tried to call pt back. VM is full and can no longer accept messages * Telephone Encounter - Prince February - 04/24/2025 8:23 AM EDT Clinical Concern/Question Reason for Call: Patient left message that he is almost out of his sensors/patches and needs refill. Please contact patient Best contact number: [phone] (home) Optimal time of day to reach caller: Anytime Additional comments/information from caller: n/a Note: Please do not reply to this message. Follow-up communication and further actions as a result of this message need to be communicated with the patient directly, if the patient is not active onMyChart. If the patient is active on MyChart, they will receive notification of the communication/outcome via [employer]. documented in this encounter Plan of Treatment Upcoming Encounters Date Type Department Care Team (Late st Contact Info) Description 07/07/2025 11:40 AM EDT Office Visit [facility] Endocrinology [address] [place] [address] Melany Rosales, DO [address] [facility] [address] [place] [address] 01/05/2026 11:00 AM EST Office Visit [facility] [address], [address] [place] [address] Vivian Macias S, OD [address] [place] [address] documented as of this encounter Visit Diagnoses Not on filedocumented in this encounter Additional Health Concerns Infection Onset Date Last Indicated Resolved Time MRSA 03/30/2021 03/30/2021 Assessment Noted Time A fall risk assessment has been complete d for the patient 12/16/2024 12:16 PM EST A Body Mass Index follow-up plan has been documented for the patient 01/13/2025 8:11 PM EDT documented as of this encounter Care Teams Pot Fluxer Relationship Specialty Start Date End Date Rocky Almanzar MD [address] [place] [address] PCP - General 03/18/21 documented as of this encounter
--- OUTSIDE RECORDS SUMMARY | 2025-04-27 11:37 | XMS_ITS | Patient Health Record ---
Author Organization [facility] Address [address] [facility] [address] [id number] Care Team Providers Care Carton Catcher Name Role Phone Shauna Almanzar Primary Care Provider Emir Berger Unavailable [phone] Trinity Medeiros Unavailable [phone] Doretha Burns Unavailable [phone] Allergies Allergen (clinical drug ingredient) Drug/Non Drug Allergy documented on EMR Reaction Allergy Type Onset Date Status cephalexin Cephalexin Unknown Drug Allergy Activ e Results Component Value Reference Range Notes P-Comprehensive Metabolic Pa tarah (CMP) (Not yet reviewed by provider) Interpretation:gluc 347, bun 29, Ca 8.5, prot 5.5 Performing Lab: Notes/Report: Test performed by [facility] [address] [place] [address] , [address], [place] [address] Kristian Trevino MD, Source [employer] Protection Specialist CLIA: [id number] Sodium 139 135-145 mmol/L Potassium 3.7 3.5-5.3 [...] 695 Performing Lab: Notes/Report: Test performed by [facility], [facility] , [address], [place] [address] Kristian Trevino MD, Source Water Protection Specialist CLIA: [id number] Albumin/Creatinine Ratio, Urine 695 0-30 ug/mg Microalbumin, Urine, Random 16.4 Creatinine, Urine 23.6 Glycohemoglobin A1c (in hous e) Reviewed date:04/03/2025 09:15:19 AM Interpretation:11 Performing Lab: Notes/Report: 11 glycohemoglobin 11.1% 5 - 6.5 % CXR Reviewed date:11/04/2024 09:39:36 AM Interpretation:chronic findings, nothing new Performing Lab: Notes/Report: chronic findings, nothing new H-CBC Reviewed date:11/04/2024 10:00:59 AM Interpretation: Performing [...] 0.1 0.0-0.4 K/mm3 BA# 0.0 0-0.2 K/mm3 Ultrasound : Bladder scan Reviewed date:04/20/2025 10:25:30 AM Interpretation:does not want Performing Lab: Notes/Report: does not want Urinalysis - Inhouse Reviewed date:01/18/2025 02:07:53 PM Interpretation: Performing Lab: Notes/Report: Color/Clarity red/cloudy Leuk Neg Nitrite Neg Urobili 3.2 Protein 2+ pH 5.5 Blood 3+ Sp. Gr. 1.015 Ketone Neg Bili 1+ Gluc 2+ P-Comprehensive Metabolic Pa tarah (CMP) Reviewed date:01/12/2025 11:34:53 AM Interpretation:gluc 144, bun 30, Cr 1.35, gfr 55, alk phos 229 Performing Lab: Notes/Report: CLIA: [id number] Kristian Trevino MD, Source Water Protection Specialist [address] [place] [address] , [address], [place] [address] Test performed by [facility], [facility] Sodium 138 135-145 mmol/L Potassium 4.3 3.5-5.3 [...] 1.015 Ketone Neg Bili Neg Gluc 2+ Glycohemoglobin A1c (in hous e) Reviewed date:10/10/2024 10:20:31 AM Interpretation: Performing Lab: Notes/Report: glycohemoglobin 7.7% 5 - 6.5 % H-CBC Reviewed date:08/26/2024 02:54:53 PM Interpretation: Performing Lab: Notes/Report: WBC 5.9 4.8-10.8 K/mm3 Delta: 4.4 on 08/25/24-2251 RBC 4.07 4.60-6.20 M/mm3 HGB 12.7 14.1-18.0 [...] GLU 148 74-100 mg/dl Delta: 121 on 08/25/24 CA 8.3 8.4-10.2 mg/dl H-BMP Reviewed date:09/15/2024 10:12:19 AM Interpretation:bun 25, [...] 242 74-100 mg/dl CA 8.4 8.4-10.2 mg/dl H-BMP Reviewed date:09/08/2024 11:20:09 AM Interpretation:cl 109, co2 21, bun 25, knh907 Performing Lab: Notes/Report: NA 137 136-145 mmol/L K 3.8 3.5-5.1 mmoL/L CL 109 98-107 mmol/L CO2 21 22.0-30.0 mmol/L GAP 10.8 5-15 mEq/L BUN 25 9-20 mg/dl CREATT 1.20 0.66-1.25 mg/dl GFRAA 72 >60 ML/MIN EGFR 59 >60 ml/min GLU 380 74-100 mg/dl CA 9.0 8.4-10.2 mg/dl Rapid Strep- Inhouse Reviewed date:09/16/2024 01:23:25 PM Interpretation:Positive Performing Lab: Notes/Report: Positive strep test Pos H-TSH Reviewed date:11/13/2024 01:33:09 PM Interpretation:Normal Performing Lab: Notes/Report: TSH 3.05 0.465-4.68 uIU/mL Medications Medication SIG (Take, Route, Frequency, Duration) [...] Status W/U Status Risk Notes Problem Essential (primary) hypertension (I10) Active confirmed Problem 57471905 Vitamin D deficiency (E55.9) Active confirmed Problem 36524939 Essential hypertension (I10) Active confirmed Problem 170083404 Prostate cancer screening (Z12.5) Active confirmed Problem 212687109 Paroxysmal atria l fibrillation (I48.0) Active confirmed Problem 489229480308753 Type 2 diabetes mellitus with hyperglycemia (E11.65) Active confirmed Problem 152000909 Mixed hyperlipidemia (E78.2) Active confirmed Problem Hyperlipidemia (45723985) Hyperlipidemia, unspecified (E78.5) Active confirmed Problem 30976343 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) Active confirmed Problem 873552548 Chronic respiratory failure with hypoxia (J96.11) Active confirmed Problem 819979266 Autoimmune hepatitis (K75.4) Active confirmed Problem 613969740 Calculus of gallbladder without cholecystitis without obstruction (K80.20) Active confirmed Problem 881709615 Cochlear implant status (Z96.21) Active confirmed Problem 051950265 Male erectile disorder (N52.9) Active confirmed Problem 728018387 penitentiary (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 (Z79.4) Active confirmed Problem 69821096 Type 2 diabetes mellitus without complication (E11.9) Active confirmed Problem 790742210 Acquired hypothyroidism (E03.9) Active confirmed Problem 99187672 Pulmonary fibros is (J84.10) Active confirmed Problem 88768461 Chronic fatigue (R53.82) Active confirmed Problem 34052168 Chronic obstructive pulmonary disease, unspecified COPD type (J44.9) Active confirmed Problem 854473231 Pneumonia of rig ht lower lobe due to infectious organism (J18.9) Active confirmed Problem 73037598 Hearing loss, bilateral (H91.93) Active confirmed Problem 91235228 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) Active confirmed Problem 809720707 Neutropenia, unspecified type (D70.9) Active confirmed Problem 921411179 Interstitial boy g disease (J84.9) Active confirmed Problem 931328063 Seasonal allergi c rhinitis, unspecified allergic rhinitis trigger (J30.2) Active confirmed Problem 056140199 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 confirmed Problem 82203449 Lupus (systemic lupus erythematosus) (M32.9) Active confirmed Problem 289942485 Caloric malnutrition (E46) Active confirmed Problem 514572735 BPH without urinary obstruction (N40.0) Active confirmed Problem 33472260 Acute seasonal allergic rhinitis due to pollen (J30.1) Active confirmed Problem 966486593 Sensorineural hearing loss (SNHL) of both ears (H90.3) Active confirmed Problem 05520282 Cholestatic hepatitis (K75.89) Active confirmed Problem 17111463 Sensitive skin (R20.3) Active confirmed Problem 85040050 Dilatation of aorta (I77.819) Active confirmed Problem 36734946617971414 Abnormal CT sc an, chest (R93.89) Active confirmed Problem Left atrial dilatation (661037920) Left atrial dilatation (I51.7) Active confirmed Problem 196558320 Protein malnutrition (E46) Active confirmed Vital Signs Heart Rate 92 /min 04/02/2025 Blood pressure diastolic 60 mm Hg 04/02/2025 Height 65 in 04/02/2025 Blood pressure systolic 110 mm Hg 04/02/2025 Weight 123.0 lbs 04/02/2025 BMI 20.47 kg/m2 04/02/2025 Encounters Encounter Location Date Provider Diagnosis [facility] [address] [facility] [address] [place], [place] [address], [place] [id number] 05/26/2024 Shauna Almanzar Interstitial lung disease J84.9 ; Chronic fatigue R53.82 ; Chronic respiratory failure with hypoxia J96.11 and Acquired hypothyroidism E03.9 [facility] [address] [facility] [address] [place], [place] [id number] 09/05/2024 Shauna Almanzar Pneumonia of left lo wer lobe due to infectious organism J18.9 ; Interstitial lung disease J84.9 ; Chronic respiratory failure with hypoxia J96.11 ; 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 ; Autoimmune hepatitis K75.4 ; Protein malnutrition E46 and Caloric malnutrition E46 [facility] [address] [facility] [address] [place], [place] [id number] 09/16/2024 Trinity Medeiros Strep pharyngitis J0 2.0 and Oral candidiasis B37.0 [facility] [address] [facility] [address] [id number] 10/09/2024 Shauna Almanzar Lesion of adrenal gl and E27.9 ; Essential hypertension I10 ; Type 2 diabetes mellitus without complication E11.9 ; Acquired hypothyroidism E03.9 ; Hearing loss, bilateral H91.93 ; Cochlear implant status Z96.21 ; Protein malnutrition E46 ; Chronic obstructive pulmonary disease, unspecified COPD type J44.9 and Encounter for immunization Z23 [facility] [address] [facility] [address] [id number] 11/03/2024 Emir [place] Acute cough R05.1 [facility] [address] [facility] [address], [place] [id number] 11/07/2024 Shauna Almanzar Type 2 diabetes aquilino itus without complication E11.9 ; Acquired hypothyroidism E03.9 and Hereditary hemochromatosis E83.110 [facility] [address] [facility] [address] [place], [place] [id number] 01/09/2025 Shauna Almanzar Type 2 diabetes aquilino itus without complication E11.9 ; Hereditary hemochromatosis E83.110 ; Cochlear implant status Z96.21 ; Chronic obstructive pulmonary disease, unspecified COPD type J44.9 ; Essential (primary) hypertension I10 ; Protein malnutrition E46 and Gross hematuria R31.0 [facility] [address] [facility] [address] [place], [place] [id number] 01/15/2025 Shauna Almanzar Interstitial lung disease J84.9 ; 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 ; Autoimmune hepatitis K75.4 ; Protein malnutrition E46 ; Cochlear implant status Z96.21 ; Type 2 diabetes mellitus without complication E11.9 and Hematuria R31.9 [facility] [address] [facility] [address] [place], [place] [id number] 02/11/2025 Emir Berger Type 2 diabetes aquilino itus with hyperglycemia E11.65 ; penitentiary (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.4 ; Gross hematuria R31.0 and Body mass index (BMI) of 19.0 to 19.9 in adult Z68.1 [facility] [address] [facility] [address] [place] [id number] 03/13/2025 Doretha Katy Drug interaction Z78 .9 [facility] [address] [facility] [address] [place], [place] [id number] 04/02/2025 Shauna Almanzar Type 2 diabetes aquilino itus without complication E11.9 ; 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 ; Cholestatic hepatitis K75.89 ; penitentiary (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.4 ; 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 ; Generalized weakness R53.1 and BMI 20.0-20.9, adult Z68.20 [facility] [address] [facility] [address] [place], [place] [id number] 05/01/2024 Shauna Almanzar Type 2 diabetes aquilino itus without complication E11.9 [facility] [address] [facility] [address] [place] [id number] 06/04/2024 Shauna Almanzar [facility] [address] [facility] [address] [place] [id number] 09/01/2024 Shauna Almanzar [facility] [address] [place], [place] [id number] 09/04/2024 Shauna Almanzar [facility] [address] [place] [id number] 09/08/2024 Shauna Almanzar [facility] [address] [facility] [address] [place] [id number] 09/10/2024 Shauna Almanzar [facility] [address] [facility] [address] [place] [id number] 09/15/2024 Shauna Almanzar [facility] [address] [place], [place] [id number] 09/16/2024 Shauna Almanzar [facility] [address] [place], [place] [id number] 09/25/2024 Shauna Almanzar [facility] [address] [place], [place] [id number] 11/03/2024 Emir Berger [facility] [address] [place], [place] [id number] 01/12/2025 Shauna Almanzar Assessments Encounter Date Diagnosis [...] 11/07/2024 Acquired hypothyroidism (ICD-10 - E03.9) 01/09/2025 Hereditary hemochromatosis (ICD-10 - E83.110) 01/09/2025 Type 2 diabetes mellitus without complication (ICD-10 - E11.9) 01/15/2025 Adrenal abnormality (ICD-10 - E27.9) 01/15/2025 Interstitial lung disease (ICD-10 - J84.9) 02/11/2025 Type 2 diabetes mellitus with hyperglycemia (ICD-10 - E11.65) Patient needs to resume use of his CGM 02/11/2025 [employer] customer service (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 (ICD-10 - Z79.4) [...] E11.9) 04/02/2025 Adrenal abnormality (ICD-10 - E27.9) 02/11/2025 Gross hematuria (ICD-10 - R31.0) Plan follow up with Dr. Lund soon, after he sees ID and GI in the next week 01/09/2025 Cochlear implant status (ICD-10 - Z96.21) 01/15/2025 Autoimmune hepatitis (ICD-10 - K75.4) 11/07/2024 [...] 04/02/2025 Cholestatic hepatitis (ICD-10 - K75.89) 04/02/2025 penitentiary (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 (ICD-10 - Z79.4) 01/15/2025 Cochlear implant status (ICD-10 - Z96.21) 01/09/2025 Essential (primary) hypertension (ICD-10 - I10) 10/09/2024 Hearing loss, bilateral (ICD-10 - H91.93) 09/05/2024 Autoimmune hepatitis (ICD-10 - K75.4) 09/05/2024 Protein malnutrition (ICD-10 - E46) 01/09/2025 Protein malnutrition (ICD-10 - E46) 01/15/2025 Type 2 diabetes mellitus without complication (ICD-10 - E11.9) 10/09/2024 Cochlear implant status (ICD-10 - Z96.21) 04/02/2025 Histoplasmosis (ICD-10 - B39.9) 04/02/2025 Generalized [...] [address], [place], [id number], Provider Name:Shauna Merida er, 07/06/2025 03:34:00 PM, [address], [place], [id number], Insurance Providers Payer Name Payer Address Payer Phone Subscriber Number Group Number Insured Name Patient Relationship to Insured Coverage Start Date Coverage End Date [facility] [address] [address] [place] [address] [phone] [id number] HERMILA GOLDEN Self - patient is the insured Medical (General) History Medical History History ICD Code Seasonal Allergies Kidney Stones Steatohepatitis hemachromatosis,(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 Smalls and Dr. Thakur Atrial dysrrhythmia, see notes 2011 hearing loss 2013, hearing aids Impaired fasting glucose Gets yearly eye exams, [facility] Questionable Dx Lupus erythematosus 2016 Granuloma annulare [...]
[2025-04-27 11:49] LABS: PHA INR Fingerstick 1.7 (0.9-1.1)
[2025-04-27] MEDS: SODIUM CHLORIDE 0.9% 10ML SYR (RAD ONLY) 10 ML IV (12:36)
[2025-04-27] MEDS: 0.9 % SODIUM CHLORIDE 50 ML VIAL IV (12:36)
[2025-04-27] MEDS: IOPAMIDOL-370 (76%);100ML BOTTLE 80 ML IV (12:37)
--- NOTE | 2025-04-27 13:30 | CT_ITS ---
FINAL REPORT TECHNIQUE: Thin section axial images were obtained through the abdomen and pelvis after contrast injection per CT angiogram protocol. Multiplanar reconstruction images were obtained from the axial data. This exam was performed with techniques to keep radiation dose as low as reasonably achievable. This includes automated exposure control, adjustment of the MA and KVP, and iterative reconstruction technique. CLINICAL HISTORY: adrenal mass COMPARISON: 11/11/2019 FINDINGS: CTA: There is moderate plaque in the supraceliac portion of the aorta. There is a mild focal aneurysm in the infrarenal abdominal aorta, which measures up to 34 mm in size, without evidence of a dissection. The iliac vessels are tortuous and ectatic without evidence of significant stenosis. The renal arteries are widely patent. 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 The BARBI is patent. NONVASCULAR: The liver and spleen are unremarkable in appearance. Bilateral adrenal masses are again noted, the larger on the left measuring 32 x 31 mm in size, stable when compared to the prior exam. Moderate left hydronephrosis is identified. There are new proximal left ureteral stones measuring up to 3 mm in size. Cholelithiasis is present. There is no evidence of bowel obstruction. The appendix is not visualized. The bowel is unremarkable in the pelvis. The bladder and prostate are normal in appearance. IMPRESSION: 1. Focal infrarenal abdominal aortic aneurysm measuring up to 34 mm in diameter. 2. 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 3. There is moderate left hydronephrosis with new proximal left ureteral stones measuring up to 3 mm. 4. Cholelithiasis. 5. Bilateral adrenal masses are once again noted, stable when compared to the prior exam of 11/11/2024. Reviewed, Interpreted and Dictated by Shirley Rodriguez MD Transcribed by Sujatha Cook Authenticated and [facility]
--- NOTE | 2025-04-27 13:30 | CT_ITS ---
FINAL REPORT CLINICAL HISTORY: mural thrombus COMPARISON: 11/11/2024 FINDINGS: CTA CHEST WITH CONTRAST TECHNIQUE: Thin section axial CT with IV contrast supplemented with 3D reconstructed MIP images. This study was performed with techniques to keep radiation doses as low as reasonably achievable, (ALARA). Individualized dose reduction techniques using automated exposure control or adjustment of mA and/or kV according to the patient's size were employed. FINDINGS: Pulmonary vessels enhance in a normal fashion without evidence of embolic disease. Thoracic aorta is normal in caliber without evidence of aneurysm or dissection. There is diffuse moderate plaque in the aortic arch and descending aorta, with a scalloped appearance, which is stable since the prior CT of 11/11/2024. The most severe plaque is seen at the thoracoabdominal junction. The ascending aorta is relatively spared. No acute lung disease is present . Left lower lobe scar is present, with associated pleural thickening. There is evidence of old calcified granulomatous disease. No pleural or pericardial effusion is seen . No adenopathy or mass lesion is present . IMPRESSION: 1. Stable appearing plaque disease in the aortic arch and descending aorta, without evidence of aortic dissection. The ascending aorta is relatively spared. Reviewed, Interpreted and Dictated by Shirley Rodriguez MD Transcribed by Sujatha Cook Authenticated and [facility]
== END 2025-04-27 23:59 | disposition home or self-care (01) ==
LOC: ACC 11:26
PROVIDERS: PCP Family Medicine; Visit Provider Nurse Practitioner
DX: I70.0 Atherosclerosis of aorta (principal); I71.43 Infrarenal abdominal aortic aneurysm, without rupture; K55.1 Chronic vascular disorders of intestine; N13.2 Hydronephrosis with renal and ureteral calculous obstruction; K80.20 Calculus of gallbladder without cholecystitis without obstruction; E27.8 Other specified disorders of adrenal gland; I51.3 Intracardiac thrombosis, not elsewhere classified; I48.0 Paroxysmal atrial fibrillation
CPT/HCPCS: 71275; 74174; 85610; 99211; G0463; Q9967

== ENCOUNTER 2025-05-12 14:32 | Outpatient (CLI) | payer MEDICARE, SELFPAY ==
--- OUTSIDE RECORDS SUMMARY | 2025-03-13 10:15 | XMS_ITS ---
Author Organization [facility] Address 1210 [facility] [address] [id number] Care Team Providers Care Billing Control Clerk Name Role Phone Shauna Almanzar Primary Care Provider [phone] Doretha Burns Unavailable [phone] Allergies Allergen (clinical drug ingredient) Drug/Non Drug Allergy documented on EMR Reaction Allergy Type Onset Date Status cephalexin Cephalexin Unknown Drug Allergy Activ e REASON FOR VISIT face is swollen per Alyssa at [facility], possible interaction with budesonide and itraconazole [...] 03/13/2025 Encounters Encounter Location Date Provider Diagnosis [facility] [address] [place], [place] [phone] 03/13/2025 Doretha [place] Drug interaction Z78 .9 [...] Follow Up: with GI, Reason: Provider Name:Shauna fofana, 05/12/2025 02:24:00 PM, [address], [address], [place], [place], [phone], Provider Name:Shauna offana, 07/03/2025 11:45:00 AM, [address], [address], [place], [place], [phone], Provider Name:Shauna fofana, 07/06/2025 03:34:00 PM, [address], [address], [place], [place], [phone], Progress Notes * HERMILA GOLDENOB: [birth year] (75 yo M)Acc No.[id number]:03/13/2025 Progress Notes Patient: HERMILA BUCIO Provider: LUCIA [place] :1950 A ge:74 Y S ex:Male Date:03/13/2025 Address:[address] [place], [place] [address] [address], [facility] , [id number] Pcp:Shauna Almanzar Subjective: * Chief Complaints: * 1 . face is swollen per Alyssa at [facility], possible interaction with budesonide and itraconazole. 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 * Procedure Codes: G2211 Complex e/m visit add on. * Electronic signature of LUCIA Dean on 05/12/2025 at 02:34 PM EDT Sign off status: Pending * Provider: LUCIA [place] Date: 0 03/13/2025 Generated for Marissa mendoza/Rei/Khurramitting on: 0 05/12/2025 02:34 PM EDT History and Physical Notes * HPI [...]
--- OUTSIDE RECORDS SUMMARY | 2025-04-02 10:15 | XMS_ITS ---
Author Organization [facility] Address 1210 [facility] [address] [id number] Care Team Providers Care Market Developer Name Role Phone Shauna Almanzar Primary Care Provider [phone] Allergies Allergen (clinical drug ingredient) Drug/Non Drug Allergy documented on EMR Reaction Allergy Type Onset Date Status cephalexin Cephalexin Unknown Drug Allergy Activ e Results Component Value Reference Range Notes P-Comprehensive Metabolic Pa tarah (CMP) (Not yet reviewed by provider) Interpretation:gluc 347, bun 29, Ca 8.5, prot 5.5 Performing Lab: Notes/Report: Test performed by [employer] [facility]0 [facility] , [address], [place] [address] Kristian Trevino MD, Bowling Ball Marker CLIA: [id number] Sodium 139 135-145 mmol/L Potassium 3.7 3.5-5.3 [...] 1.8 1.1-2.5 P-Microalbumin/Creatinine, R andom Urine Sample (Not yet reviewed by provider) Interpretation:a/c 695 Performing Lab: Notes/Report: Test performed by [employer] [address] [place] [address] , [address], [place] [address] Kristian Trevino MD, Bowling Ball Marker CLIA: [id number] Albumin/Creatinine Ratio, Urine 695 0-30 ug/m g Microalbumin, Urine, Random 16.4 Creatinine, Urine 23.6 Glycohemoglobin A1c (in hous e) Reviewed date:04/03/2025 09:15:19 AM Interpretation:11 Performing Lab: Notes/Report: 11 glycohemoglobin 11.1% 5 - 6.5 % Reason For Referral Reason weakness, lung disea se, adrenal disease Diagnosis 1 Generalized weakness (R53.1) [facility] Referring Provider First Name Shauna Beatty Referring Provider Last Name Yohan Referring Provider Speciality Family Pra ctice Referred Provider Specialty Physical The rapist Referral Priority Routine REASON FOR VISIT 2 [...] 04/02/2025 Encounters Encounter Location Date Provider Diagnosis [facility] [address] [facility] [address] [place], [place] [id number] 04/02/2025 Shauna Almanzar Type 2 diabetes aquilino itus without complication E11.9 ; 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 ; Cholestatic hepatitis K75.89 ; FDC (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.4 ; 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 ; Generalized weakness R53.1 and BMI 20.0-20.9, adult Z68.20 Assessments Encounter Date Diagnosis (ICD Code) Assessment Notes Treatment Notes Treatment Clinical Notes Section Notes 04/02/2025 Type 2 diabetes mellitus without complication (ICD-10 - E11.9) 04/02/2025 Adrenal abnormality (ICD-10 - E27.9) 04/02/2025 Cholestatic hepatitis (ICD-10 - K75.89) 04/02/2025 FDC (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 (ICD-10 - Z79.4) [...] ONE TABLET BY M OUTH EVERY DAY Pending Test Test Name Order Date P-Comprehensive Metabolic Panel (CMP) P-Microalbumin/Creatinine, Random Urine Sample 04/02/2025 Referrals Referral Date Details 04/02/2025 04/02/2025, weakness , lung disease, adrenal disease Next Appt Details Follow Up: 4 Weeks, Reason: Provider Name:Shauna Mitchelljerri , 05/12/2025 02:24:00 PM, [address] [place] [address] 36 [facility], [address], [place], [place], [id number], Provider Name:Shauna Mitchelljerri , 07/03/2025 11:45:00 AM, [address] [place] [address] 36 [facility], [address], [place], [place], [id number], Provider Name:Shauna Mitchelljerri , 07/06/2025 03:34:00 PM, [address] [place] [address] 36 [facility], [address], [place], [place], [id number], Progress Notes * HERMILA GOLDEN GINOOB: [birth year] (75 yo M)Acc No.[id number]:04/02/2025 Progress Notes Patient: HERMILA BUCIO Provider: Shauna Almanzar M.D. :1950 A ge:75 Y S ex:Male Date:04/02/2025 Address:[address] [place] [address], [facility] Subjective: * Chief Complaints: * 1 . 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 B [place] 20.0-20.9, adult - Z68.20? Plan: * Treatment: [...] GFR by Creatinine 88 >59 - mL/min/1.73m2 ?LAB: P-Microalbumin/Creatinine, Random Urine Sample (Collection Date & Time - 04/02/2025 02:38 PM)?a/c 695* Value Reference Range A lbumin/Creatinine Ratio, Urine 695 H 0-30 - ug /mg * C reatinine, Urine 23.6 - mg/dL * M icroalbumin, Urine, Random 16.4 - mg/dL ?LAB: Glycohemoglobin A1c (in house) (Collection Date & Time - 04/02/2025)? 11* Value Reference Range g lycohemoglobin 11.1% 5 - 6.5 % * Fatimah Sotelo Ana Cristina 04/02/2025 03 :20:47 PM > Provider reviewed results while patient in office. 2.?Cholestatic hepatitis? Stop Pravastatin Sodium Tablet, 20 mg, TAKE ONE TABLET BY MOUTH EVERY DAY;?Stop Ezetimibe Tablet, 10 mg, TAKE ONE TABLET BY MOUTH EVERY DAY.??3.?Generalized weakness? Referral To:Physical Therapist ?Reason:weakness, lung disease, adrenal disease * Procedure Codes: G 2211 Complex e/[place], [address] GLYCATED HEMOGLOBIN TEST, Modifiers: QW , G8752 [...] * Images: Billing Information: * Visit Code: 62948 Office Visit, Est Pt., Level 4. * Procedure Codes: G2211 Complex e/[place]. [address] GLYCATED HEMOGLOBIN TEST. Modifiers: QW G8752 MOST RECENT SYSTOLIC BP < 140MM HG. G8754 MOST RECENT DIASTOLIC BP < 90MM HG. 3046F HEMOGLOBIN A1C LEVEL > 9.0%. G8420 BMI<30 AND >=22 CALC & DOCU. 1036F TOBACCO NON-USER. 3017F COLORECTAL CA SCREEN DOC REV. * Electronic signature of Shauna Almanzar MD on 05/12/2025 at 02:34 PM EDT Sign off status: Pending * Provider: Shauna Almanzar M.D. Date: 0 04/02/2025 Generated for Marissa mendoza/Rei/Khurramitting on: 0 05/12/2025 [...]
--- OUTSIDE RECORDS SUMMARY | 2025-04-17 10:26 | XMS_ITS ---
Author Organization [facility] Address [address] [place] [address] [place] [address] Phone Care Team Providers Care Machine Cloth Measurer Name Role Phone Sukumar CUEVAS, Rocky Griggs [ ] Conditions or Problems No information available. Medications Medication Instructions Start Date Stop Date Generic Name [facility] Provider budesonide 3 mg by mouth as needed as directed budesonide [facility] EZETIMIBE 10 MG TABS 1 tablet by mouth once a day ezetimibe [id number] [facility] XARELTO 20 MG TABS rivaroxaban 57490045048 [facility] PRAVASTATIN SODIUM 20 MG TABS 1 tablet by mouth once a day pravastatin [id number] [facility] aspirin 81 mg capsule 1 capsule by mouth once a day aspirin [facility] Medications Administered No information available. Allergies, Adverse Reactions, Alerts No information available. Results Date Name Value Unit Range Flag Description Office Visit: Office Visit: 11 SMOK STATUS Former smoker Tob acco smoking status MEDS REVIEW Done Documenta tion of current medications (procedure) Plan of Care Type Date Detail Appointment 11:00 AM Rocky Patino MD, [address] [facility], [address], [place], [address], Pending order CMP Pending order CBC with [...]
--- OUTSIDE RECORDS SUMMARY | 2025-04-30 10:00 | XMS_ITS ---
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) Ref[facility] Referring Provider First Name Shauna eBatty Referring Provider Last Name Yohan Referring Provider [...] W/U Status Risk Notes Problem Cardiac arrhythmia (032515054) Cardiac arrhythmia, unspecified cardiac arrhythmia type (I49.9) Active confirmed Problem Chronic vascular insufficiency of intestine (397091592) 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.] Up: 2 Months, Reason: Provider Name:Shauna fofana, 05/12/2025 02:24:00 PM, [address], [address], [place], [place], [id number], Provider Name:Shauna fofana, 07/03/2025 11:45:00 AM, [address], [address], [place], [place], [id number], Provider Name:Shauna Merida , 07/06/2025 03:34:00 PM, [address], [address], [place], [place], [address], Progress Notes * HERMILA GOLDENOB: [birth year] (75 yo M)Acc No.[id number]:04/30/2025 Progress Notes Patient: HERMILA BUCIO Provider: Shauna Almanzar M.D. :1950 A ge:75 Y S ex:Male Date:04/30/2025 Address:[address] [facility] [address] [place] [address] , [id number] Subjective: * Chief Complaints: * 1 . 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 22.0-22.9, adult - Z68.22 1 3. C [...] * Images: Billing Information: * Visit Code: 71921 Office Visit, Est Pt., Level 4. * [...] Almanzar M.D. Date: 0 04/30/2025 Generated for Collinsi ng/Fadavidg/eTransmitting on: 0 05/12/2025 02:34 PM EDT History [...]
--- OUTSIDE RECORDS SUMMARY | 2025-05-12 14:34 | XMS_ITS | Encounter Summary ---
Author Organization Healthcare Address [address] [place] [address] Care Team Providers Care Deputy Sheriff Name Role Phone Rocky Almanzar MD Primary Care Provider [phone] Reason for Visit * Reason Comments Med Refill Encounter Details Date Type Department Care Team (Late Contact Info) Description 05/20/2021 Refill [facility] Endocrinology [address] [place] [address] Jason Romero MD [address] [address] Social History Tobacco Use Types [...] Description 07/07/2025 11:40 AM EDT [facility] [address] [place] [address] Melany Rosales, DO [address] [place] [address] 07/17/2025 2:00 PM EDT Office Visit [facility] Audiology [address], [address] [place] [address] Lottie Lund, AuD [address] [place] [address] 01/05/2026 11:00 AM EST Office Visit [facility] Eye [place] [address], [address] [place] [address] Vivian Macias, OD [address] [place] [address] documented as of this encounter Visit Diagnoses Not on filedocumented in this encounter Additional Health Concerns Infection Onset Date Last Indicated Resolved Time MRSA 03/30/2021 03/30/2021 documented as of this encounter Care Teams Deputy Sheriff Relationship Specialty Start Date End Date Rocky Almaznar MD [address] [place] [address] PCP - General 03/18/21 documented as of this encounter
--- OUTSIDE RECORDS SUMMARY | 2025-05-12 14:34 | XMS_ITS | Encounter Summary ---
Author Organization [facility] Address [address] [place] [address] Care Team Providers Care Gas Engine Operator Compressors Name Role Phone Rocky Almanzar MD Primary Care Provider [phone] Reason for Visit * Reason Comments Med Refill Encounter Details Date Type Department Care Team (Late Contact Info) Description 11/10/2021 Refill [facility] [address] [place] [address] Jason Romero MD [address] [address] Type 2 diabetes mellitus with other specified complication, with long-term current use of insulin ([facility]) Social History Tobacco Use Types [...] EDT Office Visit [facility] [address] [place] [address] Melany Rosales, DO [address] [place] [address] 07/17/2025 2:00 PM EDT Office Visit [facility] Audiology [address] [place] [address] Lottie Lund, AuD [address] [place] [address] 01/05/2026 11:00 AM EST Office Visit [facility] Eye [place] [address], [address] [place] [address] Vivian Macias S, OD [address] [place] [address] documented as of this encounter Visit Diagnoses Diagnosis Type 2 diabetes mellitus with other specified complication, with long-term current use of insulin ([facility]) documented in this encounter Additional Health Concerns Infection Onset Date Last Indicated Resolved Time MRSA 03/30/2021 03/30/2021 Assessment Noted Time A fall risk assessment has been complete d for the patient 10/11/2021 3:35 PM EST documented as of this encounter Care Teams Gas Engine Operator Compressors Relationship Specialty Start Date End Date Rocky Almanzar MD [address] [place] [address] PCP - General 03/18/21 documented as of this encounter
--- OUTSIDE RECORDS SUMMARY | 2025-05-12 14:34 | XMS_ITS | Clinical Summary ---
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 376863645 (SNOMED CT) 01/14 Active 01/14 Rocky Patino MD Drug-induced immunodeficiency Leukopenia 99358036 (SNOMED CT) 01/14 Active 01/14 Rocky Patino MD Leukopenia 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 01/09 Echo Mccurdy 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/09 Active 01/09 Echo Mccurdy Acute pulmonary histoplasmosis capsulati Medications Medication Instructions Start Date Stop Date Generic Name [facility] Provider budesonide 3 mg by mouth as needed as directed budesonide [facility] EZETIMIBE 10 MG TABS 1 tablet by mouth once a day ezetimibe 79323418217 [facility] XARELTO 20 MG TABS rivaroxaban 11059384132 [facility] PRAVASTATIN SODIUM 20 MG TABS 1 tablet by mouth once a day pravastatin 54182381360 [facility] aspirin 81 mg capsule 1 capsule by mouth once a day aspirin [facility] ITRACONAZOLE 100 MG CAPS Take 2 capsule by mouth twice a day itraconazole 99814569116 [facility] ITRACONAZOLE 100 MG CAPS TAKE TWO CAPSULES BY MOUTH TWICE DAILY itraconazole 70909761597 Rocky Patino MD IPRATROPIUM-ALBU TEROL 0.5-2.5 (3) MG/3ML SOLN ipratropium-albut [place] 80062454509 [facility]rit[facility] JARDIANCE 10 MG TABS 1 tablet by mouth once a day empagliflozin 50600524031 [facility] ITRACONAZOLE 100 MG CAPS Take 2 capsule by mouth twice a day itraconazole 31288947238 Rocky Patino MD XARELTO 20 MG TABS rivaroxaban 50714147320 Christina Braden aspirin 81 mg capsule 1 capsule by mouth once a day aspirin [facility] budesonide 9 mg by mouth as needed as directed budesonide [facility] VITAMIN D 25 MCG (1000 UT) TABS 1 tablet by mouth once a day cholecalciferol (vitamin d3) 56160020414 [facility]u JARDIANCE 10 MG TABS 1 tablet by mouth once a day empagliflozin 69912012880 [facility] EZETIMIBE 10 MG TABS 1 tablet by mouth once a day ezetimibe 58001506308 [facility] insulin lispro protamine-lispro 100 unit/mL (75-25) subcutaneous susp insulin lispro protamin-lispro [facility] IPRATROPIUM-ALBU TEROL 0.5-2.5 (3) MG/3ML SOLN ipratropium-albut phoenix 49797720500 [facility] LEVOTHYROXINE SODIUM 50 MCG TABS 1 tablet by mouth once a day levothyroxine 60995727726 [facility] METFORMIN HCL 500 MG TABS 1 tablet by mouth once a day metformin 94502355448 [facility] MIRTAZAPINE 15 MG TABS 1 tablet by mouth once a day mirtazapine 17750917700 [facility] MYCOPHENOLATE MOFETIL 500 MG TABS 1 tablet by mouth twice a day mycophenolate mofetil 57560467121 [facility] PRAVASTATIN SODIUM 20 MG TABS 1 tablet by mouth once a day pravastatin 40713509126 [facility] URSODIOL 500 MG TABS 1 tablet by mouth twice a day ursodiol 59367783992 [facility] Medications Administered No information available. 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, GLASS SCIENCE ENGINEER FALLRSKASSES yes Fall ris k assessment Lab [...] Detail Appointment 11:00 AM Rocky Patino MD, [facility], [facility] [address], [place], [address], Pending order CMP Pending order CBC with [...] Procedures Code Procedure Name Date Entry Date G2 Complex E&M visit add-on (G2211) G221 Complex E&M visit add-on (G221) CPT-Cooral Continue oral antibiotics 20 27/02/11 CPT-29043 CMP C8271g,[id number] CBC with Differential 2024 CPT-45715 Itraconazole Level 1 CPT-28781 BNP CPT-elizabeth New Oral Antibiotic CPT-95558 CMP R9414m,Q562206 CBC with Differential 2024 CPT-49872 CD4 03563 Fungitell, serum (1-3) D-Glucan Assay 03/07/12 CPT-90250 Urine Culture & Sensitivity [id number], V11925M Urinalysis CPT-cf Fungal Culture & Sensitivity CPT-23602 BNP Vital Signs Date Name Value Unit [...]
--- OUTSIDE RECORDS SUMMARY | 2025-05-12 14:34 | XMS_ITS | Encounter Summary ---
Author Organization [facility] Address [address] [place] [address] Care Team Providers Care Content Curator Name Role Phone Rocky Almanzar MD Primary Care Provider Reason for Visit * Reason Onset Date Comments HCN - Patient Message 04/24/2025 Encounter Details Date Type Department Care Team (Late st Contact Info) Description 04/24/2025 Telephone [facility] Diabetes Education [address] [place] [address] Rocky Almanzar MD [address] [place] [address] HCN - Patient Message Social History Tobacco [...] * Telephone Encounter - China Seaman - 04/27/2025 3:29 PM EDT Third attempt to call pt. Unable to lvm * Telephone Encounter - Bev Barclay - 04/27/2025 1:43 PM EDT Second attempt to reach pt. No answer, no way to LV, mailbox is full. * Telephone Encounter - China Seaman - 04/24/2025 9:51 AM EDT Tried to call pt back. VM is full and can no longer accept messages * Telephone Encounter - Licha Lofton - 04/24/2025 8:23 AM EDT Clinical Concern/Question Reason for Call: Patient left message that he is almost out of his sensors/patches and needs refill. Please contact patient Best contact number: [phone] (home) Optimal time of day to reach caller: Anytime Additional comments/information from caller: n/a Note: Please do not reply to this message. Follow-up communication and further actions as a result of this message need to be communicated with the patient directly, if the patient is not active onMyChart. If the patient is active on MyChart, they will receive notification of the communication/outcome via Aceablehart. documented in this encounter Plan of Treatment Upcoming Encounters Date Type Department Care Team (Late st Contact Info) Description 07/07/2025 11:40 AM EDT [facility] [address] [place] [phone] Melany Rosales, DO [address] [place] [address] 07/17/2025 2:00 PM EDT Office Visit [facility] Audiology [address], [address] [place] [address] Lottie Lund, AuD [address] [place] [address] 01/05/2026 11:00 AM EST Office Visit [facility] Eye [place] [address], [address] [place] [address] Vivian Macias S, OD [address] [place] [address] documented as of this encounter [...] documented as of this encounter Care Teams Content Curator Relationship Specialty Start Date End Date Rocky Almanzar MD [address] [place] [address] PCP - General 03/18/21 documented as of this encounter
--- OUTSIDE RECORDS SUMMARY | 2025-05-12 14:34 | XMS_ITS | Encounter Summary ---
Author Organization Healthcare Address [address] [place] [address] Care Team Providers Care World Travel Counselor Name Role Phone Rocky Almanzar MD Primary Care Provider [phone] Reason for Visit * Reason Comments Med Refill Encounter Details Date Type Department Care Team (Late st Contact Info) Description 05/04/2025 Refill [facility] Endocrinology [address] [place] [address] Jason Romero MD [address] [address] Type 2 diabetes mellitus with hyperglycemia, with long-term current use of insulin ([facility]) Social History Tobacco Use Types [...] encounter Miscellaneous Notes * Telephone Encounter - Anastasiya Hancock - 05/04/2025 3:57 PM EDT Refill request does not meet protocol. Sending to clinic for review. Additional info: Clarification required: no upcoming appointments scheduled. documented in this encounter Plan of Treatment Upcoming Encounters Date Type Department Care Team (Late st Contact Info) Description 07/07/2025 11:40 AM EDT Office Visit [facility] Endocrinology [address] [place] [address] Melany Rosales, DO [address] [place] [address] 07/17/2025 2:00 PM EDT Office Visit [facility] Audiology [address], [address] [place] [address] Lottie Lund, AuD [address] [place] [address] 01/05/2026 11:00 AM EST Office Visit [facility] [address], [address] [place] [address] Vivian Macias S, OD [address] [place] [address] documented as of this encounter Visit Diagnoses Diagnosis Type 2 diabetes mellitus with hyperglycemia, with long-term current use of insulin ([facility]) documented in this encounter Additional Health Concerns Infection Onset Date Last Indicated Resolved Time MRSA 03/30/2021 03/30/2021 Assessment Noted Time A fall risk assessment has been complete d for the patient 12/16/2024 12:16 PM EST A Body Mass Index follow-up plan has been documented for the patient 01/13/2025 8:11 PM EDT documented as of this encounter Care Teams World Travel Counselor Relationship Specialty Start Date End Date Rocky Almanzar MD [address] [place] [address] PCP - General 03/18/21 documented as of this encounter
--- OUTSIDE RECORDS SUMMARY | 2025-05-12 14:35 | XMS_ITS | Patient Health Record ---
Author Organization [facility] Address [address] [facility] [address] [id number] Care Team Providers Care Color Shop Helper Name Role Phone Shauna Almanzar Primary Care Provider Emir Berger Unavailable [phone] Trinity Medeiros Unavailable [phone] Doretha Burns Unavailable [phone] Allergies Allergen (clinical drug ingredient) Drug/Non Drug Allergy documented on EMR Reaction Allergy Type Onset Date Status cephalexin Cephalexin Unknown Drug Allergy Activ e Results Component Value Reference Range Notes P-Comprehensive Metabolic Pa tarah (CMP) (Not yet reviewed by provider) Interpretation:gluc 347, bun 29, Ca 8.5, prot 5.5 Performing Lab: Notes/Report: Test performed by [facility] [address] [place] [address] , [address], [place] [address] Kristian Trevino MD, Particle Board Supervisor CLIA: [id number] Sodium 139 135-145 mmol/L Potassium 3.7 3.5-5.3 [...] 695 Performing Lab: Notes/Report: Test performed by [facility] [address] [place] [address] , [address], [place] [address] Kristian Trevino MD, Particle Board Supervisor CLIA: [id number] Albumin/Creatinine Ratio, Urine 695 0-30 ug/mg Microalbumin, Urine, Random 16.4 Creatinine, Urine 23.6 Glycohemoglobin A1c (in hous e) Reviewed date:04/03/2025 09:15:19 AM Interpretation:11 Performing Lab: Notes/Report: 11 glycohemoglobin 11.1% 5 - 6.5 % H-CBC Reviewed date:11/04/2024 10:00:59 AM Interpretation: Performing [...] Performing Lab: Notes/Report: chronic findings, nothing new Urinalysis - Inhouse Reviewed date:01/09/2025 01:37:28 PM [...] 229 Performing Lab: Notes/Report: Test performed by [facility] [address] [place] [address] , [address], [place] [address] Kristian Trevino MD, Particle Board Supervisor CLIA: [id number] Sodium 138 135-145 mmol/L Potassium 4.3 3.5-5.3 [...] 1.015 Ketone Neg Bili 1+ Gluc 2+ H-BMP Reviewed date:09/19/2024 01:07:51 PM Interpretation:ordered by specialist Performing Lab: Notes/Report: NA 141 136-145 mmol/L K 3.8 3.5-5.1 mmoL/L CL 112 98-107 mmol/L CO2 21 22.0-30.0 mmol/L GAP 11.8 5-15 mEq/L BUN 22 9-20 mg/dl CREATT 1.20 0.66-1.25 mg/dl GFRAA 72 >60 ML/MIN EGFR 59 >60 ml/min GLU 242 74-100 mg/dl CA 8.4 8.4-10.2 mg/dl H-BMP Reviewed date:09/15/2024 10:12:19 AM Interpretation:bun 25, Cr 1.3, gfr 54, gluc 370 Performing Lab: Notes/Report: NA 138 136-145 mmol/L K 4.3 3.5-5.1 mmoL/L CL 106 98-107 mmol/L CO2 26 22.0-30.0 mmol/L GAP 10.3 5-15 mEq/L BUN 25 9-20 mg/dl CREATT 1.30 0.66-1.25 mg/dl GFRAA 65 >60 ML/MIN EGFR 54 >60 ml/min GLU 370 74-100 mg/dl CA 9.0 8.4-10.2 mg/dl Rapid Strep- Inhouse Reviewed date:09/16/2024 01:23:25 PM Interpretation:Positive Performing Lab: Notes/Report: Positive strep test Pos Glycohemoglobin A1c (in hous e) Reviewed date:10/10/2024 10:20:31 AM Interpretation: Performing Lab: Notes/Report: glycohemoglobin 7.7% 5 - 6.5 % H-TSH Reviewed date:11/13/2024 01:33:09 PM Interpretation:Normal Performing Lab: Notes/Report: TSH 3.05 0.465-4.68 uIU/mL H-CBC Reviewed date:08/26/2024 02:54:53 PM Interpretation: Performing [...] AM Interpretation:cl 109, co2 21, bun 25, wft135 Performing Lab: Notes/Report: NA 137 136-145 mmol/L K 3.8 3.5-5.1 mmoL/L CL 109 98-107 mmol/L CO2 21 22.0-30.0 mmol/L GAP 10.8 5-15 mEq/L BUN 25 9-20 mg/dl CREATT 1.20 0.66-1.25 mg/dl GFRAA 72 >60 ML/MIN EGFR 59 >60 ml/min GLU 380 74-100 mg/dl CA 9.0 8.4-10.2 mg/dl Medications Medication SIG (Take, Route, Frequency, Duration) Notes Start Date End Date Status Levothyroxine Sodium 50 mcg 1 tablet by mouth daily; Duration: 90 days Active FreeStyle Leroy 3 [place] - as directed 05/12/2025 Active FreeStyle Leroy 3 Plus Sensor - replace sensor every 14 days; Duration: 28 days 05/12/2025 Active Ursodiol 500 MG 1 tablet Orally twic e a day Active Cholecalciferol 25 MCG (1000 UT) 1 capsule Orally Once a day; Duration: 30 day(s) Active metFORMIN HCl 500 MG 1 tablet with a igor l Orally Twice a day Active Jardiance 10 mg 1 tablet Orally ever y other day; Duration: 90 days Active Budesonide 3 MG 1 Orally at bedtime Active Itraconazole 100 MG 2 capsule after a me al Orally twice a day Active Mirtazapine 15 mg TAKE ONE TABLET BY MOUTH EVERY DAY AT BEDTIME; Duration: 30 Active Ipratropium-Albuterol 0.5-2.5 (3) MG/3ML 3 mL as needed Inhalation every 6 hrs Active Itraconazole 100 MG 1 capsule after a me al Orally Once a day; Duration: 10 day(s) Not-Taking HumaLOG Mix 75/25 (75-25) 100 UNIT/ML 36 units subcutaneously three times a day ac Active Lantus SoloStar 100 UNIT/ML 5 units Subcutaneous once daily; Duration: 30 days 04/02/2025 Active Mycophenolate Mofetil 500 MG 1 tablet Orally Twice a day; Duration: 30 day(s) Active Warfarin Sodium 6 MG 1 tablet Orally Onc e a day; Duration: 30 day(s) Active Immunizations Vaccine Route Administration Date Status Comme nts COVID 19 Moderna IM Intramuscular 11/15/2020 Administered COVID 19 Moderna IM Intramuscular 12/14/2020 Administered COVID 19 Moderna Unknown 09/28/2021 Administered Fluzone High Dose (65yr and older) IM Intramuscular 11/17/2016 Administered Fluzone High Dose (65yr and older) IM Intramuscular 08/16/2020 Administered Fluzone High Dose (65yr and older) IM Intramuscular 10/09/2024 Administered Fluzone Quad-Medicare (6months&older) Unknown 09/22/2021 Administered Hepatitis A (adult) Unknown 07/31/2012 Administered Hepatitis A (adult) Unknown 03/03/2013 Administered PNEUMOVAX 23 VACCINE IM Intramuscular 08/13/2018 Administe red Prevnar (PCV13) IM Intramuscular 08/03/2015 Administered Problems Problem Type SNOMED Code ICD Code Onset Dates Problem Status W/U Status Risk Notes Problem Essential hypertension (84736526) Essential (primary) hypertension (I10) Active confirmed Problem Vitamin D deficiency (77819911) Vitamin D deficiency (E55.9) Active confirmed Problem Essential hypertension (31707428) Essential hypertension (I10) Active confirmed Problem Screening for malignant neoplasm of prostate (166642445) Prostate cancer screening (Z12.5) Active confirmed Problem Paroxysmal atrial fibrillation (313816649) Paroxysmal atrial fibrillation (I48.0) Active confirmed Problem Hyperglycemia due to type 2 diabetes mellitus (952867730453148) Type 2 diabetes mellitus with hyperglycemia (E11.65) Active confirmed Problem Mixed hyperlipidemia (099389813) Mixed hyperlipidemia (E78.2) Active confirmed Problem Hyperlipidemia (77965959) Hyperlipidemia, unspecified (E78.5) Active confirmed Problem Hereditary hemochromatosis (31312504) 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) Active confirmed Problem Chronic respiratory failure (95473377) Chronic respiratory failure with hypoxia (J96.11) Active confirmed Problem Autoimmune hepatitis (021378940) Autoimmune hepatitis (K75.4) Active confirmed Problem Cholelithiasis without obstruction (33570718) Calculus of gallbladder without cholecystitis without obstruction (K80.20) Active confirmed Problem Cochlear implant status (Z96.21) Active confirmed Problem Male erectile disorder (483051226) Male erectile disorder (N52.9) Active confirmed Problem Long-term current use of insulin (803176208) terminal operations manager (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 (Z79.4) Active confirmed Problem Type II diabetes mellitus without complication (184340062) Type 2 diabetes mellitus without complication (E11.9) Active confirmed Problem Acquired hypothyroidism (207053985) Acquired hypothyroidism (E03.9) Active confirmed Problem Pulmonary fibrosis (34457650) Pulmonary fibrosis (J84.10) Active confirmed Problem Chronic fatigue syndrome (01384019) Chronic fatigue (R53.82) Active confirmed Problem COPD - Chronic obstructive pulmonary disease (69540696) Chronic obstructive pulmonary disease, unspecified COPD type (J44.9) Active confirmed Problem Pneumonia (292511370) Pneumonia of right lower lobe due to infectious organism (J18.9) Active confirmed Problem Hearing loss (60775084) Hearing loss, bilateral (H91.93) Active confirmed Problem Disorder of adrenal gland (90069058) 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) Active confirmed Problem Neutropenia (715955017) Neutropenia, unspecified type (D70.9) Active confirmed Problem Interstitial lung disease (679468922) Interstitial lung disease (J84.9) Active confirmed Problem Seasonal allergic rhinitis (530173906) Seasonal allergic rhinitis, unspecified allergic rhinitis trigger (J30.2) Active confirmed Problem Granulocytopenia (799440427) 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 confirmed Problem Systemic lupus erythematosus (15342769) Lupus (systemic lupus erythematosus) (M32.9) Active confirmed Problem Cardiac arrhythmia (221257775) Cardiac arrhythmia, unspecified cardiac arrhythmia type (I49.9) Active confirmed Problem Malnutrition, calorie (861044429) Caloric malnutrition (E46) Active confirmed Problem Benign prostatic hypertrophy without outflow obstruction (194312875) BPH without urinary obstruction (N40.0) Active confirmed Problem Allergic rhinitis caused by pollen (25460480) Acute seasonal allergic rhinitis due to pollen (J30.1) Active confirmed Problem Sensorineural hearing loss, bilateral (971835224) Sensorineural hearing loss (SNHL) of both ears (H90.3) Active confirmed Problem Cholestatic hepatitis (08379687) Cholestatic hepatitis (K75.89) Active confirmed Problem Skin sensation disturbance (08651294) Sensitive skin (R20.3) Active confirmed Problem Dilatation of aorta (57486060) Dilatation of aorta (I77.819) Active confirmed Problem Tomography - chest abnormal (439232050) Abnormal CT scan, chest (R93.89) Active confirmed Problem Left atrial dilatation (791644299) Left atrial dilatation (I51.7) Active confirmed Problem Chronic vascular insufficiency of intestine (301568188) 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 Problem Protein malnutrition (18929498) Protein malnutrition (E46) Active confirmed Vital Signs Heart Rate 85 /min 04/30/2025 Blood pressure diastolic 62 mm Hg 04/30/2025 Height 65 in 04/30/2025 Blood pressure systolic 130 mm Hg 04/30/2025 Weight 133.8 lbs 04/30/2025 BMI 22.26 kg/m2 04/30/2025 Encounters Encounter Location Date Provider Diagnosis [facility] [address] [id number] 05/26/2024 Shauna Almanzar Interstitial lung disease J84.9 ; Chronic fatigue R53.82 ; Chronic respiratory failure with hypoxia J96.11 and Acquired hypothyroidism E03.9 [place] [address] [id number] 09/05/2024 Shauna Almanzar Pneumonia of left lo wer lobe due to infectious organism J18.9 ; Interstitial lung disease J84.9 ; Chronic respiratory failure with hypoxia J96.11 ; 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 ; Autoimmune hepatitis K75.4 ; Protein malnutrition E46 and Caloric malnutrition E46 [facility] [address] [place] [id number] 09/16/2024 Trinity Medeiros Strep pharyngitis J0 2.0 and Oral candidiasis B37.[address] [id number] 10/09/2024 Shauna Almanzar Lesion of adrenal gl and E27.9 ; Essential hypertension I10 ; Type 2 diabetes mellitus without complication E11.9 ; Acquired hypothyroidism E03.9 ; Hearing loss, bilateral H91.93 ; Cochlear implant status Z96.21 ; Protein malnutrition E46 ; Chronic obstructive pulmonary disease, unspecified COPD type J44.9 and Encounter for immunization Z23 [facility] [address] [facility] [address] [place] [id number] 11/03/2024 Emir [place] [facility]05.1 [facility] [address] [place] [id number] 11/07/2024 Shauna Almanzar Type 2 diabetes aquilino itus without complication E11.9 ; Acquired hypothyroidism E03.9 and Hereditary hemochromatosis E83.110 [facility] [address] [place] [id number] 01/09/2025 Shauna Almanzar Type 2 diabetes aquilino itus without complication E11.9 ; Hereditary hemochromatosis E83.110 ; Cochlear implant status Z96.21 ; Chronic obstructive pulmonary disease, unspecified COPD type J44.9 ; Essential (primary) hypertension I10 ; Protein malnutrition E46 and Gross hematuria R31.0 [facility] [address] [place] [id number] 01/15/2025 Shauna Almanzar Interstitial lung disease J84.9 ; 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 ; Autoimmune hepatitis K75.4 ; Protein malnutrition E46 ; Cochlear implant status Z96.21 ; Type 2 diabetes mellitus without complication E11.9 and Hematuria R31.9 [facility] [address] [place] [id number] 02/11/2025 Emir [place] Type 2 diabetes aquilino itus with hyperglycemia E11.65 ; USP (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.4 ; Gross hematuria R31.0 and Body mass index (BMI) of 19.0 to 19.9 in adult Z68.1 [facility] 1210 [facility] [address] [place] [id number] 03/13/2025 Doretha Burns Drug interaction Z78 .9 [facility] [address] [place] [id number] 04/02/2025 Shauna Almanzar Type 2 diabetes aquilino itus without complication E11.9 ; 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 ; Cholestatic hepatitis K75.89 ; terminal operations manager (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.4 ; 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 ; Generalized weakness R53.1 and BMI 20.0-20.9, adult Z68.20 [facility] [address] [place], [place] [id number] 04/30/2025 Shauna Almanzar Type 2 diabetes aquilino [...] adult Z68.22 and Cochlear implant status Z96.21 [facility] [address] [place], [place] [id number] 06/04/2024 Shauna Almanzar [facility] [address] [place], [place] [id number] 09/01/2024 Shauna Almanzar [facility] [address] [place], [place] [id number] 09/04/2024 Shauna Almanzar [facility] [address] [place], [place] [id number] 09/08/2024 Shauna Almanzar [facility] [address] [place], [place] [id number] 09/10/2024 Shauna Almanzar [facility] [address] [place], [place] [id number] 09/15/2024 Shauna Almanzar [facility] [address] [place], [place] [id number] 09/16/2024 Shauna Almanzar [facility] [address] [place], [place] [id number] 09/25/2024 hSauna Almanzar [facility] [address] [place], [place] [id number] 11/03/2024 Emir Berger [facility] [address] [place], [place] [id number] 01/12/2025 Shauna Almanzar [facility] [address] [place], [place] [id number] 05/12/2025 Shauna Almanzar Assessments Encounter Date Diagnosis (ICD Code) Assessment Notes Treatment Notes Treatment Clinical Notes Section Notes 05/26/2024 Chronic fatigue (ICD-10 - R53.82) 05/26/2024 [...] to resume use of his CGM 02/11/2025 terminal operations manager (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 (ICD-10 - Z79.4) [...] diabetes mellitus without complication (ICD-10 - E11.9) 04/30/2025 Type 2 diabetes mellitus with hyperglycemia (ICD-10 - E11.65) 04/30/2025 terminal operations manager (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 (ICD-10 - Z79.4) 04/30/2025 Adrenal abnormality (ICD-10 - E27.9) 04/02/2025 Adrenal abnormality (ICD-10 - E27.9) 02/11/2025 [...] to 19.9 in adult (ICD-10 - Z68.1) 04/30/2025 Interstitial lung disease (ICD-10 - J84.9) 04/02/2025 Cholestatic hepatitis (ICD-10 - K75.89) 04/30/2025 Essential (primary) hypertension (ICD-10 - I10) 04/02/2025 USP (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 (ICD-10 [...] - Z96.21) 04/02/2025 Histoplasmosis (ICD-10 - B39.9) 04/30/[address] scan, chest (ICD-10 - R93.89) 04/30/2025 Calculus of gallbladder without cholecystitis without obstruction (ICD-10 - K80.20) 04/02/2025 Generalized weakness (ICD-10 - R53.1) 01/15/2025 Hematuria (ICD-10 - R31.9) 01/09/2025 Gross hematuria (ICD-10 - R31.0) 10/09/2024 Protein malnutrition (ICD-10 - E46) 09/05/2024 Caloric malnutrition (ICD-10 - E46) 10/09/2024 Chronic obstructive pulmonary disease, unspecified COPD type (ICD-10 - J44.9) 04/02/2025 BMI 20.0-20.9, adult (ICD-10 - Z68.20) 04/30/2025 Hereditary hemochromatosis (ICD-10 - E83.110) 04/30/2025 Paroxysmal atrial fibrillation (ICD-10 - I48.0) 10/09/2024 Encounter for immunization (ICD-10 - Z23) 04/30/2025 Cardiac arrhythmia, unspecified cardiac arrhythmia type (ICD-10 - I49.9) 04/30/2025 Superior mesenteric artery stenosis (ICD-10 - K55.1) 04/30/2025 BMI 22.0-22.9, adult (ICD-10 - Z68.22) 04/30/2025 Cochlear implant status (ICD-10 - Z96.21) 02/11/[address] Villarreal in Heme/Onc today about patient. Patient is seeing ID later this week with the plan to resume Itraconazole Plan Of Treatment Pending Test Test Name Order Date H-TSH 11/07/2024 P-Comprehensive Metabolic Panel (CMP) P-Microalbumin/Creatinine, Random Urine Sample 04/02/2025 Next Appt Details [facility] 02:24:00 PM, [address] [place] [address], [place], [id number], [facility] 07/03/2025 11:45:00 AM, [address], [place], [id number], [facility] 07/06/2025 03:34:00 PM, [address], [place], [id number], Insurance Providers Payer Name Payer Address Payer Phone Subscriber Number Group Number Insured Name Patient Relationship to Insured Coverage Start Date Coverage End Date [facility] [address] [address] [place] [address] [phone] [id number] HERMILA GOLDEN Self - patient is the insured Medical (General) History Medical History History ICD Code Seasonal Allergies Kidney Stones Steatohepatitis hemachromatosis,(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 Smalls and Dr. Thakur Atrial dysrrhythmia, see notes 2012 hearing loss 2013, hearing aids Impaired fasting glucose Gets yearly eye exams, 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
--- OUTSIDE RECORDS SUMMARY | 2025-05-12 14:35 | XMS_ITS | Clinical Summary ---
Author Organization [facility] Address [address] [place] [address] Care Team Providers Care Assistant Associate Professor Name Role Phone Rocky Almanzar MD Primary Care Provider [phone] Allergies Active Allergy Reactions Criticality Noted Date Comments Cephalexin Itching Medium 10/17/2016 Possible allergy, patient unsure Mixed Ragweed Unknown - Patient st ates they do not know rxn details Low 07/01/2024 Medications Aspirin Buf,CaCarb-MgC arb-MgO, 81 MG tablet 1 tab(s) orally once a day Active cholecalcifero l (Vitamin D-3) 25 MCG (1000 UT) tablet 1 tab(s) orally once a day Active ezetimibe (Zetia) 10 MG tablet Active pravastatin (Pravachol) 20 MG tablet Take 1 tablet (20 mg) by mouth daily. 01/06/20 22 Active ipratropium-al buterol (Duo-Neb) 0.5-2.5 mg/3 mL nebulizer solution Take 3 mL by nebulization 3 (three) times a day. Active levothyroxine (Synthroid, Levoxyl) 50 MCG tablet Take 1 tablet (50 mcg) by mouth daily before breakfast. 06/23/20 24 Active mirtazapine (Remeron) 15 MG tablet Take [...] a day. Active metFORMIN (Glucophage) 500 MG tabletIndicati ons:Type 2 diabetes mellitus with other specified complication, with long-term current use of insulin (CMS/HCC) TAKE ONE TABLET BY MOUTH TWICE DAILY --TAKE WITH FOOD-- 180 tablet 2 12/17/19 25 Active insulin lispro protamine-insu shari lispro (HumaLOG MIX 75/25 KWIKPEN) (75-25) 100 UNIT/ML injection pen INJECT 26 UNITS THREE TIMES A DAY. TITRATE DIRECTED TO MAXIMUM DAILY DOSE OF 100 UNITS. 90 mL 1 01/17/20 25 Active Jardiance 10 MGIndications: Type 2 diabetes mellitus with hyperglycemia, with long-term current use of insulin (CMS/HCC) TAKE 1 TABLET DAILY 90 tablet 3 05/04/20 25 Active Jardiance 10 MGIndications: Type 2 diabetes mellitus with hyperglycemia, with long-term current use of insulin (CMS/HCC) Take 1 tablet (10 mg) by mouth 1 (one) time each day. 90 tablet 3 05/23/20 24 025 Discontinued Active Problems Problem Noted Date Diagnosed Date [...] Encounters Date Type Department Care Team Description 05/04/2025 [facility]ill [facility] [address] [place] [id number] Jason Romero MD Type 2 diabetes mellitus with hyperglycemia, with long-term current use of insulin ([facility]) 04/28/2025 Telephone [facility] Endocrinology [address] [place] [address] Jason Romero MD 04/24/2025 Telephone [facility] Diabetes Education [address] [place] [address] Rocky Almanzar MD [facility] - Patient Message from Last 3 Months Immunizations Immunization Administration [...] 07/07/2025 11:40 AM EDT Office Visit [facility] Endocrinology [address] [place] [address] Melany Rosales, DO [address] [place] [address] 07/17/2025 2:00 PM EDT Office Visit [facility] Audiology [address] [place] [address] Lottie Lund, AuD [address] [place] [address] 01/05/2026 11:00 AM EST Office Visit [facility] [address], [address] [place] [address] Vivian Macias S, OD [address] [place] [address] Health Maintenance Due Date Last [...] A1C 03/17/202509/2025, 05/23/2024, 11/22/2023, Additional history exists [id number] Vaccine (7 - Moderna risk 2023- season) 2025 10/13/2024, 10/01/2023, 09/20/2022, Additional history exists UKY-Influenza Vaccine (#1) 07/06/202510/16, 09/22/2021, 09/22/2021, Additional history exists Colonoscopy 08/03/2027 [...] this topic Medical Devices Implanted Type Area Director Learning And Development Device Identifier Shelf Expiration Date Model / Serial / Lot Roseline Stanleyk Advantage Ci Hifocus 1j Electrode--06/05 Implanted:06/05 by Ky Del Rio MD (Quantity not on file) Cochlear Left: Ear ChirpVision [id number] / [id number] / Description:Roseline 90K Advant age CI HiFocus 1J electrode--cochlear implant by Dr. Del Rio at [facility] on 06/21/2017, operative note in Epic. LEFT EAR. Roseline ULTRA 3D Cochlear implant REF: [id number] Serial number: [id number] Procedures Procedure Name Priority Date/Time Associated Diagnosis [...] A1C 7.6 <5.7% Non-Diabet ic % [place] [facility] Kit Lot Number [id number] [facility] Kit Expiration Date 10/04/26 [facility] Blood Venous blood specimen / Unknown 12/16/2024 12:27 PM EST Jason Romero MD POINT OF CARE TEST ENTER/ED IT ORDERABLES Final Result Performing Organization Address [facility]/State/[facility] Co de Phone Number HEALTHCARE [facility] [address] [place] [id number] * COLONOSCOPY (08/03/2017) Anatomical Region Laterality Modality [...] Date Last Indicated MRSA 03/30/2021 03/30/2021 Insurance [facility] MEDICARE EYEMED Care Teams Assistant Associate Professor Relationship Specialty Start Date End Date Rocky Almanzar MD [address] [facility] [address] [place] [address] PCP - General 03/18/21
--- OUTSIDE RECORDS SUMMARY | 2025-05-12 14:35 | XMS_ITS | Encounter Summary ---
Author Organization Healthcare Address [address] [place] [address] Care Team Providers Care Pen Maker Name Role Phone Rocky Almanzar MD Primary Care Provider [phone] Encounter Details Date Type Department Care Team (Late st Contact Info) Description 04/28/2025 Telephone [facility] Endocrinology [address] [place] [address] Jason Romero MD [address] [place] [address] Social History Tobacco Use Types [...] encounter Miscellaneous Notes * Telephone Encounter - Bev Barclay Mary - 04/28/2025 4:37 PM EDT Returned pt's phone call. Pt was just wondering how he can receive new refills for his FSL3+ sensors. Provided pt with Derek's phone number for refills from [facility]. Pt's was on the phone and was able to take appropriate notes. 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 No other questions at this time. * Telephone Encounter - MARYLIN DALAL - 04/28/2025 12:05 PM EDT Pt requesting a call back regarding his Leroy system not seeming to be working. documented in this encounter Plan of Treatment Upcoming Encounters Date Type Department Care Team (Late st Contact Info) Description 07/07/2025 11:40 AM EDT Office Visit [facility] Endocrinology [address] [place] [phone] Melany Rosales, DO [address] [place] [address] 07/17/2025 2:00 PM EDT Office Visit [facility] Audiology [address] [place] [address] Lottie Lund, AuD [address] [place] [address] 01/05/2026 11:00 AM EST Office Visit [facility] [address], [address] [place] [address] Vivian Macias S, OD [address] [place] [address] documented as of this encounter [...] documented as of this encounter Care Teams Pen Maker Relationship Specialty Start Date End Date Rocky Almanzar MD [address] [place] [address] PCP - General 03/18/21 documented as of this encounter
[2025-05-12 14:48] LABS: Hematocrit 33.3 % (42.0-52.0); Hemoglobin 10.6 g/dL (14.1-18.0); Immature Granulocytes % 2.6 %; Mean Corpuscular HGB Conc 31.8 g/dL (31.8-35.4); Mean Corpuscular Hemoglobin 27.0 pg (27.0-31.2); Mean Corpuscular Volume 84.9 fl (80-94); Nucleated Red Blood Cells % 0.5 %; Platelet Count 276 K/mm3 (142-424); Red Blood Count 3.92 M/mm3 (4.60-6.20); Red Cell Distribution Width-SD 56.3 fL; White Blood Count 4.2 K/mm3 (4.8-10.8)
[2025-05-12 15:11] LABS: Total Cells Counted 100
[2025-05-12 15:12] LABS: Schistocytes 1+; Tear Drop Cells 1+
[2025-05-12 15:54] LABS: Alanine Aminotransferase 29 U/L (12-78); Albumin Level 3.5 g/dl (3.5-5.0); Albumin/Globulin Ratio 1.4 (1.1-1.8); Alkaline Phosphatase 101 U/L (38-126); Anion Gap 15.2 mEq/L (5-15); Aspartate Amino Transferase 26 U/L (17-59); Bilirubin,Total 0.6 mg/dl (0.2-1.3); Blood Urea Nitrogen 29 mg/dl (9-20); Calcium 8.7 mg/dl (8.4-10.2); Carbon Dioxide 23 mmol/L (22.0-30.0); Chloride 101 mmol/L (98-107); Creatinine,Serum 0.90 mg/dl (0.66-1.25); Estimated Glomerular Filt Rate 82 ml/min (>60); GFR (African American) 100 ML/MIN (>60); Globulin 2.5 g/dL (1.3-3.2); Glucose 245 mg/dl (74-100); Potassium 4.2 mmoL/L (3.5-5.1); Sodium 135 mmol/L (136-145); Total Protein,Serum 6.0 g/dl (6.3-8.2)
== END 2025-05-12 23:59 | disposition home or self-care (01) ==
LOC: LAB 14:32
PROVIDERS: Internal Medicine Medical Oncology; PCP Family Medicine; Visit Provider Nurse Practitioner Family
DX: K75.3 Granulomatous hepatitis, not elsewhere classified (principal); D72.819 Decreased white blood cell count, unspecified
CPT/HCPCS: 36415; 80053; 85007; 85025; 85027

== ENCOUNTER 2025-05-13 10:12 | Outpatient (CLI) | payer MEDICARE, SELFPAY ==
--- OUTSIDE RECORDS SUMMARY | 2025-03-13 10:15 | XMS_ITS ---
Author Organization [facility] Address 1210 [facility] [address] [phone] Care Team Providers Care Programming Coordinator Name Role Phone Shauna Almanzar Primary Care Provider Doretha Burns Unavailable [phone] Allergies Allergen (clinical drug ingredient) Drug/Non Drug Allergy documented on EMR Reaction Allergy Type Onset Date Status cephalexin Cephalexin Unknown Drug Allergy Activ e REASON FOR VISIT face is swollen per Alyssa at [facility], possible interaction with budesonide and itraconazole [...] 03/13/2025 Encounters Encounter Location Date Provider Diagnosis [facility] [address] [place] [id number] 03/13/2025 Doretha Burns Drug interaction Z78 .9 [...] Assessment Notes Drug interaction Discussed with Dr. Neyr king. Swelling is likely due from the interaction of itraconazole and budesonide. Will decrease budesonide dose to 2 tab daily until he sees GI on Sunday and will discuss dosing with them, as they are the ones managing this medication. Next Appt Details Follow Up: with GI, Reason: Provider Name:Shauna fofana, 07/03/2025 11:45:00 AM, [address] [facility], [address], [place], [place], [phone], Provider Name:Shauna fofana, 07/06/2025 03:34:00 PM, [address], [address], [place], [place], [id number], Progress Notes * HERMILA GOLDEN: [birth year] (75 yo M)Acc No.[id number]:03/13/2025 Progress Notes Patient: HERMILA BUCIO Provider: LUCIA Davis :1950 A ge:74 Y S ex:Male Date:03/13/2025 Address:[address] [facility] [address], [facility] [place] , [id number] Pcp:Shauna Almanzar Subjective: * Chief Complaints: * 1 . face is swollen per Alyssa at [facility], possible interaction with budesonide and itraconazole. 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 * Procedure Codes: G2211 Complex e/m visit add on. * Electronic signature of LUCIA Dean on 05/13/2025 at 10:21 AM EDT Sign off status: Pending * Provider: LUCIA Davis Date: 0 03/13/2025 Generated for Marissa mendoza/Rei/eTransmitting on: 0 05/13/2025 10:21 AM EDT History and Physical Notes * [...]
--- OUTSIDE RECORDS SUMMARY | 2025-04-02 10:15 | XMS_ITS ---
Author Organization [facility] Address 1210 [facility] [address] [phone] Care Team Providers Care Education Professional Name Role Phone Shauna Almanzar Primary Care Provider [phone] Allergies Allergen (clinical drug ingredient) Drug/Non Drug Allergy documented on EMR Reaction Allergy Type Onset Date Status cephalexin Cephalexin Unknown Drug Allergy Activ e Results Component Value Reference Range Notes P-Comprehensive Metabolic Pa tarah (CMP) (Not yet reviewed by provider) Interpretation:gluc 347, bun 29, Ca 8.5, prot 5.5 Performing Lab: Notes/Report: Test performed by [employer] [facility]0 [facility] , [address], [place] [address] Kristian Trevino MD, Manager Digital Ad Operations CLIA: [id number] Sodium 139 135-145 mmol/L Potassium 3.7 3.5-5.3 [...] 695 Performing Lab: Notes/Report: Test performed by [employer] [address] [place] [address] , [address], [place] [address] Kristian Trevino MD, Manager Digital Ad Operations CLIA: [id number] Albumin/Creatinine Ratio, Urine 695 0-30 ug/m g Microalbumin, Urine, Random 16.4 Creatinine, Urine 23.6 Glycohemoglobin A1c (in hous e) Reviewed date:04/03/2025 09:15:19 AM Interpretation:11 Performing Lab: Notes/Report: 11 glycohemoglobin 11.1% 5 - 6.5 % Reason For Referral Reason weakness, lung disea se, adrenal disease Diagnosis 1 Generalized weakness (R53.1) [facility] Referring Provider First Name Shauna [...] [facility] [address] [place], [place] [id number] 04/02/2025 Shauna Almanzar Type 2 diabetes aquilino itus without complication E11.9 ; 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 ; Cholestatic hepatitis K75.89 ; FPC (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.4 ; Histoplasmosis [...] Name:Shauna Merida er, 07/03/2025 11:45:00 AM, 1210 [facility] 36 [facility], [address], [place], [id number], Provider Name:Shauna Merida , 07/06/2025 03:34:00 PM, 1210 [facility] 36 [facility], [address], [place], [id number], Progress Notes * HERMILA GOLDENJORGEOB: [birth year] (75 yo M)Acc No.[id number]:04/02/2025 Progress Notes Patient: HERMILA BUCIO Provider: Shauna Almanzar M.D. :1950 A ge:75 Y S ex:Male Date:04/02/2025 Address:[address] [place] [address] , [facility] Subjective: * Chief Complaints: * 1 [...] glucose, Gets yearly eye exams, [facility], Questionable Dx Lupus erythematosus 2015, Granuloma annulare [...] G 2211 Complex e/[place], [address] GLYCATED HEMOGLOBIN TEST, Modifiers: QW , G8752 [...] * Images: Billing Information: * Visit Code: 27458 Office Visit, Est Pt., Level 4. * Procedure Codes: G2211 Complex e/[place]. [address] GLYCATED HEMOGLOBIN TEST. Modifiers: QW G8752 MOST RECENT SYSTOLIC BP < 140MM HG. G8754 MOST RECENT DIASTOLIC BP < 90MM HG. 3046F HEMOGLOBIN A1C LEVEL > 9.0%. G8420 BMI<30 AND >=22 CALC & DOCU. 1036F TOBACCO NON-USER. 3017F COLORECTAL CA SCREEN DOC REV. * Electronic signature of Shauna Almanzar MD on 05/13/2025 at 10:21 AM EDT Sign off status: Pending * Provider: Shauna Almanzar M.D. Date: 0 04/02/2025 Generated for Marissa mendoza/Rei/Khurramitting on: 0 05/13/2025 10:21 AM EDT History [...]
--- OUTSIDE RECORDS SUMMARY | 2025-04-17 10:26 | XMS_ITS ---
Author Organization [facility] Address [address] [place] [address] [place] [address] Phone Care Team Providers Care Chief Revenue Officer Name Role Phone Sukumar CUEVAS, Rocky Griggs [ ] Conditions or Problems No information available. Medications Medication Instructions Start Date Stop Date Generic Name [facility] Provider budesonide 3 mg by mouth as needed as directed budesonide Formerly Named [facility] EZETIMIBE 10 MG TABS 1 tablet by mouth once a day ezetimibe [id number] Former[facility] Named [facility] XARELTO 20 MG TABS rivaroxaban 47117128527 Former[facility] Named [facility] PRAVASTATIN SODIUM 20 MG TABS 1 tablet by mouth once a day pravastatin 49452521530 Formerly Named [facility] aspirin 81 mg capsule 1 capsule by mouth once a day aspirin Former[facility] Named [facility] Medications Administered No information available. Allergies, Adverse Reactions, Alerts No information available. Results Date Name Value Unit Range Flag Description Office Visit: Office Visit: 11 SMOK STATUS Former smoker Tob acco smoking status MEDS REVIEW Done Documenta tion of current medications (procedure) Plan of Care Type Date Detail Appointment 11:00 AM Rocky Patino MD, [address] [facility], [address], [place], [address], Pending order CMP Pending order CBC with [...]
--- OUTSIDE RECORDS SUMMARY | 2025-04-30 10:00 | XMS_ITS ---
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) Referral Organization [facility] Referring Provider First Name Shauna Beatty [...] W/U Status Risk Notes Problem Cardiac arrhythmia (075118394) Cardiac arrhythmia, unspecified cardiac arrhythmia type (I49.9) Active confirmed Problem 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 Vital Signs Blood pressure systolic 130 mm Hg 04/30/20 25 Blood pressure diastolic 62 mm Hg 025 Heart Rate 85 /min 04/30/2025 Height 65 in 04/30/2025 Weight 133.8 lbs 04/30/2025 BMI 22.26 kg/m2 04/30/2025 Encounters Encounter Location Date Provider Diagnosis [place] [address] [facility] [address] [phone] 04/30/2025 Shauna Almanzar Type 2 diabetes aquilino itus with hyperglycemia E11.65 ; 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 :1950 A ge:75 Y S ex:Male Date:04/30/2025 Address:[address] [place] [address], [facility] Subjective: * Chief Complaints: * 1 [...] portal: [email or web address], type 2 diabetes, [facility] [...] artery stenosis - K55.1 1 2. B [place] 22.0-22.9, adult - Z68.22 1 3. C [...] * Images: Billing Information: * Visit Code: 94809 Office Visit, Est Pt., Level 4. * [...] 04/30/2025 Generated for Printi ng/Faxing/eTransmitting on: 0 05/13/2025 10:21 AM EDT History [...]
--- OUTSIDE RECORDS SUMMARY | 2025-05-13 10:21 | XMS_ITS | Encounter Summary ---
Author Organization [facility] Address [address] [place] [address] Care Team Providers Care Net Sorter Name Role Phone Rocky Almanzar MD Primary Care Provider [phone] Reason for Visit * Reason Comments Med Refill Encounter Details Date Type Department Care Team (Late Contact Info) Description 11/10/2021 Refill [facility] Endocr[facility]ology [address] [place] [address] Jason Romero MD [address] [address] Type 2 diabetes mellitus with other specified complication, with long-term current use of insulin ([facility]) Social History Tobacco Use Types [...] EDT Office Visit [facility] [address] [place] [phone] Melany Rosales, DO [address] [place] [address] 07/17/2025 2:00 PM EDT Office Visit [facility] Audiology [address] [place] [address] Lottie Lund, AuD [address] [place] [address] 01/05/2026 11:00 AM EST Office Visit [facility] [place] [address] [place] [address] Vivian Macias S, OD [address] [place] [address] documented as of this encounter Visit Diagnoses Diagnosis Type 2 diabetes mellitus with other specified complication, with long-term current use of insulin ([facility]) documented in this encounter Additional Health Concerns Infection Onset Date Last Indicated Resolved Time MRSA 03/30/2021 03/30/2021 Assessment Noted Time A fall risk assessment has been complete d for the patient 10/11/2021 3:35 PM EST documented as of this encounter Care Teams Net Sorter Relationship Specialty Start Date End Date Rocky Almanzar MD [address] [place] [address] PCP - General 03/18/21 documented as of this encounter
--- OUTSIDE RECORDS SUMMARY | 2025-05-13 10:21 | XMS_ITS | Clinical Summary ---
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 manager therapeutic use of drug 791004878 (SNOMED CT) 01/14 Active 01/14 Rocky Patino MD Drug-induced immunodeficiency Leukopenia 89054286 (SNOMED CT) 01/14 Active 01/14 Rocky Patino MD Leukopenia 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 (SNOMED CT) 01/09 Active 01/09 Echo Mccurdy 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/09 Active 01/09 Echo Mccurdy Acute pulmonary histoplasmosis capsulati Medications Medication Instructions Start Date Stop Date Generic Name [facility] Provider budesonide 3 mg by mouth as needed as directed budesonide [facility] EZETIMIBE 10 MG TABS 1 tablet by mouth once a day ezetimibe 04115328059 [facility] XARELTO 20 MG TABS rivaroxaban 29016664477 [facility] PRAVASTATIN SODIUM 20 MG TABS 1 tablet by mouth once a day pravastatin 44842195472 [facility] aspirin 81 mg capsule 1 capsule by mouth once a day aspirin [facility] ITRACONAZOLE 100 MG CAPS Take 2 capsule by mouth twice a day itraconazole 45816810963 [facility] ITRACONAZOLE 100 MG CAPS TAKE TWO CAPSULES BY MOUTH TWICE DAILY itraconazole 52529340123 Rocky Patino MD IPRATROPIUM-ALBU TEROL 0.5-2.5 (3) MG/3ML SOLN ipratropium-albut [place] 30862975844 Amrita Hope JARDIANCE 10 MG TABS 1 tablet by mouth once a day empagliflozin 32996934421 [facility] ITRACONAZOLE 100 MG CAPS Take 2 capsule by mouth twice a day itraconazole 70682513793 Rocky Patino MD XARELTO 20 MG TABS rivaroxaban 68745680361 Christina Braden aspirin 81 mg capsule 1 capsule by mouth once a day aspirin [facility] Sonu budesonide 9 mg by mouth as needed as directed budesonide [facility] VITAMIN D 25 MCG (1000 UT) TABS 1 tablet by mouth once a day cholecalciferol (vitamin d3) 73658434295 [facility]u JARDIANCE 10 MG TABS 1 tablet by mouth once a day empagliflozin 90429469065 [facility] EZETIMIBE 10 MG TABS 1 tablet by mouth once a day ezetimibe 11116229561 [facility] insulin lispro protamine-lispro 100 unit/mL (75-25) subcutaneous susp insulin lispro protamin-lispro [facility] Son[facility] IPRATROPIUM-ALBU TEROL 0.5-2.5 (3) MG/3ML SOLN ipratropium-albut ph[place]enix 32802916198 [facility] LEVOTHYROXINE SODIUM 50 MCG TABS 1 tablet by mouth once a day levothyroxine 04105226151 [facility] METFORMIN HCL 500 MG TABS 1 tablet by mouth once a day metformin 40391131295 [facility] MIRTAZAPINE 15 MG TABS 1 tablet by mouth once a day mirtazapine 55100107790 [facility] MYCOPHENOLATE MOFETIL 500 MG TABS 1 tablet by mouth twice a day mycophenolate mofetil 16325467129 [facility] PRAVASTATIN SODIUM 20 MG TABS 1 tablet by mouth once a day pravastatin 35871005852 [facility] URSODIOL 500 MG TABS 1 tablet by mouth twice a day ursodiol 77699149415 [facility] Medications Administered No information available. 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, SNOUT PULLER FALLRSKASSES yes Fall ris k assessment Lab [...] Detail Appointment 11:00 AM Rocky Patino MD, [facility], [facility] [address], [place], [address], Pending order CMP Pending order CBC with [...] (G221) CPT-Cooral Continue oral antibiotics 20 27/02/11 CPT-36494 CMP [id number] CBC with Differential 2024 CPT-28597 Itraconazole Level 1 CPT-53990 BNP CPT-elizabeth New Oral Antibiotic CPT-41268 CMP [id number] CBC with Differential 2024 CPT-02651 CD4 53816 Fungitell, serum (1-3) D-Glucan Assay 03/07/12 CPT-77916 Urine Culture & Sensitivity [id number], [id number] Urinalysis CPT-cf Fungal Culture & Sensitivity CPT-82250 BNP Vital Signs Date Name Value Unit [...]
--- OUTSIDE RECORDS SUMMARY | 2025-05-13 10:22 | XMS_ITS | Patient Health Record ---
Author Organization [facility] Address [address] [facility] [address] [id number] Care Team Providers Care Weatherization Crew Leader Name Role Phone Shauna Almanzar Primary Care Provider Emir Berger Unavailable [phone] Trinity Medeiros Unavailable [phone] Doretha Burns Unavailable [phone] Allergies Allergen (clinical drug ingredient) Drug/Non Drug Allergy documented on EMR Reaction Allergy Type Onset Date Status cephalexin Cephalexin Unknown Drug Allergy Activ e Results Component Value Reference Range Notes Rapid Strep- Inhouse Reviewed date:09/16/2024 01:23:25 PM Interpretation:Positive Performing Lab: Notes/Report: Positive strep test Pos P-Comprehensive Metabolic Pa tarah (CMP) (Not yet reviewed by provider) Interpretation:gluc 347, bun 29, Ca 8.5, prot 5.5 Performing Lab: Notes/Report: Test performed by [facility] [address] , [address], [place] [address] Kristian Trevino MD, Respiratory Clinician CLIA: [id number] Sodium 139 135-145 mmol/L Potassium 3.7 3.5-5.3 [...] 695 Performing Lab: Notes/Report: Test performed by [facility] [address] [place] [address] , [address], [place] [address] Kristian Trevino MD, Respiratory Clinician CLIA: [id number] Albumin/Creatinine Ratio, Urine 695 0-30 ug/mg Microalbumin, Urine, Random 16.4 Creatinine, Urine 23.6 Glycohemoglobin A1c (in hous e) Reviewed date:04/03/2025 09:15:19 AM Interpretation:11 Performing Lab: Notes/Report: 11 glycohemoglobin 11.1% 5 - 6.5 % H-BMP Reviewed date:09/19/2024 01:07:51 PM Interpretation:ordered by specialist Performing Lab: Notes/Report: NA 141 136-145 mmol/L K 3.8 3.5-5.1 mmoL/L CL 112 98-107 mmol/L CO2 21 22.0-30.0 mmol/L GAP 11.8 5-15 mEq/L BUN 22 9-20 mg/dl CREATT 1.20 0.66-1.25 mg/dl GFRAA 72 >60 ML/MIN EGFR 59 >60 ml/min GLU 242 74-100 mg/dl CA 8.4 8.4-10.2 mg/dl Urinalysis - Inhouse Reviewed date:01/18/2025 02:07:53 PM Interpretation: Performing Lab: Notes/Report: Color/Clarity red/cloudy Leuk Neg Nitrite Neg Urobili 3.2 Protein 2+ pH 5.5 Blood 3+ Sp. Gr. 1.015 Ketone Neg Bili 1+ Gluc 2+ H-BMP Reviewed date:09/15/2024 10:12:19 AM Interpretation:bun 25, Cr 1.3, gfr 54, gluc 370 Performing Lab: Notes/Report: NA 138 136-145 mmol/L K 4.3 3.5-5.1 mmoL/L CL 106 98-107 mmol/L CO2 26 22.0-30.0 mmol/L GAP 10.3 5-15 mEq/L BUN 25 9-20 mg/dl CREATT 1.30 0.66-1.25 mg/dl GFRAA 65 >60 ML/MIN EGFR 54 >60 ml/min GLU 370 74-100 mg/dl CA 9.0 8.4-10.2 mg/dl H-CBC Reviewed date:11/04/2024 10:00:59 AM Interpretation: Performing [...] 229 Performing Lab: Notes/Report: Test performed by [facility], [address] , [address], [place] [address] Kristian Trevino MD, Respiratory Clinician CLIA: [id number] Sodium 138 135-145 mmol/L Potassium 4.3 3.5-5.3 [...] want Performing Lab: Notes/Report: does not want Glycohemoglobin A1c (in hous e) Reviewed date:10/10/2024 [...] date:08/26/2024 02:54:53 PM Interpretation: Performing Lab: Notes/Report: URSLAN MANUAL DIFFERENTIAL MANUAL DIFF TCC 100 NEUT%M 86 42-76 % LYMPH%M 13 10-50 % MONO%M 1 2-9 % PLTE Normal RM Normal H-BMP Reviewed date:08/26/2024 02:54:53 PM Interpretation: Performing Lab: Notes/Report: NA 137 136-145 mmol/L K 3.7 3.5-5.1 mmoL/L Delta: 2.8 on 08/25/24-2251 CL 111 98-107 mmol/L CO2 20 22.0-30.0 mmol/L GAP 9.7 5-15 mEq/L BUN 27 9-20 mg/dl CREATT 1.40 0.66-1.25 mg/dl CRCLE 33 50-200 mL/min GFRAA 60 >60 ML/MIN EGFR 50 >60 ml/min GLU 148 74-100 mg/dl Delta: 121 on 08/25/24-2251 CA 8.3 8.4-10.2 mg/dl H-BMP Reviewed date:09/08/2024 11:20:09 AM Interpretation:cl 109, co2 21, bun 25, tip383 Performing Lab: Notes/Report: NA 137 136-145 mmol/L K 3.8 3.5-5.1 mmoL/L CL 109 98-107 mmol/L CO2 21 22.0-30.0 mmol/L GAP 10.8 5-15 mEq/L BUN 25 9-20 mg/dl CREATT 1.20 0.66-1.25 mg/dl GFRAA 72 >60 ML/MIN EGFR 59 >60 ml/min GLU 380 74-100 mg/dl CA 9.0 8.4-10.2 mg/dl H-TSH Reviewed date:11/13/2024 01:33:09 PM Interpretation:Normal Performing Lab: Notes/Report: TSH 3.05 0.465-4.68 uIU/mL Medications Medication SIG (Take, Route, Frequency, Duration) Notes Start Date End Date Status Levothyroxine Sodium 50 mcg 1 tablet by mouth daily; Duration: 90 days Active FreeStyle Leroy 3 [place] - as directed 05/12/2025 Active FreeStyle Leroy [...] W/U Status Risk Notes Problem Essential hypertension (69480703) Essential (primary) hypertension (I10) Active confirmed Problem Vitamin D deficiency (22637201) Vitamin D deficiency (E55.9) Active confirmed Problem Essential hypertension (06461921) Essential hypertension (I10) Active confirmed Problem Screening for malignant neoplasm of prostate (585624359) Prostate cancer screening (Z12.5) Active confirmed Problem Paroxysmal atrial fibrillation (799362198) Paroxysmal atrial fibrillation (I48.0) Active confirmed Problem Hyperglycemia due to type 2 diabetes mellitus (650246949049349) Type 2 diabetes mellitus with hyperglycemia (E11.65) Active confirmed Problem Mixed hyperlipidemia (805165283) Mixed hyperlipidemia (E78.2) Active confirmed Problem Hyperlipidemia (88050101) Hyperlipidemia, unspecified (E78.5) Active confirmed Problem Hereditary hemochromatosis (98148455) 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) Active confirmed Problem Chronic respiratory failure (23284563) Chronic respiratory failure with hypoxia (J96.11) Active confirmed Problem Autoimmune hepatitis (134756289) Autoimmune hepatitis (K75.4) Active confirmed Problem Cholelithiasis without obstruction (55184266) Calculus of gallbladder without cholecystitis without obstruction (K80.20) Active confirmed Problem Cochlear implant status (Z96.21) Active confirmed Problem Male erectile disorder (405480521) Male erectile disorder (N52.9) Active confirmed Problem Long-term current use of insulin (947297611) supervisor intermediates (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 (Z79.4) Active confirmed Problem Type II diabetes mellitus without complication (067759904) Type 2 diabetes mellitus without complication (E11.9) Active confirmed Problem Acquired hypothyroidism (152081461) Acquired hypothyroidism (E03.9) Active confirmed Problem Pulmonary fibrosis (43195713) Pulmonary fibrosis (J84.10) Active confirmed Problem Chronic fatigue syndrome (06872479) Chronic fatigue (R53.82) Active confirmed Problem COPD - Chronic obstructive pulmonary disease (93634266) Chronic obstructive pulmonary disease, unspecified COPD type (J44.9) Active confirmed Problem Pneumonia (955667778) Pneumonia of right lower lobe due to infectious organism (J18.9) Active confirmed Problem Hearing loss (51681406) Hearing loss, bilateral (H91.93) Active confirmed Problem Disorder of adrenal gland (18107773) 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) Active confirmed Problem Neutropenia (361260361) Neutropenia, unspecified type (D70.9) Active confirmed Problem Interstitial lung disease (817031824) Interstitial lung disease (J84.9) Active confirmed Problem Seasonal allergic rhinitis (456248832) Seasonal allergic rhinitis, unspecified allergic rhinitis trigger (J30.2) Active confirmed Problem Granulocytopenia (244600059) 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 confirmed Problem Systemic lupus erythematosus (05790596) Lupus (systemic lupus erythematosus) (M32.9) Active confirmed Problem Cardiac arrhythmia (436807013) Cardiac arrhythmia, unspecified cardiac arrhythmia type (I49.9) Active confirmed Problem Malnutrition, calorie (721885854) Caloric malnutrition (E46) Active confirmed Problem Benign prostatic hypertrophy without outflow obstruction (543248155) BPH without urinary obstruction (N40.0) Active confirmed Problem Allergic rhinitis caused by pollen (50962364) Acute seasonal allergic rhinitis due to pollen (J30.1) Active confirmed Problem Sensorineural hearing loss, bilateral (044833416) Sensorineural hearing loss (SNHL) of both ears (H90.3) Active confirmed Problem Cholestatic hepatitis (97064369) Cholestatic hepatitis (K75.89) Active confirmed Problem Skin sensation disturbance (73607346) Sensitive skin (R20.3) Active confirmed Problem Dilatation of aorta (93146956) Dilatation of aorta (I77.819) Active confirmed Problem Tomography - chest abnormal (547507613) Abnormal CT scan, chest (R93.89) Active confirmed Problem Left atrial dilatation (695814460) Left atrial dilatation (I51.7) Active confirmed Problem Chronic vascular insufficiency of intestine (959491124) 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 Problem Protein malnutrition (33807721) Protein malnutrition (E46) Active confirmed Vital Signs Heart Rate 85 /min 04/30/2025 Blood pressure diastolic 62 mm Hg 04/30/2025 Height 65 in 04/30/2025 Blood pressure systolic 130 mm Hg 04/30/2025 Weight 133.8 lbs 04/30/2025 BMI 22.26 kg/m2 04/30/2025 Encounters Encounter Location Date Provider Diagnosis [facility] [address] [id number] 05/26/2024 Shauna Almanzar Interstitial lung disease J84.9 ; Chronic fatigue R53.82 ; Chronic respiratory failure with hypoxia J96.11 and Acquired hypothyroidism E03.9 [place] [address] [id number] 09/05/2024 Shauna Almanzar Pneumonia of left lo wer lobe due to infectious organism J18.9 ; Interstitial lung disease J84.9 ; Chronic respiratory failure with hypoxia J96.11 ; 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 ; Autoimmune hepatitis K75.4 ; Protein malnutrition E46 and Caloric malnutrition E46 [facility] [address] [place] [id number] 09/16/2024 Trinity Medeiros Strep pharyngitis J0 2.0 and Oral candidiasis B37.[address] [id number] 10/09/2024 Shauna Almanzar Lesion of adrenal gl and E27.9 ; Essential hypertension I10 ; Type 2 diabetes mellitus without complication E11.9 ; Acquired hypothyroidism E03.9 ; Hearing loss, bilateral H91.93 ; Cochlear implant status Z96.21 ; Protein malnutrition E46 ; Chronic obstructive pulmonary disease, unspecified COPD type J44.9 and Encounter for immunization Z23 [facility] 12[address] [facility] [address] [place] [id number] 11/03/2024 Emir [place] Acute cough R05.1 [facility] [address] [place] [id number] 11/07/2024 Shauna Almanzar Type 2 diabetes aquilino itus without complication E11.9 ; Acquired hypothyroidism E03.9 and Hereditary hemochromatosis E83.110 [facility] [address] [place] [id number] 01/09/2025 Shauna Almanzar Type 2 diabetes aquilino itus without complication E11.9 ; Hereditary hemochromatosis E83.110 ; Cochlear implant status Z96.21 ; Chronic obstructive pulmonary disease, unspecified COPD type J44.9 ; Essential (primary) hypertension I10 ; Protein malnutrition E46 and Gross hematuria R31.0 [facility] [address] [place] [id number] 01/15/2025 Shauna Almanzar Interstitial lung disease J84.9 ; 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 ; Autoimmune hepatitis K75.4 ; Protein malnutrition E46 ; Cochlear implant status Z96.21 ; Type 2 diabetes mellitus without complication E11.9 and Hematuria R31.9 [facility] [address] [place] [id number] 02/11/2025 Emir [place] Type 2 diabetes aquilino itus with hyperglycemia E11.65 ; residential (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.4 ; Gross hematuria R31.0 and Body mass index (BMI) of 19.0 to 19.9 in adult Z68.1 [facility] 12[address] [facility] [address] [place] [id number] 03/13/2025 Doretha Burns Drug interaction Z78 .9 [facility] [address] [place] [id number] 04/02/2025 Shauna Almanzar Type 2 diabetes aquilino itus without complication E11.9 ; 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 ; Cholestatic hepatitis K75.89 ; supervisor intermediates (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.4 ; 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 ; Generalized weakness R53.1 and BMI 20.0-20.9, adult Z68.20 [facility] [address] [place], [place] [id number] 04/30/2025 Shauna Almanzar Type 2 diabetes aquilino itus with hyperglycemia E11.65 ; residential (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.4 ; Adrenal [...] adult Z68.22 and Cochlear implant status Z96.21 [facility] [address] [place], [place] [id number] 05/12/2025 Shauna Almanzar [facility] [address] [place], [place] [id number] 06/04/2024 Shauna Almanzar [facility] [address] [place], [place] [id number] 09/01/2024 Shauna Almanzar [facility] [address] [place] [id number] 09/04/2024 Shauna Almanzar [facility] [address] [place], [place] [id number] 09/08/2024 Shauna Almanzar [facility] [address] [place] [id number] 09/10/2024 Shauna Almanzar [facility] [address] [place] [id number] 09/15/2024 Shauna Almanzar [facility] [address] [place] [id number] 09/16/2024 Shauna Almanzar [facility] [address] [place] [id number] 09/25/2024 Shauna Almanzar [facility] [address] [place] [id number] 11/03/2024 Emir Berger [facility] [address] [place] [id number] 01/12/2025 Shauna Almanzar [facility] [address] [place], [place] [id number] 05/12/2025 Shauna Almanzar Assessments Encounter Date Diagnosis [...] to resume use of his CGM 02/11/2025 supervisor intermediates (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 (ICD-10 - Z79.4) 04/02/2025 Type 2 diabetes mellitus without complication (ICD-10 - E11.9) 03/13/2025 Drug interaction (ICD-10 - Z78.9) Discussed with Dr. Almanzar. Swelling is likely due from the interaction of itraconazole and budesonide. Will decrease budesonide dose to 2 tab daily until he sees GI on Sunday and will discuss dosing with them, as they are the ones managing this medication. 04/30/2025 Type 2 diabetes mellitus with hyperglycemia (ICD-10 - E11.65) 04/30/2025 residential (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 (ICD-10 - Z79.4) 04/30/2025 Adrenal abnormality (ICD-10 - E27.9) 04/02/2025 Adrenal abnormality (ICD-10 - E27.9) 02/11/2025 Gross hematuria (ICD-10 - R31.0) Plan follow up with Dr. Lund soon, after he sees ID and GI in the next week 01/15/2025 Autoimmune hepatitis (ICD-10 - K75.4) 01/09/2025 Cochlear implant status (ICD-10 - Z96.21) 11/07/2024 Hereditary hemochromatosis (ICD-10 - E83.110) 10/09/2024 [...] Z68.1) 04/02/2025 Cholestatic hepatitis (ICD-10 - K75.89) 04/30/2025 Interstitial lung disease (ICD-10 - J84.9) 04/30/2025 Essential (primary) hypertension (ICD-10 - I10) 04/02/2025 supervisor intermediates (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 (ICD-10 - Z79.4) 01/15/2025 Cochlear implant status (ICD-10 - Z96.21) 10/09/2024 Hearing loss, bilateral (ICD-10 - H91.93) 01/09/2025 Essential (primary) hypertension (ICD-10 - I10) 09/05/2024 Autoimmune hepatitis (ICD-10 - K75.4) 09/05/2024 Protein malnutrition (ICD-10 - E46) 01/09/2025 Protein malnutrition (ICD-10 - E46) 10/09/2024 Cochlear implant status (ICD-10 - Z96.21) 01/15/2025 Type 2 diabetes mellitus without complication (ICD-10 - E11.9) 04/02/2025 Histoplasmosis (ICD-10 - B39.9) 04/30/[address] scan, chest (ICD-10 - R93.89) 04/30/2025 Calculus of gallbladder without cholecystitis without obstruction (ICD-10 - K80.20) 04/02/2025 Generalized weakness (ICD-10 - R53.1) 01/09/2025 Gross hematuria (ICD-10 - R31.0) 01/15/2025 Hematuria (ICD-10 - R31.9) 10/09/2024 Protein malnutrition (ICD-10 - E46) 09/05/2024 [...] Sample 04/02/2025 Next Appt Details [facility]/03/[facility]25 11:45:00 AM, [address] [facility] 36 [facility], [address], [place], [id number], Provider Name:Shauna Merida , 07/06/2025 03:34:00 PM, [address] [facility], [address], [place], [id number], Insurance Providers Payer Name Payer Address Payer Phone Subscriber Number Group Number Insured Name Patient Relationship to Insured Coverage Start Date Coverage End Date [facility] [address] [address] [place] [address] [phone] [id number] HERMILA GOLDEN Self - patient is the insured Medical (General) History Medical History History ICD Code Seasonal Allergies Kidney Stones Steatohepatitis hemachromatosis,(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 Smalls and Dr. Thakur Atrial dysrrhythmia, see notes 2012 hearing loss 2013, hearing aids Impaired fasting glucose Gets yearly eye exams, 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 user name and password for portal: [email or web address]...[email or web address] type 2 diabetes, followed at [facility] 06/05/2019 CT: healing of R shahbaz ng infection w some residual fibrosis, scaring.Sm R pleural eff, L pleural thickening known cholelithiasis, see 01/2020 [place] Covid vaccine x2 Moderna, Nov and Dec 25 My Chart, user name: [email or web address] Passw: #[email or web address] bilateral iridectomies Sep 2021 histoplasmosis Surgical History Surgery Date(Month/Year) LT Knee Surgery 1999 Tonsillectomy Heart Cath 02/2012 Granuloma Annulare 2011,2013 cochlear implant on the right 08/11/2015 Colonoscopy 2008 cochlear implant, reimplant 06/14/2017 ablasion, cardiac 05/2019 cochlear implant, left side 04/07/2020 Cataracts 09/2021 Hospitalization History Reason Date(Month/Year) pneumonia 06/05-06/2010 implant removal 01/17/2017 Scalp Infection 02/23/2016 tachycardia 02/2012 chest pains fall 1984
--- OUTSIDE RECORDS SUMMARY | 2025-05-13 10:22 | XMS_ITS | Encounter Summary ---
Author Organization Healthcare Address [address] [place] [address] Care Team Providers Care Licensed Occupational Therapist Name Role Phone Rocky Almanzar MD Primary Care Provider [phone] Reason for Visit * Reason Comments Med Refill Encounter Details Date Type Department Care Team (Late st Contact Info) Description 05/04/2025 Refill [facility] Endocrinology [address] [place] [address] Jason Romero MD [address] [address] Type 2 diabetes mellitus with hyperglycemia, with long-term current use of insulin ([facility]) Social History Tobacco Use Types Packs/Day [...] Description 07/07/2025 11:40 AM EDT Office Visit [facility] Endocrinology [address] [place] [phone] Melany Rosales, DO [address] [place] [phone] 07/17/2025 2:00 PM EDT Office Visit [facility] Audiology [address] [place] [address] Lottie Lund, AuD [address] [place] [address] 01/05/2026 11:00 AM EST Office Visit [facility] [address], [address] [place] [address] Vivian Macias S, OD [address] [place] [address] documented as of this encounter Visit Diagnoses Diagnosis Type 2 diabetes mellitus with hyperglycemia, with long-term current use of insulin ([facility]) documented in this encounter Additional Health Concerns Infection Onset Date Last Indicated Resolved Time MRSA 03/30/2021 03/30/2021 Assessment Noted Time A fall risk assessment has been complete d for the patient 12/16/2024 12:16 PM EST A Body Mass Index follow-up plan has been documented for the patient 01/13/2025 8:11 PM EDT documented as of this encounter Care Teams Licensed Occupational Therapist Relationship Specialty Start Date End Date Rocky Almanzar MD [address] [place] [address] PCP - General 03/18/21 documented as of this encounter
--- OUTSIDE RECORDS SUMMARY | 2025-05-13 10:22 | XMS_ITS | Encounter Summary ---
Author Organization [facility] Address [address] [place] [address] Care Team Providers Care Emergency Room Technician Name Role Phone Rocky Almanzar MD Primary Care Provider [phone] Reason for Visit * Reason Onset Date Comments HCN - Patient Message 04/24/2025 Encounter Details Date Type Department Care Team (Late st Contact Info) Description 04/24/2025 Telephone [facility] Diabetes Education [address] [place] [phone] Rocky Almanzar MD [address] [place] [address] HCN - Patient Message Social History Tobacco [...] refill. Please contact patient Best contact number: [phone] (home) Optimal time of day to reach caller: Anytime Additional comments/information from caller: n/a Note: Please do not reply to this message. Follow-up communication and further actions as a result of this message need to be communicated with the patient directly, if the patient is not active onMyChart. If the patient is active on MyChart, they will receive notification of the communication/outcome via [email or web address]. documented in this encounter Plan of Treatment Upcoming Encounters Date Type Department Care Team (Late st Contact Info) Description 07/07/2025 11:40 AM EDT [facility] End[facility]ology [address] [place] [phone] Melany Rosales, DO [address] [place] [address] 07/17/2025 2:00 PM EDT Office Visit [facility] Audiology [address] [place] [address] Lottie Lund, AuD [address] [place] [address] 01/05/2026 11:00 AM EST Office Visit [facility] [place] [address], [address] [place] [address] Vivian Macias S, OD [address] [place] [address] documented as of this encounter [...] documented as of this encounter Care Teams Emergency Room Technician Relationship Specialty Start Date End Date Rocky Almanzar MD [address] [place] [address] PCP - General 03/18/21 documented as of this encounter
--- OUTSIDE RECORDS SUMMARY | 2025-05-13 10:22 | XMS_ITS | Clinical Summary ---
Author Organization [facility] Address [address] [place] [address] Care Team Providers Care Clinical Services Consultant Name Role Phone Rocky Almanzar MD Primary Care Provider [phone] Allergies Active Allergy Reactions Criticality Noted Date [...] Type Department Care Team Description 05/04/[address] [facility] [address] [place] [address] Jason Romero MD Type 2 diabetes mellitus with hyperglycemia, with long-term current use of insulin ([facility]) 04/28/2025 Telephone [facility] Endocrinology [address] [place] [address] Jason Romero MD 04/24/[address] [facility] Diabetes Education [address] [place] [address] Rocky Almanzar MD HCN - [...] 11:40 AM EDT Office Visit [facility] Endocrinology [address] [place] [address] Melany Rosales, DO [address] [place] [address] 07/17/2025 2:00 PM EDT Office Visit [facility] Audiology [address] 3rd [place] [address] Lottie Lund, AuD [address] [place] [address] 01/05/2026 11:00 AM EST Office Visit [facility] Center [address], [address] [place] [address] Vivian Macias S, OD [address] [place] [address] Health Maintenance Due Date Last [...] A1C 03/17/202509/2025, 05/23/2024, 11/22/2023, Additional history exists [id number] Vaccine (7 - Moderna risk 2023- season) [...] this topic Medical Devices Implanted Type Area General Administrator Device Identifier Shelf Expiration Date Model / Serial / Lot Roseline Stanleyk Advantage Ci Hifocus 1j Electrode--06/05 Implanted:06/05 by Ky Del Rio MD (Quantity not on file) Cochlear Left: Ear Remoov [id number] / [id number] / Description:Roseline 90K Advant age CI HiFocus 1J electrode--cochlear implant by Dr. Del Rio at [facility] on 06/21/2017, operative note in Epic. LEFT EAR. Roseline ULTRA 3D Cochlear implant REF: [id number] Serial number: [id number] Procedures Procedure Name Priority Date/Time Associated Diagnosis [...] A1C 7.6 <5.7% Non-Diabet ic % [place] [facility] Kit Lot Number [id number] [facility] [employer] Kit Expiration Date 10/04/26 [facility] Blood Venous blood specimen / Unknown 12/16/2024 12:27 PM EST Jason Romero MD POINT OF CARE TEST ENTER/ED IT ORDERABLES Final Result Performing Organization Address [facility]/State/[facility] Co de Phone Number HEALTHCARE LAB [address] [place] [phone] * COLONOSCOPY (08/03/2017) Anatomical Region Laterality Modality [...] Date Last Indicated MRSA 03/30/2021 03/30/2021 Insurance [facility] MEDICARE EYEMED Care Teams Clinical Services Consultant Relationship Specialty Start Date End Date Rocky Almanzar MD [address] [facility] [address] [place] [address] PCP - General 03/18/21
--- OUTSIDE RECORDS SUMMARY | 2025-05-13 10:22 | XMS_ITS | Encounter Summary ---
Author Organization Healthcare Address [address] [place] [address] Care Team Providers Care Brazing Furnace Feeder Name Role Phone Rocky Almanzar MD Primary Care Provider [phone] Encounter Details Date Type Department Care Team (Late st Contact Info) Description 04/28/[address] [facility] Endocrinology [address] [place] [address] Jason Romero MD [address] [place] [address] Social History Tobacco Use Types [...] with Derek's phone number for refills from [facility]. Pt's was on the phone and was able to take appropriate notes. 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 No other questions at this time. * Telephone Encounter - MARYLIN DALAL - 04/28/2025 12:05 PM EDT Pt requesting a call back regarding his Leroy system not seeming to be working. documented in this encounter Plan of Treatment Upcoming Encounters Date Type Department Care Team (Late st Contact Info) Description 07/07/2025 11:40 AM EDT Office Visit [facility] Endocrinology [address] [place] [address] Melany Rosales, DO [address] [place] [address] 07/17/2025 2:00 PM EDT Office [facility] Audiology [address], 3rd [place] [address] Lottie Lund, AuD [address] [place] [address] 01/05/2026 11:00 AM EST Office Visit [facility] Center [address], [address] [place] [address] Vivian Macias S, OD [address] [place] [address] documented as of this encounter [...] documented as of this encounter Care Teams Brazing Furnace Feeder Relationship Specialty Start Date End Date Rocky Almanzar MD [address] [place] [address] PCP - General 03/18/21 documented as of this encounter
--- OUTSIDE RECORDS SUMMARY | 2025-05-13 10:22 | XMS_ITS | Encounter Summary ---
Author Organization Healthcare Address [address] [place] [address] Care Team Providers Care Assistant Director Of Security Name Role Phone Rocky Almanzar MD Primary Care Provider [phone] Reason for Visit * Reason Comments Med Refill Encounter Details Date Type Department Care Team (Late Contact Info) Description 05/20/2021 Refill [facility] Endocrinology [address] [place] [address] Jason Romero MD [address] [address] Social History Tobacco Use Types [...] Description 07/07/2025 11:40 AM EDT [facility] [address] [place] [address] Melany Rosales, DO [address] [place] [address] 07/17/2025 2:00 PM EDT Office Visit [facility] Audiology [address], 3rd [place] [address] Lottie Lund, AuD [address] [place] [address] 01/05/2026 11:00 AM EST Office Visit [facility] Eye [place] [address], [address] [place] [address] Vivian Macias, OD [address] [place] [address] documented as of this encounter Visit Diagnoses Not on filedocumented in this encounter Additional Health Concerns Infection Onset Date Last Indicated Resolved Time MRSA 03/30/2021 03/30/2021 documented as of this encounter Care Teams Assistant Director Of Security Relationship Specialty Start Date End Date Rocky Almanzar MD [address] [place] [address] PCP - General 03/18/21 documented as of this encounter
[2025-05-13 13:03] LABS: Iron 80 ug/dL (49-181)
[2025-05-13 13:19] LABS: Total Iron Binding Capacity 363 ug/dL (261-462)
[2025-05-13 13:44] LABS: Ferritin 31.2 ng/ml (17.9-464)
[2025-05-13 14:03] LABS: PHA INR Fingerstick 2.5 (0.9-1.1)
== END 2025-05-13 15:16 ==
PROVIDERS: Internal Medicine Medical Oncology; PCP Family Medicine; Visit Provider Nurse Practitioner
DX: I48.0 Paroxysmal atrial fibrillation (principal); D72.819 Decreased white blood cell count, unspecified
CPT/HCPCS: 36415; 82728; 83540; 83550; 85610; 99211; G0463

== ENCOUNTER 2025-05-14 09:54 | Outpatient (CLI) | payer MEDICARE, SELFPAY ==
--- OUTSIDE RECORDS SUMMARY | 2025-03-13 10:15 | XMS_ITS ---
Author Organization [facility] Address 1210 [facility] [address] [id number] Care Team Providers Care Scuba Diving Instructor Name Role Phone Sahuna Almanzar Primary Care Provider Doretha Burns Unavailable [phone] Allergies Allergen (clinical drug ingredient) Drug/Non Drug Allergy documented on EMR Reaction Allergy Type Onset Date Status cephalexin Cephalexin Unknown Drug Allergy Activ e REASON FOR VISIT face is swollen per Alyssa at [facility], possible interaction with budesonide and itraconazole Medications [...] 03/13/2025 Encounters Encounter Location Date Provider Diagnosis [facility] [address] [place] [id number] 03/13/2025 Doretha Burns Drug interaction Z78 .9 [...] Up: with GI, Reason: Provider Name:Shauna fofana, 07/03/2025 11:45:00 AM, [address] [facility], [address], [place], [place], [id number], Provider Name:Shauna fofana, 07/06/2025 03:34:00 PM, [address], [address], [place], [place], [id number], Progress Notes * HERMILA GOLDENOB: [birth year] (75 yo M)Acc No.[id number]:03/13/2025 Progress Notes Patient: HERMILA BUCIO Provider: LUCIA Davis :1950 A ge:74 Y S ex:Male Date:03/13/2025 Address:[address] [facility] [address], [facility] , [id number] Pcp:Shauna Almanzar Subjective: * Chief Complaints: * 1 . face is swollen per Alyssa at [facility], possible interaction with budesonide and itraconazole. 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 * Procedure Codes: G2211 Complex e/m visit add on. * Electronic signature of LUCIA Dean on 05/14/2025 at 09:55 AM EDT Sign off status: Pending * Provider: LUCIA Davis Date: 0 03/13/2025 Generated for Marissa mendoza/Rei/eTransmitting on: 0 05/14/2025 09:55 AM EDT History and Physical Notes * [...]
--- OUTSIDE RECORDS SUMMARY | 2025-04-02 10:15 | XMS_ITS ---
Author Organization [facility] Address 1210 [facility] [address] [phone] Care Team Providers Care Chuck Wagon Driver Name Role Phone Shauna Almanzar Primary Care Provider Allergies Allergen (clinical drug ingredient) Drug/Non Drug Allergy documented on EMR Reaction Allergy Type Onset Date Status cephalexin Cephalexin Unknown Drug Allergy Activ e Results Component Value Reference Range Notes P-Comprehensive Metabolic Pa tarah (CMP) (Not yet reviewed by provider) Interpretation:gluc 347, bun 29, Ca 8.5, prot 5.5 Performing Lab: Notes/Report: Test performed by [employer] [facility]0 [facility] , [address], [place] [address] Kristian Trevino MD, Commercial Loan Manager CLIA: [id number] Sodium 139 135-145 mmol/L Potassium 3.7 3.5-5.3 [...] 695 Performing Lab: Notes/Report: Test performed by [employer] [address] [place] [address] , [address], [place] [address] Kristian Trevino MD, Commercial Loan Manager CLIA: [id number] Albumin/Creatinine Ratio, Urine 695 0-30 ug/m g Microalbumin, Urine, Random 16.4 Creatinine, Urine 23.6 Glycohemoglobin A1c (in hous e) Reviewed date:04/03/2025 09:15:19 AM Interpretation:11 Performing Lab: Notes/Report: 11 glycohemoglobin 11.1% 5 - 6.5 % Reason For Referral Reason weakness, lung disea se, adrenal disease Diagnosis 1 Generalized weakness (R53.1) [facility] Referring Provider First Name Shauna Beatty [...] Provider Diagnosis [facility] [address] [facility] [address] [place], [place] [phone] 04/02/2025 Shauna Almanzar Type 2 diabetes aquilino itus without complication E11.9 ; 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 ; Cholestatic hepatitis K75.89 ; MCC (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.4 ; 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 ; Generalized weakness R53.1 and BMI 20.0-20.9, adult Z68.20 Assessments Encounter Date Diagnosis (ICD Code) Assessment Notes Treatment Notes Treatment Clinical Notes Section Notes 04/02/2025 Type 2 diabetes mellitus without complication (ICD-10 - E11.9) 04/02/2025 Adrenal abnormality (ICD-10 - E27.9) 04/02/2025 Cholestatic hepatitis (ICD-10 - K75.89) 04/02/2025 MCC (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 (ICD-10 - Z79.4) [...] 4 Weeks, Reason: Provider Name:Shauna Merida er, 07/03/2025 11:45:00 AM, 1210 [facility] 36 [facility], [address], [place], [id number], Provider Name:Shauna Merida , 07/06/2025 03:34:00 PM, 1210 [facility] 36 [facility], [address], [place], [id number], Progress Notes * HERMILA GOLDENJORGEOB: [birth year] (75 yo M)Acc No.[id number]:04/02/2025 Progress Notes Patient: HERMILA BUCIO Provider: Shauna Almanzar M.D. :1950 A ge:75 Y S ex:Male Date:04/02/2025 Address:[address] [place] [address] 32 , [facility] Subjective: * Chief Complaints: * 1 . [...] 06/2014, user name and password for portal: [email or web address]...[email or web address], type 2 diabetes, followed at [facility], 06/05/2019 [...] eneralized weakness - R53.1 7 . B [place] 20.0-20.9, adult - Z68.20? Plan: * Treatment: [...] G 2211 Complex e/[place], [address] GLYCATED HEMOGLOBIN TEST, Modifiers: QW , G8752 [...] * Images: Billing Information: * Visit Code: 84295 Office Visit, Est Pt., Level 4. * Procedure Codes: G2211 Complex e/[place]. [address] GLYCATED HEMOGLOBIN TEST. Modifiers: QW G8752 MOST RECENT SYSTOLIC BP < 140MM HG. G8754 MOST RECENT DIASTOLIC BP < 90MM HG. 3046F HEMOGLOBIN A1C LEVEL > 9.0%. G8420 BMI<30 AND >=22 CALC & DOCU. 1036F TOBACCO NON-USER. 3017F COLORECTAL CA SCREEN DOC REV. * Electronic signature of Shauna Almanzar MD on 05/14/2025 at 09:56 AM EDT Sign off status: Pending * Provider: Shauna Almanzar M.D. Date: 0 04/02/2025 Generated for Marissa mendoza/Rei/Khurramitting on: 0 05/14/2025 09:56 AM EDT History and Physical Notes * [...]
--- OUTSIDE RECORDS SUMMARY | 2025-04-17 10:26 | XMS_ITS ---
Author Organization [facility] Address [address] [place] [address] [place] [address] Phone Care Team Providers Care Chief Scientific Officer Name Role Phone Sukumar CUEVAS, Rocky Griggs [ ] Conditions or Problems No information available. Medications Medication Instructions Start Date Stop Date Generic Name [facility] Provider budesonide 3 mg by mouth as needed as directed budesonide [facility] EZETIMIBE 10 MG TABS 1 tablet by mouth once a day ezetimibe [id number] [facility] XARELTO 20 MG TABS rivaroxaban 37298145986 [facility] PRAVASTATIN SODIUM 20 MG TABS 1 tablet by mouth once a day pravastatin 41639238983 [facility] aspirin 81 mg capsule 1 capsule by mouth once a day aspirin [facility] Medications Administered No information available. Allergies, Adverse Reactions, Alerts No information available. Results Date Name Value Unit Range Flag Description Office Visit: Office Visit: 11 SMOK STATUS Former smoker Tob acco smoking status MEDS REVIEW Done Documenta tion of current medications (procedure) Plan of Care Type Date Detail Appointment 11:00 AM Rocky Patino MD, [address] [facility], [address], [place], [address], Pending order CMP Pending order CBC with [...]
--- OUTSIDE RECORDS SUMMARY | 2025-04-30 10:00 | XMS_ITS ---
Author Organization [facility] Address [address]10 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) Referral [facility] Referring Provider First Name Shauna Beatty Referring [...] W/U Status Risk Notes Problem Cardiac arrhythmia (468405217) Cardiac arrhythmia, unspecified cardiac arrhythmia type (I49.9) Active confirmed Problem Chronic vascular insufficiency of intestine (058295387) 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 Vital Signs Weight 133.8 lbs 04/30/2025 Blood pressure systolic 130 mm Hg 04/30/20 25 Blood pressure diastolic 62 mm Hg 025 Heart Rate 85 /min 04/30/2025 Height 65 in 04/30/2025 BMI 22.26 kg/m2 04/30/2025 Encounters Encounter Location Date Provider Diagnosis [place] [facility] [address] [phone] 04/30/2025 Shauna Almanzar Type 2 diabetes aquilino itus with hyperglycemia E11.65 ; terminal supervisor (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.4 ; Adrenal [...] mellitus with hyperglycemia (ICD-10 - E11.65) 04/30/2025 terminal supervisor (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 (ICD-10 - Z79.4) [...] Up: 2 Months, Reason: Provider Name:Shauna Merida , 07/03/2025 11:45:00 AM, [address], [address], [place], [place], [id number], Provider Name:Shauna Merida , 07/06/2025 03:34:00 PM, [address], [address], [place], [place], [id number], Progress Notes * HERMILA GOLDENOB: [birth year] (75 yo M)Acc No.[id number]:04/30/2025 Progress Notes Patient: HERMILA BUCION Provider: Shauna Almanzar M.D. :1950 A ge:75 Y S ex:Male Date:04/30/2025 Address:[address] [place] [address] [address] [place] [address] , [id number] Subjective: * Chief Complaints: * 1 . 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 B HI 22.0-22.9, adult - Z68.22 1 3. C [...] * Images: Billing Information: * Visit Code: 48905 Office Visit, Est Pt., Level 4. * [...] Almanzar M.D. Date: 0 04/30/2025 Generated for Printi ng/Faxing/eTransmitting on: 0 05/14/2025 09:56 AM EDT History [...]
--- OUTSIDE RECORDS SUMMARY | 2025-05-14 09:55 | XMS_ITS | Clinical Summary ---
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) 01/09 Active 01/09 Echo Mccurdy 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/09 Active 01/09 Echo Mccurdy Acute pulmonary histoplasmosis capsulati Medications Medication Instructions Start Date Stop Date Generic Name [facility] Provider budesonide 3 mg by mouth as needed as directed budesonide [facility] EZETIMIBE 10 MG TABS 1 tablet by mouth once a day ezetimibe 29472122812 [facility] XARELTO 20 MG TABS rivaroxaban 19503720214 [facility] PRAVASTATIN SODIUM 20 MG TABS 1 tablet by mouth once a day pravastatin 88954756693 [facility] aspirin 81 mg capsule 1 capsule by mouth once a day aspirin [facility] ITRACONAZOLE 100 MG CAPS Take 2 capsule by mouth twice a day itraconazole 91135903585 [facility] ITRACONAZOLE 100 MG CAPS TAKE TWO CAPSULES BY MOUTH TWICE DAILY itraconazole 05892068826 Rocky Patino MD IPRATROPIUM-ALBU TEROL 0.5-2.5 (3) MG/3ML SOLN ipratropium-albut phoenix 19426125509 Amrita Hope JARDIANCE 10 MG TABS 1 tablet by mouth once a day empagliflozin 45978986743 Amrita Hope ITRACONAZOLE 100 MG CAPS Take 2 capsule by mouth twice a day itraconazole 80537343098 Rocky Patino MD XARELTO 20 MG TABS rivaroxaban 26687482110 Christina Braden aspirin 81 mg capsule 1 capsule by mouth once a day aspirin Laiba Sonu budesonide 9 mg by mouth as needed as directed budesonide Laiba Sonu VITAMIN D 25 MCG (1000 UT) TABS 1 tablet by mouth once a day cholecalciferol (vitamin d3) 92091090829 Laiba Sonu JARDIANCE 10 MG TABS 1 tablet by mouth once a day empagliflozin 33902683189 Laiba Sonu EZETIMIBE 10 MG TABS 1 tablet by mouth once a day ezetimibe 86496261473 Laiba Sonu insulin lispro protamine-lispro 100 unit/mL (75-25) subcutaneous susp insulin lispro protamin-lispro Laiba Sonu IPRATROPIUM-ALBU TEROL 0.5-2.5 (3) MG/3ML SOLN ipratropium-albut phoenix 19154623292 Laiba Sonu LEVOTHYROXINE SODIUM 50 MCG TABS 1 tablet by mouth once a day levothyroxine 13546203627 La[facility] Sonu METFORMIN HCL 500 MG TABS 1 tablet by mouth once a day metformin 10437553459 [facility] Sonu MIRTAZAPINE 15 MG TABS 1 tablet by mouth once a day mirtazapine 24261967088 [facility] Sonu MYCOPHENOLATE MOFETIL 500 MG TABS 1 tablet by mouth twice a day mycophenolate mofetil 05762948172 Laiba Sonu PRAVASTATIN SODIUM 20 MG TABS 1 tablet by mouth once a day pravastatin 73005292514 Laiba Sonu URSODIOL 500 MG TABS 1 tablet by mouth twice a day ursodiol 99514010693 Laiba Sonu Medications Administered No information available. 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, SHELTER DIRECTOR FALLRSKASSES yes Fall ris k assessment Lab [...] Detail Appointment 11:00 AM Rocky Patino MD, [facility], [facility] [address], [place], [address], Pending order CMP Pending order CBC with [...] (G221) CPT-Cooral Continue oral antibiotics 20 27/02/11 CPT-05954 CMP [id number] CBC with Differential 2024 CPT-20215 Itraconazole Level 1 CPT-91059 BNP CPT-elizabeth New Oral Antibiotic CPT-44511 CMP [id number] CBC with Differential 2024 CPT-72203 CD4 39892 Fungitell, serum (1-3) D-Glucan Assay 03/07/12 CPT-15420 Urine Culture & Sensitivity [id number], [id number] Urinalysis CPT-cf Fungal Culture & Sensitivity CPT-05980 BNP Vital Signs Date Name Value Unit [...]
--- OUTSIDE RECORDS SUMMARY | 2025-05-14 09:56 | XMS_ITS | Encounter Summary ---
Author Organization [facility] Address [address] [place] [address] Care Team Providers Care Pasteurizing Machine Operator Name Role Phone Rocky Almanzar MD Primary Care Provider [phone] Reason for Visit * Reason Onset Date Comments HCN - Patient Message 04/24/2025 Encounter Details Date Type Department Care Team (Late st Contact Info) Description 04/24/2025 Telephone [facility] Diabetes Education [address] [place] [address] Rocky Almanzar MD [address] [place] [address] HCN - Patient Message Social History Tobacco [...] refill. Please contact patient Best contact number: [phone] (home) Optimal time of day to reach caller: Anytime Additional comments/information from caller: n/a Note: Please do not reply to this message. Follow-up communication and further actions as a result of this message need to be communicated with the patient directly, if the patient is not active onMyChart. If the patient is active on MyChart, they will receive notification of the communication/outcome via [employer]. documented in this encounter Plan of Treatment Upcoming Encounters Date Type Department Care Team (Late st Contact Info) Description 07/07/2025 11:40 AM EDT [facility] End[facility] [address] [place] [address] Melany Rosales, DO [address] [place] [address] 07/17/2025 2:00 PM EDT Office Visit [facility] Audiology [address], 3rd [place] [address] Lottie Lund, AuD [address] [place] [address] 01/05/2026 11:00 AM EST Office Visit [facility] Eye [place] [address], [address] [place] [address] Vivian Macias S, OD [address] [place] [address] documented as of this encounter [...] documented as of this encounter Care Teams Pasteurizing Machine Operator Relationship Specialty Start Date End Date Rocky Almanzar MD [address] [place] [address] PCP - General 03/18/21 documented as of this encounter
--- OUTSIDE RECORDS SUMMARY | 2025-05-14 09:56 | XMS_ITS | Encounter Summary ---
Author Organization [facility] Address [address] [place] [address] Care Team Providers Care Adjunct Physical Education Instructor Name Role Phone Rocky Almanzar MD Primary Care Provider [phone] Reason for Visit * Reason Comments Med Refill Encounter Details Date Type Department Care Team (Late Contact Info) Description 05/20/2021 Refill [facility] Endocrinology [address] [place] [address] Jason Romero MD [address] [address] Social History Tobacco Use Types [...] Description 07/07/2025 11:40 AM EDT [facility] [address] [place] [address] Melany Rosales, DO [address] [place] [address] 07/17/2025 2:00 PM EDT Office Visit [facility] Audiology [address], 3rd [place] [address] Lottie Lund, AuD [address] [place] [address] 01/05/2026 11:00 AM EST Office Visit [facility] Eye [place] [address], [address] [place] [address] Vivian Macias, OD [address] [place] [address] documented as of this encounter Visit Diagnoses Not on filedocumented in this encounter Additional Health Concerns Infection Onset Date Last Indicated Resolved Time MRSA 03/30/2021 03/30/2021 documented as of this encounter Care Teams Adjunct Physical Education Instructor Relationship Specialty Start Date End Date Rocky Almanzar MD [address] [place] [address] PCP - General 03/18/21 documented as of this encounter
--- OUTSIDE RECORDS SUMMARY | 2025-05-14 09:56 | XMS_ITS | Encounter Summary ---
Author Organization Healthcare Address [address] [place] [address] Care Team Providers Care Desulphuring Operator Name Role Phone Rocky Almanzar MD Primary Care Provider [phone] Reason for Visit * Reason Comments Med Refill Encounter Details Date Type Department Care Team (Late st Contact Info) Description 05/04/2025 Refill [facility] Endocrinology [address] [place] [address] Jason Romero MD [address] [address] Type 2 diabetes mellitus with hyperglycemia, with long-term current use of insulin ([facility]) Social History Tobacco Use Types [...] Description 07/07/2025 11:40 AM EDT Office Visit [facility] Endocrinology [address] [place] [address] Melany Rosales, DO [address] [place] [address] 07/17/2025 2:00 PM EDT Office Visit [facility] Audiology [address], 3[address] [place] [address] Lottie Lund, AuD [address] [place] [address] 01/05/2026 11:00 AM EST Office Visit [facility] Eye Center [address], [address] [place] [address] Vivian Macias S, OD [address] [place] [address] documented as of this encounter Visit Diagnoses Diagnosis Type 2 diabetes mellitus with hyperglycemia, with long-term current use of insulin ([facility]) documented in this encounter Additional Health Concerns Infection Onset Date Last Indicated Resolved Time MRSA 03/30/2021 03/30/2021 Assessment Noted Time A fall risk assessment has been complete d for the patient 12/16/2024 12:16 PM EST A Body Mass Index follow-up plan has been documented for the patient 01/13/2025 8:11 PM EDT documented as of this encounter Care Teams Desulphuring Operator Relationship Specialty Start Date End Date Rocky Almanzar MD [address] [place] [address] PCP - General 03/18/21 documented as of this encounter
--- OUTSIDE RECORDS SUMMARY | 2025-05-14 09:56 | XMS_ITS | Encounter Summary ---
Author Organization [facility] Address [address] [place] [address] Care Team Providers Care Cotton Opener Name Role Phone Rocky Almanzar MD Primary Care Provider [phone] Reason for Visit * Reason Comments Med Refill Encounter Details Date Type Department Care Team (Late Contact Info) Description 11/10/2021 Refill [facility] Endocrinology [address] [place] [address] Jason Romero MD [address] [address] Type 2 diabetes mellitus with other specified complication, with long-term current use of insulin ([facility]) Social History Tobacco Use Types [...] EDT Office Visit [facility] Endocrinology [address] [place] [address] Melany Rosales, DO [address] [place] [address] 07/17/2025 2:00 PM EDT Office Visit [facility] Audiology [address], [address] [place] [address] Lottie Lund, AuD [address] [place] [address] 01/05/2026 11:00 AM EST Office Visit [facility] Eye [place] [address] [place] [address] Vivian Macias S, OD [address] [place] [address] documented as of this encounter Visit Diagnoses Diagnosis Type 2 diabetes mellitus with other specified complication, with long-term current use of insulin ([facility]) documented in this encounter Additional Health Concerns Infection Onset Date Last Indicated Resolved Time MRSA 03/30/2021 03/30/2021 Assessment Noted Time A fall risk assessment has been complete d for the patient 10/11/2021 3:35 PM EST documented as of this encounter Care Teams Cotton Opener Relationship Specialty Start Date End Date Rocky Almanzar MD [address] [place] [address] PCP - General 03/18/21 documented as of this encounter
--- OUTSIDE RECORDS SUMMARY | 2025-05-14 09:57 | XMS_ITS | Clinical Summary ---
Author Organization [facility] Address [address] [place] [address] Care Team Providers Care Financial Project Manager Name Role Phone Rocky Almanzar MD Primary Care Provider Allergies Active Allergy Reactions Criticality Noted Date [...] Type Department Care Team Description 05/04/2025 [facility] [address] [place] [address] Jason Romero MD Type 2 diabetes mellitus with hyperglycemia, with long-term current use of insulin ([facility]) 04/28/2025 Telephone [facility] Endocrinology [address] [place] [address] Jason Romero MD 04/24/2025 Telephone [facility] [place] [facility] Diabetes Education [address] [place] [address] Rocky Almanzar MD HCN - [...] 11:40 AM EDT Office Visit [facility] Endocrinology [address] [place] [address] Melany Rosales, DO [address] [place] [address] 07/17/2025 2:00 PM EDT Office Visit [facility] Audiology [address], 3[address] [place] [address] Lottie Lund, AuD [address] [place] [address] 01/05/2026 11:00 AM EST Office Visit [facility] Eye Center [address] [place] [address] Vivian Macias S, OD [address] [place] [address] Health Maintenance Due Date Last [...] A1C 03/17/202509/2025, 05/23/2024, 11/22/2023, Additional history exists [id number] Vaccine (7 - Moderna risk 2023- season) [...] this topic Medical Devices Implanted Type Area Repairer Welding Systems And Equipment Device Identifier Shelf Expiration Date Model / Serial / Lot Roseline Stanleyk Advantage Ci Hifocus 1j Electrode--06/05 Implanted:06/05 by Ky Del Rio MD (Quantity not on file) Cochlear Left: Ear Wylio [id number] / [id number] / Description:Roseline 90K Advant age CI HiFocus 1J electrode--cochlear implant by Dr. Del Rio at [facility] on 06/21/2017, operative note in Epic. LEFT EAR. Roseline ULTRA 3D Cochlear implant REF: [id number] Serial number: [id number] Procedures Procedure Name Priority Date/Time Associated Diagnosis [...] A1C 7.6 <5.7% Non-Diabet ic % [place] [employer] [facility] Kit Lot Number [id number] [facility] [employer] [facility] Kit Expiration Date 10/04/26 [employer] [facility] Blood Venous blood specimen / Unknown 12/16/2024 12:27 PM EST Jason Romero MD POINT OF CARE TEST ENTER/ED IT ORDERABLES Final Result Performing Organization Address [facility]/State/[facility] Co de Phone Number HEALTHCARE LAB [address] [place] [phone] * COLONOSCOPY (08/03/2017) Anatomical Region Laterality Modality [...] Date Last Indicated MRSA 03/30/2021 03/30/2021 Insurance [facility] [place] [address] EYEMED Care Teams Financial Project Manager Relationship Specialty Start Date End Date Rocky Almanzar MD [address] [facility] [address] [place] [address] PCP - General 03/18/21
--- OUTSIDE RECORDS SUMMARY | 2025-05-14 09:57 | XMS_ITS | Encounter Summary ---
Author Organization Healthcare Address [address] [place] [address] Care Team Providers Care Fire Extinguisher Repairer Inspector Name Role Phone Rocky Almanzar MD Primary Care Provider [phone] Encounter Details Date Type Department Care Team (Late st Contact Info) Description 04/28/2025 Telephone [facility] Endocrinology [address] [place] [address] Jason Romero MD [address] [place] [address] Social History Tobacco Use Types [...] with Derek's phone number for refills from [employer]. Pt's was on the phone and was able to take appropriate notes. 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 on [...] 07/07/2025 11:40 AM EDT Office Visit [facility] Endocrinology [address] [place] [address] Melany Rosales, DO [address] [place] [address] 07/17/2025 2:00 PM EDT Office Visit [facility] Audiology [address], [address] [place] [address] Lottie Lund, AuD [address] [place] [address] 01/05/2026 11:00 AM EST Office Visit [facility] [address], [address] [place] [address] Vivian Macias S, OD [address] [place] [address] documented as of this [...] documented as of this encounter Care Teams Fire Extinguisher Repairer Inspector Relationship Specialty Start Date End Date Rocky Almanzar MD [address] [place] [address] PCP - General 03/18/21 documented as of this encounter
--- OUTSIDE RECORDS SUMMARY | 2025-05-14 09:57 | XMS_ITS | Patient Health Record ---
Author Organization [facility] Address [address] [facility] [address] [id number] Care Team Providers Care Agriculture Teacher Name Role Phone Shauna Almanzar Primary Care Provider Emir Berger Unavailable [phone] Trinity Medeiros Unavailable [phone] Doretha Burns Unavailable [phone] Allergies Allergen (clinical drug ingredient) Drug/Non Drug Allergy documented on EMR Reaction Allergy Type Onset Date Status cephalexin Cephalexin Unknown Drug Allergy Activ e Results Component Value Reference Range Notes P-Comprehensive Metabolic Pa tarah (CMP) (Not yet reviewed by provider) Interpretation:gluc 347, bun 29, Ca 8.5, prot 5.5 Performing Lab: Notes/Report: Test performed by [facility] [address] [place] [address] , [address], [place] [address] Kristian Trevino MD, Acid Filler CLIA: [id number] Sodium 139 135-145 mmol/L Potassium 3.7 3.5-5.3 [...] 695 Performing Lab: Notes/Report: Test performed by [facility] , [address], [place] [address] Kristian Trevino MD, Acid Filler CLIA: [id number] Albumin/Creatinine Ratio, Urine 695 0-30 ug/mg Microalbumin, [...] 0.1 0.0-0.4 K/mm3 BA# 0.0 0-0.2 K/mm3 Rapid Strep- Inhouse Reviewed date:09/16/2024 01:23:25 PM Interpretation:Positive Performing Lab: Notes/Report: Positive strep test Pos H-TSH Reviewed date:11/13/2024 01:33:09 PM Interpretation:Normal Performing Lab: Notes/Report: TSH 3.05 0.465-4.68 uIU/mL H-BMP Reviewed date:09/19/2024 01:07:51 PM Interpretation:ordered by [...] mg/dl CA 9.0 8.4-10.2 mg/dl H-BMP Reviewed date:09/08/2024 11:20:09 AM Interpretation:cl 109, co2 21, bun 25, hrz554 Performing Lab: Notes/Report: NA 137 136-145 mmol/L K 3.8 3.5-5.1 mmoL/L CL 109 98-107 mmol/L CO2 21 22.0-30.0 mmol/L GAP 10.8 5-15 mEq/L BUN 25 9-20 mg/dl CREATT 1.20 0.66-1.25 mg/dl GFRAA 72 >60 ML/MIN EGFR 59 >60 ml/min GLU 380 74-100 mg/dl CA 9.0 8.4-10.2 mg/dl CXR Reviewed date:11/04/2024 09:39:36 AM Interpretation:chronic findings, nothing new Performing Lab: Notes/Report: chronic findings, nothing new Urinalysis - Inhouse Reviewed date:01/18/2025 02:07:53 PM Interpretation: Performing Lab: Notes/Report: Color/Clarity red/cloudy Leuk Neg Nitrite Neg Urobili 3.2 Protein 2+ pH 5.5 Blood 3+ Sp. Gr. 1.015 Ketone Neg Bili 1+ Gluc 2+ Glycohemoglobin A1c (in hous e) Reviewed date:10/10/2024 10:20:31 AM Interpretation: Performing Lab: Notes/Report: glycohemoglobin 7.7% 5 - 6.5 % H-BMP Reviewed date:08/26/2024 02:54:53 PM Interpretation: Performing [...] 121 on 08/25/24 CA 8.3 8.4-10.2 mg/dl H-DIFF Reviewed date:08/26/2024 02:54:53 PM Interpretation: Performing Lab: Notes/Report: RUSLAN MANUAL DIFFERENTIAL MANUAL DIFF TCC 100 NEUT%M 86 42-76 % LYMPH%M 13 10-50 % MONO%M 1 2-9 % PLTE Normal RM Normal H-CBC Reviewed date:08/26/2024 02:54:53 PM Interpretation: Performing [...] 0.0 0.0-0.4 K/mm3 BA# 0.0 0-0.2 K/mm3 Ultrasound : Bladder scan Reviewed date:04/20/2025 10:25:30 AM Interpretation:does not want Performing Lab: Notes/Report: does not want P-Comprehensive Metabolic Pa tarah (CMP) Reviewed date:01/12/2025 11:34:53 AM Interpretation:gluc 144, bun 30, Cr 1.35, gfr 55, alk phos 229 Performing Lab: Notes/Report: Test performed by [facility] [address] [place] [address] , [address], [place] [address] Kristian Trevino MD, Acid Filler CLIA: [id number] Sodium 138 135-145 mmol/L Potassium 4.3 3.5-5.3 [...] 1.015 Ketone Neg Bili Neg Gluc 2+ Medications Medication SIG (Take, Route, Frequency, Duration) Notes Start Date End Date Status Levothyroxine Sodium 50 mcg 1 tablet by mouth daily; Duration: 90 days Active FreeStyle Leroy 3 [place] - as directed 05/12/2025 Active FreeStyle Leroy [...] W/U Status Risk Notes Problem Essential hypertension (71704422) Essential (primary) hypertension (I10) Active confirmed Problem Vitamin D deficiency (61892607) Vitamin D deficiency (E55.9) Active confirmed Problem Essential hypertension (42718740) Essential hypertension (I10) Active confirmed Problem Screening for malignant neoplasm of prostate (439464699) Prostate cancer screening (Z12.5) Active confirmed Problem Paroxysmal atrial fibrillation (381623494) Paroxysmal atrial fibrillation (I48.0) Active confirmed Problem Hyperglycemia due to type 2 diabetes mellitus (683236921565952) Type 2 diabetes mellitus with hyperglycemia (E11.65) Active confirmed Problem Mixed hyperlipidemia (635210050) Mixed hyperlipidemia (E78.2) Active confirmed Problem Hyperlipidemia (94452419) Hyperlipidemia, unspecified (E78.5) Active confirmed Problem Hereditary hemochromatosis (31079176) 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) Active confirmed Problem Chronic respiratory failure (99694263) Chronic respiratory failure with hypoxia (J96.11) Active confirmed Problem Autoimmune hepatitis (902334309) Autoimmune hepatitis (K75.4) Active confirmed Problem Cholelithiasis without obstruction (52655705) Calculus of gallbladder without cholecystitis without obstruction (K80.20) Active confirmed Problem Cochlear implant status (Z96.21) Active confirmed Problem Male erectile disorder (162725842) Male erectile disorder (N52.9) Active confirmed Problem Long-term current use of insulin (031279877) half-way (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 (Z79.4) Active confirmed Problem Type II diabetes mellitus without complication (473965630) Type 2 diabetes mellitus without complication (E11.9) Active confirmed Problem Acquired hypothyroidism (563974483) Acquired hypothyroidism (E03.9) Active confirmed Problem Pulmonary fibrosis (61274312) Pulmonary fibrosis (J84.10) Active confirmed Problem Chronic fatigue syndrome (02233801) Chronic fatigue (R53.82) Active confirmed Problem COPD - Chronic obstructive pulmonary disease (36491384) Chronic obstructive pulmonary disease, unspecified COPD type (J44.9) Active confirmed Problem Pneumonia (411280111) Pneumonia of right lower lobe due to infectious organism (J18.9) Active confirmed Problem Hearing loss (33168085) Hearing loss, bilateral (H91.93) Active confirmed Problem Disorder of adrenal gland (26741521) 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) Active confirmed Problem Neutropenia (856694291) Neutropenia, unspecified type (D70.9) Active confirmed Problem Interstitial lung disease (227118002) Interstitial lung disease (J84.9) Active confirmed Problem Seasonal allergic rhinitis (266681809) Seasonal allergic rhinitis, unspecified allergic rhinitis trigger (J30.2) Active confirmed Problem Granulocytopenia (613459170) 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 confirmed Problem Systemic lupus erythematosus (51592927) Lupus (systemic lupus erythematosus) (M32.9) Active confirmed Problem Cardiac arrhythmia (601716245) Cardiac arrhythmia, unspecified cardiac arrhythmia type (I49.9) Active confirmed Problem Malnutrition, calorie (264452272) Caloric malnutrition (E46) Active confirmed Problem Benign prostatic hypertrophy without outflow obstruction (914253285) BPH without urinary obstruction (N40.0) Active confirmed Problem Allergic rhinitis caused by pollen (10317624) Acute seasonal allergic rhinitis due to pollen (J30.1) Active confirmed Problem Sensorineural hearing loss, bilateral (898404038) Sensorineural hearing loss (SNHL) of both ears (H90.3) Active confirmed Problem Cholestatic hepatitis (79103879) Cholestatic hepatitis (K75.89) Active confirmed Problem Skin sensation disturbance (13954995) Sensitive skin (R20.3) Active confirmed Problem Dilatation of aorta (43659778) Dilatation of aorta (I77.819) Active confirmed Problem Tomography - chest abnormal (116765053) Abnormal CT scan, chest (R93.89) Active confirmed Problem Left atrial dilatation (360612566) Left atrial dilatation (I51.7) Active confirmed Problem Chronic vascular insufficiency of intestine (311115820) 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 Problem Protein malnutrition (23543034) Protein malnutrition (E46) Active confirmed Vital Signs Heart Rate 85 /min 04/30/2025 Blood pressure diastolic 62 mm Hg 04/30/2025 Height 65 in 04/30/2025 Blood pressure systolic 130 mm Hg 04/30/2025 Weight 133.8 lbs 04/30/2025 BMI 22.26 kg/m2 04/30/2025 Encounters Encounter Location Date Provider Diagnosis [facility] [address] [id number] 05/26/2024 Shauna Almanzar Interstitial lung disease J84.9 ; Chronic fatigue R53.82 ; Chronic respiratory failure with hypoxia J96.11 and Acquired hypothyroidism E03.9 [place] [address] [id number] 09/05/2024 Shauna Almanzar Pneumonia of left lo wer lobe due to infectious organism J18.9 ; Interstitial lung disease J84.9 ; Chronic respiratory failure with hypoxia J96.11 ; 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 ; Autoimmune hepatitis K75.4 ; Protein malnutrition E46 and Caloric malnutrition E46 [facility] [address] [place] [id number] 09/16/2024 Trinity Medeiros Strep pharyngitis J0 2.0 and Oral candidiasis B37.[address] [id number] 10/09/2024 Shauna Almanzar Lesion of adrenal gl and E27.9 ; Essential hypertension I10 ; Type 2 diabetes mellitus without complication E11.9 ; Acquired hypothyroidism E03.9 ; Hearing loss, bilateral H91.93 ; Cochlear implant status Z96.21 ; Protein malnutrition E46 ; Chronic obstructive pulmonary disease, unspecified COPD type J44.9 and Encounter for immunization Z23 [facility] [address] [facility] [address] [place] [id number] 11/03/2024 Emir Newport Acute cough R05.1 [facility] [address] [place] [id number] 11/07/2024 Shauna Almanzar Type 2 diabetes aquilino itus without complication E11.9 ; Acquired hypothyroidism E03.9 and Hereditary hemochromatosis E83.110 [facility] [address] [place] [id number] 01/09/2025 Shauna Almanzar Type 2 diabetes aquilino itus without complication E11.9 ; Hereditary hemochromatosis E83.110 ; Cochlear implant status Z96.21 ; Chronic obstructive pulmonary disease, unspecified COPD type J44.9 ; Essential (primary) hypertension I10 ; Protein malnutrition E46 and Gross hematuria R31.0 [facility] [address] [place] [id number] 01/15/2025 Shauna Almanzar Interstitial lung disease J84.9 ; 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 ; Autoimmune hepatitis K75.4 ; Protein malnutrition E46 ; Cochlear implant status Z96.21 ; Type 2 diabetes mellitus without complication E11.9 and Hematuria R31.9 [facility] [address] [place] [id number] 02/11/2025 Emir Newport Type 2 diabetes aquilino itus with hyperglycemia E11.65 ; 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 ; Gross hematuria R31.0 and Body mass index (BMI) of 19.0 to 19.9 in adult Z68.1 [facility] [address] [facility] [address] [place] [id number] 03/13/2025 Doretha Burns Drug interaction Z78 .9 [facility] [address] [place] [id number] 04/02/2025 Shauna Almanzar Type 2 diabetes aquilino itus without complication E11.9 ; 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 ; Cholestatic hepatitis K75.89 ; 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 ; 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 ; Generalized weakness R53.1 and BMI 20.0-20.9, adult Z68.20 [facility] [address] [place], [place] [id number] 04/30/2025 Shauna Almanzar Type 2 diabetes aquilino itus with hyperglycemia E11.65 ; half-way (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.4 ; Adrenal [...] adult Z68.22 and Cochlear implant status Z96.21 [facility] [address] [place], [place] [id number] 05/12/2025 Shauna Almanzar [facility] [address] [place], [place] [id number] 06/04/2024 Shauna Almanzar [facility] [address] [place] [id number] 09/01/2024 Shauna Almanzar [facility] [address] [place] [id number] 09/04/2024 Shauna Almanzar [facility] [address] [place] [id number] 09/08/2024 Shauna Almanzar [facility] [address] [place] [id number] 09/10/2024 Shauna Almanzar [facility] [address] [place] [id number] 09/15/2024 Shauna Almanzar [facility] [address] [place] [id number] 09/16/2024 Shauna Almanzar [facility] [address] [place] [id number] 09/25/2024 Shauna Almanzar [facility] [address] [place] [id number] 11/03/2024 Emir Berger [facility] [address] [place] [id number] 01/12/2025 Shauna Almanzar [facility] [address] [place] [id number] 05/12/2025 Shauna Almanzar Assessments Encounter Date Diagnosis [...] to resume use of his CGM 02/11/2025 half-way (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 (ICD-10 - [...] mellitus with hyperglycemia (ICD-10 - E11.65) 04/30/2025 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, [address], [place], [id number], Provider Name:Shauna Merida , 07/06/2025 03:34:00 PM, [address] 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 Smalls and Dr. Thakur Atrial dysrrhythmia, see notes 2012 hearing loss 2013, hearing aids Impaired fasting glucose Gets yearly eye exams, [facility] Questionable Dx Lupus erythematosus [...]
[2025-05-14] MEDS: ALBUTEROL 0.083% 2.5 MG/3 ML NEB IH (15:20)
== END 2025-05-14 23:59 | disposition home or self-care (01) ==
LOC: RT 09:54
PROVIDERS: PCP Family Medicine; Visit Provider Internal Medicine Pulmonary Disease
DX: J44.9 Chronic obstructive pulmonary disease, unspecified (principal); R94.2 Abnormal results of pulmonary function studies
CPT/HCPCS: 94060; 94618; 94726; 94729

== ENCOUNTER 2025-06-04 14:18 | Outpatient (CLI) | payer MEDICARE, SELFPAY ==
--- OUTSIDE RECORDS SUMMARY | 2025-03-13 10:15 | XMS_ITS ---
Author Organization [facility] Address 1210 [facility] [address] [phone] Care Team Providers Care Piece Dyeing Machine Tender Name Role Phone Shauna Almanzar Primary Care Provider Doretha Burns Unavailable [phone] Allergies Allergen (clinical drug ingredient) Drug/Non Drug Allergy documented on EMR Reaction Allergy Type Onset Date Status cephalexin Cephalexin Unknown Drug Allergy Activ e REASON FOR VISIT face is swollen per Alyssa at [facility], possible interaction with budesonide and itraconazole [...] 03/13/2025 Encounters Encounter Location Date Provider Diagnosis [facility] [address] [place] [id number] 03/13/2025 Doretha Burns Drug interaction Z78 .9 [...] 07/03/2025 11:45:00 AM, [address] [facility], [address], [place], [place], [id number], Provider Name:Shauna fofana, 07/06/2025 03:34:00 PM, [address], [address], [place], [place], [phone], Progress Notes * HERMILA GOLDEN: [birth year] (75 yo M)Acc No.[id number]:03/13/2025 Progress Notes Patient: HERMILA BUCIO Provider: LUCIA Davis :1950 A ge:74 Y S ex:Male Date:03/13/2025 Address:[address] [facility] [address], [facility] , [id number] Pcp:Shauna Almanzar Subjective: * Chief Complaints: * 1 . face is swollen per Alyssa at [facility], possible interaction with budesonide and itraconazole. [...] glucose, Gets yearly eye exams, 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 * Procedure Codes: G2211 Complex e/m visit add on. * Electronic signature of LUCIA Dean on 06/04/2025 at 02:24 PM EDT Sign off status: Pending * Provider: LUCIA Davis Date: 0 03/13/2025 Generated for Marissa mendoza/Rei/eTransmitting on: 0 06/04/2025 02:24 PM EDT History and Physical Notes * [...]
--- OUTSIDE RECORDS SUMMARY | 2025-04-02 10:15 | XMS_ITS ---
Author Organization [facility] Address 1210 [facility] [address] [phone] Care Team Providers Care Customer Relations Consultant Name Role Phone Shauna Almanzar Primary Care Provider [phone] Allergies Allergen (clinical drug ingredient) Drug/Non Drug [...] 5.5 Performing Lab: Notes/Report: Test performed by [employer] [facility]0 [facility] , [address], [place] [address] Kristian Trevino MD, System Integration Engineer CLIA: [id number] Sodium 139 135-145 mmol/L Potassium 3.7 3.5-5.3 [...] 695 Performing Lab: Notes/Report: Test performed by [facility] [address] [place] [address] , [address], [place] [address] Kristian Trevino MD, System Integration Engineer CLIA: [id number] Albumin/Creatinine Ratio, Urine 695 0-30 ug/m g [...] Grigsby 05/18/2025 02:47:51 PM > faxed to [facility] PT Referral Priority Routine REASON [...] 04/02/2025 Encounters Encounter Location Date Provider Diagnosis [facility] 1210 [facility] [address] [id number] 04/02/2025 Shauna Almanzar Type 2 diabetes aquilino itus without complication E11.9 ; 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 ; Cholestatic hepatitis K75.89 ; nursing home (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.4 ; 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 ; Generalized weakness R53.1 and BMI 20.0-20.9, adult Z68.20 Assessments Encounter Date Diagnosis (ICD Code) Assessment Notes Treatment Notes Treatment Clinical Notes Section Notes 04/02/2025 Type 2 diabetes mellitus without complication (ICD-10 - E11.9) 04/02/2025 Adrenal abnormality (ICD-10 - E27.9) 04/02/2025 Cholestatic hepatitis (ICD-10 - K75.89) 04/02/2025 nursing home (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 (ICD-10 - [...] Name:Shauna Rogeriohema Merida er, 07/03/2025 11:45:00 AM, [address] [place] [address], [address], [place], [place], [id number], Provider Name:Shauna Mitchelljerri er, 07/06/2025 03:34:00 PM, [address] [place] [address], [address], [place], [id number], Progress Notes * HERMILA GOLDEN GINOOB: [birth year] (75 yo M)Acc No.[id number]:04/02/2025 Progress Notes Patient: HERMILA BUCIO Provider: Shauna Almanzar M.D. :1950 A ge:75 Y S ex:Male Date:04/02/2025 Address:[address] [place] [address], [id number] Subjective: * Chief Complaints: * [...] Impaired fasting glucose, Gets yearly eye exams, 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 * Procedure Codes: G2211 Complex e/[place]. [address] GLYCATED HEMOGLOBIN TEST. Modifiers: QW G8752 MOST RECENT SYSTOLIC BP < 140MM HG. G8754 MOST RECENT DIASTOLIC BP < 90MM HG. 3046F HEMOGLOBIN A1C LEVEL > 9.0%. G8420 BMI<30 AND >=22 CALC & DOCU. 1036F TOBACCO NON-USER. 3017F COLORECTAL CA SCREEN DOC REV. * Electronic signature of Shauna Almanzar MD on 06/04/2025 at 02:25 PM EDT Sign off status: Pending * Provider: Shauna Almanzar M.D. Date: 0 04/02/2025 Generated for Printi ng/Faxing/eTransmitting on: 0 06/04/2025 02:25 PM EDT History and Physical Notes * [...]
--- OUTSIDE RECORDS SUMMARY | 2025-04-17 10:26 | XMS_ITS ---
Author Organization [facility] Address [address] [place] [address] [place] [phone] Phone Care Team Providers Care Traveling Nurse Name Role Phone Sukumar CUEVAS, Rocky Griggs [ ] Conditions or Problems No information available. Medications Medication Instructions Start Date Stop Date Generic Name [facility] Provider budesonide 3 mg by mouth as needed as directed budesonide [facility] EZETIMIBE 10 MG TABS 1 tablet by mouth once a day ezetimibe [id number] [facility] XARELTO 20 MG TABS rivaroxaban [id number] [facility] PRAVASTATIN SODIUM 20 MG TABS 1 tablet by mouth once a day pravastatin [id number] [facility] aspirin 81 mg capsule 1 capsule by mouth once a day aspirin [facility] Medications Administered No information available. Allergies, Adverse Reactions, Alerts No information available. Results Date Name Value Unit Range Flag Description Office Visit: Office Visit: 11 SMOK STATUS Former smoker Tob acco smoking status MEDS REVIEW Done Documenta tion of current medications (procedure) Plan of Care Type Date Detail Appointment 11:00 AM Rocky Patino MD, [address] [facility], [address], [place], [address], Pending order CMP Pending order CBC with Differe ntial Pending order BNP Pending order Itraconazole Lev el Pending order Continue oral an tibiotics Procedures Code Procedure Name Date Entry Date G2211 Complex E&M visit add-on (G2211) Vital Signs Date Name Value Unit Description BMI (Body Mass Index) 21.43 kg/m2 Bod y Mass Index (Ratio) Body Temperature 97.8 [degF] temperat ure E&M BP Diastolic 66 mm[Hg] blood pressu re, diastolic BP Systolic 136 mm[Hg] blood pressur e, systolic Heart Rate 81 /min pulse rate Height 65 [in_us] height E&M Respiratory Rate 16 /min respirat ory rate E&M Weight Measured 128.8 [lb_av] weight E& M Weight Measured 128.8 [lb_av] weight E& M Immunizations No information available. Advance Directives No information available.
--- OUTSIDE RECORDS SUMMARY | 2025-04-30 10:00 | XMS_ITS ---
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) Referral [facility] Referring Provider First Name Shauna Beatty [...] W/U Status Risk Notes Problem Cardiac arrhythmia (787167109) Cardiac arrhythmia, unspecified cardiac arrhythmia type (I49.9) Active confirmed Problem Chronic vascular insufficiency of intestine (507714268) 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 Vital Signs Blood pressure systolic 130 mm Hg 04/30/20 25 Blood pressure diastolic 62 mm Hg 025 Heart Rate 85 /min 04/30/2025 Height 65 in 04/30/2025 Weight 133.8 lbs 04/30/2025 BMI 22.26 kg/m2 04/30/2025 Encounters Encounter Location Date Provider Diagnosis [place] [facility] [address] [id number] 04/30/2025 Shauna Almanzar Type 2 diabetes aquilino itus with hyperglycemia E11.65 ; 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 :1950 A ge:75 Y S ex:Male Date:04/30/2025 Address:[address] [place] [address] [address] [place] , [id number] Subjective: * Chief Complaints: * 1 . 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 B CO 22.0-22.9, adult - Z68.22 1 3. C [...] * Images: Billing Information: * Visit Code: 05982 Office Visit, Est Pt., Level 4. * Procedure Codes: G2211 Complex e/m visit add on. 1036F TOBACCO NON-USER. G8420 BMI<30 AND >=22 CALC & DOCU. G8950 PREHTN/HTN BP DOC INDCD F/U DOC. G8752 MOST RECENT SYSTOLIC BP < 140MM HG. G8754 MOST RECENT DIASTOLIC BP < 90MM HG. * Electronic signature of Shauna Almanzar MD on 06/04/2025 at 02:24 PM EDT Sign off status: Pending * Provider: Shauna Almanzar M.D. Date: 0 04/30/2025 Generated for Printi ng/Faxing/eTransmitting on: 0 06/04/2025 02:24 PM EDT History [...]
--- OUTSIDE RECORDS SUMMARY | 2025-06-04 14:23 | XMS_ITS | Clinical Summary ---
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 524089107 (SNOMED CT) 01/14 Active 01/14 Rocky Patino MD Drug-induced immunodeficiency Leukopenia 79949454 (SNOMED CT) 01/14 Active 01/14 Rocky Patino MD Leukopenia 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 01/09 Echo Mccurdy 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/09 Active 01/09 Echo Mccurdy Acute pulmonary histoplasmosis capsulati Medications Medication Instructions Start Date Stop Date Generic Name [facility] Provider budesonide 3 mg by mouth as needed as directed budesonide [facility] EZETIMIBE 10 MG TABS 1 tablet by mouth once a day ezetimibe 75579034044 [facility] XARELTO 20 MG TABS rivaroxaban 44476717279 [facility] PRAVASTATIN SODIUM 20 MG TABS 1 tablet by mouth once a day pravastatin 68638413753 [facility] aspirin 81 mg capsule 1 capsule by mouth once a day aspirin [facility] ITRACONAZOLE 100 MG CAPS Take 2 capsule by mouth twice a day itraconazole 48370423502 [facility] ITRACONAZOLE 100 MG CAPS TAKE TWO CAPSULES BY MOUTH TWICE DAILY itraconazole 45795482589 Rocky Patino MD IPRATROPIUM-ALBU TEROL 0.5-2.5 (3) MG/3ML SOLN ipratropium-albut [place] 22364585226 Amrita Hope JARDIANCE 10 MG TABS 1 tablet by mouth once a day empagliflozin 00182267777 Amrit[facility] ITRACONAZOLE 100 MG CAPS Take 2 capsule by mouth twice a day itraconazole 83575696467 Rocky Patino MD XARELTO 20 MG TABS rivaroxaban 80524779143 Christina Braden aspirin 81 mg capsule 1 capsule by mouth once a day aspirin [facility] budesonide 9 mg by mouth as needed as directed budesonide [facility] VITAMIN D 25 MCG (1000 UT) TABS 1 tablet by mouth once a day cholecalciferol (vitamin d3) 32760224859 [facility] JARDIANCE 10 MG TABS 1 tablet by mouth once a day empagliflozin 22429244785 [facility] EZETIMIBE 10 MG TABS 1 tablet by mouth once a day ezetimibe 62824430418 [facility] insulin lispro protamine-lispro 100 unit/mL (75-25) subcutaneous susp insulin lispro protamin-lispro [facility] IPRATROPIUM-ALBU TEROL 0.5-2.5 (3) MG/3ML SOLN ipratropium-albut [place] 12579329034 [facility] LEVOTHYROXINE SODIUM 50 MCG TABS 1 tablet by mouth once a day levothyroxine 59487129971 [facility] METFORMIN HCL 500 MG TABS 1 tablet by mouth once a day metformin 88422558855 [facility] MIRTAZAPINE 15 MG TABS 1 tablet by mouth once a day mirtazapine 40089119304 [facility] MYCOPHENOLATE MOFETIL 500 MG TABS 1 tablet by mouth twice a day mycophenolate mofetil 41442294484 [facility] PRAVASTATIN SODIUM 20 MG TABS 1 tablet by mouth once a day pravastatin 14591687311 [facility] URSODIOL 500 MG TABS 1 tablet by mouth twice a day ursodiol 16189615390 [facility] Medications Administered No information available. 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 yes Fall ris k assessment [...] Detail Appointment 11:00 AM Rocky Patino MD, [facility], [facility] [address], [place], [address], Pending order CMP Pending order CBC with [...] (G221) CPT-Cooral Continue oral antibiotics 20 27/02/11 CPT-30023 CMP [id number] CBC with Differential 2024 CPT-50161 Itraconazole Level 1 CPT-23311 BNP CPT-elizabeth New Oral Antibiotic CPT-01059 CMP [id number] CBC with Differential 2024 CPT-21564 CD4 50302 Fungitell, serum (1-3) D-Glucan Assay 03/07/12 CPT-78853 Urine Culture & Sensitivity [id number], [id number] Urinalysis CPT-cf Fungal Culture & Sensitivity CPT-97079 BNP Vital Signs Date Name Value Unit [...]
--- OUTSIDE RECORDS SUMMARY | 2025-06-04 14:24 | XMS_ITS | Encounter Summary ---
Author Organization [facility] Address [address] [place] [address] Care Team Providers Care Nurse First Aid Name Role Phone Rocky Almanzar MD Primary Care Provider [phone] Reason for Visit * Reason Comments Med Refill Encounter Details Date Type Department Care Team (Late Contact Info) Description 11/10/2021 Refill [facility] [address] [place] [address] Jason Romero MD [address] [address] Type 2 diabetes mellitus with other specified complication, with long-term current use of insulin ([facility]) Social History Tobacco Use Types [...] EDT Office Visit [facility] [address] [place] [address] Melany Rosales, DO [address] [place] [address] 07/17/2025 2:00 PM EDT Office Visit [facility] Audiology [address] [place] [address] Lottie Lund, AuD [address] [place] [address] 01/05/2026 11:00 AM EST Office Visit [facility] [address], [address] [place] [address] Vivian Macias S, OD [address] [place] [address] documented as of this encounter Visit Diagnoses Diagnosis Type 2 diabetes mellitus with other specified complication, with long-term current use of insulin ([facility]) documented in this encounter Additional Health Concerns Infection Onset Date Last Indicated Resolved Time MRSA 03/30/2021 03/30/2021 Assessment Noted Time A fall risk assessment has been complete d for the patient 10/11/2021 3:35 PM EST documented as of this encounter Care Teams Nurse First Aid Relationship Specialty Start Date End Date Rocky Almanzar MD [address] [place] [address] PCP - General 03/18/21 documented as of this encounter
--- OUTSIDE RECORDS SUMMARY | 2025-06-04 14:24 | XMS_ITS | Clinical Summary ---
[facility] Organization [facility] Address [address] [place] [address] Care Team Providers Care Occupational Psychologist Name Role Phone Provider, No Known Primary Care Provider Unavail able Encounters Date Type Department Care Team Description 03/16/2025 4:40 PM EDT Lab [facility] [address] [place] [phone] Immunodeficiency due to drug therapy; Leukopenia, unspecified type; Acute pulmonary histoplasmosis capsulati; Disseminated histoplasmosis capsulati 03/16/2025 Travel from Last 3 Months Social History Tobacco Use Types Packs/Day Years Used Date Smoking Tobacco: Never Assessed Sex and Gender Information Value Date Recorded Sex Assigned at Not on file Legal Sex Male 10:24 PM EDT Gender Identity Not on file Sexual Orientation Not on file Plan of Treatment Health Maintenance Due Date Last Done Comments ANNUAL WELLNESS VISIT 1950 TDAP/TD VACCINES (1 - Tdap) 1970 ZOSTER VACCINE (1 of 2) 1970 COLOGUARD 1996 COLON CANCER SCREENING 5 YEA R SIGMOIDOSCOPY 1996 [address] COLONOGRAPHY 1996 FECAL OCCULT BLOOD TEST 1996 FIT Testing (1 year) 1996 Pneumococcal Vaccine 50+ (2 of 2 - PCV) 08/13/2019 08/13/2018 COVID-19 Vaccine (6 - Modern a risk season) 2025 10/13/2024, 10/01/2023, 09/20/2022, Additional history exists INFLUENZA VACCINE 08/05/2025 10/16/2023, , 08/16/2020 COLONOSCOPY 08/03/2027 08/03/2017, 08/03/2017 COLORECTAL CANCER SCREENING 08/03/2027 HEPATITIS C SCREENING Completed 08/15/2016 AAA SCREEN ONCE Completed 12/07/2016 Procedures Procedure Name Priority Date/Time Associated Diagnosis Comments CBC AND DIFFERENTIAL STAT 03/16/2025 4:33 PM EDT Immunodeficiency due to drug therapy Leukopenia, unspecified type 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 CBC WITH AUTO DIFFERENTIAL STAT 03/16/2025 4:33 PM EDT Immunodeficiency due to drug therapy Leukopenia, unspecified type 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 B-TYPE NATRIURETIC PEPTIDE STAT 03/16/2025 4:33 PM EDT Immunodeficiency due to drug therapy Leukopenia, unspecified type 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 ITRACONAZOLE, SERUM/PLASMA STAT 03/16/2025 4:33 PM EDT Immunodeficiency due to drug therapy Leukopenia, unspecified type 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 Hydroxyitraconazole is an active metabolite of itraconazole; the activity and serum concentrations are similar to parent drug. Blood Venipuncture / Unknown 03/16/2025 4:33 PM EDT 03/16/2025 4:33 PM EDT N[facility]ative [facility] - 03/23/2025 5:09 PM EDT Test(s) [id number] was developed and its performance characteristics determined by [facility]. It has not been cleared or approved by the Food and Drug Administration. Performed at: 01 - [address] [id number] Insole And Outsole Preparer: Jacqui Cervantes MD, Phone: [phone] us Rocky Patino MD LAB BLOOD ORDERABLES Final Resul t [facility] [address] [place] [address], * (ABNORMAL) CBC Auto Differential (03/16/2025 4:33 PM EDT) WBC 2.56(L) 3.40 - 10.80 10*3/mm3 03/16/2025 5:17 PM EDT [facility] RBC 3.74(L) 4.14 - 5.80 10*6/mm3 03/16/2025 5:17 PM EDT [facility] Hemoglobin 10.7(L) 13.0 - 17.7 g/dL 03/16/2025 5:17 PM EDT [facility] Hematocrit 32.6(L) 37.5 - 51.0 % 03/16/2025 5:17 PM EDT [facility] MCV 87.2 79.0 - 97.0 fL 03/16/2025 5:17 PM EDT [facility] MCH 28.6 26.6 - 33.0 pg 03/16/2025 5:17 PM EDT [facility] MCHC 32.8 31.5 - 35.7 g/dL 03/16/2025 5:17 PM EDT [facility] RDW 15.5(H) 12.3 - 15.4 % 03/16/2025 5:17 PM EDT [facility] RDW-SD 48.6 37.0 - 54.0 fl 03/16/2025 5:17 PM EDT [facility] MPV 10.3 6.0 - 12.0 fL 03/16/2025 5:17 PM EDT [facility] Platelets 172 140 - 450 10*3/mm3 03/16[facility]25 [facility] Neutrophil % 82.8(H) 42.7 - 76.0 % 03/16/2025 5:[facility] Lymphocyte % 9.0(L) 19.6 - 45.3 % 03/16/2025 5:17 PM EDT [facility] Monocyte % 7.0 5.0 - 12.0 % 03/16/2025 5:17 PM [facility] Eosinophil % 0.0(L) 0.3 - 6.2 % 03/16/2025 5:17 PM [facility] Basophil % 0.4 0.0 - 1.5 % 03/16/2025 5:17 PM [facility] Immature Grans % 0.8(H) 0.0 - 0.5 % 03/16/2025 5:17 PM [facility] Neutrophils, Absolute 2.12 1.70 - 7.00 10*3/mm3 03/16/2025 5:17 PM [facility] Lymphocytes, Absolute 0.23(L) 0.70 - 3.10 10*3/mm3 03/16/2025 5:17 PM [facility] Monocytes, Absolute 0.18 0.10 - 0.90 10*3/mm3 03/16/2025 5:[facility] Eosinophils, Absolute 0.00 0.00 - 0.40 10*3/mm3 03/16/2025 5:17 PM [facility] Basophils, Absolute 0.01 0.00 - 0.20 10*3/mm3 03/16/2025 5:17 [facility] Immature Grans, Absolute 0.02 0.00 - 0.05 10*3/mm3 03/16/2025 5:17 PM EDT [facility] nRBC 0.0 0.0 - 0.2 /100 WBC 03/16/2025 5:17 PM EDT [facility] Blood Venipuncture / Unknown 03/16/2025 4:33 PM EDT 03/16/2025 4:33 PM EDT us Rocky Patino MD LAB BLOOD ORDERABLES Final Resul t Performing Organization Address [facility] de Phone Number [facility]
[address] [place] [address], * (ABNORMAL) BNP (03/16/2025 4:33 PM EDT) proBNP 1,207.0(H) 0.0 - 900.0 pg/mL 03/16/2025 5:38 PM EDT [facility] Blood Venipuncture / Unknown 03/16/2025 4:33 PM EDT 03/16/2025 4:33 PM EDT Narrative [facility] - 03/16/2025 5:38 PM EDT This assay is used as an aid in the diagnosis of individuals suspected of having heart failure. It can be used as an aid in the diagnosis of acute decompensated heart failure (ADHF) in patients presenting with signs and symptoms of ADHF to the emergency department (ED). In addition, NT-proBNP of <300 pg/mL indicates ADHF is not likely. Age Range Result Interpretation NT-proBNP Concentration (pg/mL: <50 Positive >450 Petit 300-450 Negative <300 50-75 Positive >900 Petit 300-900 Negative <300 >75 Positive >1800 Petit 300-1800 Negative <300 us Rocky Patino MD LAB BLOOD ORDERABLES Final Resul t Performing Organization Address [facility] Co de Phone Number [facility]
[address] [place] [address], [place] [phone] * (ABNORMAL) Comprehensive Metabolic Panel (03/16/2025 4:33 PM EDT) Glucose 368(H) 65 - 99 mg/dL 03/16/2025 5:38 PM T [facility] BUN 32(H) 8 - 23 mg/dL 03/16/2025 5:38 PM [facility] Creatinine 0.95 0.76 - 1.27 mg/dL 03/16/2025 5:38 PM T [facility] Sodium 140 136 - 145 mmol/L 03/16/2025 5:38 PM T [facility] Potassium 3.9 3.5 - 5.2 mmol/L 03/16/2025 5:38 PM [facility] Comment:Slight hemolysis det ected by analyzer. Result may be falsely elevated. Chloride 101 98 - 107 mmol/L 03/16/2025 5:38 PM [facility] CO2 24.0 22.0 - 29.0 mmol/L 03/16/2025 5:38 PM T [facility] Calcium 8.7 8.6 - 10.5 mg/dL 03/16/2025 5:38 PM [facility] Total Protein 5.5(L) 6.0 - 8.5 g/dL 03/16/2025 5:38 PM [facility] Albumin 3.4(L) 3.5 - 5.2 g/dL 03/16/2025 5:38 PM [facility] ALT (SGPT) 25 1 - 41 U/L 03/16/2025 5:38 PM T [facility] AST (SGOT) 11 1 - 40 U/L 03/16/2025 5:38 PM T [facility] Alkaline Phosphatase 73 39 - 117 U/L 03/16/2025 5:38 PM T [facility] Total Bilirubin 0.6 0.0 - 1.2 mg/dL 03/16/2025 5:38 PM [facility] Globulin 2.1 gm/dL 03/16/2025 5:38 PM T [facility] Comment:Calculated Result A/G Ratio 1.6 g/dL 03/16/2025 5:38 PM EDT [facility] BUN/Creatinine Ratio 33.7(H) 7.0 - 25.0 03/16/2025 5:38 PM EDT [facility] Anion Gap 15.0 5.0 - 15.0 mmol/L 03/16/2025 5:38 PM EDT [facility] eGFR 84.5 >60.0 mL/min/1.7 3 03/16/2025 5:38 PM EDT [facility] Blood Venipuncture / Unknown 03/16/2025 4:33 PM EDT 03/16/2025 4:33 PM EDT Narrative [facility] - 03/16/2025 5:38 PM EDT GFR Categories in Chronic Kidney Disease (CKD) GFR Category GFR (mL/min/1.73) Interpretation G1 90 or greater Normal or high (1) G2 60-89 Mild decrease (1) G3a 45-59 Mild to moderate decrease G3b 30-44 Moderate to severe decrease G4 15-29 Severe decrease G5 14 or less Kidney failure (1)In the absence of evidence of kidney disease, neither GFR category G1 or G2 fulfill the criteria for CKD. eGFR calculation 2020 CKD-EPI creatinine equation, which does not include race as a factor us Rocky Patino MD LAB BLOOD ORDERABLES Final Resul t [facility]
[address] [place] [address], from Last 3 Months Insurance Care Teams Occupational Psychologist Relationship Specialty Start Date End Date Provider, [place] [address] PCP - General 01/14/25
--- OUTSIDE RECORDS SUMMARY | 2025-06-04 14:25 | XMS_ITS | Encounter Summary ---
Author Organization Healthcare Address [address] [place] [address] Care Team Providers Care Hydrometeorological Technician Name Role Phone Rocky Almanzar MD Primary Care Provider [phone] Reason for Visit * Reason Comments Med Refill Encounter Details Date Type Department Care Team (Late Contact Info) Description 05/20/2021 Refill [facility] Endocrinology [address] [place] [address] Jason Romero MD [address] [address] Social History Tobacco Use Types [...] Description 07/07/2025 11:40 AM EDT [facility] [address] [place] [address] Melany Rosales, DO [address] [place] [address] 07/17/2025 2:00 PM EDT Office Visit [facility] Audiology [address] [place] [address] Lottie Lund, AuD [address] [place] [address] 01/05/2026 11:00 AM EST Office Visit [facility] [place] [address], [address] [place] [address] Vivian Macias, OD [address] [place] [address] documented as of this encounter Visit Diagnoses Not on filedocumented in this encounter Additional Health Concerns Infection Onset Date Last Indicated Resolved Time MRSA 03/30/2021 03/30/2021 documented as of this encounter Care Teams Hydrometeorological Technician Relationship Specialty Start Date End Date Rocky Almanzar MD [address] [place] [address] PCP - General 03/18/21 documented as of this encounter
--- OUTSIDE RECORDS SUMMARY | 2025-06-04 14:25 | XMS_ITS | Encounter Summary ---
Author Organization Healthcare Address [address] [place] [address] Care Team Providers Care Hinging Machine Operator Name Role Phone Rocky Almanzar MD Primary Care Provider [phone] Reason for Visit * Reason Comments Med Refill Encounter Details Date Type Department Care Team (Late st Contact Info) Description 05/04/2025 Refill [facility] Endocrinology [address] [place] [address] Jason Romero MD [address] [address] Type 2 diabetes mellitus with hyperglycemia, with long-term current use of insulin ([facility]) Social History Tobacco Use Types [...] Description 07/07/2025 11:40 AM EDT Office Visit [facility] Endocrinology [address] [place] [phone] Melany Rosales, DO [address] [place] [phone] 07/17/2025 2:00 PM EDT Office Visit [facility] Audiology [address] [place] [address] Lottie Lund, AuD [address] [place] [address] 01/05/2026 11:00 AM EST Office Visit [facility] [address], [address] [place] [address] Vivian Macias S, OD [address] [place] [address] documented as of this encounter Visit Diagnoses Diagnosis Type 2 diabetes mellitus with hyperglycemia, with long-term current use of insulin ([facility]) documented in this encounter Additional Health Concerns Infection Onset Date Last Indicated Resolved Time MRSA 03/30/2021 03/30/2021 Assessment Noted Time A fall risk assessment has been complete d for the patient 12/16/2024 12:16 PM EST A Body Mass Index follow-up plan has been documented for the patient 01/13/2025 8:11 PM EDT documented as of this encounter Care Teams Hinging Machine Operator Relationship Specialty Start Date End Date Rocky Almanzar MD [address] [place] [address] PCP - General 03/18/21 documented as of this encounter
--- OUTSIDE RECORDS SUMMARY | 2025-06-04 14:25 | XMS_ITS | Encounter Summary ---
Author Organization Healthcare Address [address] [place] [address] Care Team Providers Care Hair Spring Winder Name Role Phone Rocky Almanzar MD Primary Care Provider [phone] Encounter Details Date Type Department Care Team (Late st Contact Info) Description 04/28/2025 Telephone [facility] Endocrinology [address] [place] [address] Jason Romero MD [address] [place] [address] Social History Tobacco Use Types [...] with Derek's phone number for refills from [facility]. Pt's was on the phone and was able to take appropriate notes. Pt to come by [facility] to spanish moss picker smaple FSL3+ sensor on Sunday. No other questions at this time. * Telephone Encounter - MARYLIN DALAL - 04/28/2025 12:05 PM EDT Pt requesting a call back regarding his Leroy system not seeming to be working. documented in this encounter Plan of Treatment Upcoming Encounters Date Type Department Care Team (Late st Contact Info) Description 07/07/2025 11:40 AM EDT Office Visit [facility] Endocrinology [address] [place] [address] Melany Rosales, DO [address] [place] [address] 07/17/2025 2:00 PM EDT Office Visit [facility] Audiology [address] [place] [address] Lottie Lund, AuD [address] [place] [address] 01/05/2026 11:00 AM EST Office Visit [facility] [address] [place] [address] Vivian Macias S, OD [address] [place] [address] documented as of this encounter [...] documented as of this encounter Care Teams Hair Spring Winder Relationship Specialty Start Date End Date Rocky Almanzar MD [address] [place] [address] PCP - General 03/18/21 documented as of this encounter
--- OUTSIDE RECORDS SUMMARY | 2025-06-04 14:25 | XMS_ITS | Encounter Summary ---
Author Organization [facility] Address [address] [place] [address] Care Team Providers Care Computer Technology Trainer Name Role Phone Rocky Almanzar MD Primary Care Provider [phone] Reason for Visit * Reason Onset Date Comments HCN - Patient Message 04/24/2025 Encounter Details Date Type Department Care Team (Late st Contact Info) Description 04/24/2025 Telephone [facility] Diabetes Education [address] [place] [phone] Rocky Almanzar MD [address] [place] [address] HCN - Patient Message Social History Tobacco [...] refill. Please contact patient Best contact number: [phone] (home) Optimal time of day to reach caller: Anytime Additional comments/information from caller: n/a Note: Please do not reply to this message. Follow-up communication and further actions as a result of this message need to be communicated with the patient directly, if the patient is not active onMyChart. If the patient is active on MyChart, they will receive notification of the communication/outcome via [facility] [facility] [facility] [employer] [facility]. documented in this encounter Plan of Treatment Upcoming Encounters Date Type Department Care Team (Late st Contact Info) Description 07/07/2025 11:40 AM EDT [facility] Endocrinology [address] [place] [phone] Melany Rosales, DO [address] [place] [address] 07/17/2025 2:00 PM EDT Office Visit [facility] Audiology [address] [place] [address] Lottie Lund, AuD [address] [place] [address] 01/05/2026 11:00 AM EST Office Visit [facility] Eye [place] [address] [place] [address] Vivian Macias S, OD [address] [place] [address] documented as of this encounter [...] documented as of this encounter Care Teams Computer Technology Trainer Relationship Specialty Start Date End Date Rocky Almanzar MD [address] [place] [address] PCP - General 03/18/21 documented as of this encounter
--- OUTSIDE RECORDS SUMMARY | 2025-06-04 14:25 | XMS_ITS | Clinical Summary ---
Author Organization [facility] Address [address] [place] [address] Care Team Providers Care Candy Decorator Name Role Phone Rocky Almanzar MD Primary Care Provider [phone] Allergies Active Allergy Reactions Criticality Noted Date [...] 100 UNITS. 90 mL 1 5 Active Jardiance 10 MGIndications:T ype 2 diabetes mellitus with hyperglycemia, with long-term current use of insulin (CMS/HCC) TAKE 1 TABLET DAILY 90 tablet 3 5 Active Active Problems Problem Noted Date [...] Type Department Care Team Description 05/04/2025 Refill [facility] Endocrinology [address] [place] [address] Jason Romero MD Type 2 diabetes mellitus with hyperglycemia, with long-term current use of insulin ([facility]) 04/28/2025 Telephone [facility] Endocrinology [address] [place] [address] Jason Romero MD 04/24/2025 Telephone [facility] Diabetes Education [address] [place] [address] Rocky Almanzar MD HCN - [...] Description 07/07/2025 11:40 AM EDT Office Visit [facility] Endocrinology [address] [place] [phone] Melany Rosales, DO [address] [place] [address] 07/17/2025 2:00 PM EDT Office Visit [facility] Audiology [address] [place] [address] Lottie Lund, AuD [address] [place] [address] 01/05/2026 11:00 AM EST Office Visit [facility] Center [address] [place] [address] Vivian Macias S, OD [address] [place] [address] Health Maintenance Due Date Last [...] A1C 03/17/202509/2025, 05/23/2024, 11/22/2023, Additional history exists [id number] Vaccine (7 - Moderna risk season) 2025 [...] this topic Medical Devices Implanted Type Area Water Pumper Device Identifier Shelf Expiration Date Model / Serial / Lot Roseline Stanleyk Advantage Ci Hifocus 1j Electrode--06/05 Implanted:06/05 by Ky Del Rio MD (Quantity not on file) Cochlear Left: Ear [employer] [id number] / [id number] / Description:Roseline 90K Advant age CI HiFocus 1J electrode--cochlear implant by Dr. Del Rio at [facility] on 06/21/2017, operative note in Epic. LEFT EAR. Roseline ULTRA 3D Cochlear implant REF: [id number] Serial number: [id number] Procedures Procedure Name Priority Date/Time Associated Diagnosis [...] % [facility] Kit Lot Number [id number] [facility] Kit Expiration Date 10/04/26 HEALTHCARE LAB Blood Venous blood specimen / Unknown 12/16/2024 12:27 PM EST Jason Romero MD POINT OF CARE TEST ENTER/ED IT ORDERABLES Final Result [facility] [address] [place] [address] * COLONOSCOPY (08/03/2017) Anatomical Region Laterality Modality [...] Date Last Indicated MRSA 03/30/2021 03/30/2021 Insurance [facility] E[facility] Care Teams Candy Decorator Relationship Specialty Start Date End Date Rocky Almanzar MD [facility] [address] [place] [address] PCP - General 03/18/21
--- OUTSIDE RECORDS SUMMARY | 2025-06-04 14:26 | XMS_ITS | Patient Health Record ---
Author Organization [facility] Address [address] [facility] [address] [id number] Care Team Providers Care Computer Tape Librarian Name Role Phone Shauna Almanzar Primary Care Provider Emir Berger Unavailable [phone] Trinity Medeiros Unavailable [phone] Doretha Burns Unavailable [phone] Allergies Allergen (clinical drug ingredient) Drug/Non Drug [...] 5.5 Performing Lab: Notes/Report: Test performed by [employer] [facility] , [address], [place] [address] Krisitan Trevino MD, Head Of Conservation CLIA: [id number] Sodium 139 135-145 mmol/L Potassium 3.7 3.5-5.3 [...] 695 Performing Lab: Notes/Report: Test performed by [employer], [place] [address] [facility] , [address], [place] [address] Kristian Trevino MD, Head Of Conservation CLIA: [id number] Albumin/Creatinine Ratio, Urine 695 0-30 ug/mg Microalbumin, Urine, Random 16.4 Creatinine, Urine 23.6 H-BMP Reviewed date:09/08/2024 11:20:09 AM Interpretation:cl 109, co2 21, bun 25, zum426 Performing Lab: Notes/Report: NA 137 136-145 mmol/L K 3.8 3.5-5.1 mmoL/L CL 109 98-107 mmol/L CO2 21 22.0-30.0 mmol/L GAP 10.8 5-15 mEq/L BUN 25 9-20 mg/dl CREATT 1.20 0.66-1.25 mg/dl GFRAA 72 >60 ML/MIN EGFR 59 >60 ml/min GLU 380 74-100 mg/dl CA 9.0 8.4-10.2 mg/dl H-TSH Reviewed date:11/13/2024 01:33:09 PM Interpretation:Normal Performing Lab: Notes/Report: TSH 3.05 0.465-4.68 uIU/mL H-BMP Reviewed date:08/26/2024 02:54:53 PM Interpretation: Performing [...] 121 on 08/25/24-2251 CA 8.3 8.4-10.2 mg/dl H-DIFF Reviewed date:08/26/2024 [...] 0.0 0.0-0.4 K/mm3 BA# 0.0 0-0.2 K/mm3 Rapid Strep- Inhouse Reviewed date:09/16/2024 01:23:25 PM Interpretation:Positive Performing Lab: Notes/Report: Positive strep test Pos H-BMP Reviewed date:09/19/2024 01:07:51 PM Interpretation:ordered by [...] 370 74-100 mg/dl CA 9.0 8.4-10.2 mg/dl CXR [...] 0.1 0.0-0.4 K/mm3 BA# 0.0 0-0.2 K/mm3 Urinalysis - Inhouse Reviewed date:01/09/2025 01:37:28 PM [...] 100 - 400 P-Comprehensive Metabolic Pa tarah ([facility]) Reviewed date:01/12/2025 11:34:53 AM Interpretation:gluc 144, bun 30, Cr 1.35, gfr 55, alk phos 229 Performing Lab: Notes/Report: Test performed by [employer] [address] [place] [address] , [address], [place] [address] Kristian Trevino MD, Head Of Conservation CLIA: [id number] Sodium 138 135-145 mmol/L Potassium 4.3 3.5-5.3 [...] Notes/Report: glycohemoglobin 7.7% 5 - 6.5 % Urinalysis - Inhouse Reviewed date:01/18/2025 02:07:53 PM Interpretation: Performing Lab: Notes/Report: Color/Clarity red/cloudy Leuk Neg Nitrite Neg Urobili 3.2 Protein 2+ pH 5.5 Blood 3+ Sp. Gr. 1.015 Ketone Neg Bili 1+ Gluc 2+ Medications Medication SIG (Take, Route, Frequency, Duration) Notes Start Date End Date Status Levothyroxine Sodium 50 mcg 1 tablet by mouth daily; Duration: 90 days Active FreeStyle Leroy 3 [place] - as directed 05/12/2025 Active FreeStyle Leroy [...] W/U Status Risk Notes Problem Essential hypertension (52795174) Essential (primary) hypertension (I10) Active confirmed Problem Vitamin D deficiency (25972145) Vitamin D deficiency (E55.9) Active confirmed Problem Essential hypertension (90664127) Essential hypertension (I10) Active confirmed Problem Screening for malignant neoplasm of prostate (860699439) Prostate cancer screening (Z12.5) Active confirmed Problem Paroxysmal atrial fibrillation (905538947) Paroxysmal atrial fibrillation (I48.0) Active confirmed Problem Hyperglycemia due to type 2 diabetes mellitus (047561122205252) Type 2 diabetes mellitus with hyperglycemia (E11.65) Active confirmed Problem Mixed hyperlipidemia (574591819) Mixed hyperlipidemia (E78.2) Active confirmed Problem Hyperlipidemia (88029285) Hyperlipidemia, unspecified (E78.5) Active confirmed Problem Hereditary hemochromatosis (72669459) 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) Active confirmed Problem Chronic respiratory failure (76087046) Chronic respiratory failure with hypoxia (J96.11) Active confirmed Problem Autoimmune hepatitis (432307592) Autoimmune hepatitis (K75.4) Active confirmed Problem Cholelithiasis without obstruction (42240301) Calculus of gallbladder without cholecystitis without obstruction (K80.20) Active confirmed Problem Cochlear implant status (Z96.21) Active confirmed Problem Male erectile disorder (091595804) Male erectile disorder (N52.9) Active confirmed Problem Long-term current use of insulin (609377411) FCI (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 (Z79.4) Active confirmed Problem Type II diabetes mellitus without complication (100595589) Type 2 diabetes mellitus without complication (E11.9) Active confirmed Problem Acquired hypothyroidism (832231442) Acquired hypothyroidism (E03.9) Active confirmed Problem Pulmonary fibrosis (25527647) Pulmonary fibrosis (J84.10) Active confirmed Problem Chronic fatigue syndrome (95199105) Chronic fatigue (R53.82) Active confirmed Problem COPD - Chronic obstructive pulmonary disease (55092431) Chronic obstructive pulmonary disease, unspecified COPD type (J44.9) Active confirmed Problem Pneumonia (136010138) Pneumonia of right lower lobe due to infectious organism (J18.9) Active confirmed Problem Hearing loss (67052636) Hearing loss, bilateral (H91.93) Active confirmed Problem Disorder of adrenal gland (06726622) 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) Active confirmed Problem Neutropenia (649845792) Neutropenia, unspecified type (D70.9) Active confirmed Problem Interstitial lung disease (948950671) Interstitial lung disease (J84.9) Active confirmed Problem Seasonal allergic rhinitis (045385712) Seasonal allergic rhinitis, unspecified allergic rhinitis trigger (J30.2) Active confirmed Problem Granulocytopenia (851349488) 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 confirmed Problem Systemic lupus erythematosus (36209634) Lupus (systemic lupus erythematosus) (M32.9) Active confirmed Problem Cardiac arrhythmia (905562072) Cardiac arrhythmia, unspecified cardiac arrhythmia type (I49.9) Active confirmed Problem Malnutrition, calorie (793710745) Caloric malnutrition (E46) Active confirmed Problem Benign prostatic hypertrophy without outflow obstruction (278548468) BPH without urinary obstruction (N40.0) Active confirmed Problem Allergic rhinitis caused by pollen (66799378) Acute seasonal allergic rhinitis due to pollen (J30.1) Active confirmed Problem Sensorineural hearing loss, bilateral (968420239) Sensorineural hearing loss (SNHL) of both ears (H90.3) Active confirmed Problem Cholestatic hepatitis (48891811) Cholestatic hepatitis (K75.89) Active confirmed Problem Skin sensation disturbance (31722875) Sensitive skin (R20.3) Active confirmed Problem Dilatation of aorta (39976712) Dilatation of aorta (I77.819) Active confirmed Problem Tomography - chest abnormal (777083279) Abnormal CT scan, chest (R93.89) Active confirmed Problem Left atrial dilatation (481594903) Left atrial dilatation (I51.7) Active confirmed Problem Chronic vascular insufficiency of intestine (781868443) 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 Problem Protein malnutrition (89119340) Protein malnutrition (E46) Active confirmed Vital Signs Heart Rate 85 /min 04/30/2025 Blood pressure diastolic 62 mm Hg 04/30/2025 Height 65 in 04/30/2025 Blood pressure systolic 130 mm Hg 04/30/2025 Weight 133.8 lbs 04/30/2025 BMI 22.26 kg/m2 04/30/2025 Encounters Encounter Location Date Provider [facility] [address] [place] [id number] 09/05/2024 Shauna Almanzar Pneumonia of left lo wer lobe due to infectious organism J18.9 ; Interstitial lung disease J84.9 ; Chronic respiratory failure with hypoxia J96.11 ; 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 ; Autoimmune hepatitis K75.4 ; Protein malnutrition E46 and Caloric malnutrition E46 [facility] [address] [facility] [address] [place], [place] [id number] 09/16/2024 Trinity Medeiros Strep pharyngitis J0 2.0 and Oral candidiasis B37.0 [facility] [address] [place], [place] [id number] 10/09/2024 Shauna Almanzar Lesion of adrenal gl and E27.9 ; Essential hypertension I10 ; Type 2 diabetes mellitus without complication E11.9 ; Acquired hypothyroidism E03.9 ; Hearing loss, bilateral H91.93 ; Cochlear implant status Z96.21 ; Protein malnutrition E46 ; Chronic obstructive pulmonary disease, unspecified COPD type J44.9 and Encounter for immunization Z23 [facility] [address] [facility] [address] [place] [id number] 11/03/2024 Emir [place] Acute cough R05.1 [facility] [address] [place] [id number] 11/07/2024 Shauna Almanzar Type 2 diabetes aquilino itus without complication E11.9 ; Acquired hypothyroidism E03.9 and Hereditary hemochromatosis E83.110 [facility] [address] [place] [id number] 01/09/2025 Shauna Almanzar Type 2 diabetes aquilino itus without complication E11.9 ; Hereditary hemochromatosis E83.110 ; Cochlear implant status Z96.21 ; Chronic obstructive pulmonary disease, unspecified COPD type J44.9 ; Essential (primary) hypertension I10 ; Protein malnutrition E46 and Gross hematuria R31.0 [facility] [address] [place] [id number] 01/15/2025 Shauna lAmanzar Interstitial lung disease J84.9 ; 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 ; Autoimmune hepatitis K75.4 ; Protein malnutrition E46 ; Cochlear implant status Z96.21 ; Type 2 diabetes mellitus without complication E11.9 and Hematuria R31.9 [facility] [address] [place] [id number] 02/11/2025 Emir [place] Type 2 diabetes aquilino itus with hyperglycemia E11.65 ; FCI (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.4 ; Gross hematuria R31.0 and Body mass index (BMI) of 19.0 to 19.9 in adult Z68.1 [facility] [address] [facility] [address] [place] [id number] 03/13/2025 Doretha Burns Drug interaction Z78 .9 [facility] [address] [facility] [address] [place], [place] [id number] 04/02/2025 Shauna Almanzar Type 2 diabetes aquilino itus without complication E11.9 ; 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 ; Cholestatic hepatitis K75.89 ; FCI (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.4 ; 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 ; Generalized weakness R53.1 and BMI 20.0-20.9, adult Z68.20 [facility] [address] [place], [place] [id number] 04/30/2025 Shauna Almanzar Type 2 diabetes aquilino [...] adult Z68.22 and Cochlear implant status Z96.21 [facility] [address] [place], [place] [id number] 05/12/2025 Shauna Almanzar [facility] [address] [place], [place] [id number] 06/04/2025 Shauna Almanzar [facility] [address] [place] [id number] 06/04/2024 J Rogerio Almanzar [facility] [address] [place], [place] [id number] 09/01/2024 Shauna Almanzar [facility] [address] [place], [place] [id number] 09/04/2024 Shauna Almanzar [facility] [address] [place] [id number] 09/08/2024 Shauna Almanzar [facility] [address] [place] [id number] 09/10/2024 Shauna Almanzar [facility] [address] [place] [id number] 09/15/2024 Shauna Almanzar [facility] [address] [place], [place] [id number] 09/16/2024 Shauna Almanzar [facility] [address] [place] [id number] 09/25/2024 Shauna Almanzar [facility] [address] [place] [id number] 11/03/2024 Emir Berger [facility] [address] [place], [place] [id number] 01/12/2025 Shauna Almanzar [facility] [address] [place], [place] [id number] 05/12/2025 Shauna Almanzar Assessments Encounter Date Diagnosis (ICD Code) Assessment Notes Treatment Notes Treatment Clinical Notes Section Notes 09/05/2024 Pneumonia of left lower lobe due [...] be ordered in 3 months from the August. Dr. 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 (ICD-10 - [...] mellitus with hyperglycemia (ICD-10 - E11.65) 04/30/2025 FCI (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 (ICD-10 - Z79.4) 01/09/2025 Cochlear implant status (ICD-10 - Z96.21) 04/30/2025 Adrenal abnormality (ICD-10 - E27.9) 04/02/2025 [...] respiratory failure with hypoxia (ICD-10 - J96.11) 09/05/2024 Adrenal abnormality (ICD-10 - E27.9) 10/09/2024 [...] Essential (primary) hypertension (ICD-10 - I10) 04/02/2025 FCI (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 (ICD-10 - Z79.4) 01/15/2025 Cochlear implant status (ICD-10 - Z96.21) 01/09/2025 Essential (primary) hypertension (ICD-10 - I10) 10/09/2024 Hearing loss, bilateral (ICD-10 - H91.93) 09/05/2024 Autoimmune hepatitis (ICD-10 - K75.4) 09/05/2024 Protein malnutrition (ICD-10 - E46) 10/09/2024 Cochlear implant status (ICD-10 - Z96.21) 01/09/2025 Protein malnutrition (ICD-10 - E46) 01/15/2025 [...] Test Test Name Order Date H-TSH 11/07/2024 Next Appt Details Provider Name:Shauna Rogerio Co er, 07/03/2025 11:45:00 AM, [address], [place], [id number], Provider Name:Shauna Rogerio Mitchell er, 07/06/2025 03:34:00 PM, [address], [place], [id number], Insurance Providers Payer Name Payer Address Payer Phone Subscriber Number Group Number Insured Name Patient Relationship to Insured Coverage Start Date Coverage End Date [facility] [address] [address] [place] [address] [phone] [id number] HERMILA GOLDEN Self - patient is the insured Medical (General) History Medical History History ICD Code Seasonal Allergies Kidney Stones Steatohepatitis hemachromatosis,(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 Smalls and Dr. 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
== END 2025-06-04 23:59 | disposition home or self-care (01) ==
LOC: LAB 14:19
PROVIDERS: PCP Family Medicine; Visit Provider Internal Medicine Gastroenterology
DX: B39.0 Acute pulmonary histoplasmosis capsulati (principal); B39.3 Disseminated histoplasmosis capsulati

== ENCOUNTER 2025-06-05 09:44 | Outpatient (CLI) | payer MEDICARE, SELFPAY ==
--- OUTSIDE RECORDS SUMMARY | 2025-03-13 10:15 | XMS_ITS ---
Author Organization [facility] Address 1210 [facility] [address] [phone] Care Team Providers Care Plasterer Helper Name Role Phone Shauna Almanzar Primary Care Provider Doretha Burns Unavailable [phone] Allergies Allergen (clinical drug ingredient) Drug/Non Drug Allergy documented on EMR Reaction Allergy Type Onset Date Status cephalexin Cephalexin Unknown Drug Allergy Activ e REASON FOR VISIT face is swollen per Alyssa at [facility], possible interaction with budesonide and itraconazole [...] 03/13/2025 Encounters Encounter Location Date Provider Diagnosis [facility] [address] [place] [id number] 03/13/2025 Doretha Burns Drug interaction Z78 .9 [...] 07/03/2025 11:45:00 AM, [address] [facility], [address], [place], [place], [id number], Provider Name:Shauna fofana, 07/06/2025 03:34:00 PM, [address], [address], [place], [place], [phone], Progress Notes * HERMILA GOLDEN: [birth year] (75 yo M)Acc No.[id number]:03/13/2025 Progress Notes Patient: HERMILA BUCIO Provider: LUCIA Davis :1950 A ge:74 Y S ex:Male Date:03/13/2025 Address:[address] [facility] [address], [facility] , [id number] Pcp:Shauna Almanzar Subjective: * Chief Complaints: * 1 . face is swollen per Alyssa at [facility], possible interaction with budesonide and itraconazole. 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 * Procedure Codes: G2211 Complex e/m visit add on. * Electronic signature of LUCIA Dean on 06/05/2025 at 09:46 AM EDT Sign off status: Pending * Provider: LUCIA Davis Date: 0 03/13/2025 Generated for Marisas mendoza/Rei/eTransmitting on: 0 06/05/2025 09:46 AM EDT History and Physical Notes * [...]
--- OUTSIDE RECORDS SUMMARY | 2025-04-02 10:15 | XMS_ITS ---
Author Organization [facility] Address [address]10 [facility] [address] [phone] Care Team Providers Care Pot Runner Name Role Phone Shauna Almanzar Primary Care [...] 5.5 Performing Lab: Notes/Report: Test performed by [employer] [facility] , [address], [place] [address] Kristian Trevino MD, Log Deck Tender CLIA: [id number] Sodium 139 135-145 mmol/L Potassium 3.7 3.5-5.3 [...] 695 Performing Lab: Notes/Report: Test performed by [facility] [address] [place] [address] , [address], [place] [address] Kristian Trevino MD, Log Deck Tender CLIA: [id number] Albumin/Creatinine Ratio, Urine 695 0-30 ug/m g [...] Grigsby 05/18/2025 02:47:51 PM > faxed to [facility] PT Referral Priority Routine REASON FOR [...] 04/02/2025 Encounters Encounter Location Date Provider Diagnosis 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 ; Generalized weakness R53.1 and BMI 20.0-20.9, adult Z68.20 Assessments Encounter Date Diagnosis (ICD Code) Assessment Notes Treatment Notes Treatment Clinical Notes Section Notes 04/02/2025 Type 2 diabetes mellitus without complication (ICD-10 - E11.9) 04/02/2025 Adrenal abnormality (ICD-10 - E27.9) 04/02/2025 Cholestatic hepatitis (ICD-10 - K75.89) 04/02/2025 half-way (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 (ICD-10 - Z79.4) [...] Name:Shauna Rogeriohema Merida er, 07/03/2025 11:45:00 AM, [address] [place] [address], [address], [place], [place], [id number], Provider Name:Shauna Mitchelljerri er, 07/06/2025 03:34:00 PM, [address] [place] [address], [address], [place], [place], [id number], Progress Notes * HERMILA GOLDEN GINOOB: [birth year] (75 yo M)Acc No.[id number]:04/02/2025 Progress Notes Patient: HERMILA BUCIO Provider: Shauna Almanzar M.D. :1950 A ge:75 Y S ex:Male Date:04/02/2025 Address:[address] [place] [address], [id number] Subjective: * Chief Complaints: * [...] yearly eye exams, [facility], Questionable Dx Lupus erythematosus 2015, Granuloma annulare [...] eneralized weakness - R53.1 7 . B [place] 20.0-20.9, adult - Z68.20? Plan: * Treatment: [...] G 2211 Complex e/[place], [address] GLYCATED HEMOGLOBIN TEST, Modifiers: QW , G8752 [...] * Images: Billing Information: * Visit Code: 18605 Office Visit, Est Pt., Level 4. * Procedure Codes: G2211 Complex e/[place]. [address] GLYCATED HEMOGLOBIN TEST. Modifiers: QW G8752 MOST RECENT SYSTOLIC BP < 140MM HG. G8754 MOST RECENT DIASTOLIC BP < 90MM HG. 3046F HEMOGLOBIN A1C LEVEL > 9.0%. G8420 BMI<30 AND >=22 CALC & DOCU. 1036F TOBACCO NON-USER. 3017F COLORECTAL CA SCREEN DOC REV. * Electronic signature of Shauna Almanzar MD on 06/05/2025 at 09:46 AM EDT Sign off status: Pending * Provider: Shauna Almanzar M.D. Date: 0 04/02/2025 Generated for Printi ng/Faxing/eTransmitting on: 0 06/05/2025 09:46 AM EDT History [...]
--- OUTSIDE RECORDS SUMMARY | 2025-04-17 10:26 | XMS_ITS ---
Author Organization [facility] Address [address] [place] [address] [place] [address] Phone Care Team Providers Care Grass Farm Laborer Name Role Phone Sukumar CUEVAS, Rocky Griggs [ ] Conditions or Problems No information available. Medications Medication Instructions Start Date Stop Date Generic Name [facility] Provider budesonide 3 mg by mouth as needed as directed budesonide [facility] EZETIMIBE 10 MG TABS 1 tablet by mouth once a day ezetimibe [id number] [facility] XARELTO 20 MG TABS rivaroxaban 30823231385 [facility] PRAVASTATIN SODIUM 20 MG TABS 1 tablet by mouth once a day pravastatin 54097888107 [facility] aspirin 81 mg capsule 1 capsule by mouth once a day aspirin [facility] Medications Administered No information available. Allergies, Adverse Reactions, Alerts No information available. Results Date Name Value Unit Range Flag Description Office Visit: Office Visit: 11 SMOK STATUS Former smoker Tob acco smoking status MEDS REVIEW Done Documenta tion of current medications (procedure) Plan of Care Type Date Detail Appointment 11:00 AM Rocky Patino MD, [address] [facility], [address], [place], [address], Pending order CMP Pending order CBC with [...]
--- OUTSIDE RECORDS SUMMARY | 2025-04-30 10:00 | XMS_ITS ---
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) Referral Organization [facility] Referring Provider First Name Shauna [...] W/U Status Risk Notes Problem Cardiac arrhythmia (820922285) Cardiac arrhythmia, unspecified cardiac arrhythmia type (I49.9) Active confirmed Problem 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 Vital Signs Blood pressure systolic 130 mm Hg 04/30/20 25 Blood pressure diastolic 62 mm Hg 025 Heart Rate 85 /min 04/30/2025 Height 65 in 04/30/2025 Weight 133.8 lbs 04/30/2025 BMI 22.26 kg/m2 04/30/2025 Encounters Encounter Location Date Provider Diagnosis [place] [id number] [facility] [address] [phone] 04/30/2025 Shauan Almanzar Type 2 diabetes aquilino itus with hyperglycemia E11.65 ; 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 :1950 A ge:75 Y S ex:Male Date:04/30/2025 Address:[address] [place] [address], [facility] Subjective: * Chief Complaints: * 1 [...] portal: [email or web address], type 2 diabetes, followed at [facility], 06/05/2019 CT: healing of R lung [...] artery stenosis - K55.1 1 2. B [place] 22.0-22.9, adult - Z68.22 1 3. C [...] * Images: Billing Information: * Visit Code: 73490 Office Visit, Est Pt., Level 4. * [...] 04/30/2025 Generated for Printi ng/Faxing/eTransmitting on: 0 06/05/2025 [...]
--- OUTSIDE RECORDS SUMMARY | 2025-06-05 09:46 | XMS_ITS | Clinical Summary ---
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 01/09 Echo Mccurdy 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/09 Active 01/09 Echo Mccurdy Acute pulmonary histoplasmosis capsulati Medications Medication Instructions Start Date Stop Date Generic Name [facility] Provider budesonide 3 mg by mouth as needed as directed budesonide [facility] [place] EZETIMIBE 10 MG TABS 1 tablet by mouth once a day ezetimibe 11824112807 [facility] [place] XARELTO 20 MG TABS rivaroxaban 98434503360 [facility] [place] PRAVASTATIN SODIUM 20 MG TABS 1 tablet by mouth once a day pravastatin 39928684602 [facility] [place] aspirin 81 mg capsule 1 capsule by mouth once a day aspirin [facility] [place] ITRACONAZOLE 100 MG CAPS Take 2 capsule by mouth twice a day itraconazole 54184622157 [facility] ITRACONAZOLE 100 MG CAPS TAKE TWO CAPSULES BY MOUTH TWICE DAILY itraconazole 24673273575 Rocky Patino MD IPRATROPIUM-ALBU TEROL 0.5-2.5 (3) MG/3ML SOLN ipratropium-albut [place] 56428392589 Amrita Hope JARDIANCE 10 MG TABS 1 tablet by mouth once a day empagliflozin 86132022178 Amrita Hope ITRACONAZOLE 100 MG CAPS Take 2 capsule by mouth twice a day itraconazole 13111633038 Rocky Patino MD XARELTO 20 MG TABS rivaroxaban 68153034611 Christina Braden aspirin 81 mg capsule 1 capsule by mouth once a day aspirin Laiba Sonu budesonide 9 mg by mouth as needed as directed budesonide [facility] VITAMIN D 25 MCG (1000 UT) TABS 1 tablet by mouth once a day cholecalciferol (vitamin d3) 43343379710 [facility]u JARDIANCE 10 MG TABS 1 tablet by mouth once a day empagliflozin 79951689844 [facility] EZETIMIBE 10 MG TABS 1 tablet by mouth once a day ezetimibe 80340359579 [facility] Sonu insulin lispro protamine-lispro 100 unit/mL (75-25) subcutaneous susp insulin lispro protamin-lispro [facility] Sonu IPRATROPIUM-ALBU TEROL 0.5-2.5 (3) MG/3ML SOLN ipratropium-albut [place] 90711099942 [facility] LEVOTHYROXINE SODIUM 50 MCG TABS 1 tablet by mouth once a day levothyroxine 10883054951 [facility] METFORMIN HCL 500 MG TABS 1 tablet by mouth once a day metformin 14045716363 [facility] MIRTAZAPINE 15 MG TABS 1 tablet by mouth once a day mirtazapine 89600821916 [facility] MYCOPHENOLATE MOFETIL 500 MG TABS 1 tablet by mouth twice a day mycophenolate mofetil 00089622710 [facility] PRAVASTATIN SODIUM 20 MG TABS 1 tablet by mouth once a day pravastatin 64426022557 [facility] URSODIOL 500 MG TABS 1 tablet by mouth twice a day ursodiol 56930637993 [facility] Medications Administered No information available. 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, [employer] yes Fall ris k assessment Lab [...] Detail Appointment 11:00 AM Rocky Patino MD, [facility], [facility] [address], [place], [address], Pending order CMP Pending order CBC with [...] (G221) CPT-Cooral Continue oral antibiotics 20 27/02/11 CPT-01438 CMP [id number] CBC with Differential 2024 CPT-10799 Itraconazole Level 1 CPT-36421 BNP CPT-elizabeth New Oral Antibiotic CPT-74256 CMP [id number] CBC with Differential 2024 CPT-51682 CD4 52143 Fungitell, serum (1-3) D-Glucan Assay 03/07/12 CPT-12562 Urine Culture & Sensitivity [id number], [id number] Urinalysis CPT-cf Fungal Culture & Sensitivity CPT-61471 BNP Vital Signs Date Name Value Unit [...]
--- OUTSIDE RECORDS SUMMARY | 2025-06-05 09:46 | XMS_ITS | Clinical Summary ---
[facility] Organization [facility] Address [address] [place] [address] Care Team Providers Care Transfer Controller Name Role Phone Provider, No Known Primary Care Provider Unavail able Encounters Date Type Department Care Team Description 03/16/2025 4:40 PM EDT Lab [facility] [address] [place] [phone] Immunodeficiency due to drug therapy; Leukopenia, unspecified [...] Serum / Plasma (03/16/2025 4:33 PM EDT) [facility] Itraconazole 1.1 ug/mL 03/23/2025 5:09 PM [...] PM EDT 03/16/2025 4:33 PM EDT [facility]ative [facility] 03/23/2025 5:09 PM EDT Test(s) 342011-[id number] was developed and its performance characteristics determined by [facility]. It has not been cleared or approved by the Food and Drug Administration. Performed at: 01 - Lab[address] [id number] Manager Of Drilling: Jacqui Cervantes MD, Phone: [phone] us Rocky Patino MD LAB BLOOD ORDERABLES Final Resul t [facility] [address] [place] [address], * (ABNORMAL) CBC Auto Differential (03/16/2025 4:33 PM EDT) WBC 2.56(L) 3.40 - 10.80 10*3/mm3 03/16/2025 5:17 PM EDT [facility] RBC 3.74(L) 4.14 - 5.80 10*6/mm3 03/16/2025 5:17 PM EDT [facility] Hemoglobin 10.7(L) 13.0 - 17.7 g/dL 03/16/2025 5:17 PM EDT [facility] Hematocrit 32.6(L) 37.5 - 51.0 % 03/16/2025 5:17 PM EDT [facility] MCV 87.2 79.0 - 97.0 fL 03/16/2025 5:17 PM EDT [facility] MCH 28.6 26.6 - 33.0 pg 03/16/2025 5:17 PM EDT [facility] MCHC 32.8 31.5 - 35.7 g/dL 03/16/2025 5:17 PM EDT [facility] RDW 15.5(H) 12.3 - 15.4 % 03/16/2025 5:17 PM EDT [facility] RDW-SD 48.6 37.0 - 54.0 fl 03/16/2025 5:17 PM EDT [facility] MPV 10.3 6.0 - 12.0 fL 03/16/2025 5:17 PM EDT [facility] Platelets 172 140 - 450 10*3/mm3 03/[facility]25 5:[facility] Neutrophil % 82.8(H) 42.7 - 76.0 % 03/16/2025 5:17 [facility] Lymphocyte % 9.0(L) 19.6 - 45.3 % 03/16/2025 5:17 PM EDT [facility] Monocyte % 7.0 5.0 - 12.0 % 03/16/2025 5:17 PM [facility] Eosinophil % 0.0(L) 0.3 - 6.2 % 03/16/2025 5:17 PM [facility] Basophil % 0.4 0.0 - 1.5 % 03/16/2025 5:17 PM [facility] Immature Grans % 0.8(H) 0.0 - 0.5 % 03/16/2025 5:17 PM [facility] Neutrophils, Absolute 2.12 1.70 - 7.00 10*3/mm3 03/16/2025 5:17 PM [facility] Lymphocytes, Absolute 0.23(L) 0.70 - 3.10 10*3/mm3 03/16/2025 5:17 PM [facility] Monocytes, Absolute 0.18 0.10 - 0.90 10*3/mm3 03/16/2025 5:17 [facility] Eosinophils, Absolute 0.00 0.00 - 0.40 10*3/mm3 03/16/2025 5:17 PM [facility] Basophils, Absolute 0.01 0.00 - 0.20 10*3/mm3 03/16/2025 5:17 [facility] Immature Grans, Absolute 0.02 0.00 - 0.05 10*3/mm3 03/16/2025 5:17 PM EDT [facility] nRBC 0.0 0.0 - 0.2 /100 WBC 03/16/2025 5:17 PM EDT [facility] Blood Venipuncture / Unknown 03/16/2025 4:33 PM EDT 03/16/2025 4:33 PM EDT us Rocky Patino MD LAB BLOOD ORDERABLES Final Resul t Performing Organization Address [facility] de Phone Number [facility]
[address] [place] [address], * (ABNORMAL) BNP (03/16/2025 4:33 PM EDT) proBNP 1,207.0(H) 0.0 - 900.0 pg/mL 03/16/2025 5:38 PM EDT [facility] Blood Venipuncture / Unknown 03/16/2025 4:33 PM EDT 03/16/2025 4:33 PM EDT Narrative [facility] - 03/16/2025 5:38 PM EDT This [...] ORDERABLES Final Resul t Performing Organization Address [facility] Co de Phone Number [facility]
[address] [place] [address], [place] [phone] * (ABNORMAL) Comprehensive Metabolic Panel (03/16/2025 4:33 PM EDT) Glucose 368(H) 65 - 99 mg/dL 03/16/2025 5:38 PM T [facility] BUN 32(H) 8 - 23 mg/dL 03/16/2025 5:38 PM [facility] Creatinine 0.95 0.76 - 1.27 mg/dL 03/16/2025 5:38 PM T [facility] Sodium 140 136 - 145 mmol/L 03/16/2025 5:38 PM T [facility] Potassium 3.9 3.5 - 5.2 mmol/L 03/16/2025 5:38 PM [facility] Comment:Slight hemolysis det ected by analyzer. Result may be falsely elevated. Chloride 101 98 - 107 mmol/L 03/16/2025 5:38 PM [facility] CO2 24.0 22.0 - 29.0 mmol/L 03/16/2025 5:38 PM T [facility] Calcium 8.7 8.6 - 10.5 mg/dL 03/16/2025 5:38 PM [facility] Total Protein 5.5(L) 6.0 - 8.5 g/dL 03/16/2025 5:38 PM [facility] Albumin 3.4(L) 3.5 - 5.2 g/dL 03/16/2025 5:38 PM [facility] ALT (SGPT) 25 1 - 41 U/L 03/16/2025 5:38 PM T [facility] AST (SGOT) 11 1 - 40 U/L 03/16/2025 5:38 PM T [facility] Alkaline Phosphatase 73 39 - 117 U/L 03/16/2025 5:38 PM T [facility] Total Bilirubin 0.6 0.0 - 1.2 mg/dL 03/16/2025 5:38 PM [facility] Globulin 2.1 gm/dL 03/16/2025 5:38 PM T [facility] Comment:Calculated Result A/G Ratio 1.6 g/dL 03/16/2025 5:38 PM EDT [facility] BUN/Creatinine Ratio 33.7(H) 7.0 - 25.0 03/16/2025 5:38 PM EDT [facility] Anion Gap 15.0 5.0 - 15.0 mmol/L 03/16/2025 5:38 PM EDT [facility] eGFR 84.5 >60.0 mL/min/1.7 3 03/16/2025 5:38 PM EDT [facility] Blood Venipuncture / Unknown 03/16/2025 4:33 PM EDT 03/16/2025 4:33 PM EDT Narrative [facility] - 03/16/2025 5:38 PM EDT GFR [...] MD LAB BLOOD ORDERABLES Final Resul t [facility]
[address] [place] [address], from Last 3 Months Insurance * Guarantor: Jose Luis Trevino Account Type Relation to Patient Date of Phone Billing Address Personal/Family Self 1950 [address] [place] [id number] [facility] Medicare [employer] PPO Care Teams Transfer Controller Relationship Specialty Start Date End Date Provider, [place] [address] PCP - General 01/14/25
--- OUTSIDE RECORDS SUMMARY | 2025-06-05 09:46 | XMS_ITS | Encounter Summary ---
Author Organization [facility] Address [address] [place] [address] Care Team Providers Care Oim Consultant Name Role Phone Rocky Almanzar MD Primary Care Provider [phone] Reason for Visit * Reason Comments Med Refill Encounter Details Date Type Department Care Team (Late Contact Info) Description 11/10/2021 Refill [facility] [address] [place] [address] Jason Romero MD [address] [address] Type 2 diabetes mellitus with other specified complication, with long-term current use of insulin ([facility]) Social History Tobacco Use Types Packs/Day [...] EDT Office Visit [facility] [address] [place] [phone] Melany Rosales, DO [address] [place] [address] 07/17/2025 2:00 PM EDT Office Visit [facility] Audiology [address], [address] [place] [address] Lottie Lund, AuD [address] [place] [address] 01/05/2026 11:00 AM EST Office Visit [facility] [place] [address] [place] [address] Vivian Macias S, OD [address] [place] [address] documented as of this encounter Visit Diagnoses Diagnosis Type 2 diabetes mellitus with other specified complication, with long-term current use of insulin (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
--- OUTSIDE RECORDS SUMMARY | 2025-06-05 09:47 | XMS_ITS | Encounter Summary ---
Author Organization [facility] Address [address] [place] [address] Care Team Providers Care Dragger Name Role Phone Rocky Almanzar MD Primary Care Provider [phone] Reason for Visit * Reason Onset Date Comments HCN - Patient Message 04/24/2025 Encounter Details Date Type Department Care Team (Late st Contact Info) Description 04/24/2025 Telephone [facility] Diabetes Education [address] [place] [phone] Rocky Almanzar MD [address] [place] [address] HCN - Patient Message Social History Tobacco [...] refill. Please contact patient Best contact number: [phone] (home) Optimal time of day to reach caller: Anytime Additional comments/information from caller: n/a Note: Please do not reply to this message. Follow-up communication and further actions as a result of this message need to be communicated with the patient directly, if the patient is not active onMyChart. If the patient is active on MyChart, they will receive notification of the communication/outcome via [employer]. documented in this encounter Plan of Treatment Upcoming Encounters Date Type Department Care Team (Late st Contact Info) Description 07/07/2025 11:40 AM EDT [facility] End[facility]ology [address] [place] [phone] Melany Rosales, DO [address] [place] [address] [place] [address] 07/17/2025 2:00 PM EDT Office Visit [facility] Audiology [address] [place] [address] Lottie Lund, AuD [address] [place] [address] 01/05/2026 11:00 AM EST [facility] [place] [address] [place] [address] Vivian Macias S, OD [address] [place] [address] documented as of this encounter [...] documented as of this encounter Care Teams Dragger Relationship Specialty Start Date End Date Rocky Almanzar MD [address] [place] [address] PCP - General 03/18/21 documented as of this encounter
--- OUTSIDE RECORDS SUMMARY | 2025-06-05 09:47 | XMS_ITS | Encounter Summary ---
Author Organization [facility] Address [address] [place] [address] Care Team Providers Care Legal Assistant Name Role Phone Rocky Almanzar MD Primary Care Provider [phone] Reason for Visit * Reason Comments Med Refill Encounter Details Date Type Department Care Team (Late st Contact Info) Description 05/04/2025 Refill [facility] Endocrinology [address] [place] [address] Jason Romero MD [address] [address] Type 2 diabetes mellitus with hyperglycemia, with long-term current use of insulin ([facility]) Social History Tobacco Use Types Packs/Day [...] Description 07/07/2025 11:40 AM EDT Office Visit [facility] Endocrinology [address] [place] [phone] Melany Rosales, DO [address] [place] [phone] 07/17/2025 2:00 PM EDT Office Visit [facility] Audiology [address] [place] [address] Lottie Lund, AuD [address] [place] [address] 01/05/2026 11:00 AM EST Office Visit [facility] [address] [place] [address] Vivian Macias S, OD [address] [place] [address] documented as of this encounter Visit Diagnoses Diagnosis Type 2 diabetes mellitus with hyperglycemia, with long-term current use of insulin ([facility]) documented in this encounter Additional Health Concerns Infection Onset Date Last Indicated Resolved Time 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
--- OUTSIDE RECORDS SUMMARY | 2025-06-05 09:47 | XMS_ITS | Encounter Summary ---
Author Organization [facility] Address [address] [place] [address] Care Team Providers Care Material Control Associate Name Role Phone Rocky Almanzar MD Primary Care Provider [phone] Encounter Details Date Type Department Care Team (Late st Contact Info) Description 04/28/2025 Telephone [facility] Endocrinology [address] [place] [address] Jason Romero MD [address] [place] [address] Social History Tobacco Use Types [...] with Derek's phone number for refills from [facility]. Pt's was on the phone and was able to take appropriate notes. 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 No other questions at this time. * Telephone Encounter - [facility] [place] - 04/28/2025 12:05 PM EDT Pt requesting a call back regarding his Leroy system not seeming to be working. documented in this encounter Plan of Treatment Upcoming Encounters Date Type Department Care Team (Late st Contact Info) Description 07/07/2025 11:40 AM EDT Office Visit [facility] Endocrinology [address] [place] [phone] Melany Rosales, DO [address] [place] [address] 07/17/2025 2:00 PM EDT Office Visit [facility] Audiology [address] [place] [address] Lottie Lund, AuD [address] [place] [address] 01/05/2026 11:00 AM EST Office Visit [facility] [address] [place] [address] Vivian Macias S, OD [address] [place] [address] documented as of this encounter [...] documented as of this encounter Care Teams Material Control Associate Relationship Specialty Start Date End Date Rocky Almanzar MD [address] [place] [address] PCP - General 03/18/21 documented as of this encounter
--- OUTSIDE RECORDS SUMMARY | 2025-06-05 09:47 | XMS_ITS | Encounter Summary ---
Author Organization Healthcare Address [address] [place] [address] Care Team Providers Care 411 Directory Assistance Operator Name Role Phone Rocky Almanzar MD Primary Care Provider [phone] Reason for Visit * Reason Comments Med Refill Encounter Details Date Type Department Care Team (Late Contact Info) Description 05/20/2021 Refill [facility] Endocrinology [address] [place] [address] Jason Romero MD [address] [address] Social History Tobacco Use Types [...] Description 07/07/2025 11:40 AM EDT [facility] [address] [place] [address] Melany Rosales, DO [address] [place] [address] 07/17/2025 2:00 PM EDT Office Visit [facility] Audiology [address] [place] [address] Lottie Lund, AuD [address] [place] [address] 01/05/2026 11:00 AM EST Office Visit [facility] [place] [address] [place] [address] Vivian Macias, OD [address] [place] [address] documented as of this encounter Visit Diagnoses Not on filedocumented in this encounter Additional Health Concerns Infection Onset Date Last Indicated Resolved Time 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
--- OUTSIDE RECORDS SUMMARY | 2025-06-05 09:47 | XMS_ITS | Clinical Summary ---
Author Organization [facility] Address [address] [place] [address] Care Team Providers Care Systems Operator Name Role Phone Rocky Almanzar MD Primary Care Provider [phone] Allergies Active Allergy Reactions Criticality Noted Date [...] Type Department Care Team Description 05/04/2025 Refill [facility] Endocrinology [address] [place] [phone] Jason Romero MD Type 2 diabetes mellitus with hyperglycemia, with long-term current use of insulin ([facility]) 04/28/2025 Telephone [facility] Endocrinology [address] [place] [address] Jason Romero MD 04/24/2025 Telephone [facility] Diabetes Education [address] [place] [address] Rocky Almanzar MD HCN - [...] Description 07/07/2025 11:40 AM EDT [facility] Endocr[facility]ology [address] [place] [phone] Melany Rosales, DO [address] [place] [address] 07/17/2025 2:00 PM EDT Office Visit [facility] Audiology [address] [place] [address] Lottie Lund, AuD [address] [place] [address] 01/05/2026 11:00 AM EST [facility] Visit [facility] [address] [place] [address] Vivian Macias S, OD [address] [place] [address] Health Maintenance Due Date Last [...] A1C 03/17/202509/2025, 05/23/2024, 11/22/2023, Additional history exists [id number] Vaccine (7 - Moderna risk season) 2025 [...] this topic Medical Devices Implanted Type Area Design Engineering Manager Device Identifier Shelf Expiration Date Model / Serial / Lot Roseline Stanleyk Advantage Ci Hifocus 1j Electrode--06/05 Implanted:06/05 by Ky Del Rio MD (Quantity not on file) Cochlear Left: Ear [facility] [id number] / [id number] / Description:Roseline 90K Advant age CI HiFocus 1J electrode--cochlear implant by Dr. Del Rio at [facility] on 06/21/2017, operative note in Epic. LEFT EAR. Roseline ULTRA 3D Cochlear implant REF: [id number] Serial number: [id number] Procedures Procedure Name Priority Date/Time Associated Diagnosis [...] % [facility] Kit Lot Number [id number] [facility] Kit Expiration Date 10/04/26 HEALTHCARE [facility] Blood Venous blood specimen / Unknown 12/16/2024 12:27 PM EST Jason Romero MD POINT OF CARE TEST ENTER/ED IT ORDERABLES Final Result [email or web address] [address] [place] [address] * COLONOSCOPY (08/03/2017) Anatomical Region Laterality Modality [...] Date Last Indicated MRSA 03/30/2021 03/30/2021 Insurance [facility] MEDICARE EYEMED Care Teams Systems Operator Relationship Specialty Start Date End Date Rocky Almanzar MD Replaced by [facility] [address] [place] [address] PCP - General 03/18/21
--- OUTSIDE RECORDS SUMMARY | 2025-06-05 09:48 | XMS_ITS | Patient Health Record ---
Author Organization [facility] Address [address] [facility] [address] [id number] Care Team Providers Care Copy Holder Name Role Phone Shauna Almanzar Primary Care Provider Emir Berger Unavailable [phone] Trinity Medeiros Unavailable [phone] Doretha Burns Unavailable [phone] Allergies Allergen (clinical drug ingredient) Drug/Non Drug [...] 5.5 Performing Lab: Notes/Report: Test performed by [employer] [facility] , [address], [place] [address] Kristian Trevino MD, Manager [employer] CLIA: [id number] Sodium 139 135-145 mmol/L Potassium 3.7 3.5-5.3 [...] 695 Performing Lab: Notes/Report: Test performed by [facility], [place] [address] [facility] , [address], [place] [address] Kristian Trevino MD, Manager [employer] CLIA: [id number] Albumin/Creatinine Ratio, Urine 695 0-30 ug/mg Microalbumin, Urine, Random 16.4 Creatinine, Urine 23.6 Urinalysis - Inhouse Reviewed date:01/09/2025 01:37:28 PM Interpretation: Performing Lab: Notes/Report: Color/Clarity red/cloudy Leuk Neg Nitrite Neg Urobili 3.2 Protein 2+ pH 6.0 Blood 3+ Sp. Gr. 1.015 Ketone Neg Bili Neg Gluc 2+ Rapid Strep- Inhouse Reviewed date:09/16/2024 01:23:25 PM Interpretation:Positive Performing Lab: Notes/Report: Positive strep test Pos Glycohemoglobin A1c (in hous e) Reviewed date:10/10/2024 10:20:31 AM Interpretation: Performing Lab: Notes/Report: glycohemoglobin 7.7% 5 - 6.5 % CBC Venipuncture (in house) Reviewed date:01/09/2025 01:37:42 [...] 229 Performing Lab: Notes/Report: Test performed by [facility], [address] , [address], [place] [address] Kristian Trevino MD, Manager [employer] CLIA: [id number] Sodium 138 135-145 mmol/L Potassium 4.3 3.5-5.3 [...] want Performing Lab: Notes/Report: does not want H-BMP Reviewed date:09/08/2024 11:20:09 AM Interpretation:cl 109, co2 21, bun 25, [id number] Performing Lab: Notes/Report: NA 137 136-145 mmol/L K 3.8 3.5-5.1 mmoL/L CL 109 98-107 mmol/L CO2 21 22.0-30.0 mmol/L GAP 10.8 5-15 mEq/L BUN 25 9-20 mg/dl CREATT 1.20 0.66-1.25 mg/dl GFRAA 72 >60 ML/MIN EGFR 59 >60 ml/min GLU 380 74-100 mg/dl CA 9.0 8.4-10.2 mg/dl H-CBC [...] 1.015 Ketone Neg Bili 1+ Gluc 2+ H-CBC Reviewed date:08/26/2024 02:54:53 PM Interpretation: Performing [...] 242 74-100 mg/dl CA 8.4 8.4-10.2 mg/dl H-TSH Reviewed date:11/13/2024 01:33:09 PM Interpretation:Normal Performing Lab: Notes/Report: TSH 3.05 0.465-4.68 uIU/mL Medications Medication SIG (Take, Route, Frequency, Duration) Notes Start Date End Date Status Levothyroxine Sodium 50 mcg 1 tablet by mouth daily; Duration: 90 days Active FreeStyle Leroy 3 [place] - as directed 05/12/2025 Active FreeStyle Leroy [...] W/U Status Risk Notes Problem Essential hypertension (48063950) Essential (primary) hypertension (I10) Active confirmed Problem Vitamin D deficiency (27869741) Vitamin D deficiency (E55.9) Active confirmed Problem Essential hypertension (01439278) Essential hypertension (I10) Active confirmed Problem Screening for malignant neoplasm of prostate (565777816) Prostate cancer screening (Z12.5) Active confirmed Problem Paroxysmal atrial fibrillation (973366898) Paroxysmal atrial fibrillation (I48.0) Active confirmed Problem Hyperglycemia due to type 2 diabetes mellitus (331786538407531) Type 2 diabetes mellitus with hyperglycemia (E11.65) Active confirmed Problem Mixed hyperlipidemia (777734863) Mixed hyperlipidemia (E78.2) Active confirmed Problem Hyperlipidemia (70673974) Hyperlipidemia, unspecified (E78.5) Active confirmed Problem Hereditary hemochromatosis (32243881) 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) Active confirmed Problem Chronic respiratory failure (56478431) Chronic respiratory failure with hypoxia (J96.11) Active confirmed Problem Autoimmune hepatitis (135664207) Autoimmune hepatitis (K75.4) Active confirmed Problem Cholelithiasis without obstruction (64313562) Calculus of gallbladder without cholecystitis without obstruction (K80.20) Active confirmed Problem Cochlear implant status (Z96.21) Active confirmed Problem Male erectile disorder (109481395) Male erectile disorder (N52.9) Active confirmed Problem Long-term current use of insulin (307252707) retirement (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 (Z79.4) Active confirmed Problem Type II diabetes mellitus without complication (649580062) Type 2 diabetes mellitus without complication (E11.9) Active confirmed Problem Acquired hypothyroidism (466825427) Acquired hypothyroidism (E03.9) Active confirmed Problem Pulmonary fibrosis (02862346) Pulmonary fibrosis (J84.10) Active confirmed Problem Chronic fatigue syndrome (82325778) Chronic fatigue (R53.82) Active confirmed Problem COPD - Chronic obstructive pulmonary disease (26366117) Chronic obstructive pulmonary disease, unspecified COPD type (J44.9) Active confirmed Problem Pneumonia (541182035) Pneumonia of right lower lobe due to infectious organism (J18.9) Active confirmed Problem Hearing loss (68870412) Hearing loss, bilateral (H91.93) Active confirmed Problem Disorder of adrenal gland (32895553) 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) Active confirmed Problem Neutropenia (361382943) Neutropenia, unspecified type (D70.9) Active confirmed Problem Interstitial lung disease (960800200) Interstitial lung disease (J84.9) Active confirmed Problem Seasonal allergic rhinitis (531163466) Seasonal allergic rhinitis, unspecified allergic rhinitis trigger (J30.2) Active confirmed Problem Granulocytopenia (511570981) 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 confirmed Problem Systemic lupus erythematosus (27624211) Lupus (systemic lupus erythematosus) (M32.9) Active confirmed Problem Cardiac arrhythmia (371561609) Cardiac arrhythmia, unspecified cardiac arrhythmia type (I49.9) Active confirmed Problem Malnutrition, calorie (188919609) Caloric malnutrition (E46) Active confirmed Problem Benign prostatic hypertrophy without outflow obstruction (478794661) BPH without urinary obstruction (N40.0) Active confirmed Problem Allergic rhinitis caused by pollen (92823571) Acute seasonal allergic rhinitis due to pollen (J30.1) Active confirmed Problem Sensorineural hearing loss, bilateral (527516222) Sensorineural hearing loss (SNHL) of both ears (H90.3) Active confirmed Problem Cholestatic hepatitis (28680182) Cholestatic hepatitis (K75.89) Active confirmed Problem Skin sensation disturbance (55216393) Sensitive skin (R20.3) Active confirmed Problem Dilatation of aorta (22459738) Dilatation of aorta (I77.819) Active confirmed Problem Tomography - chest abnormal (171934331) Abnormal CT scan, chest (R93.89) Active confirmed Problem Left atrial dilatation (407698510) Left atrial dilatation (I51.7) Active confirmed Problem Chronic vascular insufficiency of intestine (087155502) 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 Problem Protein malnutrition (59892595) Protein malnutrition (E46) Active confirmed Vital Signs Heart Rate 85 /min 04/30/2025 Blood pressure diastolic 62 mm Hg 04/30/2025 Height 65 in 04/30/2025 Blood pressure systolic 130 mm Hg 04/30/2025 Weight 133.8 lbs 04/30/2025 BMI 22.26 kg/m2 04/30/2025 Encounters Encounter [facility] Date [facility] [address] [place] [id number] 09/05/2024 Shauna Almanzar Pneumonia of left lo wer lobe due to infectious organism J18.9 ; Interstitial lung disease J84.9 ; Chronic respiratory failure with hypoxia J96.11 ; 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 ; Autoimmune hepatitis K75.4 ; Protein malnutrition E46 and Caloric malnutrition E46 [facility] [address] [facility] [address] [place], [place] [id number] 09/16/2024 Trinity Medeiros Strep pharyngitis J0 2.0 and Oral candidiasis B37.0 [facility] [address] [place], [place] [id number] 10/09/2024 Shauna Almanzar Lesion of adrenal gl and E27.9 ; Essential hypertension I10 ; Type 2 diabetes mellitus without complication E11.9 ; Acquired hypothyroidism E03.9 ; Hearing loss, bilateral H91.93 ; Cochlear implant status Z96.21 ; Protein malnutrition E46 ; Chronic obstructive pulmonary disease, unspecified COPD type J44.9 and Encounter for immunization Z23 [facility] [address] [facility] [address] [place] [id number] 11/03/2024 Emir Cora Acute cough R05.1 [facility] [address] [place] [id number] 11/07/2024 Shauna Almanzar Type 2 diabetes aquilino itus without complication E11.9 ; Acquired hypothyroidism E03.9 and Hereditary hemochromatosis E83.110 [facility] [address] [place] [id number] 01/09/2025 Shauna Almanzar Type 2 diabetes aquilino itus without complication E11.9 ; Hereditary hemochromatosis E83.110 ; Cochlear implant status Z96.21 ; Chronic obstructive pulmonary disease, unspecified COPD type J44.9 ; Essential (primary) hypertension I10 ; Protein malnutrition E46 and Gross hematuria R31.0 [facility] [address] [place] [id number] 01/15/2025 Shauna Almanzar Interstitial lung disease J84.9 ; 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 ; Autoimmune hepatitis K75.4 ; Protein malnutrition E46 ; Cochlear implant status Z96.21 ; Type 2 diabetes mellitus without complication E11.9 and Hematuria R31.9 [facility] [address] [place] [id number] 02/11/2025 Emir Cora Type 2 diabetes aquilino itus with hyperglycemia E11.65 ; retirement (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.4 ; Gross hematuria R31.0 and Body mass index (BMI) of 19.0 to 19.9 in adult Z68.1 [facility] [address] [facility] [address] [place] [id number] 03/13/2025 Doretha Burns Drug interaction Z78 .9 [facility] [address] [facility] [address] [place], [place] [id number] 04/02/2025 Shauna Almanzar Type 2 diabetes aquilino itus without complication E11.9 ; 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 ; Cholestatic hepatitis K75.89 ; terminal makeup operator (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.4 ; 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 ; Generalized weakness R53.1 and BMI 20.0-20.9, adult Z68.20 [facility] [address] [place], [place] [id number] 04/30/2025 Shauna Almanzar Type 2 diabetes aquilino itus with hyperglycemia E11.65 ; retirement (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.4 ; Adrenal [...] adult Z68.22 and Cochlear implant status Z96.21 [facility] [address] [place], [place] [id number] 05/12/2025 Shauna Almanzar [facility] [address] [place], [place] [id number] 06/04/2025 Shauna Almanzar [facility] [address] [place], [place] [id number] 09/01/2024 J Rogerio Almanzar [facility] [address] [place], [place] [id number] 09/04/2024 Shauna Almanzar [facility] [address] [place], [place] [id number] 09/08/2024 Shauna Almanzar [facility] [address] [place], [place] [id number] 09/10/2024 Shauna Almanzar [facility] [address] [place], [place] [id number] 09/15/2024 Shauna Almanzar [facility] [address] [place], [place] [id number] 09/16/2024 Shauna Almanzar [facility] [address] [place], [place] [id number] 09/25/2024 Shauna Almanzar [facility] [address] [place], [place] [id number] 11/03/2024 Emir Berger [facility] [address] [facility] [address] [place] [id number] 01/12/2025 Shauna Almanzar [facility] [address] [facility] [address] [place] [id number] 05/12/2025 Shauna Almanzar Assessments Encounter Date Diagnosis (ICD Code) Assessment Notes Treatment Notes Treatment Clinical Notes Section Notes 09/05/2024 Pneumonia of left lower lobe due to infectious organism (ICD-10 - J18.9) 09/16/2024 Strep pharyngitis (ICD-10 - J02.0) finish abx; gargle q2h prn; infectious precautions; change toothbrush in 3-4 days; good water intake with tylenol/motrin prn; brush teeth with water swish and spit x3 tid 09/16/2024 Oral candidiasis (ICD-10 - B37.0) 10/09/2024 Essential hypertension (ICD-10 - I10) 09/05/2024 Interstitial lung disease (ICD-10 - J84.9) 10/09/2024 Lesion of adrenal gland (ICD-10 - [...] 01/15/2025 Interstitial lung disease (ICD-10 - J84.9) 03/13/2025 Drug interaction (ICD-10 - Z78.9) Discussed [...] mellitus with hyperglycemia (ICD-10 - E11.65) 04/30/2025 retirement (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 (ICD-10 - Z79.4) 02/11/2025 Type 2 diabetes mellitus with hyperglycemia (ICD-10 - E11.65) Patient needs to resume use of his CGM 02/11/2025 retirement (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 (ICD-10 - Z79.4) 02/11/2025 Gross hematuria (ICD-10 - R31.0) Plan follow up with Dr. Lund soon, after he sees ID and GI in the next week 01/09/2025 Cochlear implant status (ICD-10 - Z96.21) 04/30/2025 Adrenal abnormality (ICD-10 - E27.9) 04/02/2025 Adrenal abnormality (ICD-10 - E27.9) 01/15/2025 Autoimmune hepatitis (ICD-10 - K75.4) 11/07/2024 Hereditary hemochromatosis (ICD-10 - E83.110) 10/09/2024 Type 2 diabetes mellitus without complication (ICD-10 - E11.9) 09/05/2024 Chronic respiratory failure with hypoxia (ICD-10 - J96.11) 09/05/2024 Adrenal abnormality (ICD-10 - E27.9) 10/09/2024 Acquired hypothyroidism (ICD-10 - E03.9) 01/09/2025 Chronic obstructive pulmonary disease, unspecified COPD type (ICD-10 - J44.9) 01/15/2025 Protein malnutrition (ICD-10 - E46) 04/30/2025 Interstitial lung disease (ICD-10 - J84.9) 04/02/2025 Cholestatic hepatitis (ICD-10 - K75.89) 02/11/2025 Body mass index (BMI) of 19.0 to 19.9 in adult (ICD-10 - Z68.1) 04/30/2025 Essential (primary) hypertension (ICD-10 - I10) 04/02/2025 terminal makeup operator (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 (ICD-10 - [...] - E46) 04/02/2025 Histoplasmosis (ICD-10 - B39.9) 04/30/[address] scan, chest (ICD-10 - R93.89) 04/30/2025 Calculus of gallbladder without cholecystitis without obstruction (ICD-10 - K80.20) 01/15/2025 Hematuria (ICD-10 - R31.9) 01/09/2025 Gross hematuria (ICD-10 - R31.0) 04/02/2025 Generalized weakness (ICD-10 - R53.1) 09/05/2024 Caloric malnutrition (ICD-10 - E46) 10/09/2024 Protein malnutrition (ICD-10 - E46) 10/09/2024 Chronic obstructive [...] H-TSH 11/07/2024 Next Appt Details Provider Name:Shauna Mitchell er, 07/03/2025 11:45:00 AM, [address], [place], [id number], Provider Name:Shauna Beatty 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 Smalls and Dr. Thakur Atrial dysrrhythmia, see notes 2011 hearing loss 2013, hearing aids Impaired fasting glucose Gets yearly eye exams, [facility] Questionable Dx Lupus erythematosus 2016 Granuloma [...]
[2025-06-05 10:12] LABS: Hematocrit 35.2 % (42.0-52.0); Hemoglobin 11.0 g/dL (14.1-18.0); Immature Granulocytes % 1.5 %; Mean Corpuscular HGB Conc 31.3 g/dL (31.8-35.4); Mean Corpuscular Hemoglobin 26.3 pg (27.0-31.2); Mean Corpuscular Volume 84.2 fl (80-94); Nucleated Red Blood Cells % 0 %; Platelet Count 471 K/mm3 (142-424); Red Blood Count 4.18 M/mm3 (4.60-6.20); Red Cell Distribution Width-SD 56.2 fL; White Blood Count 2.7 K/mm3 (4.8-10.8)
[2025-06-05 10:59] LABS: NT Pro Brain Natriuretic Pep. 463 pg/mL (0-125)
[2025-06-05 11:01] LABS: Alanine Aminotransferase 20 U/L (12-78); Albumin Level 3.1 g/dl (3.5-5.0); Albumin/Globulin Ratio 1.2 (1.1-1.8); Alkaline Phosphatase 254 U/L (38-126); Anion Gap 11.2 mEq/L (5-15); Aspartate Amino Transferase 33 U/L (17-59); Bilirubin,Total 0.5 mg/dl (0.2-1.3); Blood Urea Nitrogen 9 mg/dl (9-20); Calcium 9.0 mg/dl (8.4-10.2); Carbon Dioxide 25 mmol/L (22.0-30.0); Chloride 106 mmol/L (98-107); Creatinine,Serum 1.00 mg/dl (0.66-1.25); Estimated Glomerular Filt Rate 73 ml/min (>60); GFR (African American) 88 ML/MIN (>60); Globulin 2.5 g/dL (1.3-3.2); Glucose 272 mg/dl (74-100); Potassium 3.2 mmoL/L (3.5-5.1); Sodium 139 mmol/L (136-145); Total Protein,Serum 5.6 g/dl (6.3-8.2)
[2025-06-07 14:14] LABS: Cortisol,AM 10.4 ug/dL (6.2-19.4)
== END 2025-06-05 23:59 | disposition home or self-care (01) ==
LOC: LAB 09:44
PROVIDERS: Internal Medicine Gastroenterology; PCP Family Medicine; Visit Provider Internal Medicine Infectious Disease
DX: E27.8 Other specified disorders of adrenal gland (principal); B39.3 Disseminated histoplasmosis capsulati; B39.0 Acute pulmonary histoplasmosis capsulati
CPT/HCPCS: 36415; 80053; 80299; 82533; 83880; 85025

== ENCOUNTER 2025-06-10 10:18 | Outpatient (CLI) | payer MEDICARE, SELFPAY ==
--- OUTSIDE RECORDS SUMMARY | 2025-04-02 10:15 | XMS_ITS ---
Author Organization [facility] Address 1210 [facility] [address] [id number] Care Team Providers Care Code Inspector Name Role Phone Shauna Almanzar Primary Care [...] 5.5 Performing Lab: Notes/Report: Test performed by [email or web address] [facility] , [address], [place] [address] Kristian Trevino MD, Direct Sales Representative CLIA: [id number] Sodium 139 135-145 mmol/L Potassium 3.7 3.5-5.3 [...] 695 Performing Lab: Notes/Report: Test performed by [facility] [address] [place] [address] , [address], [place] [address] Kristian Trevino MD, Direct Sales Representative CLIA: [id number] Albumin/Creatinine Ratio, Urine 695 0-30 ug/m g [...] Grigsby 05/18/2025 02:47:51 PM > faxed to [facility] PT Referral Priority Routine REASON FOR [...] 04/02/2025 Encounters Encounter Location Date [facility] [address] [id number] 04/02/2025 Shauna Almanzar Type 2 diabetes aquilino itus without complication E11.9 ; 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 ; Cholestatic hepatitis K75.89 ; director long term care (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.4 ; 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 ; Generalized weakness R53.1 and BMI 20.0-20.9, adult Z68.20 Assessments Encounter Date Diagnosis (ICD Code) Assessment Notes Treatment Notes Treatment Clinical Notes Section Notes 04/02/2025 Type 2 diabetes mellitus without complication (ICD-10 - E11.9) 04/02/2025 Adrenal abnormality (ICD-10 - E27.9) 04/02/2025 Cholestatic hepatitis (ICD-10 - K75.89) 04/02/2025 halfway (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 (ICD-10 - Z79.4) [...] Name:Shauna Rogeriohema Merida er, 07/03/2025 11:45:00 AM, [address] [place] [address], [address], [place], [place], [id number], Provider Name:Shauna Mitchelljerri er, 07/06/2025 03:34:00 PM, [address] [place] [address], [address], [place], [place], [id number], Progress Notes * HERMILA GOLDEN GINOOB: [birth year] (75 yo M)Acc No.[id number]:04/02/2025 Progress Notes Patient: HERMILA BUCIO Provider: Shauna Almanzar M.D. 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 B [place] 20.0-20.9, adult - Z68.20? Plan: * Treatment: [...] G 2211 Complex e/[place], [address] GLYCATED HEMOGLOBIN TEST, Modifiers: QW , G8752 [...] * Images: Billing Information: * Visit Code: 65512 Office Visit, Est Pt., Level 4. * Procedure Codes: G2211 Complex e/[place]. [address] GLYCATED HEMOGLOBIN TEST. Modifiers: QW G8752 MOST RECENT SYSTOLIC BP < 140MM HG. G8754 MOST RECENT DIASTOLIC BP < 90MM HG. 3046F HEMOGLOBIN A1C LEVEL > 9.0%. G8420 BMI<30 AND >=22 CALC & DOCU. 1036F TOBACCO NON-USER. 3017F COLORECTAL CA SCREEN DOC REV. * Electronic signature of Shauna Almanzar MD on 06/10/2025 at 10:22 AM EDT Sign off status: Pending * Provider: Shauna Almanzar M.D. Date: 0 04/02/2025 Generated for Printi ng/Faxing/eTransmitting on: 0 06/10/2025 10:22 AM EDT History and Physical Notes * [...]
--- OUTSIDE RECORDS SUMMARY | 2025-04-17 10:26 | XMS_ITS ---
Author Organization [facility] Address [address] [place] [address] [place] [address] Phone Care Team Providers Care Smelting Engineer Name Role Phone Sukumar CUEVAS, Rocky Griggs [ ] Conditions or Problems No information available. Medications Medication Instructions Start Date Stop Date Generic Name [facility] Provider budesonide 3 mg by mouth as needed as directed budesonide [facility] EZETIMIBE 10 MG TABS 1 tablet by mouth once a day ezetimibe [id number] [facility] XARELTO 20 MG TABS rivaroxaban [id number] [facility] PRAVASTATIN SODIUM 20 MG TABS 1 tablet by mouth once a day pravastatin 95956023864 [facility] aspirin 81 mg capsule 1 capsule by mouth once a day aspirin [facility] Medications Administered No information available. Allergies, Adverse Reactions, Alerts No information available. Results Date Name Value Unit Range Flag Description Office Visit: Office Visit: 11 SMOK STATUS Former smoker Tob acco smoking status MEDS REVIEW Done Documenta tion of current medications (procedure) Plan of Care Type Date Detail Appointment 11:00 AM Rocky Patino MD, [address] [facility], [address], [place], [address], Pending order CMP Pending order CBC with [...]
--- OUTSIDE RECORDS SUMMARY | 2025-04-30 10:00 | XMS_ITS ---
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) Ref[facility] Referring Provider First Name Shauna Beatty [...] W/U Status Risk Notes Problem Cardiac arrhythmia (311165131) Cardiac arrhythmia, unspecified cardiac arrhythmia type (I49.9) Active confirmed Problem Chronic vascular insufficiency of intestine (426136175) 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 Vital Signs Weight 133.8 lbs 04/30/2025 Blood pressure systolic 130 mm Hg 04/30/20 25 Blood pressure diastolic 62 mm Hg 025 Heart Rate 85 /min 04/30/2025 Height 65 in 04/30/2025 BMI 22.26 kg/m2 04/30/2025 Encounters Encounter Location Date Provider Diagnosis [facility] [address] [id number] 04/30/2025 Shauna Almanzar Type 2 diabetes aquilino itus with hyperglycemia E11.65 ; oil heaterman (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.4 ; Adrenal [...] Name:Shauna Merida , 07/03/2025 11:45:00 AM, 1210 [facility] 36 [facility], [address], [place], [place], [id number], Provider Name:Shauna Merida , 07/06/2025 03:34:00 PM, 1210 [facility] 36 [facility], [address], [place], [place], [address], Progress Notes * HERMILA GOLDENOB: [birth year] (75 yo M)Acc No.[id number]:04/30/2025 Progress Notes Patient: HERMILA BUCION Provider: Shauna Almanzar M.D. :1950 A ge:75 Y S ex:Male Date:04/30/2025 Address:[address] [place] [address] [address] [place], [id number] Subjective: * Chief Complaints: * 1 . 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 B IN 22.0-22.9, adult - Z68.22 1 3. C [...] * Images: Billing Information: * Visit Code: 87385 Office Visit, Est Pt., Level 4. * Procedure Codes: G2211 Complex e/m [place] add on. 1036F TOBACCO NON-USER. G8420 BMI<30 AND >=22 CALC & DOCU. G8950 PREHTN/HTN BP DOC INDCD F/U DOC. G8752 MOST RECENT SYSTOLIC BP < 140MM HG. G8754 MOST RECENT DIASTOLIC BP < 90MM HG. * Electronic signature of Shauna Almnazar MD on 06/10/2025 at 10:22 AM EDT Sign off status: Pending * Provider: Shauna Almanzar M.D. Date: 0 04/30/2025 Generated for Printi ng/Faxing/eTransmitting on: 0 06/10/2025 [...]
--- OUTSIDE RECORDS SUMMARY | 2025-06-09 06:00 | XMS_ITS ---
Author Organization [facility] Address 1210 [facility] [address] [id number] Care Team Providers Care Float Operator Name Role Phone Shauna Almanzar Primary Care Provider Emir Berger Unavailable [phone] Allergies Allergen (clinical drug ingredient) Drug/Non Drug [...] 232 Performing Lab: Notes/Report: Test performed by [employer] [facility] , [address], [place] [address] Kristian Trevino MD, Global Marketing Manager CLIA: [id number] Sodium 141 135-145 mmol/L Potassium 3.0 3.5-5.3 [...] Interpretation:23 Performing Lab: Notes/Report: Test performed by [employer] [address] , [facility], [place] [address] Kristian Trevino MD, Global Marketing Manager CLIA: [id number] Creatine Kinase 23 20-200 U/L T-B-Nljkbxtb Protein (CRP) Reviewed date:06/10/2025 08:30:05 AM Interpretation:4.00 Performing Lab: Notes/Report: Test performed by [employer] [address] , [address], [place] [address] Kristian Trevino MD, Global Marketing Manager CLIA: [id number] C-Reactive Protein (CRP) 4.00 <0.50 mg/dL P-Sed Rate (ESR) Reviewed date:06/10/2025 08:30:05 AM Interpretation:31 Performing Lab: Notes/Report: Test performed by [employer] [address] [place] [address] , [address], [place] [address] Kristian Trevino MD, Global Marketing Manager CLIA: [id number] Erythrocyte Sedimentation Ra te (ESR), Automated 31 <21 mm/hr P-TSH reflex to FT4 Reviewed date:06/10/2025 08:30:05 AM Interpretation:Normal Performing Lab: Notes/Report: Test performed by [employer] [address] [place] [address] , [address], [place] [address] Kristian Trevino MD, Global Marketing Manager CLIA: [id number] TSH reflex to FT4 3.44 0.43-5.25 mU/L P-Vitamin D 25-Hydroxy Reviewed date:06/10/2025 08:30:05 AM Interpretation:Normal Performing Lab: Notes/Report: Test performed by [employer] [address] [place] [address] , [address], [place] [address] Kristian Trevino MD, Global Marketing Manager CLIA: [id number] Vitamin D 25-Hydroxy 57.8 30.0-100.0 ng/mL Interpretation [...] Duration: 90 days Active FreeStyle Leroy 3 [place] - as directed 05/12/2025 Not-Taking Levothyroxine Sodium [...] Status W/U Status Risk Notes Problem Anorexia (R63.0) Active confirmed Vital Signs Weight 130 lbs 06/09/2025 Blood pressure systolic 112 mm Hg 06/09/20 25 Blood pressure diastolic 68 mm Hg 025 Heart Rate 64 /min 06/09/2025 Height 65 in 06/09/2025 BMI 21.63 kg/m2 06/09/2025 Encounters Encounter Location Date Provider Diagnosis [facility] [address] [place] [address] 36 [facility] [address] [place] [id number] 06/09/2025 Emir Berger Generalized weakness R53.1 ; [...] rt test results, Reason: Provider Name:Shauna Merida , 07/03/2025 11:45:00 AM, [address] [place] [address], [facility] [address], [place], [id number], Provider Name:Shauna Merida , 07/06/2025 03:34:00 PM, [address] [place] [address], [facility] [address], [place], [id number], Progress Notes * HERMILA GOLDENOB: [birth year] (75 yo M)Acc No.[id number]:06/09/2025 Progress Notes Patient: HERMILA BUCIO BENJIE Provider: Jaden Berger M.D. :1950 A ge:75 Y S ex:Male Date:06/09/2025 Address:[address] [place] [address], [facility] Pcp:Shauna Almanzar Subjective: * Chief [...] portal: alexa...#[email or web address], type 2 diabetes, followed at [facility], 06/05/2019 CT: healing of R [...] Scalp Infection 02/23/2016, implant removal 01/17/2017, pneumonia 06/05. * Family History: F ather: 91 yrs. [...] mouth daily , Not-Taking FreeStyle Leroy 3 [place] - Device as directed , Not-Taking FreeStyle [...] AM EDT > See phone encounter ?LAB: C-G-Eewbiibo Protein (CRP) (Collection Date & Time - [...] G 2211 Complex e/[place], [address] CBC WITH AUTO DIFF * Follow Up: v ia phone to report test results * Images: Billing Information: * Visit Code: 20593 Office Visit, Est Pt., Level 4. * Procedure Codes: G2211 Complex e/[place]. [address] CBC WITH AUTO DIFF. * Electronic signature of Elidia Berger MD on 06/10/2025 at 10:23 AM EDT Sign off status: Pending * Provider: Jaden Berger M.D. Date: 06/09/2025 Generated for Marissa mendoza/Rei/eTransmitting on: 06/10/2025 10:23 AM EDT History and Physical Notes * [...]
--- OUTSIDE RECORDS SUMMARY | 2025-06-10 10:22 | XMS_ITS | Encounter Summary ---
Author Organization [facility] Address [address] [place] [address] Care Team Providers Care Straightener And Aligner Name Role Phone Rocky Almanzar MD Primary Care Provider [phone] Reason for Visit * Reason Comments Med Refill Encounter Details Date Type Department Care Team (Late Contact Info) Description 11/10/2021 Refill [facility] [address] [place] [address] Jason Romero MD [address] [address] Type 2 diabetes mellitus with other specified complication, with long-term current use of insulin ([facility] Social History Tobacco Use Types Packs/Day Years [...] EDT Office Visit [facility] [address] [place] [address] Melany Rosales, DO [address] [place] [address] 07/17/2025 2:00 PM EDT Office Visit [facility] Audiology [address], [address] [place] [address] Lottie Lund, AuD [address] [place] [address] 01/05/2026 11:00 AM EST Office Visit [facility] [place] [address], [address] [place] [address] Vivian Macias S, OD [address] [place] [address] documented as of this encounter Visit Diagnoses Diagnosis Type 2 diabetes mellitus with other specified complication, with long-term current use of insulin (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
--- OUTSIDE RECORDS SUMMARY | 2025-06-10 10:22 | XMS_ITS | Encounter Summary ---
Author Organization [facility] Address [address] [place] [address] Care Team Providers Care Histologic Aide Name Role Phone Rocky Almanzar MD Primary Care Provider [phone] Reason for Visit * Reason Onset Date Comments HCN - Patient Message 04/24/2025 Encounter Details Date Type Department Care Team (Late st Contact Info) Description 04/24/2025 Telephone [facility] Diabetes Education [address] [place] [phone] Rocky Almanzar MD [address] [place] [address] HCN - Patient Message Social History Tobacco [...] refill. Please contact patient Best contact number: [phone] (home) Optimal time of day to reach caller: Anytime Additional comments/information from caller: n/a Note: Please do not reply to this message. Follow-up communication and further actions as a result of this message need to be communicated with the patient directly, if the patient is not active onMyChart. If the patient is active on MyChart, they will receive notification of the communication/outcome via TIMPIKhart. documented in this encounter Plan of Treatment Upcoming Encounters Date Type Department Care Team (Late st Contact Info) Description 07/07/2025 11:40 AM EDT [facility] Endocrinology [address] [place] [address] Melany Rosales, DO [address] [place] [address] 07/17/2025 2:00 PM EDT Office Visit [facility] Audiology [address], 3rd [place] [address] Lottie Lund, AuD [address] [place] [address] 01/05/2026 11:00 AM EST Office Visit [facility] [place] [address] [place] [address] Vivian Macias S, OD [address] [place] [address] documented as of this encounter [...] documented as of this encounter Care Teams Histologic Aide Relationship Specialty Start Date End Date Rocky Almanzar MD [address] [place] [address] PCP - General 03/18/21 documented as of this encounter
--- OUTSIDE RECORDS SUMMARY | 2025-06-10 10:22 | XMS_ITS | Encounter Summary ---
Author Organization Healthcare Address [address] [place] [address] Care Team Providers Care Circular Distributor Name Role Phone Rocky Almanzar MD Primary Care Provider [phone] Reason for Visit * Reason Comments Med Refill Encounter Details Date Type Department Care Team (Late st Contact Info) Description 05/04/2025 Refill [facility] Endocrinology [address] [place] [address] Jason Romero MD [address] [address] Type 2 diabetes mellitus with hyperglycemia, with long-term current use of insulin ([facility]) Social History Tobacco Use Types Packs/Day Years [...] Description 07/07/2025 11:40 AM EDT Office Visit [facility] Endocrinology [address] [place] [address] Melany Rosales, DO [address] [place] [address] 07/17/2025 2:00 PM EDT Office Visit [facility] Audiology [address], 3[address] [place] [address] Lottie Lund, AuD [address] [place] [address] 01/05/2026 11:00 AM EST Office Visit [facility] [address], [address] [place] [address] Vivian Macias S, OD [address] [place] [address] documented as of this encounter Visit Diagnoses Diagnosis Type 2 diabetes mellitus with hyperglycemia, with long-term current use of insulin ([facility]) documented in this encounter Additional Health Concerns Infection Onset Date Last Indicated Resolved Time 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
--- OUTSIDE RECORDS SUMMARY | 2025-06-10 10:22 | XMS_ITS | Clinical Summary ---
Author Organization [facility] Address [address] [place] [address] Care Team Providers Care Link And Link Knitting Machine Operator Name Role Phone Provider, No Known Primary Care Provider Unavail able Encounters Date Type Department Care Team Description 03/16/2025 4:40 PM EDT Lab [facility] [address] [place] [address] Immunodeficiency due to drug therapy; Leukopenia, unspecified [...] Serum / Plasma (03/16/2025 4:33 PM EDT) [facility] Itraconazole 1.1 ug/mL 03/23/2025 5:09 PM [...] PM EDT 03/16/2025 4:33 PM EDT [facility]ative [facility] - 03/23/2025 5:09 PM EDT Test(s) 736929-Hrzrtvtvujpinwlmioj was developed and its performance characteristics determined by [facility]. It has not been cleared or approved by the Food and Drug Administration. Performed at: 01 - [address] [id number] Flooring Mechanic: Jacqui Cervantes MD, Phone: [phone] us Rocky Patino MD LAB BLOOD ORDERABLES Final Resul t [facility] [address] [place] [address], * (ABNORMAL) CBC Auto Differential (03/16/2025 4:33 PM EDT) WBC 2.56(L) 3.40 - 10.80 10*3/mm3 03/16/2025 5:17 PM EDT [facility] RBC 3.74(L) 4.14 - 5.80 10*6/mm3 03/16/2025 5:17 PM EDT [facility] Hemoglobin 10.7(L) 13.0 - 17.7 g/dL 03/16/2025 5:17 PM EDT [facility] Hematocrit 32.6(L) 37.5 - 51.0 % 03/16/2025 5:17 PM EDT [facility] MCV 87.2 79.0 - 97.0 fL 03/16/2025 5:17 PM EDT [facility] MCH 28.6 26.6 - 33.0 pg 03/16/2025 5:17 PM EDT [facility] MCHC 32.8 31.5 - 35.7 g/dL 03/16/2025 5:17 PM EDT [facility] RDW 15.5(H) 12.3 - 15.4 % 03/16/2025 5:17 PM EDT [facility] RDW-SD 48.6 37.0 - 54.0 fl 03/16/2025 5:17 PM EDT [facility] MPV 10.3 6.0 - 12.0 fL 03/16/2025 5:17 PM EDT [facility] Platelets 172 140 - 450 10*3/mm3 03/16/2025 5:17 PM [facility] Neutrophil % 82.8(H) 42.7 - 76.0 % 03/16/2025 5:17 [facility] Lymphocyte % 9.0(L) 19.6 - 45.3 % 03/16/2025 5:17 PM EDT [facility] Monocyte % 7.0 5.0 - 12.0 % 03/16/2025 5:17 PM [facility] Eosinophil % 0.0(L) 0.3 - 6.2 % 03/16/2025 5:17 PM [facility] Basophil % 0.4 0.0 - 1.5 % 03/16/2025 5:17 PM [facility] Immature Grans % 0.8(H) 0.0 - 0.5 % 03/16/2025 5:17 PM [facility] Neutrophils, Absolute 2.12 1.70 - 7.00 10*3/mm3 03/16/2025 5:17 PM [facility] Lymphocytes, Absolute 0.23(L) 0.70 - 3.10 10*3/mm3 03/16/2025 5:17 PM [facility] Monocytes, Absolute 0.18 0.10 - 0.90 10*3/mm3 03/16/2025 5:17 PM [facility] Eosinophils, Absolute 0.00 0.00 - 0.40 10*3/mm3 03/16/2025 5:17 PM [facility] Basophils, Absolute 0.01 0.00 - 0.20 10*3/mm3 03/16/2025 5:17 PM [facility] Immature Grans, Absolute 0.02 0.00 - 0.05 10*3/mm3 03/16/2025 5:17 PM EDT [facility] nRBC 0.0 0.0 - 0.2 /100 WBC 03/16/2025 5:17 PM EDT [facility] Blood Venipuncture / Unknown 03/16/2025 4:33 PM EDT 03/16/2025 4:33 PM EDT us Rocky Patino MD LAB BLOOD ORDERABLES Final Resul t Performing Organization Address [facility] de Phone Number [facility]
[address] [place] [address], * (ABNORMAL) BNP (03/16/2025 4:33 PM EDT) proBNP 1,207.0(H) 0.0 - 900.0 pg/mL 03/16/2025 5:38 PM EDT [facility] Blood Venipuncture / Unknown 03/16/2025 4:33 PM EDT 03/16/2025 4:33 PM EDT Narrative [facility] - 03/16/2025 5:38 PM EDT This [...] ORDERABLES Final Resul t Performing Organization Address [facility] Co de Phone Number [facility]
[address] [place] [address], [place] [phone] * (ABNORMAL) Comprehensive Metabolic Panel (03/16/2025 4:33 PM EDT) Glucose 368(H) 65 - 99 mg/dL 03/16/2025 5:38 PM T [facility] BUN 32(H) 8 - 23 mg/dL 03/16/2025 5:38 PM [facility] Creatinine 0.95 0.76 - 1.27 mg/dL 03/16/2025 5:38 PM T [facility] Sodium 140 136 - 145 mmol/L 03/16/2025 5:38 PM T [facility] Potassium 3.9 3.5 - 5.2 mmol/L 03/16/2025 5:38 PM [facility] Comment:Slight hemolysis det ected by analyzer. Result may be falsely elevated. Chloride 101 98 - 107 mmol/L 03/16/2025 5:38 PM [facility] CO2 24.0 22.0 - 29.0 mmol/L 03/16/2025 5:38 PM T [facility] Calcium 8.7 8.6 - 10.5 mg/dL 03/16/2025 5:38 PM [facility] Total Protein 5.5(L) 6.0 - 8.5 g/dL 03/16/2025 5:38 PM [facility] Albumin 3.4(L) 3.5 - 5.2 g/dL 03/16/2025 5:38 PM [facility] ALT (SGPT) 25 1 - 41 U/L 03/16/2025 5:38 PM T [facility] AST (SGOT) 11 1 - 40 U/L 03/16/2025 5:38 PM T [facility] Alkaline Phosphatase 73 39 - 117 U/L 03/16/2025 5:38 PM T [facility] Total Bilirubin 0.6 0.0 - 1.2 mg/dL 03/16/2025 5:38 PM [facility] Globulin 2.1 gm/dL 03/16/2025 5:38 PM T [facility] Comment:Calculated Result A/G Ratio 1.6 g/dL 03/16/2025 5:38 PM EDT [facility] BUN/Creatinine Ratio 33.7(H) 7.0 - 25.0 03/16/2025 5:38 PM EDT [facility] Anion Gap 15.0 5.0 - 15.0 mmol/L 03/16/2025 5:38 PM EDT [facility] eGFR 84.5 >60.0 mL/min/1.7 3 03/16/2025 5:38 PM EDT [facility] Blood Venipuncture / Unknown 03/16/2025 4:33 PM EDT 03/16/2025 4:33 PM EDT Narrative [facility] - 03/16/2025 5:38 PM EDT GFR [...] MD LAB BLOOD ORDERABLES Final Resul t [facility]
[address] [place] [address], from Last 3 Months Insurance Care Teams Link And Link Knitting Machine Operator Relationship Specialty Start Date End Date Provider, [place] [address] PCP - General 01/14/25
--- OUTSIDE RECORDS SUMMARY | 2025-06-10 10:22 | XMS_ITS | Encounter Summary ---
Author Organization [facility] Address [address] [place] [address] Care Team Providers Care Shredded Filler Hopper Feeder Name Role Phone Rocky Almanzar MD Primary Care Provider [phone] Reason for Visit * Reason Comments Med Refill Encounter Details Date Type Department Care Team (Late Contact Info) Description 05/20/2021 Refill [facility] Endocrinology [address] [place] [address] Jason Romero MD [address] [address] Social History Tobacco Use Types [...] Description 07/07/2025 11:40 AM EDT [facility] [address] [place] [address] Melany Rosales, DO [address] [place] [address] 07/17/2025 2:00 PM EDT Office Visit [facility] Audiology [address], 3rd [place] [address] Lottie Lund, AuD [address] [place] [address] 01/05/2026 11:00 AM EST Office Visit [facility] [place] [address], [address] [place] [address] Vivian Macias, OD [address] [place] [address] documented as of this encounter Visit Diagnoses Not on filedocumented in this encounter Additional Health Concerns Infection Onset Date Last Indicated Resolved Time MRSA 03/30/2021 03/30/2021 documented as of this encounter Care Teams Shredded Filler Hopper Feeder Relationship Specialty Start Date End Date Rocky Almanzar MD [address] [place] [address] PCP - General 03/18/21 documented as of this encounter
--- OUTSIDE RECORDS SUMMARY | 2025-06-10 10:22 | XMS_ITS | Clinical Summary ---
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/09 Active 01/09 Echo Mccurdy 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/09 Active 01/09 Echo Mccurdy Acute pulmonary histoplasmosis capsulati Medications Medication Instructions Start Date Stop Date Generic Name [facility] Provider budesonide 3 mg by mouth as needed as directed budesonide [facility] EZETIMIBE 10 MG TABS 1 tablet by mouth once a day ezetimibe 77726646726 [facility] [place] XARELTO 20 MG TABS rivaroxaban 72832801039 [facility] [place] PRAVASTATIN SODIUM 20 MG TABS 1 tablet by mouth once a day pravastatin 45714411814 [facility] aspirin 81 mg capsule 1 capsule by mouth once a day aspirin [facility] [place] [place] ITRACONAZOLE 100 MG CAPS Take 2 capsule by mouth twice a day itraconazole 90754215138 [facility] ITRACONAZOLE 100 MG CAPS TAKE TWO CAPSULES BY MOUTH TWICE DAILY itraconazole 38454179766 Rocky Patino MD IPRATROPIUM-ALBU TEROL 0.5-2.5 (3) MG/3ML SOLN ipratropium-albut [place] 16839992622 Amrita Hope JARDIANCE 10 MG TABS 1 tablet by mouth once a day empagliflozin 83904171579 [facility] ITRACONAZOLE 100 MG CAPS Take 2 capsule by mouth twice a day itraconazole 63225317236 Rocky Patino MD XARELTO 20 MG TABS rivaroxaban 30135115720 Christina Braden aspirin 81 mg capsule 1 capsule by mouth once a day aspirin Laiba Sonu budesonide 9 mg by mouth as needed as directed budesonide Laiba Sonu VITAMIN D 25 MCG (1000 UT) TABS 1 tablet by mouth once a day cholecalciferol (vitamin d3) 29575417815 Laiba Sonu JARDIANCE 10 MG TABS 1 tablet by mouth once a day empagliflozin 81044702371 Laiba Sonu EZETIMIBE 10 MG TABS 1 tablet by mouth once a day ezetimibe 83303716509 Laiba Sonu insulin lispro protamine-lispro 100 unit/mL (75-25) subcutaneous susp insulin lispro protamin-lispro Laiba Sonu IPRATROPIUM-ALBU TEROL 0.5-2.5 (3) MG/3ML SOLN ipratropium-albut [place] 21448163837 Laiba Sonu LEVOTHYROXINE SODIUM 50 MCG TABS 1 tablet by mouth once a day levothyroxine 91123371107 [facility] Son[facility] METFORMIN HCL 500 MG TABS 1 tablet by mouth once a day metformin 98059702152 La[facility] Sonu MIRTAZAPINE 15 MG TABS 1 tablet by mouth once a day mirtazapine 69921875152 Laiba Sonu MYCOPHENOLATE MOFETIL 500 MG TABS 1 tablet by mouth twice a day mycophenolate mofetil 81066058985 Laiba Sonu PRAVASTATIN SODIUM 20 MG TABS 1 tablet by mouth once a day pravastatin 56463029286 Laiba Sonu URSODIOL 500 MG TABS 1 tablet by mouth twice a day ursodiol 15217484761 La[facility] Sonu Medications Administered No information available. 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, SETTER OFF FALLRSKASSES yes Fall ris k assessment Lab [...] Appointment 11:00 AM Rocky Patino MD, [facility], [facility] [address], [place], [address], Pending order CMP Pending order CBC with [...] (G221) CPT-Cooral Continue oral antibiotics 20 27/02/11 CPT-19868 CMP [id number] CBC with Differential 2024 CPT-62066 Itraconazole Level 1 CPT-28604 BNP CPT-elizabeth New Oral Antibiotic CPT-19349 CMP [id number] CBC with Differential 2024 CPT-89873 CD4 15818 Fungitell, serum (1-3) D-Glucan Assay 03/07/12 CPT-63680 Urine Culture & Sensitivity [id number], [id number] Urinalysis CPT-cf Fungal Culture & Sensitivity CPT-53992 BNP Vital Signs Date Name Value Unit [...]
--- OUTSIDE RECORDS SUMMARY | 2025-06-10 10:23 | XMS_ITS | Clinical Summary ---
Author Organization [facility] Address [address] [place] [address] Care Team Providers Care Metal Trimmer Name Role Phone Rocky Almanzar MD Primary Care Provider [phone] Allergies Active Allergy Reactions Criticality Noted Date [...] Type Department Care Team Description 05/04/2025 Refill [facility] Endocrinology [address] [place] [address] Jason Romero MD Type 2 diabetes mellitus with hyperglycemia, with long-term current use of insulin ([facility]) 04/28/2025 Telephone [facility] Endocrinology [address] [place] [address] Jason Romero MD 04/24/2025 Telephone [facility] Diabetes Education [address] [place] [address] Rocky Almanzar MD HCN - [...] Description 07/07/2025 11:40 AM EDT Office Visit [facility] Endocrinology [address] [place] [address] Melany Rosales, DO [address] [place] [address] 07/17/2025 2:00 PM EDT Office Visit [facility] Audiology [address] [place] [address] Lottie Lund, AuD [address] [place] [address] 01/05/2026 11:00 AM EST Office Visit [facility] [address] [place] [address] Vivian Macias S, OD [address] [place] [address] Health Maintenance Due Date Last [...] A1C 03/17/202509/2025, 05/23/2024, 11/22/2023, Additional history exists [id number] Vaccine (7 - Moderna risk season) 2025 [...] this topic Medical Devices Implanted Type Area Customer Service Clerk Device Identifier Shelf Expiration Date Model / Serial / Lot Roseline Stanleyk Advantage Ci Hifocus 1j Electrode--06/05 Implanted:06/05 by Ky Del Rio MD (Quantity not on file) Cochlear Left: Ear [employer] [id number] / [id number] / Description:Roseline 90K Advant age CI HiFocus 1J electrode--cochlear implant by Dr. Del Rio at [facility] on 06/21/2017, operative note in Epic. LEFT EAR. Roseline ULTRA 3D Cochlear implant REF: [id number] Serial number: [id number] Procedures Procedure Name Priority Date/Time Associated Diagnosis [...] % [facility] Kit Lot Number [id number] [facility] Kit Expiration Date 10/04/26 HEALTHCARE [facility] Blood Venous blood specimen / Unknown 12/16/2024 12:27 PM EST Jason Romero MD POINT OF CARE TEST ENTER/ED IT ORDERABLES Final Result [facility] [address] [place] [address] * COLONOSCOPY (08/03/2017) Anatomical Region Laterality Modality [...] Date Last Indicated MRSA 03/30/2021 03/30/2021 Insurance [facility] MEDICARE EYEMED Care Teams Metal Trimmer Relationship Specialty Start Date End Date Rocky Almanzar MD [facility] [address] [place] [address] PCP - General 03/18/21
--- OUTSIDE RECORDS SUMMARY | 2025-06-10 10:23 | XMS_ITS | Encounter Summary ---
Author Organization [facility] Address [address] [place] [address] Care Team Providers Care Vp Home Health Name Role Phone Rocky Almanzar MD Primary Care Provider [phone] Encounter Details Date Type Department Care Team (Late st Contact Info) Description 04/28/2025 Telephone [facility] Endocrinology [address] [place] [address] Jason Romero MD [address] [place] [address] Social History Tobacco Use Types [...] with Derek's phone number for refills from [employer]. Pt's was on the phone and was able to take appropriate notes. Pt to come by [facility] to picker packer smaple FSL3+ sensor on Sunday. No other questions at this time. * Telephone Encounter - MARYLIN DALAL - 04/28/2025 12:05 PM EDT Pt requesting a call back regarding his Leroy system not seeming to be working. documented in this encounter Plan of Treatment Upcoming Encounters Date Type Department Care Team (Late st Contact Info) Description 07/07/2025 11:40 AM EDT Office Visit [facility] Endocrinology [address] [place] [address] Melany Rosales, DO [address] [place] [address] 07/17/2025 2:00 PM EDT Office Visit [facility] Audiology [address], [address] [place] [address] Lottie Lund, AuD [address] [place] [address] 01/05/2026 11:00 AM EST Office Visit [facility] [address] [place] [address] Vivian Macias S, OD [address] [place] [address] documented as of this encounter [...] documented as of this encounter Care Teams Vp Home Health Relationship Specialty Start Date End Date Rocky Almanzar MD [address] [place] [address] PCP - General 03/18/21 documented as of this encounter
--- OUTSIDE RECORDS SUMMARY | 2025-06-10 10:23 | XMS_ITS | Patient Health Record ---
Author Organization [facility] Address [address] [facility] [address] [facility] [address] [place] [id number] Care Team Providers Care Saddle And Side Wire Stitcher Name Role Phone Shauna Almanzar Primary Care Provider Emir Berger Unavailable [phone] Trinity Medeiros Unavailable [phone] Doretha Burns Unavailable [phone] Allergies Allergen (clinical drug ingredient) Drug/Non Drug [...] 5.5 Performing Lab: Notes/Report: Test performed by [facility][note 3][address] [facility] , [address], [place] [address] Kristian Trevino MD, Senior Physical Therapist CLIA: [id number] Sodium 139 135-145 mmol/L Potassium 3.7 3.5-5.3 [...] 695 Performing Lab: Notes/Report: Test performed by [facility] [address] [place] [address] , [address], [place] [address] Kristian Trevino MD, Senior Physical Therapist CLIA: [id number] Albumin/Creatinine Ratio, Urine 695 0-30 ug/mg Microalbumin, Urine, Random 16.4 Creatinine, Urine 23.6 CBC Venipuncture (in house) Reviewed date:06/10/2025 08:30:05 [...] 232 Performing Lab: Notes/Report: Test performed by [facility] [address] [place] [address] , [address], [place] [address] Kristian Trevino MD, Senior Physical Therapist CLIA: [id number] Sodium 141 135-145 mmol/L Potassium 3.0 3.5-5.3 [...] Interpretation:23 Performing Lab: Notes/Report: Test performed by [facility] [address] [place] [address] , [place] [address] Kristian Trevino MD, Senior Physical Therapist CLIA: [id number] Creatine Kinase 23 20-200 U/L Y-G-Xvoxusem Protein (CRP) Reviewed date:06/10/2025 08:30:05 AM Interpretation:4.00 Performing Lab: Notes/Report: Test performed by [facility] [address] , [address], [place] [address] Kristian Trevino MD, Senior Physical Therapist CLIA: [id number] C-Reactive Protein (CRP) 4.00 <0.50 mg/dL P-Sed Rate (ESR) Reviewed date:06/10/2025 08:30:05 AM Interpretation:31 Performing Lab: Notes/Report: Test performed by [facility] [address] [place] [address] [address], [place] [address] Kristian Trevino MD, Senior Physical Therapist CLIA: [id number] Erythrocyte Sedimentation Rate (ESR), Automated 31 <21 mm/hr P-TSH reflex to FT4 Reviewed date:06/10/2025 08:30:05 AM Interpretation:Normal Performing Lab: Notes/Report: Test performed by [facility] [address] [place] [address] [address], [place] [id number] Kristian Trevino MD, Senior Physical Therapist CLIA: [id number] TSH reflex to FT4 3.44 0.43-5.25 mU/L P-Vitamin D 25-Hydroxy Reviewed date:06/10/2025 08:30:05 AM Interpretation:Normal Performing Lab: Notes/Report: Test performed by [facility] [address] [place] [address] , [place] [address] Kristian Trevino MD, Senior Physical Therapist CLIA: [id number] Vitamin D 25-Hydroxy 57.8 30.0-100.0 ng/mL Interpretation of Vitamin D 25 OH: < 20 ng/mL - Deficiency 20 - 29 ng/mL - Insufficiency 30 - 100 ng/mL - Sufficiency > 100 ng/mL - Super-therapeutic- toxicity may occur above this level. Clinical correlation required. Urinalysis - Inhouse Reviewed date:01/09/2025 01:37:28 PM [...] 229 Performing Lab: Notes/Report: Test performed by [facility] [address] [place] [address] , [place] [address] Kristian Trevino MD, Senior Physical Therapist CLIA: [id number] Sodium 138 135-145 mmol/L Potassium 4.3 3.5-5.3 [...] 08/25/24 CA 8.3 8.4-10.2 mg/dl H-BMP Reviewed date:09/08/2024 11:20:09 AM Interpretation:cl 109, co2 21, bun 25, [id number] Performing Lab: Notes/Report: NA 137 136-145 mmol/L K 3.8 3.5-5.1 mmoL/L CL 109 98-107 mmol/L CO2 21 22.0-30.0 mmol/L GAP 10.8 5-15 mEq/L BUN 25 9-20 mg/dl CREATT 1.20 0.66-1.25 mg/dl GFRAA 72 >60 ML/MIN EGFR 59 >60 ml/min GLU 380 74-100 mg/dl CA 9.0 8.4-10.2 mg/dl H-BMP Reviewed date:09/15/2024 10:12:19 AM Interpretation:bun 25, Cr 1.3, gfr 54, gluc 370 Performing Lab: Notes/Report: NA 138 136-145 mmol/L K 4.3 3.5-5.1 mmoL/L CL 106 98-107 mmol/L CO2 26 22.0-30.0 mmol/L GAP 10.3 5-15 mEq/L BUN 25 9-20 mg/dl CREATT 1.30 0.66-1.25 mg/dl GFRAA 65 >60 ML/MIN EGFR 54 >60 ml/min GLU 370 74-100 mg/dl CA 9.0 8.4-10.2 mg/dl H-TSH [...] 7.7% 5 - 6.5 % H-CBC Reviewed date:11/04/2024 [...] Performing Lab: Notes/Report: chronic findings, nothing new Medications Medication SIG (Take, Route, Frequency, Duration) Notes Start Date End Date Status Cholecalciferol 25 MCG (1000 UT) 1 capsule [...] e a day; Duration: 30 day(s) Active FreeStyle Leroy 3 Plus Sensor - replace sensor every 14 days; Duration: 28 days 05/12/2025 Not-Taking Potassium Chloride ER 20 MEQ 1 tablet with food Orally Once a day; Duration: 15 days 06/10/2025 Active Ipratropium-Albuterol 0.5-2.5 (3) MG/3ML 3 mL as needed Inhalation every 6 hrs Active FreeStyle Leroy 3 Thayer - as directed 05/12/2025 Not-Taking Levothyroxine Sodium 50 mcg 1 tablet by mouth daily; Duration: 90 days Active Itraconazole 100 MG 2 capsule after a meal Orally twice a day Active Mirtazapine 15 mg TAKE ONE TABLET BY MOUTH EVERY DAY AT BEDTIME; Duration: 30 Active Jardiance 10 mg 1 tablet Orally ever y other day; Duration: 90 days Active Budesonide 3 MG 1 Orally at bedtime Active Immunizations Vaccine Route Administration Date Status [...] W/U Status Risk Notes Problem Essential hypertension (90242000) Essential (primary) hypertension (I10) Active confirmed Problem Vitamin D deficiency (74059102) Vitamin D deficiency (E55.9) Active confirmed Problem Essential hypertension (43258502) Essential hypertension (I10) Active confirmed Problem Screening for malignant neoplasm of prostate (716848924) Prostate cancer screening (Z12.5) Active confirmed Problem Anorexia (36593295) Anorexia (R63.0) Active con firmed Problem Paroxysmal atrial fibrillation (192535088) Paroxysmal atrial fibrillation (I48.0) Active confirmed Problem Hyperglycemia due to type 2 diabetes mellitus (459484981160247) Type 2 diabetes mellitus with hyperglycemia (E11.65) Active confirmed Problem Mixed hyperlipidemia (259551042) Mixed hyperlipidemia (E78.2) Active confirmed Problem Hyperlipidemia (43401511) Hyperlipidemia, unspecified (E78.5) Active confirmed Problem Hereditary hemochromatosis (20626777) 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) Active confirmed Problem Chronic respiratory failure (77578790) Chronic respiratory failure with hypoxia (J96.11) Active confirmed Problem Autoimmune hepatitis (412084516) Autoimmune hepatitis (K75.4) Active confirmed Problem Cholelithiasis without obstruction (15948875) Calculus of gallbladder without cholecystitis without obstruction (K80.20) Active confirmed Problem Cochlear implant status (Z96.21) Active confirmed Problem Male erectile disorder (524858396) Male erectile disorder (N52.9) Active confirmed Problem Long-term current use of insulin (506250185) skilled nursing (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 (Z79.4) Active confirmed Problem Type II diabetes mellitus without complication (871847685) Type 2 diabetes mellitus without complication (E11.9) Active confirmed Problem Acquired hypothyroidism (580434794) Acquired hypothyroidism (E03.9) Active confirmed Problem Pulmonary fibrosis (80646562) Pulmonary fibrosis (J84.10) Active confirmed Problem Chronic fatigue syndrome (51102618) Chronic fatigue (R53.82) Active confirmed Problem COPD - Chronic obstructive pulmonary disease (95780039) Chronic obstructive pulmonary disease, unspecified COPD type (J44.9) Active confirmed Problem Pneumonia (020397267) Pneumonia of right lower lobe due to infectious organism (J18.9) Active confirmed Problem Hearing loss (78568882) Hearing loss, bilateral (H91.93) Active confirmed Problem Disorder of adrenal gland (64033760) 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) Active confirmed Problem Neutropenia (853619818) Neutropenia, unspecified type (D70.9) Active confirmed Problem Interstitial lung disease (870018258) Interstitial lung disease (J84.9) Active confirmed Problem Seasonal allergic rhinitis (409212100) Seasonal allergic rhinitis, unspecified allergic rhinitis trigger (J30.2) Active confirmed Problem Granulocytopenia (758652777) 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 confirmed Problem Systemic lupus erythematosus (42632885) Lupus (systemic lupus erythematosus) (M32.9) Active confirmed Problem Cardiac arrhythmia (844409536) Cardiac arrhythmia, unspecified cardiac arrhythmia type (I49.9) Active confirmed Problem Malnutrition, calorie (590626298) Caloric malnutrition (E46) Active confirmed Problem Benign prostatic hypertrophy without outflow obstruction (851488067) BPH without urinary obstruction (N40.0) Active confirmed Problem Allergic rhinitis caused by pollen (30968436) Acute seasonal allergic rhinitis due to pollen (J30.1) Active confirmed Problem Sensorineural hearing loss, bilateral (377392151) Sensorineural hearing loss (SNHL) of both ears (H90.3) Active confirmed Problem Cholestatic hepatitis (19974196) Cholestatic hepatitis (K75.89) Active confirmed Problem Skin sensation disturbance (66112961) Sensitive skin (R20.3) Active confirmed Problem Dilatation of aorta (17622937) Dilatation of aorta (I77.819) Active confirmed Problem Tomography - chest abnormal (736409460) Abnormal CT scan, chest (R93.89) Active confirmed Problem Left atrial dilatation (579189139) Left atrial dilatation (I51.7) Active confirmed Problem Chronic vascular insufficiency of intestine (941160749) 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 Problem Protein malnutrition (95917472) Protein malnutrition (E46) Active confirmed Vital Signs Heart Rate 64 /min 06/09/2025 Blood pressure diastolic 68 mm Hg 06/09/2025 Height 65 in 06/09/2025 Blood pressure systolic 112 mm Hg 06/09/2025 Weight 130 lbs 06/09/2025 BMI 21.63 kg/m2 06/09/2025 Encounters Encounter Location Date [facility] [address] [id number] 09/05/2024 Shauna Almanzar Pneumonia of left lo wer lobe due to infectious organism J18.9 ; Interstitial lung disease J84.9 ; Chronic respiratory failure with hypoxia J96.11 ; 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 ; Autoimmune hepatitis K75.4 ; Protein malnutrition E46 and Caloric malnutrition E46 [facility] [address] [id number] 09/16/2024 Trinity Medeiros Strep pharyngitis J0 2.0 and Oral candidiasis B37.0 [facility] [address] [id number] 10/09/2024 Shauna Almanzar Lesion of adrenal gl and E27.9 ; Essential hypertension I10 ; Type 2 diabetes mellitus without complication E11.9 ; Acquired hypothyroidism E03.9 ; Hearing loss, bilateral H91.93 ; Cochlear implant status Z96.21 ; Protein malnutrition E46 ; Chronic obstructive pulmonary disease, unspecified COPD type J44.9 and Encounter for immunization Z23 [facility] [address] [place], [place] [id number] 11/03/2024 Emir [place] Acute cough R05.1 [facility] [address] [id number] 11/07/2024 Shauna Almanzar Type 2 diabetes aquilino itus without complication E11.9 ; Acquired hypothyroidism E03.9 and Hereditary hemochromatosis E83.110 [facility] [address] [place], [place] [id number] 01/09/2025 Shauna Almanzar Type 2 diabetes aquilino itus without complication E11.9 ; Hereditary hemochromatosis E83.110 ; Cochlear implant status Z96.21 ; Chronic obstructive pulmonary disease, unspecified COPD type J44.9 ; Essential (primary) hypertension I10 ; Protein malnutrition E46 and Gross hematuria R31.0 [facility] [address] [place], [place] [id number] 01/15/2025 Shauna Almanzar Interstitial lung disease J84.9 ; 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 ; Autoimmune hepatitis K75.4 ; Protein malnutrition E46 ; Cochlear implant status Z96.21 ; Type 2 diabetes mellitus without complication E11.9 and Hematuria R31.9 [facility] [address] [id number] 02/11/2025 Emir Berger Type 2 diabetes aquilino itus with hyperglycemia E11.65 ; skilled nursing (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.4 ; Gross hematuria R31.0 and Body mass index (BMI) of 19.0 to 19.9 in adult Z68.1 [facility] [address] [id number] 03/13/2025 Doretha Burns Drug interaction Z78 .9 [facility] [address] [id number] 04/02/2025 Shauna Almanzar Type 2 diabetes aquilino itus without complication E11.9 ; 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 ; Cholestatic hepatitis K75.89 ; exterminator helper termite (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.4 ; 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 ; Generalized weakness R53.1 and BMI 20.0-20.9, adult Z68.20 [facility] [address] [place] [id number] 04/30/2025 Shauna Almanzar Type 2 diabetes aquilino itus with hyperglycemia E11.65 ; exterminator helper termite (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.4 ; Adrenal [...] adult Z68.22 and Cochlear implant status Z96.21 [facility] [address] [place], [place] [id number] 06/09/2025 Emir [place] Generalized weakness R53.1 ; Anorexia R63.0 and Vitamin D deficiency E55.9 [facility] [address] [place], [place] [id number] 05/12/2025 J Rogerio Almanzar [facility] [address] [place], [place] [id number] 06/10/2025 Emir [place] [facility] [address] [place], [place] [id number] 09/01/2024 J Rogerio Almanzar [facility] [address] [place], [place] [id number] 09/04/2024 J Rogerio Almanzar [facility] [address] [place], [place] [id number] 09/08/2024 J Rogerio Almanzar [facility] [address] [place], [place] [id number] 09/10/2024 J Rogerio Almanzar [facility] [address] [place], [place] [id number] 09/15/2024 J Rogerio Almanzar [facility] [address] [place], [place] [id number] 09/16/2024 J Rogerio Almanzar [facility] [address] [place], [place] [id number] 09/25/2024 J Rogerio Almanzar [facility] [address] [place], [place] [id number] 11/03/2024 Emir [place] [facility] [address] [place] [id number] 01/12/2025 Shauna Almanzar [facility] [address] [place] [id number] 05/12/2025 Shauna Almanzar [facility] [address] [facility] [address] [place] [id number] 06/04/2025 Shauna Almanzar Assessments Encounter Date Diagnosis (ICD [...] mellitus with hyperglycemia (ICD-10 - E11.65) 04/30/2025 exterminator helper termite (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 (ICD-10 - Z79.4) 06/09/2025 Anorexia (ICD-10 - R63.0) Boost or Ensure 1 can bid 06/09/2025 Generalized weakness (ICD-10 - R53.1) 04/30/2025 Adrenal abnormality (ICD-10 - E27.9) 06/09/2025 Vitamin D deficiency (ICD-10 - E55.9) 04/02/2025 Adrenal abnormality (ICD-10 - E27.9) 02/11/2025 [...] Essential (primary) hypertension (ICD-10 - I10) 04/02/2025 exterminator helper termite (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 [...] H-TSH 11/07/2024 Next Appt Details Provider Name:Shauna Beatty [facility] er, 07/03/2025 11:45:00 AM, [address] [employer] [address] [facility], [address], [place], [id number], Provider Name:Shauna Beatty [facility] [place] [facility], 07/06/2025 03:34:00 PM, [address] [facility] [address] [facility], [address], [place], [id number], Insurance Providers Payer Name Payer Address Payer Phone Subscriber Number Group Number Insured Name Patient Relationship to Insured Coverage Start Date Coverage End Date [facility] [address] [place] [address] [id number] HERMILA GOLDEN Self - patient is the insured Medical (General) History Medical History History ICD Code Seasonal Allergies Kidney Stones Steatohepatitis hemachromatosis,(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 Smalls and Dr. 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
[2025-06-10] MEDS: 0.9% NaCl w/20mEq KCL 1,000 ML 500 ML IV (10:42)
[2025-06-10 11:00] VITALS: BP 99/50; PULSE 81; RESP 18; TEMP 36.6; O2SAT 97
[2025-06-10 12:00] VITALS: BP 128/59; PULSE 79
[2025-06-10 12:15] VITALS: BP 124/60; PULSE 75
[2025-06-10] MEDS: 0.9 % SODIUM CHLORIDE 1000ML 1,000 ML 999 ML IV (12:15)
[2025-06-10 13:15] VITALS: BP 118/65; PULSE 80
== END 2025-06-10 13:20 | disposition home or self-care (01) ==
LOC: INF 10:19
PROVIDERS: PCP Family Medicine; Visit Provider Family Medicine
DX: E83.119 Hemochromatosis, unspecified (principal)
CPT/HCPCS: 96360; J3480; J7030

== ENCOUNTER 2025-06-23 11:09 | Outpatient (CLI) | payer MEDICARE, SELFPAY ==
--- OUTSIDE RECORDS SUMMARY | 2025-04-02 10:15 | XMS_ITS ---
Author Organization [facility] Address 1210 [facility] [address] [phone] Care Team Providers Care Director Toxicology Name Role Phone Shauna Almanzar Primary Care [...] 5.5 Performing Lab: Notes/Report: Test performed by [employer] [facility]0 [facility] , [address], [place] [address] Kristian Trevino MD, Record Maker CLIA: [id number] Sodium 139 135-145 mmol/L Potassium 3.7 3.5-5.3 [...] 695 Performing Lab: Notes/Report: Test performed by [employer] [address] [place] [address] , [address], [place] [address] Kristian Trevino MD, Record Maker CLIA: [id number] Albumin/Creatinine Ratio, Urine 695 0-30 ug/m g [...] Grigsby 05/18/2025 02:47:51 PM > faxed to [facility] PT Referral Priority Routine REASON FOR VISIT [...] 04/02/2025 Encounters Encounter Location Date Provider Diagnosis [facility] 12[facility] [address] [id number] 04/02/2025 Shauna Almanzar Type 2 diabetes aquilino itus without complication E11.9 ; 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 ; Cholestatic hepatitis K75.89 ; 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 ; 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 ; Generalized weakness R53.1 and BMI 20.0-20.9, adult Z68.20 Assessments Encounter Date Diagnosis (ICD Code) Assessment Notes Treatment Notes Treatment Clinical Notes Section Notes 04/02/2025 Type 2 diabetes mellitus without complication (ICD-10 - E11.9) 04/02/2025 Adrenal abnormality (ICD-10 - E27.9) 04/02/2025 Cholestatic hepatitis (ICD-10 - K75.89) 04/02/2025 FPC (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 (ICD-10 - Z79.4) [...] Follow Up: 4 Weeks, Reason: Provider Name:Shauna Rogeriohema Merida er, 07/03/2025 11:45:00 AM, [address] [place] [address], [address], [place], [place], [id number], Provider Name:Shauna Mitchelljerri er, 07/06/2025 03:34:00 PM, [address] [place] [address], [address], [place], [place], [phone], Progress Notes * HERMILA GOLDEN GINOOB: [birth year] (75 yo M)Acc No.[id number]:04/02/2025 Progress Notes Patient: HERMILA BUCIO Provider: Shauna Almanzar M.D. :1950 A ge:75 Y S ex:Male Date:04/02/2025 Address:[address] [place] [address], [facility] Subjective: * Chief Complaints: * 1 [...] eneralized weakness - R53.1 7 . B [place] 20.0-20.9, adult - Z68.20? Plan: * Treatment: [...] icroalbumin, Urine, Random 16.4 - mg/dL * Chula Gibson 06/04/20 01:01:59 PM EDT > See phone [...] G 2211 Complex e/[place], [address] GLYCATED HEMOGLOBIN TEST, Modifiers: QW , G8752 [...] * Images: Billing Information: * Visit Code: 65457 Office Visit, Est Pt., Level 4. * Procedure Codes: G2211 Complex e/[place]. [address] GLYCATED HEMOGLOBIN TEST. Modifiers: QW G8752 MOST RECENT SYSTOLIC BP < 140MM HG. G8754 MOST RECENT DIASTOLIC BP < 90MM HG. 3046F HEMOGLOBIN A1C LEVEL > 9.0%. G8420 BMI<30 AND >=22 CALC & DOCU. 1036F TOBACCO NON-USER. 3017F COLORECTAL CA SCREEN DOC REV. * Electronic signature of Shauna Almanzar MD on 06/23/2025 at 11:12 AM EDT Sign off status: Pending * Provider: Shauna Almanzar M.D. Date: 0 04/02/2025 Generated for Printi ng/Faxing/eTransmitting on: 0 06/23/2025 11:12 AM EDT History and Physical Notes * [...]
--- OUTSIDE RECORDS SUMMARY | 2025-04-30 10:00 | XMS_ITS ---
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) Referral [facility] Referring Provider First Name Shauna Beatty [...] W/U Status Risk Notes Problem Cardiac arrhythmia (001082053) Cardiac arrhythmia, unspecified cardiac arrhythmia type (I49.9) Active confirmed Problem 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 Vital Signs Blood pressure systolic 130 mm Hg 04/30/20 25 Blood pressure diastolic 62 mm Hg 025 Heart Rate 85 /min 04/30/2025 Height 65 in 04/30/2025 Weight 133.8 lbs 04/30/2025 BMI 22.26 kg/m2 04/30/2025 Encounters Encounter Location Date Provider Diagnosis [address] [phone] 04/30/2025 Shauna Almanzar Type 2 diabetes aquilino itus with hyperglycemia E11.65 ; nursing home (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.4 ; Adrenal [...] mellitus with hyperglycemia (ICD-10 - E11.65) 04/30/2025 nursing home (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 (ICD-10 [...] Treatment Referrals Referral Date Details 04/30/2025 04/30/2025, SMA channing lynne, Dr Quintana Next Appt Details Follow Up: 2 Months, Reason: Provider Name:Shauna Merida , 07/03/2025 11:45:00 AM, [address] [place] [address], [facility] [address], [place], [place], [id number], Provider Name:Shauna Merida , 07/06/2025 03:34:00 PM, [address] [place] [address], [address], [place], [place], [address], Progress Notes * HERMILA GOLDENOB: [birth year] (75 yo M)Acc No.[id number]:04/30/2025 Progress Notes Patient: Daniele SALAS HERMILA WALDROP Provider: Shauna Almanzar M.D. 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 B [place] 22.0-22.9, adult - Z68.22 1 3. C [...] * Images: Billing Information: * Visit Code: 61325 Office Visit, Est Pt., Level 4. * [...] 04/30/2025 Generated for Printi ng/Faxing/eTransmitting on: 0 06/23/2025 [...]
--- OUTSIDE RECORDS SUMMARY | 2025-06-09 06:00 | XMS_ITS ---
Author Organization [facility] Address 1210 [facility] [address] [id number] Care Team Providers Care Windows Admin Name Role Phone Shauna Almanzar Primary Care Provider [phone] Emir Berger Unavailable [phone] Allergies Allergen (clinical drug ingredient) Drug/Non Drug [...] 232 Performing Lab: Notes/Report: Test performed by [employer] [facility] [facility] , [address], [place] [address] Kristian Trevino MD, Salesforce Administrator CLIA: [id number] Sodium 141 135-145 mmol/L Potassium 3.0 3.5-5.3 [...] Interpretation:23 Performing Lab: Notes/Report: Test performed by [employer] [address] , [facility], [place] [address] Kristian Trevino MD, Salesforce Administrator CLIA: [id number] Creatine Kinase 23 20-200 U/L L-M-Bduswdwi Protein (CRP) Reviewed date:06/10/2025 08:30:05 AM Interpretation:4.00 Performing Lab: Notes/Report: Test performed by [employer] [address] , [address], [place] [address] Kristian Trevino MD, Salesforce Administrator CLIA: [id number] C-Reactive Protein (CRP) 4.00 <0.50 mg/dL P-Sed Rate (ESR) Reviewed date:06/10/2025 08:30:05 AM Interpretation:31 Performing Lab: Notes/Report: Test performed by [employer] [address] [place] [address] , [address], [place] [address] Kristian Trevino MD, Salesforce Administrator CLIA: [id number] Erythrocyte Sedimentation Ra te (ESR), Automated 31 <21 mm/hr P-TSH reflex to FT4 Reviewed date:06/10/2025 08:30:05 AM Interpretation:Normal Performing Lab: Notes/Report: Test performed by [employer] [address] [place] [address] , [address], [place] [address] Kristian Trevino MD, Salesforce Administrator CLIA: [id number] TSH reflex to FT4 3.44 0.43-5.25 mU/L P-Vitamin D 25-Hydroxy Reviewed date:06/10/2025 08:30:05 AM Interpretation:Normal Performing Lab: Notes/Report: Test performed by [employer] [address] [place] [address] , [address], [place] [address] Kristian Trevino MD, Salesforce Administrator CLIA: [id number] Vitamin D 25-Hydroxy 57.8 30.0-100.0 ng/mL Interpretation [...] Duration: 90 days Active FreeStyle Leroy 3 [place] - as directed 05/12/2025 Not-Taking Levothyroxine Sodium [...] Status W/U Status Risk Notes Problem Anorexia (48996610) Anorexia (R63.0) Active confirmed Vital Signs Blood pressure systolic 112 mm Hg 06/09/20 25 Blood pressure diastolic 68 mm Hg 025 Heart Rate 64 /min 06/09/2025 Height 65 in 06/09/2025 Weight 130 lbs 06/09/2025 BMI 21.63 kg/m2 06/09/2025 Encounters Encounter Location Date Provider Diagnosis [facility] [address] [place] [address] [address] [place]ae[place] [id number] 06/09/2025 Emir Berger Generalized weakness R53.1 ; [...] Provider Name:Shauna Merida , 07/03/2025 11:45:00 AM, [address] [place] [address], [address], [place] Baez, [id number], Provider Name:Shauna Merida , 07/06/2025 03:34:00 PM, [address] [place] [address], [place] Baez, [id number], Progress Notes * HERMILA GOLDENOB: [birth year] (75 yo M)Acc No.[id number]:06/09/2025 Progress Notes Patient: Daniele SALAS HERMILA WALDROP Provider: Jaden Berger M.D. :1950 A ge:75 Y S ex:Male Date:06/09/2025 Address:[address] [place] [address] [address], [facility] Pcp:Shauna Almanzar Subjective: * Chief Complaints: [...] glucose, Gets yearly eye exams, 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, user name and password for portal: [email or web address]...[email or web address], type 2 diabetes, followed [facility] [...] mouth daily , Not-Taking FreeStyle Leroy 3 [place] - Device as directed , Not-Taking FreeStyle [...] AM EDT > See phone encounter ?LAB: K-E-Ejsgopog Protein (CRP) (Collection Date & Time - [...] G 2211 Complex e/[place], [address] CBC WITH AUTO DIFF, 1036F TOBACCO NON-USER, G8783 BP SCR PRFRM RCMDD DEFIND SCR INTVL, G8752 MOST RECENT SYSTOLIC BP < 140MM HG, G8754 MOST RECENT DIASTOLIC BP < 90MM HG * Follow Up: v ia phone to report test results * Images: Billing Information: * Visit Code: 48204 Office Visit, Est Pt., Level 4. * Procedure Codes: G2211 Complex e/[place]. [address] CBC WITH AUTO DIFF. 1036F TOBACCO NON-USER. G8783 BP SCR PRFRM RCMDD DEFIND SCR INTVL. G8752 MOST RECENT SYSTOLIC BP < 140MM HG. G8754 MOST RECENT DIASTOLIC BP < 90MM HG. * Electronic signature of Elidia Berger MD on 06/23/2025 at 11:13 AM EDT Sign off status: Pending * Provider: Jaden Berger M.D. Date: 0 06/09/2025 Generated for Marissa mendoza/Rei/Fernyransmitting on: 0 06/23/2025 11:13 AM EDT History and Physical Notes * [...]
--- OUTSIDE RECORDS SUMMARY | 2025-06-15 11:23 | XMS_ITS ---
Author Organization [facility] Address [address] [place] [address] [place] [address] Phone Care Team Providers Care Corporate Bond Trader Name Role Phone Sukumar CUEVAS, Rocky Griggs [ ] Conditions or Problems No information available. Medications Medication Instructions Start Date Stop Date Generic Name [facility] Provider MINOCYCLINE HCL 100 MG CAPS 1 capsule by mouth twice a day Take one twice a day for three days then only take 1 once a day 1 minocycline [id number] Rocky Patino MD budesonide 3 mg by [...] Detail Appointment 11:00 AM Rocky Patino MD, [facility], [address], [place], [address], Pending order New Oral Antibio tic Pending [...]
--- OUTSIDE RECORDS SUMMARY | 2025-06-23 11:11 | XMS_ITS | Clinical Summary ---
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 889164074 (SNOMED CT) 01/14 Active 01/14 Rocky Patino MD Drug-induced immunodeficiency Leukopenia 58756405 (SNOMED CT) 01/14 Active 01/14 Rocky Patino MD Leukopenia 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 01/09 Echo Mccurdy 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/09 Active 01/09 Echo Mccurdy Acute pulmonary histoplasmosis capsulati Medications Medication Instructions Start Date Stop Date Generic Name [facility] Provider VORICONAZOLE 200 MG TABS Take 1 tablet by mouth once a day voriconazole 94035406045 Rocky Patino MD MINOCYCLINE HCL 100 MG CAPS 1 capsule by mouth twice a day Take one twice a day for three days then only take 1 once a day minocycline 29823866724 Rocky Patino MD budesonide 3 mg by mouth as needed as directed budesonide Flavio Mack budesonide 3 mg by mouth as needed as directed budesonide Hugh Angel EZETIMIBE 10 MG TABS 1 tablet by mouth once a day ezetimibe 89975513310 Hugh Angel XARELTO 20 MG TABS rivaroxaban 36359970425 [facility] PRAVASTATIN SODIUM 20 MG TABS 1 tablet by mouth once a day pravastatin 92500257894 [facility] aspirin 81 mg capsule 1 capsule by mouth once a day aspirin [facility] ITRACONAZOLE 100 MG CAPS Take 2 capsule by mouth twice a day itraconazole 58552569207 Anne Merlos ITRACONAZOLE 100 MG CAPS TAKE TWO CAPSULES BY MOUTH TWICE DAILY itraconazole 10243021657 Rocky Patino MD IPRATROPIUM-ALBU TEROL 0.5-2.5 (3) MG/3ML SOLN ipratropium-albut [place] 90739475618 Amrita Herminia JARDIANCE 10 MG TABS 1 tablet by mouth once a day empagliflozin 88967105322 Amrita Hope ITRACONAZOLE 100 MG CAPS Take 2 capsule by mouth twice a day itraconazole 24546116079 Rocky Patino MD XARELTO 20 MG TABS rivaroxaban 38125329532 [facility] aspirin 81 mg capsule 1 capsule by mouth once a day aspirin Laiba Sonu budesonide 9 mg by mouth as needed as directed budesonide Laiba Sonu VITAMIN D 25 MCG (1000 UT) TABS 1 tablet by mouth once a day cholecalciferol (vitamin d3) 88724555818 Laiba Sonu JARDIANCE 10 MG TABS 1 tablet by mouth once a day empagliflozin 63314829636 Laiba Sonu EZETIMIBE 10 MG TABS 1 tablet by mouth once a day ezetimibe 01841567806 Laiba Sonu insulin lispro protamine-lispro 100 unit/mL (75-25) subcutaneous susp insulin lispro protamin-lispro Laiba Sonu IPRATROPIUM-ALBU TEROL 0.5-2.5 (3) MG/3ML SOLN ipratropium-albut [place] 15186687729 Laiba Sonu LEVOTHYROXINE SODIUM 50 MCG TABS 1 tablet by mouth once a day levothyroxine 97892165079 Laiba Sonu METFORMIN HCL 500 MG TABS 1 tablet by mouth once a day metformin 94088347495 Laiba Sonu MIRTAZAPINE 15 MG TABS 1 tablet by mouth once a day mirtazapine 44638403405 Laiba Sonu MYCOPHENOLATE MOFETIL 500 MG TABS 1 tablet by mouth twice a day mycophenolate mofetil 70318506904 Laiba Sonu PRAVASTATIN SODIUM 20 MG TABS 1 tablet by mouth once a day pravastatin 50063532250 Laiba Sonu URSODIOL 500 MG TABS 1 tablet by mouth twice a day ursodiol 79705507695 Laiba Sonu Medications Administered No information available. 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, PONY RIDE OPERATOR FALLRSKASSES yes Fall ris k assessment Lab [...] in Serum or Plasma Office Visit: Office Visit:r m 2 MEDS REVIEW Done Documenta tion of current medications (procedure) SMOK STATUS Former smoker Tobacco smoking status Plan of Care Type Date Detail Appointment 11:00 AM Rocky Patino MD, [facility], [address], [place], [address], Pending order New Oral Antibio tic Pending order Change oral anti biotics Pending order CMP Pending order CBC with [...] Date G2211 Complex E&M visit add-on (G2211) G2211 Complex E&M visit add-on (G2211) CPT-91492 CMP [id number] CBC with Differential 2024 CPT-19019 BNP CPT-53167 Itraconazole Level 3 CPT-Cooral Continue oral antibiotics 29/04/13 G2211 Complex E&M visit add-on (G2211) CPT-Cooral Continue oral antibiotics 27/02/11 CPT-01597 CMP [id number] CBC with Differential 2024 CPT-06214 Itraconazole Level 1 CPT-55438 BNP CPT-elizabeth New Oral Antibiotic CPT-44721 CMP [id number] CBC with Differential 2024 CPT-69216 CD4 54802 Fungitell, serum (1-3) D-Glucan Assay 03/07/12 CPT-02182 Urine Culture & Sensitivity [id number], [id number] Urinalysis CPT-cf Fungal Culture & Sensitivity CPT-96968 BNP Vital Signs Date Name Value Unit [...]
--- OUTSIDE RECORDS SUMMARY | 2025-06-23 11:12 | XMS_ITS | Encounter Summary ---
Author Organization [facility] Address [address] [place] [address] Care Team Providers Care Raisin Separator Operator Name Role Phone Rocky Almanzar MD Primary Care Provider [phone] Reason for Visit * Reason Onset Date Comments HCN - Patient Message 04/24/2025 Encounter Details Date Type Department Care Team (Late st Contact Info) Description 04/24/2025 Telephone [facility] Diabetes Education [address] [place] [phone] Rocky Almanzar MD [address] [place] [address] HCN - Patient Message Social History Tobacco [...] refill. Please contact patient Best contact number: [phone] (home) Optimal time of day to reach caller: Anytime Additional comments/information from caller: n/a Note: Please do not reply to this message. Follow-up communication and further actions as a result of this message need to be communicated with the patient directly, if the patient is not active onMyChart. If the patient is active on MyChart, they will receive notification of the communication/outcome via [facility]. documented in this encounter Plan of Treatment Upcoming Encounters Date Type Department Care Team (Late st Contact Info) Description 07/07/2025 11:40 AM EDT [facility] End[facility]ology [address] [place] [address] Melany Rosales, DO [address] [place] [address] 07/17/2025 2:00 PM EDT Office Visit [facility] Audiology [address] [place] [address] Lottie Lund, AuD [address] [place] [address] 01/05/2026 11:00 AM EST Office Visit [facility] [place] [address], [address] [place] [address] Vivian Macias S, OD [address] [place] [address] documented as of this encounter [...] documented as of this encounter Care Teams Raisin Separator Operator Relationship Specialty Start Date End Date Rocky Almanzar MD [address] [place] [address] PCP - General 03/18/21 documented as of this encounter
--- OUTSIDE RECORDS SUMMARY | 2025-06-23 11:12 | XMS_ITS | Encounter Summary ---
Author Organization [facility] Address [address] [place] [address] Care Team Providers Care Rubber Tire Curer Name Role Phone Rocky Almanzar MD Primary Care Provider [phone] Reason for Visit * Reason Comments Med Refill Encounter Details Date Type Department Care Team (Late Contact Info) Description 11/10/2021 Refill [facility] [address] [place] [address] Jason Romero MD [address] [address] Type 2 diabetes mellitus with other specified complication, with long-term current use of insulin ([facility]) Social History Tobacco Use Types Packs/Day Years [...] EDT Office Visit [facility] [address] [place] [address] Melany Rosales, DO [address] [place] [address] 07/17/2025 2:00 PM EDT Office Visit [facility] Audiology [address] [place] [address] Lottie Lund, AuD [address] [place] [address] 01/05/2026 11:00 AM EST Office Visit [facility] [place] [address], [address] [place] [address] Vivian Macias S, OD [address] [place] [address] documented as of this encounter Visit Diagnoses Diagnosis Type 2 diabetes mellitus with other specified complication, with long-term current use of insulin ([facility]) documented in this encounter Additional Health Concerns Infection Onset Date Last Indicated Resolved Time 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
--- OUTSIDE RECORDS SUMMARY | 2025-06-23 11:12 | XMS_ITS | Encounter Summary ---
Author Organization [facility] Address [address] [place] [address] Care Team Providers Care Photocopying Equipment Mechanic Name Role Phone Rocky Almanzar MD Primary Care Provider [phone] Encounter Details Date Type Department Care Team (Late st Contact Info) Description 04/28/2025 Telephone [facility] Endocrinology [address] [place] [address] Jason Romero MD [address] [place] [address] Social History Tobacco Use Types [...] with Derek's phone number for refills from [facility]. Pt's was on the phone and was able to take appropriate notes. Pt to come by [facility] to cone picker smaple FSL3+ sensor on Sunday. No other questions at this time. * Telephone Encounter - MARYLIN DALAL - 04/28/2025 12:05 PM EDT Pt requesting a call back regarding his Leroy system not seeming to be working. documented in this encounter Plan of Treatment Upcoming Encounters Date Type Department Care Team (Late st Contact Info) Description 07/07/2025 11:40 AM EDT Office Visit [facility] Endocrinology [address] [place] [phone] Melany Rosales, DO [address] [place] [address] 07/17/2025 2:00 PM EDT Office Visit [facility] Audiology [address] [place] [address] Lottie Lund, AuD [address] [place] [address] 01/05/2026 11:00 AM EST Office Visit [facility] [address], [address] [place] [address] Vivian Macias S, OD [address] [place] [address] documented as of this encounter [...] documented as of this encounter Care Teams Photocopying Equipment Mechanic Relationship Specialty Start Date End Date Rocky Almanzar MD [address] [place] [address] PCP - General 03/18/21 documented as of this encounter
--- OUTSIDE RECORDS SUMMARY | 2025-06-23 11:12 | XMS_ITS | Encounter Summary ---
Author Organization [facility] Address [address] [place] [address] Care Team Providers Care Assurance Sourcing Manager Name Role Phone Rocky Almanzar MD Primary Care Provider [phone] Reason for Visit * Reason Comments Med Refill Encounter Details Date Type Department Care Team (Late Contact Info) Description 05/20/2021 Refill [facility] Endocrinology [address] [place] [address] Jason Romero MD [address] [address] Social History Tobacco Use Types [...] 11:40 AM EDT [facility] [address] [place] [address] Melany Rosales, DO [address] [place] [address] 07/17/2025 2:00 PM EDT Office Visit [facility] Audiology [address] [place] [address] Lottie Lund, AuD [address] [place] [address] 01/05/2026 11:00 AM EST Office Visit [facility] [address], [address] [place] [address] Vivian Macias, OD [address] [place] [address] documented as of this encounter Visit Diagnoses Not on filedocumented in this encounter Additional Health Concerns Infection Onset Date Last Indicated Resolved Time MRSA 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
--- OUTSIDE RECORDS SUMMARY | 2025-06-23 11:12 | XMS_ITS | Clinical Summary ---
[facility] Organization [facility] Address [address] [place] [address] Care Team Providers Care Recruiting Manager Name Role Phone Provider, No Known Primary Care Provider Unavail able Social History Tobacco Use Types Packs/Day Years [...] Completed 08/15/2016 AAA SCREEN ONCE Completed 12/07/2016 Insurance [facility] Medicare [place] [address] Care Teams Recruiting Manager Relationship Specialty Start Date End Date Provider, No Known [facility] [place] [address] PCP - General 01/14/25
--- OUTSIDE RECORDS SUMMARY | 2025-06-23 11:12 | XMS_ITS | Clinical Summary ---
Author Organization [facility] Address [address] [place] [address] Care Team Providers Care Roving Winder Name Role Phone Rocky Almanzar MD Primary Care Provider [phone] Allergies Active Allergy Reactions Criticality Noted Date [...] Type Department Care Team Description 05/04/2025 Refill [facility] Endocrinology [address] [place] [phone] Jason Romero MD Type 2 diabetes mellitus with hyperglycemia, with long-term current use of insulin ([facility]) 04/28/2025 Telephone [facility] Endocrinology [address] [place] [address] Jason Romero MD 04/24/2025 Telephone [facility] Diabetes Education [address] [place] [address] Rocky Almanzar MD HCN - [...] Description 07/07/2025 11:40 AM EDT Office Visit [facility] Endocrinology [address] [place] [phone] Melany Rosales, DO [address] [place] [address] 07/17/2025 2:00 PM EDT Office Visit [facility] Audiology [address], [address] [place] [address] Lottie Lund, AuD [address] [place] [address] 01/05/2026 11:00 AM EST Office Visit [facility] [address], [address] [place] [address] Vivian Macias S, OD [address] [place] [address] Health Maintenance Due Date Last [...] A1C 03/17/202509/2025, 05/23/2024, 11/22/2023, Additional history exists [id number] Vaccine (7 - Moderna risk season) 2025 [...] this topic Medical Devices Implanted Type Area Research Test Engine Evaluator Device Identifier Shelf Expiration Date Model / Serial / Lot Roseline Stanleyk Advantage Ci Hifocus 1j Electrode--06/05 Implanted:06/05 by Ky Del Rio MD (Quantity not on file) Cochlear Left: Ear Cempra [id number] / [id number] / Description:Roseline 90K Advant age CI HiFocus 1J electrode--cochlear implant by Dr. Del Rio at [facility] on 06/21/2017, operative note in Epic. LEFT EAR. Roseline ULTRA 3D Cochlear implant REF: [id number] Serial number: [id number] Procedures Procedure Name Priority Date/Time Associated Diagnosis [...] % [facility] Kit Lot Number [id number] [facility] Kit Expiration Date 10/04/26 HEALTHCARE [facility] Blood Venous blood specimen / Unknown 12/16/2024 12:27 PM EST Jason Romero MD POINT OF CARE TEST ENTER/ED IT ORDERABLES Final Result [facility] [address] [place] [address] * COLONOSCOPY (08/03/2017) Anatomical Region Laterality Modality Endoscopy Narrative 08/03/2017 Ordered by an unspecified provider. 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
--- OUTSIDE RECORDS SUMMARY | 2025-06-23 11:12 | XMS_ITS | Encounter Summary ---
Author Organization [facility] Address [address] [place] [address] Care Team Providers Care Coal Hiker Name Role Phone Rocky Almanzar MD Primary Care Provider [phone] Reason for Visit * Reason Comments Med Refill Encounter Details Date Type Department Care Team (Late st Contact Info) Description 05/04/2025 Refill [facility] Endocrinology [address] [place] [address] Jason Romero MD [address] [address] Type 2 diabetes mellitus with hyperglycemia, with long-term current use of insulin ([facility]) Social History Tobacco Use Types Packs/Day [...] Description 07/07/2025 11:40 AM EDT Office Visit [facility] Endocrinology [address] [place] [phone] Melany Rosales, DO [address] [place] [phone] 07/17/2025 2:00 PM EDT Office Visit [facility] Audiology [address], 3[address] [place] [address] Lottie Lund, AuD [address] [place] [address] 01/05/2026 11:00 AM EST Office Visit [facility] [address], [address] [place] [address] Vivian Macias S, OD [address] [place] [address] documented as of this encounter Visit Diagnoses Diagnosis Type 2 diabetes mellitus with hyperglycemia, with long-term current use of insulin ([facility]) documented in this encounter Additional Health Concerns Infection Onset Date Last Indicated Resolved Time 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
--- OUTSIDE RECORDS SUMMARY | 2025-06-23 11:13 | XMS_ITS | Patient Health Record ---
Author Organization [facility] Address [address] [facility] [address] [facility] [address] [place] [phone] Care Team Providers Care Running Specialist Name Role Phone Shauna Almanzar Primary Care Provider [phone] Emir Berger Unavailable [phone] Trinity Medeiros Unavailable [phone] Doretha Bunrs Unavailable [phone] Allergies Allergen (clinical drug ingredient) Drug/Non Drug [...] 5.5 Performing Lab: Notes/Report: Test performed by [facility] , [address], [place] [address] Kristian Trevino MD, Semaphore Operator CLIA: [id number] Sodium 139 135-145 mmol/L Potassium 3.7 3.5-5.3 [...] 695 Performing Lab: Notes/Report: Test performed by [facility] [address] [place] [address] , [address], [place] [address] Kristian Trevino MD, Semaphore Operator CLIA: [id number] Albumin/Creatinine Ratio, Urine 695 0-30 ug/mg Microalbumin, [...] 229 Performing Lab: Notes/Report: Test performed by [facility] [address] [place], [place] [address] [place] , [address], [place] [address] Kristian Trevino MD, Semaphore Operator CLIA: [id number] Sodium 138 135-145 mmol/L Potassium 4.3 3.5-5.3 [...] 08/25/24 CA 8.3 8.4-10.2 mg/dl H-BMP Reviewed date:09/19/2024 01:07:51 PM [...] AM Interpretation:cl 109, co2 21, bun 25, vvo197 Performing Lab: Notes/Report: NA 137 136-145 mmol/L K 3.8 3.5-5.1 mmoL/L CL 109 98-107 mmol/L CO2 21 22.0-30.0 mmol/L GAP 10.8 5-15 mEq/L BUN 25 9-20 mg/dl CREATT 1.20 0.66-1.25 mg/dl GFRAA 72 >60 ML/MIN EGFR 59 >60 ml/min GLU 380 74-100 mg/dl CA 9.0 8.4-10.2 mg/dl H-TSH Reviewed date:11/13/2024 01:33:09 PM Interpretation:Normal Performing Lab: Notes/Report: TSH 3.05 0.465-4.68 uIU/mL Glycohemoglobin A1c (in hous e) Reviewed date:10/10/2024 10:20:31 AM Interpretation: Performing Lab: Notes/Report: glycohemoglobin 7.7% 5 - 6.5 % H-BMP Reviewed date:09/15/2024 10:12:19 AM Interpretation:bun 25, [...] Performing Lab: Notes/Report: Positive strep test Pos P-Vitamin D 25-Hydroxy Reviewed date:06/10/2025 08:30:05 AM Interpretation:Normal Performing Lab: Notes/Report: Test performed by [facility] [employer] [address] [place] [address] , [address], [place] [address] Kristian Trevino MD, Semaphore Operator CLIA: [id number] Vitamin D 25-Hydroxy 57.8 30.0-100.0 ng/mL Interpretation of Vitamin D 25 OH: < 20 ng/mL - Deficiency 20 - 29 ng/mL - Insufficiency 30 - 100 ng/mL - Sufficiency > 100 ng/mL - Super-therapeutic- toxicity may occur above this level. Clinical correlation required. P-TSH reflex to FT4 Reviewed date:06/10/2025 08:30:05 AM Interpretation:Normal Performing Lab: Notes/Report: Test performed by [facility] [address] , [place] [address] Kristian Trevino MD, Semaphore Operator CLIA: [id number] TSH reflex to FT4 3.44 0.43-5.25 mU/L P-Sed Rate (ESR) Reviewed date:06/10/2025 08:30:05 AM Interpretation:31 Performing Lab: Notes/Report: Test performed by [facility] [address] , [place] [address] Kristian Trevino MD, Semaphore Operator CLIA: [id number] Erythrocyte Sedimentation Rate (ESR), Automated 31 <21 mm/hr R-T-Oiytgerw Protein (CRP) Reviewed date:06/10/2025 08:30:05 AM Interpretation:4.00 Performing Lab: Notes/Report: Test performed by [facility] [address] , [place] [address] Kristian Trevino MD, Semaphore Operator CLIA: [id number] C-Reactive Protein (CRP) 4.00 <0.50 mg/dL P-CPK Reviewed date:06/10/2025 08:30:05 AM Interpretation:23 Performing Lab: Notes/Report: Test performed by [facility] [address] , [place] [address] Kristian Trevino MD, Semaphore Operator CLIA: [id number] Creatine Kinase 23 20-200 U/L P-Comprehensive Metabolic Pa tarah (CMP) Reviewed date:06/10/2025 08:30:05 AM Interpretation:K 3.0, Glu 245, Creat 1.52, eGFR 48, Pro 5.8, Alb 3.2, Alk Phos 232 Performing Lab: Notes/Report: Test performed by [facility] [address] , [address], [place] [address] Kristian Trevino MD, Semaphore Operator CLIA: [id number] Sodium 141 135-145 mmol/L Potassium 3.0 3.5-5.3 [...] 0.5 <0.2-1.2 mg/dL A/G Ratio 1.2 1.1-2.5 CBC Venipuncture (in house) Reviewed date:06/10/2025 08:30:05 [...] - 38 platlet 538 100 - 400 H-CBC Reviewed date:11/04/2024 10:00:59 AM Interpretation: Performing [...] every 6 hrs Active FreeStyle Leroy 3 Bronte - as directed 05/12/2025 Not-Taking Levothyroxine Sodium [...] W/U Status Risk Notes Problem Essential hypertension (63555200) Essential (primary) hypertension (I10) Active confirmed Problem Vitamin D deficiency (94740506) Vitamin D deficiency (E55.9) Active confirmed Problem Essential hypertension (50299094) Essential hypertension (I10) Active confirmed Problem Screening for malignant neoplasm of prostate (574057558) Prostate cancer screening (Z12.5) Active confirmed Problem Anorexia (94763087) Anorexia (R63.0) Active con firmed Problem Paroxysmal atrial fibrillation (872544764) Paroxysmal atrial fibrillation (I48.0) Active confirmed Problem Hyperglycemia due to type 2 diabetes mellitus (882622770274373) Type 2 diabetes mellitus with hyperglycemia (E11.65) Active confirmed Problem Mixed hyperlipidemia (989664896) Mixed hyperlipidemia (E78.2) Active confirmed Problem Hyperlipidemia (79274898) Hyperlipidemia, unspecified (E78.5) Active confirmed Problem Hereditary hemochromatosis (81087028) 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) Active confirmed Problem Chronic respiratory failure (63845839) Chronic respiratory failure with hypoxia (J96.11) Active confirmed Problem Autoimmune hepatitis (099856093) Autoimmune hepatitis (K75.4) Active confirmed Problem Cholelithiasis without obstruction (45152152) Calculus of gallbladder without cholecystitis without obstruction (K80.20) Active confirmed Problem Cochlear implant status (Z96.21) Active confirmed Problem Male erectile disorder (352551908) Male erectile disorder (N52.9) Active confirmed Problem Long-term current use of insulin (205391645) terminologist (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 (Z79.4) Active confirmed Problem Type II diabetes mellitus without complication (847806525) Type 2 diabetes mellitus without complication (E11.9) Active confirmed Problem Acquired hypothyroidism (855017073) Acquired hypothyroidism (E03.9) Active confirmed Problem Pulmonary fibrosis (84734352) Pulmonary fibrosis (J84.10) Active confirmed Problem Chronic fatigue syndrome (45807160) Chronic fatigue (R53.82) Active confirmed Problem COPD - Chronic obstructive pulmonary disease (15702198) Chronic obstructive pulmonary disease, unspecified COPD type (J44.9) Active confirmed Problem Pneumonia (048385182) Pneumonia of right lower lobe due to infectious organism (J18.9) Active confirmed Problem Hearing loss (83056647) Hearing loss, bilateral (H91.93) Active confirmed Problem Disorder of adrenal gland (25305884) 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) Active confirmed Problem Neutropenia (172436067) Neutropenia, unspecified type (D70.9) Active confirmed Problem Interstitial lung disease (298604693) Interstitial lung disease (J84.9) Active confirmed Problem Seasonal allergic rhinitis (554429114) Seasonal allergic rhinitis, unspecified allergic rhinitis trigger (J30.2) Active confirmed Problem Granulocytopenia (733279107) 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 confirmed Problem Systemic lupus erythematosus (91928273) Lupus (systemic lupus erythematosus) (M32.9) Active confirmed Problem Cardiac arrhythmia (161761409) Cardiac arrhythmia, unspecified cardiac arrhythmia type (I49.9) Active confirmed Problem Malnutrition, calorie (242698678) Caloric malnutrition (E46) Active confirmed Problem Benign prostatic hypertrophy without outflow obstruction (763021950) BPH without urinary obstruction (N40.0) Active confirmed Problem Allergic rhinitis caused by pollen (32832617) Acute seasonal allergic rhinitis due to pollen (J30.1) Active confirmed Problem Sensorineural hearing loss, bilateral (303756575) Sensorineural hearing loss (SNHL) of both ears (H90.3) Active confirmed Problem Cholestatic hepatitis (46561829) Cholestatic hepatitis (K75.89) Active confirmed Problem Skin sensation disturbance (09816150) Sensitive skin (R20.3) Active confirmed Problem Dilatation of aorta (98749442) Dilatation of aorta (I77.819) Active confirmed Problem Tomography - chest abnormal (460326884) Abnormal CT scan, chest (R93.89) Active confirmed Problem Left atrial dilatation (176002347) Left atrial dilatation (I51.7) Active confirmed Problem Chronic vascular insufficiency of intestine (881926964) 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 Problem Protein malnutrition (02583380) Protein malnutrition (E46) Active confirmed Vital Signs Heart Rate 64 /min 06/09/2025 Blood pressure diastolic 68 mm Hg 06/09/2025 Height 65 in 06/09/2025 Blood pressure systolic 112 mm Hg 06/09/2025 Weight 130 lbs 06/09/2025 BMI 21.63 kg/m2 06/09/2025 Encounters Encounter Location Date Provider Diagnosis [facility] [place] [address] [id number] 09/05/2024 Shauna Almanzar Pneumonia of left lo wer lobe due to infectious organism J18.9 ; Interstitial lung disease J84.9 ; Chronic respiratory failure with hypoxia J96.11 ; 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 ; Autoimmune hepatitis K75.4 ; Protein malnutrition E46 and Caloric malnutrition E46 [facility] [place] [address] [id number] 09/16/2024 Trinity Medeiros Strep pharyngitis J0 2.0 and Oral candidiasis B37.0 [facility] [place] [address] [id number] 10/09/2024 Shauna Almanzar Lesion of adrenal gl and E27.9 ; Essential hypertension I10 ; Type 2 diabetes mellitus without complication E11.9 ; Acquired hypothyroidism E03.9 ; Hearing loss, bilateral H91.93 ; Cochlear implant status Z96.21 ; Protein malnutrition E46 ; Chronic obstructive pulmonary disease, unspecified COPD type J44.9 and Encounter for immunization Z23 [facility] [place] [address] [place] [id number] 11/03/2024 Emir Haynes Acute cough R05.1 [facility] [address] [id number] 11/07/2024 Shauna Almanzar Type 2 diabetes aquilino itus without complication E11.9 ; Acquired hypothyroidism E03.9 and Hereditary hemochromatosis E83.110 [facility] [place] [address] [place] [id number] 01/09/2025 Shauna Almanzar Type 2 diabetes aquilino itus without complication E11.9 ; Hereditary hemochromatosis E83.110 ; Cochlear implant status Z96.21 ; Chronic obstructive pulmonary disease, unspecified COPD type J44.9 ; Essential (primary) hypertension I10 ; Protein malnutrition E46 and Gross hematuria R31.0 [facility] [place] [address] [place] [id number] 01/15/2025 Shauna Almanzar Interstitial lung disease J84.9 ; 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 ; Autoimmune hepatitis K75.4 ; Protein malnutrition E46 ; Cochlear implant status Z96.21 ; Type 2 diabetes mellitus without complication E11.9 and Hematuria R31.9 [facility] [address] [id number] 02/11/2025 Emir Berger Type 2 diabetes aquilino itus with hyperglycemia E11.65 ; terminologist (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.4 ; Gross hematuria R31.0 and Body mass index (BMI) of 19.0 to 19.9 in adult Z68.1 [facility] [place] [address] [id number] 03/13/2025 Doretha Burns Drug interaction Z78 .9 [facility] [address] [id number] 04/02/2025 Shauna Almanzar Type 2 diabetes aquilino itus without complication E11.9 ; 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 ; Cholestatic hepatitis K75.89 ; retirement (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.4 ; 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 ; Generalized weakness R53.1 and BMI 20.0-20.9, adult Z68.20 [facility] [place] [address] [place] [id number] 04/30/2025 Shauna Almanzar Type 2 diabetes aquilino [...] adult Z68.22 and Cochlear implant status Z96.21 [facility] [address] [place] [id number] 06/09/2025 Emir Haynes Generalized weakness R53.1 ; Anorexia R63.0 and Vitamin D deficiency E55.9 [facility] [address] [place] [id number] 05/12/2025 J Rogerio Almanzar [facility] [address] [place] [id number] 06/10/2025 J Rogerio Almanzar [facility] [address] [place] [id number] 09/01/2024 J Rogerio Yohan [facility] [address] [place] [id number] 09/04/2024 J Rogerio Almanzar [facility] [address] [place] [id number] 09/08/2024 J Rogerio Almanzar [facility] [address] [place] [id number] 09/10/2024 J Rogerio Almanzar [facility] [address] [place] [id number] 09/15/2024 J Rogerio Yohan [facility] [address] [place] [id number] 09/16/2024 J Rogerio Almanzar [facility] [address] [place] [id number] 09/25/2024 J Rogerio Yohan [facility] [address] [place] [id number] 11/03/2024 Emir Haynes [facility] [address] [place] [id number] 01/12/2025 Shauna Rogerio Almanzar [facility] [address] [place] [id number] 05/12/2025 Shauna Rogerio Almanzar [facility] [address] [place] [id number] 06/04/2025 Shauna Rogerio Almanzar [facility] [address] [place] [id number] 06/10/2025 Emir Berger Assessments Encounter Date Diagnosis (ICD Code) Assessment [...] to resume use of his CGM 02/11/2025 terminologist (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 (ICD-10 - Z79.4) [...] bid 06/09/2025 Generalized weakness (ICD-10 - R53.1) 06/09/2025 Vitamin D deficiency (ICD-10 - E55.9) 04/30/2025 Adrenal abnormality (ICD-10 - E27.9) 04/02/2025 [...] E27.9) 10/09/2024 Acquired hypothyroidism (ICD-10 - E03.9) 01/15/2025 Protein malnutrition (ICD-10 - E46) 01/09/2025 Chronic obstructive pulmonary disease, unspecified COPD type (ICD-10 - J44.9) 02/11/2025 Body mass index (BMI) of 19.0 to 19.9 in adult (ICD-10 - Z68.1) 04/02/2025 Cholestatic hepatitis (ICD-10 - K75.89) 04/30/2025 Interstitial lung disease (ICD-10 - J84.9) 04/02/2025 terminologist (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 (ICD-10 - Z79.4) 04/30/2025 Essential (primary) hypertension (ICD-10 - I10) 01/15/2025 Cochlear implant status (ICD-10 - Z96.21) [...] R31.9) 01/09/2025 Gross hematuria (ICD-10 - R31.0) 09/05/2024 Caloric malnutrition (ICD-10 - E46) 10/09/2024 [...] H-TSH 11/07/2024 Next Appt Details Provider Name:Shauna Merida , 07/03/2025 11:45:00 AM, [address], [place], [id number], Provider Name:Shauna Beatty Idjerri , 07/06/2025 03:34:00 PM, [address], [place], [id number], Insurance Providers Payer Name Payer Address Payer Phone Subscriber Number Group Number Insured Name Patient Relationship to Insured Coverage Start Date Coverage End Date [facility] [id number] [place] [address] [id number] HERMILA GOLDEN Self - patient is the insured Medical (General) History Medical History History ICD Code Seasonal Allergies Kidney Stones Steatohepatitis hemachromatosis,(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 Smalls and Dr. Thakur Atrial dysrrhythmia, see notes 2011 hearing loss 2013, hearing aids Impaired fasting glucose Gets yearly eye exams, [place] [facility] Questionable Dx Lupus erythematosus 2016 Granuloma [...]
[2025-06-23 12:46] LABS: INR 8.00 (0.9-1.1); Prothrombin Time 90.0 seconds (10.1-12.5)
[2025-06-23 13:38] LABS: PHA INR Fingerstick 8.0 (0.9-1.1)
== END 2025-06-23 13:40 ==
PROVIDERS: PCP Family Medicine; Visit Provider Nurse Practitioner
DX: I48.0 Paroxysmal atrial fibrillation (principal); Z79.01 Long term (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 of anticoagulants
CPT/HCPCS: 36415; 85610; 99211; G0463

== ENCOUNTER 2025-06-26 11:02 | Outpatient (CLI) | payer MEDICARE, SELFPAY ==
--- OUTSIDE RECORDS SUMMARY | 2025-04-30 10:00 | XMS_ITS ---
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 Vital Signs Weight 133.8 lbs 04/30/2025 Blood pressure systolic 130 mm Hg 04/30/20 25 Blood pressure diastolic 62 mm Hg 025 Heart Rate 85 /min 04/30/2025 Height 65 in 04/30/2025 BMI 22.26 kg/m2 04/30/2025 Encounters Encounter Location Date Provider Diagnosis [facility] [facility]10 [facility] [address] [id number] 04/30/2025 Shauna Almanzar Type 2 diabetes aquilino itus with hyperglycemia E11.65 ; terminologist (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.4 ; Adrenal [...] mellitus with hyperglycemia (ICD-10 - E11.65) 04/30/2025 long-term (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 (ICD-10 - Z79.4) [...] Name:Shauna Merida , 07/03/2025 11:45:00 AM, 1210 [facility] 36 [facility], [address], [place], [place], [id number], Provider Name:Shauna Merida , 07/06/2025 03:34:00 PM, 1210 [facility] 36 [facility], [address], [place], [place], [address], Progress Notes * HERMILA GOLDENOB: [birth year] (75 yo M)Acc No.[id number]:04/30/2025 Progress Notes Patient: HERMILA BUCION Provider: Shauna Almanzar M.D. :1950 A ge:75 Y S ex:Male Date:04/30/2025 Address:[address] [place] [address] [address], [place], [id number] Subjective: * Chief Complaints: * 1 . 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 B [place] 22.0-22.9, adult - Z68.22 1 3. C [...] * Images: Billing Information: * Visit Code: 93273 Office Visit, Est Pt., Level 4. * Procedure Codes: G2211 Complex e/[place] add on. 1036F TOBACCO NON-USER. G8420 BMI<30 AND >=22 CALC & DOCU. G8950 PREHTN/HTN BP DOC INDCD F/U DOC. G8752 MOST RECENT SYSTOLIC BP < 140MM HG. G8754 MOST RECENT DIASTOLIC BP < 90MM HG. * Electronic signature of Shauna Almanzar MD on 06/26/2025 at 11:04 AM EDT Sign off status: Pending * Provider: Shauna Almanzar M.D. Date: 0 04/30/2025 Generated for Printi ng/Faxing/eTransmitting on: 0 06/26/2025 11:04 AM EDT History and Physical Notes * [...]
--- OUTSIDE RECORDS SUMMARY | 2025-06-09 06:00 | XMS_ITS ---
Author Organization [facility] Address 1210 [facility] [address] [phone] Care Team Providers Care [place] K[place] Maori Name Role Phone Shauna Almanzar Primary Care Provider Emir Berger Unavailable [phone] Allergies Allergen (clinical drug ingredient) Drug/Non Drug [...] 232 Performing Lab: Notes/Report: Test performed by [employer] [facility]0 [facility] , [address], [place] [address] Kristian Trevino MD, Box Truck Washer CLIA: [id number] Sodium 141 135-145 mmol/L Potassium 3.0 3.5-5.3 [...] Interpretation:23 Performing Lab: Notes/Report: Test performed by [employer] [address] , [facility], [place] [address] Kristian Trevino MD, Box Truck Washer CLIA: [id number] Creatine Kinase 23 20-200 U/L I-L-Woleiddq Protein (CRP) Reviewed date:06/10/2025 08:30:05 AM Interpretation:4.00 Performing Lab: Notes/Report: Test performed by [employer] [address] , [address], [place] [address] Kristian Trevino MD, Box Truck Washer CLIA: [id number] C-Reactive Protein (CRP) 4.00 <0.50 mg/dL P-Sed Rate (ESR) Reviewed date:06/10/2025 08:30:05 AM Interpretation:31 Performing Lab: Notes/Report: Test performed by [facility] [address] [place] [address] , [address], [place] [address] Kristian Trevino MD, Box Truck Washer CLIA: [id number] Erythrocyte Sedimentation Ra te (ESR), Automated 31 <21 mm/hr P-TSH reflex to FT4 Reviewed date:06/10/2025 08:30:05 AM Interpretation:Normal Performing Lab: Notes/Report: Test performed by [employer] [address] [place] [address] , [address], [place] [address] Kristian Trevino MD, Box Truck Washer CLIA: [id number] TSH reflex to FT4 3.44 0.43-5.25 mU/L P-Vitamin D 25-Hydroxy Reviewed date:06/10/2025 08:30:05 AM Interpretation:Normal Performing Lab: Notes/Report: Test performed by [employer] [address] [place] [address] , [address], [place] [address] Kristian Trevino MD, Box Truck Washer CLIA: [id number] Vitamin D 25-Hydroxy 57.8 30.0-100.0 ng/mL Interpretation [...] Duration: 90 days Active FreeStyle Leroy 3 [place] - as directed 05/12/2025 Not-Taking Levothyroxine Sodium [...] Status W/U Status Risk Notes Problem Anorexia (96416495) Anorexia (R63.0) Active confirmed Vital Signs Weight 130 lbs 06/09/2025 Blood pressure systolic 112 mm Hg 06/09/20 25 Blood pressure diastolic 68 mm Hg 025 Heart Rate 64 /min 06/09/2025 Height 65 in 06/09/2025 BMI 21.63 kg/m2 06/09/2025 Encounters Encounter Location Date Provider Diagnosis [facility] [address] [place] [address] 36 [facility] [address] [place]ae[place] [id number] 06/09/2025 Emir Berger Generalized weakness R53.1 ; [...] Provider Name:Shauna Merida , 07/03/2025 11:45:00 AM, [address] [place] [address], [address], [place] Baez, [id number], Provider Name:Shauna Merida , 07/06/2025 03:34:00 PM, [address] [place] [address], [place] Baez, [id number], Progress Notes * HERMILA GOLDENOB: [birth year] (75 yo M)Acc No.[id number]:06/09/2025 Progress Notes Patient: Dnaiele SAALS HERMILA WALDROP Provider: Jaden Berger M.D. 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, user name and password for portal: [email or web address]...[email or web address], type 2 diabetes, followed at [facility], 06/05/2019 CT: healing of R lung [...] mouth daily , Not-Taking FreeStyle Leroy 3 [place] - Device as directed , Not-Taking FreeStyle [...] AM EDT > See phone encounter ?LAB: O-P-Ergsfwuv Protein (CRP) (Collection Date & Time - [...] G 2211 Complex e/[place], [address] CBC WITH AUTO DIFF, 1036F TOBACCO NON-USER, G8783 BP SCR PRFRM RCMDD DEFIND SCR INTVL, G8752 MOST RECENT SYSTOLIC BP < 140MM HG, G8754 MOST RECENT DIASTOLIC BP < 90MM HG * Follow Up: v ia phone to report test results * Images: Billing Information: * Visit Code: 27560 Office Visit, Est Pt., Level 4. * Procedure Codes: G2211 Complex e/[place]. [address] CBC WITH AUTO DIFF. 1036F TOBACCO NON-USER. G8783 BP SCR PRFRM RCMDD DEFIND SCR INTVL. G8752 MOST RECENT SYSTOLIC BP < 140MM HG. G8754 MOST RECENT DIASTOLIC BP < 90MM HG. * Electronic signature of Elidia Berger MD on 06/26/2025 at 11:05 AM EDT Sign off status: Pending * Provider: Jaden Berger M.D. Date: 06/09/2025 Generated for Marissa mendoza/Rei/Fernyransmitting on: 0 06/26/2025 11:05 AM EDT History and Physical Notes [...]
--- OUTSIDE RECORDS SUMMARY | 2025-06-15 11:23 | XMS_ITS ---
Author Organization [facility] Address [address] [place] [address] [place] [address] Phone Care Team Providers Care Carry In Worker Name Role Phone Sukumar CUEVAS, Rocky Griggs [ ] Conditions or Problems No information available. Medications Medication Instructions Start Date Stop Date Generic Name [facility] Provider MINOCYCLINE HCL 100 MG CAPS 1 capsule by mouth twice a day Take one twice a day for three days then only take 1 once a day 1 minocycline [id number] Rocky Patino MD budesonide 3 mg by [...] Detail Appointment 11:00 AM Rocky Patino MD, [facility], [address], [place], [address], Pending order New Oral Antibio tic Pending [...]
--- OUTSIDE RECORDS SUMMARY | 2025-06-23 07:29 | XMS_ITS ---
Author Organization [facility] Address [address] [place] [phone] Care Team Providers Care Chief Lock Operator Name Role Phone Shauna Almanzar Primary Care Provider REASON FOR VISIT due col Encounters Encounter Location Date Provider Diagnosis [facility] [address] [place] [id number] 06/23/2025 Shauna Almanzar Colon cancer screening Z12.11 Assessments Encounter Date Diagnosis (ICD Code) Assessment Notes Treatment Notes Treatment Clinical Notes Section Notes 06/23/2025 Colon cancer screening (ICD-10 - Z12.11) Plan Of Treatment Pending Test Test Name Order Date Cologuard 06/23/2025 Next Appt Details Provider Name:Shauna Merida er, 07/03/2025 11:45:00 AM, [address], [place], [id number], Provider Name:Shauna Merida er, 07/06/2025 03:34:00 PM, [address], [address], [place], [phone], Progress Notes * HERMILA GOLDENOB: [birth year] (75 yo M)Acc No.[id number]:06/23/2025 Patient: Daniele SALASHERMILA :1950 A ge:75 Y S ex:Male Address:[address] [place] [address], [place] [address] Subjective: * Chief Complaints: * D ue col * Medical History: * Surgical History: * Hospitalization/Major Diagno stic Procedure: * Medications: Objective: * Vitals: * Physical Examination: Assessment: * Assessment: 1. C endy cancer screening - Z12.11 (Primary) Plan: * Treatment: * Procedure Codes: * true * Date: Generated for Marissa mendoza/Rei/Jeremiah on: 0 06/26/2025 11:04 AM EDT
--- OUTSIDE RECORDS SUMMARY | 2025-06-26 11:04 | XMS_ITS | Encounter Summary ---
Author Organization [facility] Address [address] [place] [address] Care Team Providers Care Dip Tanker Name Role Phone Rocky Almanzar MD Primary Care Provider [phone] Reason for Visit * Reason Comments Med Refill Encounter Details Date Type Department Care Team (Late Contact Info) Description 11/10/2021 Refill [facility] [address] [place] [address] Jason Romero MD [address] [address] Type 2 diabetes mellitus with other specified complication, with long-term current use of insulin ([facility]) Social History Tobacco Use [...] EDT Office Visit [facility] [address] [place] [phone] Melany Rosales, DO [address] [place] [address] 07/17/2025 2:00 PM EDT Office Visit [facility] Audiology [address] [place] [address] Lottie Lund, AuD [address] [place] [address] 01/05/2026 11:00 AM EST Office Visit [facility] [address] [place] [address] Vivian Macias S, OD [address] [place] [address] documented as of this encounter Visit Diagnoses Diagnosis Type 2 diabetes mellitus with other specified complication, with long-term current use of insulin ([facility]) documented in this encounter Additional Health Concerns Infection Onset Date Last Indicated Resolved Time MRSA 03/30/2021 03/30/2021 Assessment Noted Time A fall risk assessment has been complete d for the patient 10/11/2021 3:35 PM EST documented as of this encounter Care Teams Dip Tanker Relationship Specialty Start Date End Date Rocky Almanzar MD [address] [place] [address] PCP - General 03/18/21 documented as of this encounter
--- OUTSIDE RECORDS SUMMARY | 2025-06-26 11:04 | XMS_ITS | Clinical Summary ---
Author Organization [facility] Address [address] [facility] [address] [place] [address] Phone Care Team Providers Care Production Trainer Name Role Phone Anne Merlos Unavailable Unavailable Conditions or Problems Problem Name Problem Code Onset Date Status Entry Date Provider Comment Standard Description Annotate Immunodeficie ncy due to terminal supervisor therapeutic use of drug 508946911 (SNOMED CT) 01/14 Active 01/14 Rocky Patino MD Drug-induced immunodeficiency Leukopenia 27093073 (SNOMED CT) 01/14 Active 01/14 Rocky Patino MD Leukopenia 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/09 Active 01/09 Echo Mccurdy 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/09 Active 01/09 Echo Mccurdy Acute pulmonary histoplasmosis capsulati Medications Medication Instructions Start Date Stop Date Generic Name [facility] Provider VORICONAZOLE 200 MG TABS Take 1 tablet by mouth once a day voriconazole [id number] Rocky Patino MD MINOCYCLINE HCL 100 MG CAPS 1 capsule by mouth twice a day Take one twice a day for three days then only take 1 once a day minocycline 54423661107 Rocky Patino MD budesonide 3 mg by mouth as needed as directed budesonide Flavio Mack budesonide 3 mg by mouth as needed as directed budesonide Hugh Angel EZETIMIBE 10 MG TABS 1 tablet by mouth once a day ezetimibe 98523381764 Hugh Angel XARELTO 20 MG TABS rivaroxaban 35658783823 [facility] Stanley PRAVASTATIN SODIUM 20 MG TABS 1 tablet by mouth once a day pravastatin 02944590154 [facility] aspirin 81 mg capsule 1 capsule by mouth once a day aspirin [facility] Stanley ITRACONAZOLE 100 MG CAPS Take 2 capsule by mouth twice a day itraconazole 24499892275 Anne Merlos ITRACONAZOLE 100 MG CAPS TAKE TWO CAPSULES BY MOUTH TWICE DAILY itraconazole 69858885655 Rocky Patino MD IPRATROPIUM-ALBU TEROL 0.5-2.5 (3) MG/3ML SOLN ipratropium-albut ph[place]enix 65926435285 Amrita Herminia JARDIANCE 10 MG TABS 1 tablet by mouth once a day empagliflozin 65518205836 Amrita Hope ITRACONAZOLE 100 MG CAPS Take 2 capsule by mouth twice a day itraconazole 56749620664 Rocky Patino MD XARELTO 20 MG TABS rivaroxaban 82780850783 [facility] aspirin 81 mg capsule 1 capsule by mouth once a day aspirin Laiba Sonu budesonide 9 mg by mouth as needed as directed budesonide Laiba Sonu VITAMIN D 25 MCG (1000 UT) TABS 1 tablet by mouth once a day cholecalciferol (vitamin d3) 90388187434 Laiba Sonu JARDIANCE 10 MG TABS 1 tablet by mouth once a day empagliflozin 78826730583 Laiba Sonu EZETIMIBE 10 MG TABS 1 tablet by mouth once a day ezetimibe 58778123914 Laiba Sonu insulin lispro protamine-lispro 100 unit/mL (75-25) subcutaneous susp insulin lispro protamin-lispro Laiba Sonu IPRATROPIUM-ALBU TEROL 0.5-2.5 (3) MG/3ML SOLN ipratropium-albut phoenix 75051351261 Laiba Sonu LEVOTHYROXINE SODIUM 50 MCG TABS 1 tablet by mouth once a day levothyroxine 86205524036 Laiba Sonu METFORMIN HCL 500 MG TABS 1 tablet by mouth once a day metformin 49814610737 Laiba Sonu MIRTAZAPINE 15 MG TABS 1 tablet by mouth once a day mirtazapine 06875020258 Laiba Sonu MYCOPHENOLATE MOFETIL 500 MG TABS 1 tablet by mouth twice a day mycophenolate mofetil 04553101450 Laiba Sonu PRAVASTATIN SODIUM 20 MG TABS 1 tablet by mouth once a day pravastatin 93389833890 Laiba Sonu URSODIOL 500 MG TABS 1 tablet by mouth twice a day ursodiol 45254232280 Laiba Sonu Medications Administered No information available. 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, HEEL EDGE INKER MACHINE FALLRSKASSES yes Fall ris k assessment Lab [...] Rocky Patino MD, [facility] [facility], [address], [place], [address], Pending order New Oral Antibio tic Pending [...] (G2211) G2211 Complex E&M visit add-on (G2211) CPT-70637 CMP [id number] CBC with Differential 2024 CPT-13791 BNP CPT-71999 Itraconazole Level 3 CPT-Cooral Continue oral antibiotics 29/04/13 G2211 Complex E&M visit add-on (G2211) CPT-Cooral Continue oral antibiotics 27/02/11 CPT-37620 CMP [id number] CBC with Differential 2024 CPT-26878 Itraconazole Level 1 CPT-35679 BNP CPT-elizabeth New Oral Antibiotic CPT-63637 CMP [id number] CBC with Differential 2024 CPT-47877 CD4 36735 Fungitell, serum (1-3) D-Glucan Assay 03/07/12 CPT-22001 Urine Culture & Sensitivity [id number], [id number] Urinalysis CPT-cf Fungal Culture & Sensitivity CPT-63695 BNP Vital Signs Date Name Value Unit [...]
--- OUTSIDE RECORDS SUMMARY | 2025-06-26 11:04 | XMS_ITS | Clinical Summary ---
Author Organization [facility] Address [address] [place] [address] Care Team Providers Care Depot Manager Name Role Phone Provider, No Known [...] 08/15/2016 AAA SCREEN ONCE Completed 12/07/2016 Insurance [facility] [place] [address] Care Teams Depot Manager Relationship Specialty Start Date End Date Provider, No Known [facility] [place] [address] PCP - General 01/14/25
--- OUTSIDE RECORDS SUMMARY | 2025-06-26 11:05 | XMS_ITS | Clinical Summary ---
Author Organization [facility] Address [address] [place] [address] Care Team Providers Care Learning Technologies Specialist Name Role Phone Rocky Almanzar MD Primary Care Provider [phone] Allergies Active Allergy Reactions Criticality Noted Date [...] Type Department Care Team Description 05/04/2025 Refill [facility] Endocrinology [address] [place] [phone] Jason Romero MD Type 2 diabetes mellitus with hyperglycemia, with long-term current use of insulin ([facility]) 04/28/2025 Telephone [facility] Endocrinology [address] [place] [address] Jason Romero MD 04/24/2025 Telephone [facility] Diabetes Education [address] [place] [address] Rocky Almanzar MD HCN - [...] Description 07/07/2025 11:40 AM EDT Office Visit [facility] Endocrinology [address] [place] [phone] Melany Rosales, DO [address] [place] [address] 07/17/2025 2:00 PM EDT Office Visit [facility] Audiology [address] [place] [address] Lottie Lund, AuD [address] [place] [address] 01/05/2026 11:00 AM EST Office Visit [facility] [address], [address] [place] [address] Vivian Macias S, OD [address] [place] [address] Health Maintenance Due Date Last [...] A1C 03/17/202509/2025, 05/23/2024, 11/22/2023, Additional history exists [id number] Vaccine (7 - Moderna risk season) 2025 [...] this topic Medical Devices Implanted Type Area Resource Forester Device Identifier Shelf Expiration Date Model / Serial / Lot Roseline Stanleyk Advantage Ci Hifocus 1j Electrode--06/05 Implanted:06/05 by Ky Del Rio MD (Quantity not on file) Cochlear Left: Ear [employer] [id number] / [id number] / Description:Roseline 90K Advant age CI HiFocus 1J electrode--cochlear implant by Dr. Del Rio at [facility] on 06/21/2017, operative note in Epic. LEFT EAR. Roseline ULTRA 3D Cochlear implant REF: [id number] Serial number: [id number] Procedures Procedure Name Priority Date/Time Associated Diagnosis [...] % [facility] Kit Lot Number [id number] [facility] Kit Expiration Date 10/04/26 HEALTHCARE [facility] Blood Venous blood specimen / Unknown 12/16/2024 12:27 PM EST Jason Romero MD POINT OF CARE TEST ENTER/ED IT ORDERABLES Final Result [facility] [address] [place] [address] * COLONOSCOPY (08/03/2017) Anatomical Region Laterality Modality Endoscopy Narrative 08/03/2017 Ordered by an unspecified provider. 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
--- OUTSIDE RECORDS SUMMARY | 2025-06-26 11:05 | XMS_ITS | Encounter Summary ---
Author Organization [facility] Address [address] [place] [address] Care Team Providers Care Chip Machine Operator Name Role Phone Rocky Almanzar MD Primary Care Provider [phone] Encounter Details Date Type Department Care Team (Late st Contact Info) Description 04/28/2025 Telephone [facility] Endocrinology [address] [place] [address] Jason Romero MD [address] [place] [address] Social History Tobacco Use Types [...] with Derek's phone number for refills from [employer]. Pt's was on the phone and was able to take appropriate notes. 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 No other questions at this time. * Telephone Encounter - MARYLIN DALAL - 04/28/2025 12:05 PM EDT Pt requesting a call back regarding his Leroy system not seeming to be working. documented in this encounter Plan of Treatment Upcoming Encounters Date Type Department Care Team (Late st Contact Info) Description 07/07/2025 11:40 AM EDT Office Visit [facility] Endocrinology [address] [place] [address] Melany Rosales, DO [address] [place] [address] 07/17/2025 2:00 PM EDT Office Visit [facility] Audiology [address] [place] [address] Lottie Lund, AuD [address] [place] [address] 01/05/2026 11:00 AM EST Office Visit [facility] Center [address], [address] [place] [address] Vivian Macias S, OD [address] [place] [address] documented as of this encounter [...] documented as of this encounter Care Teams Chip Machine Operator Relationship Specialty Start Date End Date Rocky Almanzar MD [address] [place] [address] PCP - General 03/18/21 documented as of this encounter
--- OUTSIDE RECORDS SUMMARY | 2025-06-26 11:05 | XMS_ITS | Encounter Summary ---
Author Organization [facility] Address [address] [place] [address] Care Team Providers Care Handkerchief Sample Clerk Name Role Phone Rocky Almanzar MD Primary Care Provider [phone] Reason for Visit * Reason Onset Date Comments HCN - Patient Message 04/24/2025 Encounter Details Date Type Department Care Team (Late st Contact Info) Description 04/24/2025 [facility] [address] [place] [address] Rocky Almanzar MD [address] [place] [address] HCN - Patient Message Social History Tobacco [...] refill. Please contact patient Best contact number: [phone] (home) Optimal time of day to reach caller: Anytime Additional comments/information from caller: n/a Note: Please do not reply to this message. Follow-up communication and further actions as a result of this message need to be communicated with the patient directly, if the patient is not active onMyChart. If the patient is active on MyChart, they will receive notification of the communication/outcome via [employer]. documented in this encounter Plan of Treatment Upcoming Encounters Date Type Department Care Team (Late st Contact Info) Description 07/07/2025 11:40 AM EDT [facility] End[facility]ology [address] [place] [address] Melany Rosales, DO [address] [place] [address] 07/17/2025 2:00 PM EDT Office Visit [facility] Audiology [address] [place] [address] Lottie Lund, AuD [address] [place] [address] 01/05/2026 11:00 AM EST Office Visit [facility] [place] [address], [address] [place] [address] Vivian Macias S, OD [address] [place] [address] documented as of this encounter [...] documented as of this encounter Care Teams Handkerchief Sample Clerk Relationship Specialty Start Date End Date Rocky Almanzar MD [address] [place] [address] PCP - General 03/18/21 documented as of this encounter
--- OUTSIDE RECORDS SUMMARY | 2025-06-26 11:05 | XMS_ITS | Patient Health Record ---
Author Organization [facility] Address [address] [facility] 36 [facility] [address] [place] [id number] Care Team Providers Care Environmental Services Tech Name Role Phone Shauna Almanzar Primary Care Provider Emir Berger Unavailable [phone] Trinity Medeiros Unavailable [phone] Doretha Burns Unavailable [phone] Allergies Allergen (clinical drug ingredient) Drug/Non Drug Allergy documented on EMR Reaction Allergy Type Onset Date Status cephalexin Cephalexin Unknown Drug Allergy Activ e Results Component Value Reference Range Notes P-TSH reflex to FT4 Reviewed date:06/10/2025 08:30:05 AM Interpretation:Normal Performing Lab: Notes/Report: Test performed by [email or web address] [place] [address] , [address], [place] [address] Kristian Trevino MD, [employer] Maker [employer] CLIA: [id number] TSH reflex to FT4 3.44 0.43-5.25 mU/L P-Vitamin D 25-Hydroxy Reviewed date:06/10/2025 08:30:05 AM Interpretation:Normal Performing Lab: Notes/Report: Test performed by [email or web address] [place] [address] [address], [place] [address] Kristian Trevino MD, [employer] Maker [employer] CLIA: [id number] Vitamin D 25-Hydroxy 57.8 30.0-100.0 ng/mL Interpretation [...] 229 Performing Lab: Notes/Report: Test performed by [email or web address] [employer] [address] [place] [address] , [address], [place] [address] Kristian Trevino MD, Die Maker [employer] CLIA: [id number] Sodium 138 135-145 mmol/L Potassium 4.3 3.5-5.3 [...] 370 74-100 mg/dl CA 9.0 8.4-10.2 mg/dl Glycohemoglobin A1c (in hous e) Reviewed date:04/03/2025 09:15:19 AM Interpretation:11 Performing Lab: Notes/Report: 11 glycohemoglobin 11.1% 5 - 6.5 % P-Comprehensive Metabolic Pa tarah (CMP) Reviewed date:06/04/2025 01:02:08 PM Interpretation:gluc 347, bun 29, Ca 8.5, prot 5.5 Performing Lab: Notes/Report: Test performed by [email or web address] [employer] [address] [place] [address] , [address], [place] [address] Kristian Trevino MD, [employer] Maker [employer] CLIA: [id number] Sodium 139 135-145 mmol/L Potassium 3.7 3.5-5.3 [...] 695 Performing Lab: Notes/Report: Test performed by [email or web address] [place] [address] , [address], [place] [address] Kristian Trevino MD, [employer] Maker [employer] CLIA: [id number] Albumin/Creatinine Ratio, Urine 695 0-30 ug/mg Microalbumin, Urine, Random 16.4 Creatinine, Urine 23.6 H-BMP Reviewed date:09/19/2024 01:07:51 PM Interpretation:ordered by [...] 6.5 % CBC Venipuncture (in house) Reviewed date:06/10/2025 08:30:05 [...] 232 Performing Lab: Notes/Report: Test performed by [email or web address] [place] [address] , [address], [place] [address] Kristian Trevino MD, [employer] Maker [employer] CLIA: [id number] Sodium 141 135-145 mmol/L Potassium 3.0 3.5-5.3 [...] Interpretation:23 Performing Lab: Notes/Report: Test performed by [email or web address] [place] [address] , [address], [place] [id number] Kristian Trevino MD, [employer] Maker [employer] CLIA: [id number] Creatine Kinase 23 20-200 U/L E-Z-Ziiorqxb Protein (CRP) Reviewed date:06/10/2025 08:30:05 AM Interpretation:4.00 Performing Lab: Notes/Report: Test performed by [email or web address] [place] [address] , [address], [place] [address] Kristian Trevino MD, Die Maker [employer] CLIA: [id number] C-Reactive Protein (CRP) 4.00 <0.50 mg/dL P-Sed Rate (ESR) Reviewed date:06/10/2025 08:30:05 AM Interpretation:31 Performing Lab: Notes/Report: Test performed by [email or web address] [place] [address] [place] [address] , [address], [place] [address] Kristian Trevino MD, Die Maker [employer] CLIA: [id number] Erythrocyte Sedimentation Rate (ESR), Automated 31 <21 mm/hr Rapid Strep- Inhouse Reviewed date:09/16/2024 01:23:25 PM Interpretation:Positive Performing Lab: Notes/Report: Positive strep test Pos H-CBC Reviewed date:11/04/2024 10:00:59 AM Interpretation: Performing [...] Notes/Report: chronic findings, nothing new H-CBC Reviewed date:08/26/2024 02:54:53 PM Interpretation: Performing [...] AM Interpretation:cl 109, co2 21, bun 25, [id number] Performing Lab: Notes/Report: NA 137 136-145 mmol/L [...] every 6 hrs Active FreeStyle Leroy 3 [place] - as directed 05/12/2025 Not-Taking Levothyroxine Sodium [...] W/U Status Risk Notes Problem Essential hypertension (60413155) Essential (primary) hypertension (I10) Active confirmed Problem Vitamin D deficiency (48340401) Vitamin D deficiency (E55.9) Active confirmed Problem Essential hypertension (53679966) Essential hypertension (I10) Active confirmed Problem Screening for malignant neoplasm of prostate (356323135) Prostate cancer screening (Z12.5) Active confirmed Problem Anorexia (73598852) Anorexia (R63.0) Active con firmed Problem Paroxysmal atrial fibrillation (875660838) Paroxysmal atrial fibrillation (I48.0) Active confirmed Problem Hyperglycemia due to type 2 diabetes mellitus (646909440825549) Type 2 diabetes mellitus with hyperglycemia (E11.65) Active confirmed Problem Mixed hyperlipidemia (685296154) Mixed hyperlipidemia (E78.2) Active confirmed Problem Hyperlipidemia (55297252) Hyperlipidemia, unspecified (E78.5) Active confirmed Problem Hereditary hemochromatosis (09351684) 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) Active confirmed Problem Chronic respiratory failure (92276964) Chronic respiratory failure with hypoxia (J96.11) Active confirmed Problem Autoimmune hepatitis (982581555) Autoimmune hepatitis (K75.4) Active confirmed Problem Cholelithiasis without obstruction (54065070) Calculus of gallbladder without cholecystitis without obstruction (K80.20) Active confirmed Problem Cochlear implant status (Z96.21) Active confirmed Problem Male erectile disorder (507195983) Male erectile disorder (N52.9) Active confirmed Problem Long-term current use of insulin (071311355) watermaster (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 (Z79.4) Active confirmed Problem Type II diabetes mellitus without complication (273167861) Type 2 diabetes mellitus without complication (E11.9) Active confirmed Problem Acquired hypothyroidism (523314441) Acquired hypothyroidism (E03.9) Active confirmed Problem Pulmonary fibrosis (04390261) Pulmonary fibrosis (J84.10) Active confirmed Problem Chronic fatigue syndrome (00384191) Chronic fatigue (R53.82) Active confirmed Problem COPD - Chronic obstructive pulmonary disease (17739261) Chronic obstructive pulmonary disease, unspecified COPD type (J44.9) Active confirmed Problem Pneumonia (841698476) Pneumonia of right lower lobe due to infectious organism (J18.9) Active confirmed Problem Hearing loss (91186564) Hearing loss, bilateral (H91.93) Active confirmed Problem Disorder of adrenal gland (45776085) 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) Active confirmed Problem Neutropenia (485200609) Neutropenia, unspecified type (D70.9) Active confirmed Problem Interstitial lung disease (803593920) Interstitial lung disease (J84.9) Active confirmed Problem Seasonal allergic rhinitis (809480652) Seasonal allergic rhinitis, unspecified allergic rhinitis trigger (J30.2) Active confirmed Problem Granulocytopenia (968008516) 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 confirmed Problem Systemic lupus erythematosus (46500849) Lupus (systemic lupus erythematosus) (M32.9) Active confirmed Problem Cardiac arrhythmia (851193511) Cardiac arrhythmia, unspecified cardiac arrhythmia type (I49.9) Active confirmed Problem Malnutrition, calorie (861492162) Caloric malnutrition (E46) Active confirmed Problem Benign prostatic hypertrophy without outflow obstruction (137974503) BPH without urinary obstruction (N40.0) Active confirmed Problem Allergic rhinitis caused by pollen (74360164) Acute seasonal allergic rhinitis due to pollen (J30.1) Active confirmed Problem Sensorineural hearing loss, bilateral (408358170) Sensorineural hearing loss (SNHL) of both ears (H90.3) Active confirmed Problem Cholestatic hepatitis (36097517) Cholestatic hepatitis (K75.89) Active confirmed Problem Skin sensation disturbance (26628674) Sensitive skin (R20.3) Active confirmed Problem Dilatation of aorta (81577068) Dilatation of aorta (I77.819) Active confirmed Problem Tomography - chest abnormal (588585007) Abnormal CT scan, chest (R93.89) Active confirmed Problem Left atrial dilatation (658883007) Left atrial dilatation (I51.7) Active confirmed Problem Chronic vascular insufficiency of intestine (809090840) 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 Problem Protein malnutrition (24271016) Protein malnutrition (E46) Active confirmed Vital Signs Heart Rate 64 /min 06/09/2025 Blood pressure diastolic 68 mm Hg 06/09/2025 Height 65 in 06/09/2025 Blood pressure systolic 112 mm Hg 06/09/2025 Weight 130 lbs 06/09/2025 BMI 21.63 kg/m2 06/09/2025 Encounters Encounter Location Date Provider Diagnosis [facility] [address] [id number] 09/05/2024 Shauna Almanzar Pneumonia of left lo wer lobe due to infectious organism J18.9 ; Interstitial lung disease J84.9 ; Chronic respiratory failure with hypoxia J96.11 ; 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 ; Autoimmune hepatitis K75.4 ; Protein malnutrition E46 and Caloric malnutrition E46 [facility] [address] [id number] 09/16/2024 Trinity Medeiros Strep pharyngitis J0 2.0 and Oral candidiasis B37.0 [facility] [address] [id number] 10/09/2024 Shauna Almanzar Lesion of adrenal gl and E27.9 ; Essential hypertension I10 ; Type 2 diabetes mellitus without complication E11.9 ; Acquired hypothyroidism E03.9 ; Hearing loss, bilateral H91.93 ; Cochlear implant status Z96.21 ; Protein malnutrition E46 ; Chronic obstructive pulmonary disease, unspecified COPD type J44.9 and Encounter for immunization Z23 [facility] [address] [place], [place] [id number] 11/03/2024 Emir [place] Acute cough R05.1 [facility] [address] [id number] 11/07/2024 Shauna Almanzar Type 2 diabetes aquilino itus without complication E11.9 ; Acquired hypothyroidism E03.9 and Hereditary hemochromatosis E83.110 [facility] [address] [place], [place] [id number] 01/09/2025 Shauna Almanzar Type 2 diabetes aquilino itus without complication E11.9 ; Hereditary hemochromatosis E83.110 ; Cochlear implant status Z96.21 ; Chronic obstructive pulmonary disease, unspecified COPD type J44.9 ; Essential (primary) hypertension I10 ; Protein malnutrition E46 and Gross hematuria R31.0 [facility] [address] [place], [place] [id number] 01/15/2025 Shauna Almanzar Interstitial lung disease J84.9 ; 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 ; Autoimmune hepatitis K75.4 ; Protein malnutrition E46 ; Cochlear implant status Z96.21 ; Type 2 diabetes mellitus without complication E11.9 and Hematuria R31.9 [facility] [address] [id number] 02/11/2025 Emir Berger Type 2 diabetes aquilino itus with hyperglycemia E11.65 ; watermaster (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.4 ; Gross hematuria R31.0 and Body mass index (BMI) of 19.0 to 19.9 in adult Z68.1 [facility] [address] [id number] 03/13/2025 Doretha Burns Drug interaction Z78 .9 [facility] [address] [id number] 04/02/2025 Shauna Almanzar Type 2 diabetes aquilino itus without complication E11.9 ; 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 ; Cholestatic hepatitis K75.89 ; senior living (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.4 ; 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 ; Generalized weakness R53.1 and BMI 20.0-20.9, adult Z68.20 [facility] [address] [place] [id number] 04/30/2025 Shauna Almanzar Type 2 diabetes aquilino itus with hyperglycemia E11.65 ; watermaster (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.4 ; Adrenal [...] adult Z68.22 and Cochlear implant status Z96.21 [facility] [address] [place], [place] [id number] 06/09/2025 Emir [place] Generalized weakness R53.1 ; Anorexia R63.0 and Vitamin D deficiency E55.9 [facility] [address] [place], [place] [id number] 05/12/2025 J Rogerio Almanzar [facility] [address] [place], [place] [id number] 06/10/2025 J Rogerio Almanzar [facility] [address] [place], [place] [id number] 09/01/2024 J Rogerio Yohan [facility] [address] [place], [place] [id number] 09/04/2024 J Rogerio Almanzar [facility] [address] [place] [id number] 09/08/2024 J Rogerio Almanzar [facility] [address] [place] [id number] 09/10/2024 J Rogerio Almanzar [facility] [address] [place] [id number] 09/15/2024 J Rogerio Yohan [facility] [address] [place] [id number] 09/16/2024 J Rogerio Almanzar [facility] [address] [place] [id number] 09/25/2024 J Rogerio Yohan [facility] [address] [place] [id number] 11/03/2024 Emir [place] [facility] [address] [place] [id number] 01/12/2025 Shauna Almanzar [facility] [address] [place] [id number] 05/12/2025 Shauna Almanzar [facility] [address] [place] [id number] 06/04/2025 Shauna Almanzar [facility] [address] [place] [id number] 06/10/2025 Emir Berger [facility] [address] [place], [place] [id number] 06/23/2025 Shauna Almanzar Colon cancer screeni Z12.11 Assessments Encounter Date Diagnosis (ICD Code) [...] mellitus with hyperglycemia (ICD-10 - E11.65) 04/30/2025 watermaster (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 (ICD-10 - Z79.4) 06/09/2025 Anorexia (ICD-10 - R63.0) Boost or Ensure 1 can bid 06/09/2025 Generalized weakness (ICD-10 - R53.1) 06/23/2025 Colon cancer screening (ICD-10 - Z12.11) 01/09/2025 Cochlear implant status (ICD-10 - Z96.21) 06/09/2025 Vitamin D deficiency (ICD-10 - E55.9) [...] Essential (primary) hypertension (ICD-10 - I10) 04/02/2025 watermaster (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 (ICD-10 - Z79.4) [...] Test Test Name Order Date Cologuard 06/23/2025 H-TSH 11/07/2024 Next Appt Details Provider Name:Shauna Beatty [facility], 07/03/2025 11:45:00 AM, [address] [facility] 36 [facility], [facility], [place], [id number], Provider Name:Shauna Beatty [facility], 07/06/2025 03:34:00 PM, [facility], [address], [place], [id number], Insurance Providers Payer Name Payer Address Payer Phone Subscriber Number Group Number Insured Name Patient Relationship to Insured Coverage Start Date Coverage End Date [facility] [address] [address] [place] [address] [phone] [id number] HERMILA GOLDEN Self - patient is the insured Medical (General) History Medical History History ICD Code Seasonal Allergies Kidney Stones Steatohepatitis hemachromatosis,(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 Smalls and Dr. Thakur Atrial dysrrhythmia, see [facility] notes 2012 hearing loss 2013, hearing aids Impaired fasting glucose Gets yearly eye exams, [facility] Questionable Dx Lupus erythematosus 2016 Granuloma annulare [...] Scalp Infection 02/23/2016 tachycardia 02/2012 chest pains s fall 1984
--- OUTSIDE RECORDS SUMMARY | 2025-06-26 11:05 | XMS_ITS | Encounter Summary ---
Author Organization Healthcare Address [address] [place] [address] Care Team Providers Care Clerk Analyst Name Role Phone Rocky Almanzar MD Primary Care Provider [phone] Reason for Visit * Reason Comments Med Refill Encounter Details Date Type Department Care Team (Late st Contact Info) Description 05/04/2025 Refill [facility] Endocr[facility]ology [address] [place] [address] Jason Romero MD [address] [address] Type 2 diabetes mellitus with hyperglycemia, with long-term current use of insulin ([facility]) Social History Tobacco Use Types [...] Description 07/07/2025 11:40 AM EDT Office Visit [facility] [address] [place] [phone] Melany Rosales, DO [address] [place] [phone] 07/17/2025 2:00 PM EDT Office Visit [facility] Audiology [address] [place] [address] Lottie Lund, AuD [address] [place] [address] 01/05/2026 11:00 AM EST Office Visit [facility] [address], [address] [place] [address] Vivian Macias S, OD [address] [place] [address] documented as of this encounter Visit Diagnoses Diagnosis Type 2 diabetes mellitus with hyperglycemia, with long-term current use of insulin ([facility]) documented in this encounter Additional Health Concerns Infection Onset Date Last Indicated Resolved Time MRSA 03/30/2021 03/30/2021 Assessment Noted Time A fall risk assessment has been complete d for the patient 12/16/2024 12:16 PM EST A Body Mass Index follow-up plan has been documented for the patient 01/13/2025 8:11 PM EDT documented as of this encounter Care Teams Clerk Analyst Relationship Specialty Start Date End Date Rocky Almanzar MD [address] [place] [address] PCP - General 03/18/21 documented as of this encounter
--- OUTSIDE RECORDS SUMMARY | 2025-06-26 11:05 | XMS_ITS | Encounter Summary ---
Author Organization Healthcare Address [address] [place] [address] Care Team Providers Care Turner Machine Name Role Phone Rocky Almanzar MD Primary Care Provider [phone] Reason for Visit * Reason Comments Med Refill Encounter Details Date Type Department Care Team (Late Contact Info) Description 05/20/2021 Refill [facility] Endocrinology [address] [place] [address] Jason Romero MD [address] [address] Social History Tobacco Use Types [...] Description 07/07/2025 11:40 AM EDT [facility] [address] [place] [address] Melany Rosales, DO [address] [place] [address] 07/17/2025 2:00 PM EDT Office Visit [facility] Audiology [address] [place] [address] Lottie Lund, AuD [address] [place] [address] 01/05/2026 11:00 AM EST Office Visit [facility] [address], [address] [place] [address] Vivian Macias, OD [address] [place] [address] documented as of this encounter Visit Diagnoses Not on filedocumented in this encounter Additional Health Concerns Infection Onset Date Last Indicated Resolved Time MRSA 03/30/2021 03/30/2021 documented as of this encounter Care Teams Turner Machine Relationship Specialty Start Date End Date Rocky Almanzar MD [address] [place] [address] PCP - General 03/18/21 documented as of this encounter
[2025-06-26 11:19] LABS: PHA INR Fingerstick 6.8 (0.9-1.1)
== END 2025-06-26 11:21 ==
LOC: ACC 11:02
PROVIDERS: PCP Family Medicine; Visit Provider Nurse Practitioner
DX: I48.0 Paroxysmal atrial fibrillation (principal)
CPT/HCPCS: 85610; 99211; G0463

== ENCOUNTER 2025-07-01 11:08 | Outpatient (CLI) | payer MEDICARE, SELFPAY ==
--- OUTSIDE RECORDS SUMMARY | 2025-04-30 10:00 | XMS_ITS ---
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) Referral [facility] Referring Provider First Name Shauna Beatty Referring [...] W/U Status Risk Notes Problem Cardiac arrhythmia (825563828) Cardiac arrhythmia, unspecified cardiac arrhythmia type (I49.9) Active confirmed Problem Chronic vascular insufficiency of intestine (516494058) 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 [address] [phone] 04/30/2025 Shauna Almanzar Type 2 diabetes aquilino itus with hyperglycemia E11.65 ; terminal carman (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.4 ; Adrenal [...] mellitus with hyperglycemia (ICD-10 - E11.65) 04/30/2025 assisted (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 (ICD-10 - [...] Name:Shauna Merida , 07/03/2025 11:45:00 AM, 1210 [facility] 36 [facility], [address], [place], [place], [id number], Provider Name:Shauna Merida , 07/06/2025 03:34:00 PM, 1210 [facility] 36 [facility], [address], [place], [place], [address], Progress Notes * HERMILA GOLDENOB: [birth year] (75 yo M)Acc No.[id number]:04/30/2025 Progress Notes Patient: HERMILA BUCION Provider: Shauna Almanzar M.D. :1950 A ge:75 Y S ex:Male Date:04/30/2025 Address:[address] [place] [address] [address], [place], [id number] Subjective: * Chief Complaints: * 1 . [...] portal: [email or web address], type 2 diabetes, followed [facility] [...] artery stenosis - K55.1 1 2. B [place] 22.0-22.9, adult - Z68.22 1 3. C [...] * Images: Billing Information: * Visit Code: 72401 Office Visit, Est Pt., Level 4. * Procedure Codes: G2211 Complex e/m visit add on. 1036F TOBACCO NON-USER. G8420 BMI<30 AND >=22 CALC & DOCU. G8950 PREHTN/HTN BP DOC INDCD F/U DOC. G8752 MOST RECENT SYSTOLIC BP < 140MM HG. G8754 MOST RECENT DIASTOLIC BP < 90MM HG. * Electronic signature of Shauna Almanzar MD on 07/01/2025 at 11:15 AM EDT Sign off status: Pending * Provider: Shauna Almanzar M.D. Date: 0 04/30/2025 Generated for Printi ng/Faxing/eTransmitting on: 0 07/01/2025 11:15 AM EDT History and Physical Notes * [...]
--- OUTSIDE RECORDS SUMMARY | 2025-06-09 06:00 | XMS_ITS ---
Author Organization [facility] Address 1210 [facility] [address] [id number] Care Team Providers Care Airport Ramp Attendant Name Role Phone Shauna Almanzar Primary Care Provider [phone] Emir Berger Unavailable [phone] Allergies Allergen (clinical drug ingredient) Drug/Non Drug [...] 232 Performing Lab: Notes/Report: Test performed by [employer] [facility]0 [facility] , [address], [place] [address] Kristian Trevino MD, Solar Energy Advisor CLIA: [id number] Sodium 141 135-145 mmol/L Potassium 3.0 3.5-5.3 [...] Interpretation:23 Performing Lab: Notes/Report: Test performed by [employer] [address] , [facility], [place] [address] Kristian Trevino MD, Solar Energy Advisor CLIA: [id number] Creatine Kinase 23 20-200 U/L O-G-Idegzplg Protein (CRP) Reviewed date:06/10/2025 08:30:05 AM Interpretation:4.00 Performing Lab: Notes/Report: Test performed by [employer] [address] , [address], [place] [address] Kristian Trevino MD, Solar Energy Advisor CLIA: [id number] C-Reactive Protein (CRP) 4.00 <0.50 mg/dL P-Sed Rate (ESR) Reviewed date:06/10/2025 08:30:05 AM Interpretation:31 Performing Lab: Notes/Report: Test performed by [employer] [address] [place] [address] , [address], [place] [address] Kristian Trevino MD, Solar Energy Advisor CLIA: [id number] Erythrocyte Sedimentation Ra te (ESR), Automated 31 <21 mm/hr P-TSH reflex to FT4 Reviewed date:06/10/2025 08:30:05 AM Interpretation:Normal Performing Lab: Notes/Report: Test performed by [employer] [address] [place] [address] , [address], [place] [address] Kristian Trevino MD, Solar Energy Advisor CLIA: [id number] TSH reflex to FT4 3.44 0.43-5.25 mU/L P-Vitamin D 25-Hydroxy Reviewed date:06/10/2025 08:30:05 AM Interpretation:Normal Performing Lab: Notes/Report: Test performed by [employer] [address] [place] [address] , [address], [place] [address] Kristian Trevino MD, Solar Energy Advisor CLIA: [id number] Vitamin D 25-Hydroxy 57.8 30.0-100.0 ng/mL Interpretation [...] Duration: 90 days Active FreeStyle Leroy 3 [place] - as directed 05/12/2025 Not-Taking Levothyroxine Sodium [...] 06/09/2025 Encounters Encounter Location Date Provider Diagnosis [facility] [address] [place] [address] 36 [facility] [address] [place]aez [id number] 06/09/2025 Emir Berger Generalized weakness R53.1 ; [...] Provider Name:Shauna Merida , 07/03/2025 11:45:00 AM, [address] [place] [address], [facility] [address], [place]ae[place], [id number], Provider Name:Shauna Merida , 07/06/2025 03:34:00 PM, [address] [place] [address], [facility] [address], [place] Baez, [id number], Progress Notes * HERMILA GOLDENOB: [birth year] (75 yo M)Acc No.[id number]:06/09/2025 Progress Notes Patient: HERMILA BUCIO BENJIE Provider: Jaden Berger M.D. :1950 A ge:75 Y S ex:Male Date:06/09/2025 Address:[address] [place] [address], [facility] Pcp:Shauna Almanzar Subjective: * Chief Complaints: [...] mouth daily , Not-Taking FreeStyle Leroy 3 [place] - Device as directed , Not-Taking FreeStyle [...] AM EDT > See phone encounter ?LAB: F-W-Xziypoex Protein (CRP) (Collection Date & Time - [...] G 2211 Complex e/[place], [address] CBC WITH AUTO DIFF, 1036F TOBACCO NON-USER, G8783 BP SCR PRFRM RCMDD DEFIND SCR INTVL, G8752 MOST RECENT SYSTOLIC BP < 140MM HG, G8754 MOST RECENT DIASTOLIC BP < 90MM HG * Follow Up: v ia phone to report test results * Images: Billing Information: * Visit Code: 24257 Office Visit, Est Pt., Level 4. * Procedure Codes: G2211 Complex e/[place]. [address] CBC WITH AUTO DIFF. 1036F TOBACCO NON-USER. G8783 BP SCR PRFRM RCMDD DEFIND SCR INTVL. G8752 MOST RECENT SYSTOLIC BP < 140MM HG. G8754 MOST RECENT DIASTOLIC BP < 90MM HG. * Electronic signature of Elidia Berger MD on 07/01/2025 at 11:16 AM EDT Sign off status: Pending * Provider: Jaden Berger M.D. Date: 0 06/09/2025 Generated for Marissa mendoza/Rei/Johnsmitting on: 0 07/01/2025 11:16 AM EDT History and Physical Notes * [...]
--- OUTSIDE RECORDS SUMMARY | 2025-06-15 11:23 | XMS_ITS ---
Author Organization [facility] Address [address] [place] [address] [place] [address] Phone Care Team Providers Care Fitness Sales Consultant Name Role Phone Sukumar CUEVAS, Rocky Griggs [ ] Conditions or Problems No information available. Medications Medication Instructions Start Date Stop Date Generic Name [facility] Provider MINOCYCLINE HCL 100 MG CAPS 1 capsule by mouth twice a day Take one twice a day for three days then only take 1 once a day 1 minocycline [id number] Rocky Patino MD budesonide 3 mg by [...] Patino MD, [facility]0 [facility], [address], [place], [address], Pending order New Oral Antibio tic Pending [...]
--- OUTSIDE RECORDS SUMMARY | 2025-06-23 07:29 | XMS_ITS ---
Author Organization [facility] Address [address] [place] [phone] Care Team Providers Care Glass Setter Name Role Phone Shauna Almanzar Primary Care Provider REASON FOR VISIT due col Encounters Encounter Location Date Provider Diagnosis [facility] [address] [place] [id number] 06/23/2025 Shauna Almanzar Colon cancer screening Z12.11 Assessments Encounter Date Diagnosis (ICD Code) Assessment Notes Treatment Notes Treatment Clinical Notes Section Notes 06/23/2025 Colon cancer screening (ICD-10 - Z12.11) Plan Of Treatment Pending Test Test Name Order Date Cologuard 06/23/2025 Next Appt Details Provider Name:Shauna Merida er, 07/03/2025 11:45:00 AM, [address], [place], [phone], Provider Name:Shauna Merida er, 07/06/2025 03:34:00 PM, [address], [address], [place], [phone], Progress Notes * HERMILA GOLDENOB: [birth year] (75 yo M)Acc No.[id number]:06/23/2025 Patient: Daniele SALASHERMILA :1950 A ge:75 Y S ex:Male Address:[address] [place] [address], [place] [address] Subjective: * Chief Complaints: * D ue col * Medical History: * Surgical History: * Hospitalization/Major Diagno stic Procedure: * Medications: Objective: * Vitals: * Physical Examination: Assessment: * Assessment: 1. C endy cancer screening - Z12.11 (Primary) Plan: * Treatment: * Procedure Codes: * true * Date: Generated for Marissa mendoza/Rei/Jeremiah on: 0 07/01/2025 11:15 AM EDT
--- OUTSIDE RECORDS SUMMARY | 2025-07-01 11:15 | XMS_ITS | Encounter Summary ---
Author Organization Healthcare Address [address] [place] [address] Care Team Providers Care Bioinformatics Specialist Name Role Phone Rocky Almanzar MD Primary Care Provider [phone] Reason for Visit * Reason Comments Med Refill Encounter Details Date Type Department Care Team (Late st Contact Info) Description 06/30/2025 Refill [facility] Endocrinology [address] [place] [address] Jason Romero MD [address] [address] Social History Tobacco Use Types [...] encounter Miscellaneous Notes * Telephone Encounter - Melany Rosales DO - 07/01/2025 9:37 AM EDT We can hold off until he sees me next week. Thanks! * Telephone Encounter - Destini Estrada - 06/30/2025 11:52 AM EDT Refill request does not meet protocol. Sending to clinic for review. Additional info: Clarification required: last clinic note shows 28 units. documented in this encounter Plan of Treatment Upcoming Encounters Date Type Department Care Team (Late st Contact Info) Description 07/07/2025 11:40 AM EDT Office Visit [facility] Endocrinology [address] [place] [phone] Melany Rosales, DO [address] [place] [address] 07/17/2025 2:00 PM EDT Office Visit [facility] Audiology [address], [address] [place] [address] Lottie Lund, AuD [address] [place] [address] 01/05/2026 11:00 AM EST Office Visit [facility] [address] [place] [address] Vivian Macias S, OD [address] [place] [address] documented as of this encounter [...] documented as of this encounter Care Teams Bioinformatics Specialist Relationship Specialty Start Date End Date Rocky Almanzar MD [address] [place] [address] PCP - General 03/18/21 documented as of this encounter
--- OUTSIDE RECORDS SUMMARY | 2025-07-01 11:15 | XMS_ITS | Clinical Summary ---
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 922645499 (SNOMED CT) 01/14 Active 01/14 Rocky Patino MD Drug-induced immunodeficiency Leukopenia 19578776 (SNOMED CT) 01/14 Active 01/14 Rocky Patino MD Leukopenia 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 01/09 Echo Mccurdy 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/09 Active 01/09 Echo Mccurdy Acute pulmonary histoplasmosis capsulati Medications Medication Instructions Start Date Stop Date Generic Name [facility] Provider VORICONAZOLE 200 MG TABS Take 1 tablet by mouth once a day voriconazole 27258456632 Rocky Patino MD MINOCYCLINE HCL 100 MG CAPS 1 capsule by mouth twice a day Take one twice a day for three days then only take 1 once a day minocycline 61443941107 Rocky Patino MD budesonide 3 mg by mouth as needed as directed budesonide Flavio Mack budesonide 3 mg by mouth as needed as directed budesonide Hugh Angel EZETIMIBE 10 MG TABS 1 tablet by mouth once a day ezetimibe 89063104301 Hugh Angel XARELTO 20 MG TABS rivaroxaban 85744517608 [facility] PRAVASTATIN SODIUM 20 MG TABS 1 tablet by mouth once a day pravastatin 54227967636 [facility] aspirin 81 mg capsule 1 capsule by mouth once a day aspirin [facility] ITRACONAZOLE 100 MG CAPS Take 2 capsule by mouth twice a day itraconazole 83176870258 Anne Merlos ITRACONAZOLE 100 MG CAPS TAKE TWO CAPSULES BY MOUTH TWICE DAILY itraconazole 96113550485 Rocky Patino MD IPRATROPIUM-ALBU TEROL 0.5-2.5 (3) MG/3ML SOLN ipratropium-albut [place] 95308654388 Amrita Herminia JARDIANCE 10 MG TABS 1 tablet by mouth once a day empagliflozin 14991334361 Amrita Hope ITRACONAZOLE 100 MG CAPS Take 2 capsule by mouth twice a day itraconazole 89958761189 Rocky Patino MD XARELTO 20 MG TABS rivaroxaban 87449981211 [facility] aspirin 81 mg capsule 1 capsule by mouth once a day aspirin Laiba Sonu budesonide 9 mg by mouth as needed as directed budesonide Laiba Sonu VITAMIN D 25 MCG (1000 UT) TABS 1 tablet by mouth once a day cholecalciferol (vitamin d3) 65248406648 Laiba Sonu JARDIANCE 10 MG TABS 1 tablet by mouth once a day empagliflozin 68743363522 Laiba Sonu EZETIMIBE 10 MG TABS 1 tablet by mouth once a day ezetimibe 34081257373 Laiba Sonu insulin lispro protamine-lispro 100 unit/mL (75-25) subcutaneous susp insulin lispro protamin-lispro Laiba Sonu IPRATROPIUM-ALBU TEROL 0.5-2.5 (3) MG/3ML SOLN ipratropium-albut [place] 78405894669 Laiba Sonu LEVOTHYROXINE SODIUM 50 MCG TABS 1 tablet by mouth once a day levothyroxine 88900004436 Laiba Sonu METFORMIN HCL 500 MG TABS 1 tablet by mouth once a day metformin 05673362911 Laiba Sonu MIRTAZAPINE 15 MG TABS 1 tablet by mouth once a day mirtazapine 69113423814 Laiba Sonu MYCOPHENOLATE MOFETIL 500 MG TABS 1 tablet by mouth twice a day mycophenolate mofetil 28132159631 Laiba Sonu PRAVASTATIN SODIUM 20 MG TABS 1 tablet by mouth once a day pravastatin 42868410064 Laiba Sonu URSODIOL 500 MG TABS 1 tablet by mouth twice a day ursodiol 48745171755 Laiba Sonu Medications Administered No information available. 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, MANAGEMENT AIDE FALLRSKASSES yes Fall ris k assessment Lab [...] Detail Appointment 11:00 AM Rocky Patino MD, [facility], [address], [place], [address], Pending order New Oral Antibio tic Pending [...] (G2211) G2211 Complex E&M visit add-on (G2211) CPT-00400 CMP [id number] CBC with Differential 2024 CPT-84499 BNP CPT-89097 Itraconazole Level 3 CPT-Cooral Continue oral antibiotics 29/04/13 G2211 Complex E&M visit add-on (G2211) CPT-Cooral Continue oral antibiotics 27/02/11 CPT-73575 CMP [id number] CBC with Differential 2024 CPT-53074 Itraconazole Level 1 CPT-40984 BNP CPT-elizabeth New Oral Antibiotic CPT-17038 CMP [id number] CBC with Differential 2024 CPT-20591 CD4 60584 Fungitell, serum (1-3) D-Glucan Assay 03/07/12 CPT-51780 Urine Culture & Sensitivity [id number], [id number] Urinalysis CPT-cf Fungal Culture & Sensitivity CPT-41808 BNP Vital Signs Date Name Value Unit [...]
--- OUTSIDE RECORDS SUMMARY | 2025-07-01 11:15 | XMS_ITS | Clinical Summary ---
Author Organization [facility] Address [address] [place] [address] Care Team Providers Care Copy Operator Name Role Phone Provider, No Known [...] 08/15/2016 AAA SCREEN ONCE Completed 12/07/2016 Insurance [facility] [employer] PPO Care Teams Copy Operator Relationship Specialty Start Date End Date Provider, No Known [facility] [place] [place] [address] PCP - General 01/14/25
--- OUTSIDE RECORDS SUMMARY | 2025-07-01 11:15 | XMS_ITS | Encounter Summary ---
Author Organization Healthcare Address [address] [place] [address] Care Team Providers Care Regulatory Compliance Specialist Name Role Phone Rocky Almanzar MD Primary Care Provider [phone] Reason for Visit * Reason Comments Med Refill Encounter Details Date Type Department Care Team (Late Contact Info) Description 05/20/2021 Refill [facility] Endocrinology [address] [place] [address] Jason Romero MD [address] [address] Social History Tobacco Use Types [...] Description 07/07/2025 11:40 AM EDT Office [facility] Endocrinology [address] [place] [address] Melany Rosales, DO [address] [place] [address] 07/17/2025 2:00 PM EDT Office Visit [facility] Audiology [address], [address] [place] [address] Lottie Lund, AuD [address] [place] [address] 01/05/2026 11:00 AM EST Office Visit [facility] Eye [place] [address], [address] [place] [address] Vivian Macias, OD [address] [place] [address] documented as of this encounter Visit Diagnoses Not on filedocumented in this encounter Additional Health Concerns Infection Onset Date Last Indicated Resolved Time MRSA 03/30/2021 03/30/2021 documented as of this encounter Care Teams Regulatory Compliance Specialist Relationship Specialty Start Date End Date Rocky Almanzar MD [address] [place] [address] PCP - General 03/18/21 documented as of this encounter
--- OUTSIDE RECORDS SUMMARY | 2025-07-01 11:15 | XMS_ITS | Encounter Summary ---
Author Organization [facility] Address [address] [place] [address] Care Team Providers Care Napper Grinder Name Role Phone Rocky Almanzar MD Primary Care Provider [phone] Reason for Visit * Reason Comments Med Refill Encounter Details Date Type Department Care Team (Late Contact Info) Description 11/10/2021 Refill [facility] End[facility] [address] [place] [address] Jason Romero MD [address] [address] Type 2 diabetes mellitus with other specified complication, with long-term current use of insulin ([facility]) Social History Tobacco Use Types Packs/Day [...] EDT Office Visit [facility] [address] [place] [address] Melany Rosales, DO [address] [place] [address] 07/17/2025 2:00 PM EDT Office Visit [facility] Audiology [address] [place] [address] Lottie Lund, AuD [address] [place] [address] 01/05/2026 11:00 AM EST Office Visit [facility] Eye [place] [address], [address] [place] [address] Vivian Macias S, OD [address] [place] [address] documented as of this encounter Visit Diagnoses Diagnosis Type 2 diabetes mellitus with other specified complication, with long-term current use of insulin ([facility]) documented in this encounter Additional Health Concerns Infection Onset Date Last Indicated Resolved Time MRSA 03/30/2021 03/30/2021 Assessment Noted Time A fall risk assessment has been complete d for the patient 10/11/2021 3:35 PM EST documented as of this encounter Care Teams Napper Grinder Relationship Specialty Start Date End Date Rocky Almanzar MD [address] [place] [address] PCP - General 03/18/21 documented as of this encounter
--- OUTSIDE RECORDS SUMMARY | 2025-07-01 11:16 | XMS_ITS | Encounter Summary ---
Author Organization Healthcare Address [address] [place] [address] Care Team Providers Care Business Liaison Manager Name Role Phone Rocky Almanzar MD Primary Care Provider [phone] Encounter Details Date Type Department Care Team (Late st Contact Info) Description 04/28/2025 Telephone [facility] Endocrinology [address] [place] [address] Jason Romero MD [address] [place] [address] Social History Tobacco Use Types [...] with Derek's phone number for refills from [facility]. Pt's was on the phone and was able to take appropriate notes. Pt to come by [facility] to warp picker smaple FSL3+ sensor on Sunday. No other questions at this time. * Telephone Encounter - MARYLIN DALAL - 04/28/2025 12:05 PM EDT Pt requesting a call back regarding his [facility] system not seeming to be working. documented in this encounter Plan of Treatment Upcoming Encounters Date Type Department Care Team (Late st Contact Info) Description 07/07/2025 11:40 AM EDT Office Visit [facility] Endocrinology [address] [place] [address] Melany Rosales, DO [address] [place] [address] 07/17/2025 2:00 PM EDT Office Visit [facility] Audiology [address], [address] [place] [address] Lottie Lund, AuD [address] [place] [address] 01/05/2026 11:00 AM EST Office Visit [facility] Eye Center [address], [address] [place] [address] Vivian Macias S, OD [address] [place] [address] documented as of this encounter [...] as of this encounter Care Teams Business Liaison Manager Relationship Specialty Start Date End Date Rocky Almanzar MD [address] [place] [address] PCP - General 03/18/21 documented as of this encounter
--- OUTSIDE RECORDS SUMMARY | 2025-07-01 11:16 | XMS_ITS | Encounter Summary ---
Author Organization Healthcare Address [address] [place] [address] Care Team Providers Care Continuity Coordinator Name Role Phone Rocky Almanzar MD Primary Care Provider [phone] Reason for Visit * Reason Comments Med Refill Encounter Details Date Type Department Care Team (Late st Contact Info) Description 05/04/2025 Refill [facility] Endocrinology [address] [place] [address] Jason Romero MD [address] [address] Type 2 diabetes mellitus with hyperglycemia, with long-term current use of insulin ([facility]) Social History [...] Description 07/07/2025 11:40 AM EDT Office Visit [facility] Endocrinology [address] [place] [address] Melany Rosales, DO [address] [place] [address] 07/17/2025 2:00 PM EDT Office Visit [facility] Audiology [address] [place] [address] Lottie Lund, AuD [address] [place] [address] 01/05/2026 11:00 AM EST Office Visit [facility] Eye Center [address], [address] [place] [address] Vivain Macias S, OD [address] [place] [address] documented as of this encounter Visit Diagnoses Diagnosis Type 2 diabetes mellitus with hyperglycemia, with long-term current use of insulin ([facility]) documented in this encounter Additional Health Concerns Infection Onset Date Last Indicated Resolved Time MRSA 03/30/2021 03/30/2021 Assessment Noted Time A fall risk assessment has been complete d for the patient 12/16/2024 12:16 PM EST A Body Mass Index follow-up plan has been documented for the patient 01/13/2025 8:11 PM EDT documented as of this encounter Care Teams Continuity Coordinator Relationship Specialty Start Date End Date Rocky Almanzar MD [address] [place] [address] PCP - General 03/18/21 documented as of this encounter
--- OUTSIDE RECORDS SUMMARY | 2025-07-01 11:16 | XMS_ITS | Clinical Summary ---
Author Organization [facility] Address [address] [place] [address] Care Team Providers Care Certified Retinal Angiographer Name Role Phone Rocky Almanzar MD Primary Care Provider [phone] Allergies Active Allergy Reactions Criticality Noted Date [...] Encounters Date Type Department Care Team Description 06/30/2025 Refill [facility] Endocrinology [address] [place] [address] Jason Romero MD 05/04/2025 Refill [facility] Endocrinology [address] [place] [address] Jason Romero MD Type 2 diabetes mellitus with hyperglycemia, with long-term current use of insulin ([facility]) 04/28/2025 Telephone [facility] Endocrinology [address] [place] [address] Jason Romero MD 04/24/2025 Telephone [facility] Diabetes Education [address] [place] [address] Rocky Almanzar MD HCN - [...] EDT Office Visit [facility] Endocrinology [address] [place] [address] Melany Rosales, DO [address] [place] [address] 07/17/2025 2:00 PM EDT Office Visit [facility] Audiology [address] [place] [address] Lottie Lund, AuD [address] [place] [address] 01/05/2026 11:00 AM EST Office Visit [facility] Eye Center [address], [address] [place] [address] Vivian Macias S, OD [address] [place] [address] Health Maintenance Due Date Last Done Comments [facility]-Depression Screening 1950 [facility] Annual Wellness (AWV) 1950 [facility]-Infant/Child/Adol SDOH Screenings [...] A1C 03/17/202509/2025, 05/23/2024, 11/22/2023, Additional history exists LVZ-FRARD-65 Vaccine (7 - Moderna risk 2023- season) [...] this topic Medical Devices Implanted Type Area Rigging Loft Repairer Device Identifier Shelf Expiration Date Model / Serial / Lot Roseline king Advantage Ci Hifocus 1j Electrode--06/05 Implanted:06/05 by Ky Del Rio MD (Quantity not on file) Cochlear Left: Ear imeem [facility] [id number] / [id number] / Description:Roseline StanleyK Advant age CI HiFocus 1J electrode--cochlear implant by Dr. Del Rio at [facility] on 06/21/2017, operative note in Epic. LEFT EAR. Roseline ULTRA 3D Cochlear implant REF: [id number] Serial number: [id number] Procedures Procedure Name Priority Date/Time Associated Diagnosis [...] hemoglobin (Hb A1C) (12/16/2024 12:27 PM EST) Pathologist [facility] POCT Hemoglobin A1C 7.6 <5.7% Non-Diabet ic % [facility] Kit Lot Number [id number] [facility] Kit Expiration Date 10/04/26 [facility] Blood Venous blood specimen / Unknown 12/16/2024 12:27 PM EST Jason Romero MD POINT OF CARE TEST ENTER/ED IT ORDERABLES Final Result [facility] [address] [place] [address] * COLONOSCOPY (08/03/2017) Anatomical Region Laterality Modality Endoscopy Narrative 08/03/2017 Ordered by an unspecified provider. Historical Provider GI PROCEDURE ORDERABLES Vero l Result * Hepatitis C Antibody (08/15/2016 10:05 AM EDT) Pathologist [facility] Hepatitis C Antibody NEGATIVE Reference Range: Negative [facility] 08/15/2016 10:0 5 AM EDT 08/15/2016 11:43 AM EDT Pavan Joseph MD LAB BLOOD ORDERABLES Final Re sult [facility] from Last 3 Months or Most Recently Relevant to Health Maintenance Additional Health Concerns Infection Onset Date Last Indicated MRSA 03/30/2021 03/30/[address] [facility] MEDICARE EYEMED Care Teams Certified Retinal Angiographer Relationship Specialty Start Date End Date Rocky Almanzar MD [address] [place] [address] PCP - General 03/18/21
--- OUTSIDE RECORDS SUMMARY | 2025-07-01 11:17 | XMS_ITS | Patient Health Record ---
Author Organization [facility] Address [address] [facility] [address] [id number] Care Team Providers Care Industrial Therapist Name Role Phone Shauna Almanzar Primary Care Provider Emir Berger Unavailable [phone] Trinity Medeiros Unavailable [phone] Doretha Burns Unavailable [phone] Allergies Allergen (clinical drug ingredient) Drug/Non Drug Allergy documented on EMR Reaction Allergy Type Onset Date Status cephalexin Cephalexin Unknown Drug Allergy Activ e Results Component Value Reference Range Notes Glycohemoglobin A1c (in hous e) Reviewed date:10/10/2024 [...] AM Interpretation:cl 109, co2 21, bun 25, [id number] Performing Lab: Notes/Report: NA 137 136-145 mmol/L [...] Performing Lab: Notes/Report: Positive strep test Pos Urinalysis - Inhouse Reviewed date:01/09/2025 01:37:28 PM [...] 229 Performing Lab: Notes/Report: Test performed by [facility] [place][note 2]0 [facility] , [address], [place] [address] Kristian Trevino MD, Fleet Technician CLIA: [id number] Sodium 138 135-145 mmol/L Potassium 4.3 3.5-5.3 [...] Lab: Notes/Report: does not want H-BMP Reviewed date:09/19/2024 01:07:51 PM Interpretation:ordered by [...] 5.5 Performing Lab: Notes/Report: Test performed by [facility] [place][note 2]0 [facility] , [address], [place] [address] Kristian Trevino MD, Fleet Technician CLIA: [id number] Sodium 139 135-145 mmol/L Potassium 3.7 3.5-5.3 [...] 695 Performing Lab: Notes/Report: Test performed by [facility] [address] [place] [address] , [address], [place] [address] Kristian Trevino MD, Fleet Technician CLIA: [id number] Albumin/Creatinine Ratio, Urine 695 0-30 ug/mg Microalbumin, Urine, Random 16.4 Creatinine, Urine 23.6 Urinalysis - Inhouse Reviewed date:01/18/2025 02:07:53 PM Interpretation: Performing Lab: Notes/Report: Color/Clarity red/cloudy Leuk Neg Nitrite Neg Urobili 3.2 Protein 2+ pH 5.5 Blood 3+ Sp. Gr. 1.015 Ketone Neg Bili 1+ Gluc 2+ P-Vitamin D 25-Hydroxy Reviewed date:06/10/2025 08:30:05 AM Interpretation:Normal Performing Lab: Notes/Report: Test performed by [facility] [address] [place], [place] [address] , [address], [place] [address] Kristian Trevino MD, Fleet Technician CLIA: [id number] Vitamin D 25-Hydroxy 57.8 30.0-100.0 ng/mL Interpretation of Vitamin D 25 OH: < 20 ng/mL - Deficiency 20 - 29 ng/mL - Insufficiency 30 - 100 ng/mL - Sufficiency > 100 ng/mL - Super-therapeutic- toxicity may occur above this level. Clinical correlation required. P-TSH reflex to FT4 Reviewed date:06/10/2025 08:30:05 AM Interpretation:Normal Performing Lab: Notes/Report: Test performed by [facility] [address] , [address], [place] [address] Kristian Trevino MD, Fleet Technician CLIA: [id number] TSH reflex to FT4 3.44 0.43-5.25 mU/L P-Sed Rate (ESR) Reviewed date:06/10/2025 08:30:05 AM Interpretation:31 Performing Lab: Notes/Report: Test performed by [facility] , [place] [address] Kristian Trevino MD, Fleet Technician CLIA: [id number] Erythrocyte Sedimentation Rate (ESR), Automated 31 <21 mm/hr C-W-Slznweot Protein (CRP) Reviewed date:06/10/2025 08:30:05 AM Interpretation:4.00 Performing Lab: Notes/Report: Test performed by [facility] [address] , [address], [place] [address] Kristian Trevino MD, Fleet Technician CLIA: [id number] C-Reactive Protein (CRP) 4.00 <0.50 mg/dL P-CPK Reviewed date:06/10/2025 08:30:05 AM Interpretation:23 Performing Lab: Notes/Report: Test performed by [facility] [address] , [address], [place] [address] Kristian Trevino MD, Fleet Technician CLIA: [id number] Creatine Kinase 23 20-200 U/L P-Comprehensive Metabolic Pa tarah (CMP) Reviewed date:06/10/2025 08:30:05 AM Interpretation:K 3.0, Glu 245, Creat 1.52, eGFR 48, Pro 5.8, Alb 3.2, Alk Phos 232 Performing Lab: Notes/Report: Test performed by [facility] [address] [place] [address] , [address], [place] [address] Kristian Trevino MD, Fleet Technician CLIA: [id number] Sodium 141 135-145 mmol/L Potassium 3.0 3.5-5.3 [...] Performing Lab: Notes/Report: chronic findings, nothing new H-TSH Reviewed date:11/13/2024 01:33:09 PM Interpretation:Normal Performing [...] every 6 hrs Active [employer] Leroy 3 [place] - as directed 05/12/2025 Not-Taking Levothyroxine Sodium [...] W/U Status Risk Notes Problem Essential hypertension (94349048) Essential (primary) hypertension (I10) Active confirmed Problem Vitamin D deficiency (50905382) Vitamin D deficiency (E55.9) Active confirmed Problem Essential hypertension (46609937) Essential hypertension (I10) Active confirmed Problem Screening for malignant neoplasm of prostate (741202235) Prostate cancer screening (Z12.5) Active confirmed Problem Anorexia (76714519) Anorexia (R63.0) Active con firmed Problem Paroxysmal atrial fibrillation (223025773) Paroxysmal atrial fibrillation (I48.0) Active confirmed Problem Hyperglycemia due to type 2 diabetes mellitus (347708821117145) Type 2 diabetes mellitus with hyperglycemia (E11.65) Active confirmed Problem Mixed hyperlipidemia (716031037) Mixed hyperlipidemia (E78.2) Active confirmed Problem Hyperlipidemia (11362996) Hyperlipidemia, unspecified (E78.5) Active confirmed Problem Hereditary hemochromatosis (95585498) 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) Active confirmed Problem Chronic respiratory failure (46454527) Chronic respiratory failure with hypoxia (J96.11) Active confirmed Problem Autoimmune hepatitis (545552914) Autoimmune hepatitis (K75.4) Active confirmed Problem Cholelithiasis without obstruction (43429192) Calculus of gallbladder without cholecystitis without obstruction (K80.20) Active confirmed Problem Cochlear implant status (Z96.21) Active confirmed Problem Male erectile disorder (120317051) Male erectile disorder (N52.9) Active confirmed Problem Long-term current use of insulin (167373794) ad terminal makeup operator (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 (Z79.4) Active confirmed Problem Type II diabetes mellitus without complication (493594993) Type 2 diabetes mellitus without complication (E11.9) Active confirmed Problem Acquired hypothyroidism (922900463) Acquired hypothyroidism (E03.9) Active confirmed Problem Pulmonary fibrosis (98348254) Pulmonary fibrosis (J84.10) Active confirmed Problem Chronic fatigue syndrome (21781887) Chronic fatigue (R53.82) Active confirmed Problem COPD - Chronic obstructive pulmonary disease (06399239) Chronic obstructive pulmonary disease, unspecified COPD type (J44.9) Active confirmed Problem Pneumonia (711259546) Pneumonia of right lower lobe due to infectious organism (J18.9) Active confirmed Problem Hearing loss (00821673) Hearing loss, bilateral (H91.93) Active confirmed Problem Disorder of adrenal gland (24686893) 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) Active confirmed Problem Neutropenia (623234221) Neutropenia, unspecified type (D70.9) Active confirmed Problem Interstitial lung disease (288131554) Interstitial lung disease (J84.9) Active confirmed Problem Seasonal allergic rhinitis (590016233) Seasonal allergic rhinitis, unspecified allergic rhinitis trigger (J30.2) Active confirmed Problem Granulocytopenia (901181560) 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 confirmed Problem Systemic lupus erythematosus (53700521) Lupus (systemic lupus erythematosus) (M32.9) Active confirmed Problem Cardiac arrhythmia (411134253) Cardiac arrhythmia, unspecified cardiac arrhythmia type (I49.9) Active confirmed Problem Malnutrition, calorie (556568321) Caloric malnutrition (E46) Active confirmed Problem Benign prostatic hypertrophy without outflow obstruction (478242641) BPH without urinary obstruction (N40.0) Active confirmed Problem Allergic rhinitis caused by pollen (13859270) Acute seasonal allergic rhinitis due to pollen (J30.1) Active confirmed Problem Sensorineural hearing loss, bilateral (669765378) Sensorineural hearing loss (SNHL) of both ears (H90.3) Active confirmed Problem Cholestatic hepatitis (74356313) Cholestatic hepatitis (K75.89) Active confirmed Problem Skin sensation disturbance (10896297) Sensitive skin (R20.3) Active confirmed Problem Dilatation of aorta (57741491) Dilatation of aorta (I77.819) Active confirmed Problem Tomography - chest abnormal (719317203) Abnormal CT scan, chest (R93.89) Active confirmed Problem Left atrial dilatation (341186789) Left atrial dilatation (I51.7) Active confirmed Problem Chronic vascular insufficiency of intestine (190937955) 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 [address] [id number] 09/05/2024 Shauna Almanzar Pneumonia of left lo wer lobe due to infectious organism J18.9 ; Interstitial lung disease J84.9 ; Chronic respiratory failure with hypoxia J96.11 ; 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 ; Autoimmune hepatitis K75.4 ; Protein malnutrition E46 and Caloric malnutrition E46 [facility] [address] [id number] 09/16/2024 Trinity Medeiros Strep pharyngitis J0 2.0 and Oral candidiasis B37.0 [facility] [address] [id number] 10/09/2024 Shauna Almanzar Lesion of adrenal gl and E27.9 ; Essential hypertension I10 ; Type 2 diabetes mellitus without complication E11.9 ; Acquired hypothyroidism E03.9 ; Hearing loss, bilateral H91.93 ; Cochlear implant status Z96.21 ; Protein malnutrition E46 ; Chronic obstructive pulmonary disease, unspecified COPD type J44.9 and Encounter for immunization Z23 [facility] [address] [place], [place] [id number] 11/03/2024 Emir [place] Acute cough R05.1 [facility] [address] [id number] 11/07/2024 Shauna Almanzar Type 2 diabetes aquilino itus without complication E11.9 ; Acquired hypothyroidism E03.9 and Hereditary hemochromatosis E83.110 [facility] [address] [place], [place] [id number] 01/09/2025 Shauna Almanzar Type 2 diabetes aquilino itus without complication E11.9 ; Hereditary hemochromatosis E83.110 ; Cochlear implant status Z96.21 ; Chronic obstructive pulmonary disease, unspecified COPD type J44.9 ; Essential (primary) hypertension I10 ; Protein malnutrition E46 and Gross hematuria R31.0 [facility] [address] [place], [place] [id number] 01/15/2025 Shauna Almanzar Interstitial lung disease J84.9 ; 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 ; Autoimmune hepatitis K75.4 ; Protein malnutrition E46 ; Cochlear implant status Z96.21 ; Type 2 diabetes mellitus without complication E11.9 and Hematuria R31.9 [facility] [address] [id number] 02/11/2025 Emir Berger Type 2 diabetes aquilino itus with hyperglycemia E11.65 ; ad terminal makeup operator (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.4 ; Gross hematuria R31.0 and Body mass index (BMI) of 19.0 to 19.9 in adult Z68.1 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 [address] [place] [id number] 04/30/2025 Shauna Almanzar Type 2 diabetes aquilino itus with hyperglycemia E11.65 ; ad terminal makeup operator (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.4 ; Adrenal [...] adult Z68.22 and Cochlear implant status Z96.21 [facility] [address] [place], [place] [id number] 06/09/2025 Emir [place] Generalized weakness R53.1 ; Anorexia R63.0 and Vitamin D deficiency E55.9 [facility] [address] [place], [place] [id number] 06/10/2025 J Rogerio Almanzar [facility] [address] [place], [place] [id number] 09/01/2024 J Rogerio Almanzar [facility] [address] [place], [place] [id number] 09/04/2024 J Rogerio Almanzar [facility] [address] [place], [place] [id number] 09/08/2024 J Rogerio Almanzar [facility] [address] [place], [place] [id number] 09/10/2024 J Rogerio Almanzar [facility] [address] [place], [place] [id number] 09/15/2024 J Rogerio Almanzar [facility] [address] [place], [place] [id number] 09/16/2024 J Rogerio Almanzar [facility] [address] [place], [place] [id number] 09/25/2024 J Rogerio Almanzar [facility] [address] [place], [place] [id number] 11/03/2024 Emir [place] [facility] [address] [place], [place] [id number] 01/12/2025 J Rogerio Almanzar [facility] [address] [place], [place] [id number] 05/12/2025 Shauna Almanzar [facility] [address] [place], [place] [id number] 05/12/2025 Shauna Rogerio Almanzar [facility] [address] [place], [place] [id number] 06/04/2025 Shauna Almanzar [facility] [address] [place], [place] [id number] 06/10/2025 Emir Berger [facility] [address] [place], [place] [id number] 06/23/2025 Shauna Almanzar Colon cancer screeni Z12.11 [...] to resume use of his CGM 02/11/2025 assisted (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 (ICD-10 - [...] mellitus with hyperglycemia (ICD-10 - E11.65) 04/30/2025 ad terminal makeup operator (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 [...] Essential (primary) hypertension (ICD-10 - I10) 04/02/2025 ad terminal makeup operator (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 [...] 11/07/2024 Next Appt Details Provider Name:Shauna Beatty [facility], 07/03/2025 11:45:00 AM, [address] [facility] [address] [facility], [facility] [address], [place], [id number], Provider Name:Shauna Beatty [facility], 07/06/2025 03:34:00 PM, [facility], [address], [place], [id number], Insurance Providers Payer Name Payer Address Payer Phone Subscriber Number Group Number Insured Name Patient Relationship to Insured Coverage Start Date Coverage End Date [facility] [address] [address] [place] [id number] HERMILA GOLDEN Self - patient is the insured Medical (General) History Medical History History ICD Code Seasonal Allergies Kidney Stones Steatohepatitis hemachromatosis,(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 Smalls and Dr. Thakur Atrial dysrrhythmia, see [place] notes 2012 hearing loss 2013, hearing aids Impaired fasting glucose Gets yearly eye exams, [facility] Questionable Dx Lupus erythematosus 2016 Granuloma annulare [...]
[2025-07-01 13:05] LABS: PHA INR Fingerstick 1.3 (0.9-1.1)
== END 2025-07-01 14:12 ==
LOC: ACC 11:08
PROVIDERS: PCP Family Medicine; Visit Provider Nurse Practitioner
DX: I48.0 Paroxysmal atrial fibrillation (principal)
CPT/HCPCS: 85610; 99211; G0463

== ENCOUNTER 2025-07-03 13:10 | Outpatient (CLI) | payer MEDICARE, SELFPAY ==
--- OUTSIDE RECORDS SUMMARY | 2025-04-02 10:15 | XMS_ITS ---
Author Organization [facility] [facility] Address 1210 [facility] [address] [phone] Care Team Providers Care Neurocritical Care Physician Name Role Phone Shauna Almanzar Primary Care [...] 5.5 Performing Lab: Notes/Report: Test performed by [employer] [facility]0 [facility] , [address], [place] [address] Kristian Trevino MD, Air Carrier Inspector CLIA: [id number] Sodium 139 135-145 mmol/L Potassium 3.7 3.5-5.3 [...] 695 Performing Lab: Notes/Report: Test performed by [email or web address] [address] [place] [address] , [address], [place] [address] Kristian Trevino MD, Air Carrier Inspector CLIA: [id number] Albumin/Creatinine Ratio, Urine 695 0-30 ug/m g [...] 02:47:51 PM > faxed to [facility] PT Referral Priority Routine REASON [...] 04/02/2025 Encounters Encounter Location Date Provider [facility] 1210 [facility] [address] [id number] 04/02/2025 Shauna Almanzar Type 2 diabetes aquilino itus without complication E11.9 ; 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 ; Cholestatic hepatitis K75.89 ; 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 operator (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.4 ; 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 ; Generalized weakness R53.1 and BMI 20.0-20.9, adult Z68.20 Assessments Encounter Date Diagnosis (ICD Code) Assessment Notes Treatment Notes Treatment Clinical Notes Section Notes 04/02/2025 Type 2 diabetes mellitus without complication (ICD-10 - E11.9) 04/02/2025 Adrenal abnormality (ICD-10 - E27.9) 04/02/2025 Cholestatic hepatitis (ICD-10 - K75.89) 04/02/2025 custodial (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 (ICD-10 - [...] 4 Weeks, Reason: Provider Name:Shauna Merida er, 07/06/2025 03:34:00 PM, [address] [place] [address], [address], [place], [place], [id number], Provider Name:Shauna WoodallRogeriohema Merida er, 08/07/2025 11:00:00 AM, [address] [place] [address], [address], [place], [place], [id number], Progress Notes * HERMILA GOLDEN GINOOB: [birth year] (75 yo M)Acc No.[id number]:04/02/2025 Progress Notes Patient: HERMILA BUCIO Provider: Shauna Almanzar M.D. 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 B [place] 20.0-20.9, adult - Z68.20? Plan: * Treatment: [...] G 2211 Complex e/[place], [address] GLYCATED HEMOGLOBIN TEST, Modifiers: QW , G8752 [...] * Images: Billing Information: * Visit Code: 41921 Office Visit, Est Pt., Level 4. * Procedure Codes: G2211 Complex e/[place]. [address] GLYCATED HEMOGLOBIN TEST. Modifiers: QW G8752 MOST RECENT SYSTOLIC BP < 140MM HG. G8754 MOST RECENT DIASTOLIC BP < 90MM HG. 3046F HEMOGLOBIN A1C LEVEL > 9.0%. G8420 BMI<30 AND >=22 CALC & DOCU. 1036F TOBACCO NON-USER. 3017F COLORECTAL CA SCREEN DOC REV. * Electronic signature of Shauna Almanzar MD on 07/03/2025 at 01:13 PM EDT Sign off status: Pending * Provider: Shauna Almanzar M.D. Date: 0 04/02/2025 Generated for Printi ng/Faxing/eTransmitting on: 0 07/03/2025 01:13 PM EDT History and Physical Notes * [...]
--- OUTSIDE RECORDS SUMMARY | 2025-04-30 10:00 | XMS_ITS ---
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) Referral [facility] Referring Provider First Name Shauna [...] W/U Status Risk Notes Problem Cardiac arrhythmia (241435839) Cardiac arrhythmia, unspecified cardiac arrhythmia type (I49.9) Active confirmed Problem 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 Vital Signs Weight 133.8 lbs 04/30/2025 Blood pressure systolic 130 mm Hg 04/30/20 25 Blood pressure diastolic 62 mm Hg 025 Heart Rate 85 /min 04/30/2025 Height 65 in 04/30/2025 BMI 22.26 kg/m2 04/30/2025 Encounters Encounter Location Date Provider Diagnosis [address] [phone] 04/30/2025 Shauna Almanzar Type 2 diabetes aquilino itus with hyperglycemia E11.65 ; [facility] (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.4 ; Adrenal [...] 2 Months, Reason: Provider Name:Shauna Merida , 07/06/2025 03:34:00 PM, [address] [place] [address], [facility] [address], [place], [place], [id number], Provider Name:Shauna Merida , 08/07/2025 11:00:00 AM, [address] [place] [address], [address], [place], [place], [id number], Progress Notes * HERMILA GOLDENOB: [birth year] (75 yo M)Acc No.[id number]:04/30/2025 Progress Notes Patient: Daniele SALAS HERMILA WALDROP Provider: Shauna Almanzar M.D. :1950 A ge:75 Y S ex:Male Date:04/30/2025 Address:[address] [place] [address] 32 , [facility] Subjective: * Chief Complaints: * 1 . [...] glucose, Gets yearly eye exams, 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 B [place] 22.0-22.9, adult - Z68.22 1 3. C [...] * Images: Billing Information: * Visit Code: 40781 Office Visit, Est Pt., Level 4. * [...] 04/30/2025 Generated for Printi ng/Faxing/eTransmitting on: 0 07/03/2025 [...]
--- OUTSIDE RECORDS SUMMARY | 2025-06-09 06:00 | XMS_ITS ---
Author Organization [facility] Address 1210 [facility] [address] [id number] Care Team Providers Care Train Planner Name Role Phone Shauna Almanzar Primary Care Provider Emir Berger Unavailable [phone] Allergies Allergen (clinical drug ingredient) Drug/Non Drug [...] 232 Performing Lab: Notes/Report: Test performed by [employer] [facility] , [address], [place] [address] Kristian Trevino MD, Guard Driver CLIA: [id number] Sodium 141 135-145 mmol/L Potassium 3.0 3.5-5.3 [...] Interpretation:23 Performing Lab: Notes/Report: Test performed by [employer] [address] , [facility], [place] [address] Kristian Trevino MD, Guard Driver CLIA: [id number] Creatine Kinase 23 20-200 U/L C-J-Umnbyklj Protein (CRP) Reviewed date:06/10/2025 08:30:05 AM Interpretation:4.00 Performing Lab: Notes/Report: Test performed by [employer] [address] , [address], [place] [address] Kristian Trevino MD, Guard Driver CLIA: [id number] C-Reactive Protein (CRP) 4.00 <0.50 mg/dL P-Sed Rate (ESR) Reviewed date:06/10/2025 08:30:05 AM Interpretation:31 Performing Lab: Notes/Report: Test performed by [facility] [address] [place] [address] , [address], [place] [address] Kristian Trevino MD, Guard Driver CLIA: [id number] Erythrocyte Sedimentation Ra te (ESR), Automated 31 <21 mm/hr P-TSH reflex to FT4 Reviewed date:06/10/2025 08:30:05 AM Interpretation:Normal Performing Lab: Notes/Report: Test performed by [facility] [address] [place] [address] , [address], [place] [address] Kristian Trevino MD, Guard Driver CLIA: [id number] TSH reflex to FT4 3.44 0.43-5.25 mU/L P-Vitamin D 25-Hydroxy Reviewed date:06/10/2025 08:30:05 AM Interpretation:Normal Performing Lab: Notes/Report: Test performed by [facility] [address] [place] [address] , [address], [place] [address] Kristian Trevino MD, Guard Driver CLIA: [id number] Vitamin D 25-Hydroxy 57.8 30.0-100.0 ng/mL Interpretation [...] Duration: 90 days Active FreeStyle Leroy 3 [place] - as directed 05/12/2025 Not-Taking Levothyroxine Sodium [...] 06/09/2025 Encounters Encounter Location Date Provider Diagnosis [facility] [address] [place] [address] 36 [facility] [address] [place] [id number] 06/09/2025 Emir Berger Generalized weakness R53.1 ; [...] test results, Reason: Provider Name:Shauna Merida , 07/06/2025 03:34:00 PM, [address] [place] [address], [facility] [address], [place], [id number], Provider Name:Shauna Merida , 08/07/2025 11:00:00 AM, [address] [place] [address], [facility] [address], [place], [id number], Progress Notes * HERMILA GOLDENOB: [birth year] (75 yo M)Acc No.[id number]:06/09/2025 Progress Notes Patient: HERMILA BUCIO BENJIE Provider: Jaden Berger M.D. :1950 A ge:75 Y S ex:Male Date:06/09/2025 Address:[address] [place] [address], [facility] Pcp:Shauna Almanzar Subjective: * Chief Complaints: * [...] mouth daily , Not-Taking FreeStyle Leroy 3 [place] - Device as directed , Not-Taking FreeStyle [...] AM EDT > See phone encounter ?LAB: S-R-Omotqujn Protein (CRP) (Collection Date & Time - 06/09/2025 09:55 AM)?4.00* Value Reference Range C -Reactive Protein (CRP) 4.00 H <0.50 - mg/dL * Nemo Rooney 06/10/2025 08:2 9:56 AM EDT > See phone encounter ?LAB: P-Sed Rate (ESR) (Collection Date & Time - 06/09/2025 09:55 AM)?31* Value Reference Range E rythrocyte Sedimentation Rate (ESR), Automated 31 H <21 - mm/hr * Nmeo Rooney 06/10/2025 08:2 9:56 AM EDT > [...] G 2211 Complex e/[place], [address] CBC WITH AUTO DIFF, 1036F TOBACCO NON-USER, G8783 BP SCR PRFRM RCMDD DEFIND SCR INTVL, G8752 MOST RECENT SYSTOLIC BP < 140MM HG, G8754 MOST RECENT DIASTOLIC BP < 90MM HG * Follow Up: v ia phone to report test results * Images: Billing Information: * Visit Code: 10042 Office Visit, Est Pt., Level 4. * Procedure Codes: G2211 Complex e/[place]. [address] CBC WITH AUTO DIFF. 1036F TOBACCO NON-USER. G8783 BP SCR PRFRM RCMDD DEFIND SCR INTVL. G8752 MOST RECENT SYSTOLIC BP < 140MM HG. G8754 MOST RECENT DIASTOLIC BP < 90MM HG. * Electronic signature of Elidia Berger MD on 07/03/2025 at 01:14 PM EDT Sign off status: Pending * Provider: Jaden Berger M.D. Date: 0 06/09/2025 Generated for Marissa mendoza/Rei/Johnsmitting on: 0 07/03/2025 01:14 PM EDT History and Physical Notes * [...]
--- OUTSIDE RECORDS SUMMARY | 2025-06-15 11:23 | XMS_ITS ---
Author Organization [facility] Address [address] [place] [address] [place] [address] Phone Care Team Providers Care Hydrator Operator Name Role Phone Sukumar CUEVAS, Rocky Griggs [ ] Conditions or Problems No information available. Medications Medication Instructions Start Date Stop Date Generic Name [facility] Provider MINOCYCLINE HCL 100 MG CAPS 1 capsule by mouth twice a day Take one twice a day for three days then only take 1 once a day 1 minocycline [id number] Rocky Patino MD budesonide 3 mg by mouth as needed as directed budesonide Flavio Hauret Medications Administered No information available. Allergies, Adverse Reactions, Alerts No information available. Results Date Name Value Unit Range Flag Description Office Visit: Office Visit:r maida 2 MEDS REVIEW Done Documenta tion of current medications (procedure) SMOK STATUS Former smoker Tob acco smoking status Plan of Care Type Date Detail Appointment 11:00 AM Rocky Patino MD, [facility], [address], [place], [address], Pending order New Oral Antibio tic Pending order Change oral anti biotics Procedures Code Procedure Name Date Entry Date G2211 Complex E&M visit add-on (G221) Vital Signs Date Name Value Unit Description BMI (Body Mass Index) 21.63 kg/m2 Bod y Mass Index (Ratio) Body Temperature 97.2 [degF] temperat ure E&M BP Diastolic 56 mm[Hg] blood pressu re, diastolic BP Systolic 98 mm[Hg] blood pressur e, systolic Heart Rate 86 /min pulse rate Height 65 [in_us] height E&M Respiratory Rate 16 /min respirat ory rate E&M Weight Measured 130 [lb_av] weight E& M Weight Measured 130 [lb_av] weight E& M Immunizations No information available. Advance Directives No information available.
--- OUTSIDE RECORDS SUMMARY | 2025-06-23 07:29 | XMS_ITS ---
Author Organization [facility] Address [address] [place] [phone] Care Team Providers Care Cut Roll Machine Operator Name Role Phone Shauna Almanzar Primary Care Provider REASON FOR VISIT due col Encounters Encounter Location Date Provider Diagnosis [facility] 1210 [facility] [address] [facility] [address] [place] [id number] 06/23/2025 Shauna Almanzar Colon cancer screening Z12.11 Assessments Encounter Date Diagnosis (ICD Code) Assessment Notes Treatment Notes Treatment Clinical Notes Section Notes 06/23/2025 Colon cancer screening (ICD-10 - Z12.11) Plan Of Treatment Pending Test Test Name Order Date Cologuard 06/23/2025 Next Appt Details Provider Name:Shauna Merida er, 07/06/2025 03:34:00 PM, [address], [place], [phone], Provider Name:Shauna Merida er, 08/07/2025 11:00:00 AM, [address], [address], [place], [phone], Progress Notes * HERMILA GOLDENOB: [birth year] (75 yo M)Acc No.[id number]:06/23/2025 Patient: Daniele SALASHERMILA :1950 A ge:75 Y S ex:Male Address:[address] [place] [address], [place] [address] Subjective: * Chief Complaints: * D ue col * Medical History: * Surgical History: * Hospitalization/Major Diagno stic Procedure: * Medications: Objective: * Vitals: * Physical Examination: Assessment: * Assessment: 1. C endy cancer screening - Z12.11 (Primary) Plan: * Treatment: * Procedure Codes: * true * Date: Generated for Marissa mendoza/Rei/Jeremiah on: 07/03/2025 01:13 PM EDT
--- OUTSIDE RECORDS SUMMARY | 2025-07-03 13:13 | XMS_ITS | Encounter Summary ---
Author Organization [facility] Address [address] [place] [address] Care Team Providers Care Library Services Assistant Name Role Phone Rocky Almanzar MD Primary Care Provider [phone] Reason for Visit * Reason Comments Med Refill Encounter Details Date Type Department Care Team (Late Contact Info) Description 11/10/2021 Refill [facility] [address] [place] [address] Jason Romero MD [address] [address] Type 2 diabetes mellitus with other specified complication, with long-term current use of insulin ([facility]) Social History Tobacco Use Types [...] EDT Office Visit [facility] [address] [place] [id number] Melany Rosales, DO [address] [place] [address] 07/17/2025 2:00 PM EDT Office Visit [facility] Audiology [address] [place] [address] Lottie Lund, AuD [address] [place] [address] 01/05/2026 11:00 AM EST Office Visit [facility] [address], [address] [place] [address] Vivian Macias S, OD [address] [place] [address] documented as of this encounter Visit Diagnoses Diagnosis Type 2 diabetes mellitus with other specified complication, with long-term current use of insulin ([facility]) documented in this encounter Additional Health Concerns Infection Onset Date Last Indicated Resolved Time MRSA 03/30/2021 03/30/2021 Assessment Noted Time A fall risk assessment has been complete d for the patient 10/11/2021 3:35 PM EST documented as of this encounter Care Teams Library Services Assistant Relationship Specialty Start Date End Date Rocky Almanzar MD [address] [place] [address] PCP - General 03/18/21 documented as of this encounter
--- OUTSIDE RECORDS SUMMARY | 2025-07-03 13:13 | XMS_ITS | Encounter Summary ---
Author Organization Healthcare Address [address] [place] [address] Care Team Providers Care Fiberglass Boat Builder Name Role Phone Rocky Almanzar MD Primary Care Provider [phone] Reason for Visit * Reason Comments Med Refill Encounter Details Date Type Department Care Team (Late st Contact Info) Description 05/04/2025 Refill [facility] Endocrinology [address] [place] [address] Jason Romero MD [address] [address] Type 2 diabetes mellitus with hyperglycemia, with long-term current use of insulin ([facility]) Social History Tobacco Use [...] Description 07/07/2025 11:40 AM EDT Office Visit [facility] Endocrinology [address] [place] [address] Melany Rosales, DO [address] [place] [address] 07/17/2025 2:00 PM EDT Office Visit [facility] Audiology [address], [address] [place] [address] Lottie Lund, AuD [address] [place] [address] 01/05/2026 11:00 AM EST Office Visit [facility] [address], [address] [place] [address] Vivian Macias S, OD [address] [place] [address] documented as of this encounter Visit Diagnoses Diagnosis Type 2 diabetes mellitus with hyperglycemia, with long-term current use of insulin ([facility]) documented in this encounter Additional Health Concerns Infection Onset Date Last Indicated Resolved Time MRSA 03/30/2021 03/30/2021 Assessment Noted Time A fall risk assessment has been complete d for the patient 12/16/2024 12:16 PM EST A Body Mass Index follow-up plan has been documented for the patient 01/13/2025 8:11 PM EDT documented as of this encounter Care Teams Fiberglass Boat Builder Relationship Specialty Start Date End Date Rocky Almanzar MD [address] [place] [address] PCP - General 03/18/21 documented as of this encounter
--- OUTSIDE RECORDS SUMMARY | 2025-07-03 13:13 | XMS_ITS | Clinical Summary ---
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 247312939 (SNOMED CT) 01/14 Active 01/14 Rocky Patino MD Drug-induced immunodeficiency Leukopenia 40482974 (SNOMED CT) 01/14 Active 01/14 Rocky Patino MD Leukopenia 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/09 Active 01/09 Echo Mccurdy 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/09 Active 01/09 Echo Mccurdy Acute pulmonary histoplasmosis capsulati Medications Medication Instructions Start Date Stop Date Generic Name [facility] Provider VORICONAZOLE 200 MG TABS Take 1 tablet by mouth once a day voriconazole 34286434082 Rocky Patino MD MINOCYCLINE HCL 100 MG CAPS 1 capsule by mouth twice a day Take one twice a day for three days then only take 1 once a day minocycline 20553662404 Rocky Patino MD budesonide 3 mg by mouth as needed as directed budesonide Flavio Mack budesonide 3 mg by mouth as needed as directed budesonide Hugh Angel EZETIMIBE 10 MG TABS 1 tablet by mouth once a day ezetimibe 80152874051 Hugh Angel XARELTO 20 MG TABS rivaroxaban 16806071205 [facility] Stanley PRAVASTATIN SODIUM 20 MG TABS 1 tablet by mouth once a day pravastatin 87381994489 [facility] aspirin 81 mg capsule 1 capsule by mouth once a day aspirin [facility] ITRACONAZOLE 100 MG CAPS Take 2 capsule by mouth twice a day itraconazole 28422531999 Anne Merlos ITRACONAZOLE 100 MG CAPS TAKE TWO CAPSULES BY MOUTH TWICE DAILY itraconazole 42010072497 Rocky Patino MD IPRATROPIUM-ALBU TEROL 0.5-2.5 (3) MG/3ML SOLN ipratropium-albut phoenix 85495707666 Amrita Herminia JARDIANCE 10 MG TABS 1 tablet by mouth once a day empagliflozin 27940694629 Amrita Hope ITRACONAZOLE 100 MG CAPS Take 2 capsule by mouth twice a day itraconazole 60892615379 Rocky Patino MD XARELTO 20 MG TABS rivaroxaban 77056187392 [facility] aspirin 81 mg capsule 1 capsule by mouth once a day aspirin Laiba Sonu budesonide 9 mg by mouth as needed as directed budesonide Laiba Sonu VITAMIN D 25 MCG (1000 UT) TABS 1 tablet by mouth once a day cholecalciferol (vitamin d3) 77774350692 Laiba Sonu JARDIANCE 10 MG TABS 1 tablet by mouth once a day empagliflozin 14104779411 Laiba Sonu EZETIMIBE 10 MG TABS 1 tablet by mouth once a day ezetimibe 37155052824 Laiba Sonu insulin lispro protamine-lispro 100 unit/mL (75-25) subcutaneous susp insulin lispro protamin-lispro Laiba Sonu IPRATROPIUM-ALBU TEROL 0.5-2.5 (3) MG/3ML SOLN ipratropium-albut phoenix 73946921028 Laiba Sonu LEVOTHYROXINE SODIUM 50 MCG TABS 1 tablet by mouth once a day levothyroxine 95611968907 Laiba Sonu METFORMIN HCL 500 MG TABS 1 tablet by mouth once a day metformin 69183124896 Laiba Sonu MIRTAZAPINE 15 MG TABS 1 tablet by mouth once a day mirtazapine 44656082161 Laiba Sonu MYCOPHENOLATE MOFETIL 500 MG TABS 1 tablet by mouth twice a day mycophenolate mofetil 09386384045 Laiba Sonu PRAVASTATIN SODIUM 20 MG TABS 1 tablet by mouth once a day pravastatin 76848232056 Laiba Sonu URSODIOL 500 MG TABS 1 tablet by mouth twice a day ursodiol 72243360264 Laiba Sonu Medications Administered No information available. 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, RENEWABLE ENERGY DIVISION MANAGER FALLRSKASSES yes Fall ris k assessment Lab [...] Detail Appointment 11:00 AM Rocky Patino MD, [facility], [address], [place], [address], Pending order New Oral Antibio tic Pending [...] (G2211) G2211 Complex E&M visit add-on (G2211) CPT-82681 CMP [id number] CBC with Differential 2024 CPT-45022 BNP CPT-84071 Itraconazole Level 3 CPT-Cooral Continue oral antibiotics 29/04/13 G2211 Complex E&M visit add-on (G2211) CPT-Cooral Continue oral antibiotics 27/02/11 CPT-75336 CMP [id number] CBC with Differential 2024 CPT-65141 Itraconazole Level 1 CPT-62824 BNP CPT-elizabeth New Oral Antibiotic CPT-90065 CMP [id number] CBC with Differential 2024 CPT-63444 CD4 16649 Fungitell, serum (1-3) D-Glucan Assay 03/07/12 CPT-15506 Urine Culture & Sensitivity [id number], [id number] Urinalysis CPT-cf Fungal Culture & Sensitivity CPT-10574 BNP Vital Signs Date Name Value Unit [...]
--- OUTSIDE RECORDS SUMMARY | 2025-07-03 13:13 | XMS_ITS | Encounter Summary ---
Author Organization Healthcare Address [address] [place] [address] Care Team Providers Care Order Entry Clerk Name Role Phone Rocky Almanzar MD Primary Care Provider [phone] Reason for Visit * Reason Comments Med Refill Encounter Details Date Type Department Care Team (Late st Contact Info) Description 06/30/2025 Refill [facility] Endocrinology [address] [place] [address] Jason Romero MD [address] [address] Social History Tobacco Use Types [...] Description 07/07/2025 11:40 AM EDT Office Visit [facility] Endocrinology [address] [place] [address] Melany Rosales, DO [address] [place] [address] 07/17/2025 2:00 PM EDT Office Visit [facility] Audiology [address], 3[address] [place] [address] Lottie Lund, AuD [address] [place] [address] 01/05/2026 11:00 AM EST Office Visit [facility] [address], [address] [place] [address] Vivian Macias S, OD [address] [place] [address] documented as of this encounter [...] documented as of this encounter Care Teams Order Entry Clerk Relationship Specialty Start Date End Date Rocky Almanzar MD [address] [place] [address] PCP - General 03/18/21 documented as of this encounter
--- OUTSIDE RECORDS SUMMARY | 2025-07-03 13:13 | XMS_ITS | Clinical Summary ---
Author Organization [facility] Address [address] [place] [address] Care Team Providers Care Kinesiologist Name Role Phone Provider, No Known Primary [...] 08/15/2016 AAA SCREEN ONCE Completed 12/07/2016 Insurance [facility] [employer] PPO Care Teams Kinesiologist Relationship Specialty Start Date End Date Provider, No Known [facility] [place] [address] PCP - General 01/14/25
--- OUTSIDE RECORDS SUMMARY | 2025-07-03 13:13 | XMS_ITS | Encounter Summary ---
Author Organization Healthcare Address [address] [place] [address] Care Team Providers Care Showroom Salesperson Name Role Phone Rocky Almanzar MD Primary Care Provider [phone] Reason for Visit * Reason Comments Med Refill Encounter Details Date Type Department Care Team (Late Contact Info) Description 05/20/2021 Refill [facility] Endocrinology [address] [place] [address] Jason Romero MD [address] [address] Social History Tobacco Use Types [...] Description 07/07/2025 11:40 AM EDT [facility] End[facility]ology [address] [place] [address] Melany Rosales, DO [address] [place] [address] 07/17/2025 2:00 PM EDT Office Visit [facility] Audiology [address], 3[address] [place] [address] Lottie Lund, AuD [address] [place] [address] 01/05/2026 11:00 AM EST Office Visit [facility] [address], [address] [place] [address] Vivian Macias, OD [address] [place] [address] documented as of this encounter Visit Diagnoses Not on filedocumented in this encounter Additional Health Concerns Infection Onset Date Last Indicated Resolved Time MRSA 03/30/2021 03/30/2021 documented as of this encounter Care Teams Showroom Salesperson Relationship Specialty Start Date End Date Rocky Almanzar MD [address] [place] [address] PCP - General 03/18/21 documented as of this encounter
--- OUTSIDE RECORDS SUMMARY | 2025-07-03 13:14 | XMS_ITS | Clinical Summary ---
Author Organization [facility] Address [address] [place] [address] Care Team Providers Care Bridge Inspector Name Role Phone Rocky Almanzar MD Primary Care Provider [phone] Allergies Active Allergy Reactions Criticality Noted Date [...] Type Department Care Team Description 06/30/2025 Refill [facility] Endocrinology [address] [place] [address] Jason Romero MD 05/04/2025 Refill [facility] Endocrinology [address] [place] [address] Jason Romero MD Type 2 diabetes mellitus with hyperglycemia, with long-term current use of insulin ([facility]) 04/28/2025 Telephone [facility] Endocrinology [address] [place] [address] Jason Romero MD 04/24/2025 Telephone [facility] Diabetes Education [address] [place] [address] Rocky Almanzar MD HCN - [...] EDT Office Visit [facility] Endocr[facility] [address] [place] [address] Melany Rosales, DO [address] [place] [address] 07/17/2025 2:00 PM EDT Office Visit [facility] Audiology [address] [place] [address] Lottie Lund, AuD [address] [place] [address] 01/05/2026 11:00 AM EST Office Visit [facility] [address], [address] [place] [address] Vivian Macias S, OD [address] [place] [address] Health Maintenance Due Date Last [...] A1C 03/17/202509/2025, 05/23/2024, 11/22/2023, Additional history exists [id number] Vaccine (7 - Moderna risk 2023- season) [...] this topic Medical Devices Implanted Type Area Historical Interpreter Device Identifier Shelf Expiration Date Model / Serial / Lot Roseline king Advantage Ci Hifocus 1j Electrode--06/05 Implanted:06/05 by Ky Del Rio MD (Quantity not on file) Cochlear Left: Ear [employer] [facility] [id number] / [id number] / Description:Roseline StanleyK Advant age CI HiFocus 1J electrode--cochlear implant by Dr. Del Rio at [facility] on 06/21/2017, operative note in Epic. LEFT EAR. Roseline ULTRA 3D Cochlear implant REF: [id number] Serial number: [id number] Procedures Procedure Name Priority Date/Time Associated Diagnosis [...] (Hb A1C) (12/16/2024 12:27 PM EST) Pathologist [facility] POCT Hemoglobin A1C 7.6 <5.7% Non-Diabet ic % [facility] Kit Lot Number [id number] [facility] Kit Expiration Date 10/04/26 [facility] Blood Venous blood specimen / Unknown 12/16/2024 12:27 PM EST Jason Romero MD POINT OF CARE TEST ENTER/ED IT ORDERABLES Final Result [facility] [address] [place] [address] * COLONOSCOPY (08/03/2017) Anatomical Region Laterality Modality [...] Last Indicated MRSA 03/30/2021 03/30/[address] [facility] MEDICARE EYEMED Care Teams Bridge Inspector Relationship Specialty Start Date End Date Rocky Almanzar MD [address] [place] [address] PCP - General 03/18/21
--- OUTSIDE RECORDS SUMMARY | 2025-07-03 13:14 | XMS_ITS | Encounter Summary ---
Author Organization Healthcare Address [address] [place] [address] Care Team Providers Care Mineralogy Professor Name Role Phone Rocky Almanzar MD Primary Care Provider [phone] Encounter Details Date Type Department Care Team (Late st Contact Info) Description 04/28/2025 Telephone [facility] Endocrinology [address] [place] [address] Jason Romero MD [address] [place] [address] Social History Tobacco Use [...] with Derek's phone number for refills from [employer]. Pt's was on the phone and was able to take appropriate notes. 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 No other questions at this time. * Telephone Encounter - MARYLIN DALAL - 04/28/2025 12:05 PM EDT Pt requesting a call back regarding his Leroy system not seeming to be working. documented in this encounter Plan of Treatment Upcoming Encounters Date Type Department Care Team (Late st Contact Info) Description 07/07/2025 11:40 AM EDT Office Visit [facility] Endocrinology [address] [place] [address] Melany Rosales, DO [address] [place] [address] 07/17/2025 2:00 PM EDT Office Visit [facility] Audiology [address] [place] [address] Lottie Lund, AuD [address] [place] [address] 01/05/2026 11:00 AM EST Office Visit [facility] [address], [address] [place] [address] Vivian Macias S, OD [address] [place] [address] documented as of this [...] documented as of this encounter Care Teams Mineralogy Professor Relationship Specialty Start Date End Date Rocky Almanzar MD [address] [place] [address] PCP - General 03/18/21 documented as of this encounter
--- OUTSIDE RECORDS SUMMARY | 2025-07-03 13:15 | XMS_ITS | Patient Health Record ---
Author Organization [facility] Address [address] [facility] 36 [facility] [address] [place] [id number] Care Team Providers Care Group Leader Wafer Polishing Name Role Phone Shauna Almanzar Primary Care Provider [phone] Emir Berger Unavailable [phone] Trinity Medeiros Unavailable [phone] Doretha Burns Unavailable [phone] Allergies Allergen (clinical drug ingredient) Drug/Non Drug [...] 5.5 Performing Lab: Notes/Report: Test performed by [facility] , [address], [place] [address] Kristian Trevino MD, Interventional Cardiologist CLIA: [id number] Sodium 139 135-145 mmol/L Potassium 3.7 3.5-5.3 [...] 695 Performing Lab: Notes/Report: Test performed by [facility] [address] [place] [address] , [address], [place] [address] Kristian Trevino MD, Interventional Cardiologist CLIA: [id number] Albumin/Creatinine Ratio, Urine 695 0-30 ug/mg Microalbumin, [...] 229 Performing Lab: Notes/Report: Test performed by [facility] [address] [place], [place] [email or web address] [place] , [address], [place] [address] Kristian Trevino MD, Interventional Cardiologist CLIA: [id number] Sodium 138 135-145 mmol/L Potassium 4.3 3.5-5.3 [...] 1.015 Ketone Neg Bili 1+ Gluc 2+ CBC Venipuncture (in house) Reviewed date:07/03/2025 12:46:28 [...] - 400 Glycohemoglobin A1c (in hous e) (Not yet reviewed by provider) Interpretation:6.9 Performing Lab: Notes/Report: 6.9 glycohemoglobin 6.9% 5 - 6.5 % H-BMP Reviewed date:09/15/2024 [...] 242 74-100 mg/dl CA 8.4 8.4-10.2 mg/dl Rapid Strep- Inhouse Reviewed date:09/16/2024 [...] Performing Lab: Notes/Report: chronic findings, nothing new CBC Venipuncture (in house) Reviewed date:06/10/2025 08:30:05 [...] 232 Performing Lab: Notes/Report: Test performed by [facility] [address] , [address], [place] [address] Kristian Trevino MD, Interventional Cardiologist CLIA: [id number] Sodium 141 135-145 mmol/L Potassium 3.0 3.5-5.3 [...] Interpretation:23 Performing Lab: Notes/Report: Test performed by [facility] [address] [place] [address] , [facility] [place] [address] Kristian Trevino MD, Interventional Cardiologist CLIA: [id number] Creatine Kinase 23 20-200 U/L A-E-Xhgptvie Protein (CRP) Reviewed date:06/10/2025 08:30:05 AM Interpretation:4.00 Performing Lab: Notes/Report: Test performed by [facility] [address] [place] [address] , [facility] [place] [address] Kristian Trevino MD, Interventional Cardiologist CLIA: [id number] C-Reactive Protein (CRP) 4.00 <0.50 mg/dL P-Sed Rate (ESR) Reviewed date:06/10/2025 08:30:05 AM Interpretation:31 Performing Lab: Notes/Report: Test performed by [facility] [address] [place] [address] [place] [address] Kristian Trevino MD, Interventional Cardiologist CLIA: [id number] Erythrocyte Sedimentation Rate (ESR), Automated 31 <21 mm/hr P-TSH reflex to FT4 Reviewed date:06/10/2025 08:30:05 AM Interpretation:Normal Performing Lab: Notes/Report: Test performed by [facility] [address] [place] [address] , [address], [place] [address] Kristian Trevino MD, Interventional Cardiologist CLIA: [id number] TSH reflex to FT4 3.44 0.43-5.25 mU/L P-Vitamin D 25-Hydroxy Reviewed date:06/10/2025 08:30:05 AM Interpretation:Normal Performing Lab: Notes/Report: Test performed by [facility] , [address], [place] [address] Kristian Trevino MD, Interventional Cardiologist CLIA: [id number] Vitamin D 25-Hydroxy 57.8 30.0-100.0 ng/mL Interpretation of Vitamin D 25 OH: < 20 ng/mL - Deficiency 20 - 29 ng/mL - Insufficiency 30 - 100 ng/mL - Sufficiency > 100 ng/mL - Super-therapeutic- toxicity may occur above this level. Clinical correlation required. H-CBC Reviewed date:08/26/2024 02:54:53 PM Interpretation: Performing [...] AM Interpretation:cl 109, co2 21, bun 25, [id number] Performing Lab: Notes/Report: NA 137 136-145 mmol/L [...] igor l Orally Twice a day Active Warfarin Sodium 6 MG 1 tablet Orally Onc e a day; Duration: 30 day(s) Active FreeStyle Leroy 3 Plus Sensor - replace sensor every 14 days; Duration: 28 days 05/12/2025 Not-Taking Mycophenolate Mofetil 500 MG 1 tablet Orally Twice a day; Duration: 30 day(s) Active Cholecalciferol 25 MCG (1000 UT) 1 capsule Orally Once a day; Duration: 30 day(s) Active Budesonide 3 MG 1 Orally at bedtime Not-Taking Jardiance 10 mg 1 tablet Orally ever y other day; Duration: 90 days Active Voriconazole 200 MG 1 tablet 1 hour before or 1 hour after meals Orally every 12 hrs Active Ipratropium-Albuterol 0.5-2.5 (3) MG/3ML 3 mL as needed Inhalation every 6 hrs Active FreeStyle Leroy 3 Marion - as directed 05/12/2025 Not-Taking Mirtazapine 15 mg TAKE ONE TABLET BY MOUTH EVERY DAY AT BEDTIME; Duration: 30 Active Potassium Chloride ER 20 MEQ 1 tablet with food Orally Once a day; Duration: 30 days 06/10/2025 Active Levothyroxine Sodium 50 mcg 1 tablet by mouth daily; Duration: 90 days Active Immunizations Vaccine Route Administration Date Status [...] W/U Status Risk Notes Problem Essential hypertension (87610759) Essential (primary) hypertension (I10) Active confirmed Problem Vitamin D deficiency (40525354) Vitamin D deficiency (E55.9) Active confirmed Problem Essential hypertension (63892229) Essential hypertension (I10) Active confirmed Problem Screening for malignant neoplasm of prostate (785954912) Prostate cancer screening (Z12.5) Active confirmed Problem Anorexia (99862012) Anorexia (R63.0) Active con firmed Problem Paroxysmal atrial fibrillation (685718752) Paroxysmal atrial fibrillation (I48.0) Active confirmed Problem Hyperglycemia due to type 2 diabetes mellitus (016057861602905) Type 2 diabetes mellitus with hyperglycemia (E11.65) Active confirmed Problem Mixed hyperlipidemia (216223766) Mixed hyperlipidemia (E78.2) Active confirmed Problem Hyperlipidemia (07527315) Hyperlipidemia, unspecified (E78.5) Active confirmed Problem Hereditary hemochromatosis (31643333) 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) Active confirmed Problem Chronic respiratory failure (59988655) Chronic respiratory failure with hypoxia (J96.11) Active confirmed Problem Autoimmune hepatitis (319605363) Autoimmune hepatitis (K75.4) Active confirmed Problem Cholelithiasis without obstruction (48551178) Calculus of gallbladder without cholecystitis without obstruction (K80.20) Active confirmed Problem Cochlear implant status (Z96.21) Active confirmed Problem Male erectile disorder (730811242) Male erectile disorder (N52.9) Active confirmed Problem Long-term current use of insulin (065415924) nursing home (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 (Z79.4) Active confirmed Problem Type II diabetes mellitus without complication (287332004) Type 2 diabetes mellitus without complication (E11.9) Active confirmed Problem Acquired hypothyroidism (679626541) Acquired hypothyroidism (E03.9) Active confirmed Problem Pulmonary fibrosis (20167266) Pulmonary fibrosis (J84.10) Active confirmed Problem Chronic fatigue syndrome (69699186) Chronic fatigue (R53.82) Active confirmed Problem COPD - Chronic obstructive pulmonary disease (95537424) Chronic obstructive pulmonary disease, unspecified COPD type (J44.9) Active confirmed Problem Pneumonia (730718668) Pneumonia of right lower lobe due to infectious organism (J18.9) Active confirmed Problem Hearing loss (47760420) Hearing loss, bilateral (H91.93) Active confirmed Problem Disorder of adrenal gland (93467121) 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) Active confirmed Problem Neutropenia (275830078) Neutropenia, unspecified type (D70.9) Active confirmed Problem Interstitial lung disease (755958816) Interstitial lung disease (J84.9) Active confirmed Problem Seasonal allergic rhinitis (260900208) Seasonal allergic rhinitis, unspecified allergic rhinitis trigger (J30.2) Active confirmed Problem Granulocytopenia (208892844) 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 confirmed Problem Systemic lupus erythematosus (50856392) Lupus (systemic lupus erythematosus) (M32.9) Active confirmed Problem Cardiac arrhythmia (688810466) Cardiac arrhythmia, unspecified cardiac arrhythmia type (I49.9) Active confirmed Problem Malnutrition, calorie (792265108) Caloric malnutrition (E46) Active confirmed Problem Benign prostatic hypertrophy without outflow obstruction (806486174) BPH without urinary obstruction (N40.0) Active confirmed Problem Allergic rhinitis caused by pollen (01883769) Acute seasonal allergic rhinitis due to pollen (J30.1) Active confirmed Problem Sensorineural hearing loss, bilateral (929968487) Sensorineural hearing loss (SNHL) of both ears (H90.3) Active confirmed Problem Cholestatic hepatitis (05136603) Cholestatic hepatitis (K75.89) Active confirmed Problem Skin sensation disturbance (29096113) Sensitive skin (R20.3) Active confirmed Problem Dilatation of aorta (38566582) Dilatation of aorta (I77.819) Active confirmed Problem Tomography - chest abnormal (617963795) Abnormal CT scan, chest (R93.89) Active confirmed Problem Left atrial dilatation (761250087) Left atrial dilatation (I51.7) Active confirmed Problem Chronic vascular insufficiency of intestine (585948692) 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 Problem Protein malnutrition (50701537) Protein malnutrition (E46) Active confirmed Vital Signs Heart Rate 101 /min 07/03/2025 Blood pressure diastolic 70 mm Hg 07/03/2025 Height 65 in 07/03/2025 Blood pressure systolic 124 mm Hg 07/03/2025 Weight 128.0 lbs 07/03/2025 BMI 21.3 kg/m2 07/03/2025 Encounters Encounter Location Date Provider [facility] [address] [id number] 09/05/2024 Shauna Almanzar Pneumonia of left lo wer lobe due to infectious organism J18.9 ; Interstitial lung disease J84.9 ; Chronic respiratory failure with hypoxia J96.11 ; 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 ; Autoimmune hepatitis K75.4 ; Protein malnutrition E46 and Caloric malnutrition E46 [facility] [address] [place] [id number] 09/16/2024 Trinity Medeiros Strep pharyngitis J0 2.0 and Oral candidiasis B37.0 [facility] [address] [place] [address] [place], [place] [id number] 10/09/2024 Shauna Almanzar Lesion of adrenal gl and E27.9 ; Essential hypertension I10 ; Type 2 diabetes mellitus without complication E11.9 ; Acquired hypothyroidism E03.9 ; Hearing loss, bilateral H91.93 ; Cochlear implant status Z96.21 ; Protein malnutrition E46 ; Chronic obstructive pulmonary disease, unspecified COPD type J44.9 and Encounter for immunization Z23 [facility] [address] [place], [place] [id number] 11/03/2024 Emir Currie Acute cough R05.1 [facility] [address] [place], [place] [id number] 11/07/2024 Shauna Almanzar Type 2 diabetes aquilino itus without complication E11.9 ; Acquired hypothyroidism E03.9 and Hereditary hemochromatosis E83.110 [facility] [address] [place] [id number] 01/09/2025 Shauna Almanzar Type 2 diabetes aquilino itus without complication E11.9 ; Hereditary hemochromatosis E83.110 ; Cochlear implant status Z96.21 ; Chronic obstructive pulmonary disease, unspecified COPD type J44.9 ; Essential (primary) hypertension I10 ; Protein malnutrition E46 and Gross hematuria R31.0 [facility] [address] [place], [place] [id number] 01/15/2025 Shauna Almanzar Interstitial lung disease J84.9 ; 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 ; Autoimmune hepatitis K75.4 ; Protein malnutrition E46 ; Cochlear implant status Z96.21 ; Type 2 diabetes mellitus without complication E11.9 and Hematuria R31.9 [facility] [address] [place], [place] [id number] 02/11/2025 Emir Currie Type 2 diabetes aquilino itus with hyperglycemia E11.65 ; exterminator (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.4 ; Gross hematuria R31.0 and Body mass index (BMI) of 19.0 to 19.9 in adult Z68.1 [facility] [address] [place], [place] [id number] 03/13/2025 Doretha Burns Drug interaction Z78 .9 [facility] [address] [place] [facility] [address] [place] [id number] 04/02/2025 Shauna Almanzar Type 2 diabetes aquilino itus without complication E11.9 ; 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 ; Cholestatic hepatitis K75.89 ; nursing home (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.4 ; 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 ; Generalized weakness R53.1 and BMI 20.0-20.9, adult Z68.20 [facility] [address] [place] [facility] [address] [place], [place] [id number] 04/30/2025 Shauna Almanzar Type 2 diabetes aquilino [...] adult Z68.22 and Cochlear implant status Z96.21 [facility] [address] [facility] 36 [address] [place] [id number] 06/09/2025 Emir Berger Generalized weakness R53.1 ; Anorexia R63.0 and Vitamin D deficiency E55.9 [facility] [address] [place] [facility] [address] [place] [id number] 07/03/2025 Shauna Almanzar Hypokalemia E87.6 ; Essential hypertension I10 ; Chronic fatigue R53.82 ; Protein malnutrition E46 ; Type 2 diabetes mellitus with hyperglycemia E11.65 ; nursing home (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.4 ; 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 and 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 [facility] [place] [facility] [address] [place] [id number] 06/10/2025 Shauna Almanzar [facility] [address] [place] [id number] 09/01/2024 Shauna Almanzar [facility] [address] [place], [place] [id number] 09/04/2024 J Rogerio Almanzar [facility] [address] [place], [place] [id number] 09/08/2024 J Rogerio Almanzar [facility] [address] [place], [place] [id number] 09/10/2024 J Rogerio Almanzar [facility] [address] [place], [place] [id number] 09/15/2024 J Rogerio Almanzar [facility] [address] [place], [place] [id number] 09/16/2024 J Rogerio Almanzar [facility] [address] [place], [place] [id number] 09/25/2024 J Rogerio Almanzar [facility] [address] [place], [place] [id number] 11/03/2024 Emir Currie [facility] [address] [place], [place] [id number] 01/12/2025 J Rogerio Almanzar [facility] [address] [place], [place] [id number] 05/12/2025 J Rogerio Almanzar [facility] [address] [place], [place] [id number] 05/12/2025 J Rogerio Almanzar [facility] [address] [place], [place] [id number] 06/04/2025 J Rogerio Almanzar [facility] [address] [place], [place] [id number] 06/10/2025 Emir Currie [facility] [address] [place], [place] [id number] 06/23/2025 Shauna Almanzar Colon cancer screeni Z12.11 [...] to resume use of his CGM 02/11/2025 nursing home (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 (ICD-10 [...] 06/23/2025 Colon cancer screening (ICD-10 - Z12.11) 07/03/2025 Hypokalemia (ICD-10 - E87.6) 07/03/2025 Essential hypertension (ICD-10 - I10) 04/30/2025 Adrenal abnormality (ICD-10 - E27.9) 07/03/2025 Chronic fatigue (ICD-10 - R53.82) 06/09/2025 Vitamin D deficiency (ICD-10 - E55.9) 04/02/2025 Adrenal abnormality (ICD-10 - E27.9) 02/11/2025 Gross hematuria (ICD-10 - R31.0) Plan follow up with Dr. 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 (ICD-10 - [...] 10/09/2024 Cochlear implant status (ICD-10 - Z96.21) 07/03/2025 nursing home (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 (ICD-10 - Z79.4) 04/02/2025 Histoplasmosis (ICD-10 - B39.9) 04/30/[address] scan, chest (ICD-10 - R93.89) 07/03/2025 Histoplasmosis (ICD-10 - B39.9) 04/30/2025 Calculus of gallbladder without cholecystitis without [...] Z68.20) 04/30/2025 Hereditary hemochromatosis (ICD-10 - E83.110) 07/03/2025 Adrenal abnormality (ICD-10 - E27.9) 04/30/2025 Paroxysmal atrial fibrillation (ICD-10 - I48.0) [...] Treatment Pending Test Test Name Order Date Glycohemoglobin A1c (in house) Cologuard 06/23/2025 H-TSH 11/07/2024 P-Basic Metabolic Panel (BMP) 07/03/2025 P-Cortisol, Random 07/03/2025 P-Iron 07/03/2025 P-TSH 07/03/2025 Next Appt Details [facility]/06/[facility] 03:34:00 PM, [address] [facility] 36 [facility], [address], [place], [id number], Provider Name:Shauna Merida , 08/07/2025 11:00:00 AM, [address] [facility] [address] [facility], [address], [place], [id number], Insurance Providers Payer Name Payer Address Payer Phone Subscriber Number Group Number Insured Name Patient Relationship to Insured Coverage Start Date Coverage End Date [facility] [address] [address] [place] [id number] HERMILA GOLDEN Self - patient is the insured Medical (General) History Medical History History ICD Code Seasonal Allergies Kidney Stones Steatohepatitis hemachromatosis,(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 Smalls and Dr. Thakur Atrial dysrrhythmia, see [facility] notes 2012 hearing loss 2013, hearing aids Impaired fasting glucose Gets yearly eye exams, 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
[2025-07-03 13:55] LABS: PHA INR Fingerstick 2.1 (0.9-1.1)
== END 2025-07-03 13:56 ==
LOC: ACC 13:12
PROVIDERS: PCP Family Medicine; Visit Provider Nurse Practitioner
DX: I48.0 Paroxysmal atrial fibrillation (principal)
CPT/HCPCS: 85610; 99211; G0463

== ENCOUNTER 2025-07-08 09:08 | Outpatient (CLI) | payer MEDICARE, SELFPAY ==
--- OUTSIDE RECORDS SUMMARY | 2025-04-02 10:15 | XMS_ITS ---
Author Organization [facility] Address 1210 [facility] [address] [phone] Care Team Providers Care Pot Room Tapper Name Role Phone Shauna Almanzar Primary Care Provider [phone] Allergies Allergen (clinical drug ingredient) Drug/Non Drug [...] 5.5 Performing Lab: Notes/Report: Test performed by [employer] [facility] , [address], [place] [address] Kristian Trevino MD, Conference Services Coordinator CLIA: [id number] Sodium 139 135-145 mmol/L Potassium 3.7 3.5-5.3 [...] 695 Performing Lab: Notes/Report: Test performed by [facility] [address] [place] [address] , [address], [place] [address] Kristian Trevino MD, Conference Services Coordinator CLIA: [id number] Albumin/Creatinine Ratio, Urine 695 0-30 ug/m g [...] Grigsby 05/18/2025 02:47:51 PM > faxed to [facility] PT Referral Priority Routine REASON FOR [...] 04/02/2025 Encounters Encounter Location Date [facility] 12[facility] [address] [id number] 04/02/2025 Shauna Almanzar Type 2 diabetes aquilino itus without complication E11.9 ; 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 ; Cholestatic hepatitis K75.89 ; 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.4 ; 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[id number]:04/02/2025 Progress Notes Patient: HERMILA BUCIO Provider: Shauna Almanzar M.D. :1950 A ge:75 Y S ex:Male Date:04/02/2025 Address:[address] [place] [address] 32 , [id number] Subjective: * Chief Complaints: * 1 . 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 * Procedure Codes: G2211 Complex e/[place]. [address] GLYCATED HEMOGLOBIN TEST. Modifiers: QW G8752 MOST RECENT SYSTOLIC BP < 140MM HG. G8754 MOST RECENT DIASTOLIC BP < 90MM HG. 3046F HEMOGLOBIN A1C LEVEL > 9.0%. G8420 BMI<30 AND >=22 CALC & DOCU. 1036F TOBACCO NON-USER. 3017F COLORECTAL CA SCREEN DOC REV. * Electronic signature of Shauna Almanzar MD on 07/08/2025 at 09:24 AM EDT Sign off status: Pending * Provider: Shauna Almanzar M.D. Date: 0 04/02/2025 Generated for Collinsi kelly/Rei/eTransmitting on: 0 07/08/2025 09:24 AM EDT History and Physical Notes * [...]
--- OUTSIDE RECORDS SUMMARY | 2025-04-30 10:00 | XMS_ITS ---
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) Referral Organization [facility] Referring Provider First Name Shauna Beatty Referring [...] W/U Status Risk Notes Problem Cardiac arrhythmia (432558078) Cardiac arrhythmia, unspecified cardiac arrhythmia type (I49.9) Active confirmed Problem Chronic vascular insufficiency of intestine (339419216) 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 Vital Signs Weight 133.8 lbs 04/30/2025 Blood pressure systolic 130 mm Hg 04/30/20 25 Blood pressure diastolic 62 mm Hg 025 Heart Rate 85 /min 04/30/2025 Height 65 in 04/30/2025 BMI 22.26 kg/m2 04/30/2025 Encounters Encounter Location Date Provider Diagnosis [facility] [facility] [address] [id number] 04/30/2025 Shauna Almanzar Type 2 diabetes aquilino itus with hyperglycemia E11.65 ; 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 :1950 A ge:75 Y S ex:Male Date:04/30/2025 Address:[address] [facility] 32 , [facility] Subjective: * Chief Complaints: * 1 [...] artery stenosis - K55.1 1 2. B [place] 22.0-22.9, adult - Z68.22 1 3. C [...] * Images: Billing Information: * Visit Code: 81089 Office Visit, Est Pt., Level 4. * [...] 04/30/2025 Generated for Printi ng/Faxing/eTransmitting on: 0 07/08/2025 09:24 AM EDT History [...]
--- OUTSIDE RECORDS SUMMARY | 2025-06-09 06:00 | XMS_ITS ---
Author Organization [facility] Address 1210 [facility] [address] [id number] Care Team Providers Care Undertaker Helper Name Role Phone Shauna Almanzar Primary Care Provider Emir Berger Unavailable [phone] Allergies Allergen (clinical drug ingredient) Drug/Non Drug [...] 232 Performing Lab: Notes/Report: Test performed by [employer] [facility]0 [facility] , [address], [place] [address] Kristian Trevino MD, Staff Combat Information Center Officer CLIA: [id number] Sodium 141 135-145 mmol/L Potassium 3.0 3.5-5.3 [...] Interpretation:23 Performing Lab: Notes/Report: Test performed by [employer] [address] , [facility], [place] [address] Kristian Trevino MD, Staff Combat Information Center Officer CLIA: [id number] Creatine Kinase 23 20-200 U/L G-Z-Whgdnmds Protein (CRP) Reviewed date:06/10/2025 08:30:05 AM Interpretation:4.00 Performing Lab: Notes/Report: Test performed by [employer] [address] , [address], [place] [address] Kristian Trevino MD, Staff Combat Information Center Officer CLIA: [id number] C-Reactive Protein (CRP) 4.00 <0.50 mg/dL P-Sed Rate (ESR) Reviewed date:06/10/2025 08:30:05 AM Interpretation:31 Performing Lab: Notes/Report: Test performed by [employer] [address] [place] [address] , [address], [place] [address] Kristian Trevino MD, Staff Combat Information Center Officer CLIA: [id number] Erythrocyte Sedimentation Ra te (ESR), Automated 31 <21 mm/hr P-TSH reflex to FT4 Reviewed date:06/10/2025 08:30:05 AM Interpretation:Normal Performing Lab: Notes/Report: Test performed by [employer] [address] [place] [address] , [address], [place] [address] Kristian Trevino MD, Staff Combat Information Center Officer CLIA: [id number] TSH reflex to FT4 3.44 0.43-5.25 mU/L P-Vitamin D 25-Hydroxy Reviewed date:06/10/2025 08:30:05 AM Interpretation:Normal Performing Lab: Notes/Report: Test performed by [employer] [address] [place] [address] , [address], [place] [address] Kristian Trevino MD, Staff Combat Information Center Officer CLIA: [id number] Vitamin D 25-Hydroxy 57.8 30.0-100.0 ng/mL Interpretation [...] Duration: 90 days Active FreeStyle Leroy 3 [place] - as directed 05/12/2025 Not-Taking Levothyroxine Sodium [...] Encounter Location Date Provider Diagnosis [facility] 1210 [facility] 36 [facility] [address] [place] [id number] 06/09/2025 Emir Berger Generalized weakness R53.1 ; [...] Name:Shauna Merida er, 08/07/2025 11:00:00 AM, 1210 [facility] 36 Psychiatric, [address], [place], [id number], Progress Notes * HERMILA GOLDENOB: [birth year] (75 yo M)Acc No.[id number]:06/09/2025 Progress Notes Patient: HERMILA BUCION Provider: Jaden Berger M.D. :1950 A ge:75 Y S ex:Male Date:06/09/2025 Address:[address] [place] [address], [facility] [...] mouth daily , Not-Taking FreeStyle Leroy 3 [place] - Device as directed , Not-Taking FreeStyle [...] AM EDT > See phone encounter ?LAB: R-W-Ptpaszlj Protein (CRP) (Collection Date & Time - [...] G 2211 Complex e/[place], [address] CBC WITH AUTO DIFF, 1036F TOBACCO NON-USER, G8783 BP SCR PRFRM RCMDD DEFIND SCR INTVL, G8752 MOST RECENT SYSTOLIC BP < 140MM HG, G8754 MOST RECENT DIASTOLIC BP < 90MM HG * Follow Up: v ia phone to report test results * Images: Billing Information: * Visit Code: 62188 Office Visit, Est Pt., Level 4. * Procedure Codes: G2211 Complex e/[place]. [address] CBC WITH AUTO DIFF. 1036F TOBACCO NON-USER. G8783 BP SCR PRFRM RCMDD DEFIND SCR INTVL. G8752 MOST RECENT SYSTOLIC BP < 140MM HG. G8754 MOST RECENT DIASTOLIC BP < 90MM HG. * Electronic signature of Elidia Berger MD on 07/08/2025 at 09:25 AM EDT Sign off status: Pending * Provider: Jaden Berger M.D. Date: 06/09/2025 Generated for Marissa mendoza/Rei/Johnsmitting on: 0 07/08/2025 09:25 AM EDT History and Physical Notes * [...]
--- OUTSIDE RECORDS SUMMARY | 2025-06-15 11:23 | XMS_ITS ---
Author Organization [facility] Address [address] [place] [address] [place] [address] Phone Care Team Providers Care Dancing Master Name Role Phone Sukumar CUEVAS, Rocky Griggs [ ] Conditions or Problems No information available. Medications Medication Instructions Start Date Stop Date Generic Name [facility] Provider MINOCYCLINE HCL 100 MG CAPS 1 capsule by mouth twice a day Take one twice a day for three days then only take 1 once a day 1 minocycline [id number] Rocky Patino MD budesonide 3 mg by [...] Detail Appointment 11:00 AM Rocky Patino MD, [facility], [address], [place], [address], Pending order New Oral Antibio tic Pending [...]
--- OUTSIDE RECORDS SUMMARY | 2025-06-23 07:29 | XMS_ITS ---
Author Organization [facility] Address [address] [place] [phone] Care Team Providers Care Farm Hand Name Role Phone Shauna Almanzar Primary Care Provider REASON FOR VISIT due col Encounters Encounter Location Date Provider Diagnosis [facility] [facility] [address] [place], [place] [phone] 06/23/2025 Shauna Almanzar Colon cancer screening Z12.11 Assessments Encounter Date Diagnosis (ICD Code) Assessment Notes Treatment Notes Treatment Clinical Notes Section Notes 06/23/2025 Colon cancer screening (ICD-10 - Z12.11) Plan Of Treatment Pending Test Test Name Order Date Cologuard 06/23/2025 Next Appt Details Provider Name:Shauna Merida er, 08/07/2025 11:00:00 AM, [address], [address], [place], [place], [phone], Progress Notes * HERMILA GOLDENOB: [birth year] (75 yo M)Acc No.[id number]:06/23/2025 Patient: Daniele HERMILA SALAS :1950 A ge:75 Y S ex:Male Address:[address], [place] [address] Subjective: * Chief Complaints: * D ue col * Medical History: * Surgical History: * Hospitalization/Major Diagno stic Procedure: * Medications: Objective: * Vitals: * Physical Examination: Assessment: * Assessment: 1. C [facility] cancer screening - Z12.11 (Primary) Plan: * Treatment: * Procedure Codes: * true * Date: Generated for Marissa mendoza/Rei/Jeremiah on: 0 07/08/2025 09:24 AM EDT
--- OUTSIDE RECORDS SUMMARY | 2025-07-03 07:45 | XMS_ITS ---
Author Organization [facility] Address 1210 [facility] [address] [phone] Care Team Providers Care Short Story Writer Name Role Phone Shauna Almanzar Primary Care Provider [phone] Allergies Allergen (clinical drug ingredient) Drug/Non Drug [...] 175 Performing Lab: Notes/Report: Test performed by [email or web address]0 [facility] , [address], [place] [address] Kristian Trevino MD, Manufacturing Test Technician CLIA: [id number] Sodium 140 135-145 mmol/L Potassium 4.1 3.5-5.3 mmol/L Chloride 105 97-108 mmol/L CO2 22 20-32 mmol/L Glucose 175 65-99 mg/dL BUN 12 8-23 mg/dL Creatinine 1.26 0.70-1.30 mg/dL Calcium 9.4 8.6-10.4 mg/dL eGFR by Creatinine 60 >59 mL/min/1.73m2 P-Cortisol, Random Reviewed date:07/07/2025 10:18:42 AM Interpretation: Normal Performing Lab: Notes/Report: Test performed by [employer] [address] [place] [address] , [place] [address] Kristian Trevino MD, Manufacturing Test Technician CLIA: [id number] Cortisol, Random 7.7 CORTISOL REFERENCE RANGE AM Serum: 6.0-18.4 ug/dL PM Serum: 2.7-10.5 ug/dL P-Iron Reviewed date:07/07/2025 10:18:42 AM Interpretation:28 Performing Lab: Notes/Report: Test performed by [employer] [address] [place] [address] , [address], [place] [address] Kristian Trevino MD, Manufacturing Test Technician CLIA: [id number] Iron 28 59-158 ug/dL P-TSH Reviewed date:07/07/2025 10:18:42 AM Interpretation:6.42 Performing Lab: Notes/Report: Test performed by [employer] [address] [place] [address] , [address], [place] [address] Kristian Trevino MD, Manufacturing Test Technician CLIA: [id number] TSH 6.42 0.43-5.25 mU/L REASON FOR VISIT [...] Duration: 90 days Active FreeStyle Leroy 3 [place] - as directed 05/12/2025 Not-Taking Mirtazapine 15 [...] Encounter Location Date Provider [facility] 1210 [facility] [address] [id number] 07/03/2025 Shauna Almanzar Hypokalemia E87.6 ; Essential hypertension I10 ; Chronic fatigue R53.82 ; Protein malnutrition E46 ; Type 2 diabetes mellitus with hyperglycemia E11.65 ; watermelon inspector (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.4 ; 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 and 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 Assessments Encounter Date Diagnosis (ICD Code) Assessment Notes Treatment Notes Treatment Clinical Notes Section Notes 07/03/2025 Hypokalemia (ICD-10 - E87.6) 07/03/2025 Essential hypertension (ICD-10 - I10) 07/03/2025 Chronic fatigue (ICD-10 - R53.82) 07/03/2025 Protein malnutrition (ICD-10 - E46) 07/03/2025 Type 2 diabetes mellitus with hyperglycemia (ICD-10 - E11.65) 07/03/2025 watermelon inspector (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 (ICD-10 - Z79.4) [...] Name:Shauna Merida er, 08/07/2025 11:00:00 AM, 1210 [facility] [address], [address], [place], [place], [id number], Progress Notes * HERMILA GOLDENJORGEOB: [birth year] (75 yo M)Acc No.[id number]:07/03/2025 Progress Notes Patient: HERMILA BUCIO Provider: Shauna Almanzar M.D. :1950 A ge:75 Y S ex:Male Date:07/03/2025 Address:[address] [place] [address] 32 , [facility] Subjective: * Chief Complaints: * 1 . [...] at bedtime , Not-Taking FreeStyle Leroy 3 [place] - Device as directed , Not-Taking FreeStyle [...] * Images: Billing Information: * Visit Code: 27161 Office Visit, Est Pt., Level 4. * Procedure Codes: * Electronic signature of Shauna Almanzar MD on 07/08/2025 at 09:24 AM EDT Sign off status: Pending * Provider: Shauna Almanzar M.D. Date: 0 07/03/2025 Generated for Marissa mendoza/Fadavidg/eTransmitting on: 0 07/08/2025 09:24 AM EDT History [...]
--- OUTSIDE RECORDS SUMMARY | 2025-07-07 11:40 | XMS_ITS | Encounter Summary ---
Author Organization [facility] Address [address] [place] [address] Care Team Providers Care Aquaculture And Fisheries Professor Name Role Phone Rocky Almanzar MD Primary Care Provider [phone] Reason for Referral * Consultation (Routine) - Authorized Specialty Diagnoses / Procedures Referred By Contac t Referred To Contact Diagnoses Type 2 diabetes mellitus with hyperglycemia, with long-term current use of insulin (CMS/HCC) Hemochromatosis, unspecified hemochromatosis type Acquired hypothyroidism Histoplasmosis Melany Rosales DO [address] [address] Phone: tel: fax: Referral ID Status Reason Start Date Expiration Date V isits Requested Visits Authorized [id number] Authorized 07/07/2025 01/06/2027 1 1 Encounter Details Date Type Department Care Team (Late st Contact Info) Description 07/07/2025 11:40 AM EDT Office Visit [facility] Endocrinology [address] [place] [phone] Melany Rosales DO [address] [address] Type 2 diabetes mellitus with hyperglycemia, with long-term current use of insulin (CMS/HCC) (Primary Dx); Hemochromatosis, unspecified hemochromatosis type; Acquired hypothyroidism; Histoplasmosis Social History Tobacco Use Types Packs/Day Years [...] AM EDT Spoke with pt about connecting [facility] to [facility]. Pt does have ahmet on phone, but has not created profile or used a login to be able to share with [facility]. Provided pt with instructions on how to share once he gets home and sets up profile with password. Provided pt with Adult educators phone number should he have additional questions. Bev Barclay, MS, RD, LD, CDCES, MLDE * Progress Notes - Melany Rosales DO - 07/07/2025 11:40 AM EDT Subjective [...] and decreased strength. He sees GI at [place]. He had been having glucoses >350. He [...] hyperglycemia, with long-term current use of insulin ([facility]) (Primary) - POCT glycosylated hemoglobin (Hb A1C) [...] and/or coordination of care. Electronically signed by: Melany Rosales DO [facility] ENDOCRINOLOGY [address] [facility] [address] [address] [place]. [address] PHONE [phone] FAX: [phone] documented in this encounter Plan of Treatment Upcoming Encounters Date Type Department Care Team (Late st Contact Info) Description 07/17/2025 2:00 PM EDT Office Visit [facility] Audiology [address] [place] [address] Lottie Lund, AuD [address] [place] [address] 01/05/2026 9:40 AM EST Office Visit [facility] Endocrinology [address] [place] [address] Melany Rosales DO [address] [facility] [address] [place] [address] 01/05/2026 11:00 AM EST Office Visit [facility] Eye [place] [address] [place] [address] Vivian Macias, OD [address] [place] [address] Scheduled Orders Name Type Priority Associated Diagnoses Orde r Schedule Cortisol Lab Routine Histoplasmosis Expected: 07/07/2025 (Approximate), Expires: 07/07/2026 ACTH Lab Routine Histoplasmosis Expected: 07/07/2025 (Approximate), Expires: 07/07/2026 Albumin-creatinine ratio, urine, random Lab Routine Type 2 diabetes mellitus with hyperglycemia, with long-term current use of insulin ([facility]) Expected: 07/07/2025 (Approximate), Expires: 07/07/2026 Lipid panel Lab Routine Type 2 diabetes mellitus with hyperglycemia, with long-term current use of insulin ([facility]) Expected: 07/07/2025 (Approximate), Expires: 07/07/2026 TSH Lab Routine Acquired hypothyroidism Expected: 07/07/2025 (Approximate), Expires: 07/07/2026 T4, free Lab Routine Acquired hypothyroidism Expected: 07/07/2025 (Approximate), Expires: 07/07/2026 Scheduled Referrals Name Type Priority Associated Diagnoses Orde r Schedule Follow Up [facility] Outpatient Referral Routine Type 2 diabetes mellitus with hyperglycemia, with long-term current use of insulin ([facility]) Hemochromatosis, unspecified hemochromatosis type Acquired hypothyroidism Histoplasmosis Expected: 01/04/2026, Expires: 01/08/2027 documented as of this encounter Procedures Procedure Name Priority Date/Time Associated Diagnosis Comments POCT GLYCOSYLATED HEMOGLOBIN (HGB A1C) Routine 07/07/2025 12:03 PM EDT Type 2 diabetes mellitus with hyperglycemia, with long-term current use of insulin ([facility]) documented in this encounter Results * POCT glycosylated hemoglobin (Hb A1C) (07/07/2025 12:03 PM EDT) POCT Hemoglobin A1C 6.7 <5.7% Non-Diabet ic % [facility] Kit Lot Number [id number] [facility] Kit Expiration Date 04/2027 [facility] Blood Venous blood specimen / Unknown 07/07/2025 12:03 PM EDT us Melany Rosales DO POINT OF CARE TEST ENTER/ED IT ORDERABLES Edited Result - Final [facility] [address] [place] [address] documented in this encounter Visit Diagnoses Diagnosis Type 2 diabetes mellitus with hyperglycemia, with long-term current use of insulin ([facility])- Primary Hemochromatosis, unspecified hemochromatosis type Acquired hypothyroidism Unspecified hypothyroidism Histoplasmosis documented in this encounter Additional Health Concerns Infection Onset Date Last Indicated Resolved Time MRSA 03/30/2021 03/30/2021 Assessment Noted Time A fall risk assessment has been complete d for the patient 07/07/2025 12:00 PM EDT A Body Mass Index follow-up plan has been documented for the patient 07/07/2025 12:40 PM EDT documented as of this encounter Care Teams Aquaculture And Fisheries Professor Relationship Specialty Start Date End Date Rocky Almanzar MD [address] [place] [address] PCP - General 03/18/21 documented as of this encounter
--- OUTSIDE RECORDS SUMMARY | 2025-07-08 09:24 | XMS_ITS | Encounter Summary ---
Author Organization Healthcare Address [address] [place] [address] Care Team Providers Care Lead Programmer Name Role Phone Rocky Almanzar MD Primary Care Provider [phone] Reason for Visit * Reason Comments Med Refill Encounter Details Date Type Department Care Team (Late Contact Info) Description 05/20/2021 Refill [facility] Endocrinology [address] [place] [address] Jason Romero MD [address] [facility] [address] [place] [address] Social History Tobacco Use Types [...] Description 07/17/2025 2:00 PM EDT Office Visit [facility] Audiology [address] [place] [address] Lottie Lund, AuD [address] [place] [address] 01/05/2026 9:40 AM EST Office Visit [facility] Endocrinology [address] [place] [address] Melany Rosales, DO [address] [facility] [address] [place] [address] 01/05/2026 11:00 AM EST Office Visit [facility] [address], [address] [place] [address] Vivian Macias, OD [address] [place] [address] documented as of this encounter Visit Diagnoses Not on filedocumented in this encounter Additional Health Concerns Infection Onset Date Last Indicated Resolved Time 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
--- OUTSIDE RECORDS SUMMARY | 2025-07-08 09:24 | XMS_ITS | Clinical Summary ---
[facility] Address [address] [place] [address] Care Team Providers Care Sound Assistant Name Role Phone Provider, No Known Primary [...] 08/15/2016 AAA SCREEN ONCE Completed 12/07/2016 Insurance [facility] [employer] PPO Care Teams Sound Assistant Relationship Specialty Start Date End Date Provider, No Known [facility] [address] PCP - General 01/14/25
--- OUTSIDE RECORDS SUMMARY | 2025-07-08 09:24 | XMS_ITS | Encounter Summary ---
Author Organization Healthcare Address [address] [place] [address] Care Team Providers Care Coater Brake Linings Name Role Phone Rocky Almanzar MD Primary Care Provider [phone] Reason for Visit * Reason Comments Med Refill Encounter Details Date Type Department Care Team (Late Contact Info) Description 11/10/2021 Refill [facility] Endocrinology [address] [place] [address] Jason Romero MD [address] [address] Type 2 diabetes mellitus with other specified complication, with long-term current use of insulin ([facility]) Social History Tobacco Use Types [...] Department Care Team (Late Contact Info) Description 07/17/2025 2:00 PM EDT Office Visit [facility] Audiology [address] [place] [address] Lottie Lund, AuD [address] [place] [address] 01/05/2026 9:40 AM EST Office Visit [facility] Endocrinology [address] [place] [address] Melany Rosales, DO [address] [place] [address] 01/05/2026 11:00 AM EST Office Visit [facility] Eye [place] [address], [address] [place] [address] Vivian Macias S, OD [address] [place] [address] documented as of this encounter Visit Diagnoses Diagnosis Type 2 diabetes mellitus with other specified complication, with long-term current use of insulin (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
--- OUTSIDE RECORDS SUMMARY | 2025-07-08 09:24 | XMS_ITS | Encounter Summary ---
Author Organization [facility] Address [address] [place] [address] Care Team Providers Care Fruit Canner Name Role Phone Rocky Almanzar MD Primary Care Provider [phone] Encounter Details Date Type Department Care Team (Latest Contact Info) Description 07/07/2025 Travel Social History Tobacco Use Types Packs/Day [...] Description 07/17/2025 2:00 PM EDT Office Visit [facility] Audiology [address], [address] [place] [address] Lottie Lund, AuD [address] [place] [address] 01/05/2026 9:40 AM EST Office Visit [facility] Endocrinology [address] [place] [address] Melany Rosales, DO [address] [place] [address] 01/05/2026 11:00 AM EST Office Visit [facility] Eye [place] [address], [address] [place] [address] Vivian Macias S, OD [address] [place] [address] documented as of this encounter [...] documented as of this encounter Care Teams Fruit Canner Relationship Specialty Start Date End Date Rocky Almanzar MD [address] [place] [address] PCP - General 03/18/21 documented as of this encounter
--- OUTSIDE RECORDS SUMMARY | 2025-07-08 09:24 | XMS_ITS | Encounter Summary ---
Author Organization Healthcare Address [address] [place] [address] Care Team Providers Care Finger Cobbler Name Role Phone Rocky Almanzar MD Primary Care Provider [phone] Encounter Details Date Type Department Care Team (Late st Contact Info) Description 04/28/2025 Telephone [facility] Endocrinology [address] [place] [address] Jason Romero MD [address] [place] [address] Social History Tobacco Use Types [...] with Derek's phone number for refills from [facility]a. Pt's was on the phone and was able to take appropriate notes. Pt to come by [facility] to peanut picker smaple FSL3+ sensor on Sunday. No other questions at this time. * Telephone Encounter - MARYLIN DALAL - 04/28/2025 12:05 PM EDT Pt requesting a call back regarding his Leroy system not seeming to be working. documented in this encounter Plan of Treatment Upcoming Encounters Date Type Department Care Team (Late st Contact Info) Description 07/17/2025 2:00 PM EDT Office Visit [facility] Audiology [address] [place] [address] Lottie Lund, AuD [address] [place] [address] 01/05/2026 9:40 AM EST Office Visit [facility] Endocrinology [address] [place] [address] Melany Rosales, DO [address] [facility] [address] [place] [address] 01/05/2026 11:00 AM EST Office Visit [facility] [address], [address] [place] [address] Vivian Macias S, OD [address] [place] [address] documented as of this encounter [...] documented as of this encounter Care Teams Finger Cobbler Relationship Specialty Start Date End Date Rocky Almanzar MD [address] [place] [address] PCP - General 03/18/21 documented as of this encounter
--- OUTSIDE RECORDS SUMMARY | 2025-07-08 09:24 | XMS_ITS | Clinical Summary ---
Author Organization [facility] Address [address] [facility] [address] [place] [address] Phone Care Team Providers Care Multi Care Technician Name Role Phone Anne Merlos Unavailable Unavailable Conditions or Problems Problem Name Problem Code Onset Date Status Entry Date Provider Comment Standard Description Annotate Immunodeficie ncy due to printing supplies sales 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 therapeutic use of drug 299623291 (SNOMED CT) 01/14 Active 01/14 Rocky Patino MD Drug-induced immunodeficiency Leukopenia 22067090 (SNOMED CT) 01/14 Active 01/14 Rocky Patino MD Leukopenia 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 (SNOMED CT) 01/09 Active 01/09 Echo Mccurdy 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/09 Active 01/09 Echo Mccurdy Acute pulmonary histoplasmosis capsulati Medications Medication Instructions Start Date Stop Date Generic Name [facility] Provider VORICONAZOLE 200 MG TABS Take 1 tablet by mouth once a day voriconazole [id number] Rocky Patino MD MINOCYCLINE HCL 100 MG CAPS 1 capsule by mouth twice a day Take one twice a day for three days then only take 1 once a day minocycline 59404738264 Rocky Patino MD budesonide 3 mg by mouth as needed as directed budesonide Flavio Mack budesonide 3 mg by mouth as needed as directed budesonide Hugh Angel EZETIMIBE 10 MG TABS 1 tablet by mouth once a day ezetimibe [id number] Hugh Angel XARELTO 20 MG TABS rivaroxaban 39008736135 [facility] Stanley PRAVASTATIN SODIUM 20 MG TABS 1 tablet by mouth once a day pravastatin 74888436156 [facility] Stanley aspirin 81 mg capsule 1 capsule by mouth once a day aspirin [facility] Stanley ITRACONAZOLE 100 MG CAPS Take 2 capsule by mouth twice a day itraconazole 97217946542 Anne Merlos ITRACONAZOLE 100 MG CAPS TAKE TWO CAPSULES BY MOUTH TWICE DAILY itraconazole 22087176526 Rocky Patino MD IPRATROPIUM-ALBU TEROL 0.5-2.5 (3) MG/3ML SOLN ipratropium-albut phoenix 35788581533 Amrita Herminia JARDIANCE 10 MG TABS 1 tablet by mouth once a day empagliflozin 00558580152 Amrita Hope ITRACONAZOLE 100 MG CAPS Take 2 capsule by mouth twice a day itraconazole 48034550346 Rocky Patino MD XARELTO 20 MG TABS rivaroxaban 58893422986 [facility] aspirin 81 mg capsule 1 capsule by mouth once a day aspirin Laiba Sonu budesonide 9 mg by mouth as needed as directed budesonide Laiba Sonu VITAMIN D 25 MCG (1000 UT) TABS 1 tablet by mouth once a day cholecalciferol (vitamin d3) 03969349398 Laiba Sonu JARDIANCE 10 MG TABS 1 tablet by mouth once a day empagliflozin 20414335311 Laiba Sonu EZETIMIBE 10 MG TABS 1 tablet by mouth once a day ezetimibe 54681345411 Laiba Sonu insulin lispro protamine-lispro 100 unit/mL (75-25) subcutaneous susp insulin lispro protamin-lispro Laiba Sonu IPRATROPIUM-ALBU TEROL 0.5-2.5 (3) MG/3ML SOLN ipratropium-albut phoenix 50227544888 Laiba Sonu LEVOTHYROXINE SODIUM 50 MCG TABS 1 tablet by mouth once a day levothyroxine 01179345589 Laiba Sonu METFORMIN HCL 500 MG TABS 1 tablet by mouth once a day metformin 01773513399 Laiba Sonu MIRTAZAPINE 15 MG TABS 1 tablet by mouth once a day mirtazapine 88676393947 Laiba Sonu MYCOPHENOLATE MOFETIL 500 MG TABS 1 tablet by mouth twice a day mycophenolate mofetil 74089554912 Laiba Sonu PRAVASTATIN SODIUM 20 MG TABS 1 tablet by mouth once a day pravastatin 63963352230 Laiba Sonu URSODIOL 500 MG TABS 1 tablet by mouth twice a day ursodiol 28863971887 Laiba Sonu Medications Administered No information available. 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, MARINE BIOLOGIST FALLRSKASSES yes Fall ris k assessment Lab [...] Detail Appointment 11:00 AM Rocky Patino MD, [facility], [address], [place], [address], Pending order New Oral Antibio tic Pending [...] (G2211) G2211 Complex E&M visit add-on (G2211) CPT-60315 CMP [id number] CBC with Differential 2024 CPT-88188 BNP CPT-56457 Itraconazole Level 3 CPT-Cooral Continue oral antibiotics 29/04/13 G2211 Complex E&M visit add-on (G2211) CPT-Cooral Continue oral antibiotics 27/02/11 CPT-54001 CMP [id number] CBC with Differential 2024 CPT-55227 Itraconazole Level 1 CPT-89844 BNP CPT-elizabeth New Oral Antibiotic CPT-90658 CMP [id number] CBC with Differential 2024 CPT-01628 CD4 39249 Fungitell, serum (1-3) D-Glucan Assay 03/07/12 CPT-47395 Urine Culture & Sensitivity [id number], [id number] Urinalysis CPT-cf Fungal Culture & Sensitivity CPT-78429 BNP Vital Signs Date Name Value Unit [...]
--- OUTSIDE RECORDS SUMMARY | 2025-07-08 09:24 | XMS_ITS | Encounter Summary ---
Author Organization Healthcare Address [address] [place] [address] Care Team Providers Care School Transportation Director Name Role Phone Rocky Almanzar MD Primary Care Provider [phone] Reason for Visit * Reason Comments Med Refill Encounter Details Date Type Department Care Team (Late st Contact Info) Description 06/30/2025 Refill [facility] Endocrinology [address] [place] [address] Jason Romero MD [address] [address] Social History Tobacco Use Types [...] Description 07/17/2025 2:00 PM EDT Office Visit [facility] Audiology [address], [address] [place] [address] Lottie Lund, AuD [address] [place] [address] 01/05/2026 9:40 AM EST Office Visit [facility] Endocrinology [address] [place] [address] Melany Rosales, DO [address] [place] [address] 01/05/2026 11:00 AM EST Office Visit [facility] [address], [address] [place] [address] Vivian Macias S, OD [address] [place] [address] documented as of this encounter [...] documented as of this encounter Care Teams School Transportation Director Relationship Specialty Start Date End Date Rocky Almanzar MD [address] [place] [address] PCP - General 03/18/21 documented as of this encounter
--- OUTSIDE RECORDS SUMMARY | 2025-07-08 09:25 | XMS_ITS | Clinical Summary ---
Author Organization [facility] Address [address] 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 01/06/20 22 Active ipratropium-a lbuterol (Duo-Neb) 0.5-2.5 mg/3 mL nebulizer solution Take [...] mouth 2 (two) times a day. Active insulin lispro protamine-ins ulin lispro (HumaLOG MIX 75/25 KWIKPEN) (75-25) 100 UNIT/ML injection pen INJECT 26 UNITS THREE TIMES A DAY. TITRATE DIRECTED TO MAXIMUM DAILY DOSE OF 100 UNITS. 90 mL 1 01/17/20 25 Active Additional Information Patient not taking.Reported on 07/07/2025 Jardiance 10 MGIndications :Type 2 diabetes mellitus with hyperglycemia , with long-term current use of insulin (CMS/HCC) TAKE 1 TABLET DAILY 90 tablet 3 05/04/20 25 Active minocycline 100 MG capsule TAKE ONE CAPSULE BY MOUTH TWICE DAILY FOR 3 DAYS THEN take 1 capsule ONCE daily 06/15/20 25 Active potassium chloride CR (Klor-Con M20) 20 MEQ ER tablet 07/03/20 25 Active voriconazole (Vfend) 200 MG tablet every 12 hours. Acti ve warfarin (Coumadin) 6 MG tablet 1 (one) time each day at the same time. Active metFORMIN (Glucophage) 500 MG tabletIndicat ions:Type 2 diabetes mellitus with hyperglycemia , with long-term current use of insulin (CMS/HCC) TAKE ONE TABLET BY MOUTH TWICE DAILY --TAKE WITH FOOD-- 180 tablet 3 07/07/20 25 Active metFORMIN (Glucophage) 500 MG tabletIndicat ions:Type 2 diabetes mellitus with other specified complication, with long-term current use of insulin (CMS/HCC) TAKE ONE TABLET BY MOUTH TWICE DAILY --TAKE WITH FOOD-- 180 tablet 2 12/17/19 25 025 Discontinued(R eorder) Lantus SoloStar 100 UNIT/ML injection pen 1 (one) time each day at the same time. 04/02/20 25 025 Discontinued Active Problems Problem Noted Date [...] Encounters Date Type Department Care Team Description 07/07/2025 11:40 AM EDT Office Visit [facility] Endocrinology [address] [place] [address] Melany Rosales DO Type 2 diabetes mellitus with hyperglycemia, with long-term current use of insulin ([facility]) (Primary Dx); Hemochromatosis, unspecified hemochromatosis type; Acquired hypothyroidism; Histoplasmosis 07/07/2025 Travel 06/30/2025 Refill [facility] Endocrinology [address] [place] [address] Jason Romero MD 05/04/2025 Refill [facility] Endocrinology [address] [place] [address] Jason Romero MD Type 2 diabetes mellitus with hyperglycemia, with long-term current use of insulin ([facility]/HCC) 04/28/2025 Telephone [facility] Endocrinology [address] [place] [address] Jason Romero MD 04/24/[address] [facility] Diabetes Education [address] [place] [phone] Rocky Almanzar MD HCN - Patient Message [...] Pulse 103 07/07/2025 11:45 AM EDT Temperature 36.9 C (98.4 F) 01/13/2021 1:35 PM EST Respiratory Rate 16 06/17/2019 3:53 PM EDT Oxygen Saturation 94% 11/22/2023 11:20 AM EST Inhaled Oxygen Concentration - - Weight 57.4 kg (126 lb 8.7 oz) 07/07/2025 11:45 AM EDT Height 165.1 cm (5' 5 ) 07/07/2025 11:45 AM EDT Body Mass Index 21.06 07/07/2025 11:45 AM EDT Plan of Treatment Upcoming Encounters Date Type Department Care Team (Late st Contact Info) Description 07/17/2025 2:00 PM EDT Office Visit [facility] Audiology [address] [place] [address] Lottie Lund, AuD [address] [place] [address] 01/05/2026 9:40 AM EST Office Visit [facility] Endocrinology [address] [place] [address] Melany Rosales, DO [address] [place] [address] 01/05/2026 11:00 AM EST Office Visit [facility] [address], [address] [place] [address] Vivian Macias, OD [address] [place] [address] Health Maintenance Due Date Last Done Comments [facility]-Depression Screening 1950 [facility]-Medicare Annual Wellness (AWV) 1950 [facility]-/Child/Adol SDOH Screenings 1950 Diabetes: Dental Exam 1961 [facility]- SDOH Screenings 1969 [facility]-Adult SDOH Screenings 1969 [facility]-DTaP,Tdap,and Td Vaccines (1 - Tdap) 1970 [facility]-Zoster Vaccines (1 of 2) 1970 CT Colonography 1996 FIT-DNA 1996 FIT 1996 FOBT 1996 Sigmoidoscopy 1996 [facility]-Abdominal Aortic Aneurysm (AAA) Screening 2016 TKS-CXADA-90 Vaccine (7 - Moderna risk season) 2025 10/13/2024, 10/01/2023, 09/20/2022, Additional history exists [facility]-Influenza Vaccine (#1) 07/06/202510/16, 09/22/2021, 09/22/2021, Additional history exists [facility]-Diabetes: Hemoglobin A1C 01/04/202612/2024, 12/16/2024, 05/23/2024, Additional history exists Colonoscopy 08/03/2027 08/03/2017 [facility]-Colorectal Cancer Screening 08/03/2027 [facility]-Hepatitis A Vaccines Completed 03/03/2013, 07/07 [facility]-Hepatitis C Screening Completed 08/15/2016 [facility]-Pneumococcal Vaccine: 50+ Years Completed 08/13/2018, 08/03/2015 [facility]-RSV Vaccine: 60+ Years or Completed 11/02/2023 [...] this topic Medical Devices Implanted Type Area Physical Medicine Specialist Device Identifier Shelf Expiration Date Model / Serial / Lot Roseline Stanleyk Advantage Ci Hifocus 1j Electrode--06/05 Implanted:06/05 by Ky Del Rio MD (Quantity not on file) Cochlear Left: Ear [employer] [id number] / [id number] / Description:Roseline StanleyK Advant age CI HiFocus 1J electrode--cochlear implant by Dr. Del Rio at [facility] on 06/21/2017, operative note in Epic. LEFT EAR. Roseline ULTRA 3D Cochlear implant REF: [id number] Serial number: [id number] Procedures Procedure Name Priority Date/Time Associated Diagnosis [...] [facility] Kit Lot Number [id number] [facility] Kit Expiration Date 04/2027 [facility] Blood Venous blood specimen / Unknown 07/07/2025 12:03 PM EDT Melany Rosales DO POINT OF CARE TEST ENTER/ED IT ORDERABLES Edited Result - Final [facility] [address] [place] [address] * COLONOSCOPY (08/03/2017) Anatomical Region Laterality Modality Endoscopy Narrative 08/03/2017 Ordered by an unspecified provider. 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
--- OUTSIDE RECORDS SUMMARY | 2025-07-08 09:26 | XMS_ITS | Patient Health Record ---
Author Organization Formerly [facility] Address [address] [facility] [address] [id number] Care Team Providers Care Syrup Maker Cook Name Role Phone Shauna Almanzar Primary Care Provider [phone] Emir Berger Unavailable [phone] Trinity Medeiros Unavailable [phone] Doretha Burns Unavailable [phone] Allergies Allergen (clinical drug ingredient) Drug/Non Drug [...] Performing Lab: Notes/Report: chronic findings, nothing new Glycohemoglobin A1c (in hous e) Reviewed date:04/03/2025 09:15:19 AM Interpretation:11 Performing Lab: Notes/Report: 11 glycohemoglobin 11.1% 5 - 6.5 % P-Comprehensive Metabolic Pa tarah (CMP) Reviewed date:06/04/2025 01:02:08 PM Interpretation:gluc 347, bun 29, Ca 8.5, prot 5.5 Performing Lab: Notes/Report: Test performed by [facility] [address] [place] [address] , [address], [place] [address] Kristian Trevino MD, Hides Inspector CLIA: [id number] Sodium 139 135-145 mmol/L Potassium 3.7 3.5-5.3 [...] 695 Performing Lab: Notes/Report: Test performed by [facility] [address] [place] [address] , [address], [place] [address] Kristian Trevino MD, Hides Inspector CLIA: [id number] Albumin/Creatinine Ratio, Urine 695 0-30 ug/mg Microalbumin, Urine, Random 16.4 Creatinine, Urine 23.6 CBC Venipuncture (in house) Reviewed date:07/03/2025 12:46:28 [...] 175 Performing Lab: Notes/Report: Test performed by [facility] [address] [place] [address] , [address], [place] [address] Kristian Trevino MD, Hides Inspector CLIA: [id number] Sodium 140 135-145 mmol/L Potassium 4.1 3.5-5.3 mmol/L Chloride 105 97-108 mmol/L CO2 22 20-32 mmol/L Glucose 175 65-99 mg/dL BUN 12 8-23 mg/dL Creatinine 1.26 0.70-1.30 mg/dL Calcium 9.4 8.6-10.4 mg/dL eGFR by Creatinine 60 >59 mL/min/1.73m2 P-Cortisol, Random Reviewed date:07/07/2025 10:18:42 AM Interpretation: Normal Performing Lab: Notes/Report: Test performed by [facility] [address] [place], [place] [address] [place] , [address], [place] [address] Kristian Trevino MD, Hides Inspector CLIA: [id number] Cortisol, Random 7.7 CORTISOL REFERENCE RANGE AM Serum: 6.0-18.4 ug/dL PM Serum: 2.7-10.5 ug/dL P-Iron Reviewed date:07/07/2025 10:18:42 AM Interpretation:28 Performing Lab: Notes/Report: Test performed by [facility] [address] , [address], [place] [address] Kristian Trevino MD, Hides Inspector CLIA: [id number] Iron 28 59-158 ug/dL P-TSH Reviewed date:07/07/2025 10:18:42 AM Interpretation:6.42 Performing Lab: Notes/Report: Test performed by [facility] [address] , [place] [address] Kristian Trevino MD, Hides Inspector CLIA: [id number] TSH 6.42 0.43-5.25 mU/L H-BMP Reviewed date:09/15/2024 10:12:19 AM Interpretation:bun 25, [...] - 6.5 % Urinalysis - Inhouse Reviewed date:01/09/2025 01:37:28 PM [...] 229 Performing Lab: Notes/Report: Test performed by [facility] [address] [place] [address] , [address], [place] [address] Kristian Trevino MD, Hides Inspector CLIA: [id number] Sodium 138 135-145 mmol/L Potassium 4.3 3.5-5.3 [...] Gluc 2+ CBC Venipuncture (in house) Reviewed date:06/10/2025 08:30:05 [...] 232 Performing Lab: Notes/Report: Test performed by [facility] [address] [place] [address] , [address], [place] [address] Kristian Trevino MD, Hides Inspector CLIA: [id number] Sodium 141 135-145 mmol/L Potassium 3.0 3.5-5.3 [...] Interpretation:23 Performing Lab: Notes/Report: Test performed by [facility] , [address], [place] [address] Kristian Trevino MD, Hides Inspector CLIA: [id number] Creatine Kinase 23 20-200 U/L K-J-Ojougggk Protein (CRP) Reviewed date:06/10/2025 08:30:05 AM Interpretation:4.00 Performing Lab: Notes/Report: [facility] , [place] [address] Kristian Trevino MD, Hides Inspector CLIA: [id number] C-Reactive Protein (CRP) 4.00 <0.50 mg/dL P-Sed Rate (ESR) Reviewed date:06/10/2025 08:30:05 AM Interpretation:31 Performing Lab: Notes/Report: Test performed by [facility] , [place] [address] Kristian Trevino MD, Hides Inspector CLIA: [id number] Erythrocyte Sedimentation Rate (ESR), Automated 31 <21 mm/hr P-TSH reflex to FT4 Reviewed date:06/10/2025 08:30:05 AM Interpretation:Normal Performing Lab: Notes/Report: Test performed by [facility] , [address], [place] [address] Kristian Trevino MD, Hides Inspector CLIA: [id number] TSH reflex to FT4 3.44 0.43-5.25 mU/L P-Vitamin D 25-Hydroxy Reviewed date:06/10/2025 08:30:05 AM Interpretation:Normal Performing Lab: Notes/Report: [facility] , [place] [address] Kristian Trevino MD, Hides Inspector CLIA: [id number] Vitamin D 25-Hydroxy 57.8 30.0-100.0 ng/mL Interpretation [...] date:08/26/2024 02:54:53 PM Interpretation: Performing Lab: Notes/Report: IFF MANUAL DIFFERENTIAL MANUAL DIFF TCC 100 NEUT%M [...] AM Interpretation:cl 109, co2 21, bun 25, qom973 Performing Lab: Notes/Report: NA 137 136-145 mmol/L [...] every 6 hrs Active FreeStyle Ler[place] 3 [place] - as directed 05/12/2025 Not-Taking Mirtazapine 15 [...] W/U Status Risk Notes Problem Essential hypertension (42434774) Essential (primary) hypertension (I10) Active confirmed Problem Vitamin D deficiency (04264658) Vitamin D deficiency (E55.9) Active confirmed Problem Essential hypertension (42012779) Essential hypertension (I10) Active confirmed Problem Screening for malignant neoplasm of prostate (132761288) Prostate cancer screening (Z12.5) Active confirmed Problem Anorexia (11877050) Anorexia (R63.0) Active con firmed Problem Paroxysmal atrial fibrillation (130133387) Paroxysmal atrial fibrillation (I48.0) Active confirmed Problem Hyperglycemia due to type 2 diabetes mellitus (973852203243339) Type 2 diabetes mellitus with hyperglycemia (E11.65) Active confirmed Problem Mixed hyperlipidemia (492335208) Mixed hyperlipidemia (E78.2) Active confirmed Problem Hyperlipidemia (05768553) Hyperlipidemia, unspecified (E78.5) Active confirmed Problem Hereditary hemochromatosis (52853546) 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) Active confirmed Problem Chronic respiratory failure (02343830) Chronic respiratory failure with hypoxia (J96.11) Active confirmed Problem Autoimmune hepatitis (114418727) Autoimmune hepatitis (K75.4) Active confirmed Problem Cholelithiasis without obstruction (32051802) Calculus of gallbladder without cholecystitis without obstruction (K80.20) Active confirmed Problem Cochlear implant status (Z96.21) Active confirmed Problem Male erectile disorder (003346416) Male erectile disorder (N52.9) Active confirmed Problem Long-term current use of insulin (670865321) MCC (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 (Z79.4) Active confirmed Problem Type II diabetes mellitus without complication (588957834) Type 2 diabetes mellitus without complication (E11.9) Active confirmed Problem Acquired hypothyroidism (125858223) Acquired hypothyroidism (E03.9) Active confirmed Problem Pulmonary fibrosis (20606171) Pulmonary fibrosis (J84.10) Active confirmed Problem Chronic fatigue syndrome (91320184) Chronic fatigue (R53.82) Active confirmed Problem COPD - Chronic obstructive pulmonary disease (32863176) Chronic obstructive pulmonary disease, unspecified COPD type (J44.9) Active confirmed Problem Pneumonia (869055315) Pneumonia of right lower lobe due to infectious organism (J18.9) Active confirmed Problem Hearing loss (43266913) Hearing loss, bilateral (H91.93) Active confirmed Problem Disorder of adrenal gland (91302297) 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) Active confirmed Problem Neutropenia (380972651) Neutropenia, unspecified type (D70.9) Active confirmed Problem Interstitial lung disease (935859757) Interstitial lung disease (J84.9) Active confirmed Problem Seasonal allergic rhinitis (549889066) Seasonal allergic rhinitis, unspecified allergic rhinitis trigger (J30.2) Active confirmed Problem Granulocytopenia (261443623) 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 confirmed Problem Systemic lupus erythematosus (52391084) Lupus (systemic lupus erythematosus) (M32.9) Active confirmed Problem Cardiac arrhythmia (553295623) Cardiac arrhythmia, unspecified cardiac arrhythmia type (I49.9) Active confirmed Problem Malnutrition, calorie (836972869) Caloric malnutrition (E46) Active confirmed Problem Benign prostatic hypertrophy without outflow obstruction (408636611) BPH without urinary obstruction (N40.0) Active confirmed Problem Allergic rhinitis caused by pollen (41030844) Acute seasonal allergic rhinitis due to pollen (J30.1) Active confirmed Problem Sensorineural hearing loss, bilateral (689084682) Sensorineural hearing loss (SNHL) of both ears (H90.3) Active confirmed Problem Cholestatic hepatitis (47671124) Cholestatic hepatitis (K75.89) Active confirmed Problem Skin sensation disturbance (89401792) Sensitive skin (R20.3) Active confirmed Problem Dilatation of aorta (99976811) Dilatation of aorta (I77.819) Active confirmed Problem Tomography - chest abnormal (503319813) Abnormal CT scan, chest (R93.89) Active confirmed Problem Left atrial dilatation (403905875) Left atrial dilatation (I51.7) Active confirmed Problem Chronic vascular insufficiency of intestine (212267663) 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 Problem Protein malnutrition (19721643) Protein malnutrition (E46) Active confirmed Vital Signs Heart Rate 101 /min 07/03/2025 Blood pressure diastolic 70 mm Hg 07/03/2025 Height 65 in 07/03/2025 Blood pressure systolic 124 mm Hg 07/03/2025 Weight 128.0 lbs 07/03/2025 BMI 21.3 kg/m2 07/03/2025 Encounters Encounter Location Date Provider Diagnosis [facility] [address] [id number] 09/05/2024 Shauna Almanzar Pneumonia of left lo wer lobe due to infectious organism J18.9 ; Interstitial lung disease J84.9 ; Chronic respiratory failure with hypoxia J96.11 ; 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 ; Autoimmune hepatitis K75.4 ; Protein malnutrition E46 and Caloric malnutrition E46 [facility] [address] [place], [place] [id number] 09/16/2024 Trinity Medeiros Strep pharyngitis J0 2.0 and Oral candidiasis B37.0 [facility] [address] [place] [id number] 10/09/2024 Shauna Almanzar Lesion of adrenal gl and E27.9 ; Essential hypertension I10 ; Type 2 diabetes mellitus without complication E11.9 ; Acquired hypothyroidism E03.9 ; Hearing loss, bilateral H91.93 ; Cochlear implant status Z96.21 ; Protein malnutrition E46 ; Chronic obstructive pulmonary disease, unspecified COPD type J44.9 and Encounter for immunization Z23 [facility] [address] [place], [place] [id number] 11/03/2024 Emir Bradgate Acute cough R05.1 [facility] [address] [place], [place] [id number] 11/07/2024 Shauna Almanzar Type 2 diabetes aquilino itus without complication E11.9 ; Acquired hypothyroidism E03.9 and Hereditary hemochromatosis E83.110 [facility] [address] [place], [place] [id number] 01/09/2025 Shauna Almanzar Type 2 diabetes aquilino itus without complication E11.9 ; Hereditary hemochromatosis E83.110 ; Cochlear implant status Z96.21 ; Chronic obstructive pulmonary disease, unspecified COPD type J44.9 ; Essential (primary) hypertension I10 ; Protein malnutrition E46 and Gross hematuria R31.0 [facility] [address] [place], [place] [id number] 01/15/2025 Shauna Almanzar Interstitial lung disease J84.9 ; 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 ; Autoimmune hepatitis K75.4 ; Protein malnutrition E46 ; Cochlear implant status Z96.21 ; Type 2 diabetes mellitus without complication E11.9 and Hematuria R31.9 [facility] [address] [place] [id number] 02/11/2025 Emir Bradgate Type 2 diabetes aquilino itus with hyperglycemia E11.65 ; MCC (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.4 ; Gross hematuria R31.0 and Body mass index (BMI) of 19.0 to 19.9 in adult Z68.1 [facility] [address] [place], [place] [id number] 03/13/2025 Doretha Burns Drug interaction Z78 .9 [facility] [address] [place], [place] [id number] 04/02/2025 J Rogerio Yohan Type 2 diabetes aquilino itus without complication E11.9 ; 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 ; Cholestatic hepatitis K75.89 ; 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.4 ; 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 ; Generalized weakness R53.1 and BMI 20.0-20.9, adult Z68.20 [facility] [address] [place] [address] [id number] 04/30/2025 Shauna Almanzar Type 2 diabetes aquilino [...] adult Z68.22 and Cochlear implant status Z96.21 [facility] [address], [place] [id number] 06/09/2025 Emir Mahoneyberry Generalized weakness R53.1 ; Anorexia R63.0 and Vitamin D deficiency E55.9 [facility] [address], [place] [id number] 07/03/2025 Shauna Almanzar Hypokalemia E87.6 ; Essential hypertension I10 ; Chronic fatigue R53.82 ; Protein malnutrition E46 ; Type 2 diabetes mellitus with hyperglycemia E11.65 ; MCC (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.4 ; 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 and 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 [facility] [address] [place], [place] [id number] 07/07/2025 Shauna Almanzar [facility] [address] [id number] 09/01/2024 Shauna Almanzar [facility] [address] [facility] [address] [id number] 09/04/2024 Shauna Almanzar [facility] [address] [place], [place] [id number] 09/08/2024 J Rogerio Almanzar [facility] [address] [place], [place] [id number] 09/10/2024 J Rogerio Almanzar [facility] [address] [place], [place] [id number] 09/15/2024 J Rogerio Almanzar [facility] [address] [place], [place] [id number] 09/16/2024 J Rogerio Almanzar [facility] [address] [place] [id number] 09/25/2024 J Rogerio Almanzar [facility] [address] [place], [place] [id number] 11/03/2024 Emir Bradgate [facility] [address] [place] [id number] 01/12/2025 J Rogerio Almanzar [facility] [address] [place], [place] [id number] 05/12/2025 J Rogerio Almanzar [facility] [address] [place] [id number] 05/12/2025 J Rogerio Almanzar [facility] [address] [place], [place] [id number] 06/04/2025 J Rogerio Almanzar [facility] [address] [place] [id number] 06/10/2025 Emir Bradgate [facility] [address] [place], [place] [id number] 06/10/2025 J Rogerio Almanzar [facility] [address] [place], [place] [id number] 06/23/2025 Shauna Almanzar Colon cancer screeni Z12.11 [facility] [address] [place], [place] [id number] 07/06/2025 Shauna Almanzar Assessments Encounter Date Diagnosis (ICD [...] to resume use of his CGM 02/11/2025 MCC (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 (ICD-10 - [...] mellitus with hyperglycemia (ICD-10 - E11.65) 04/02/2025 MCC (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 (ICD-10 [...] Cochlear implant status (ICD-10 - Z96.21) 07/03/2025 MCC (current) use of insulin (ICD-10 - [...] 11/07/2024 Next Appt Details Provider Name:Shauna Merida er, 08/07/2025 11:00:00 AM, [address], [place], [place], [id number], Insurance Providers Payer Name Payer Address Payer Phone Subscriber Number Group Number Insured Name Patient Relationship to Insured Coverage Start Date Coverage End Date [facility] [address] [address] [place] [address] [phone] [id number] HERMILA GOLDEN Self - patient is the insured Medical (General) History Medical History History ICD Code Seasonal Allergies Kidney Stones Steatohepatitis hemachromatosis,(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 Smalls and Dr. 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
[2025-07-08 10:21] LABS: PHA INR Fingerstick 3.8 (0.9-1.1)
[2025-07-08 12:52] LABS: Free T4 (Free Thyroxine) 1.64 ng/dl (0.78-2.19)
[2025-07-08 12:56] LABS: Cholesterol 251 mg/dl (140-200); HDL Cholesterol 41 mg/dl (40-60)
[2025-07-08 13:03] LABS: Triglycerides 489 mg/dl (30-150)
[2025-07-08 13:30] LABS: Thyroid Stimulating Hormone 4.06 uIU/mL (0.465-4.68)
== END 2025-07-08 10:32 ==
PROVIDERS: Nurse Practitioner; PCP Family Medicine; Visit Provider Student in an Organized Health Care Education/Training Program
DX: I48.0 Paroxysmal atrial fibrillation (principal); E11.65 Type 2 diabetes mellitus with hyperglycemia; Z79.4 Long term (current) use of insulin; E03.9 Hypothyroidism, unspecified; B39.9 Histoplasmosis, unspecified
CPT/HCPCS: 36415; 80061; 82024; 82043; 82533; 82570; 84439; 84443; 85610; 99211; G0463

== ENCOUNTER 2025-07-17 10:50 | Outpatient (CLI) | payer MEDICARE, SELFPAY ==
--- OUTSIDE RECORDS SUMMARY | 2025-04-02 10:15 | XMS_ITS ---
Author Organization [facility] Address 1210 [facility] [address] [phone] Care Team Providers Care Supervisor Telephone Clerks Name Role Phone Shauna Almanzar Primary Care [...] 5.5 Performing Lab: Notes/Report: Test performed by [employer] [facility]0 [facility] , [address], [place] [address] Kristian Trevino MD, Craft Manager CLIA: [id number] Sodium 139 135-145 mmol/L Potassium 3.7 3.5-5.3 [...] 695 Performing Lab: Notes/Report: Test performed by [facility] [address] [place] [address] , [address], [place] [address] Kristian Tervino MD, Craft Manager CLIA: [id number] Albumin/Creatinine Ratio, Urine 695 0-30 ug/m g [...] Grigsby 05/18/2025 02:47:51 PM > faxed to [facility] PT Referral Priority Routine REASON [...] 04/02/2025 Encounters Encounter Location Date Provider [facility] [address] [id number] 04/02/2025 Shauna Almanzar Type 2 diabetes aquilino itus without complication E11.9 ; 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 ; Cholestatic hepatitis K75.89 ; 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 ; 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 ; Generalized weakness R53.1 and BMI 20.0-20.9, adult Z68.20 Assessments Encounter Date Diagnosis (ICD Code) Assessment Notes Treatment Notes Treatment Clinical Notes Section Notes 04/02/2025 Type 2 diabetes mellitus without complication (ICD-10 - E11.9) 04/02/2025 Adrenal abnormality (ICD-10 - E27.9) 04/02/2025 Cholestatic hepatitis (ICD-10 - K75.89) 04/02/2025 [facility] (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 (ICD-10 - Z79.4) [...] Name:Shauna Merida er, 08/07/2025 11:00:00 AM, [address] [facility] [address], [address], [place], [place], [id number], Progress Notes * HERMILA GOLDENOB: [birth year] (75 yo M)Acc No.[id number]:04/02/2025 Progress Notes Patient: HERMILA BUCIO Provider: Shauna Almanzar M.D. :1950 A ge:75 Y S ex:Male Date:04/02/2025 Address:[address] [place] [address] 32 , [id number] Subjective: * Chief Complaints: * 1 [...] glucose, Gets yearly eye exams, 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 B [place] 20.0-20.9, adult - Z68.20? Plan: * Treatment: [...] 16.4 - mg/dL * Chula Gibson 06/04/20 25 01:01:59 PM [...] G 2211 Complex e/[place], [address] GLYCATED HEMOGLOBIN TEST, Modifiers: QW , G8752 [...] * Images: Billing Information: * Visit Code: 54620 Office Visit, Est Pt., Level 4. * Procedure Codes: G2211 Complex e/[place]. [address] GLYCATED HEMOGLOBIN TEST. Modifiers: QW G8752 MOST RECENT SYSTOLIC BP < 140MM HG. G8754 MOST RECENT DIASTOLIC BP < 90MM HG. 3046F HEMOGLOBIN A1C LEVEL > 9.0%. G8420 BMI<30 AND >=22 CALC & DOCU. 1036F TOBACCO NON-USER. 3017F COLORECTAL CA SCREEN DOC REV. * Electronic signature of Shauna Almanzar MD on 07/17/2025 at 10:52 AM EDT Sign off status: Pending * Provider: Shauna Almanzar M.D. Date: 0 04/02/2025 Generated for Collinsi kelly/Rei/eTransmitting on: 0 07/17/2025 10:52 AM EDT History and Physical Notes * [...]
--- OUTSIDE RECORDS SUMMARY | 2025-04-30 10:00 | XMS_ITS ---
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) Referral [facility] Referring Provider First Name Shauna Beatty [...] W/U Status Risk Notes Problem Cardiac arrhythmia (093185718) Cardiac arrhythmia, unspecified cardiac arrhythmia type (I49.9) Active confirmed Problem Chronic vascular insufficiency of intestine (389996099) 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 Vital Signs Weight 133.8 lbs 04/30/2025 Blood pressure systolic 130 mm Hg 04/30/20 25 Blood pressure diastolic 62 mm Hg 025 Heart Rate 85 /min 04/30/2025 Height 65 in 04/30/2025 BMI 22.26 kg/m2 04/30/2025 Encounters Encounter Location Date Provider Diagnosis [facility] [facility] [address] [id number] 04/30/2025 Shauna Almanzar Type 2 diabetes aquilino itus with hyperglycemia E11.65 ; intermediate (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.4 ; Adrenal [...] mellitus with hyperglycemia (ICD-10 - E11.65) 04/30/2025 intermediate (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 (ICD-10 - Z79.4) [...] 2 Months, Reason: Provider Name:Shauna Merida , 08/07/2025 11:00:00 AM, 1210 [facility] 36 [facility], [address] , [place], [place], [id number], Progress Notes * HERMILA GOLDENOB: [birth year] (75 yo M)Acc No.[id number]:04/30/2025 Progress Notes Patient: HERMILA BUCIO BENJIE Provider: Shauna Almanzar M.D. :1950 A ge:75 Y S ex:Male Date:04/30/2025 Address:[address] [facility] 32 , [facility] Subjective: * Chief Complaints: * 1 [...] fasting glucose, Gets yearly eye exams, [facility], Questionable Dx Lupus erythematosus 2015, [...] artery stenosis - K55.1 1 2. B [place] 22.0-22.9, adult - Z68.22 1 3. C [...] * Images: Billing Information: * Visit Code: 55135 Office Visit, Est Pt., Level 4. * [...] 04/30/2025 Generated for Printi ng/Faxing/eTransmitting on: 0 07/17/2025 10:52 AM EDT History [...]
--- OUTSIDE RECORDS SUMMARY | 2025-06-09 06:00 | XMS_ITS ---
Author Organization [facility] Address 1210 [facility] [address] [id number] Care Team Providers Care Workgroup Leader Name Role Phone Shauna Almanzar Primary Care Provider Emir Berger Unavailable [phone] Allergies Allergen (clinical drug ingredient) Drug/Non Drug [...] 232 Performing Lab: Notes/Report: Test performed by [employer] [facility]0 [facility] , [address], [place] [address] Kristian Trevino MD, Mental Health Program Director CLIA: [id number] Sodium 141 135-145 mmol/L Potassium 3.0 3.5-5.3 [...] Interpretation:23 Performing Lab: Notes/Report: Test performed by [employer] [address] , [facility], [place] [address] Kristian Trevino MD, Mental Health Program Director CLIA: [id number] Creatine Kinase 23 20-200 U/L A-V-Mvrwzuld Protein (CRP) Reviewed date:06/10/2025 08:30:05 AM Interpretation:4.00 Performing Lab: Notes/Report: Test performed by [employer] [address] , [address], [place] [address] Kristian Trevino MD, Mental Health Program Director CLIA: [id number] C-Reactive Protein (CRP) 4.00 <0.50 mg/dL P-Sed Rate (ESR) Reviewed date:06/10/2025 08:30:05 AM Interpretation:31 Performing Lab: Notes/Report: Test performed by [employer] [address] [place] [address] , [address], [place] [address] Kristian Trevino MD, Mental Health Program Director CLIA: [id number] Erythrocyte Sedimentation Ra te (ESR), Automated 31 <21 mm/hr P-TSH reflex to FT4 Reviewed date:06/10/2025 08:30:05 AM Interpretation:Normal Performing Lab: Notes/Report: Test performed by [employer] [address] [place] [address] , [address], [place] [address] Kristian Trevino MD, Mental Health Program Director CLIA: [id number] TSH reflex to FT4 3.44 0.43-5.25 mU/L P-Vitamin D 25-Hydroxy Reviewed date:06/10/2025 08:30:05 AM Interpretation:Normal Performing Lab: Notes/Report: Test performed by [employer] [address] [place] [address] , [address], [place] [address] Kristian Trevino MD, Mental Health Program Director CLIA: [id number] Vitamin D 25-Hydroxy 57.8 30.0-100.0 ng/mL Interpretation [...] Duration: 90 days Active FreeStyle Leroy 3 [place] - as directed 05/12/2025 Not-Taking Levothyroxine Sodium [...] Status W/U Status Risk Notes Problem Anorexia (48747133) Anorexia (R63.0) Active confirmed Vital Signs Weight 130 lbs 06/09/2025 Blood pressure systolic 112 mm Hg 06/09/20 25 Blood pressure diastolic 68 mm Hg 025 Heart Rate 64 /min 06/09/2025 Height 65 in 06/09/2025 BMI 21.63 kg/m2 06/09/2025 Encounters Encounter Location Date Provider Diagnosis [facility] [address] [place] [address] 36 [facility] [address] [place] [id number] 06/09/2025 Emir Berger Generalized weakness R53.1 ; [...] test results, Reason: Provider Name:Shauna Merida er, 08/07/2025 11:00:00 AM, [facility] [address], [address], [place], [id number], Progress Notes * HERMILA GOLDENOB: [birth year] (75 yo M)Acc No.[id number]:06/09/2025 Progress Notes Patient: HERMILA BUCION Provider: Jaden Berger M.D. :1950 A ge:75 Y S ex:Male Date:06/09/2025 Address:[address] [place] [address], [facility] Pcp:Shauna Almanzar Subjective: * Chief Complaints: * [...] portal: alexa...#[email or web address], [place] 2 diabetes, [place] [facility] [...] mouth daily , Not-Taking FreeStyle Leroy 3 [place] - Device as directed , Not-Taking FreeStyle [...] AM EDT > See phone encounter ?LAB: E-N-Zjwhgpad Protein (CRP) (Collection Date & Time - [...] to FT4 3.44 0.43-5.25 - mU/L * Nemo Rooney 06/10/2025 08:2 9:56 AM [...] Bui 06/09/2025 11:56:3 0 AM EDT > Nemo Rooney 06/10/2025 08:29:56 AM EDT > See phone encounter 2.?Anorexia? Notes: Boost or Ensure 1 can bid??3.?Vitamin D deficiency?LAB: P-Vitamin D 25-Hydroxy (Collection Date & Time - 06/09/2025 09:55 AM)? Normal* Value Reference Range V itamin D 25-Hydroxy 57.8 30.0-100.0 - ng/mL * Nemo Rooney 06/10/2025 08:2 9:56 AM EDT > See phone encounter * Procedure Codes: G 2211 Complex e/[place], [address] CBC WITH AUTO DIFF, 1036F TOBACCO NON-USER, G8783 BP SCR PRFRM RCMDD DEFIND SCR INTVL, G8752 MOST RECENT SYSTOLIC BP < 140MM HG, G8754 MOST RECENT DIASTOLIC BP < 90MM HG * Follow Up: v ia phone to report test results * Images: Billing Information: * Visit Code: 93501 Office Visit, Est Pt., Level 4. * Procedure Codes: G2211 Complex e/[place]. [address] CBC WITH AUTO DIFF. 1036F TOBACCO NON-USER. G8783 BP SCR PRFRM RCMDD DEFIND SCR INTVL. G8752 MOST RECENT SYSTOLIC BP < 140MM HG. G8754 MOST RECENT DIASTOLIC BP < 90MM HG. * Electronic signature of Elidia Berger MD on 07/17/2025 at 10:53 AM EDT Sign off status: Pending * Provider: Jaden Berger M.D. Date: 0 06/09/2025 Generated for Marissa mendoza/Rei/eTransmitting on: 0 07/17/2025 10:53 AM EDT History and Physical Notes * [...]
--- OUTSIDE RECORDS SUMMARY | 2025-06-15 11:23 | XMS_ITS ---
Author Organization [facility] Address [address] [place] [address] [place] [address] Phone Care Team Providers Care Obgyn Hospitalist Physician Name Role Phone Sukumar CUEVAS, Rocky Griggs [ ] Conditions or Problems No information available. Medications Medication Instructions Start Date Stop Date Generic Name [facility] Provider MINOCYCLINE HCL 100 MG CAPS 1 capsule by mouth twice a day Take one twice a day for three days then only take 1 once a day 1 minocycline [id number] Rocky Patino MD budesonide 3 mg by [...] Detail Appointment 11:00 AM Rocky Patino MD, [facility]0 [facility], [address], [place], [address], Pending order New Oral Antibio tic Pending [...]
--- OUTSIDE RECORDS SUMMARY | 2025-06-23 07:29 | XMS_ITS ---
Author Organization [facility] Address [address] [place] [id number] Care Team Providers Care Dray Truck Driver Name Role Phone Shauna Almanzar Primary Care Provider REASON FOR VISIT due col Encounters Encounter Location Date Provider Diagnosis [facility] [address] [place], [place] [phone] 06/23/2025 Shauna Almanzar Colon cancer screening Z12.11 Assessments Encounter Date Diagnosis (ICD Code) Assessment Notes Treatment Notes Treatment Clinical Notes Section Notes 06/23/2025 Colon cancer screening (ICD-10 - Z12.11) Plan Of Treatment Pending Test Test Name Order Date Cologuard 06/23/2025 Next Appt Details Provider Name:Shauna Merida er, 08/07/2025 11:00:00 AM, [address], [address], [place], [place], [phone], Progress Notes * HERMILA GOLDENOB: [birth year] (75 yo M)Acc No.[id number]:06/23/2025 Patient: Daniele HERMILA SALAS :1950 A ge:75 Y S ex:Male Address:[address], [place] [address] Subjective: * Chief Complaints: * D ue col * Medical History: * Surgical History: * Hospitalization/Major Diagno stic Procedure: * Medications: Objective: * Vitals: * Physical Examination: Assessment: * Assessment: 1. C olon cancer screening - Z12.11 (Primary) Plan: * Treatment: * Procedure Codes: * true * Date: Generated for Marissa mendoza/Rei/Jeremiah on: 0 07/17/2025 10:52 AM EDT
--- OUTSIDE RECORDS SUMMARY | 2025-07-03 07:45 | XMS_ITS ---
Author Organization [facility] Address 1210 [facility] [address] [phone] Care Team Providers Care Right Of Way Appraiser Name Role Phone Shauna Almanzar Primary Care Provider [phone] Allergies Allergen (clinical drug ingredient) Drug/Non Drug [...] 175 Performing Lab: Notes/Report: Test performed by [facility] , [address], [place] [address] Kristian Trevino MD, Waiter/Waitress Cafeteria CLIA: [id number] Sodium 140 135-145 mmol/L Potassium 4.1 3.5-5.3 mmol/L Chloride 105 97-108 mmol/L CO2 22 20-32 mmol/L Glucose 175 65-99 mg/dL BUN 12 8-23 mg/dL Creatinine 1.26 0.70-1.30 mg/dL Calcium 9.4 8.6-10.4 mg/dL eGFR by Creatinine 60 >59 mL/min/1.73m2 P-Cortisol, Random Reviewed date:07/07/2025 10:18:42 AM Interpretation: Normal Performing Lab: Notes/Report: Test performed by [facility] [address] [place] [address] , [place] [address] Kristian Trevino MD, Waiter/Waitress Cafeteria CLIA: [id number] Cortisol, Random 7.7 CORTISOL REFERENCE RANGE AM Serum: 6.0-18.4 ug/dL PM Serum: 2.7-10.5 ug/dL P-Iron Reviewed date:07/07/2025 10:18:42 AM Interpretation:28 Performing Lab: Notes/Report: Test performed by [facility] [address] [place] [address] , [address], [place] [address] Kristian Trevino MD, Waiter/Waitress Cafeteria CLIA: [id number] Iron 28 59-158 ug/dL P-TSH Reviewed date:07/07/2025 10:18:42 AM Interpretation:6.42 Performing Lab: Notes/Report: Test performed by [facility] [address] [place] [address] , [address], [place] [address] Kristian Trevino MD, Waiter/Waitress Cafeteria CLIA: [id number] TSH 6.42 0.43-5.25 mU/L REASON FOR VISIT [...] Duration: 90 days Active FreeStyle Leroy 3 [place] - as directed 05/12/2025 Not-Taking Mirtazapine 15 [...] 07/03/2025 Encounters Encounter Location Date [facility] [address] [id number] 07/03/2025 Shauna Almanzar Hypokalemia E87.6 ; Essential hypertension I10 ; Chronic fatigue R53.82 ; Protein malnutrition E46 ; Type 2 diabetes mellitus with hyperglycemia E11.65 ; correction (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.4 ; 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 and 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 Assessments Encounter Date Diagnosis (ICD Code) Assessment Notes Treatment Notes Treatment Clinical Notes Section Notes 07/03/2025 Hypokalemia (ICD-10 - E87.6) 07/03/2025 Essential hypertension (ICD-10 - I10) 07/03/2025 Chronic fatigue (ICD-10 - R53.82) 07/03/2025 Protein malnutrition (ICD-10 - E46) 07/03/2025 Type 2 diabetes mellitus with hyperglycemia (ICD-10 - E11.65) 07/03/2025 correction (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 (ICD-10 - Z79.4) 07/03/2025 Histoplasmosis (ICD-10 - B39.9) 07/03/2025 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 :1950 A ge:75 Y S ex:Male Date:07/03/2025 Address:[address] [place] [address] 32 , [facility] Subjective: * Chief Complaints: * 1 . 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 A drenal abnormality - E27.9 Plan: * Treatment: Value Reference Range B [...] 447 100 - 400 * Fatimah Sotelo 07/03/2025 12 :10:58 PM EDT > Provider [...] AM EDT > See phone encounter * Follow Up: 4 Weeks * Images: Billing Information: * Visit Code: 38520 Office Visit, Est Pt., Level 4. * Procedure Codes: * Electronic signature of Shauna Almanzar MD on 07/17/2025 at 10:53 AM EDT Sign off status: Pending * Provider: Shauna Almanzar M.D. Date: 0 07/03/2025 Generated for Marissa mendoza/Fadavidg/eTransmitting on: 0 07/17/2025 10:53 AM EDT History [...]
--- OUTSIDE RECORDS SUMMARY | 2025-07-07 11:40 | XMS_ITS | Encounter Summary ---
Author Organization [facility] Address [address] [place] [address] Care Team Providers Care Bag Machine Set Up Operator Name Role Phone Rocky Almanzar MD Primary Care Provider [phone] Reason for Referral * Consultation (Routine) - Authorized Specialty Diagnoses / Procedures Referred By Contac t Referred To Contact Diagnoses Type 2 diabetes mellitus with hyperglycemia, with long-term current use of insulin (CMS/HCC) Hemochromatosis, unspecified hemochromatosis type Acquired hypothyroidism Histoplasmosis Angelica Allan DO [address] [address] Phone: tel: fax: Referral ID Status Reason Start Date Expiration Date V isits Requested Visits Authorized [id number] Authorized 07/07/2025 01/06/2027 1 1 Encounter Details Date Type Department Care Team (Late st Contact Info) Description 07/07/2025 11:40 AM EDT Office Visit [facility] Endocrinology [address] [place] [phone] Angelica Allan DO [address] [address] Type 2 diabetes mellitus with [...] AM EDT Spoke with pt about connecting [facility] CGM to [facility] Clinic. Pt does have ahmet on phone, but has not created profile or used a login to be able to share with [facility]. Provided pt with instructions on how to [...] and decreased strength. He sees GI at [place]. He had been having glucoses >350. He [...] use of insulin ([facility]) (Primary) - POCT glycosylated hemoglobin (Hb A1C) [...] care. Electronically signed by: Angleica Allan DO [facility] ENDOCRINOLOGY [address] [place] [address]. [address] [place]. [address] PHONE [phone] FAX: [phone] Post Visit Addendum: Labs reviewed. FLP noted [...] and discussed with patient and his . documented in this encounter Plan of Treatment Upcoming Encounters Date Type Department Care Team (Late st Contact Info) Description 07/17/2025 2:00 PM EDT Office Visit [facility] Audiology [address] [place] [address] Lottie Lund, AuD [address] [place] [address] 07/20/2025 1:00 PM EDT Clinical Support [facility] Endocrinology [address] [place] [address] 07/20/2025 1:30 PM EDT Clinical Support [facility] Endocrinology [address] [place] [address] 01/05/2026 9:40 AM EST Office Visit [facility] Endocrinology [address] [place] [address] Angelica Allan, DO [address] [facility] [address] [place] [address] 01/05/2026 11:00 AM EST Office Visit [facility] [address], [address] [place] [address] Vivian Macias, OD [address] [place] [address] Scheduled Orders Name Type Priority Associated Diagnoses Orde r Schedule Cortisol Lab Routine Histoplasmosis Expected: 07/07/2025 (Approximate), Expires: 07/07/2026 ACTH Lab Routine Histoplasmosis Expected: 07/07/2025 (Approximate), Expires: 07/07/2026 Albumin-creatinine ratio, urine, random Lab Routine Type 2 diabetes mellitus with hyperglycemia, with long-term current use of insulin ([facility]) Expected: 07/07/2025 (Approximate), Expires: 07/07/2026 Lipid panel Lab Routine Type 2 diabetes mellitus with hyperglycemia, with long-term current use of insulin ([facility]) Expected: 07/07/2025 (Approximate), Expires: 07/07/2026 TSH Lab Routine Acquired hypothyroidism Expected: 07/07/2025 (Approximate), Expires: 07/07/2026 T4, free Lab Routine Acquired hypothyroidism Expected: 07/07/2025 (Approximate), Expires: 07/07/2026 Cortisol, Time=0 Lab Routine Elevation of adrenocorticotropic hormone (ACTH) Expected: 07/10/2025 (Approximate), Expires: 01/11/2027 ACTH Lab Routine Elevation of adrenocorticotropic hormone (ACTH) Expected: 07/10/2025 (Approximate), Expires: 01/11/2027 Cortisol, 30 Lab Routine Elevation of adrenocorticotropic hormone (ACTH) Expected: 07/10/2025 (Approximate), Expires: 01/11/2027 CORTISOL, 60 Lab Routine Elevation of adrenocorticotropic hormone (ACTH) Expected: 07/10/2025 (Approximate), Expires: 01/11/2027 Scheduled Referrals Name Type Priority Associated Diagnoses Orde r Schedule Follow Up [facility] Outpatient Referral Routine Type 2 diabetes mellitus with hyperglycemia, with long-term current use of insulin (CMS/HCC) Hemochromatosis, unspecified hemochromatosis type Acquired hypothyroidism Histoplasmosis Expected: 01/04/2026, Expires: 01/08/2027 documented as of this encounter Procedures Procedure Name Priority Date/Time Associated Diagnosis Comments POCT GLYCOSYLATED HEMOGLOBIN (HGB A1C) Routine 07/07/2025 12:03 PM EDT Type 2 diabetes mellitus with hyperglycemia, with long-term current use of insulin (CMS/HCC) documented in this encounter Results * POCT glycosylated hemoglobin (Hb A1C) (07/07/2025 12:03 PM EDT) POCT Hemoglobin A1C 6.7 <5.7% Non-Diabet ic % [employer] [facility] Kit Lot Number [id number] [facility] Kit Expiration Date 04/2027 [employer] [facility] Blood Venous blood specimen / Unknown 07/07/2025 12:03 PM EDT us Angelica Allan DO POINT OF CARE TEST ENTER/ED IT ORDERABLES Edited Result - Final [facility] [employer] [facility] [address] [place] [address] documented in this encounter Visit Diagnoses Diagnosis Type 2 diabetes mellitus with hyperglycemia, with long-term current use of insulin (CMS/HCC)- Primary Hemochromatosis, unspecified hemochromatosis type Acquired hypothyroidism [...] documented as of this encounter Care Teams Bag Machine Set Up Operator Relationship Specialty Start Date End Date Rocky Almanzar MD [address] [place] [address] PCP - General 03/18/21 documented as of this encounter
--- OUTSIDE RECORDS SUMMARY | 2025-07-17 10:52 | XMS_ITS | Encounter Summary ---
Author Organization [facility] Address [address] [place] [address] Care Team Providers Care Liaison Inspection Laboratory Assistant Name Role Phone Rocky Almanzar MD Primary Care Provider [phone] Encounter Details Date Type Department Care Team (Late st Contact Info) Description 07/09/2025 Results Follow-Up [facility] Endocr[facility]ology [address] [place] [address] Melany Rosales, [address] [facility] [address] [place] [address] Social History Tobacco Use Types [...] encounter Miscellaneous Notes * Telephone Encounter - Guadalupe Chirinos - 07/13/2025 8:00 AM EDT Tried Calling patient to schedule Cortisol Stim test . No Answer , Left VM and Cb # if patient wishes to schedule. * Result Encounter Note - Melany Rosales DO - 07/10/2025 12:13 PM EDT Please schedule for ACTH stimulation testing. Orders have been placed * Result Encounter Note - Melany Rosales DO - 07/09/2025 9:23 AM EDT Has the ACTH and cortisol resulted? documented in this encounter Plan of Treatment Upcoming Encounters Date Type Department Care Team (Late st Contact Info) Description 07/17/2025 2:00 PM EDT Office Visit [facility] Audiology [address] [place] [address] Lottie Lund, AuD [address] [place] [address] 07/20/2025 1:00 PM EDT Clinical Support [facility] Endocrinology [address] [place] [address] 07/20/2025 1:30 PM EDT Clinical Support [facility] Endocrinology [address] [place] [phone] 01/05/2026 9:40 AM EST Office Visit [facility] Endocrinology [address] [place] [phone] Melany Rosales DO [address] [facility] [address] [place] [address] 01/05/2026 11:00 AM EST Office Visit [facility] Eye [place] [address], [address] [place] [address] Vivian Macias S, OD [address] [place] [address] documented as of this encounter [...] documented as of this encounter Care Teams Liaison Inspection Laboratory Assistant Relationship Specialty Start Date End Date Rocky Almanzar MD [address] [place] [address] PCP - General 03/18/21 documented as of this encounter
--- OUTSIDE RECORDS SUMMARY | 2025-07-17 10:52 | XMS_ITS | Clinical Summary ---
[facility] Organization [facility] Address [address] [place] [address] Care Team Providers Care Sports Development Officer Name Role Phone Provider, No Known Primary [...] 08/15/2016 AAA SCREEN ONCE Completed 12/07/2016 Insurance [facility] [employer] PPO Care Teams Sports Development Officer Relationship Specialty Start Date End Date Provider, No Known [facility] [place] [address] PCP - General 01/14/25
--- OUTSIDE RECORDS SUMMARY | 2025-07-17 10:52 | XMS_ITS | Encounter Summary ---
Author Organization Healthcare Address [address] [place] [address] Care Team Providers Care Superintendent Overhead Distribution Name Role Phone Rocky Almanzar MD Primary Care Provider [phone] Reason for Visit * Reason Comments Med Refill Encounter Details Date Type Department Care Team (Late st Contact Info) Description 06/30/2025 Refill [facility] Endocrinology [address] [place] [address] Jason Romero MD [address] [address] Social History Tobacco Use Types [...] EDT Office Visit [facility] Audiology [address] [place] [address] Lottie Lund, AuD [address] [place] [address] 07/20/2025 1:00 PM EDT Clinical Support [facility] Endocrinology [address] [place] [address] 07/20/2025 1:30 PM EDT Clinical Support [facility] Endocrinology [address] [place] [address] 01/05/2026 9:40 AM EST Office Visit [facility] Endocrinology [address] [place] [address] Melany Rosales, [address] [facility] [address] [place] [address] 01/05/2026 11:00 AM EST Office Visit [facility] [address] [place] [address] Vivian Macias, OD [address] [place] [address] documented as of this encounter Visit Diagnoses [...] documented as of this encounter Care Teams Superintendent Overhead Distribution Relationship Specialty Start Date End Date Rocky Almanzar MD [address] [place] [address] PCP - General 03/18/21 documented as of this encounter
--- OUTSIDE RECORDS SUMMARY | 2025-07-17 10:52 | XMS_ITS | Clinical Summary ---
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 206704555 (SNOMED CT) 01/14 Active 01/14 Rocky Patino MD Drug-induced immunodeficiency Leukopenia 72315564 (SNOMED CT) 01/14 Active 01/14 Rocky Patino MD Leukopenia 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 01/09 Echo Mccurdy 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/09 Active 01/09 Echo Mccurdy Acute pulmonary histoplasmosis capsulati Medications Medication Instructions Start Date Stop Date Generic Name [facility] Provider VORICONAZOLE 200 MG TABS Take 1 tablet by mouth once a day voriconazole 25542032485 Rocky Patino MD MINOCYCLINE HCL 100 MG CAPS 1 capsule by mouth twice a day Take one twice a day for three days then only take 1 once a day minocycline 04439344916 Rocky Patino MD budesonide 3 mg by mouth as needed as directed budesonide Flavio Mack budesonide 3 mg by mouth as needed as directed budesonide Hugh Angel EZETIMIBE 10 MG TABS 1 tablet by mouth once a day ezetimibe 29748811804 Hugh Angel XARELTO 20 MG TABS rivaroxaban 13045049963 [facility] Stanley PRAVASTATIN SODIUM 20 MG TABS 1 tablet by mouth once a day pravastatin 71694235513 [facility] Stanley aspirin 81 mg capsule 1 capsule by mouth once a day aspirin [facility] Stanley ITRACONAZOLE 100 MG CAPS Take 2 capsule by mouth twice a day itraconazole 54558488016 Anne Merlos ITRACONAZOLE 100 MG CAPS TAKE TWO CAPSULES BY MOUTH TWICE DAILY itraconazole 49581168651 Rocky Patino MD IPRATROPIUM-ALBU TEROL 0.5-2.5 (3) MG/3ML SOLN ipratropium-albut [place] 95948095178 Amrita Herminia JARDIANCE 10 MG TABS 1 tablet by mouth once a day empagliflozin 97201617072 Amrita Hope ITRACONAZOLE 100 MG CAPS Take 2 capsule by mouth twice a day itraconazole 47445528592 Rocky Patino MD XARELTO 20 MG TABS rivaroxaban 76208393140 [facility] aspirin 81 mg capsule 1 capsule by mouth once a day aspirin Laiba Sonu budesonide 9 mg by mouth as needed as directed budesonide Laiba Sonu VITAMIN D 25 MCG (1000 UT) TABS 1 tablet by mouth once a day cholecalciferol (vitamin d3) 79283381296 Laiba Sonu JARDIANCE 10 MG TABS 1 tablet by mouth once a day empagliflozin 27297438113 Laiba Sonu EZETIMIBE 10 MG TABS 1 tablet by mouth once a day ezetimibe 02146087753 Laiba Sonu insulin lispro protamine-lispro 100 unit/mL (75-25) subcutaneous susp insulin lispro protamin-lispro Laiba Sonu IPRATROPIUM-ALBU TEROL 0.5-2.5 (3) MG/3ML SOLN ipratropium-albut phoenix 92824763652 Laiba Sonu LEVOTHYROXINE SODIUM 50 MCG TABS 1 tablet by mouth once a day levothyroxine 44997371477 Laiba Sonu METFORMIN HCL 500 MG TABS 1 tablet by mouth once a day metformin 49915530891 Laiba Sonu MIRTAZAPINE 15 MG TABS 1 tablet by mouth once a day mirtazapine 76767353570 Laiba Sonu MYCOPHENOLATE MOFETIL 500 MG TABS 1 tablet by mouth twice a day mycophenolate mofetil 51772394051 Laiba Sonu PRAVASTATIN SODIUM 20 MG TABS 1 tablet by mouth once a day pravastatin 60331300658 Laiba Sonu URSODIOL 500 MG TABS 1 tablet by mouth twice a day ursodiol 37511548458 Laiba Sonu Medications Administered No information available. 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, CODING CLERK FALLRSKASSES yes Fall ris k assessment Lab [...] Detail Appointment 11:00 AM Rocky Patino MD, [facility], [address], [place], [address], Pending order New Oral Antibio tic Pending [...] (G2211) G2211 Complex E&M visit add-on (G2211) CPT-97619 CMP [id number] CBC with Differential 2024 CPT-89926 BNP CPT-57355 Itraconazole Level 3 CPT-Cooral Continue oral antibiotics 29/04/13 G2211 Complex E&M visit add-on (G2211) CPT-Cooral Continue oral antibiotics 27/02/11 CPT-58002 CMP [id number] CBC with Differential 2024 CPT-42740 Itraconazole Level 1 CPT-54978 BNP CPT-elizabeth New Oral Antibiotic CPT-42623 CMP [id number] CBC with Differential 2024 CPT-78142 CD4 56329 Fungitell, serum (1-3) D-Glucan Assay 03/07/12 CPT-70410 Urine Culture & Sensitivity [id number], [id number] Urinalysis CPT-cf Fungal Culture & Sensitivity CPT-92201 BNP Vital Signs Date Name Value Unit [...]
--- OUTSIDE RECORDS SUMMARY | 2025-07-17 10:52 | XMS_ITS | Encounter Summary ---
Author Organization Healthcare Address [address] [place] [address] Care Team Providers Care Wire Mesh Knitter Name Role Phone Rocky Almanzar MD Primary Care Provider [phone] Reason for Visit * Reason Comments Med Refill Encounter Details Date Type Department Care Team (Late Contact Info) Description 11/10/2021 Refill [facility] Endocrinology [address] [place] [address] Jason Romero MD [address] [address] Type 2 diabetes mellitus with other specified complication, with long-term current use of insulin ([facility] Social History Tobacco Use [...] Description 07/17/2025 2:00 PM EDT Office Visit [facility] Audiology [address], [address] [place] [address] Lottie Lund, AuD [address] [place] [address] 07/20/2025 1:00 PM EDT Clinical Support [facility] Endocrinology [address] [place] [address] 07/20/2025 1:30 PM EDT Clinical Support [facility] Endocrinology [address] [place] [address] 01/05/2026 9:40 AM EST Office Visit [facility] Endocrinology [address] [place] [address] Melany Rosales, [address] 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
--- OUTSIDE RECORDS SUMMARY | 2025-07-17 10:52 | XMS_ITS | Encounter Summary ---
Author Organization [facility] Address [address] [place] [address] Care Team Providers Care Pants Closer Name Role Phone Rocky Almanzar MD Primary Care Provider [phone] Encounter Details Date Type Department Care Team [...] PM EDT Office Visit [facility] Audiology [address] [place] [address] Lottie Lund, AuD [address] [place] [address] 07/20/2025 1:00 PM EDT Clinical Support [facility] [address] [place] [address] 07/20/2025 1:30 PM EDT Clinical Support [facility] End[facility] [address] [place] [address] 01/05/2026 9:40 AM EST [facility] [address] [place] [address] Melany Rosales, DO [address] [place] [address] 01/05/2026 11:00 AM EST Office Visit [facility] [place] [address], [address] [place] [address] Vivian Macias, OD [address] [place] [address] documented as of this encounter [...] documented as of this encounter Care Teams Pants Closer Relationship Specialty Start Date End Date Rocky Almanzar MD [address] [place] [address] PCP - General 03/18/21 documented as of this encounter
--- OUTSIDE RECORDS SUMMARY | 2025-07-17 10:52 | XMS_ITS | Encounter Summary ---
Author Organization Healthcare Address [address] [place] [address] Care Team Providers Care Director Professional Services Name Role Phone Rocky Almanzar MD Primary Care Provider [phone] Encounter Details Date Type Department Care Team (Late st Contact Info) Description 07/09/2025 Orders Only [facility] Endocrinology [address] [place] [phone] Melany Rosales, DO [address] [facility] [address] [place] [address] Social History Tobacco Use Types [...] 2:00 PM EDT Office Visit [facility] Audiology [address] [place] [address] Lottie Lund, AuD [address] [place] [address] 07/20/2025 1:00 PM EDT Clinical Support [facility] Endocrinology [address] [place] [address] 07/20/2025 1:30 PM EDT Clinical Support [facility] Endocrinology [address] [place] [address] 01/05/2026 9:40 AM EST Office Visit [facility] Endocrinology [address] [place] [address] Melany Rosales, [address] [facility] [address] [place] [address] 01/05/2026 11:00 AM EST Office Visit [facility] [address] [place] [address] Vivina Macias S, OD [address] [place] [address] documented as of this encounter Procedures Procedure Name Priority Date/Time Associated Diagnosis Comments CORTISOL Routine 07/08/2025 2:53 PM EDT documented in this encounter Results * Cortisol (07/08/2025 2:53 PM EDT) Blood Venous blood specimen / Unknown Melany Rosales DO LAB REF LAB BLOOD AND FLUID ORD Final Result documented in this encounter Visit [...] documented as of this encounter Care Teams Director Professional Services Relationship Specialty Start Date End Date Rocky Almanzar MD [address] [place] [address] PCP - General 03/18/21 documented as of this encounter
--- OUTSIDE RECORDS SUMMARY | 2025-07-17 10:52 | XMS_ITS | Encounter Summary ---
Author Organization Healthcare Address [address] [place] [address] Care Team Providers Care Lip Reading Teacher Name Role Phone Rocky Almanzar MD Primary Care Provider [phone] Reason for Visit * Reason Comments Med Refill Encounter Details Date Type Department Care Team (Late Contact Info) Description 05/20/2021 Refill [facility] Endocrinology [address] [place] [address] Jason Romero MD [address] [facility] [address] [place] [address] Social History Tobacco Use Types [...] Description 07/17/2025 2:00 PM EDT Office Visit [facility] Audiology [address], [address] [place] [address] Lottie Lund, AuD [address] [place] [address] 07/20/2025 1:00 PM EDT Clinical Support [facility] Endocrinology [address] [place] [address] 07/20/2025 1:30 PM EDT Clinical Support [facility] Endocrinology [address] [place] [address] 01/05/2026 9:40 AM EST Office Visit [facility] Endocrinology [address] [place] [address] Melany Rosales, [address] [facility] [address] [place] [address] 01/05/2026 11:00 AM EST Office Visit [facility] [place] [address], [address] [place] [address] Vivian Macias S, OD [address] [place] [address] documented as of this encounter Visit Diagnoses Not on filedocumented in this encounter Additional Health Concerns Infection Onset Date Last Indicated Resolved Time 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
--- OUTSIDE RECORDS SUMMARY | 2025-07-17 10:52 | XMS_ITS | Encounter Summary ---
Author Organization Healthcare Address [address] [place] [address] Care Team Providers Care Tractor Technician Name Role Phone Rocky Almanzar MD Primary Care Provider [phone] Encounter Details Date Type Department Care Team (Late st Contact Info) Description 07/10/2025 Orders Only [facility] Endocrinology [address] [place] [address] Melany Rosales, DO [address] [facility] [address] [place] [address] Social History Tobacco Use Types [...] Description 07/17/2025 2:00 PM EDT Office Visit [facility] Audiology [address], [address] [place] [address] Lottie Lund, AuD [address] [place] [address] 07/20/2025 1:00 PM EDT Clinical Support [facility] Endocrinology [address] [place] [address] 07/20/2025 1:30 PM EDT Clinical Support [facility] Endocrinology [address] [place] [address] 01/05/2026 9:40 AM EST Office Visit [facility] Endocrinology [address] [place] [address] Melany Rosales DO [address] [facility] [address] [place] [address] 01/05/2026 11:00 AM EST Office Visit [facility] [address] [place] [address] Vivian Macias S, OD [address] [place] [address] documented as of this encounter Procedures Procedure Name Priority Date/Time Associated Diagnosis Comments ADRENOCORTICOTROPIC HORMONE (ACTH) Routine 07/08/2025 7:54 AM EDT documented in this encounter Results * ACTH (07/08/2025 7:54 AM EDT) Blood Venous blood specimen / Unknown Melany Rosales DO LAB BLOOD ORDERABLES Final Result documented in this encounter Visit [...] documented as of this encounter Care Teams Tractor Technician Relationship Specialty Start Date End Date Rocky Almanzar MD [address] [place] [address] PCP - General 03/18/21 documented as of this encounter
--- OUTSIDE RECORDS SUMMARY | 2025-07-17 10:52 | XMS_ITS | Encounter Summary ---
Author Organization Healthcare Address [address] [place] [address] Care Team Providers Care Lumber Sticker Name Role Phone Rocky Almanzar MD Primary Care Provider [phone] Encounter Details Date Type Department Care Team (Late st Contact Info) Description 07/08/2025 Orders Only [facility] [address] [place] [address] Melany Rosales, DO [address] [facility] [address] [place] [address] Social History Tobacco Use Types [...] Description 07/17/2025 2:00 PM EDT Office Visit [facility] Audiology [address] [place] [address] Lottie Lund, AuD [address] [place] [address] 07/20/2025 1:00 PM EDT Clinical Support [facility] Endocrinology [address] [place] [address] 07/20/2025 1:30 PM EDT Clinical Support [facility] Endocrinology [address] [place] [address] 01/05/2026 9:40 AM EST Office Visit [facility] Endocrinology [address] [place] [address] Melany Rosales DO [address] [place] [address] 01/05/2026 11:00 AM EST Office Visit [facility] [address], [address] [place] [address] Vivian Macias S, OD [address] [place] [address] documented as of this encounter Procedures Procedure Name Priority Date/Time Associated Diagnosis Comments HP LINK LIPID PANEL Routine 07/08/2025 3 :03 PM EDT FREE T4, PLASMA Routine 07/08/2025 3:00 PM EDT documented in this encounter Results * HM Lipid Panel (07/08/2025 3:03 PM EDT) us Melany Rosales DO HEALTH MAINTENANCE Final Re sult * Free T4, Plasma (07/08/2025 3:00 PM EDT) Blood Venous blood specimen / Unknown us Melany Rosales DO LAB BLOOD ORDERABLES Final [...] documented as of this encounter Care Teams Lumber Sticker Relationship Specialty Start Date End Date Rocky Almanzar MD [address] [place] [address] PCP - General 03/18/21 documented as of this encounter
--- OUTSIDE RECORDS SUMMARY | 2025-07-17 10:53 | XMS_ITS | Encounter Summary ---
Author Organization Healthcare Address [address] [place] [address] Care Team Providers Care Freelance Director Name Role Phone Rocky Almanzar MD Primary Care Provider [phone] Encounter Details Date Type Department Care Team (Late st Contact Info) Description 04/28/2025 Telephone [facility] Endocrinology [address] [place] [address] Jason Romero MD [address] [place] [address] Social History Tobacco Use Types [...] with Derek's phone number for refills from [facility]. Pt's was on the phone and was [...] Description 07/17/2025 2:00 PM EDT Office Visit [facility] Audiology [address], [address] [place] [address] Lottie Lund, AuD [address] [place] [address] 07/20/2025 1:00 PM EDT Clinical Support [facility] Endocrinology [address] [place] [address] 07/20/2025 1:30 PM EDT Clinical Support [facility] Endocrinology [address] [place] [address] 01/05/2026 9:40 AM EST Office Visit [facility] Endocrinology [address] [place] [address] Melany Rosales, DO [address] [facility] [address] [place] [address] 01/05/2026 11:00 AM EST Office Visit [facility] [place] [address] , [address] [place] [address] Vivian Macias S, OD [address] [place] [address] documented as of this encounter [...] documented as of this encounter Care Teams Freelance Director Relationship Specialty Start Date End Date Rocky Almanzar MD [address] [place] [address] PCP - General 03/18/21 documented as of this encounter
--- OUTSIDE RECORDS SUMMARY | 2025-07-17 10:53 | XMS_ITS | Patient Health Record ---
Author Organization [facility] Address [address] [facility] 36 [facility] [address] [place] [id number] Care Team Providers Care Supervisor Salvage Name Role Phone Shauna Almanzar Primary Care Provider Emir Berger Unavailable [phone] Trinity Medeiros Unavailable [phone] Doretha Burns Unavailable [phone] Allergies Allergen (clinical drug ingredient) Drug/Non Drug [...] 5.5 Performing Lab: Notes/Report: Test performed by [facility]0 [facility] , [address], [place] [address] Kristian Trevino MD, Legal Project Manager CLIA: [id number] Sodium 139 135-145 mmol/L Potassium 3.7 3.5-5.3 [...] 695 Performing Lab: Notes/Report: Test performed by [facility] [address] [place] [address] , [address], [place] [address] Kristian Trevino MD, Legal Project Manager CLIA: [id number] Albumin/Creatinine Ratio, Urine 695 0-30 ug/mg Microalbumin, [...] 175 Performing Lab: Notes/Report: Test performed by [facility] [address] [place] [address] , [address], [place] [address] Kristian Trevino MD, Legal Project Manager CLIA: [id number] Sodium 140 135-145 mmol/L Potassium 4.1 3.5-5.3 mmol/L Chloride 105 97-108 mmol/L CO2 22 20-32 mmol/L Glucose 175 65-99 mg/dL BUN 12 8-23 mg/dL Creatinine 1.26 0.70-1.30 mg/dL Calcium 9.4 8.6-10.4 mg/dL eGFR by Creatinine 60 >59 mL/min/1.73m2 P-Cortisol, Random Reviewed date:07/07/2025 10:18:42 AM Interpretation: Normal Performing Lab: Notes/Report: Test performed by [facility] [address] , [address], [place] [address] Kristian Trevino MD, Legal Project Manager CLIA: [id number] Cortisol, Random 7.7 CORTISOL REFERENCE RANGE AM Serum: 6.0-18.4 ug/dL PM Serum: 2.7-10.5 ug/dL P-Iron Reviewed date:07/07/2025 10:18:42 AM Interpretation:28 Performing Lab: Notes/Report: Test performed by [facility] [address] [place] [address] , [address], [place] [address] Kristian Trevino MD, Legal Project Manager CLIA: [id number] Iron 28 59-158 ug/dL P-TSH Reviewed date:07/07/2025 10:18:42 AM Interpretation:6.42 Performing Lab: Notes/Report: Test performed by [facility] [address] [place] [address] , [address], [place] [address] Kristian Trevino MD, Legal Project Manager CLIA: [id number] TSH 6.42 0.43-5.25 mU/L Ultrasound : Bladder scan Reviewed date:04/20/2025 10:25:30 AM Interpretation:does not want Performing Lab: Notes/Report: does not want P-Comprehensive Metabolic Pa tarah (CMP) Reviewed date:01/12/2025 11:34:53 AM Interpretation:gluc 144, bun 30, Cr 1.35, gfr 55, alk phos 229 Performing Lab: Notes/Report: Test performed by [facility] [address] [place] [address] , [address], [place] [address] Kristian Trevino MD, Legal Project Manager CLIA: [id number] Sodium 138 135-145 mmol/L Potassium 4.3 3.5-5.3 [...] 1.015 Ketone Neg Bili Neg Gluc 2+ Urinalysis - Inhouse Reviewed date:01/18/2025 02:07:53 PM [...] 232 Performing Lab: Notes/Report: Test performed by [facility] [address] [place], [place] [address] [address] , [address], [place] [address] Kristian Trevino MD, Legal Project Manager CLIA: [id number] Sodium 141 135-145 mmol/L Potassium 3.0 3.5-5.3 [...] Interpretation:23 Performing Lab: Notes/Report: Test performed by [facility] [address] [place] [address] , [address], [place] [address] Kristian Trevino MD, Legal Project Manager CLIA: [id number] Creatine Kinase 23 20-200 U/L V-I-Borjcwep Protein (CRP) Reviewed date:06/10/2025 08:30:05 AM Interpretation:4.00 Performing Lab: Notes/Report: Test performed by [facility], [address] , [place] [address] Kristian Trevino MD, Legal Project Manager CLIA: [id number] C-Reactive Protein (CRP) 4.00 <0.50 mg/dL P-Sed Rate (ESR) Reviewed date:06/10/2025 08:30:05 AM Interpretation:31 Performing Lab: Notes/Report: [facility] , [facility] [place] [address] Kristian Trevino MD, Legal Project Manager CLIA: [id number] Erythrocyte Sedimentation Rate (ESR), Automated 31 <21 mm/hr P-TSH reflex to FT4 Reviewed date:06/10/2025 08:30:05 AM Interpretation:Normal Performing Lab: Notes/Report: [facility] , [place] [address] Kristian Trevino MD, Legal Project Manager CLIA: [id number] TSH reflex to FT4 3.44 0.43-5.25 mU/L P-Vitamin D 25-Hydroxy Reviewed date:06/10/2025 08:30:05 AM Interpretation:Normal Performing Lab: Notes/Report: [facility] [address] , [place] [address] Kristian Trevino MD, Legal Project Manager CLIA: [id number] Vitamin D 25-Hydroxy 57.8 30.0-100.0 ng/mL Interpretation [...] AM Interpretation:cl 109, co2 21, bun 25, [id number] Performing Lab: Notes/Report: NA 137 136-145 mmol/L [...] Performing Lab: Notes/Report: chronic findings, nothing new H-BMP Reviewed date:09/19/2024 01:07:51 PM Interpretation:ordered by specialist Performing Lab: Notes/Report: NA 141 136-145 mmol/L K 3.8 3.5-5.1 mmoL/L CL 112 98-107 mmol/L CO2 21 22.0-30.0 mmol/L GAP 11.8 5-15 mEq/L BUN 22 9-20 mg/dl CREATT 1.20 0.66-1.25 mg/dl GFRAA 72 >60 ML/MIN EGFR 59 >60 ml/min GLU 242 74-100 mg/dl CA 8.4 8.4-10.2 mg/dl Medications Medication SIG (Take, Route, [...] every 6 hrs Active FreeStyle Leroy 3 [place] - as directed 05/12/2025 Not-Taking Mirtazapine 15 mg TAKE ONE TABLET BY MOUTH EVERY DAY AT BEDTIME; Duration: 30 Active Potassium Chloride ER 20 MEQ 1 tablet with food Orally Once a day; Duration: 30 days 06/10/2025 Active Levothyroxine Sodium 75 MCG 1 tablet in the morning on an empty stomach Orally Once a day; Duration: 90 days 07/17/2025 Active Immunizations Vaccine Route Administration Date Status [...] W/U Status Risk Notes Problem Essential hypertension (05175497) Essential (primary) hypertension (I10) Active confirmed Problem Vitamin D deficiency (82359650) Vitamin D deficiency (E55.9) Active confirmed Problem Essential hypertension (36808504) Essential hypertension (I10) Active confirmed Problem Screening for malignant neoplasm of prostate (945547051) Prostate cancer screening (Z12.5) Active confirmed Problem Anorexia (32708441) Anorexia (R63.0) Active con firmed Problem Paroxysmal atrial fibrillation (464171101) Paroxysmal atrial fibrillation (I48.0) Active confirmed Problem Hyperglycemia due to type 2 diabetes mellitus (564250329914543) Type 2 diabetes mellitus with hyperglycemia (E11.65) Active confirmed Problem Mixed hyperlipidemia (081734227) Mixed hyperlipidemia (E78.2) Active confirmed Problem Hyperlipidemia (20944694) Hyperlipidemia, unspecified (E78.5) Active confirmed Problem Hereditary hemochromatosis (38073225) 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) Active confirmed Problem Chronic respiratory failure (87505309) Chronic respiratory failure with hypoxia (J96.11) Active confirmed Problem Autoimmune hepatitis (483014106) Autoimmune hepatitis (K75.4) Active confirmed Problem Cholelithiasis without obstruction (16103134) Calculus of gallbladder without cholecystitis without obstruction (K80.20) Active confirmed Problem Cochlear implant status (Z96.21) Active confirmed Problem Male erectile disorder (660863285) Male erectile disorder (N52.9) Active confirmed Problem Long-term current use of insulin (851572749) 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 (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 (Z79.4) Active confirmed Problem Type II diabetes mellitus without complication (439345913) Type 2 diabetes mellitus without complication (E11.9) Active confirmed Problem Acquired hypothyroidism (870060712) Acquired hypothyroidism (E03.9) Active confirmed Problem Pulmonary fibrosis (49890889) Pulmonary fibrosis (J84.10) Active confirmed Problem Chronic fatigue syndrome (34644050) Chronic fatigue (R53.82) Active confirmed Problem COPD - Chronic obstructive pulmonary disease (18124924) Chronic obstructive pulmonary disease, unspecified COPD type (J44.9) Active confirmed Problem Pneumonia (116601616) Pneumonia of right lower lobe due to infectious organism (J18.9) Active confirmed Problem Hearing loss (97132750) Hearing loss, bilateral (H91.93) Active confirmed Problem Disorder of adrenal gland (39191826) 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) Active confirmed Problem Neutropenia (367280873) Neutropenia, unspecified type (D70.9) Active confirmed Problem Interstitial lung disease (286834509) Interstitial lung disease (J84.9) Active confirmed Problem Seasonal allergic rhinitis (180299514) Seasonal allergic rhinitis, unspecified allergic rhinitis trigger (J30.2) Active confirmed Problem Granulocytopenia (270773826) 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 confirmed Problem Systemic lupus erythematosus (47464035) Lupus (systemic lupus erythematosus) (M32.9) Active confirmed Problem Cardiac arrhythmia (068691268) Cardiac arrhythmia, unspecified cardiac arrhythmia type (I49.9) Active confirmed Problem Malnutrition, calorie (334618398) Caloric malnutrition (E46) Active confirmed Problem Benign prostatic hypertrophy without outflow obstruction (715982810) BPH without urinary obstruction (N40.0) Active confirmed Problem Allergic rhinitis caused by pollen (30299339) Acute seasonal allergic rhinitis due to pollen (J30.1) Active confirmed Problem Sensorineural hearing loss, bilateral (478127173) Sensorineural hearing loss (SNHL) of both ears (H90.3) Active confirmed Problem Cholestatic hepatitis (08170089) Cholestatic hepatitis (K75.89) Active confirmed Problem Skin sensation disturbance (80365605) Sensitive skin (R20.3) Active confirmed Problem Dilatation of aorta (77679008) Dilatation of aorta (I77.819) Active confirmed Problem Tomography - chest abnormal (176620302) Abnormal CT scan, chest (R93.89) Active confirmed Problem Left atrial dilatation (140544320) Left atrial dilatation (I51.7) Active confirmed Problem Chronic vascular insufficiency of intestine (777521080) 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 Problem Protein malnutrition (54506066) Protein malnutrition (E46) Active confirmed Vital Signs Heart Rate 101 /min 07/03/2025 Blood pressure diastolic 70 mm Hg 07/03/2025 Height 65 in 07/03/2025 Blood pressure systolic 124 mm Hg 07/03/2025 Weight 128.0 lbs 07/03/2025 BMI 21.3 kg/m2 07/03/2025 Encounters Encounter Location Date [facility] [address] [place] [id number] 09/05/2024 Shauna Almanzar Pneumonia of left lo wer lobe due to infectious organism J18.9 ; Interstitial lung disease J84.9 ; Chronic respiratory failure with hypoxia J96.11 ; 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 ; Autoimmune hepatitis K75.4 ; Protein malnutrition E46 and Caloric malnutrition E46 [facility] [address] [place], [place] [id number] 09/16/2024 Trinity Medeiros Strep pharyngitis J0 2.0 and Oral candidiasis B37.0 [facility] [address] [place], [place] [id number] 10/09/2024 Shauna Almanzar Lesion of adrenal gl and E27.9 ; Essential hypertension I10 ; Type 2 diabetes mellitus without complication E11.9 ; Acquired hypothyroidism E03.9 ; Hearing loss, bilateral H91.93 ; Cochlear implant status Z96.21 ; Protein malnutrition E46 ; Chronic obstructive pulmonary disease, unspecified COPD type J44.9 and Encounter for immunization Z23 [facility] [address] [facility] [address] [place], [place] [id number] 11/03/2024 Emir Laurel Acute cough R05.1 [facility] [address] [facility] [address] [place], [place] [id number] 11/07/2024 Shauna Almanzar Type 2 diabetes aquilino itus without complication E11.9 ; Acquired hypothyroidism E03.9 and Hereditary hemochromatosis E83.110 [facility] [address] [facility] [address] [place], [place] [id number] 01/09/2025 Shauna Almanzar Type 2 diabetes aquilino itus without complication E11.9 ; Hereditary hemochromatosis E83.110 ; Cochlear implant status Z96.21 ; Chronic obstructive pulmonary disease, unspecified COPD type J44.9 ; Essential (primary) hypertension I10 ; Protein malnutrition E46 and Gross hematuria R31.0 [facility] [address] [facility] [address] [place], [place] [id number] 01/15/2025 Shauna Almanzar Interstitial lung disease J84.9 ; 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 ; Autoimmune hepatitis K75.4 ; Protein malnutrition E46 ; Cochlear implant status Z96.21 ; Type 2 diabetes mellitus without complication E11.9 and Hematuria R31.9 [facility] [address] [facility] [address] [place], [place] [id number] 02/11/2025 Emir Laurel Type 2 diabetes aquilino itus with hyperglycemia E11.65 ; 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 (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.4 ; Gross hematuria R31.0 and Body mass index (BMI) of 19.0 to 19.9 in adult Z68.1 [facility] [address] [facility] [address] [place], [place] [id number] 03/13/2025 Doretha Burns Drug interaction Z78 .9 [facility] [address] [facility] [address] [id number] 04/02/2025 Shauna Almanzar Type 2 diabetes aquilino itus without complication E11.9 ; 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 ; Cholestatic hepatitis K75.89 ; 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 (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.4 ; 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 ; Generalized weakness R53.1 and BMI 20.0-20.9, adult Z68.20 [facility] [address] [facility] [address] [id number] 04/30/2025 Shauna Almanzar Type 2 diabetes aquilino [...] adult Z68.22 and Cochlear implant status Z96.21 [facility] [address] [facility] [address] [id number] 06/09/2025 Emir Berger Generalized weakness R53.1 ; Anorexia R63.0 and Vitamin D deficiency E55.9 [facility] [address] [facility] [address] [id number] 07/03/2025 Shauna Almanzar Hypokalemia E87.6 ; Essential hypertension I10 ; Chronic fatigue R53.82 ; Protein malnutrition E46 ; Type 2 diabetes mellitus with hyperglycemia E11.65 ; 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 (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.4 ; 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 and 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 [facility] [address] [facility] [address] [id number] 07/07/2025 Shauna Almanzar [facility] [address] [facility] [address] [id number] 07/16/2025 Shauna Almanzar [facility] [address] [id number] 09/01/2024 J Rogerio Yohan [facility] [address] [place], [place] [id number] 09/04/2024 J Rogerio Yohan [facility] [address] [place], [place] [id number] 09/08/2024 J Rogerio Almanzar [facility] [address] [place], [place] [id number] 09/10/2024 J Rogerio Yohan [facility] [address] [place], [place] [id number] 09/15/2024 J Rogerio Yohan [facility] [address] [place], [place] [id number] 09/16/2024 J Rogerio Almanzar [facility] [address] [place], [place] [id number] 09/25/2024 J Rogerio Yohan [facility] [address] [place], [place] [id number] 11/03/2024 Emir Laurel [facility] [address] [place], [place] [id number] 01/12/2025 J Rogerio Yohan [facility] [address] [place], [place] [id number] 05/12/2025 J Rogerio Almanzar [facility] [address] [place], [place] [id number] 05/12/2025 J Rogerio Yohan [facility] [address] [place], [place] [id number] 06/04/2025 J Rogerio Yohan [facility] [address] [place], [place] [id number] 06/10/2025 Emir Laurel [facility] [address] [place], [place] [id number] 06/10/2025 J Rogerio Yohan [facility] [address] [place], [place] [id number] 06/23/2025 J Rogerio Almanzar Colon cancer screeni Z12.11 [facility] [address] [place] [id number] 07/06/2025 Shauna Almanzar Assessments Encounter Date Diagnosis [...] to resume use of his CGM 02/11/2025 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 (current) use of insulin (ICD-10 - [...] mellitus with hyperglycemia (ICD-10 - E11.65) 04/02/2025 [facility] (current) use of insulin (ICD-10 [...] Cochlear implant status (ICD-10 - Z96.21) 07/03/2025 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 (current) use of insulin (ICD-10 - [...] [address], [address], [place], [place], [id number], Insurance Providers Payer Name Payer Address Payer Phone Subscriber Number Group Number Insured Name Patient Relationship to Insured Coverage Start Date Coverage End Date [facility] [address] [address] [place] [id number] HERMILA GOLDEN Self - patient is the insured Medical (General) History Medical History History ICD Code Seasonal Allergies Kidney Stones Steatohepatitis hemachromatosis,(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 Smalls and Dr. 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
--- OUTSIDE RECORDS SUMMARY | 2025-07-17 10:53 | XMS_ITS | Clinical Summary ---
Author Organization [facility] Address [address] [place] [address] Care Team Providers Care Venetian Blind Worker Name Role Phone Rocky Almanzar MD Primary Care Provider [phone] Allergies Active Allergy Reactions Criticality Noted Date [...] the same time. 04/02/20 25 025 Discontinued Hospital, Clinic, or Other Facility Administered Medication Ordered Dose Route Frequency Start Date End Date Status cosyntropin (Cortrosyn) injection 250 mcgIndications:Elevation of adrenocorticotropic hormone (ACTH) 250 mcg IM Once 07/11/2025 Active Active Problems Problem Noted Date Diagnosed [...] Encounters Date Type Department Care Team Description 07/10/2025 Orders Only [facility] [address] [place] [address] Melany Rosales, DO 07/09/2025 Orders Only [facility] [address] [place] [address] Melany Rosales, DO 07/09/2025 [facility] [address] [place] [address] Melany Rosales, DO 07/08/2025 Orders Only [facility] [address] [place] [address] Melany Rosales, 07/07/2025 11:40 AM EDT Office Visit [facility] [address] [place] [address] Melany Rosales DO Type 2 diabetes mellitus with hyperglycemia, with long-term current use of insulin ([facility]) (Primary Dx); Hemochromatosis, unspecified hemochromatosis type; Acquired hypothyroidism; Histoplasmosis; Elevation of adrenocorticotropic hormone (ACTH) 07/07/2025 Travel 06/30/2025 Refill [facility] Endocrinology [address] [place] [address] Jason Romero MD 05/04/2025 Refill [facility] End[facility] [address] [place] [address] Jason Romero MD Type 2 diabetes mellitus with hyperglycemia, with long-term current use of insulin ([facility]) 04/28/2025 Telephone [facility] Endocrinology [address] [place] [address] Jason Romero MD 04/24/2025 [facility] Diabetes Education [address] [place] [address] Rocky Almanzar MD [facility] - Patient Message from Last 3 Months Immunizations Immunization Administration Dates Next Due Hep A, Adult 03/03/2013,07/31/2012 Influenza Vaccine, Quadrivalent, Adjuvanted 10/05,09/22/2021 Influenza, Unspecified 09/22/2021 Influenza, high-dose, quadrivalent 08/16/2020 Pneumococcal Polysaccharide PPV23 08/13/2018 Rsvpref, Recombinant, Protein Subunit, Adjuvent 11/02/2023 Family History Medical History Relation Name Comments COPD Father Diabetes Father Cancer Mother Aertha Ovarian cancer Mother Aretah Relation Name Status Comments Father Mother Aretha [...] EDT Office Visit [facility] Audiology [address], [address] [place] [address] Lottie Lund, AuD [address] [place] [address] 07/20/2025 1:00 PM EDT Clinical Support [facility] [address] [place] [address] 07/20/2025 1:30 PM EDT Clinical Support [facility] [address] [place] [address] 01/05/2026 9:40 AM EST Office [facility] [address] [place] [address] Melany Rosales DO [address] [place] [address] 01/05/2026 11:00 AM EST Office Visit [facility] [address], [address] [place] [address] Vivian Macias, OD [address] [place] [address] Health Maintenance Due Date Last Done Comments [facility]-Depression Screening 1950 [facility]-Medicare Annual Wellness (AWV) 1950 [facility]-Infant/Child/Adol SDOH Screenings 1950 Diabetes: Dental Exam 1961 [facility]- SDOH Screenings 1969 [facility]-Adult SDOH Screenings 1969 [facility]-DTaP,Tdap,and Td Vaccines (1 - Tdap) 1970 [facility]-Zoster Vaccines (1 of 2) 1970 CT Colonography 1996 FIT-DNA 1996 FIT 1996 FOBT 1996 Sigmoidoscopy 1996 [facility]-Abdominal Aortic Aneurysm (AAA) Screening 2016 [id number] Vaccine (7 - Moderna risk 2023- season) [...] this topic Medical Devices Implanted Type Area High Energy Forming Equipment Operator Device Identifier Shelf Expiration Date Model / Serial / Lot Roseline mock Advantage Ci Hifocus 1j Electrode--06/05 Implanted:06/05 by Ky Del Rio MD (Quantity not on file) Cochlear Left: Ear Primadesk [id number] / [id number] / Description:Roseline Mock Advant age CI HiFocus 1J electrode--cochlear implant by Dr. Del Rio at [facility] on 06/21/2017, operative note in Epic. LEFT EAR. Roseline ZAPATA 3D Cochlear implant REF: [id number] Serial number: [id number] Procedures Procedure Name Priority Date/Time Associated Diagnosis Comments HP LINK LIPID PANEL Routine 07/08/2025 3 :03 PM EDT FREE T4, PLASMA Routine 07/08/2025 3:00 PM EDT CORTISOL Routine 07/08/2025 2:53 PM EDT ADRENOCORTICOTROPIC HORMONE (ACTH) Routine 07/08/2025 7:54 AM EDT POCT GLYCOSYLATED HEMOGLOBIN (HGB A1C) Routine 07/07/2025 12:03 PM EDT Type 2 diabetes mellitus with hyperglycemia, with long-term current use of insulin ([facility]) COLONOSCOPY 08/03/2017 HEPATITIS C ANTIBODY W/REFLEX TO HCV QUANT PCR Routine 08/15/2016 10:05 AM EDT from Last 3 Months or Most Recently Relevant to Health Maintenance Results * HM Lipid Panel (07/08/2025 3:03 PM EDT) us Melany Rosales DO HEALTH MAINTENANCE Final Re sult * Free T4, Plasma (07/08/2025 3:00 PM EDT) Blood Venous blood specimen / Unknown us Melany Rosales DO LAB BLOOD ORDERABLES Final Result * Cortisol (07/08/2025 2:53 PM EDT) Blood Venous blood specimen / Unknown Melany Rosales DO LAB REF LAB BLOOD AND FLUID ORD Final Result * ACTH (07/08/2025 7:54 AM EDT) Blood Venous blood specimen / Unknown Melany Rosales DO LAB BLOOD ORDERABLES Final Result * POCT glycosylated hemoglobin (Hb A1C) (07/07/2025 12:03 PM EDT) [facility] POCT Hemoglobin A1C 6.7 <5.7% Non-Diabet ic % HEALTHCARE LAB Kit Lot Number [id number] [facility] Kit Expiration Date 04/2027 [facility] Blood Venous blood specimen / Unknown 07/07/2025 12:03 PM EDT Melany Rosales DO POINT OF CARE TEST ENTER/ED IT ORDERABLES Edited Result - Final Performing Organization Address City/[facility]/ZIP Co de Phone Number [facility] [address] [place] [phone] * COLONOSCOPY (08/03/2017) Anatomical Region Laterality Modality Endoscopy Narrative 08/03/2017 Ordered by an unspecified provider. 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
[2025-07-17 12:06] LABS: PHA INR Fingerstick 2.2 (0.9-1.1)
== END 2025-07-17 12:10 ==
LOC: ACC 10:50
PROVIDERS: PCP Family Medicine; Visit Provider Nurse Practitioner
DX: I48.0 Paroxysmal atrial fibrillation (principal); Z79.01 Long term (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 of anticoagulants
CPT/HCPCS: 85610; 99211; G0463

== ENCOUNTER 2025-07-31 11:01 | Outpatient (CLI) | payer MEDICARE, SELFPAY ==
--- OUTSIDE RECORDS SUMMARY | 2025-04-02 10:15 | XMS_ITS ---
Author Organization [facility] Address 1210 [facility] [address] [phone] Care Team Providers Care Ore Fielder Name Role Phone Shauna Almanzar Primary Care Provider [phone] Allergies Allergen (clinical drug ingredient) Drug/Non Drug [...] 8.5, prot 5.5 Performing Lab: Notes/Report: CLIA: [id number] Kristian Trevino MD, Mail Delivery Supervisor [address] [facility] , [address], [place] [address] Test performed by [employer] Sodium 139 135-145 mmol/L Potassium 3.7 3.5-5.3 [...] 695 Performing Lab: Notes/Report: Test performed by [employer] [address] [place] [address] , [address], [place] [address] Kristian Trevino MD, Mail Delivery Supervisor CLIA: [id number] Albumin/Creatinine Ratio, Urine 695 0-30 ug/m g [...] Grigsby 05/18/2025 02:47:51 PM > faxed to [facility] PT Referral Priority Routine REASON FOR [...] 04/02/2025 Encounters Encounter Location Date 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 [address], [address], [place], [place], [id number], Progress Notes * HERMILA GOLDENOB: [birth year] (75 yo M)Acc No.[id number]:04/02/2025 Progress Notes Patient: HERMILA BUCIO Provider: Shauna Almanzar M.D. :1950 A ge:75 Y S ex:Male Date:04/02/2025 Address:[address] [place] [address] 32 , [facility] Subjective: * Chief Complaints: * 1 . 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 B [place] 20.0-20.9, adult - Z68.20? Plan: * Treatment: [...] G 2211 Complex e/[place], [address] GLYCATED HEMOGLOBIN TEST, Modifiers: QW , G8752 [...] * Images: Billing Information: * Visit Code: 82158 Office Visit, Est Pt., Level 4. * Procedure Codes: G2211 Complex e/[place]. [address] GLYCATED HEMOGLOBIN TEST. Modifiers: QW G8752 MOST RECENT SYSTOLIC BP < 140MM HG. G8754 MOST RECENT DIASTOLIC BP < 90MM HG. 3046F HEMOGLOBIN A1C LEVEL > 9.0%. G8420 BMI<30 AND >=22 CALC & DOCU. 1036F TOBACCO NON-USER. 3017F COLORECTAL CA SCREEN DOC REV. * Electronic signature of Shauna Almanzar MD on 07/31/2025 at 11:05 AM EDT Sign off status: Pending * Provider: Shauna Almanzar M.D. Date: 0 04/02/2025 Generated for Marissa mendoza/Rei/eTransmitting on: 0 07/31/2025 11:05 AM EDT History and Physical Notes * [...]
--- OUTSIDE RECORDS SUMMARY | 2025-04-30 10:00 | XMS_ITS ---
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) Referral [facility] Referring Provider First Name Shauna Beatty [...] W/U Status Risk Notes Problem Cardiac arrhythmia (545257512) Cardiac arrhythmia, unspecified cardiac arrhythmia type (I49.9) Active confirmed Problem Chronic vascular insufficiency of intestine (575744186) 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 Vital Signs Blood pressure systolic 130 mm Hg 04/30/20 25 Blood pressure diastolic 62 mm Hg 025 Heart Rate 85 /min 04/30/2025 Height 65 in 04/30/2025 Weight 133.8 lbs 04/30/2025 BMI 22.26 kg/m2 04/30/2025 Encounters Encounter Location Date Provider Diagnosis [facility] [address] [id number] 04/30/2025 Shauna Almanzar Type 2 diabetes aquilino itus with hyperglycemia E11.65 ; terminal superintendent (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 :1950 A ge:75 Y S ex:Male Date:04/30/2025 Address:[address] [facility] [address] , [facility] Subjective: * Chief Complaints: * 1 . 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 B SC 22.0-22.9, adult - Z68.22 1 3. C [...] * Images: Billing Information: * Visit Code: 92308 Office Visit, Est Pt., Level 4. * Procedure Codes: G2211 Complex e/m visit add on. 1036F TOBACCO NON-USER. G8420 BMI<30 AND >=22 CALC & DOCU. G8950 PREHTN/HTN BP DOC INDCD F/U DOC. G8752 MOST RECENT SYSTOLIC BP < 140MM HG. G8754 MOST RECENT DIASTOLIC BP < 90MM HG. * Electronic signature of Shauna Almanzar MD on 07/31/2025 at 11:04 AM EDT Sign off status: Pending * Provider: Shauna Almanzar M.D. Date: 0 04/30/2025 Generated for Collinsi kelly/Fajacek/eTransmitting on: 0 07/31/2025 11:04 AM EDT History and Physical Notes [...]
--- OUTSIDE RECORDS SUMMARY | 2025-06-09 06:00 | XMS_ITS ---
Author Organization [facility] Address 1210 [facility] 36 [facility] [address] [place] [id number] Care Team Providers Care Associate Professor Of Philosophy Name Role Phone Shauna Almanzar Primary Care Provider Emir Berger Unavailable [phone] Allergies Allergen (clinical drug ingredient) Drug/Non Drug [...] 232 Performing Lab: Notes/Report: Test performed by [employer] [address] [place] [address] , [address], [place] [address] Kristian Trevino MD, High Density Press Operator CLIA: [id number] Sodium 141 135-145 mmol/L Potassium 3.0 3.5-5.3 [...] Interpretation:23 Performing Lab: Notes/Report: Test performed by [facility] [address] [facility], [place] [address] Kristian Trevino MD, High Density Press Operator CLIA: [id number] Creatine Kinase 23 20-200 U/L D-Y-Uqfiqtan Protein (CRP) Reviewed date:06/10/2025 08:30:05 AM Interpretation:4.00 Performing Lab: Notes/Report: Test performed by [facility] [address] [place] , [place] [address] Kristian Trevino MD, High Density Press Operator CLIA: [id number] C-Reactive Protein (CRP) 4.00 <0.50 mg/dL P-Sed Rate (ESR) Reviewed date:06/10/2025 08:30:05 AM Interpretation:31 Performing Lab: Notes/Report: Test performed by [employer] [address] [facility], [place] [id number] Kristian Trevino MD, High Density Press Operator CLIA: [id number] Erythrocyte Sedimentation Ra te (ESR), Automated 31 <21 mm/hr P-TSH reflex to FT4 Reviewed date:06/10/2025 08:30:05 AM Interpretation:Normal Performing Lab: Notes/Report: Test performed by [facility] [address] [place] [address] , [address], [place] [address] Kristian Trevino MD, High Density Press Operator CLIA: [id number] TSH reflex to FT4 3.44 0.43-5.25 mU/L P-Vitamin D 25-Hydroxy Reviewed date:06/10/2025 08:30:05 AM Interpretation:Normal Performing Lab: Notes/Report: Test performed by [employer] [address] [place] [address] , [address], [place] [address] Kristian Trevino MD, High Density Press Operator CLIA: [id number] Vitamin D 25-Hydroxy 57.8 30.0-100.0 ng/mL Interpretation [...] Duration: 90 days Active FreeStyle Leroy 3 [place] - as directed 05/12/2025 Not-Taking Levothyroxine Sodium [...] Status W/U Status Risk Notes Problem Anorexia (86041643) Anorexia (R63.0) Active confirmed Vital Signs Weight 130 lbs 06/09/2025 Blood pressure systolic 112 mm Hg 06/09/20 25 Blood pressure diastolic 68 mm Hg 025 Heart Rate 64 /min 06/09/2025 Height 65 in 06/09/2025 BMI 21.63 kg/m2 06/09/2025 Encounters Encounter Location Date Provider Diagnosis [facility] 1210 [facility] 36 [facility] [address] [place]ae[place] [id number] 06/09/2025 Emir Berger Generalized weakness R53.1 ; [...] Name:Shauna Merida er, 08/07/2025 11:00:00 AM, 1210 [facility] 36 [facility], [address], [place], [id number], Progress Notes * HERMILA GOLDENOB: [birth year] (75 yo M)Acc No.[id number]:06/09/2025 Progress Notes Patient: HERMILA BUCION Provider: Jaden Berger M.D. 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, user name and password for portal: [email or web address]...[email or web address], type 2 diabetes, followed at [facility], 06/05/2019 CT: healing of R lung [...] mouth daily , Not-Taking FreeStyle Leroy 3 [place] - Device as directed , Not-Taking FreeStyle [...] AM EDT > See phone encounter ?LAB: H-R-Otupayji Protein (CRP) (Collection Date & Time - [...] G 2211 Complex e/[place], [address] CBC WITH AUTO DIFF, 1036F TOBACCO NON-USER, G8783 BP SCR PRFRM RCMDD DEFIND SCR INTVL, G8752 MOST RECENT SYSTOLIC BP < 140MM HG, G8754 MOST RECENT DIASTOLIC BP < 90MM HG * Follow Up: v ia phone to report test results * Images: Billing Information: * Visit Code: 54577 Office Visit, Est Pt., Level 4. * Procedure Codes: G2211 Complex e/[place]. [address] CBC WITH AUTO DIFF. 1036F TOBACCO NON-USER. G8783 BP SCR PRFRM RCMDD DEFIND SCR INTVL. G8752 MOST RECENT SYSTOLIC BP < 140MM HG. G8754 MOST RECENT DIASTOLIC BP < 90MM HG. * Electronic signature of Elidia Berger MD on 07/31/2025 at 11:06 AM EDT Sign off status: Pending * Provider: Jaden Berger M.D. Date: 06/09/2025 Generated for Marissa mendoza/Rei/Johnsmitting on: 0 07/31/2025 11:06 AM EDT History and Physical Notes * [...]
--- OUTSIDE RECORDS SUMMARY | 2025-06-15 11:23 | XMS_ITS ---
Author Organization [facility] Address [address] [place] [address] [place] [address] Phone Care Team Providers Care Neon Sign Installer Name Role Phone Sukumar CUEVAS, Rocky Griggs [ ] Conditions or Problems No information available. Medications Medication Instructions Start Date Stop Date Generic Name [facility] Provider MINOCYCLINE HCL 100 MG CAPS 1 capsule by mouth twice a day Take one twice a day for three days then only take 1 once a day 1 minocycline [id number] Rocky Patino MD budesonide 3 mg by [...] Detail Appointment 11:00 AM Rocky Patino MD, [facility]0 [facility], [address], [place], [address], Pending order New Oral Antibio tic Pending [...]
--- OUTSIDE RECORDS SUMMARY | 2025-06-23 07:29 | XMS_ITS ---
Author Organization [facility] Address [address] [place], [place] [phone] Care Team Providers Care Gaming Worker Name Role Phone Shauna Almanzar Primary Care Provider REASON FOR VISIT due col Encounters Encounter Location Date Provider Diagnosis [facility] [address] [place], [place] [phone] 06/23/2025 Shauna Almanzar Colon cancer screening Z12.11 Assessments Encounter Date Diagnosis (ICD Code) Assessment Notes Treatment Notes Treatment Clinical Notes Section Notes 06/23/2025 Colon cancer screening (ICD-10 - Z12.11) Plan Of Treatment Pending Test Test Name Order Date Cologuard 06/23/2025 Next Appt Details Provider Name:Shauna Merida er, 08/07/2025 11:00:00 AM, [address], [address], [place], [place], [id number], Progress Notes * HERMILA GOLDENOB: [birth year] (75 yo M)Acc No.[id number]:06/23/2025 Patient: Daniele CEDRICKRAJIVHERMILA :1950 A ge:75 Y S ex:Male Address:[address], [place] [address] Subjective: * Chief Complaints: * D ue col * Medical History: * Surgical History: * Hospitalization/Major Diagno stic Procedure: * Medications: Objective: * Vitals: * Physical Examination: Assessment: * Assessment: 1. C olon cancer screening - Z12.11 (Primary) Plan: * Treatment: * Procedure Codes: * true * Date: Generated for Marissa mendoza/Rei/Jeremiah on: 0 07/31/2025 11:05 AM EDT
--- OUTSIDE RECORDS SUMMARY | 2025-07-03 07:45 | XMS_ITS ---
Author Organization [facility] Address 1210 [facility] [address] [id number] Care Team Providers Care Erp Technical Lead Name Role Phone Shauna Almanzar [...] 10:18:42 AM Interpretation:Glu 175 Performing Lab: Notes/Report: CLIA: [id number] Kristian Trevino MD, Machine Silk Screen Printer [address] [place] [address] , [address], [place] [address] Test performed by [facility], [facility] Sodium 140 135-145 mmol/L Potassium 4.1 3.5-5.3 mmol/L Chloride 105 97-108 mmol/L CO2 22 20-32 mmol/L Glucose 175 65-99 mg/dL BUN 12 8-23 mg/dL Creatinine 1.26 0.70-1.30 mg/dL Calcium 9.4 8.6-10.4 mg/dL eGFR by Creatinine 60 >59 mL/min/1.73m2 P-Cortisol, Random Reviewed date:07/07/2025 10:18:42 AM Interpretation: Normal Performing Lab: Notes/Report: CLIA: [id number] Kristian Trevino MD, Machine Silk Screen Printer [address] [place] [address] , [place] [address] Test performed by [employer] Cortisol, Random 7.7 CORTISOL REFERENCE RANGE AM Serum: 6.0-18.4 ug/dL PM Serum: 2.7-10.5 ug/dL P-Iron Reviewed date:07/07/2025 10:18:42 AM Interpretation:28 Performing Lab: Notes/Report: Test performed by [facility] [address] [place] [address] , [place] [address] Kristian Trevino MD, Machine Silk Screen Printer CLIA: [id number] Iron 28 59-158 ug/dL P-TSH Reviewed date:07/07/2025 10:18:42 AM Interpretation:6.42 Performing Lab: Notes/Report: Test performed by [facility] [address] [place] [address] , [place] [address] Kristian Trevino MD, Machine Silk Screen Printer CLIA: [id number] TSH 6.42 0.43-5.25 mU/L REASON FOR VISIT [...] 90 days Active FreeStyle Leroy 3 [place] - as directed 05/12/2025 Not-Taking Mirtazapine 15 [...] 07/03/2025 Encounters Encounter Location Date [facility] [address] [id number] 07/03/2025 Shauna Almanzar Hypokalemia E87.6 ; Essential hypertension I10 ; Chronic fatigue R53.82 ; Protein malnutrition E46 ; Type 2 diabetes mellitus with hyperglycemia E11.65 ; 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 :1950 A ge:75 Y S ex:Male Date:07/03/2025 Address:[address] [place] [address] 32 , [facility] Subjective: * Chief Complaints: * 1 . [...] Palpitations. * ROS: D ERMATOLOGY: no R gurmete. [...] Impaired fasting glucose, Gets yearly eye exams, [facility], Questionable Dx Lupus erythematosus 2015, Granuloma annulare [...] bedtime , Not-Taking FreeStyle Leroy 3 [place] - Device as directed , Not-Taking FreeStyle [...] drenal abnormality - E27.9 9 . B [place] 21.0-21.9, adult - Z68.21? Plan: * Treatment: [...] G 2211 Complex e/[place], [address] CBC WITH AUTO DIFF, 25623 GLYCATED HEMOGLOBIN TEST, Modifiers: QW , 40207 CAPILLARY BLOOD DRAW, 1036F TOBACCO NON-USER, G8950 PREHTN/HTN BP DOC INDCD F/U DOC, G8752 MOST RECENT SYSTOLIC BP < 140MM HG, G8754 MOST RECENT DIASTOLIC BP < 90MM HG, 3044F HG A1C LEVEL LT 7.0% * Follow Up: 4 Weeks * Images: Billing Information: * Visit Code: 47357 Office Visit, Est Pt., Level 4. * Procedure Codes: G2211 Complex e/[place]. [address] CBC WITH AUTO DIFF. 10118 GLYCATED HEMOGLOBIN TEST. Modifiers: QW 39977 CAPILLARY BLOOD DRAW. 1036F TOBACCO NON-USER. G8950 PREHTN/HTN BP DOC INDCD F/U DOC. G8752 MOST RECENT SYSTOLIC BP < 140MM HG. G8754 MOST RECENT DIASTOLIC BP < 90MM HG. 3044F HG A1C LEVEL LT 7.0%. * Electronic signature of Shauna Almanzar MD on 07/31/2025 at 11:05 AM EDT Sign off status: Pending * Provider: Shauna Almanzar M.D. Date: 07/03/2025 Generated for Marissa mendoza/Rei/eTransmitting on: 0 07/31/2025 [...]
--- OUTSIDE RECORDS SUMMARY | 2025-07-07 11:40 | XMS_ITS | Encounter Summary ---
Author Organization [facility] Address [address] [place] [address] Care Team Providers Care Corporate Services Manager Name Role Phone Rocky Almanzar MD Primary Care Provider [phone] Reason for Referral * Consultation (Routine) - Authorized Specialty Diagnoses / Procedures Referred By Contac t Referred To Contact Diagnoses Type 2 diabetes mellitus with hyperglycemia, with long-term current use of insulin Hemochromatosis, unspecified hemochromatosis type Acquired hypothyroidism Histoplasmosis Angelica Allan DO [address] [address] Phone: tel: fax: Referral ID Status Reason Start Date Expiration Date V isits Requested Visits Authorized [id number] Authorized 07/07/2025 01/06/2027 1 1 Encounter Details Date Type Department Care Team (Late st Contact Info) Description 07/07/2025 11:40 AM EDT Office Visit [facility] Endocrinology [address] [place] [address] Angelica Allan DO [address] [facility] [address] [place] [address] Type 2 diabetes mellitus with [...] AM EDT Spoke with pt about connecting [facility] CGM to [facility] Clinic. Pt does have ahmet on phone, but has not created profile or used a login to be able to share with [facility]. Provided pt with instructions on how to [...] and decreased strength. He sees GI at [place]. He had been having glucoses >350. He [...] hyperglycemia, with long-term current use of insulin ([facility]) (Primary) - POCT glycosylated hemoglobin (Hb [...] care. Electronically signed by: Angelica Allan DO [facility] ENDOCRINOLOGY [address] [facility] [place]. [address] PHONE [phone] FAX: [phone] Post Visit Addendum: Labs reviewed. FLP noted [...] Description 01/05/2026 9:40 AM EST Office Visit [facility] Endocrinology [address] [place] [address] Angelica Allan DO [address] [place] [address] 01/05/2026 11:00 AM EST Office Visit [facility] [place] [address] [place] [address] Vivian Macias S, OD [address] [place] [address] Scheduled Orders Name Type Priority Associated Diagnoses Orde r Schedule Cortisol Lab Routine Histoplasmosis Expected: 07/07/2025 (Approximate), Expires: 07/07/2026 ACTH Lab Routine Histoplasmosis Expected: 07/07/2025 (Approximate), Expires: 07/07/2026 Albumin-creatinine ratio, urine, random Lab Routine Type 2 diabetes mellitus with hyperglycemia, with long-term current use of insulin ([facility]) Expected: 07/07/2025 (Approximate), Expires: 07/07/2026 Lipid panel Lab Routine Type 2 diabetes mellitus with hyperglycemia, with long-term current use of insulin ([facility]) Expected: 07/07/2025 (Approximate), Expires: 07/07/2026 TSH Lab Routine Acquired hypothyroidism Expected: 07/07/2025 (Approximate), Expires: 07/07/2026 T4, free Lab Routine Acquired hypothyroidism Expected: 07/07/2025 (Approximate), Expires: 07/07/2026 Scheduled Referrals Name Type Priority Associated Diagnoses Orde r Schedule Follow Up [facility] Outpatient Referral Routine Type 2 diabetes mellitus with hyperglycemia, with long-term current use of insulin ([facility]) Hemochromatosis, unspecified hemochromatosis type Acquired hypothyroidism Histoplasmosis Expected: 01/04/2026, Expires: 01/08/2027 documented as of this encounter Procedures Procedure Name Priority Date/Time Associated Diagnosis Comments POCT GLYCOSYLATED HEMOGLOBIN (HGB A1C) Routine 07/07/2025 12:03 PM EDT Type 2 diabetes mellitus with hyperglycemia, with long-term current use of insulin ([facility]) documented in this encounter Results * CORTISOL, 60 (07/20/2025 2:40 PM EDT) Cortisol Time=60 21.00 Before 10am: 3.7 - 19.4. After 5pm: 2.9 - 17.3 ug/dL 07/20/2025 8:20 PM EDT [facility] Comment: Testing performed on [employer] [facility] Office Assistant, standardized against PRISON Reference Standard concentration values [...] Allan DO LAB BLOOD ORDERABLES Final Result [facility] [address] [place] [address] * Cortisol, 30 (07/20/2025 2:03 PM EDT) Cortisol,Time=30 18.30 Before 10am: 3.7 - 19.4. After 5pm: 2.9 - 17.3 ug/dL 07/20/2025 8:19 PM EDT [facility] Comment: Testing performed on [employer] [facility] Office Assistant, standardized against PRISON Reference Standard concentration values [...] BLOOD ORDERABLES Final Result Performing Organization Address [facility] Co de Phone Number [facility] [address] [place] [address] * (ABNORMAL) ACTH (07/20/2025 1:28 PM EDT) ACTH 68.2(H) 7.2 - 63 pg/mL 07/20/2025 5:38 PM EDT [facility] Blood Venous blood specimen / Unknown Venipuncture / Unknown 07/20/2025 1:28 PM EDT 07/20/2025 1:42 PM EDT Angelicalorena Allan DO LAB BLOOD ORDERABLES Final Result [facility] [address] [place] [address] * Cortisol, Time=0 (07/20/2025 1:28 PM EDT) Cortisol 8.20 Before 10am: 3.7 - 19.4. After 5pm: 2.9 - 17.3 ug/dL 07/20/2025 8:23 PM EDT [facility] Comment:Testing performed on [employer] [facility] Office Assistant, standardized against PRISON Reference Standard concentration values assigned by LC-MS/MS and verified by BCR 192 and BCR 193 certified reference materials. Blood Venous blood specimen / Unknown Venipuncture / Unknown 07/20/2025 1:28 PM EDT 07/20/2025 4:08 PM EDT us Angelica Allan DO LAB REF LAB BLOOD AND FLUID ORD Final Result Performing Organization Address City/[facility]/ZIP Co de Phone Number [facility] [address] [place] [address] * POCT glycosylated hemoglobin (Hb A1C) (07/07/2025 12:03 PM EDT) POCT Hemoglobin A1C 6.7 <5.7% Non-Diabet ic % [facility] Kit Lot Number [id number] [facility] Kit Expiration Date 04/2027 [facility] Blood Venous blood specimen / Unknown 07/07/2025 12:03 PM EDT us Angelica Allan DO POINT OF CARE TEST ENTER/ED IT ORDERABLES Edited Result - Final Performing Organization Address City/[facility] Co de Phone Number [facility] [address] [place] [address] documented in this encounter Visit Diagnoses Diagnosis [...] as of this encounter Care Teams Corporate Services Manager Relationship Specialty Start Date End Date Rocky Almanzar MD [address] [place] [address] PCP - General 03/18/21 documented as of this encounter
--- OUTSIDE RECORDS SUMMARY | 2025-07-17 14:00 | XMS_ITS | Encounter Summary ---
Author Organization [facility] Address [address] [place] [address] Care Team Providers Care Learning Coordinator Name Role Phone Rocky Almanzar MD Primary Care Provider [phone] Reason for Visit * Reason Comments Hearing Loss Encounter Details Date Type Department Care Team (Late st Contact Info) Description 07/17/2025 2:00 PM EDT Office Visit [facility] Audiology [address], [address] [place] [address] Lottie Lund, AuD [address] [place] [address] Sensorineural hearing loss (SNHL) of both ears Social History Tobacco Use Types Packs/Day Years [...] Progress Notes - Lottie Lund, AuD - 07/17/2025 2:00 PM EDT Referring Provider: César Griffin MD COCHLEAR IMPLANT MAPPING APPOINTMENT Patient Status: Mr. Trevino was seen for cochlear implant mapping appointment. He was accompanied byhis Christine and they report that his hearing is recently gotten slightly worse. He has recently been taken off of his steroid regimen and noticed a considerable change after that. His left cochlear implant processor is not an optimal working condition and he notices a significant difference in his left ear hearing now than his right. His left ear is perceived as much worse. His history is positive for severe to profound bilateral sensorineural hearing loss and bilateral cochlear implantation. Condition of Implant Site: Mr. Trevino's cochlear implant incisions and magnet sites are within normal limits with no redness or edema. Of note, he fell out of the bed last night and does have a smalllaceration over his right ear that seems to have scabbed over well. I asked them to keep a close eye on it and let us know if it does not seem to heal well. 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 I measured his Clevels across the frequency range in created a new primary map for him to use. He felt like the sound quality was improved for that ear. His left side cochlear implant processor is quite old at this point and not working well or reliably. I will request an upgrade for his left ear processor and he will advise us when he is receive that. ASSESSMENT/PLAN Mr. Trevino will let us know when he receives his upgraded processor and he will be scheduled for programming at that time. documented in this encounter Plan of Treatment Upcoming Encounters Date Type Department Care Team (Late st Contact Info) Description 01/05/2026 9:40 AM EST Office Visit [facility] [address] [place] [address] Melany Rosales DO [address] [place] [address] 01/05/2026 11:00 AM EST Office Visit [facility] [address] [place] [address] Vivian Macias S, OD [address] [place] [address] documented as of this encounter Visit Diagnoses Diagnosis Sensorineural hearing loss (SNHL) of both ears documented in this encounter Additional Health Concerns Infection Onset Date Last Indicated Resolved Time 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
--- OUTSIDE RECORDS SUMMARY | 2025-07-20 13:30 | XMS_ITS | Encounter Summary ---
Author Organization [facility] Address [address] [place] [address] Care Team Providers Care Bone Char Operator Name Role Phone Rocky Almanzar MD Primary Care Provider [phone] Encounter Details Date Type Department Care Team (Late st Contact Info) Description 07/20/2025 1:30 PM EDT Clinical Support [facility] [address] [place] [address] Social History Tobacco Use Types [...] Visit [facility] [address] [place] [address] Melany Rosales DO [address] [place] [address] 01/05/2026 11:00 AM EST Office Visit [facility] [place] [address] [place] [address] Vivian Macias S, OD [address] [place] [address] documented as of this encounter [...] documented as of this encounter Care Teams Bone Char Operator Relationship Specialty Start Date End Date Rocky Almanzar MD [address] [place] [address] PCP - General 03/18/21 documented as of this encounter
--- OUTSIDE RECORDS SUMMARY | 2025-07-31 11:04 | XMS_ITS | Clinical Summary ---
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 01/09 Echo Mccurdy 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/09 Active 01/09 Echo Mccurdy Acute pulmonary histoplasmosis capsulati Medications Medication Instructions Start Date Stop Date Generic Name [facility] [place]NOTE 2] Provider VORICONAZOLE 200 MG TABS Take 1 tablet by mouth once a day voriconazole 41340177999 Rocky Patino MD MINOCYCLINE HCL 100 MG CAPS 1 capsule by mouth twice a day Take one twice a day for three days then only take 1 once a day minocycline 66736442073 Rocky Patino MD budesonide 3 mg by mouth as needed as directed budesonide Flavio Mack budesonide 3 mg by mouth as needed as directed budesonide Hugh Angel EZETIMIBE 10 MG TABS 1 tablet by mouth once a day ezetimibe 77049595253 Hugh Angel XARELTO 20 MG TABS rivaroxaban 13611720634 [facility] PRAVASTATIN SODIUM 20 MG TABS 1 tablet by mouth once a day pravastatin 20772997402 [facility] aspirin 81 mg capsule 1 capsule by mouth once a day aspirin [facility] ITRACONAZOLE 100 MG CAPS Take 2 capsule by mouth twice a day itraconazole 56456803310 Anne Merlos ITRACONAZOLE 100 MG CAPS TAKE TWO CAPSULES BY MOUTH TWICE DAILY itraconazole 00582497900 Rocky Patino MD IPRATROPIUM-ALBU TEROL 0.5-2.5 (3) MG/3ML SOLN ipratropium-albut [place] 49305123670 Amrita Herminia JARDIANCE 10 MG TABS 1 tablet by mouth once a day empagliflozin 95034360876 Amrita Hope ITRACONAZOLE 100 MG CAPS Take 2 capsule by mouth twice a day itraconazole 15082836452 Rocky Patino MD XARELTO 20 MG TABS rivaroxaban 03087628498 [facility] aspirin 81 mg capsule 1 capsule by mouth once a day aspirin Laiba Sonu budesonide 9 mg by mouth as needed as directed budesonide Laiba Sonu VITAMIN D 25 MCG (1000 UT) TABS 1 tablet by mouth once a day cholecalciferol (vitamin d3) 50838287753 Laiba Sonu JARDIANCE 10 MG TABS 1 tablet by mouth once a day empagliflozin 32112337229 Laiba Sonu EZETIMIBE 10 MG TABS 1 tablet by mouth once a day ezetimibe 00171493919 Laiba Sonu insulin lispro protamine-lispro 100 unit/mL (75-25) subcutaneous susp insulin lispro protamin-lispro Laiba Sonu IPRATROPIUM-ALBU TEROL 0.5-2.5 (3) MG/3ML SOLN ipratropium-albut phoenix 76179580402 Laiba Sonu LEVOTHYROXINE SODIUM 50 MCG TABS 1 tablet by mouth once a day levothyroxine 60484625178 Laiba Sonu METFORMIN HCL 500 MG TABS 1 tablet by mouth once a day metformin 40900017696 Laiba Sonu MIRTAZAPINE 15 MG TABS 1 tablet by mouth once a day mirtazapine 81032104761 Laiba Sonu MYCOPHENOLATE MOFETIL 500 MG TABS 1 tablet by mouth twice a day mycophenolate mofetil 11236114504 Laiba Sonu PRAVASTATIN SODIUM 20 MG TABS 1 tablet by mouth once a day pravastatin 14721960997 Laiba Sonu URSODIOL 500 MG TABS 1 tablet by mouth twice a day ursodiol 33363019306 Laiba Sonu Medications Administered No information available. 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, [employer]OCIATE FALLRSKASSES yes Fall ris k assessment Lab [...] Detail Appointment 11:00 AM Rocky Patino MD, [facility], [address], [place], [address], Pending order New Oral Antibio tic Pending [...] (G2211) G2211 Complex E&M visit add-on (G2211) CPT-25899 CMP [id number] CBC with Differential 2024 CPT-96771 BNP CPT-22938 Itraconazole Level 3 CPT-Cooral Continue oral antibiotics 29/04/13 G2211 Complex E&M visit add-on (G2211) CPT-Cooral Continue oral antibiotics 27/02/11 CPT-02694 CMP [id number] CBC with Differential 2024 CPT-42132 Itraconazole Level 1 CPT-86037 BNP CPT-elizabeth New Oral Antibiotic CPT-77099 CMP [id number] CBC with Differential 2024 CPT-31889 CD4 57982 Fungitell, serum (1-3) D-Glucan Assay 03/07/12 CPT-73677 Urine Culture & Sensitivity [id number], [id number] Urinalysis CPT-cf Fungal Culture & Sensitivity CPT-86685 BNP Vital Signs Date Name Value Unit [...]
--- OUTSIDE RECORDS SUMMARY | 2025-07-31 11:05 | XMS_ITS | Encounter Summary ---
Author Organization [facility] Address [address] [place] [address] Care Team Providers Care Trust Operations Assistant Name Role Phone Rocky Almanzar MD Primary Care Provider [phone] Encounter Details Date Type Department Care Team (Late st Contact Info) Description 07/20/2025 Orders Only [facility] [address] [place] [address] Melany Rosales DO [address] [place] [address] Type 2 diabetes mellitus with hyperglycemia, with long-term current use of insulin ([facility]) (Primary Dx) [...] Description 01/05/2026 9:40 AM EST Office Visit [facility] End[facility] [address] [place] [address] Melany Rosales DO [address] [facility] [address] [place] [address] 01/05/2026 11:00 AM EST Office Visit [facility] [place] [address], [address] [place] [address] Vivian Macias S, OD [address] [place] [address] documented as of this encounter Visit Diagnoses Diagnosis Type 2 diabetes mellitus with hyperglycemia, with long-term current use of insulin- Primary documented in this encounter Additional Health Concerns Infection Onset Date Last Indicated Resolved Time 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
--- OUTSIDE RECORDS SUMMARY | 2025-07-31 11:05 | XMS_ITS | Encounter Summary ---
Author Organization [facility] Address [address] [place] [address] Care Team Providers Care Site Worker Name Role Phone Rocky Almanzar MD Primary Care Provider [phone] Encounter Details Date Type Department Care Team (Late st Contact Info) Description 07/09/2025 Results Follow-Up [facility] Endocr[facility]ology [address] [place] [address] Melany Rosales, [address] [facility] [address] [place] [address] Social History Tobacco Use Types [...] 9:40 AM EST Office Visit [facility] Endocrinology [address] [place] [address] Melany Rosales DO [address] [facility] [address] [place] [address] 01/05/2026 11:00 AM EST Office Visit [facility] Eye [place] [address], [address] [place] [address] Vivian Macias S, OD [address] [place] [address] documented as of this encounter [...] documented as of this encounter Care Teams Site Worker Relationship Specialty Start Date End Date Rocky Almanzar MD [address] [place] [address] PCP - General 03/18/21 documented as of this encounter
--- OUTSIDE RECORDS SUMMARY | 2025-07-31 11:05 | XMS_ITS | Encounter Summary ---
Author Organization [facility] Address [address] [facility] [place] [address] Care Team Providers Care Cook House Laborer Name Role Phone Rocky Almanzar MD Primary Care Provider [phone] Encounter Details Date Type Department Care Team (Late st Contact Info) Description 07/09/2025 [facility] [address] [place] [address] Melany Rosales DO [address] [address] Social History Tobacco Use [...] Description 01/05/2026 9:40 AM EST [facility]ology [address] [place] [address] Melany Rosales DO [address] [address] 01/05/2026 11:00 AM EST Office Visit [facility] [place] [address], [address] [place] [address] Vivian Macias S, OD [address] [place] [address] documented as of this encounter [...] documented as of this encounter Care Teams Cook House Laborer Relationship Specialty Start Date End Date Rocky Almanzar MD [address] [place] [address] PCP - General 03/18/21 documented as of this encounter
--- OUTSIDE RECORDS SUMMARY | 2025-07-31 11:05 | XMS_ITS | Encounter Summary ---
Author Organization [facility] Address [address] [place] [address] Care Team Providers Care Auxiliary Plant Operator Name Role Phone Rocky Almanzar MD Primary Care Provider [phone] Reason for Visit * Reason Comments Med Refill Encounter Details Date Type Department Care Team (Late Contact Info) Description 05/20/[address] [facility] Endocrinology [address] [place] [address] Jason Romero MD [address] [address] Social History Tobacco Use Types [...] 9:40 AM EST Office 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
--- OUTSIDE RECORDS SUMMARY | 2025-07-31 11:05 | XMS_ITS | Encounter Summary ---
Author Organization [facility] Address [address] [place] [address] Care Team Providers Care Principal Web Developer Name Role Phone Rocky Almanzar MD Primary Care Provider [phone] Encounter Details Date Type Department Care Team (Late st Contact Info) Description 07/10/[address] [facility] [address] [place] [address] Melany Rosales DO [address] [address] Social History Tobacco Use Types [...] Description 01/05/2026 9:40 AM EST Office [facility] Endocrinology [address] [place] [address] Melany Rosales DO [address] [address] 01/05/2026 11:00 AM EST Office Visit [facility] [place] [address] [place] [address] Vivian Macias S, OD [address] [place] [address] documented as of this encounter [...] documented as of this encounter Care Teams Principal Web Developer Relationship Specialty Start Date End Date Rocky Almanzar MD [address] [place] [address] PCP - General 03/18/21 documented as of this encounter
--- OUTSIDE RECORDS SUMMARY | 2025-07-31 11:05 | XMS_ITS | Encounter Summary ---
Author Organization [facility] Address [address] [place] [address] Care Team Providers Care Transportation Engineer Name Role Phone Rocky Almanzar MD Primary Care Provider [phone] Reason for Visit * Reason Comments Med Refill Encounter Details Date Type Department Care Team (Late Contact Info) Description 11/10/2021 Refill [facility] [address] [place] [address] Jason Romero MD [address] [address] Type 2 diabetes mellitus with other specified complication, with long-term current use of insulin ([facility]) Social [...] Department Care Team (Late Contact Info) Description 01/05/2026 9:40 AM EST Office Visit [facility] [address] [place] [address] Melany Rosales DO [address] [place] [address] 01/05/2026 11:00 AM EST Office Visit [facility] Eye [place] [address] [place] [address] Vivian Macias S, OD [address] [facility] [address] [place] [address] documented as of this encounter Visit Diagnoses Diagnosis Type 2 diabetes mellitus with other specified complication, with long-term current use of insulin documented in this encounter Additional Health Concerns Infection Onset Date Last Indicated Resolved Time 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
--- OUTSIDE RECORDS SUMMARY | 2025-07-31 11:05 | XMS_ITS | Encounter Summary ---
Author Organization [facility] Address [address] [place] [address] Care Team Providers Care Shoulder Pad Molder Name Role Phone Rocky Almanzar MD Primary Care Provider [phone] Reason for Visit * Reason Comments Med Refill Encounter Details Date Type Department Care Team (Late st Contact Info) Description 06/30/2025 Refill [facility] Endocrinology [address] [place] [address] Jason Romero MD [address] [address] Social History Tobacco Use Types [...] next week. Thanks! * Telephone Encounter - KrasDestini solano - 06/30/2025 11:52 AM EDT Refill request does not meet protocol. Sending to clinic for review. Additional info: Clarification required: last clinic note shows 28 units. documented in this encounter Plan of Treatment Upcoming Encounters Date Type Department Care Team (Late st Contact Info) Description 01/05/2026 9:40 AM EST Office Visit [facility] Endocrinology [address] [place] [address] Melany Rosales, DO [address] [place] [address] 01/05/2026 11:00 AM EST Office Visit [facility] [address] [place] [address] Vivian Macias S, OD [address] [place] [address] documented as of this encounter [...] documented as of this encounter Care Teams Shoulder Pad Molder Relationship Specialty Start Date End Date Rocky Almanzar MD [address] [place] [address] PCP - General 03/18/21 documented as of this encounter
--- OUTSIDE RECORDS SUMMARY | 2025-07-31 11:05 | XMS_ITS | Clinical Summary ---
Author Organization [facility] Address [address] [place] [address] Care Team Providers Care Vision Specialist Name Role Phone Provider, No Known Primary [...] (2 of 2 - PCV) 08/13/2019 08/13/2018 INFLUENZA VACCINE 06/05/2025 10/16/2023, , 08/16/2020 COVID-19 Vaccine (6 - Modern a risk season) 2025 10/13/2024, 10/01/2023, 09/20/2022, Additional history exists COLONOSCOPY 08/03/2027 08/03/2017, 08/03/2017 COLORECTAL CANCER SCREENING 08/03/2027 HEPATITIS C SCREENING Completed 08/15/2016 AAA SCREEN ONCE Completed 12/07/2016 Insurance [facility] Medicare [employer] PPO Care Teams Vision Specialist Relationship Specialty Start Date End Date Provider, No Known [facility] [address] PCP - General 01/14/25
--- OUTSIDE RECORDS SUMMARY | 2025-07-31 11:05 | XMS_ITS | Encounter Summary ---
Author Organization [facility] Address [address] [place] [address] Care Team Providers Care Account Relationship Manager Name Role Phone Rocky Almanzar MD Primary Care Provider [phone] Encounter Details Date Type Department Care Team (Late st Contact Info) Description 07/08/2025 [facility] [address] [place] [address] Melany Rosales DO [address] [address] Social History Tobacco Use Types [...] Description 01/05/2026 9:40 AM EST Office [facility] Endocr[facility]ology [address] [place] [address] eMlany Rosales DO [address] [address] 01/05/2026 11:00 AM EST Office Visit [facility] [place] [address] [place] [address] Vivian aMcias S, OD [address] [place] [address] documented as of this encounter [...] documented as of this encounter Care Teams Account Relationship Manager Relationship Specialty Start Date End Date Rocky Almanzar MD [address] [place] [address] PCP - General 03/18/21 documented as of this encounter
--- OUTSIDE RECORDS SUMMARY | 2025-07-31 11:05 | XMS_ITS | Encounter Summary ---
Author Organization [facility] Address [address] [place] [address] Care Team Providers Care Business Information Analyst Name Role Phone Rocky Almanzar MD Primary Care Provider [phone] Encounter Details Date Type Department Care Team [...] Description 01/05/2026 9:40 AM EST [facility] Endocr[facility]ology [address] [place] [address] Melany oRsales, DO [address] [place] [address] 01/05/2026 11:00 AM EST Office Visit [facility] [place] [address] [place] [address] Vivian Macias S, OD [address] [place] [address] documented as of this encounter Visit Diagnoses [...] as of this encounter Care Teams Business Information Analyst Relationship Specialty Start Date End Date Rocky Almanzar MD [address] [place] [address] PCP - General 03/18/21 documented as of this encounter
--- OUTSIDE RECORDS SUMMARY | 2025-07-31 11:06 | XMS_ITS | Patient Health Record ---
Author Organization [facility] Address [address] [facility] [address] [id number] Care Team Providers Care Upfitter Name Role Phone Shauna Almanzar Primary Care Provider Emir Berger Unavailable [phone] Trinity Medeiros Unavailable [phone] Doretha Burns Unavailable [phone] Allergies Allergen (clinical drug ingredient) Drug/Non Drug [...] 5.5 Performing Lab: Notes/Report: Test performed by [facility] , [address], [place] [address] Kristian Trevino MD, Saw Setter CLIA: [id number] Sodium 139 135-145 mmol/L Potassium 3.7 3.5-5.3 [...] 695 Performing Lab: Notes/Report: Test performed by [facility] [address] [place] [address] , [address], [place] [address] Kristian Trevino MD, Saw Setter CLIA: [id number] Albumin/Creatinine Ratio, Urine 695 0-30 ug/mg Microalbumin, [...] 175 Performing Lab: Notes/Report: Test performed by [facility] [address] [place] [address] , [address], [place] [address] Kristian Trevino MD, Saw Setter CLIA: [id number] Sodium 140 135-145 mmol/L Potassium 4.1 3.5-5.3 mmol/L Chloride 105 97-108 mmol/L CO2 22 20-32 mmol/L Glucose 175 65-99 mg/dL BUN 12 8-23 mg/dL Creatinine 1.26 0.70-1.30 mg/dL Calcium 9.4 8.6-10.4 mg/dL eGFR by Creatinine 60 >59 mL/min/1.73m2 P-Cortisol, Random Reviewed date:07/07/2025 10:18:42 AM Interpretation: Normal Performing Lab: Notes/Report: Test performed by [facility] [address] , [address], [place] [address] Kristian Trevino MD, Saw Setter CLIA: [id number] Cortisol, Random 7.7 CORTISOL REFERENCE RANGE AM Serum: 6.0-18.4 ug/dL PM Serum: 2.7-10.5 ug/dL P-Iron Reviewed date:07/07/2025 10:18:42 AM Interpretation:28 Performing Lab: Notes/Report: Test performed by [facility] [address] [place] [address] , [place] [address] Kristian Trevino MD, Saw Setter CLIA: [id number] Iron 28 59-158 ug/dL P-TSH Reviewed date:07/07/2025 10:18:42 AM Interpretation:6.42 Performing Lab: Notes/Report: Test performed by [facility] [address] [place] [address] , [address], [place] [address] Kristian Trevino MD, Saw Setter CLIA: [id number] TSH 6.42 0.43-5.25 mU/L Urinalysis - Inhouse Reviewed date:01/18/2025 02:07:53 PM Interpretation: Performing Lab: Notes/Report: Color/Clarity red/cloudy Leuk Neg Nitrite Neg Urobili 3.2 Protein 2+ pH 5.5 Blood 3+ Sp. Gr. 1.015 Ketone Neg Bili 1+ Gluc 2+ Urinalysis - Inhouse Reviewed date:01/09/2025 01:37:28 PM [...] 229 Performing Lab: Notes/Report: Test performed by [facility] [address] [place] [address] , [address], [place] [address] Kristian Trevino MD, Saw Setter CLIA: [id number] Sodium 138 135-145 mmol/L Potassium 4.3 3.5-5.3 [...] Lab: Notes/Report: does not want H-BMP Reviewed date:09/15/2024 10:12:19 AM Interpretation:bun 25, [...] 232 Performing Lab: Notes/Report: Test performed by [facility] [address] [place] [address] , [address], [place] [address] Kristian Trevino MD, Saw Setter CLIA: [id number] Sodium 141 135-145 mmol/L Potassium 3.0 3.5-5.3 [...] Interpretation:23 Performing Lab: Notes/Report: Test performed by [facility] , [place] [address] Kristian Trevino MD, Saw Setter CLIA: [id number] Creatine Kinase 23 20-200 U/L J-Y-Mbjlpabv Protein (CRP) Reviewed date:06/10/2025 08:30:05 AM Interpretation:4.00 Performing Lab: Notes/Report: Test performed by [facility] [address] , [place] [address] Kristian Trevino MD, Saw Setter CLIA: [id number] C-Reactive Protein (CRP) 4.00 <0.50 mg/dL P-Sed Rate (ESR) Reviewed date:06/10/2025 08:30:05 AM Interpretation:31 Performing Lab: Notes/Report: Test performed by [facility] , [place] [address] Kristian Trevino MD, Saw Setter CLIA: [id number] Erythrocyte Sedimentation Rate (ESR), Automated 31 <21 mm/hr P-TSH reflex to FT4 Reviewed date:06/10/2025 08:30:05 AM Interpretation:Normal Performing Lab: Notes/Report: Test performed by [facility] [address] [place] [address] Kristian Trevino MD, Saw Setter CLIA: [id number] TSH reflex to FT4 3.44 0.43-5.25 mU/L P-Vitamin D 25-Hydroxy Reviewed date:06/10/2025 08:30:05 AM Interpretation:Normal Performing Lab: Notes/Report: Test performed by [facility] [address] [place] [address] Kristian Trevino MD, Saw Setter CLIA: [id number] Vitamin D 25-Hydroxy 57.8 30.0-100.0 ng/mL Interpretation [...] AM Interpretation:cl 109, co2 21, bun 25, [id number] Performing Lab: Notes/Report: NA 137 136-145 mmol/L [...] every 6 hrs Active FreeStyle Leroy 3 [place] - as directed 05/12/2025 Not-Taking Mirtazapine 15 [...] W/U Status Risk Notes Problem Essential hypertension (51692714) Essential (primary) hypertension (I10) Active confirmed Problem Vitamin D deficiency (10244342) Vitamin D deficiency (E55.9) Active confirmed Problem Essential hypertension (91061775) Essential hypertension (I10) Active confirmed Problem Screening for malignant neoplasm of prostate (101104370) Prostate cancer screening (Z12.5) Active confirmed Problem Anorexia (31370311) Anorexia (R63.0) Active con firmed Problem Paroxysmal atrial fibrillation (546122990) Paroxysmal atrial fibrillation (I48.0) Active confirmed Problem Hyperglycemia due to type 2 diabetes mellitus (706993662852791) Type 2 diabetes mellitus with hyperglycemia (E11.65) Active confirmed Problem Mixed hyperlipidemia (546498492) Mixed hyperlipidemia (E78.2) Active confirmed Problem Hyperlipidemia (41130512) Hyperlipidemia, unspecified (E78.5) Active confirmed Problem Hereditary hemochromatosis (10396615) 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) Active confirmed Problem Chronic respiratory failure (77365922) Chronic respiratory failure with hypoxia (J96.11) Active confirmed Problem Autoimmune hepatitis (924465657) Autoimmune hepatitis (K75.4) Active confirmed Problem Cholelithiasis without obstruction (43460549) Calculus of gallbladder without cholecystitis without obstruction (K80.20) Active confirmed Problem Cochlear implant status (Z96.21) Active confirmed Problem Male erectile disorder (765897795) Male erectile disorder (N52.9) Active confirmed Problem Long-term current use of insulin (773324717) intermediate project manager (current) use of insulin (Z79.4) Active confirmed Problem Type II diabetes mellitus without complication (181209394) Type 2 diabetes mellitus without complication (E11.9) Active confirmed Problem Acquired hypothyroidism (650427158) Acquired hypothyroidism (E03.9) Active confirmed Problem Pulmonary fibrosis (39956599) Pulmonary fibrosis (J84.10) Active confirmed Problem Chronic fatigue syndrome (07999039) Chronic fatigue (R53.82) Active confirmed Problem COPD - Chronic obstructive pulmonary disease (09492643) Chronic obstructive pulmonary disease, unspecified COPD type (J44.9) Active confirmed Problem Pneumonia (509096403) Pneumonia of right lower lobe due to infectious organism (J18.9) Active confirmed Problem Hearing loss (63453474) Hearing loss, bilateral (H91.93) Active confirmed Problem Disorder of adrenal gland (96462808) 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) Active confirmed Problem Neutropenia (880672273) Neutropenia, unspecified type (D70.9) Active confirmed Problem Interstitial lung disease (432878158) Interstitial lung disease (J84.9) Active confirmed Problem Seasonal allergic rhinitis (085367907) Seasonal allergic rhinitis, unspecified allergic rhinitis trigger (J30.2) Active confirmed Problem Granulocytopenia (803494339) 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 confirmed Problem Systemic lupus erythematosus (91798051) Lupus (systemic lupus erythematosus) (M32.9) Active confirmed Problem Cardiac arrhythmia (074913653) Cardiac arrhythmia, unspecified cardiac arrhythmia type (I49.9) Active confirmed Problem Malnutrition, calorie (003149331) Caloric malnutrition (E46) Active confirmed Problem Benign prostatic hypertrophy without outflow obstruction (748131069) BPH without urinary obstruction (N40.0) Active confirmed Problem Allergic rhinitis caused by pollen (83928218) Acute seasonal allergic rhinitis due to pollen (J30.1) Active confirmed Problem Sensorineural hearing loss, bilateral (909107726) Sensorineural hearing loss (SNHL) of both ears (H90.3) Active confirmed Problem Cholestatic hepatitis (23095654) Cholestatic hepatitis (K75.89) Active confirmed Problem Skin sensation disturbance (50408366) Sensitive skin (R20.3) Active confirmed Problem Dilatation of aorta (92306265) Dilatation of aorta (I77.819) Active confirmed Problem Tomography - chest abnormal (841034178) Abnormal CT scan, chest (R93.89) Active confirmed Problem Left atrial dilatation (325393807) Left atrial dilatation (I51.7) Active confirmed Problem Chronic vascular insufficiency of intestine (670525209) 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 Problem Protein malnutrition (88795426) Protein malnutrition (E46) Active confirmed Vital Signs Heart Rate 101 /min 07/03/2025 Blood pressure diastolic 70 mm Hg 07/03/2025 Height 65 in 07/03/2025 Blood pressure systolic 124 mm Hg 07/03/2025 Weight 128.0 lbs 07/03/2025 BMI 21.3 kg/m2 07/03/2025 Encounters Encounter Location Date Provider Diagnosis [facility] [id number] 09/05/2024 Shauna Almanzar Pneumonia of left lo wer lobe due to infectious organism J18.9 ; Interstitial lung disease J84.9 ; Chronic respiratory failure with hypoxia J96.11 ; 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 ; Autoimmune hepatitis K75.4 ; Protein malnutrition E46 and Caloric malnutrition E46 [facility] [address] [facility] [address] [place], [place] [id number] 09/16/2024 Trinity Medeiros Strep pharyngitis J0 2.0 and Oral candidiasis B37.0 [facility] [address] [place] [id number] 10/09/2024 Shauna Almanzar Lesion of adrenal gl and E27.9 ; Essential hypertension I10 ; Type 2 diabetes mellitus without complication E11.9 ; Acquired hypothyroidism E03.9 ; Hearing loss, bilateral H91.93 ; Cochlear implant status Z96.21 ; Protein malnutrition E46 ; Chronic obstructive pulmonary disease, unspecified COPD type J44.9 and Encounter for immunization Z23 [facility] [facility] [facility] [address] [place], [place] [id number] 11/03/2024 Emir Sycamore Acute cough R05.1 [facility] 1210 [facility] [address] [place], [place] [id number] 11/07/2024 Shauna Almanzar Type 2 diabetes aquilino itus without complication E11.9 ; Acquired hypothyroidism E03.9 and Hereditary hemochromatosis E83.110 [facility] 12[address] [facility] [address] [place], [place] [id number] 01/09/2025 Shauna Almanzar Type 2 diabetes aquilino itus without complication E11.9 ; Hereditary hemochromatosis E83.110 ; Cochlear implant status Z96.21 ; Chronic obstructive pulmonary disease, unspecified COPD type J44.9 ; Essential (primary) hypertension I10 ; Protein malnutrition E46 and Gross hematuria R31.0 [facility] 12[address] [facility] [address] [place], [place] [id number] 01/15/2025 Shauna Almanzar Interstitial lung disease J84.9 ; 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 ; Autoimmune hepatitis K75.4 ; Protein malnutrition E46 ; Cochlear implant status Z96.21 ; Type 2 diabetes mellitus without complication E11.9 and Hematuria R31.9 [facility] [address] [place] [address] [place], [place] [id number] 02/11/2025 Emir Sycamore Type 2 diabetes aquilino itus with hyperglycemia E11.65 ; alf (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.4 ; Gross hematuria R31.0 and Body mass index (BMI) of 19.0 to 19.9 in adult Z68.1 [facility] [address] [facility] [address] [place], [place] [id number] 03/13/2025 Doretha Burns Drug interaction Z78 .9 [facility] [address] [facility] [address] [place] [id number] 04/02/2025 Shauna Almanzar Type 2 diabetes aquilino itus without complication E11.9 ; 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 ; Cholestatic hepatitis K75.89 ; intermediate project manager (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.4 ; 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 ; Generalized weakness R53.1 and BMI 20.0-20.9, adult Z68.20 [facility] [address] [facility] [address] [id number] 04/30/2025 Shauna Almanzar Type 2 diabetes aquilino itus with hyperglycemia E11.65 ; intermediate project manager (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.4 ; Adrenal [...] adult Z68.22 and Cochlear implant status Z96.21 [facility] [address] [facility] [address] [id number] 06/09/2025 Emir Berger Generalized weakness R53.1 ; Anorexia R63.0 and Vitamin D deficiency E55.9 [facility] [address] [facility] [address] [id number] 07/03/2025 Shauna Almanzar Hypokalemia E87.6 ; Essential hypertension I10 ; Chronic fatigue R53.82 ; Protein malnutrition E46 ; Type 2 diabetes mellitus with hyperglycemia E11.65 ; alf (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.4 ; 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 ; 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 and BMI 21.0-21.9, adult Z68.21 [facility] [address] [facility] [address] [id number] 09/01/2024 Sha[facility] Almanzar [facility] [address] [id number] 09/04/2024 Shauna Almanzar [facility] [address] [facility] [address] [place], [place] [id number] 09/08/2024 J Rogerio Yohan [facility] [address] [place], [place] [id number] 09/10/2024 J Rogerio Yohan [facility] [address] [place], [place] [id number] 09/15/2024 J Rogerio Yohan [facility] [address] [place], [place] [id number] 09/16/2024 J Rogerio Yohan [facility] [address] [place] [id number] 09/25/2024 J Rogerio Yohan [facility] [address] [place], [place] [id number] 11/03/2024 Emir Sycamore [facility] [address] [place], [place] [id number] 01/12/2025 J Rogerio Yohan [facility] [address] [place], [place] [id number] 05/12/2025 J Rogerio Yohan [facility] [address] [place], [place] [id number] 05/12/2025 J Rogerio Yohan [facility] [address] [place] [id number] 06/04/2025 J Rogerio Yohan [facility] [address] [place], [place] [id number] 06/10/2025 Emir Sycamore [facility] [address] [place], [place] [id number] 06/10/2025 J Rogerio Yohan [facility] [address] [place] [id number] 06/23/2025 J Rogerio Almanzar Colon cancer screeni ng Z12.11 [facility] [address] [place], [place] [id number] 07/06/2025 J Rogerio Yohan [facility] [address] [place] [id number] 07/07/2025 J Rogerio Yohan [facility] [address] [facility] [address] [place] [address], [place] [id number] 07/16/2025 Shauna Almanzar Assessments Encounter Date Diagnosis (ICD [...] to resume use of his CGM 02/11/2025 intermediate project manager (current) use of insulin (ICD-10 - [...] mellitus with hyperglycemia (ICD-10 - E11.65) 04/30/2025 alf (current) use of insulin (ICD-10 - Z79.4) 06/23/2025 Colon cancer screening (ICD-10 - Z12.11) 07/03/2025 Hypokalemia (ICD-10 - E87.6) 07/03/2025 Essential hypertension (ICD-10 - I10) 06/09/2025 Anorexia (ICD-10 - R63.0) Boost or Ensure 1 can bid 06/09/2025 Generalized weakness (ICD-10 - R53.1) 06/09/2025 Vitamin D deficiency (ICD-10 - E55.9) 07/03/2025 Chronic fatigue (ICD-10 - R53.82) 04/30/2025 Adrenal abnormality (ICD-10 - E27.9) 04/02/2025 [...] 04/30/2025 Interstitial lung disease (ICD-10 - J84.9) 07/03/2025 Protein malnutrition (ICD-10 - E46) 04/30/2025 Essential (primary) hypertension (ICD-10 - I10) 07/03/2025 Type 2 diabetes mellitus with hyperglycemia (ICD-10 - E11.65) 04/02/2025 intermediate project manager (current) use of insulin (ICD-10 - [...] - E11.9) 04/02/2025 Histoplasmosis (ICD-10 - B39.9) 07/03/2025 intermediate project manager (current) use of insulin (ICD-10 - Z79.4) 04/30/[address] scan, chest (ICD-10 - [...] E83.110) 07/03/2025 Adrenal abnormality (ICD-10 - E27.9) 07/03/2025 BMI 21.0-21.9, adult (ICD-10 - Z68.21) 04/30/2025 Paroxysmal atrial fibrillation (ICD-10 - I48.0) [...] Next Appt Details Provider Name:Shauna Merida , 08/07/2025 11:00:00 AM, [address], [place], [place], [id number], Insurance Providers Payer Name Payer Address Payer Phone Subscriber Number Group Number Insured Name Patient Relationship to Insured Coverage Start Date Coverage End Date [facility] [address] [address] [place] [address] [phone] [id number] HERMILA GOLDEN Self - patient is the insured Medical (General) History Medical History History ICD Code Seasonal Allergies Kidney Stones Steatohepatitis hemachromatosis,(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 Smalls and Dr. Thakur Atrial dysrrhythmia, see notes 2012 hearing loss 2013, hearing aids Impaired fasting glucose Gets yearly eye exams, [facility] Questionable Dx Lupus erythematosus 2016 Granuloma annulare [...]
--- OUTSIDE RECORDS SUMMARY | 2025-07-31 11:06 | XMS_ITS | Clinical Summary ---
Author Organization [facility] Address [address] [place] [address] Care Team Providers Care Flaking Roll Operator Name Role Phone Rocky Almanzar MD Primary Care Provider [phone] Allergies Active Allergy Reactions Criticality Noted Date [...] , with long-term current use of insulin TAKE 1 TABLET DAILY 90 tablet 3 [...] , with long-term current use of insulin TAKE ONE TABLET BY MOUTH TWICE DAILY --TAKE WITH FOOD-- 180 tablet 3 07/07/20 25 Active Continuous Glucose Sensor (FreeStyle Leroy 3 Plus Sensor) miscIndicatio ns:Type 2 diabetes mellitus with hyperglycemia , with long-term current use of insulin 1 Device every 14 days. 2 each 5 07/20/20 25 026 Active metFORMIN (Glucophage) 500 MG tabletIndicat ions:Type 2 diabetes mellitus with other specified complication, with long-term current use of insulin TAKE ONE TABLET BY MOUTH TWICE DAILY [...] hormone (ACTH) 250 mcg IM Once 07/11/2025 07/20/2025 Ended Active Problems Problem Noted Date Diagnosed Date Atrial flutter 07/01/[address] 07/01/2024 Diastolic dysfunction 07/01/2024 Dyspnea on exertion 07/01/2024 Hemochromatosis 07/01/2024 Hypertension 07/01/2024 ILD (interstitial lung disease) 07/01/2024 Hypertriglyceridemia 08/23/2021 Exercise hypoxemia 11/12/2019 Restrictive pattern present on pulmonary functio n testing 11/12/2019 Pleural thickening 08/28/2019 Bacterial pneumonia 06/17/2019 Conjunctivitis, acute 06/02/2019 Astigmatism of both eyes 04/30/2019 Diabetes mellitus type 2 without retinopathy Epiretinal membrane (ERM) of both eyes 9 Afib 03/06/2019 Palpitations 03/06/2019 Liver lesion 12/05/2018 Abnormal US (ultrasound) of abdomen 06/06/2018 Pancreatic lesion 06/05/2018 Adenomatous colon polyp 09/12/2017 Iron deficiency 01/30/2017 Leukopenia 10/17/2016 DEYSI positive 09/12/2016 Chronic fatigue 09/12/2016 Hypothyroidism 09/12/2016 Infection or inflammatory re action due to other internal prosthetic device, implant, or graft 08/15/2016 Wound infection after surgery 02/22/2016 Bilateral sensorineural hearing loss 02/05/2015 Resolved Problems Problem Noted Date Diagnosed Date Resolved Date Bilateral myopia 04/30/2019 07/26/2025 Bilateral presbyopia 04/30/2019 025 Nuclear sclerosis of both eyes 04/30/2019 07/26/2025 Encounters Date Type Department Care Team Description 07/20/2025 1:30 PM EDT Clinical Support [facility] [address] [place] [address] 07/20/2025 Orders Only [facility] [address] [place] [address] Melany Rosales, Type 2 diabetes mellitus with hyperglycemia, with long-term current use of insulin ([facility]/HCC) (Primary Dx) 07/20/2025 Travel 07/17/2025 2:00 PM EDT Office Visit [facility] Audiology [address] [place] [address] Lottie Lund, Julius Sensorineural hearing loss (SNHL) of both ears 07/17/2025 Travel 07/10/2025 Orders Only [facility] [address] [place] [address] Melany Rosales, DO 07/09/2025 Orders Only [facility] [address] [place] [phone] Melany Rosales, DO 07/09/2025 Results Follow-Up [facility] [address] [place] [address] Melany Rosales, DO 07/08/2025 Orders Only [facility] [address] [place] [address] Melany Rosales, 07/07/2025 11:40 AM EDT Office Visit [facility] [address] [place] [address] Melany Rosales, DO Type 2 diabetes mellitus with hyperglycemia, with long-term current use of insulin (CMS/HCC) (Primary Dx); Hemochromatosis, unspecified hemochromatosis type; Acquired hypothyroidism; Histoplasmosis; Elevation of adrenocorticotropic hormone (ACTH) 07/07/2025 Travel 06/30/2025 Refill [facility] [address] [place] [address] Jason Romero MD 05/04/2025 Refill [facility] [address] [place] [address] Jason Romero MD Type 2 diabetes mellitus with hyperglycemia, with long-term current use of insulin (CMS/HCC) from Last 3 Months Immunizations Immunization Administration [...] Description 01/05/2026 9:40 AM EST Office Visit [facility] Endocrinology [address] [place] [address] Melany Rosales, DO [address] [place] [address] 01/05/2026 11:00 AM EST Office Visit [facility] [address], [address] [place] [address] Colleen Vivian S, OD [address] [place] [address] Health Maintenance Due Date Last Done Comments [facility]-Depression Screening 1950 [facility]-Medicare Annual Wellness (AWV) 1950 [facility]-Infant/Child/Adol SDOH Screenings 1950 Diabetes: Dental Exam 1961 [facility]- SDOH Screenings 1969 [facility]-Adult SDOH Screenings 1969 [facility]-DTaP,Tdap,and Td Vaccines (1 - Tdap) 1970 [facility]-Zoster Vaccines (1 of 2) 1970 CT Colonography 1996 FIT-DNA 1996 FIT 1996 FOBT 1996 Sigmoidoscopy 1996 [facility]-Abdominal Aortic Aneurysm (AAA) Screening 2016 NMS-ALKYU-[id number] Vaccine (7 - Moderna risk 2023- season) [...] this topic Medical Devices Implanted Type Area Supervisor Boarding Device Identifier Shelf Expiration Date Model / Serial / Lot Roseline king Advantage Ci Hifocus 1j Electrode--06/05 Implanted:06/05 by Ky Del Rio MD (Quantity not on file) Cochlear Left: Ear Mapiliary [facility] [id number] / [id number] / Description:Roseline StanleyK Advant age CI HiFocus 1J electrode--cochlear implant by Dr. Del Rio at [facility] on 06/21/2017, operative note in Epic. LEFT EAR. Roseline ULTRA 3D Cochlear implant REF: [id number] Serial number: [id number] Procedures Procedure Name Priority Date/Time Associated Diagnosis Comments CORTISOL, 60 Routine 07/20/2025 2:40 PM EDT Elevation of adrenocorticotropic hormone (ACTH) CORTISOL, 30 Routine 07/20/2025 2:03 PM EDT Elevation of adrenocorticotropic hormone (ACTH) ADRENOCORTICOTROPIC HORMONE (ACTH) Routine 07/20/2025 1:28 PM EDT Elevation of adrenocorticotropic hormone (ACTH) CORTISOL Routine 07/20/2025 1:28 PM EDT Elevation of adrenocorticotropic hormone (ACTH) HP LINK LIPID PANEL Routine 07/08/2025 3:03 PM EDT FREE T4, PLASMA Routine 07/08/2025 [...] Recently Relevant to Health Maintenance Results * CORTISOL, 60 (07/20/2025 2:40 PM EDT) Cortisol Time=60 21.00 Before 10am: 3.7 - 19.4. After 5pm: 2.9 - 17.3 ug/dL 07/20/2025 8:20 PM EDT [facility] Comment: Testing performed on Robert Sociology Adjunct Instructor, standardized against [facility] Reference Standard concentration values assigned by LC-MS/MS [...] PM EDT 07/20/2025 4:08 PM EDT us Melany Rosales DO LAB BLOOD ORDERABLES Final Result [facility] [address] [place] [address] * Cortisol, 30 (07/20/2025 2:03 PM EDT) Cortisol,Time=30 18.30 Before 10am: 3.7 - 19.4. After 5pm: 2.9 - 17.3 ug/dL 07/20/2025 8:19 PM EDT [facility] Comment: Testing performed on Robert Sociology Adjunct Instructor, standardized against [facility] Reference Standard concentration values assigned by LC-MS/MS [...] 2:03 PM EDT 07/20/2025 4:08 PM EDT us Melany Rosales DO LAB BLOOD ORDERABLES Final Result Performing Organization Address [facility] Co de Phone Number [facility] [address] [place] [address] * (ABNORMAL) ACTH (07/20/2025 1:28 PM EDT) Only the most recent of2 resultswithin the time period is included. ACTH 68.2(H) 7.2 - 63 pg/mL 07/20/2025 5:38 PM EDT [facility] Blood Venous blood specimen / Unknown Venipuncture / Unknown 07/20/2025 1:28 PM EDT 07/20/2025 1:42 PM EDT us Melany Rosales DO LAB BLOOD ORDERABLES Final Result Performing Organization Address [facility] Phone Number [facility] [address] [place] [address] * Cortisol, Time=0 (07/20/2025 1:28 PM EDT) Only the most recent of2 resultswithin the time period is included. Cortisol 8.20 Before 10am: 3.7 - 19.4. After 5pm: 2.9 - 17.3 ug/dL 07/20/2025 8:23 PM EDT [facility] Comment:Testing performed on [employer], standardized against [facility] Reference Standard concentration values assigned by LC-MS/MS and verified by BCR 192 and BCR 193 certified reference materials. Blood Venous blood specimen / Unknown Venipuncture / Unknown 07/20/2025 1:28 PM EDT 07/20/2025 4:08 PM EDT us Melany Rosales DO LAB REF LAB BLOOD AND FLUID ORD Final Result Performing Organization Address City/[facility]/ZIP Co de Phone Number [facility] [address] [place] [address] * HM Lipid Panel (07/08/2025 3:03 PM EDT) Melany Rosales DO HEALTH MAINTENANCE Final Re sult * Free T4, Plasma (07/08/2025 3:00 PM EDT) Blood Venous blood specimen / Unknown Melany Rosales DO LAB BLOOD ORDERABLES Final Result * POCT glycosylated hemoglobin (Hb A1C) (07/07/2025 12:03 PM EDT) Pathologist [facility] POCT Hemoglobin A1C 6.7 <5.7% Non-Diabet ic % [employer] [facility] Kit Lot Number [id number] [facility] Kit Expiration Date 04/2027 [employer] [facility] Blood Venous blood specimen / Unknown 07/07/2025 12:03 PM EDT Melany Rosales DO POINT OF CARE TEST ENTER/ED IT ORDERABLES Edited Result - Final Performing Organization Address [facility] de Phone Number [facility] [address] [place] [address] * COLONOSCOPY (08/03/2017) Anatomical Region Laterality Modality Endoscopy Narrative 08/03/2017 Ordered by an unspecified provider. 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
--- OUTSIDE RECORDS SUMMARY | 2025-07-31 11:06 | XMS_ITS | Encounter Summary ---
Author Organization [facility] Address [address] [place] [address] Care Team Providers Care Rodbuster Name Role Phone Rocky Almanzar MD Primary Care Provider [phone] Encounter Details Date Type Department Care Team (Latest Contact Info) Description 07/17/2025 Travel Social History Tobacco Use Types Packs/Day [...] Description 01/05/2026 9:40 AM EST Office Visit [facility] Endocrinology [address] [place] [address] Melany Rosales, DO [address] [place] [address] 01/05/2026 11:00 AM EST Office Visit [facility] [place] [address] [place] [address] Vivian Macias S, OD [address] [place] [address] documented as of this encounter Visit Diagnoses [...] documented as of this encounter Care Teams Rodbuster Relationship Specialty Start Date End Date Rocky Almanzar MD [address] [place] [address] PCP - General 03/18/21 documented as of this encounter
--- OUTSIDE RECORDS SUMMARY | 2025-07-31 11:06 | XMS_ITS | Encounter Summary ---
Author Organization [facility] Address [address] [place] [address] Care Team Providers Care Assistant Men'S Soccer Coach Name Role Phone Rocky Almanzar MD Primary Care Provider [phone] Encounter Details Date Type Department Care Team (Latest Contact Info) Description 07/20/2025 Travel Social History Tobacco Use Types Packs/Day [...] Description 01/05/2026 9:40 AM EST Office Visit [facility] Endocrinology [address] [place] [phone] Melany Rosales, DO [address] [place] [address] 01/05/2026 11:00 AM EST Office Visit [facility] [place] [address] [place] [address] Vivian Macias S, OD [address] [place] [address] documented as of this encounter Visit Diagnoses [...] as of this encounter Care Teams Assistant Men'S Soccer Coach Relationship Specialty Start Date End Date Rocky Almanzar MD [address] [place] [address] PCP - General 03/18/21 documented as of this encounter
[2025-07-31 11:33] LABS: PHA INR Fingerstick 1.8 (0.9-1.1)
== END 2025-07-31 11:52 ==
LOC: ACC 11:02
PROVIDERS: PCP Family Medicine; Visit Provider Nurse Practitioner
DX: I48.0 Paroxysmal atrial fibrillation (principal); Z79.01 Long term (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 of anticoagulants
CPT/HCPCS: 85610; 99211; G0463

== ENCOUNTER 2025-08-21 10:53 | Outpatient (CLI) | payer MEDICARE, SELFPAY ==
--- OUTSIDE RECORDS SUMMARY | 2025-01-09 07:45 | XMS_ITS ---
Author Organization [facility] Address 1210 [facility] [address] [phone] Care Team Providers Care Buttermilk Drier Operator Name Role Phone Shauna Almanzar Primary Care [...] 229 Performing Lab: Notes/Report: Test performed by [employer] [facility]0 [facility] , [address], [place] [address] Kristian Trevino MD, Cattle Care Worker CLIA: [id number] Sodium 138 135-145 mmol/L Potassium 4.3 3.5-5.3 [...] DAY AT BEDTIME; Duration: 30 Active Nystatin 002881 UNIT/ML 5 ml Mouth/Throa t Twice a [...] Encounter Location Date Provider Diagnosis [facility] 1210 [facility] 36 [facility] [address] [place], [place] [id number] 01/09/2025 Shauna Almanzar Type 2 diabetes aquilino [...] Provider Name:Shauna fofana, 11/12/2025 01:30:00 PM, 1210 [facility] 36 [facility], [address], [place], [id number], Progress Notes * HERMILA GOLDEN: [birth year] (75 yo M)Acc No.[id number]:01/09/2025 Progress Notes Patient: HEMRILA BUCIO Provider: Shauna Almanzar M.D. :1950 A ge:74 Y S ex:Male Date:01/09/2025 Address:[address] [place] [address] [address], [facility] Subjective: * Chief Complaints: * 1 . [...] glucose, Gets yearly eye exams, 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, [place] user name and password for portal: [email or web address], type 2 diabetes, followed at [facility], 06/05/2019 CT: healing of R lung infection [...] orally once a day , Taking Nystatin 895427 UNIT/ML Suspension 5 ml Mouth/Throat Twice a [...] :25 PM >no auth required; CPT code 72534; faxed to [facility] Anel Magallanes 04/20/2025 10:24:55 AM EDT >pt denied ultrasound * Procedure Codes: G 2211 Complex e/[place], [address] [place], [address] Urinalysis, no micro, 04509 CBC WITH AUTO DIFF, 46851 VENIPUNCT, ROUTINE*, G8752 MOST RECENT SYSTOLIC BP < 140MM HG, G8754 MOST RECENT DIASTOLIC BP < 90MM HG * Follow Up: 1 Week * Images: Billing Information: * Visit Code: 13045 Office Visit, Est Pt., Level 4. * Procedure Codes: G2211 Complex e/[place]. [address] [place]. [address] Urinalysis, no micro. 23260 CBC WITH AUTO DIFF. 69264 VENIPUNCT, ROUTINE*. G8752 MOST RECENT SYSTOLIC BP < 140MM HG. G8754 MOST RECENT DIASTOLIC BP < 90MM HG. * Electronic signature of Shauna Almanzar MD on 08/21/2025 at 10:57 AM EDT Sign off status: Pending * Provider: Shauna Almanzar M.D. Date: 0 01/09/2025 Generated for Printi ng/Faxing/eTransmitting on: 1 10:57 AM EDT History and Physical Notes * HPI (History [...]
--- OUTSIDE RECORDS SUMMARY | 2025-01-15 11:00 | XMS_ITS ---
Author Organization [facility] Address [address] [id number] Care Team Providers Care Computer Typesetter Name Role Phone Shauna Almanzar Primary Care [...] MOUTH EVERY DAY; Duration: 30 Active Nystatin 205095 UNIT/ML 5 ml Mouth/Throa t Twice a [...] Encounter Location Date Provider Diagnosis [facility] [address] [facility] 36 [facility] [address] [place], [place] [id number] 01/15/2025 Shauna Almanzar Interstitial lung disease J84.9 [...] Name:Shauna fofana, 11/12/2025 01:30:00 PM, [address], [address], [place], [place], [id number], Progress Notes * HERMILA GOLDENOB: [birth year] (75 yo M)Acc No.[id number]:01/15/2025 Progress Notes Patient: HERMILA BUCIO Provider: Shauna Almanzar M.D. :1950 A ge:74 Y S ex:Male Date:01/15/2025 Address:[address] [place] [address] [address], [facility] Subjective: * Chief Complaints: * 1 . 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 * Procedure Codes: G2211 Complex e/[place] [address] [place]. [address] Urinalysis, no micro. G8752 MOST RECENT SYSTOLIC BP < 140MM HG. G8754 MOST RECENT DIASTOLIC BP < 90MM HG. * Electronic signature of Shauna Almanzar MD on 08/21/2025 at 10:58 AM EDT Sign off status: Pending * Provider: Shauna Almanzar M.D. Date: 0 01/15/2025 Generated for Collinsi ng/Fadavidg/eTransmitting on: 1 10:58 AM EDT History and Physical Notes * [...]
--- OUTSIDE RECORDS SUMMARY | 2025-02-11 10:00 | XMS_ITS ---
Author Organization [facility] Address 1210 [facility] [address] [id number] Care Team Providers Care Bookkeeper Assistant Name Role Phone Shauna Almanzar Primary Care Provider Emir Berger Unavailable [phone] Allergies Allergen (clinical drug ingredient) Drug/Non Drug [...] Hyperglycemia due to type 2 diabetes mellitus (175301199239731) Type 2 diabetes mellitus with hyperglycemia (E11.65) Active confirmed Problem Long-term current use of insulin (755230683) custodial (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 (Z79.4) Active confirmed Vital Signs Weight 117.4 lbs 02/11/2025 Blood pressure systolic 110 mm Hg 02/12/20 25 Blood pressure diastolic 62 mm Hg 025 Heart Rate 100 /min 02/11/2025 Height 65 in 02/11/2025 BMI 19.53 kg/m2 02/11/2025 Encounters Encounter Location Date Provider Diagnosis [facility] [address] [facility] [address] [place] [address], [place] [id number] 02/11/2025 Emir Berger Type 2 diabetes aquilino itus with hyperglycemia E11.65 ; custodial (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.4 ; Gross hematuria R31.0 and Body mass index (BMI) of 19.0 to 19.9 in adult Z68.1 Assessments Encounter Date Diagnosis (ICD Code) Assessment Notes Treatment Notes Treatment Clinical Notes Section Notes 02/11/2025 Type 2 diabetes mellitus with hyperglycemia (ICD-10 - E11.65) Patient needs to resume use of his CGM 02/11/2025 custodial (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 (ICD-10 - Z79.4) [...] Name:Shauna Merida er, 11/12/2025 01:30:00 PM, 1210 [facility] [address], [address], [place], [place], [id number], Progress Notes * HERMILA GOLDENOB: [birth year] (75 yo M)Acc No.[id number]:02/11/2025 Progress Notes Patient: HERMILA BUCIO Provider: Jaden Berger M.D. :1950 A ge:74 Y S ex:Male Date:02/11/2025 Address:[address] [place] [address] [address] , [facility] Pcp:Shauna Almanzar Subjective: * Chief Complaints: * [...] Impaired fasting glucose, Gets yearly eye exams, [facility], Questionable Dx Lupus erythematosus 2016, Granuloma [...] Three times a day , Discontinued Nystatin 628111 UNIT/ML Suspension 5 ml Mouth/Throat Twice a [...] * Images: Billing Information: * Visit Code: 28344 Office Visit, Est Pt., Level 4. * Procedure Codes: G2211 Complex e/m visit add on. G8752 MOST RECENT SYSTOLIC BP < 140MM HG. G8754 MOST RECENT DIASTOLIC BP < 90MM HG. * Electronic signature of Elidia Berger MD on 08/21/2025 at 10:58 AM EDT Sign off status: Pending * Provider: Jaden Berger M.D. Date: 0 02/11/2025 Generated for Marissa mendoza/Rei/Johnsmitting on: 1 10:58 AM EDT History and [...]
--- OUTSIDE RECORDS SUMMARY | 2025-03-13 10:15 | XMS_ITS ---
Author Organization [facility] Address 1210 [facility] [address] [phone] Care Team Providers Care Workforce Specialist Name Role Phone Shauna Almanzar Primary Care Provider Doretha Burns Unavailable [phone] Allergies Allergen (clinical drug ingredient) Drug/Non Drug Allergy documented on EMR Reaction Allergy Type Onset Date Status cephalexin Cephalexin Unknown Drug Allergy Activ e REASON FOR VISIT face is swollen per Alyssa at [facility], possible interaction with budesonide and itraconazole [...] 03/13/2025 Encounters Encounter Location Date Provider Diagnosis [facility] [facility] [address] [place] [id number] 03/13/2025 Doretha Burns Drug interaction Z78 .9 [...] 11/12/2025 01:30:00 PM, [address] [facility], [address], [place], [id number], Progress Notes * HERMILA GOLDENOB: [birth year] (75 yo M)Acc No.[id number]:03/13/2025 Progress Notes Patient: Daniele SALAS HERMILA WALDROP Provider: LUCIA Davis :1950 A ge:74 Y S ex:Male Date:03/13/2025 Address:[address] [place], [place] [address] [address], [id number] Pcp:Shauna Almanzar Subjective: * Chief Complaints: * 1 . face is swollen per Alyssa at [facility], possible interaction with budesonide and itraconazole. 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 * Procedure Codes: G2211 Complex e/m visit add on. * Electronic signature of LUCIA Dean on 08/21/2025 at 10:57 AM EDT Sign off status: Pending * Provider: LUCIA Davis Date: 0 03/13/2025 Generated for Marissa mendoza/Rei/Khurramitting on: 1 10:57 AM EDT History and [...]
--- OUTSIDE RECORDS SUMMARY | 2025-04-02 10:15 | XMS_ITS ---
Author Organization [facility] Address 1210 [facility] [address] [phone] Care Team Providers Care Construction Carpenter Name Role Phone Shauna Almanzar Primary Care [...] 5.5 Performing Lab: Notes/Report: Test performed by [employer], [address] [facility] [facility]0 [facility] , [address], [place] [address] Kristian Trevino MD, Blender Laborer CLIA: [id number] Sodium 139 135-145 mmol/L Potassium 3.7 3.5-5.3 [...] 695 Performing Lab: Notes/Report: Test performed by [facility] [address] [place] [address] , [address], [place] [address] Kristian Trevino MD, Blender Laborer CLIA: [id number] Albumin/Creatinine Ratio, Urine 695 0-30 ug/m g [...] Grigsby 05/18/2025 02:47:51 PM > faxed to [facility] PT Referral Priority Routine REASON FOR [...] 04/02/2025 Encounters Encounter Location Date Provider 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 36 [facility], [address], [place], [place], [phone], Progress Notes * HERMILA GOLDENOB: [birth year] (75 yo M)Acc No.[id number]:04/02/2025 Progress Notes Patient: HERMILA BUCIO Provider: Shauna Almanzar M.D. :1950 A ge:75 Y S ex:Male Date:04/02/2025 Address:[address] [place] [address] [address] , [facility] Subjective: * Chief Complaints: * 1 . 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 B GA 20.0-20.9, adult - Z68.20? Plan: * Treatment: [...] G 2211 Complex e/[place], [address] GLYCATED HEMOGLOBIN TEST, Modifiers: QW , G8752 [...] * Images: Billing Information: * Visit Code: 73458 Office Visit, Est Pt., Level 4. * Procedure Codes: G2211 Complex e/[place]. [address] GLYCATED HEMOGLOBIN TEST. Modifiers: QW G8752 MOST [...] 04/02/2025 Generated for Marissa mendoza/Rei/eTransmitting on: 1 10:58 AM EDT History and [...]
--- OUTSIDE RECORDS SUMMARY | 2025-04-30 10:00 | XMS_ITS ---
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) Referral [facility] Referring Provider First Name Shauna [...] W/U Status Risk Notes Problem Cardiac arrhythmia (356413131) Cardiac arrhythmia, unspecified cardiac arrhythmia type (I49.9) Active confirmed Problem Chronic vascular insufficiency of intestine (788583668) 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 Vital Signs Weight 133.8 lbs 04/30/2025 Blood pressure systolic 130 mm Hg 04/30/20 25 Blood pressure diastolic 62 mm Hg 025 Heart Rate 85 /min 04/30/2025 Height 65 in 04/30/2025 BMI 22.26 kg/m2 04/30/2025 Encounters Encounter Location Date Provider Diagnosis [facility] [facility] [address] [id number] 04/30/2025 Shauna Almanzar Type 2 diabetes aquilino itus with hyperglycemia E11.65 ; prison (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.4 ; Adrenal [...] mellitus with hyperglycemia (ICD-10 - E11.65) 04/30/2025 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 :1950 A ge:75 Y S ex:Male Date:04/30/2025 Address:[address] [facility] 32 , [id number] Subjective: * Chief Complaints: * 1 . 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 B CA 22.0-22.9, adult - Z68.22 1 3. C [...] * Images: Billing Information: * Visit Code: 15928 Office Visit, Est Pt., Level 4. * [...] M.D. Date: 0 04/30/2025 Generated for Collinsi kelly/Fajacek/eTransmitting on: 1 10:57 AM EDT History and [...]
--- OUTSIDE RECORDS SUMMARY | 2025-06-09 06:00 | XMS_ITS ---
Author Organization [facility] Address 1210 [facility] 36 [facility] [address] [place] [id number] Care Team Providers Care Principal Technologist Name Role Phone Shauna Almanzar Primary Care Provider Emir Berger Unavailable [phone] Allergies Allergen (clinical drug ingredient) Drug/Non Drug [...] 232 Performing Lab: Notes/Report: Test performed by [employer] [address] [place] [address] , [address], [place] [address] Kristian Trevino MD, Reference Data Expert CLIA: [id number] Sodium 141 135-145 mmol/L Potassium 3.0 3.5-5.3 [...] Interpretation:23 Performing Lab: Notes/Report: Test performed by [email or web address] [address] [facility], [place] [address] Kristian Trevino MD, Reference Data Expert CLIA: [id number] Creatine Kinase 23 20-200 U/L M-H-Twqkeqde Protein (CRP) Reviewed date:06/10/2025 08:30:05 AM Interpretation:4.00 Performing Lab: Notes/Report: Test performed by [email or web address] [address] [place] , [place] [address] Kristian Trevino MD, Reference Data Expert CLIA: [id number] C-Reactive Protein (CRP) 4.00 <0.50 mg/dL P-Sed Rate (ESR) Reviewed date:06/10/2025 08:30:05 AM Interpretation:31 Performing Lab: Notes/Report: Test performed by [email or web address] [address] [facility], [place] [id number] Kristian Trevino MD, Reference Data Expert CLIA: [id number] Erythrocyte Sedimentation Ra te (ESR), Automated 31 <21 mm/hr P-TSH reflex to FT4 Reviewed date:06/10/2025 08:30:05 AM Interpretation:Normal Performing Lab: Notes/Report: Test performed by [employer] [address] [place] [address] , [address], [place] [address] Kristian Trevino MD, Reference Data Expert CLIA: [id number] TSH reflex to FT4 3.44 0.43-5.25 mU/L P-Vitamin D 25-Hydroxy Reviewed date:06/10/2025 08:30:05 AM Interpretation:Normal Performing Lab: Notes/Report: Test performed by [employer] [address] [place] [address] , [address], [place] [address] Kristian Trevino MD, Reference Data Expert CLIA: [id number] Vitamin D 25-Hydroxy 57.8 30.0-100.0 ng/mL Interpretation [...] Duration: 90 days Active FreeStyle Leroy 3 [place] - as directed 05/12/2025 Not-Taking Levothyroxine Sodium [...] Status W/U Status Risk Notes Problem Anorexia (81366624) Anorexia (R63.0) Active confirmed Vital Signs Weight 130 lbs 06/09/2025 Blood pressure systolic 112 mm Hg 06/09/20 25 Blood pressure diastolic 68 mm Hg 025 Heart Rate 64 /min 06/09/2025 Height 65 in 06/09/2025 BMI 21.63 kg/m2 06/09/2025 Encounters Encounter Location Date Provider Diagnosis [facility] [address] [place] [address] 36 [facility] [address] [place] [id number] 06/09/2025 Emir Berger Generalized weakness R53.1 ; [...] Name:Shauna Merida er, 11/12/2025 01:30:00 PM, 1210 [facility] 36 [facility], [address], [place], [id number], Progress Notes * HERMILA GOLDENOB: [birth year] (75 yo M)Acc No.[id number]:06/09/2025 Progress Notes Patient: HERMILA BUCION Provider: Jaden Berger M.D. :1950 A ge:75 Y S ex:Male Date:06/09/2025 Address:[address] [place] [address], [facility] Pcp:Shauna Almanzar Subjective: * Chief Complaints: * [...] portal: [email or web address]...#[email or web address], type 2 diabetes, followed at [facility], 06/05/2019 CT: healing of R lung infection [...] mouth daily , Not-Taking FreeStyle Leroy 3 [place] - Device as directed , Not-Taking FreeStyle [...] AM EDT > See phone encounter ?LAB: J-D-Wpjktspx Protein (CRP) (Collection Date & Time - [...] G 2211 Complex e/[place], [address] CBC WITH AUTO DIFF, 1036F TOBACCO NON-USER, G8783 BP SCR PRFRM RCMDD DEFIND SCR INTVL, G8752 MOST RECENT SYSTOLIC BP < 140MM HG, G8754 MOST RECENT DIASTOLIC BP < 90MM HG * Follow Up: v ia phone to report test results * Images: Billing Information: * Visit Code: 04414 Office Visit, Est Pt., Level 4. * Procedure Codes: G2211 Complex e/[place]. [address] CBC WITH AUTO DIFF. 1036F TOBACCO NON-USER. G8783 BP SCR PRFRM RCMDD DEFIND SCR INTVL. G8752 MOST RECENT SYSTOLIC BP < 140MM HG. G8754 MOST RECENT DIASTOLIC BP < 90MM HG. * Electronic signature of Elidia Berger MD on 08/21/2025 at 10:59 AM EDT Sign off status: Pending * Provider: Jaden Berger M.D. Date: 0 06/09/2025 Generated for Marissa mendoza/Rei/Johnsmitting on: 1 10:59 AM EDT History and Physical Notes * [...]
--- OUTSIDE RECORDS SUMMARY | 2025-06-23 07:29 | XMS_ITS ---
Author Organization [facility] Address [address] [place], [place] [phone] Care Team Providers Care Newspaper Library Manager Name Role Phone Shauna Almanzar Primary Care Provider REASON FOR VISIT due col Encounters Encounter Location Date Provider Diagnosis [facility] [facility] [address] [place], [place] [phone] 06/23/2025 Shauna Almanzar Colon cancer screening Z12.11 Assessments Encounter Date Diagnosis (ICD Code) Assessment Notes Treatment Notes Treatment Clinical Notes Section Notes 06/23/2025 Colon cancer screening (ICD-10 - Z12.11) Plan Of Treatment Pending Test Test Name Order Date Cologuard 06/23/2025 Next Appt Details Provider Name:Shauna Merida er, 11/12/2025 01:30:00 PM, [address], [address], [place], [place], [phone], Progress Notes * HERMILA GOLDENOB: [birth year] (75 yo M)Acc No.[id number]:06/23/2025 Patient: Daniele CEDRICKRAJIVHERMILA :1950 A ge:75 Y S ex:Male Address:[address], [place] [address] Subjective: * Chief Complaints: * D ue col * Medical History: * Surgical History: * Hospitalization/Major Diagno stic Procedure: * Medications: Objective: * Vitals: * Physical Examination: Assessment: * Assessment: 1. C olon cancer screening - Z12.11 (Primary) Plan: * Treatment: * Procedure Codes: * true * Date: Generated for Marissa mendoza/Rei/Jeremiah on: 10:58 AM EDT
--- OUTSIDE RECORDS SUMMARY | 2025-07-03 07:45 | XMS_ITS ---
Author Organization [facility] Address 1210 [facility] [address] [phone] Care Team Providers Care Meter Maker Name Role Phone Shauna Almanzar Primary [...] 175 Performing Lab: Notes/Report: Test performed by [facility] , [address], [place] [address] Kristian Trevino MD, Heel Sprayer CLIA: [id number] Sodium 140 135-145 mmol/L Potassium 4.1 3.5-5.3 mmol/L Chloride 105 97-108 mmol/L CO2 22 20-32 mmol/L Glucose 175 65-99 mg/dL BUN 12 8-23 mg/dL Creatinine 1.26 0.70-1.30 mg/dL Calcium 9.4 8.6-10.4 mg/dL eGFR by Creatinine 60 >59 mL/min/1.73m2 P-Cortisol, Random Reviewed date:07/07/2025 10:18:42 AM Interpretation: Normal Performing Lab: Notes/Report: Test performed by [employer] [address] [place] [address] , [address], [place] [address] Kristian Trevino MD, Heel Sprayer CLIA: [id number] Cortisol, Random 7.7 CORTISOL REFERENCE RANGE AM Serum: 6.0-18.4 ug/dL PM Serum: 2.7-10.5 ug/dL P-Iron Reviewed date:07/07/2025 10:18:42 AM Interpretation:28 Performing Lab: Notes/Report: Test performed by [facility] [address] [place] [address] , [address], [place] [address] Kristian Trevino MD, Heel Sprayer CLIA: [id number] Iron 28 59-158 ug/dL P-TSH Reviewed date:07/07/2025 10:18:42 AM Interpretation:6.42 Performing Lab: Notes/Report: Test performed by [facility] [address] [place] [address] , [address], [place] [address] Kristian Trevino MD, Heel Sprayer CLIA: [id number] TSH 6.42 0.43-5.25 mU/L REASON FOR VISIT [...] Duration: 90 days Active FreeStyle Leroy 3 [place] - as directed 05/12/2025 Not-Taking Mirtazapine 15 [...] 07/03/2025 Encounters Encounter Location Date [facility] [address] [id number] 07/03/2025 Shauna Almanzar Hypokalemia E87.6 ; Essential hypertension I10 ; Chronic fatigue R53.82 ; Protein malnutrition E46 ; Type 2 diabetes mellitus with hyperglycemia E11.65 ; care home (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 [...] mellitus with hyperglycemia (ICD-10 - E11.65) 07/03/2025 superintendent marine oil terminal (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 (ICD-10 - [...] Name:Shauna Merida er, 11/12/2025 01:30:00 PM, 1210 [facility] 36 [facility], [address], [place], [place], [id number], Progress Notes * CHICOHERMILA STRONG GINOOB: [birth year] (75 yo M)Acc No.[id number]:07/03/2025 Progress Notes Patient: HERMILA BUCIO Provider: Shauna Almanzar M.D. :1950 A ge:75 Y S ex:Male Date:07/03/2025 Address:[address] [place] [address] [address] , [facility] Subjective: * Chief Complaints: * 1 . [...] yearly eye exams, [facility], Questionable Dx Lupus erythematosus 2015, Granuloma annulare [...] at bedtime , Not-Taking FreeStyle Leroy 3 [place] - Device as directed , Not-Taking FreeStyle [...] drenal abnormality - E27.9 9 . B [place] 21.0-21.9, adult - Z68.21? Plan: * Treatment: [...] G 2211 Complex e/[place], [address] CBC WITH AUTO DIFF, 86166 GLYCATED HEMOGLOBIN TEST, Modifiers: QW , 78292 CAPILLARY BLOOD DRAW, 1036F TOBACCO NON-USER, G8950 PREHTN/HTN BP DOC INDCD F/U DOC, G8752 MOST RECENT SYSTOLIC BP < 140MM HG, G8754 MOST RECENT DIASTOLIC BP < 90MM HG, 3044F HG A1C LEVEL LT 7.0% * Follow Up: 4 Weeks * Images: Billing Information: * Visit Code: 30754 Office Visit, Est Pt., Level 4. * Procedure Codes: G2211 Complex e/[place]. [address] CBC WITH AUTO DIFF. 63543 GLYCATED HEMOGLOBIN TEST. Modifiers: QW 97436 CAPILLARY BLOOD DRAW. 1036F TOBACCO NON-USER. G8950 PREHTN/HTN BP DOC INDCD F/U DOC. G8752 MOST RECENT SYSTOLIC BP < 140MM HG. G8754 MOST RECENT DIASTOLIC BP < 90MM HG. 3044F HG A1C LEVEL LT 7.0%. * Electronic signature of Shauna Almanzar MD on 08/21/2025 at 10:59 AM EDT Sign off status: Pending * Provider: Shauna Almanzar M.D. Date: 0 07/03/2025 Generated for Marissa mendoza/Rei/eTransmitting on: 1 10:59 AM EDT History and [...]
--- OUTSIDE RECORDS SUMMARY | 2025-07-07 11:40 | XMS_ITS | Encounter Summary ---
Author Organization [facility] Address [address] [place] [address] Care Team Providers Care Gold Beater Name Role Phone Rocky Almanzar MD Primary Care Provider [phone] Reason for Referral * Consultation (Routine) - Authorized Specialty Diagnoses / Procedures Referred By Contac t Referred To Contact Diagnoses Type 2 diabetes mellitus with hyperglycemia, with long-term current use of insulin Hemochromatosis, unspecified hemochromatosis type Acquired hypothyroidism Histoplasmosis Angelica Allan DO [address] [address] Phone: tel: fax: Referral ID Status Reason Start Date Expiration Date V isits Requested Visits Authorized [id number] Authorized 07/07/2025 01/06/2027 1 1 Encounter Details Date Type Department Care Team (Late st Contact Info) Description 07/07/2025 11:40 AM EDT Office Visit [facility] Endocrinology [address] [place] [address] Angelica Allan DO [address] [facility] [address] [place] [address] Type 2 diabetes mellitus with [...] Spoke with pt about connecting [facility] CGM to [facility] Clinic. Pt does have ahmet on phone, but has not created profile or used a login to be able to share with [facility]. Provided pt with instructions on how [...] August he reports that his GI had startedhim on Budesonide 9 mg but has been reducing his doses. He stopped all steroids in March and he reports he feels very weak and decreased strength. He sees GI at [place]. He had been having glucoses >350. He states he has not been using any insulin in 3 weeks as he was having hypoglycemia with it. He also notes that he was diagnosed with [...] hyperglycemia, with long-term current use of insulin ([facility]) (Primary) - POCT glycosylated hemoglobin (Hb A1C) [...] care. Electronically signed by: Angelica Allan DO [facility] ENDOCRINOLOGY [facility] [facility]. [address] [place]. [address] PHONE [phone] FAX: [phone] Post Visit Addendum: Labs reviewed. FLP noted [...] Description 01/05/2026 9:40 AM EST Office Visit [facility] Endocrinology [address] [place] [address] Angelica Allan DO [address] [place] [address] 01/05/2026 11:00 AM EST Office Visit [facility] [address], [address] [place] [address] Vivian Macias S, OD [address] [place] [address] Scheduled Orders Name Type Priority Associated Diagnoses Orde r Schedule Cortisol Lab Routine Histoplasmosis Expected: 07/07/2025 (Approximate), Expires: 07/07/2026 ACTH Lab Routine Histoplasmosis Expected: 07/07/2025 (Approximate), Expires: 07/07/2026 Albumin-creatinine ratio, urine, random Lab Routine Type 2 diabetes mellitus with hyperglycemia, with long-term current use of insulin ([facility]) Expected: 07/07/2025 (Approximate), Expires: 07/07/2026 Lipid panel Lab Routine Type 2 diabetes mellitus with hyperglycemia, with long-term current use of insulin ([facility]) Expected: 07/07/2025 (Approximate), Expires: 07/07/2026 TSH Lab Routine Acquired hypothyroidism Expected: 07/07/2025 (Approximate), Expires: 07/07/2026 T4, free Lab Routine Acquired hypothyroidism Expected: 07/07/2025 (Approximate), Expires: 07/07/2026 Scheduled Referrals Name Type Priority Associated Diagnoses Orde r Schedule Follow Up [facility] Outpatient Referral Routine Type 2 diabetes mellitus with hyperglycemia, with long-term current use of insulin ([facility]) Hemochromatosis, unspecified hemochromatosis type Acquired hypothyroidism Histoplasmosis Expected: 01/04/2026, Expires: 01/08/2027 documented as of this encounter Procedures Procedure Name Priority Date/Time Associated Diagnosis Comments POCT GLYCOSYLATED HEMOGLOBIN (HGB A1C) Routine 07/07/2025 12:03 PM EDT Type 2 diabetes mellitus with hyperglycemia, with long-term current use of insulin ([facility]) documented in this encounter Results * CORTISOL, 60 (07/20/2025 2:40 PM EDT) Cortisol Time=60 21.00 Before 10am: 3.7 - 19.4. After 5pm: 2.9 - 17.3 ug/dL 07/20/2025 8:20 PM EDT [facility] Comment: Testing performed on [employer] Talent Acquisition Coordinator, standardized against [facility] Reference Standard concentration values assigned by LC-MS/MS [...] Allan DO LAB BLOOD ORDERABLES Final Result [facility] [address] [place] [address] * Cortisol, 30 (07/20/2025 2:03 PM EDT) Cortisol,Time=30 18.30 Before 10am: 3.7 - 19.4. After 5pm: 2.9 - 17.3 ug/dL 07/20/2025 8:19 PM EDT [facility] Comment: Testing performed on [employer] Talent Acquisition Coordinator, standardized against [facility] Reference Standard concentration values assigned by LC-MS/MS [...] Final Result Performing Organization Address [facility] Co de Phone Number [facility] [address] [place] [address] * (ABNORMAL) ACTH (07/20/2025 1:28 PM EDT) ACTH 68.2(H) 7.2 - 63 pg/mL 07/20/2025 5:38 PM EDT [facility] Blood Venous blood specimen / Unknown Venipuncture / Unknown 07/20/2025 1:28 PM EDT 07/20/2025 1:42 PM EDT Angelicalorena Allan DO LAB BLOOD ORDERABLES Final Result [facility] [address] [place] [address] * Cortisol, Time=0 (07/20/2025 1:28 PM EDT) Cortisol 8.20 Before 10am: 3.7 - 19.4. After 5pm: 2.9 - 17.3 ug/dL 07/20/2025 8:23 PM EDT [facility] Comment:Testing performed on Robert Talent Acquisition Coordinator, standardized against [facility] Reference Standard concentration values assigned by LC-MS/MS and verified by BCR 192 and BCR 193 certified reference materials. Blood Venous blood specimen / Unknown Venipuncture / Unknown 07/20/2025 1:28 PM EDT 07/20/2025 4:08 PM EDT us Angelica Allan DO LAB REF LAB BLOOD AND FLUID ORD Final Result Performing Organization Address City/[facility]/ZIP Co de Phone Number [facility] [address] [place] [address] * POCT glycosylated hemoglobin (Hb A1C) (07/07/2025 [...] Edited Result - Final Performing Organization Address City/[facility] Co de Phone Number [facility] [address] [place] [address] documented in this encounter Visit Diagnoses Diagnosis [...] documented as of this encounter Care Teams Gold Beater Relationship Specialty Start Date End Date Rocky Almanzar MD [address] [place] [address] PCP - General 03/18/21 documented as of this encounter
--- OUTSIDE RECORDS SUMMARY | 2025-07-17 14:00 | XMS_ITS | Encounter Summary ---
Author Organization [facility] Address [address] [place] [address] Care Team Providers Care Health Aide Name Role Phone Rocky Almanzar MD Primary Care Provider [phone] Reason for Visit * Reason Comments Hearing Loss Encounter Details Date Type Department Care Team (Late st Contact Info) Description 07/17/2025 2:00 PM EDT Office Visit [facility] Audiology [address], [address] [place] [address] Lottie Lund, AuD [address] [place] [address] Sensorineural hearing loss (SNHL) of [...] it does not seem to heal well. 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[employer] Ear: RE: Surgery Date: 06/14/2017-Revision 08/11/2015-Original Internal Device: [id number] Advantage/HiFocus 1J - [id number] Primary External Device: Lizabeth M90 Fit Date: 01/08/2025 Magnet strength: 2 Cord length: 3.5 Battery: Rechargeable Tyesha Exp: 01/08/2028 LE: Surgery Date: 04/07/2020 Internal Device: HiRes Uackb3W/HiFocus SlimJ - [id number] Primary External Device: Lizabeth Q90 Fit Date: [...] EST Office Visit [facility] [address] [place] [address] Melany Rosales DO [address] [place] [address] 01/05/2026 11:00 AM EST Office Visit [facility] [address] [place] [address] Vivian Macias S, OD [address] [place] [address] documented as of this encounter [...] documented as of this encounter Care Teams Health Aide Relationship Specialty Start Date End Date Rocky Almanzar MD [address] [place] [address] PCP - General 03/18/21 documented as of this encounter
--- OUTSIDE RECORDS SUMMARY | 2025-07-20 13:30 | XMS_ITS | Encounter Summary ---
Author Organization [facility] Address [address] [place] [address] Care Team Providers Care Last Repairer Name Role Phone Rocky Almanzar MD Primary Care Provider [phone] Encounter Details Date Type Department Care Team (Late st Contact Info) Description 07/20/2025 1:30 PM EDT Clinical Support [facility] [address] [place] [address] Social History Tobacco Use Types [...] Visit [facility] [address] [place] [address] Melany Rosales DO [address] [place] [address] 01/05/2026 11:00 AM EST Office Visit [facility] [place] [address] [place] [address] Vivian Macias S, OD [address] [place] [address] documented as of this encounter [...] documented as of this encounter Care Teams Last Repairer Relationship Specialty Start Date End Date Rocky Almanzar MD [address] [place] [address] PCP - General 03/18/21 documented as of this encounter
--- OUTSIDE RECORDS SUMMARY | 2025-08-07 07:00 | XMS_ITS ---
Author Organization [facility] Address 12[address] [facility] [address] [phone] Care Team Providers Care Heatset Winder Operator Name Role Phone Shauna Almanzar Primary Care Provider [phone] Allergies Allergen (clinical drug ingredient) Drug/Non Drug Allergy documented on EMR Reaction Allergy Type Onset Date Status cephalexin Cephalexin Unknown Drug Allergy Activ e Reason For Referral Reason needs physical and p ulmonary rehab Diagnosis 1 Interstitial lung di sease (J84.9) [facility] Referring Provider First Name Shauna Beatty Referring Provider Last Name Yohan Referring Provider Speciality Family Pra ctice Referred Provider Specialty Physical The rapist General Notes Genoveva Grigsby 2024 01:08:41 PM > faxed to [facility] PT Referral Priority Routine REASON FOR [...] Orally at bedtime Not-Taking FreeStyle Leroy 3 [place] - as directed 05/12/2025 Not-Taking FreeStyle Leroy [...] 08/07/2025 Encounters Encounter Location Date Provider Diagnosis [facility] [address] [id number] 08/07/2025 Shauna Almanzar Type 2 diabetes aquilino itus without complication E11.9 ; Acquired hypothyroidism E03.9 ; Hereditary hemochromatosis E83.110 ; Cochlear implant status Z96.21 ; Interstitial lung disease J84.9 ; [facility] (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.4 and Adrenal [...] Name:Shauna Merida er, 11/12/2025 01:30:00 PM, [address] [facility] [address], [address], [place], [place], [id number], Progress Notes * HERMILA GOLDENOB: [birth year] (75 yo M)Acc No.[id number]:08/07/2025 Progress Notes Patient: HERMILA BUCIO Provider: Shauna Almanzar M.D. :1950 A ge:75 Y S ex:Male Date:08/07/2025 Address:[address] [place] [address], [place] [phone] Subjective: * Chief Complaints: * 1 . [...] Dec 2020, [place] My Chart, user name: [email or web address] Passw: [email or web address], bilateral iridectomies Sep 2021, Histoplasmosis. [...] bedtime , Not- Taking FreeStyle Leroy 3 [place] - Device as directed , Not-Taking FreeStyle [...] * Images: Billing Information: * Visit Code: 06406 Office Visit, Est Pt., Level 4. * [...] Provider: Shauna Almanzar M.D. Date: Generated for Marissa mendoza/Rei/eTransmitting on: 10:57 AM EDT History and Physical Notes [...]
--- OUTSIDE RECORDS SUMMARY | 2025-08-10 11:12 | XMS_ITS ---
Author Organization [facility] Address [address] [place] [address] [place] [address] Phone Care Team Providers Care Upkeep Mechanic Name Role Phone Sukumar CUEVAS, Rocky Griggs [ ] Conditions or Problems No information available. Medications Medication Instructions Start Date Stop Date Generic Name [facility] Provider warfarin warfarin Rocky Patino MD potassium citrate (replacement) 99 mg capsule potassium citrate [id number] Lulú Ciro Medications Administered No information available. Allergies, Adverse Reactions, Alerts No information available. Results Date Name Value Unit Range Flag Description Office Visit: Office Visit: 4 MEDS REVIEW Done Documenta tion of current medications (procedure) SMOK STATUS Former smoker Tob acco smoking status Plan of Care Type Date Detail Appointment 11:00 AM Rocky Patino MD, [facility], [address], [place], [address], Pending order CMP Pending order CBC with [...]
--- OUTSIDE RECORDS SUMMARY | 2025-08-21 10:57 | XMS_ITS | Encounter Summary ---
Author Organization [facility] Address [address] [place] [address] Care Team Providers Care Manager Print Name Role Phone Rocky Almanzar MD Primary Care Provider [phone] Reason for Visit * Reason Comments Med Refill Encounter Details Date Type Department Care Team (Late Contact Info) Description 11/10/2021 Refill [facility] [address] [place] [address] Jason Romero MD [address] [address] Type 2 diabetes mellitus with other specified complication, with long-term current use of insulin ([facility]) Social History Tobacco Use [...] Visit [facility] [address] [place] [id number] Melany Rosales DO [address] [place] [address] 01/05/2026 11:00 AM EST Office Visit [facility] [place] [address], [address] [place] [address] Vivian Macias S, OD [address] [facility] [address] [place] [address] documented as of this encounter [...] as of this encounter Care Teams Manager Print Relationship Specialty Start Date End Date Rocky Almanzar MD [address] [place] [address] PCP - General 03/18/21 documented as of this encounter
--- OUTSIDE RECORDS SUMMARY | 2025-08-21 10:57 | XMS_ITS | Clinical Summary ---
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 492708487 (SNOMED CT) 01/14 Active 01/14 Rocky Patino MD Drug-induced immunodeficiency Leukopenia 93956326 (SNOMED CT) 01/14 Active 01/14 Rocky Patino MD Leukopenia 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/09 Active 01/09 Echo Mccurdy 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/09 Active 01/09 Echo Mccurdy Acute pulmonary histoplasmosis capsulati Medications Medication Instructions Start Date Stop Date Generic Name [facility] Provider warfarin warfarin Rocky Patino MD potassium citrate (replacement) 99 mg capsule potassium citrate [id number] Luz Tanner VORICONAZOLE 200 MG TABS Take 1 tablet by mouth once a day voriconazole 63995916881 Rocky Patino MD MINOCYCLINE HCL 100 MG CAPS 1 capsule by mouth twice a day Take one twice a day for three days then only take 1 once a day minocycline 31731526589 Rocky Patino MD budesonide 3 mg by mouth as needed as directed 06/15 budesonide Flavio Mack budesonide 3 mg by mouth as needed as directed 06/15 budesonide Hugh Angel EZETIMIBE 10 MG TABS 1 tablet by mouth once a day 04/17 ezetimibe 20788711582 eros Angel XARELTO 20 MG TABS 04/17 rivaroxaban 60294830548 [facility] Stanley PRAVASTATIN SODIUM 20 MG TABS 1 tablet by mouth once a day 04/17 pravastatin 15362922319 eros Angel aspirin 81 mg capsule 1 capsule by mouth once a day 04/17 aspirin [facility] Stanley ITRACONAZOLE 100 MG CAPS Take 2 capsule by mouth twice a day 04/14 itraconazole 43089021520 Anne Merlos ITRACONAZOLE 100 MG CAPS TAKE TWO CAPSULES BY MOUTH TWICE DAILY itraconazole 32023509307 Rocky Patino MD IPRATROPIUM-ALBU TEROL 0.5-2.5 (3) MG/3ML SOLN 01/19 ipratropium-albut [place] 42353196289 Amrita Belin JARDIANCE 10 MG TABS 1 tablet by mouth once a day 01/19 empagliflozin 28313942587 Amrita Hope ITRACONAZOLE 100 MG CAPS Take 2 capsule by mouth twice a day 04/14 itraconazole 65625059060 Rocky Patino MD XARELTO 20 MG TABS 04/17 rivaroxaban 83518383830 [facility] aspirin 81 mg capsule 1 capsule by mouth once a day 04/17 aspirin Laiba Sonu budesonide 9 mg by mouth as needed as directed 04/17 budesonide Laiba Sonu VITAMIN D 25 MCG (1000 UT) TABS 1 tablet by mouth once a day cholecalciferol (vitamin d3) 51993969786 Laiba Sonu JARDIANCE 10 MG TABS 1 tablet by mouth once a day 01/19 empagliflozin 82869488301 Laiba Sonu EZETIMIBE 10 MG TABS 1 tablet by mouth once a day 04/17 ezetimibe 28396272602 Laiba Sonu insulin lispro protamine-lispro 100 unit/mL (75-25) subcutaneous susp insulin lispro protamin-lispro Laiba Sonu IPRATROPIUM-ALBU TEROL 0.5-2.5 (3) MG/3ML SOLN ipratropium-albut [place] 92174610739 Laiba Sonu LEVOTHYROXINE SODIUM 50 MCG TABS 1 tablet by mouth once a day levothyroxine 04067199167 Laiba Sonu METFORMIN HCL 500 MG TABS 1 tablet by mouth once a day metformin 17816410900 Laiba Sonu MIRTAZAPINE 15 MG TABS 1 tablet by mouth once a day mirtazapine 31271614916 Laiba Sonu MYCOPHENOLATE MOFETIL 500 MG TABS 1 tablet by mouth twice a day mycophenolate mofetil 81437268091 Laiba Sonu PRAVASTATIN SODIUM 20 MG TABS 1 tablet by mouth once a day 04/17 pravastatin 55029855136 Laiba Sonu URSODIOL 500 MG TABS 1 tablet by mouth twice a day ursodiol 19279244330 Laiba Sonu Medications Administered No information available. 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, [facility] yes Fall ris k assessment Lab [...] Serum or Plasma Office Visit: Office Visit: 4 MEDS REVIEW Done Documenta tion of current medications (procedure) SMOK STATUS Former smoker Tobacco smoking status Plan of Care Type Date Detail Appointment 11:00 AM Rocky Patino MD, [address] [facility], [address], [place], [address], Pending order CMP Pending order CBC with Differe ntial Pending order Voriconazole Lev el Pending order New Oral Antibio tic Pending [...] Date G2 Complex E&M visit add-on (G2211) G2211 Complex E&M visit add-on (G2211) G2211 Complex E&M visit add-on (G2211) CPT-95580 CMP [id number] CBC with Differential 2024 CPT-80051 BNP CPT-72337 Itraconazole Level 3 CPT-Cooral Continue oral antibiotics 29/04/13 G2211 Complex E&M visit add-on (G2211) CPT-Cooral Continue oral antibiotics 20 27/02/11 CPT-66146 CMP [id number] CBC with Differential 2024 CPT-84218 Itraconazole Level 1 CPT-07025 BNP CPT-elizabeth New Oral Antibiotic CPT-20562 CMP [id number] CBC with Differential 2024 CPT-34497 CD4 54150 Fungitell, serum (1-3) D-Glucan Assay 03/07/12 CPT-37160 Urine Culture & Sensitivity [id number], [id number] Urinalysis CPT-cf Fungal Culture & Sensitivity CPT-09050 BNP Vital Signs Date Name Value Unit [...]
--- OUTSIDE RECORDS SUMMARY | 2025-08-21 10:57 | XMS_ITS | Clinical Summary ---
Author Organization [facility] Address [address] [place] [address] Care Team Providers Care Steel Tester Name Role Phone Provider, No Known Primary [...] 08/15/2016 AAA SCREEN ONCE Completed 12/07/2016 Insurance [facility] [employer] PPO Care Teams Steel Tester Relationship Specialty Start Date End Date Provider, No Known [facility] [place] [address] PCP - General 01/14/25
--- OUTSIDE RECORDS SUMMARY | 2025-08-21 10:58 | XMS_ITS | Encounter Summary ---
Author Organization [facility] Address [address] [place] [address] Care Team Providers Care Care Tech Name Role Phone Rocky Almanzar MD Primary Care Provider [phone] Encounter Details Date Type Department Care Team (Late st Contact Info) Description 07/09/2025 Results Follow-Up [facility] [address] [place] [address] Melany Rosales, 2[address] [facility] [address] [place] [address] Social History Tobacco Use Types [...] Description 01/05/2026 9:40 AM EST Office Visit [facility] Endocrinology [address] [place] [address] Melany Rosales DO [address] [facility] [address] [place] [address] 01/05/2026 11:00 AM EST Office Visit [facility] Eye [place] [address], [address] [place] [address] Vivian Macias S, OD [address] [place] [address] documented as of this encounter [...] documented as of this encounter Care Teams Care Tech Relationship Specialty Start Date End Date Rocky Almanzar MD [address] [place] [address] PCP - General 03/18/21 documented as of this encounter
--- OUTSIDE RECORDS SUMMARY | 2025-08-21 10:58 | XMS_ITS | Encounter Summary ---
Author Organization [facility] Address [address] [facility] [place] [address] Care Team Providers Care Inletter Name Role Phone Rocky Almanzar MD Primary Care Provider [phone] Encounter Details Date Type Department Care Team (Late st Contact Info) Description 07/08/2025 Orders [facility] [address] [place] [address] Melany Rosales DO [address] [address] Social History Tobacco Use Types [...] 01/05/2026 9:40 AM EST Office [facility] Endocrinology [address] [place] [address] Melany Rosales DO [address] [address] 01/05/2026 11:00 AM EST Office Visit [facility] Eye [place] [address], [address] [place] [address] Vivian Macias S, OD [address] [place] [address] documented as of this encounter [...] documented as of this encounter Care Teams Inletter Relationship Specialty Start Date End Date Rocky Almanzar MD [address] [place] [address] PCP - General 03/18/21 documented as of this encounter
--- OUTSIDE RECORDS SUMMARY | 2025-08-21 10:58 | XMS_ITS | Encounter Summary ---
Author Organization [facility] Address [address] [facility] [place] [address] Care Team Providers Care Sports Psychologist Name Role Phone Rocky Almanzar MD Primary Care Provider [phone] Encounter Details Date Type Department Care Team (Late st Contact Info) Description 07/09/2025 [facility]ology [address] [place] [address] Melany Rosales DO [address] [address] Social History Tobacco Use Types [...] Description 01/05/2026 9:40 AM EST Office [facility] Endocrinology [address] [place] [address] Melany Rosales DO [address] [address] 01/05/2026 11:00 AM EST Office Visit [facility] Eye [place] [address], [address] [place] [address] Vivian Macias S, OD [address] [place] [address] documented as of this encounter [...] documented as of this encounter Care Teams Sports Psychologist Relationship Specialty Start Date End Date Rocky Almanzar MD [address] [place] [address] PCP - General 03/18/21 documented as of this encounter
--- OUTSIDE RECORDS SUMMARY | 2025-08-21 10:58 | XMS_ITS | Encounter Summary ---
Author Organization [facility] Address [address] [place] [address] Care Team Providers Care Machine Tool Technology Instructor Name Role Phone Rocky Almanzar MD Primary Care Provider [phone] Reason for Visit * Reason Comments Med Refill Encounter Details Date Type Department Care Team (Late Contact Info) Description 05/20/2021 Refill [facility] Endocrinology [address] [place] [address] Jason Romero MD [address] [address] Social History Tobacco Use Types [...] Description 01/05/2026 9:40 AM EST Office Visit [facility] Endocrinology [address] [place] [address] Melany Rosales, DO [address] [place] [address] 01/05/2026 11:00 AM EST Office Visit [facility] Eye [place] [address], [address] [place] [address] Vivian Macias S, OD [address] [place] [address] documented as of this encounter Visit Diagnoses Not on filedocumented in this encounter Additional Health Concerns Infection Onset Date Last Indicated Resolved Time 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
--- OUTSIDE RECORDS SUMMARY | 2025-08-21 10:58 | XMS_ITS | Encounter Summary ---
Author Organization [facility] Address [address] [facility] [place] [address] Care Team Providers Care Stranding Machine Operator Name Role Phone Rocky Almanzar MD Primary Care Provider [phone] Encounter Details Date Type Department Care Team (Late st Contact Info) Description 07/10/2025 Orders Only [facility] End[facility]ology [address] [place] [address] Melany Rosales DO [address] [address] Social History Tobacco Use Types [...] Description 01/05/2026 9:40 AM EST Office Visit [facility] Endocrinology [address] [place] [address] Melany Rosales DO [address] [address] 01/05/2026 11:00 AM EST Office Visit [facility] Eye [place] [address], [address] [place] [address] Vivian Macias S, OD [address] [place] [address] documented as of this encounter [...] documented as of this encounter Care Teams Stranding Machine Operator Relationship Specialty Start Date End Date Rocky Almanzar MD [address] [place] [address] PCP - General 03/18/21 documented as of this encounter
--- OUTSIDE RECORDS SUMMARY | 2025-08-21 10:58 | XMS_ITS | Encounter Summary ---
Author Organization [facility] Address [address] [place] [address] Care Team Providers Care Customer Service Rep Name Role Phone Rocky Almanzar MD Primary Care Provider [phone] Reason for Visit * Reason Comments Med Refill Encounter Details Date Type Department Care Team (Late st Contact Info) Description 06/30/2025 Refill [facility] Endocrinology [address] [place] [address] Jason Romero MD [address] [address] Social History Tobacco Use Types [...] Description 01/05/2026 9:40 AM EST Office Visit [facility] Endocrinology [address] [place] [address] Melany Rosales, DO [address] [place] [address] 01/05/2026 11:00 AM EST Office Visit [facility] [address] [place] [address] Vivian Macias S, OD [address] [place] [address] documented as of this encounter [...] as of this encounter Care Teams Customer Service Rep Relationship Specialty Start Date End Date Rocky Almanzar MD [address] [place] [address] PCP - General 03/18/21 documented as of this encounter
--- OUTSIDE RECORDS SUMMARY | 2025-08-21 10:58 | XMS_ITS | Encounter Summary ---
Author Organization [facility] Address [address] [place] [address] Care Team Providers Care Communications Tower Climber Name Role Phone Rocky Almanzar MD Primary Care Provider [phone] Encounter Details Date Type Department Care Team (Late st Contact Info) Description 07/20/2025 [facility] [address] [place] [address] Melany Rosales DO [address] [place] [address] Type 2 diabetes mellitus with hyperglycemia, with long-term current use of insulin ([facility]) (Primary Dx) Social History Tobacco Use Types [...] Description 01/05/2026 9:40 AM EST Office Visit [facility] Endocrinology [address] [place] [address] Melany Rosales DO [address] [facility] [address] [place] [address] 01/05/2026 11:00 AM EST Office Visit [facility] Eye [place] [address], [address] [place] [address] Vivian Macias S, OD [address] [place] [address] documented as of this encounter [...] documented as of this encounter Care Teams Communications Tower Climber Relationship Specialty Start Date End Date Rocky Almanzar MD [address] [place] [address] PCP - General 03/18/21 documented as of this encounter
--- OUTSIDE RECORDS SUMMARY | 2025-08-21 10:59 | XMS_ITS | Encounter Summary ---
Author Organization [facility] Address [address] [place] [address] Care Team Providers Care Solar Electric/Photovoltaic Installer Name Role Phone Rocky Almanzar MD Primary Care Provider [phone] Encounter Details Date Type Department Care Team [...] Description 01/05/2026 9:40 AM EST Office Visit [facility] Endocrinology [address] [place] [address] Melany Rosales, DO [address] [place] [address] 01/05/2026 11:00 AM EST Office Visit [facility] Eye [place] [address], [address] [place] [address] Vivian Macias S, OD [address] [place] [address] documented as of this encounter Visit Diagnoses [...] as of this encounter Care Teams Solar Electric/Photovoltaic Installer Relationship Specialty Start Date End Date Rocky Almanzar MD [address] [place] [address] PCP - General 03/18/21 documented as of this encounter
--- OUTSIDE RECORDS SUMMARY | 2025-08-21 10:59 | XMS_ITS | Encounter Summary ---
Author Organization [facility] Address [address] [place] [address] Care Team Providers Care Professor Of Environmental Science Name Role Phone Rocky Almanzar MD Primary Care Provider [phone] Encounter Details Date Type Department Care Team [...] Description 01/05/2026 9:40 AM EST Office Visit [facility] Endocrinology [address] [place] [address] Melany Rosales, DO [address] [place] [address] 01/05/2026 11:00 AM EST Office Visit [facility] Eye [place] [address], [address] [place] [address] Vivian Macias S, OD [address] [place] [address] documented as of this encounter Visit Diagnoses [...] documented as of this encounter Care Teams Professor Of Environmental Science Relationship Specialty Start Date End Date Rocky Almanzar MD [address] [place] [address] PCP - General 03/18/21 documented as of this encounter
--- OUTSIDE RECORDS SUMMARY | 2025-08-21 10:59 | XMS_ITS | Encounter Summary ---
Author Organization [facility] Address [address] [place] [address] Care Team Providers Care Home Health Clinician Name Role Phone Rocky Almanzar MD Primary Care Provider [phone] Encounter Details Date Type Department Care Team [...] Description 01/05/2026 9:40 AM EST Office Visit [facility] Endocrinology [address] [place] [address] Melany Rosales, DO [address] [place] [address] 01/05/2026 11:00 AM EST Office Visit [facility] Eye [place] [address], [address] [place] [address] Vivian Macias S, OD [address] [place] [address] documented as of this encounter Visit Diagnoses [...] documented as of this encounter Care Teams Home Health Clinician Relationship Specialty Start Date End Date Rocky Almanzar MD [address] [place] [address] PCP - General 03/18/21 documented as of this encounter
--- OUTSIDE RECORDS SUMMARY | 2025-08-21 10:59 | XMS_ITS | Clinical Summary ---
Author Organization [facility] Address [address] [place] [address] Care Team Providers Care Waist Presser Name Role Phone Rocky Almanzar MD Primary Care Provider [phone] Allergies Active Allergy Reactions Criticality Noted Date [...] (two) times a day. Active insulin lispro protamine-insul in lispro (HumaLOG MIX 75/25 KWIKPEN) (75-25) 100 UNIT/ML injection pen INJECT 26 UNITS THREE TIMES A DAY. TITRATE DIRECTED TO MAXIMUM DAILY DOSE OF 100 UNITS. 90 mL 1 5 Active Additional Information Patient not taking.Reported on 07/07/2025 Jardiance 10 MGIndications:T ype 2 diabetes mellitus with hyperglycemia, with long-term current use of insulin TAKE 1 TABLET DAILY 90 tablet 3 5 Active minocycline 100 MG capsule TAKE ONE CAPSULE BY MOUTH TWICE DAILY FOR 3 DAYS THEN take 1 capsule ONCE daily 5 Active potassium chloride CR (Klor-Con M20) 20 MEQ ER tablet 5 Active voriconazole (Vfend) 200 MG tablet every 12 hours. Acti ve warfarin (Coumadin) 6 MG tablet 1 (one) time each day at the same time. Active metFORMIN (Glucophage) 500 MG tabletIndicatio ns:Type 2 diabetes mellitus with hyperglycemia, with long-term current use of insulin TAKE ONE TABLET BY MOUTH TWICE DAILY --TAKE WITH FOOD-- 180 tablet 3 5 Active Continuous Glucose Sensor (FreeStyle Leroy 3 Plus Sensor) miscIndications :Type 2 diabetes mellitus with hyperglycemia, with long-term current use of insulin 1 Device every 14 days. 2 each 5 5 01/17/20 Active Active Problems Problem Noted Date Diagnosed [...] Description 07/20/2025 1:30 PM EDT [facility] [address] [place] [address] 07/20/2025 Orders Only [facility] [address] [place] [address] Melany Rosales, Type 2 diabetes mellitus with hyperglycemia, with long-term current use of insulin ([facility]) (Primary Dx) 07/20/2025 Travel 07/17/2025 2:00 PM EDT Office Visit [facility] Audiology [address] [place] [address] Lottie Lund AuD Sensorineural hearing loss (SNHL) of both ears 07/17/2025 Travel 07/10/2025 Orders Only [facility] [address] [place] [address] Melany Rosales, 07/09/2025 [facility] [address] [place] [address] Melany Rosales, 07/09/2025 [facility] [address] [place] [address] Melany Rosales, 07/08/2025 Orders Only [facility] [address] [place] [address] Melany Rosales, 07/07/2025 11:40 AM EDT Office Visit [facility] [address] [place] [address] Melany Rosales, Type 2 diabetes mellitus with hyperglycemia, with long-term current use of insulin (CMS/HCC) (Primary Dx); Hemochromatosis, unspecified hemochromatosis type; Acquired hypothyroidism; Histoplasmosis; Elevation of adrenocorticotropic hormone (ACTH) 07/07/2025 Travel 06/30/2025 Refill [facility] [address] [place] [address] Jason Romero MD from Last 3 Months [...] Visit [facility] [address] [place] [address] Melany Rosales, DO [address] [place] [address] 01/05/2026 11:00 AM EST Office Visit [facility] [address], [address] [place] [address] Vivian Macias S, OD [address] [place] [address] Health Maintenance Due Date Last Done Comments [facility]-Depression Screening 1950 [facility]-Medicare Annual Wellness (AWV) 1950 [facility]-/Child/Adol SDOH Screenings 1950 Diabetes: Dental Exam 1961 [facility]- SDOH Screenings 1969 [facility]-Adult SDOH Screenings 1969 [facility]-DTaP,Tdap,and Td Vaccines (1 - Tdap) 1970 [facility]-Zoster Vaccines (1 of 2) 1970 CT Colonography 1996 FIT-DNA 1996 FIT 1996 FOBT 1996 Sigmoidoscopy 1996 [facility]-Abdominal Aortic Aneurysm (AAA) Screening 2016 [id number] Vaccine (7 - Moderna risk season) 2025 [...] topic Medical Devices Implanted Type Area Director Of Academic Support Device Identifier Shelf Expiration Date Model / Serial / Lot Roseline Stanleyk Advantage Ci Hifocus 1j Electrode--06/05 Implanted:06/05 by Ky Del Rio MD (Quantity not on file) Cochlear Left: Ear TNC [id number] / [id number] / Description:Roseline StanleyK Advant age CI HiFocus 1J electrode--cochlear implant by Dr. Del Rio at [facility] on 06/21/2017, operative note in Epic. LEFT EAR. Roseline ULTRA 3D Cochlear implant REF: [id number] Serial number: [id number] Procedures Procedure Name Priority Date/Time Associated Diagnosis [...] hyperglycemia, with long-term current use of insulin (CMS/[facility]) COLONOSCOPY 08/03/2017 HEPATITIS C ANTIBODY W/REFLEX TO HCV QUANT PCR Routine 08/15/2016 10:05 AM EDT from Last 3 Months or Most Recently Relevant to Health Maintenance Results * CORTISOL, 60 (07/20/2025 2:40 PM EDT) Cortisol Time=60 21.00 Before 10am: 3.7 - 19.4. After 5pm: 2.9 - 17.3 ug/dL 07/20/2025 8:20 PM EDT [facility] Comment: Testing performed on [employer] Mule Rider, standardized against LONG-TERM Reference Standard concentration values assigned by LC-MS/MS [...] 2:40 PM EDT 07/20/2025 4:08 PM EDT Melany Rosales DO LAB BLOOD ORDERABLES Final Result Performing Organization Address [facility] de Phone Number [facility] [address] [place] [address] * Cortisol, 30 (07/20/2025 2:03 PM EDT) Cortisol,Time=30 18.30 Before 10am: 3.7 - 19.4. After 5pm: 2.9 - 17.3 ug/dL 07/20/2025 8:19 PM EDT [facility] Comment: Testing performed on [employer] Mule Rider, standardized against LONG-TERM Reference Standard concentration values assigned by LC-MS/MS [...] 2:03 PM EDT 07/20/2025 4:08 PM EDT Melany Rosales LAB BLOOD ORDERABLES Final Result Performing Organization Address [facility] de Phone Number [facility] [address] [place] [address] * (ABNORMAL) ACTH (07/20/2025 1:28 PM EDT) Only the most recent of2 resultswithin the time period is included. ACTH 68.2(H) 7.2 - 63 pg/mL 07/20/2025 5:38 PM EDT [facility] Blood Venous blood specimen / Unknown Venipuncture / Unknown 07/20/2025 1:28 PM EDT 07/20/2025 1:42 PM EDT Melany Rosales DO LAB BLOOD ORDERABLES Final Result Performing Organization Address [facility] Co de Phone Number [facility] [address] [place] [address] * Cortisol, Time=0 (07/20/2025 1:28 PM EDT) Only the most recent of2 resultswithin the time period is included. Pathologist [facility] Cortisol 8.20 Before 10am: 3.7 - 19.4. After 5pm: 2.9 - 17.3 ug/dL 07/20/2025 8:23 PM EDT [facility] Comment:Testing performed on [employer] Mule Rider, standardized against LONG-TERM Reference Standard concentration values assigned by LC-MS/MS and verified by BCR 192 and BCR 193 certified reference materials. Blood Venous blood specimen / Unknown Venipuncture / Unknown 07/20/2025 1:28 PM EDT 07/20/2025 4:08 PM EDT us Melany Rosales DO LAB REF LAB BLOOD AND FLUID ORD Final Result Performing Organization Address City/[facility]/ZIP Co de Phone Number [facility] [address] [place] [address] * HM Lipid Panel (07/08/2025 3:03 PM EDT) us Melany Rosales DO HEALTH MAINTENANCE Final Re sult * Free T4, Plasma (07/08/2025 3:00 PM EDT) Blood Venous blood specimen / Unknown us Melany Rosales DO LAB BLOOD ORDERABLES Final Result * POCT glycosylated hemoglobin (Hb A1C) (07/07/2025 12:03 PM EDT) Pathologist [facility] POCT Hemoglobin A1C 6.7 <5.7% Non-Diabet ic % [facility] Kit Lot Number [id number] [facility] Kit Expiration Date 04/2027 [facility] Blood Venous blood specimen / Unknown 07/07/2025 12:03 PM EDT Melany Rosales DO POINT OF CARE TEST ENTER/ED IT ORDERABLES Edited Result - Final [facility] [address] [place] [address] * COLONOSCOPY (08/03/2017) Anatomical Region Laterality Modality [...] Date Last Indicated MRSA 03/30/2021 03/30/2021 Insurance [facility] Care Teams Waist Presser Relationship Specialty Start Date End Date Rocky Almanzar MD [address] [place] [address] PCP - General 03/18/21
--- OUTSIDE RECORDS SUMMARY | 2025-08-21 11:00 | XMS_ITS | Patient Health Record ---
Author Organization [facility] Address [address] [facility] [address] [id number] Care Team Providers Care Firmware Architect Name Role Phone Shauna Almanzar Primary Care Provider Bowie Emir Unavailable [phone] Trinity Medeiros Unavailable [phone] Doretha Burns Unavailable [phone] Allergies Allergen (clinical drug ingredient) Drug/Non Drug [...] 229 Performing Lab: Notes/Report: Test performed by [facility] [address] [place] [address] , [address], [place] [address] Kristian Trevino MD, Machine Operator Helper CLIA: [id number] Sodium 138 135-145 mmol/L Potassium 4.3 3.5-5.3 [...] 2+ Glycohemoglobin A1c (in hous e) Reviewed date:04/03/2025 09:15:19 AM Interpretation:11 Performing Lab: Notes/Report: 11 glycohemoglobin 11.1% 5 - 6.5 % P-Comprehensive Metabolic Pa tarah (CMP) Reviewed date:06/04/2025 01:02:08 PM Interpretation:gluc 347, bun 29, Ca 8.5, prot 5.5 Performing Lab: Notes/Report: Test performed by [facility] [address] [place] [address] , [address], [place] [address] Kristian Trevino MD, Machine Operator Helper CLIA: [id number] Sodium 139 135-145 mmol/L Potassium 3.7 3.5-5.3 [...] 695 Performing Lab: Notes/Report: Test performed by [facility] [address] , [address], [place] [address] Kristian Trevino MD, Machine Operator Helper CLIA: [id number] Albumin/Creatinine Ratio, Urine 695 0-30 ug/mg Microalbumin, [...] 175 Performing Lab: Notes/Report: Test performed by [facility] [address] , [place] [address] Kristian Trevino MD, Machine Operator Helper CLIA: [id number] Sodium 140 135-145 mmol/L Potassium 4.1 3.5-5.3 mmol/L Chloride 105 97-108 mmol/L CO2 22 20-32 mmol/L Glucose 175 65-99 mg/dL BUN 12 8-23 mg/dL Creatinine 1.26 0.70-1.30 mg/dL Calcium 9.4 8.6-10.4 mg/dL eGFR by Creatinine 60 >59 mL/min/1.73m2 P-Cortisol, Random Reviewed date:07/07/2025 10:18:42 AM Interpretation: Normal Performing Lab: Notes/Report: Test performed by [facility] [address] , [place] [address] Kristian Trevino MD, Machine Operator Helper CLIA: [id number] Cortisol, Random 7.7 CORTISOL REFERENCE RANGE AM Serum: 6.0-18.4 ug/dL PM Serum: 2.7-10.5 ug/dL P-Iron Reviewed date:07/07/2025 10:18:42 AM Interpretation:28 Performing Lab: Notes/Report: Test performed by [facility] [address] , [place] [address] Kristian Trevino MD, Machine Operator Helper CLIA: [id number] Iron 28 59-158 ug/dL P-TSH Reviewed date:07/07/2025 10:18:42 AM Interpretation:6.42 Performing Lab: Notes/Report: Test performed by [facility] [address] [place] [address] , [place] [address] Kristian Trevino MD, Machine Operator Helper CLIA: [id number] TSH 6.42 0.43-5.25 mU/L P-Vitamin D 25-Hydroxy Reviewed date:06/10/2025 08:30:05 AM Interpretation:Normal Performing Lab: Notes/Report: Test performed by [facility] [address] , [place] [address] Kristian Trevino MD, Machine Operator Helper CLIA: [id number] Vitamin D 25-Hydroxy 57.8 30.0-100.0 ng/mL Interpretation of Vitamin D 25 OH: < 20 ng/mL - Deficiency 20 - 29 ng/mL - Insufficiency 30 - 100 ng/mL - Sufficiency > 100 ng/mL - Super-therapeutic- toxicity may occur above this level. Clinical correlation required. P-TSH reflex to FT4 Reviewed date:06/10/2025 08:30:05 AM Interpretation:Normal Performing Lab: Notes/Report: Test performed by [facility] [address] , [address], [place] [address] Kristian Trevino MD, Machine Operator Helper CLIA: [id number] TSH reflex to FT4 3.44 0.43-5.25 mU/L P-Sed Rate (ESR) Reviewed date:06/10/2025 08:30:05 AM Interpretation:31 Performing Lab: Notes/Report: [facility] , [facility], [place] [address] Kristian Trevino MD, Machine Operator Helper CLIA: [id number] Erythrocyte Sedimentation Rate (ESR), Automated 31 <21 mm/hr O-Z-Cnjoexup Protein (CRP) Reviewed date:06/10/2025 08:30:05 AM Interpretation:4.00 Performing Lab: Notes/Report: Test performed by [facility] , [address], [place] [address] Kristian Trevino MD, Machine Operator Helper CLIA: [id number] C-Reactive Protein (CRP) 4.00 <0.50 mg/dL P-CPK Reviewed date:06/10/2025 08:30:05 AM Interpretation:23 Performing Lab: Notes/Report: Test performed by [facility] [address] , [address], [place] [address] Kristian Trevino MD, Machine Operator Helper CLIA: [id number] Creatine Kinase 23 20-200 U/L P-Comprehensive Metabolic Pa tarah (CMP) Reviewed date:06/10/2025 08:30:05 AM Interpretation:K 3.0, Glu 245, Creat 1.52, eGFR 48, Pro 5.8, Alb 3.2, Alk Phos 232 Performing Lab: Notes/Report: Test performed by [facility] [address] [place] [address] , [address], [place] [address] Kristian Trevino MD, Machine Operator Helper CLIA: [id number] Sodium 141 135-145 mmol/L Potassium 3.0 3.5-5.3 [...] - 38 platlet 538 100 - 400 H-BMP Reviewed date:09/08/2024 11:20:09 AM Interpretation:cl 109, co2 21, bun 25, doq765 Performing Lab: Notes/Report: NA 137 136-145 mmol/L K 3.8 3.5-5.1 mmoL/L CL 109 98-107 mmol/L CO2 21 22.0-30.0 mmol/L GAP 10.8 5-15 mEq/L BUN 25 9-20 mg/dl CREATT 1.20 0.66-1.25 mg/dl GFRAA 72 >60 ML/MIN EGFR 59 >60 ml/min GLU 380 74-100 mg/dl CA 9.0 8.4-10.2 mg/dl H-BMP Reviewed date:08/26/2024 02:54:53 PM Interpretation: Performing [...] 370 74-100 mg/dl CA 9.0 8.4-10.2 mg/dl Medications Medication SIG (Take, Route, Frequency, Duration) Notes Start Date End Date Status Voriconazole 200 MG 1 tablet 1 hour before or 1 hour after meals Orally every 12 hrs Active Budesonide 3 MG 1 Orally at bedtime Not-Taking Ipratropium-Albuterol 0.5-2.5 (3) MG/3ML 3 mL as needed Inhalation every 6 hrs Active FreeStyle Leroy 3 Shobonier - as directed 05/12/2025 Not-Taking Warfarin Sodium 6 MG 1 tablet [...] Once a day; Duration: 30 day(s) Active Jardiance 10 mg 1 [...] once a day; Duration: 30 days Active Immunizations Vaccine Route Administration Date [...] and older) IM Intramuscular 10/09/2024 Administered Fluzone High Dose (65yr and older) IM Intramuscular 08/07/2025 Administered COVID 19 Moderna IM Intramuscular 11/15/2020 Administered COVID 19 Moderna IM Intramuscular 12/14/2020 Administered COVID 19 Moderna Unknown 09/28/2021 Administered Problems Problem Type SNOMED Code ICD Code Onset Dates Problem Status W/U Status Risk Notes Problem Essential hypertension (23221497) Essential (primary) hypertension (I10) Active confirmed Problem Vitamin D deficiency (00540035) Vitamin D deficiency (E55.9) Active confirmed Problem Essential hypertension (96615066) Essential hypertension (I10) Active confirmed Problem Screening for malignant neoplasm of prostate (697909765) Prostate cancer screening (Z12.5) Active confirmed Problem Anorexia (25678556) Anorexia (R63.0) Active con firmed Problem Paroxysmal atrial fibrillation (871654858) Paroxysmal atrial fibrillation (I48.0) Active confirmed Problem Hyperglycemia due to type 2 diabetes mellitus (354301955347848) Type 2 diabetes mellitus with hyperglycemia (E11.65) Active confirmed Problem Mixed hyperlipidemia (802963257) Mixed hyperlipidemia (E78.2) Active confirmed Problem Hyperlipidemia (45441893) Hyperlipidemia, unspecified (E78.5) Active confirmed Problem Hereditary hemochromatosis (42303203) 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) Active confirmed Problem Chronic respiratory failure (88729824) Chronic respiratory failure with hypoxia (J96.11) Active confirmed Problem Autoimmune hepatitis (950409214) Autoimmune hepatitis (K75.4) Active confirmed Problem Cholelithiasis without obstruction (79898381) Calculus of gallbladder without cholecystitis without obstruction (K80.20) Active confirmed Problem Cochlear implant status (Z96.21) Active confirmed Problem Male erectile disorder (117282804) Male erectile disorder (N52.9) Active confirmed Problem Long-term current use of insulin (333365407) terminal worker (current) use of insulin (Z79.4) Active confirmed Problem Type II diabetes mellitus without complication (912794439) Type 2 diabetes mellitus without complication (E11.9) Active confirmed Problem Acquired hypothyroidism (459084148) Acquired hypothyroidism (E03.9) Active confirmed Problem Pulmonary fibrosis (76568462) Pulmonary fibrosis (J84.10) Active confirmed Problem Chronic fatigue syndrome (25225804) Chronic fatigue (R53.82) Active confirmed Problem COPD - Chronic obstructive pulmonary disease (15640147) Chronic obstructive pulmonary disease, unspecified COPD type (J44.9) Active confirmed Problem Pneumonia (539270483) Pneumonia of right lower lobe due to infectious organism (J18.9) Active confirmed Problem Hearing loss (73998739) Hearing loss, bilateral (H91.93) Active confirmed Problem Disorder of adrenal gland (53754871) 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) Active confirmed Problem Neutropenia (313803873) Neutropenia, unspecified type (D70.9) Active confirmed Problem Interstitial lung disease (095639046) Interstitial lung disease (J84.9) Active confirmed Problem Seasonal allergic rhinitis (693114400) Seasonal allergic rhinitis, unspecified allergic rhinitis trigger (J30.2) Active confirmed Problem Granulocytopenia (679123350) 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 confirmed Problem Systemic lupus erythematosus (63095326) Lupus (systemic lupus erythematosus) (M32.9) Active confirmed Problem Cardiac arrhythmia (160961337) Cardiac arrhythmia, unspecified cardiac arrhythmia type (I49.9) Active confirmed Problem Malnutrition, calorie (046860547) Caloric malnutrition (E46) Active confirmed Problem Benign prostatic hypertrophy without outflow obstruction (293096210) BPH without urinary obstruction (N40.0) Active confirmed Problem Allergic rhinitis caused by pollen (16302228) Acute seasonal allergic rhinitis due to pollen (J30.1) Active confirmed Problem Sensorineural hearing loss, bilateral (054480301) Sensorineural hearing loss (SNHL) of both ears (H90.3) Active confirmed Problem Cholestatic hepatitis (56228028) Cholestatic hepatitis (K75.89) Active confirmed Problem Skin sensation disturbance (43574167) Sensitive skin (R20.3) Active confirmed Problem Dilatation of aorta (07909019) Dilatation of aorta (I77.819) Active confirmed Problem Tomography - chest abnormal (024287925) Abnormal CT scan, chest (R93.89) Active confirmed Problem Left atrial dilatation (761823261) Left atrial dilatation (I51.7) Active confirmed Problem Chronic vascular insufficiency of intestine (106436260) 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 Problem Protein malnutrition (47218064) Protein malnutrition (E46) Active confirmed Vital Signs Heart Rate 105 /min 08/07/2025 Blood pressure diastolic 60 mm Hg 08/07/2025 Height 65 in 08/07/2025 Blood pressure systolic 102 mm Hg 08/07/2025 Weight 123.6 lbs 08/07/2025 BMI 20.57 kg/m2 08/07/2025 Encounters Encounter Location Date Provider [facility] [address] [id number] 09/05/2024 Shauna Almanzar Pneumonia of left lo wer lobe due to infectious organism J18.9 ; Interstitial lung disease J84.9 ; Chronic respiratory failure with hypoxia J96.11 ; 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 ; Autoimmune hepatitis K75.4 ; Protein malnutrition E46 and Caloric malnutrition E46 [facility] [address] [place] [id number] 09/16/2024 Trinity Medeiros Strep pharyngitis J0 2.0 and Oral candidiasis B37.0 [facility] [address], [place] [id number] 10/09/2024 Shauna Almanzar Lesion of adrenal gl and E27.9 ; Essential hypertension I10 ; Type 2 diabetes mellitus without complication E11.9 ; Acquired hypothyroidism E03.9 ; Hearing loss, bilateral H91.93 ; Cochlear implant status Z96.21 ; Protein malnutrition E46 ; Chronic obstructive pulmonary disease, unspecified COPD type J44.9 and Encounter for immunization Z23 [facility] [address] [place], [place] [id number] 11/03/2024 Emir Bowie Acute cough R05.1 [facility] [address] [place], [place] [id number] 11/07/2024 Shauna Almanzar Type 2 diabetes aquilino itus without complication E11.9 ; Acquired hypothyroidism E03.9 and Hereditary hemochromatosis E83.110 [facility] [address] [place] [id number] 01/09/2025 Shauna Almanzar Type 2 diabetes aquilino itus without complication E11.9 ; Hereditary hemochromatosis E83.110 ; Cochlear implant status Z96.21 ; Chronic obstructive pulmonary disease, unspecified COPD type J44.9 ; Essential (primary) hypertension I10 ; Protein malnutrition E46 and Gross hematuria R31.0 [facility] [address] [place], [place] [id number] 01/15/2025 Shauna Almanzar Interstitial lung disease J84.9 ; 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 ; Autoimmune hepatitis K75.4 ; Protein malnutrition E46 ; Cochlear implant status Z96.21 ; Type 2 diabetes mellitus without complication E11.9 and Hematuria R31.9 [facility] [address] [place], [place] [id number] 02/11/2025 Emir Bowie Type 2 diabetes aquilino itus with hyperglycemia E11.65 ; group home (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.4 ; Gross hematuria R31.0 and Body mass index (BMI) of 19.0 to 19.9 in adult Z68.1 [facility] [address] [place], [place] [id number] 03/13/2025 Doretha Burns Drug interaction Z78 .9 [facility] [address] [id number] 04/02/2025 Shauna Almanzar Type 2 diabetes aquilino itus without complication E11.9 ; 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 ; Cholestatic hepatitis K75.89 ; terminal worker (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.4 ; 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 ; Generalized weakness R53.1 and BMI 20.0-20.9, adult Z68.20 [facility] [address] [id number] 04/30/2025 Shauna Almanzar Type 2 diabetes aquilino itus with hyperglycemia E11.65 ; terminal worker (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.4 ; Adrenal [...] adult Z68.22 and Cochlear implant status Z96.21 [facility] [address] [id number] 06/09/2025 Emir Berger Generalized weakness R53.1 ; Anorexia R63.0 and Vitamin D deficiency E55.9 [facility] [address] [id number] 07/03/2025 Shauna Almanzar Hypokalemia E87.6 ; Essential hypertension I10 ; Chronic fatigue R53.82 ; Protein malnutrition E46 ; Type 2 diabetes mellitus with hyperglycemia E11.65 ; terminal worker (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.4 ; 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 ; 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 and BMI 21.0-21.9, adult Z68.21 [facility] [address] [id number] 08/07/2025 Shauna Almanzar Type 2 diabetes aquilino itus without complication E11.9 ; Acquired hypothyroidism E03.9 ; Hereditary hemochromatosis E83.110 ; Cochlear implant status Z96.21 ; Interstitial lung disease J84.9 ; group home (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.4 and 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 [facility] [address] [place], [place] [id number] 09/01/2024 J Rogerio Yohan [facility] [address] [place], [place] [id number] 09/04/2024 J Rogerio Yohan [facility] [address] [place], [place] [id number] 09/08/2024 J Rogerio Yohan [facility] [address] [place], [place] [id number] 09/10/2024 J Rogerio Yohan [facility] [address] [place], [place] [id number] 09/15/2024 J Rogerio Yohan [facility] [address] [place], [place] [id number] 09/16/2024 J Rogerio Yohan [facility] [address] [place], [place] [id number] 09/25/2024 J Rogerio Yohan [facility] [address] [place], [place] [id number] 11/03/2024 Emir Bowie [facility] [address] [place], [place] [id number] 01/12/2025 J Rogerio Yohan [facility] [address] [place], [place] [id number] 05/12/2025 J Rogerio Yohan [facility] [address] [place], [place] [id number] 05/12/2025 J Rogerio Yohan [facility] [address] [place], [place] [id number] 06/04/2025 J Rogerio Yohan [facility] [address] [place], [place] [id number] 06/10/2025 Emir Bowie [facility] [address] [place], [place] [id number] 06/10/2025 Shauna Almanzar [facility] [address] [place], [place] [id number] 06/23/2025 Shauna Almanzar Colon cancer screeni Z12.11 [facility] [address] [place], [place] [id number] 07/06/2025 Shauna Almanzar [facility] [address] [place], [place] [id number] 07/07/2025 Shauna Almanzar [facility] [address] [place], [place] [id number] 07/16/2025 Shauna Almanzar Assessments Encounter Date Diagnosis [...] to resume use of his CGM 02/11/2025 group home (current) use of insulin (ICD-10 [...] mellitus with hyperglycemia (ICD-10 - E11.65) 04/30/2025 group home (current) use of insulin (ICD-10 - Z79.4) 06/09/2025 Anorexia (ICD-10 - R63.0) Boost or Ensure 1 can bid 06/09/2025 Generalized weakness (ICD-10 - R53.1) 06/23/2025 Colon cancer screening (ICD-10 - Z12.11) 07/03/2025 Hypokalemia (ICD-10 - E87.6) 07/03/2025 Essential hypertension (ICD-10 - I10) 08/07/2025 Type 2 diabetes mellitus without complication (ICD-10 - E11.9) 08/07/2025 Acquired hypothyroidism (ICD-10 - E03.9) 07/03/2025 Chronic fatigue (ICD-10 - R53.82) 04/30/2025 Adrenal abnormality (ICD-10 - E27.9) 06/09/2025 [...] respiratory failure with hypoxia (ICD-10 - J96.11) 10/09/2024 Acquired hypothyroidism (ICD-10 - E03.9) 09/05/2024 Adrenal abnormality (ICD-10 - E27.9) 01/09/2025 Chronic obstructive pulmonary disease, unspecified COPD type (ICD-10 - J44.9) 01/15/2025 Protein malnutrition (ICD-10 - E46) 02/11/2025 Body mass index (BMI) of 19.0 to 19.9 in adult (ICD-10 - Z68.1) 04/30/2025 Interstitial lung disease (ICD-10 - J84.9) 04/02/2025 Cholestatic hepatitis (ICD-10 - K75.89) 07/03/2025 Protein malnutrition (ICD-10 - E46) 08/07/2025 Hereditary hemochromatosis (ICD-10 - E83.110) 08/07/2025 Cochlear implant status (ICD-10 - Z96.21) 07/03/2025 Type 2 diabetes mellitus with hyperglycemia (ICD-10 - E11.65) 04/30/2025 Essential (primary) hypertension (ICD-10 - I10) 04/02/2025 group home (current) use of insulin [...] mellitus without complication (ICD-10 - E11.9) 04/30/[address] scan, chest (ICD-10 - R93.89) 04/02/2025 Histoplasmosis (ICD-10 - B39.9) 07/03/2025 group home (current) use of insulin (ICD-10 - Z79.4) 08/07/2025 Interstitial lung disease (ICD-10 - J84.9) 08/07/2025 terminal worker (current) use of insulin (ICD-10 - Z79.4) 07/03/2025 Histoplasmosis (ICD-10 - B39.9) 04/30/2025 Calculus of gallbladder without cholecystitis without obstruction (ICD-10 - K80.20) 01/15/2025 Hematuria (ICD-10 - R31.9) 04/02/2025 Generalized weakness (ICD-10 - R53.1) 01/09/2025 Gross hematuria (ICD-10 - R31.0) 09/05/2024 Caloric malnutrition (ICD-10 - E46) 10/09/2024 Protein malnutrition (ICD-10 - E46) 10/09/2024 Chronic obstructive pulmonary disease, unspecified COPD type (ICD-10 - J44.9) 04/02/2025 BMI 20.0-20.9, adult (ICD-10 - Z68.20) 04/30/2025 Hereditary hemochromatosis (ICD-10 - E83.110) 07/03/2025 Adrenal abnormality (ICD-10 - E27.9) 08/07/2025 Adrenal abnormality (ICD-10 - E27.9) 07/03/2025 BMI [...] 11/07/2024 Next Appt Details Provider Name:Shauna Beatty [place], 11/12/2025 01:30:00 PM, [address], [place], [place], [id number], Insurance Providers Payer Name Payer Address Payer Phone Subscriber Number Group Number Insured Name Patient Relationship to Insured Coverage Start Date Coverage End Date [facility] [address] [address] [place] [id number] HERMILA GOLDEN Self - patient is the insured Medical (General) History Medical History History ICD Code Seasonal Allergies Kidney Stones Steatohepatitis hemachromatosis,(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 Smalls and Dr. Thakur Atrial dysrrhythmia, see notes 2012 hearing loss 2013, hearing aids Impaired fasting glucose Gets yearly eye exams, [facility] Questionable Dx Lupus erythematosus 2016 Granuloma [...]
[2025-08-21 13:38] LABS: PHA INR Fingerstick 2.7 (0.9-1.1)
== END 2025-08-21 13:47 ==
LOC: ACC 10:54
PROVIDERS: PCP Family Medicine; Visit Provider Nurse Practitioner
DX: I48.0 Paroxysmal atrial fibrillation (principal); Z79.01 Long term (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 of anticoagulants
CPT/HCPCS: 85610; 99211; G0463

== ENCOUNTER 2025-08-26 13:00 | Outpatient (CLI) | payer MEDICARE, SELFPAY ==
--- OUTSIDE RECORDS SUMMARY | 2025-07-07 11:40 | XMS_ITS | Encounter Summary ---
Author Organization [facility] Address [address] [place] [address] Care Team Providers Care Computer Instructor Name Role Phone Rocky Almanzar MD Primary Care Provider [phone] Reason for Referral * Consultation (Routine) - Authorized Specialty Diagnoses / Procedures Referred By Contac t Referred To Contact Diagnoses Type 2 diabetes mellitus with hyperglycemia, with long-term current use of insulin Hemochromatosis, unspecified hemochromatosis type Acquired hypothyroidism Histoplasmosis Angelica Allan DO [address] [address] Phone: tel: fax: Referral ID Status Reason Start Date Expiration Date V isits Requested Visits Authorized [id number] Authorized 07/07/2025 01/06/2027 1 1 Encounter Details Date Type Department Care Team (Late st Contact Info) Description 07/07/2025 11:40 AM EDT Office Visit [facility] Endocrinology [address] [place] [address] Angelica Allan DO [address] [facility] [address] [place] [address] Type 2 diabetes mellitus with [...] Spoke with pt about connecting [facility] CGM to [facility] Clinic. Pt does have ahmet on phone, but has not created profile or used a login to be able to share with [facility]. Provided pt with instructions on how [...] and decreased strength. He sees GI at [place]. He had been having glucoses >350. He [...] hyperglycemia, with long-term current use of insulin ([facility]) (Primary) - POCT glycosylated hemoglobin (Hb [...] care. Electronically signed by: Angelica Allan DO [facility] ENDOCRINOLOGY [address] [facility] [place]. [address] PHONE [phone] FAX: [phone] Post Visit Addendum: Labs reviewed. FLP noted [...] Description 01/05/2026 9:40 AM EST Office Visit [facility] Endocrinology [address] [place] [address] Angelica Allan DO [address] [place] [address] 01/05/2026 11:00 AM EST Office Visit [facility] [place] [address], [address] [place] [address] Vivian Macias S, OD [address] [place] [address] Scheduled Orders Name Type Priority Associated Diagnoses Orde r Schedule Cortisol Lab Routine Histoplasmosis Expected: 07/07/2025 (Approximate), Expires: 07/07/2026 ACTH Lab Routine Histoplasmosis Expected: 07/07/2025 (Approximate), Expires: 07/07/2026 Albumin-creatinine ratio, urine, random Lab Routine Type 2 diabetes mellitus with hyperglycemia, with long-term current use of insulin ([facility]) Expected: 07/07/2025 (Approximate), Expires: 07/07/2026 Lipid panel Lab Routine Type 2 diabetes mellitus with hyperglycemia, with long-term current use of insulin ([facility]) Expected: 07/07/2025 (Approximate), Expires: 07/07/2026 TSH Lab Routine Acquired hypothyroidism Expected: 07/07/2025 (Approximate), Expires: 07/07/2026 T4, free Lab Routine Acquired hypothyroidism Expected: 07/07/2025 (Approximate), Expires: 07/07/2026 Scheduled Referrals Name Type Priority Associated Diagnoses Orde r Schedule Follow Up [facility] Outpatient Referral Routine Type 2 diabetes mellitus with hyperglycemia, with long-term current use of insulin ([facility]) Hemochromatosis, unspecified hemochromatosis type Acquired hypothyroidism Histoplasmosis Expected: 01/04/2026, Expires: 01/08/2027 documented as of this encounter Procedures Procedure Name Priority Date/Time Associated Diagnosis Comments POCT GLYCOSYLATED HEMOGLOBIN (HGB A1C) Routine 07/07/2025 12:03 PM EDT Type 2 diabetes mellitus with hyperglycemia, with long-term current use of insulin ([facility]) documented in this encounter Results * CORTISOL, 60 (07/20/2025 2:40 PM EDT) Cortisol Time=60 21.00 Before 10am: 3.7 - 19.4. After 5pm: 2.9 - 17.3 ug/dL 07/20/2025 8:20 PM EDT [facility] Comment: Testing performed on [employer] Dispatcher, standardized against PRISON Reference Standard concentration values [...] Allan DO LAB BLOOD ORDERABLES Final Result [facility] [address] [place] [address] * Cortisol, 30 (07/20/2025 2:03 PM EDT) Cortisol,Time=30 18.30 Before 10am: 3.7 - 19.4. After 5pm: 2.9 - 17.3 ug/dL 07/20/2025 8:19 PM EDT [facility] Comment: Testing performed on [employer] Dispatcher, standardized against PRISON Reference Standard concentration values [...] BLOOD ORDERABLES Final Result Performing Organization Address [facility] Co de Phone Number [facility] [address] [place] [address] * (ABNORMAL) ACTH (07/20/2025 1:28 PM EDT) ACTH 68.2(H) 7.2 - 63 pg/mL 07/20/2025 5:38 PM EDT [facility] Blood Venous blood specimen / Unknown Venipuncture / Unknown 07/20/2025 1:28 PM EDT 07/20/2025 1:42 PM EDT Angelicalorena Allan DO LAB BLOOD ORDERABLES Final Result [facility] [address] [place] [address] * Cortisol, Time=0 (07/20/2025 1:28 PM EDT) Cortisol 8.20 Before 10am: 3.7 - 19.4. After 5pm: 2.9 - 17.3 ug/dL 07/20/2025 8:23 PM EDT [facility] Comment:Testing performed on [employer] Dispatcher, standardized against PRISON Reference Standard concentration values assigned by LC-MS/MS and verified by BCR 192 and BCR 193 certified reference materials. Blood Venous blood specimen / Unknown Venipuncture / Unknown 07/20/2025 1:28 PM EDT 07/20/2025 4:08 PM EDT us Angelica Allna DO LAB REF LAB BLOOD AND FLUID ORD Final Result Performing Organization Address City/[facility]/ZIP Co de Phone Number [facility] [address] [place] [address] * POCT glycosylated hemoglobin (Hb A1C) (07/07/2025 12:03 PM EDT) POCT Hemoglobin A1C 6.7 <5.7% Non-Diabet ic % [facility] Kit Lot Number [id number] [facility] Kit Expiration Date 04/2027 [facility] Blood Venous blood specimen / Unknown 07/07/2025 12:03 PM EDT us Angelica Allan DO POINT OF CARE TEST ENTER/ED IT ORDERABLES Edited Result - Final Performing Organization Address City/[facility] Co de Phone Number [facility] [address] [place] [address] documented in this encounter Visit Diagnoses Diagnosis [...] as of this encounter Care Teams Computer Instructor Relationship Specialty Start Date End Date Rocky Almanzar MD [address] [place] [address] PCP - General 03/18/21 documented as of this encounter
--- OUTSIDE RECORDS SUMMARY | 2025-07-17 14:00 | XMS_ITS | Encounter Summary ---
Author Organization [facility] Address [address] [place] [address] Care Team Providers Care Gun Mechanic Name Role Phone Rocky Almanzar MD Primary Care Provider [phone] Reason for Visit * Reason Comments Hearing Loss Encounter Details Date Type Department Care Team (Late st Contact Info) Description 07/17/2025 2:00 PM EDT Office Visit [facility] Audiology [address], [address] [place] [address] Lottie Lund, AuD [address] [place] [address] Sensorineural hearing loss (SNHL) of [...] it does not seem to heal well. 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: RE: Surgery Date: 06/14/2017-Revision 08/11/2015-Original Internal Device: [id number] Advantage/HiFocus 1J - [id number] Primary External Device: Lizabeth M90 Fit Date: 01/08/2025 Magnet strength: 2 Cord length: 3.5 Battery: Rechargeable Tyesha Exp: 01/08/2028 LE: Surgery Date: 04/07/2020 Internal Device: HiRes Nwqeb7M/HiFocus SlimJ - [id number] Primary External Device: Lizabeth Q90 Fit Date: [...] EST Office Visit [facility] [address] [place] [address] Melany Rosales DO [address] [place] [address] 01/05/2026 11:00 AM EST Office Visit [facility] [address] [place] [address] Vivian Macias S, OD [address] [place] [address] documented as of this encounter [...] documented as of this encounter Care Teams Gun Mechanic Relationship Specialty Start Date End Date Rocky Almanzar MD [address] [place] [address] PCP - General 03/18/21 documented as of this encounter
--- OUTSIDE RECORDS SUMMARY | 2025-07-20 13:30 | XMS_ITS | Encounter Summary ---
Author Organization [facility] Address [address] [place] [address] Care Team Providers Care Assistant Professor Of Criminal Justice Name Role Phone Rocky Almanzar MD Primary Care Provider [phone] Encounter Details Date Type Department Care Team (Late st Contact Info) Description 07/20/2025 1:30 PM EDT Clinical Support [facility] [address] [place] [address] Social History Tobacco Use Types [...] Visit [facility] [address] [place] [address] Melany Rosales DO [address] [place] [address] 01/05/2026 11:00 AM EST Office Visit [facility] [place] [address] [place] [address] Vivian Macias S, OD [address] [place] [address] documented as of this encounter [...] as of this encounter Care Teams Assistant Professor Of Criminal Justice Relationship Specialty Start Date End Date Rocky Almanzar MD [address] [place] [address] PCP - General 03/18/21 documented as of this encounter
--- OUTSIDE RECORDS SUMMARY | 2025-08-10 11:12 | XMS_ITS ---
Author Organization [facility] Address [address] [place] [address] [place] [address] Phone Care Team Providers Care Publications Manager Name Role Phone Sukumar CUEVAS, Rocky Griggs [ ] Conditions or Problems No information available. Medications Medication Instructions Start Date Stop Date Generic Name [facility] Provider warfarin warfarin Rocky Patino MD potassium citrate (replacement) 99 mg capsule potassium citrate [id number] Lulú Ciro Medications Administered No information available. Allergies, Adverse Reactions, Alerts No information available. Results Date Name Value Unit Range Flag Description Office Visit: Office Visit: 4 MEDS REVIEW Done Documenta tion of current medications (procedure) SMOK STATUS Former smoker Tob acco smoking status Plan of Care Type Date Detail Appointment 11:00 AM Rocky Patino MD, [facility], [address], [place], [address], Pending order CMP Pending order CBC with [...]
[2025-08-26 13:28] LABS: Hematocrit 34.4 % (42.0-52.0); Hemoglobin 10.3 g/dL (14.1-18.0); Immature Granulocytes % 0.9 %; Mean Corpuscular HGB Conc 29.9 g/dL (31.8-35.4); Mean Corpuscular Hemoglobin 23.3 pg (27.0-31.2); Mean Corpuscular Volume 77.8 fl (80-94); Nucleated Red Blood Cells % 0 %; Platelet Count 433 K/mm3 (142-424); Red Blood Count 4.42 M/mm3 (4.60-6.20); Red Cell Distribution Width-SD 47.2 fL; White Blood Count 4.7 K/mm3 (4.8-10.8)
--- NOTE | 2025-08-26 13:45 | CA_ITS ---
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 2D Dimensions Left Atrium 3.67 cm M: 3.0 - 4.0 LVEF (Loaiza's) 59.20 % M: 52 - 72 LVOT 1.90 cm (M/F) 1.5-2.5 LV Volume 77.40 mL M: 62 - 150 LV Volume Index 49.9 mL/m2 M: 34 - 74 LA Volume 29.90 mL LA Volume Index 19.29 mL/m2 (M/F) 16-34 EF AP4 56.20 % EF AP2 60.7 % EF BP 59.2 % GL Strain -20.8 % M-Mode Dimensions RVDd 2.82 cm (0.9-2.6) LVDd 4.31 cm (3.5-5.7) Ao Diam 2.87 cm (2.0-3.7) LVDs 3.22 cm (3.5-5.7) IVSd 0.72 cm (0.6-1.1) PWd 0.93 cm (0.6-1.1) EF (Teich) 50.20% FS 25.30% EDV (Teich) 83.50 mL ESV (Teich) 41.60 mL LV Diastology E Decel Time 208 (160-240 msec) E/A Ratio 1.1 MED E' 6.8 (>= 7 cm/sec) E'/MED E' Ratio 10.41 (<= 14) LAT E' 8.4 (>= 10 cm/sec) E/LAT E' Ratio 8.43 (<= 14) Aortic Valve LVOT Max 90.0 (70-110 cm/s) SB Index 1.63 cm2/m2 LVOT VTI 19.02 cm AoV Peak Jerald. 106.0 (50-130 cm/s) AO Mean GR. 2.20 (<5 mmHg) AO VTI 21.5 (18-25 cm) SB (VTI) 2.51 (2.5-4.5 cm2) Mitral Valve MV E Max Jerald. 71.0 (40-130 cm/s) MV A Velocity 63.0 (40-130 cm/s) E/A Ratio 1.13 MV Decel. Time 208 (160-240 ms) Left Ventricle The left ventricle is normal size. Left ventricular systolic function is normal. The left ventricular ejection fraction is within the normal range. There is increased left ventricular wall thickness. There is normal LV segmental wall motion. The left ventricular diastolic function is normal. LVEF is 55%. Right Ventricle The right ventricle is normal size. The right ventricular systolic function is normal. Atria The left atrium is mildly dilated. The right atrium is mildly dilated. There is no color Doppler evidence of interatrial shunt. Aortic Valve The aortic valve is There is no hemodynamically significant aortic valvular stenosis. No aortic regurgitation is present. Mitral Valve The mitral valve is normal in structure. No evidence of mitral valve stenosis. Mild mitral regurgitation is present. Tricuspid Valve The tricuspid valve leaflets are thin and pliable. Trace tricuspid regurgitation. There is insufficient TR jet to estimate RVSP. Pulmonic Valve The pulmonary valve is grossly normal in structure. Trace pulmonic valve regurgitation is present. Great Vessels The aortic root is normal in size. IVC is normal in size and collapses >50% with inspiration. Pericardium There is no pericardial effusion. Other Information Study Quality: Fair Conclusion Normal biventricular systolic function. Mild biatrial dilation. Mild MR. Electronically signed by : Krystle Coates MD 09/04/2025 23:39:54
--- OUTSIDE RECORDS SUMMARY | 2025-08-26 13:47 | XMS_ITS | Clinical Summary ---
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 921976627 (SNOMED CT) 01/14 Active 01/14 Rocky Patino MD Drug-induced immunodeficiency Leukopenia 18754534 (SNOMED CT) 01/14 Active 01/14 Rocky Patino MD Leukopenia 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 (SNOMED CT) 01/09 Active 01/09 Echo Mccurdy 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/09 Active 01/09 Echo Mccurdy Acute pulmonary histoplasmosis capsulati Medications Medication Instructions Start Date Stop Date Generic Name [facility] Provider warfarin warfarin Rocky Patino MD potassium citrate (replacement) 99 mg capsule potassium citrate 07105020435 Luz Tanner VORICONAZOLE 200 MG TABS Take 1 tablet by mouth once a day voriconazole 40974598683 Rocky Patino MD MINOCYCLINE HCL 100 MG CAPS 1 capsule by mouth twice a day Take one twice a day for three days then only take 1 once a day minocycline 38674729797 Rocky Patino MD budesonide 3 mg by mouth as needed as directed 06/15 budesonide Flavio Mack budesonide 3 mg by mouth as needed as directed 06/15 budesonide Hugh Angel EZETIMIBE 10 MG TABS 1 tablet by mouth once a day 04/17 ezetimibe 76937685592 eros Angel XARELTO 20 MG TABS 04/17 rivaroxaban 84302194611 [facility] Stanley PRAVASTATIN SODIUM 20 MG TABS 1 tablet by mouth once a day 04/17 pravastatin 76907503400 eros Angel aspirin 81 mg capsule 1 capsule by mouth once a day 04/17 aspirin [facility] Stanley ITRACONAZOLE 100 MG CAPS Take 2 capsule by mouth twice a day 04/14 itraconazole 89741036697 Anne Merlos ITRACONAZOLE 100 MG CAPS TAKE TWO CAPSULES BY MOUTH TWICE DAILY itraconazole 90594826035 Rocky aPtino MD IPRATROPIUM-ALBU TEROL 0.5-2.5 (3) MG/3ML SOLN 01/19 ipratropium-albut [place] 63110162212 Amrita Belin JARDIANCE 10 MG TABS 1 tablet by mouth once a day 01/19 empagliflozin 89566166011 Amrita Hope ITRACONAZOLE 100 MG CAPS Take 2 capsule by mouth twice a day 04/14 itraconazole 30427884406 Rocky Patino MD XARELTO 20 MG TABS 04/17 rivaroxaban 95641096917 [facility] aspirin 81 mg capsule 1 capsule by mouth once a day 04/17 aspirin Laiba Sonu budesonide 9 mg by mouth as needed as directed 04/17 budesonide Laiba Sonu VITAMIN D 25 MCG (1000 UT) TABS 1 tablet by mouth once a day cholecalciferol (vitamin d3) 76582925937 Laiba Sonu JARDIANCE 10 MG TABS 1 tablet by mouth once a day 01/19 empagliflozin 97255535671 Laiba Sonu EZETIMIBE 10 MG TABS 1 tablet by mouth once a day 04/17 ezetimibe 75683205531 Laiba Sonu insulin lispro protamine-lispro 100 unit/mL (75-25) subcutaneous susp insulin lispro protamin-lispro Laiba Sonu IPRATROPIUM-ALBU TEROL 0.5-2.5 (3) MG/3ML SOLN ipratropium-albut [place] 91015179010 Laiba Sonu LEVOTHYROXINE SODIUM 50 MCG TABS 1 tablet by mouth once a day levothyroxine 14906956445 Laiba Sonu METFORMIN HCL 500 MG TABS 1 tablet by mouth once a day metformin 58223898436 Laiba Sonu MIRTAZAPINE 15 MG TABS 1 tablet by mouth once a day mirtazapine 38859651879 Laiba Sonu MYCOPHENOLATE MOFETIL 500 MG TABS 1 tablet by mouth twice a day mycophenolate mofetil 10262170192 Laiba Sonu PRAVASTATIN SODIUM 20 MG TABS 1 tablet by mouth once a day 04/17 pravastatin 74702659517 Laiba Sonu URSODIOL 500 MG TABS 1 tablet by mouth twice a day ursodiol 81709662314 Laiba Sonu Medications Administered No information available. 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 FALLRSKASSES yes Fall ris k assessment Lab [...] Appointment 11:00 AM Rocky Patino MD, [address] [facility], [address], [place], [address], Pending order CMP Pending order CBC with [...] (G2211) G2211 Complex E&M visit add-on (G2211) CPT-70781 CMP [id number] CBC with Differential 2024 CPT-56497 BNP CPT-75571 Itraconazole Level 3 CPT-Cooral Continue oral antibiotics 29/04/13 G2211 Complex E&M visit add-on (G2211) CPT-Cooral Continue oral antibiotics 20 27/02/11 CPT-61566 CMP [id number] CBC with Differential 2024 CPT-31971 Itraconazole Level 1 CPT-99446 BNP CPT-elizabeth New Oral Antibiotic CPT-60710 CMP [id number] CBC with Differential 2024 CPT-31686 CD4 04270 Fungitell, serum (1-3) D-Glucan Assay 03/07/12 CPT-76893 Urine Culture & Sensitivity [id number], [id number] Urinalysis CPT-cf Fungal Culture & Sensitivity CPT-91974 BNP Vital Signs Date Name Value Unit [...]
--- OUTSIDE RECORDS SUMMARY | 2025-08-26 13:48 | XMS_ITS | Encounter Summary ---
Author Organization [facility] Address [address] [facility] [place] [address] Care Team Providers Care Licensed Tax Consultant Name Role Phone Rocky Almanzar MD Primary Care Provider [phone] Encounter Details Date Type Department Care Team (Late st Contact Info) Description 07/09/2025 Orders [facility] [address] [place] [address] Melany Rosales DO [address] [address] Social History Tobacco Use Types [...] Description 01/05/2026 9:40 AM EST Office Visit [facility] Endocrinology [address] [place] [address] Melany Rosales DO [address] [address] 01/05/2026 11:00 AM EST Office Visit [facility] [place] [address], [address] [place] [address] Vivian Macias S, OD [address] [place] [address] documented as of this encounter [...] as of this encounter Care Teams Licensed Tax Consultant Relationship Specialty Start Date End Date Rocky Almanzar MD [address] [place] [address] PCP - General 03/18/21 documented as of this encounter
--- OUTSIDE RECORDS SUMMARY | 2025-08-26 13:48 | XMS_ITS | Encounter Summary ---
Author Organization [facility] Address [address] [place] [address] Care Team Providers Care Manager Bakery Name Role Phone Rocky Almanzar MD Primary Care Provider [phone] Reason for Visit * Reason Comments Med Refill Encounter Details Date Type Department Care Team (Late Contact Info) Description 05/20/2021 Refill [facility] Endocrinology [address] [place] [address] Jason Romero MD [address] [address] Social History Tobacco Use Types [...] Description 01/05/2026 9:40 AM EST Office Visit [facility] Endocrinology [address] [place] [address] Melany Rosales, DO [address] [place] [address] 01/05/2026 11:00 AM EST Office Visit [facility] [place] [address], [address] [place] [address] Vivian Macias S, OD [address] [place] [address] documented as of this encounter Visit Diagnoses Not on filedocumented in this encounter Additional Health Concerns Infection Onset Date Last Indicated Resolved Time MRSA 03/30/2021 03/30/2021 documented as of this encounter Care Teams Manager Bakery Relationship Specialty Start Date End Date Rocky Almanzar MD [address] [place] [address] PCP - General 03/18/21 documented as of this encounter
--- OUTSIDE RECORDS SUMMARY | 2025-08-26 13:48 | XMS_ITS | Clinical Summary ---
Author Organization [facility] Address [address] [place] [address] Care Team Providers Care Dental Ceramist Assistant Name Role Phone Provider, No Known [...] 08/15/2016 AAA SCREEN ONCE Completed 12/07/2016 Insurance [facility] [employer] PPO Care Teams Dental Ceramist Assistant Relationship Specialty Start Date End Date Provider, No Known [facility] [place] [address] PCP - General 01/14/25
--- OUTSIDE RECORDS SUMMARY | 2025-08-26 13:48 | XMS_ITS | Encounter Summary ---
Author Organization [facility] Address [address] [place] [address] Care Team Providers Care Upholstery Tech Name Role Phone Rocky Almanzar MD Primary Care Provider [phone] Encounter Details Date Type Department Care Team [...] Description 01/05/2026 9:40 AM EST Office Visit [facility] Endocrinology [address] [place] [address] Melany Rosales, DO [address] [place] [address] 01/05/2026 11:00 AM EST Office Visit [facility] [employer] [address], [address] [place] [address] Vivian Macias S, OD [address] [place] [address] documented as of this encounter Visit Diagnoses [...] documented as of this encounter Care Teams Upholstery Tech Relationship Specialty Start Date End Date Rocky Almanzar MD [address] [place] [address] PCP - General 03/18/21 documented as of this encounter
--- OUTSIDE RECORDS SUMMARY | 2025-08-26 13:48 | XMS_ITS | Encounter Summary ---
Author Organization [facility] Address [address] [place] [address] Care Team Providers Care Monorail Operator Name Role Phone Rocky Almanzar MD Primary Care Provider [phone] Reason for Visit * Reason Comments Med Refill Encounter Details Date Type Department Care Team (Late st Contact Info) Description 06/30/2025 Refill [facility] Endocrinology [address] [place] [address] Jason Romero MD [address] [address] Social History Tobacco Use Types [...] Description 01/05/2026 9:40 AM EST Office Visit [facility] Endocrinology [address] [place] [address] Melany Rosales, DO [address] [place] [address] 01/05/2026 11:00 AM EST Office Visit [facility] [address] [place] [address] Vivian Macias S, OD [address] [place] [address] documented as of this encounter [...] documented as of this encounter Care Teams Monorail Operator Relationship Specialty Start Date End Date Rocky Almanzar MD [address] [place] [address] PCP - General 03/18/21 documented as of this encounter
--- OUTSIDE RECORDS SUMMARY | 2025-08-26 13:48 | XMS_ITS | Encounter Summary ---
Author Organization [facility] Address [address] [place] [place] [address] Care Team Providers Care Flat Grinder Operator Name Role Phone Rocky Almanzar MD Primary Care Provider [phone] Encounter Details Date Type Department Care Team (Late st Contact Info) Description 07/08/[address] [facility] [address] [place] [address] Melany Rosales DO [address] [address] Social History Tobacco Use Types [...] Description 01/05/2026 9:40 AM EST Office [facility] Endocr[facility]ology [address] [place] [address] Melany Rosales DO [address] [address] 01/05/2026 11:00 AM EST Office Visit [facility] [place] [address], [address] [place] [address] Vivian Macias S, OD [address] [place] [address] documented as of this encounter [...] documented as of this encounter Care Teams Flat Grinder Operator Relationship Specialty Start Date End Date Rocky Almanzar MD [address] [place] [address] PCP - General 03/18/21 documented as of this encounter
--- OUTSIDE RECORDS SUMMARY | 2025-08-26 13:48 | XMS_ITS | Encounter Summary ---
Author Organization [facility] Address [address] [place] [address] Care Team Providers Care Line Service Technician Name Role Phone Rocky Almanzar MD Primary Care Provider [phone] Encounter Details Date Type Department Care Team (Late st Contact Info) Description 07/20/2025 [facility] [address] [place] [address] Melany Rosales DO [address] [place] [address] Type 2 diabetes mellitus with hyperglycemia, with long-term current use of insulin ([facility]) (Primary Dx) Social History Tobacco Use Types [...] Description 01/05/2026 9:40 AM EST Office Visit [facility] Endocrinology [address] [place] [address] Melany Rosales DO 2[address] [facility] [address] [place] [address] 01/05/2026 11:00 AM EST Office Visit [facility] [place] [address], [address] [place] [address] Vivian Macias S, OD [address] [place] [address] documented as of this encounter [...] documented as of this encounter Care Teams Line Service Technician Relationship Specialty Start Date End Date Rocky Almanzar MD [address] [place] [address] PCP - General 03/18/21 documented as of this encounter
--- OUTSIDE RECORDS SUMMARY | 2025-08-26 13:48 | XMS_ITS | Encounter Summary ---
Author Organization [facility] Address [address] [place] [address] Care Team Providers Care Machine Packer Name Role Phone Rocky Almanzar MD Primary Care Provider [phone] Reason for Visit * Reason Comments Med Refill Encounter Details Date Type Department Care Team (Late Contact Info) Description 11/10/2021 Refill [facility] [address] [place] [address] Jason Romero MD [address] [address] Type 2 diabetes mellitus with other specified complication, with long-term current use of insulin ([facility]) Social History Tobacco Use Types Packs/Day [...] Visit [facility] [address] [place] [address] Melany Rosales DO [address] [place] [address] 01/05/2026 11:00 AM EST Office Visit [facility] [place] [address], [address] [place] [address] Vivian Macias S, OD [address] [facility] [address] [place] [address] documented as of this encounter [...] as of this encounter Care Teams Machine Packer Relationship Specialty Start Date End Date Rocky Almanzar MD [address] [place] [address] PCP - General 03/18/21 documented as of this encounter
--- OUTSIDE RECORDS SUMMARY | 2025-08-26 13:48 | XMS_ITS | Encounter Summary ---
Author Organization [facility] Address [address] [facility] [place] [address] Care Team Providers Care Overnight Associate Name Role Phone Rocky Almanzar MD Primary Care Provider [phone] Encounter Details Date Type Department Care Team (Late st Contact Info) Description 07/10/2025 [facility] [address] [place] [address] Melany Rosales DO [address] [address] Social History Tobacco Use Types [...] Description 01/05/2026 9:40 AM EST [facility] Endocrinology [address] [place] [address] Melany Rosales DO [address] [address] 01/05/2026 11:00 AM EST Office Visit [facility] [place] [address], [address] [place] [address] Vivian Macias S, OD [address] [place] [address] documented as of this encounter [...] documented as of this encounter Care Teams Overnight Associate Relationship Specialty Start Date End Date Rocky Almanzar MD [address] [place] [address] PCP - General 03/18/21 documented as of this encounter
--- OUTSIDE RECORDS SUMMARY | 2025-08-26 13:48 | XMS_ITS | Encounter Summary ---
Author Organization [facility] Address [address] [place] [address] Care Team Providers Care Photonics Engineer Name Role Phone Rocky Almanzar MD Primary Care Provider [phone] Encounter Details Date Type Department Care Team (Late st Contact Info) Description 07/09/2025 Results Follow-Up [facility] Endocrinology [address] [place] [address] Melany Rosales, 2195 [facility] [address] [place] [address] Social History Tobacco Use Types [...] Description 01/05/2026 9:40 AM EST Office Visit [facility] Endocrinology [address] [place] [address] Melany Rosales DO [address] [facility] [address] [place] [address] 01/05/2026 11:00 AM EST Office Visit [facility] [place] [address], [address] [place] [address] Vivian Macias S, OD [address] [place] [address] documented as of this encounter [...] documented as of this encounter Care Teams Photonics Engineer Relationship Specialty Start Date End Date Rocky Almanzar MD [address] [place] [address] PCP - General 03/18/21 documented as of this encounter
--- OUTSIDE RECORDS SUMMARY | 2025-08-26 13:49 | XMS_ITS | Encounter Summary ---
Author Organization [facility] Address [address] [place] [address] Care Team Providers Care Intelligence Intern Name Role Phone Rocky Almanzar MD Primary Care Provider [phone] Encounter Details Date Type Department Care Team [...] Description 01/05/2026 9:40 AM EST Office Visit [facility] Endocrinology [address] [place] [address] Melany Rosales, DO [address] [place] [address] 01/05/2026 11:00 AM EST Office Visit [facility] [place] [address] [place] [address] Vivian Macias S, OD [address] [place] [address] documented as of this encounter Visit Diagnoses [...] documented as of this encounter Care Teams Intelligence Intern Relationship Specialty Start Date End Date Rocky Almanzar MD [address] [place] [address] PCP - General 03/18/21 documented as of this encounter
--- OUTSIDE RECORDS SUMMARY | 2025-08-26 13:49 | XMS_ITS | Clinical Summary ---
Author Organization [facility] Address [address] [place] [address] Care Team Providers Care Translation Director Name Role Phone Rocky Almanzar MD [...] Description 07/20/2025 1:30 PM EDT Clinical [facility] [address] [place] [address] 07/20/2025 Orders Only [facility] [address] [place] [address] Melany Rosales, Type 2 diabetes mellitus with hyperglycemia, with long-term current use of insulin ([facility]) (Primary Dx) 07/20/2025 Travel 07/17/2025 2:00 PM EDT Office Visit [facility] Audiology [address] [place] [address] Lottie Lund AuD Sensorineural hearing loss (SNHL) of both ears 07/17/2025 Travel 07/10/2025 Orders Only [facility] [address] [place] [address] Melany Rosales, 07/09/2025 Orders Only [facility] [address] [place] [address] Melany Rosales, 07/09/2025 Results [facility] [address] [place] [address] Melany Rosales, 07/08/2025 Orders Only [facility] Endocrinology [address] [place] [address] Melany Rosales, 07/07/2025 11:40 AM EDT Office Visit [facility] Endocrinology [address] [place] [address] Melany Rosales, Type 2 diabetes mellitus with hyperglycemia, with long-term current use of insulin (CMS/HCC) (Primary Dx); Hemochromatosis, unspecified hemochromatosis type; Acquired hypothyroidism; Histoplasmosis; Elevation of adrenocorticotropic hormone (ACTH) 07/07/2025 Travel 06/30/2025 Refill [facility] Endocrinology [address] [place] [address] Jason Romero MD from Last 3 Months [...] Visit [facility] [address] [place] [address] Melany Rosales, DO [address] [place] [address] 01/05/2026 11:00 AM EST Office Visit [facility] [place] [address], [address] [place] [address] Vivian Macias S, OD [address] [place] [address] Health Maintenance Due Date Last Done Comments [facility]-Depression Screening 1950 [facility]-Medicare Annual Wellness (AWV) 1950 [facility]-/Child/Adol SDOH Screenings 1951 Diabetes: Dental Exam 1961 [facility]- SDOH Screenings 1969 [facility]-Adult SDOH Screenings 1969 [facility]-DTaP,Tdap,and Td Vaccines (1 - Tdap) 1970 [facility]-Zoster Vaccines (1 of 2) 1970 CT Colonography 1996 FIT-DNA 1996 FIT 1996 FOBT 1996 Sigmoidoscopy 1996 [facility]-Abdominal Aortic Aneurysm (AAA) Screening 2016 [id number] Vaccine (7 - Moderna risk season) 2025 [...] this topic Medical Devices Implanted Type Area Straight Truck Driver Device Identifier Shelf Expiration Date Model / Serial / Lot Roseline Stanleyk Advantage Ci Hifocus 1j Electrode--06/05 Implanted:06/05 by Ky Del Rio MD (Quantity not on file) Cochlear Left: Ear [employer] [id number] / [id number] / Description:Roseline StanleyK Advant age CI HiFocus 1J electrode--cochlear implant by Dr. Del Rio at [facility] on 06/21/2017, operative note in Epic. LEFT EAR. Roseline ULTRA 3D Cochlear implant REF: [id number] Serial number: [id number] Procedures Procedure Name Priority Date/Time Associated Diagnosis [...] long-term current use of insulin (CMS/[facility]) COLONOSCOPY 08/03/2017 HEPATITIS C ANTIBODY W/REFLEX TO HCV QUANT PCR Routine 08/15/2016 10:05 AM EDT from Last 3 Months or Most Recently Relevant to Health Maintenance Results * CORTISOL, 60 (07/20/2025 2:40 PM EDT) Cortisol Time=60 21.00 Before 10am: 3.7 - 19.4. After 5pm: 2.9 - 17.3 ug/dL 07/20/2025 8:20 PM EDT [facility] Comment: Testing performed on Robert Airflight Attendants Supervisor, standardized against LONG TERM Reference Standard concentration values assigned by LC-MS/MS [...] BLOOD ORDERABLES Final Result Performing Organization Address [facility] de Phone Number [facility] [address] [place] [address] * Cortisol, 30 (07/20/2025 2:03 PM EDT) Cortisol,Time=30 18.30 Before 10am: 3.7 - 19.4. After 5pm: 2.9 - 17.3 ug/dL 07/20/2025 8:19 PM EDT [facility] Comment: Testing performed on Bruin Brake Cables Airflight Attendants Supervisor, standardized against LONG TERM Reference Standard concentration values assigned by LC-MS/MS [...] BLOOD ORDERABLES Final Result Performing Organization Address [facility] [address]/[facility] de Phone Number [facility] [address] [place] [address] * (ABNORMAL) ACTH (07/20/2025 1:28 PM EDT) Only the most recent of2 resultswithin the time period is included. ACTH 68.2(H) 7.2 - 63 pg/mL 07/20/2025 5:38 PM EDT [facility] Blood Venous blood specimen / Unknown Venipuncture / Unknown 07/20/2025 1:28 PM EDT 07/20/2025 1:42 PM EDT Melany Rosales DO LAB BLOOD ORDERABLES Final Result Performing Organization Address [facility] [address]/[facility] Co de Phone Number [facility] [address] [place] [address] * Cortisol, Time=0 (07/20/2025 1:28 PM EDT) Only the most recent of2 resultswithin the time period is included. Pathologist [facility] Cortisol 8.20 Before 10am: 3.7 - 19.4. After 5pm: 2.9 - 17.3 ug/dL 07/20/2025 8:23 PM EDT [facility] Comment:Testing performed on Bruin Brake Cables Airflight Attendants Supervisor, standardized against LONG TERM Reference Standard concentration values assigned by LC-MS/MS and verified by BCR 192 and BCR 193 certified reference materials. Blood Venous blood specimen / Unknown Venipuncture / Unknown 07/20/2025 1:28 PM EDT 07/20/2025 4:08 PM EDT us Melany Rosales DO LAB REF LAB BLOOD AND FLUID ORD Final Result Performing Organization Address City/[facility] [address]/ZIP Co de Phone Number [facility] [address] [place] [address] * HM Lipid Panel (07/08/2025 3:03 PM EDT) us Melany Rosales DO HEALTH MAINTENANCE Final Re sult * Free T4, Plasma (07/08/2025 3:00 PM EDT) Blood Venous blood specimen / Unknown us Melany Rosales DO LAB BLOOD ORDERABLES Final Result * POCT glycosylated hemoglobin (Hb A1C) (07/07/2025 12:03 PM EDT) Pathologist [facility] POCT Hemoglobin A1C 6.7 <5.7% Non-Diabet ic % [facility] Kit Lot Number [id number] [facility] Kit Expiration Date 04/2027 [facility] Blood Venous blood specimen / Unknown 07/07/2025 12:03 PM EDT Melany Rosales DO POINT OF CARE TEST ENTER/ED IT ORDERABLES Edited Result - Final [facility] [address] [place] [address] * COLONOSCOPY (08/03/2017) Anatomical Region Laterality Modality [...] Last Indicated MRSA 03/30/2021 03/30/2021 Insurance [facility] MEDICARE [facility] Care Teams Translation Director Relationship Specialty Start Date End Date Rocky Almanzar MD [address] [place] [address] PCP - General 03/18/21
--- OUTSIDE RECORDS SUMMARY | 2025-08-26 13:49 | XMS_ITS | Encounter Summary ---
Author Organization [facility] Address [address] [place] [address] Care Team Providers Care Enrollment Management Director Name Role Phone Rocky Almanzar MD Primary Care Provider [phone] Encounter Details Date Type Department Care Team [...] Description 01/05/2026 9:40 AM EST Office Visit [facility] Endocrinology [address] [place] [address] Melany Rosales, DO [address] [place] [address] 01/05/2026 11:00 AM EST Office Visit [facility] [place] [address] [place] [address] Vivian Macias S, OD [address] [place] [address] documented as of this encounter Visit Diagnoses [...] [address] [place] [address] PCP - General 03/18/21 documented as of this encounter
[2025-08-26 15:37] LABS: Anisocytosis 1+; Macrocytosis 1+; Microcytosis 1+; Ovalocytes 1+; Poikilocytosis 1+; Target Cells 1+; Tear Drop Cells 1+; Total Cells Counted 100
[2025-08-26 15:38] LABS: Spherocytes 1+
[2025-08-26 15:39] LABS: Giant Platelets 1+; Polychromasia 1+
[2025-08-26 15:58] LABS: Albumin Level 3.5 g/dl (3.5-5.0); Albumin/Globulin Ratio 1.3 (1.1-1.8); Anion Gap 14.2 mEq/L (5-15); Blood Urea Nitrogen 31 mg/dl (9-20); Calcium 9.2 mg/dl (8.4-10.2); Carbon Dioxide 22 mmol/L (22.0-30.0); Chloride 108 mmol/L (98-107); Creatinine,Serum 1.10 mg/dl (0.66-1.25); Estimated Glomerular Filt Rate 65 ml/min (>60); GFR (African American) 79 ML/MIN (>60); Globulin 2.7 g/dL (1.3-3.2); Potassium 4.2 mmoL/L (3.5-5.1); Sodium 140 mmol/L (136-145); Total Protein,Serum 6.2 g/dl (6.3-8.2)
[2025-08-26 15:59] LABS: Alanine Aminotransferase 16 U/L (12-78); Alkaline Phosphatase 228 U/L (38-126); Aspartate Amino Transferase 18 U/L (17-59); Bilirubin,Total 0.4 mg/dl (0.2-1.3)
[2025-08-26 16:31] LABS: Glucose 431 mg/dl (74-100)
== END 2025-08-26 23:59 | disposition home or self-care (01) ==
LOC: RT 13:03
PROVIDERS: Internal Medicine Infectious Disease; Internal Medicine Medical Oncology; PCP Family Medicine; Visit Provider Internal Medicine
DX: I08.8 Other rheumatic multiple valve diseases (principal); I51.7 Cardiomegaly; I51.3 Intracardiac thrombosis, not elsewhere classified; D72.819 Decreased white blood cell count, unspecified; I48.91 Unspecified atrial fibrillation; J84.10 Pulmonary fibrosis, unspecified; I74.11 Embolism and thrombosis of thoracic aorta
CPT/HCPCS: 36415; 80053; 80285; 85007; 85025; 85027; 93306

== ENCOUNTER 2025-09-04 10:47 | Outpatient (CLI) | payer MEDICARE, SELFPAY ==
--- OUTSIDE RECORDS SUMMARY | 2025-01-09 07:45 | XMS_ITS ---
Author Organization [facility] Address 1210 [facility] [address] [phone] Care Team Providers Care Production Hand Name Role Phone Shauna Almanzar Primary Care Provider [phone] Allergies Allergen (clinical drug ingredient) Drug/Non Drug [...] 276 100 - 400 P-Comprehensive Metabolic Pa tarha (CMP) Reviewed date:01/12/2025 11:34:53 AM Interpretation:gluc 144, bun 30, Cr 1.35, gfr 55, alk phos 229 Performing Lab: Notes/Report: Test performed by [email or web address] [facility] [address] [facility] , [address], [place] [address] Kristian Trevino MD, Human Resources Designate CLIA: [id number] Sodium 138 135-145 mmol/L Potassium 4.3 3.5-5.3 [...] DAY AT BEDTIME; Duration: 30 Active Nystatin 081350 UNIT/ML 5 ml Mouth/Throa t Twice a [...] Encounter Location Date Provider Diagnosis [facility] 1210 [facility] 36 [facility] [address] [place], [place] [phone] 01/09/2025 Shauna Almanzar Type 2 diabetes aquilino [...] Provider Name:Shauna fofana, 11/12/2025 01:30:00 PM, 1210 [facility] 36 [facility], [address], [place], [phone], Progress Notes * HERMILA GOLDEN: [birth year] (75 yo M)Acc No.[id number]:01/09/2025 Progress Notes Patient: HERMILA BUCIO Provider: Shauna Almanzar M.D. :1950 A ge:74 Y S ex:Male Date:01/09/2025 Address:[address] [place] [address] [address], [facility] Subjective: * Chief Complaints: * 1 . [...] glucose, Gets yearly eye exams, 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, [place] user name and password for portal: [email or web address], type 2 diabetes, followed at [facility], 06/05/2019 CT: healing of R lung [...] orally once a day , Taking Nystatin 980265 UNIT/ML Suspension 5 ml Mouth/Throat Twice a [...] :25 PM >no auth required; CPT code 78533; faxed to [facility] Anel Magallanes 04/20/2025 10:24:55 AM EDT >pt denied ultrasound * Procedure Codes: G 2211 Complex e/[place], [address] [place], [address] Urinalysis, no micro, [address]138 CBC WITH AUTO DIFF, 60991 VENIPUNCT, ROUTINE*, G8752 MOST RECENT SYSTOLIC BP < 140MM HG, G8754 MOST RECENT DIASTOLIC BP < 90MM HG * Follow Up: 1 Week * Images: Billing Information: * Visit Code: 20620 Office Visit, Est Pt., Level 4. * Procedure Codes: G2211 Complex e/[place]. [address] [place]. [address] Urinalysis, no micro. 58337 CBC WITH AUTO DIFF. 15311 VENIPUNCT, ROUTINE*. G8752 MOST RECENT SYSTOLIC BP < 140MM HG. G8754 MOST RECENT DIASTOLIC BP < 90MM HG. * Electronic signature of Shauna Almanzar MD on 09/04/2025 at 10:50 AM EDT Sign off status: Pending * Provider: Shauna Almanzar M.D. Date: 0 01/09/2025 Generated for Printi ng/Faxing/eTransmitting on: 1 10:50 AM EDT History and Physical Notes * [...]
--- OUTSIDE RECORDS SUMMARY | 2025-01-15 11:00 | XMS_ITS ---
Author Organization [facility] Address [address] [phone] Care Team Providers Care Licensed Pesticide Applicator Name Role Phone Shauna Almanzar Primary Care Provider [phone] Allergies Allergen (clinical drug ingredient) Drug/Non Drug [...] MOUTH EVERY DAY; Duration: 30 Active Nystatin 344253 UNIT/ML 5 ml Mouth/Throa t Twice a [...] Location Date Provider Diagnosis MED-Sasha 1210 [facility] 36 [facility] [address] [place], [place] [id number] 01/15/2025 Shauna Almanzar Interstitial lung disease J84.9 [...] Name:Shauna fofana, 11/12/2025 01:30:00 PM, [address], [address], [place], [place], [id number], Progress Notes * HERMILA GOLDENOB: [birth year] (75 yo M)Acc No.[id number]:01/15/2025 Progress Notes Patient: HERMILA BUCIO Provider: Shauna Almanzar M.D. :1950 A ge:74 Y S ex:Male Date:01/15/2025 Address:[address] [place] [address] [address], [facility] Subjective: * Chief Complaints: * 1 . 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 * Procedure Codes: G2211 Complex e/[place]. [address] [place]. [address] Urinalysis, no micro. G8752 MOST RECENT SYSTOLIC BP < 140MM HG. G8754 MOST RECENT DIASTOLIC BP < 90MM HG. * Electronic signature of Shauna Almanzar MD on 09/04/2025 at 10:51 AM EDT Sign off status: Pending * Provider: Shauna Almanzar M.D. Date: 0 01/15/2025 Generated for Collinsi ng/Fadavidg/eTransmitting on: 1 10:51 AM EDT History and Physical Notes * [...]
--- OUTSIDE RECORDS SUMMARY | 2025-02-11 10:00 | XMS_ITS ---
Author Organization [facility] Address 1210 [facility] [address] [id number] Care Team Providers Care Supervisor Engine Repair Name Role Phone Shauna Almanzar Primary Care Provider Emir Berger Unavailable [phone] Allergies Allergen (clinical drug ingredient) Drug/Non Drug [...] Hyperglycemia due to type 2 diabetes mellitus (188639784257833) Type 2 diabetes mellitus with hyperglycemia (E11.65) Active confirmed Problem Long-term current use of insulin (080274283) USP (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 (Z79.4) Active confirmed Vital Signs Blood pressure systolic 110 mm Hg 02/12/20 25 Blood pressure diastolic 62 mm Hg 025 Heart Rate 100 /min 02/11/2025 Height 65 in 02/11/2025 Weight 117.4 lbs 02/11/2025 BMI 19.53 kg/m2 02/11/2025 Encounters Encounter Location Date Provider Diagnosis [facility] [address] [facility] [address] [place] [address], [place] [id number] 02/11/2025 Emir Berger Type 2 diabetes aquilino itus with hyperglycemia E11.65 ; USP (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.4 ; Gross hematuria R31.0 and Body mass index (BMI) of 19.0 to 19.9 in adult Z68.1 Assessments Encounter Date Diagnosis (ICD Code) Assessment Notes Treatment Notes Treatment Clinical Notes Section Notes 02/11/2025 Type 2 diabetes mellitus with hyperglycemia (ICD-10 - E11.65) Patient needs to resume use of his CGM 02/11/2025 USP (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 (ICD-10 - Z79.4) [...] Name:Shauna Merida er, 11/12/2025 01:30:00 PM, 1210 [facility] [address], [address], [place], [place], [id number], Progress Notes * HERMILA GOLDENOB: [birth year] (75 yo M)Acc No.[id number]:02/11/2025 Progress Notes Patient: HERMILA BUCIO Provider: Jaden Berger M.D. :1950 A ge:74 Y S ex:Male Date:02/11/2025 Address:[address] [place] [address] [address] , [facility] Pcp:Shauna Almanzar Subjective: * Chief Complaints: * [...] Impaired fasting glucose, Gets yearly eye exams, [facility], Questionable Dx Lupus erythematosus 2016, Granuloma annulare [...] Three times a day , Discontinued Nystatin 559452 UNIT/ML Suspension 5 ml Mouth/Throat Twice a [...] * Images: Billing Information: * Visit Code: 04037 Office Visit, Est Pt., Level 4. * Procedure Codes: G2211 Complex e/m visit add on. G8752 MOST RECENT SYSTOLIC BP < 140MM HG. G8754 MOST RECENT DIASTOLIC BP < 90MM HG. * Electronic signature of Elidia Berger MD on 09/04/2025 at 10:51 AM EDT Sign off status: Pending * Provider: Jaden Berger M.D. Date: 0 02/11/2025 Generated for Marissa mendoza/Rei/Johnsmitting on: 1 10:51 AM EDT History and [...]
--- OUTSIDE RECORDS SUMMARY | 2025-03-13 10:15 | XMS_ITS ---
Author Organization [facility] 1210 [facility] [address] [phone] Care Team Providers Care Hot Mill Tin Roller Name Role Phone Shauna Almanzar Primary Care Provider [phone] Doretha Burns Unavailable [phone] Allergies Allergen (clinical drug ingredient) Drug/Non Drug Allergy documented on EMR Reaction Allergy Type Onset Date Status cephalexin Cephalexin Unknown Drug Allergy Activ e REASON FOR VISIT face is swollen per Alyssa at [facility], possible interaction with budesonide and itraconazole Medications Medication SIG (Take, Route, Frequency, Duration) Notes Start Date End Date Status Budesonide 3 MG 3 capsules Orally at bedtime Active metFORMIN HCl 500 MG 1 tablet with a iogr l Orally Twice a day Active Cholecalciferol [...] 03/13/2025 Encounters Encounter Location Date Provider Diagnosis [facility] [facility] [facility] [address] [facility] [address] [place] [id number] 03/13/2025 Doretha Burns Drug interaction Z78 .9 [...] 11/12/2025 01:30:00 PM, [address] [facility], [address], [place], [id number], Progress Notes * HERMILA GOLDENOB: [birth year] (75 yo M)Acc No.[id number]:03/13/2025 Progress Notes Patient: Daniele SALAS HERMILA WALDROP Provider: LUCIA Davis :1950 A ge:74 Y S ex:Male Date:03/13/2025 Address:[address] [place], [place] [address] [address], [facility], [facility] Pcp:Shauna Almanzar Subjective: * Chief Complaints: * 1 . face is swollen per Alyssa at [facility], possible interaction with budesonide and itraconazole. 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 * Procedure Codes: G2211 Complex e/m visit add on. * Electronic signature of LUCIA Dean on 09/04/2025 at 10:50 AM EDT Sign off status: Pending * Provider: LUCIA Davis Date: 0 03/13/2025 Generated for Marissa mendoza/Rei/Khurramitting on: 1 10:50 AM EDT History and [...]
--- OUTSIDE RECORDS SUMMARY | 2025-04-02 10:15 | XMS_ITS ---
Author Organization [facility] Address 1210 [facility] [address] [id number] Care Team Providers Care Case Picker Name Role Phone Shauna Almanzar Primary Care Provider [phone] Allergies Allergen (clinical drug ingredient) Drug/Non Drug [...] 5.5 Performing Lab: Notes/Report: Test performed by [employer] [facility]0 [facility] , [address], [place] [address] Kristian Trevino MD, Hammer Driver CLIA: [id number] Sodium 139 135-145 mmol/L Potassium 3.7 3.5-5.3 [...] 695 Performing Lab: Notes/Report: Test performed by [employer] [address] [place] [address] , [address], [place] [address] Kristian Trevino MD, Hammer Driver CLIA: [id number] Albumin/Creatinine Ratio, Urine 695 0-30 ug/m g [...] Grigsby 05/18/2025 02:47:51 PM > faxed to 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 ; Generalized weakness R53.1 and BMI 20.0-20.9, adult Z68.20 Assessments Encounter Date Diagnosis (ICD Code) Assessment Notes Treatment Notes Treatment Clinical Notes Section Notes 04/02/2025 Type 2 diabetes mellitus without complication (ICD-10 - E11.9) 04/02/2025 Adrenal abnormality (ICD-10 - E27.9) 04/02/2025 Cholestatic hepatitis (ICD-10 - K75.89) 04/02/2025 brazing machine feeder (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 (ICD-10 - Z79.4) [...] Name:Shauna Merida er, 11/12/2025 01:30:00 PM, 1210 [facility] 36 [facility], [address], [place], [place], [phone], Progress Notes * HERMILA GOLDENOB: [birth year] (75 yo M)Acc No.[id number]:04/02/2025 Progress Notes Patient: HERMILA BUCIO Provider: Shauna Almanzar M.D. :1950 A ge:75 Y S ex:Male Date:04/02/2025 Address:[address] [place] [address] 32 , [facility] Subjective: * Chief Complaints: * 1 . 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 B [place] 20.0-20.9, adult - Z68.20? Plan: * Treatment: [...] G 2211 Complex e/[place], [address] GLYCATED HEMOGLOBIN TEST, Modifiers: QW , G8752 [...] * Images: Billing Information: * Visit Code: 08776 Office Visit, Est Pt., Level 4. * Procedure Codes: G2211 Complex e/[place]. [address] GLYCATED HEMOGLOBIN TEST. Modifiers: QW G8752 MOST [...] 04/02/2025 Generated for Marissa mendoza/Rei/eTransmitting on: 1 10:51 AM EDT History and [...]
--- OUTSIDE RECORDS SUMMARY | 2025-04-30 10:00 | XMS_ITS ---
Author Organization [facility] Address 1210 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) Referral Organization [facility] Referring Provider First Name Shauna [...] W/U Status Risk Notes Problem Cardiac arrhythmia (385174565) Cardiac arrhythmia, unspecified cardiac arrhythmia type (I49.9) Active confirmed Problem Chronic vascular insufficiency of intestine (956991753) 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 Vital Signs Blood pressure systolic 130 mm Hg 04/30/20 25 Blood pressure diastolic 62 mm Hg 025 Heart Rate 85 /min 04/30/2025 Height 65 in 04/30/2025 Weight 133.8 lbs 04/30/2025 BMI 22.26 kg/m2 04/30/2025 Encounters Encounter Location Date Provider Diagnosis [facility] [address] [phone] 04/30/2025 Shauna Almanzar Type 2 diabetes aquilino itus with hyperglycemia E11.65 ; [facility] (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.4 ; Adrenal [...] mellitus with hyperglycemia (ICD-10 - E11.65) 04/30/2025 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 36 [facility], [address] , [place], [place], [address], Progress Notes * HERMILA GOLDENOB: [birth year] (75 yo M)Acc No.[id number]:04/30/2025 Progress Notes Patient: Daniele CEDRICKRAJIVHERMILA Provider: Shauan Almanzar M.D. :1950 A ge:75 Y S ex:Male Date:04/30/2025 Address:[address] [facility] 32 , [facility] Subjective: * Chief Complaints: * 1 . [...] Impaired fasting glucose, Gets yearly eye exams, [facility], Questionable Dx Lupus erythematosus 2015, [...] artery stenosis - K55.1 1 2. B [place] 22.0-22.9, adult - Z68.22 1 3. C [...] * Images: Billing Information: * Visit Code: 36253 Office Visit, Est Pt., Level 4. * [...] M.D. Date: 0 04/30/2025 Generated for Collinsi kelly/Rei/eTransmitting on: 1 10:51 AM EDT History and [...]
--- OUTSIDE RECORDS SUMMARY | 2025-06-09 06:00 | XMS_ITS ---
Author Organization [facility] Address 1210 [facility] 36 [facility] [address] [place] [id number] Care Team Providers Care Lab Nurse Name Role Phone Shauna Almanzar Primary Care Provider [phone] Emir Berger Unavailable [phone] Allergies Allergen (clinical drug ingredient) Drug/Non Drug [...] 232 Performing Lab: Notes/Report: Test performed by [employer] [address] [place] [address] , [address], [place] [address] Kristian Trevino MD, Skin Therapist CLIA: [id number] Sodium 141 135-145 mmol/L Potassium 3.0 3.5-5.3 [...] Interpretation:23 Performing Lab: Notes/Report: Test performed by [employer] [address] [facility], [place] [address] Kristian Trevino MD, Skin Therapist CLIA: [id number] Creatine Kinase 23 20-200 U/L D-Y-Ipbcfqpb Protein (CRP) Reviewed date:06/10/2025 08:30:05 AM Interpretation:4.00 Performing Lab: Notes/Report: Test performed by [employer] [address] [place] , [place] [address] Kristian Trevino MD, Skin Therapist CLIA: [id number] C-Reactive Protein (CRP) 4.00 <0.50 mg/dL P-Sed Rate (ESR) Reviewed date:06/10/2025 08:30:05 AM Interpretation:31 Performing Lab: Notes/Report: Test performed by [employer] [address] [facility], [place] [id number] Kristian Trevino MD, Skin Therapist CLIA: [id number] Erythrocyte Sedimentation Ra te (ESR), Automated 31 <21 mm/hr P-TSH reflex to FT4 Reviewed date:06/10/2025 08:30:05 AM Interpretation:Normal Performing Lab: Notes/Report: Test performed by [employer] [address] [place] [address] , [address], [place] [address] Kristian Trevino MD, Skin Therapist CLIA: [id number] TSH reflex to FT4 3.44 0.43-5.25 mU/L P-Vitamin D 25-Hydroxy Reviewed date:06/10/2025 08:30:05 AM Interpretation:Normal Performing Lab: Notes/Report: Test performed by [employer] [address] [place] [address] , [address], [place] [address] Kristian Trevino MD, Skin Therapist CLIA: [id number] Vitamin D 25-Hydroxy 57.8 30.0-100.0 ng/mL Interpretation [...] Duration: 90 days Active FreeStyle Leroy 3 [place] - as directed 05/12/2025 Not-Taking Levothyroxine Sodium [...] Status W/U Status Risk Notes Problem Anorexia (65632377) Anorexia (R63.0) Active confirmed Vital Signs Blood pressure systolic 112 mm Hg 06/09/20 25 Blood pressure diastolic 68 mm Hg 025 Heart Rate 64 /min 06/09/2025 Height 65 in 06/09/2025 Weight 130 lbs 06/09/2025 BMI 21.63 kg/m2 06/09/2025 Encounters Encounter Location Date Provider Diagnosis [facility] [address] [place] [address] 36 [facility] [address] LEI aBez [id number] 06/09/2025 Emir Berger Generalized weakness R53.1 ; [...] Merida er, 11/12/2025 01:30:00 PM, 1210 [facility] 36 [facility], [address], [place]ae[place], [id number], Progress Notes * HERMILA GOLDENOB: [birth year] (75 yo M)Acc No.[id number]:06/09/2025 Progress Notes Patient: HERMILA BUCION Provider: Jaden Berger M.D. :1950 A ge:75 Y S ex:Male Date:06/09/2025 Address:[address] [place] [address], [facility] Pcp:Shauna Almanzar Subjective: * Chief Complaints: * [...] glucose, Gets yearly eye exams, 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, user name and password for portal: [email or web address]...[email or web address], type 2 diabetes, followed at [facility], 06/05/2019 CT: healing of R lung [...] mouth daily , Not-Taking FreeStyle Leroy 3 [place] - Device as directed , Not-Taking FreeStyle [...] AM EDT > See phone encounter ?LAB: L-P-Sgzglake Protein (CRP) (Collection Date & Time - [...] G 2211 Complex e/[place], [address] CBC WITH AUTO DIFF, 1036F TOBACCO NON-USER, G8783 BP SCR PRFRM RCMDD DEFIND SCR INTVL, G8752 MOST RECENT SYSTOLIC BP < 140MM HG, G8754 MOST RECENT DIASTOLIC BP < 90MM HG * Follow Up: v ia phone to report test results * Images: Billing Information: * Visit Code: 03008 Office Visit, Est Pt., Level 4. * Procedure Codes: G2211 Complex e/[place]. [address] CBC WITH AUTO DIFF. 1036F TOBACCO NON-USER. G8783 BP SCR PRFRM RCMDD DEFIND SCR INTVL. G8752 MOST RECENT SYSTOLIC BP < 140MM HG. G8754 MOST RECENT DIASTOLIC BP < 90MM HG. * Electronic signature of Elidia Berger MD on 09/04/2025 at 10:52 AM EDT Sign off status: Pending * Provider: Jaden Berger M.D. Date: 0 06/09/2025 Generated for Marissa mendoza/Rei/Johnsmitting on: 10:52 AM EDT History and Physical Notes [...]
--- OUTSIDE RECORDS SUMMARY | 2025-07-03 07:45 | XMS_ITS ---
Author Organization [facility] Address 1210 [facility] [address] [phone] Care Team Providers Care Web Systems Developer Name Role Phone Shauna Almanzar Primary [...] 175 Performing Lab: Notes/Report: Test performed by [facility]0 [facility] , [address], [place] [address] Kristian Trevino MD, Drapery Hanger CLIA: [id number] Sodium 140 135-145 mmol/L Potassium 4.1 3.5-5.3 mmol/L Chloride 105 97-108 mmol/L CO2 22 20-32 mmol/L Glucose 175 65-99 mg/dL BUN 12 8-23 mg/dL Creatinine 1.26 0.70-1.30 mg/dL Calcium 9.4 8.6-10.4 mg/dL eGFR by Creatinine 60 >59 mL/min/1.73m2 P-Cortisol, Random Reviewed date:07/07/2025 10:18:42 AM Interpretation: Normal Performing Lab: Notes/Report: Test performed by [employer] [address] [place] [address] , [address], [place] [address] Kristian Trevino MD, Drapery Hanger CLIA: [id number] Cortisol, Random 7.7 CORTISOL REFERENCE RANGE AM Serum: 6.0-18.4 ug/dL PM Serum: 2.7-10.5 ug/dL P-Iron Reviewed date:07/07/2025 10:18:42 AM Interpretation:28 Performing Lab: Notes/Report: Test performed by [employer] [address] [place] [address] , [address], [place] [address] Kristian Trevino MD, Drapery Hanger CLIA: [id number] Iron 28 59-158 ug/dL P-TSH Reviewed date:07/07/2025 10:18:42 AM Interpretation:6.42 Performing Lab: Notes/Report: Test performed by [employer] [address] [place] [address] , [address], [place] [address] Kristian Trevino MD, Drapery Hanger CLIA: [id number] TSH 6.42 0.43-5.25 mU/L REASON FOR VISIT [...] Duration: 90 days Active FreeStyle Leroy 3 [place] - as directed 05/12/2025 Not-Taking Mirtazapine 15 [...] 07/03/2025 Encounters Encounter Location Date Provider [facility] [address] [id number] 07/03/2025 Shauna Almanzar Hypokalemia E87.6 ; Essential hypertension I10 ; Chronic fatigue R53.82 ; Protein malnutrition E46 ; Type 2 diabetes mellitus with hyperglycemia E11.65 ; longterm (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.4 ; Histoplasmosis [...] mellitus with hyperglycemia (ICD-10 - E11.65) 07/03/2025 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 (ICD-10 - [...] Name:Shauna Merida er, 11/12/2025 01:30:00 PM, 1210 [facility] 36 [facility], [address], [place], [place], [id number], Progress Notes * CHICOHERMILA STRONG GINOOB: [birth year] (75 yo M)Acc No.[id number]:07/03/2025 Progress Notes Patient: HERMILA BUCIO Provider: Shauna Almanzar M.D. :1950 A ge:75 Y S ex:Male Date:07/03/2025 Address:[address] [place] [address] 32 , [facility] Subjective: * Chief Complaints: * 1 . [...] - [place], Questionable Dx Lupus erythematosus 2015, Granuloma annulare [...] at bedtime , Not-Taking FreeStyle Leroy 3 [place] - Device as directed , Not-Taking FreeStyle [...] drenal abnormality - E27.9 9 . B [place] 21.0-21.9, adult - Z68.21? Plan: * Treatment: [...] G 2211 Complex e/[place], [address] CBC WITH AUTO DIFF, 02219 GLYCATED HEMOGLOBIN TEST, Modifiers: QW , 27051 CAPILLARY BLOOD DRAW, 1036F TOBACCO NON-USER, G8950 PREHTN/HTN BP DOC INDCD F/U DOC, G8752 MOST RECENT SYSTOLIC BP < 140MM HG, G8754 MOST RECENT DIASTOLIC BP < 90MM HG, 3044F HG A1C LEVEL LT 7.0% * Follow Up: 4 Weeks * Images: Billing Information: * Visit Code: 89150 Office Visit, Est Pt., Level 4. * Procedure Codes: G2211 Complex e/[place]. [address] CBC WITH AUTO DIFF. 07708 GLYCATED HEMOGLOBIN TEST. Modifiers: QW 30153 CAPILLARY BLOOD DRAW. 1036F TOBACCO NON-USER. G8950 [...] 07/03/2025 Generated for Marissa mendoza/Rei/eTransmitting on: 1 10:51 [...]
--- OUTSIDE RECORDS SUMMARY | 2025-07-07 11:40 | XMS_ITS | Encounter Summary ---
Author Organization [facility] Address [address] [place] [address] Care Team Providers Care Wafer Polishing Lead Worker Name Role Phone Rocky Almanzar MD Primary Care Provider [phone] Reason for Referral * Consultation (Routine) - Authorized Specialty Diagnoses / Procedures Referred By Contac t Referred To Contact Diagnoses Type 2 diabetes mellitus with hyperglycemia, with long-term current use of insulin Hemochromatosis, unspecified hemochromatosis type Acquired hypothyroidism Histoplasmosis Angelica Allan DO [address] [address] Phone: tel: fax: Referral ID Status Reason Start Date Expiration Date V isits Requested Visits Authorized [id number] Authorized 07/07/2025 01/06/2027 1 1 Encounter Details Date Type Department Care Team (Late st Contact Info) Description 07/07/2025 11:40 AM EDT Office Visit [facility] Endocrinology [address] [place] [address] Angelica Allan DO [address] [facility] [address] [place] [address] Type 2 diabetes mellitus with [...] AM EDT Spoke with pt about connecting [facility] CGM to [facility] Clinic. Pt does have ahmet on phone, but has not created profile or used a login to be able to share with [facility]. Provided pt with instructions on how to [...] and decreased strength. He sees GI at [place]. He had been having glucoses >350. He [...] hyperglycemia, with long-term current use of insulin ([facility]) (Primary) - POCT glycosylated hemoglobin [...] and/or coordination of care. Electronically signed by: Angleica Allan DO [facility] ENDOCRINOLOGY [address] [facility] [place]. [address] PHONE [phone] FAX: [phone] Post Visit Addendum: Labs reviewed. FLP noted [...] Description 01/05/2026 9:40 AM EST Office Visit [facility] Endocrinology [address] [place] [phone] Angelica Allan DO [address] [place] [address] 01/05/2026 11:00 AM EST Office Visit [facility] [place] [address] [place] [address] Vivian Macias S, OD [address] [place] [address] Scheduled Orders Name Type Priority Associated Diagnoses Orde r Schedule Cortisol Lab Routine Histoplasmosis Expected: 07/07/2025 (Approximate), Expires: 07/07/2026 ACTH Lab Routine Histoplasmosis Expected: 07/07/2025 (Approximate), Expires: 07/07/2026 Albumin-creatinine ratio, urine, random Lab Routine Type 2 diabetes mellitus with hyperglycemia, with long-term current use of insulin ([facility]) Expected: 07/07/2025 (Approximate), Expires: 07/07/2026 Lipid panel Lab Routine Type 2 diabetes mellitus with hyperglycemia, with long-term current use of insulin ([facility]) Expected: 07/07/2025 (Approximate), Expires: 07/07/2026 TSH Lab Routine Acquired hypothyroidism Expected: 07/07/2025 (Approximate), Expires: 07/07/2026 T4, free Lab Routine Acquired hypothyroidism Expected: 07/07/2025 (Approximate), Expires: 07/07/2026 Scheduled Referrals Name Type Priority Associated Diagnoses Orde r Schedule Follow Up [facility] Outpatient Referral Routine Type 2 diabetes mellitus with hyperglycemia, with long-term current use of insulin ([facility]) Hemochromatosis, unspecified hemochromatosis type Acquired hypothyroidism Histoplasmosis Expected: 01/04/2026, Expires: 01/08/2027 documented as of this encounter Procedures Procedure Name Priority Date/Time Associated Diagnosis Comments POCT GLYCOSYLATED HEMOGLOBIN (HGB A1C) Routine 07/07/2025 12:03 PM EDT Type 2 diabetes mellitus with hyperglycemia, with long-term current use of insulin ([facility]) documented in this encounter Results * CORTISOL, 60 (07/20/2025 2:40 PM EDT) Cortisol Time=60 21.00 Before 10am: 3.7 - 19.4. After 5pm: 2.9 - 17.3 ug/dL 07/20/2025 8:20 PM EDT [facility] Comment: Testing performed on [employer], standardized against RETIREMENT Reference Standard concentration values assigned by LC-MS/MS [...] Allan DO LAB BLOOD ORDERABLES Final Result [facility] [address] [place] [address] * Cortisol, 30 (07/20/2025 2:03 PM EDT) Cortisol,Time=30 18.30 Before 10am: 3.7 - 19.4. After 5pm: 2.9 - 17.3 ug/dL 07/20/2025 8:19 PM EDT [facility] Comment: Testing performed on [employer] Developer, standardized against RETIREMENT Reference Standard concentration values assigned by LC-MS/MS [...] BLOOD ORDERABLES Final Result Performing Organization Address [facility] Co de Phone Number [facility] [address] [place] [address] * (ABNORMAL) ACTH (07/20/2025 1:28 PM EDT) ACTH 68.2(H) 7.2 - 63 pg/mL 07/20/2025 5:38 PM EDT [facility] Blood Venous blood specimen / Unknown Venipuncture / Unknown 07/20/2025 1:28 PM EDT 07/20/2025 1:42 PM EDT Angelicalorena Allan DO LAB BLOOD ORDERABLES Final Result [facility] [address] [place] [address] * Cortisol, Time=0 (07/20/2025 1:28 PM EDT) Cortisol 8.20 Before 10am: 3.7 - 19.4. After 5pm: 2.9 - 17.3 ug/dL 07/20/2025 8:23 PM EDT [facility] Comment:Testing performed on [employer] Developer, standardized against RETIREMENT Reference Standard concentration values assigned by LC-MS/MS and verified by BCR 192 and BCR 193 certified reference materials. Blood Venous blood specimen / Unknown Venipuncture / Unknown 07/20/2025 1:28 PM EDT 07/20/2025 4:08 PM EDT us Angelica Allan DO LAB REF LAB BLOOD AND FLUID ORD Final Result Performing Organization Address City/[facility]/ZIP Co de Phone Number [facility] [address] [place] [address] * POCT glycosylated hemoglobin (Hb A1C) (07/07/2025 12:03 PM EDT) POCT Hemoglobin A1C 6.7 <5.7% Non-Diabet ic % [facility] Kit Lot Number [id number] [facility] Kit Expiration Date 04/2027 [facility] Blood Venous blood specimen / Unknown 07/07/2025 12:03 PM EDT us Angelica Allan DO POINT OF CARE TEST ENTER/ED IT ORDERABLES Edited Result - Final Performing Organization Address City/[facility] Co de Phone Number [facility]ARE [facility] [address] [place] [address] documented in this encounter Visit Diagnoses Diagnosis [...] documented as of this encounter Care Teams Wafer Polishing Lead Worker Relationship Specialty Start Date End Date Rocky Almanzar MD [address] [place] [address] PCP - General 03/18/21 documented as of this encounter
--- OUTSIDE RECORDS SUMMARY | 2025-07-17 14:00 | XMS_ITS | Encounter Summary ---
Author Organization [facility] Address [address] [place] [address] Care Team Providers Care Analytics Leader Name Role Phone Rocky Almanzar MD Primary Care Provider [phone] Reason for Visit * Reason Comments Hearing Loss Encounter Details Date Type Department Care Team (Late st Contact Info) Description 07/17/2025 2:00 PM EDT Office Visit [facility] Audiology [address], [address] [place] [address] Lottie Lund, AuD [address] [place] [address] Sensorineural hearing loss (SNHL) of [...] it does not seem to heal well. 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: [employer] Ear: RE: Surgery Date: 06/14/2017-Revision 08/11/2015-Original Internal Device: [id number] Advantage/HiFocus 1J - [id number] Primary External Device: Lizabeth M90 Fit Date: 01/08/2025 Magnet strength: 2 Cord length: 3.5 Battery: Rechargeable Tyesha Exp: 01/08/2028 LE: Surgery Date: 04/07/2020 Internal Device: HiRes Zobrm1J/HiFocus SlimJ - [id number] Primary External Device: Lizabeth Q90 Fit Date: [...] EST Office Visit [facility] [address] [place] [address] Melany Rosales DO [address] [place] [address] 01/05/2026 11:00 AM EST Office Visit [facility] [address] [place] [address] Vivian Macias S, OD [address] [place] [address] documented as of this encounter [...] documented as of this encounter Care Teams Analytics Leader Relationship Specialty Start Date End Date Rocky Almanzar MD [address] [place] [address] PCP - General 03/18/21 documented as of this encounter
--- OUTSIDE RECORDS SUMMARY | 2025-07-20 13:30 | XMS_ITS | Encounter Summary ---
Author Organization [facility] Address [address] [place] [address] Care Team Providers Care Hardware Technician Name Role Phone Rocky Almanzar MD Primary Care Provider [phone] Encounter Details Date Type Department Care Team (Late st Contact Info) Description 07/20/2025 1:30 PM EDT Clinical Support [facility] [address] [place] [address] Social History Tobacco Use Types [...] Visit [facility] [address] [place] [address] Melany Rosales DO [address] [place] [address] 01/05/2026 11:00 AM EST Office Visit [facility] [place] [address] [place] [address] Vivian Macias S, OD [address] [place] [address] documented as of this encounter [...] documented as of this encounter Care Teams Hardware Technician Relationship Specialty Start Date End Date Rocky Almanzar MD [address] [place] [address] PCP - General 03/18/21 documented as of this encounter
--- OUTSIDE RECORDS SUMMARY | 2025-08-07 07:00 | XMS_ITS ---
Author Organization [facility]10 [facility] [address] [id number] Care Team Providers Care Assistant Art Director Name Role Phone Shauna Almanzar Primary Care Provider Allergies Allergen (clinical drug ingredient) Drug/Non Drug Allergy documented on EMR Reaction Allergy Type Onset Date Status cephalexin Cephalexin Unknown Drug Allergy Activ e Reason For Referral Reason needs physical and p ulmonary rehab Diagnosis 1 Interstitial lung di sease (J84.9) [facility] Referring Provider First Name Shauna Beatty Referring Provider Last Name Yohan Referring Provider Speciality Family Pra ctice Referred Provider Specialty Physical The rapist General Notes Genoveva Grigsby 2024 01:08:41 PM > faxed to [facility] PT Referral Priority Routine REASON FOR [...] Orally at bedtime Not-Taking FreeStyle Leroy 3 [place] - as directed 05/12/2025 Not-Taking FreeStyle Leroy [...] 08/07/2025 Encounters Encounter Location Date Provider Diagnosis [facility] [address] [id number] 08/07/2025 Shauna Almanzar Type 2 diabetes aquilino itus without complication E11.9 ; Acquired hypothyroidism E03.9 ; Hereditary hemochromatosis E83.110 ; Cochlear implant status Z96.21 ; Interstitial lung disease J84.9 ; [facility] (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.4 and 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 Assessments Encounter Date Diagnosis (ICD Code) Assessment Notes Treatment Notes Treatment Clinical Notes Section Notes 08/07/2025 Type 2 diabetes mellitus without complication (ICD-10 - E11.9) 08/07/2025 Acquired hypothyroidism (ICD-10 - E03.9) 08/07/2025 Hereditary hemochromatosis (ICD-10 - E83.110) 08/07/2025 Cochlear implant status (ICD-10 - Z96.21) 08/07/2025 Interstitial lung disease (ICD-10 - J84.9) 08/07/2025 [facility] (current) use of insulin (ICD-10 - Z79.4) 08/07/2025 Adrenal abnormality (ICD-10 - E27.9) Plan Of Treatment Referrals Referral Date Details 08/07/2025 08/07/2025, needs ph ysical and pulmonary rehab Next Appt Details Follow Up: 3M, Reason: Provider Name:Shauna Merida er, 11/12/2025 01:30:00 PM, 1210 [facility] [address], [address], [place], [place], [phone], Progress Notes * HERMILA GOLDENOB: [birth year] (75 yo M)Acc No.[id number]:08/07/2025 Progress Notes Patient: HERMILA BUCIO Provider: Shauna Almanzar M.D. :1950 A ge:75 Y S ex:Male Date:08/07/2025 Address:[address] [place] [address], [place] [phone] Subjective: * Chief Complaints: * 1 . [...] portal: [email or web address]...[email or web address], type 2 diabetes, [facility] [...] bedtime , Not- Taking FreeStyle Leroy 3 [place] - Device as directed , Not-Taking FreeStyle [...] * Images: Billing Information: * Visit Code: 77895 Office Visit, Est Pt., Level 4. * [...] M.D. Date: Generated for Marissa mendoza/Rei/eTransmitting on: 10:50 AM EDT History and Physical Notes [...]
--- OUTSIDE RECORDS SUMMARY | 2025-08-10 11:12 | XMS_ITS ---
Author Organization [facility] Address [address] [place] [address] [place] [address] Phone Care Team Providers Care Pearl Fisherman Name Role Phone Sukumar CUEVAS, Rocky Griggs [ ] Conditions or Problems No information available. Medications Medication Instructions Start Date Stop Date Generic Name [facility] Provider warfarin warfarin Rocky Patino MD potassium citrate (replacement) 99 mg capsule potassium citrate [id number] Lulú Ciro Medications Administered No information available. Allergies, Adverse Reactions, Alerts No information available. Results Date Name Value Unit Range Flag Description Office Visit: Office Visit: 4 MEDS REVIEW Done Documenta tion of current medications (procedure) SMOK STATUS Former smoker Tob acco smoking status Plan of Care Type Date Detail Appointment 11:00 AM Rocky Patino MD, [address] [place] [address], [address], [place], [address], Pending order CMP Pending order CBC with Differe ntial Pending order Voriconazole Lev el Procedures Code Procedure Name Date Entry Date G2211 Complex E&M visit add-on (G2211) CPT-20347 CMP [id number] CBC with Differential 2024 CPT-44441 Voriconazole Level 6 Vital Signs Date Name [...]
--- OUTSIDE RECORDS SUMMARY | 2025-09-04 10:50 | XMS_ITS | Clinical Summary ---
Author Organization [facility] Address [address] [place] [address] Care Team Providers Care Chief Security And Safety Officer Name Role Phone Provider, No Known [...] 08/15/2016 AAA SCREEN ONCE Completed 12/07/2016 Insurance [facility] Medicare [employer] PPO Care Teams Chief Security And Safety Officer Relationship Specialty Start Date End Date Provider, No Known [facility] [place] [address] PCP - General 01/14/25
--- OUTSIDE RECORDS SUMMARY | 2025-09-04 10:50 | XMS_ITS | Clinical Summary ---
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 Active 01/09 Echo Mccurdy 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/09 Active 01/09 Echo Mccurdy Acute pulmonary histoplasmosis capsulati Medications Medication Instructions Start Date Stop Date Generic Name [facility] Provider warfarin warfarin Rocky Patino MD potassium citrate (replacement) 99 mg capsule potassium citrate [id number] Chelse a Ciro VORICONAZOLE 200 MG TABS Take 1 tablet by mouth once a day voriconazole 66207729024 Rocky Patino MD MINOCYCLINE HCL 100 MG CAPS 1 capsule by mouth twice a day Take one twice a day for three days then only take 1 once a day minocycline 95654527758 Rocky Patino MD budesonide 3 mg by mouth as needed as directed 06/15 budesonide Flavio Mack budesonide 3 mg by mouth as needed as directed 06/15 budesonide Jhai Angel EZETIMIBE 10 MG TABS 1 tablet by mouth once a day 04/17 ezetimibe 77868401335 eros Angel XARELTO 20 MG TABS 04/17 rivaroxaban 11962207826 [facility] Stanley PRAVASTATIN SODIUM 20 MG TABS 1 tablet by mouth once a day 04/17 pravastatin 13217839782 Hugh Angel aspirin 81 mg capsule 1 capsule by mouth once a day 04/17 aspirin eros Angel ITRACONAZOLE 100 MG CAPS Take 2 capsule by mouth twice a day 04/14 itraconazole 66318241824 Anne Gaurang ITRACONAZOLE 100 MG CAPS TAKE TWO CAPSULES BY MOUTH TWICE DAILY itraconazole 36658203285 Rocky Patino MD IPRATROPIUM-ALBU TEROL 0.5-2.5 (3) MG/3ML SOLN 01/19 ipratropium-albut [place] 92379874488 Amrita Herminia JARDIANCE 10 MG TABS 1 tablet by mouth once a day 01/19 empagliflozin 08107306765 Amrita Hope ITRACONAZOLE 100 MG CAPS Take 2 capsule by mouth twice a day 04/14 itraconazole 88531908175 Rokcy Patino MD XARELTO 20 MG TABS 04/17 rivaroxaban 62179544918 [facility] aspirin 81 mg capsule 1 capsule by mouth once a day 04/17 aspirin Laiba Sonu budesonide 9 mg by mouth as needed as directed 04/17 budesonide Laiba Sonu VITAMIN D 25 MCG (1000 UT) TABS 1 tablet by mouth once a day cholecalciferol (vitamin d3) 06763586488 Laiba Sonu JARDIANCE 10 MG TABS 1 tablet by mouth once a day 01/19 empagliflozin 99751320798 Laiba Sonu EZETIMIBE 10 MG TABS 1 tablet by mouth once a day 04/17 ezetimibe 82642956262 Laiba Sonu insulin lispro protamine-lispro 100 unit/mL (75-25) subcutaneous susp insulin lispro protamin-lispro Laiba Sonu IPRATROPIUM-ALBU TEROL 0.5-2.5 (3) MG/3ML SOLN ipratropium-albut ph[place] 16462318788 Laiba Sonu LEVOTHYROXINE SODIUM 50 MCG TABS 1 tablet by mouth once a day levothyroxine 07220315645 Laiba Sonu METFORMIN HCL 500 MG TABS 1 tablet by mouth once a day metformin 59208851615 Laiba Sonu MIRTAZAPINE 15 MG TABS 1 tablet by mouth once a day mirtazapine 27242576671 Laiba Sonu MYCOPHENOLATE MOFETIL 500 MG TABS 1 tablet by mouth twice a day mycophenolate mofetil 41544247542 Laiba Sonu PRAVASTATIN SODIUM 20 MG TABS 1 tablet by mouth once a day 04/17 pravastatin 22402688430 Laiba Sonu URSODIOL 500 MG TABS 1 tablet by mouth twice a day ursodiol 79601717324 Laiba Sonu Medications Administered No information available. 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, [facility] yes Fall ris k assessment Lab Report: [...] Appointment 11:00 AM Rocky Patino MD, [address] [facility], [address], [place], [address], Pending order CMP Pending order CBC with [...] Entry Date G2 Complex E&M visit add-on (G221) CPT-29972 CMP L8461v,[id number] CBC with Differential 2024 CPT-06244 Voriconazole Level 6 CPT-elizabeth New Oral Antibiotic CPT-coral Change oral antibiotics 2024 G2211 Complex E&M visit add-on (G2211) G2211 Complex E&M visit add-on (G2211) CPT-71838 CMP A7274p,[id number] CBC with Differential 2024 CPT-01580 BNP CPT-74584 Itraconazole Level 3 CPT-Cooral Continue oral antibiotics 20 29/04/13 G2211 Complex E&M visit add-on (G2211) CPT-Cooral Continue oral antibiotics 27/02/11 CPT-36272 CMP E1351v,[id number] CBC with Differential 2024 CPT-64759 Itraconazole Level 1 CPT-87367 BNP CPT-elizabeth New Oral Antibiotic CPT-76838 CMP M0230v,[id number] CBC with Differential 2024 CPT-01201 CD4 27031 Fungitell, serum (1-3) D-Glucan Assay 03/07/12 CPT-55286 Urine Culture & Sensitivity [id number], [id number] Urinalysis CPT-cf Fungal Culture & Sensitivity CPT-37929 BNP Vital Signs Date Name Value Unit [...]
--- OUTSIDE RECORDS SUMMARY | 2025-09-04 10:50 | XMS_ITS | Encounter Summary ---
Author Organization [facility] Address [address] [place] [address] Care Team Providers Care Dishwashing Machine Repairer Name Role Phone Rocky Almanzar MD Primary Care Provider [phone] Reason for Visit * Reason Comments Med Refill Encounter Details Date Type Department Care Team (Late Contact Info) Description 11/10/2021 Refill [facility] [address] [place] [address] Jason Romero MD [address] [address] Type 2 diabetes mellitus with other specified complication, with long-term current use of insulin ([facility]) Social History Tobacco Use Types Packs/Day Years [...] Visit [facility] [address] [place] [address] Melany Rosales DO [address] [place] [address] 01/05/2026 11:00 AM EST Office Visit [facility] [place] [address], [address] [place] [address] Vivian Macias S, OD [address] [facility] [address] [place] [address] documented as of this encounter [...] documented as of this encounter Care Teams Dishwashing Machine Repairer Relationship Specialty Start Date End Date Rocky Almanzar MD [address] [place] [address] PCP - General 03/18/21 documented as of this encounter
--- OUTSIDE RECORDS SUMMARY | 2025-09-04 10:51 | XMS_ITS | Encounter Summary ---
Author Organization Healthcare Address [address] [place] [address] Care Team Providers Care Commodity Trader Name Role Phone Rocky Almanzar MD Primary Care Provider [phone] Reason for Visit * Reason Comments Med Refill Encounter Details Date Type Department Care Team (Late Contact Info) Description 05/20/2021 Refill [facility] Endocrinology [address] [place] [address] Jason Romero MD [address] [address] Social History Tobacco Use Types [...] Description 01/05/2026 9:40 AM EST Office Visit [facility] Endocrinology [address] [place] [address] Melany Rosales, DO [address] [place] [address] 01/05/2026 11:00 AM EST Office Visit [facility] [place] [address], [address] [place] [address] Vivian Macias S, OD [address] [place] [address] documented as of this encounter Visit Diagnoses Not on filedocumented in this encounter Additional Health Concerns Infection Onset Date Last Indicated Resolved Time MRSA 03/30/2021 03/30/2021 documented as of this encounter Care Teams Commodity Trader Relationship Specialty Start Date End Date Rocky Almanzar MD [address] [place] [address] PCP - General 03/18/21 documented as of this encounter
--- OUTSIDE RECORDS SUMMARY | 2025-09-04 10:51 | XMS_ITS | Encounter Summary ---
Author Organization [facility] Address [address] [place] [address] Care Team Providers Care Heel Cementer Machine Name Role Phone Rocky Almanzar MD Primary Care Provider [phone] Reason for Visit * Reason Comments Med Refill Encounter Details Date Type Department Care Team (Late st Contact Info) Description 09/01/2025 Refill [facility] Endocrinology [address] [place] [address] Jason Romero MD [address] [address] Type 2 diabetes mellitus with hyperglycemia, with long-term current use of insulin Social History Tobacco Use Types Packs/Day Years [...] encounter Miscellaneous Notes * Telephone Encounter - Destini Estrada, PharmD - 09/01/2025 12:16 PM EDT 1 medication(s) has been denied per protocol due to: Refill requested too soon documented in this encounter Plan of Treatment Upcoming Encounters Date Type Department Care Team (Late st Contact Info) Description 01/05/2026 9:40 AM EST Office Visit [facility] Endocrinology [address] [place] [address] Melany Rosales, DO [address] [place] [address] 01/05/2026 11:00 AM EST Office Visit [facility] [place] [address], [address] [place] [address] Vivian Macias S, OD [address] [place] [address] documented as of this encounter Visit Diagnoses Diagnosis Type 2 diabetes mellitus with hyperglycemia, with long-term current use of insulin documented [...] documented as of this encounter Care Teams Heel Cementer Machine Relationship Specialty Start Date End Date Rocky Almanzar MD [address] [place] [address] PCP - General 03/18/21 documented as of this encounter
--- OUTSIDE RECORDS SUMMARY | 2025-09-04 10:51 | XMS_ITS | Encounter Summary ---
Author Organization [facility] Address [address] [facility] [place] [address] Care Team Providers Care Student Driving Instructor Name Role Phone Rocky Almanzar MD Primary Care Provider [phone] Encounter Details Date Type Department Care Team (Late st Contact Info) Description 07/09/2025 [facility] [address] [place] [address] Melany Rosales DO [address] [address] Social History Tobacco Use Types [...] Description 01/05/2026 9:40 AM EST [facility] Endocrinology [address] [place] [address] Melany Rosales DO [address] [address] 01/05/2026 11:00 AM EST Office Visit [facility] [place] [address], [address] [place] [address] Vivian Macias S, OD [address] [place] [address] documented as of this encounter [...] documented as of this encounter Care Teams Student Driving Instructor Relationship Specialty Start Date End Date Rocky Almanzar MD [address] [place] [address] PCP - General 03/18/21 documented as of this encounter
--- OUTSIDE RECORDS SUMMARY | 2025-09-04 10:51 | XMS_ITS | Encounter Summary ---
Author Organization [facility] Address [address] [place] [address] Care Team Providers Care Process Development Manager Name Role Phone Rocky Almanzar MD Primary Care Provider [phone] Encounter Details Date Type Department Care Team [...] Description 01/05/2026 9:40 AM EST Office Visit [facility] Endocrinology [address] [place] [address] Melany Rosales, DO [address] [place] [address] 01/05/2026 11:00 AM EST Office Visit [facility] [place] [address] [place] [address] Vivian Macias S, OD [address] [place] [address] documented as of this encounter Visit Diagnoses [...] documented as of this encounter Care Teams Process Development Manager Relationship Specialty Start Date End Date Rocky Almanzar MD [address] [place] [address] PCP - General 03/18/21 documented as of this encounter
--- OUTSIDE RECORDS SUMMARY | 2025-09-04 10:51 | XMS_ITS | Encounter Summary ---
Author Organization [facility] Address [address] [place] [address] Care Team Providers Care Testing Coordinator Name Role Phone Rocky Almanzar MD Primary Care Provider [phone] Encounter Details Date Type Department Care Team (Late st Contact Info) Description 07/20/2025 [facility] [address] [place] [address] Melany Rosales DO [address] [place] [address] Type 2 diabetes mellitus with hyperglycemia, with long-term current use of insulin ([facility]) (Primary Dx) Social History Tobacco [...] Description 01/05/2026 9:40 AM EST Office Visit [facility] [address] [place] [address] Melany Rosales DO [address] [facility] [address] [place] [address] 01/05/2026 11:00 AM EST Office Visit [facility] [place] [address] [place] [address] Vivian Maicas S, OD [address] [place] [address] documented as of this encounter [...] documented as of this encounter Care Teams Testing Coordinator Relationship Specialty Start Date End Date Rocky Almanzar MD [address] [place] [address] PCP - General 03/18/21 documented as of this encounter
--- OUTSIDE RECORDS SUMMARY | 2025-09-04 10:51 | XMS_ITS | Encounter Summary ---
Author Organization [facility] Address [address] [place] [address] Care Team Providers Care Machine Binding Folder Name Role Phone Rocky Almanzar MD Primary Care Provider [phone] Encounter Details Date Type Department Care Team (Late st Contact Info) Description 07/08/2025 Orders Only [facility] [address] [place] [address] Melany Rosales DO [address] [address] Social History Tobacco Use Types [...] AM EST Office [facility] Endocrinology [address] [place] [address] Melany Rosales DO [address] [address] 01/05/2026 11:00 AM EST Office Visit [facility] [place] [address] [place] [address] Vivian Macias S, OD [address] [place] [address] documented as of this encounter [...] as of this encounter Care Teams Machine Binding Folder Relationship Specialty Start Date End Date Rocky Almanzar MD [address] [place] [address] PCP - General 03/18/21 documented as of this encounter
--- OUTSIDE RECORDS SUMMARY | 2025-09-04 10:51 | XMS_ITS | Encounter Summary ---
Author Organization [facility] Address [address] [place] [address] Care Team Providers Care Ladle Mechanic Name Role Phone Rocky Almanzar MD Primary Care Provider [phone] Encounter Details Date Type Department Care Team (Late st Contact Info) Description 07/09/2025 Results Follow-Up [facility] [address] [place] [address] Melany Rosales, 2195 [facility] [address] [place] [address] Social History Tobacco Use Types [...] Description 01/05/2026 9:40 AM EST Office Visit [facility] Endocrinology [address] [place] [address] Melany Rosales DO [address] [facility] [address] [place] [address] 01/05/2026 11:00 AM EST Office Visit [facility] Eye [place] [address], [address] [place] [address] Vivian Macias S, OD [address] [place] [address] documented as of this encounter [...] documented as of this encounter Care Teams Ladle Mechanic Relationship Specialty Start Date End Date Rocky Almanzar MD [address] [place] [address] PCP - General 03/18/21 documented as of this encounter
--- OUTSIDE RECORDS SUMMARY | 2025-09-04 10:51 | XMS_ITS | Encounter Summary ---
Author Organization [facility] Address [address] [facility] [place] [address] Care Team Providers Care Drier Helper Name Role Phone Rocky Almanzar MD Primary Care Provider [phone] Encounter Details Date Type Department Care Team (Late st Contact Info) Description 07/10/2025 Orders Only [facility] [address] [place] [address] Melany Rosales DO [address] [address] Social History Tobacco Use Types [...] Description 01/05/2026 9:40 AM EST Office Visit [facility] Endocrinology [address] [place] [address] Melany Rosales DO [address] [address] 01/05/2026 11:00 AM EST Office Visit [facility] [place] [address] [place] [address] Vivian Macias S, OD [address] [place] [address] documented as of this encounter [...] documented as of this encounter Care Teams Drier Helper Relationship Specialty Start Date End Date Rocky Almanzar MD [address] [place] [address] PCP - General 03/18/21 documented as of this encounter
--- OUTSIDE RECORDS SUMMARY | 2025-09-04 10:52 | XMS_ITS | Encounter Summary ---
Author Organization [facility] Address [address] [place] [address] Care Team Providers Care Gas Technician Name Role Phone Rocky Almanzar MD Primary Care Provider [phone] Encounter Details Date Type Department Care Team [...] Description 01/05/2026 9:40 AM EST Office Visit [facility] Endocrinology [address] [place] [address] Melany Rosales, DO [address] [place] [address] 01/05/2026 11:00 AM EST Office Visit [facility] [place] [address] [place] [address] Vivian Macias S, OD [address] [place] [address] documented as of this encounter Visit Diagnoses [...] as of this encounter Care Teams Gas Technician Relationship Specialty Start Date End Date Rocky Almanzar MD [address] [place] [address] PCP - General 03/18/21 documented as of this encounter
--- OUTSIDE RECORDS SUMMARY | 2025-09-04 10:52 | XMS_ITS | Encounter Summary ---
Author Organization [facility] Address [address] [place] [address] Care Team Providers Care Extension Associate Name Role Phone Rocky Almanzar MD Primary Care Provider [phone] Encounter Details Date Type Department Care Team [...] Description 01/05/2026 9:40 AM EST Office Visit [facility] Endocrinology [address] [place] [address] Melany Rosales, DO [address] [place] [address] 01/05/2026 11:00 AM EST Office Visit [facility] [place] [address] [place] [address] Vivian Macias S, OD [address] [place] [address] documented as of this encounter Visit Diagnoses [...] documented as of this encounter Care Teams Extension Associate Relationship Specialty Start Date End Date Rocky Almanzar MD [address] [place] [address] PCP - General 03/18/21 documented as of this encounter
--- OUTSIDE RECORDS SUMMARY | 2025-09-04 10:52 | XMS_ITS | Clinical Summary ---
Author Organization [facility] Address [address] [place] [address] Care Team Providers Care Neon Installer Name Role Phone Rocky Almanzar MD Primary Care Provider [phone] Allergies Active Allergy Reactions Criticality Noted Date [...] Encounters Date Type Department Care Team Description 09/01/2025 Refill [facility] Endocrinology [address] [place] [address] Jason Romero MD Type 2 diabetes mellitus with hyperglycemia, with long-term current use of insulin 07/20/2025 1:30 PM EDT Clinical Support [facility] [address] [place] [address] 07/20/2025 Orders Only [facility] [address] [place] [address] Melany Rosales DO Type 2 diabetes mellitus with hyperglycemia, with long-term current use of insulin ([facility]) (Primary Dx) 07/20/2025 Travel 07/17/2025 2:00 PM EDT Office Visit [facility] Audiology [address] [place] [phone] Lottie Lund AuD Sensorineural hearing loss (SNHL) of both ears 07/17/2025 Travel 07/10/2025 Orders Only [facility] Endocrinology [address] [place] [address] Melany Rosales DO 07/09/2025 Orders Only [facility] Endocrinology [address] [place] [address] Melany Rosales, 07/09/2025 Results Follow-Up [facility] Endocrinology [address] [place] [address] Melany Rosales, 07/08/2025 Orders Only [facility] Endocrinology [address] [place] [address] Melany Rosales, 07/07/2025 11:40 AM EDT Office Visit [facility] Endocrinology [address] [place] [address] Melany Rosales, DO Type 2 diabetes mellitus with hyperglycemia, with long-term current use of insulin (CMS/HCC) (Primary Dx); Hemochromatosis, unspecified hemochromatosis type; Acquired hypothyroidism; Histoplasmosis; Elevation of adrenocorticotropic hormone (ACTH) 07/07/2025 Travel 06/30/2025 Refill [facility] Endocrinology [address] [place] [address] Jason Romero MD from Last 3 Months [...] Description 01/05/2026 9:40 AM EST Office Visit [facility] Endocrinology [address] [place] [address] Melany Rosales, DO [address] [place] [address] 01/05/2026 11:00 AM EST Office Visit [facility] [address] [place] [address] Vivian Macias S, OD [address] [place] [address] Health Maintenance Due Date Last Done Comments [facility]-Depression Screening 1950 [facility]-Medicare Annual Wellness (AWV) 1950 [facility]-Infant/Child/Adol SDOH Screenings 1950 Diabetes: Dental Exam 1961 [facility]- SDOH Screenings 1969 [facility]-Adult SDOH Screenings 1969 [facility]-DTaP,Tdap,and Td Vaccines (1 - Tdap) 1970 [facility]-Zoster Vaccines (1 of 2) 1970 CT Colonography 1996 FIT-DNA 1996 FIT 1996 FOBT 1996 Sigmoidoscopy 1996 [facility]-Abdominal Aortic Aneurysm (AAA) Screening 2016 [id number] Vaccine (7 - Moderna risk season) 2025 [...] this topic Medical Devices Implanted Type Area Nursing Project Coordinator Device Identifier Shelf Expiration Date Model / Serial / Lot Roseline Stanleyk Advantage Ci Hifocus 1j Electrode--06/05 Implanted:06/05 by Ky Del Rio MD (Quantity not on file) Cochlear Left: Ear [employer] [id number] / [id number] / Description:Roseline StanleyK Advant age CI HiFocus 1J electrode--cochlear implant by Dr. Del Rio at [facility] on 06/21/2017, operative note in Epic. LEFT EAR. Red GuruMICAELA ULTRA 3D Cochlear implant REF: [id number] Serial number: [id number] Procedures Procedure Name Priority Date/Time Associated Diagnosis [...] - 17.3 ug/dL 07/20/2025 8:[address] [facility] Comment: Testing performed on [employer] Hardware Designer, standardized against [facility] Reference Standard concentration values assigned by LC-MS/MS [...] BLOOD ORDERABLES Final Result Performing Organization Address [facility] Co de Phone Number [facility] [address] [place] [address] * Cortisol, 30 (07/20/2025 2:03 PM EDT) Pathologist [facility] Cortisol,Time=30 18.30 Before 10am: 3.7 - 19.4. After 5pm: 2.9 - 17.3 ug/dL 07/20/2025 8:[address] [facility] Comment: Testing performed on [employer], standardized against [facility] Reference Standard concentration values assigned by LC-MS/MS [...] BLOOD ORDERABLES Final Result Performing Organization Address [facility] Co de Phone Number [facility] [address] [place] [address] * (ABNORMAL) ACTH (07/20/2025 1:28 PM EDT) Only the most recent of2 resultswithin the time period is included. ACTH 68.2(H) 7.2 - 63 pg/mL 07/20/2025 5:[address] [facility] Blood Venous blood specimen / Unknown Venipuncture / Unknown 07/20/2025 1:28 PM EDT 07/20/2025 1:42 PM EDT us Melany Rosales DO LAB BLOOD ORDERABLES Final Result Performing Organization Address [facility] Phone Number [facility] [address] [place] [address] * Cortisol, Time=0 (07/20/2025 1:28 PM EDT) Only the most recent of2 resultswithin the time period is included. Cortisol 8.20 Before 10am: 3.7 - 19.4. After 5pm: 2.9 - 17.3 ug/dL 07/20/2025 8:[address] [facility] Comment:Testing performed on [employer] Computer Hardware Designer, standardized against [facility] Reference Standard concentration values assigned by LC-MS/MS and verified by BCR 192 and BCR 193 certified reference materials. Blood Venous blood specimen / Unknown Venipuncture / Unknown 07/20/2025 1:28 PM EDT 07/20/2025 4:08 PM EDT us Melany Rosales DO LAB REF LAB BLOOD AND FLUID ORD Final Result Performing Organization Address [facility] Co de Phone Number [facility] [address] [place] [address] * HM Lipid Panel (07/08/2025 3:03 PM [...] [facility] Kit Lot Number [id number] [facility] Kit Expiration Date 04/2027 [facility] Blood Venous blood specimen / Unknown 07/07/2025 12:03 PM EDT Melany Rosales DO POINT OF CARE TEST ENTER/ED IT ORDERABLES Edited Result - Final [facility] [address] [place] [address] * COLONOSCOPY (08/03/2017) Anatomical Region Laterality Modality [...] ORDERABLES Final Re sult Performing Organization Address City/State/[facility] Co de Phone Number [facility] from Last 3 Months or Most Recently Relevant to Health Maintenance Additional Health Concerns Infection Onset Date Last Indicated MRSA 03/30/2021 03/30/2021 Insurance [facility] MEDIC[facility] E[place]ED Care Teams Neon Installer Relationship Specialty Start Date End Date Rocky Almanzar MD [address] [place] [address] PCP - General 03/18/21
--- OUTSIDE RECORDS SUMMARY | 2025-09-04 10:53 | XMS_ITS | Patient Health Record ---
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 Name Role Phone Shauna Almanzar Primary Care Provider Nardin Emir Unavailable [phone] Trinity Medeiros Unavailable [phone] Doretha Burns Unavailable [phone] Allergies Allergen (clinical drug ingredient) Drug/Non Drug [...] 229 Performing Lab: Notes/Report: Test performed by [facility] [address] [place] [address] , [address], [place] [address] Kristian Trevino MD, Manager [employer] CLIA: [id number] Sodium 138 135-145 mmol/L Potassium 4.3 3.5-5.3 [...] 5.5 Performing Lab: Notes/Report: Test performed by [facility] [address] [place] [address] , [address], [place] [address] Kristian Trevino MD, Manager [employer] CLIA: [id number] Sodium 139 135-145 mmol/L Potassium 3.7 3.5-5.3 [...] 695 Performing Lab: Notes/Report: Test performed by [facility] [address] , [address], [place] [address] Kristian Trevino MD, Manager [employer] CLIA: [id number] Albumin/Creatinine Ratio, Urine 695 0-30 ug/mg Microalbumin, [...] 175 Performing Lab: Notes/Report: Test performed by [facility] [address] , [address], [place] [address] Kristian Trevino MD, Manager [employer] CLIA: [id number] Sodium 140 135-145 mmol/L Potassium 4.1 3.5-5.3 mmol/L Chloride 105 97-108 mmol/L CO2 22 20-32 mmol/L Glucose 175 65-99 mg/dL BUN 12 8-23 mg/dL Creatinine 1.26 0.70-1.30 mg/dL Calcium 9.4 8.6-10.4 mg/dL eGFR by Creatinine 60 >59 mL/min/1.73m2 P-Cortisol, Random Reviewed date:07/07/2025 10:18:42 AM Interpretation: Normal Performing Lab: Notes/Report: Test performed by [facility] [address] , [place] [address] Kristian Trevino MD, Manager [employer] CLIA: [id number] Cortisol, Random 7.7 CORTISOL REFERENCE RANGE AM Serum: 6.0-18.4 ug/dL PM Serum: 2.7-10.5 ug/dL P-Iron Reviewed date:07/07/2025 10:18:42 AM Interpretation:28 Performing Lab: Notes/Report: Test performed by [facility] [address] [place] [address] , [place] [address] Kristian Trevino MD, Manager [employer] CLIA: [id number] Iron 28 59-158 ug/dL P-TSH Reviewed date:07/07/2025 10:18:42 AM Interpretation:6.42 Performing Lab: Notes/Report: Test performed by [facility] [address] [place] [address] , [place] [address] Kristian Trevino MD, Manager [employer] CLIA: [id number] TSH 6.42 0.43-5.25 mU/L CXR Reviewed date:11/04/2024 09:39:36 AM Interpretation:chronic findings, [...] 0.1 0.0-0.4 K/mm3 BA# 0.0 0-0.2 K/mm3 Cologuard Reviewed date:08/27/2025 03:18:22 PM Interpretation:Negative Performing Lab: Notes/Report: Negative Cologuard Negative H-TSH Reviewed date:11/13/2024 01:33:09 PM Interpretation:Normal Performing [...] 370 74-100 mg/dl CA 9.0 8.4-10.2 mg/dl CBC Venipuncture (in house) Reviewed date:06/10/2025 08:30:05 [...] 232 Performing Lab: Notes/Report: Test performed by [employer] [facility] , [address], [place] [address] Kristian Trevino MD, Manager [employer] CLIA: [id number] Sodium 141 135-145 mmol/L Potassium 3.0 3.5-5.3 [...] Interpretation:23 Performing Lab: Notes/Report: Test performed by [employer] , [facility], [place] [address] Kristian Trevino MD, Manager [employer] CLIA: [id number] Creatine Kinase 23 20-200 U/L P-P-Cnwzhorx Protein (CRP) Reviewed date:06/10/2025 08:30:05 AM Interpretation:4.00 Performing Lab: Notes/Report: Test performed by [employer] [facility] [place] [address] Kristian Trevino MD, Manager [employer] CLIA: [id number] C-Reactive Protein (CRP) 4.00 <0.50 mg/dL P-Sed Rate (ESR) Reviewed date:06/10/2025 08:30:05 AM Interpretation:31 Performing Lab: Notes/Report: Test performed by [employer] [facility] [address], [place] [address] Kristian Trevino MD, Manager [employer] CLIA: [id number] Erythrocyte Sedimentation Ra te (ESR), Automated 31 <21 mm/hr P-TSH reflex to FT4 Reviewed date:06/10/2025 08:30:05 AM Interpretation:Normal Performing Lab: Notes/Report: Test performed by [facility] [address] [place] [address] Kristian Trevino MD, Manager [employer] CLIA: [id number] TSH reflex to FT4 3.44 0.43-5.25 mU/L P-Vitamin D 25-Hydroxy Reviewed date:06/10/2025 08:30:05 AM Interpretation:Normal Performing Lab: Notes/Report: [facility] [place] [address] Kristian Trevino MD, Manager [employer] CLIA: [id number] Vitamin D 25-Hydroxy 57.8 30.0-100.0 ng/mL Interpretation of Vitamin D 25 [place]: < 20 ng/mL - Deficiency 20 - 29 ng/mL - Insufficiency 30 - 100 ng/mL - Sufficiency > 100 ng/mL - Super-therapeutic- toxicity may occur above this level. Clinical correlation required. H-BMP Reviewed date:09/08/2024 11:20:09 AM Interpretation:cl 109, co2 21, bun 25, tni100 Performing Lab: Notes/Report: NA 137 136-145 mmol/L [...] Notes/Report: glycohemoglobin 7.7% 5 - 6.5 % Medications Medication SIG (Take, Route, Frequency, Duration) Notes Start Date End Date Status Voriconazole 200 MG 1 tablet 1 hour before or 1 hour after meals Orally every 12 hrs Active Budesonide 3 MG 1 Orally at bedtime Not-Taking Ipratropium-Albuterol 0.5-2.5 (3) MG/3ML 3 mL as needed Inhalation every 6 hrs Active FreeStyle [place] 3 [place] - as directed 05/12/2025 Not-Taking Warfarin Sodium [...] 23 VACCINE IM Intramuscular 08/13/2018 Administe red Fluzone High Dose (65yr and older) IM Intramuscular 11/17/2016 Administered Fluzone High Dose (65yr and older) IM Intramuscular 08/16/2020 Administered Fluzone High Dose (65yr and older) IM Intramuscular 10/09/2024 Administered Fluzone High Dose (65yr and older) IM Intramuscular 08/07/2025 Administered Fluzone Quad-Medicare (6months&older) Unknown 09/22/2021 Administered Hepatitis A (adult) Unknown 03/03/2013 Administered Hepatitis A (adult) Unknown 07/31/2012 Administered COVID 19 Moderna Unknown 09/28/2021 Administered COVID 19 Moderna IM Intramuscular 12/14/2020 Administered COVID 19 Moderna IM Intramuscular 11/15/2020 Administered Problems Problem Type SNOMED Code ICD Code Onset Dates Problem Status W/U Status Risk Notes Problem Essential hypertension (17452105) Essential (primary) hypertension (I10) Active confirmed Problem Vitamin D deficiency (84912751) Vitamin D deficiency (E55.9) Active confirmed Problem Essential hypertension (39553322) Essential hypertension (I10) Active confirmed Problem Screening for malignant neoplasm of prostate (429705804) Prostate cancer screening (Z12.5) Active confirmed Problem Anorexia (49662885) Anorexia (R63.0) Active con firmed Problem Paroxysmal atrial fibrillation (464865187) Paroxysmal atrial fibrillation (I48.0) Active confirmed Problem Hyperglycemia due to type 2 diabetes mellitus (790117395002093) Type 2 diabetes mellitus with hyperglycemia (E11.65) Active confirmed Problem Mixed hyperlipidemia (042385012) Mixed hyperlipidemia (E78.2) Active confirmed Problem Hyperlipidemia (18507970) Hyperlipidemia, unspecified (E78.5) Active confirmed Problem Hereditary hemochromatosis (96004592) 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) Active confirmed Problem Chronic respiratory failure (70891691) Chronic respiratory failure with hypoxia (J96.11) Active confirmed Problem Autoimmune hepatitis (802621735) Autoimmune hepatitis (K75.4) Active confirmed Problem Cholelithiasis without obstruction (27922183) Calculus of gallbladder without cholecystitis without obstruction (K80.20) Active confirmed Problem Cochlear implant status (Z96.21) Active confirmed Problem Male erectile disorder (722742929) Male erectile disorder (N52.9) Active confirmed Problem Long-term current use of insulin (919354707) retirement (current) use of insulin (Z79.4) Active confirmed Problem Type II diabetes mellitus without complication (517473947) Type 2 diabetes mellitus without complication (E11.9) Active confirmed Problem Acquired hypothyroidism (535126638) Acquired hypothyroidism (E03.9) Active confirmed Problem Pulmonary fibrosis (72134835) Pulmonary fibrosis (J84.10) Active confirmed Problem Chronic fatigue syndrome (92847878) Chronic fatigue (R53.82) Active confirmed Problem COPD - Chronic obstructive pulmonary disease (06409573) Chronic obstructive pulmonary disease, unspecified COPD type (J44.9) Active confirmed Problem Pneumonia (121815129) Pneumonia of right lower lobe due to infectious organism (J18.9) Active confirmed Problem Hearing loss (40062754) Hearing loss, bilateral (H91.93) Active confirmed Problem Disorder of adrenal gland (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) 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) Active confirmed Problem Abnormal gait (91420865) Imbalance (R26.89) Active confirmed Problem Neutropenia (292890059) Neutropenia, unspecified type (D70.9) Active confirmed Problem Interstitial lung disease (358636566) Interstitial lung disease (J84.9) Active confirmed Problem Seasonal allergic rhinitis (673449784) Seasonal allergic rhinitis, unspecified allergic rhinitis trigger (J30.2) Active confirmed Problem Granulocytopenia (887245116) 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 confirmed Problem Systemic lupus erythematosus (34573816) Lupus (systemic lupus erythematosus) (M32.9) Active confirmed Problem Cardiac arrhythmia (640058209) Cardiac arrhythmia, unspecified cardiac arrhythmia type (I49.9) Active confirmed Problem Malnutrition, calorie (898518564) Caloric malnutrition (E46) Active confirmed Problem Benign prostatic hypertrophy without outflow obstruction (539472191) BPH without urinary obstruction (N40.0) Active confirmed Problem Allergic rhinitis caused by pollen (18388893) Acute seasonal allergic rhinitis due to pollen (J30.1) Active confirmed Problem Sensorineural hearing loss, bilateral (591711823) Sensorineural hearing loss (SNHL) of both ears (H90.3) Active confirmed Problem Cholestatic hepatitis (11390650) Cholestatic hepatitis (K75.89) Active confirmed Problem Skin sensation disturbance (93108149) Sensitive skin (R20.3) Active confirmed Problem Dilatation of aorta (54821343) Dilatation of aorta (I77.819) Active confirmed Problem Tomography - chest abnormal (751254858) Abnormal CT scan, chest (R93.89) Active confirmed Problem Left atrial dilatation (594127289) Left atrial dilatation (I51.7) Active confirmed Problem Chronic vascular insufficiency of intestine (005576592) 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 Problem Protein malnutrition (93673532) Protein malnutrition (E46) Active confirmed Vital Signs Heart Rate 105 /min 08/07/2025 Blood pressure diastolic 60 mm Hg 08/07/2025 Height 65 in 08/07/2025 Blood pressure systolic 102 mm Hg 08/07/2025 Weight 123.6 lbs 08/07/2025 BMI 20.57 kg/m2 08/07/2025 Encounters Encounter Location Date Provider Diagnosis [facility] [address] [place] [id number] 09/05/2024 Shauna Almanzar Pneumonia of left lo wer lobe due to infectious organism J18.9 ; Interstitial lung disease J84.9 ; Chronic respiratory failure with hypoxia J96.11 ; 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 ; Autoimmune hepatitis K75.4 ; Protein malnutrition E46 and Caloric malnutrition E46 [facility] [facility] [address] [place] [id number] 09/16/2024 Trinity Wilsonond Strep pharyngitis J0 2.0 and Oral candidiasis B37.0 [facility] [address] [facility] [address] [place], [place] [id number] 10/09/2024 Shauna Almanzar Lesion of adrenal gl and E27.9 ; Essential hypertension I10 ; Type 2 diabetes mellitus without complication E11.9 ; Acquired hypothyroidism E03.9 ; Hearing loss, bilateral H91.93 ; Cochlear implant status Z96.21 ; Protein malnutrition E46 ; Chronic obstructive pulmonary disease, unspecified COPD type J44.9 and Encounter for immunization Z23 [facility] [address] [place], [place] [id number] 11/03/2024 Emir Nardin Acute cough R05.1 [facility] [address] [place], [place] [id number] 11/07/2024 Shauna Almanzar Type 2 diabetes aquilino itus without complication E11.9 ; Acquired hypothyroidism E03.9 and Hereditary hemochromatosis E83.110 [facility] [address] [place] [id number] 01/09/2025 Shauna Almanzar Type 2 diabetes aquilino itus without complication E11.9 ; Hereditary hemochromatosis E83.110 ; Cochlear implant status Z96.21 ; Chronic obstructive pulmonary disease, unspecified COPD type J44.9 ; Essential (primary) hypertension I10 ; Protein malnutrition E46 and Gross hematuria R31.0 [facility] [address] [place] [id number] 01/15/2025 Shauna Almanzar Interstitial lung disease J84.9 ; 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 ; Autoimmune hepatitis K75.4 ; Protein malnutrition E46 ; Cochlear implant status Z96.21 ; Type 2 diabetes mellitus without complication E11.9 and Hematuria R31.9 [facility] [address] [place] [id number] 02/11/2025 Emir Nardin Type 2 diabetes aquilino itus with hyperglycemia E11.65 ; 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 ; Gross hematuria R31.0 and Body mass index (BMI) of 19.0 to 19.9 in adult Z68.1 [facility] [address] [place] [id number] 03/13/2025 Doretha Crowdanna Drug interaction Z78 .9 [facility] [address] [id number] 04/02/2025 Shauna Almanzar Type 2 diabetes aquilino itus without complication E11.9 ; 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 ; Cholestatic hepatitis K75.89 ; retirement (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.4 ; 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 ; Generalized weakness R53.1 and BMI 20.0-20.9, adult Z68.20 [facility] [address] [id number] 04/30/2025 Shauna Almanzar Type 2 diabetes aquilino itus with hyperglycemia E11.65 ; 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 ; Adrenal [...] adult Z68.22 and Cochlear implant status Z96.21 [facility] [address] [id number] 06/09/2025 Emir Berger Generalized weakness R53.1 ; Anorexia R63.0 and Vitamin D deficiency E55.9 [facility] [address] [id number] 07/03/2025 Shauna Almanzar Hypokalemia E87.6 ; Essential hypertension I10 ; Chronic fatigue R53.82 ; Protein malnutrition E46 ; Type 2 diabetes mellitus with hyperglycemia E11.65 ; retirement (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.4 ; 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 ; 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 and BMI 21.0-21.9, adult Z68.21 [facility] [address] [id number] 08/07/2025 Shauna Almanzar Type 2 diabetes aquilino itus without complication E11.9 ; Acquired hypothyroidism E03.9 ; Hereditary hemochromatosis E83.110 ; Cochlear implant status Z96.21 ; Interstitial lung disease J84.9 ; 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 and 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 [facility] [address] [place], [place] [id number] 09/04/2024 J Rogerio Yohan [facility] [address] [place] [id number] 09/08/2024 J Rogerio Yohan [facility] [address] [place] [id number] 09/10/2024 J Rogerio Yohan [facility] [address] [place] [id number] 09/15/2024 J Rogerio Yohan [facility] [address] [place] [id number] 09/16/2024 J Rogerio Yohan [facility] [address] [place] [id number] 09/25/2024 J Rogerio Yohan [facility] [address] [place] [id number] 11/03/2024 Emir Nardin [facility] [address] [place], [place] [id number] 01/12/2025 J Rogerio Yohan [facility] [address] [place] [id number] 05/12/2025 J Rogerio Yohan [facility] [address] [place] [id number] 05/12/2025 J Rogerio Yohan [facility] [address] [place] [id number] 06/04/2025 J Rogerio Yohan [facility] [address] [place] [id number] 06/10/2025 Emir Nardin [facility] [address] [place] [id number] 06/10/2025 J Rogerio Yohan [facility] [address] [place], [place] [id number] 06/23/2025 Shauna Almanzar Colon cancer screeni Z12.11 [facility] [address] [place] [id number] 07/06/2025 Shauna Almanzar [facility] [address] [place] [id number] 07/07/2025 Shauna Almanzar [facility] [address] [place] [id number] 07/16/2025 Shauna Almanzar [facility] [address] [place], [place] [id number] 08/27/2025 Shauna Almanzar Assessments Encounter Date Diagnosis (ICD [...] to resume use of his CGM 02/11/2025 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 insulin (ICD-10 - Z79.4) [...] E11.9) 08/07/2025 Acquired hypothyroidism (ICD-10 - E03.9) 06/09/2025 Vitamin D deficiency (ICD-10 - E55.9) [...] 08/07/2025 Cochlear implant status (ICD-10 - Z96.21) 04/30/2025 Essential (primary) hypertension (ICD-10 - I10) 07/03/2025 Type 2 diabetes mellitus with hyperglycemia (ICD-10 - E11.65) 04/02/2025 retirement (current) use of insulin (ICD-10 - [...] Cochlear implant status (ICD-10 - Z96.21) 07/03/2025 retirement (current) use of insulin (ICD-10 - Z79.4) 04/02/2025 Histoplasmosis (ICD-10 - B39.9) 04/30/[address] scan, chest (ICD-10 - R93.89) 08/07/2025 Interstitial lung disease (ICD-10 - J84.9) 08/07/2025 retirement (current) use of insulin (ICD-10 - [...] Merida er, 11/12/2025 01:30:00 PM, [address], [place], [id number], Insurance Providers Payer Name Payer Address Payer Phone Subscriber Number Group Number Insured Name Patient Relationship to Insured Coverage Start Date Coverage End Date [facility] [address] [address] [place] [id number] HERMILA GOLDEN Self - patient is the insured Medical (General) History Medical History History ICD Code Seasonal Allergies Kidney Stones Steatohepatitis hemachromatosis,(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 Smalls and Dr. Thakur Atrial dysrrhythmia, see notes 2012 hearing loss 2013, hearing aids Impaired fasting glucose Gets yearly eye exams, [facility] Questionable Dx Lupus erythematosus 2016 Granuloma [...]
[2025-09-04 11:52] LABS: PHA INR Fingerstick 1.1 (0.9-1.1)
[2025-09-04 13:19] LABS: Iron 47 ug/dL (49-181)
[2025-09-04 13:31] LABS: Total Iron Binding Capacity 378 ug/dL (261-462)
[2025-09-04 13:56] LABS: Ferritin 11.1 ng/ml (17.9-464)
== END 2025-09-04 11:54 ==
LOC: ACC 10:48
PROVIDERS: Internal Medicine Medical Oncology; PCP Family Medicine; Visit Provider Nurse Practitioner
DX: D72.819 Decreased white blood cell count, unspecified (principal); E83.119 Hemochromatosis, unspecified; I48.0 Paroxysmal atrial fibrillation; Z79.01 Long term (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 of anticoagulants
CPT/HCPCS: 36415; 82728; 83540; 83550; 85610; 99211; G0463

== ENCOUNTER 2025-09-17 09:09 | Outpatient (RCR) | payer MEDICARE, SELFPAY ==
--- NOTE | 2025-09-17 09:56 | HMH.PTOPEV ---
PT Evaluation Rehab PT Outpatient Evaluation Start: 09/17/25 09:12 Freq: Status: Active Protocol: Document 09/17/25 09:12 KRYSTINA (Rec: 09/17/25 09:56 KRYSTINA [id number]) E-signed By Jase Copeland, PT Outpatient Therapy Subjective History Subjective History Pt is a 75 yom who is referred to [facility] outpatient PT with a referring diagnosis of balance deficits. Pt reports that he began to have generalized weakness in his legs and arms after he received a diagnosis of histoplasmosis. Pt reports that this has been ongoing for approximately 2 years. Pt reports that he is currently taking steroids for the cirrhosis of the liver. Pt reports that he feels very weak. Pt reports that he would rate his balance as fair. Pt reports that he does have a history of falls. Pt reports that he has had approximately 3 falls in the past year. Pt reports that he occasionally uses a walker when he has to walk long distances, but he usually does not use anything. Pt reports that stairs give him a lot of difficulty. Pt reports that he also is unable to get into his tall pickup truck or into his tractors, which would be his main goal with PT. Pt also reports that he is unable to place a gallon of milk into the fridge, which would be another goal of PT. Pt denies pain. 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 Immunosuppressed status Insomnia Elevated troponin Respiratory failure Colon polyps Melena Community acquired pneumonia On anticoagulant therapy History of atrial flutter Supraventricular tachycardia Palpitations Atrial fibrillation and flutter Atrial flutter Atrial flutter with rapid ventricular response Afib Ex-smoker for more than 1 year Hyperlipidemia associated with type 2 diabetes mellitus Atrial fibrillation with rapid ventricular response Fibrosis of lung Fatigue Steroid dependence Hemochromatosis Hemochromatosis Chronic respiratory failure with hypoxia History of smoking 30 or more pack years ILD (interstitial lung disease) Dyspnea on exertion Cataract Granuloma annulare Diastolic dysfunction Encounter for monitoring flecainide therapy PAF (paroxysmal atrial fibrillation) New diagnosis of No cancer in past 12 months? Chief Complaint Weakness Prior Functional None Limitations Current Functional Lifting,Housework,Standing,Squatting,Walking,Stairs, Limitations Balance Symptom Description Constant and Continuous Level of pain today 0 (0-10) Pain scale - at its 0 best (0-10) Pain scale - at its 0 worst (0-10) PT Balance Eval Gait Assessment Gait Deviations Shuffling step gait Noted: Dynamic Balance Timed Up and Go (TUG 18 ) in seconds: Five Times Sit-to- 28 Stand (5xSTS) in seconds: Madelyn (NAHUN)-MMT Hip Flexors Right 3 Hip Flexors Left 3 Knee Extensors Right 3+ Knee Extensors Left 3+ Ankle Dorsiflexors 4 Right Ankle Dorsiflexors 4 Left Ankle Plantarflexors 4 Right Ankle Plantarflexors 4 Left Dynamic Gait Index Test Protocol Gait Level Surface Moderate Impairement Query Text: Instructions: Walk at your normal speed from here to the next chichi (20'). Grading: Chichi the lowest category that applies. Change in Gait Speed Mild Impairment Query Text: Instructions: Begin walking at your normal pace (for 5') , when I tell you go , walk as fast as you can (for 5'). When I tell you slow , walk as slowly as you can ( for 5'). Grading: Chichi the lowest category that applies. Gait with Horizontal Moderate Impairment Head Turns Query Text: Instructions: Begin walking at your normal pace. When I tell you to look right , keep walking straight, but turn you head to the right. Keep looking to the right unit I tell you look left , then keep walking straight and turn your head to the left. Keep your head to the left until I tell you look straight , then keep walking straight, but return you head to the center. Grading: Chichi the lowest category that applies. Gait with Vertical Mild Impairment Head Turns Query Text: Instructions: Begin walking at your normal pace. When I tell you to look up , keep walking staight, but tip your head up. Keep looking up until I tell you to look down , then keep walking straight and tip your head down. Keep your head down until I tell you look straight , then keep walking straight, but return your head to the center. Grading: Chichi the lowest category that applies. Gait and Pivot Turn Moderate Impairment Query Text: Instructions: Begin walking at your normal pace. When I tell you turn and stop , turn as quickly as you can to face the opposite direction and stop. Grading: Chichi the lowest category that applies. Step Over Obstacle Moderate Impairment Query Text: Instructions: Begin walking at your normal speed. When you come to the shoebox, step over it, not around it and keep walking. Grading: Chichi the lowest category that applies. Step Around Mild Impairment Obstacles Query Text: Instructions: Begin walking at normal speed. When you come to the first cone (about 6' away) , walk around the right side of it. When you come to the second cone (6' past first cone), walk around it to the left. Grading: Chichi the lowest category that applies. Steps Moderate Impairment Query Text: Instructions: Walk up these stairs as you would at home. At the top, turn around and walk down . Grading: Chichi the lowest category that applies. Scoring Dynamic Gait Index 11 Score Miscellaneous Dx PT Eval Objective Objective UE strength: - 2/5 to shoulder abd, shoulder flexion - 3/5 to elbow flexion/extension Outpatient Therapy Assessment Impairments Problems/ Impaired Strength,Impaired Endurance,Impaired Transfers Impairmments ,Impaired Gait Pattern,Impaired Household Care,Impaired Stair Climbing,Impaired Stepping on Uneven Surface, Impaired Squatting,Impaired Balance,Impaired TUG Time, Impaired Self Care/Self Management Prognosis Rehab Potential Good Comment w HEP compliance Clinical Impression Consistent with Yes Diagnosis Consistent with Impaired Balance Additional details: Pt with impaired balance and generalized weakness, secondary to a histoplasmosis diagnosis. PT Patient Goals PT Patient Goals PT Short Term In 4 weeks: Patient Goals 1. Pt will improve bilateral hip and knee strength to at least 3+/5 grossly upon MMT to better facilitate functional movement patterns, such as standing from a chair. 2. Pt will improve bilateral shoulder flexion, abduction and elbow flexion/extension strength to 3+/5 to prepare for lifting milk jug into refrigerator. 3. Pt will improve 5xSTS test to 24s to decrease fall risk, demonstrate improved endurance and to better align with age appropriate norms. 4. Pt will improve TUG time to 16s to demonstrate improved functional mobility and decreased fall risk. 5. Pt will improve DGI score to 13 to demonstrate a decreased fall risk and improved in-home and community mobility. 6. Pt will be able to stand for 15 minutes in order to prepare a small meal in his kitchen without requiring a rest break. 7. Pt will report HEP adherence by completing her prescribed HEP 4-5x/week. 8. Pt will be able to ascend/descend 6 stairs with hand -rail in order to be able to go to orthodoxy independently . PT Intermediate Patient In 8 weeks: Goals 1. Pt will improve bilateral hip and knee strength to at least 4/5 grossly upon MMT to better facilitate functional movement patterns, such as standing from a chair. 2. Pt will improve 5xSTS score to 11s to decrease fall risk, demonstrate improved endurance and to better align with age appropriate norms. 3. Pt will improve TUG time to 13s to demonstrate improved functional mobility and decreased fall risk. 4. Pt will improve DGI score to 16 to demonstrate a decreased fall risk and improved in-home and community mobility. 5. Pt will be able to stand for 30 minutes in order to prepare a larger meal in her kitchen without requiring a rest break. 6. Pt will be able to navigate a flight of stairs with a hand-rail, in order to demonstrate improved community mobility. 7. In 8 weeks: 1. Pt will improve bilateral hip and knee strength to at least 4/5 grossly upon MMT to better facilitate functional movement patterns, such as standing from a chair. 2. Pt will improve 5xSTS score to 11s to decrease fall risk, demonstrate improved endurance and to better align with age appropriate norms. 3. Pt will improve TUG time to 13s to demonstrate improved functional mobility and decreased fall risk. 4. Pt will improve DGI score to 16 to demonstrate a decreased fall risk and improved in-home and community mobility. 5. Pt will be able to stand for 30 minutes in order to prepare a larger meal in her kitchen without requiring a rest break. 6. Pt will be able to navigate a flight of stairs with a hand-rail, in order to demonstrate improved community mobility. 7/ In 8 weeks: 1. Pt will improve bilateral hip and knee strength to at least 4/5 grossly upon MMT to better facilitate functional movement patterns, such as standing from a chair. 2. Pt will improve 5xSTS score to 11s to decrease fall risk, demonstrate improved endurance and to better align with age appropriate norms. 3. Pt will improve TUG time to 13s to demonstrate improved functional mobility and decreased fall risk. 4. Pt will improve DGI score to 16 to demonstrate a decreased fall risk and improved in-home and community mobility. 5. Pt will be able to stand for 30 minutes in order to prepare a larger meal in her kitchen without requiring a rest break. 6. Pt will be able to navigate a flight of stairs with a hand-rail, in order to demonstrate improved community mobility. 7. Pt will improve bilateral shoulder flexion, abduction and elbow flexion/extension strength to 4-4+/ 5 to prepare for lifting milk jug into refrigerator. 8. Pt will be able to climb into his truck/tractor independently in order to demonstrate improved independence with home activities. Outpatient Therapy Plan of Care Treatment Plan May Include Therapeutic Exercise Yes Including Home Exercise Program Manual Therapy Yes Techniques Neuromuscular Re- Yes education Therapeutic Yes Activities to Return to Previous Functional/Work Level Gait Training Yes ADL/Self Care Yes Education Thermal Modalities Yes Electrical Yes Stimulation Manual Lymphatic Yes Drainage Eval/Re-Eval Yes Frequency Times per week 2 Duration Number of Weeks 8 Addendums This patient is a No candidate for social or vocational rehab ? Patient/Guardian Yes verbally acknowledges understanding of treatment program and consents to further treatment? Patient/Guardian Yes verbally acknowledges understanding of diagnosis, prognosis and goals for treatment? Eval Complexity PT Charges 69778 - High Complexity Shoulder/Elbow Eval Shoulder Objective Measurements Elbow Objective Measurements PHYSICIAN CERTIFICATION: I certify the specified therapy services for Jose Luis Trevino are required, authorized, and reviewed every 30 days.
== END 2025-09-17 23:59 | disposition home or self-care (01) ==
LOC: PT 09:09
PROVIDERS: PCP Family Medicine; Visit Provider Family Medicine
DX: R26.89 Other abnormalities of gait and mobility (principal); R26.81 Unsteadiness on feet; K74.60 Unspecified cirrhosis of liver; Z91.81 History of falling
CPT/HCPCS: 97163

== ENCOUNTER 2025-09-18 11:06 | Outpatient (CLI) | payer MEDICARE, SELFPAY ==
--- OUTSIDE RECORDS SUMMARY | 2025-01-09 06:45 | XMS_ITS ---
Author Organization [facility] Address [address] [facility] [address] [id number] Care Team Providers Care Manager Sales Training Name Role Phone Shauna Almanzar Primary Care Provider Allergies Allergen (clinical drug ingredient) Drug/Non Drug Allergy documented on EMR Reaction Allergy Type Onset Date Status cephalexin Cephalexin Unknown Drug Allergy Activ e Results Component Value Reference Range Notes Urinalysis - Inhouse Reviewed date:01/09/2025 01:37:28 PM Interpretation: Performing Lab: Notes/Report: Color/Clarity red/cloudy Leuk Neg Nitrite Neg Urobili 3.2 Protein 2+ pH 6.0 Blood 3+ Sp. Gr. 1.015 Ketone Neg Bili Neg Gluc 2+ CBC Venipuncture (in house) Reviewed date:01/09/2025 01:37:42 PM Interpretation: Performing Lab: Notes/Report: wbc 2.0 3.5 - 10 lymph 33.1 15 - 50 mid 6.8 2 - 15 gran 60.1 35 - 80 rbc 4.42 3.5 - 5.5 hgb 13.7 11.5 - 16.5 hct 39.5 35 - 55 mcv 89.4 75 - 100 mch 31.0 25 - 35 mchc 34.7 31 - 38 platlet 276 100 - 400 P-Comprehensive Metabolic Pa tarah (CMP) Reviewed date:01/12/2025 11:34:53 AM Interpretation:gluc 144, bun 30, Cr 1.35, gfr 55, alk phos 229 Performing Lab: Notes/Report: Test performed by [employer] [facility] , [address], [place] [address] Kristian Trevino MD, Environmental Designer CLIA: [id number] Sodium 138 135-145 mmol/L Potassium 4.3 3.5-5.3 mmol/L [place] 100 97-108 mmol/L CO2 27 22-32 mmol/L Glucose 144 65-99 mg/dL BUN 30 8-23 mg/dL Creatinine 1.35 0.70-1.30 mg/dL Calcium 9.4 8.6-10.4 mg/dL eGFR by Creatinine 55 >59 mL/min/1.73m2 Protein 7.6 6.0-8.3 g/dL Albumin 4.1 3.5-5.3 g/dL Alkaline Phosphatase 229 40-129 IU/L ALT (SGPT) 17 <5-55 IU/L AST (SGOT) 19 <5-46 IU/L Bilirubin, Total 0.7 <0.2-1.2 mg/dL A/G Ratio 1.2 1.1-2.5 Ultrasound : Bladder scan Reviewed date:04/20/2025 10:25:30 AM Interpretation:does not want Performing Lab: Notes/Report: does not want REASON FOR VISIT 2 month check Medications Medication SIG (Take, Route, Frequency, Duration) Notes Start Date End Date Status Xarelto 20 MG 1 tablet with food Orally Once a day; Duration: 30 day(s) Active metFORMIN HCl 500 MG 1 tablet with a igor l Orally Twice a day Active Ursodiol 500 MG 1 tablet Orally twic e a day Active Mycophenolate Mofetil 500 MG 1 tablet Orally Twice a day; Duration: 30 day(s) Active Pravastatin Sodium 20 MG 1 tab(s) orally once a day; Duration: 90 days Active Aspirin Adult Low Dose 81 MG 1 tab(s) orally once a day Not-Taking Mirtazapine 15 mg TAKE ONE TABLET BY MOUTH EVERY DAY AT BEDTIME; Duration: 30 Active Nystatin 748243 UNIT/ML 5 ml Mouth/Throa t Twice a day; Duration: 14 day(s) 09/16/2024 Active Levothyroxine Sodium 50 MCG 1 tablet in the morning on an empty stomach Orally Once a day; Duration: 90 days Active Ezetimibe 10 mg TAKE ONE TABLET BY MOUTH EVERY DAY; Duration: 30 Active Jardiance 10 mg 1 tablet Orally ever y other day; Duration: 90 days Active HumaLOG Mix 75/25 (75-25) 100 UNIT/ML 26 units subcutaneously twice a day ac Active Albuterol Sulfate (2.5 MG/3ML) 0.083% 3 mL as needed Inhalation Three times a day Active Cholecalciferol 25 MCG (1000 UT) 1 capsule Orally Once a day; Duration: 30 day(s) Active Budesonide 3 MG 3 capsules Orally at bedtime Active Vital Signs Blood pressure systolic 110 mm Hg 01/10/20 25 Blood pressure diastolic 70 mm Hg 025 Heart Rate 89 /min 01/09/2025 Height 65 in 01/09/2025 Weight 119.0 lbs 01/09/2025 BMI 19.80 kg/m2 01/09/2025 Encounters Encounter Location Date Provider Diagnosis [facility] [address] [facility] 36 [facility] [address] [place], [place] [id number] 01/09/2025 Shauna Almanzar Type 2 diabetes aquilino itus without complication E11.9 ; Hereditary hemochromatosis E83.110 ; Cochlear implant status Z96.21 ; Chronic obstructive pulmonary disease, unspecified COPD type J44.9 ; Essential (primary) hypertension I10 ; Protein malnutrition E46 and Gross hematuria R31.0 Assessments Encounter Date Diagnosis (ICD Code) Assessment Notes Treatment Notes Treatment Clinical Notes Section Notes 01/09/2025 Type 2 diabetes mellitus without complication (ICD-10 - E11.9) 01/09/2025 Hereditary hemochromatosis (ICD-10 - E83.110) 01/09/2025 Cochlear implant status (ICD-10 - Z96.21) 01/09/2025 Chronic obstructive pulmonary disease, unspecified COPD type (ICD-10 - J44.9) 01/09/2025 Essential (primary) hypertension (ICD-10 - I10) 01/09/2025 Protein malnutrition (ICD-10 - E46) 01/09/2025 Gross hematuria (ICD-10 - R31.0) Plan Of Treatment Next Appt Details Follow Up: 1 Week, Reason: Provider Name:Shauna fofana, 11/12/2025 01:30:00 PM, [address] [facility] 36 [facility], [address], [place], [id number], Progress Notes * HERMILA GOLDEN: [birth year] (75 yo M)Acc No.[id number]:01/09/2025 Progress Notes Patient: HERMILA BUCIO Provider: Shauna Almanzar M.D. :1950 A ge:74 Y S ex:Male Date:01/09/2025 Address:[address] [place] [address] [address], [facility] Subjective: * Chief Complaints: * 1 . 2 month check. * HPI: C ardiology: The patient is here for a check up on Hypertension and Diabetes. Pt states he is doing very well and denies any new concerns. Pt is not fasting. 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 He has noticed blood in his urine since that time. Pt states he had an A1C done on 12/16/24 at 7.6%. 74 year old male presents with c/o Short of Breath w ith exertion. Denies : Chest Pain. D enies : Dizziness. D enies : Palpitations. 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 No malignancy. He is being referred to Dr. Vernon, infectious disease. G astroenterology: See note, Dr. Crawford. 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 Alkaline phosphatase has declined to 152 from greater than 300. * ROS: D ERMATOLOGY: no R gurmeet. n o H darius. G ASTROENTEROLOGY: no N ausea. n o V omiting. n o D iarrhea.? U ROLOGY: no D ifficulty urinating. n o B lood in urine. 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 Smalls and Dr. Thakur, Atrial dysrrhythmia, see [facility] notes 2011, Hearing loss 2013, hearing aids, Impaired fasting glucose, Gets yearly eye exams, 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 * Surgical History: L T Knee Surgery 1999, Tonsillectomy , Heart Cath 02/2012, Granuloma Annulare 2011,2013, cochlear implant on the right 08/11/2015, Colonoscopy 2007, cochlear implant, reimplant 06/14/2017, ablasion, cardiac 05/2019, cochlear implant, left side 04/07/2020, Cataracts 09/2021. * Hospitalization/Major Diagno stic Procedure: f all 1984, chest pains , tachycardia 02/2012, Scalp Infection 02/23/2016, implant removal 01/17/2017, pneumonia 06/05-06/2010. * Family History: F ather: 91 yrs. M other: , cancer. M aternal Grand Father: heart disease. P aternal aunt: stroke. M aternal aunt: brain tumor. 2 son(s) , 1 daughter(s) - healthy. . * Social History: C URRENT TOBACCO USE S moking Status: Patient does NOT smoke. C affeine: yes, frequency:. Marital Status: . Past smoking status: no, quit smoking 2004 after smoking 30 years. Alcohol: Type: , Frequency:occasional ,Years: , Determination:. * Medications: T aking Xarelto 20 MG Tablet 1 tablet with food Orally Once a day , Taking Mycophenolate Mofetil 500 MG Tablet 1 tablet Orally Twice a day , Taking Ursodiol 500 MG Tablet 1 tablet Orally twice a day , Taking metFORMIN HCl 500 MG Tablet 1 tablet with a meal Orally Twice a day , Taking Cholecalciferol 25 MCG (1000 UT) Capsule 1 capsule Orally Once a day , Taking Budesonide 3 MG Capsule Delayed Release Particles 3 capsules Orally at bedtime , Taking Albuterol Sulfate (2.5 MG/3ML) 0.083% Nebulization Solution 3 mL as needed Inhalation Three times a day , Taking HumaLOG Mix 75/25 (75-25) 100 UNIT/ML Suspension 26 units subcutaneously twice a day ac , Taking Jardiance 10 mg Tablet 1 tablet Orally every other day , Taking Levothyroxine Sodium 50 MCG Tablet 1 tablet in the morning on an empty stomach Orally Once a day , Taking Ezetimibe 10 mg Tablet TAKE ONE TABLET BY MOUTH EVERY DAY , Taking Pravastatin Sodium 20 MG Tablet 1 tab(s) orally once a day , Taking Nystatin 349189 UNIT/ML Suspension 5 ml Mouth/Throat Twice a day , Taking Mirtazapine 15 mg Tablet TAKE ONE TABLET BY MOUTH EVERY DAY AT BEDTIME , Not-Taking Aspirin Adult Low Dose 81 MG Tablet Delayed Release 1 tab(s) orally once a day , Discontinued Megestrol Acetate 40 MG/ML Suspension 10 mL Orally Once a day , Discontinued Promethazine-DM 6.25-15 MG/5ML Syrup 5 ml as needed Orally every 6 hrs , Medication List reviewed and reconciled with the patient * Allergies: C ephalexin. Objective: * Vitals: W t:119.0, Temp:98.3, BP:110/70, HR:89, O2 Sat:97% on RA, Nurse:JAY, Ht: 65, BMI:19.80. * Examination: G eneral Examination: General Appearance: N AD, note weight gain. He looks much better.. H EENT: u nremarkable. O ral cavity: n o lesions, mucosa moist and WNL, no erythema. N whitney: s upple, no lymphadenopathy. C hest: n ormal shape and expansion. H eart: R SR, S3 present vs fixed splitting S2. L ungs: d ecreased breath sounds. A bdomen: soft and nontender, no organomegaly or masses. N eurologic Exam: I ntact, gait normal. S kin: n ormal, no rash. P eripheral pulses: n ormal. B ack: mild dorsal kyphosis. E xtremities: n o leg edema. Assessment: * Assessment: 1. T ype 2 diabetes mellitus without complication - E11.9 (Primary) 2 . H ereditary hemochromatosis - E83.110 3 . C ochlear implant status - Z96.21 ? 4 . C hronic obstructive pulmonary disease, unspecified COPD type - J44.9 5. E ssential (primary) hypertension - I10 6 . P rotein malnutrition - E46 7 . G ross hematuria - R31.0 Plan: * Treatment: Value Reference Range A /G Ratio 1.2 1.1-2.5 - * A lbumin 4.1 3.5-5.3 - g/dL * A lkaline Phosphatase 229 H 40-129 - IU/L * A LT (SGPT) 17 <5-55 - IU/L * A ST (SGOT) 19 <5-46 - IU/L * B ilirubin, Total 0.7 <0.2-1.2 - mg/dL * B UN 30 H 8-23 - mg/dL * C alcium 9.4 8.6-10.4 - mg/dL * C hloride 100 97-108 - mmol/L * C O2 27 22-32 - mmol/L * C reatinine 1.35 H 0.70-1.30 - mg/dL * G lucose 144 H 65-99 - mg/dL * P otassium 4.3 3.5-5.3 - mmol/L * S odium 138 135-145 - mmol/L * P rotein 7.6 6.0-8.3 - g/dL * e GFR by Creatinine 55 L >59 - mL/min/1.73m2 * Catherine Kathleen 01/12/2025 11:34 :46 AM >See phone encounter ?LAB: CBC Venipuncture (in house) (Collection Date & Time - 01/09/2025)* Value Reference Range w bc 2.0 3.5 - 10 * l ymph 33.1 15 - 50 * m id 6.8 2 - 15 * g ran 60.1 35 - 80 * r bc 4.42 3.5 - 5.5 * h gb 13.7 11.5 - 16.5 * h ct 39.5 35 - 55 * m cv 89.4 75 - 100 * m ch 31.0 25 - 35 * m chc 34.7 31 - 38 * p latlet 276 100 - 400 * Diane Kirby 01/09/2025 1:05:1 0 PM > Provider reviewed results while patient in office. 2.?Gross hematuria?LAB: Urinalysis - Inhouse (Collection Date & Time - 01/09/2025)* Value Reference Range C olor/Clarity red/cloudy * L euk Neg * N itrite Neg * U robili 3.2 * P rotein 2+ * p H 6.0 * B lood 3+ * S p. Gr. 1.015 * K etone Neg * B chriss Neg * G manish 2+ * Fatimah Sotelo L 01/09/2025 12:3 8:04 PM > 1+ Provider reviewed results while patient in office. ?Imaging: Ultrasound : Bladder scan (Performed Date - 04/20/2025)?does not want* Genoveva Grigsby 01/09/2025 03:27 :25 PM >no auth required; CPT code 65628; faxed to [facility] Anel Magallanes 04/20/2025 10:24:55 AM EDT >pt denied ultrasound * Procedure Codes: G 2211 Complex e/[place], [address] [place], [address] Urinalysis, no micro, 35076 CBC WITH AUTO DIFF, 65023 VENIPUNCT, ROUTINE*, G8752 MOST RECENT SYSTOLIC BP < 140MM HG, G8754 MOST RECENT DIASTOLIC BP < 90MM HG * Follow Up: 1 Week * Images: Billing Information: * Visit Code: 19373 Office Visit, Est Pt., Level 4. * Procedure Codes: G2211 Complex e/[place]. [address] [place]. [address] Urinalysis, no micro. 35967 CBC WITH AUTO DIFF. 51412 VENIPUNCT, ROUTINE*. G8752 MOST RECENT SYSTOLIC BP < 140MM HG. G8754 MOST RECENT DIASTOLIC BP < 90MM HG. * Electronic signature of Shauna Almanzar MD on 09/18/2025 at 11:11 AM EST Sign off status: Pending * Provider: Shauna Almanzar M.D. Date: 0 01/09/2025 Generated for Printi ng/Faxing/eTransmitting on: 1 11/18/2024 11:11 AM EST History and Physical Notes * HPI (History of Present Illness) Category Sub-Category Detail Notes Category Not es Cardiology Short of Breath with exertion Chest Pain Palpitations Dizziness Examination Category Sub-Category Detail Notes Category Not es General Examination HEENT: unremarkable Heart: RSR, S3 present vs f ixed splitting S2 Lungs: decreased breath margaret nds Abdomen: soft and nontender, no organomegaly or masses Extremities: no leg edema General Appearance: NAD, note weight gai n. He looks much better. Skin: normal, no rash Neurologic Exam: Intact, gait normal Neck: supple, no lymphaden opathy Oral cavity: no lesions, mucosa m oist and WNL, no erythema Peripheral pulses: normal Back: mild dorsal kyphosis Chest: normal shape and exp ansion
--- OUTSIDE RECORDS SUMMARY | 2025-01-15 10:00 | XMS_ITS ---
Author Organization [facility] Address [address] [phone] Care Team Providers Care Rehabilitation Specialist Name Role Phone Shauna Almanzar Primary Care Provider Allergies Allergen (clinical drug ingredient) Drug/Non Drug Allergy documented on EMR Reaction Allergy Type Onset Date Status cephalexin Cephalexin Unknown Drug Allergy Activ e Results Component Value Reference Range Notes Urinalysis - Inhouse Reviewed date:01/18/2025 02:07:53 PM Interpretation: Performing Lab: Notes/Report: Color/Clarity red/cloudy Leuk Neg Nitrite Neg Urobili 3.2 Protein 2+ pH 5.5 Blood 3+ Sp. Gr. 1.015 Ketone Neg Bili 1+ Gluc 2+ REASON FOR VISIT 1 week f/u Medications Medication SIG (Take, Route, Frequency, Duration) Notes Start Date End Date Status Ezetimibe 10 mg TAKE ONE TABLET BY MOUTH EVERY DAY; Duration: 30 Active Mirtazapine 15 mg TAKE ONE TABLET BY MOUTH EVERY DAY AT BEDTIME; Duration: 30 Active Pravastatin Sodium 20 mg TAKE ONE TABLET BY MOUTH EVERY DAY; Duration: 30 Active Nystatin 100397 UNIT/ML 5 ml Mouth/Throa t Twice a day; Duration: 14 day(s) 09/16/2024 Active Aspirin Adult Low Dose 81 MG 1 tab(s) orally once a day Not-Taking Levothyroxine Sodium 50 MCG 1 tablet in the morning on an empty stomach Orally Once a day; Duration: 90 days Active HumaLOG Mix 75/25 (75-25) 100 UNIT/ML 26 units subcutaneously twice a day ac Active Jardiance 10 mg 1 tablet Orally ever y other day; Duration: 90 days Active Budesonide 3 MG 3 capsules Orally at bedtime Active Albuterol Sulfate (2.5 MG/3ML) 0.083% 3 mL as needed Inhalation Three times a day Active Ursodiol 500 MG 1 tablet Orally twic e a day Active metFORMIN HCl 500 MG 1 tablet with a igor l Orally Twice a day Active Xarelto 20 MG 1 tablet with food Orally Once a day; Duration: 30 day(s) Active Mycophenolate Mofetil 500 MG 1 tablet Orally Twice a day; Duration: 30 day(s) Active Cholecalciferol 25 MCG (1000 UT) 1 capsule Orally Once a day; Duration: 30 day(s) Active Vital Signs Blood pressure systolic 92 mm Hg 01/16/20 25 Blood pressure diastolic 60 mm Hg 025 Heart Rate 100 /min 01/15/2025 Height 65 in 01/15/2025 Weight 119.8 lbs 01/15/2025 BMI 19.93 kg/m2 01/15/2025 Encounters Encounter Location Date Provider Diagnosis MED-Sasha 1210 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 ; Autoimmune hepatitis K75.4 ; Protein malnutrition E46 ; Cochlear implant status Z96.21 ; Type 2 diabetes mellitus without complication E11.9 and Hematuria R31.9 Assessments Encounter Date Diagnosis (ICD Code) Assessment Notes Treatment Notes Treatment Clinical Notes Section Notes 01/15/2025 Interstitial lung disease (ICD-10 - J84.9) 01/15/2025 Adrenal abnormality (ICD-10 - E27.9) 01/15/2025 Autoimmune hepatitis (ICD-10 - K75.4) 01/15/2025 Protein malnutrition (ICD-10 - E46) 01/15/2025 Cochlear implant status (ICD-10 - Z96.21) 01/15/2025 Type 2 diabetes mellitus without complication (ICD-10 - E11.9) 01/15/2025 Hematuria (ICD-10 - R31.9) Plan Of Treatment Next Appt Details Follow Up: 2 Months, Reason: Provider Name:Shauna fofana, 11/12/2025 01:30:00 PM, [address], [address], [place], [place], [phone], Progress Notes * HERMILA GOLDENOB: [birth year] (75 yo M)Acc No.[id number]:01/15/2025 Progress Notes Patient: HERMILA BUCIO Provider: Shauna Almanzar M.D. :1950 A ge:74 Y S ex:Male Date:01/15/2025 Address:[address] [place] [address] [address], [facility] Subjective: * Chief Complaints: * 1 . 1 week f/u. * HPI: U rology: The pt is here for a follow up on gross hematuria. Pt states he is still seeing some blood in his urine. Pt states he saw infectious disease (Dr. Vernon) yesterday and had some labs done. Pt states they recommended Itraconazole. This will necessitate switch to Warfarin with monitoring. 74 year old male presents with c/o hematuria. Denies : fever. C ardiology: Recent GFR was 55 down from 70, but BUN was also elevated at 30. * ROS: D ERMATOLOGY: no R gurmeet. [...] Smalls and Dr. 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 * Surgical [...] stomach Orally Once a day , Taking Nystatin 143346 UNIT/ML Suspension 5 ml Mouth/Throat Twice a day , Taking Mirtazapine 15 mg Tablet TAKE ONE TABLET BY MOUTH EVERY DAY AT BEDTIME , Taking Pravastatin Sodium 20 mg Tablet TAKE ONE TABLET BY MOUTH EVERY DAY , Taking Ezetimibe 10 mg Tablet TAKE ONE TABLET BY MOUTH EVERY DAY , Not-Taking Aspirin Adult Low Dose 81 MG Tablet Delayed Release 1 tab(s) orally once a day , Medication List reviewed and reconciled with the patient * Allergies: C ephalexin. Objective: * Vitals: W t:119.8, Temp:98.3, BP:92/60, HR:100, O2 Sat:98% on RA, Nurse:JAY, Ht: 65, BMI:19.93. * Examination: G eneral Examination: General Appearance: [...] o leg edema. Assessment: * Assessment: 1. I nterstitial lung disease - J84.9 (Primary) 2 . A drenal abnormality - E27.9 3 . A utoimmune hepatitis - K75.4 4 . P rotein malnutrition - E46 5 . C ochlear implant status - Z96.21 6 . T ype 2 diabetes mellitus without complication - E11.9 7 . H ematuria - R31.9 ? Plan: * Treatment: Value Reference Range C olor/Clarity red/cloudy * L euk Neg * N itrite Neg * U robili 3.2 * P rotein 2+ * p H 5.5 * B lood 3+ * S p. Gr. 1.015 * K etone Neg * B chriss 1+ * G manish 2+ * Fatimah Sotelo 01/15/2025 3:1 2:34 PM > 1+ Provider reviewed results while patient in office. * Procedure Codes: G 2211 Complex e/[place], [address] [place], [address] Urinalysis, no micro, G8752 MOST RECENT SYSTOLIC BP < 140MM HG, G8754 MOST RECENT DIASTOLIC BP < 90MM HG * Follow Up: 2 Months * Images: Billing Information: * Visit Code: 45091 Office Visit, Est Pt., Level 4. * Procedure Codes: G2211 Complex e/[place]. [address] [place]. [address] Urinalysis, no micro. G8752 MOST RECENT SYSTOLIC BP < 140MM HG. G8754 MOST RECENT DIASTOLIC BP < 90MM HG. * Electronic signature of Shauna Almanzar MD on 09/18/2025 at 11:14 AM EST Sign off status: Pending * Provider: Shauna Almanzar M.D. Date: 0 01/15/2025 Generated for Collinsi ng/Fadavidg/eTransmitting on: 1 11/18/2024 11:14 AM EST History and Physical Notes * HPI (History of Present Illness) Category Sub-Category Detail Notes Category Not es Cardiology Recent GFR was 55 down from 70, but BUN was also elevated at 30. Urology hematuria fever Examination Category Sub-Category Detail Notes Category Not [...]
--- OUTSIDE RECORDS SUMMARY | 2025-02-11 09:00 | XMS_ITS ---
Author Organization [facility] Address 1210 [facility] [address] [id number] Care Team Providers Care Senior Officer Name Role Phone Shauna Almanzar Primary Care Provider [phone] Emir Berger Unavailable [phone] Allergies Allergen (clinical drug ingredient) Drug/Non Drug Allergy documented on EMR Reaction Allergy Type Onset Date Status cephalexin Cephalexin Unknown Drug Allergy Activ e REASON FOR VISIT blood sugar Medications Medication SIG (Take, Route, Frequency, Duration) Notes Start Date End Date Status HumaLOG Mix 75/25 (75-25) 100 UNIT/ML 26 units subcutaneously three times a day ac Active Jardiance 10 mg 1 tablet Orally ever y other day; Duration: 90 days Active Mirtazapine 15 mg TAKE ONE TABLET BY MOUTH EVERY DAY AT BEDTIME; Duration: 30 Active Pravastatin Sodium 20 mg TAKE ONE TABLET BY MOUTH EVERY DAY; Duration: 30 Active Ezetimibe 10 mg TAKE ONE TABLET BY MOUTH EVERY DAY; Duration: 30 Active Levothyroxine Sodium 50 mcg TAKE ONE TABLET BY MOUTH EVERY MORNING ON AN EMPTY STOMACH; Duration: 90 Active Mycophenolate Mofetil 500 MG 1 tablet Orally Twice a day; Duration: 30 day(s) Active Ursodiol 500 MG 1 tablet Orally twic e a day Active metFORMIN HCl 500 MG 1 tablet with a igor l Orally Twice a day Active Cholecalciferol 25 MCG (1000 UT) 1 capsule Orally Once a day; Duration: 30 day(s) Active Budesonide 3 MG 3 capsules Orally at bedtime Active Itraconazole 100 MG 1 capsule after a me al Orally Once a day; Duration: 10 day(s) Not-Taking Ipratropium-Albuterol 0.5-2.5 (3) MG/3ML 3 mL as needed Inhalation every 6 hrs Active Warfarin Sodium 6 MG 1 tablet Orally Onc e a day; Duration: 30 day(s) Active Problems Problem Type SNOMED Code ICD Code Onset Dates Problem Status W/U Status Risk Notes Problem Hyperglycemia due to type 2 diabetes mellitus (810928711072134) Type 2 diabetes mellitus with hyperglycemia (E11.65) Active confirmed Problem Long-term current use of insulin (823982089) superintendent container terminal (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 (Z79.4) Active confirmed Vital Signs Blood pressure systolic 110 mm Hg 02/12/20 25 Blood pressure diastolic 62 mm Hg 025 Heart Rate 100 /min 02/11/2025 Height 65 in 02/11/2025 Weight 117.4 lbs 02/11/2025 BMI 19.53 kg/m2 02/11/2025 Encounters Encounter Location Date Provider Diagnosis [facility] [address] [facility] [address] [place] [address], [place] [phone] 02/11/2025 Emir Berger Type 2 diabetes aquilino itus with hyperglycemia E11.65 ; shelter (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.4 ; Gross hematuria R31.0 and Body mass index (BMI) of 19.0 to 19.9 in adult Z68.1 Assessments Encounter Date Diagnosis (ICD Code) Assessment Notes Treatment Notes Treatment Clinical Notes Section Notes 02/11/2025 Type 2 diabetes mellitus with hyperglycemia (ICD-10 - E11.65) Patient needs to resume use of his CGM 02/11/2025 superintendent container terminal (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 (ICD-10 - Z79.4) 02/11/2025 Gross hematuria (ICD-10 - R31.0) Plan follow up with Dr. Lund soon, after he sees ID and GI in the next week 02/11/2025 Body mass index (BMI) of 19.0 to 19.9 in adult (ICD-10 - Z68.1) 02/11/[address] Villarreal in Heme/Onc today about patient. Patient is seeing ID later this week with the plan to resume Itraconazole Plan Of Treatment Medication Medication Name Sig Start Date Stop Date Notes HumaLOG Mix 75/25 (75-25) 100 UNIT/ML 26 units subcutaneously three times a day ac Treatment Notes Assessment Notes Type 2 diabetes mellitus with hyperglyce vika Patient needs to resume use of his CGM Gross hematuria Plan follow up with Dr. Lund soon, after he sees ID and GI in the next week Other Spoke to Dr. Villarreal in Heme/Onc today about patient. Patient is seeing ID later this week with the plan to resume Itraconazole Next Appt Details Follow Up: as scheduled,and prn, Reason: Provider Name:Shauna Merida er, 11/12/2025 01:30:00 PM, 1210 [facility] [address], [address], [place], [place], [address], Progress Notes * HERMILA GOLDENOB: [birth year] (75 yo M)Acc No.[id number]:02/11/2025 Progress Notes Patient: HERMILA BUCIO Provider: Jaden Berger M.D. :1950 A ge:74 Y S ex:Male Date:02/11/2025 Address:[address] [place] [address] [address] , [facility] Pcp:Shauna Almanzar Subjective: * Chief Complaints: * 1 . Blood sugar. * HPI: E ndocrinology: 74 year old male presents with c/o Recent Blood Sugars P t complains of blood sugar being 350+ for at least 10 days. * ROS: D ERMATOLOGY: no R gurmeet. n o H darius. G ASTROENTEROLOGY: no N ausea. n o V omiting. U ROLOGY: no D ifficulty urinating. n o B lood in urine. 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 Smalls and Dr. 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 * Surgical History: L T Knee Surgery [...] ,Years: , Determination:. * Medications: T aking Ipratropium-Albuterol 0.5-2.5 (3) MG/3ML Solution 3 mL as needed Inhalation every 6 hrs , Taking Warfarin Sodium 6 MG Tablet 1 tablet Orally Once a day , Taking Mycophenolate [...] 3 capsules Orally at bedtime , Taking Jardiance 10 mg Tablet 1 tablet Orally every other day , Taking Mirtazapine 15 mg Tablet TAKE ONE TABLET BY MOUTH EVERY DAY AT BEDTIME , Taking Pravastatin Sodium 20 mg Tablet TAKE ONE TABLET BY MOUTH EVERY DAY , Taking Ezetimibe 10 mg Tablet TAKE ONE TABLET BY MOUTH EVERY DAY , Taking Levothyroxine Sodium 50 mcg Tablet TAKE ONE TABLET BY MOUTH EVERY MORNING ON AN EMPTY STOMACH , Taking HumaLOG Mix 75/25 (75-25) 100 UNIT/ML Suspension 26 units subcutaneously twice a day ac , Not-Taking Itraconazole 100 MG Capsule 1 capsule after a meal Orally Once a day , Discontinued Xarelto 20 MG Tablet 1 tablet with food Orally Once a day , Discontinued Albuterol Sulfate (2.5 MG/3ML) 0.083% Nebulization Solution 3 mL as needed Inhalation Three times a day , Discontinued Nystatin 163955 UNIT/ML Suspension 5 ml Mouth/Throat Twice a day , Discontinued Aspirin Adult Low Dose 81 MG Tablet Delayed Release 1 tab(s) orally once a day , Medication List reviewed and reconciled with the patient * Allergies: C ephalexin. Objective: * Vitals: W t:117.4, Temp:98.1, BP:110/62, HR:100, O2 Sat:99% on RA, Nurse:nasra, Ht: 65, BMI:19.53. * Examination: G eneral Examination: General Appearance: N AD. H eart: R SR. L ungs:?clear to auscultation, diminished in both bases. Assessment: * Assessment: 1. T ype 2 diabetes mellitus with hyperglycemia - E11.65 (Primary) 2 . L tonia term (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 - Z79.4 3 . G debbie hematuria - R31.0 ?4. B dl mass index (BMI) of 19.0 to 19.9 in adult - Z68.1 Plan: * Treatment: 2. G debbie hematuria Notes: Plan follow up with Dr. Lund soon, after he sees ID and GI in the next week 3. O thers Notes: Spoke to Dr. Villarreal in Heme/Onc today about patient. Patient is seeing ID later this week with the plan to resume Itraconazole * Procedure Codes: G 2211 Complex e/m visit add on, G8752 MOST RECENT SYSTOLIC BP < 140MM HG, G8754 MOST RECENT DIASTOLIC BP < 90MM HG * Follow Up: a s scheduled,and prn * Images: Billing Information: * Visit Code: 19959 Office Visit, Est Pt., Level 4. * Procedure Codes: G2211 Complex e/m visit add on. G8752 MOST RECENT SYSTOLIC BP < 140MM HG. G8754 MOST RECENT DIASTOLIC BP < 90MM HG. * Electronic signature of Elidia Berger MD on 09/18/2025 at 11:15 AM EST Sign off status: Pending * Provider: Jaden Berger M.D. Date: 0 02/11/2025 Generated for Marissa mendoza/Rei/Khurramitting on: 1 11/18/2024 11:15 AM EST History and Physical Notes * HPI (History of Present Illness) Category Sub-Category Detail Notes Category Not es Endocrinology Recent Blood Sugars Pt complains of blood sugar being 350+ for at least 10 days Examination Category Sub-Category Detail Notes Category Not es General Examination Heart: RSR Lungs: clear to auscultatio n, diminished in both bases General Appearance: NAD
--- OUTSIDE RECORDS SUMMARY | 2025-03-13 09:15 | XMS_ITS ---
Author Organization [facility] Address [address] [facility] [address] [phone] Care Team Providers Care Cutting And Printing Machine Operator Name Role Phone Shauna Almanzar Primary Care Provider Doretha Burns Unavailable [phone] Allergies Allergen (clinical drug ingredient) Drug/Non Drug Allergy documented on EMR Reaction Allergy Type Onset Date Status cephalexin Cephalexin Unknown Drug Allergy Activ e REASON FOR VISIT face is swollen per Alyssa at [facility], possible interaction with budesonide and itraconazole Medications [...] 03/13/2025 Encounters Encounter Location Date Provider Diagnosis [facility] [address] [place] [id number] 03/13/2025 Doretha Burns Drug interaction Z78 .9 [...] 11/12/2025 01:30:00 PM, [address] [facility], [address], [place], [phone], Progress Notes * HERMILA GOLDENOB: [birth year] (75 yo M)Acc No.[id number]:03/13/2025 Progress Notes Patient: Daniele SALAS HERMILA WALDROP Provider: LUCIA [place] :1950 A ge:74 Y S ex:Male Date:03/13/2025 Address:[address] [place], [place] [address] [address], [facility], [facility] Pcp:Shauna Almanzar Subjective: * Chief Complaints: * 1 . face is swollen per Alyssa at [facility], possible interaction with budesonide and itraconazole. 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 * Procedure Codes: G2211 Complex e/m visit add on. * Electronic signature of LUCIA Dean on 09/18/2025 at 11:14 AM EST Sign off status: Pending * Provider: LUCIA [place] Date: 0 03/13/2025 Generated for Marissa mendoza/Rei/Johnsmitting on: 1 11/18/2024 11:14 AM EST History [...]
--- OUTSIDE RECORDS SUMMARY | 2025-04-02 09:15 | XMS_ITS ---
Author Organization [facility] Address [address] [facility] [address] [phone] Care Team Providers Care Skin Piler Name Role Phone Shauna Almanzar Primary Care [...] Ca 8.5, prot 5.5 Performing Lab: Notes/Report: CLIA: [id number] Kristian Trevino MD, Cotton [employer] [address] [facility] , [address], [place] [address] Test performed by [facility] [employer] [place] Sodium 139 135-145 mmol/L Potassium 3.7 3.5-5.3 [...] 695 Performing Lab: Notes/Report: Test performed by [facility] [address] [place] [address] , [address], [place] [address] Kristian Trevino MD, Cotton Puller CLIA: [id number] Albumin/Creatinine Ratio, Urine 695 0-30 ug/m g [...] Grigsby 05/18/2025 02:47:51 PM > faxed to [facility] PT Referral Priority Routine REASON FOR [...] 04/02/2025 Encounters Encounter Location Date Provider Diagnosis 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 ; Generalized weakness R53.1 and BMI 20.0-20.9, adult Z68.20 Assessments Encounter Date Diagnosis (ICD Code) Assessment Notes Treatment Notes Treatment Clinical Notes Section Notes 04/02/2025 Type 2 diabetes mellitus without complication (ICD-10 - E11.9) 04/02/2025 Adrenal abnormality (ICD-10 - E27.9) 04/02/2025 Cholestatic hepatitis (ICD-10 - K75.89) 04/02/2025 detention (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 (ICD-10 - Z79.4) [...] Name:Shauna Merida er, 11/12/2025 01:30:00 PM, [address] [facility] 36 [facility], [address], [place], [place], [id number], Progress Notes * HERMILA GOLDENOB: [birth year] (75 yo M)Acc No.[id number]:04/02/2025 Progress Notes Patient: HERMILA BUCIO Provider: Shauna Almanzar M.D. :1950 A ge:75 Y S ex:Male Date:04/02/2025 Address:[address] [place] [address] , [facility] Subjective: * Chief Complaints: * 1 . 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 B CA 20.0-20.9, adult - Z68.20? Plan: * Treatment: [...] G 2211 Complex e/[place], [address] GLYCATED HEMOGLOBIN TEST, Modifiers: QW , G8752 [...] * Images: Billing Information: * Visit Code: 34706 Office Visit, Est Pt., Level 4. * Procedure Codes: G2211 Complex e/[place]. [address] GLYCATED HEMOGLOBIN TEST. Modifiers: QW G8752 MOST RECENT SYSTOLIC BP < 140MM HG. G8754 MOST RECENT DIASTOLIC BP < 90MM HG. 3046F HEMOGLOBIN A1C LEVEL > 9.0%. G8420 BMI<30 AND >=22 CALC & DOCU. 1036F TOBACCO NON-USER. 3017F COLORECTAL CA SCREEN DOC REV. * Electronic signature of Shauna Almanzar MD on 09/18/2025 at 11:12 AM EST Sign off status: Pending * Provider: Shauna Almanzar M.D. Date: 0 04/02/2025 Generated for Marissa mendoza/Rei/eTransmitting on: 1 11/18/2024 11:12 AM EST History and Physical Notes * [...]
--- OUTSIDE RECORDS SUMMARY | 2025-04-30 09:00 | XMS_ITS ---
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) [facility] Referring Provider First Name Shauna Beatty [...] W/U Status Risk Notes Problem Cardiac arrhythmia (554284841) Cardiac arrhythmia, unspecified cardiac arrhythmia type (I49.9) Active confirmed Problem Chronic vascular insufficiency of intestine (058326005) 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 Vital Signs Blood pressure systolic 130 mm Hg 04/30/20 25 Blood pressure diastolic 62 mm Hg 025 Heart Rate 85 /min 04/30/2025 Height 65 in 04/30/2025 Weight 133.8 lbs 04/30/2025 BMI 22.26 kg/m2 04/30/2025 Encounters Encounter Location Date Provider [facility] [address] [phone] 04/30/2025 Shauna Almanzar Type 2 diabetes aquilino itus with hyperglycemia E11.65 ; USP (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.4 ; Adrenal [...] mellitus with hyperglycemia (ICD-10 - E11.65) 04/30/2025 USP (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 (ICD-10 - [...] Name:Shauna Merida er, 11/12/2025 01:30:00 PM, 1210 [facility] 36 [facility], [address] , [place], [place], [id number], Progress Notes * HERMILA GOLDENOB: [birth year] (75 yo M)Acc No.[id number]:04/30/2025 Progress Notes Patient: Daniele CEDRICKRAJIVHERMILA Provider: Shauna Almanzar M.D. :1950 A ge:75 Y S ex:Male Date:04/30/2025 Address:[address] [facility] [address] , [facility] Subjective: * Chief Complaints: * 1 . [...] stable. * ROS: D ERMATOLOGY: no R gurmete. n o H darius. G ASTROENTEROLOGY: no [...] Impaired fasting glucose, Gets yearly eye exams, [facility], Questionable Dx Lupus erythematosus 2015, [...] artery stenosis - K55.1 1 2. B MO 22.0-22.9, adult - Z68.22 1 3. C [...] * Images: Billing Information: * Visit Code: 42704 Office Visit, Est Pt., Level 4. * [...] 04/30/2025 Generated for Marissa mendoza/Rei/eTransmitting on: 1 11/18/2024 [...]
--- OUTSIDE RECORDS SUMMARY | 2025-06-09 05:00 | XMS_ITS ---
Author Organization [facility] Address 1210 [facility] 36 [facility] [address] [place] [phone] Care Team Providers Care Media Reporter Name Role Phone Shauna Almanzar Primary Care Provider Emir Berger Unavailable [phone] Allergies Allergen (clinical drug ingredient) Drug/Non Drug [...] 232 Performing Lab: Notes/Report: Test performed by [email or web address] [address] [place] [address] , [address], [place] [address] Kristian Trevino MD, Auto Air Conditioning Apprentice CLIA: [id number] Sodium 141 135-145 mmol/L Potassium 3.0 3.5-5.3 [...] Interpretation:23 Performing Lab: Notes/Report: Test performed by [facility] [address] [facility], [place] [address] Kristian Trevino MD, Auto Air Conditioning Apprentice CLIA: [id number] Creatine Kinase 23 20-200 U/L H-Z-Rurgtvvw Protein (CRP) Reviewed date:06/10/2025 08:30:05 AM Interpretation:4.00 Performing Lab: Notes/Report: Test performed by [facility] [address] [place] , [place] [address] Kristian Trevino MD, Auto Air Conditioning Apprentice CLIA: [id number] C-Reactive Protein (CRP) 4.00 <0.50 mg/dL P-Sed Rate (ESR) Reviewed date:06/10/2025 08:30:05 AM Interpretation:31 Performing Lab: Notes/Report: Test performed by [facility] [address] [facility], [place] [id number] Kristian Trevino MD, Auto Air Conditioning Apprentice CLIA: [id number] Erythrocyte Sedimentation Ra te (ESR), Automated 31 <21 mm/hr P-TSH reflex to FT4 Reviewed date:06/10/2025 08:30:05 AM Interpretation:Normal Performing Lab: Notes/Report: Test performed by [facility] [address] [place] [address] , [address], [place] [address] Kristian Trevino MD, Auto Air Conditioning Apprentice CLIA: [id number] TSH reflex to FT4 3.44 0.43-5.25 mU/L P-Vitamin D 25-Hydroxy Reviewed date:06/10/2025 08:30:05 AM Interpretation:Normal Performing Lab: Notes/Report: Test performed by [facility] [address] [place] [address] , [address], [place] [address] Kristian Trevino MD, Auto Air Conditioning Apprentice CLIA: [id number] Vitamin D 25-Hydroxy 57.8 30.0-100.0 ng/mL Interpretation [...] Duration: 90 days Active FreeStyle Leroy 3 [place] - as directed 05/12/2025 Not-Taking Levothyroxine Sodium [...] Status W/U Status Risk Notes Problem Anorexia (74091173) Anorexia (R63.0) Active confirmed Vital Signs Blood pressure systolic 112 mm Hg 06/09/20 25 Blood pressure diastolic 68 mm Hg 025 Heart Rate 64 /min 06/09/2025 Height 65 in 06/09/2025 Weight 130 lbs 06/09/2025 BMI 21.63 kg/m2 06/09/2025 Encounters Encounter Location Date Provider Diagnosis [facility] [address] [place] [address] 36 [facility] [address] [place] [id number] 06/09/2025 Emir Berger Generalized weakness R53.1 ; [...] Merida er, 11/12/2025 01:30:00 PM, 1210 [facility] 36 [facility], [address], [place], [id number], Progress Notes * HERMILA GOLDENOB: [birth year] (75 yo M)Acc No.[id number]:06/09/2025 Progress Notes Patient: HERMILA BUCION Provider: Jaden Berger M.D. :1950 A ge:75 Y S ex:Male Date:06/09/2025 Address:[address] [place] [address], [id number] Pcp:Shauna Almanzar Subjective: * Chief Complaints: * [...] portal: [email or web address]...[email or web address], type 2 diabetes, [facility] [...] mouth daily , Not-Taking FreeStyle Leroy 3 [place] - Device as directed , Not-Taking FreeStyle [...] AM EDT > See phone encounter ?LAB: G-M-Uyaluamk Protein (CRP) (Collection Date & Time - [...] to FT4 3.44 0.43-5.25 - mU/L * NevineNmo 06/10/2025 08:2 9:56 AM EDT > See [...] G 2211 Complex e/[place], [address] CBC WITH AUTO DIFF, 1036F TOBACCO NON-USER, G8783 BP SCR PRFRM RCMDD DEFIND SCR INTVL, G8752 MOST RECENT SYSTOLIC BP < 140MM HG, G8754 MOST RECENT DIASTOLIC BP < 90MM HG * Follow Up: v ia phone to report test results * Images: Billing Information: * Visit Code: 33698 Office Visit, Est Pt., Level 4. * Procedure Codes: G2211 Complex e/[place]. [address] CBC WITH AUTO DIFF. 1036F TOBACCO NON-USER. G8783 BP SCR PRFRM RCMDD DEFIND SCR INTVL. G8752 MOST RECENT SYSTOLIC BP < 140MM HG. G8754 MOST RECENT DIASTOLIC BP < 90MM HG. * Electronic signature of Elidia Berger MD on 09/18/2025 at 11:13 AM EST Sign off status: Pending * Provider: Jaden Berger M.D. Date: 0 06/09/2025 Generated for Marissa mendoza/Rei/Khurramitting on: 1 11/18/2024 11:13 AM EST History and Physical Notes * [...]
--- OUTSIDE RECORDS SUMMARY | 2025-07-03 06:45 | XMS_ITS ---
Author Organization [facility] Address 1210 [facility] [address] [id number] Care Team Providers Care Water Quality Control Engineer Name Role Phone Shauna Almanzar Primary [...] 175 Performing Lab: Notes/Report: Test performed by [facility]0 [facility] , [address], [place] [address] Kristian Trevino MD, Utility Systems Repairer Operator CLIA: [id number] Sodium 140 135-145 mmol/L Potassium 4.1 3.5-5.3 mmol/L Chloride 105 97-108 mmol/L CO2 22 20-32 mmol/L Glucose 175 65-99 mg/dL BUN 12 8-23 mg/dL Creatinine 1.26 0.70-1.30 mg/dL Calcium 9.4 8.6-10.4 mg/dL eGFR by Creatinine 60 >59 mL/min/1.73m2 P-Cortisol, Random Reviewed date:07/07/2025 10:18:42 AM Interpretation: Normal Performing Lab: Notes/Report: Test performed by [facility] [address] [place] [address] , [address], [place] [address] Kristian Trevino MD, Utility Systems Repairer Operator CLIA: [id number] Cortisol, Random 7.7 CORTISOL REFERENCE RANGE AM Serum: 6.0-18.4 ug/dL PM Serum: 2.7-10.5 ug/dL P-Iron Reviewed date:07/07/2025 10:18:42 AM Interpretation:28 Performing Lab: Notes/Report: Test performed by [facility] [address] [place] [address] , [address], [place] [address] Kristian Trevino MD, Utility Systems Repairer Operator CLIA: [id number] Iron 28 59-158 ug/dL P-TSH Reviewed date:07/07/2025 10:18:42 AM Interpretation:6.42 Performing Lab: Notes/Report: Test performed by [facility] [address] [place] [address] , [address], [place] [address] Kristian Trevino MD, Utility Systems Repairer Operator CLIA: [id number] TSH 6.42 0.43-5.25 mU/L REASON FOR VISIT [...] Duration: 90 days Active FreeStyle Leroy 3 [place] - as directed 05/12/2025 Not-Taking Mirtazapine 15 [...] 07/03/2025 Encounters Encounter Location Date Provider 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 :1950 A ge:75 Y S ex:Male Date:07/03/2025 Address:[address] [place] [address] , [facility] Subjective: * Chief Complaints: * 1 . [...] Impaired fasting glucose, Gets yearly eye exams, [facility], Questionable Dx Lupus erythematosus 2015, Granuloma [...] at bedtime , Not-Taking FreeStyle Leroy 3 [place] - Device as directed , Not-Taking FreeStyle [...] drenal abnormality - E27.9 9 . B [place] 21.0-21.9, adult - Z68.21? Plan: * Treatment: [...] G 2211 Complex e/[place], [address] CBC WITH AUTO DIFF, 06065 GLYCATED HEMOGLOBIN TEST, Modifiers: QW , 95330 CAPILLARY BLOOD DRAW, 1036F TOBACCO NON-USER, G8950 PREHTN/HTN BP DOC INDCD F/U DOC, G8752 MOST RECENT SYSTOLIC BP < 140MM HG, G8754 MOST RECENT DIASTOLIC BP < 90MM HG, 3044F HG A1C LEVEL LT 7.0% * Follow Up: 4 Weeks * Images: Billing Information: * Visit Code: 42010 Office Visit, Est Pt., Level 4. * Procedure Codes: G2211 Complex e/[place]. [address] CBC WITH AUTO DIFF. 89168 GLYCATED HEMOGLOBIN TEST. Modifiers: QW 11633 CAPILLARY BLOOD DRAW. 1036F TOBACCO NON-USER. G8950 PREHTN/HTN BP DOC INDCD F/U DOC. G8752 MOST RECENT SYSTOLIC BP < 140MM HG. G8754 MOST RECENT DIASTOLIC BP < 90MM HG. 3044F HG A1C LEVEL LT 7.0%. * Electronic signature of Shauna Almanzar MD on 09/18/2025 at 11:15 AM EST Sign off status: Pending * Provider: Shauna Almanzar M.D. Date: 0 07/03/2025 Generated for Marissa mendoza/Rei/Fernyranangie on: 11/18/2024 11:15 AM EST History and Physical [...]
--- OUTSIDE RECORDS SUMMARY | 2025-07-07 10:40 | XMS_ITS | Encounter Summary ---
Author Organization [facility] Address [address] [place] [address] Care Team Providers Care Events Traffic Controller Name Role Phone Rocky Almanzar MD Primary Care Provider [phone] Reason for Referral * Consultation (Routine) - Authorized Specialty Diagnoses / Procedures Referred By Contac t Referred To Contact Diagnoses Type 2 diabetes mellitus with hyperglycemia, with long-term current use of insulin Hemochromatosis, unspecified hemochromatosis type Acquired hypothyroidism Histoplasmosis Angelica Allan DO [address] [address] Phone: tel: fax: Referral ID Status Reason Start Date Expiration Date V isits Requested Visits Authorized [id number] Authorized 07/07/2025 01/06/2027 1 1 Encounter Details Date Type Department Care Team (Late st Contact Info) Description 07/07/2025 11:40 AM EDT Office Visit [facility] Endocrinology [address] [place] [phone] Angelica Allan DO [address] [facility] [address] [place] [address] Type 2 diabetes mellitus with hyperglycemia, with long-term current use of insulin (CMS/HCC) (Primary Dx); Hemochromatosis, unspecified hemochromatosis type; Acquired hypothyroidism; Histoplasmosis; Elevation of adrenocorticotropic hormone (ACTH) Social History Tobacco Use Types Packs/Day Years [...] Sign Reading Time Taken Comments Blood Pressure 102/64 07/07/2025 11:45 AM EDT Pulse 103 07/07/2025 11:45 AM EDT Temperature - - Respiratory Rate - - Oxygen Saturation - - Inhaled Oxygen Concentration - - Weight 57.4 kg (126 lb 8.7 oz) 07/07/2025 11:45 AM EDT Height 165.1 cm (5' 5 ) 07/07/2025 11:45 AM EDT Body Mass Index 21.06 07/07/2025 11:45 AM EDT documented in this encounter Miscellaneous Notes * Clinician Note - Bev Barclay - 07/07/2025 11:40 AM EDT Spoke with pt about connecting [facility] to [facility]. Pt does have ahmet on phone, but has not created profile or used a login to be able to share with [facility]. Provided pt with instructions on how to share once he gets home and sets up profile with password. Provided pt with Adult educators phone number should he have additional questions. Bev Barclay, MS, RD, LD, CDCES, MLDE * Addendum Note - Angelica Allan DO - 07/07/2025 11:40 AM EDTAddended by: ANGELICA ALLAN on: 07/10/2025 12:13 PM Modules accepted: Orders * Progress Notes - Angelica Allan DO - 07/07/2025 11:40 AM EDT Subjective Jose Luis Trevino is a 75 y.o. male who presents for an follow up evaluation of Diabetes Mellitis Type 2 and hypothyroidism. Current symptoms/problems include none. His medical history is notable for hemochromatosis and cirrhosis, AF, and HLD. He reports last August he reports that his GI had started him on Budesonide 9 mg but has been reducing his doses. He stopped all steroids in March and he reports he feels very weak and decreased strength. He sees GI at [place]. He had been having glucoses >350. 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 HPI Diabetes Current treatment includes oral agents and insulin injections 75/25 Humalog-26 units BID but has been off for 3 weeks due to normal BG values Metformin 500 mg BID Jardiance 10 mg daily Known diabetic complications: none Compliance at present is estimated to be good. Cardiovascular risk factors: advanced age (older than 55 for men, 65 for women), diabetes mellitus,dyslipidemia, and male gender Is he on MOUSTAPHA inhibitor or angiotensin II receptor andrew? No Is he on a StatinNo longer taking any cholesterol medicine Current diet: {diet habits:Decreased appetite so eating less recently Home blood sugars: Unable to download today but reviewed his Leroy on his phone and his 14 day TIR was 88% Date of Last Eye Exam: 02/2025 What type of sensor do you have?: Freestyle Leroy 3 When was your last flu shot?: fall 2023 When did you have labs last?: 03/2025 Thyroid Last Visit: 12/16/24 Diagnosis: hypothyroidism Current Medications: Levothyroxine 50 mcg daily Compliance: good Other Treatments: NA Most Recent thyroid labs: Lab Results Component Value Date TSH 3.34 05/23/2024 FREET4 1.5 05/23/2024 Thyroid Antibody Testing: No results found for: TPO , THYROGLOBAB , TRAB , TSI Radiation History: None Thyroid Surgery Hx: None Review of Systems Constitutional: Positive for fatigue and unexpected weight change. Eyes: Negative for visual disturbance. Respiratory: Negative for shortness of breath. Cardiovascular: Negative for chest pain. Gastrointestinal: Positive for nausea. Negative for vomiting. Endocrine: + Hair loss Allergic/Immunologic: Positive for immunocompromised state. Neurological: Positive for dizziness and weakness. Negative for numbness. Objective Physical Exam Constitutional: Appearance: Normal appearance. HENT: Head: Normocephalic and atraumatic. Right Ear: External ear normal. Left Ear: External ear normal. Nose: Nose normal. Mouth/Throat: Mouth: Mucous membranes are moist. Eyes: General: No scleral icterus. Cardiovascular: Rate and Rhythm: Normal rate and regular rhythm. Pulmonary: Effort: Pulmonary effort is normal. No respiratory distress. Breath sounds: Normal breath sounds. Skin: General: Skin is warm and dry. Neurological: Mental Status: He is alert and oriented to person, place, and time. Psychiatric: Mood and Affect: Mood normal. Thought Content: Thought content normal. Lab Review Glucose, Plasma (mg/dL) Date Value 03/16/2025 368 (H) 01/14/2025 163 (H) 05/23/2024 206 (H) 05/18/2023 227 (H) 02/20/2022 146 (H) POCT Hemoglobin A1C Date Value 07/07/2025 6.7 % 12/16/2024 7.6 % 05/23/2024 9.5 08/22/2021 8.0 % (A) 01/13/2021 8.4 10/15/2020 7.8 CO2, Plasma (mmol/L) Date Value 05/23/2024 23 05/18/2023 24 02/20/2022 26 BUN, Plasma (mg/dL) Date Value 03/16/2025 32 (H) 01/14/2025 28 (H) 05/23/2024 27 (H) 05/18/2023 22 02/20/2022 14 Creatinine, Plasma (mg/dL) Date Value 03/16/2025 0.95 01/14/2025 1.35 (H) 05/23/2024 1.16 05/18/2023 0.97 02/20/2022 1.04 Assessment/Plan Diagnoses and all orders for this visit: Type 2 diabetes mellitus with hyperglycemia, with long-term current use of insulin ([facility]) (Primary) - POCT glycosylated hemoglobin (Hb A1C) - Cancel: TSH Reflex FT4; Future - Cancel: Lipid panel; Future - Cancel: Albumin-creatinine ratio, urine, random; Future - Albumin-creatinine ratio, urine, random; Future - Lipid panel; Future - Follow Up [facility]; Future - metFORMIN (Glucophage) 500 MG tablet; TAKE ONE TABLET BY MOUTH TWICE DAILY --TAKE WITH FOOD-- Hemochromatosis, unspecified hemochromatosis type - Follow Up [facility]; Future Acquired hypothyroidism - Cancel: TSH Reflex FT4; Future - TSH; Future - T4, free; Future - Follow Up [facility]; Future Histoplasmosis - Cortisol; Future - ACTH; Future - Follow Up [facility]; Future Type 2 Diabetes Mellitus, controlled, without known complications -A1C was 6.7% -CGM reviewed and notable for TIR 88% over the past two weeks (without insulin use) -Current regimen of Metformin 500 mg BID and Jardiance 10 mg daily and has not been using insulin for 3 weeks -They are due for labs PLAN: -Do not resume insulin at this time given controlled BG levels -Concern for possible AI which may explain lower BG levels (discussed below) -Continue Metformin and Jardiance for now -Discussed if BG consistently >200, recommend resuming 75/25 Humalog at 10 units BID and callingclinic for further titration -Instructed to NOT use Lantus in addition to pre-mixed insulin as this can lead to hypoglycemia -CDE met with patient to help set up Leroy account for future visits -Due for labs which have been ordered 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 -Current regimen of Levothyroxine 50 mcg daily -Reports good compliance -Labs due now PLAN: -Will check TSH and FT4 today -Continue current dosing of Levothyroxine and adjust, if needed, pending labs 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 -Notes being diagnosed with Histoplasmosis and CT imaging concerning for adrenal gland involvement -He was previously on Budesonide and felt better (was ordered by GI) but we discussed little systemic absorption -Now reports muscle weakness, fatigue, and decreased appetite PLAN: -Check 8 AM cortisol and ACTH level -Will obtain results of CT abdomen and pelvis for review and timing of follow up adrenal imaging Hemochromatosis -Chronic -Follows with GI -Recent labs showed normalized LFT and ALP PLAN: -Management per GI RTC in 6 months or sooner pending labs The following Diabetes education was reviewed: []SBGM to evaluate dose needs []Insulin coverage with carbohydrate intake []Site rotation [] Exercise impact on glucose levels []Driving safety related to diabetes []Sick day management []Ketone testing []Over treatment of hypoglycemia [x] Hypoglycemia management []Call-in line use []Insulin pump pros and cons [x]Sensor home use []Pump class offerings []Christina phenomena []Somogyi effect [] Alcohol related to diabetes []Benefits of written records [x]Pre-meal Bolusing [x]Daily foot care [x] Healthy diet and regular exercise [x]Long-term complications related to poor diabetes management [] Injection timing related to changes in activity/exercise I personally spent a total of 45 minutes on this encounter. This time includes face to face with patient, counseling and discussion and/or coordination of care. Electronically signed by: Angelica Allan DO [facility] [address] [place]. [address] PHONE [phone] FAX: [phone] Post Visit Addendum: Labs reviewed. FLP noted LDL mildly elevated at 110 and TG 489 (given less than 500 can hold off onfibrate especially with prior high LFT). LUIS was elevated but unable to find prior abnormal one so can plan to repeat but likely need ACEi/ARB in the future. His ACTH is high and cortisol was 8 so needs ACTH stimulation testing. Called and discussed with patient and his . 07/21/25 Reviewed ACTH stimulation test. ACTH slightly high but cortisol reached 21 at 60 minutes. No current adrenal insufficiency. Discussed with that it could be his ACTH level is high due to adrenalsworking harder related to Histoplasmosis and to notify us if he develops dizziness, low BP, N/V, etc and we can repeat his levels. Component Latest Ref Rng 07/20/2025 Cortisol Before 10am: 3.7 - 19.4. After 5pm: 2.9 - 17.3 ug/dL 8.20 ACTH 7.2 - 63 pg/mL 68.2 (H) Cortisol,Time=30 Before 10am: 3.7 - 19.4. After 5pm: 2.9 - 17.3 ug/dL 18.30 Cortisol Time=60 Before 10am: 3.7 - 19.4. After 5pm: 2.9 - 17.3 ug/dL 21.00 Legend: (H) High documented in this encounter Plan of Treatment Upcoming Encounters Date Type Department Care Team (Late st Contact Info) Description 01/05/2026 9:40 AM EST Office Visit [facility] Endocrinology [address] [place] [phone] Angelica Allan DO [address] [place] [phone] 01/05/2026 11:00 AM EST Office Visit [facility] Eye [place] [address], [address] [place] [address] Vivian Macias S, OD [address] [place] [address] Scheduled Orders Name Type Priority Associated Diagnoses Orde r Schedule Cortisol Lab Routine Histoplasmosis Expected: 07/07/2025 (Approximate), Expires: 07/07/2026 ACTH Lab Routine Histoplasmosis Expected: 07/07/2025 (Approximate), Expires: 07/07/2026 Albumin-creatinine ratio, urine, random Lab Routine Type 2 diabetes mellitus with hyperglycemia, with long-term current use of insulin ([facility]) Expected: 07/07/2025 (Approximate), Expires: 07/07/2026 Lipid panel Lab Routine Type 2 diabetes mellitus with hyperglycemia, with long-term current use of insulin ([facility]) Expected: 07/07/2025 (Approximate), Expires: 07/07/2026 TSH Lab Routine Acquired hypothyroidism Expected: 07/07/2025 (Approximate), Expires: 07/07/2026 T4, free Lab Routine Acquired hypothyroidism Expected: 07/07/2025 (Approximate), Expires: 07/07/2026 Scheduled Referrals Name Type Priority Associated Diagnoses Orde r Schedule Follow Up [facility] Outpatient Referral Routine Type 2 diabetes mellitus with hyperglycemia, with long-term current use of insulin ([facility]) Hemochromatosis, unspecified hemochromatosis type Acquired hypothyroidism Histoplasmosis Expected: 01/04/2026, Expires: 01/08/2027 documented as of this encounter Procedures Procedure Name Priority Date/Time Associated Diagnosis Comments POCT GLYCOSYLATED HEMOGLOBIN (HGB A1C) Routine 07/07/2025 12:03 PM EDT Type 2 diabetes mellitus with hyperglycemia, with long-term current use of insulin ([facility]) documented in this encounter Results * CORTISOL, 60 (07/20/2025 2:40 PM EDT) Cortisol Time=60 21.00 Before 10am: 3.7 - 19.4. After 5pm: 2.9 - 17.3 ug/dL 07/20/2025 8:20 PM EDT [facility] Comment: Testing performed on [employer] Fuel[employer], standardized against PRISON Reference Standard concentration values assigned by LC-MS/MS and verified by BCR 192 and BCR 193 certified reference materials. Expected Response: 30-60 minutes post cosyntropin (ACTH)-stimulation: Cortisol >= 14.6 ug/dL A peak cortisol concentration <14.6 ug/dL 30-60 mins post-cosyntropin (ACTH)-stimulation supports a biochemical diagnosis of adrenal insufficiency. Interpretation of results should be made in conjunction with clinical signs and symptoms. Blood Venous blood specimen / Unknown Venipuncture / Unknown 07/20/2025 2:40 PM EDT 07/20/2025 4:08 PM EDT us Angelica Allan DO LAB BLOOD ORDERABLES Final Result [facility] [address] [place] [address] * Cortisol, 30 (07/20/2025 2:03 PM EDT) Cortisol,Time=30 18.30 Before 10am: 3.7 - 19.4. After 5pm: 2.9 - 17.3 ug/dL 07/20/2025 8:19 PM EDT [facility] Comment: Testing performed on Robert Fueler, standardized against PRISON Reference Standard concentration values assigned by LC-MS/MS and verified by BCR 192 and BCR 193 certified reference materials. Expected Response: 30-60 minutes post cosyntropin (ACTH)-stimulation: Cortisol >= 14.6 ug/dL A peak cortisol concentration <14.6 ug/dL 30-60 mins post-cosyntropin (ACTH)-stimulation supports a biochemical diagnosis of adrenal insufficiency. Interpretation of results should be made in conjunction with clinical signs and symptoms. Blood Venous blood specimen / Unknown Venipuncture / Unknown 07/20/2025 2:03 PM EDT 07/20/2025 4:08 PM EDT Angelica Allan DO LAB BLOOD ORDERABLES Final Result Performing Organization Address [facility] Co de Phone Number [facility] [address] [place] [address] * (ABNORMAL) ACTH (07/20/2025 1:28 PM EDT) ACTH 68.2(H) 7.2 - 63 pg/mL 07/20/2025 5:38 PM EDT [facility] Blood Venous blood specimen / Unknown Venipuncture / Unknown 07/20/2025 1:28 PM EDT 07/20/2025 1:42 PM EDT Angelicalorena Allan DO LAB BLOOD ORDERABLES Final Result [facility] [address] [place] [address] * Cortisol, Time=0 (07/20/2025 1:28 PM EDT) Cortisol 8.20 Before 10am: 3.7 - 19.4. After 5pm: 2.9 - 17.3 ug/dL 07/20/2025 8:23 PM EDT [facility] Comment:Testing performed on Robert Fueler, standardized against PRISON Reference Standard concentration values assigned by LC-MS/MS and verified by BCR 192 and BCR 193 certified reference materials. Blood Venous blood specimen / Unknown Venipuncture / Unknown 07/20/2025 1:28 PM EDT 07/20/2025 4:08 PM EDT us Angelica Allan DO LAB REF LAB BLOOD AND FLUID ORD Final Result Performing Organization Address City/[facility]/ZIP Co de Phone Number [facility] [address] [place] [address] * POCT glycosylated hemoglobin (Hb A1C) (07/07/2025 12:03 PM EDT) POCT Hemoglobin A1C 6.7 <5.7% Non-Diabet ic % [facility] Kit Lot Number [id number] [facility] Kit Expiration Date 04/2027 [facility] Blood Venous blood specimen / Unknown 07/07/2025 12:03 PM EDT us Angelica Allan DO POINT OF CARE TEST ENTER/ED IT ORDERABLES Edited Result - Final Performing Organization Address City/[facility] Co de Phone Number [facility] [address] [place] [address] documented in this encounter Visit Diagnoses Diagnosis Type 2 diabetes mellitus with hyperglycemia, with long-term current use of insulin- Primary Hemochromatosis, unspecified hemochromatosis type Acquired hypothyroidism Unspecified hypothyroidism Histoplasmosis Elevation of adrenocorticotropic hormone (ACTH) documented in this encounter Additional Health Concerns Infection Onset Date Last Indicated Resolved Time MRSA 03/30/2021 03/30/2021 Assessment Noted Time A fall risk assessment has been complete d for the patient 07/07/2025 12:00 PM EDT A Body Mass Index follow-up plan has been documented for the patient 07/07/2025 12:40 PM EDT documented as of this encounter Care Teams Events Traffic Controller Relationship Specialty Start Date End Date Rocky Almanzar MD [address] [place] [address] PCP - General 03/18/21 documented as of this encounter
--- OUTSIDE RECORDS SUMMARY | 2025-07-20 12:30 | XMS_ITS | Encounter Summary ---
Author Organization [facility] Address [address] [place] [address] Care Team Providers Care Enrollment Management Director Name Role Phone Rocky Almanzar MD Primary Care Provider [phone] Encounter Details Date Type Department Care Team (Late st Contact Info) Description 07/20/2025 1:30 PM EDT Clinical Support [facility] [address] [place] [address] Social History Tobacco Use Types Packs/Day Years [...] Visit [facility] [address] [place] [address] Melany Rosales DO [address] [place] [address] 01/05/2026 11:00 AM EST Office Visit [facility] [place] [address] [place] [address] Vivian Macias S, OD [address] [place] [address] documented as of this encounter Visit Diagnoses Not on filedocumented in this encounter Administered Medications Inactive Administered Medications - up to 3 most recent administrations Medication Order MAR Action Action Date Dose Rate Site cosyntropin (Cortrosyn) injection 250 mcg 250 mcg, Intramuscular, Once, 1 dose, On 07/11/25 at 0000, RoutineIndications:Elevation of adrenocorticotropic hormone (ACTH) Given 07/20/2025 2:31 PM EDT 250 mcg Left Deltoid documented in this encounter Additional Health Concerns Infection Onset Date Last Indicated Resolved Time 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
--- OUTSIDE RECORDS SUMMARY | 2025-08-07 06:00 | XMS_ITS ---
Author Organization [facility] Address 1210 [facility] [address] [phone] Care Team Providers Care Service Plumber Name Role Phone Shauna Almanzar Primary Care Provider Allergies Allergen (clinical drug ingredient) Drug/Non Drug Allergy documented on EMR Reaction Allergy Type Onset Date Status cephalexin Cephalexin Unknown Drug Allergy Activ e Reason For Referral Reason needs physical and p ulmonary rehab Diagnosis 1 Interstitial lung di sease (J84.9) [facility] Referring Provider First Name Shauna Beatty Referring Provider Last Name Yohan Referring Provider Speciality Family Pra ctice Referred Provider Specialty Physical The rapist General Notes Genoveva Grigsby 2024 01:08:41 PM > faxed to [facility] PT Referral Priority Routine REASON FOR VISIT [...] Orally at bedtime Not-Taking FreeStyle Leroy 3 [place] - as directed 05/12/2025 Not-Taking FreeStyle Leroy [...] 08/07/2025 Encounters Encounter Location Date Provider Diagnosis [facility] [address] [id number] 08/07/2025 Shauna Almanzar Type 2 diabetes aquilino itus without complication E11.9 ; Acquired hypothyroidism E03.9 ; Hereditary hemochromatosis E83.110 ; Cochlear implant status Z96.21 ; Interstitial lung disease J84.9 ; emt intermediate (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.4 and 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 Assessments Encounter Date Diagnosis (ICD Code) Assessment Notes Treatment Notes Treatment Clinical Notes Section Notes 08/07/2025 Type 2 diabetes mellitus without complication (ICD-10 - E11.9) 08/07/2025 Acquired hypothyroidism (ICD-10 - E03.9) 08/07/2025 Hereditary hemochromatosis (ICD-10 - E83.110) 08/07/2025 Cochlear implant status (ICD-10 - Z96.21) 08/07/2025 Interstitial lung disease (ICD-10 - J84.9) 08/07/2025 [facility] (current) use of insulin (ICD-10 - Z79.4) 08/07/2025 Adrenal abnormality (ICD-10 - E27.9) Plan Of Treatment Referrals Referral Date Details 08/07/2025 08/07/2025, needs ph ysical and pulmonary rehab Next Appt Details Follow Up: 3M, Reason: Provider Name:Shauna Merida er, 11/12/2025 01:30:00 PM, [address] [facility] [address], [address], [place], [place], [id number], Progress Notes * HERMILA GOLDENOB: [birth year] (75 yo M)Acc No.[id number]:08/07/2025 Progress Notes Patient: HERMILA BUCIO Provider: Shauna Almanzar M.D. :1950 A ge:75 Y S ex:Male Date:08/07/2025 Address:[address] [place] [address], [place] [id number] Subjective: * Chief Complaints: * 1 . [...] portal: [email or web address]...[email or web address], type 2 diabetes, followed at [facility], 06/05/2019 CT: healing of R lung infection w some residual fibrosis, scaring.Sm R pleural eff, L pleural thickening, known cholelithiasis, see 01/2020 [place], Covid vaccine x2 Moderna, Nov and Dec 2020, [place] My Chart, user name: [email or web address] Passw: [email or web address], bilateral iridectomies Sep 2021, Histoplasmosis. [...] bedtime , Not- Taking FreeStyle Leroy 3 [place] - Device as directed , Not-Taking FreeStyle [...] * Images: Billing Information: * Visit Code: 97452 Office Visit, Est Pt., Level 4. * [...] M.D. Date: Generated for Collinsi ng/Veronicag/eTransmitting on: 11/18/2024 11:14 AM EST History and Physical [...]
--- OUTSIDE RECORDS SUMMARY | 2025-08-10 10:12 | XMS_ITS ---
Author Organization [facility] Address [address] [place] [address] [place] [address] Phone Care Team Providers Care Dental Aide Name Role Phone Sukumar CUEVAS, Rocky Griggs [ ] Conditions or Problems No information available. Medications Medication Instructions Start Date Stop Date Generic Name [facility] Provider warfarin warfarin Rocky Patino MD potassium citrate (replacement) 99 mg capsule potassium citrate [id number] Lulú Ciro Medications Administered No information available. Allergies, Adverse Reactions, Alerts No information available. Results Date Name Value Unit Range Flag Description Office Visit: Office Visit: 4 MEDS REVIEW Done Documenta tion of current medications (procedure) SMOK STATUS Former smoker Tob acco smoking status Plan of Care Type Date Detail Appointment 11:00 AM Rocky Patino MD, [address] [place] [address], [address], [place], [address], Pending order CMP Pending order CBC with Differe ntial Pending order Voriconazole Lev el Procedures Code Procedure Name Date Entry Date G2211 Complex E&M visit add-on (G2211) CPT-61355 CMP [id number] CBC with Differential 2024 CPT-89068 Voriconazole Level 6 Vital Signs Date Name [...]
--- OUTSIDE RECORDS SUMMARY | 2025-09-18 11:12 | XMS_ITS | Encounter Summary ---
Author Organization Healthcare Address [address] [place] [address] Care Team Providers Care Material Planner Name Role Phone Rocky Almanzar MD Primary Care Provider [phone] Reason for Visit * Reason Comments Med Refill Encounter Details Date Type Department Care Team (Late st Contact Info) Description 09/01/2025 Refill [facility] Endocrinology [address] [place] [address] Jason Romero MD [address] [address] Type 2 diabetes mellitus with [...] 9:40 AM EST Office Visit Hallie [facility] Endocrinology [address] [place] [id number] Melany Rosales, DO [address] [place] [address] 01/05/2026 11:00 AM EST Office Visit [facility] [address], [address] [place] [address] Vivian Macias S, OD [address] [place] [address] documented as of this encounter [...] as of this encounter Care Teams Material Planner Relationship Specialty Start Date End Date Rocky Almanzar MD [address] [place] [address] PCP - General 03/18/21 documented as of this encounter
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
--- OUTSIDE RECORDS SUMMARY | 2025-09-18 11:13 | XMS_ITS | Clinical Summary ---
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 01/09 Echo Mccurdy 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/09 Active 01/09 Echo Mccurdy Acute pulmonary histoplasmosis capsulati Medications Medication Instructions Start Date Stop Date Generic Name FOR[facility] NAMED [facility] Provider warfarin warfarin Rocky Patino MD potassium citrate (replacement) 99 mg capsule potassium citrate 25593894916 Chelse a Ciro VORICONAZOLE 200 MG TABS Take 1 tablet by mouth once a day voriconazole 12403950088 oRcky Patino MD MINOCYCLINE HCL 100 MG CAPS 1 capsule by mouth twice a day Take one twice a day for three days then only take 1 once a day minocycline 34004543999 Rocky Patino MD budesonide 3 mg by mouth as needed as directed 06/15 budesonide Flavio Mack budesonide 3 mg by mouth as needed as directed 06/15 budesonide Jhai Angel EZETIMIBE 10 MG TABS 1 tablet by mouth once a day 04/17 ezetimibe 67352731531 eros Angel XARELTO 20 MG TABS 04/17 rivaroxaban 70575758829 [facility] Stanley PRAVASTATIN SODIUM 20 MG TABS 1 tablet by mouth once a day 04/17 pravastatin 52909472993 Hugh Angel aspirin 81 mg capsule 1 capsule by mouth once a day 04/17 aspirin eros Angel ITRACONAZOLE 100 MG CAPS Take 2 capsule by mouth twice a day 04/14 itraconazole 63651932927 Anne Gaurang ITRACONAZOLE 100 MG CAPS TAKE TWO CAPSULES BY MOUTH TWICE DAILY itraconazole 64249846202 Rocky Patino MD IPRATROPIUM-ALBU TEROL 0.5-2.5 (3) MG/3ML SOLN 01/19 ipratropium-albut [place] 88073826657 Amrita Herminia JARDIANCE 10 MG TABS 1 tablet by mouth once a day 01/19 empagliflozin 37210029631 Amrita Hope ITRACONAZOLE 100 MG CAPS Take 2 capsule by mouth twice a day 04/14 itraconazole 53269611120 Rocky Patino MD XARELTO 20 MG TABS 04/17 rivaroxaban 32790810735 [facility] aspirin 81 mg capsule 1 capsule by mouth once a day 04/17 aspirin Laiba Sonu budesonide 9 mg by mouth as needed as directed 04/17 budesonide Laiba Sonu VITAMIN D 25 MCG (1000 UT) TABS 1 tablet by mouth once a day cholecalciferol (vitamin d3) 09653482176 Laiba Sonu JARDIANCE 10 MG TABS 1 tablet by mouth once a day 01/19 empagliflozin 12790497366 Laiba Sonu EZETIMIBE 10 MG TABS 1 tablet by mouth once a day 04/17 ezetimibe 43930423011 Laiba Sonu insulin lispro protamine-lispro 100 unit/mL (75-25) subcutaneous susp insulin lispro protamin-lispro Laiba Sonu IPRATROPIUM-ALBU TEROL 0.5-2.5 (3) MG/3ML SOLN ipratropium-albut [place] 45197829842 Laiba Sonu LEVOTHYROXINE SODIUM 50 MCG TABS 1 tablet by mouth once a day levothyroxine 16794786232 Laiba Sonu METFORMIN HCL 500 MG TABS 1 tablet by mouth once a day metformin 33383997827 Laiba Sonu MIRTAZAPINE 15 MG TABS 1 tablet by mouth once a day mirtazapine 98805808727 Laiba Sonu MYCOPHENOLATE MOFETIL 500 MG TABS 1 tablet by mouth twice a day mycophenolate mofetil 98519114154 Laiba Sonu PRAVASTATIN SODIUM 20 MG TABS 1 tablet by mouth once a day 04/17 pravastatin 31746850491 Laiba Sonu URSODIOL 500 MG TABS 1 tablet by mouth twice a day ursodiol 06448404609 Laiba Sonu Medications Administered No information available. 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, PAGEANT DIRECTOR FALLRSKANILTON yes Fall ris k assessment Lab [...] Appointment 11:00 AM Rocky Patino MD, [address] [facility], [address], [place], [address], Pending order CMP Pending order CBC with [...] Date G2 Complex E&M visit add-on (G221) CPT-58099 CMP [id number] CBC with Differential 2024 CPT-24854 Voriconazole Level 6 CPT-elizabeth New Oral Antibiotic CPT-coral Change oral antibiotics 2024 G2211 Complex E&M visit add-on (G2211) G2211 Complex E&M visit add-on (G2211) CPT-53884 CMP [id number] CBC with Differential 2024 CPT-63149 BNP CPT-84306 Itraconazole Level 3 CPT-Cooral Continue oral antibiotics 20 29/04/13 G2211 Complex E&M visit add-on (G2211) CPT-Cooral Continue oral antibiotics 27/02/11 CPT-24088 CMP [id number] CBC with Differential 2024 CPT-58022 Itraconazole Level 1 CPT-98319 BNP CPT-elizabeth New Oral Antibiotic CPT-06896 CMP [id number] CBC with Differential 2024 CPT-59968 CD4 30627 Fungitell, serum (1-3) D-Glucan Assay 03/07/12 CPT-25167 Urine Culture & Sensitivity [id number], [id number] Urinalysis CPT-cf Fungal Culture & Sensitivity CPT-48734 BNP Vital Signs Date Name Value Unit [...]
--- OUTSIDE RECORDS SUMMARY | 2025-09-18 11:14 | XMS_ITS | Clinical Summary ---
[facility] Organization [facility] Address [address] [place] [address] Care Team Providers Care Registrar Nurses' Registry Name Role Phone Provider, No Known Primary [...] 08/15/2016 AAA SCREEN ONCE Completed 12/07/2016 Insurance [facility] [employer] PPO Care Teams Registrar Nurses' Registry Relationship Specialty Start Date End Date Provider, No Known [facility] [place] [address] PCP - General 01/14/25
--- OUTSIDE RECORDS SUMMARY | 2025-09-18 11:14 | XMS_ITS | Encounter Summary ---
Author Organization [facility] Address [address] [place] [address] Care Team Providers Care Vessel Slag Worker Name Role Phone Rocky Almanzar MD Primary Care Provider [phone] Reason for Visit * Reason Comments Med Refill Encounter Details Date Type Department Care Team (Late Contact Info) Description 11/10/2021 Refill [facility] [address] [place] [address] Jason Romero MD [address] [address] Type 2 diabetes mellitus with other specified complication, with long-term current use of insulin ([facility]) Social History Tobacco Use Types [...] Visit [facility] [address] [place] [address] Melany Rosales DO [address] [place] [address] 01/05/2026 11:00 AM EST Office Visit [facility] [address], [address] [place] [address] Vivian Macias S, OD [address] [facility] [address] [place] [address] documented as of this encounter [...] documented as of this encounter Care Teams Vessel Slag Worker Relationship Specialty Start Date End Date Rocky Almanzar MD [address] [place] [address] PCP - General 03/18/21 documented as of this encounter
--- OUTSIDE RECORDS SUMMARY | 2025-09-18 11:15 | XMS_ITS | Encounter Summary ---
Author Organization [facility] Address [address] [place] [address] Care Team Providers Care Director Athletic Name Role Phone Rocky Almanzar MD Primary Care Provider [phone] Encounter Details Date Type Department Care Team (Late st Contact Info) Description 07/20/2025 [facility] [address] [place] [address] Melany Rosales DO [address] [place] [address] Type 2 diabetes mellitus with hyperglycemia, with long-term current use of insulin ([facility]) (Primary Dx) Social History Tobacco Use Types [...] Description 01/05/2026 9:40 AM EST Office Visit [facility] [address] [place] [address] Melany Rosales DO [address] [facility] [address] [place] [address] 01/05/2026 11:00 AM EST Office Visit [facility] [place] [address], [address] [place] [address] Vivian Macias S, OD [address] [place], [...] as of this encounter Care Teams Director Athletic Relationship Specialty Start Date End Date Rocky Almanzar MD [address] [place] [address] PCP - General 03/18/21 documented as of this encounter
--- OUTSIDE RECORDS SUMMARY | 2025-09-18 11:15 | XMS_ITS | Clinical Summary ---
Author Organization [facility] Address [address] [place] [address] Care Team Providers Care Nurse Emergency Room Name Role Phone Rocky Almanzar MD Primary Care Provider [phone] Allergies Active Allergy Reactions Criticality Noted Date [...] Department Care Team Description 09/01/2025 Refill [facility] Endocrinology [address] [place] [address] Jason Romero MD Type 2 diabetes mellitus with hyperglycemia, with long-term current use of insulin 07/20/2025 1:30 PM EDT [facility] [address] [place] [address] 07/20/2025 Orders Only [facility] [address] [place] [address] Melany Rosales DO Type 2 diabetes mellitus with hyperglycemia, with long-term current use of insulin ([facility]) (Primary Dx) 07/20/2025 Travel 07/17/2025 2:00 PM EDT Office Visit [facility] Audiology [address] [place] [address] Lottie Lund AuD Sensorineural hearing loss (SNHL) of both ears 07/17/2025 Travel 07/10/2025 Orders Only [facility] Endocrinology [address] [place] [address] Melany Rosales DO 07/09/2025 Orders Only [facility] Endocrinology [address] [place] [address] Melany Rosales, 07/09/2025 Results Follow-Up [facility] Endocrinology [address] [place] [address] Melany Rosales, 07/08/2025 Orders Only [facility] Endocrinology [address] [place] [address] Melany Rosales, 07/07/2025 11:40 AM EDT Office Visit [facility] Endocrinology [address] [place] [address] Melany Rosales, DO Type 2 diabetes mellitus with hyperglycemia, with long-term current use of insulin (CMS/HCC) (Primary Dx); Hemochromatosis, unspecified hemochromatosis type; Acquired hypothyroidism; Histoplasmosis; Elevation of adrenocorticotropic hormone (ACTH) 07/07/2025 Travel 06/30/2025 Refill [facility] Endocrinology [address] [place] [address] Jason Romero MD from Last 3 Months [...] Description 01/05/2026 9:40 AM EST Office Visit [facility] Endocrinology [address] [place] [address] Melany Rosales, DO [address] [place] [address] 01/05/2026 11:00 AM EST Office Visit [facility] [address] [place] [address] Vivian Macias S, OD [address] [place] [address] Health Maintenance Due Date Last Done Comments [facility]-Depression Screening 1950 [facility]-Medicare Annual Wellness (AWV) 1950 [facility]-Infant/Child/Adol SDOH Screenings 1950 Diabetes: Dental Exam 1961 [facility]- SDOH Screenings 1969 [facility]-Adult SDOH Screenings 1969 [facility]-DTaP,Tdap,and Td Vaccines (1 - Tdap) 1970 [facility]-Zoster Vaccines (1 of 2) 1970 CT Colonography 1996 FIT-DNA 1996 FIT 1996 FOBT 1996 Sigmoidoscopy 1996 [facility]-Abdominal Aortic Aneurysm (AAA) Screening 2016 MIE-CFAUO-65 Vaccine ( season) 2025 10/13/2024, 10/01/2023, 09/20/2022, Additional history [...] this topic Medical Devices Implanted Type Area Precipitate Washer Device Identifier Shelf Expiration Date Model / Serial / Lot Roseline Stanleyk Advantage Ci Hifocus 1j Electrode--06/05 Implanted:06/05 by Ky Del Rio MD (Quantity not on file) Cochlear Left: Ear Kloudless [id number] / [id number] / Description:Roseline StanleyK Advant age CI HiFocus 1J electrode--cochlear implant by Dr. Del Rio at [facility] on 06/21/2017, operative note in Epic. LEFT EAR. [employer] ULTRA 3D Cochlear implant REF: [id number] Serial number: [id number] Procedures Procedure Name Priority Date/Time Associated Diagnosis [...] - 17.3 ug/dL 07/20/2025 8:20 PM EDT [facility] Comment: Testing performed on Robert Police Dispatcher, standardized against LONG-TERM Reference Standard concentration values [...] BLOOD ORDERABLES Final Result Performing Organization Address [facility] Co de Phone Number [facility] [address] [place] [address] * Cortisol, 30 (07/20/2025 2:03 PM EDT) Pathologist [facility] Cortisol,Time=30 18.30 Before 10am: 3.7 - 19.4. After 5pm: 2.9 - 17.3 ug/dL 07/20/2025 8:19 PM EDT [facility] Comment: Testing performed on [place] Police Dispatcher, standardized against LONG-TERM Reference Standard concentration values [...] BLOOD ORDERABLES Final Result Performing Organization Address [facility] Co de Phone Number [facility] [address] [place] [address] * (ABNORMAL) ACTH (07/20/2025 1:28 PM EDT) Only the most recent of2 resultswithin the time period is included. ACTH 68.2(H) 7.2 - 63 pg/mL 07/20/2025 5:38 PM EDT [facility] Blood Venous blood specimen / Unknown Venipuncture / Unknown 07/20/2025 1:28 PM EDT 07/20/2025 1:42 PM EDT us Melany Rosales DO LAB BLOOD ORDERABLES Final Result Performing Organization Address [facility] Phone Number [facility] [address] [place] [address] * Cortisol, Time=0 (07/20/2025 1:28 PM EDT) Only the most recent of2 resultswithin the time period is included. Pathologist [facility] Cortisol 8.20 Before 10am: 3.7 - 19.4. After 5pm: 2.9 - 17.3 ug/dL 07/20/2025 8:23 PM EDT [facility] Comment:Testing performed on [place] Police Dispatcher, standardized against LONG-TERM Reference Standard concentration values assigned by LC-MS/MS and verified by BCR 192 and BCR 193 certified reference materials. Blood Venous blood specimen / Unknown Venipuncture / Unknown 07/20/2025 1:28 PM EDT 07/20/2025 4:08 PM EDT us Melany Rosales DO LAB REF LAB BLOOD AND FLUID ORD Final Result Performing Organization Address [facility] de Phone Number [facility] [address] [place] [address] * HM Lipid Panel (07/08/2025 3:03 PM EDT) us Melany Rosales DO HEALTH MAINTENANCE Final Re sult * Free T4, Plasma (07/08/2025 3:00 PM EDT) Blood Venous blood specimen / Unknown us Melany Rosales DO LAB BLOOD ORDERABLES Final Result * POCT glycosylated hemoglobin (Hb A1C) (07/07/2025 12:03 PM EDT) Pathologist [facility] POCT Hemoglobin A1C 6.7 <5.7% Non-Diabet ic % [facility] Kit Lot Number [id number] [facility] Kit Expiration Date 04/2027 [facility] Blood Venous blood specimen / Unknown 07/07/2025 12:03 PM EDT Melany Rosales DO POINT OF CARE TEST ENTER/ED IT ORDERABLES Edited Result - Final [facility] [address] [place] [address] * COLONOSCOPY (08/03/2017) Anatomical Region Laterality Modality [...] Date Last Indicated MRSA 03/30/2021 03/30/2021 Insurance [facility] [place] [address] EYEMED Care Teams Nurse Emergency Room Relationship Specialty Start Date End Date Rocky Almanzar MD [address] [place] [address] PCP - General 03/18/21
--- OUTSIDE RECORDS SUMMARY | 2025-09-18 11:15 | XMS_ITS | Encounter Summary ---
Author Organization [facility] Address [address] [place] [address] Care Team Providers Care Computer Operations Analyst Name Role Phone Rocky Almanzar MD Primary Care Provider [phone] Reason for Visit * Reason Comments Med Refill Encounter Details Date Type Department Care Team (Late Contact Info) Description 05/20/2021 Refill [facility] Endocrinology [address] [place] [address] Jason Romero MD [address] [address] Social History Tobacco Use Types [...] Description 01/05/2026 9:40 AM EST Office Visit [facility] Endocrinology [address] [place] [address] Melany Rosales, DO [address] [place] [address] 01/05/2026 11:00 AM EST Office Visit [facility] Eye [place] [address], [address] [place] [address] Vivian Macias S, OD [address] [place] [address] documented as of this encounter Visit Diagnoses Not on filedocumented in this encounter Additional Health Concerns Infection Onset Date Last Indicated Resolved Time MRSA 03/30/2021 03/30/2021 documented as of this encounter Care Teams Computer Operations Analyst Relationship Specialty Start Date End Date Rocky Almanzar MD [address] [place] [address] PCP - General 03/18/21 documented as of this encounter
--- OUTSIDE RECORDS SUMMARY | 2025-09-18 11:15 | XMS_ITS | Encounter Summary ---
Author Organization [facility] Address [address] [place] [address] Care Team Providers Care Reservoir Engineering Consultant Name Role Phone Rocky Almanzar MD Primary Care Provider [phone] Encounter Details Date Type Department Care Team [...] Description 01/05/2026 9:40 AM EST Office Visit [facility] Endocrinology [address] [place] [address] Melany Rosales, DO [address] [place] [address] 01/05/2026 11:00 AM EST Office Visit [facility] [place] [address] [place] [address] Vivian Macias S, OD [address] [place] [address] documented as of this encounter Visit Diagnoses [...] documented as of this encounter Care Teams Reservoir Engineering Consultant Relationship Specialty Start Date End Date Rocky Almanzar MD [address] [place] [address] PCP - General 03/18/21 documented as of this encounter
[2025-09-18 12:36] LABS: PHA INR Fingerstick 1.5 (0.9-1.1)
== END 2025-09-18 12:39 ==
LOC: ACC 11:07
PROVIDERS: PCP Family Medicine; Visit Provider Nurse Practitioner
DX: I48.0 Paroxysmal atrial fibrillation (principal); Z79.01 Long term (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 of anticoagulants
CPT/HCPCS: 85610; 99211; G0463

== ENCOUNTER 2025-09-29 14:17 | Outpatient (CLI) | payer MEDICARE, SELFPAY ==
--- OUTSIDE RECORDS SUMMARY | 2025-01-09 06:45 | XMS_ITS ---
Author Organization [facility] Address 1210 [facility] [address] [id number] Care Team Providers Care Documentation Analyst Name Role Phone Shauna Almanzar Primary Care Provider [phone] Allergies Allergen (clinical drug ingredient) Drug/Non Drug [...] 229 Performing Lab: Notes/Report: Test performed by [employer] [facility][note 3]0 [facility] , [address], [place] [address] Kristian Trevino MD, Scanning Manager CLIA: [id number] Sodium 138 135-145 mmol/L Potassium 4.3 3.5-5.3 [...] DAY AT BEDTIME; Duration: 30 Active Nystatin 855304 UNIT/ML 5 ml Mouth/Throa t Twice a [...] Encounter Location Date Provider Diagnosis [facility] 1210 [facility] 36 [facility] [address] [place], [place] [id number] 01/09/2025 Shauna Almanzar Type 2 diabetes aquilino [...] Provider Name:Shauna fofana, 11/12/2025 01:30:00 PM, 1210 [facility] 36 [facility], [address], [place], [id number], Progress Notes * HERMILA GOLDEN: [birth year] (75 yo M)Acc No.[id number]:01/09/2025 Progress Notes Patient: HERMILA BUCIO Provider: Shauna Almanzar M.D. :1950 A ge:74 Y S ex:Male Date:01/09/2025 Address:[address] [place] [address] [address], [facility] Subjective: * Chief Complaints: * 1 . 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, [place] user name and password for portal: [email or web address], type 2 diabetes, followed at [facility], 06/05/2019 CT: healing of R lung infection [...] orally once a day , Taking Nystatin 384892 UNIT/ML Suspension 5 ml Mouth/Throat Twice a [...] :25 PM >no auth required; CPT code 87975; faxed to [facility] Anel Magallanes 04/20/2025 10:24:55 AM EDT >pt denied ultrasound * Procedure Codes: G 2211 Complex e/[place], [address] [place], [address] Urinalysis, no micro, 55981 CBC WITH AUTO DIFF, 91283 VENIPUNCT, ROUTINE*, G8752 MOST RECENT SYSTOLIC BP < 140MM HG, G8754 MOST RECENT DIASTOLIC BP < 90MM HG * Follow Up: 1 Week * Images: Billing Information: * Visit Code: 41028 Office Visit, Est Pt., Level 4. * Procedure Codes: G2211 Complex e/[place] [address] [place]. [address] Urinalysis, no micro. 67078 CBC WITH AUTO DIFF. 46152 VENIPUNCT, ROUTINE*. G8752 MOST RECENT SYSTOLIC BP < 140MM HG. G8754 MOST RECENT DIASTOLIC BP < 90MM HG. * Electronic signature of Shauna Almanzar MD on 09/29/2025 at 02:30 PM EST Sign off status: Pending * Provider: Shauna Almanzar M.D. Date: 0 01/09/2025 Generated for Printi ng/Faxing/eTransmitting on: 1 11/29/2024 02:30 PM EST History and Physical Notes * HPI [...]
--- OUTSIDE RECORDS SUMMARY | 2025-01-15 10:00 | XMS_ITS ---
Author [facility] Address [address] [id number] Care Team Providers Care Case Managers Name Role Phone Shauna Almanzar Primary Care [...] MOUTH EVERY DAY; Duration: 30 Active Nystatin 895288 UNIT/ML 5 ml Mouth/Throa t Twice a [...] Encounter Location Date Provider Diagnosis MED-Sasha 1210 [facility] 36 [facility] [address] [place], [place] [phone] 01/15/2025 Sahuna Almanzar Interstitial lung disease J84.9 ; Adrenal [...] Name:Shauna fofana, 11/12/2025 01:30:00 PM, [address], [address], [place], [place], [phone], Progress Notes * HERMILA GOLDENOB: [birth year] (75 yo M)Acc No.[id number]:01/15/2025 Progress Notes Patient: HERMILA BUCIO Provider: Shauna Almanzar M.D. :1950 A ge:74 Y S ex:Male Date:01/15/2025 Address:[address] [place] [address] [address], [facility] Subjective: * Chief Complaints: * 1 . 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 * Procedure Codes: G2211 Complex e/[place]. [address] [place]. [address] Urinalysis, no micro. G8752 MOST RECENT SYSTOLIC BP < 140MM HG. G8754 MOST RECENT DIASTOLIC BP < 90MM HG. * Electronic signature of Shauna Almanzar MD on 09/29/2025 at 02:32 PM EST Sign off status: Pending * Provider: Shauna Almanzar M.D. Date: 0 01/15/2025 Generated for Printi ng/Fadavidg/eTransmitting on: 1 11/29/2024 02:32 PM EST History and Physical Notes * [...]
--- OUTSIDE RECORDS SUMMARY | 2025-02-11 09:00 | XMS_ITS ---
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) Active confirmed Vital Signs Blood pressure systolic 110 mm Hg 02/12/20 25 Blood pressure diastolic 62 mm Hg 025 Heart Rate 100 /min 02/11/2025 Height 65 in 02/11/2025 Weight 117.4 lbs 02/11/2025 BMI 19.53 kg/m2 02/11/2025 Encounters Encounter Location Date Provider Diagnosis [facility] [address] [facility] [address] [place] [address], [place] [phone] 02/11/2025 Emir Berger Type 2 diabetes aquilino itus with hyperglycemia E11.65 ; alf (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.4 ; Gross hematuria R31.0 and Body mass index (BMI) of 19.0 to 19.9 in adult Z68.1 Assessments Encounter Date Diagnosis (ICD Code) Assessment Notes Treatment Notes Treatment Clinical Notes Section Notes 02/11/2025 Type 2 diabetes mellitus with hyperglycemia (ICD-10 - E11.65) Patient needs to resume use of his CGM 02/11/2025 moth exterminator (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 (ICD-10 - Z79.4) [...] Name:Shauna Merida er, 11/12/2025 01:30:00 PM, 12[address] [facility] [address], [address], [place], [place], [phone], Progress Notes * HERMILA GOLDENOB: [birth year] (75 yo M)Acc No.[id number]:02/11/2025 Progress Notes Patient: HERMILA BUCIO Provider: Jaden Berger M.D. :1950 A ge:74 Y S ex:Male Date:02/11/2025 Address:[address] [place] [address] [address] , [facility] Pcp:Shauna Almanzar Subjective: * Chief Complaints: * [...] Impaired fasting glucose, Gets yearly eye exams, [facility], Questionable Dx Lupus erythematosus 2016, Granuloma [...] Three times a day , Discontinued Nystatin 097619 UNIT/ML Suspension 5 ml Mouth/Throat Twice a [...] * Images: Billing Information: * Visit Code: 41955 Office Visit, Est Pt., Level 4. * Procedure Codes: G2211 Complex e/m visit add on. G8752 MOST RECENT SYSTOLIC BP < 140MM HG. G8754 MOST RECENT DIASTOLIC BP < 90MM HG. * Electronic signature of Elidia Berger MD on 09/29/2025 at 02:32 PM EST Sign off status: Pending * Provider: Jaden Berger M.D. Date: 0 02/11/2025 Generated for Marissa mendoza/Rei/Khurramitting on: 1 11/29/2024 02:32 PM EST History [...]
--- OUTSIDE RECORDS SUMMARY | 2025-03-13 09:15 | XMS_ITS ---
Author Organization [facility] Address [address] [facility] [address] [phone] Care Team Providers Care Field Supervisor Seed Production Name Role Phone Shauna Almanzar Primary Care Provider Doretha Burns Unavailable [phone] Allergies Allergen (clinical drug ingredient) Drug/Non Drug Allergy documented on EMR Reaction Allergy Type Onset Date Status cephalexin Cephalexin Unknown Drug Allergy Activ e REASON FOR VISIT face is swollen per Alyssa at [facility], possible interaction with budesonide and itraconazole Medications Medication SIG (Take, Route, Frequency, Duration) Notes Start Date End Date Status Budesonide 3 MG 3 capsules Orally at bedtime Active metFORMIN HCl 500 MG 1 tablet with a igor l Orally Twice a day Active Cholecalciferol 25 MCG (1000 UT) 1 capsule Orally Once a day; Duration: 30 day(s) Active Ursodiol 500 MG 1 tablet Orally twic e a day Active Mycophenolate Mofetil 500 MG 1 tablet Orally Twice a day; Duration: 30 day(s) Active HumaLOG Mix 75/25 (75-25) 100 UNIT/ML 26 units subcutaneously three times a day ac Active Ipratropium-Albuterol 0.5-2.5 (3) MG/3ML 3 mL as needed Inhalation every 6 hrs Active Ezetimibe 10 mg TAKE ONE TABLET BY MOUTH EVERY DAY; Duration: 30 Active Warfarin Sodium 6 MG 1 tablet Orally Onc e a day; Duration: 30 day(s) Active Itraconazole 100 MG 1 capsule after a me al Orally Once a day; Duration: 10 day(s) Not-Taking Levothyroxine Sodium 50 mcg TAKE ONE TABLET BY MOUTH EVERY MORNING ON AN EMPTY STOMACH; Duration: 90 Active Mirtazapine 15 mg TAKE ONE TABLET BY MOUTH EVERY DAY AT BEDTIME; Duration: 30 Active Pravastatin Sodium 20 mg TAKE ONE TABLET BY MOUTH EVERY DAY; Duration: 30 Active Jardiance 10 mg 1 tablet Orally ever y other day; Duration: 90 days Active Vital Signs Blood pressure systolic 128 mm Hg 03/13/20 25 Blood pressure diastolic 60 mm Hg 025 Heart Rate 87 /min 03/13/2025 Height 65 in 03/13/2025 Weight 127.4 lbs 03/13/2025 BMI 21.2 kg/m2 03/13/2025 Encounters Encounter Location Date Provider Diagnosis [facility] [address] [place] [id number] 03/13/2025 Doretha Burns Drug interaction Z78 .9 Assessments Encounter Date Diagnosis (ICD Code) Assessment Notes Treatment Notes Treatment Clinical Notes Section Notes 03/13/2025 Drug interaction (ICD-10 - Z78.9) Discussed with Dr. Almanzar. Swelling is likely due from the interaction of itraconazole and budesonide. Will decrease budesonide dose to 2 tab daily until he sees GI on Sunday and will discuss dosing with them, as they are the ones managing this medication. Plan Of Treatment Treatment Notes Assessment Notes Drug interaction Discussed with Dr. Nery king. Swelling is likely due from the interaction of itraconazole and budesonide. Will decrease budesonide dose to 2 tab daily until he sees GI on Sunday and will discuss dosing with them, as they are the ones managing this medication. Next Appt Details Follow Up: with GI, Reason: Provider Name:Shauna Merida er, 11/12/2025 01:30:00 PM, [address] [facility], [address], [place], [phone], Progress Notes * HERMILA GOLDENOB: [birth year] (75 yo M)Acc No.[id number]:03/13/2025 Progress Notes Patient: Daniele SALAS HERMILA WALDROP Provider: LUCIA [place] :1950 A ge:74 Y S ex:Male Date:03/13/2025 Address:[address] [place], [place] [address]Y [address], [facility], [facility] Pcp:Shauna Almanzar Subjective: * Chief Complaints: * 1 . face is swollen per Alyssa at [facility], possible interaction with budesonide and itraconazole. * HPI: H PI: 74 year old male presents with c/o Patient is here today for?Pt is here today for facial swelling. Pt sts he believes it may be from a medication he has been taking. * ROS: D ERMATOLOGY: no R gurmeet. 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 * Medications: T aking HumaLOG Mix 75/25 (75-25) 100 UNIT/ML Suspension 26 units subcutaneously three times a day ac , Taking Ipratropium-Albuterol 0.5-2.5 (3) MG/3ML Solution 3 mL [...] MORNING ON AN EMPTY STOMACH , Taking Ezetimibe 10 mg Tablet TAKE ONE TABLET BY MOUTH EVERY DAY , Not-Taking Itraconazole 100 MG Capsule 1 capsule after a meal Orally Once a day , Medication List reviewed and reconciled with the patient * Allergies: C ephalexin. Objective: * Vitals: W t: 127.4, Temp: 97.4, BP: 128/60, HR: 87, O2 Sat: 95% on RA, Nurse: dave, Ht: 65, BMI:21.2. * Examination: G eneral Examination: General Appearance: N AD. C hest: n ormal shape and expansion. H eart: R SR. L ungs: c lear to auscultation. S kin: c heeks are both swollen, no erythema, no tenderness. Assessment: * Assessment: 1. D rug interaction - Z78.9 (Primary) Plan: * Treatment: * Procedure Codes: G 2211 Complex e/m visit add on * Follow Up: w ith GI * Images: Billing Information: * Visit Code: 56385 Office Visit, Est Pt., Level 3. * Procedure Codes: G2211 Complex e/m visit add on. * Electronic signature of LUCIA Dean on 09/29/2025 at 02:31 PM EST Sign off status: Pending * Provider: LUCIA [place] Date: 0 03/13/2025 Generated for Marissa mendoza/Rei/Khurramitting on: 11/29/2024 02:31 PM EST History and Physical Notes * HPI (History of Present Illness) Category Sub-Category Detail Notes Category Not es HPI Patient is here today for Pt is here today for facial swelling. Pt sts he believes it may be from a medication he has been taking Examination Category Sub-Category Detail Notes Category Not es General Examination Heart: RSR Lungs: clear to auscultatio n General Appearance: NAD Skin: cheeks are both swol mumtaz, no erythema, no tenderness Chest: normal shape and exp ansion
--- OUTSIDE RECORDS SUMMARY | 2025-04-02 09:15 | XMS_ITS ---
Author Organization [facility] Address [address] [facility] [address] [id number] Care Team Providers Care Petrology Teacher Name Role Phone Shauna Almanzar Primary Care Provider Allergies Allergen (clinical drug ingredient) Drug/Non Drug Allergy documented on EMR Reaction Allergy Type Onset Date Status cephalexin Cephalexin Unknown Drug Allergy Activ e Results Component Value Reference Range Notes Glycohemoglobin A1c (in hous e) Reviewed date:04/03/2025 09:15:19 AM Interpretation:11 Performing Lab: Notes/Report: 11 glycohemoglobin 11.1% 5 - 6.5 % P-Comprehensive Metabolic Pa tarah (CMP) Reviewed date:06/04/2025 01:02:08 PM Interpretation:gluc 347, bun 29, Ca 8.5, prot 5.5 Performing Lab: Notes/Report: Test performed by [facility], [employer] [facility] , [address], [place] [address] Kristian Trevino MD, Wafer Batter Mixer CLIA: [id number] Sodium 139 135-145 mmol/L Potassium 3.7 3.5-5.3 mmol/L Chloride 102 97-108 mmol/L CO2 23 22-32 mmol/L Glucose 347 65-99 mg/dL BUN 29 8-23 mg/dL Creatinine 0.91 0.70-1.30 mg/dL Calcium 8.5 8.6-10.4 mg/dL eGFR by Creatinine 88 >59 mL/min/1.73m2 Protein 5.5 6.0-8.3 g/dL Albumin 3.5 3.5-5.3 g/dL Alkaline Phosphatase 81 40-129 IU/L ALT (SGPT) 23 <5-55 IU/L AST (SGOT) 12 <5-46 IU/L Bilirubin, Total 0.5 <0.2-1.2 mg/dL A/G Ratio 1.8 1.1-2.5 P-Microalbumin/Creatinine, R andom Urine Sample Reviewed date:06/04/2025 01:02:08 PM Interpretation:a/c 695 Performing Lab: Notes/Report: Test performed by [facility] [address] [place] [address] , [address], [place] [address] Kristian Trevino MD, Wafer Batter Mixer CLIA: [id number] Albumin/Creatinine Ratio, Urine 695 0-30 ug/m g Microalbumin, Urine, Random 16.4 Creatinine, Urine 23.6 Reason For Referral Reason weakness, lung disea se, adrenal disease Diagnosis 1 Generalized weakness (R53.1) Referral Organization [facility] Referring Provider First Name Shauna Beatty Referring Provider Last Name Yohan Referring Provider Speciality Family Pra ctice Referred Provider Specialty Physical The rapist General Notes Catherine Kathleen 2024 02:19:19 PM >referral assigned to scheduling. May want to contact patient first to see if he still wants referral., Genoveva Grigsby 05/18/2025 02:47:51 PM > faxed to [facility] PT Referral Priority Routine REASON FOR VISIT 2 month f/u, Needs labs with PSA, colon cancer screening, & diabetic eye exam Medications Medication SIG (Take, Route, Frequency, Duration) Notes Start Date End Date Status Warfarin Sodium 6 MG 1 tablet Orally Onc e a day; Duration: 30 day(s) Active Ipratropium-Albuterol 0.5-2.5 (3) MG/3ML 3 mL as needed Inhalation every 6 hrs Active Ursodiol 500 MG 1 tablet Orally twic e a day Active Mycophenolate Mofetil 500 MG 1 tablet Orally Twice a day; Duration: 30 day(s) Active metFORMIN HCl 500 MG 1 tablet with a igor l Orally Twice a day Active Lantus SoloStar 100 UNIT/ML 5 units Subcutaneous once daily; Duration: 30 days 04/02/2025 Active HumaLOG Mix 75/25 (75-25) 100 UNIT/ML 36 units subcutaneously three times a day ac Active Itraconazole 100 MG 2 capsule after a me al Orally twice a day Active Itraconazole 100 MG 1 capsule after a me al Orally Once a day; Duration: 10 day(s) Not-Taking Mirtazapine 15 mg TAKE ONE TABLET BY MOUTH EVERY DAY AT BEDTIME; Duration: 30 Active Jardiance 10 mg 1 tablet Orally ever y other day; Duration: 90 days Active Levothyroxine Sodium 50 mcg TAKE ONE TABLET BY MOUTH EVERY MORNING ON AN EMPTY STOMACH; Duration: 90 Active Budesonide 3 MG 1 Orally at bedtime Active Cholecalciferol 25 MCG (1000 UT) 1 capsule Orally Once a day; Duration: 30 day(s) Active Vital Signs Blood pressure systolic 110 mm Hg 04/02/20 25 Blood pressure diastolic 60 mm Hg 025 Heart Rate 92 /min 04/02/2025 Height 65 in 04/02/2025 Weight 123.0 lbs 04/02/2025 BMI 20.47 kg/m2 04/02/2025 Encounters Encounter Location Date [facility] [address], [place] [id number] 04/02/2025 Shauna Almanzar Type 2 diabetes aquilino itus without complication E11.9 ; 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 ; Cholestatic hepatitis K75.89 ; group home (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.4 ; 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 ; Generalized weakness R53.1 and BMI 20.0-20.9, adult Z68.20 Assessments Encounter Date Diagnosis (ICD Code) Assessment Notes Treatment Notes Treatment Clinical Notes Section Notes 04/02/2025 Type 2 diabetes mellitus without complication (ICD-10 - E11.9) 04/02/2025 Adrenal abnormality (ICD-10 - E27.9) 04/02/2025 Cholestatic hepatitis (ICD-10 - K75.89) 04/02/2025 group home (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 (ICD-10 - Z79.4) 04/02/2025 Histoplasmosis (ICD-10 - B39.9) 04/02/2025 Generalized weakness (ICD-10 - R53.1) 04/02/2025 BMI 20.0-20.9, adult (ICD-10 - Z68.20) Plan Of Treatment Medication Medication Name Sig Start Date Stop Date Notes Pravastatin Sodium 20 mg TAKE ONE TABLET BY MOUTH EVERY DAY Lantus SoloStar 100 UNIT/ML 5 units Subc utaneous once daily; Duration: 30 days 04/02/2025 Ezetimibe 10 mg TAKE ONE TABLET BY M OUTH EVERY DAY Referrals Referral Date Details 04/02/2025 04/02/2025, weakness , lung disease, adrenal disease Next Appt Details Follow Up: 4 Weeks, Reason: Provider Name:Shauna Merida er, 11/12/2025 01:30:00 PM, [address] [facility] 36 [facility], [address], [place], [place], [id number], Progress Notes * HERMILA GOLDENOB: [birth year] (75 yo M)Acc No.[id number]:04/02/2025 Progress Notes Patient: HERMILA BUCIO Provider: Shauna Almanzar M.D. :1950 A ge:75 Y S ex:Male Date:04/02/2025 Address:[address] [place] [address] 32 , [facility] Subjective: * Chief Complaints: * 1 . 2 month f/u. 2. Needs labs with PSA, colon cancer screening, & diabetic eye exam. * HPI: C ardiology: The patient is here for a check up on Hypertension and Diabetes. Pt states he is having a lot of fatigue and swelling in his face for about 4 weeks now,. Pt states he is short of breath. Pt states he has been doing the neb treatment 3 times a day. 75 year old male presents with c/o Short of Breath. c/o Fatigue. Denies : Chest Pain. D enies : Dizziness. D enies : Palpitations. D enies : Leg Edema. 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 Itroconazole has apparently interacted with the Budesonide to cause increased steroid side effects especially with facial swelling. G astroenterology: Has been decreased a week ago on the Budesonide dose to one a day. * ROS: D ERMATOLOGY: no R gurmeet. 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 * Medications: T aking Itraconazole 100 MG Capsule 2 capsule after a meal Orally twice a day , Taking HumaLOG Mix 75/25 (75-25) 100 UNIT/ML Suspension 36 units subcutaneously three times a day ac [...] Budesonide 3 MG Capsule Delayed Release Particles 1 Orally at bedtime , Taking Jardiance 10 mg Tablet 1 tablet Orally every other day , Taking Pravastatin Sodium 20 mg Tablet TAKE ONE TABLET BY MOUTH EVERY DAY , Taking Levothyroxine Sodium 50 mcg Tablet TAKE ONE TABLET BY MOUTH EVERY MORNING ON AN EMPTY STOMACH , Taking Ezetimibe 10 mg Tablet TAKE ONE TABLET BY MOUTH EVERY DAY , Taking Mirtazapine 15 mg Tablet TAKE ONE TABLET BY MOUTH EVERY DAY AT BEDTIME , Not-Taking Itraconazole 100 MG Capsule 1 capsule after a meal Orally Once a day , Medication List reviewed and reconciled with the patient * Allergies: C ephalexin. Objective: * Vitals: W t: 123.0, Temp: 98.1, BP: 110/60, HR: 92, O2 Sat: 99% on RA, Nurse: JAY, Ht: 65, BMI:20.47. * Examination: G eneral Examination: General Appearance: N AD, note weight gain. He looks much better.. H EENT: u nremarkable. O ral cavity: n o lesions, mucosa moist and WNL, no erythema. N whitney: s upple, no lymphadenopathy. C hest: n ormal shape and expansion. H eart: R SR. L ungs: d ecreased breath sounds. A bdomen: soft and nontender, no organomegaly or masses. N eurologic Exam: I ntact, gait normal. S kin: n ormal, no rash. P eripheral pulses: n ormal. B ack: mild dorsal kyphosis. E xtremities: n o leg edema. Assessment: * Assessment: 1. T ype 2 diabetes mellitus without complication - E11.9 2 . A drenal abnormality - E27.9 3 . C holestatic hepatitis - K75.89 4 . L tonia term (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 - Z79.4 5 . H istoplasmosis - B39.9 6. G eneralized weakness - R53.1 7 . B NC 20.0-20.9, adult - Z68.20? Plan: * Treatment: Value Reference Range A /G Ratio 1.8 1.1-2.5 - * A lbumin 3.5 3.5-5.3 - g/dL * A lkaline Phosphatase 81 40-129 - IU/L * A LT (SGPT) 23 <5-55 - IU/L * A ST (SGOT) 12 <5-46 - IU/L * B ilirubin, Total 0.5 <0.2-1.2 - mg/dL * B UN 29 H 8-23 - mg/dL * C alcium 8.5 L 8.6-10.4 - mg/dL * C hloride 102 97-108 - mmol/L * C O2 23 22-32 - mmol/L * C reatinine 0.91 0.70-1.30 - mg/dL * G lucose 347 H 65-99 - mg/dL * P otassium 3.7 3.5-5.3 - mmol/L * S odium 139 135-145 - mmol/L * P rotein 5.5 L 6.0-8.3 - g/dL * e GFR by Creatinine 88 >59 - mL/min/1.73m2 * Chula Gibson 06/04/20 25 01:01:59 PM EDT > See phone encounter ?LAB: P-Microalbumin/Creatinine, Random Urine Sample (Collection Date & Time - 04/02/2025 02:38 PM)?a/c 695* Value Reference Range A lbumin/Creatinine Ratio, Urine 695 H 0-30 - ug /mg * C reatinine, Urine 23.6 - mg/dL * M icroalbumin, Urine, Random 16.4 - mg/dL * ArthurChulaCeleste 06/04/20 01:01:59 PM EDT > See phone encounter ?LAB: Glycohemoglobin A1c (in house) (Collection Date & Time - 04/02/2025)? 11* Value Reference Range g lycohemoglobin 11.1% 5 - 6.5 % * Fatimah Sotelo 04/02/2025 03 :20:47 PM > Provider reviewed results while patient in office. 2.?Cholestatic hepatitis? Stop Pravastatin Sodium Tablet, 20 mg, TAKE ONE TABLET BY MOUTH EVERY DAY;?Stop Ezetimibe Tablet, 10 mg, TAKE ONE TABLET BY MOUTH EVERY DAY.??3.?Generalized weakness? Referral To:Physical Therapist ?Reason:weakness, lung disease, adrenal disease * Procedure Codes: G 2211 Complex e/[place], [address] GLYCATED HEMOGLOBIN TEST, Modifiers: QW , G8752 MOST RECENT SYSTOLIC BP < 140MM HG, G8754 MOST RECENT DIASTOLIC BP < 90MM HG, 3046F HEMOGLOBIN A1C LEVEL > 9.0%, G8420 BMI<30 AND >=22 CALC & DOCU, 1036F TOBACCO NON-USER, 3017F COLORECTAL CA SCREEN DOC REV * Preventive Medicine: Screening / Special Tests: C olonoscopy C olonoscopy 07/2017 with benign polyps, Cologuard 07/04/2022 negative. * Follow Up: 4 Weeks * Images: Billing Information: * Visit Code: 62522 Office Visit, Est Pt., Level 4. * Procedure Codes: G2211 Complex e/[place]. [address] GLYCATED HEMOGLOBIN TEST. Modifiers: QW G8752 MOST RECENT SYSTOLIC BP < 140MM HG. G8754 MOST RECENT DIASTOLIC BP < 90MM HG. 3046F HEMOGLOBIN A1C LEVEL > 9.0%. G8420 BMI<30 AND >=22 CALC & DOCU. 1036F TOBACCO NON-USER. 3017F COLORECTAL CA SCREEN DOC REV. * Electronic signature of Shauna Almanzar MD on 09/29/2025 at 02:30 PM EST Sign off status: Pending * Provider: Shauna Almanzar M.D. 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 Itroconazole has apparently interacted with the Budesonide to cause increased steroid side effects especially with facial swelling. Cardiology Short of Breath Chest Pain Palpitations Dizziness Leg Edema Fatigue Gastroenterology Has been de creased a week ago on the Budesonide dose to one a day. Examination Category Sub-Category Detail Notes Category Not es General Examination HEENT: unremarkable Heart: RSR Lungs: decreased breath margaret nds Abdomen: soft [...] kyphosis Chest: normal shape and exp ansion Consultation Request Notes Referral Date Referring Provider Referred Provider Not es 04/02/2025 Shauna Almanzar , weakness, lung disease, adrenal disease
--- OUTSIDE RECORDS SUMMARY | 2025-04-30 09:00 | XMS_ITS ---
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) Ref[facility] Referring Provider First Name Shauna Beatty Referring [...] W/U Status Risk Notes Problem Cardiac arrhythmia (692224808) Cardiac arrhythmia, unspecified cardiac arrhythmia type (I49.9) Active confirmed Problem Chronic vascular insufficiency of intestine (490603529) 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 Vital Signs Blood pressure systolic 130 mm Hg 04/30/20 25 Blood pressure diastolic 62 mm Hg 025 Heart Rate 85 /min 04/30/2025 Height 65 in 04/30/2025 Weight 133.8 lbs 04/30/2025 BMI 22.26 kg/m2 04/30/2025 Encounters Encounter Location Date Provider [facility] [address] [phone] 04/30/2025 Shauna Almanzar Type 2 diabetes aquilino itus with hyperglycemia E11.65 ; senior living (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.4 ; Adrenal [...] mellitus with hyperglycemia (ICD-10 - E11.65) 04/30/2025 senior living (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 (ICD-10 [...] Name:Shauna Merida er, 11/12/2025 01:30:00 PM, 1210 [facility] 36 [facility], [address] , [place], [place], [id number], Progress Notes * HEMRILA GOLDENOB: [birth year] (75 yo M)Acc No.[id number]:04/30/2025 Progress Notes Patient: Daniele CEDRICKRAJIVHERMIAL Provider: Shauna Almanzar M.D. :1950 A ge:75 Y S ex:Male Date:04/30/2025 Address:[address] [facility] 32 , [facility] Subjective: * Chief Complaints: * 1 . 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 B GA 22.0-22.9, adult - Z68.22 1 3. C [...] * Images: Billing Information: * Visit Code: 35272 Office Visit, Est Pt., Level 4. * [...] 04/30/2025 Generated for Marissa mendoza/Rei/eTransmitting on: 1 11/29/2024 [...]
--- OUTSIDE RECORDS SUMMARY | 2025-06-09 05:00 | XMS_ITS ---
Author Organization [facility] Address [address] [facility] 36 [facility] [address] [place] [phone] Care Team Providers Care Organic Section Technical Lead Name Role Phone Shauna Almanzar Primary Care Provider Emir Berger Unavailable [phone] Allergies Allergen (clinical drug ingredient) Drug/Non Drug [...] 232 Performing Lab: Notes/Report: Test performed by [facility] [address] [place] [address] , [address], [place] [address] Kristian Trevino MD, Blade Sharpener CLIA: [id number] Sodium 141 135-145 mmol/L Potassium 3.0 3.5-5.3 [...] Interpretation:23 Performing Lab: Notes/Report: Test performed by [facility] [address] [facility], [place] [address] Kristian Trevino MD, Blade Sharpener CLIA: [id number] Creatine Kinase 23 20-200 U/L N-B-Xtbcrhoy Protein (CRP) Reviewed date:06/10/2025 08:30:05 AM Interpretation:4.00 Performing Lab: Notes/Report: Test performed by [facility] [address] [place] , [place] [address] Kristian Trevino MD, Blade Sharpener CLIA: [id number] C-Reactive Protein (CRP) 4.00 <0.50 mg/dL P-Sed Rate (ESR) Reviewed date:06/10/2025 08:30:05 AM Interpretation:31 Performing Lab: Notes/Report: Test performed by [facility] [address] [facility], [place] [id number] Kristian Trevino MD, Blade Sharpener CLIA: [id number] Erythrocyte Sedimentation Ra te (ESR), Automated 31 <21 mm/hr P-TSH reflex to FT4 Reviewed date:06/10/2025 08:30:05 AM Interpretation:Normal Performing Lab: Notes/Report: Test performed by [facility] [address] [place] [address] , [address], [place] [address] Kristian Trevino MD, Blade Sharpener CLIA: [id number] TSH reflex to FT4 3.44 0.43-5.25 mU/L P-Vitamin D 25-Hydroxy Reviewed date:06/10/2025 08:30:05 AM Interpretation:Normal Performing Lab: Notes/Report: Test performed by [facility] [address] [place] [address] , [address], [place] [address] Kristian Trevino MD, Blade Sharpener CLIA: [id number] Vitamin D 25-Hydroxy 57.8 30.0-100.0 ng/mL Interpretation [...] Duration: 90 days Active FreeStyle Leroy 3 [place] - as directed 05/12/2025 Not-Taking Levothyroxine Sodium [...] Status W/U Status Risk Notes Problem Anorexia (35637324) Anorexia (R63.0) Active confirmed Vital Signs Blood pressure systolic 112 mm Hg 06/09/20 25 Blood pressure diastolic 68 mm Hg 025 Heart Rate 64 /min 06/09/2025 Height 65 in 06/09/2025 Weight 130 lbs 06/09/2025 BMI 21.63 kg/m2 06/09/2025 Encounters Encounter Location Date Provider Diagnosis [facility] [address] [place] [address] 36 [facility] [address] [place] [id number] 06/09/2025 Emir Berger Generalized weakness R53.1 ; [...] Merida er, 11/12/2025 01:30:00 PM, [address] [facility] 36 [facility], [address], [place], [id number], Progress Notes * HERMILA GOLDENOB: [birth year] (75 yo M)Acc No.[id number]:06/09/2025 Progress Notes Patient: HERMILA BUCION Provider: Jaden Berger M.D. 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, 06/05/2019 CT: healing of R [...] mouth daily , Not-Taking FreeStyle Leroy 3 [place] - Device as directed , Not-Taking FreeStyle [...] AM EDT > See phone encounter ?LAB: D-M-Ozlvfwyr Protein (CRP) (Collection Date & Time - [...] G 2211 Complex e/[place], [address] CBC WITH AUTO DIFF, 1036F TOBACCO NON-USER, G8783 BP SCR PRFRM RCMDD DEFIND SCR INTVL, G8752 MOST RECENT SYSTOLIC BP < 140MM HG, G8754 MOST RECENT DIASTOLIC BP < 90MM HG * Follow Up: v ia phone to report test results * Images: Billing Information: * Visit Code: 38858 Office Visit, Est Pt., Level 4. * Procedure Codes: G2211 Complex e/[place]. [address] CBC WITH AUTO DIFF. 1036F TOBACCO NON-USER. G8783 BP SCR PRFRM RCMDD DEFIND SCR INTVL. G8752 MOST RECENT SYSTOLIC BP < 140MM HG. G8754 MOST RECENT DIASTOLIC BP < 90MM HG. * Electronic signature of Elidia Berger MD on 09/29/2025 at 02:31 PM EST Sign off status: Pending * Provider: Jaden Berger M.D. Date: 0 06/09/2025 Generated for Marissa mendoza/Rei/Khurramitting on: 11/29/2024 02:31 [...]
--- OUTSIDE RECORDS SUMMARY | 2025-07-03 06:45 | XMS_ITS ---
Author Organization [facility] Address 1210 [facility] [address] [id number] Care Team Providers Care Billing Machine Operator Name Role Phone Shauna Almanzar [...] 175 Performing Lab: Notes/Report: Test performed by [facility] , [address], [place] [address] Kristian Trevino MD, Private Branch Exchange Service Advisor CLIA: [id number] Sodium 140 135-145 mmol/L Potassium 4.1 3.5-5.3 mmol/L Chloride 105 97-108 mmol/L CO2 22 20-32 mmol/L Glucose 175 65-99 mg/dL BUN 12 8-23 mg/dL Creatinine 1.26 0.70-1.30 mg/dL Calcium 9.4 8.6-10.4 mg/dL eGFR by Creatinine 60 >59 mL/min/1.73m2 P-Cortisol, Random Reviewed date:07/07/2025 10:18:42 AM Interpretation: Normal Performing Lab: Notes/Report: Test performed by [email or web address] [address] [place] [address] , [address], [place] [address] Kristian Trevino MD, Private Branch Exchange Service Advisor CLIA: [id number] Cortisol, Random 7.7 CORTISOL REFERENCE RANGE AM Serum: 6.0-18.4 ug/dL PM Serum: 2.7-10.5 ug/dL P-Iron Reviewed date:07/07/2025 10:18:42 AM Interpretation:28 Performing Lab: Notes/Report: Test performed by [email or web address] [address] [place] [address] , [address], [place] [address] Kristian Trevino MD, Private Branch Exchange Service Advisor CLIA: [id number] Iron 28 59-158 ug/dL P-TSH Reviewed date:07/07/2025 10:18:42 AM Interpretation:6.42 Performing Lab: Notes/Report: Test performed by [facility] [address] [place] [address] , [address], [place] [address] Kristian Trevino MD, Private Branch Exchange Service Advisor CLIA: [id number] TSH 6.42 0.43-5.25 mU/L REASON FOR VISIT [...] Duration: 90 days Active FreeStyle Leroy 3 [place] - as directed 05/12/2025 Not-Taking Mirtazapine 15 mg TAKE ONE TABLET BY MOUTH EVERY DAY AT BEDTIME; Duration: 30 Active Levothyroxine Sodium 50 mcg 1 tablet by mouth daily; Duration: 90 days Active Vital Signs Blood pressure systolic 124 mm Hg 07/03/20 25 Blood pressure diastolic 70 mm Hg 025 Heart Rate 101 /min 07/03/2025 Height 65 in 07/03/2025 Weight 128.0 lbs 07/03/2025 BMI 21.3 kg/m2 07/03/2025 Encounters Encounter Location Date Provider [facility] [address] [id number] 07/03/2025 Shauna Almanzar Hypokalemia E87.6 ; Essential hypertension I10 ; Chronic fatigue R53.82 ; Protein malnutrition E46 ; Type 2 diabetes mellitus with hyperglycemia E11.65 ; 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 :1950 A ge:75 Y S ex:Male Date:07/03/2025 Address:[address] [place] [address] [address] , [facility] Subjective: * Chief Complaints: * 1 . [...] Impaired fasting glucose, Gets yearly eye exams, [facility], Questionable Dx Lupus erythematosus 2015, Granuloma [...] at bedtime , Not-Taking FreeStyle Leroy 3 [place] - Device as directed , Not-Taking FreeStyle [...] drenal abnormality - E27.9 9 . B [place] 21.0-21.9, adult - Z68.21? Plan: * Treatment: [...] G 2211 Complex e/[place], [address] CBC WITH AUTO DIFF, 79181 GLYCATED HEMOGLOBIN TEST, Modifiers: QW , 65815 CAPILLARY BLOOD DRAW, 1036F TOBACCO NON-USER, G8950 PREHTN/HTN BP DOC INDCD F/U DOC, G8752 MOST RECENT SYSTOLIC BP < 140MM HG, G8754 MOST RECENT DIASTOLIC BP < 90MM HG, 3044F HG A1C LEVEL LT 7.0% * Follow Up: 4 Weeks * Images: Billing Information: * Visit Code: 63938 Office Visit, Est Pt., Level 4. * Procedure Codes: G2211 Complex e/[place]. [address] CBC WITH AUTO DIFF. 08343 GLYCATED HEMOGLOBIN TEST. Modifiers: QW 03967 CAPILLARY BLOOD DRAW. 1036F TOBACCO NON-USER. G8950 PREHTN/HTN BP DOC INDCD F/U DOC. G8752 MOST RECENT SYSTOLIC BP < 140MM HG. G8754 MOST RECENT DIASTOLIC BP < 90MM HG. 3044F HG A1C LEVEL LT 7.0%. * Electronic signature of Shauna Almanzar MD on 09/29/2025 at 02:32 PM EST Sign off status: Pending * Provider: Shauna Almanzar M.D. Date: 0 07/03/2025 Generated for Marissa mendoza/Rei/Fernyranangie on: 11/29/2024 02:32 PM EST History and Physical [...]
--- OUTSIDE RECORDS SUMMARY | 2025-08-07 06:00 | XMS_ITS ---
[facility] Address [address] [facility] [address] [phone] Care Team Providers Care Ops Analyst Name Role Phone Shauna Almanzar Primary Care Provider Allergies Allergen (clinical drug ingredient) Drug/Non Drug Allergy documented on EMR Reaction Allergy Type Onset Date Status cephalexin Cephalexin Unknown Drug Allergy Activ e Reason For Referral Reason needs physical and p ulmonary rehab Diagnosis 1 Interstitial lung di sease (J84.9) [facility] Referring Provider First Name Shauna [facility] Referring Provider Last Name Yohan Referring Provider Speciality Family Pra ctice Referred Provider Specialty Physical The rapist General Notes Genoveva Grigsby 2024 01:08:41 PM > faxed to [facility] PT Referral Priority Routine REASON FOR VISIT 4 weeks Medications Medication SIG (Take, Route, Frequency, Duration) Notes Start Date End Date Status Levothyroxine Sodium 75 MCG 1 tablet in the morning on an empty stomach Orally Once a day; Duration: 90 days 07/17/2025 Active Mirtazapine 15 mg 1 tablet at bedtime orally once a day; Duration: 30 days Active Budesonide 3 MG 1 Orally at bedtime Not-Taking FreeStyle Leroy 3 Vowinckel - as directed 05/12/2025 Not-Taking FreeStyle Leroy 3 Plus Sensor - replace sensor every 14 days; Duration: 28 days 05/12/2025 Not-Taking Jardiance 10 mg 1 tablet Orally ever y other day; Duration: 90 days Active Potassium Chloride ER 20 MEQ 1 tablet with food Orally Once a day; Duration: 30 days 06/10/2025 Active Ursodiol 500 MG 1 tablet Orally twic e a day Active metFORMIN HCl 500 MG 1 tablet with a igor l Orally Twice a day Active Cholecalciferol 25 MCG (1000 UT) 1 capsule Orally Once a day; Duration: 30 day(s) Active Voriconazole 200 MG 1 tablet 1 hour before or 1 hour after meals Orally every 12 hrs Active Ipratropium-Albuterol 0.5-2.5 (3) MG/3ML 3 mL as needed Inhalation every 6 hrs Active Warfarin Sodium 6 MG 1 tablet Orally Onc e a day; Duration: 30 day(s) Active Mycophenolate Mofetil 500 MG 1 tablet Orally Twice a day; Duration: 30 day(s) Active Immunizations Vaccine Route Administration Date Status Comme nts Fluzone High Dose (65yr and older) IM Intramuscular 08/07/2025 Administered Vital Signs Blood pressure systolic 102 mm Hg 08/07/20 25 Blood pressure diastolic 60 mm Hg 025 Heart Rate 105 /min 08/07/2025 Height 65 in 08/07/2025 Weight 123.6 lbs 08/07/2025 BMI 20.57 kg/m2 08/07/2025 Encounters Encounter Location Date Provider Diagnosis [facility] [address] [phone] 08/07/2025 Shauna Almanzar Type 2 diabetes aquilino itus without complication E11.9 ; Acquired hypothyroidism E03.9 ; Hereditary hemochromatosis E83.110 ; Cochlear implant status Z96.21 ; Interstitial lung disease J84.9 ; 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.4 and 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 Assessments Encounter Date Diagnosis (ICD Code) Assessment Notes Treatment Notes Treatment Clinical Notes Section Notes 08/07/2025 Type 2 diabetes mellitus without complication (ICD-10 - E11.9) 08/07/2025 Acquired hypothyroidism (ICD-10 - E03.9) 08/07/2025 Hereditary hemochromatosis (ICD-10 - E83.110) 08/07/2025 Cochlear implant status (ICD-10 - Z96.21) 08/07/2025 Interstitial lung disease (ICD-10 - J84.9) 08/07/2025 nursing home (current) use of insulin (ICD-10 - Z79.4) 08/07/2025 Adrenal abnormality (ICD-10 - E27.9) Plan Of Treatment Referrals Referral Date Details 08/07/2025 08/07/2025, needs ph ysical and pulmonary rehab Next Appt Details Follow Up: 3M, Reason: Provider Name:Shauna Merida er, 11/12/2025 01:30:00 PM, [address] [facility] [address], [place], [place], [phone], Progress Notes * HERMILA GOLDENOB: [birth year] (75 yo M)Acc No.[id number]:08/07/2025 Progress Notes Patient: HERMILA BUCIO Provider: Shauna Almanzar M.D. :1950 A ge:75 Y S ex:Male Date:08/07/2025 Address:[address] [place] [address], [place] [phone] Subjective: * Chief Complaints: * 1 . 4 weeks. * HPI: C ardiology: The pt is here for a follow up on Hypokalemia, Hypertension, Fatigue and lab studies. See pt docs. Pt states he is taking the levothyroxine 75 mg daily now instead of the 50 mg. Pt is not fasting. Pt states he saw Endocrinology in July and his A1c there was 6.7%. 75 year old male presents with c/o Fatigue. Denies : Chest Pain. D enies : Short of Breath. D enies : Dizziness. D enies : Palpitations. E NT/respiratory: Off steroids since March. * ROS: C ONSTITUTIONAL: Positive for A linoher physician seen since last visit? Yes, Endocrinology, Audiology, and Dentist Change in medication since last visit? Yes Are you taking antibiotics? No Are you taking steroids? No. D ERMATOLOGY: no R gurmeet. n o [...] portal: alexa...#[id number], type 2 [place] [facility] [facility] [place] tablet Orally every other day , Taking Potassium Chloride ER 20 MEQ Tablet Extended Release 1 tablet with food Orally Once a day , Taking Levothyroxine Sodium 75 MCG Tablet 1 tablet in the morning on an empty stomach Orally Once a day , Taking Mirtazapine 15 mg Tablet 1 tablet at bedtime orally once a day , Not-Taking Budesonide 3 MG Capsule Delayed Release Particles 1 Orally at bedtime , Not- Taking FreeStyle Leroy 3 Vowinckel - Device as directed , Not-Taking FreeStyle Leroy 3 Plus Sensor - Miscellaneous replace sensor every 14 days , Medication List reviewed and reconciled with the patient * Allergies: C ephalexin. Objective: * Vitals: W t: 123.6, Temp: 97.9, BP: 102/60, HR: 105, O2 Sat: 98% on RA, Nurse: JAY, Ht: 65, BMI:20.57. * Examination: G eneral Examination: General Appearance: N AD, note weight gain. . H EENT: u nremarkable, facial swelling is less. O ral cavity: n o lesions, mucosa moist and WNL, no erythema. N whitney: s upple, no lymphadenopathy. C hest: n ormal shape and expansion. H eart: s eems RSR, 100. L ungs: d ecreased breath sounds. A bdomen:? soft and nontender, no organomegaly or masses. N eurologic Exam: I ntact, gait normal.?Skin: n ormal, no rash. P eripheral pulses: n ormal. B ack: mild dorsal kyphosis. E xtremities: n o leg edema. Assessment: * Assessment: 1. T ype 2 diabetes mellitus without complication - E11.9 (Primary) 2 . A cquired hypothyroidism - E03.9 3 . H ereditary hemochromatosis - E83.110 ? 4 . C ochlear implant status - Z96.21 5 . I nterstitial lung disease - J84.9 6 . L tonia term (current) use of insulin - Z79.4 7 .?Adrenal abnormality - E27.9 Plan: * Treatment: * Immunizations: Fluzone High Dose (65yr and older) : 0.5 mL (Route: Intramuscular) given by Fatimah Sotelo on Left Deltoid * Procedure Codes: G 2211 Complex e/m visit add on, G8783 BP SCR PRFRM RCMDD DEFIND SCR INTVL, G8752 MOST RECENT SYSTOLIC BP < 140MM HG, G8754 MOST RECENT DIASTOLIC BP < 90MM HG, 3074F SYST BP LT 130 MM HG, 3078F DIAST BP < 80 MM HG * Follow Up: 3 M * Images: Billing Information: * Visit Code: 45452 Office Visit, Est Pt., Level 4. * Procedure Codes: G2211 Complex e/m visit add on. G8783 BP SCR PRFRM RCMDD DEFIND SCR INTVL. G8752 MOST RECENT SYSTOLIC BP < 140MM HG. G8754 MOST RECENT DIASTOLIC BP < 90MM HG. 3074F SYST BP LT 130 MM HG. 3078F DIAST BP < 80 MM HG. * Electronic signature of Shauna Almanzar MD on 09/29/2025 at 02:31 PM EST Sign off status: Pending * Provider: Shauna Almanzar M.D. Date: Generated for Collinsi ng/Veronicag/eTransmitting on: 11/29/2024 02:31 PM EST History and Physical Notes * HPI (History of Present Illness) Category Sub-Category Detail Notes Category Not es Cardiology Short of Breath Chest Pain Palpitations Dizziness Fatigue Examination Category Sub-Category Detail Notes Category Not es General Examination HEENT: unremarkable, facial swelling is less Heart: seems RSR, 100 Lungs: decreased breath margaret nds Abdomen: soft [...] Date Referring Provider Referred Provider Not es 08/07/2025 Shauna Almanzar , needs phys ical and pulmonary rehab
--- OUTSIDE RECORDS SUMMARY | 2025-08-10 10:12 | XMS_ITS ---
Author Organization [facility] Address [address] [place] [address] [place] [address] Phone Care Team Providers Care Mill Crane Operator Name Role Phone Sukumar CUEVAS, Rocky Griggs [ ] Conditions or Problems No information available. Medications Medication Instructions Start Date Stop Date Generic Name [facility] Provider warfarin warfarin Rocky Patino MD potassium citrate (replacement) 99 mg capsule potassium citrate [id number] Lulú Ciro Medications Administered No information available. Allergies, Adverse Reactions, Alerts No information available. Results Date Name Value Unit Range Flag Description Office Visit: Office Visit: 4 MEDS REVIEW Done Documenta tion of current medications (procedure) SMOK STATUS Former smoker Tob acco smoking status Plan of Care Type Date Detail Appointment 11:00 AM Rocky Patino MD, [address] [place] [address], [address], [place], [address], Pending order CMP Pending order CBC with Differe ntial Pending order Voriconazole Lev el Procedures Code Procedure Name Date Entry Date G2211 Complex E&M visit add-on (G2211) CPT-76127 CMP [id number] CBC with Differential 2024 CPT-07266 Voriconazole Level 6 Vital Signs Date Name Value Unit Description BMI (Body Mass Index) 20.57 kg/m2 Bod y Mass Index (Ratio) Body Temperature 97.4 [degF] temperat ure E&M BP Diastolic 56 mm[Hg] blood pressu re, diastolic BP Systolic 114 mm[Hg] blood pressur e, systolic Heart Rate 60 /min pulse rate Height 65 [in_us] height E&M Respiratory Rate 16 /min respirat ory rate E&M Weight Measured 123.6 [lb_av] weight E& M Weight Measured 123.6 [lb_av] weight E& M Immunizations No information available. Advance Directives No information available.
--- OUTSIDE RECORDS SUMMARY | 2025-09-29 14:30 | XMS_ITS | Encounter Summary ---
Author Organization [facility] Address [address] [place] [address] Care Team Providers Care Ore Washer Name Role Phone Rocky Almanzar MD Primary Care Provider [phone] Reason for Visit * Reason Comments Med Refill Encounter Details Date Type Department Care Team (Late st Contact Info) Description 09/01/2025 Refill [facility] Endocrinology [address] [place] [address] Jason Romero MD [address] [address] Type 2 diabetes mellitus with [...] 9:40 AM EST Office Visit [facility] Endocrinology [address] [place] [address] Melany Rosales, DO [address] [place] [address] 01/05/2026 11:00 AM EST Office Visit [facility] [place] [address] [place] [address] Vivian Macias S, OD [address] [place] [address] documented as of this encounter [...] documented as of this encounter Care Teams Ore Washer Relationship Specialty Start Date End Date Rocky Almanzar MD [address] [place] [address] PCP - General 03/18/21 documented as of this encounter
--- OUTSIDE RECORDS SUMMARY | 2025-09-29 14:31 | XMS_ITS | Clinical Summary ---
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 Provider warfarin warfarin Rocky Patino MD potassium citrate (replacement) 99 mg capsule potassium citrate 07681941752 Chelse a Ciro VORICONAZOLE 200 MG TABS Take 1 tablet by mouth once a day voriconazole 44850479093 Rocky Patino MD MINOCYCLINE HCL 100 MG CAPS 1 capsule by mouth twice a day Take one twice a day for three days then only take 1 once a day minocycline 00435517804 Rocky Patino MD budesonide 3 mg by mouth as needed as directed 06/15 budesonide Flavio Mack budesonide 3 mg by mouth as needed as directed 06/15 budesonide Jhai Angel EZETIMIBE 10 MG TABS 1 tablet by mouth once a day 04/17 ezetimibe 23765724000 eros Angel XARELTO 20 MG TABS 04/17 rivaroxaban 81277526674 [facility] Stanley PRAVASTATIN SODIUM 20 MG TABS 1 tablet by mouth once a day 04/17 pravastatin 71300140789 Hugh Angel aspirin 81 mg capsule 1 capsule by mouth once a day 04/17 aspirin eros Angel ITRACONAZOLE 100 MG CAPS Take 2 capsule by mouth twice a day 04/14 itraconazole 33718964593 Anne Gaurang ITRACONAZOLE 100 MG CAPS TAKE TWO CAPSULES BY MOUTH TWICE DAILY itraconazole 46487454663 Rocky Patino MD IPRATROPIUM-ALBU TEROL 0.5-2.5 (3) MG/3ML SOLN 01/19 ipratropium-albut [place] 28990631553 Amrita Herminia JARDIANCE 10 MG TABS 1 tablet by mouth once a day 01/19 empagliflozin 94406786388 Amrita Hope ITRACONAZOLE 100 MG CAPS Take 2 capsule by mouth twice a day 04/14 itraconazole 01320063510 Rocky Patino MD XARELTO 20 MG TABS 04/17 rivaroxaban 27059484931 [facility] aspirin 81 mg capsule 1 capsule by mouth once a day 04/17 aspirin Laiba Sonu budesonide 9 mg by mouth as needed as directed 04/17 budesonide Laiba Sonu VITAMIN D 25 MCG (1000 UT) TABS 1 tablet by mouth once a day cholecalciferol (vitamin d3) 28271143398 Laiba Sonu JARDIANCE 10 MG TABS 1 tablet by mouth once a day 01/19 empagliflozin 44598383703 Laiba Sonu EZETIMIBE 10 MG TABS 1 tablet by mouth once a day 04/17 ezetimibe 81101853984 Laiba Sonu insulin lispro protamine-lispro 100 unit/mL (75-25) subcutaneous susp insulin lispro protamin-lispro Laiba Sonu IPRATROPIUM-ALBU TEROL 0.5-2.5 (3) MG/3ML SOLN ipratropium-albut [place] 89650018021 Laiba Sonu LEVOTHYROXINE SODIUM 50 MCG TABS 1 tablet by mouth once a day levothyroxine 97296938773 Laiba Sonu METFORMIN HCL 500 MG TABS 1 tablet by mouth once a day metformin 22446340483 Laiba Sonu MIRTAZAPINE 15 MG TABS 1 tablet by mouth once a day mirtazapine 04997989517 Laiba Sonu MYCOPHENOLATE MOFETIL 500 MG TABS 1 tablet by mouth twice a day mycophenolate mofetil 96182137991 Laiba Sonu PRAVASTATIN SODIUM 20 MG TABS 1 tablet by mouth once a day 04/17 pravastatin 57380907595 Laiba Sonu URSODIOL 500 MG TABS 1 tablet by mouth twice a day ursodiol 23492415183 Laiba Sonu Medications Administered No information available. 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, SUPPLY CHAIN ANALYST FALLRSKANILTON yes Fall ris k assessment Lab [...] Appointment 11:00 AM Rocky Patino MD, [address] [facility], [address], [place], [address], Pending order CMP Pending order CBC with [...] Date G2 Complex E&M visit add-on (G221) CPT-12455 CMP [id number] CBC with Differential 2024 CPT-17863 Voriconazole Level 6 CPT-elizabeth New Oral Antibiotic CPT-coral Change oral antibiotics 2024 G2211 Complex E&M visit add-on (G2211) G2211 Complex E&M visit add-on (G2211) CPT-80120 CMP [id number] CBC with Differential 2024 CPT-49563 BNP CPT-30652 Itraconazole Level 3 CPT-Cooral Continue oral antibiotics 20 29/04/13 G2211 Complex E&M visit add-on (G2211) CPT-Cooral Continue oral antibiotics 27/02/11 CPT-42997 CMP [id number] CBC with Differential 2024 CPT-15337 Itraconazole Level 1 CPT-86285 BNP CPT-elizabeth New Oral Antibiotic CPT-99994 CMP [id number] CBC with Differential 2024 CPT-14107 CD4 21381 Fungitell, serum (1-3) D-Glucan Assay 03/07/12 CPT-28310 Urine Culture & Sensitivity [id number], [id number] Urinalysis CPT-cf Fungal Culture & Sensitivity CPT-25815 BNP Vital Signs Date Name Value Unit [...]
--- OUTSIDE RECORDS SUMMARY | 2025-09-29 14:31 | XMS_ITS | Patient Health Record ---
Author Organization [facility] Address [address] [facility] [address] [id number] Care Team Providers Care Wrapper Sheeter Name Role Phone Shauna Almanzar Primary Care Provider Spurger Emir Unavailable [phone] Nino Burnsa Unavailable [phone] Allergies Allergen (clinical drug ingredient) Drug/Non Drug [...] 229 Performing Lab: Notes/Report: Test performed by [facility] , [address], [place] [address] Kristian Trevino MD, Fiberglass Grinder CLIA: [id number] Sodium 138 135-145 mmol/L Potassium 4.3 3.5-5.3 [...] 5.5 Performing Lab: Notes/Report: Test performed by [facility] , [address], [place] [address] Kristian Trevino MD, Fiberglass Grinder CLIA: [id number] Sodium 139 135-145 mmol/L Potassium 3.7 3.5-5.3 [...] 695 Performing Lab: Notes/Report: Test performed by [email or web address] [employer] [address] [place] [address] , [address], [place] [address] Kristian Trevino MD, Fiberglass Grinder CLIA: [id number] Albumin/Creatinine Ratio, Urine 695 0-30 ug/mg Microalbumin, Urine, Random 16.4 Creatinine, Urine 23.6 H-TSH Reviewed date:11/13/2024 01:33:09 PM Interpretation:Normal Performing Lab: Notes/Report: TSH 3.05 0.465-4.68 uIU/mL Urinalysis - Inhouse Reviewed date:01/18/2025 02:07:53 PM [...] - 38 platlet 447 100 - 400 Cologuard Reviewed date:08/27/2025 03:18:22 PM Interpretation:Negative Performing Lab: Notes/Report: Negative Cologuard Negative H-CBC Reviewed date:11/04/2024 10:00:59 AM Interpretation: Performing [...] new Glycohemoglobin A1c (in hous e) Reviewed date:07/07/2025 10:18:42 AM Interpretation:6.9 Performing Lab: Notes/Report: 6.9 glycohemoglobin 6.9% 5 - 6.5 % P-Basic Metabolic Panel (BMP ) Reviewed date:07/07/2025 10:18:42 AM Interpretation:Glu 175 Performing Lab: Notes/Report: CLIA: [id number] Kristian Trevino MD, Fiberglass Grinder [address] [place] [address] , [facility], [place] [address] Test performed by [email or web address], [facility] Sodium 140 135-145 mmol/L Potassium 4.1 3.5-5.3 mmol/L Chloride 105 97-108 mmol/L CO2 22 20-32 mmol/L Glucose 175 65-99 mg/dL BUN 12 8-23 mg/dL Creatinine 1.26 0.70-1.30 mg/dL Calcium 9.4 8.6-10.4 mg/dL eGFR by Creatinine 60 >59 mL/min/1.73m2 P-Cortisol, Random Reviewed date:07/07/2025 10:18:42 AM Interpretation: Normal Performing Lab: Notes/Report: CLIA: [id number] Kristian Trevino MD, Fiberglass Grinder [address] [place] [address] , [place] [address] Test performed by [facility] Cortisol, Random 7.7 CORTISOL REFERENCE RANGE AM Serum: 6.0-18.4 ug/dL PM Serum: 2.7-10.5 ug/dL P-Iron Reviewed date:07/07/2025 10:18:42 AM Interpretation:28 Performing Lab: Notes/Report: Test performed by [facility] [address] [place] [address] , [place] [address] Kristian Trevino MD, Fiberglass Grinder CLIA: [id number] Iron 28 59-158 ug/dL P-TSH Reviewed date:07/07/2025 10:18:42 AM Interpretation:6.42 Performing Lab: Notes/Report: Test performed by [facility] [address] [place] [address] , [place] [address] Kristian Trevino MD, Fiberglass Grinder CLIA: [id number] TSH 6.42 0.43-5.25 mU/L P-Vitamin D 25-Hydroxy Reviewed date:06/10/2025 08:30:05 AM Interpretation:Normal Performing Lab: Notes/Report: Test performed by [facility] [address] [place] [address] , [address], [place] [address] Kristian Trevino MD, Fiberglass Grinder CLIA: [id number] Vitamin D 25-Hydroxy 57.8 30.0-100.0 ng/mL Interpretation of Vitamin D 25 OH: < 20 ng/mL - Deficiency 20 - 29 ng/mL - Insufficiency 30 - 100 ng/mL - Sufficiency > 100 ng/mL - Super-therapeutic- toxicity may occur above this level. Clinical correlation required. P-TSH reflex to FT4 Reviewed date:06/10/2025 08:30:05 AM Interpretation:Normal Performing Lab: Notes/Report: Test performed by [email or web address] , [address], [place] [address] Kristian Trevino MD, Fiberglass Grinder CLIA: [id number] TSH reflex to FT4 3.44 0.43-5.25 mU/L P-Sed Rate (ESR) Reviewed date:06/10/2025 08:30:05 AM Interpretation:31 Performing Lab: Notes/Report: Test performed by [facility] , [facility], [place] [address] Kristian Trevino MD, Fiberglass Grinder CLIA: [id number] Erythrocyte Sedimentation Ra te (ESR), Automated 31 <21 mm/hr M-J-Oghmisxf Protein (CRP) Reviewed date:06/10/2025 08:30:05 AM Interpretation:4.00 Performing Lab: Notes/Report: Test performed by [facility] , [facility] [place] [address] Kristian Trevino MD, Fiberglass Grinder CLIA: [id number] C-Reactive Protein (CRP) 4.00 <0.50 mg/dL P-CPK Reviewed date:06/10/2025 08:30:05 AM Interpretation:23 Performing Lab: Notes/Report: Test performed by [email or web address] , [place] [address] Kristian Trevino MD, Fiberglass Grinder CLIA: [id number] Creatine Kinase 23 20-200 U/L P-Comprehensive Metabolic Pa tarah (CMP) Reviewed date:06/10/2025 08:30:05 AM Interpretation:K 3.0, Glu 245, Creat 1.52, eGFR 48, Pro 5.8, Alb 3.2, Alk Phos 232 Performing Lab: Notes/Report: Test performed by [facility] [address] [facility] [place] [address] Kristian Trevino MD, Fiberglass Grinder CLIA: [id number] Sodium 141 135-145 mmol/L Potassium 3.0 3.5-5.3 [...] - 38 platlet 538 100 - 400 Glycohemoglobin A1c (in hous e) Reviewed date:10/10/2024 [...] every 6 hrs Active [facility] [address] [place] - as directed 05/12/2025 Not-Taking Warfarin Sodium [...] W/U Status Risk Notes Problem Essential hypertension (08932285) Essential (primary) hypertension (I10) Active confirmed Problem Vitamin D deficiency (91909863) Vitamin D deficiency (E55.9) Active confirmed Problem Essential hypertension (70969359) Essential hypertension (I10) Active confirmed Problem Screening for malignant neoplasm of prostate (727317845) Prostate cancer screening (Z12.5) Active confirmed Problem Anorexia (72924243) Anorexia (R63.0) Active con firmed Problem Paroxysmal atrial fibrillation (194946820) Paroxysmal atrial fibrillation (I48.0) Active confirmed Problem Hyperglycemia due to type 2 diabetes mellitus (954825288936108) Type 2 diabetes mellitus with hyperglycemia (E11.65) Active confirmed Problem Mixed hyperlipidemia (219897247) Mixed hyperlipidemia (E78.2) Active confirmed Problem Hyperlipidemia (99806302) Hyperlipidemia, unspecified (E78.5) Active confirmed Problem Hereditary hemochromatosis (47688970) 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) Active confirmed Problem Chronic respiratory failure (85368903) Chronic respiratory failure with hypoxia (J96.11) Active confirmed Problem Autoimmune hepatitis (047034500) Autoimmune hepatitis (K75.4) Active confirmed Problem Cholelithiasis without obstruction (10333527) Calculus of gallbladder without cholecystitis without obstruction (K80.20) Active confirmed Problem Cochlear implant status (Z96.21) Active confirmed Problem Male erectile disorder (596630138) Male erectile disorder (N52.9) Active confirmed Problem Long-term current use of insulin (921655410) [facility] (current) use of insulin (Z79.4) Active confirmed Problem Type II diabetes mellitus without complication (533772134) Type 2 diabetes mellitus without complication (E11.9) Active confirmed Problem Acquired hypothyroidism (541696941) Acquired hypothyroidism (E03.9) Active confirmed Problem Pulmonary fibrosis (97744296) Pulmonary fibrosis (J84.10) Active confirmed Problem Chronic fatigue syndrome (05259384) Chronic fatigue (R53.82) Active confirmed Problem COPD - Chronic obstructive pulmonary disease (10695982) Chronic obstructive pulmonary disease, unspecified COPD type (J44.9) Active confirmed Problem Pneumonia (201570318) Pneumonia of right lower lobe due to infectious organism (J18.9) Active confirmed Problem Hearing loss (88534222) Hearing loss, bilateral (H91.93) Active confirmed Problem Disorder of adrenal gland (35967025) 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) Active confirmed Problem Abnormal gait (40143876) Imbalance (R26.89) Active confirmed Problem Neutropenia (817571277) Neutropenia, unspecified type (D70.9) Active confirmed Problem Interstitial lung disease (372737035) Interstitial lung disease (J84.9) Active confirmed Problem Seasonal allergic rhinitis (095365048) Seasonal allergic rhinitis, unspecified allergic rhinitis trigger (J30.2) Active confirmed Problem Granulocytopenia (395449726) 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 confirmed Problem Systemic lupus erythematosus (95914424) Lupus (systemic lupus erythematosus) (M32.9) Active confirmed Problem Cardiac arrhythmia (883995360) Cardiac arrhythmia, unspecified cardiac arrhythmia type (I49.9) Active confirmed Problem Malnutrition, calorie (556510237) Caloric malnutrition (E46) Active confirmed Problem Benign prostatic hypertrophy without outflow obstruction (423271150) BPH without urinary obstruction (N40.0) Active confirmed Problem Allergic rhinitis caused by pollen (42781705) Acute seasonal allergic rhinitis due to pollen (J30.1) Active confirmed Problem Sensorineural hearing loss, bilateral (517810397) Sensorineural hearing loss (SNHL) of both ears (H90.3) Active confirmed Problem Cholestatic hepatitis (99495621) Cholestatic hepatitis (K75.89) Active confirmed Problem Skin sensation disturbance (49420906) Sensitive skin (R20.3) Active confirmed Problem Dilatation of aorta (53137046) Dilatation of aorta (I77.819) Active confirmed Problem Tomography - chest abnormal (482428203) Abnormal CT scan, chest (R93.89) Active confirmed Problem Left atrial dilatation (755552028) Left atrial dilatation (I51.7) Active confirmed Problem Chronic vascular insufficiency of intestine (047135082) 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 Problem Protein malnutrition (47379335) Protein malnutrition (E46) Active confirmed Vital Signs Heart Rate 105 /min 08/07/2025 Blood pressure diastolic 60 mm Hg 08/07/2025 Height 65 in 08/07/2025 Blood pressure systolic 102 mm Hg 08/07/2025 Weight 123.6 lbs 08/07/2025 BMI 20.57 kg/m2 08/07/2025 Encounters Encounter Location Date Provider Diagnosis [facility] [address] [facility] [address] [place], [place] [id number] 10/09/2024 J Rogerio Yohan Lesion of adrenal gl and E27.9 ; Essential hypertension I10 ; Type 2 diabetes mellitus without complication E11.9 ; Acquired hypothyroidism E03.9 ; Hearing loss, bilateral H91.93 ; Cochlear implant status Z96.21 ; Protein malnutrition E46 ; Chronic obstructive pulmonary disease, unspecified COPD type J44.9 and Encounter for immunization Z23 [facility] [address] [facility] [address] [place], [place] [id number] 11/03/2024 Emir Berger Acute cough R05.1 [facility] [address] [facility] [address] [place] [id number] 11/07/2024 Shauna Almanzar Type 2 diabetes aquilino itus without complication E11.9 ; Acquired hypothyroidism E03.9 and Hereditary hemochromatosis E83.110 [facility] [address] [facility] [address] [place] [id number] 01/09/2025 Shauna Almanzar Type 2 diabetes aquilino itus without complication E11.9 ; Hereditary hemochromatosis E83.110 ; Cochlear implant status Z96.21 ; Chronic obstructive pulmonary disease, unspecified COPD type J44.9 ; Essential (primary) hypertension I10 ; Protein malnutrition E46 and Gross hematuria R31.0 [facility] [address] [facility] [address] [place], [place] [id number] 01/15/2025 Shauna Almanzar Interstitial lung disease J84.9 ; 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 ; Autoimmune hepatitis K75.4 ; Protein malnutrition E46 ; Cochlear implant status Z96.21 ; Type 2 diabetes mellitus without complication E11.9 and Hematuria R31.9 [facility] [address] [facility] [address] [place] [id number] 02/11/2025 Emir Spurger Type 2 diabetes aquilino itus with hyperglycemia E11.65 ; joint terminal attack controller (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.4 ; Gross hematuria R31.0 and Body mass index (BMI) of 19.0 to 19.9 in adult Z68.1 [facility] [address] [facility] [address] [place] [id number] 03/13/2025 Doretha Burns Drug interaction Z78 .9 [facility] [address] [facility] [address] [place] [id number] 04/02/2025 Shauna Almanzar Type 2 diabetes aquilino itus without complication E11.9 ; 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 ; Cholestatic hepatitis K75.89 ; joint terminal attack controller (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.4 ; 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 ; Generalized weakness R53.1 and BMI 20.0-20.9, adult Z68.20 [facility] [address] [facility] [address] [id number] 04/30/2025 Shauna Almanzar Type 2 diabetes aquilino itus with hyperglycemia E11.65 ; joint terminal attack controller (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.4 ; Adrenal [...] adult Z68.22 and Cochlear implant status Z96.21 [facility] [address] [facility] [address] [id number] 06/09/2025 Emir Spurger Generalized weakness R53.1 ; Anorexia R63.0 and Vitamin D deficiency E55.9 [facility] [address] [facility] [address] [id number] 07/03/2025 Shauna Almanzar Hypokalemia E87.6 ; Essential hypertension I10 ; Chronic fatigue R53.82 ; Protein malnutrition E46 ; Type 2 diabetes mellitus with hyperglycemia E11.65 ; joint terminal attack controller (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.4 ; 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 ; 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 and BMI 21.0-21.9, adult Z68.21 [facility] [address] [facility] [address] [id number] 08/07/2025 Shauna Almanzar Type 2 diabetes aquilino itus without complication E11.9 ; Acquired hypothyroidism E03.9 ; Hereditary hemochromatosis E83.110 ; Cochlear implant status Z96.21 ; Interstitial lung disease J84.9 ; [facility] (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.4 and 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 [facility] [address] [facility] [address] [id number] 11/03/2024 Emir Spurger [facility] [address] [facility] [address] [id number] 01/12/2025 Shauna Almanzar [facility] [address] [facility] [address], [place] [id number] 05/12/2025 Shauna Almanzar [facility] [address] [place], [place] [id number] 05/12/2025 Shauna Almanzar [facility] [address] [place] [id number] 06/04/2025 Shauna Almanzar [facility] [address] [place] [id number] 06/10/2025 Emir Spurger [facility] [address] [place] [id number] 06/10/2025 Shauna Almanzar [facility] [address] [place] [id number] 06/23/2025 Shauna Almanzar Colon cancer screeni Z12.11 [facility] [address] [place] [id number] 07/06/2025 Shauna Almanzar [facility] [address] [place] [id number] 07/07/2025 Shauna Almanzar [facility] [address] [place] [id number] 07/16/2025 Shauna Almanzar [facility] [address] [place], [place] [id number] 08/27/2025 Shauna Almanzar Assessments Encounter Date Diagnosis [...] are the ones managing this medication. 04/30/2025 joint terminal attack controller (current) use of insulin (ICD-10 - Z79.4) 04/30/2025 Type 2 diabetes mellitus with hyperglycemia (ICD-10 - E11.65) 10/09/2024 Essential hypertension (ICD-10 - I10) 10/09/2024 Lesion of adrenal gland (ICD-10 - E27.9) 10/10/24: Dr. Almnazar spoke with Dr. Villarreal regarding the adrenal [...] needs to resume use of his CGM 04/02/2025 Type 2 diabetes mellitus without complication (ICD-10 - E11.9) 02/11/2025 [facility] (current) use of insulin (ICD-10 - Z79.4) 06/09/2025 Anorexia (ICD-10 - R63.0) Boost or Ensure 1 can bid 06/09/2025 Generalized weakness (ICD-10 - R53.1) 06/23/2025 Colon cancer screening (ICD-10 - Z12.11) 07/03/2025 Hypokalemia (ICD-10 - E87.6) 07/03/2025 Essential hypertension (ICD-10 - I10) 08/07/2025 Type 2 diabetes mellitus without complication (ICD-10 - E11.9) 08/07/2025 Acquired hypothyroidism (ICD-10 - E03.9) 01/09/2025 Cochlear implant status (ICD-10 - Z96.21) 06/09/2025 Vitamin D deficiency (ICD-10 - E55.9) 07/03/2025 Chronic fatigue (ICD-10 - R53.82) 04/02/2025 Adrenal abnormality (ICD-10 - E27.9) 02/11/2025 Gross hematuria (ICD-10 - R31.0) Plan follow up with Dr. Lund soon, after he sees ID and GI in the next week 01/15/2025 Autoimmune hepatitis (ICD-10 - K75.4) 11/07/2024 Hereditary hemochromatosis (ICD-10 - E83.110) 10/09/2024 Type 2 diabetes mellitus without complication (ICD-10 - E11.9) 04/30/2025 Adrenal abnormality (ICD-10 - E27.9) 04/30/2025 Interstitial lung disease (ICD-10 - J84.9) 10/09/2024 Acquired hypothyroidism (ICD-10 - E03.9) 01/09/2025 Chronic obstructive pulmonary disease, unspecified COPD type (ICD-10 - J44.9) 01/15/2025 Protein malnutrition (ICD-10 - E46) 07/03/2025 Protein malnutrition (ICD-10 - E46) 08/07/2025 Hereditary hemochromatosis (ICD-10 - E83.110) 02/11/2025 Body mass index (BMI) of 19.0 to 19.9 in adult (ICD-10 - Z68.1) 04/02/2025 Cholestatic hepatitis (ICD-10 - K75.89) 04/02/2025 joint terminal attack controller (current) use of insulin (ICD-10 - Z79.4) 07/03/2025 Type 2 diabetes mellitus with hyperglycemia (ICD-10 - E11.65) 08/07/2025 Cochlear implant status (ICD-10 - Z96.21) 01/15/2025 Cochlear implant status (ICD-10 - Z96.21) 10/09/2024 Hearing loss, bilateral (ICD-10 - H91.93) 01/09/2025 Essential (primary) hypertension (ICD-10 - I10) 04/30/2025 Essential (primary) hypertension (ICD-10 - I10) 04/30/[address] scan, chest (ICD-10 - R93.89) 10/09/2024 Cochlear implant status (ICD-10 - Z96.21) 01/15/2025 Type 2 diabetes mellitus without complication (ICD-10 - E11.9) 01/09/2025 Protein malnutrition (ICD-10 - E46) 07/03/2025 [facility] (current) use of insulin (ICD-10 - Z79.4) 04/02/2025 Histoplasmosis (ICD-10 - B39.9) 08/07/2025 Interstitial lung disease (ICD-10 - J84.9) 08/07/2025 joint terminal attack controller (current) use of insulin (ICD-10 - Z79.4) 07/03/2025 Histoplasmosis (ICD-10 - B39.9) 01/15/2025 Hematuria (ICD-10 - R31.9) 01/09/2025 Gross hematuria (ICD-10 - R31.0) 04/02/2025 Generalized weakness (ICD-10 - R53.1) 10/09/2024 Protein malnutrition (ICD-10 - E46) 04/30/2025 Calculus of gallbladder without cholecystitis without obstruction (ICD-10 - K80.20) 04/30/2025 Hereditary hemochromatosis (ICD-10 - E83.110) 10/09/2024 Chronic obstructive pulmonary disease, unspecified COPD type (ICD-10 - J44.9) 04/02/2025 BMI 20.0-20.9, adult (ICD-10 - Z68.20) 07/03/2025 Adrenal abnormality (ICD-10 - E27.9) 08/07/2025 Adrenal abnormality (ICD-10 - E27.9) 07/03/2025 BMI 21.0-21.9, adult (ICD-10 - Z68.21) 10/09/2024 Encounter for immunization (ICD-10 - Z23) 04/30/2025 Paroxysmal atrial fibrillation (ICD-10 - I48.0) [...] [address], [place], [id number], Insurance Providers Payer Name Payer Address Payer Phone Subscriber Number Group Number Insured Name Patient Relationship to Insured Coverage Start Date Coverage End Date [facility] [address] [address] [place] [address] [phone] [id number] HERMILA GOLDEN Self - patient is the insured Medical (General) History Medical History History ICD Code Seasonal Allergies Kidney Stones Steatohepatitis hemachromatosis,(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 Smalls and Dr. Thakur Atrial dysrrhythmia, see notes 2011 hearing loss 2013, hearing aids Impaired fasting glucose Gets yearly eye exams, [facility] Questionable Dx Lupus erythematosus 2016 Granuloma [...]
--- OUTSIDE RECORDS SUMMARY | 2025-09-29 14:32 | XMS_ITS | Clinical Summary ---
[facility] Address [address] [place] [address] Care Team Providers Care Business Machine Mechanic Name Role Phone Provider, No Known Primary [...] 08/15/2016 AAA SCREEN ONCE Completed 12/07/2016 Insurance [facility] Medicare [employer] PPO Care Teams Business Machine Mechanic Relationship Specialty Start Date End Date Provider, No Known [facility] [place] [address] PCP - General 01/14/25
--- OUTSIDE RECORDS SUMMARY | 2025-09-29 14:32 | XMS_ITS | Encounter Summary ---
Author Organization [facility] Address [address] [place] [address] Care Team Providers Care Director Of State Name Role Phone Rocky Almanzar MD Primary Care Provider [phone] Reason for Visit * Reason Comments Med Refill Encounter Details Date Type Department Care Team (Late Contact Info) Description 11/10/2021 Refill [facility] [address] [place] [address] Jason Romero MD [address] [address] Type 2 diabetes mellitus with other specified complication, with long-term current use of insulin ([facility]) Social History Tobacco Use Types Packs/Day [...] Visit [facility] [address] [place] [id number] Melany Rosales DO [address] [place] [address] 01/05/2026 11:00 AM EST Office Visit [facility] [place] [address], [address] [place] [address] Vivian Macias S, OD [address] [facility] [address] [place] [address] documented as of this encounter [...] as of this encounter Care Teams Director Of State Relationship Specialty Start Date End Date Rocky Almanzar MD [address] [place] [address] PCP - General 03/18/21 documented as of this encounter
--- OUTSIDE RECORDS SUMMARY | 2025-09-29 14:32 | XMS_ITS | Encounter Summary ---
Author Organization Healthcare Address [address] [place] [address] Care Team Providers Care Fuel Dock Attendant Name Role Phone Rocky Almanzar MD Primary Care Provider [phone] Reason for Visit * Reason Comments Med Refill Encounter Details Date Type Department Care Team (Late Contact Info) Description 05/20/2021 Refill [facility] [address] [place] [address] Jason Romero MD [address] [address] Social History Tobacco Use [...] Visit [facility] [address] [place] [address] Melany Rosales, DO [address] [place] [address] 01/05/2026 11:00 AM EST Office Visit [facility] [place] [address] [place] [phone] Vivian Macias S, OD [address] [place] [address] documented as of this encounter Visit Diagnoses Not on filedocumented in this encounter Additional Health Concerns Infection Onset Date Last Indicated Resolved Time 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
--- OUTSIDE RECORDS SUMMARY | 2025-09-29 14:33 | XMS_ITS | Clinical Summary ---
Author Organization [facility] Address [address] [place] [address] Care Team Providers Care Marine Engine Driver Name Role Phone Rocky Almanzar MD Primary Care Provider [phone] Allergies Active Allergy Reactions Criticality Noted Date [...] Department Care Team Description 09/01/[address] [facility] Endocrinology [address] [place] [address] Jason Romero MD Type 2 diabetes mellitus with hyperglycemia, with long-term current use of insulin 07/20/2025 1:30 PM EDT [facility] [address] [address] 07/20/2025 [facility] [address] [address] Melany Rosales DO Type 2 diabetes mellitus with hyperglycemia, with long-term current use of insulin ([facility]) (Primary Dx) 07/20/2025 Travel 07/17/2025 2:00 PM EDT Office Visit [facility] Audiology [address] [place] [address] Lottie Lund AuD Sensorineural hearing loss (SNHL) of both ears 07/17/2025 Travel 07/10/2025 Orders Only [facility] Endocrinology [address] [place] [address] Melany Rosales DO 07/09/2025 Orders Only [facility] Endocrinology [address] [place] [address] Melany Rosales, 07/09/2025 Results Follow-Up [facility] Endocrinology [address] [place] [place] [address] Melany Rosales, 07/08/2025 Orders Only [facility] Endocrinology [address] [place] [address] Melany Rosales, 07/07/2025 11:40 AM EDT Office Visit [facility] Endocrinology [address] [place] [address] Melany Rosales, DO Type 2 diabetes mellitus with hyperglycemia, with long-term current use of insulin (CMS/HCC) (Primary Dx); Hemochromatosis, unspecified hemochromatosis type; Acquired hypothyroidism; Histoplasmosis; Elevation of adrenocorticotropic hormone (ACTH) 07/07/2025 Travel 06/30/2025 Refill [facility] Endocrinology [address] [place] [address] Jason Romero MD from Last 3 Months [...] Description 01/05/2026 9:40 AM EST Office Visit [facility] Endocrinology [address] [place] [address] Melany Rosales, DO [address] [place] [address] 01/05/2026 11:00 AM EST Office Visit [facility] [address] [place] [address] Vivian Macias S, OD [address] [place] [address] Health Maintenance Due Date Last Done Comments [facility]-Depression Screening 1950 [facility]-Medicare Annual Wellness (AWV) 1950 [facility]-Infant/Child/Adol SDOH Screenings 1951 Diabetes: Dental Exam 1961 [facility]- SDOH Screenings 1969 [facility]-Adult SDOH Screenings 1969 [facility]-DTaP,Tdap,and Td Vaccines (1 - Tdap) 1970 [facility]-Zoster Vaccines (1 of 2) 1970 CT Colonography 1996 FIT-DNA 1996 FIT 1996 FOBT 1996 Sigmoidoscopy 1996 [facility]-Abdominal Aortic Aneurysm (AAA) Screening 2016 [id number] Vaccine ( season) 2025 10/13/2024, 10/01/2023, 09/20/2022, [...] this topic Medical Devices Implanted Type Area Cattle Care Worker Device Identifier Shelf Expiration Date Model / Serial / Lot Roseline Stanleyk Advantage Ci Hifocus 1j Electrode--06/05 Implanted:06/05 by Ky Del Rio MD (Quantity not on file) Cochlear Left: Ear Local Marketers [id number] / [id number] / Description:Roseline StanleyK Advant age CI HiFocus 1J electrode--cochlear implant by Dr. Del Rio at [facility] on 06/21/2017, operative note in Epic. LEFT EAR. STERIS CorporationMICAELA ULTRA 3D Cochlear implant REF: [id number] Serial number: [id number] Procedures Procedure Name Priority Date/Time Associated Diagnosis [...] CENTER LAB Comment: Testing performed on Robert Forming Operator, standardized against [facility] Reference Standard concentration values assigned by LC-MS/MS [...] BLOOD ORDERABLES Final Result Performing Organization Address [facility] Co de Phone Number [facility] [address] [place] [address] * Cortisol, 30 (07/20/2025 2:03 PM EDT) Pathologist [facility] Cortisol,Time=30 18.30 Before 10am: 3.7 - 19.4. After 5pm: 2.9 - 17.3 ug/dL 07/20/2025 8:19 PM EDT [facility] Comment: Testing performed on [employer] Forming Operator, standardized against [facility] Reference Standard concentration values assigned by LC-MS/MS [...] BLOOD ORDERABLES Final Result Performing Organization Address [facility] Co de Phone Number [facility] [address] [place] [address] * (ABNORMAL) ACTH (07/20/2025 1:28 PM EDT) Only the most recent of2 resultswithin the time period is included. ACTH 68.2(H) 7.2 - 63 pg/mL 07/20/2025 5:38 PM EDT [facility] Blood Venous blood specimen / Unknown Venipuncture / Unknown 07/20/2025 1:28 PM EDT 07/20/2025 1:42 PM EDT us Melany Rosales DO LAB BLOOD ORDERABLES Final Result Performing Organization Address [facility] Phone Number [facility] [address] [place] [address] * Cortisol, Time=0 (07/20/2025 1:28 PM EDT) Only the most recent of2 resultswithin the time period is included. Pathologist [facility] Cortisol 8.20 Before 10am: 3.7 - 19.4. After 5pm: 2.9 - 17.3 ug/dL 07/20/2025 8:23 PM EDT [facility] Comment:Testing performed on [employer] Forming Operator, standardized against [facility] Reference Standard concentration values assigned by LC-MS/MS and verified by BCR 192 and BCR 193 certified reference materials. Blood Venous blood specimen / Unknown Venipuncture / Unknown 07/20/2025 1:28 PM EDT 07/20/2025 4:08 PM EDT us Melany Rosales DO LAB REF LAB BLOOD AND FLUID ORD Final Result Performing Organization Address [facility] de Phone Number [facility] [address] [place] [address] * HM Lipid Panel (07/08/2025 3:03 PM [...] [facility] Kit Lot Number [id number] [facility] Kit Expiration Date 04/2027 [facility] Blood Venous blood specimen / Unknown 07/07/2025 12:03 PM EDT Melany Rosales DO POINT OF CARE TEST ENTER/ED IT ORDERABLES Edited Result - Final [facility] [address] [place] [address] * COLONOSCOPY (08/03/2017) Anatomical Region Laterality Modality Endoscopy Narrative 08/03/2017 Ordered by an unspecified provider. 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
[2025-09-29 14:51] LABS: Hematocrit 36.1 % (42.0-52.0); Hemoglobin 10.9 g/dL (14.1-18.0); Immature Granulocytes % 2.6 %; Mean Corpuscular HGB Conc 30.2 g/dL (31.8-35.4); Mean Corpuscular Hemoglobin 23.7 pg (27.0-31.2); Mean Corpuscular Volume 78.5 fl (80-94); Nucleated Red Blood Cells % 0 %; Platelet Count 330 K/mm3 (142-424); Red Blood Count 4.60 M/mm3 (4.60-6.20); Red Cell Distribution Width-SD 54.4 fL; White Blood Count 2.7 K/mm3 (4.8-10.8)
[2025-09-29 15:01] LABS: INR 1.20 (0.9-1.1); Prothrombin Time 13.1 seconds (10.1-12.5)
[2025-09-29 15:32] LABS: Microcytosis 1+; Total Cells Counted 100
[2025-09-29 16:17] LABS: Albumin Level 3.6 g/dl (3.5-5.0); Chloride 103 mmol/L (98-107); Potassium 4.6 mmoL/L (3.5-5.1); Sodium 139 mmol/L (136-145)
[2025-09-29 16:19] LABS: Blood Urea Nitrogen 38 mg/dl (9-20); Creatinine,Serum 1.20 mg/dl (0.66-1.25); Estimated Glomerular Filt Rate 59 ml/min (>60); GFR (African American) 72 ML/MIN (>60)
[2025-09-29 16:20] LABS: Alanine Aminotransferase 31 U/L (12-78); Albumin/Globulin Ratio 1.3 (1.1-1.8); Alkaline Phosphatase 110 U/L (38-126); Anion Gap 15.6 mEq/L (5-15); Aspartate Amino Transferase 22 U/L (17-59); Bilirubin,Total 0.4 mg/dl (0.2-1.3); Calcium 9.0 mg/dl (8.4-10.2); Carbon Dioxide 25 mmol/L (22.0-30.0); Globulin 2.8 g/dL (1.3-3.2); Glucose 299 mg/dl (74-100); Total Protein,Serum 6.4 g/dl (6.3-8.2)
== END 2025-09-29 23:59 | disposition home or self-care (01) ==
PROVIDERS: Internal Medicine Gastroenterology; PCP Family Medicine; Visit Provider Nurse Practitioner
DX: K74.69 Other cirrhosis of liver (principal); B19.20 Unspecified viral hepatitis C without hepatic coma; I48.0 Paroxysmal atrial fibrillation; Z79.01 Long term (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 of anticoagulants
CPT/HCPCS: 36415; 80053; 85007; 85025; 85610

== ENCOUNTER 2025-10-05 13:03 | Outpatient (CLI) | payer MEDICARE, SELFPAY ==
--- OUTSIDE RECORDS SUMMARY | 2025-08-10 10:12 | XMS_ITS ---
Author Organization [facility] Address [address] [place] [address] [place] [address] Phone Care Team Providers Care Vice President Residential Solar Sales Name Role Phone Sukumar CUEVAS, Rocky Griggs [ ] Conditions or Problems No information available. Medications Medication Instructions Start Date Stop Date Generic Name [facility] Provider warfarin warfarin Rocky Patino MD potassium citrate (replacement) 99 mg capsule potassium citrate [id number] Lulú Ciro Medications Administered No information available. Allergies, Adverse Reactions, Alerts No information available. Results Date Name Value Unit Range Flag Description Office Visit: Office Visit: 4 MEDS REVIEW Done Documenta tion of current medications (procedure) SMOK STATUS Former smoker Tob acco smoking status Plan of Care Type Date Detail Appointment 11:00 AM Rocky Patino MD, [address] [place] [address], [address], [place], [address], Pending order CMP Pending order CBC with Differe ntial Pending order Voriconazole Lev el Procedures Code Procedure Name Date Entry Date G2211 Complex E&M visit add-on (G2211) CPT-61651 CMP [id number] CBC with Differential 2024 CPT-68645 Voriconazole Level 6 Vital Signs Date Name [...]
--- OUTSIDE RECORDS SUMMARY | 2025-10-05 13:08 | XMS_ITS | Clinical Summary ---
Author Organization [facility] Address [address] [place] [address] Phone Care Team Providers Care Staff Combat Information Center Officer Name Role Phone Rocky Patino MD [ ] Conditions or Problems Problem Name Problem Code Onset Date Status Entry Date Provider Comment Standard Description Annotate Immunodeficie ncy due to long line teamster therapeutic use of drug 957741636 (SNOMED CT) 01/14 Active 01/14 Rocky Patino MD Drug-induced immunodeficiency Leukopenia 20026421 (SNOMED CT) 01/14 Active 01/14 Rocky Patino MD Leukopenia Disseminated histoplasmosi s 616852368 (SNOMED CT) 01/09 Active 01/09 Echo Mccurdy 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/09 Active 01/09 Echo Mccurdy Acute pulmonary histoplasmosis capsulati Medications Medication Instructions Start Date Stop Date Generic Name [facility] Provider warfarin warfarin Rocky Patino MD potassium citrate (replacement) 99 mg capsule potassium citrate [id number] Chelse a Ciro VORICONAZOLE 200 MG TABS Take 1 tablet by mouth once a day voriconazole 39580041628 Rocky Patino MD MINOCYCLINE HCL 100 MG CAPS 1 capsule by mouth twice a day Take one twice a day for three days then only take 1 once a day minocycline 56774201624 Rocky Patino MD budesonide 3 mg by mouth as needed as directed 06/15 budesonide Flavio Mack budesonide 3 mg by mouth as needed as directed 06/15 budesonide Jhai Angel EZETIMIBE 10 MG TABS 1 tablet by mouth once a day 04/17 ezetimibe 47696597120 eros Angel XARELTO 20 MG TABS 04/17 rivaroxaban 20085986512 [facility] Stanley PRAVASTATIN SODIUM 20 MG TABS 1 tablet by mouth once a day 04/17 pravastatin 19879873477 Hugh Angel aspirin 81 mg capsule 1 capsule by mouth once a day 04/17 aspirin eros Angel ITRACONAZOLE 100 MG CAPS Take 2 capsule by mouth twice a day 04/14 itraconazole 37097643095 Anne Gaurang ITRACONAZOLE 100 MG CAPS TAKE TWO CAPSULES BY MOUTH TWICE DAILY itraconazole 65811353845 Rocky Patino MD IPRATROPIUM-ALBU TEROL 0.5-2.5 (3) MG/3ML SOLN 01/19 ipratropium-albut phoenix 89599770822 Amrita Herminia JARDIANCE 10 MG TABS 1 tablet by mouth once a day 01/19 empagliflozin 47523202397 Amrita Hope ITRACONAZOLE 100 MG CAPS Take 2 capsule by mouth twice a day 04/14 itraconazole 34428861685 Rocky Patino MD XARELTO 20 MG TABS 04/17 rivaroxaban 69331872394 [facility] aspirin 81 mg capsule 1 capsule by mouth once a day 04/17 aspirin Laiba Sonu budesonide 9 mg by mouth as needed as directed 04/17 budesonide Laiba Sonu VITAMIN D 25 MCG (1000 UT) TABS 1 tablet by mouth once a day cholecalciferol (vitamin d3) 16899621408 Laiba Sonu JARDIANCE 10 MG TABS 1 tablet by mouth once a day 01/19 empagliflozin 01428627936 Laiba Sonu EZETIMIBE 10 MG TABS 1 tablet by mouth once a day 04/17 ezetimibe 98264575155 Laiba Sonu insulin lispro protamine-lispro 100 unit/mL (75-25) subcutaneous susp insulin lispro protamin-lispro Laiba Sonu IPRATROPIUM-ALBU TEROL 0.5-2.5 (3) MG/3ML SOLN ipratropium-albut phoenix 56150790552 Laiba Sonu LEVOTHYROXINE SODIUM 50 MCG TABS 1 tablet by mouth once a day levothyroxine 74437464810 Laiba Sonu METFORMIN HCL 500 MG TABS 1 tablet by mouth once a day metformin 74218242221 Laiba Sonu MIRTAZAPINE 15 MG TABS 1 tablet by mouth once a day mirtazapine 08695519863 Laiba Sonu MYCOPHENOLATE MOFETIL 500 MG TABS 1 tablet by mouth twice a day mycophenolate mofetil 03281734056 Laiba Sonu PRAVASTATIN SODIUM 20 MG TABS 1 tablet by mouth once a day 04/17 pravastatin 24166582810 Laiba Sonu URSODIOL 500 MG TABS 1 tablet by mouth twice a day ursodiol 36501151548 Laiba Sonu Medications Administered No information available. 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, ASSISTANT PROFESSOR OF ART FALLRSKANILTON yes Fall ris k assessment Lab [...] Appointment 11:00 AM Rocky Patino MD, [address] [facility], [address], [place], [address], Pending order CMP Pending order CBC with [...] Date G2 Complex E&M visit add-on (G221) CPT-31805 CMP [id number] CBC with Differential 2024 CPT-89049 Voriconazole Level 6 CPT-elizabeth New Oral Antibiotic CPT-coral Change oral antibiotics 2024 G2211 Complex E&M visit add-on (G2211) G2211 Complex E&M visit add-on (G2211) CPT-72080 CMP [id number] CBC with Differential 2024 CPT-49064 BNP CPT-43706 Itraconazole Level 3 CPT-Cooral Continue oral antibiotics 20 29/04/13 G2211 Complex E&M visit add-on (G2211) CPT-Cooral Continue oral antibiotics 27/02/11 CPT-40838 CMP [id number] CBC with Differential 2024 CPT-00339 Itraconazole Level 1 CPT-59255 BNP CPT-elizabeth New Oral Antibiotic CPT-67188 CMP [id number] CBC with Differential 2024 CPT-72296 CD4 88798 Fungitell, serum (1-3) D-Glucan Assay 03/07/12 CPT-48718 Urine Culture & Sensitivity [id number], [id number] Urinalysis CPT-cf Fungal Culture & Sensitivity CPT-90018 BNP Vital Signs Date Name Value Unit [...]
[2025-10-05 13:51] LABS: PHA INR Fingerstick 1.3 (0.9-1.1)
== END 2025-10-05 13:54 ==
LOC: ACC 13:05
PROVIDERS: PCP Family Medicine; Visit Provider Nurse Practitioner
DX: I48.0 Paroxysmal atrial fibrillation (principal); Z79.01 Long term (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 of anticoagulants
CPT/HCPCS: 85610; 99211; G0463

== ENCOUNTER 2025-10-13 10:00 | Outpatient (RCR) | payer MEDICARE, SELFPAY | END 2025-10-13 23:59 | disposition home or self-care (01) | LOC: PT 10:00 | PROVIDERS: PCP Family Medicine; Visit Provider Family Medicine | DX: R26.89 Other abnormalities of gait and mobility (principal) | CPT/HCPCS: 97110; 97530 ==

== ENCOUNTER 2025-10-13 11:13 | Outpatient (CLI) | payer MEDICARE, SELFPAY ==
[2025-10-13 11:47] LABS: Hematocrit 36.1 % (42.0-52.0); Hemoglobin 11.0 g/dL (14.1-18.0); Immature Granulocytes % 7.3 %; Mean Corpuscular HGB Conc 30.5 g/dL (31.8-35.4); Mean Corpuscular Hemoglobin 24.2 pg (27.0-31.2); Mean Corpuscular Volume 79.3 fl (80-94); Nucleated Red Blood Cells % 0 %; Platelet Count 319 K/mm3 (142-424); Red Blood Count 4.55 M/mm3 (4.60-6.20); Red Cell Distribution Width-SD 61.4 fL; White Blood Count 3.6 K/mm3 (4.8-10.8)
[2025-10-13 13:54] LABS: Alanine Aminotransferase 100 U/L (12-78); Albumin Level 3.8 g/dl (3.5-5.0); Albumin/Globulin Ratio 1.4 (1.1-1.8); Alkaline Phosphatase 139 U/L (38-126); Anion Gap 11.4 mEq/L (5-15); Aspartate Amino Transferase 64 U/L (17-59); Bilirubin,Total 0.5 mg/dl (0.2-1.3); Blood Urea Nitrogen 37 mg/dl (9-20); Calcium 9.3 mg/dl (8.4-10.2); Carbon Dioxide 26 mmol/L (22.0-30.0); Chloride 103 mmol/L (98-107); Creatinine,Serum 1.10 mg/dl (0.66-1.25); Estimated Glomerular Filt Rate 65 ml/min (>60); GFR (African American) 79 ML/MIN (>60); Globulin 2.7 g/dL (1.3-3.2); Glucose 114 mg/dl (74-100); Potassium 4.4 mmoL/L (3.5-5.1); Sodium 136 mmol/L (136-145); Total Protein,Serum 6.5 g/dl (6.3-8.2)
[2025-10-13 15:14] LABS: Hypochromasia 1+; Total Cells Counted 100
== END 2025-10-13 23:59 | disposition home or self-care (01) ==
LOC: LAB 11:14
PROVIDERS: PCP Family Medicine; Visit Provider Internal Medicine Infectious Disease
DX: D84.821 Immunodeficiency due to drugs (principal); B39.0 Acute pulmonary histoplasmosis capsulati; Z79.899 Other long term (current) drug therapy
CPT/HCPCS: 36415; 80053; 85007; 85025

== ENCOUNTER 2025-10-15 00:31 | Inpatient (IN) | payer MEDICARE, SELFPAY ==
--- OUTSIDE RECORDS SUMMARY | 2025-01-09 06:45 | XMS_ITS ---
Author Organization [facility] Address [address] [facility] [address] [id number] Care Team Providers Care Tearoom Hostess Name Role Phone Shauna Almanzar Primary Care [...] 229 Performing Lab: Notes/Report: Test performed by [employer] [facility] [place] , [address], [place] [address] Kristian Trevino MD, Publications Sales Representative CLIA: [id number] Sodium 138 135-145 mmol/L Potassium 4.3 3.5-5.3 [...] DAY AT BEDTIME; Duration: 30 Active Nystatin 831033 UNIT/ML 5 ml Mouth/Throa t Twice a [...] capsules Orally at bedtime Active Vital Signs Weight 119.0 lbs 01/09/2025 Blood pressure systolic 110 mm Hg 01/10/20 25 Blood pressure diastolic 70 mm Hg 025 Heart Rate 89 /min 01/09/2025 Height 65 in 01/09/2025 BMI 19.80 kg/m2 01/09/2025 Encounters Encounter Location Date Provider Diagnosis [facility] [address] [facility] 36 [facility] [address] [place], [place] [id number] 01/09/2025 Shauna Almanzar Type 2 diabetes aquilino [...] Provider Name:Shauna fofana, 11/12/2025 01:30:00 PM, [address] [facility] 36 [facility], [address], [place], [id number], Progress Notes * Jose Luis GOLDEN: [birth year] (75 yo M)Acc No.[id number]:01/09/2025 Progress Notes Patient: Jose Luis BUCIO Provider: Shauna Almanzar M.D. :1950 A ge:74 Y S ex:Male Date:01/09/2025 Address:[address] [place] [address] [address], [facility] Subjective: * Chief Complaints: * 1 . 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, [facility] user name and password for portal: [email or web address], type 2 diabetes, followed at [facility], 06/05/2019 CT: healing of R lung infection [...] orally once a day , Taking Nystatin 699237 UNIT/ML Suspension 5 ml Mouth/Throat Twice a [...] :25 PM >no auth required; CPT code 08591; faxed to [facility] Anel Magallanes 04/20/2025 10:24:55 AM EDT >pt denied ultrasound * Procedure Codes: G 2211 Complex e/[place], [address] [place], [address] Urinalysis, no micro, [address]64[address] CBC WITH AUTO DIFF, 37117 VENIPUNCT, ROUTINE*, G8752 MOST RECENT SYSTOLIC BP < 140MM HG, G8754 MOST RECENT DIASTOLIC BP < 90MM HG * Follow Up: 1 Week * Images: Billing Information: * Visit Code: 39541 Office Visit, Est Pt., Level 4. * Procedure Codes: G2211 Complex e/[place]. [address] [place]. [address] Urinalysis, no micro. 94669 CBC WITH AUTO DIFF. 76534 VENIPUNCT, ROUTINE*. G8752 MOST RECENT SYSTOLIC BP < 140MM HG. G8754 MOST RECENT DIASTOLIC BP < 90MM HG. * Electronic signature of Shauna Almanzar MD on 10/15/2025 at 12:41 AM EST Sign off status: Pending * Provider: Shauna Almanzar M.D. Date: 0 01/09/2025 Generated for Printi ng/Faxing/eTransmitting on: 1 12/16/2024 12:41 AM EST History and Physical Notes * [...]
--- OUTSIDE RECORDS SUMMARY | 2025-01-15 10:00 | XMS_ITS ---
Author [facility] Address [address] [phone] Care Team Providers Care Prototype Model Maker Name Role Phone Shauna Almanzar Primary Care [...] MOUTH EVERY DAY; Duration: 30 Active Nystatin 262175 UNIT/ML 5 ml Mouth/Throa t Twice a [...] day; Duration: 30 day(s) Active Vital Signs Weight 119.8 lbs 01/15/2025 Blood pressure systolic 92 mm Hg 01/16/20 25 Blood pressure diastolic 60 mm Hg 025 Heart Rate 100 /min 01/15/2025 Height 65 in 01/15/2025 BMI 19.93 kg/m2 01/15/2025 Encounters Encounter Location Date Provider Diagnosis [facility] 1210 [facility] 36 [facility] [address] [place], [place] [id number] 01/15/2025 Shauna Almanzar Interstitial lung disease J84.9 [...] Name:Shauna fofana, 11/12/2025 01:30:00 PM, [address], [address], [place], [place], [id number], Progress Notes * Jose Luis GOLDENOB: [birth year] (75 yo M)Acc No.[id number]:01/15/2025 Progress Notes Patient: Jose Luis BUCIO Provider: Shauna Almanzar M.D. :1950 A ge:74 Y S ex:Male Date:01/15/2025 Address:[address] [place] [address] [address], [facility] Subjective: * Chief Complaints: * 1 . 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 * Procedure Codes: G2211 Complex e/[place]. [address] [place]. [address] Urinalysis, no micro. G8752 MOST RECENT SYSTOLIC BP < 140MM HG. G8754 MOST RECENT DIASTOLIC BP < 90MM HG. * Electronic signature of Shauna Almanzar MD on 10/15/2025 at 12:43 AM EST Sign off status: Pending * Provider: Shauna Almanzar M.D. Date: 0 01/15/2025 Generated for Printi ng/Fadavidg/eTransmitting on: 1 12/16/2024 12:43 AM EST History and Physical Notes * [...]
--- OUTSIDE RECORDS SUMMARY | 2025-02-11 09:00 | XMS_ITS ---
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) Active confirmed Vital Signs Weight 117.4 lbs 02/11/2025 Blood pressure systolic 110 mm Hg 02/12/20 25 Blood pressure diastolic 62 mm Hg 025 Heart Rate 100 /min 02/11/2025 Height 65 in 02/11/2025 BMI 19.53 kg/m2 02/11/2025 Encounters Encounter Location Date Provider Diagnosis [facility] [address] [facility] [address] [place] [address], [place] [phone] 02/11/2025 Emir Berger Type 2 diabetes aquilino [...] to resume use of his CGM 02/11/2025 exterminator helper termite (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 (ICD-10 - Z79.4) [...] Gross hematuria Plan follow up with Dr. Ludn soon, after he sees ID and GI in the next week Other Spoke to Dr. Villarreal in Heme/Onc today about patient. Patient is seeing ID later this week with the plan to resume Itraconazole Next Appt Details Follow Up: as scheduled,and prn, Reason: Provider Name:Shauna Merida er, 11/12/2025 01:30:00 PM, 12[address] [facility] [address], [address], [place], [place], [phone], Progress Notes * Jose Luis GOLDENOB: [birth year] (75 yo M)Acc No.[id number]:02/11/2025 Progress Notes Patient: Jose Luis BUCIO Provider: Jaden Berger M.D. :1950 A ge:74 Y S ex:Male Date:02/11/2025 Address:[address] [place] [address] [address] , [facility] Pcp:Shauna Almanzar Subjective: * Chief Complaints: * [...] Impaired fasting glucose, Gets yearly eye exams, [facility], Questionable Dx Lupus erythematosus 2016, Granuloma annulare [...] Three times a day , Discontinued Nystatin 842686 UNIT/ML Suspension 5 ml Mouth/Throat Twice a [...] * Images: Billing Information: * Visit Code: 83286 Office Visit, Est Pt., Level 4. * Procedure Codes: G2211 Complex e/m visit add on. G8752 MOST RECENT SYSTOLIC BP < 140MM HG. G8754 MOST RECENT DIASTOLIC BP < 90MM HG. * Electronic signature of Elidia Berger MD on 10/15/2025 at 12:44 AM EST Sign off status: Pending * Provider: Jaden Berger M.D. Date: 0 02/11/2025 Generated for Marissa mendoza/Rei/Khurramitting on: 1 12/16/2024 12:44 AM EST History and Physical Notes * [...]
--- OUTSIDE RECORDS SUMMARY | 2025-03-13 09:15 | XMS_ITS ---
Author Organization [facility] Address 12[address] [facility] [address] [id number] Care Team Providers Care Administrative Support Associate Name Role Phone Shauna Almanzar Primary Care Provider Doretha Burns Unavailable [phone] Allergies Allergen (clinical drug ingredient) Drug/Non Drug Allergy documented on EMR Reaction Allergy Type Onset Date Status cephalexin Cephalexin Unknown Drug Allergy Activ e REASON FOR VISIT face is swollen per Alyssa at [facility], possible interaction with budesonide and itraconazole Medications [...] day; Duration: 90 days Active Vital Signs Weight 127.4 lbs 03/13/2025 Blood pressure systolic 128 mm Hg 03/13/20 25 Blood pressure diastolic 60 mm Hg 025 Heart Rate 87 /min 03/13/2025 Height 65 in 03/13/2025 BMI 21.2 kg/m2 03/13/2025 Encounters Encounter Location Date Provider Diagnosis [facility] [address] [place] [id number] 03/13/2025 Doretha [place] Drug interaction Z78 .9 [...] 11/12/2025 01:30:00 PM, [address] [facility], [address], [place], [id number], Progress Notes * Jose Luis GOLDENOB: [birth year] (75 yo M)Acc No.[id number]:03/13/2025 Progress Notes Patient: Daniele SALAS Jose Luis Mcgregor Provider: LUCIA [place] :1950 A ge:74 Y S ex:Male Date:03/13/2025 Address:[address] [place], [place] [address] [address], [facility], [facility] Pcp:Shauna Almanzar Subjective: * Chief Complaints: * 1 . face is swollen per Alyssa at [facility], possible interaction with budesonide and itraconazole. 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 * Procedure Codes: G2211 Complex e/m visit add on. * Electronic signature of LUCIA Dean on 10/15/2025 at 12:43 AM EST Sign off status: Pending * Provider: LUCIA [place] Date: 0 03/13/2025 Generated for Marissa mendoza/Rei/Khurramitting on: 1 12/16/2024 12:43 AM EST History [...]
--- OUTSIDE RECORDS SUMMARY | 2025-04-02 09:15 | XMS_ITS ---
Author Organization [facility] Address [address] [facility] [address] [id number] Care Team Providers Care Wet Room Supervisor Name Role Phone Shauna Almanzar Primary Care [...] 5.5 Performing Lab: Notes/Report: Test performed by [email or web address], [facility]0 [facility] , [address], [place] [address] Kristian Trevino MD, Stunner Animal CLIA: [id number] Sodium 139 135-145 mmol/L Potassium 3.7 3.5-5.3 [...] 695 Performing Lab: Notes/Report: Test performed by [employer] [address] [place] [address] , [address], [place] [address] Kristian Trevino MD, [employer] CLIA: [id number] Albumin/Creatinine Ratio, Urine 695 0-30 ug/m g Microalbumin, Urine, Random 16.4 Creatinine, Urine 23.6 Reason For Referral Reason weakness, lung disea se, adrenal disease Diagnosis 1 Generalized weakness (R53.1) Referral Organization [facility] Referring Provider First Name Sahuna Beatty Referring Provider Last Name Yohan Referring Provider Speciality Family Pra ctice Referred Provider Specialty Physical The rapist General Notes Catherine Kathleen 2024 02:19:19 PM >referral assigned to scheduling. May want to contact patient first to see if he still wants referral., Genoveva Grigsby 05/18/2025 02:47:51 PM > faxed to [facility] PT Referral Priority Routine REASON FOR [...] Duration: 30 day(s) Active Vital Signs Weight 123.0 lbs 04/02/2025 Blood pressure systolic 110 mm Hg 04/02/20 25 Blood pressure diastolic 60 mm Hg 025 Heart Rate 92 /min 04/02/2025 Height 65 in 04/02/2025 BMI 20.47 kg/m2 04/02/2025 Encounters Encounter Location Date [facility] [address] [id number] 04/02/2025 Shauna Almanzar Type 2 diabetes aquilino itus without complication E11.9 ; 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 ; Cholestatic hepatitis K75.89 ; shelter (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.4 ; 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 ; Generalized weakness R53.1 and BMI 20.0-20.9, adult Z68.20 Assessments Encounter Date Diagnosis (ICD Code) Assessment Notes Treatment Notes Treatment Clinical Notes Section Notes 04/02/2025 Type 2 diabetes mellitus without complication (ICD-10 - E11.9) 04/02/2025 Adrenal abnormality (ICD-10 - E27.9) 04/02/2025 Cholestatic hepatitis (ICD-10 - K75.89) 04/02/2025 shelter (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 (ICD-10 - Z79.4) [...] Name:Shauna Merida er, 11/12/2025 01:30:00 PM, [address] [facility] 36 [facility], [address], [place], [place], [id number], Progress Notes * Jose Luis GOLDENOB: [birth year] (75 yo M)Acc No.[id number]:04/02/2025 Progress Notes Patient: Jose Luis BUCIO Provider: Shauna Almanzar M.D. :1950 A ge:75 Y S ex:Male Date:04/02/2025 Address:[address] [place] [address] , [facility] Subjective: * Chief Complaints: * 1 . [...] 06/2014, user name and password for portal: [email or web address]...[email or web address], type 2 diabetes, followed at [facility], 06/05/2019 CT: healing of R [...] eneralized weakness - R53.1 7 . B WA 20.0-20.9, adult - Z68.20? Plan: * Treatment: [...] G 2211 Complex e/[place], [address] GLYCATED HEMOGLOBIN TEST, Modifiers: QW , G8752 [...] * Images: Billing Information: * Visit Code: 52734 Office Visit, Est Pt., Level 4. * Procedure Codes: G2211 Complex e/[place]. [address] GLYCATED HEMOGLOBIN TEST. Modifiers: QW G8752 MOST RECENT SYSTOLIC BP < 140MM HG. G8754 MOST RECENT DIASTOLIC BP < 90MM HG. 3046F HEMOGLOBIN A1C LEVEL > 9.0%. G8420 BMI<30 AND >=22 CALC & DOCU. 1036F TOBACCO NON-USER. 3017F COLORECTAL CA SCREEN DOC REV. * Electronic signature of Shauna Almanzar MD on 10/15/2025 at 12:42 AM EST Sign off status: Pending * Provider: Shauna Almanzar M.D. Date: 0 04/02/2025 Generated for Marissa mendoza/Rei/eTransmitting on: 1 12/16/2024 12:42 AM EST History and Physical Notes * [...]
--- OUTSIDE RECORDS SUMMARY | 2025-04-30 09:00 | XMS_ITS ---
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 Garcia Referral Priority Routine REASON FOR VISIT 4 weeks, Needs colon cancer screening, & diabetic eye exam Medications Medication SIG (Take, Route, Frequency, Duration) Notes Start Date End Date Status Jardiance 10 mg 1 tablet Orally ever y other day; Duration: 90 days Active Mirtazapine 15 mg TAKE ONE TABLET BY MOUTH EVERY DAY AT BEDTIME; Duration: 30 Active Levothyroxine Sodium 50 mcg TAKE ONE TABLET BY MOUTH EVERY MORNING ON AN EMPTY STOMACH; Duration: 90 Active Itraconazole 100 MG 1 capsule after a me al Orally Once a day; Duration: 10 day(s) Not-Taking Lantus SoloStar 100 UNIT/ML 5 units Subcutaneous once daily; Duration: 30 days 04/02/2025 Active Ursodiol 500 MG 1 tablet Orally twic e a day Active Cholecalciferol 25 MCG (1000 UT) 1 capsule Orally Once a day; Duration: 30 day(s) Active metFORMIN HCl 500 MG 1 tablet with a igor l Orally Twice a day Active Budesonide 3 MG 1 Orally at bedtime Active Mycophenolate Mofetil 500 MG 1 tablet Orally Twice a day; Duration: 30 day(s) Active Itraconazole 100 MG 2 capsule after a me al Orally twice a day Active Ipratropium-Albuterol 0.5-2.5 (3) MG/3ML 3 mL as needed Inhalation every 6 hrs Active HumaLOG Mix 75/25 (75-25) 100 UNIT/ML 36 units subcutaneously three times a day ac Active Warfarin Sodium 6 MG 1 tablet Orally Onc e a day; Duration: 30 day(s) Active Problems Problem Type SNOMED Code ICD Code Onset Dates Problem Status W/U Status Risk Notes Problem Cardiac arrhythmia (930110005) Cardiac arrhythmia, unspecified cardiac arrhythmia type (I49.9) Active confirmed Problem Chronic vascular insufficiency of intestine (342370175) 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 Vital Signs Weight 133.8 lbs 04/30/2025 Blood pressure systolic 130 mm Hg 04/30/20 25 Blood pressure diastolic 62 mm Hg 025 Heart Rate 85 /min 04/30/2025 Height 65 in 04/30/2025 BMI 22.26 kg/m2 04/30/2025 Encounters Encounter Location Date Provider Diagnosis [facility] [address] [id number] 04/30/2025 Shauna Almanzar Type 2 diabetes aquilino itus with hyperglycemia E11.65 ; FPC (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.4 ; 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 ; Interstitial lung disease J84.9 ; Essential (primary) hypertension I10 ; Abnormal CT scan, chest R93.89 ; Calculus of gallbladder without cholecystitis without obstruction K80.20 ; Hereditary hemochromatosis E83.110 ; Paroxysmal atrial fibrillation I48.0 ; Cardiac arrhythmia, unspecified cardiac arrhythmia type I49.9 ; Superior mesenteric artery stenosis K55.1 ; BMI 22.0-22.9, adult Z68.22 and Cochlear implant status Z96.21 Assessments Encounter Date Diagnosis (ICD Code) Assessment Notes Treatment Notes Treatment Clinical Notes Section Notes 04/30/2025 Type 2 diabetes mellitus with hyperglycemia (ICD-10 - E11.65) 04/30/2025 FPC (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 (ICD-10 - Z79.4) 04/30/2025 Adrenal abnormality (ICD-10 - E27.9) 04/30/2025 Interstitial lung disease (ICD-10 - J84.9) 04/30/2025 Essential (primary) hypertension (ICD-10 - I10) 04/30/[address] scan, chest (ICD-10 - R93.89) 04/30/2025 Calculus of gallbladder without cholecystitis without obstruction (ICD-10 - K80.20) 04/30/2025 Hereditary hemochromatosis (ICD-10 - E83.110) 04/30/2025 Paroxysmal atrial fibrillation (ICD-10 - I48.0) 04/30/2025 Cardiac arrhythmia, unspecified cardiac arrhythmia type (ICD-10 - I49.9) 04/30/2025 Superior mesenteric artery stenosis (ICD-10 - K55.1) 04/30/2025 BMI 22.0-22.9, adult (ICD-10 - Z68.22) 04/30/2025 Cochlear implant status (ICD-10 - Z96.21) Plan Of Treatment Referrals Referral Date Details 04/30/2025 04/30/2025, Dr Lilian Mcmahon Next Appt Details Follow Up: 2 Months, Reason: Provider Name:Shauna Merida er, 11/12/2025 01:30:00 PM, 1210 [facility] 36 [facility], [address] , [place], [place], [phone], Progress Notes * Jose Luis GOLDENOB: [birth year] (75 yo M)Acc No.[id number]:04/30/2025 Progress Notes Patient: Daniele CEDRICKRAJIVJose Luis Provider: Shauna Almanzar M.D. :1950 A ge:75 Y S ex:Male Date:04/30/2025 Address:[address] [facility] [address] , [facility] Subjective: * Chief Complaints: * 1 . 4 weeks. 2. Needs colon cancer screening, & diabetic eye exam. * HPI: E ndocrinology: The patient is here for a follow up on diabetes and fatigue. Pt states he is doing a little better. still feeling a bit fatigued today. G astroenterology: Recent CT revealed 80% SMA stenosis. Adrenal gland lesions stable. * ROS: D ERMATOLOGY: no R gurmeet. [...] yearly eye exams, [facility], Questionable Dx Lupus erythematosus 2015, Granuloma [...] other day , Taking Levothyroxine Sodium 50 mcg Tablet TAKE ONE TABLET BY MOUTH EVERY MORNING ON AN EMPTY STOMACH , Taking Mirtazapine 15 mg Tablet TAKE ONE TABLET BY MOUTH EVERY DAY AT BEDTIME , Taking Lantus SoloStar 100 UNIT/ML Solution Pen-injector 5 units Subcutaneous once daily , Not-Taking Itraconazole 100 MG Capsule 1 capsule after a meal Orally Once a day , Medication List reviewed and reconciled with the patient * Allergies: C ephalexin. Objective: * Vitals: W t: 133.8, Temp: 98.4, BP: 130/62, HR: 85, O2 Sat: 98% on RA, Nurse: JAY, Ht: 65, BMI:22.26. * Examination: G eneral Examination: General Appearance: N AD, note weight gain. . H EENT: u nremarkable, facial swelling present. O ral cavity: n o lesions, mucosa moist and WNL, no erythema. N whitney: s upple, no lymphadenopathy. C hest: n ormal shape and expansion. H eart: R SR with frequent ectopy, concern for A-fib.. L ungs: d ecreased breath sounds. A bdomen: soft and nontender, no organomegaly or masses. N eurologic Exam: I ntact, gait normal. S kin: n ormal, no rash. P eripheral pulses: n ormal. Back: mild dorsal kyphosis. E xtremities: n o leg edema. Assessment: * Assessment: 1. T ype 2 diabetes mellitus with hyperglycemia - E11.65 (Primary) 2 . L tonia term (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 - Z79.4 3 . A drenal abnormality - E27.9 ? 4 . I nterstitial lung disease - J84.9 5 . E ssential (primary) hypertension - I10 [address] scan, chest - R93.89 7 . C alculus of gallbladder without cholecystitis without obstruction - K80.20 8 . H ereditary hemochromatosis - E83.110 9 . P aroxysmal atrial fibrillation - I48.0 10. C ardiac arrhythmia, unspecified cardiac arrhythmia type - I49.9 1 1. S uperior mesenteric artery stenosis - K55.1 1 2. B WI 22.0-22.9, adult - Z68.22 1 3. C ochlear implant status - Z96.21 Plan: * Treatment: * Procedure Codes: G 2211 Complex e/m visit add on, 1036F TOBACCO NON-USER, G8420 BMI<30 AND >=22 CALC & DOCU, G8950 PREHTN/HTN BP DOC INDCD F/U DOC, G8752 MOST RECENT SYSTOLIC BP < 140MM HG, G8754 MOST RECENT DIASTOLIC BP < 90MM HG * Follow Up: 2 Months * Images: Billing Information: * Visit Code: 38527 Office Visit, Est Pt., Level 4. * Procedure Codes: G2211 Complex e/m visit add on. 1036F TOBACCO NON-USER. G8420 BMI<30 AND >=22 CALC & DOCU. G8950 PREHTN/HTN BP DOC INDCD F/U DOC. G8752 MOST RECENT SYSTOLIC BP < 140MM HG. G8754 MOST RECENT DIASTOLIC BP < 90MM HG. * Electronic signature of Shauna Almanzar MD on 10/15/2025 at 12:41 AM EST Sign off status: Pending * Provider: Shauna Almanzar M.D. Date: 0 04/30/2025 Generated for Marissa mendoza/Rei/eTransmitting on: 1 12/16/2024 12:41 AM EST History and Physical Notes * HPI (History of Present Illness) Category Sub-Category Detail Notes Category Not es Gastroenterology Recent CT r evealed 80% SMA stenosis. Adrenal gland lesions stable. Examination Category Sub-Category Detail Notes Category Not es General Examination HEENT: unremarkable, facial swelling present Heart: RSR with frequent ec topy, concern for A-fib. Lungs: decreased breath margaret nds Abdomen: soft and nontender, no organomegaly or masses Extremities: no leg edema General Appearance: NAD, note weight gai n. Skin: normal, no rash Neurologic Exam: Intact, gait normal Neck: supple, no lymphaden opathy Oral cavity: no lesions, mucosa m oist and WNL, no erythema Peripheral pulses: normal Back: mild dorsal kyphosis Chest: normal shape and exp ansion Consultation Request Notes Referral Date Referring Provider Referred Provider Not es 04/30/2025 Shauna Almanzar , SMA oliver is, Dr Quintana
--- OUTSIDE RECORDS SUMMARY | 2025-06-09 05:00 | XMS_ITS ---
Author Organization [facility] Address [address] [facility] 36 [facility] [address] [place] [phone] Care Team Providers Care Automotive Parts Advisor Name Role Phone Shauna Almanzar Primary Care Provider Emir Berger Unavailable [phone] Allergies Allergen (clinical drug ingredient) Drug/Non Drug Allergy documented on EMR Reaction Allergy Type Onset Date Status cephalexin Cephalexin Unknown Drug Allergy Activ e Results Component Value Reference Range Notes CBC Venipuncture (in house) Reviewed date:06/10/2025 08:30:05 AM Interpretation:WBC 3.0, PLT 538 Performing Lab: Notes/Report: WBC 3.0, PLT 538 wbc 3.0 3.5 - 10 lymph 29.1% 15 - 50 mid 6.7% 2 - 15 gran 64.2% 35 - 80 rbc 4.26 3.5 - 5.5 hgb 11.5 11.5 - 16.5 hct 34.5 35 - 55 mcv 80.9 75 - 100 mch 27.0 25 - 35 mchc 33.4 31 - 38 platlet 538 100 - 400 P-Comprehensive Metabolic Pa tarah (CMP) Reviewed date:06/10/2025 08:30:05 AM Interpretation:K 3.0, Glu 245, Creat 1.52, eGFR 48, Pro 5.8, Alb 3.2, Alk Phos 232 Performing Lab: Notes/Report: Test performed by [facility] [address] [place] [address] , [address], [place] [address] Kristian Trevino MD, Advance Se[employer] Delivery System Maintainer CLIA: [id number] Sodium 141 135-145 mmol/L Potassium 3.0 3.5-5.3 mmol/L Chloride 102 97-108 mmol/L CO2 25 20-32 mmol/L Glucose 245 65-99 mg/dL BUN 14 8-23 mg/dL Creatinine 1.52 0.70-1.30 mg/dL Calcium 8.8 8.6-10.4 mg/dL eGFR by Creatinine 48 >59 mL/min/1.73m2 Protein 5.8 6.0-8.3 g/dL Albumin 3.2 3.5-5.3 g/dL Alkaline Phosphatase 232 40-129 IU/L ALT (SGPT) 22 <5-55 IU/L AST (SGOT) 32 <5-46 IU/L Bilirubin, Total 0.5 <0.2-1.2 mg/dL A/G Ratio 1.2 1.1-2.5 P-CPK Reviewed date:06/10/2025 08:30:05 AM Interpretation:23 Performing Lab: Notes/Report: Test performed by [facility] [address] [facility], [place] [address] Kristian Trevino MD, Advance [employer] Delivery System Maintainer CLIA: [id number] Creatine Kinase 23 20-200 U/L X-J-Auqezwiq Protein (CRP) Reviewed date:06/10/2025 08:30:05 AM Interpretation:4.00 Performing Lab: Notes/Report: Test performed by [facility] [address] [place] , [place] [address] Kristian Trevino MD, Advance [employer] Delivery System Maintainer CLIA: [id number] C-Reactive Protein (CRP) 4.00 <0.50 mg/dL P-Sed Rate (ESR) Reviewed date:06/10/2025 08:30:05 AM Interpretation:31 Performing Lab: Notes/Report: Test performed by [facility] [address] [facility], [place] [id number] Kristian Trevino MD, Advance [employer] Delivery System Maintainer CLIA: [id number] Erythrocyte Sedimentation Ra te (ESR), Automated 31 <21 mm/hr P-TSH reflex to FT4 Reviewed date:06/10/2025 08:30:05 AM Interpretation:Normal Performing Lab: Notes/Report: Test performed by [facility] [address] [place] [address] , [address], [place] [address] Kristian Trevino MD, Advance [employer] Delivery System Maintainer CLIA: [id number] TSH reflex to FT4 3.44 0.43-5.25 mU/L P-Vitamin D 25-Hydroxy Reviewed date:06/10/2025 08:30:05 AM Interpretation:Normal Performing Lab: Notes/Report: Test performed by [facility] [address] [place] [address] , [address], [place] [address] Kristian Trevino MD, Advance [employer] Delivery System Maintainer CLIA: [id number] Vitamin D 25-Hydroxy 57.8 30.0-100.0 ng/mL Interpretation of Vitamin D 25 [place]: < 20 ng/mL - Deficiency 20 - 29 ng/mL - Insufficiency 30 - 100 ng/mL - Sufficiency > 100 ng/mL - Super-therapeutic- toxicity may occur above this level. Clinical correlation required. REASON FOR VISIT lack of energy Medications Medication SIG (Take, Route, Frequency, Duration) Notes Start Date End Date Status Mirtazapine 15 mg TAKE ONE TABLET BY MOUTH EVERY DAY AT BEDTIME; Duration: 30 Active Jardiance 10 mg 1 tablet Orally ever y other day; Duration: 90 days Active FreeStyle Leroy 3 [place] - as directed 05/12/2025 Not-Taking Levothyroxine Sodium 50 mcg 1 tablet by mouth daily; Duration: 90 days Active Budesonide 3 MG [...] Itraconazole 100 MG 2 capsule after a meal Orally twice a day Active Warfarin Sodium 6 MG 1 tablet Orally Onc e a day; Duration: 30 day(s) Active Ipratropium-Albuterol 0.5-2.5 (3) MG/3ML 3 mL as needed Inhalation every 6 hrs Active FreeStyle Leroy 3 Plus Sensor - replace sensor every 14 days; Duration: 28 days 05/12/2025 Not-Taking Problems Problem Type SNOMED Code ICD Code Onset Dates Problem Status W/U Status Risk Notes Problem Anorexia (08075789) Anorexia (R63.0) Active confirmed Vital Signs Weight 130 lbs 06/09/2025 Blood pressure systolic 112 mm Hg 06/09/20 25 Blood pressure diastolic 68 mm Hg 025 Heart Rate 64 /min 06/09/2025 Height 65 in 06/09/2025 BMI 21.63 kg/m2 06/09/2025 Encounters Encounter Location Date Provider Diagnosis [facility] [address] [place] [address] 36 [facility] [address] [place] [id number] 06/09/2025 Emir Berger Generalized weakness R53.1 ; Anorexia R63.0 and Vitamin D deficiency E55.9 Assessments Encounter Date Diagnosis (ICD Code) Assessment Notes Treatment Notes Treatment Clinical Notes Section Notes 06/09/2025 Generalized weakness (ICD-10 - R53.1) 06/09/2025 Anorexia (ICD-10 - R63.0) Boost or Ensure 1 can bid 06/09/2025 Vitamin D deficiency (ICD-10 - E55.9) Plan Of Treatment Treatment Notes Assessment Notes Anorexia Boost or Ensure 1 ca n bid Next Appt Details Follow Up: via phone to repo rt test results, Reason: Provider Name:Shauna Merida er, 11/12/2025 01:30:00 PM, [address] [facility] 36 [facility], [address], [place], [id number], Progress Notes * Jose Luis GOLDENOB: [birth year] (75 yo M)Acc No.[id number]:06/09/2025 Progress Notes Patient: Jose Luis BUCIOn Provider: Jaden Berger M.D. :1950 A ge:75 Y S ex:Male Date:06/09/2025 Address:[address] [place] [address], [id number] Pcp:Shauna Almanzar Subjective: * Chief Complaints: * 1 . Lack of energy. * HPI: E ndocrinology: 75 year old male presents with c/o Fatigue P t complains of worsening fatigue and weakness. Pt states he does not have any energy to do anything. Pt states his appetite has decrease and this has been going on since March. Pt states he feels unsteady on his feet and he just sleeps all the time. * ROS: D ERMATOLOGY: no R gurmeet. [...] 06/2014, user name and password for portal: [email or web address], type 2 diabetes, followed at [facility], 06/05/2019 [place]: healing of R [...] meal Orally twice a day , Taking Ipratropium-Albuterol 0.5-2.5 (3) MG/3ML Solution [...] MOUTH EVERY DAY AT BEDTIME , Taking Levothyroxine Sodium 50 mcg Tablet 1 tablet by mouth daily , Not-Taking FreeStyle Leroy 3 [place] - Device as directed , Not-Taking FreeStyle Leroy 3 Plus Sensor - Miscellaneous replace sensor every 14 days , Discontinued HumaLOG Mix 75/25 (75-25) 100 UNIT/ML Suspension 36 units subcutaneously three times a day ac , Discontinued Lantus SoloStar 100 UNIT/ML Solution Pen-injector 5 units Subcutaneous once daily , Discontinued Itraconazole 100 MG Capsule 1 capsule after a meal Orally Once a day , Medication List reviewed and reconciled with the patient * Allergies: C ephalexin. Objective: * Vitals: W t: 130, Temp: 98.1, BP: 112/68, HR: 64, O2 Sat: 98% on RA, Nurse: nasra, Ht: 65, BMI:21.63. * Examination: G eneral Examination: General Appearance: N AD, sitting in a wheel chair. H eart: R SR. L ungs: c lear to auscultation. P eripheral pulses: n ormal (2+) bilaterally. E xtremities: n o leg edema. Assessment: * Assessment: 1. G eneralized weakness - R53.1 (Primary) 2 . A norexia - R63.0 3 . V itamin D deficiency - E55.9 Plan: * Treatment: Value Reference Range A /G Ratio 1.2 1.1-2.5 - * A lbumin 3.2 L 3.5-5.3 - g/dL * A lkaline Phosphatase 232 H 40-129 - IU/L * A LT (SGPT) 22 <5-55 - IU/L * A ST (SGOT) 32 <5-46 - IU/L * B ilirubin, Total 0.5 <0.2-1.2 - mg/dL * B UN 14 8-23 - mg/dL * C alcium 8.8 8.6-10.4 - mg/dL * C hloride 102 97-108 - mmol/L * C O2 25 20-32 - mmol/L * C reatinine 1.52 H 0.70-1.30 - mg/dL * G lucose 245 H 65-99 - mg/dL * P otassium 3.0 L 3.5-5.3 - mmol/L * S odium 141 135-145 - mmol/L * P rotein 5.8 L 6.0-8.3 - g/dL * e GFR by Creatinine 48 L >59 - mL/min/1.73m2 * Nemo Rooney 06/10/2025 08:2 9:56 AM EDT > See phone encounter ?LAB: P-CPK (Collection Date & Time - 06/09/2025 09:55 AM)?23* Value Reference Range C reatine Kinase 23 20-200 - U/L * Nemo Rooney 06/10/2025 08:2 9:56 AM EDT > See phone encounter ?LAB: W-U-Qbpakqml Protein (CRP) (Collection Date & Time - 06/09/2025 09:55 AM)?4.00* Value Reference Range C -Reactive Protein (CRP) 4.00 H <0.50 - mg/dL * Nemo Rooney 06/10/2025 08:2 9:56 AM EDT > See phone encounter ?LAB: P-Sed Rate (ESR) (Collection Date & Time - 06/09/2025 09:55 AM)?31* Value Reference Range E rythrocyte Sedimentation Rate (ESR), Automated 31 H <21 - mm/hr * Nemo Rooney 06/10/2025 08:2 9:56 AM EDT > See phone encounter ?LAB: P-TSH reflex to FT4 (Collection Date & Time - 06/09/2025 09:55 AM)? Normal* Value Reference Range T SH reflex to FT4 3.44 0.43-5.25 - mU/L * NevinNemo 06/10/2025 08:2 9:56 AM EDT > See phone encounter ?LAB: CBC Venipuncture (in house) (Collection Date & Time - 06/09/2025)?WBC 3.0, PLT 538* Value Reference Range w bc 3.0 3.5 - 10 * l ymph 29.1% 15 - 50 * m id 6.7% 2 - 15 * g ran 64.2% 35 - 80 * r bc 4.26 3.5 - 5.5 * h gb 11.5 11.5 - 16.5 * h ct 34.5 35 - 55 * m cv 80.9 75 - 100 * m ch 27.0 25 - 35 * m chc 33.4 31 - 38 * p latlet 538 100 - 400 * Janneth Bui 06/09/2025 11:56:3 0 AM EDT > NevinNemo boothe 06/10/2025 08:29:56 AM EDT > See phone encounter 2.?Anorexia? Notes: Boost or Ensure 1 can bid??3.?Vitamin D deficiency?LAB: P-Vitamin D 25-Hydroxy (Collection Date & Time - 06/09/2025 09:55 AM)? Normal* Value Reference Range V itamin D 25-Hydroxy 57.8 30.0-100.0 - ng/mL * Nemo Rooney 06/10/2025 08:2 9:56 AM EDT > See phone encounter * Procedure Codes: G 2211 Complex e/[place], [address] CBC WITH AUTO DIFF, 1036F TOBACCO NON-USER, G8783 BP SCR PRFRM RCMDD DEFIND SCR INTVL, G8752 MOST RECENT SYSTOLIC BP < 140MM HG, G8754 MOST RECENT DIASTOLIC BP < 90MM HG * Follow Up: v ia phone to report test results * Images: Billing Information: * Visit Code: 59539 Office Visit, Est Pt., Level 4. * Procedure Codes: G2211 Complex e/[place]. [address] CBC WITH AUTO DIFF. 1036F TOBACCO NON-USER. G8783 BP SCR PRFRM RCMDD DEFIND SCR INTVL. G8752 MOST RECENT SYSTOLIC BP < 140MM HG. G8754 MOST RECENT DIASTOLIC BP < 90MM HG. * Electronic signature of Elidia Berger MD on 10/15/2025 at 12:42 AM EST Sign off status: Pending * Provider: Jaden Berger M.D. Date: 0 06/09/2025 Generated for Marissa mendoza/Rei/Khurramitting on: 1 12/16/2024 12:42 AM EST History and Physical Notes * HPI (History of Present Illness) Category Sub-Category Detail Notes Category Not es Endocrinology Fatigue Pt complains of worsening fatigue and weakness. Pt states he does not have any energy to do anything. Pt states his appetite has decrease and this has been going on since March. Pt states he feels unsteady on his feet and he just sleeps all the time Examination Category Sub-Category Detail Notes Category Not es General Examination Heart: RSR Lungs: clear to auscultatio n Extremities: no leg edema General Appearance: NAD, sitting in a wh eel chair Peripheral pulses: normal (2+) bilatera lly
--- OUTSIDE RECORDS SUMMARY | 2025-07-03 06:45 | XMS_ITS ---
Author Organization [facility] Address 1210 [facility] [address] [id number] Care Team Providers Care Snuff Grinder Name Role Phone Shauna Almanzar Primary Care Provider [phone] Allergies Allergen (clinical drug ingredient) Drug/Non Drug Allergy documented on EMR Reaction Allergy Type Onset Date Status cephalexin Cephalexin Unknown Drug Allergy Activ e Results Component Value Reference Range Notes CBC Venipuncture (in house) Reviewed date:07/03/2025 12:46:28 PM Interpretation: Performing Lab: Notes/Report: wbc 2.8 3.5 - 10 lymph 34.8% 15 - 50 mid 9.5% 2 - 15 gran 55.7% 35 - 80 rbc 3.76 3.5 - 5.5 hgb 10.2 11.5 - 16.5 hct 30.6 35 - 55 mcv 81.4 75 - 100 mch 27.1 25 - 35 mchc 33.3 31 - 38 platlet 447 100 - 400 Glycohemoglobin A1c (in hous e) Reviewed date:07/07/2025 10:18:42 AM Interpretation:6.9 Performing Lab: Notes/Report: 6.9 glycohemoglobin 6.9% 5 - 6.5 % P-Basic Metabolic Panel (BMP ) Reviewed date:07/07/2025 10:18:42 AM Interpretation:Glu 175 Performing Lab: Notes/Report: Test performed by [facility] , [address], [place] [address] Kristian Trevino MD, Composition Worker CLIA: [id number] Sodium 140 135-145 mmol/L Potassium 4.1 3.5-5.3 mmol/L Chloride 105 97-108 mmol/L CO2 22 20-32 mmol/L Glucose 175 65-99 mg/dL BUN 12 8-23 mg/dL Creatinine 1.26 0.70-1.30 mg/dL Calcium 9.4 8.6-10.4 mg/dL eGFR by Creatinine 60 >59 mL/min/1.73m2 P-Cortisol, Random Reviewed date:07/07/2025 10:18:42 AM Interpretation: Normal Performing Lab: Notes/Report: Test performed by [facility] [address] [place] [address] , [address], [place] [address] Kristian Trevino MD, Composition Worker CLIA: [id number] Cortisol, Random 7.7 CORTISOL REFERENCE RANGE AM Serum: 6.0-18.4 ug/dL PM Serum: 2.7-10.5 ug/dL P-Iron Reviewed date:07/07/2025 10:18:42 AM Interpretation:28 Performing Lab: Notes/Report: Test performed by [facility] [address] [place] [address] , [address], [place] [address] Kristian Trevino MD, Composition Worker CLIA: [id number] Iron 28 59-158 ug/dL P-TSH Reviewed date:07/07/2025 10:18:42 AM Interpretation:6.42 Performing Lab: Notes/Report: Test performed by [facility] [address] [place] [address] , [address], [place] [address] Kristian Trevino MD, Composition Worker CLIA: [id number] TSH 6.42 0.43-5.25 mU/L REASON FOR VISIT 2 months, Needs colon cancer screening & diabetic eye exam Medications Medication SIG (Take, Route, Frequency, Duration) Notes Start Date End Date Status Ursodiol 500 MG 1 tablet Orally twic e a day Active metFORMIN HCl 500 MG 1 tablet with a igor l Orally Twice a day Active Mycophenolate Mofetil 500 MG 1 tablet Orally Twice a day; Duration: 30 day(s) Active Cholecalciferol 25 MCG (1000 UT) 1 capsule Orally Once a day; Duration: 30 day(s) Active Budesonide 3 MG 1 Orally at bedtime Not-Taking Warfarin Sodium 6 MG 1 tablet Orally Onc e a day; Duration: 30 day(s) Active Voriconazole 200 MG 1 tablet 1 hour before or 1 hour after meals Orally every 12 hrs Active Ipratropium-Albuterol 0.5-2.5 (3) MG/3ML 3 mL as needed Inhalation every 6 hrs Active Potassium Chloride ER 20 MEQ 1 tablet with food Orally Once a day; Duration: 30 days 06/10/2025 Active FreeStyle Leroy 3 Plus Sensor - replace sensor every 14 days; Duration: 28 days 05/12/2025 Not-Taking Jardiance 10 mg 1 tablet Orally ever y other day; Duration: 90 days Active FreeStyle Leroy 3 [place] - as directed 05/12/2025 Not-Taking Mirtazapine 15 mg TAKE ONE TABLET BY MOUTH EVERY DAY AT BEDTIME; Duration: 30 Active Levothyroxine Sodium 50 mcg 1 tablet by mouth daily; Duration: 90 days Active Vital Signs Weight 128.0 lbs 07/03/2025 Blood pressure systolic 124 mm Hg 07/03/20 25 Blood pressure diastolic 70 mm Hg 025 Heart Rate 101 /min 07/03/2025 Height 65 in 07/03/2025 BMI 21.3 kg/m2 07/03/2025 Encounters Encounter Location Date Provider [facility] [address] [id number] 07/03/2025 Shauna Almanzar Hypokalemia E87.6 ; Essential hypertension I10 ; Chronic fatigue R53.82 ; Protein malnutrition E46 ; Type 2 diabetes mellitus with hyperglycemia E11.65 ; 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 ; 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 ; 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 and BMI 21.0-21.9, adult Z68.21 Assessments Encounter Date Diagnosis (ICD Code) Assessment Notes Treatment Notes Treatment Clinical Notes Section Notes 07/03/2025 Hypokalemia (ICD-10 - E87.6) 07/03/2025 Essential hypertension (ICD-10 - I10) 07/03/2025 Chronic fatigue (ICD-10 - R53.82) 07/03/2025 Protein malnutrition (ICD-10 - E46) 07/03/2025 Type 2 diabetes mellitus with hyperglycemia (ICD-10 - E11.65) 07/03/2025 nursing home (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 (ICD-10 - Z79.4) 07/03/2025 Histoplasmosis (ICD-10 - B39.9) 07/03/2025 Adrenal abnormality (ICD-10 - E27.9) 07/03/2025 BMI 21.0-21.9, adult (ICD-10 - Z68.21) Plan Of Treatment Medication Medication Name Sig Start Date Stop Date Notes Potassium Chloride ER 20 MEQ 1 tablet wi th food Orally Once a day; Duration: 30 days 06/10/2025 Next Appt Details Follow Up: 4 Weeks, Reason: Provider Name:Shauna Merida er, 11/12/2025 01:30:00 PM, [address] [facility] 36 [facility], [address], [place], [place], [id number], Progress Notes * CHICOJose Luis STRONG GerdaOB: [birth year] (75 yo M)Acc No.[id number]:07/03/2025 Progress Notes Patient: Jose Luis BUCIO Provider: Shauna Almanzar M.D. :1950 A ge:75 Y S ex:Male Date:07/03/2025 Address:[address] [place] [address] 32 , [facility] Subjective: * Chief Complaints: * 1 . 2 months. 2. Needs colon cancer screening & diabetic eye exam. * HPI: C ardiology: The pt is here today for a check up on Hypertension, Diabetes, and Anemia. Pt states he still having a lot pf fatigue. Wiped out. Pt is not fasting. Doesn't feel as well off the steroids. Off since April. HYPOKALEMIA AT LAST VISIT. STAYED ON 20MEQ DAILY. 75 year old male presents with c/o Fatigue n o energy. Denies : Chest Pain. D enies : Short of Breath. D enies : Dizziness. D enies : Palpitations. * ROS: D ERMATOLOGY: no R gurmeet. [...] fasting glucose, Gets yearly eye exams, [facility], Questionable Dx Lupus erythematosus 2015, [...] ,Years: , Determination:. * Medications: T aking Voriconazole 200 MG Tablet 1 tablet 1 hour before or 1 hour after meals Orally every 12 hrs , Taking Ipratropium-Albuterol 0.5-2.5 (3) MG/3ML Solution [...] capsule Orally Once a day , Taking Jardiance 10 mg Tablet 1 tablet Orally every other day , Taking Mirtazapine 15 mg Tablet TAKE ONE TABLET BY MOUTH EVERY DAY AT BEDTIME , Taking Levothyroxine Sodium 50 mcg Tablet 1 tablet by mouth daily , Taking Potassium Chloride ER 20 MEQ Tablet Extended Release 1 tablet with food Orally Once a day , Not-Taking Budesonide 3 MG Capsule Delayed Release Particles 1 Orally at bedtime , Not-Taking FreeStyle Leroy 3 [place] - Device as directed , Not-Taking FreeStyle Leroy 3 Plus Sensor - Miscellaneous replace sensor every 14 days , Discontinued Itraconazole 100 MG Capsule 2 capsule after a meal Orally twice a day , Medication List reviewed and reconciled with the patient * Allergies: C ephalexin. Objective: * Vitals: W t: 128.0, Temp: 98.2, BP: 124/70, HR: 101, O2 Sat: 96% on RA, Nurse: JAY, Ht: 65, BMI:21.3. * Examination: G eneral Examination: General Appearance: N AD, note weight gain. . H EENT: u nremarkable, facial swelling is less. O ral cavity: n o lesions, mucosa moist and WNL, no erythema. N whitney: s upple, no lymphadenopathy. C hest: n ormal shape and expansion. H eart: s eems RSR . L ungs: d ecreased breath sounds. A bdomen:? soft and nontender, no organomegaly or masses. N eurologic Exam: I ntact, gait normal.?Skin: n ormal, no rash. P eripheral pulses: n ormal. B ack: mild dorsal kyphosis. E xtremities: n o leg edema. Assessment: * Assessment: 1. H ypokalemia - E87.6 (Primary) 2 . E ssential hypertension - I10 ? 3 . C hronic fatigue - R53.82 4 . P rotein malnutrition - E46 ? 5 . T ype 2 diabetes mellitus with hyperglycemia - E11.65 6 . L tonia term (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 - Z79.4 7 . H istoplasmosis - B39.9 ?8. A drenal abnormality - E27.[address] 21.0-21.9, adult - Z68.21? Plan: * Treatment: Value Reference Range B UN 12 8-23 - mg/dL * C alcium 9.4 8.6-10.4 - mg/dL * C hloride 105 97-108 - mmol/L * C O2 22 20-32 - mmol/L * C reatinine 1.26 0.70-1.30 - mg/dL * G lucose 175 H 65-99 - mg/dL * P otassium 4.1 3.5-5.3 - mmol/L * S odium 140 135-145 - mmol/L * e GFR by Creatinine 60 >59 - mL/min/1.73m2 * Nemo Rooney 07/07/2025 10:1 8:31 AM EDT > See phone encounter ?LAB: P-TSH (Collection Date & Time - 07/03/2025 01:00 PM)?6.42* Value Reference Range T SH 6.42 H 0.43-5.25 - mU/L * Nemo Rooney 07/07/2025 10:1 8:31 AM EDT > See phone encounter 2.?Chronic fatigue?LAB: P-Iron (Collection Date & Time - 07/03/2025 01:00 PM)?28* Value Reference Range I doris 28 L 59-158 - ug/dL * Nemo Rooney 07/07/2025 10:1 8:31 AM EDT > See phone encounter ?LAB: CBC Venipuncture (in house) (Collection Date & Time - 07/03/2025)* Value Reference Range w bc 2.8 3.5 - 10 * l ymph 34.8% 15 - 50 * m id 9.5% 2 - 15 * g ran 55.7% 35 - 80 * r bc 3.76 3.5 - 5.5 * h gb 10.2 11.5 - 16.5 * h ct 30.6 35 - 55 * m cv 81.4 75 - 100 * m ch 27.1 25 - 35 * m chc 33.3 31 - 38 * p jacquelyn 447 100 - 400 * Fatimah Sotelo Ana Cristina 07/03/2025 12 :10:58 PM EDT > Provider reviewed results while patient in office. 3.?Type 2 diabetes mellitus with hyperglycemia?LAB: Glycohemoglobin A1c (in house) (Collection Date & Time - 07/03/2025)? 6.9* Value Reference Range g lycohemoglobin 6.9% 5 - 6.5 % * Nemo Rooney 07/07/2025 10:1 8:31 AM EDT > See phone encounter 4.?Adrenal abnormality?LAB: P-Cortisol, Random (Collection Date & Time - 07/03/2025 01:00 PM)? Normal* Value Reference Range C ortisol, Random 7.7 - ug/dL * Nemo Rooney 07/07/2025 10:1 8:31 AM EDT > See phone encounter * Procedure Codes: G 2211 Complex e/[place], [address] CBC WITH AUTO DIFF, 65695 GLYCATED HEMOGLOBIN TEST, Modifiers: QW , 68186 CAPILLARY BLOOD DRAW, 1036F TOBACCO NON-USER, G8950 PREHTN/HTN BP DOC INDCD F/U DOC, G8752 MOST RECENT SYSTOLIC BP < 140MM HG, G8754 MOST RECENT DIASTOLIC BP < 90MM HG, 3044F HG A1C LEVEL LT 7.0% * Follow Up: 4 Weeks * Images: Billing Information: * Visit Code: 92918 Office Visit, Est Pt., Level 4. * Procedure Codes: G2211 Complex e/[place]. [address] CBC WITH AUTO DIFF. 26048 GLYCATED HEMOGLOBIN TEST. Modifiers: QW 35183 CAPILLARY BLOOD DRAW. 1036F TOBACCO NON-USER. G8950 PREHTN/HTN BP DOC INDCD F/U DOC. G8752 MOST RECENT SYSTOLIC BP < 140MM HG. G8754 MOST RECENT DIASTOLIC BP < 90MM HG. 3044F HG A1C LEVEL LT 7.0%. * Electronic signature of Shauna Almanzar MD on 10/15/2025 at 12:44 AM EST Sign off status: Pending * Provider: Shauna Almanzar M.D. Date: 0 07/03/2025 Generated for Marissa mendoza/Rei/Fernyransmitting on: 1 12/16/2024 12:44 AM EST History and Physical Notes * HPI (History of Present Illness) Category Sub-Category Detail Notes Category Not es Cardiology Short of Breath Chest Pain Palpitations Dizziness Fatigue no energy Examination Category Sub-Category Detail Notes Category Not es General Examination HEENT: unremarkable, facial swelling is less Heart: seems RSR Lungs: decreased breath margaret nds Abdomen: [...]
--- OUTSIDE RECORDS SUMMARY | 2025-08-07 06:00 | XMS_ITS ---
[facility] [facility] [address] [id number] Care Team Providers Care Real Estate Development Manager Name Role Phone Shauna Almanzar Primary Care Provider Allergies Allergen (clinical drug ingredient) Drug/Non Drug Allergy documented on EMR Reaction Allergy Type Onset Date Status cephalexin Cephalexin Unknown Drug Allergy Activ e Reason For Referral Reason needs physical and p ulmonary rehab Diagnosis 1 Interstitial lung di sease (J84.9) [facility] Referring Provider First Name Shauna Beatty Referring Provider Last Name Yohan Referring Provider Speciality Family Pra ctice Referred Provider Specialty Physical The rapist General Notes Genoveva Grigsby 2024 01:08:41 PM > faxed to [facility] PT Referral Priority Routine [...] Orally at bedtime Not-Taking FreeStyle Leroy 3 [place] - as directed 05/12/2025 Not-Taking FreeStyle Leroy [...] older) IM Intramuscular 08/07/2025 Administered Vital Signs Weight 123.6 lbs 08/07/2025 Blood pressure systolic 102 mm Hg 08/07/20 25 Blood pressure diastolic 60 mm Hg 025 Heart Rate 105 /min 08/07/2025 Height 65 in 08/07/2025 BMI 20.57 kg/m2 08/07/2025 Encounters Encounter Location Date Provider Diagnosis [facility] [place] [address] [id number] 08/07/2025 Shauna Almanzar Type 2 diabetes aquilino itus without complication E11.9 ; Acquired hypothyroidism E03.9 ; Hereditary hemochromatosis E83.110 ; Cochlear implant status Z96.21 ; Interstitial lung disease J84.9 ; intermediate card tender (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.4 and 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 Assessments Encounter Date Diagnosis (ICD Code) Assessment Notes Treatment Notes Treatment Clinical Notes Section Notes 08/07/2025 Type 2 diabetes mellitus without complication (ICD-10 - E11.9) 08/07/2025 Acquired hypothyroidism (ICD-10 - E03.9) 08/07/2025 Hereditary hemochromatosis (ICD-10 - E83.110) 08/07/2025 Cochlear implant status (ICD-10 - Z96.21) 08/07/2025 Interstitial lung disease (ICD-10 - J84.9) 08/07/2025 alf (current) use of insulin (ICD-10 - Z79.4) 08/07/2025 Adrenal abnormality (ICD-10 - E27.9) Plan Of Treatment Referrals Referral Date Details 08/07/2025 08/07/2025, needs ph ysical and pulmonary rehab Next Appt Details Follow Up: 3M, Reason: Provider Name:Shauna Merida er, 11/12/2025 01:30:00 PM, [address] [facility] [address], [address], [place], [place], [id number], Progress Notes * Jose Luis GOLDENOB: [birth year] (75 yo M)Acc No.[id number]:08/07/2025 Progress Notes Patient: Jose Luis BUCIO Provider: Shauna Almanzar M.D. :1950 A ge:75 Y S ex:Male Date:08/07/2025 Address:[address] [place] [address], [place] [id number] Subjective: * Chief Complaints: * 1 . 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 * [...] Shauna Almanzar M.D. Date: Generated for Collinsi kelly/Veronicag/eTransmitting on: 12/16/2024 12:43 AM EST History and Physical [...]
--- OUTSIDE RECORDS SUMMARY | 2025-10-09 11:10 | XMS_ITS ---
Author Organization [facility] Address [address] [place] [address] [place] [address] Phone Care Team Providers Care Grill Cook Name Role Phone Sukumar CUEVAS, Rocky Griggs [ ] Conditions or Problems No information available. Medications Medication Instructions Start Date Stop Date Generic Name [facility] Provider ENOXAPARIN SODIUM 60 MG/0.6ML SOSY enoxaparin [id number] Lulú Ciro Medications Administered No information available. Allergies, Adverse Reactions, Alerts No information available. Results Date Name Value Unit Range Flag Description Office Visit: Office Visit: 4 SMOK STATUS Former smoker Tob acco smoking status MEDS REVIEW Done Documenta tion of current medications (procedure) Plan of Care Type Date Detail Appointment 11:30 AM Rocky Patino MD, [facility], [address], [place], [address], Referral CT Abdomen w/o c ontrast Referral CT Chest w/o con trast Referral CT Abdomen w/o c ontrast Referral CT Chest w/o con trast Pending order Continue oral an tibiotics Pending order CMP Pending order CBC with Differe ntial Pending order Voriconazole Lev el Procedures Code Procedure Name Date Entry Date G2211 Complex E&M visit add-on (G2211) Vital Signs Date Name Value Unit Description BMI (Body Mass Index) 22.30 kg/m2 Bod y Mass Index (Ratio) Body Temperature 97.5 [degF] temperat ure E&M BP Diastolic 62 mm[Hg] blood pressu re, diastolic BP Systolic 112 mm[Hg] blood pressur e, systolic Heart Rate 86 /min pulse rate Height 65 [in_us] height E&M Respiratory Rate 16 /min respirat ory rate E&M Weight Measured 134 [lb_av] weight E& M Weight Measured 134 [lb_av] weight E& M Immunizations No information available. Advance Directives No information available.
[2025-10-15] VITALS (76 sets, daily range): BP systolic 64–176; BP diastolic 36–93; PULSE 56–123; RESP 18–42; TEMP 36.3–38.5; O2SAT 91–97; BMI 20.5; BMI 22.1; BMI 22.8
--- NOTE | 2025-10-15 00:40 | CT_ITS ---
PROCEDURE INFORMATION: Exam: CTA Abdomen and Pelvis With Contrast Exam date and time: 10/15/2025 1:29 AM Age: 75 years old Clinical indication: Abdominal pain; Additional info: Upper gi scope today, abd pain, tachy TECHNIQUE: Imaging protocol: Computed tomographic angiography of the abdomen and pelvis with contrast. Exam focused on the arteries. 3D rendering (Not supervised by radiologist): MIP and/or 3D reconstructed images were created by the technologist. Radiation optimization: All CT scans at this facility use at least one of these dose optimization techniques: automated exposure control; mA and/or kV adjustment per patient size (includes targeted exams where dose is matched to clinical indication); or iterative reconstruction. Contrast material: ISOVUE; Contrast volume: 80 ml; Contrast route: INTRAVENOUS (IV); COMPARISON: CT ANGIO ABDOMEN PELVIS 04/27/2025 12:31 PM FINDINGS: Aorta: Moderate calcified and noncalcified plaque throughout the abdominal aorta. 3.2 cm fusiform aneurysm of the infrarenal aorta. There is no aortic dissection. 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 Soft plaque with moderate proximal stenosis of the superior mesenteric artery. Renal arteries: No occlusion or significant stenosis. Right iliac arteries: No occlusion or significant stenosis. Left iliac arteries: No occlusion or significant stenosis. Liver: No mass. Gallbladder and biliary ducts: Multiple calcified gallstones. Pancreas: Unremarkable. No mass. No ductal dilation. Spleen: Unremarkable. No splenomegaly. Adrenal glands: Diffuse enlargement of the bilateral adrenal glands. Kidneys and ureters: 2 mm calculi in the proximal left ureter with moderate hydronephrosis. Multiple small bilateral renal calculi. Stomach and bowel: Diffuse bowel wall thickening and inflammation in the 2nd and 3rd portion of the duodenum. No active gastrointestinal hemorrhage. Appendix: No evidence of appendicitis. Intraperitoneal space: Unremarkable. No free air. No significant fluid collection. Lymph nodes: Unremarkable. No enlarged lymph nodes. Urinary bladder: Unremarkable. No mass. Reproductive: Unremarkable as visualized. Bones/joints: Degenerative changes in the spine. Soft tissues: Unremarkable. IMPRESSION: 1. 3.2 cm fusiform aneurysm of the infrarenal aorta. 2. 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 3. Soft plaque with moderate proximal stenosis of the superior mesenteric artery. 4. Diffuse bowel wall thickening and inflammation in the 2nd and 3rd portion of the duodenum. Suspicious for duodenitis. 5. 2 mm calculi in the proximal left ureter with moderate hydronephrosis. 6. Diffuse enlargement of the bilateral adrenal glands. Suspicious for adrenal hyperplasia. Endocrinology follow-up recommended. 7. No active gastrointestinal hemorrhage.
--- NOTE | 2025-10-15 00:40 | CT_ITS ---
PROCEDURE INFORMATION: Exam: CTA Chest With Contrast Exam date and time: 10/15/2025 1:29 AM Age: 75 years old Clinical indication: Pain; Other: Abd; Additional info: Upper gi scope today, abd pain, tachy TECHNIQUE: Imaging protocol: Computed tomographic angiography of the chest with contrast. Exam focused on the arteries. 3D rendering (Not supervised by radiologist): MIP and/or 3D reconstructed images were created by the technologist. Radiation optimization: All CT scans at this facility use at least one of these dose optimization techniques: automated exposure control; mA and/or kV adjustment per patient size (includes targeted exams where dose is matched to clinical indication); or iterative reconstruction. Contrast material: ISOVUE; Contrast volume: 80 ml; Contrast route: INTRAVENOUS (IV); COMPARISON: CT ANGIO CHEST 04/27/2025 12:31 PM FINDINGS: Limitations: Motion artifact degrades image quality and limits the sensitivity of this examination. Pulmonary arteries: Normal. No pulmonary emboli. Aorta: Motion limits assessment of the ascending aorta. The aorta is otherwise unremarkable. Moderate calcified and noncalcified plaque throughout the aorta. No aortic aneurysm or dissection. Lungs: Unremarkable. No consolidation. No masses. Pleural spaces: Pleural thickening and calcification at the lung bases. Heart: Unremarkable. No cardiomegaly. No pericardial effusion. Coronary arteries: Mild calcification of the coronary arteries. Lymph nodes: Calcified bilateral hilar lymph nodes. Bones/joints: Unremarkable. No acute fracture. Soft tissues: Unremarkable. IMPRESSION: 1. No acute findings. 2. No aortic aneurysm or dissection. 3. Calcified hilar lymph nodes, compatible with prior granulomatous exposure. 4. Pleural thickening and calcification at the lung bases. Likely related to prior granulomatous exposure. Asbestos related pleural disease could have a similar appearance. Correlate clinically.
--- OUTSIDE RECORDS SUMMARY | 2025-10-15 00:42 | XMS_ITS | Encounter Summary ---
Author Organization Healthcare Address [address] [place] [address] Care Team Providers Care Gullet Slitter Name Role Phone Rocky Almanzar MD Primary Care Provider [phone] Reason for Visit * Reason Comments Med Refill Encounter Details Date Type Department Care Team (Late st Contact Info) Description 09/01/2025 [facility] [address] [place] [address] Jason Romero MD [address] [address] Type 2 diabetes mellitus with [...] 9:40 AM EST Office Visit [facility] Endocrinology [address] [place] [address] Melany Rosales, DO [address] [place] [address] 01/05/2026 11:00 AM EST Office Visit [facility] [place] [address], [address] [place] [address] Vivian Macias S, OD [address] [place] [address] documented as of this [...] documented as of this encounter Care Teams Gullet Slitter Relationship Specialty Start Date End Date Rocky Almanzar MD [address] [place] [address] PCP - General 03/18/21 documented as of this encounter
--- OUTSIDE RECORDS SUMMARY | 2025-10-15 00:43 | XMS_ITS | Clinical Summary ---
Author Organization [facility] Address [address] [place] [address] Care Team Providers Care Day Care Attendant Name Role Phone Provider, No Known Primary [...] 08/15/2016 AAA SCREEN ONCE Completed 12/07/2016 Insurance [facility] [employer] PPO Care Teams Day Care Attendant Relationship Specialty Start Date End Date Provider, No Known [facility] [place] [address] PCP - General 01/14/25
--- OUTSIDE RECORDS SUMMARY | 2025-10-15 00:43 | XMS_ITS | Encounter Summary ---
Author Organization [facility] Address [address] [place] [address] Care Team Providers Care Gas Line Servicer Name Role Phone Rocky Almanzar MD Primary Care Provider [phone] Reason for Visit * Reason Comments Med Refill Encounter Details Date Type Department Care Team (Late Contact Info) Description 11/10/2021 [facility]ill [facility] [address] [place] [address] Jason Romero MD [address] [address] Type 2 diabetes mellitus with other specified complication, with long-term current use of insulin ([facility]) Social History Tobacco Use [...] Visit [facility] [address] [place] [address] Melany Rosales DO [address] [place] [address] 01/05/2026 11:00 AM EST Office Visit [facility] [place] [address], [address] [place] [address] Vivian Macias S, OD [address] [facility] [address] [place] [address] documented as of this encounter [...] as of this encounter Care Teams Gas Line Servicer Relationship Specialty Start Date End Date Rocky Almanzar MD [address] [place] [address] PCP - General 03/18/21 documented as of this encounter
--- OUTSIDE RECORDS SUMMARY | 2025-10-15 00:43 | XMS_ITS | Clinical Summary ---
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 Provider ENOXAPARIN SODIUM 60 MG/0.6ML SOSY enoxaparin [id number] Lulú Ciro warfarin warfarin Rocky Pation MD potassium citrate (replacement) 99 mg capsule potassium citrate 39876476701 Chelse a Ciro VORICONAZOLE 200 MG TABS Take 1 tablet by mouth once a day voriconazole 27518220050 Rocky Patino MD MINOCYCLINE HCL 100 MG CAPS 1 capsule by mouth twice a day Take one twice a day for three days then only take 1 once a day minocycline 74211747048 Rocky Patino MD budesonide 3 mg by mouth as needed as directed 06/15 budesarely Mack budesonide 3 mg by mouth as needed as directed 06/15 budesonide [facility] Stanley EZETIMIBE 10 MG TABS 1 tablet by mouth once a day 04/17 ezetimibe [id number] [facility] XARELTO 20 MG TABS 04/17 rivaroxaban 58571201107 [facility] PRAVASTATIN SODIUM 20 MG TABS 1 tablet by mouth once a day 04/17 pravastatin 72668747762 [facility] aspirin 81 mg capsule 1 capsule by mouth once a day 04/17 aspirin [facility] ITRACONAZOLE 100 MG CAPS Take 2 capsule by mouth twice a day 04/14 itraconazole 18537492906 Anne Merlos ITRACONAZOLE 100 MG CAPS TAKE TWO CAPSULES BY MOUTH TWICE DAILY itraconazole 89981128894 Rocky Patino MD IPRATROPIUM-ALBU TEROL 0.5-2.5 (3) MG/3ML SOLN 01/19 ipratropium-albut [place] 10815700908 Amrita Rhodain JARDIANCE 10 MG TABS 1 tablet by mouth once a day 01/19 empagliflozin 91996375528 Amrita Hope ITRACONAZOLE 100 MG CAPS Take 2 capsule by mouth twice a day 04/14 itraconazole 38355181952 Rocky Patino MD XARELTO 20 MG TABS 04/17 rivaroxaban 52521860748 [facility] aspirin 81 mg capsule 1 capsule by mouth once a day 04/17 aspirin Laiba Sonu budesonide 9 mg by mouth as needed as directed 04/17 budesonide Laiba Sonu VITAMIN D 25 MCG (1000 UT) TABS 1 tablet by mouth once a day cholecalciferol (vitamin d3) 92806474970 Laiba Sonu JARDIANCE 10 MG TABS 1 tablet by mouth once a day 01/19 empagliflozin 75479401253 Laiba Sonu EZETIMIBE 10 MG TABS 1 tablet by mouth once a day 04/17 ezetimibe 21034336508 Laiba Sonu insulin lispro protamine-lispro 100 unit/mL (75-25) subcutaneous susp insulin lispro protamin-lispro Laiba Sonu IPRATROPIUM-ALBU TEROL 0.5-2.5 (3) MG/3ML SOLN ipratropium-albut [place] 83819090544 Laiba Sonu LEVOTHYROXINE SODIUM 50 MCG TABS 1 tablet by mouth once a day levothyroxine 82727679695 Laiba Sonu METFORMIN HCL 500 MG TABS 1 tablet by mouth once a day metformin 70352068048 Laiba Sonu MIRTAZAPINE 15 MG TABS 1 tablet by mouth once a day mirtazapine 91680496083 Laiba Sonu MYCOPHENOLATE MOFETIL 500 MG TABS 1 tablet by mouth twice a day mycophenolate mofetil 76240109430 Laiba Sonu PRAVASTATIN SODIUM 20 MG TABS 1 tablet by mouth once a day 04/17 pravastatin 07339781453 Laiba Sonu URSODIOL 500 MG TABS 1 tablet by mouth twice a day ursodiol 88210573883 Laiba Sonu Medications Administered No information available. 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 yes Fall ris k assessment [...] or Plasma Office Visit: Office Visit: 4 SMOK STATUS Former smoker Tobacco smoking status MEDS REVIEW Done Documenta tion of current medications (procedure) Plan of Care Type Date Detail Appointment 11:30 AM Rocky Patino MD, [address], [address], [place], [address], Referral CT Abdomen w/o c ontrast Referral CT Chest w/o con trast Referral CT Abdomen w/o c ontrast Referral CT Chest w/o con trast Pending order Continue oral an tibiotics Pending order CMP Pending order CBC with Differe ntial Pending order Voriconazole Lev el Pending order CMP Pending order CBC with [...] (G2211) G2211 Complex E&M visit add-on (G2211) CPT-97916 CMP [id number] CBC with Differential 2024 CPT-84870 Voriconazole Level 6 CPT-elizabeth New Oral Antibiotic CPT-coral Change oral antibiotics 2024 G2211 Complex E&M visit add-on (G221) G2211 Complex E&M visit add-on (G2) CPT-72254 CMP [id number] CBC with Differential 2024 CPT-80736 BNP CPT-43708 Itraconazole Level 3 CPT-Cooral Continue oral antibiotics 20 29/04/13 G2211 Complex E&M visit add-on (G2) CPT-Cooral Continue oral antibiotics 27/02/11 CPT-15902 CMP [id number] CBC with Differential 2024 CPT-18698 Itraconazole Level 1 CPT-24682 BNP CPT-elizabeth New Oral Antibiotic CPT-88961 CMP [id number] CBC with Differential 2024 CPT-20324 CD4 35840 Fungitell, serum (1-3) D-Glucan Assay 03/07/12 CPT-88106 Urine Culture & Sensitivity [id number], [id number] Urinalysis CPT-cf Fungal Culture & Sensitivity CPT-79530 BNP Vital Signs Date Name Value Unit [...]
--- OUTSIDE RECORDS SUMMARY | 2025-10-15 00:43 | XMS_ITS | Patient Health Record ---
Author Organization [facility] Address [address] [facility] [address] [id number] Care Team Providers Care Machine I Coremaker Name Role Phone Shauna Almanzar Primary Care Provider [phone] [place] Emir Unavailable [phone] Nino Burnsa Unavailable [phone] Allergies Allergen (clinical drug ingredient) Drug/Non Drug [...] 229 Performing Lab: Notes/Report: Test performed by [facility] , [address], [place] [address] Kristian Trevino MD, Contact Center Analyst CLIA: [id number] Sodium 138 135-145 mmol/L Potassium 4.3 3.5-5.3 [...] 5.5 Performing Lab: Notes/Report: Test performed by [facility] , [address], [place] [address] Kristian Trevino MD, Contact Center Analyst CLIA: [id number] Sodium 139 135-145 mmol/L Potassium 3.7 3.5-5.3 [...] 695 Performing Lab: Notes/Report: Test performed by [facility] [address] [place] [address] , [address], [place] [address] Kristian Trevino MD, Contact Center Analyst CLIA: [id number] Albumin/Creatinine Ratio, Urine 695 0-30 ug/mg Microalbumin, Urine, Random 16.4 Creatinine, Urine 23.6 CXR Reviewed date:11/04/2024 09:39:36 AM Interpretation:chronic findings, nothing new Performing Lab: Notes/Report: chronic findings, nothing new P-Sed Rate (ESR) Reviewed date:06/10/2025 08:30:05 AM Interpretation:31 Performing Lab: Notes/Report: CLIA: [id number] Kristian Trevino MD, Contact Center Analyst [address] [place] [address] , [address], [place] [address] Test performed by [facility] Erythrocyte Sedimentation Ra te (ESR), Automated 31 <21 mm/hr B-F-Ruimghtc Protein (CRP) Reviewed date:06/10/2025 08:30:05 AM Interpretation:4.00 Performing Lab: Notes/Report: Test performed by [facility] [address] [place] [address] [address], [address], [place] [address] Kristian Trevino MD, Contact Center Analyst CLIA: [id number] C-Reactive Protein (CRP) 4.00 <0.50 mg/dL P-CPK Reviewed date:06/10/2025 08:30:05 AM Interpretation:23 Performing Lab: Notes/Report: Test performed by [facility] [address] [place] [address] [address], [address], [place] [id number] Kristian Trevino MD, Contact Center Analyst CLIA: [id number] Creatine Kinase 23 20-200 U/L P-Comprehensive Metabolic [place] ([facility]) Reviewed date:06/10/2025 08:30:05 AM Interpretation:K 3.0, Glu 245, Creat 1.52, eGFR 48, Pro 5.8, Alb 3.2, Alk Phos 232 Performing Lab: Notes/Report: Test performed by [facility], [address] , [address], [place] [address] Kristian Trevino MD, Contact Center Analyst CLIA: [id number] Sodium 141 135-145 mmol/L Potassium 3.0 3.5-5.3 [...] 6.9 glycohemoglobin 6.9% 5 - 6.5 % CBC Venipuncture (in house) Reviewed date:07/03/2025 12:46:28 [...] - 38 platlet 447 100 - 400 P-Basic Metabolic Panel (BMP ) Reviewed date:07/07/2025 10:18:42 AM Interpretation:Glu 175 Performing Lab: Notes/Report: CLIA: [id number] Kristian Trevino MD, Contact Center Analyst [address] [place] [address] , [place] [address] Test performed by [facility] Sodium 140 135-145 mmol/L Potassium 4.1 3.5-5.3 mmol/L Chloride 105 97-108 mmol/L CO2 22 20-32 mmol/L Glucose 175 65-99 mg/dL BUN 12 8-23 mg/dL Creatinine 1.26 0.70-1.30 mg/dL Calcium 9.4 8.6-10.4 mg/dL eGFR by Creatinine 60 >59 mL/min/1.73m2 P-Cortisol, Random Reviewed date:07/07/2025 10:18:42 AM Interpretation: Normal Performing Lab: Notes/Report: CLIA: [id number] Kristian Trevino MD, Contact Center Analyst [address] [place] [address] , [place] [address] Test performed by [facility] Cortisol, Random 7.7 CORTISOL REFERENCE RANGE AM Serum: 6.0-18.4 ug/dL PM Serum: 2.7-10.5 ug/dL P-Iron Reviewed date:07/07/2025 10:18:42 AM Interpretation:28 Performing Lab: Notes/Report: Test performed by [facility] [address] [place] [address] , [place] [address] Kristian Trevino MD, Contact Center Analyst CLIA: [id number] Iron 28 59-158 ug/dL P-TSH Reviewed date:07/07/2025 10:18:42 AM Interpretation:6.42 Performing Lab: Notes/Report: Test performed by [facility] [address] [place] [address] , [place] [address] Kristian Trevino MD, Contact Center Analyst CLIA: [id number] TSH 6.42 0.43-5.25 mU/L P-TSH reflex to FT4 Reviewed date:06/10/2025 08:30:05 AM Interpretation:Normal Performing Lab: Notes/Report: Test performed by [facility] [address] [place] [address] , [place] [address] Kristian Trevino MD, Contact Center Analyst CLIA: [id number] TSH reflex to FT4 3.44 0.43-5.25 mU/L P-Vitamin D 25-Hydroxy Reviewed date:06/10/2025 08:30:05 AM Interpretation:Normal Performing Lab: Notes/Report: Test performed by [facility] [address] [place] [address] , [place] [id number] Kristian Trevino MD, Contact Center Analyst CLIA: [id number] Vitamin D 25-Hydroxy 57.8 30.0-100.0 ng/mL Interpretation of Vitamin D 25 OH: < 20 ng/mL - Deficiency 20 - 29 ng/mL - Insufficiency 30 - 100 ng/mL - Sufficiency > 100 ng/mL - Super-therapeutic- toxicity may occur above this level. Clinical correlation required. H-CBC Reviewed date:11/04/2024 10:00:59 AM Interpretation: Performing [...] 0.0 0-0.2 K/mm3 Urinalysis - Inhouse Reviewed date:01/18/2025 02:07:53 PM Interpretation: Performing Lab: Notes/Report: Color/Clarity red/cloudy Leuk Neg Nitrite Neg Urobili 3.2 Protein 2+ pH 5.5 Blood 3+ Sp. Gr. 1.015 Ketone Neg Bili 1+ Gluc 2+ Cologuard Reviewed date:08/27/2025 03:18:22 PM Interpretation:Negative Performing [...] every 6 hrs Active [employer] [place] 3 [place] - as directed 05/12/2025 Not-Taking Warfarin Sodium [...] W/U Status Risk Notes Problem Essential hypertension (94062013) Essential (primary) hypertension (I10) Active confirmed Problem Vitamin D deficiency (84265584) Vitamin D deficiency (E55.9) Active confirmed Problem Essential hypertension (84396151) Essential hypertension (I10) Active confirmed Problem Screening for malignant neoplasm of prostate (381712975) Prostate cancer screening (Z12.5) Active confirmed Problem Anorexia (72696138) Anorexia (R63.0) Active con firmed Problem Paroxysmal atrial fibrillation (511317678) Paroxysmal atrial fibrillation (I48.0) Active confirmed Problem Hyperglycemia due to type 2 diabetes mellitus (278836984576435) Type 2 diabetes mellitus with hyperglycemia (E11.65) Active confirmed Problem Mixed hyperlipidemia (096930278) Mixed hyperlipidemia (E78.2) Active confirmed Problem Hyperlipidemia (85327609) Hyperlipidemia, unspecified (E78.5) Active confirmed Problem Hereditary hemochromatosis (45884853) 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) Active confirmed Problem Chronic respiratory failure (07461445) Chronic respiratory failure with hypoxia (J96.11) Active confirmed Problem Autoimmune hepatitis (705315843) Autoimmune hepatitis (K75.4) Active confirmed Problem Cholelithiasis without obstruction (78025058) Calculus of gallbladder without cholecystitis without obstruction (K80.20) Active confirmed Problem Cochlear implant status (Z96.21) Active confirmed Problem Male erectile disorder (635423935) Male erectile disorder (N52.9) Active confirmed Problem Long-term current use of insulin (791317580) salvage determiner (current) use of insulin (Z79.4) Active confirmed Problem Type II diabetes mellitus without complication (700734665) Type 2 diabetes mellitus without complication (E11.9) Active confirmed Problem Acquired hypothyroidism (471843759) Acquired hypothyroidism (E03.9) Active confirmed Problem Pulmonary fibrosis (04210698) Pulmonary fibrosis (J84.10) Active confirmed Problem Chronic fatigue syndrome (66545749) Chronic fatigue (R53.82) Active confirmed Problem COPD - Chronic obstructive pulmonary disease (72871197) Chronic obstructive pulmonary disease, unspecified COPD type (J44.9) Active confirmed Problem Pneumonia (225249614) Pneumonia of right lower lobe due to infectious organism (J18.9) Active confirmed Problem Hearing loss (85357493) Hearing loss, bilateral (H91.93) Active confirmed Problem Disorder of adrenal gland (78218773) 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) Active confirmed Problem Abnormal gait (57809107) Imbalance (R26.89) Active confirmed Problem Neutropenia (123191871) Neutropenia, unspecified type (D70.9) Active confirmed Problem Interstitial lung disease (673857622) Interstitial lung disease (J84.9) Active confirmed Problem Seasonal allergic rhinitis (403884404) Seasonal allergic rhinitis, unspecified allergic rhinitis trigger (J30.2) Active confirmed Problem Granulocytopenia (409954140) 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 confirmed Problem Systemic lupus erythematosus (84082578) Lupus (systemic lupus erythematosus) (M32.9) Active confirmed Problem Cardiac arrhythmia (107911225) Cardiac arrhythmia, unspecified cardiac arrhythmia type (I49.9) Active confirmed Problem Malnutrition, calorie (394473132) Caloric malnutrition (E46) Active confirmed Problem Benign prostatic hypertrophy without outflow obstruction (288887312) BPH without urinary obstruction (N40.0) Active confirmed Problem Allergic rhinitis caused by pollen (83323814) Acute seasonal allergic rhinitis due to pollen (J30.1) Active confirmed Problem Sensorineural hearing loss, bilateral (658914050) Sensorineural hearing loss (SNHL) of both ears (H90.3) Active confirmed Problem Cholestatic hepatitis (08676772) Cholestatic hepatitis (K75.89) Active confirmed Problem Skin sensation disturbance (61441676) Sensitive skin (R20.3) Active confirmed Problem Dilatation of aorta (74551269) Dilatation of aorta (I77.819) Active confirmed Problem Tomography - chest abnormal (752297822) Abnormal CT scan, chest (R93.89) Active confirmed Problem Left atrial dilatation (977450577) Left atrial dilatation (I51.7) Active confirmed Problem Chronic vascular insufficiency of intestine (780704056) 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 Problem Protein malnutrition (20694957) Protein malnutrition (E46) Active confirmed Vital Signs Heart Rate 105 /min 08/07/2025 Blood pressure diastolic 60 mm Hg 08/07/2025 Height 65 in 08/07/2025 Blood pressure systolic 102 mm Hg 08/07/2025 Weight 123.6 lbs 08/07/2025 BMI 20.57 kg/m2 08/07/2025 Encounters Encounter Location Date Provider Diagnosis [facility] [address] [id number] 11/03/2024 Emir [place] Acute cough R05.1 [facility] [address], [place] [id number] 11/07/2024 Shauna Almanzar Type 2 diabetes aquilino itus without complication E11.9 ; Acquired hypothyroidism E03.9 and Hereditary hemochromatosis E83.110 [facility] [address] [facility] [address], [place] [id number] 01/09/2025 Shauna Almanzar Type 2 diabetes aquilino itus without complication E11.9 ; Hereditary hemochromatosis E83.110 ; Cochlear implant status Z96.21 ; Chronic obstructive pulmonary disease, unspecified COPD type J44.9 ; Essential (primary) hypertension I10 ; Protein malnutrition E46 and Gross hematuria R31.0 [facility] [address] [place], [place] [id number] 01/15/2025 Shauna Almanzar Interstitial lung disease J84.9 ; 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 ; Autoimmune hepatitis K75.4 ; Protein malnutrition E46 ; Cochlear implant status Z96.21 ; Type 2 diabetes mellitus without complication E11.9 and Hematuria R31.9 [facility] [address] [id number] 02/11/2025 Emir Berger Type 2 diabetes aquilino itus with hyperglycemia E11.65 ; penitentiary (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.4 ; Gross hematuria R31.0 and Body mass index (BMI) of 19.0 to 19.9 in adult Z68.1 [place] [address] [address] [id number] 03/13/2025 Doretha Burns Drug interaction Z78 .[address] [id number] 04/02/2025 Shauna Almanzar Type 2 diabetes aquilino itus without complication E11.9 ; 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 ; Cholestatic hepatitis K75.89 ; salvage determiner (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.4 ; 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 ; Generalized weakness R53.1 and BMI 20.0-20.9, adult Z68.20 [place] [address] [address] [id number] 04/30/2025 Shauna Almanzar Type 2 diabetes aquilino itus with hyperglycemia E11.65 ; penitentiary (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.4 ; Adrenal [...] adult Z68.22 and Cochlear implant status Z96.21 [facility] [address] [place], [place] [id number] 06/09/2025 Emir [place] Generalized weakness R53.1 ; Anorexia R63.0 and Vitamin D deficiency E55.9 [facility] [address] [place], [place] [id number] 07/03/2025 Shauna Almanzar Hypokalemia E87.6 ; Essential hypertension I10 ; Chronic fatigue R53.82 ; Protein malnutrition E46 ; Type 2 diabetes mellitus with hyperglycemia E11.65 ; salvage determiner (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.4 ; 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 ; 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 and BMI 21.0-21.9, adult Z68.21 [facility] [address] [place], [place] [id number] 08/07/2025 Shauna Almanzar Type 2 diabetes aquilino itus without complication E11.9 ; Acquired hypothyroidism E03.9 ; Hereditary hemochromatosis E83.110 ; Cochlear implant status Z96.21 ; Interstitial lung disease J84.9 ; penitentiary (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.4 and 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 [facility] [address] [place], [place] [id number] 11/03/2024 Emir [place] [facility] [address] [place], [place] [id number] 01/12/2025 Shauna Almanzar [facility] [address] [place], [place] [id number] 05/12/2025 Shauna Almanzar [facility] [address] [place], [place] [id number] 05/12/2025 Shauna Almanzar [facility] [address] [place], [place] [id number] 06/04/2025 Shauna Almanzar [facility] [address] [place], [place] [id number] 06/10/2025 Emir [place] [facility] [address] [place], [place] [id number] 06/10/2025 Shauna Almanzar [facility] [address] [place], [place] [id number] 06/23/2025 Shauna Almanzar Colon cancer screeni ng Z12.11 [facility] [address] [place], [place] [id number] 07/06/2025 Shauna [facility] [address] [place], [place] [id number] 07/07/2025 Shauna Almanzar [facility] [address] [place], [place] [id number] 07/16/2025 Shauna Almanzar [facility] [address] [place] [id number] 08/27/2025 Shauna Almanzar Assessments Encounter Date Diagnosis (ICD Code) Assessment Notes Treatment Notes Treatment Clinical Notes Section Notes 08/07/2025 Type 2 diabetes mellitus without complication (ICD-10 - E11.9) 07/03/2025 Hypokalemia (ICD-10 - E87.6) 07/03/2025 Essential hypertension (ICD-10 - I10) 06/09/2025 Anorexia (ICD-10 - R63.0) Boost or Ensure 1 can bid 06/09/2025 Generalized weakness (ICD-10 - R53.1) 06/23/2025 Colon cancer screening (ICD-10 - Z12.11) 04/30/2025 Type 2 diabetes mellitus with hyperglycemia (ICD-10 - E11.65) 04/30/2025 penitentiary (current) use of insulin (ICD-10 - [...] they are the ones managing this medication. 02/11/2025 Type 2 diabetes mellitus with hyperglycemia (ICD-10 - E11.65) Patient needs to resume use of his CGM 02/11/2025 penitentiary (current) use of insulin (ICD-10 - Z79.4) 01/15/2025 Adrenal abnormality (ICD-10 - E27.9) 01/15/2025 Interstitial lung disease (ICD-10 - J84.9) 01/09/2025 Hereditary hemochromatosis (ICD-10 - E83.110) 01/09/2025 Type 2 diabetes mellitus without complication (ICD-10 - E11.9) 11/07/2024 Type 2 diabetes mellitus without complication (ICD-10 - E11.9) 11/07/2024 Acquired hypothyroidism (ICD-10 - E03.9) 11/03/2024 Acute cough (ICD-10 - R05.1) 01/09/2025 Cochlear implant status (ICD-10 - Z96.21) 11/07/2024 Hereditary hemochromatosis (ICD-10 - E83.110) 01/15/2025 Autoimmune hepatitis (ICD-10 - K75.4) 02/11/2025 Gross hematuria (ICD-10 - R31.0) Plan follow up with Dr. Lund soon, after he sees ID and GI in the next week 04/02/2025 Adrenal abnormality (ICD-10 - E27.9) 04/30/2025 Adrenal abnormality (ICD-10 - E27.9) 06/09/2025 Vitamin D deficiency (ICD-10 - E55.9) 07/03/2025 Chronic fatigue (ICD-10 - R53.82) 08/07/2025 Acquired hypothyroidism (ICD-10 - E03.9) 08/07/2025 Hereditary hemochromatosis (ICD-10 - E83.110) 07/03/2025 Protein malnutrition (ICD-10 - E46) 04/30/2025 Interstitial lung disease (ICD-10 - J84.9) 02/11/2025 Body mass index (BMI) of 19.0 to 19.9 in adult (ICD-10 - Z68.1) 04/02/2025 Cholestatic hepatitis (ICD-10 - K75.89) 01/15/2025 Protein malnutrition (ICD-10 - E46) 01/09/2025 Chronic obstructive pulmonary disease, unspecified COPD type (ICD-10 - J44.9) 01/09/2025 Essential (primary) hypertension (ICD-10 - I10) 01/15/2025 Cochlear implant status (ICD-10 - Z96.21) 04/02/2025 penitentiary (current) use of insulin (ICD-10 - Z79.4) 04/30/2025 Essential (primary) hypertension (ICD-10 - I10) 08/07/2025 Cochlear implant status (ICD-10 - Z96.21) 07/03/2025 Type 2 diabetes mellitus with hyperglycemia (ICD-10 - E11.65) 07/03/2025 penitentiary (current) use of insulin (ICD-10 - Z79.4) 04/30/[address] scan, chest (ICD-10 - R93.89) 08/07/2025 Interstitial lung disease (ICD-10 - J84.9) 04/02/2025 Histoplasmosis (ICD-10 - B39.9) 01/15/2025 Type 2 diabetes mellitus without complication (ICD-10 - E11.9) 01/09/2025 Protein malnutrition (ICD-10 - E46) 01/09/2025 Gross hematuria (ICD-10 - R31.0) 01/15/2025 Hematuria (ICD-10 - R31.9) 04/30/2025 Calculus of gallbladder without cholecystitis without obstruction (ICD-10 - K80.20) 04/02/2025 Generalized weakness (ICD-10 - R53.1) 08/07/2025 penitentiary (current) use of insulin (ICD-10 - Z79.4) 07/03/2025 Histoplasmosis (ICD-10 - B39.9) 07/03/2025 Adrenal abnormality (ICD-10 - E27.9) 08/07/2025 Adrenal abnormality (ICD-10 - E27.9) 04/02/2025 BMI 20.0-20.9, adult (ICD-10 - Z68.20) 04/30/2025 Hereditary hemochromatosis (ICD-10 - E83.110) 07/03/2025 BMI 21.0-21.9, adult (ICD-10 - Z68.21) [...] H-TSH 11/07/2024 Next Appt Details Provider Name:Shauna Rogeroi [place], 11/12/2025 01:30:00 PM, [address], [place], [place], [id number], Insurance Providers Payer Name Payer Address Payer Phone Subscriber Number Group Number Insured Name Patient Relationship to Insured Coverage Start Date Coverage End Date [facility] [address] [address] [place] [address] [id number] Jose Luis Trevino Self - patient is the insured Medical (General) History Medical History History ICD Code Seasonal Allergies Kidney Stones Steatohepatitis hemachromatosis,(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 Smalls and Dr. Thakur Atrial dysrrhythmia, see notes 2011 hearing loss 2013, hearing aids Impaired fasting glucose Gets yearly eye exams, [facility] Questionable Dx Lupus erythematosus 2016 [...]
--- OUTSIDE RECORDS SUMMARY | 2025-10-15 00:44 | XMS_ITS | Encounter Summary ---
Author Organization Healthcare Address [address] [place] [address] Care Team Providers Care Skip Locator Name Role Phone Rocky Almanzar MD Primary Care Provider [phone] Reason for Visit * Reason Comments Med Refill Encounter Details Date Type Department Care Team (Late Contact Info) Description 05/20/2021 Refill [facility] [address] [place] [address] Jason Romero MD [address] [address] Social History Tobacco Use Types [...] Visit [facility] [address] [place] [address] Melany Rosales, DO [address] [place] [address] 01/05/2026 11:00 AM EST Office Visit 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
--- OUTSIDE RECORDS SUMMARY | 2025-10-15 00:44 | XMS_ITS | Clinical Summary ---
Author Organization [facility] Address [address] [place] [address] Care Team Providers Care Steel Checker Name Role Phone Rocky Almanzar MD Primary Care Provider [phone] Allergies Active Allergy Reactions Criticality Noted Date [...] Type Department Care Team Description 09/01/2025 Refill Hallie Cho [facility] Endocrinology [address] [place] [address] Jason Romero MD Type 2 diabetes mellitus with hyperglycemia, with long-term current use of insulin 07/20/2025 1:30 PM EDT Clinical Support Kimomeaakash Cho [facility] [address] [place] [address] 07/20/2025 Orders Only [facility] End[facility]ology [address] [place] [address] Melany Rosales DO Type 2 diabetes mellitus with hyperglycemia, with long-term current use of insulin ([facility]) (Primary Dx) 07/20/2025 Travel 07/17/2025 2:00 PM EDT Office Visit [facility] Audiology [address] [place] [address] Lottie Lund AuD Sensorineural hearing loss (SNHL) of both ears 07/17/2025 Travel from Last 3 Months Immunizations Immunization Administration [...] Description 01/05/2026 9:40 AM EST [facility]ology [address] [place] [address] Melany Rosales, DO [address] [place] [address] 01/05/2026 11:00 AM EST Office Visit [facility] [place] [address], [address] [place] [address] Vivian Macias, OD [address] [place] [address] Health Maintenance Due Date Last Done Comments [facility]-Depression Screening 1950 [facility]-Medicare Annual Wellness (AWV) 1950 [facility]-/Child/Adol SDOH Screenings 1950 Diabetes: Dental Exam 1961 [facility]- SDOH Screenings 1969 [facility]-Adult SDOH Screenings 1969 [facility]-DTaP,Tdap,and Td Vaccines (1 - Tdap) 1970 [facility]-Zoster Vaccines (1 of 2) 1970 CT Colonography 1996 FIT-DNA 1996 FIT 1996 FOBT 1996 Sigmoidoscopy 1996 [facility]-Abdominal Aortic Aneurysm (AAA) Screening 2016 [id number] Vaccine ( season) 2025 10/13/2024, 10/01/2023, 09/20/2022, Additional history exists [facility]-Influenza Vaccine (#1) 07/06/202510/16, 09/22/2021, 09/22/2021, Additional history exists [facility]-Diabetes: Hemoglobin A1C 01/04/202612/2024, 12/16/2024, 05/23/2024, Additional history exists Colonoscopy 08/03/2027 08/03/2017 [facility]-Colorectal Cancer Screening 08/03/2027 [facility]-Hepatitis A Vaccines Completed 03/03/2013, 07/07 [facility]-Hepatitis C Screening Completed 08/15/2016 [facility]-Pneumococcal Vaccine: 50+ Years Completed 08/13/2018, 08/03/2015 [facility]-RSV Vaccine: 60+ Years or Completed 11/02/2023 HPV Vaccines (No Doses Required) Completed [facility]-HIB Vaccines Aged Out No longer e ligible based on patient's age to complete this topic [facility]-IPV Vaccines Aged Out No longer e ligible based on patient's age to complete this topic [facility]-Rotavirus Vaccines Aged Out No lo nger eligible based on patient's age to complete this topic Medical Devices Implanted Type Area Project Management Intern Device Identifier Shelf Expiration Date Model / Serial / Lot Roseline king Advantage Ci Hifocus 1j Electrode--06/05 Implanted:06/05 by Ky Del Rio MD (Quantity not on file) Cochlear Left: Ear Advanced [employer] [facility] [id number] / [id number] / Description:Roseline StanleyK Advant age CI HiFocus 1J electrode--cochlear implant by Dr. Del Rio at [facility] on 06/21/2017, operative note in Epic. LEFT EAR. Roseline ULTRA 3D Cochlear implant REF: [id number] Serial number: [id number] Procedures Procedure Name Priority Date/Time Associated Diagnosis Comments CORTISOL, 60 Routine 07/20/2025 2:40 PM EDT Elevation of adrenocorticotropic hormone (ACTH) CORTISOL, 30 Routine 07/20/2025 2:03 PM EDT Elevation of adrenocorticotropic hormone (ACTH) ADRENOCORTICOTROPIC HORMONE (ACTH) Routine 07/20/2025 1:28 PM EDT Elevation of adrenocorticotropic hormone (ACTH) CORTISOL Routine 07/20/2025 1:28 PM EDT Elevation of adrenocorticotropic hormone (ACTH) POCT GLYCOSYLATED HEMOGLOBIN (HGB A1C) Routine 07/07/2025 12:03 PM EDT Type 2 diabetes mellitus with hyperglycemia, with long-term current use of insulin ([facility]/H[facility]) COLONOSCOPY 08/03/2017 HEPATITIS C ANTIBODY W/REFLEX TO HCV QUANT PCR Routine 08/15/2016 10:05 AM EDT from Last 3 Months or Most Recently Relevant to Health Maintenance Results * CORTISOL, 60 (07/20/2025 2:40 PM EDT) Cortisol Time=60 21.00 Before 10am: 3.7 - 19.4. After 5pm: 2.9 - 17.3 ug/dL 07/20/2025 8:20 PM EDT [facility] Comment: Testing performed on Robert Silk Snapper, standardized against [facility] Reference Standard concentration values assigned by LC-MS/MS [...] BLOOD ORDERABLES Final Result Performing Organization Address [facility] Co de Phone Number [facility] [address] [place] [address] * Cortisol, 30 (07/20/2025 2:03 PM EDT) Pathologist [facility] Cortisol,Time=30 18.30 Before 10am: 3.7 - 19.4. After 5pm: 2.9 - 17.3 ug/dL 07/20/2025 8:19 PM EDT [facility] Comment: Testing performed on Robert Silk Snapper, standardized against [facility] Reference Standard concentration values assigned by LC-MS/MS [...] BLOOD ORDERABLES Final Result Performing Organization Address City/[facility]/ZIP Co de Phone Number [facility] [address] [place] [address] * (ABNORMAL) ACTH (07/20/2025 1:28 PM EDT) [facility] ACTH 68.2(H) 7.2 - 63 pg/mL 07/20/2025 5:38 PM EDT [facility] Blood Venous blood specimen / Unknown Venipuncture / Unknown 07/20/2025 1:28 PM EDT 07/20/2025 1:42 PM EDT us Melany Rosales DO LAB BLOOD ORDERABLES Final Result Performing Organization Address [facility]/[place] [address] * Cortisol, Time=0 (07/20/2025 1:28 PM EDT) [facility] Cortisol 8.20 Before 10am: 3.7 - 19.4. After 5pm: 2.9 - 17.3 ug/dL 07/20/2025 8:23 PM EDT [facility] Comment:Testing performed on Robert Silk Snapper, standardized against [facility] Reference Standard concentration values assigned by LC-MS/MS and verified by BCR 192 and BCR 193 certified reference materials. Blood Venous blood specimen / Unknown Venipuncture / Unknown 07/20/2025 1:28 PM EDT 07/20/2025 4:08 PM EDT us Melany Rosales DO LAB REF LAB BLOOD [place] [address] * POCT glycosylated hemoglobin (Hb A1C) (07/07/2025 12:03 PM EDT) [facility] POCT Hemoglobin A1C 6.7 <5.7% Non-Diabet ic % [facility] Kit Lot Number [id number] [facility] Kit Expiration Date 04/2027 [facility] Blood Venous blood specimen / Unknown 07/07/2025 12:03 PM EDT us Melany Rosales DO POINT OF CARE TEST ENTER/ED IT ORDERABLES Edited Result - Final [facility] [address] [place] [address] * COLONOSCOPY (08/03/2017) Anatomical Region Laterality Modality [...] Date Last Indicated MRSA 03/30/2021 03/30/2021 Insurance [facility] MEDICARE [facility] Care Teams Steel Checker Relationship Specialty Start Date End Date Rocky Almanzar MD [address] [place] [address] PCP - General 03/18/21
[2025-10-15 00:52] LABS: Hematocrit 37.2 % (42.0-52.0); Hemoglobin 11.4 g/dL (14.1-18.0); Immature Granulocytes % 4.3 %; Mean Corpuscular HGB Conc 30.6 g/dL (31.8-35.4); Mean Corpuscular Hemoglobin 24.2 pg (27.0-31.2); Mean Corpuscular Volume 79.0 fl (80-94); Nucleated Red Blood Cells % 1.1 %; Platelet Count 320 K/mm3 (142-424); Red Blood Count 4.71 M/mm3 (4.60-6.20); Red Cell Distribution Width-SD 62.2 fL; White Blood Count 2.8 K/mm3 (4.8-10.8)
[2025-10-15] MEDS: LACTATED RINGERS 1000ML 1,000 ML 999 ML IV (00:53)
[2025-10-15] MEDS: ONDANSETRON 4MG/2ML VIAL 4 MG IV (00:53)
[2025-10-15 00:56] LABS: Adenovirus,PCR Not Detected (NotDetected); Chlamydophila Pneumoniae, PCR Not Detected (NotDetected); Coronavirus 19, PCR Not Detected (NotDetected); Coronovirus HKU1,PCR Not Detected (NotDetected); Influenza A, PCR Not Detected (NotDetected); Influenza AH1, 2009 Not Detected (NotDetected); Influenza AH1, PCR Not Detected (NotDetected); Influenza AH3,PCR Not Detected (NotDetected); Influenza B, PCR Not Detected (NotDetected); Mycoplasma Pneumoniae, PCR Not Detected (NotDetected); Parainfluenza 1, PCR Not Detected (NotDetected); Parainfluenza 2, PCR Not Detected (NotDetected); Parainfluenza 3, PCR Not Detected (NotDetected); Parainfluenza 4, PCR Not Detected (NotDetected)
--- NOTE | 2025-10-15 01:02 | ECG_ITS ---
APPROVED REPORT Exam: Resting ECG HR:111 bpm ECG Measurements Heart Rate 111 AXES NH 139 P 33 QRSd 87 QRS -58 QT 275 T 20 QTc 340 Conclusion SINUS TACHYCARDIA LEFT AXIS DEVIATION [QRS AXIS < -30] PATTERN CONSISTENT WITH PULMONARY DISEASE NONSPECIFIC T-WAVE ABNORMALITY No STEMI Electronically signed by : RUSSELL CHACON, 10/15/2025 03:00:50
[2025-10-15 01:10] LABS: Alanine Aminotransferase 101 U/L (12-78); Albumin Level 4.3 g/dl (3.5-5.0); Albumin/Globulin Ratio 1.5 (1.1-1.8); Alkaline Phosphatase 142 U/L (38-126); Anion Gap 15.8 mEq/L (5-15); Aspartate Amino Transferase 47 U/L (17-59); Bilirubin,Total 0.7 mg/dl (0.2-1.3); Blood Urea Nitrogen 37 mg/dl (9-20); Calcium 9.8 mg/dl (8.4-10.2); Carbon Dioxide 26 mmol/L (22.0-30.0); Chloride 103 mmol/L (98-107); Creatinine Clearance Estimated 42 mL/min (50-200); Creatinine,Serum 1.20 mg/dl (0.66-1.25); Estimated Glomerular Filt Rate 59 ml/min (>60); GFR (African American) 72 ML/MIN (>60); Globulin 2.9 g/dL (1.3-3.2); Glucose 154 mg/dl (74-100); Potassium 3.8 mmoL/L (3.5-5.1); Sodium 141 mmol/L (136-145); Total Protein,Serum 7.2 g/dl (6.3-8.2)
[2025-10-15 01:11] LABS: INR 0.89 (0.9-1.1); Prothrombin Time 10.0 seconds (10.1-12.5)
--- NOTE | 2025-10-15 01:13 | [facility].EDGENADL ---
Discharge Plan Disposition Patient Disposition: Admitted Condition: Fair Prescriptions Prescriptions: No Action cholecalciferol (vitamin D3) 25 mcg (1,000 unit) capsule 2,000 unit PO DAILY Jardiance 10 mg tablet 10 mg PO DAILY levothyroxine 50 mcg tablet 75 mcg PO DAILY Patient Comments: TAKE ONE TABLET BY MOUTH EVERY MORNING ON an EMPTY stomach mirtazapine [Remeron] 15 mg tablet 15 mg PO DAILY ipratropium-albuterol 0.5 mg-3 mg(2.5 mg base)/3 mL solution for nebulization 3 ml inhalation Q8H PRN (Reason: Asthma) mycophenolate mofetil 500 mg tablet 1,500 mg PO ONCE Qty: 90 12RF Rx Instructions: Please take 3 tablets by mouth once daily budesonide 3 mg capsule,delayed,extend.release 9 mg PO .At bedtime Qty: 90 12RF Rx Instructions: Please take 3 capsules by mouth nightly or at bedtime itraconazole 100 mg capsule 200 mg PO BID voriconazole 200 mg tablet 200 mg PO DAILY Patient Comments: TAKE 1 TABLET BY MOUTH ONCE DAILY (DME) [employer] Leroy 3 Plus Sensor Device See Rx Instructions .ROUTE .MEDSUPPLY Qty: 1 Rx Instructions: As directed warfarin 5 mg tablet See Rx Instructions .ROUTE .COMPLEX Qty: 75 2RF Dose Instruction: TAKE 2 AND 1/2 TABLETS BY MOUTH EVERY DAY Rx Instructions: TAKE 2 AND 1/2 TABLETS BY MOUTH EVERY DAY iron sucrose [Venofer] 200 mg iron/10 mL solution 200 mg IV Q3D Rx Instructions: administer over 30 mins ursodiol 500 mg tablet See Rx Instructions .ROUTE .COMPLEX Qty: 90 12RF Dose Instruction: TAKE ONE TABLET BY MOUTH TWICE DAILY Rx Instructions: TAKE ONE TABLET BY MOUTH TWICE DAILY enoxaparin [Lovenox] 60 mg/0.6 mL syringe 60 mg SQ Q12H 10 Days Qty: 12 1RF metformin 500 MG tablet 500 mg PO BID insulin lispro protamin-lispro 100 unit/mL (75-25) insulin pen 26 unit SQ DIRECTED Rx Instructions: Per sliding scale Clinical Impressions Clinical Impression: Nausea, vomiting, and diarrhea, Prerenal azotemia, Tachycardia, Acidosis, lactic, Aneurysm of infrarenal abdominal aorta, Superior mesenteric artery stenosis, Calculus of proximal left ureter, Hydronephrosis, Duodenitis, Celiac artery stenosis Print Language Print Language: Tajik Discharge ED Provider: Little,Mikalah General Adult HPI General Chief complaint: Nausea/Vomiting/Diarrhea Stated complaint: chills, vomiting, diarrhea Time Seen by Provider: 10/15/25 00:34 Mode of Arrival: Ambulatory Source of Information: Patient Description of Symptoms (Recalled from ER Triage Doc. by RN): vomiting after EGD History of Present Illness HPI narrative: 75-year-old male with history of portal hypertension, previous histoplasmosis, adrenal neoplasm, previous leukopenia, diabetes, hypertension, interstitial lung disease not on oxygen at baseline presents to the ER with concerns of approximately 6 hours of nausea, vomiting, diarrhea. Emesis is nonbloody, nonbilious, diarrhea is nonbloody, nonmelanotic. Patient has no dysuria or hematuria. Patient had EGD performed at this facility on 10/14/2025 less than 24 hours ago. Review of this note demonstrates patient has grade a reflux esophagitis with small sliding hiatal hernia and insignificant Schatzki's ring as well as mild linear gastropathy of the antrum. No evidence of portal hypertension or varices. 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 Patient reports no chest pain or difficulty breathing. No headache or dizziness, no numbness, tingling, or weakness. No fevers, patient is experiencing chills. No swelling in the feet or legs. No other complaints or concerns. Patient is extremely hard of hearing and reports they forgot his cochlear implants at home, she helps provide history. She reports the patient was able to tolerate oral intake after his EGD and did not have emesis until after eating supper tonight. Related Data Home Medications ?Medication ?Instructions ?Recorded ?Confirmed metformin 500 mg tablet 500 mg PO BID 01/02/19 10/14/25 insulin lispro protamine-lispro 26 unit SQ DIRECTED Diabetes 01/23/24 10/14/25 100 unit/mL (75-25) subcutaneous pen empagliflozin 10 mg tablet 10 mg PO DAILY 02/21/24 10/14/25 (Jardiance) mirtazapine 15 mg tablet (Remeron) 15 mg PO DAILY 09/18/24 10/14/25 itraconazole 100 mg capsule 200 mg PO BID 02/17/25 10/14/25 ipratropium 0.5 mg-albuterol 3 mg 3 ml inhalation Q8H PRN Asthma 04/13/25 10/14/25 (2.5 mg base)/3 mL nebulization soln blood-glucose sensor (FreeStyle #1 ea 08/13/25 10/14/25 Leroy 3 Plus Sensor device) cholecalciferol (vitamin D3) 25 2,000 unit PO DAILY 08/18/25 10/14/25 mcg (1,000 unit) capsule levothyroxine 50 mcg tablet 75 mcg PO DAILY 08/18/25 10/14/25 voriconazole 200 mg tablet 200 mg PO DAILY 08/26/25 10/14/25 Previous Rx's ?Medication ?Instructions ?Recorded budesonide 3 mg 9 mg (3 x 3 mg) PO .At bedtime #90 08/18/25 capsule,delayed,extended release ea mycophenolate mofetil 500 mg tablet 1,500 mg (3 x 500 mg) PO ONCE #90 08/18/25 tabs warfarin 5 mg tablet See Rx Instructions .Route 08/31/25 .COMPLEX #75 tabs iron sucrose 200 mg iron/10 mL 200 mg (10 mL) IV Q3D 5 doses 09/07/25 intravenous solution (Venofer) ursodiol 500 mg tablet See Rx Instructions .Route 09/24/25 .COMPLEX #90 tabs enoxaparin 60 mg/0.6 mL 60 mg (0.6 mL) SQ Q12H 10 days #12 10/06/25 subcutaneous syringe (Lovenox) mL Allergies Allergy/AdvReac Type Severity Reaction Status Date / Time cephalexin (From Keflex) Allergy Rash Verified 10/14/25 09:54 ragweed pollen Allergy Other Verified 10/14/25 09:54 [facility] Disclaimer: The information contained in this section may have been updated after the patient was seen, as this information can be updated by other users. Medical History Mediastinal lymphadenopathy Mural thrombus of heart Aortic mural thrombus Immunosuppressed status Insomnia Elevated troponin Respiratory failure Colon polyps Melena Community acquired pneumonia On anticoagulant therapy History of atrial flutter Supraventricular tachycardia Palpitations Atrial fibrillation and flutter Atrial flutter Atrial flutter with rapid ventricular response Afib Ex-smoker for more than 1 year Hyperlipidemia associated with type 2 diabetes mellitus Atrial fibrillation with rapid ventricular response Fibrosis of lung Fatigue Steroid dependence Hemochromatosis Hemochromatosis Chronic respiratory failure with hypoxia History of smoking 30 or more pack years ILD (interstitial lung disease) Dyspnea on exertion Cataract Granuloma annulare Diastolic dysfunction Encounter for monitoring flecainide therapy PAF (paroxysmal atrial fibrillation) Surgical History History of colonoscopy History of appendectomy Uses cochlear implant Hx of tonsillectomy H/O left knee surgery Family History Other Cancer Family history of diabetes mellitus type II Heart disease Stroke Social History Smoking Status: Former smoker tobacco type: cigarettes packs per day: 1 pack-years: 50 smoking status stop date: 2004 how long ago did patient quit smokin alcohol intake: never substance use type: denies use current occupational status: retired Travel in the last 8 weeks?: None household members: spouse housing: house 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 [employer] current occupational exposures/hazards: Yes ([employer]) caffeine: Yes Have you lived/traveled outside [place] in past 30 days?: No Contact w/someone who lives/traveled outside [place] past 30 days?: No Exposure to someone with infectious disease in past 14 days?: No Do you have a fever (greater than 100.4 F or 38 C)?: No Have you tested positive for COVID-19?: No Exposed to someone with COVID-19 in past 14 days?: No Do you have a sore throat?: No Do you have a cough?: No Do you have any weakness?: No Do you have any diarrhea?: Yes Are you experiencing any unusual bleeding?: No Do you have any muscle aches/pain?: No Do you have any abdominal pain?: No Are you experiencing loss of taste or smell?: No Other Medical History Have you received the Flu Vaccine for this season: No Have you received the Pneumonia Vaccine: Yes ROS Obtained: Yes Systems reviewed as appropriate & no additional complaints except as documented Per HPI Physical Exam General General appearance: alert and in no apparent distress Head Head exam: atraumatic and normocephalic Eye Eye exam: Present PERRL and EOMI ENT ENT exam: Present mucous membranes moist Neck Neck exam: Present normal inspection and full ROM Chest Chest inspection: Present symmetric chest wall rise Respiratory Respiratory exam: Present normal lung sounds bilaterally and other (When he first got to the stretcher his SpO2 was only 88 with a good waveform but he quickly improved to 95% on room air.); Absent respiratory distress, wheezes or stridor Cardiovascular Cardiovascular exam: Present regular rate and normal rhythm Abdominal Exam Abdominal exam: Present soft, tenderness (Diffuse, mild) and guarding; Absent distention, rebound or rigidity Extremities Exam Extremities exam: Present full ROM; Absent edema Neurological Exam Neurological exam: Present alert and oriented X3; Absent motor sensory deficit Psychiatric Psychiatric exam: Present normal affect and normal mood Skin Skin exam: Present warm and dry Medical Decision Making Medical Records Medical records reviewed: Yes I reviewed the patient's medical records. Screening: Per USPSTF and CDC recommendations, given the prevalence of disease in our region, it is our hospital?s policy to screen for HIV and viral Hepatitis for all patients aged 18 and over and those with ongoing risk factors. MR Comment: Per HPI [place] Inquiry Pt receiving controlled substance: No Vital Signs: 10/15/25 00:37 10/15/25 00:38 10/15/25 01:00 Temperature 99.1 F Temperature Source Oral Pulse Rate 123 H 110 H Pulse Rate [Right Radial] 56 L Respiratory Rate 20 Blood Pressure 176/93 H 150/81 H Blood Pressure [Right Arm] 176/93 H Blood Pressure Mean 111 104 Blood Pressure Mean [Right Arm] 120 Blood Pressure Source [Right Arm] Automatic Cuff Blood Pressure Position [Right Arm] Sitting 02 Sat by Pulse Oximetry 94 L 95 94 L Oxygen Delivery Method Room Air Lab Data Lab Results 10/15/25 00:39: WBC 2.8 L, RBC 4.71, Hgb 11.4 L, Hct 37.2 L, MCV 79.0 L, MCH 24.2 L, MCHC 30.6 L, RDW 22.3 H, Plt Count 320, MPV 9.4, Neut % (Auto) 75.7, Lymph % (Auto) 16.8, [place] % (Auto) 1.8, Eos % (Auto) 0.7, Baso % (Auto) 0.7, Neut # (Auto) 2.1, Lymph # (Auto) 0.5 L, [place] # (Auto) 0.1, Eos # (Auto) 0.0, Baso # (Auto) 0.0, Total Counted 100, Neutrophils % (Manual) 69, Lymphocytes % (Manual) 23, Atypical Lymphs % 8, Platelet Estimate Not Reportable, RBC Morphology Not Reportable, PT 10.0 L, INR 0.89 L, Sodium 141, Potassium 3.8, Chloride 103, Carbon Dioxide 26, Anion Gap 15.8 H, BUN 37 H, Creatinine 1.20, Estimated Creat Clear 42, Estimated GFR 59, Est GFR ( Amer) 72, Glucose 154 H, Lactate 3.3 H, Calcium 9.8, Total Bilirubin 0.7, AST 47 D, ALT 101 H, Alkaline Phosphatase 142 H, Troponin I < 0.01, Total Protein 7.2, Albumin 4.3, Globulin 2.9, Albumin/Globulin Ratio 1.5, HCV Ab ASHKAN w/Rflx PCR Qn Negative 10/15/25 00:39 10/15/25 00:39 Orders (Tests/Meds): ED MEDICATIONS Discontinued Medications Generic Name Dose Route Start Last Admin Trade Name Freq PRN Reason Stop Dose Admin Lactated Ringer's 1,000 mls @ 999 mls/hr 10/15/25 00:40 10/15/25 01:54 Lactated Ringer's 1000 Ml Bag IV 10/15/25 01:40 Infused .Q1H1M ONE Infusion Iopamidol 80 ml 10/15/25 01:38 10/15/25 01:39 Iopamidol-370 (76%);100ml Bottle IV 10/15/25 01:39 80 ml ONCE ONE Administration Ondansetron HCl 4 mg 10/15/25 00:40 10/15/25 00:53 Ondansetron 4mg/2ml Vial IV 10/15/25 00:41 4 mg ONCE ONE Administration Sodium Chloride 50 ml 10/15/25 01:38 10/15/25 01:39 0.9 % Sodium Chloride 50 Ml Vial IV 10/15/25 01:39 50 ml ONCE ONE Administration Sodium Chloride 10 ml 10/15/25 01:38 10/15/25 01:39 Sodium Chloride 0.9% 10ml Syr (Rad Only) IV 10/15/25 01:39 10 ml ONCE ONE Administration ORDERS Category Date Time Status CT angio abdomen pelvis Stat Cat Scan 10/15/25 00:[address] angio chest - dissection Stat Cat Scan 10/15/25 00:40 Completed CBC w/Auto Diff [Complete Blood Count Auto Diff] Stat Lab 10/15/25 00:39 Completed CMP [Comprehensive Metabolic Panel] Stat Lab 10/15/25 00:39 Completed Diarrhea 23 Panel, PCR Stat Lab 10/15/25 02:07 Ordered Full Resp Panel w/COVID ([facility]) Routine Lab 10/15/25 00:46 Received HIV Combo Routine Lab 10/15/25 00:39 Received Hepatitis C Ab Qual. W/ RFX Routine Lab 10/15/25 00:39 Completed Lactic Acid Stat Lab 10/15/25 00:39 Completed PT INR [Prothrombin Time INR] Stat Lab 10/15/25 00:39 Completed Trop I [Troponin I] Stat Lab 10/15/25 00:39 Completed Troponin I Q3H Lab 10/15/25 03:45 Ordered Troponin I Q3H Lab 10/15/25 06:45 Ordered Urinalysis and Microscopic Stat Lab 10/15/25 00:42 Ordered ECG Request Stat Y 10/15/25 00:40 Ordered Medical Decision Narrative: In summary, this 75-year-old male with comorbidities described in the HPI presents to the emergency department today with abdominal pain, nausea, and, diarrhea starting approximately 6 hours ago in the setting of having EGD performed at this facility approximately 18 hours ago. On initial evaluation patient is hypertensive but otherwise hemodynamically stable, afebrile, GCS 15, hard of hearing but no other neurologic deficits, this is at baseline. Patient has benign cardiopulmonary exam, his oxygenation quickly improved on room air after resting briefly in the stretcher, no adventitious sounds, abdominal exam with diffuse mild tenderness and mild guarding, remainder of exam unremarkable. Differential diagnosis includes but is not limited to ACS, perforation, mediastinitis, peritoneal free air, viral syndrome, electrolyte abnormality, dehydration, kidney dysfunction, pneumonia, interstitial lung disease, among others. Based on these concerns, I ordered hematologic and serum labs, urinalysis, viral swab, cardiac workup. ECG personally interpreted demonstrates sinus tachycardia, rate 111, left axis deviation, normal SC and QTc, no STEMI. Patient received IV fluids, Zofran for treatment. Labs personally reviewed demonstrate leukopenia which is a historic problem for this patient and not significantly changed from prior, mild anemia nonactionable and not significantly changed from 2 days ago, normal platelets, PT/INR nonactionable, CMP with prerenal azotemia glucose appears to be a pre-existing problem for him, lactic acidosis lactate 3.3 consistent with dehydration and tachycardia, LFTs including alkaline phosphatase slightly elevated but stable from 2 days ago, troponin undetectably low less than 0.01, additional labs including stool study, viral swab, urine studies pending. CTA chest personally interpreted does not demonstrate dissection or acute intrathoracic abnormality however there are chronic findings, see radiology read for final interpretation. CTA abdomen pelvis demonstrates numerous findings. He does have numerous gallstones but does not have focal right upper quadrant tenderness, no significant transaminitis, I do not believe this correlates clinically. There does not appear to be mesenteric artery occlusion. See radiology read for final interpretation which includes findings of infrarenal aortic aneurysm, ostial stenosis of the celiac artery, evidence of duodenitis, small left proximal ureteral stone with hydronephrosis however review of records demonstrates this has been present since at least April of this year in the same position and same size. Patient has no flank pain, no CVA tenderness. I do not believe this correlates clinically. Additional findings include concerns for adrenal hyperplasia, moderate proximal stenosis of the SMA which also appears chronic. I do not believe patient has acute surgical pathology, after receiving IV fluids he is still tachycardic with rate in the 110s but he has not had additional emesis and is asking for fluids. Tolerating oral intake. Resting more comfortably. I discussed admission to the hospital with patient and at bedside with which they are agreeable. We discussed the results of his labs and imaging and they are understanding of the multiple things going on. I discussed this case with the hospitalist, Elana, and after reviewing his labs, imaging, current clinical status, and chronic findings that have previously been appreciated on imaging she graciously accepted the patient for admission. He was admitted in stable condition. Critical Care Critical Care Time Critical Care Time: No
[2025-10-15 01:20] LABS: Total Cells Counted 100
[2025-10-15 01:31] LABS: Troponin I < 0.01 ng/ml (0.00-0.034)
[2025-10-15] MEDS: IOPAMIDOL-370 (76%);100ML BOTTLE 80 ML IV (01:39)
[2025-10-15] MEDS: SODIUM CHLORIDE 0.9% 10ML SYR (RAD ONLY) 10 ML IV (01:39)
[2025-10-15] MEDS: 0.9 % SODIUM CHLORIDE 50 ML VIAL IV (01:39)
[2025-10-15 01:59] LABS: Hepatitis C Ab Qual. W/ RFX NEGATIVE (Negative)
[2025-10-15 02:12] LABS: Adenovirus F 40/41, stool Not Detected (NotDetected); Clostridium Difficile A/B, PCR Not Detected (NotDetected); Cyclospora Cayetanesis Not Detected (NotDetected); Plesimonas Shigalloides, PCR Not Detected (NotDetected); Salmonella, PCR Not Detected (NotDetected); Shiga-like toxin E coli Not Detected (NotDetected); Shigella Enterovasive E coli Not Detected (NotDetected); Vibrio, PCR Not Detected (NotDetected); Yersinia Entercolitica, PCR Not Detected (NotDetected)
[2025-10-15] MEDS: PROMETHAZINE HCL 25MG/ML 1ML VIAL 12.5 MG IV ×4 (02:42→22:02)
[2025-10-15] MEDS: KETOROLAC 15MG/ML VIAL 15 MG IV ×3 (02:43→22:02)
--- NOTE | 2025-10-15 03:06 | PC.NURSE ---
Patient arrived to floor via wheelchair from ED at 02:56.
--- NOTE | 2025-10-15 03:08 | P.HP_ITS ---
<Statement entered by Francesco Carvajal MD - 10/15/25 07:17> Rounded on patient after nurse practitioner. Personally examined and interviewed patient. Agree with exam findings and care plan as documented. History of Present Illness *Admission Date: 10/15/25 *Reason for visit:: Nausea vomiting diarrhea *History of present illness: This is a 75-year-old male with a past medical history of portal hypertension, chronic left-sided hydronephrosis, hypertension, DM 2, hemochromatosis, granulomatous hepatitis, widespread atherosclerotic, chronic leukopenia disease who presents to the emergency department today with nausea vomiting diarrhea. He underwent EGD today on 10/14/[address] Crawford for evaluation of portal hypertension and varices. He had an uneventful procedure with EGD noting grade a reflux esophagitis as well as very small sliding hiatal hernia with reactive gastropathy of the antrum. Patient is extremely hard of hearing without cochlear implant in place so provides collateral. His said they ate lunch and dinner this evening without event but patient developed nausea vomiting diarrhea shortly after dinner. Patient endorses mild mid lower diffuse abdominal pain. Also reports chill. Denies any BRBPR or melena. Denies any hematochezia. He denies dysuria, denies groin pain. Denies flank pain. Emergency Department workup notable for sinus tachycardia with low-grade temp of 99.1. Labs notable for white blood cell count of 2.8. Creatinine of 1.[address] respiratory [address] panel negative. CT imaging notable for pleural thickening of the chest likely secondary to granulomatosis exposure. CT abdomen pelvis notable for soft plaque within the moderate proximal stenosis of the SMA, (noted to be 80% on prior CT abdomen pelvis imaging), diffuse bowel wall thickening of the 2nd and 3rd portion of the duodenum suspicious for duodenitis. 2 mm calculi within the left ureter with moderate hydronephrosis (noted on previous CTs). He received multiple doses of antiemetics in the emergency department with brief symptomatic relief but persistent diarrhea. Given concern for acute viral versus bacterial infection given fever and nausea vomiting diarrhea status post EGD it was felt he would benefit from hospitalization He is admitted to hospital service at this time [facility] Disclaimer: The information contained in this section may have been updated after the patient was seen, as this information can be updated by other users. Medical History Mediastinal lymphadenopathy Mural thrombus of heart Aortic mural thrombus Immunosuppressed status Insomnia Elevated troponin Respiratory failure Colon polyps Melena Community acquired pneumonia On anticoagulant therapy History of atrial flutter Supraventricular tachycardia Palpitations Atrial fibrillation and flutter Atrial flutter Atrial flutter with rapid ventricular response Afib Ex-smoker for more than 1 year Hyperlipidemia associated with type 2 diabetes mellitus Atrial fibrillation with rapid ventricular response Fibrosis of lung Fatigue Steroid dependence Hemochromatosis Hemochromatosis Chronic respiratory failure with hypoxia History of smoking 30 or more pack years ILD (interstitial lung disease) Dyspnea on exertion Cataract Granuloma annulare Diastolic dysfunction Encounter for monitoring flecainide therapy PAF (paroxysmal atrial fibrillation) Surgical History History of colonoscopy History of appendectomy Uses cochlear implant Hx of tonsillectomy H/O left knee surgery Family History Other Cancer Family history of diabetes mellitus type II Heart disease Stroke Social History Smoking Status: Former smoker tobacco type: cigarettes packs per day: 1 pack- years: 50 smoking status stop date: 2004 how long ago did patient quit smokin alcohol intake: never substance use type: denies use current occupational status: retired Travel in the last 8 weeks?: None household members: spouse housing: house 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 [employer] current occupational exposures/hazards: Yes ([employer]) caffeine: Yes Have you lived/traveled outside [place] in past 30 days?: No Contact w/someone who lives/traveled outside US past 30 days?: No Exposure to someone with infectious disease in past 14 days?: No Do you have a fever (greater than 100.4 F or 38 C)?: No Have you tested positive for COVID-19?: No Exposed to someone with COVID-19 in past 14 days?: No Do you have a sore throat?: No Do you have a cough?: No Do you have any weakness?: No Do you have any diarrhea?: Yes Are you experiencing any unusual bleeding?: No Do you have any muscle aches/pain?: No Do you have any abdominal pain?: No Are you experiencing loss of taste or smell?: No Other Medical History Have you received the Flu Vaccine for this season: No Have you received the Pneumonia Vaccine: Yes Review of Systems Review of Systems Review of systems:: pertinent systems reviewed and negative unless documented below Review of systems (narrative): Negative except for HPI Meds Home Medications and Allergies Home Medications ?Medication ?Instructions ?Recorded ?Confirmed ?Type metformin 500 mg tablet 500 mg PO BID 01/02/1910/14 History insulin lispro protamine-lispro 26 unit SQ DIRECTED Diabetes 01/23/24 10/14/25 History 100 unit/mL (75-25) subcutaneous pen empagliflozin 10 mg tablet 10 mg PO DAILY 02/21/2408/29 History (Jardiance) mirtazapine 15 mg tablet (Remeron) 15 mg PO DAILY 09/0510/14/25 History itraconazole 100 mg capsule 200 mg PO BID 02/17/2508/29 History ipratropium 0.5 mg-albuterol 3 mg 3 ml inhalation Q8H PRN Asthma 04/13/25 10/14/25 History (2.5 mg base)/3 mL nebulization soln blood-glucose sensor (FreeStyle #1 ea 08/13/25 5 History Leroy 3 Plus Sensor device) budesonide 3 mg 9 mg (3 x 3 mg) PO .At bedti me #90 08/18/25 10/14/25 Rx capsule,delayed,extended release ea cholecalciferol (vitamin D3) 25 2,000 unit PO DAILY 10/14/25 History mcg (1,000 unit) capsule levothyroxine 50 mcg tablet 75 mcg PO DAILY 08/18/25 1 12/15/24 History mycophenolate mofetil 500 mg tablet 1,500 mg (3 x 500 mg) PO ONCE #90 08/18/25 10/14/25 Rx tabs voriconazole 200 mg tablet 200 mg PO DAILY 08/26/25 History warfarin 5 mg tablet See Rx Instructions .Route 1 10/14/25 Rx .COMPLEX #75 tabs iron sucrose 200 mg iron/10 mL 200 mg (10 mL) IV Q3D 5 doses 09/07/25 10/14/25 Rx intravenous solution (Venofer) ursodiol 500 mg tablet See Rx Instructions .Route 1 11/24/24 10/14/25 Rx .COMPLEX #90 tabs enoxaparin 60 mg/0.6 mL 60 mg (0.6 mL) SQ Q12H 10 da ys #12 10/06/25 10/14/25 Rx subcutaneous syringe (Lovenox) mL New Prescriptions to Start Prescriptions: Allergies Allergy/AdvReac Type Severity Reaction Status Date / Time cephalexin (From Keflex) Allergy Rash Verified 10/14/25 09:54 ragweed pollen Allergy Other Verified 10/14/25 09:54 Exam Data for Last 24 hours Vital signs and Labs for Last 24 Hours: Temp Pulse Resp BP Pulse Ox O2 Del Method 99.1 F 117 H 18 135/82 94 L Room Air 10/15/25 02:34 10/15/25 02:34 10/15/25 02:34 10/15/25 02:34 10/15/25 02:00 10/15/25 02:34 Laboratory Results - last 24 hr 10/15/25 00:39: WBC 2.8 L, RBC 4.71, Hgb 11.4 L, Hct 37.2 L, MCV 79.0 L, MCH 24.2 L, MCHC 30.6 L, RDW 22.3 H, Plt Count 320, MPV 9.4, Neut % (Auto) 75.7, Lymph % (Auto) 16.8, Da[place]hin % (Auto) 1.8, Eos % (Auto) 0.7, Baso % (Auto) 0.7, Neut # (Auto) 2.1, Lymph # (Auto) 0.5 L, Da[place]hin # (Auto) 0.1, Eos # (Auto) 0.0, Baso # (Auto) 0.0, Total Counted 100, Neutrophils % (Manual) 69, Lymphocytes % (Manual) 23, Atypical Lymphs % 8, Platelet Estimate Not Reportable, RBC Morphology Not Reportable, PT 10.0 L, INR 0.89 L, Sodium 141, Potassium 3.8, Chloride 103, Carbon Dioxide 26, Anion Gap 15.8 H, BUN 37 H, Creatinine 1.20, Estimated Creat Clear 42, Estimated GFR 59, Est GFR ( Amer) 72, Glucose 154 H, Lactate 3.3 H, Calcium 9.8, Total Bilirubin 0.7, AST 47 D, ALT 101 H, Alkaline Phosphatase 142 H, Troponin I < 0.01, Total Protein 7.2, Albumin 4.3, Globulin 2.9, Albumin/Globulin Ratio 1.5, HCV Ab ASHKAN w/Rflx PCR Qn Negative 10/15/25 00:46: Chlamy pneumoniae PCR Not detected, Adenovirus (PCR) Not detected, B. pertussis DNA (PCR) Not detected, Coronavirus OC43 (PCR) Not detected, Coronavirus HKU1 (PCR) Not detected, Coronavirus 229E (PCR) Not detected, SARS-CoV-2 (PCR) Not detected, Coronavirus NL63 (PCR) Not detected, Human Metapneumovir PCR Not detected, Influenza A (H1) PCR Not detected, Influ A (H1N1/09) PCR Not detected, Influenza A (H3) PCR Not detected, Influenza Type A (PCR) Not detected, Influenza Type B (PCR) Not detected, M. pneumoniae (PCR) Not detected, Parainfluenza 1 (PCR) Not detected, Parainfluenza 2 (PCR) Not detected, Parainfluenza 3 (PCR) Not detected, Parainfluenza 4 (PCR) Not detected, RSV (PCR) Not detected, Entero/Rhino (PCR) Not detected I & O for Last 24 hours: Intake & Output 10/12/25 10/13/25 10/14/25 10/15/25 23:59 23:59 23:59 23:59 Intake Total 1000 / 1000 Balance 1000 / 1000 Weight 54.431 kg Constitutional Constitutional: no acute distress *Routine HEENT Exam Head: Present normocephalic Eye: Present EOMI and PERRL ENT: Present mucous membranes dry *Routine Neck Exam Neck: Present supple; Absent lymphadenopathy *Routine Respiratory Exam Respiratory: Present CTA bilaterally *Routine Cardiovascular Exam Cardiovascular: Present RRR *Routine Abdominal Exam Abdominal: Present soft and normoactive bowel sounds; Absent tenderness *Routine Rectal Exam Rectal:: deferred *Routine Genitalia Exam Genitalia:: deferred *Routine Extremities Exam Extremities: Absent cyanosis, clubbing or edema *Routine Skin Exam Skin: Present warm; Absent rash *Routine Neurological Exam Neurological: Present alert and oriented X3 Assessment and Plan *Assessment and plan (1) Severe sepsis without septic shock: Status: Acute Category: Medical Code(s): A41.9 - Sepsis, unspecified organism; R65.20 - Severe sepsis without septic shock (2) Nausea, vomiting, and diarrhea: Status: Acute Category: Medical Code(s): R11.2 - Nausea with vomiting, unspecified; R19.7 - Diarrhea, unspecified (3) Abdominal pain: Status: Acute Category: Medical Code(s): R10.9 - Unspecified abdominal pain (4) Duodenitis: Status: Acute Category: Medical Code(s): K29.80 - Duodenitis without bleeding (5) Portal hypertension: Status: Acute Category: Medical Code(s): K76.6 - Portal hypertension (6) Diabetes: Status: Chronic Qualifiers: Diabetes mellitus type: type 2 Diabetes mellitus mcfp insulin use: with mcfp use Diabetes mellitus complication status: without complication Qualified Code(s): E11.9 - Type 2 diabetes mellitus without complications; Z79.4 - custodial (current) use of insulin Category: Medical Code(s): E11.9 - Type 2 diabetes mellitus without complications (7) Hypertension: Status: Chronic Qualifiers: Hypertension type: essential hypertension Qualified Code(s): I10 - Essential (primary) hypertension Category: Medical Code(s): I10 - Essential (primary) hypertension Plan #Severe sepsis without septic shock Meets criteria for leukopenia, tachycardia, fever Tmax 100.5 Source: Duodenitis. Cannot rule out viral GI source. GI PCR panel pending Blood cultures obtained. 30 mL kilogram bolus initiated Lactic acid of 3.3, repeat pending Continue Zosyn for abdominal coverage #Abdominal pain #Nausea vomiting diarrhea #Duodenitis Reports pain is very low in the abdomen and intense pain happens just before diarrhea episodes. Recent EGD less than 24 hours ago. Given instrumentation and leukopenia, initiating Zosyn for duodenitis and possible postprocedure infection Lipase pending Cannot rule out viral GI source. GI PCR panel pending Antiemetics as needed Multimodal pain medication as needed After reassessment, patient is completely pain-free at this time. Mild voluntary guarding when he is in pain but otherwise soft and compressible #SMA stenosis, chronic Patient with vascular fibrotic disease throughout the abdomen. 80% stenosis noted on prior CT imaging in April. Abdomen is nontense, nonrigid. Mild voluntary guarding but when patient is not having intense pain, soft and compressible and in no distress. Low suspicion for mesenteric ischemia as CTA of the abdomen does not make mention of this On warfarin at home but has been on hold secondary to recent procedure Will need anticoagulation restart given significant atherosclerotic disease #Ureteral calculi CT imaging with 2 mm stone with hydronephrosis. Hydronephrosis and stones have been present on prior images. Patient has a longstanding history of ureteral calculi. Denies any left lower quadrant pain, no CVA tenderness. Denies any difficulty with urination. Urinalysis pending #Granulomatosis disease Continue bronchodilators
[2025-10-15 03:11] LABS: Lipase 269 U/L (23-300)
[2025-10-15 03:52] LABS: Troponin I < 0.01 ng/ml (0.00-0.034)
[2025-10-15] MEDS: 0.9 % SODIUM CHLORIDE 1000ML 500 ML 999 ML IV ×2 (04:07→07:37)
[2025-10-15] MEDS: MORPHINE 2MG/ML SYRINGE 2 MG IV (04:08)
[2025-10-15] MEDS: PIPERACILLIN/TAZO 3.375 GM in 0.9 % SODIUM CHLORIDE 50 ML IV ×4 (04:09→22:36)
[2025-10-15 04:11] LABS: POC Glucose,Bedside 188 gm/dL (70-110)
[2025-10-15 04:28] LABS: Reflex Lactic Add Lactic Reflex
--- NOTE | 2025-10-15 04:43 | PC.NURSE ---
[id number] Pt vomited the flomax and about a cup of H2o up at that time. Phoned Cornelia Walker RN SECURITY, she ordered strict NPO and Phenergan 12.5 mg in a 25ml Bag of NS over 15 minutes. DAVID STEWART RN
[2025-10-15] MEDS: 0.9 % SODIUM CHLORIDE 1000ML 1,000 ML 100 ML IV ×2 (04:53→09:10)
[2025-10-15] MEDS: ACETAMINOPHEN 1,000MG/100ML VIAL 1000 MG IV (06:40)
[2025-10-15 06:44] LABS: Hematocrit 33.8 % (42.0-52.0); Immature Granulocytes % 1.7 %; Mean Corpuscular HGB Conc 29.9 g/dL (31.8-35.4); Mean Corpuscular Hemoglobin 23.9 pg (27.0-31.2); Mean Corpuscular Volume 80.1 fl (80-94); Nucleated Red Blood Cells % 3.4 %; Platelet Count 244 K/mm3 (142-424); Red Blood Count 4.22 M/mm3 (4.60-6.20); Red Cell Distribution Width-SD 62.8 fL
[2025-10-15 06:51] LABS: Lactic Acid Follow Up (RFLX 1) 3.8 mmol/L (0.7-2.1)
[2025-10-15 07:07] LABS: Chloride 105 mmol/L (98-107)
[2025-10-15] MEDS: SODIUM CHLORIDE 0.9% 25ML BAG 25 ML IV ×2 (07:07→22:03)
[2025-10-15 07:10] LABS: Blood Urea Nitrogen 31 mg/dl (9-20); Creatinine Clearance Estimated 45 mL/min (50-200); Creatinine,Serum 1.20 mg/dl (0.66-1.25); Estimated Glomerular Filt Rate 59 ml/min (>60); GFR (African American) 72 ML/MIN (>60)
[2025-10-15 07:11] LABS: Carbon Dioxide 27 mmol/L (22.0-30.0); HDL Cholesterol 67 mg/dl (40-60); Magnesium 1.9 mg/dl (1.6-2.3)
[2025-10-15 07:18] LABS: White Blood Count 1.2 K/mm3 (4.8-10.8)
[2025-10-15 07:20] LABS: POC Glucose,Bedside 167 gm/dL (70-110)
[2025-10-15 07:20] LABS: Troponin I 0.02 ng/ml (0.00-0.034)
[2025-10-15 07:24] LABS: Hemoglobin 10.0 g/dL (14.1-18.0)
[2025-10-15 07:48] LABS: Anion Gap 14.9 mEq/L (5-15); Sodium 144 mmol/L (136-145)
[2025-10-15 07:51] LABS: Calcium 8.3 mg/dl (8.4-10.2); Cholesterol 249 mg/dl (140-200); Glucose 159 mg/dl (74-100); Triglycerides 229 mg/dl (30-150)
[2025-10-15 08:04] LABS: Potassium 2.9 mmoL/L (3.5-5.1)
--- NOTE | 2025-10-15 08:25 | PC.NURSE ---
PT ARRIVED TO THE UNIT WITH RADIO HOST
[2025-10-15] MEDS: NOREPINEPHRINE BITARTRATE/D5W 8 MG/250 ML PLAST..BAG 15 MG IV (08:30)
[2025-10-15 08:32] LABS: Reflex Lactic (2 hrs) Add Lactic Reflex
--- NOTE | 2025-10-15 08:40 | PC.NURSE ---
DURING MORNING ROUNDS PT WAS VERY RESTLESS PALE AND VOICED THAT HE DID NOT FEEL WELL AT ALL. CRITICAL WBC AND POTASSIUM REPORTED TO HOSPITALIST. S.TACH ON TELEMETRY 115. MANUAL BP 64/36. JONO AND AT BEDSIDE. NeryAftabMARIBEL NOTIFIED . ORDERED FOR PT TO TRANSFERRED TO ICU TO BE STARTED ON A LEVOPHED DRIP. GI CONSULT AND TYPE AND SCREEN ORDERED. REPORT CALLED TO SUZANNE FINNEY. PT WAS TRANSPORTED TO ICU.
[2025-10-15] MEDS: METHYLPREDNISOLONE SOD SUCC 125MG VIAL 125 MG IV (08:43)
--- NOTE | 2025-10-15 08:57 | EXP.ACUTE.PN ---
Subjective *Date: 10/15/25 *Time: 08:57 Interval history: Patient not doing well this am. He can hardly answer questions and is very weak. Continues with vomiting. BP 60/30 with fluid bolus running. Medical Exam Vital signs and Labs for Last 24 Hours: Vital Signs Temp Pulse Pulse Resp BP BP Pulse Ox 10/15/25 08:46 92 L 10/15/25 08:00 98.6 F 111 H 28 H 64/36 L 92 L 10/15/25 07:00 10/15/25 06:40 101.3 F H 10/15/25 05:00 10/15/25 04:00 113 H 10/15/25 03:07 98.6 F 113 H 18 114/53 L 93 L 10/15/25 03:00 10/15/25 03:00 10/15/25 02:42 112 H 10/15/25 02:34 99.1 F 117 H 18 135/82 10/15/25 02:00 100.5 F H 121 H 135/72 94 L 10/15/25 01:00 110 H 150/81 H 94 L 10/15/25 00:38 99.1 F 56 L 20 176/93 H 95 10/15/25 00:37 123 H 176/93 H 94 L O2 Del Method 10/15/25 08:46 Room Air 10/15/25 08:00 Room Air 10/15/25 07:00 Room Air 10/15/25 06:40 10/15/25 05:00 Room Air 10/15/25 04:00 10/15/25 03:07 Room Air 10/15/25 03:00 Room Air 10/15/25 03:00 Room Air 10/15/25 02:42 10/15/25 02:34 Room Air 10/15/25 02:00 10/15/25 01:00 10/15/25 00:38 Room Air 10/15/25 00:37 Intake and Output 10/14/25 10/15/25 10/15/25 19:59 03:59 11:59 Intake Total 1000 2056.125 1057.125 / 2056.125 Output Total 225 / 225 Balance 775 / 0199.821 3240.125 / 1832.125 Intake: Intake, Total IV Amount 1000 / 2056.125 1057.125 / 2057.125 0.9 % Sodium Chloride 1000ML 500 / 500 500 ml @ 999 mls/hr IV .Q31M ONE Rx#:[id number] 0.9 % Sodium Chloride 1000ML 500 / 500 500 ml @ 999 mls/hr IV .Q31M ONE Rx#:[id number] Lactated Ringers 1000ML 1,000 1000 / 1000 ml @ 999 mls/hr IV .Q1H1M ONE Rx#:[id number] Norepinephrine Bitartrate/D5w 8 7.125 / 7.125 mg In 250 ml @ 8 MCG/MIN 15 mls/hr IV .[id number] MARLEN Rx#: [id number] Piperacillin/Tazo 3.375 gm In 0 50 / 50 .9 % Sodium Chloride 50 ml @ 100 mls/hr IV Q8H [facility] Rx#: [id number] Output: Output, Urine Amount 225 / 225 Other: Weight 129 lb 4.8 oz 129 lb 4.782 oz Patient Weight 10/15/25 11:59 Weight 129 lb 4.782 oz Laboratory Results - last 24 hr 10/15/25 00:39: WBC 2.8 L, RBC 4.71, Hgb 11.4 L, Hct 37.2 L, MCV 79.0 L, MCH 24.2 L, MCHC 30.6 L, RDW 22.3 H, Plt Count 320, MPV 9.4, Neut % (Auto) 75.7, Lymph % (Auto) 16.8, [place] % (Auto) 1.8, Eos % (Auto) 0.7, Baso % (Auto) 0.7, Neut # (Auto) 2.1, Lymph # (Auto) 0.5 L, [place] # (Auto) 0.1, Eos # (Auto) 0.0, Baso # (Auto) 0.0, Total Counted 100, Neutrophils % (Manual) 69, Lymphocytes % (Manual) 23, Atypical Lymphs % 8, Platelet Estimate Not Reportable, RBC Morphology Not Reportable, PT 10.0 L, INR 0.89 L, Sodium 141, Potassium 3.8, Chloride 103, Carbon Dioxide 26, Anion Gap 15.8 H, BUN 37 H, Creatinine 1.20, Estimated Creat Clear 42, Estimated GFR 59, Est GFR ( Amer) 72, Glucose 154 H, Lactate 3.3 H, Calcium 9.8, Total Bilirubin 0.7, AST 47 D, ALT 101 H, Alkaline Phosphatase 142 H, Troponin I < 0.01, Total Protein 7.2, Albumin 4.3, Globulin 2.9, Albumin/Globulin Ratio 1.5, Lipase 269, HCV Ab ASHKAN w/Rflx PCR Qn Negative, HIV Ag/Ab Combo Qual Negative 10/15/25 00:46: Chlamy pneumoniae PCR Not detected, Adenovirus (PCR) Not detected, B. pertussis DNA (PCR) Not detected, Coronavirus OC43 (PCR) Not detected, Coronavirus HKU1 (PCR) Not detected, Coronavirus 229E (PCR) Not detected, SARS-CoV-2 (PCR) Not detected, Coronavirus NL63 (PCR) Not detected, Human Metapneumovir PCR Not detected, Influenza A (H1) PCR Not detected, Influ A (H1N1/09) PCR Not detected, Influenza A (H3) PCR Not detected, Influenza Type A (PCR) Not detected, Influenza Type B (PCR) Not detected, M. pneumoniae (PCR) Not detected, Parainfluenza 1 (PCR) Not detected, Parainfluenza 2 (PCR) Not detected, Parainfluenza 3 (PCR) Not detected, Parainfluenza 4 (PCR) Not detected, RSV (PCR) Not detected, Entero/Rhino (PCR) Not detected 10/15/25 00:47: Stl C. cayetanensis PCR Not detected, Stool Rotavirus (PCR) Not detected, Stl Adenov F 40/41 PCR Not detected, Stool Astrovirus (PCR) Not detected, Stool Campylobacter PCR Not detected, Stl C.difficile Tox PCR Not detected, Stool Cryptosporidium PCR Not detected, Stl E.coli Shiga Tox PCR Not detected, Stool E coli O157 PCR Not detected, Stl Enterotoxigenic E PCR Not detected, Stool EPEC (PCR) Not detected, Stool EAEC (PCR) Not detected, Stl E. histolytica PCR Not detected, Stool Giardia Lamblia PCR Not detected, Stool Salmonella PCR Not detected, Stool Sapovirus (PCR) Not detected, Stl P. shigelloides PCR Not detected, Stl Shigella/EIEC PCR Not detected, St Y.enterocolitica PCR Not detected, Stool Vibrio (PCR) Not detected, Stl Vibrio cholerae PCR Not detected, Stl Norovirus GI/GII PCR Not detected 10/15/25 03:18: Troponin I < 0.01 10/15/25 04:04: POC Glucose 188 H 10/15/25 06:18: WBC 1.2 L* D, RBC 4.22 L, Hgb 10.0 L D, Hct 33.8 L, MCV 80.1, MCH 23.9 L, MCHC 29.9 L, RDW 22.2 H, Plt Count 244, MPV 10.0, Neut % (Auto) 67.0, Lymph % (Auto) 24.6, R[place] % (Auto) 4.2, Eos % (Auto) 1.7, Baso % (Auto) 0.8, Neut # (Auto) 0.8 L*, Lymph # (Auto) 0.3 L, [place] # (Auto) 0.1, Eos # (Auto) 0.0, Baso # (Auto) 0.0, Sodium 144, Potassium 2.9 L* D, Chloride 105, Carbon Dioxide 27, Anion Gap 14.9, BUN 31 H, Creatinine 1.20, Estimated Creat Clear 45, Estimated GFR 59, Est GFR ( Amer) 72, Glucose 159 H, Lactate 3.8 H, Calcium 8.3 L, Magnesium 1.9, Troponin I 0.02, Triglycerides 229 H, Cholesterol 249 H, LDL Cholesterol Direct 149.18 H, VLDL Cholesterol 46 H, HDL Cholesterol 67 H, Cholesterol/HDL Ratio 3.7 H 10/15/25 06:44: POC Glucose 167 H I & O for Labs for Last 24 Hours: Intake & Output 10/12/25 10/13/25 10/14/25 10/15/25 11:59 11:59 11:59 11:59 Intake Total 2057.125 / 2057.125 Output Total 225 / 225 Balance 1832.125 / 1832.125 Weight 129 lb 4.782 oz Constitutional: Present moderate distress ENT: Present mucous membranes dry Respiratory: Present decreased breath sounds and CTA bilaterally Cardiac: Present Regular Rhythm and Tachycardia GI: Present soft and tenderness (diffuse) Extremities: Absent edema Skin: Present intact Neuro: Present awake Assessment and Plan *Assessment and plan (1) Severe sepsis without septic shock: Status: Acute Category: Medical Code(s): A41.9 - Sepsis, unspecified organism; R65.20 - Severe sepsis without septic shock (2) Nausea, vomiting, and diarrhea: Status: Acute Category: Medical Code(s): R11.2 - Nausea with vomiting, unspecified; R19.7 - Diarrhea, unspecified (3) Abdominal pain: Status: Acute Category: Medical Code(s): R10.9 - Unspecified abdominal pain (4) Duodenitis: Status: Acute Category: Medical Code(s): K29.80 - Duodenitis without bleeding (5) Portal hypertension: Status: Acute Category: Medical Code(s): K76.6 - Portal hypertension (6) Diabetes: Status: Chronic Qualifiers: Diabetes mellitus type: type 2 Diabetes mellitus 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 insulin use: with intermediate use Diabetes mellitus complication status: without complication Qualified Code(s): E11.9 - Type 2 diabetes mellitus without complications; Z79.4 - USP (current) use of insulin Category: Medical Code(s): E11.9 - Type 2 diabetes mellitus without complications (7) Hypertension: Status: Chronic Qualifiers: Hypertension type: essential hypertension Qualified Code(s): I10 - Essential (primary) hypertension Category: Medical Code(s): I10 - Essential (primary) hypertension (8) Hypotension: Status: Acute Category: Medical Code(s): I95.9 - Hypotension, unspecified Plan Stool panel was negative. Will continue Zosyn for abdominal coverage. BP is low. Will start on a levophed drip and move patient to the unit. Will consult GI and give 125mg of solumedrol for adrenal insufficiency.
[2025-10-15 09:03] LABS: Hematocrit 33.8 % (42.0-52.0); Hemoglobin 9.7 g/dL (14.1-18.0)
--- NOTE | 2025-10-15 09:05 | PC.NURSE ---
ASKED MD HERNANDEZ WHAT HE WANTED TO HAVE BLOOD PRESSURES TITRATED TO. STATED THAT HE WANTS A SYSTOLIC OF GREATER THAN 90. WAS ALSO ASKED ABOUT ADDING 2L NASAL CANNULA FOR COMFORT AND IS OK WITH O2.
--- NOTE | 2025-10-15 09:10 | PC.NURSE ---
Dr. Almanzar speaking with Dr. Crawford at this time.
[2025-10-15 09:11] LABS: Lactic Acid Follow up (RFLX 2) 4.7 mmol/L (0.7-2.1)
--- NOTE | 2025-10-15 09:18 | [facility].PHAAMS2 ---
- Antimicrobial Stewardship Review culture & sensitivity review Stewardship interventions: culture & sensitivity review, reviewed - no change Comments: PATIENT ON ZOSYN FOR SEPSIS/POST PROCEDURAL DUODENITIS, BLOOD CX PENDING.
[2025-10-15 09:48] LABS: Hematocrit 35.8 % (42.0-52.0); Hemoglobin 10.1 g/dL (14.1-18.0)
--- NOTE | 2025-10-15 09:52 | EXP.PULM.CON ---
History of Present Illness History of present illness: Mr. 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 [facility] Disclaimer: The information contained in this section may have been updated after the patient was seen, as this information can be updated by other users. Medical History (Updated 10/15/25 @ 11:03 by Ta Cantrell MD) Acute and chronic respiratory failure with hypoxia Mediastinal lymphadenopathy Mural thrombus of heart Aortic mural thrombus Immunosuppressed status Insomnia Elevated troponin Respiratory failure Colon polyps Melena Community acquired pneumonia On anticoagulant therapy History of atrial flutter Supraventricular tachycardia Palpitations Atrial fibrillation and flutter Atrial flutter Atrial flutter with rapid ventricular response Afib Ex-smoker for more than 1 year Hyperlipidemia associated with type 2 diabetes mellitus Atrial fibrillation with rapid ventricular response Fibrosis of lung Fatigue Steroid dependence Hemochromatosis Hemochromatosis Chronic respiratory failure with hypoxia History of smoking 30 or more pack years ILD (interstitial lung disease) Dyspnea on exertion Cataract Granuloma annulare Diastolic dysfunction Encounter for monitoring flecainide therapy PAF (paroxysmal atrial fibrillation) Surgical History History of colonoscopy History of appendectomy Uses cochlear implant Hx of tonsillectomy H/O left knee surgery Family History Other Cancer Family history of diabetes mellitus type II Heart disease Stroke Social History (Updated 10/15/25 @ 03:43 by Alia Newell RN) Smoking Status: Former smoker tobacco type: cigarettes packs per day: 1 pack-years: 50 smoking status stop date: 2004 how long ago did patient quit smokin alcohol intake: never substance use type: denies use current occupational status: retired Travel in the last 8 weeks?: None household members: spouse housing: house 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 [employer] current occupational exposures/hazards: Yes ([employer]) caffeine: Yes Have you lived/traveled outside [place] in past 30 days?: No Contact w/someone who lives/traveled outside US past 30 days?: No Exposure to someone with infectious disease in past 14 days?: No Do you have a fever (greater than 100.4 F or 38 C)?: No Have you tested positive for COVID-19?: No Exposed to someone with COVID-19 in past 14 days?: No Do you have a sore throat?: No Do you have a cough?: No Do you have any weakness?: No Do you have any diarrhea?: Yes Are you experiencing any unusual bleeding?: No Do you have any muscle aches/pain?: No Do you have any abdominal pain?: No Are you experiencing loss of taste or smell?: No Review of Systems Constitutional Constitutional: Reports anorexia, Reports body ache(s) and Reports fatigue Eyes Eyes: Denies eye discharge, Denies dry eyes, Denies irritation and Denies itchy eyes ENT Ears, Nose, Mouth, and Throat: Denies epistaxis, Denies facial pain, Denies lip swelling and Denies throat swelling *Cardiovascular Cardiovascular: Reports dyspnea and Reports dyspnea on exertion *Respiratory Respiratory: Reports chest congestion, Reports cough, Reports dyspnea, Reports dyspnea on exertion, Reports excessive phlegm production and Reports wheezing *Gastrointestinal Gastrointestinal: Denies abdominal pain, Denies belching, Reports bloating and Denies cramping Comments: Nausea vomiting and abdominal pain *Musculoskeletal Musculoskeletal: Reports back pain, Reports myalgias and Reports other (No small joint swelling or Pain) Psychiatric Psychiatric: Denies homicidal ideation and Denies suicidal ideation Endocrine Endocrine: Reports fatigue and Denies heat intolerance Hematologic/Lymphatic Hematologic/Lymphatic: Denies easy bleeding and Denies lymphadenopathy Allergic/Immunologic Allergic/Immunologic: Denies itchy eyes, Denies lip swelling, Denies throat swelling and Reports wheezing Pulmonology Exam Inpatient Vital signs and Labs for Last 24 Hours: Temp Pulse Resp BP Pulse Ox O2 Del Method O2 Flow Rate 98.6 F 111 H 28 H 64/36 L 92 L Nasal Cannula 2 10/15/25 08:00 10/15/25 08:00 10/15/25 08:00 10/15/25 08:00 10/15/25 08:46 10/15/25 09:00 10/15/25 09:00 Laboratory Results - last 24 hr 10/15/25 00:39: WBC 2.8 L, RBC 4.71, Hgb 11.4 L, Hct 37.2 L, MCV 79.0 L, MCH 24.2 L, MCHC 30.6 L, RDW 22.3 H, Plt Count 320, MPV 9.4, Neut % (Auto) 75.7, Lymph % (Auto) 16.8, Rock % (Auto) 1.8, Eos % (Auto) 0.7, Baso % (Auto) 0.7, Neut # (Auto) 2.1, Lymph # (Auto) 0.5 L, Rock # (Auto) 0.1, Eos # (Auto) 0.0, Baso # (Auto) 0.0, Total Counted 100, Neutrophils % (Manual) 69, Lymphocytes % (Manual) 23, Atypical Lymphs % 8, Platelet Estimate Not Reportable, RBC Morphology Not Reportable, PT 10.0 L, INR 0.89 L, Sodium 141, Potassium 3.8, Chloride 103, Carbon Dioxide 26, Anion Gap 15.8 H, BUN 37 H, Creatinine 1.20, Estimated Creat Clear 42, Estimated GFR 59, Est GFR ( Amer) 72, Glucose 154 H, Lactate 3.3 H, Calcium 9.8, Total Bilirubin 0.7, AST 47 D, ALT 101 H, Alkaline Phosphatase 142 H, Troponin I < 0.01, Total Protein 7.2, Albumin 4.3, Globulin 2.9, Albumin/Globulin Ratio 1.5, Lipase 269, HCV Ab ASHKAN w/Rflx PCR Qn Negative, HIV Ag/Ab Combo Qual Negative 10/15/25 00:46: Chlamy pneumoniae PCR Not detected, Adenovirus (PCR) Not detected, B. pertussis DNA (PCR) Not detected, Coronavirus OC43 (PCR) Not detected, Coronavirus HKU1 (PCR) Not detected, Coronavirus 229E (PCR) Not detected, SARS-CoV-2 (PCR) Not detected, Coronavirus NL63 (PCR) Not detected, Human Metapneumovir PCR Not detected, Influenza A (H1) PCR Not detected, Influ A (H1N1/09) PCR Not detected, Influenza A (H3) PCR Not detected, Influenza Type A (PCR) Not detected, Influenza Type B (PCR) Not detected, M. pneumoniae (PCR) Not detected, Parainfluenza 1 (PCR) Not detected, Parainfluenza 2 (PCR) Not detected, Parainfluenza 3 (PCR) Not detected, Parainfluenza 4 (PCR) Not detected, RSV (PCR) Not detected, Entero/Rhino (PCR) Not detected 10/15/25 00:47: Stl C. cayetanensis PCR Not detected, Stool Rotavirus (PCR) Not detected, Stl Adenov F 40/41 PCR Not detected, Stool Astrovirus (PCR) Not detected, Stool Campylobacter PCR Not detected, Stl C.difficile Tox PCR Not detected, Stool Cryptosporidium PCR Not detected, Stl E.coli Shiga Tox PCR Not detected, Stool E coli O157 PCR Not detected, Stl Enterotoxigenic E PCR Not detected, Stool EPEC (PCR) Not detected, Stool EAEC (PCR) Not detected, Stl E. histolytica PCR Not detected, Stool Giardia Lamblia PCR Not detected, Stool Salmonella PCR Not detected, Stool Sapovirus (PCR) Not detected, Stl P. shigelloides PCR Not detected, Stl Shigella/EIEC PCR Not detected, St Y.enterocolitica PCR Not detected, Stool Vibrio (PCR) Not detected, Stl Vibrio cholerae PCR Not detected, Stl Norovirus GI/GII PCR Not detected 10/15/25 03:18: Troponin I < 0.01 10/15/25 04:04: POC Glucose 188 H 10/15/25 06:18: WBC 1.2 L* D, RBC 4.22 L, Hgb 10.0 L D, Hct 33.8 L, MCV 80.1, MCH 23.9 L, MCHC 29.9 L, RDW 22.2 H, Plt Count 244, MPV 10.0, Neut % (Auto) 67.0, Lymph % (Auto) 24.6, Rock % (Auto) 4.2, Eos % (Auto) 1.7, Baso % (Auto) 0.8, Neut # (Auto) 0.8 L*, Lymph # (Auto) 0.3 L, Rock # (Auto) 0.1, Eos # (Auto) 0.0, Baso # (Auto) 0.0, Sodium 144, Potassium 2.9 L* D, Chloride 105, Carbon Dioxide 27, Anion Gap 14.9, BUN 31 H, Creatinine 1.20, Estimated Creat Clear 45, Estimated GFR 59, Est GFR ( Amer) 72, Glucose 159 H, Lactate 3.8 H, Calcium 8.3 L, Magnesium 1.9, Troponin I 0.02, Triglycerides 229 H, Cholesterol 249 H, LDL Cholesterol Direct 149.18 H, VLDL Cholesterol 46 H, HDL Cholesterol 67 H, Cholesterol/HDL Ratio 3.7 H 10/15/25 06:44: POC Glucose 167 H 10/15/25 08:45: Hgb 9.7 L, Hct 33.8 L, Lactate 4.7 H 10/15/25 09:43: Hgb 10.1 L, Hct 35.8 L I & O for Labs for Last 24 Hours: Intake & Output 10/12/25 10/13/25 10/14/25 10/15/25 23:59 23:59 23:59 23:59 Intake Total 3078.125 / 3078.125 Output Total 225 / 225 Balance 2853.125 / 2853.125 Weight 129 lb 4.782 oz Constitutional: Present severe distress Head: Present normocephalic and atraumatic ENT: Present normal exam, normal oropharynx and mucous membranes moist Neck: Present normal inspection and full ROM Respiratory: Present rhonchi, diminished air movement and able to speak in complete sentences; Absent prolonged expiratory phase or respiratory distress Cardiac: Present S1/S2, Tachycardia and radial pulses present GI: Present soft, distention, tenderness and guarding Skin: Present intact; Absent cyanosis or jaundice Neuro: Present alert and awake Extremities: Present normal inspection; Absent clubbing or cyanosis Psychiatric: Present normal affect and cooperative Meds Home Medications and Allergies Home Medications ?Medication ?Instructions ?Recorded ?Confirmed ?Type metformin 500 mg tablet 500 mg PO BID 01/02/19 10/15/25 History insulin lispro protamine-lispro 26 unit SQ DIRECTED Diabetes 01/23/24 10/15/25 History 100 unit/mL (75-25) subcutaneous pen empagliflozin 10 mg tablet 10 mg PO DAILY 02/21/24 10/15/25 History (Jardiance) mirtazapine 15 mg tablet (Remeron) 15 mg PO HS 09/18/24 10/15/25 History blood-glucose sensor (FreeStyle #1 ea 08/13/25 10/15/25 History Leroy 3 Plus Sensor device) cholecalciferol (vitamin D3) 25 2,000 unit PO DAILY 08/18/25 10/15/25 History mcg (1,000 unit) capsule voriconazole 200 mg tablet 200 mg PO DAILY 08/26/25 10/15/25 History enoxaparin 60 mg/0.6 mL 60 mg (0.6 mL) SQ Q12H 10 days #12 10/06/25 10/15/25 Rx subcutaneous syringe (Lovenox) mL budesonide 3 mg 9 mg PO HS 10/15/25 10/15/25 History capsule,delayed,extended release levothyroxine 75 mcg tablet 75 mcg PO DAILY 10/15/25 10/15/25 History mycophenolate mofetil 500 mg tablet 1,500 mg PO DAILY 10/15/25 10/15/25 History potassium chloride 20 mEq 20 meq PO DAILY 10/15/25 10/15/25 History tablet,extended release(part/cryst) ursodiol 500 mg tablet 500 mg PO BID 10/15/25 10/15/25 History warfarin 5 mg tablet 5 mg PO DAILY 10/15/25 10/15/25 History New Prescriptions to Start Prescriptions: Allergies Allergy/AdvReac Type Severity Reaction Status Date / Time cephalexin (From Synaffix) Allergy Rash Verified 10/14/25 09:54 ragweed pollen Allergy Other Verified 10/14/25 09:54 Results Laboratory Findings 10/15/25 09:43 10/15/25 06:18 PT/INR, D-dimer PT 10.0 seconds (10.1-12.5) L 10/15/25 00:39 INR 0.89 (0.9-1.1) L 10/15/25 00:39 Abnormal lab findings: Abnormal Labs 10/15/25 10/15/25 10/15/25 00:39 04:04 06:18 WBC 2.8 L 1.2 L* D RBC 4.22 L Hgb 11.4 L 10.0 L D Hct 37.2 L 33.8 L MCV 79.0 L MCH 24.2 L 23.9 L MCHC 30.6 L 29.9 L RDW 22.3 H 22.2 H Neut # (Auto) 0.8 L* Lymph # (Auto) 0.5 L 0.3 L PT 10.0 L INR 0.89 L Potassium 2.9 L* D Anion Gap 15.8 H BUN 37 H 31 H Glucose 154 H 159 H POC Glucose 188 H Lactate 3.3 H 3.8 H Calcium 8.3 L ALT 101 H Alkaline Phosphatase 142 H Triglycerides 229 H Cholesterol 249 H LDL Cholesterol Direct 149.18 H VLDL Cholesterol 46 H HDL Cholesterol 67 H Cholesterol/HDL Ratio 3.7 H 10/15/25 10/15/25 10/15/25 06:44 08:45 09:43 WBC RBC Hgb 9.7 L 10.1 L Hct 33.8 L 35.8 L MCV MCH MCHC RDW Neut # (Auto) Lymph # (Auto) PT INR Potassium Anion Gap BUN Glucose POC Glucose 167 H Lactate 4.7 H Calcium ALT Alkaline Phosphatase Triglycerides Cholesterol LDL Cholesterol Direct VLDL Cholesterol HDL Cholesterol Cholesterol/HDL Ratio Assessment and Plan *Assessment and plan (1) Acidosis, lactic: Status: Acute Category: Medical Code(s): E87.20 - Acidosis, unspecified (2) Acute and chronic respiratory failure with hypoxia: Status: Acute Category: Medical Code(s): J96.21 - Acute and chronic respiratory failure with hypoxia Plan Mr. 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 CT chest upon this admission reviewed, no acute pulmonary parenchymal changes noted but continued to find evidence of granulomatous disease with interstitial changes and pleural thickening. Low-grade fevers. Hemodynamically unstable. Leukopenia with absolute neutrophil count at 800. CT abdomen concerning for duodenitis. No acute occlusion of celiac and mesenteric arteries other than moderate stenosis noted. Plan: Continue vasopressor support to maintain MAP goal of 65 and above. Currently on 20 mcg of Levophed. Surgery consult for central line placement. Will add vasopressin at 0.04 mcg not titratable. Continue oxygen supplementation to maintain O2 saturation below 90% and above. DuoNebs 4 times daily as needed Continue Zosyn. Will add vancomycin pending final blood culture results Initiate stress dose steroids with hydrocortisone 50 mg every 4 hours Initiate hydrocortisone 200 mg 3 times daily Follow with lactic acidosis, 3.8 upon admission, worsened to 4.7 this morning Follow with final blood culture results Follow urine analysis and reflex culture Urine histoplasma antigen Serum beta D glucan CRP and random cortisol Abdomen soft nondistended. Admit lower quadrant pain and tenderness. Total critical care time spent on this patient is 35 minutes managing septic shock with hemodynamic instability needing vasopressor support. This time spent include reviewing test results including interpreting chest x-rays, labs and blood gas, optimizing the vasopressors, formulating plan of care, discussing the plan of care with the team and the nursing staff.
--- NOTE | 2025-10-15 10:50 | EXP.PHA.CONS ---
Pharmacy Consult Date: 10/15/25 Time: 10:50 Referring provider: DR. ALLEN Reason for Consult:: VANCOMYCIN DOSING Allergies Allergy/AdvReac Type Severity Reaction Status Date / Time cephalexin (From Keflex) Allergy Rash Verified 10/14/25 09:54 ragweed pollen Allergy Other Verified 10/14/25 09:54 Home Medications ?Medication ?Instructions ?Recorded ?Confirmed ?Type metformin 500 mg tablet 500 mg PO BID 01/02/19 10/15/25 History insulin lispro protamine-lispro 26 unit SQ DIRECTED Diabetes 01/23/24 10/15/25 History 100 unit/mL (75-25) subcutaneous pen empagliflozin 10 mg tablet 10 mg PO DAILY 02/21/24 10/15/25 History (Jardiance) mirtazapine 15 mg tablet (Remeron) 15 mg PO HS 09/18/24 10/15/25 History blood-glucose sensor (FreeStyle #1 ea 08/13/25 10/15/25 History Leroy 3 Plus Sensor device) cholecalciferol (vitamin D3) 25 2,000 unit PO DAILY 08/18/25 10/15/25 History mcg (1,000 unit) capsule voriconazole 200 mg tablet 200 mg PO DAILY 08/26/25 10/15/25 History enoxaparin 60 mg/0.6 mL 60 mg (0.6 mL) SQ Q12H 10 days #12 10/06/25 10/15/25 Rx subcutaneous syringe (Lovenox) mL budesonide 3 mg 9 mg PO HS 10/15/25 10/15/25 History capsule,delayed,extended release levothyroxine 75 mcg tablet 75 mcg PO DAILY 10/15/25 10/15/25 History mycophenolate mofetil 500 mg tablet 1,500 mg PO DAILY 10/15/25 10/15/25 History potassium chloride 20 mEq 20 meq PO DAILY 10/15/25 10/15/25 History tablet,extended release(part/cryst) ursodiol 500 mg tablet 500 mg PO BID 10/15/25 10/15/25 History warfarin 5 mg tablet 5 mg PO DAILY 10/15/25 10/15/25 History New Prescriptions to Start Prescriptions: Height: 1.6 m Weight: 58.649 kg Laboratory Results:: Laboratory Results - last 24 hr 10/15/25 00:39: WBC 2.8 L, RBC 4.71, Hgb 11.4 L, Hct 37.2 L, MCV 79.0 L, MCH 24.2 L, MCHC 30.6 L, RDW 22.3 H, Plt Count 320, MPV 9.4, Neut % (Auto) 75.7, Lymph % (Auto) 16.8, [place] % (Auto) 1.8, Eos % (Auto) 0.7, Baso % (Auto) 0.7, Neut # (Auto) 2.1, Lymph # (Auto) 0.5 L, [place] # (Auto) 0.1, Eos # (Auto) 0.0, Baso # (Auto) 0.0, Total Counted 100, Neutrophils % (Manual) 69, Lymphocytes % (Manual) 23, Atypical Lymphs % 8, Platelet Estimate Not Reportable, RBC Morphology Not Reportable, PT 10.0 L, INR 0.89 L, Sodium 141, Potassium 3.8, Chloride 103, Carbon Dioxide 26, Anion Gap 15.8 H, BUN 37 H, Creatinine 1.20, Estimated Creat Clear 42, Estimated GFR 59, Est GFR ( Amer) 72, Glucose 154 H, Lactate 3.3 H, Calcium 9.8, Total Bilirubin 0.7, AST 47 D, ALT 101 H, Alkaline Phosphatase 142 H, Troponin I < 0.01, Total Protein 7.2, Albumin 4.3, Globulin 2.9, Albumin/Globulin Ratio 1.5, Lipase 269, HCV Ab ASHKAN w/Rflx PCR Qn Negative, HIV Ag/Ab Combo Qual Negative 10/15/25 00:46: Chlamy pneumoniae PCR Not detected, Adenovirus (PCR) Not detected, B. pertussis DNA (PCR) Not detected, Coronavirus OC43 (PCR) Not detected, Coronavirus HKU1 (PCR) Not detected, Coronavirus 229E (PCR) Not detected, SARS-CoV-2 (PCR) Not detected, Coronavirus NL63 (PCR) Not detected, Human Metapneumovir PCR Not detected, Influenza A (H1) PCR Not detected, Influ A (H1N1/09) PCR Not detected, Influenza A (H3) PCR Not detected, Influenza Type A (PCR) Not detected, Influenza Type B (PCR) Not detected, M. pneumoniae (PCR) Not detected, Parainfluenza 1 (PCR) Not detected, Parainfluenza 2 (PCR) Not detected, Parainfluenza 3 (PCR) Not detected, Parainfluenza 4 (PCR) Not detected, RSV (PCR) Not detected, Entero/Rhino (PCR) Not detected 10/15/25 00:47: Stl C. cayetanensis PCR Not detected, Stool Rotavirus (PCR) Not detected, Stl Adenov F 40/41 PCR Not detected, Stool Astrovirus (PCR) Not detected, Stool Campylobacter PCR Not detected, Stl C.difficile Tox PCR Not detected, Stool Cryptosporidium PCR Not detected, Stl E.coli Shiga Tox PCR Not detected, Stool E coli O157 PCR Not detected, Stl Enterotoxigenic E PCR Not detected, Stool EPEC (PCR) Not detected, Stool EAEC (PCR) Not detected, Stl E. histolytica PCR Not detected, Stool Giardia Lamblia PCR Not detected, Stool Salmonella PCR Not detected, Stool Sapovirus (PCR) Not detected, Stl P. shigelloides PCR Not detected, Stl Shigella/EIEC PCR Not detected, St Y.enterocolitica PCR Not detected, Stool Vibrio (PCR) Not detected, Stl Vibrio cholerae PCR Not detected, Stl Norovirus GI/GII PCR Not detected 10/15/25 03:18: Troponin I < 0.01 10/15/25 04:04: POC Glucose 188 H 10/15/25 06:18: WBC 1.2 L* D, RBC 4.22 L, Hgb 10.0 L D, Hct 33.8 L, MCV 80.1, MCH 23.9 L, MCHC 29.9 L, RDW 22.2 H, Plt Count 244, MPV 10.0, Neut % (Auto) 67.0, Lymph % (Auto) 24.6, [place] % (Auto) 4.2, Eos % (Auto) 1.7, Baso % (Auto) 0.8, Neut # (Auto) 0.8 L*, Lymph # (Auto) 0.3 L, [place] # (Auto) 0.1, Eos # (Auto) 0.0, Baso # (Auto) 0.0, Sodium 144, Potassium 2.9 L* D, Chloride 105, Carbon Dioxide 27, Anion Gap 14.9, BUN 31 H, Creatinine 1.20, Estimated Creat Clear 45, Estimated GFR 59, Est GFR ( Amer) 72, Glucose 159 H, Lactate 3.8 H, Calcium 8.3 L, Magnesium 1.9, Troponin I 0.02, Triglycerides 229 H, Cholesterol 249 H, LDL Cholesterol Direct 149.18 H, VLDL Cholesterol 46 H, HDL Cholesterol 67 H, Cholesterol/HDL Ratio 3.7 H 10/15/25 06:44: POC Glucose 167 H 10/15/25 08:45: Hgb 9.7 L, Hct 33.8 L, Lactate 4.7 H, Blood Type O Positive, Antibody Screen Negative 10/15/25 09:43: Hgb 10.1 L, Hct 35.8 L Medical History: Medical History (Updated 10/15/25 @ 08:59 by LUCIA Barker) Mediastinal lymphadenopathy Mural thrombus of heart Aortic mural thrombus Immunosuppressed status Insomnia Elevated troponin Respiratory failure Colon polyps Melena Community acquired pneumonia On anticoagulant therapy History of atrial flutter Supraventricular tachycardia Palpitations Atrial fibrillation and flutter Atrial flutter Atrial flutter with rapid ventricular response Afib Ex-smoker for more than 1 year Hyperlipidemia associated with type 2 diabetes mellitus Atrial fibrillation with rapid ventricular response Fibrosis of lung Fatigue Steroid dependence Hemochromatosis Hemochromatosis Chronic respiratory failure with hypoxia History of smoking 30 or more pack years ILD (interstitial lung disease) Dyspnea on exertion Cataract Granuloma annulare Diastolic dysfunction Encounter for monitoring flecainide therapy PAF (paroxysmal atrial fibrillation) Assessment and Plan Assessment and plan all Dx Assessment and Plan for all problems:: Pharmacokinetic dosing service Objective: Patient: Floor: Age: 75 yo Serum creatinine: 1.2 mg/dL Height: 63.0 Inches Weight (kg): 58.7 Assessment: IBW (kg): 56.90 Dosing wt(kg): 58.7 Estimated Creatinine clearance (ml/min): 43.5 CRCL method: Cockcroft and Gault using ibw(default). Drug selected: Vancomycin Loading dose (mg): 0 Vd (liters): 47.0 (factor used: 0.8 L/kg) Adrien (hr-1): 0.041 Half life (hrs): 16.91 Recommended dose: 1000 mg Interval: 24 hrs Infusion time (hrs): 2.0 Predicted peak (mcg/mL): 32.6 Predicted trough (mcg/mL): 13.23 Total body weight is being used for vancomycin dosing. Recommendations: Give Vancomycin 1000 mg q 24 hrs with an expected Cpeak of 32.6 mcg/ml and an expected Ctrough of 13.23 mcg/ml ----Vanco only - ignore for aminoglycosides----- CLvanco= 1.93 L/hr AUC 0-24 /CINTHIA Data: CINTHIA 0.5 mcg/mL: AUC/CINTHIA: 1036.3 CINTHIA 1.0 mcg/mL: AUC/CINTHIA: 518.1 --------- CINTHIA 1.5 mcg/mL: AUC/CINTHIA: 345.4 CINTHIA 2.0 mcg/mL: AUC/CINTHIA: 259.1
[2025-10-15 11:09] LABS: POC Glucose,Bedside 268 gm/dL (70-110)
[2025-10-15] MEDS: HYDROCORTISONE SOD SUCCINATE 100MG VIAL 50 MG IV ×3 (11:13→22:34)
[2025-10-15 11:20] LABS: C-Reactive Protein 67.1 mg/L (0-4)
--- NOTE | 2025-10-15 11:26 | PC.NURSE ---
PER MD HERNANDEZ AFTER SECOND BAG OF POTASSIUM WAS FINISHED REPEAT POTASSIUM LAB 1 HOUR AFTER BAG FINISHED. ORDERED FOR NOON TODAY.
[2025-10-15] MEDS: humaLOG 100 UNITS/ML 10ML VIAL (SSI) SUBCUT ×3 (11:31→20:21)
[2025-10-15] MEDS: VANCOMYCIN HCL 1,000 MG in 0.9 % SODIUM CHLORIDE 250 ML 125 MG IV (12:15)
[2025-10-15 12:39] LABS: INR 0.96 (0.9-1.1); Prothrombin Time 10.7 seconds (10.1-12.5)
[2025-10-15 12:42] LABS: Chloride 107 mmol/L (98-107); Sodium 141 mmol/L (136-145)
[2025-10-15 12:43] LABS: Potassium 4.3 mmoL/L (3.5-5.1)
[2025-10-15 12:45] LABS: Blood Urea Nitrogen 32 mg/dl (9-20); Creatinine Clearance Estimated 38 mL/min (50-200); Creatinine,Serum 1.40 mg/dl (0.66-1.25); Estimated Glomerular Filt Rate 50 ml/min (>60); GFR (African American) 60 ML/MIN (>60)
[2025-10-15 12:46] LABS: Anion Gap 19.3 mEq/L (5-15); Calcium 7.9 mg/dl (8.4-10.2); Carbon Dioxide 19 mmol/L (22.0-30.0); Glucose 291 mg/dl (74-100)
[2025-10-15 12:55] LABS: VBG HCO3 18.8 mmol/L (23-30); VBG PCO2 34.5 mmol/L (35-51); VBG PH 7.36 mmol/L (7.31-7.41); VBG PO2 96.8 mmol/L (28-40)
[2025-10-15 12:58] LABS: Lactate Venous 4.9 mmol/L (0.4-2.0)
[2025-10-15] MEDS: LIDOCAINE 1% 20ML MDV 5 ML SUBCUT (13:00)
--- NOTE | 2025-10-15 13:19 | XR_ITS ---
FINAL REPORT CLINICAL HISTORY: Central Line Placement FINDINGS: SINGLE VIEW CHEST There is mild cardiomegaly. The mediastinum is unremarkable. Left subclavian central venous catheter tip terminates in the SVC. There are small bilateral pleural effusions and minimal atelectasis, left greater than right. There is no pneumothorax. IMPRESSION: Left subclavian central venous catheter tip in the SVC. Bilateral pleural effusions and minimal atelectasis. Reviewed, Interpreted and Dictated by Issac Hung MD Transcribed by Nita Gore Authenticated and [facility]
--- NOTE | 2025-10-15 13:26 | HMH.PROCNOTE ---
[facility] Procedure Note Date: 10/15/25 Time: 13:26 Procedure Note:: Preoperative diagnosis: Need for central venous access for intravenous vasopressors Postoperative diagnosis: Same Procedure: Placement of 7 Hungarian nontunneled triple-lumen catheter left subclavian vein Surgeon: Richard Swartz MD Anesthesia: 1% Xylocaine local Procedure description: Consent was obtained. Timeout procedure was performed. Patient was maintained on the hospital bed. He was positioned in Trendelenburg position. Left neck and chest were prepped and draped in the standard surgical fashion. Local anesthetic was infiltrated inferior to the left clavicle medial to the deltopectoral groove. 18-gauge needle was inserted. Initially there was some clearish liquid aspirated. This was felt to be likely infiltrated local anesthesia. Needle was then reinserted somewhat more medially with good return of venous blood. Guidewire was inserted. Needle was removed. Small incision was made at the insertion site. Subcutaneous tissues were dilated. 7 Hungarian triple-lumen catheter was inserted over the guidewire using Seldinger technique. It was secured with the butterfly device at approximately the 15 cm chichi using silk suture. All ports aspirated and flushed without difficulty. They are flushed with saline. Clean dry sterile dressing was applied. Chest x-ray being performed at the time of this dictation. No immediate complications apparent. .
[2025-10-15 13:39] LABS: Acinetobacter calcoaceticus-ba Not Detected; Bacteroides fragilis Not Detected; Candida auris Not Detected; Candida glabrata Not Detected; Enterobacterales Not Detected; Enterococcus faecalis Not Detected; Enterococcus faecium Not Detected; Klebsiella aerogenes Not Detected; Klebsiella pneumoniae grp Not Detected; Proteus spp. Not Detected; Salmonella spp. Not Detected; Serratia marcescens Not Detected; Staphylococcus epidermidis Not Detected; Staphylococcus lugdunensis Not Detected; Staphylococcus spp. Not Detected; Stenotrophomonas maltophilia Not Detected; Streptococcus agalactiae(GrpB) Not Detected; Streptococcus pyogenes Group A Not Detected; Streptococcus spp. Detected
--- NOTE | 2025-10-15 13:52 | PC.NURSE ---
MD JOSE CALLED AND STATED THAT CENTRAL LINE WAS OK TO USE
[2025-10-15] MEDS: NOREPINEPHRINE BITARTRATE/D5W 8 MG/250 ML PLAST..BAG 45 MG IV ×2 (14:38→19:56)
[2025-10-15] MEDS: VASOPRESSIN 40 UNIT in 0.9 % SODIUM CHLORIDE 100 ML 6.12 UNIT IV (14:41)
[2025-10-15 15:11] LABS: Microscopic, Urine URINE MICROSCOPIC (MICROSCOPIC)
[2025-10-15 15:42] LABS: Bacteria,Urine Trace /lpf; RBC,Urine Occasional #/hpf (0-3); Squamous Epithelial Cell,Urine Occasional #/hpf (0-5)
[2025-10-15 15:43] LABS: Bilirubin,Urine Negative (Negative); Color,Urine YELLOW (Yellow); Glucose,Urine (UA) 2+ (Negative); Ketones,Urine Negative (Negative); Leukocyte Esterase,Urine Negative (Negative); PH,Urine 6.0 (5.0-8.5); Protein,Urine 1+ (Negative); Specific Gravity, Urine 1.010 (1.005-1.030); Urobilinogen,Urine 0.2 EU/dl (0.2)
[2025-10-15] MEDS: ITRACONAZOLE 100MG CAPSULE 200 MG PO ×2 (15:57→20:20)
[2025-10-15 16:57] LABS: Reflex Lactic Add Lactic Reflex
[2025-10-15 17:04] LABS: POC Glucose,Bedside 333 gm/dL (70-110)
--- NOTE | 2025-10-15 17:42 | EXP.GE.CONS ---
History of Present Illness *Admission Date: 10/15/25 *History of present illness: Mr. 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 The patient did have some mild reflux esophagitis, insignificant Schatzki's ring and mild reactive gastropathy. I did take some cold biopsies of the duodenum and he did not have any evidence of portal gastropathy, portal hypertension or varices on his endoscopy. The patient was doing well and was tolerating oral intake until last evening when he developed nausea, vomiting and diarrhea. He had some chills. He did come to the emergency department and had sinus tachycardia and low-grade fever. He did have a decline in his white blood cell count. He was also hypotensive. A CAT scan of the abdomen and pelvis showed some proximal stenosis of the SMA (noted to be 80% on prior imaging). On discussion with the patient, he has not had any melena or hematochezia and did have some initial decline in hemoglobin/hematocrit. He does report some crampy discomfort in the lower abdomen. [facility] Disclaimer: The information contained in this section may have been updated after the patient was seen, as this information can be updated by other users. Medical History (Updated 10/15/25 @ 17:47 by Bandar Crawford II, MD) Acute and chronic respiratory failure with hypoxia Mediastinal lymphadenopathy Mural thrombus of heart Aortic mural thrombus Immunosuppressed status Insomnia Elevated troponin Respiratory failure Colon polyps Melena Community acquired pneumonia On anticoagulant therapy History of atrial flutter Supraventricular tachycardia Palpitations Atrial fibrillation and flutter Atrial flutter Atrial flutter with rapid ventricular response Afib Ex-smoker for more than 1 year Hyperlipidemia associated with type 2 diabetes mellitus Atrial fibrillation with rapid ventricular response Fibrosis of lung Fatigue Steroid dependence Hemochromatosis Hemochromatosis Chronic respiratory failure with hypoxia History of smoking 30 or more pack years ILD (interstitial lung disease) Dyspnea on exertion Cataract Granuloma annulare Diastolic dysfunction Encounter for monitoring flecainide therapy PAF (paroxysmal atrial fibrillation) Surgical History History of colonoscopy History of appendectomy Uses cochlear implant Hx of tonsillectomy H/O left knee surgery Family History Other Cancer Family history of diabetes mellitus type II Heart disease Stroke Social History (Updated 10/15/25 @ 03:43 by Alia Newell RN) Smoking Status: Former smoker tobacco type: cigarettes packs per day: 1 pack-years: 50 smoking status stop date: 2004 how long ago did patient quit smokin alcohol intake: never substance use type: denies use current occupational status: retired Travel in the last 8 weeks?: None household members: spouse housing: house 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 [employer] current occupational exposures/hazards: Yes ([employer]) caffeine: Yes Have you lived/traveled outside [place] in past 30 days?: No Contact w/someone who lives/traveled outside US past 30 days?: No Exposure to someone with infectious disease in past 14 days?: No Do you have a fever (greater than 100.4 F or 38 C)?: No Have you tested positive for COVID-19?: No Exposed to someone with COVID-19 in past 14 days?: No Do you have a sore throat?: No Do you have a cough?: No Do you have any weakness?: No Do you have any diarrhea?: Yes Are you experiencing any unusual bleeding?: No Do you have any muscle aches/pain?: No Do you have any abdominal pain?: No Are you experiencing loss of taste or smell?: No Meds Home Medications and Allergies Home Medications ?Medication ?Instructions ?Recorded ?Confirmed ?Type metformin 500 mg tablet 500 mg PO BID 01/02/19 10/15/25 History insulin lispro protamine-lispro 26 unit SQ DIRECTED Diabetes 01/23/24 10/15/25 History 100 unit/mL (75-25) subcutaneous pen empagliflozin 10 mg tablet 10 mg PO DAILY 02/21/24 10/15/25 History (Jardiance) mirtazapine 15 mg tablet (Remeron) 15 mg PO HS 09/18/24 10/15/25 History blood-glucose sensor (FreeStyle #1 ea 08/13/25 10/15/25 History Leroy 3 Plus Sensor device) cholecalciferol (vitamin D3) 25 2,000 unit PO DAILY 08/18/25 10/15/25 History mcg (1,000 unit) capsule voriconazole 200 mg tablet 200 mg PO DAILY 08/26/25 10/15/25 History enoxaparin 60 mg/0.6 mL 60 mg (0.6 mL) SQ Q12H 10 days #12 10/06/25 10/15/25 Rx subcutaneous syringe (Lovenox) mL budesonide 3 mg 9 mg PO HS 10/15/25 10/15/25 History capsule,delayed,extended release levothyroxine 75 mcg tablet 75 mcg PO DAILY 10/15/25 10/15/25 History mycophenolate mofetil 500 mg tablet 1,500 mg PO DAILY 10/15/25 10/15/25 History potassium chloride 20 mEq 20 meq PO DAILY 10/15/25 10/15/25 History tablet,extended release(part/cryst) ursodiol 500 mg tablet 500 mg PO BID 10/15/25 10/15/25 History warfarin 5 mg tablet 5 mg PO DAILY 10/15/25 10/15/25 History New Prescriptions to Start Prescriptions: Allergies Allergy/AdvReac Type Severity Reaction Status Date / Time cephalexin (From [facility]) Allergy Rash Verified 10/14/25 09:54 ragweed pollen Allergy Other Verified 10/14/25 09:54 Exam (Inpt) Vital signs and Labs for Last 24 Hours: Temp Pulse Resp BP Pulse Ox O2 Del Method O2 Flow Rate 98.3 F 98 H 30 H 103/65 L 96 Room Air 2 10/15/25 12:15 10/15/25 17:00 10/15/25 17:00 10/15/25 17:00 10/15/25 17:00 10/15/25 17:00 10/15/25 11:00 Laboratory Results - last 24 hr 10/15/25 00:39: WBC 2.8 L, RBC 4.71, Hgb 11.4 L, Hct 37.2 L, MCV 79.0 L, MCH 24.2 L, MCHC 30.6 L, RDW 22.3 H, Plt Count 320, MPV 9.4, Neut % (Auto) 75.7, Lymph % (Auto) 16.8, Nolan % (Auto) 1.8, Eos % (Auto) 0.7, Baso % (Auto) 0.7, Neut # (Auto) 2.1, Lymph # (Auto) 0.5 L, Nolan # (Auto) 0.1, Eos # (Auto) 0.0, Baso # (Auto) 0.0, Total Counted 100, Neutrophils % (Manual) 69, Lymphocytes % (Manual) 23, Atypical Lymphs % 8, Platelet Estimate Not Reportable, RBC Morphology Not Reportable, PT 10.0 L, INR 0.89 L, Sodium 141, Potassium 3.8, Chloride 103, Carbon Dioxide 26, Anion Gap 15.8 H, BUN 37 H, Creatinine 1.20, Estimated Creat Clear 42, Estimated GFR 59, Est GFR ( Amer) 72, Glucose 154 H, Lactate 3.3 H, Calcium 9.8, Total Bilirubin 0.7, AST 47 D, ALT 101 H, Alkaline Phosphatase 142 H, Troponin I < 0.01, Total Protein 7.2, Albumin 4.3, Globulin 2.9, Albumin/Globulin Ratio 1.5, Lipase 269, HCV Ab ASHKAN w/Rflx PCR Qn Negative, HIV Ag/Ab Combo Qual Negative 10/15/25 00:46: Chlamy pneumoniae PCR Not detected, Adenovirus (PCR) Not detected, B. pertussis DNA (PCR) Not detected, Coronavirus OC43 (PCR) Not detected, Coronavirus HKU1 (PCR) Not detected, Coronavirus 229E (PCR) Not detected, SARS-CoV-2 (PCR) Not detected, Coronavirus NL63 (PCR) Not detected, Human Metapneumovir PCR Not detected, Influenza A (H1) PCR Not detected, Influ A (H1N1/09) PCR Not detected, Influenza A (H3) PCR Not detected, Influenza Type A (PCR) Not detected, Influenza Type B (PCR) Not detected, M. pneumoniae (PCR) Not detected, Parainfluenza 1 (PCR) Not detected, Parainfluenza 2 (PCR) Not detected, Parainfluenza 3 (PCR) Not detected, Parainfluenza 4 (PCR) Not detected, RSV (PCR) Not detected, Entero/Rhino (PCR) Not detected 10/15/25 00:47: Stl C. cayetanensis PCR Not detected, Stool Rotavirus (PCR) Not detected, Stl Adenov F 40/41 PCR Not detected, Stool Astrovirus (PCR) Not detected, Stool Campylobacter PCR Not detected, Stl C.difficile Tox PCR Not detected, Stool Cryptosporidium PCR Not detected, Stl E.coli Shiga Tox PCR Not detected, Stool E coli O157 PCR Not detected, Stl Enterotoxigenic E PCR Not detected, Stool EPEC (PCR) Not detected, Stool EAEC (PCR) Not detected, Stl E. histolytica PCR Not detected, Stool Giardia Lamblia PCR Not detected, Stool Salmonella PCR Not detected, Stool Sapovirus (PCR) Not detected, Stl P. shigelloides PCR Not detected, Stl Shigella/EIEC PCR Not detected, St Y.enterocolitica PCR Not detected, Stool Vibrio (PCR) Not detected, Stl Vibrio cholerae PCR Not detected, Stl Norovirus GI/GII PCR Not detected 10/15/25 03:18: Troponin I < 0.01, A. baumannii (PCR) Not detected 10/15/25 03:18: A. baumannii (PCR) Not detected, Bacteroides fragilis Not detected 10/15/25 03:18: Bacteroides fragilis Not detected, Rpuali albicans (PCR) Not detected 10/15/25 03:18: Rupali albicans (PCR) Not detected, Rupali auris (PCR) Not detected 10/15/25 03:18: Rupali auris (PCR) Not detected, C. glabrata (PCR) Not detected 10/15/25 03:18: C. glabrata (PCR) Not detected, C. krusei (PCR) Not detected 10/15/25 03:18: C. krusei (PCR) Not detected, C. parapsilosis (PCR) Not detected 10/15/25 03:18: C. parapsilosis (PCR) Not detected, C. tropicalis (PCR) Not detected 10/15/25 03:18: C. tropicalis (PCR) Not detected, Cryptococcus neoformans PCR Not detected 10/15/25 03:18: Cryptococcus neoformans PCR Not detected, Enterobacterales (PCR) Not detected 10/15/25 03:18: Enterobacterales (PCR) Not detected, Enterococc faecalis PCR Not detected 10/15/25 03:18: Enterococc faecalis PCR Not detected, Enterococc faecium PCR Not detected 10/15/25 03:18: Enterococc faecium PCR Not detected, E. coli (PCR) Not detected 10/15/25 03:18: E. coli (PCR) Not detected, H. influenzae DNA Not detected 10/15/25 03:18: H. influenzae DNA Not detected, Klebsiella aerogenes (PCR) Not detected 10/15/25 03:18: Klebsiella aerogenes (PCR) Not detected, Klebsiella oxytoca PCR Not detected 10/15/25 03:18: Klebsiella oxytoca PCR Not detected, K. pneumoniae group (PCR) Not detected 10/15/25 03:18: K. pneumoniae group (PCR) Not detected, List. monocytogenes PCR Not detected 10/15/25 03:18: List. monocytogenes PCR Not detected, N. meningitidis (PCR) Not detected 10/15/25 03:18: N. meningitidis (PCR) Not detected, Proteus species (PCR) Not detected 10/15/25 03:18: Proteus species (PCR) Not detected, Salmonella spp. (PCR) Not detected 10/15/25 03:18: Salmonella spp. (PCR) Not detected, Serratia marcescens PCR Not detected 10/15/25 03:18: Serratia marcescens PCR Not detected, Staphylococcus sp PCR Not detected 10/15/25 03:18: Staphylococcus sp PCR Not detected, Staph aureus (PCR) Not detected 10/15/25 03:18: Staph aureus (PCR) Not detected, mecA/C & MREJ Resist Gene Not applicable 10/15/25 03:18: mecA/C & MREJ Resist Gene Not applicable, mecA/C-Methicil Resis Gene Not applicable 10/15/25 03:18: mecA/C-Methicil Resis Gene Not applicable, Staph epidermidis (PCR) Not detected 10/15/25 03:18: Staph epidermidis (PCR) Not detected, Staph lugdunensis (TEM-PCR) Not detected 10/15/25 03:18: Staph lugdunensis (TEM-PCR) Not detected, S. maltophilia (PCR) Not detected 10/15/25 03:18: S. maltophilia (PCR) Not detected, Streptococcus sp PCR Detected A 10/15/25 03:18: Streptococcus sp PCR Detected A, S.agalactiae Grp B EL Not detected 10/15/25 03:18: S.agalactiae Grp B EL Not detected, Strep pneumoniae (PCR) Detected A 10/15/25 03:18: Strep pneumoniae (PCR) Detected A, S. pyogenes GrpA EL Not detected 10/15/25 03:18: S. pyogenes GrpA EL Not detected, P. aeruginosa (PCR) Not detected 10/15/25 03:18: P. aeruginosa (PCR) Not detected, Shavonne/B-Vanco Res Genes Not applicable 10/15/25 03:18: Shavonne/B-Vanco Res Genes Not applicable, blaIMP Car res Gene PCR Not applicable 10/15/25 03:18: blaIMP Car res Gene PCR Not applicable, KPC-Carbap Res Gene PCR Not applicable 10/15/25 03:18: KPC-Carbap Res Gene PCR Not applicable, blaNDM Car Res Gene PCR Not applicable 10/15/25 03:18: blaNDM Car Res Gene PCR Not applicable, OXA-48 Carbapenem Resis Gene (PCR) Not applicable 10/15/25 03:18: OXA-48 Carbapenem Resis Gene (PCR) Not applicable, blaVIM Car Res Gene PCR Not applicable 10/15/25 03:18: blaVIM Car Res Gene PCR Not applicable, CTX-M Gene Resistance (PCR) Not applicable 10/15/25 03:18: CTX-M Gene Resistance (PCR) Not applicable, MCR-1 Resistance Gene Not applicable 10/15/25 03:18: MCR-1 Resistance Gene Not applicable 10/15/25 04:04: POC Glucose 188 H 10/15/25 06:18: WBC 1.2 L* D, RBC 4.22 L, Hgb 10.0 L D, Hct 33.8 L, MCV 80.1, MCH 23.9 L, MCHC 29.9 L, RDW 22.2 H, Plt Count 244, MPV 10.0, Neut % (Auto) 67.0, Lymph % (Auto) 24.6, Nolan % (Auto) 4.2, Eos % (Auto) 1.7, Baso % (Auto) 0.8, Neut # (Auto) 0.8 L*, Lymph # (Auto) 0.3 L, Nolan # (Auto) 0.1, Eos # (Auto) 0.0, Baso # (Auto) 0.0, Sodium 144, Potassium 2.9 L* D, Chloride 105, Carbon Dioxide 27, Anion Gap 14.9, BUN 31 H, Creatinine 1.20, Estimated Creat Clear 45, Estimated GFR 59, Est GFR ( Amer) 72, Glucose 159 H, Lactate 3.8 H, Calcium 8.3 L, Magnesium 1.9, Troponin I 0.02, Triglycerides 229 H, Cholesterol 249 H, LDL Cholesterol Direct 149.18 H, VLDL Cholesterol 46 H, HDL Cholesterol 67 H, Cholesterol/HDL Ratio 3.7 H 10/15/25 06:44: POC Glucose 167 H 10/15/25 08:45: Hgb 9.7 L, Hct 33.8 L, Lactate 4.7 H, C-Reactive Protein 67.1 H, Blood Type O Positive, Antibody Screen Negative 10/15/25 09:43: Hgb 10.1 L, Hct 35.8 L 10/15/25 10:57: POC Glucose 268 H 10/15/25 12:08: Sodium 141, Potassium 4.3 D, Chloride 107, Carbon Dioxide 19 L, Anion Gap 19.3 H, BUN 32 H, Creatinine 1.40 H, Estimated Creat Clear 38, Estimated GFR 50 L, Est GFR ( Amer) 60, Glucose 291 H D, Calcium 7.9 L 10/15/25 12:24: PT 10.7, INR 0.96 10/15/25 12:50: VBG pH 7.36, VBG pCO2 34.5 L, VBG pO2 96.8 H, VBG HCO3 18.8 L, VBG Total CO2 19.9 L, VBG O2 Saturation 96.8 H, VBG Base Excess -6.7 L, VBG Lactic Acid 4.9 H 10/15/25 16:56: POC Glucose 333 H* 10/15/25 : Urine Color Yellow, Urine Appearance Clear, Urine pH 6.0, Ur Specific [place] 1.010, Urine Protein 1+ A, Urine Glucose (UA) 2+, Urine Ketones Negative, Urine Blood 1+ A, Urine Nitrate Negative, Urine Bilirubin Negative, Urine Urobilinogen 0.2, Ur Leukocyte Esterase Negative, Urine RBC Occasional, Urine WBC 3-5, Ur Squamous Epith Cells Occasional, Urine Bacteria Trace I & O for Labs for Last 24 Hours: Intake & Output 10/12/25 10/13/25 10/14/25 10/15/25 23:59 23:59 23:59 23:59 Intake Total 4597.604 / 4597.604 Output Total 675 / 675 Balance 3922.604 / 3922.604 Weight 129 lb 4.782 oz Microbiology Reports for the Last 24 Hours: Microbiology 10/15/25 03:18 Blood Blood Culture - Preliminary 10/15/25 03:18 Blood Blood Culture - Preliminary Comments:: Normoactive bowel sounds, soft, nondistended, mild tenderness with deeper palpation in the lower quadrants, no rebound or guarding, no masses, no hernias, benign abdomen Results Labs 10/15/25 09:43 10/15/25 12:08 Labs: Laboratory Results - last 24 hr 10/15/25 00:39: WBC 2.8 L, RBC 4.71, Hgb 11.4 L, Hct 37.2 L, MCV 79.0 L, MCH 24.2 L, MCHC 30.6 L, RDW 22.3 H, Plt Count 320, MPV 9.4, Neut % (Auto) 75.7, Lymph % (Auto) 16.8, Nolan % (Auto) 1.8, Eos % (Auto) 0.7, Baso % (Auto) 0.7, Neut # (Auto) 2.1, Lymph # (Auto) 0.5 L, Nolan # (Auto) 0.1, Eos # (Auto) 0.0, Baso # (Auto) 0.0, Total Counted 100, Neutrophils % (Manual) 69, Lymphocytes % (Manual) 23, Atypical Lymphs % 8, Platelet Estimate Not Reportable, RBC Morphology Not Reportable, PT 10.0 L, INR 0.89 L, Sodium 141, Potassium 3.8, Chloride 103, Carbon Dioxide 26, Anion Gap 15.8 H, BUN 37 H, Creatinine 1.20, Estimated Creat Clear 42, Estimated GFR 59, Est GFR ( Amer) 72, Glucose 154 H, Lactate 3.3 H, Calcium 9.8, Total Bilirubin 0.7, AST 47 D, ALT 101 H, Alkaline Phosphatase 142 H, Troponin I < 0.01, Total Protein 7.2, Albumin 4.3, Globulin 2.9, Albumin/Globulin Ratio 1.5, Lipase 269, HCV Ab ASHKAN w/Rflx PCR Qn Negative, HIV Ag/Ab Combo Qual Negative 10/15/25 00:46: Chlamy pneumoniae PCR Not detected, Adenovirus (PCR) Not detected, B. pertussis DNA (PCR) Not detected, Coronavirus OC43 (PCR) Not detected, Coronavirus HKU1 (PCR) Not detected, Coronavirus 229E (PCR) Not detected, SARS-CoV-2 (PCR) Not detected, Coronavirus NL63 (PCR) Not detected, Human Metapneumovir PCR Not detected, Influenza A (H1) PCR Not detected, Influ A (H1N1/09) PCR Not detected, Influenza A (H3) PCR Not detected, Influenza Type A (PCR) Not detected, Influenza Type B (PCR) Not detected, M. pneumoniae (PCR) Not detected, Parainfluenza 1 (PCR) Not detected, Parainfluenza 2 (PCR) Not detected, Parainfluenza 3 (PCR) Not detected, Parainfluenza 4 (PCR) Not detected, RSV (PCR) Not detected, Entero/Rhino (PCR) Not detected 10/15/25 00:47: Stl C. cayetanensis PCR Not detected, Stool Rotavirus (PCR) Not detected, Stl Adenov F 40/41 PCR Not detected, Stool Astrovirus (PCR) Not detected, Stool Campylobacter PCR Not detected, Stl C.difficile Tox PCR Not detected, Stool Cryptosporidium PCR Not detected, Stl E.coli Shiga Tox PCR Not detected, Stool E coli O157 PCR Not detected, Stl Enterotoxigenic E PCR Not detected, Stool EPEC (PCR) Not detected, Stool EAEC (PCR) Not detected, Stl E. histolytica PCR Not detected, Stool Giardia Lamblia PCR Not detected, Stool Salmonella PCR Not detected, Stool Sapovirus (PCR) Not detected, Stl P. shigelloides PCR Not detected, Stl Shigella/EIEC PCR Not detected, St Y.enterocolitica PCR Not detected, Stool Vibrio (PCR) Not detected, Stl Vibrio cholerae PCR Not detected, Stl Norovirus GI/GII PCR Not detected 10/15/25 03:18: Troponin I < 0.01, A. baumannii (PCR) Not detected 10/15/25 03:18: A. baumannii (PCR) Not detected, Bacteroides fragilis Not detected 10/15/25 03:18: Bacteroides fragilis Not detected, Rupali albicans (PCR) Not detected 10/15/25 03:18: Rupali albicans (PCR) Not detected, Rupali auris (PCR) Not detected 10/15/25 03:18: Rupali auris (PCR) Not detected, C. glabrata (PCR) Not detected 10/15/25 03:18: C. glabrata (PCR) Not detected, C. krusei (PCR) Not detected 10/15/25 03:18: C. krusei (PCR) Not detected, C. parapsilosis (PCR) Not detected 10/15/25 03:18: C. parapsilosis (PCR) Not detected, C. tropicalis (PCR) Not detected 10/15/25 03:18: C. tropicalis (PCR) Not detected, Cryptococcus neoformans PCR Not detected 10/15/25 03:18: Cryptococcus neoformans PCR Not detected, Enterobacterales (PCR) Not detected 10/15/25 03:18: Enterobacterales (PCR) Not detected, Enterococc faecalis PCR Not detected 10/15/25 03:18: Enterococc faecalis PCR Not detected, Enterococc faecium PCR Not detected 10/15/25 03:18: Enterococc faecium PCR Not detected, E. coli (PCR) Not detected 10/15/25 03:18: E. coli (PCR) Not detected, H. influenzae DNA Not detected 10/15/25 03:18: H. influenzae DNA Not detected, Klebsiella aerogenes (PCR) Not detected 10/15/25 03:18: Klebsiella aerogenes (PCR) Not detected, Klebsiella oxytoca PCR Not detected 10/15/25 03:18: Klebsiella oxytoca PCR Not detected, K. pneumoniae group (PCR) Not detected 10/15/25 03:18: K. pneumoniae group (PCR) Not detected, List. monocytogenes PCR Not detected 10/15/25 03:18: List. monocytogenes PCR Not detected, N. meningitidis (PCR) Not detected 10/15/25 03:18: N. meningitidis (PCR) Not detected, Proteus species (PCR) Not detected 10/15/25 03:18: Proteus species (PCR) Not detected, Salmonella spp. (PCR) Not detected 10/15/25 03:18: Salmonella spp. (PCR) Not detected, Serratia marcescens PCR Not detected 10/15/25 03:18: Serratia marcescens PCR Not detected, Staphylococcus sp PCR Not detected 10/15/25 03:18: Staphylococcus sp PCR Not detected, Staph aureus (PCR) Not detected 10/15/25 03:18: Staph aureus (PCR) Not detected, mecA/C & MREJ Resist Gene Not applicable 10/15/25 03:18: mecA/C & MREJ Resist Gene Not applicable, mecA/C-Methicil Resis Gene Not applicable 10/15/25 03:18: mecA/C-Methicil Resis Gene Not applicable, Staph epidermidis (PCR) Not detected 10/15/25 03:18: Staph epidermidis (PCR) Not detected, Staph lugdunensis (TEM-PCR) Not detected 10/15/25 03:18: Staph lugdunensis (TEM-PCR) Not detected, S. maltophilia (PCR) Not detected 10/15/25 03:18: S. maltophilia (PCR) Not detected, Streptococcus sp PCR Detected A 10/15/25 03:18: Streptococcus sp PCR Detected A, S.agalactiae Grp B EL Not detected 10/15/25 03:18: S.agalactiae Grp B EL Not detected, Strep pneumoniae (PCR) Detected A 10/15/25 03:18: Strep pneumoniae (PCR) Detected A, S. pyogenes GrpA EL Not detected 10/15/25 03:18: S. pyogenes GrpA EL Not detected, P. aeruginosa (PCR) Not detected 10/15/25 03:18: P. aeruginosa (PCR) Not detected, Shavonne/B-Vanco Res Genes Not applicable 10/15/25 03:18: Shavonne/B-Vanco Res Genes Not applicable, blaIMP Car res Gene PCR Not applicable 10/15/25 03:18: blaIMP Car res Gene PCR Not applicable, KPC-Carbap Res Gene PCR Not applicable 10/15/25 03:18: KPC-Carbap Res Gene PCR Not applicable, blaNDM Car Res Gene PCR Not applicable 10/15/25 03:18: blaNDM Car Res Gene PCR Not applicable, OXA-48 Carbapenem Resis Gene (PCR) Not applicable 10/15/25 03:18: OXA-48 Carbapenem Resis Gene (PCR) Not applicable, blaVIM Car Res Gene PCR Not applicable 10/15/25 03:18: blaVIM Car Res Gene PCR Not applicable, CTX-M Gene Resistance (PCR) Not applicable 10/15/25 03:18: CTX-M Gene Resistance (PCR) Not applicable, MCR-1 Resistance Gene Not applicable 10/15/25 03:18: MCR-1 Resistance Gene Not applicable 10/15/25 04:04: POC Glucose 188 H 10/15/25 06:18: WBC 1.2 L* D, RBC 4.22 L, Hgb 10.0 L D, Hct 33.8 L, MCV 80.1, MCH 23.9 L, MCHC 29.9 L, RDW 22.2 H, Plt Count 244, MPV 10.0, Neut % (Auto) 67.0, Lymph % (Auto) 24.6, Nolan % (Auto) 4.2, Eos % (Auto) 1.7, Baso % (Auto) 0.8, Neut # (Auto) 0.8 L*, Lymph # (Auto) 0.3 L, Nolan # (Auto) 0.1, Eos # (Auto) 0.0, Baso # (Auto) 0.0, Sodium 144, Potassium 2.9 L* D, Chloride 105, Carbon Dioxide 27, Anion Gap 14.9, BUN 31 H, Creatinine 1.20, Estimated Creat Clear 45, Estimated GFR 59, Est GFR ( Amer) 72, Glucose 159 H, Lactate 3.8 H, Calcium 8.3 L, Magnesium 1.9, Troponin I 0.02, Triglycerides 229 H, Cholesterol 249 H, LDL Cholesterol Direct 149.18 H, VLDL Cholesterol 46 H, HDL Cholesterol 67 H, Cholesterol/HDL Ratio 3.7 H 10/15/25 06:44: POC Glucose 167 H 10/15/25 08:45: Hgb 9.7 L, Hct 33.8 L, Lactate 4.7 H, C-Reactive Protein 67.1 H, Blood Type O Positive, Antibody Screen Negative 10/15/25 09:43: Hgb 10.1 L, Hct 35.8 L 10/15/25 10:57: POC Glucose 268 H 10/15/25 12:08: Sodium 141, Potassium 4.3 D, Chloride 107, Carbon Dioxide 19 L, Anion Gap 19.3 H, BUN 32 H, Creatinine 1.40 H, Estimated Creat Clear 38, Estimated GFR 50 L, Est GFR ( Amer) 60, Glucose 291 H D, Calcium 7.9 L 10/15/25 12:24: PT 10.7, INR 0.96 10/15/25 12:50: VBG pH 7.36, VBG pCO2 34.5 L, VBG pO2 96.8 H, VBG HCO3 18.8 L, VBG Total CO2 19.9 L, VBG O2 Saturation 96.8 H, VBG Base Excess -6.7 L, VBG Lactic Acid 4.9 H 10/15/25 16:56: POC Glucose 333 H* 10/15/25 : Urine Color Yellow, Urine Appearance Clear, Urine pH 6.0, Ur Specific [place] 1.010, Urine Protein 1+ A, Urine Glucose (UA) 2+, Urine Ketones Negative, Urine Blood 1+ A, Urine Nitrate Negative, Urine Bilirubin Negative, Urine Urobilinogen 0.2, Ur Leukocyte Esterase Negative, Urine RBC Occasional, Urine WBC 3-5, Ur Squamous Epith Cells Occasional, Urine Bacteria Trace Assessment and Plan *Assessment and plan (1) Nausea and vomiting: Status: Acute Category: Medical Code(s): R11.2 - Nausea with vomiting, unspecified (2) Diarrhea: Status: Acute Category: Medical Code(s): R19.7 - Diarrhea, unspecified (3) Volume depletion: Status: Acute Category: Medical Code(s): E86.9 - Volume depletion, unspecified (4) Dehydration: Status: Acute Category: Medical Code(s): E86.0 - Dehydration (5) Enteritis: Status: Acute Category: Medical Code(s): K52.9 - Noninfective gastroenteritis and colitis, unspecified Plan 1. Nausea/vomiting and diarrhea with volume depletion, dehydration and hypotension. This does not appear to be GI bleeding. Given his low-grade fever and symptoms, I do suspect enteritis/gastroenteritis. His PCR stool panel was negative. I would recommend slowly advancing diet with use of antiemetics. I would also recommend a probiotic presently and would advance to BRAT diet to low residue. The patient appears to be clinically improved with stable hemoglobin/hematocrit and vitals. I would continue fluid replacement and will reassess tomorrow for clinical improvement.
[2025-10-15 17:44] LABS: Lactic Acid Follow Up (RFLX 1) 4.9 mmol/L (0.7-2.1)
[2025-10-15 20:00] LABS: POC Glucose,Bedside 331 gm/dL (70-110)
[2025-10-15] MEDS: POTASSIUM CHLORIDE 20MEQ TAB 20 MEQ PO (20:21)
[2025-10-15] MEDS: TAMSULOSIN 0.4MG CAPSULE 0.4 MG PO (20:21)
[2025-10-15] MEDS: SODIUM CHLORIDE 0.45 % 1,000 ML 125 ML IV (21:45)
[2025-10-16] VITALS (75 sets, daily range): BP systolic 83–157; BP diastolic 49–95; PULSE 59–115; RESP 18–38; TEMP 36.3–37.5; O2SAT 90–98; BMI 24.8
[2025-10-16] MEDS: MELATONIN 5MG TABLET 10 MG PO (00:07)
[2025-10-16] MEDS: NOREPINEPHRINE BITARTRATE/D5W 8 MG/250 ML PLAST..BAG 45 MG IV (01:35)
[2025-10-16] MEDS: LORazepam 2MG/ML VIAL 0.25 MG IV (01:35)
[2025-10-16] MEDS: HALOPERIDOL LACTATE 5 MG/ML VIAL 2 MG IV (01:56)
[2025-10-16 03:41] LABS: Hematocrit 33.2 % (42.0-52.0); Hemoglobin 9.5 g/dL (14.1-18.0); Immature Granulocytes % 12.9 %; Mean Corpuscular HGB Conc 28.6 g/dL (31.8-35.4); Mean Corpuscular Hemoglobin 24.2 pg (27.0-31.2); Mean Corpuscular Volume 84.7 fl (80-94); Nucleated Red Blood Cells % 0.7 %; Platelet Count 255 K/mm3 (142-424); Red Blood Count 3.92 M/mm3 (4.60-6.20); Red Cell Distribution Width-SD 69.8 fL; White Blood Count 10.3 K/mm3 (4.8-10.8)
[2025-10-16 03:48] LABS: Albumin Level 3.2 g/dl (3.5-5.0); Chloride 106 mmol/L (98-107); Potassium 5.6 mmoL/L (3.5-5.1); Sodium 137 mmol/L (136-145)
[2025-10-16 03:51] LABS: Alkaline Phosphatase 76 U/L (38-126); Anion Gap 26.6 mEq/L (5-15); Bilirubin,Direct 0.3 mg/dl (0.0-0.4); Bilirubin,Indirect 0.4 mg/dL (0.0-0.9); Bilirubin,Total 0.7 mg/dl (0.2-1.3); Bilirubin,Unconjugated 0.4 mg/dL (0.0-1.1); Blood Urea Nitrogen 39 mg/dl (9-20); Calcium 7.4 mg/dl (8.4-10.2); Creatinine Clearance Estimated 32 mL/min (50-200); Creatinine,Serum 1.70 mg/dl (0.66-1.25); Estimated Glomerular Filt Rate 40 ml/min (>60); GFR (African American) 48 ML/MIN (>60); Glucose 246 mg/dl (74-100); Total Protein,Serum 5.6 g/dl (6.3-8.2)
[2025-10-16 04:06] LABS: Carbon Dioxide 10 mmol/L (22.0-30.0)
[2025-10-16 04:08] LABS: Alanine Aminotransferase 1719 U/L (12-78)
--- NOTE | 2025-10-16 04:38 | EXP.EVENT.NO ---
Notified by bedside RN around midnight the patient was having extreme restlessness needing to get up out of bed and walk. Patient is awake alert and oriented but appears agitated. Patient was thought to be likely agitated secondary to IV steroids so benzodiazepines given. Patient had approximately 2 hours of improved restlessness but patient noted to have some increased pallor and possible mottling of lower extremities but bedside RN. On bedside evaluation, patient is not complaining of any overt abdominal pain but does state that he is feels pretty terrible and has impending doom. He is able to answer all questions appropriately but is obviously uncomfortable. Repeat labs obtained and notable to have a lactic acid of 7.4 (prior 4.8 with admission lactic around 3 ) with increasing ALT to 1700. Patient has been able to be weaned down from Levophed from 24 mics down to 10 mics with systolic blood pressures in the 100s. Also noted to be still requiring Vasopressin as well. Spoke with Dr. Jaime given critical nature of the patient. Will initite Heparin gtt at this time without bolus, Will need ultrasound to rule out splenic or portal vein thrombus. On continued assessment, patient able to engage in normal conversation but still appearing restless. VBG obtained with a pH of 7.04 and CO2 of 8. Spoke with Dr. Jaime again and insulin gtt intitiaed as well as bicarb infusion 0600 Addendum: noted to have more abdominal distention than previous exam. KUB this am with air and likely ileus. NG tube placed with 300 cc of green gastric output with notable air as well. Patient is now off Levophed and vasopressin with improved peripheral circulation and improved color to skin. Current infusions Sodium bicarbonate infusion and half-normal saline Heparin infusion Insulin drip fixed rate 5 units with every 2 hour fingersticks Lactic acid improved to 6.1, pH improved to 7.23 Pt remains restless, at bedside and plan of care updated. Dr. Jaime aware of events up to this signing of this note.
[2025-10-16] MEDS: PIPERACILLIN/TAZO 3.375 GM in 0.9 % SODIUM CHLORIDE 50 ML IV ×3 (04:39→16:32)
[2025-10-16 04:44] LABS: Aspartate Amino Transferase 2453 U/L (17-59)
[2025-10-16] MEDS: 0.9 % SODIUM CHLORIDE 1000ML 500 ML 999 ML IV (04:48)
[2025-10-16] MEDS: VASOPRESSIN 40 UNIT in 0.9 % SODIUM CHLORIDE 100 ML 6.12 UNIT IV (04:51)
[2025-10-16 04:55] LABS: VBG HCO3 8.8 mmol/L (23-30); VBG PCO2 31.1 mmol/L (35-51); VBG PO2 62.4 mmol/L (28-40)
[2025-10-16 04:58] LABS: Lactate Venous 8.6 mmol/L (0.4-2.0); VBG PH 7.07 mmol/L (7.31-7.41)
[2025-10-16 05:13] LABS: PTT Heparin (inpatient only) 27.8 Seconds (50-75)
[2025-10-16] MEDS: HEPARIN DRIP CONSULT 1 EACH NOTAPPLIC (05:23)
[2025-10-16] MEDS: INSULIN REGULAR, HUMAN 100 UNIT in 0.9 % SODIUM CHLORIDE 100 ML 5.05 UNIT IV (05:26)
[2025-10-16] MEDS: SODIUM BICARBONATE 100 MEQ in SODIUM CHLORIDE 0.45 % 1,000 ML IV ×2 (05:34→16:33)
[2025-10-16 05:36] LABS: POC Glucose,Bedside 279 gm/dL (70-110)
[2025-10-16] MEDS: LORazepam 2MG/ML VIAL 0.5 MG IV (05:36)
--- NOTE | 2025-10-16 05:38 | XR_ITS ---
PROCEDURE INFORMATION: Exam: XR Abdomen Exam date and time: 10/16/2025 5:34 AM Age: 75 years old Clinical indication: Bloating; Additional info: Abdominal distention TECHNIQUE: Imaging protocol: Radiologic exam of the abdomen. Views: Frontal supine view of the abdomen. 1 View. COMPARISON: CT ANGIO ABDOMEN PELVIS 10/15/2025 1:29 AM FINDINGS: Gastrointestinal tract: There is mild gaseous distension of the stomach. There are minimally dilated, gas-filled loops of small bowel most likely representing an ileus. Intraperitoneal space: No visible intra-abdominal free air. Bones/joints: Multilevel chronic degenerative changes throughout the spine and hips. No acute osseous lesions appreciated. IMPRESSION: Probable ileus.
[2025-10-16] MEDS: HEPARIN SODIUM,PORCINE/D5W 500 ML 21 UNIT IV (05:44)
[2025-10-16 06:14] LABS: INR 1.16 (0.9-1.1); Prothrombin Time 12.7 seconds (10.1-12.5)
--- NOTE | 2025-10-16 06:17 | XR_ITS ---
FINAL REPORT CLINICAL HISTORY: NG tube placement COMPARISON: 40 minutes prior FINDINGS: SINGLE VIEW ABDOMEN A single view of the abdomen was obtained. There has been interval placement of an NG tube with the tip located in the stomach. The stomach is decompressed. There are a few air-filled loops of small bowel with a nonobstructive pattern. No abnormal calcifications are identified. IMPRESSION: NG tube tip in the stomach. Reviewed, Interpreted and Dictated by Issac Hung MD Transcribed by Bev Fortune Authenticated and [facility]
[2025-10-16 06:35] LABS: Hypochromasia 1+; Total Cells Counted 100
[2025-10-16 06:36] LABS: POC Glucose,Bedside 270 gm/dL (70-110)
[2025-10-16 06:38] LABS: Lactate Arterial 6.1 mmol/L (0.4-2.0)
--- NOTE | 2025-10-16 06:38 | PC.NURSE ---
reported critical lactic 6.06 to Shauna Walker APRN
[2025-10-16 06:39] LABS: ABG HCO3 11.9 mmhg (22.0-26.0); ABG PCO2 29.3 mmhg (35.0-45.0); ABG PH 7.23 mmol/L (7.35-7.45); ABG PO2 88.0 mmhg (80-100)
[2025-10-16 06:40] LABS: ABG TCO2 12.8 mmhg (23-27); Source R RADIAL
--- NOTE | 2025-10-16 06:54 | P.PN_ITS ---
<Statement entered by Francesco Carvajal MD - 10/16/25 11:10> Rounded on patient after nurse practitioner. Personally reviewed chart. Agree with exam findings and care plan as documented. Critical Care Event Note Summary Code activated: No Narrative: This case had a high probability of a clinically significant, sudden, or life threatening deterioration of this patient's condition which required my full and direct attention, intervention and personal management. Notified by bedside RN around midnight the patient was having extreme restlessness needing to get up out of bed and walk. Patient is awake alert and oriented but appears agitated. Patient was thought to be likely agitated secondary to IV steroids so benzodiazepines given. Patient had approximately 2 hours of improved restlessness but patient noted to have some increased pallor and possible mottling of lower extremities but bedside RN. On bedside evaluation, patient is not complaining of any overt abdominal pain but does state that he is feels pretty terrible and has impending doom. He is able to answer all questions appropriately but is obviously uncomfortable. Repeat labs obtained and notable to have a lactic acid of 7.4 (prior 4.8 with admission lactic around 3 ) with increasing ALT to 1700. Patient has been able to be weaned down from Levophed from 24 mics down to 10 mics with systolic blood pressures in the 100s. Also noted to be still requiring Vasopressin as well. Spoke with Dr. Jaime given critical nature of the patient. Will initite Heparin gtt at this time without bolus, Will need ultrasound to rule out splenic or portal vein thrombus. On continued assessment, patient able to engage in normal conversation but still appearing restless. VBG obtained with a pH of 7.04 and CO2 of 8. Spoke with Dr. Jaime again and insulin gtt intitiaed as well as bicarb infusion 0600 Addendum: noted to have more abdominal distention than previous exam. KUB this am with air and likely ileus. NG tube placed with 300 cc of green gastric output with notable air as well. Patient is now off Levophed and vasopressin with improved peripheral circulation and improved color to skin. Current infusions Sodium bicarbonate infusion and half-normal saline Heparin infusion Insulin drip fixed rate 5 units with every 2 hour fingersticks Lactic acid improved to 6.1, pH improved to 7.23 Pt remains restless, at bedside and plan of care updated. Dr. Jaime aware of events up to this signing of this note. ICU/Critical care attestation This patient is critically ill with 115 minutes devoted solely to this patient managing life/organ supporting interventions that required physician assessment. This includes time spent making adjustments in ventilator settings, IV fluid administration, titration of pressors, adjustments of medications, discussion of patient with consultants and other care providers as well as updating patient and/or family (if patient by virtue of his/her condition is unable to participate in decision making). This does not include time spent performing separately billed procedures. Time is not concurrent with that of other providers. Critical care time: 105 - 134 mins (115) [facility] Critical Care Exam Physical Exam Vital signs: Temp Pulse Resp BP Pulse Ox O2 Del Method O2 Flow Rate 97.3 F L 106 H 30 H 128/67 96 Nasal Cannula 2 10/16/25 04:00 10/16/25 06:00 10/16/25 06:00 10/16/25 06:00 10/16/25 06:00 10/16/25 06:00 10/16/25 06:00 Constitutional Constitutional: Present moderate distress and disheveled Routine HEENT Exam Head: Present normocephalic and atraumatic Eye: Present PERRL ENT: Present mucous membranes dry Routine Abdominal Exam Abdominal: Present distended Routine Extremities Exam Extremities: Present clubbing and pulses intact; Absent normal capillary refill (>4) Routine Skin Exam Skin: Present pallor and mottling (BLE) Routine Neurological Exam Neurological: Present oriented X3 Comments: Agitation noted
[2025-10-16 07:21] LABS: Hematocrit 27.9 % (42.0-52.0); Immature Granulocytes % 12.1 %; Mean Corpuscular HGB Conc 29.4 g/dL (31.8-35.4); Mean Corpuscular Hemoglobin 24.3 pg (27.0-31.2); Mean Corpuscular Volume 82.5 fl (80-94); Nucleated Red Blood Cells % 0.3 %; Platelet Count 188 K/mm3 (142-424); Red Blood Count 3.38 M/mm3 (4.60-6.20); Red Cell Distribution Width-SD 66.4 fL; White Blood Count 11.0 K/mm3 (4.8-10.8)
[2025-10-16 07:24] LABS: Hemoglobin 8.2 g/dL (14.1-18.0)
--- NOTE | 2025-10-16 07:27 | PC.NURSE ---
Addendum entered by Brie Alejo RN 10/16/25 07:45: Levophed and vasopressin gtt able to be titrated down and put on hold for about 1 hour this AM. Levophed restarted this AM due to MAP <60. Original Note: Pt AOx4 at beginning of shift. Pt has progressively became more confused throughout shift. Shauna Walker notified and PRN medication administered with little result. Around 0300 pt became only oriented to person and was attempting to get out of bed and pull at tubes and becoming combative with staff. Pt stating he is going to multiple times. Shauna Walker notified who also notified Annangi. Orders to get CBC, BMP, lactic, liver panel, VBG. Critical results called to Shauna Walker.
--- NOTE | 2025-10-16 07:36 | PC.NURSE ---
Around 0500, pt abdomen noted to be distended. KUB ordered per Shauna Walker. 14F NG inserted into left nare at 64cm.
[2025-10-16 07:40] LABS: Reflex Lactic Add Lactic Reflex
--- NOTE | 2025-10-16 07:43 | PC.NURSE ---
0655 Pt noted to have blood in suction tube of NG. notified. Heparin gtt stopped. NG removed from suction.
[2025-10-16 07:50] LABS: PTT Heparin (inpatient only) 28.3 Seconds (50-75)
[2025-10-16 08:03] LABS: Albumin Level 3.0 g/dl (3.5-5.0); Chloride 106 mmol/L (98-107); Potassium 5.3 mmoL/L (3.5-5.1); Sodium 138 mmol/L (136-145)
[2025-10-16 08:06] LABS: Albumin/Globulin Ratio 1.2 (1.1-1.8); Alkaline Phosphatase 75 U/L (38-126); Anion Gap 26.3 mEq/L (5-15); Bilirubin,Total 0.7 mg/dl (0.2-1.3); Blood Urea Nitrogen 44 mg/dl (9-20); Calcium 6.7 mg/dl (8.4-10.2); Carbon Dioxide 11 mmol/L (22.0-30.0); Creatinine Clearance Estimated 31 mL/min (50-200); Creatinine,Serum 1.90 mg/dl (0.66-1.25); Estimated Glomerular Filt Rate 35 ml/min (>60); GFR (African American) 42 ML/MIN (>60); Globulin 2.5 g/dL (1.3-3.2); Glucose 172 mg/dl (74-100); Total Protein,Serum 5.5 g/dl (6.3-8.2)
[2025-10-16 08:17] LABS: Ammonia < 9 umol/L (9-30)
[2025-10-16] MEDS: PROMETHAZINE HCL 25MG/ML 1ML VIAL 12.5 MG IV (08:21)
[2025-10-16 08:31] LABS: Lactic Acid Follow Up (RFLX 1) 5.3 mmol/L (0.7-2.1)
--- NOTE | 2025-10-16 08:39 | PC.NURSE ---
Verbal orders received from Doretha Burns. Refer to MAR. Continuation of care plan.
--- NOTE | 2025-10-16 08:40 | PC.NURSE ---
Doretha Burns at bedside. Patients critcial lactic of 5.3. Doretha Burns notified. No new orders received. Continuation of care plan.
[2025-10-16 08:43] LABS: Alanine Aminotransferase 2794 U/L (12-78)
[2025-10-16 09:00] LABS: POC Glucose,Bedside 205 gm/dL (70-110)
[2025-10-16 09:00] LABS: POC Glucose,Bedside 122 gm/dL (70-110)
[2025-10-16] MEDS: LACTOBACILLUS PROBIOTIC COMB CAPSULE 1 CAP PO (09:03)
[2025-10-16] MEDS: ITRACONAZOLE 100MG CAPSULE 200 MG PO (09:03)
--- NOTE | 2025-10-16 09:03 | HMH.PHAAMS2 ---
- Antimicrobial Stewardship Review culture & sensitivity review Stewardship interventions: culture & sensitivity review, reviewed - no change Comments: BLOOD CULTURE STILL PENDING, GRAM + COCCI, CONTINUE EMPIRIC THERAPY
--- NOTE | 2025-10-16 09:12 | EXP.ACUTE.PN ---
Subjective *Date: 10/16/25 *Time: 09:12 Interval history: Patient had a rough night and became critical. See event note. He has been restless. He denies any pain this am other than in his low abdomen. He is confused. Medical Exam Vital signs and Labs for Last 24 Hours: Vital Signs Temp Pulse Resp BP Pulse Ox O2 Del Method O2 Flow Rate 10/16/25 09:01 112 H 22 129/87 91 L Nasal Cannula 2 10/16/25 08:51 115 H 22 125/78 91 L Nasal Cannula 2 10/16/25 08:41 110 H 20 105/81 L 91 L Nasal Cannula 2 10/16/25 08:30 106 H 22 123/85 94 L Nasal Cannula 2 10/16/25 08:20 106 H 22 133/80 93 L Nasal Cannula 2 10/16/25 08:10 108 H 25 H 93 L Nasal Cannula 2 10/16/25 08:03 107 H 22 140/83 92 L Nasal Cannula 2 10/16/25 07:50 97.5 F L 111 H 24 123/90 92 L Nasal Cannula 2 10/16/25 07:49 94 L Nasal Cannula 2 10/16/25 07:45 107 H 25 H 93 L 10/16/25 07:44 107 H 25 H 93 L 10/16/25 07:44 116/73 10/16/25 07:41 113 H 24 152/80 H 10/16/25 07:27 111 H 24 135/80 90 L Nasal Cannula 2 10/16/25 07:00 Nasal Cannula 2 10/16/25 06:59 106 H 29 H 108/59 L 93 L 10/16/25 06:52 83/55 L 10/16/25 06:00 106 H 30 H 128/67 96 Nasal Cannula 2 10/16/25 05:40 147/91 H 10/16/25 05:31 149/85 H 10/16/25 05:21 113/62 10/16/25 05:15 157/71 H 10/16/25 05:00 Nasal Cannula 2 10/16/25 05:00 91 H 27 H 117/71 98 Nasal Cannula 2 10/16/25 04:50 136/74 10/16/25 04:41 130/87 10/16/25 04:30 129/86 10/16/25 04:00 91 H 10/16/25 04:00 93 L Nasal Cannula 2 10/16/25 04:00 97.3 F L 89 38 H 90/66 L 95 Nasal Cannula 2 10/16/25 03:00 Room Air 10/16/25 02:58 98 H 26 H 110/68 96 10/16/25 02:35 98 H 25 H 109/58 L 95 Room Air 10/16/25 02:28 148/87 H 10/16/25 02:20 147/83 H 10/16/25 02:15 157/95 H 10/16/25 01:57 91 H 32 H 141/84 H 97 Room Air 10/16/25 01:45 119/83 10/16/25 01:00 59 L 29 H 105/66 L 93 L Room Air 10/16/25 01:00 Room Air 10/16/25 00:07 93 H 10/16/25 00:00 98.0 F 95 H 22 97/63 L 95 Room Air 10/16/25 00:00 95 Room Air 10/15/25 23:00 96 H 24 93/62 L 95 Room Air 10/15/25 22:48 Room Air 10/15/25 22:00 99 H 23 103/70 L 95 Room Air 10/15/25 21:01 96 H 23 101/64 L 96 Room Air 10/15/25 21:00 Room Air 10/15/25 20:45 103/63 L 10/15/25 20:15 97.6 F 90 23 97/61 L 97 Room Air 10/15/25 20:00 100 H 10/15/25 20:00 97 Room Air 10/15/25 19:00 99 H 26 H 92/56 L 97 Room Air 10/15/25 18:45 96 H 29 H 93/65 L 10/15/25 18:37 Room Air 10/15/25 18:32 88 42 H 119/89 91 L Room Air 10/15/25 18:15 94 H 24 102/63 L 96 Room Air 10/15/25 18:00 97.3 F L 95 H 23 97/65 L 97 Room Air 10/15/25 17:45 96 H 31 H 93/71 L 95 Room Air 10/15/25 17:31 100 H 38 H 99/59 L 94 L Room Air 10/15/25 17:15 100/64 L 10/15/25 17:00 98 H 30 H 103/65 L 96 Room Air 10/15/25 17:00 Room Air 10/15/25 16:45 94 H 23 102/65 L 96 Room Air 10/15/25 16:30 96 H 22 97/55 L 96 Room Air 10/15/25 16:15 95 H 31 H 96/51 L 96 Room Air 10/15/25 16:00 99 H 32 H 98/47 L 95 Room Air 10/15/25 16:00 100 H 10/15/25 16:00 Room Air 10/15/25 15:45 96 H 22 105/64 L 95 Room Air 10/15/25 15:25 97 H 23 95/58 L 96 Room Air 10/15/25 15:20 98 H 27 H 92/52 L 95 Room Air 10/15/25 15:19 98 H 24 90/55 L 96 Room Air 10/15/25 15:10 105 H 23 84/62 L 91 L Room Air 10/15/25 15:05 100 H 26 H 105/64 L 96 Room Air 10/15/25 15:00 Room Air 10/15/25 15:00 103 H 31 H 101/57 L 96 Room Air 10/15/25 14:55 102 H 27 H 91/52 L 96 Room Air 10/15/25 14:50 101 H 25 H 93/54 L 96 Room Air 10/15/25 14:45 101 H 21 89/42 L 94 L Room Air 10/15/25 14:40 99 H 21 79/41 L 94 L Room Air 10/15/25 14:30 105 H 28 H 81/46 L 93 L Room Air 10/15/25 14:25 102 H 23 82/50 L 95 Room Air 10/15/25 14:20 105 H 27 H 78/43 L 94 L Room Air 10/15/25 14:15 105 H 28 H 82/53 L 94 L Room Air 10/15/25 14:10 104 H 24 85/47 L 94 L Room Air 10/15/25 14:06 95 H 29 H 82/50 L 10/15/25 14:00 122 H 31 H 109/58 L 93 L Room Air 10/15/25 13:55 102 H 24 97/53 L 94 L Room Air 10/15/25 13:50 106 H 25 H 85/59 L 94 L Room Air 10/15/25 13:45 105 H 26 H 99/55 L 94 L Room Air 10/15/25 13:40 105 H 24 87/52 L 94 L Room Air 10/15/25 13:35 105 H 26 H 86/46 L 94 L Room Air 10/15/25 13:30 104 H 20 94/52 L 94 L Room Air 10/15/25 13:25 105 H 21 81/50 L 94 L Room Air 10/15/25 13:20 106 H 21 73/48 L 94 L Room Air 10/15/25 13:16 110 H 10/15/25 13:15 105 H 27 H 90/43 L 97 Room Air 10/15/25 13:10 105 H 19 87/53 L 97 Room Air 10/15/25 13:05 107 H 24 86/49 L 95 Room Air 10/15/25 13:00 104 H 26 H 81/48 L 95 Room Air 10/15/25 13:00 Room Air 10/15/25 12:55 103 H 22 92/52 L 96 Room Air 10/15/25 12:50 116 H 26 H 80/44 L 95 Room Air 10/15/25 12:45 102 H 24 74/44 L 95 Room Air 10/15/25 12:40 105 H 22 84/47 L 94 L Room Air 10/15/25 12:35 103 H 22 92/51 L 96 Room Air 10/15/25 12:30 102 H 23 91/56 L 95 10/15/25 12:25 103 H 23 88/50 L 96 Room Air 10/15/25 12:20 106 H 25 H 101/53 L 95 Room Air 10/15/25 12:15 98.3 F 106 H 26 H 92/53 L 95 Room Air 10/15/25 12:10 106 H 25 H 93/51 L 94 L Room Air 10/15/25 12:05 105 H 25 H 91/51 L 95 Room Air 10/15/25 12:00 110 H 10/15/25 12:00 Room Air 10/15/25 12:00 105 H 24 81/41 L 95 Room Air 10/15/25 11:55 105 H 28 H 92/48 L 95 Room Air 10/15/25 11:52 102 H 22 97/50 L 96 Room Air 10/15/25 11:00 Nasal Cannula 2 Intake and Output 10/15/25 10/16/25 10/16/25 19:59 03:59 11:59 Intake Total 1575.917 / 4117.666 824.25 / 4117.666 1717.499 / 4117.666 Output Total 650 / 920 270 / 920 Balance 925.917 / 3197.666 554.25 / 3197.666 1717.499 / 3197.666 Intake: Intake, Oral Amount 118 / 598 480 / 598 Intake, Total IV Amount 1457.917 / 3519.666 344.25 / 3519.666 1717.499 / 3519.666 0.9 % Sodium Chloride 1000ML 1, 756.667 / 756.667 000 ml @ 100 mls/hr IV .Q10H [facility] Rx#:[id number] 0.9 % Sodium Chloride 1000ML 500 / 500 500 ml @ 999 mls/hr IV .Q31M [facility] Rx#:[id number] Heparin Sodium,Porcine/D5w 500 25.9 / 25.9 ml @ 1,050 UNITS/HR 21 mls/hr IV .[id number] [facility] Rx#:[id number] Insulin Regular, Human 100 unit 16.581 / 16.581 In 0.9 % Sodium Chloride 100 ml @ 5 UNIT/HR 5.05 mls/hr IV . Q20H [facility] Rx#:[id number] Norepinephrine Bitartrate/D5w 8 401.25 / 729.407 294.25 / 729.407 33.907 / 729.407 mg In 250 ml @ 22 MCG/MIN 41. 25 mls/hr IV .Q6H4M [facility] Rx#: [id number] Piperacillin/Tazo 3.375 gm In 0 50 / 150 50 / 150 50 / 150 .9 % Sodium Chloride 50 ml @ 100 mls/hr IV Q6H [facility] Rx#: [id number] Sodium Chloride 0.45 % 1,000 ml 1000 / 1000 @ 125 mls/hr IV .Q8H [facility] Rx#: [id number] Vancomycin HCl 1,000 mg In 0.9 250 / 250 % Sodium Chloride 250 ml @ 125 mls/hr IV Q24H [facility] Rx#:[id number] Vasopressin 40 unit In 0.9 % 91.111 / 91.111 Sodium Chloride 100 ml @ 0.04 UNITS/MIN 6.12 mls/hr IV . [id number] [facility] Rx#:[id number] Output: Output, Urine Amount 650 / 920 270 / 920 Other: Number of Unmeasured Voids 2 Number of Bowel Movements 1 1 1 Weight 140 lb 7 oz Patient Weight 10/16/25 11:59 Weight 140 lb 7 oz Laboratory Results - last 24 hr 10/15/25 03:18: A. baumannii (PCR) Not detected 10/15/25 03:18: A. baumannii (PCR) Not detected, Bacteroides fragilis Not detected 10/15/25 03:18: Bacteroides fragilis Not detected, Rupali albicans (PCR) Not detected 10/15/25 03:18: Rupali albicans (PCR) Not detected, Rupali auris (PCR) Not detected 10/15/25 03:18: Rupali auris (PCR) Not detected, C. glabrata (PCR) Not detected 10/15/25 03:18: C. glabrata (PCR) Not detected, C. krusei (PCR) Not detected 10/15/25 03:18: C. krusei (PCR) Not detected, C. parapsilosis (PCR) Not detected 10/15/25 03:18: C. parapsilosis (PCR) Not detected, C. tropicalis (PCR) Not detected 10/15/25 03:18: C. tropicalis (PCR) Not detected, Cryptococcus neoformans PCR Not detected 10/15/25 03:18: Cryptococcus neoformans PCR Not detected, Enterobacterales (PCR) Not detected 10/15/25 03:18: Enterobacterales (PCR) Not detected, Enterococc faecalis PCR Not detected 10/15/25 03:18: Enterococc faecalis PCR Not detected, Enterococc faecium PCR Not detected 10/15/25 03:18: Enterococc faecium PCR Not detected, E. coli (PCR) Not detected 10/15/25 03:18: E. coli (PCR) Not detected, H. influenzae DNA Not detected 10/15/25 03:18: H. influenzae DNA Not detected, Klebsiella aerogenes (PCR) Not detected 10/15/25 03:18: Klebsiella aerogenes (PCR) Not detected, Klebsiella oxytoca PCR Not detected 10/15/25 03:18: Klebsiella oxytoca PCR Not detected, K. pneumoniae group (PCR) Not detected 10/15/25 03:18: K. pneumoniae group (PCR) Not detected, List. monocytogenes PCR Not detected 10/15/25 03:18: List. monocytogenes PCR Not detected, N. meningitidis (PCR) Not detected 10/15/25 03:18: N. meningitidis (PCR) Not detected, Proteus species (PCR) Not detected 10/15/25 03:18: Proteus species (PCR) Not detected, Salmonella spp. (PCR) Not detected 10/15/25 03:18: Salmonella spp. (PCR) Not detected, Serratia marcescens PCR Not detected 10/15/25 03:18: Serratia marcescens PCR Not detected, Staphylococcus sp PCR Not detected 10/15/25 03:18: Staphylococcus sp PCR Not detected, Staph aureus (PCR) Not detected 10/15/25 03:18: Staph aureus (PCR) Not detected, mecA/C & MREJ Resist Gene Not applicable 10/15/25 03:18: mecA/C & MREJ Resist Gene Not applicable, mecA/C-Methicil Resis Gene Not applicable 10/15/25 03:18: mecA/C-Methicil Resis Gene Not applicable, Staph epidermidis (PCR) Not detected 10/15/25 03:18: Staph epidermidis (PCR) Not detected, Staph lugdunensis (TEM-PCR) Not detected 10/15/25 03:18: Staph lugdunensis (TEM-PCR) Not detected, S. maltophilia (PCR) Not detected 10/15/25 03:18: S. maltophilia (PCR) Not detected, Streptococcus sp PCR Detected A 10/15/25 03:18: Streptococcus sp PCR Detected A, S.agalactiae Grp B EL Not detected 10/15/25 03:18: S.agalactiae Grp B EL Not detected, Strep pneumoniae (PCR) Detected A 10/15/25 03:18: Strep pneumoniae (PCR) Detected A, S. pyogenes GrpA EL Not detected 10/15/25 03:18: S. pyogenes GrpA EL Not detected, P. aeruginosa (PCR) Not detected 10/15/25 03:18: P. aeruginosa (PCR) Not detected, Shavonne/B-Vanco Res Genes Not applicable 10/15/25 03:18: Shavonne/B-Vanco Res Genes Not applicable, blaIMP Car res Gene PCR Not applicable 10/15/25 03:18: blaIMP Car res Gene PCR Not applicable, KPC-Carbap Res Gene PCR Not applicable 10/15/25 03:18: KPC-Carbap Res Gene PCR Not applicable, blaNDM Car Res Gene PCR Not applicable 10/15/25 03:18: blaNDM Car Res Gene PCR Not applicable, OXA-48 Carbapenem Resis Gene (PCR) Not applicable 10/15/25 03:18: OXA-48 Carbapenem Resis Gene (PCR) Not applicable, blaVIM Car Res Gene PCR Not applicable 10/15/25 03:18: blaVIM Car Res Gene PCR Not applicable, CTX-M Gene Resistance (PCR) Not applicable 10/15/25 03:18: CTX-M Gene Resistance (PCR) Not applicable, MCR-1 Resistance Gene Not applicable 10/15/25 03:18: MCR-1 Resistance Gene Not applicable 10/15/25 08:45: Lactate 4.7 H, C-Reactive Protein 67.1 H, Blood Type O Positive, Antibody Screen Negative 10/15/25 09:43: Hgb 10.1 L, Hct 35.8 L 10/15/25 10:57: POC Glucose 268 H 10/15/25 12:08: Sodium 141, Potassium 4.3 D, Chloride 107, Carbon Dioxide 19 L, Anion Gap 19.3 H, BUN 32 H, Creatinine 1.40 H, Estimated Creat Clear 38, Estimated GFR 50 L, Est GFR ( Amer) 60, Glucose 291 H D, Calcium 7.9 L 10/15/25 12:24: PT 10.7, INR 0.96 10/15/25 12:50: VBG pH 7.36, VBG pCO2 34.5 L, VBG pO2 96.8 H, VBG HCO3 18.8 L, VBG Total CO2 19.9 L, VBG O2 Saturation 96.8 H, VBG Base Excess -6.7 L, VBG Lactic Acid 4.9 H 10/15/25 16:56: POC Glucose 333 H* 10/15/25 17:08: Lactate 4.9 H 10/15/25 19:50: POC Glucose 331 H* 10/15/25 : Urine Color Yellow, Urine Appearance Clear, Urine pH 6.0, Ur Specific [place] 1.010, Urine Protein 1+ A, Urine Glucose (UA) 2+, Urine Ketones Negative, Urine Blood 1+ A, Urine Nitrate Negative, Urine Bilirubin Negative, Urine Urobilinogen 0.2, Ur Leukocyte Esterase Negative, Urine RBC Occasional, Urine WBC 3-5, Ur Squamous Epith Cells Occasional, Urine Bacteria Trace 10/16/25 03:30: WBC 10.3 D, RBC 3.92 L, Hgb 9.5 L, Hct 33.2 L, MCV 84.7, MCH 24.2 L, MCHC 28.6 L, RDW 23.0 H, Plt Count 255, MPV 10.8 H, Neut % (Auto) 80.1 H, Lymph % (Auto) 3.4 L, [place] % (Auto) 3.5, Eos % (Auto) 0.0 L, Baso % (Auto) 0.1, Neut # (Auto) 8.3 H, Lymph # (Auto) 0.4 L, [place] # (Auto) 0.4, Eos # (Auto) 0.0, Baso # (Auto) 0.0, Total Counted 100, Neutrophils % (Manual) 75, Lymphocytes % (Manual) 25, Platelet Estimate Normal, RBC Morphology Not Reportable, Hypochromasia 1+, Sodium 137, Potassium 5.6 H D, Chloride 106, Carbon Dioxide 10 L D, Anion Gap 26.6 H, BUN 39 H, Creatinine 1.70 H D, Estimated Creat Clear 32, Estimated GFR 40 L, Est GFR ( Amer) 48 L, Glucose 246 H, Lactate 7.4 H, Calcium 7.4 L, Total Bilirubin 0.7, Direct Bilirubin 0.3, Conjugated Bilirubin 0.0, Indirect Bilirubin 0.4, Unconjugated Bilirubin 0.4, AST 2453 H* D, ALT 1719 H*, Alkaline Phosphatase 76, Total Protein 5.6 L, Albumin 3.2 L D 10/16/25 04:46: PT 12.7 H, INR 1.16 H, APTT 27.8 L, VBG pH 7.07 L, VBG pCO2 31.1 L, VBG pO2 62.4 H, VBG HCO3 8.8 L, VBG Total CO2 9.8 L, VBG O2 Saturation 83.6 H, VBG Base Excess -21.3 L, VBG Lactic Acid 8.6 H 10/16/25 05:30: POC Glucose 279 H 10/16/25 06:00: Specimen Source R radial, O2 % 6lpm, ABG pH 7.23 L*, ABG pCO2 29.3 L, ABG pO2 88.0, ABG HCO3 11.9 L, ABG Total CO2 12.8 L, ABG O2 Saturation 95, ABG Base Excess -15.8 L, Mahad Test N/a, ABG Lactate 6.1 H 10/16/25 06:28: POC Glucose 270 H 10/16/25 07:15: WBC 11.0 H, RBC 3.38 L, Hgb 8.2 L D, Hct 27.9 L, MCV 82.5, MCH 24.3 L, MCHC 29.4 L, RDW 22.4 H, Plt Count 188 D, MPV 9.8, Neut % (Auto) 82.3 H, Lymph % (Auto) 3.2 L, [place] % (Auto) 1.7, Eos % (Auto) 0.0 L, Baso % (Auto) 0.7, Neut # (Auto) 9.0 H, Lymph # (Auto) 0.4 L, [place] # (Auto) 0.2, Eos # (Auto) 0.0, Baso # (Auto) 0.1, APTT 28.3 L, Sodium 138, Potassium 5.3 H, Chloride 106, Carbon Dioxide 11 L, Anion Gap 26.3 H, BUN 44 H, Creatinine 1.90 H, Estimated Creat Clear 31, Estimated GFR 35 L, Est GFR ( Amer) 42 L, Glucose 172 H D, Calcium 6.7 L, Total Bilirubin 0.7, ALT 2794 H*, Alkaline Phosphatase 75, Total Protein 5.5 L, Albumin 3.0 L, Globulin 2.5, Albumin/Globulin Ratio 1.2 10/16/25 07:28: POC Glucose 205 H 10/16/25 07:45: Lactate 5.3 H, Ammonia < 9 L 10/16/25 08:28: POC Glucose 122 H I & O for Labs for Last 24 Hours: Intake & Output 10/13/25 10/14/25 10/15/25/12/25 11:59 11:59 11:59 11:59 Intake Total 3378.187 / 3378.187 4117.666 / 4117.666 Output Total 225 / 225 920 / 920 Balance 3153.187 / 3153.187 3197.666 / 3197.666 Weight 129 lb 4.782 oz 140 lb 7 oz Microbiology Reports for the Last 24 Hours: Microbiology 10/15/25 03:18 Blood Blood Culture - Preliminary Gram Positive Cocci 10/15/25 03:18 Blood Blood Culture - Preliminary Gram Positive Cocci Constitutional: Present mild distress and agitated Respiratory: Present CTA bilaterally Cardiac: Present Reg Rate and Rhythm GI: Present soft and tenderness (lower abdomen); Absent distention or guarding Extremities: Absent edema Skin: Present intact Neuro: Present Other (confused, agitated) Assessment and Plan *Assessment and plan (1) Severe sepsis without septic shock: Status: Acute Category: Medical Code(s): A41.9 - Sepsis, unspecified organism; R65.20 - Severe sepsis without septic shock (2) Nausea, vomiting, and diarrhea: Status: Acute Category: Medical Code(s): R11.2 - Nausea with vomiting, unspecified; R19.7 - Diarrhea, unspecified (3) Abdominal pain: Status: Acute Category: Medical Code(s): R10.9 - Unspecified abdominal pain (4) Duodenitis: Status: Acute Category: Medical Code(s): K29.80 - Duodenitis without bleeding (5) Portal hypertension: Status: Acute Category: Medical Code(s): K76.6 - Portal hypertension (6) Diabetes: Status: Chronic Qualifiers: Diabetes mellitus type: type 2 Diabetes mellitus terminal gauger insulin use: with terminal gauger use Diabetes mellitus complication status: without complication Qualified Code(s): E11.9 - Type 2 diabetes mellitus without complications; Z79.4 - penitentiary (current) use of insulin Category: Medical Code(s): E11.9 - Type 2 diabetes mellitus without complications (7) Hypertension: Status: Chronic Qualifiers: Hypertension type: essential hypertension Qualified Code(s): I10 - Essential (primary) hypertension Category: Medical Code(s): I10 - Essential (primary) hypertension (8) Elevated liver enzymes: Status: Acute Category: Medical Code(s): R74.8 - Abnormal levels of other serum enzymes Plan He has been weaned off of the levophed and vasopressin drips. Pulmonology was called during the night due to his critical nature and he initited Heparin gtt and ordered an ultrasound to rule out splenic or portal vein thrombus. He also ordered a bicarb infusion as well. An NG was placed due to abdominal distention and possible ileus on KUB. He has had some bleeding from the NG. Will give some ativan this am for restlessness and start back on IVF's. Will discuss further care with Dr. Almanzar.
[2025-10-16 09:21] LABS: Aspartate Amino Transferase 4315 U/L (17-59)
--- NOTE | 2025-10-16 09:25 | P.PN_ITS ---
Subjective *Date: 10/16/25 *Time: 10:18 Interval history: No acute respiratory vents overnight. Worsening mentation renal function and transaminitis Pulmonology Exam Inpatient Vital signs and Labs for Last 24 Hours: Temp Pulse Resp BP Pulse Ox O2 Del Method O2 Flow Rate 97.5 F L 112 H 22 129/87 91 L Nasal Cannula 2 10/16/25 07:50 10/16/25 09:01 10/16/25 09:01 10/16/25 09:01 10/16/25 09:01 10/16/25 09:01 10/16/25 09:01 Laboratory Results - last 24 hr 10/15/25 03:18: A. baumannii (PCR) Not detected 10/15/25 03:18: A. baumannii (PCR) Not detected, Bacteroides fragilis Not detected 10/15/25 03:18: Bacteroides fragilis Not detected, Rupali albicans (PCR) Not detected 10/15/25 03:18: Rupali albicans (PCR) Not detected, Rupali auris (PCR) Not detected 10/15/25 03:18: Rupali auris (PCR) Not detected, C. glabrata (PCR) Not detected 10/15/25 03:18: C. glabrata (PCR) Not detected, C. krusei (PCR) Not detected 10/15/25 03:18: C. krusei (PCR) Not detected, C. parapsilosis (PCR) Not detected 10/15/25 03:18: C. parapsilosis (PCR) Not detected, C. tropicalis (PCR) Not detected 10/15/25 03:18: C. tropicalis (PCR) Not detected, Cryptococcus neoformans PCR Not detected 10/15/25 03:18: Cryptococcus neoformans PCR Not detected, Enterobacterales (PCR) Not detected 10/15/25 03:18: Enterobacterales (PCR) Not detected, Enterococc faecalis PCR Not detected 10/15/25 03:18: Enterococc faecalis PCR Not detected, Enterococc faecium PCR Not detected 10/15/25 03:18: Enterococc faecium PCR Not detected, E. coli (PCR) Not detected 10/15/25 03:18: E. coli (PCR) Not detected, H. influenzae DNA Not detected 10/15/25 03:18: H. influenzae DNA Not detected, Klebsiella aerogenes (PCR) Not detected 10/15/25 03:18: Klebsiella aerogenes (PCR) Not detected, Klebsiella oxytoca PCR Not detected 10/15/25 03:18: Klebsiella oxytoca PCR Not detected, K. pneumoniae group (PCR) Not detected 10/15/25 03:18: K. pneumoniae group (PCR) Not detected, List. monocytogenes PCR Not detected 10/15/25 03:18: List. monocytogenes PCR Not detected, N. meningitidis (PCR) Not detected 10/15/25 03:18: N. meningitidis (PCR) Not detected, Proteus species (PCR) Not detected 10/15/25 03:18: Proteus species (PCR) Not detected, Salmonella spp. (PCR) Not detected 10/15/25 03:18: Salmonella spp. (PCR) Not detected, Serratia marcescens PCR Not detected 10/15/25 03:18: Serratia marcescens PCR Not detected, Staphylococcus sp PCR Not detected 10/15/25 03:18: Staphylococcus sp PCR Not detected, Staph aureus (PCR) Not detected 10/15/25 03:18: Staph aureus (PCR) Not detected, mecA/C & MREJ Resist Gene Not applicable 10/15/25 03:18: mecA/C & MREJ Resist Gene Not applicable, mecA/C-Methicil Resis Gene Not applicable 10/15/25 03:18: mecA/C-Methicil Resis Gene Not applicable, Staph epidermidis (PCR) Not detected 10/15/25 03:18: Staph epidermidis (PCR) Not detected, Staph lugdunensis (TEM- PCR) Not detected 10/15/25 03:18: Staph lugdunensis (TEM-PCR) Not detected, S. maltophilia (PCR) Not detected 10/15/25 03:18: S. maltophilia (PCR) Not detected, Streptococcus sp PCR Detected A 10/15/25 03:18: Streptococcus sp PCR Detected A, S.agalactiae Grp B EL Not detected 10/15/25 03:18: S.agalactiae Grp B EL Not detected, Strep pneumoniae (PCR) Detected A 10/15/25 03:18: Strep pneumoniae (PCR) Detected A, S. pyogenes GrpA EL Not detected 10/15/25 03:18: S. pyogenes GrpA EL Not detected, P. aeruginosa (PCR) Not detected 10/15/25 03:18: P. aeruginosa (PCR) Not detected, Shavonne/B-Vanco Res Genes Not applicable 10/15/25 03:18: Shavonne/B-Vanco Res Genes Not applicable, blaIMP Car res Gene PCR Not applicable 10/15/25 03:18: blaIMP Car res Gene PCR Not applicable, KPC-Carbap Res Gene PCR Not applicable 10/15/25 03:18: KPC-Carbap Res Gene PCR Not applicable, blaNDM Car Res Gene PCR Not applicable 10/15/25 03:18: blaNDM Car Res Gene PCR Not applicable, OXA-48 Carbapenem Resis Gene (PCR) Not applicable 10/15/25 03:18: OXA-48 Carbapenem Resis Gene (PCR) Not applicable, blaVIM Car Res Gene PCR Not applicable 10/15/25 03:18: blaVIM Car Res Gene PCR Not applicable, CTX-M Gene Resistance (PCR) Not applicable 10/15/25 03:18: CTX-M Gene Resistance (PCR) Not applicable, MCR-1 Resistance Gene Not applicable 10/15/25 03:18: MCR-1 Resistance Gene Not applicable 10/15/25 08:45: C-Reactive Protein 67.1 H, Blood Type O Positive, Antibody Screen Negative 10/15/25 09:43: Hgb 10.1 L, Hct 35.8 L 10/15/25 10:57: POC Glucose 268 H 10/15/25 12:08: Sodium 141, Potassium 4.3 D, Chloride 107, Carbon Dioxide 19 L, Anion Gap 19.3 H, BUN 32 H, Creatinine 1.40 H, Estimated Creat Clear 38, Estimated GFR 50 L, Est GFR ( Amer) 60, Glucose 291 H D, Calcium 7.9 L 10/15/25 12:24: PT 10.7, INR 0.96 10/15/25 12:50: VBG pH 7.36, VBG pCO2 34.5 L, VBG pO2 96.8 H, VBG HCO3 18.8 L, VBG Total CO2 19.9 L, VBG O2 Saturation 96.8 H, VBG Base Excess -6.7 L, VBG Lactic Acid 4.9 H 10/15/25 16:56: POC Glucose 333 H* 10/15/25 17:08: Lactate 4.9 H 10/15/25 19:50: POC Glucose 331 H* 10/15/25 : Urine Color Yellow, Urine Appearance Clear, Urine pH 6.0, Ur Specific [place] 1.010, Urine Protein 1+ A, Urine Glucose (UA) 2+, Urine Ketones Negative, Urine Blood 1+ A, Urine Nitrate Negative, Urine Bilirubin Negative, Urine Urobilinogen 0.2, Ur Leukocyte Esterase Negative, Urine RBC Occasional, Urine WBC 3-5, Ur Squamous Epith Cells Occasional, Urine Bacteria Trace 10/16/25 03:30: WBC 10.3 D, RBC 3.92 L, Hgb 9.5 L, Hct 33.2 L, MCV 84.7, MCH 24.2 L, MCHC 28.6 L, RDW 23.0 H, Plt Count 255, MPV 10.8 H, Neut % (Auto) 80.1 H , Lymph % (Auto) 3.[address] L, [place] % (Auto) 3.5, Eos % (Auto) 0.0 L, Baso % (Auto) 0.1, Neut # (Auto) 8.3 H, Lymph # (Auto) 0.4 L, [place] # (Auto) 0.4, Eos # (Auto) 0.0, Baso # (Auto) 0.0, Total Counted 100, Neutrophils % (Manual) 75, Lymphocytes % (Manual) 25, Platelet Estimate Normal, RBC Morphology Not Reportable, Hypochromasia 1+, Sodium 137, Potassium 5.6 H D, Chloride 106, Carbon Dioxide 10 L D, Anion Gap 26.6 H, BUN 39 H, Creatinine 1.70 H D, Estimated Creat Clear 32, Estimated GFR 40 L, Est GFR ( Amer) 48 L, Glucose 246 H, Lactate 7.4 H, Calcium 7.4 L, Total Bilirubin 0.7, Direct Bilirubin 0.3, Conjugated Bilirubin 0.0, Indirect Bilirubin 0.4, Unconjugated Bilirubin 0.4, AST 2453 H* D, ALT 1719 H*, Alkaline Phosphatase 76, Total Protein 5.6 L, Albumin 3.2 L D 10/16/25 04:46: PT 12.7 H, INR 1.16 H, APTT 27.8 L, VBG pH 7.07 L, VBG pCO2 31.1 L, VBG pO2 62.4 H, VBG HCO3 8.8 L, VBG Total CO2 9.8 L, VBG O2 Saturation 83.6 H , VBG Base Excess -21.3 L, VBG Lactic Acid 8.6 H 10/16/25 05:30: POC Glucose 279 H 10/16/25 06:00: Specimen Source R radial, O2 % 6lpm, ABG pH 7.23 L*, ABG pCO2 29.3 L, ABG pO2 88.0, ABG HCO3 11.9 L, ABG Total CO2 12.8 L, ABG O2 Saturation 95, ABG Base Excess -15.8 L, Mahad Test N/a, ABG Lactate 6.1 H 10/16/25 06:28: POC Glucose 270 H 10/16/25 07:15: WBC 11.0 H, RBC 3.38 L, Hgb 8.2 L D, Hct 27.9 L, MCV 82.5, MCH 24.3 L, MCHC 29.4 L, RDW 22.4 H, Plt Count 188 D, MPV 9.8, Neut % (Auto) 82.3 H , Lymph % (Auto) 3.2 L, [place] % (Auto) 1.7, Eos % (Auto) 0.0 L, Baso % (Auto) 0.7, Neut # (Auto) 9.0 H, Lymph # (Auto) 0.4 L, [place] # (Auto) 0.2, Eos # (Auto) 0.0, Baso # (Auto) 0.1, APTT 28.3 L, Sodium 138, Potassium 5.3 H, Chloride 106, Carbon Dioxide 11 L, Anion Gap 26.3 H, BUN 44 H, Creatinine 1.90 H, Estimated Creat Clear 31, Estimated GFR 35 L, Est GFR ( Amer) 42 L, Glucose 172 H D , Calcium 6.7 L, Total Bilirubin 0.7, AST 4315 H* D, ALT 2794 H*, Alkaline Phosphatase 75, Total Protein 5.5 L, Albumin 3.0 L, Globulin 2.5, Albumin/Globulin Ratio 1.2 10/16/25 07:28: POC Glucose 205 H 10/16/25 07:45: Lactate 5.3 H, Ammonia < 9 L 10/16/25 08:28: POC Glucose 122 H Temp Pulse Resp BP Pulse Ox O2 Del Method O2 Flow Rate 98.6 F 111 H 28 H 64/36 L 92 L Nasal Cannula 2 10/15/25 08:00 10/15/25 08:00 10/15/25 08:00 10/15/25 08:00 10/15/25 08:46 10/15/25 09:00 10/15/25 09:00 Laboratory Results - last 24 hr 10/15/25 00:39: WBC 2.8 L, RBC 4.71, Hgb 11.4 L, Hct 37.2 L, MCV 79.0 L, MCH 24.2 L, MCHC 30.6 L, RDW 22.3 H, Plt Count 320, MPV 9.4, Neut % (Auto) 75.7, Lymph % (Auto) 16.8, [place] % (Auto) 1.8, Eos % (Auto) 0.7, Baso % (Auto) 0.7, Neut # (Auto) 2.1, Lymph # (Auto) 0.5 L, [place] # (Auto) 0.1, Eos # (Auto) 0.0, Baso # (Auto) 0.0, Total Counted 100, Neutrophils % (Manual) 69, Lymphocytes % (Manual) 23, Atypical Lymphs % 8, Platelet Estimate Not Reportable, RBC Morphology Not Reportable, PT 10.0 L, INR 0.89 L, Sodium 141, Potassium 3.8, Chloride 103, Carbon Dioxide 26, Anion Gap 15.8 H, BUN 37 H, Creatinine 1.20, Estimated Creat Clear 42, Estimated GFR 59, Est GFR ( Amer) 72, Glucose 154 H, Lactate 3.3 H, Calcium 9.8, Total Bilirubin 0.7, AST 47 D, ALT 101 H, Alkaline Phosphatase 142 H, Troponin I < 0.01, Total Protein 7.2, Albumin 4.3, Globulin 2.9, Albumin/Globulin Ratio 1.5, Lipase 269, HCV Ab ASHKAN w/Rflx PCR Qn Negative, HIV Ag/Ab Combo Qual Negative 10/15/25 00:46: Chlamy pneumoniae PCR Not detected, Adenovirus (PCR) Not detected, B. pertussis DNA (PCR) Not detected, Coronavirus OC43 (PCR) Not detected, Coronavirus HKU1 (PCR) Not detected, Coronavirus 229E (PCR) Not detected, SARS-CoV-2 (PCR) Not detected, Coronavirus NL63 (PCR) Not detected, Human Metapneumovir PCR Not detected, Influenza A (H1) PCR Not detected, Influ A (H1N1/09) PCR Not detected, Influenza A (H3) PCR Not detected, Influenza Type A (PCR) Not detected, Influenza Type B (PCR) Not detected, M. pneumoniae (PCR) Not detected, Parainfluenza 1 (PCR) Not detected, Parainfluenza 2 (PCR) Not detected, Parainfluenza 3 (PCR) Not detected, Parainfluenza 4 (PCR) Not detected, RSV (PCR) Not detected, Entero/Rhino (PCR) Not detected 10/15/25 00:47: Stl C. cayetanensis PCR Not detected, Stool Rotavirus (PCR) Not detected, Stl Adenov F 40/41 PCR Not detected, Stool Astrovirus (PCR) Not detected, Stool Campylobacter PCR Not detected, Stl C.difficile Tox PCR Not detected, Stool Cryptosporidium PCR Not detected, Stl E.coli Shiga Tox PCR Not detected, Stool E coli O157 PCR Not detected, Stl Enterotoxigenic E PCR Not detected, Stool EPEC (PCR) Not detected, Stool EAEC (PCR) Not detected, Stl E. histolytica PCR Not detected, Stool Giardia Lamblia PCR Not detected, Stool Salmonella PCR Not detected, Stool Sapovirus (PCR) Not detected, Stl P. shigelloides PCR Not detected, Stl Shigella/EIEC PCR Not detected, St Y.enterocolitica PCR Not detected, Stool Vibrio (PCR) Not detected, Stl Vibrio cholerae PCR Not detected, Stl Norovirus GI/GII PCR Not detected 10/15/25 03:18: Troponin I < 0.01 10/15/25 04:04: POC Glucose 188 H 10/15/25 06:18: WBC 1.2 L* D, RBC 4.22 L, Hgb 10.0 L D, Hct 33.8 L, MCV 80.1, MCH 23.9 L, MCHC 29.9 L, RDW 22.2 H, Plt Count 244, MPV 10.0, Neut % (Auto) 67.0, Lymph % (Auto) 24.6, [place] % (Auto) 4.2, Eos % (Auto) 1.7, Baso % (Auto) 0.8, Neut # (Auto) 0.8 L*, Lymph # (Auto) 0.3 L, [place] # (Auto) 0.1, Eos # (Auto) 0.0, Baso # (Auto) 0.0, Sodium 144, Potassium 2.9 L* D, Chloride 105, Carbon Dioxide 27, Anion Gap 14.9, BUN 31 H, Creatinine 1.20, Estimated Creat Clear 45, Estimated GFR 59, Est GFR ( Amer) 72, Glucose 159 H, Lactate 3.8 H, Calcium 8.3 L, Magnesium 1.9, Troponin I 0.02, Triglycerides 229 H, Cholesterol 249 H, LDL Cholesterol Direct 149.18 H, VLDL Cholesterol 46 H, HDL Cholesterol 67 H, Cholesterol/HDL Ratio 3.7 H 10/15/25 06:44: POC Glucose 167 H 10/15/25 08:45: Hgb 9.7 L, Hct 33.8 L, Lactate 4.7 H 10/15/25 09:43: Hgb 10.1 L, Hct 35.8 L I & O for Labs for Last 24 Hours: Intake & Output 10/13/25 10/14/25 10/15/25 10/16/25 23:59 23:59 23:59 23:59 Intake Total 4954.104 / 5434.104 2541.749 / 2541.749 Output Total 945 / 1045 200 / 200 Balance 4009.104 / 4389.104 2341.749 / 2341.749 Weight 129 lb 4.782 oz 140 lb 7 oz Intake & Output 10/12/25 10/13/25 10/14/25 10/15/25 23:59 23:59 23:59 23:59 Intake Total 3078.125 / 3078.125 Output Total 225 / 225 Balance 2853.125 / 2853.125 Weight 129 lb 4.782 oz Microbiology Reports for the Last 24 Hours: Microbiology 10/15/25 03:18 Blood Blood Culture - Preliminary Gram Positive Cocci 10/15/25 03:18 Blood Blood Culture - Preliminary Gram Positive Cocci Constitutional: Present severe distress Head: Present normocephalic and atraumatic ENT: Present normal exam, normal oropharynx and mucous membranes moist Neck: Present normal inspection and full ROM Respiratory: Present rhonchi, diminished air movement and able to speak in complete sentences; Absent prolonged expiratory phase or respiratory distress Cardiac: Present S1/S2, Tachycardia and radial pulses present GI: Present soft, distention, tenderness and guarding Skin: Present intact; Absent cyanosis or jaundice Neuro: Present awake; Absent alert or oriented x 3 Extremities: Present normal inspection; Absent clubbing or cyanosis Psychiatric: Present agitated Assessment and Plan *Assessment and plan (1) Acidosis, lactic: Status: Acute Category: Medical Code(s): E87.20 - Acidosis, unspecified (2) Acute and chronic respiratory failure with hypoxia: Status: Acute Category: Medical Code(s): J96.21 - Acute and chronic respiratory failure with hypoxia Plan Mr. 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 CT chest upon this admission reviewed, no acute pulmonary parenchymal changes noted but continued to find evidence of granulomatous disease with interstitial changes and pleural thickening. Low-grade fevers. Hemodynamically unstable. Leukopenia with absolute neutrophil count at 800. CT abdomen concerning for duodenitis. No acute oc clusion of celiac and mesenteric arteries other than moderate stenosis noted. Interval update: No acute respiratory events overnight. Improving pressor requirements Worsening lactate along with AST ALT. 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 NG tube placed for gastric decompression showed concerning for GI bleed, heparin drip was discontinued. Hemodynamic instability improved, improving pressor requirements. Lactate improving, peaked at 8.6, now at 6.1 H & H decreased from earlier this morning from 9.5-8.2. Platelet count within normal limits. Continue to receive stress dose steroids. WBC count increased from 1.2-11.0 with absolute neutrophil count #9000 from 800 yesterday. Blood gas worsening respiratory acidosis with a pH of 7.07 improved now at 7.23. Receiving bicarb drip. Worsening BUN/creatinine. Oliguric ONEIL. Continue to receive vancomycin and Zosyn itraconazole and stress dose steroids. Blood cultures positive for Streptococcus pneumonia. Chest x-ray from this morning no acute infiltrates. Continue to bilateral effusions left greater than right. Plan: Continue vasopressor support to maintain MAP goal of 65 and above if needed. Currently off pressors. Will closely monitor. Continue oxygen supplementation to maintain O2 saturation below 90% and above. DuoNebs 4 times daily as needed Continue Zosyn. Will repeat blood cultures. Discontinue vancomycin. Continue hydrocortisone 50 mg every 4 hours Continue Itraconazole 200 mg 3 times daily Follow with lactic acidosis, trending down. Follow-up with AST ALT. Follow with ultrasound abdomen Doppler. Likely ischemic in nature, will closely monitor. NG tube to suction no evidence of concerning bleeding. Heparin drip discontinued. Famotidine 20 mg IV twice daily Monitor H& H Q8 hrs Renally dose medications. Discontinue vancomycin. Strict I's and O's. Buckley catheter Hyperglycemia. Continue insulin drip. No need for DKA protocol. Blood glucose goal 140- 180. No need for aggressive glycemic control. Total critical care time spent on this patient is 35 minutes managing septic shock with hemodynamic instability needing vasopressor support. This time spent include reviewing test results including interpreting chest x-rays, labs and blood gas, optimizing the vasopressors, formulating plan of care, discussing the plan of care with the team and the nursing staff.
--- NOTE | 2025-10-16 09:31 | US_ITS ---
FINAL REPORT CLINICAL HISTORY: Splenic Vein thrombosis COMPARISON: CTA of the abdomen 10/15/2025 FINDINGS: Sonographic images of the right upper quadrant were obtained. The exam is extremely limited secondary to lack of patient cooperation and inability to breath-hold. The head of the pancreas is unremarkable, with the tail of the pancreas obscured by overlying bowel gas. There is no convincing ultrasound evidence of thrombosis of the splenic vein. The portions of the liver visualized are unremarkable. Visualization of the gallbladder and right kidney was difficult. The spleen appears unremarkable without evidence of splenic enlargement. IMPRESSION: Limited exam, no convincing evidence of thrombosis of the splenic vein. Reviewed, Interpreted and Dictated by Issac Hung MD Transcribed by Sujatha Cook Authenticated and [facility]
[2025-10-16] MEDS: LORazepam 2MG/ML VIAL 1 MG IV (09:32)
[2025-10-16 09:34] LABS: POC Glucose,Bedside 87 gm/dL (70-110)
[2025-10-16 09:58] LABS: Reflex Lactic (2 hrs) Add Lactic Reflex
--- NOTE | 2025-10-16 10:00 | PC.NURSE ---
at bedside. Dr. Cantrell states to titrate patients insulin drip to 0.5 units per hour and increase IV drip if patients blood glucose is above 180. Dr. Cantrell states patients insulin IV drip does not need to follow DKA protocol. states to insert an indwelling velasco catheter for accurate I&O's. Continuation of care plan.
--- NOTE | 2025-10-16 10:40 | P.PN_ITS ---
Subjective *Date: 10/15/25 *Time: 08:30 Interval history: Patient is lethargic and not feeling well this am. His BP is 60/30 and he is complaining of diffuse abdominal pain. Medical Exam Vital signs and Labs for Last 24 Hours: Vital Signs Temp Pulse Resp BP Pulse Ox O2 Del Method O2 Flow Rate 10/16/25 09:01 112 H 22 129/87 91 L Nasal Cannula 2 10/16/25 08:51 115 H 22 125/78 91 L Nasal Cannula 2 10/16/25 08:41 110 H 20 105/81 L 91 L Nasal Cannula 2 10/16/25 08:30 106 H 22 123/85 94 L Nasal Cannula 2 10/16/25 08:20 106 H 22 133/80 93 L Nasal Cannula 2 10/16/25 08:10 108 H 25 H 93 L Nasal Cannula 2 10/16/25 08:03 107 H 22 140/83 92 L Nasal Cannula 2 10/16/25 07:50 97.5 F L 111 H 24 123/90 92 L Nasal Cannula 2 10/16/25 07:49 94 L Nasal Cannula 2 10/16/25 07:45 107 H 25 H 93 L 10/16/25 07:44 107 H 25 H 93 L 10/16/25 07:44 116/73 10/16/25 07:41 113 H 24 152/80 H 10/16/25 07:27 111 H 24 135/80 90 L Nasal Cannula 2 10/16/25 07:00 Nasal Cannula 2 10/16/25 06:59 106 H 29 H 108/59 L 93 L 10/16/25 06:52 83/55 L 10/16/25 06:00 106 H 30 H 128/67 96 Nasal Cannula 2 10/16/25 05:40 147/91 H 10/16/25 05:31 149/85 H 10/16/25 05:21 113/62 10/16/25 05:15 157/71 H 10/16/25 05:00 Nasal Cannula 2 10/16/25 05:00 91 H 27 H 117/71 98 Nasal Cannula 2 10/16/25 04:50 136/74 10/16/25 04:41 130/87 10/16/25 04:30 129/86 10/16/25 04:00 91 H 10/16/25 04:00 93 L Nasal Cannula 2 10/16/25 04:00 97.3 F L 89 38 H 90/66 L 95 Nasal Cannula 2 10/16/25 03:00 Room Air 10/16/25 02:58 98 H 26 H 110/68 96 10/16/25 02:35 98 H 25 H 109/58 L 95 Room Air 10/16/25 02:28 148/87 H 10/16/25 02:20 147/83 H 10/16/25 02:15 157/95 H 10/16/25 01:57 91 H 32 H 141/84 H 97 Room Air 10/16/25 01:45 119/83 10/16/25 01:00 59 L 29 H 105/66 L 93 L Room Air 10/16/25 01:00 Room Air 10/16/25 00:07 93 H 10/16/25 00:00 98.0 F 95 H 22 97/63 L 95 Room Air 10/16/25 00:00 95 Room Air 10/15/25 23:00 96 H 24 93/62 L 95 Room Air 10/15/25 22:48 Room Air 10/15/25 22:00 99 H 23 103/70 L 95 Room Air 10/15/25 21:01 96 H 23 101/64 L 96 Room Air 10/15/25 21:00 Room Air 10/15/25 20:45 103/63 L 10/15/25 20:15 97.6 F 90 23 97/61 L 97 Room Air 10/15/25 20:00 100 H 10/15/25 20:00 97 Room Air 10/15/25 19:00 99 H 26 H 92/56 L 97 Room Air 10/15/25 18:45 96 H 29 H 93/65 L 10/15/25 18:37 Room Air 10/15/25 18:32 88 42 H 119/89 91 L Room Air 10/15/25 18:15 94 H 24 102/63 L 96 Room Air 10/15/25 18:00 97.3 F L 95 H 23 97/65 L 97 Room Air 10/15/25 17:45 96 H 31 H 93/71 L 95 Room Air 10/15/25 17:31 100 H 38 H 99/59 L 94 L Room Air 10/15/25 17:15 100/64 L 10/15/25 17:00 98 H 30 H 103/65 L 96 Room Air 10/15/25 17:00 Room Air 10/15/25 16:45 94 H 23 102/65 L 96 Room Air 10/15/25 16:30 96 H 22 97/55 L 96 Room Air 10/15/25 16:15 95 H 31 H 96/51 L 96 Room Air 10/15/25 16:00 99 H 32 H 98/47 L 95 Room Air 10/15/25 16:00 100 H 10/15/25 16:00 Room Air 10/15/25 15:45 96 H 22 105/64 L 95 Room Air 10/15/25 15:25 97 H 23 95/58 L 96 Room Air 10/15/25 15:20 98 H 27 H 92/52 L 95 Room Air 10/15/25 15:19 98 H 24 90/55 L 96 Room Air 10/15/25 15:10 105 H 23 84/62 L 91 L Room Air 10/15/25 15:05 100 H 26 H 105/64 L 96 Room Air 10/15/25 15:00 Room Air 10/15/25 15:00 103 H 31 H 101/57 L 96 Room Air 10/15/25 14:55 102 H 27 H 91/52 L 96 Room Air 10/15/25 14:50 101 H 25 H 93/54 L 96 Room Air 10/15/25 14:45 101 H 21 89/42 L 94 L Room Air 10/15/25 14:40 99 H 21 79/41 L 94 L Room Air 10/15/25 14:30 105 H 28 H 81/46 L 93 L Room Air 10/15/25 14:25 102 H 23 82/50 L 95 Room Air 10/15/25 14:20 105 H 27 H 78/43 L 94 L Room Air 10/15/25 14:15 105 H 28 H 82/53 L 94 L Room Air 10/15/25 14:10 104 H 24 85/47 L 94 L Room Air 10/15/25 14:06 95 H 29 H 82/50 L 10/15/25 14:00 122 H 31 H 109/58 L 93 L Room Air 10/15/25 13:55 102 H 24 97/53 L 94 L Room Air 10/15/25 13:50 106 H 25 H 85/59 L 94 L Room Air 10/15/25 13:45 105 H 26 H 99/55 L 94 L Room Air 10/15/25 13:40 105 H 24 87/52 L 94 L Room Air 10/15/25 13:35 105 H 26 H 86/46 L 94 L Room Air 10/15/25 13:30 104 H 20 94/52 L 94 L Room Air 10/15/25 13:25 105 H 21 81/50 L 94 L Room Air 10/15/25 13:20 106 H 21 73/48 L 94 L Room Air 10/15/25 13:16 110 H 10/15/25 13:15 105 H 27 H 90/43 L 97 Room Air 10/15/25 13:10 105 H 19 87/53 L 97 Room Air 10/15/25 13:05 107 H 24 86/49 L 95 Room Air 10/15/25 13:00 104 H 26 H 81/48 L 95 Room Air 10/15/25 13:00 Room Air 10/15/25 12:55 103 H 22 92/52 L 96 Room Air 10/15/25 12:50 116 H 26 H 80/44 L 95 Room Air 10/15/25 12:45 102 H 24 74/44 L 95 Room Air 10/15/25 12:40 105 H 22 84/47 L 94 L Room Air 10/15/25 12:35 103 H 22 92/51 L 96 Room Air 10/15/25 12:30 102 H 23 91/56 L 95 10/15/25 12:25 103 H 23 88/50 L 96 Room Air 10/15/25 12:20 106 H 25 H 101/53 L 95 Room Air 10/15/25 12:15 98.3 F 106 H 26 H 92/53 L 95 Room Air 10/15/25 12:10 106 H 25 H 93/51 L 94 L Room Air 10/15/25 12:05 105 H 25 H 91/51 L 95 Room Air 10/15/25 12:00 110 H 10/15/25 12:00 Room Air 10/15/25 12:00 105 H 24 81/41 L 95 Room Air 10/15/25 11:55 105 H 28 H 92/48 L 95 Room Air 10/15/25 11:52 102 H 22 97/50 L 96 Room Air 10/15/25 11:00 Nasal Cannula 2 Intake and Output 10/15/25 10/16/25 10/16/25 19:59 03:59 11:59 Intake Total 1575.917 / 4117.666 824.25 / 4117.666 1717.499 / 4117.666 Output Total 650 / 920 270 / 920 Balance 925.917 / 3197.666 554.25 / 3197.666 1717.499 / 3197.666 Intake: Intake, Oral Amount 118 / 598 480 / 598 Intake, Total IV Amount 1457.917 / 3519.666 344.25 / 3519.666 1717.499 / 3519.666 0.9 % Sodium Chloride 1000ML 1, 756.667 / 756.667 000 ml @ 100 mls/hr IV .Q10H [facility] Rx#:[id number] 0.9 % Sodium Chloride 1000ML 500 / 500 500 ml @ 999 mls/hr IV .Q31M [facility] Rx#:[id number] Heparin Sodium,Porcine/D5w 500 25.9 / 25.9 ml @ 1,050 UNITS/HR 21 mls/hr IV .[id number] [facility] Rx#:[id number] Insulin Regular, Human 100 unit 16.581 / 16.581 In 0.9 % Sodium Chloride 100 ml @ 5 UNIT/HR 5.05 mls/hr IV . Q20H [facility] Rx#:[id number] Norepinephrine Bitartrate/D5w 8 401.25 / 729.407 294.25 / 729.407 33.907 / 729.407 mg In 250 ml @ 22 MCG/MIN 41. 25 mls/hr IV .Q6H4M [facility] Rx#: [id number] Piperacillin/Tazo 3.375 gm In 0 50 / 150 50 / 150 50 / 150 .9 % Sodium Chloride 50 ml @ 100 mls/hr IV Q6H [facility] Rx#: [id number] Sodium Chloride 0.45 % 1,000 ml 1000 / 1000 @ 125 mls/hr IV .Q8H [facility] Rx#: [id number] Vancomycin HCl 1,000 mg In 0.9 250 / 250 % Sodium Chloride 250 ml @ 125 mls/hr IV Q24H [facility] Rx#:[id number] Vasopressin 40 unit In 0.9 % 91.111 / 91.111 Sodium Chloride 100 ml @ 0.04 UNITS/MIN 6.12 mls/hr IV . [id number] [facility] Rx#:[id number] Output: Output, Urine Amount 650 / 920 270 / 920 Other: Number of Unmeasured Voids 2 Number of Bowel Movements 1 1 1 Weight 140 lb 7 oz Patient Weight 10/16/25 11:59 Weight 140 lb 7 oz Laboratory Results - last 24 hr 10/15/25 03:18: A. baumannii (PCR) Not detected 10/15/25 03:18: A. baumannii (PCR) Not detected, Bacteroides fragilis Not detected 10/15/25 03:18: Bacteroides fragilis Not detected, Rupali albicans (PCR) Not detected 10/15/25 03:18: Rupali albicans (PCR) Not detected, Rupali auris (PCR) Not detected 10/15/25 03:18: Rupali auris (PCR) Not detected, C. glabrata (PCR) Not detected 10/15/25 03:18: C. glabrata (PCR) Not detected, C. krusei (PCR) Not detected 10/15/25 03:18: C. krusei (PCR) Not detected, C. parapsilosis (PCR) Not detected 10/15/25 03:18: C. parapsilosis (PCR) Not detected, C. tropicalis (PCR) Not detected 10/15/25 03:18: C. tropicalis (PCR) Not detected, Cryptococcus neoformans PCR Not detected 10/15/25 03:18: Cryptococcus neoformans PCR Not detected, Enterobacterales (PCR) Not detected 10/15/25 03:18: Enterobacterales (PCR) Not detected, Enterococc faecalis PCR Not detected 10/15/25 03:18: Enterococc faecalis PCR Not detected, Enterococc faecium PCR Not detected 10/15/25 03:18: Enterococc faecium PCR Not detected, E. coli (PCR) Not detected 10/15/25 03:18: E. coli (PCR) Not detected, H. influenzae DNA Not detected 10/15/25 03:18: H. influenzae DNA Not detected, Klebsiella aerogenes (PCR) Not detected 10/15/25 03:18: Klebsiella aerogenes (PCR) Not detected, Klebsiella oxytoca PCR Not detected 10/15/25 03:18: Klebsiella oxytoca PCR Not detected, K. pneumoniae group (PCR) Not detected 10/15/25 03:18: K. pneumoniae group (PCR) Not detected, List. monocytogenes PCR Not detected 10/15/25 03:18: List. monocytogenes PCR Not detected, N. meningitidis (PCR) Not detected 10/15/25 03:18: N. meningitidis (PCR) Not detected, Proteus species (PCR) Not detected 10/15/25 03:18: Proteus species (PCR) Not detected, Salmonella spp. (PCR) Not detected 10/15/25 03:18: Salmonella spp. (PCR) Not detected, Serratia marcescens PCR Not detected 10/15/25 03:18: Serratia marcescens PCR Not detected, Staphylococcus sp PCR Not detected 10/15/25 03:18: Staphylococcus sp PCR Not detected, Staph aureus (PCR) Not detected 10/15/25 03:18: Staph aureus (PCR) Not detected, mecA/C & MREJ Resist Gene Not applicable 10/15/25 03:18: mecA/C & MREJ Resist Gene Not applicable, mecA/C-Methicil Resis Gene Not applicable 10/15/25 03:18: mecA/C-Methicil Resis Gene Not applicable, Staph epidermidis (PCR) Not detected 10/15/25 03:18: Staph epidermidis (PCR) Not detected, Staph lugdunensis (TEM- PCR) Not detected 10/15/25 03:18: Staph lugdunensis (TEM-PCR) Not detected, S. maltophilia (PCR) Not detected 10/15/25 03:18: S. maltophilia (PCR) Not detected, Streptococcus sp PCR Detected A 10/15/25 03:18: Streptococcus sp PCR Detected A, S.agalactiae Grp B EL Not detected 10/15/25 03:18: S.agalactiae Grp B EL Not detected, Strep pneumoniae (PCR) Detected A 10/15/25 03:18: Strep pneumoniae (PCR) Detected A, S. pyogenes GrpA EL Not detected 10/15/25 03:18: S. pyogenes GrpA EL Not detected, P. aeruginosa (PCR) Not detected 10/15/25 03:18: P. aeruginosa (PCR) Not detected, Shavonne/B-Vanco Res Genes Not applicable 10/15/25 03:18: Shavonne/B-Vanco Res Genes Not applicable, blaIMP Car res Gene PCR Not applicable 10/15/25 03:18: blaIMP Car res Gene PCR Not applicable, KPC-Carbap Res Gene PCR Not applicable 10/15/25 03:18: KPC-Carbap Res Gene PCR Not applicable, blaNDM Car Res Gene PCR Not applicable 10/15/25 03:18: blaNDM Car Res Gene PCR Not applicable, OXA-48 Carbapenem Resis Gene (PCR) Not applicable 10/15/25 03:18: OXA-48 Carbapenem Resis Gene (PCR) Not applicable, blaVIM Car Res Gene PCR Not applicable 10/15/25 03:18: blaVIM Car Res Gene PCR Not applicable, CTX-M Gene Resistance (PCR) Not applicable 10/15/25 03:18: CTX-M Gene Resistance (PCR) Not applicable, MCR-1 Resistance Gene Not applicable 10/15/25 03:18: MCR-1 Resistance Gene Not applicable 10/15/25 08:45: C-Reactive Protein 67.1 H 10/15/25 10:57: POC Glucose 268 H 10/15/25 12:08: Sodium 141, Potassium 4.3 D, Chloride 107, Carbon Dioxide 19 L, Anion Gap 19.3 H, BUN 32 H, Creatinine 1.40 H, Estimated Creat Clear 38, Estimated GFR 50 L, Est GFR ( Amer) 60, Glucose 291 H D, Calcium 7.9 L 10/15/25 12:24: PT 10.7, INR 0.96 10/15/25 12:50: VBG pH 7.36, VBG pCO2 34.5 L, VBG pO2 96.8 H, VBG HCO3 18.8 L, VBG Total CO2 19.9 L, VBG O2 Saturation 96.8 H, VBG Base Excess -6.7 L, VBG Lactic Acid 4.9 H 10/15/25 16:56: POC Glucose 333 H* 10/15/25 17:08: Lactate 4.9 H 10/15/25 19:50: POC Glucose 331 H* 10/15/25 : Urine Color Yellow, Urine Appearance Clear, Urine pH 6.0, Ur Specific [place] 1.010, Urine Protein 1+ A, Urine Glucose (UA) 2+, Urine Ketones Negative, Urine Blood 1+ A, Urine Nitrate Negative, Urine Bilirubin Negative, Urine Urobilinogen 0.2, Ur Leukocyte Esterase Negative, Urine RBC Occasional, Urine WBC 3-5, Ur Squamous Epith Cells Occasional, Urine Bacteria Trace 10/16/25 03:30: WBC 10.3 D, RBC 3.92 L, Hgb 9.5 L, Hct 33.2 L, MCV 84.7, MCH 24.2 L, MCHC 28.6 L, RDW 23.0 H, Plt Count 255, MPV 10.8 H, Neut % (Auto) 80.1 H , Lymph % (Auto) 3.4 L, [place] % (Auto) 3.5, Eos % (Auto) 0.0 L, Baso % (Auto) 0.1, Neut # (Auto) 8.3 H, Lymph # (Auto) 0.4 L, [place] # (Auto) 0.4, Eos # (Auto) 0.0, Baso # (Auto) 0.0, Total Counted 100, Neutrophils % (Manual) 75, Lymphocytes % (Manual) 25, Platelet Estimate Normal, RBC Morphology Not Reportable, Hypochromasia 1+, Sodium 137, Potassium 5.6 H D, Chloride 106, Carbon Dioxide 10 L D, Anion Gap 26.6 H, BUN 39 H, Creatinine 1.70 H D, Estimated Creat Clear 32, Estimated GFR 40 L, Est GFR ( Amer) 48 L, Glucose 246 H, Lactate 7.4 H, Calcium 7.4 L, Total Bilirubin 0.7, Direct Bilirubin 0.3, Conjugated Bilirubin 0.0, Indirect Bilirubin 0.4, Unconjugated Bilirubin 0.4, AST 2453 H* D, ALT 1719 H*, Alkaline Phosphatase 76, Total Protein 5.6 L, Albumin 3.2 L D 10/16/25 04:46: PT 12.7 H, INR 1.16 H, APTT 27.8 L, VBG pH 7.07 L, VBG pCO2 31.1 L, VBG pO2 62.4 H, VBG HCO3 8.8 L, VBG Total CO2 9.8 L, VBG O2 Saturation 83.6 H , VBG Base Excess -21.3 L, VBG Lactic Acid 8.6 H 10/16/25 05:30: POC Glucose 279 H 10/16/25 06:00: Specimen Source R radial, O2 % 6lpm, ABG pH 7.23 L*, ABG pCO2 29.3 L, ABG pO2 88.0, ABG HCO3 11.9 L, ABG Total CO2 12.8 L, ABG O2 Saturation 95, ABG Base Excess -15.8 L, Mahad Test N/a, ABG Lactate 6.1 H 10/16/25 06:28: POC Glucose 270 H 10/16/25 07:15: WBC 11.0 H, RBC 3.38 L, Hgb 8.2 L D, Hct 27.9 L, MCV 82.5, MCH 24.3 L, MCHC 29.4 L, RDW 22.4 H, Plt Count 188 D, MPV 9.8, Neut % (Auto) 82.3 H , Lymph % (Auto) 3.2 L, [place] % (Auto) 1.7, Eos % (Auto) 0.0 L, Baso % (Auto) 0.7, Neut # (Auto) 9.0 H, Lymph # (Auto) 0.4 L, [place] # (Auto) 0.2, Eos # (Auto) 0.0, Baso # (Auto) 0.1, APTT 28.3 L, Sodium 138, Potassium 5.3 H, Chloride 106, Carbon Dioxide 11 L, Anion Gap 26.3 H, BUN 44 H, Creatinine 1.90 H, Estimated Creat Clear 31, Estimated GFR 35 L, Est GFR ( Amer) 42 L, Glucose 172 H D , Calcium 6.7 L, Total Bilirubin 0.7, AST 4315 H* D, ALT 2794 H*, Alkaline Phos phatase 75, Total Protein 5.5 L, Albumin 3.0 L, Globulin 2.5, Albumin/Globulin Ratio 1.2 10/16/25 07:28: POC Glucose 205 H 10/16/25 07:45: Lactate 5.3 H, Ammonia < 9 L 10/16/25 08:28: POC Glucose 122 H 10/16/25 09:26: POC Glucose 87 I & O for Labs for Last 24 Hours: Intake & Output 10/13/25 10/14/25 10/15/25 10/16/25 11:59 11:59 11:59 11:59 Intake Total 3378.187 / 3378.187 4117.666 / 4117.666 Output Total 225 / 225 920 / 920 Balance 3153.187 / 3153.187 3197.666 / 3197.666 Weight 129 lb 4.782 oz 140 lb 7 oz Microbiology Reports for the Last 24 Hours: Microbiology 10/15/25 03:18 Blood Blood Culture - Preliminary Gram Positive Cocci 10/15/25 03:18 Blood Blood Culture - Preliminary Gram Positive Cocci Constitutional: Present moderate distress ENT: Present mucous membranes dry Respiratory: Present CTA bilaterally Cardiac: Present Regular Rhythm and Tachycardia GI: Present soft, distention and tenderness (diffuse) Extremities: Absent edema Skin: Present pallor Neuro: Present Other (Lethargic, barely able to answer questions) Assessment and Plan *Assessment and plan (1) Severe sepsis without septic shock: Status: Acute Category: Medical Code(s): A41.9 - Sepsis, unspecified organism; R65.20 - Severe sepsis without septic shock (2) Nausea, vomiting, and diarrhea: Status: Acute Category: Medical Code(s): R11.2 - Nausea with vomiting, unspecified; R19.7 - Diarrhea, unspecified (3) Abdominal pain: Status: Acute Category: Medical Code(s): R10.9 - Unspecified abdominal pain (4) Duodenitis: Status: Acute Category: Medical Code(s): K29.80 - Duodenitis without bleeding (5) Portal hypertension: Status: Acute Category: Medical Code(s): K76.6 - Portal hypertension (6) Diabetes: Status: Chronic Qualifiers: Diabetes mellitus type: type 2 Diabetes mellitus continuous churn buttermaker insulin use: with care home use Diabetes mellitus complication status: without complication Qualified Code(s): E11.9 - Type 2 diabetes mellitus without complications; Z79.4 - senior care (current) use of insulin Category: Medical Code(s): E11.9 - Type 2 diabetes mellitus without complications (7) Hypertension: Status: Chronic Qualifiers: Hypertension type: essential hypertension Qualified Code(s): I10 - Essential (primary) hypertension Category: Medical Code(s): I10 - Essential (primary) hypertension (8) Adrenal insufficiency: Status: Acute Category: Medical Code(s): E27.40 - Unspecified adrenocortical insufficiency Plan Awaiting blood cultures. He has been started on zosyn. GI has been consulted. Will move to the unit and start on a levophed drip due to hypotension. Will continue IVF's and give 125mg of solumedrol for adrenal insufficiency. Will discuss further care with Dr. Almanzar.
--- NOTE | 2025-10-16 10:40 | PC.NURSE ---
Patients mouth is bleeding. Patient has GCS of [address] Cantrell notified. No new orders received. Continuation of care plan.
[2025-10-16] MEDS: HALOPERIDOL LACTATE 5 MG/ML VIAL 2.5 MG IV ×2 (10:50→12:30)
--- NOTE | 2025-10-16 10:50 | PC.NURSE ---
notified of patients increase in agitation, restlessness, and confusion. No new orders received. Continuation of care plan.
[2025-10-16 10:55] LABS: Lactic Acid Follow up (RFLX 2) 5.4 mmol/L (0.7-2.1)
--- NOTE | 2025-10-16 10:55 | PC.NURSE ---
critical lactic 5.4, pt name and r/v. dr luna notified
--- NOTE | 2025-10-16 10:57 | XR_ITS ---
FINAL REPORT CLINICAL HISTORY: Abnormal breath sounds COMPARISON: 5 hours prior FINDINGS: The heart size is mildly enlarged. There is a left subclavian central venous catheter with the tip in the SVC. An NG tube is present in the stomach. The mediastinum is normal. There are small to moderate bilateral pleural effusions and bibasilar atelectasis, not significantly changed. There is no pneumothorax. There is no osseous abnormality. IMPRESSION: Stable bibasilar atelectasis and bilateral pleural effusions. Reviewed, Interpreted and Dictated by Issac Hung MD Transcribed by Bev [facility]
--- NOTE | 2025-10-16 11:01 | EXP.PN ---
Subjective *Date: 10/16/25 *Time: 11:01 Interval history: Mr. Trevino more agitated over the last 12 hours with cognitive change. Liver chemistries/transaminases spiked and creatinine increased. Exam Data for Last 24 hours Vital signs and Labs for Last 24 Hours: Temp Pulse Resp BP Pulse Ox O2 Del Method O2 Flow Rate 97.5 F L 112 H 22 129/87 91 L Nasal Cannula 2 10/16/25 07:50 10/16/25 09:01 10/16/25 09:01 10/16/25 09:01 10/16/25 09:01 10/16/25 09:01 10/16/25 09:01 Laboratory Results - last 24 hr 10/15/25 03:18: A. baumannii (PCR) Not detected 10/15/25 03:18: A. baumannii (PCR) Not detected, Bacteroides fragilis Not detected 10/15/25 03:18: Bacteroides fragilis Not detected, Rupali albicans (PCR) Not detected 10/15/25 03:18: Rupali albicans (PCR) Not detected, Rupali auris (PCR) Not detected 10/15/25 03:18: Rupali auris (PCR) Not detected, C. glabrata (PCR) Not detected 10/15/25 03:18: C. glabrata (PCR) Not detected, C. krusei (PCR) Not detected 10/15/25 03:18: C. krusei (PCR) Not detected, C. parapsilosis (PCR) Not detected 10/15/25 03:18: C. parapsilosis (PCR) Not detected, C. tropicalis (PCR) Not detected 10/15/25 03:18: C. tropicalis (PCR) Not detected, Cryptococcus neoformans PCR Not detected 10/15/25 03:18: Cryptococcus neoformans PCR Not detected, Enterobacterales (PCR) Not detected 10/15/25 03:18: Enterobacterales (PCR) Not detected, Enterococc faecalis PCR Not detected 10/15/25 03:18: Enterococc faecalis PCR Not detected, Enterococc faecium PCR Not detected 10/15/25 03:18: Enterococc faecium PCR Not detected, E. coli (PCR) Not detected 10/15/25 03:18: E. coli (PCR) Not detected, H. influenzae DNA Not detected 10/15/25 03:18: H. influenzae DNA Not detected, Klebsiella aerogenes (PCR) Not detected 10/15/25 03:18: Klebsiella aerogenes (PCR) Not detected, Klebsiella oxytoca PCR Not detected 10/15/25 03:18: Klebsiella oxytoca PCR Not detected, K. pneumoniae group (PCR) Not detected 10/15/25 03:18: K. pneumoniae group (PCR) Not detected, List. monocytogenes PCR Not detected 10/15/25 03:18: List. monocytogenes PCR Not detected, N. meningitidis (PCR) Not detected 10/15/25 03:18: N. meningitidis (PCR) Not detected, Proteus species (PCR) Not detected 10/15/25 03:18: Proteus species (PCR) Not detected, Salmonella spp. (PCR) Not detected 10/15/25 03:18: Salmonella spp. (PCR) Not detected, Serratia marcescens PCR Not detected 10/15/25 03:18: Serratia marcescens PCR Not detected, Staphylococcus sp PCR Not detected 10/15/25 03:18: Staphylococcus sp PCR Not detected, Staph aureus (PCR) Not detected 10/15/25 03:18: Staph aureus (PCR) Not detected, mecA/C & MREJ Resist Gene Not applicable 10/15/25 03:18: mecA/C & MREJ Resist Gene Not applicable, mecA/C-Methicil Resis Gene Not applicable 10/15/25 03:18: mecA/C-Methicil Resis Gene Not applicable, Staph epidermidis (PCR) Not detected 10/15/25 03:18: Staph epidermidis (PCR) Not detected, Staph lugdunensis (TEM-PCR) Not detected 10/15/25 03:18: Staph lugdunensis (TEM-PCR) Not detected, S. maltophilia (PCR) Not detected 10/15/25 03:18: S. maltophilia (PCR) Not detected, Streptococcus sp PCR Detected A 10/15/25 03:18: Streptococcus sp PCR Detected A, S.agalactiae Grp B EL Not detected 10/15/25 03:18: S.agalactiae Grp B EL Not detected, Strep pneumoniae (PCR) Detected A 10/15/25 03:18: Strep pneumoniae (PCR) Detected A, S. pyogenes GrpA EL Not detected 10/15/25 03:18: S. pyogenes GrpA EL Not detected, P. aeruginosa (PCR) Not detected 10/15/25 03:18: P. aeruginosa (PCR) Not detected, Shavonne/B-Vanco Res Genes Not applicable 10/15/25 03:18: Shavonne/B-Vanco Res Genes Not applicable, blaIMP Car res Gene PCR Not applicable 10/15/25 03:18: blaIMP Car res Gene PCR Not applicable, KPC-Carbap Res Gene PCR Not applicable 10/15/25 03:18: KPC-Carbap Res Gene PCR Not applicable, blaNDM Car Res Gene PCR Not applicable 10/15/25 03:18: blaNDM Car Res Gene PCR Not applicable, OXA-48 Carbapenem Resis Gene (PCR) Not applicable 10/15/25 03:18: OXA-48 Carbapenem Resis Gene (PCR) Not applicable, blaVIM Car Res Gene PCR Not applicable 10/15/25 03:18: blaVIM Car Res Gene PCR Not applicable, CTX-M Gene Resistance (PCR) Not applicable 10/15/25 03:18: CTX-M Gene Resistance (PCR) Not applicable, MCR-1 Resistance Gene Not applicable 10/15/25 03:18: MCR-1 Resistance Gene Not applicable 10/15/25 08:45: C-Reactive Protein 67.1 H 10/15/25 10:57: POC Glucose 268 H 10/15/25 12:08: Sodium 141, Potassium 4.3 D, Chloride 107, Carbon Dioxide 19 L, Anion Gap 19.3 H, BUN 32 H, Creatinine 1.40 H, Estimated Creat Clear 38, Estimated GFR 50 L, Est GFR ( Amer) 60, Glucose 291 H D, Calcium 7.9 L 10/15/25 12:24: PT 10.7, INR 0.96 10/15/25 12:50: VBG pH 7.36, VBG pCO2 34.5 L, VBG pO2 96.8 H, VBG HCO3 18.8 L, VBG Total CO2 19.9 L, VBG O2 Saturation 96.8 H, VBG Base Excess -6.7 L, VBG Lactic Acid 4.9 H 10/15/25 16:56: POC Glucose 333 H* 10/15/25 17:08: Lactate 4.9 H 10/15/25 19:50: POC Glucose 331 H* 10/15/25 : Urine Color Yellow, Urine Appearance Clear, Urine pH 6.0, Ur Specific [place] 1.010, Urine Protein 1+ A, Urine Glucose (UA) 2+, Urine Ketones Negative, Urine Blood 1+ A, Urine Nitrate Negative, Urine Bilirubin Negative, Urine Urobilinogen 0.2, Ur Leukocyte Esterase Negative, Urine RBC Occasional, Urine WBC 3-5, Ur Squamous Epith Cells Occasional, Urine Bacteria Trace 10/16/25 03:30: WBC 10.3 D, RBC 3.92 L, Hgb 9.5 L, Hct 33.2 L, MCV 84.7, MCH 24.2 L, MCHC 28.6 L, RDW 23.0 H, Plt Count 255, MPV 10.8 H, Neut % (Auto) 80.1 H, Lymph % (Auto) 3.4 L, Bureau % (Auto) 3.5, Eos % (Auto) 0.0 L, Baso % (Auto) 0.1, Neut # (Auto) 8.3 H, Lymph # (Auto) 0.4 L, Bureau # (Auto) 0.4, Eos # (Auto) 0.0, Baso # (Auto) 0.0, Total Counted 100, Neutrophils % (Manual) 75, Lymphocytes % (Manual) 25, Platelet Estimate Normal, RBC Morphology Not Reportable, Hypochromasia 1+, Sodium 137, Potassium 5.6 H D, Chloride 106, Carbon Dioxide 10 L D, Anion Gap 26.6 H, BUN 39 H, Creatinine 1.70 H D, Estimated Creat Clear 32, Estimated GFR 40 L, Est GFR ( Amer) 48 L, Glucose 246 H, Lactate 7.4 H, Calcium 7.4 L, Total Bilirubin 0.7, Direct Bilirubin 0.3, Conjugated Bilirubin 0.0, Indirect Bilirubin 0.4, Unconjugated Bilirubin 0.4, AST 2453 H* D, ALT 1719 H*, Alkaline Phosphatase 76, Total Protein 5.6 L, Albumin 3.2 L D 10/16/25 04:46: PT 12.7 H, INR 1.16 H, APTT 27.8 L, VBG pH 7.07 L, VBG pCO2 31.1 L, VBG pO2 62.4 H, VBG HCO3 8.8 L, VBG Total CO2 9.8 L, VBG O2 Saturation 83.6 H, VBG Base Excess -21.3 L, VBG Lactic Acid 8.6 H 10/16/25 05:30: POC Glucose 279 H 10/16/25 06:00: Specimen Source R radial, O2 % 6lpm, ABG pH 7.23 L*, ABG pCO2 29.3 L, ABG pO2 88.0, ABG HCO3 11.9 L, ABG Total CO2 12.8 L, ABG O2 Saturation 95, ABG Base Excess -15.8 L, Mahad Test N/a, ABG Lactate 6.1 H 10/16/25 06:28: POC Glucose 270 H 10/16/25 07:15: WBC 11.0 H, RBC 3.38 L, Hgb 8.2 L D, Hct 27.9 L, MCV 82.5, MCH 24.3 L, MCHC 29.4 L, RDW 22.4 H, Plt Count 188 D, MPV 9.8, Neut % (Auto) 82.3 H, Lymph % (Auto) 3.2 L, Bureau % (Auto) 1.7, Eos % (Auto) 0.0 L, Baso % (Auto) 0.7, Neut # (Auto) 9.0 H, Lymph # (Auto) 0.4 L, Bureau # (Auto) 0.2, Eos # (Auto) 0.0, Baso # (Auto) 0.1, APTT 28.3 L, Sodium 138, Potassium 5.3 H, Chloride 106, Carbon Dioxide 11 L, Anion Gap 26.3 H, BUN 44 H, Creatinine 1.90 H, Estimated Creat Clear 31, Estimated GFR 35 L, Est GFR ( Amer) 42 L, Glucose 172 H D, Calcium 6.7 L, Total Bilirubin 0.7, AST 4315 H* D, ALT 2794 H*, Alkaline Phosphatase 75, Total Protein 5.5 L, Albumin 3.0 L, Globulin 2.5, Albumin/Globulin Ratio 1.2 10/16/25 07:28: POC Glucose 205 H 10/16/25 07:45: Lactate 5.3 H, Ammonia < 9 L 10/16/25 08:28: POC Glucose 122 H 10/16/25 09:26: POC Glucose 87 10/16/25 10:30: Lactate 5.4 H I & O for Last 24 hours: Intake & Output 10/13/25 10/14/25 10/15/25 10/16/25 23:59 23:59 23:59 23:59 Intake Total 4954.104 / 5434.104 2541.749 / 2541.749 Output Total 945 / 1045 200 / 200 Balance 4009.104 / 4389.104 2341.749 / 2341.749 Weight 129 lb 4.782 oz 140 lb 7 oz Microbiology Reports for the Last 24 Hours: Microbiology 10/15/25 03:18 Blood Blood Culture - Preliminary Gram Positive Cocci 10/15/25 03:18 Blood Blood Culture - Preliminary Gram Positive Cocci Assessment and Plan *Assessment and plan (1) Transaminitis: Status: Acute Category: Medical Code(s): R74.01 - Elevation of levels of liver transaminase levels (2) Encephalopathy acute: Status: Acute Category: Medical Code(s): G93.40 - Encephalopathy, unspecified (3) Volume depletion: Status: Acute Category: Medical Code(s): E86.9 - Volume depletion, unspecified (4) Dehydration: Status: Acute Category: Medical Code(s): E86.0 - Dehydration (5) Shock liver: Status: Acute Category: Medical Code(s): K72.00 - Acute and subacute hepatic failure without coma (6) Elevated serum creatinine: Status: Acute Category: Medical Code(s): R79.89 - Other specified abnormal findings of blood chemistry Plan 1. [place] in transaminases with preceding volume depletion and hypotension is likely secondary to shock liver/ischemic hepatopathy. I did speak with Dr. Almanzar this morning. 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 Given his elevated creatinine, he may have developed shock kidney/ATN as well. The patient is positive for strep pneumonia and certainly sepsis can lead to hypotension and then with his mesenteric/SMA and celiac artery stenosis, he is at much higher risk for shock liver. Given his underlying liver disease, he also has a higher risk of progression to liver failure when there is liver ischemia in the setting of chronic liver disease. Presently, he does need volume repletion and treatment of any underlying infection/sepsis. He is at high risk for liver failure and we will check coagulation (PT/INR) and ammonia levels daily. If he has any worsening, would consider transfer to a tertiary center ([facility] or [facility]).
--- NOTE | 2025-10-16 11:09 | PC.NURSE ---
Patient has coarse crackle lung sounds bilaterally throughout. Dr. Almanzar notified. New orders received. Continuation of care plan.
--- NOTE | 2025-10-16 11:42 | PC.NURSE ---
Patient has swelling in face, coarse crackles throughout bilateral lung bases. Patients oxygen saturation of 95 on 3 L NC. Patients blood sugar of 102. notified. states turn insulin drip down to 0.25 units/hr. Dr. Cantrell states if patients blood sugar is below 180 for the next glucose check then stop patients insulin drip. Continuation of care plan.
[2025-10-16] MEDS: FAMOTIDINE 20MG/2ML VIAL 20 MG IV (12:00)
[2025-10-16 12:07] LABS: NT Pro Brain Natriuretic Pep. 40900 pg/mL (0-125)
--- NOTE | 2025-10-16 12:25 | PC.NURSE ---
New orders received from at this time. Refer to MAR. notified of patients blood sugar of 117. states he wants the Insulin IV drip and D5NS IV fluids stopped at this time. Continuation of care plan.
[2025-10-16] MEDS: FUROSEMIDE 100MG/10ML VIAL 80 MG IV (12:28)
[2025-10-16] MEDS: HYDROCORTISONE SOD SUCCINATE 100MG VIAL 50 MG IV ×2 (12:28→16:44)
[2025-10-16 12:36] LABS: POC Glucose,Bedside 117 gm/dL (70-110)
[2025-10-16 12:41] LABS: Microscopic, Urine URINE MICROSCOPIC (MICROSCOPIC)
[2025-10-16 12:57] LABS: Bilirubin,Urine Negative (Negative); Color,Urine YELLOW (Yellow); Glucose,Urine (UA) Negative (Negative); Ketones,Urine Negative (Negative); Leukocyte Esterase,Urine Negative (Negative); PH,Urine 6.5 (5.0-8.5); Protein,Urine 2+ (Negative); Specific Gravity, Urine 1.025 (1.005-1.030); Urobilinogen,Urine 0.2 EU/dl (0.2)
--- NOTE | 2025-10-16 12:58 | PC.NURSE ---
Staff remain at the bedside providing 1:1 observation due to the patient?s confusion and agitation. Family is present at the bedside. RN administered Ativan and Haldol as ordered, with minimal effect on reducing agitation. Mitts are in place. One to two staff members are required to maintain the patient?s safety, as the patient persistently attempts to get up and pull out the NG tube, Buckley catheter, and IV lines. The patient is unable to respond appropriately to questions and only produces occasional mumbled words with eyes closed. MD aware of patient condition.
[2025-10-16 13:01] LABS: Bacteria,Urine 2+ /lpf; Squamous Epithelial Cell,Urine Occasional #/hpf (0-5)
--- NOTE | 2025-10-16 13:23 | PC.NURSE ---
Primary RN called lab. Verbal BNP result of 40,900 at this time. notified. states he would like Dr. Cantrell to call him. Primary RN called Pulmonology office. Message left with Pulmonology office. Continuation of care plan.
--- NOTE | 2025-10-16 13:36 | EXP.ACUTE.PN ---
Subjective *Date: 10/16/25 *Time: 13:36 Interval history: Difficult night. Increased confusion. Treated with Ativan and Haldol. Marked elevation in liver enzymes indicative of shock liver. Received heparin during the night due to concern for portal thrombosis. Heparin D/c'd this AM due to bleeding from nose (NG) and mouth. NG was placed due to evidence of ileus. Patient with some lower abdominal discomfort, but not with severe discomfort. Microbiology indicates Strep and Staph bacteremia. Renal outpt has declined today. BNP is markedly elevated >40,000. Dr. Cantrell has ordered Furosemide 80mg IV. CXR noted. IV fluids D/C'd. Insulin drip D/C'd. Case discussed with Dr. Crawford. He feels that there is shock liver accounting for the enzyme elevation. Insult to kidneys is likely as well. Case also discussed with Dr. Cantrell. Medical Exam Vital signs and Labs for Last 24 Hours: Vital Signs Temp Pulse Resp BP Pulse Ox O2 Del Method O2 Flow Rate 10/16/25 13:00 99.5 F 104 H 22 119/67 93 L Nasal Cannula 3 10/16/25 13:00 Nasal Cannula 3 10/16/25 12:50 99.5 F 103 H 22 116/65 94 L Nasal Cannula 3 10/16/25 12:40 99.5 F 106 H 22 122/63 93 L Nasal Cannula 3 10/16/25 12:33 99.5 F 105 H 22 110/58 L 94 L Nasal Cannula 3 10/16/25 12:32 100 H 10/16/25 12:01 99.5 F 102 H 24 109/89 L 94 L Nasal Cannula 3 10/16/25 11:51 99.3 F 105 H 20 115/66 96 Nasal Cannula 3 10/16/25 11:21 99.1 F 109 H 24 117/83 96 Nasal Cannula 3 10/16/25 11:02 98.8 F 109 H 24 110/69 96 Nasal Cannula 3 10/16/25 11:00 Nasal Cannula 3 10/16/25 10:58 96 Nasal Cannula 3 10/16/25 09:30 109 H 24 114/81 93 L Nasal Cannula 3 10/16/25 09:23 111 H 24 127/65 90 L Nasal Cannula 2 10/16/25 09:01 112 H 22 129/87 91 L Nasal Cannula 2 10/16/25 09:00 Nasal Cannula 2 10/16/25 08:51 115 H 22 125/78 91 L Nasal Cannula 2 10/16/25 08:41 110 H 20 105/81 L 91 L Nasal Cannula 2 10/16/25 08:30 106 H 22 123/85 94 L Nasal Cannula 2 10/16/25 08:20 106 H 22 133/80 93 L Nasal Cannula 2 10/16/25 08:10 107 H 10/16/25 08:10 108 H 25 H 93 L Nasal Cannula 2 10/16/25 08:03 107 H 22 140/83 92 L Nasal Cannula 2 10/16/25 07:50 97.5 F L 111 H 24 123/90 92 L Nasal Cannula 2 10/16/25 07:49 94 L Nasal Cannula 2 10/16/25 07:45 107 H 25 H 93 L 10/16/25 07:44 107 H 25 H 93 L 10/16/25 07:44 116/73 10/16/25 07:41 113 H 24 152/80 H 10/16/25 07:27 111 H 24 135/80 90 L Nasal Cannula 2 10/16/25 07:00 Nasal Cannula 2 10/16/25 06:59 106 H 29 H 108/59 L 93 L 10/16/25 06:52 83/55 L 10/16/25 06:00 106 H 30 H 128/67 96 Nasal Cannula 2 10/16/25 05:40 147/91 H 10/16/25 05:31 149/85 H 10/16/25 05:21 113/62 10/16/25 05:15 157/71 H 10/16/25 05:00 Nasal Cannula 2 10/16/25 05:00 91 H 27 H 117/71 98 Nasal Cannula 2 10/16/25 04:50 136/74 10/16/25 04:41 130/87 10/16/25 04:30 129/86 10/16/25 04:00 91 H 10/16/25 04:00 93 L Nasal Cannula 2 10/16/25 04:00 97.3 F L 89 38 H 90/66 L 95 Nasal Cannula 2 10/16/25 03:00 Room Air 10/16/25 02:58 98 H 26 H 110/68 96 10/16/25 02:35 98 H 25 H 109/58 L 95 Room Air 12/12/25 02:28 148/87 H 10/16/25 02:20 147/83 H 10/16/25 02:15 157/95 H 10/16/25 01:57 91 H 32 H 141/84 H 97 Room Air 10/16/25 01:45 119/83 10/16/25 01:00 59 L 29 H 105/66 L 93 L Room Air 10/16/25 01:00 Room Air 10/16/25 00:07 93 H 10/16/25 00:00 98.0 F 95 H 22 97/63 L 95 Room Air 10/16/25 00:00 95 Room Air 10/15/25 23:00 96 H 24 93/62 L 95 Room Air 10/15/25 22:48 Room Air 10/15/25 22:00 99 H 23 103/70 L 95 Room Air 10/15/25 21:01 96 H 23 101/64 L 96 Room Air 10/15/25 21:00 Room Air 10/15/25 20:45 103/63 L 10/15/25 20:15 97.6 F 90 23 97/61 L 97 Room Air 10/15/25 20:00 100 H 10/15/25 20:00 97 Room Air 10/15/25 19:00 99 H 26 H 92/56 L 97 Room Air 10/15/25 18:45 96 H 29 H 93/65 L 10/15/25 18:37 Room Air 10/15/25 18:32 88 42 H 119/89 91 L Room Air 10/15/25 18:15 94 H 24 102/63 L 96 Room Air 10/15/25 18:00 97.3 F L 95 H 23 97/65 L 97 Room Air 10/15/25 17:45 96 H 31 H 93/71 L 95 Room Air 10/15/25 17:31 100 H 38 H 99/59 L 94 L Room Air 10/15/25 17:15 100/64 L 10/15/25 17:00 98 H 30 H 103/65 L 96 Room Air 10/15/25 17:00 Room Air 10/15/25 16:45 94 H 23 102/65 L 96 Room Air 10/15/25 16:30 96 H 22 97/55 L 96 Room Air 10/15/25 16:15 95 H 31 H 96/51 L 96 Room Air 10/15/25 16:00 99 H 32 H 98/47 L 95 Room Air 10/15/25 16:00 100 H 10/15/25 16:00 Room Air 10/15/25 15:45 96 H 22 105/64 L 95 Room Air 10/15/25 15:25 97 H 23 95/58 L 96 Room Air 10/15/25 15:20 98 H 27 H 92/52 L 95 Room Air 10/15/25 15:19 98 H 24 90/55 L 96 Room Air 10/15/25 15:10 105 H 23 84/62 L 91 L Room Air 10/15/25 15:05 100 H 26 H 105/64 L 96 Room Air 10/15/25 15:00 Room Air 10/15/25 15:00 103 H 31 H 101/57 L 96 Room Air 10/15/25 14:55 102 H 27 H 91/52 L 96 Room Air 10/15/25 14:50 101 H 25 H 93/54 L 96 Room Air 10/15/25 14:45 101 H 21 89/42 L 94 L Room Air 10/15/25 14:40 99 H 21 79/41 L 94 L Room Air 10/15/25 14:30 105 H 28 H 81/46 L 93 L Room Air 10/15/25 14:25 102 H 23 82/50 L 95 Room Air 10/15/25 14:20 105 H 27 H 78/43 L 94 L Room Air 10/15/25 14:15 105 H 28 H 82/53 L 94 L Room Air 10/15/25 14:10 104 H 24 85/47 L 94 L Room Air 10/15/25 14:06 95 H 29 H 82/50 L 10/15/25 14:00 122 H 31 H 109/58 L 93 L Room Air 10/15/25 13:55 102 H 24 97/53 L 94 L Room Air 10/15/25 13:50 106 H 25 H 85/59 L 94 L Room Air 10/15/25 13:45 105 H 26 H 99/55 L 94 L Room Air 10/15/25 13:40 105 H 24 87/52 L 94 L Room Air Intake and Output 10/16/25 10/16/25 10/16/25 03:59 11:59 19:59 Intake Total 824.25 / 4117.666 1717.499 / 4117.666 8.527 / 8.527 Output Total 270 / 945 Balance 554.25 / 3172.666 1717.499 / 3172.666 -32.473 / -32.473 Intake: Intake, Oral Amount 480 / 598 Intake, Total IV Amount 344.25 / 3519.666 1717.499 / 3519.666 8.527 / 8.527 0.9 % Sodium Chloride 1000ML 500 / 500 500 ml @ 999 mls/hr IV .Q31M [facility] Rx#:[id number] Heparin Sodium,Porcine/D5w 500 25.9 / 25.9 ml @ 1,050 UNITS/HR 21 mls/hr IV .[id number] [facility] Rx#:[id number] Insulin Regular, Human 100 unit 16.581 / 16.581 8.527 / 8.527 In 0.9 % Sodium Chloride 100 ml @ 5 UNIT/HR 5.05 mls/hr IV . Q20H [facility] Rx#:[id number] Norepinephrine Bitartrate/D5w 8 294.25 / 729.407 33.907 / 729.407 mg In 250 ml @ 22 MCG/MIN 41. 25 mls/hr IV .Q6H4M [facility] Rx#: [id number] Piperacillin/Tazo 3.375 gm In 0 50 / 150 50 / 150 .9 % Sodium Chloride 50 ml @ 100 mls/hr IV Q6H [facility] Rx#: [id number] Sodium Chloride 0.45 % 1,000 ml 1000 / 1000 @ 125 mls/hr IV .Q8H [facility] Rx#: [id number] Vasopressin 40 unit In 0.9 % 91.111 / 91.111 Sodium Chloride 100 ml @ 0.04 UNITS/MIN 6.12 mls/hr IV . [id number] [facility] Rx#:[id number] Output: Output, Urine Amount 270 / 920 Output, Urine Amount (Catheter) [place] Other: Number of Unmeasured Voids 1 0 Number of Bowel Movements 1 1 Weight 140 lb 7 oz Laboratory Results - last 24 hr 10/15/25 00:39: Cortisol 4.8 L 10/15/25 03:18: A. baumannii (PCR) Not detected 10/15/25 03:18: A. baumannii (PCR) Not detected, Bacteroides fragilis Not detected 10/15/25 03:18: Bacteroides fragilis Not detected, Rupali albicans (PCR) Not detected 10/15/25 03:18: Rupali albicans (PCR) Not detected, Rupali auris (PCR) Not detected 10/15/25 03:18: Rupali auris (PCR) Not detected, C. glabrata (PCR) Not detected 10/15/25 03:18: C. glabrata (PCR) Not detected, C. krusei (PCR) Not detected 10/15/25 03:18: C. krusei (PCR) Not detected, C. parapsilosis (PCR) Not detected 10/15/25 03:18: C. parapsilosis (PCR) Not detected, C. tropicalis (PCR) Not detected 10/15/25 03:18: C. tropicalis (PCR) Not detected, Cryptococcus neoformans PCR Not detected 10/15/25 03:18: Cryptococcus neoformans PCR Not detected, Enterobacterales (PCR) Not detected 10/15/25 03:18: Enterobacterales (PCR) Not detected, Enterococc faecalis PCR Not detected 10/15/25 03:18: Enterococc faecalis PCR Not detected, Enterococc faecium PCR Not detected 10/15/25 03:18: Enterococc faecium PCR Not detected, E. coli (PCR) Not detected 10/15/25 03:18: E. coli (PCR) Not detected, H. influenzae DNA Not detected 10/15/25 03:18: H. influenzae DNA Not detected, Klebsiella aerogenes (PCR) Not detected 10/15/25 03:18: Klebsiella aerogenes (PCR) Not detected, Klebsiella oxytoca PCR Not detected 10/15/25 03:18: Klebsiella oxytoca PCR Not detected, K. pneumoniae group (PCR) Not detected 10/15/25 03:18: K. pneumoniae group (PCR) Not detected, List. monocytogenes PCR Not detected 10/15/25 03:18: List. monocytogenes PCR Not detected, N. meningitidis (PCR) Not detected 10/15/25 03:18: N. meningitidis (PCR) Not detected, Proteus species (PCR) Not detected 10/15/25 03:18: Proteus species (PCR) Not detected, Salmonella spp. (PCR) Not detected 10/15/25 03:18: Salmonella spp. (PCR) Not detected, Serratia marcescens PCR Not detected 10/15/25 03:18: Serratia marcescens PCR Not detected, Staphylococcus sp PCR Not detected 10/15/25 03:18: Staphylococcus sp PCR Not detected, Staph aureus (PCR) Not detected 10/15/25 03:18: Staph aureus (PCR) Not detected, mecA/C & MREJ Resist Gene Not applicable 10/15/25 03:18: mecA/C & MREJ Resist Gene Not applicable, mecA/C-Methicil Resis Gene Not applicable 10/15/25 03:18: mecA/C-Methicil Resis Gene Not applicable, Staph epidermidis (PCR) Not detected 10/15/25 03:18: Staph epidermidis (PCR) Not detected, Staph lugdunensis (TEM-PCR) Not detected 10/15/25 03:18: Staph lugdunensis (TEM-PCR) Not detected, S. maltophilia (PCR) Not detected 10/15/25 03:18: S. maltophilia (PCR) Not detected, Streptococcus sp PCR Detected A 10/15/25 03:18: Streptococcus sp PCR Detected A, S.agalactiae Grp B EL Not detected 10/15/25 03:18: S.agalactiae Grp B EL Not detected, Strep pneumoniae (PCR) Detected A 10/15/25 03:18: Strep pneumoniae (PCR) Detected A, S. pyogenes GrpA EL Not detected 10/15/25 03:18: S. pyogenes GrpA EL Not detected, P. aeruginosa (PCR) Not detected 10/15/25 03:18: P. aeruginosa (PCR) Not detected, Shavonne/B-Vanco Res Genes Not applicable 10/15/25 03:18: Shavonne/B-Vanco Res Genes Not applicable, blaIMP Car res Gene PCR Not applicable 10/15/25 03:18: blaIMP Car res Gene PCR Not applicable, KPC-Carbap Res Gene PCR Not applicable 10/15/25 03:18: KPC-Carbap Res Gene PCR Not applicable, blaNDM Car Res Gene PCR Not applicable 10/15/25 03:18: blaNDM Car Res Gene PCR Not applicable, OXA-48 Carbapenem Resis Gene (PCR) Not applicable 10/15/25 03:18: OXA-48 Carbapenem Resis Gene (PCR) Not applicable, blaVIM Car Res Gene PCR Not applicable 10/15/25 03:18: blaVIM Car Res Gene PCR Not applicable, CTX-M Gene Resistance (PCR) Not applicable 10/15/25 03:18: CTX-M Gene Resistance (PCR) Not applicable, MCR-1 Resistance Gene Not applicable 10/15/25 03:18: MCR-1 Resistance Gene Not applicable 10/15/25 16:56: POC Glucose 333 H* 10/15/25 17:08: Lactate 4.9 H 10/15/25 19:50: POC Glucose 331 H* 10/15/25 : Urine Color Yellow, Urine Appearance Clear, Urine pH 6.0, Ur Specific [place] 1.010, Urine Protein 1+ A, Urine Glucose (UA) 2+, Urine Ketones Negative, Urine Blood 1+ A, Urine Nitrate Negative, Urine Bilirubin Negative, Urine Urobilinogen 0.2, Ur Leukocyte Esterase Negative, Urine RBC Occasional, Urine WBC 3-5, Ur Squamous Epith Cells Occasional, Urine Bacteria Trace 10/16/25 03:30: WBC 10.3 D, RBC 3.92 L, Hgb 9.5 L, Hct 33.2 L, MCV 84.7, MCH 24.2 L, MCHC 28.6 L, RDW 23.0 H, Plt Count 255, MPV 10.8 H, Neut % (Auto) 80.1 H, Lymph % (Auto) 3.4 L, [place] % (Auto) 3.5, Eos % (Auto) 0.0 L, Baso % (Auto) 0.1, Neut # (Auto) 8.3 H, Lymph # (Auto) 0.4 L, [place] # (Auto) 0.4, Eos # (Auto) 0.0, Baso # (Auto) 0.0, Total Counted 100, Neutrophils % (Manual) 75, Lymphocytes % (Manual) 25, Platelet Estimate Normal, RBC Morphology Not Reportable, Hypochromasia 1+, Sodium 137, Potassium 5.6 H D, Chloride 106, Carbon Dioxide 10 L D, Anion Gap 26.6 H, BUN 39 H, Creatinine 1.70 H D, Estimated Creat Clear 32, Estimated GFR 40 L, Est GFR ( Amer) 48 L, Glucose 246 H, Lactate 7.4 H, Calcium 7.4 L, Total Bilirubin 0.7, Direct Bilirubin 0.3, Conjugated Bilirubin 0.0, Indirect Bilirubin 0.4, Unconjugated Bilirubin 0.4, AST 2453 H* D, ALT 1719 H*, Alkaline Phosphatase 76, Total Protein 5.6 L, Albumin 3.2 L D 10/16/25 04:46: PT 12.7 H, INR 1.16 H, APTT 27.8 L, VBG pH 7.07 L, VBG pCO2 31.1 L, VBG pO2 62.4 H, VBG HCO3 8.8 L, VBG Total CO2 9.8 L, VBG O2 Saturation 83.6 H, VBG Base Excess -21.3 L, VBG Lactic Acid 8.6 H 10/16/25 05:30: POC Glucose 279 H 10/16/25 06:00: Specimen Source R radial, O2 % 6lpm, ABG pH 7.23 L*, ABG pCO2 29.3 L, ABG pO2 88.0, ABG HCO3 11.9 L, ABG Total CO2 12.8 L, ABG O2 Saturation 95, ABG Base Excess -15.8 L, Mahad Test N/a, ABG Lactate 6.1 H 10/16/25 06:28: POC Glucose 270 H 10/16/25 07:15: WBC 11.0 H, RBC 3.38 L, Hgb 8.2 L D, Hct 27.9 L, MCV 82.5, MCH 24.3 L, MCHC 29.4 L, RDW 22.4 H, Plt Count 188 D, MPV 9.8, Neut % (Auto) 82.3 H, Lymph % (Auto) 3.2 L, [place] % (Auto) 1.7, Eos % (Auto) 0.0 L, Baso % (Auto) 0.7, Neut # (Auto) 9.0 H, Lymph # (Auto) 0.4 L, [place] # (Auto) 0.2, Eos # (Auto) 0.0, Baso # (Auto) 0.1, APTT 28.3 L, Sodium 138, Potassium 5.3 H, Chloride 106, Carbon Dioxide 11 L, Anion Gap 26.3 H, BUN 44 H, Creatinine 1.90 H, Estimated Creat Clear 31, Estimated GFR 35 L, Est GFR ( Amer) 42 L, Glucose 172 H D, Calcium 6.7 L, Total Bilirubin 0.7, AST 4315 H* D, ALT 2794 H*, Alkaline Phosphatase 75, NT-Pro-B Natriuret Pep 32724 H, Total Protein 5.5 L, Albumin 3.0 L, Globulin 2.5, Albumin/Globulin Ratio 1.2 10/16/25 07:28: POC Glucose 205 H 10/16/25 07:45: Lactate 5.3 H, Ammonia < 9 L 10/16/25 08:28: POC Glucose 122 H 10/16/25 09:26: POC Glucose 87 10/16/25 10:30: Lactate 5.4 H 10/16/25 12:23: POC Glucose 117 H 10/16/25 12:30: Urine Color Yellow, Urine Appearance Slightly cloudy, Urine pH 6.5, Ur Specific [place] 1.025, Urine Protein 2+ A, Urine Glucose (UA) Negative, Urine Ketones Negative, Urine Blood 3+ A, Urine Nitrate Positive A, Urine Bilirubin Negative, Urine Urobilinogen 0.2, Ur Leukocyte Esterase Negative, Urine RBC 10-20, Urine WBC 3-5, Ur Squamous Epith Cells Occasional, Urine Bacteria 2+ I & O for Labs for Last 24 Hours: Intake & Output 10/14/25 10/15/25 10/16/25 10/17/25 11:59 11:59 11:59 11:59 Intake Total 3378.187 / 3378.187 4117.666 / 4117.666 8.527 / 8.527 Output Total 225 / 225 920 / 945 41 / 41 Balance 3153.187 / 3153.187 3197.666 / 3172.666 -32.473 / -32.473 Weight 129 lb 4.782 oz 140 lb 7 oz Microbiology Reports for the Last 24 Hours: Microbiology 10/15/25 03:18 Blood Blood Culture - Preliminary Gram Positive Cocci 10/15/25 03:18 Blood Blood Culture - Preliminary Gram Positive Cocci Head: Present other (cochlear implant) ENT: Present mucous membranes moist (NG) Neck: Present normal inspection Respiratory: Present decreased breath sounds; Absent respiratory distress Cardiac: Present Reg Rate and Rhythm GI: Present soft; Absent distention Rectal (male): Present deferred (male): Present normal inspection Extremities: Absent edema Skin: Present intact Neuro: Present moves all extremities; Absent oriented x 3 (confused and agitated) Assessment and Plan *Assessment and plan (1) Gram positive septicemia: Status: Acute Category: Medical Code(s): A41.89 - Other specified sepsis (2) Encephalopathy acute: Status: Acute Category: Medical Code(s): G93.40 - Encephalopathy, unspecified (3) Shock liver: Status: Acute Category: Medical Code(s): K72.00 - Acute and subacute hepatic failure without coma (4) Transaminitis: Status: Acute Category: Medical Code(s): R74.01 - Elevation of levels of liver transaminase levels (5) Adrenal insufficiency: Status: Acute Category: Medical Code(s): E27.40 - Unspecified adrenocortical insufficiency (6) Abdominal pain: Status: Acute Category: Medical Code(s): R10.9 - Unspecified abdominal pain (7) Acidosis, lactic: Status: Acute Category: Medical Code(s): E87.20 - Acidosis, unspecified (8) Anemia: Status: Acute Category: Medical Code(s): D64.9 - Anemia, unspecified (9) Frailty: Status: Acute Category: Medical Code(s): R54 - Age-related physical debility (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(s): 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 (11) Autoimmune hepatitis: Status: Acute Category: Medical Code(s): K75.4 - Autoimmune hepatitis (12) Compound heterozygous hemochromatosis type 1: Status: Acute Category: Medical Code(s): E83.110 - Hereditary hemochromatosis (13) Leukopenia: Status: Acute Qualifiers: Leukopenia type: unspecified Qualified Code(s): D72.819 - Decreased white blood cell count, unspecified Category: Medical Code(s): D72.819 - Decreased white blood cell count, unspecified (14) 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 Category: Medical Code(s): Z96.21 - Cochlear implant status (15) Diabetes: Status: Chronic Qualifiers: Diabetes mellitus type: type 2 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 Diabetes mellitus complication status: without complication Qualified Code(s): E11.9 - Type 2 diabetes mellitus without complications; Z79.4 - termination clerk (current) use of insulin Category: Medical Code(s): E11.9 - Type 2 diabetes mellitus without complications (16) Hypertension: Status: Chronic Qualifiers: Hypertension type: essential hypertension Qualified Code(s): I10 - Essential (primary) hypertension Category: Medical Code(s): I10 - Essential (primary) hypertension (17) Immunosuppressed status: Status: Acute Category: Medical Code(s): D84.9 - Immunodeficiency, unspecified (18) Hemochromatosis: Status: Acute Qualifiers: Hemochromatosis type: hereditary Qualified Code(s): E83.110 - Hereditary hemochromatosis Category: Medical Code(s): E83.119 - Hemochromatosis, unspecified (19) ILD (interstitial lung disease): Status: Acute Category: Medical Code(s): J84.9 - Interstitial pulmonary disease, unspecified (20) ONEIL (acute kidney injury): Status: Acute Category: Medical Code(s): N17.9 - Acute kidney failure, unspecified Plan Antibiotics. Adjust fluid and electrolyte balance. Monitor encephalopathy and treat agitation.
[2025-10-16 13:58] LABS: VBG HCO3 14.3 mmol/L (23-30); VBG PCO2 27.6 mmol/L (35-51); VBG PH 7.33 mmol/L (7.31-7.41); VBG PO2 35.8 mmol/L (28-40)
[2025-10-16 14:01] LABS: Hematocrit 26.0 % (42.0-52.0); Hemoglobin 7.7 g/dL (14.1-18.0); Immature Granulocytes % 16.8 %; Mean Corpuscular HGB Conc 29.6 g/dL (31.8-35.4); Mean Corpuscular Hemoglobin 24.1 pg (27.0-31.2); Mean Corpuscular Volume 81.5 fl (80-94); Nucleated Red Blood Cells % 0.9 %; Platelet Count 168 K/mm3 (142-424); Red Blood Count 3.19 M/mm3 (4.60-6.20); Red Cell Distribution Width-SD 66.0 fL; White Blood Count 10.6 K/mm3 (4.8-10.8)
[2025-10-16 14:01] LABS: Lactate Venous 4.3 mmol/L (0.4-2.0)
[2025-10-16 14:05] LABS: Albumin Level 3.1 g/dl (3.5-5.0); Chloride 106 mmol/L (98-107); Potassium 5.7 mmoL/L (3.5-5.1); Sodium 139 mmol/L (136-145)
[2025-10-16 14:08] LABS: Albumin/Globulin Ratio 1.2 (1.1-1.8); Alkaline Phosphatase 72 U/L (38-126); Anion Gap 22.7 mEq/L (5-15); Bilirubin,Total 0.9 mg/dl (0.2-1.3); Blood Urea Nitrogen 49 mg/dl (9-20); Calcium 6.2 mg/dl (8.4-10.2); Carbon Dioxide 16 mmol/L (22.0-30.0); Creatinine Clearance Estimated 28 mL/min (50-200); Creatinine,Serum 2.10 mg/dl (0.66-1.25); Estimated Glomerular Filt Rate 31 ml/min (>60); GFR (African American) 38 ML/MIN (>60); Globulin 2.5 g/dL (1.3-3.2); Glucose 87 mg/dl (74-100); Total Protein,Serum 5.6 g/dl (6.3-8.2)
[2025-10-16 14:28] LABS: Anisocytosis 1+; Hypochromasia 2+; Total Cells Counted 100
[2025-10-16 14:30] LABS: Alanine Aminotransferase 3758 U/L (12-78); Aspartate Amino Transferase 6407 U/L (17-59)
--- NOTE | 2025-10-16 14:35 | PC.NURSE ---
Addendum entered by Calista Decker RN 10/16/25 15:51: Dr. Cantrell states he would like for patients NG to be clamped at this time. Original Note: Dr. Cantrell notified of patients lab results at this time. New orders received. Dr. Cantrell states he would like for the patients blood sugar to be checked again in two hours. Continuation of care plan.
[2025-10-16] MEDS: CALCIUM GLUC IN NACL, ISO-OSM 1 GM/50 ML BAG IV (14:53)
[2025-10-16] MEDS: DEXTROSE 50% 50ML SYRINGE (CRASH CART) 50 ML IV (14:55)
--- NOTE | 2025-10-16 15:00 | PC.NURSE ---
Dr. Cantrell states Dr. Crawford would like to transfer patient. Continuation of care plan.
--- NOTE | 2025-10-16 15:15 | PC.NURSE ---
at bedside. Continuation of care plan.
--- NOTE | 2025-10-16 15:16 | CARE MANAGER ---
Contacted Dr. Almanzar to discuss patient and recent lab values. He states he would like Dr. Cantrell's opinion. Contacted Dr. Cantrell and discussed what GI note said as well as concerns for increasing liver enzymes. He states he will contact Dr. Almanzar. Dr. Almanzar informed me he will attempt to transfer patient.
[2025-10-16] MEDS: MORPHINE 2MG/ML SYRINGE 1 MG IV (15:30)
[2025-10-16 15:44] LABS: INR 1.34 (0.9-1.1); Prothrombin Time 14.6 seconds (10.1-12.5)
[2025-10-16] MEDS: FUROSEMIDE 40MG/4ML VIAL 40 MG IV (16:32)
[2025-10-16 16:41] LABS: POC Glucose,Bedside 100 gm/dL (70-110)
[2025-10-16 16:41] LABS: POC Glucose,Bedside 223 gm/dL (70-110)
--- NOTE | 2025-10-16 16:47 | PC.NURSE ---
NG removed per . NG tube intact. Patient tolerated well. Continuation of care plan.
--- NOTE | 2025-10-16 18:26 | PC.NURSE ---
Report called to REG Grigsby at [facility].
--- NOTE | 2025-10-16 18:30 | PC.NURSE ---
Patient transferred to [facility] via stretcher with EMS with IV drip infusing at this time.
[2025-10-16 18:44] LABS: POC Glucose,Bedside 207 gm/dL (70-110)
--- NOTE | 2025-10-16 20:12 | XR_ITS ---
PROCEDURE INFORMATION: Exam: XR Chest Exam date and time: 10/16/2025 5:34 AM Age: 75 years old Clinical indication: Shortness of breath TECHNIQUE: Imaging protocol: Radiologic exam of the chest. Views: 1 view. COMPARISON: CR XR CHEST PORTABLE 10/15/2025 1:19 PM FINDINGS: Tubes, catheters and devices: The left subclavian vein central venous catheter is in stable position. Lungs: There has been a slight increase in the bibasilar infiltrates versus atelectasis when compared to the prior study. Pleural spaces: Stable small bilateral pleural effusions. Heart/Mediastinum: The heart size is stable. Bones/joints: Unremarkable. IMPRESSION: Stable small bilateral pleural effusions but increasing infiltrates versus atelectasis at each lung base.
[2025-10-16 21:33] LABS: Reflex Lactic Add Lactic Reflex
[2025-10-17 08:13] LABS: Cytomegalovirus (CMV) Ab, IgM <30.0 AU/mL (0.0-29.9)
[2025-10-19 15:11] LABS: Clinical Relevance Notes (.); Fungitell Value < 31.25 pg/mL (.); Interpretation Notes (.)
[2025-10-22 14:10] LABS: POC Glucose,Bedside 102 gm/dL (70-110)
[2025-10-22 14:10] LABS: POC Glucose,Bedside 93 gm/dL (70-110)
== END 2025-10-16 18:30 | disposition short-term general hospital (02) | DRG 871 ==
LOC: ER 02:10 → 2ND 02:34 → ICU 08:18 → 2ND 09:31
PROVIDERS: Internal Medicine Gastroenterology; Internal Medicine Pulmonary Disease; Nurse Practitioner Acute Care; Surgery; Admitting Provider Internal Medicine Adolescent Medicine; Emergency Provider Emergency Medicine; PCP Family Medicine; Visit Provider Family Medicine
DX: A40.9 Streptococcal sepsis, unspecified (principal); G93.41 Metabolic encephalopathy; I81 Portal vein thrombosis; J96.21 Acute and chronic respiratory failure with hypoxia; K72.00 Acute and subacute hepatic failure without coma; R65.21 Severe sepsis with septic shock; N17.0 Acute kidney failure with tubular necrosis; K76.6 Portal hypertension; E27.40 Unspecified adrenocortical insufficiency; E87.20 Acidosis, unspecified; E24.2 Drug-induced Cushing's syndrome; D84.9 Immunodeficiency, unspecified; J84.9 Interstitial pulmonary disease, unspecified; N17.9 Acute kidney failure, unspecified; K55.1 Chronic vascular disorders of intestine; N13.2 Hydronephrosis with renal and ureteral calculous obstruction; K29.80 Duodenitis without bleeding; Z79.4 Long term (current) use of insulin; I10 Essential (primary) hypertension; D64.9 Anemia, unspecified; T38.0X5A Adverse effect of glucocorticoids and synthetic analogues, initial encounter; K75.4 Autoimmune hepatitis; E83.110 Hereditary hemochromatosis; Z96.21 Cochlear implant status; Z79.84 Long term (current) use of oral hypoglycemic drugs; Z79.890 Hormone replacement therapy; Z87.891 Personal history of nicotine dependence; I48.0 Paroxysmal atrial fibrillation; E86.0 Dehydration; K52.9 Noninfective gastroenteritis and colitis, unspecified; I95.9 Hypotension, unspecified; R45.1 Restlessness and agitation; E11.65 Type 2 diabetes mellitus with hyperglycemia
CPT/HCPCS: 0223U; 36415; 36556; 36600; 51702; 71045; 71275; 74018; 74174; 80048; 80053; 80061; 80076; 81001; 82140; 82533; 82803; 82962; 83605; 83615; 83690; 83735; 83880; 84484; 85007; 85014; 85018; 85025; 85610; 85730; 86140; 86645; 86665; 86803; 86850; 87040; 87077; 87086; 87154; 87186; 87385; 87389; 87449; 87507; 93005; 93975; 99285; C1751; J0131; J0612; J1308; J1630; J1644; J1720; J1885; J1938; J2003; J2060; J2270; J2405; J2543; J2550; J2598; J2919; J3373; J3480; J7030; J7042; J7050; J7120; Q9967